=== PATIENT | female | born 1945 | race Caucasian/White ===

== ENCOUNTER 2016-06-30 15:27 | Outpatient (RCR) | payer MEDICARE, OTHER ==
--- OUTSIDE RECORDS SUMMARY | 2016-05-26 08:21 | XMS REPORT | Continuity of Care Document ---
Author Author [facility] Organization [facility] Address Unknown Phone Unavailable Care Team Providers Care Drive In Waiter/Waitress Name Role Phone Philipp Gonzalez PCP [phone] Source Comments Some departments are not documenting in the electronic medical record. If you do not see the information that you expected, contact Release of Information in the Health Information Management department at [phone] for further assistance in locating additional records.[facility] Active Allergies and Adverse Reactions Allergen Noted Date Severity Reactions Comments Lisinopril 09/12/2015 Low UNKNOWN Sulfa (Sulfonamide 09/12/2015 Low UNKNOWN Antibiotics) Current Medications Prescription Sig. Disp. Refills Start End Date Status Date valsartan (DIOVAN) 320 mg Take 320 mg by mouth Active tablet daily. polycarbophil (FIBERCON) Take 625 mg by mouth Active 625 mg tablet twice daily. metoprolol (LOPRESSOR) Take 100 mg by mouth Active 100 mg tablet twice daily. MULTIVITAMIN (MULTIPLE Take 1 Tab by mouth Active VITAMINS DAILY PO) daily. Lactobacillus rhamnosus Take 1 Cap by mouth daily Active GG (LACTOBACILLUS with breakfast. RHAMNOSUS (GG)) 15 billion cell cpSP cholecalciferol (VITAMIN Take 1,000 Units by mouth Active D-3) 1,000 units tablet daily. amLODIPine (NORVASC) 10 Take 10 mg by mouth Active mg tablet daily. aspirin EC 81 mg tablet Take 81 mg by mouth Active daily. calcium gluconate 1,000 mEq daily. Active dicyclomine (BENTYL) 10 Take 10 mg by mouth four Active mg capsule times daily. omega 0-ytm-obo-fish oil Take 3 Caps by mouth Active 300-1,000 mg capsule daily. pantoprazole DR Take 40 mg by mouth Active (PROTONIX) 40 mg tablet daily. simvastatin (ZOCOR) 20 mg Take 20 mg by mouth at Active tablet bedtime daily. buPROPion (WELLBUTRIN) 75 Take 75 mg by mouth twice Active mg tablet daily. Active Problems Problem Noted Date Tobacco abuse 09/17/2015 Lung mass Overview: PREM Dyspnea CAD (coronary artery disease) Essential hypertension Hyperlipidemia RBBB Social History Tobacco Use Types Packs/Day Years Used Date Current Every Day Smoker Cigarettes 0.5 Smokeless Tobacco: Never Used Last Filed Vital Signs Vital Sign Reading Time Taken Blood Pressure 155/71 11/20/2015 2:15 PM CDT Pulse 57 11/20/2015 2:15 PM CDT Temperature 36.5 C (97.7 F) 11/20/2015 10:57 AM CDT Respiratory Rate - - Height 1.702 m (5' 7.01") 10/31/2015 3:28 PM CDT Weight 71.668 kg (158 lb) 10/31/2015 3:28 PM CDT Body Mass Index 24.74 10/31/2015 3:28 PM CDT Oxygen Saturation 100% 11/20/2015 2:15 PM CDT Plan of Care Health Maintenance Due Date Last Done Comments Hepatitis C Screening 1945 Physical (Comprehensive) 01/16/1952 Exam Pertussis Vaccine 01/16/1956 Tetanus Vaccine 1962 Breast Cancer Screening 1985 Colorectal Cancer 1995 Screening Shingles Vaccine 2005 Osteoporosis Screening 2010 Prevnar/Pneumovax (#1) 2010 Influenza Vaccine 04/02/2016 Results from Last 3 Months Not on file
[2016-05-26 08:49] LABS: BASOPHILS % (AUTO) 0 % (0-10); EOSINOPHILS # (AUTO) 0.1 10^3/uL (0.0-0.3); EOSINOPHILS % (AUTO) 2 % (0-10); LYMPHOCYTES # (AUTO) 1.6 X 10^3 (1.0-4.0); LYMPHOCYTES % (AUTO) 30 % (12-44); MEAN CORPUSCULAR HEMOGLOBIN 32 PG (25-34); MEAN CORPUSCULAR HGB CONC 34 G/DL (32-36); MEAN CORPUSCULAR VOLUME 96 FL (80-99); MEAN PLATELET VOLUME 9.5 FL (7.4-10.4); MONOCYTES # (AUTO) 0.4 X 10^3 (0.0-1.0); MONOCYTES % (AUTO) 8 % (0-12); NEUTROPHILS # (AUTO) 3.2 X 10^3 (1.8-7.8); NEUTROPHILS % (AUTO) 61 % (42-75); PLATELET COUNT 271 10^3/uL (130-400); RED BLOOD COUNT 4.45 10^6/uL (4.35-5.85); WHITE BLOOD COUNT 5.3 10^3/uL (4.3-11.0)
[2016-05-26 09:28] LABS: ALBUMIN 3.9 G/DL (3.2-4.5); BILIRUBIN,TOTAL 0.2 MG/DL (0.1-1.0); CALCIUM 9.1 MG/DL (8.5-10.1); CREATININE SERUM 0.92 MG/DL (0.60-1.30); POTASSIUM 4.2 MMOL/L (3.6-5.0); TOTAL PROTEIN 6.3 G/DL (6.4-8.2)
[~2016-06-30 15:27] MED LIST: AMLO10TA82 PO; ASP81TEC PO; ASPI-624 PO; CALC1CAP8 PO; CALC390T PO; CHOL100011 PO; CHOL200018 PO; ESTR0.5T PO; ESTR1TAB24 PO; HYOS0.1216 PO; METO100T2 PO; MULT-358 PO; MULT-974 PO; OMEG1CAP51 PO; OMEG1CAP58 PO; OMEP20TA2 PO; PANT40TA PO; SIMV20TA3 PO; SUCR1TAB PO; SUSTENEX PO; VALS320T8 PO
== END 2016-08-24 | disposition home or self-care (01) ==
LOC: ONC 15:27
PROVIDERS: ATTEND Internal Medicine Hematology & Oncology
DX: C34.91 Malignant neoplasm of unspecified part of right bronchus or lung (principal); F17.210 Nicotine dependence, cigarettes, uncomplicated; I10 Essential (primary) hypertension; J44.9 Chronic obstructive pulmonary disease, unspecified
CPT/HCPCS: 36415; 80053; 85025; 99213

== ENCOUNTER → 2016-12-30 | Outpatient (CLI) | payer MEDICARE, OTHER ==
[~2016-12-30] MED LIST changes: +CATHETER FLUSH 10 ML SYR IV PRN; +IOHEXOL 350 MG/ML 100 ML (OMNIPAQUE 350) VIAL IV ONE; +NS 100 ML (IVPB) BAG IV ONE
--- NOTE | 2016-12-30 13:27 | Diagnostic Imaging Report ---
PROCEDURE: CT chest with contrast only. TECHNIQUE: Multiple contiguous axial images were obtained through the chest after administration of intravenous contrast. INDICATION: C34.10, upper lobe lung cancer. 75 mL of Omnipaque 350 is administered intravenously. Comparison exam of 06/29/16 is reviewed. FINDINGS: There is a 1 cm left upper lobe nodule which appears minimally larger compared to prior studies. The short axis measurement in the axial plane is 7 mm, similar to the prior exam; however, the craniocaudal measurement is 9 mm compared to 5 mm on the previous study. There is increased groundglass opacity around this lesion. Upper lobe predominant emphysema changes are seen. No new lung nodules or significant consolidation or mass. There is essentially stable borderline sized infracarinal lymph node measuring 1 cm and no significant hilar lymphadenopathy. No axillary lymphadenopathy. The thoracic aorta demonstrates normal caliber and enhancement. The central pulmonary arteries enhance normally. The heart size is near the upper limits of normal. There is a pectus excavatum deformity. Sections in the upper abdomen demonstrate no adrenal mass. The osseous structures demonstrate right convexity scoliosis and minimal degenerative changes. IMPRESSION: Suggestion of minimal enlargement in the left upper lobe nodule. There is also slight increase in the surrounding groundglass opacity. This could be from radiation changes if this patient had radiotherapy. Correlate with history. Dictated by: Dictated on workstation # [id number]
== END ==
LOC: RAD 07:28
PROVIDERS: ATTEND Internal Medicine Hematology & Oncology
DX: C34.12 Malignant neoplasm of upper lobe, left bronchus or lung (principal)
CPT/HCPCS: 71260

== ENCOUNTER 2017-01-05 08:10 | Outpatient (RCR) | payer MEDICARE, OTHER ==
[2016-11-24 09:02] LABS: BASOPHILS % (AUTO) 0 % (0-10); EOSINOPHILS # (AUTO) 0.1 10^3/uL (0.0-0.3); EOSINOPHILS % (AUTO) 2 % (0-10); LYMPHOCYTES # (AUTO) 1.7 X 10^3 (1.0-4.0); LYMPHOCYTES % (AUTO) 36 % (12-44); MEAN CORPUSCULAR HEMOGLOBIN 31 PG (25-34); MEAN CORPUSCULAR HGB CONC 33 G/DL (32-36); MEAN CORPUSCULAR VOLUME 95 FL (80-99); MEAN PLATELET VOLUME 10.1 FL (7.4-10.4); MONOCYTES # (AUTO) 0.5 X 10^3 (0.0-1.0); MONOCYTES % (AUTO) 10 % (0-12); NEUTROPHILS # (AUTO) 2.3 X 10^3 (1.8-7.8); NEUTROPHILS % (AUTO) 51 % (42-75); PLATELET COUNT 259 10^3/uL (130-400); RED BLOOD COUNT 4.72 10^6/uL (4.35-5.85); RED CELL DISTRIBUTION WIDTH 13.6 % (10.0-14.5); WHITE BLOOD COUNT 4.5 10^3/uL (4.3-11.0)
[2016-11-24 09:21] LABS: ALANINE AMINOTRANSFERASE 15 U/L (0-55); ALBUMIN 3.9 G/DL (3.2-4.5); ANION GAP 11 MMOL/L (5-14); ASPARTATE AMINO TRANSFERASE 20 U/L (5-34); BILIRUBIN,TOTAL 0.3 MG/DL (0.1-1.0); BLOOD UREA NITROGEN 20 MG/DL (7-18); BUN/CREATININE RATIO 25; CALCIUM 9.4 MG/DL (8.5-10.1); CARBON DIOXIDE 26 MMOL/L (21-32); CHLORIDE 105 MMOL/L (98-107); GFR ESTIMATED > 60; GLUCOSE 167 MG/DL (70-105); POTASSIUM 3.8 MMOL/L (3.6-5.0); SODIUM 142 MMOL/L (135-145); TOTAL PROTEIN 6.3 G/DL (6.4-8.2)
[~2017-01-05 08:10] MED LIST changes: -CATHETER FLUSH 10 ML SYR IV PRN; -IOHEXOL 350 MG/ML 100 ML (OMNIPAQUE 350) VIAL IV ONE; -NS 100 ML (IVPB) BAG IV ONE
== END 2017-02-22 | disposition home or self-care (01) ==
LOC: ONC 08:10
PROVIDERS: ATTEND Internal Medicine Hematology & Oncology
DX: C34.91 Malignant neoplasm of unspecified part of right bronchus or lung (principal); F17.210 Nicotine dependence, cigarettes, uncomplicated; I10 Essential (primary) hypertension; J44.9 Chronic obstructive pulmonary disease, unspecified
CPT/HCPCS: 80053; 82378; 85025; 99213

== ENCOUNTER → 2017-01-28 | Outpatient (CLI) | payer MEDICARE, OTHER ==
--- NOTE | 2017-01-28 19:33 | Diagnostic Imaging Report ---
Bilateral screening mammogram The current study was also evaluated with a Computer Aided Detection (CAD) system. INDICATION: Screening. No current complaints stated on the questionnaire. COMPARISON: 01/14/2016. FINDINGS: The breasts are composed of scattered fibroglandular densities. There are scattered benign-appearing calcifications. Allowing for technique and positional differences, no suspicious change is seen. IMPRESSION: No significant change. ACR BI-RADS Category 2: Benign findings. Result letter will be mailed to the patient. Note: At least 10% of breast cancer is not imaged by mammography. Dictated by: Dictated on workstation # [id number]
== END ==
LOC: RAD 07:19
PROVIDERS: ATTEND Nurse Practitioner Family
DX: Z12.31 Encounter for screening mammogram for malignant neoplasm of breast (principal)
CPT/HCPCS: 77067

== ENCOUNTER → 2017-03-23 | Outpatient (CLI) | payer MEDICARE, OTHER ==
[~2017-03-23] MED LIST changes: +CATHETER FLUSH 10 ML SYR IV PRN; +IOHEXOL 350 MG/ML 100 ML (OMNIPAQUE 350) VIAL IV ONE; +NS 100 ML (IVPB) BAG IV ONE
--- NOTE | 2017-03-23 12:50 | Diagnostic Imaging Report ---
PROCEDURE: CT chest with contrast only. TECHNIQUE: Multiple contiguous axial images were obtained through the chest after administration of intravenous contrast. INDICATION: Lung CA. FINDINGS: The previous CT chest exam of 12/30/2016 noted a 1.0 x 0.7 cm noncalcified nodule in the left upper lung. On this exam, that nodule now measures 1.5 x 1.3 cm. The increase in the size of this nodule does suggest that it is neoplastic in nature. The ground-glass density adjacent to the nodule seen previously is again visualized and not significantly changed. The lungs are otherwise clear. There is no new pulmonary nodule identified otherwise, and there is no sign of failure, pneumonia, or pleural effusion. The previous study also identified a 1 cm subcarinal lymph node. That finding is no different. There is no mediastinal or hilar adenopathy noted otherwise. The thyroid gland is unremarkable. The heart is stable in size. The aorta is not abnormally dilated. There is no defect within the pulmonary arteries to indicate a pulmonary embolus. There is no obvious breast mass. The sections through the upper abdomen fail to show any sign of an acute abnormality. The liver seems homogeneous. The bone windows again show multiple areas of sclerosis throughout the thoracic spine. These findings are probably degenerative in nature as they seem quite similar to the prior study. There is a pectus excavatum deformity. IMPRESSION: 1. The nodule in the left upper lung seen previously has increased in size. Consequently, this nodule should be considered neoplastic until proven otherwise. If further imaging is desired, then PET/CT would be recommended. 2. The overall appearance of the chest and upper abdomen is otherwise stable. There is no acute abnormality identified. 3. The areas of sclerosis involving the thoracic spine are probably degenerative in nature. If there is clinical concern regarding metastatic skeletal disease, then MRI would be recommended for additional study. Dictated by: Dictated on workstation # [id number]
== END ==
LOC: RAD 09:32
PROVIDERS: ATTEND Internal Medicine Hematology & Oncology
DX: R91.1 Solitary pulmonary nodule (principal); R93.7 Abnormal findings on diagnostic imaging of other parts of musculoskeletal system; C34.10 Malignant neoplasm of upper lobe, unspecified bronchus or lung
CPT/HCPCS: 71260

== ENCOUNTER 2017-04-27 08:24 | Outpatient (RCR) | payer MEDICARE, OTHER ==
[2017-03-23 09:15] LABS: BASOPHILS % (AUTO) 1 % (0-10); EOSINOPHILS # (AUTO) 0.1 10^3/uL (0.0-0.3); EOSINOPHILS % (AUTO) 2 % (0-10); LYMPHOCYTES # (AUTO) 1.8 X 10^3 (1.0-4.0); LYMPHOCYTES % (AUTO) 34 % (12-44); MEAN CORPUSCULAR HEMOGLOBIN 31 PG (25-34); MEAN CORPUSCULAR HGB CONC 33 G/DL (32-36); MEAN CORPUSCULAR VOLUME 95 FL (80-99); MEAN PLATELET VOLUME 9.4 FL (7.4-10.4); MONOCYTES # (AUTO) 0.4 X 10^3 (0.0-1.0); MONOCYTES % (AUTO) 8 % (0-12); NEUTROPHILS # (AUTO) 2.8 X 10^3 (1.8-7.8); NEUTROPHILS % (AUTO) 55 % (42-75); PLATELET COUNT 272 10^3/uL (130-400); RED BLOOD COUNT 4.44 10^6/uL (4.35-5.85); RED CELL DISTRIBUTION WIDTH 13.4 % (10.0-14.5); WHITE BLOOD COUNT 5.1 10^3/uL (4.3-11.0)
[2017-03-23 09:49] LABS: ALANINE AMINOTRANSFERASE 17 U/L (0-55); ALBUMIN 3.8 GM/DL (3.2-4.5); ANION GAP 8 MMOL/L (5-14); ASPARTATE AMINO TRANSFERASE 22 U/L (5-34); BILIRUBIN,TOTAL 0.4 MG/DL (0.1-1.0); BLOOD UREA NITROGEN 22 MG/DL (7-18); BUN/CREATININE RATIO 27; CALCIUM 9.7 MG/DL (8.5-10.1); CARBON DIOXIDE 26 MMOL/L (21-32); CHLORIDE 107 MMOL/L (98-107); CREATININE SERUM 0.81 MG/DL (0.60-1.30); GFR ESTIMATED > 60; GLUCOSE 124 MG/DL (70-105); POTASSIUM 4.6 MMOL/L (3.6-5.0); SODIUM 141 MMOL/L (135-145); TOTAL PROTEIN 6.4 GM/DL (6.4-8.2)
[~2017-04-27 08:24] MED LIST changes: -CATHETER FLUSH 10 ML SYR IV PRN; -IOHEXOL 350 MG/ML 100 ML (OMNIPAQUE 350) VIAL IV ONE; -NS 100 ML (IVPB) BAG IV ONE
== END 2017-05-01 | disposition home or self-care (01) ==
LOC: ONC 08:24
PROVIDERS: ATTEND Internal Medicine Hematology & Oncology
DX: C34.91 Malignant neoplasm of unspecified part of right bronchus or lung (principal); I10 Essential (primary) hypertension; J44.9 Chronic obstructive pulmonary disease, unspecified; F17.210 Nicotine dependence, cigarettes, uncomplicated; Z79.899 Other long term (current) drug therapy
CPT/HCPCS: 36415; 80053; 85025; 99213

== ENCOUNTER 2017-06-03 08:47 | Outpatient (RCR) | payer MEDICARE, OTHER ==
[2017-06-03 09:02] LABS: BASOPHILS % (AUTO) 0 % (0-10); EOSINOPHILS # (AUTO) 0.1 10^3/uL (0.0-0.3); EOSINOPHILS % (AUTO) 2 % (0-10); HEMATOCRIT 42 % (35-52); LYMPHOCYTES # (AUTO) 1.1 X 10^3 (1.0-4.0); LYMPHOCYTES % (AUTO) 22 % (12-44); MEAN CORPUSCULAR HEMOGLOBIN 32 PG (25-34); MEAN CORPUSCULAR HGB CONC 34 G/DL (32-36); MEAN CORPUSCULAR VOLUME 95 FL (80-99); MONOCYTES # (AUTO) 0.3 X 10^3 (0.0-1.0); MONOCYTES % (AUTO) 6 % (0-12); NEUTROPHILS # (AUTO) 3.5 X 10^3 (1.8-7.8); NEUTROPHILS % (AUTO) 70 % (42-75); PLATELET COUNT 277 10^3/uL (130-400); RED BLOOD COUNT 4.39 10^6/uL (4.35-5.85); RED CELL DISTRIBUTION WIDTH 13.5 % (10.0-14.5)
[2017-06-03 09:24] LABS: ALBUMIN 3.9 GM/DL (3.2-4.5); BILIRUBIN,TOTAL 0.5 MG/DL (0.1-1.0); CALCIUM 9.3 MG/DL (8.5-10.1); CREATININE SERUM 0.92 MG/DL (0.60-1.30); POTASSIUM 4.1 MMOL/L (3.6-5.0); TOTAL PROTEIN 6.5 GM/DL (6.4-8.2)
[2017-08-10] MEDS ORDERED: GLUC-116 PO (07:41)
[2017-08-10] MEDS ORDERED: L.AC1CAP6 PO (07:41)
[2017-08-10] MEDS ORDERED: ATOR10TA PO (07:41)
[2017-08-10] MEDS ORDERED: BUPR-168 PO (07:41)
[2017-08-10] MEDS ORDERED: DICY10CA12 PO (07:41)
== END 2017-09-01 | disposition home or self-care (01) ==
LOC: ONC 08:47
PROVIDERS: ATTEND Internal Medicine Hematology & Oncology
DX: C34.12 Malignant neoplasm of upper lobe, left bronchus or lung (principal); R91.1 Solitary pulmonary nodule; J44.9 Chronic obstructive pulmonary disease, unspecified; I10 Essential (primary) hypertension; I25.10 Atherosclerotic heart disease of native coronary artery without angina pectoris; E78.5 Hyperlipidemia, unspecified; I45.10 Unspecified right bundle-branch block; F17.210 Nicotine dependence, cigarettes, uncomplicated; Z79.82 Long term (current) use of aspirin; Z79.899 Other long term (current) drug therapy
CPT/HCPCS: 36415; 80053; 82378; 85025; 99213

== ENCOUNTER 2017-08-10 06:47 | Day surgery (SDC) | payer MEDICARE, OTHER ==
[~2017-08-10] VITALS: Ht 170.2 cm; Wt 69.4 kg
[2017-08-10] VITALS (11 sets, daily range): BP systolic 130–150; BP diastolic 63–82
[2017-08-10] MEDS ORDERED: LIDOCAINE 1% INJ 50 ML (XYLOCAINE) VIAL ONE (06:51)
[2017-08-10] MEDS ORDERED: NS IV 1000 ML 1,000 ML ONE (06:51)
[2017-08-10] MEDS ORDERED: HEParin (CATH LAB) 2,000 ML IV ONE (06:51)
--- OUTSIDE RECORDS SUMMARY | 2017-08-10 06:53 | XMS REPORT | Continuity of Care Document ---
Author Author [facility] Organization [facility] Address Unknown Phone Unavailable Care Team Providers Care Visitor Services Coordinator Name Role Phone [employer] Unavailable Unavailable Problems Medications Allergies, Adverse Reactions, Alerts Immunizations Results Vital Signs Encounters Location Location Details Encounter Type Encounter Number Reason For Visit Attending Provider ADM Date DC Date Status Source OUTPATIENT [id number] DONNY DAWN 11/20/20152015 Active [facility] OUTPATIENT [id number] RENETTA GONZALES 05/27/2017 Active [facility] OUTPATIENT [id number] 06/15/2017 Active [facility] INPATIENT [id number] RENETTA JANET 06/16/2017 Active [facility] EMERGENCY [id number] CHAD TWYLA 06/21/20172016 Active [facility] OUTPATIENT [id number] LEO MEEK 07/08/2017 07/08/2017 Active [facility] OUTPATIENT [id number] NICA ALVA 07/29/2017 Active [facility] SPECIMEN [id number] 07/30/2017 07/30/2017 Active [facility] CA SERIES [id number] JEFRY REDD 08/05/2017 08/05/2017 Active [facility] SPECIMEN [id number] RENETTA GONZALES 08/09/2017 Active [facility] SPECIMEN Active [facility] Procedures Plan of Care Social History Assessment and Plan Family History Advance Directives Functional Status
--- OUTSIDE RECORDS SUMMARY | 2017-08-10 06:54 | XMS REPORT | Encounter Summary ---
Author Author [facility] Organization [facility] Address Unknown Phone Unavailable Care Team Providers Care Stiff Straw Hat Washer Name Role Phone PCP Unavailable Encounter Details Date Type Department Care Team Description 07/30/2017 [facility] Ajit Puente MD Malignant neoplasm of Encounter [address] other [place] [address] [address] [place] [address] [phone] Social History Tobacco Use Types Packs/Day Years Used Date Current Every Day Smoker Cigarettes 0.5 Smokeless Tobacco: Never Used Alcohol Use Drinks/Week oz/Week Comments No Sex Assigned at Date Recorded Not on file as of this encounter Functional Status Functional Status Response Date of Assessment Does the patient have a hearing impairment: No 06/21/2017 as of this encounter Medications at Time of Discharge Medication Sig. Disp. Refills Start Date End Date acetaminophen (TYLENOL) Take 2 tablets by mouth 0 06/18/2017 500 mg tablet every 6 hours while awake. Max of 4,000 mg of acetaminophen in 24 hours. amLODIPine (NORVASC) 10 Take 10 mg by mouth daily mg tablet after lunch. aspirin EC 81 mg tablet Take 81 mg by mouth daily. atorvastatin (LIPITOR) 10 Take 10 mg by mouth every mg tablet 48 hours. buPROPion SR(+) Take only one tablet in 180 tablet 3 06/18/2017 (WELLBUTRIN-SR) 150 mg the AM on 06/19/17, then tabletIndications: start taking one tablet SMOKING CESSATION twice daily on 06/20/17 Indications: SMOKING CESSATION calcium carbonate/vitamin Take 1 tablet by mouth D-3 (OSCAL-500+D) 1250 daily. Calcium Carb mg/200 unit tablet 1250mg delivers 500mg elemental Ca cholecalciferol (VITAMIN Take 1,000 Units by mouth D-3) 1,000 units tablet daily. dicyclomine (BENTYL) 10 Take 10 mg by mouth three mg capsule times daily as needed. lactobacillus rhamnosus Take 1 capsule by mouth GG (LACTOBACILLUS as directed twice daily RHAMNOSUS (GG)) 15 with meals. billion cell cpSP capsule metoprolol (LOPRESSOR) Take 100 mg by mouth 100 mg tablet twice daily. nicotine polacrilex Place 1 lozenge inside 100 tablet 0 06/18/2017 (COMMIT) 4 mg lozenge cheek (side of mouth) as Needed. omega 1-rvc-kpr-fish oil Take 3 Caps by mouth 300-1,000 mg capsule daily. pantoprazole DR Take 40 mg by mouth (PROTONIX) 40 mg tablet daily. Simethicone 125 mg cap Take 1 capsule by mouth twice daily. valsartan (DIOVAN) 320 mg Take 320 mg by mouth tablet daily. vitamin E 100 unit Take 100 Units by mouth capsule daily. vitamins, multiple tablet Take 1 tablet by mouth daily. as of this encounter Plan of Treatment Date Type Specialty Care Team Description 07/08/2017 Procedure Pass Cardiothoracic Surgery Name Priority Associated Diagnoses Date/Time BRAF SINGLE NGS Malignant neoplasm of 07/28/2017 1:55 PM CIRCULAR KNIFE CUTTER MACHINE unspecified part of unspecified bronchus or lung (HCC) EGFR SINGLE NGS Malignant neoplasm of 07/28/2017 1:55 PM CIRCULAR KNIFE CUTTER MACHINE unspecified part of unspecified bronchus or lung (HCC) KRAS NGS EXONS 2, 3 & 4 Malignant neoplasm of 07/28/2017 1:55 PM CIRCULAR KNIFE CUTTER MACHINE unspecified part of unspecified bronchus or lung (HCC) RNA LUNG PANEL Malignant neoplasm of 07/28/2017 1:55 PM CIRCULAR KNIFE CUTTER MACHINE unspecified part of unspecified bronchus or lung (HCC) as of this encounter Visit Diagnoses Diagnosis Malignant neoplasm of unspecified part of unspecified bronchus or lung (HCC) in this encounter Admitting Diagnoses Diagnosis Malignant neoplasm of other parts of bronchus or lung in this encounter
--- OUTSIDE RECORDS SUMMARY | 2017-08-10 06:54 | XMS REPORT | Encounter Summary ---
Author Author [facility] Organization [facility] Address Unknown Phone Unavailable Care Team Providers Care Commercial Relationship Manager Name Role Phone PCP Unavailable Encounter Details Date Type Department Care Team Description 08/09/2017 [facility] Daniel Khan, Malignant neoplasm of Encounter [address] [place] [address] [address] [facility] unspecified bronchus or [place] [address] lung (HCC) [place], [place] [id number] Social History Tobacco Use Types Packs/Day Years Used Date Current Some Day Smoker Cigarettes 0.25 Smokeless Tobacco: Never Used Comments: started at 19yo up to 2p/day . Alcohol Use Drinks/Week oz/Week Comments No Sex Assigned at Date Recorded Not on file as of this encounter Functional Status Functional Status Response Date of Assessment Does the patient have a hearing impairment: No 06/21/2017 as of this encounter Plan of Treatment Date Type Specialty Care Team Description 07/08/2017 Procedure Pass Cardiothoracic Surgery Name Priority Associated Diagnoses Date/Time CHROMOSOMES FISH DNA PROBE 08/09/2017 10:00 AM MONUMENT ERECTOR CHROMOSOMES FISH DNA PROBE 08/09/2017 10:00 AM MONUMENT ERECTOR Name Priority Associated Diagnoses Order Schedule CHROMOSOMES FISH DNA PROBE ONE TIME for 1 Occurrences starting 08/09/2017 CHROMOSOMES FISH DNA PROBE ONE TIME for 1 Occurrences starting 08/09/2017 as of this encounter Visit Diagnoses Not on filein this encounter Admitting Diagnoses Diagnosis Malignant neoplasm of unspecified part of unspecified bronchus or lung (HCC) - Poorly differentiated adenocarcinoma Malignant neoplasm of unspecified part of unspecified bronchus or lung in this encounter
--- OUTSIDE RECORDS SUMMARY | 2017-08-10 06:54 | XMS REPORT | Clinical Summary ---
Author Author [facility] Organization [facility] Address Unknown Phone Unavailable Care Team Providers Care Planning Management It Specialist Name Role Phone PCP Unavailable Source Comments Some departments are not documenting in the electronic medical record. If you do not see the information that you expected, contact Release of Information in the Health Information Management department at [phone] for further assistance in locating additional records.[facility] Allergies Active Allergy Reactions Severity Noted Date Comments Sulfa (Sulfonamide HIVES Medium 09/12/2015 Antibiotics) Lisinopril COUGH Low 09/12/2015 Current Medications Prescription Sig. Disp. Refills Start End Date Status Date valsartan (DIOVAN) 320 mg Take 320 mg by mouth Active tablet daily. metoprolol (LOPRESSOR) Take 100 mg by mouth Active 100 mg tablet twice daily. cholecalciferol (VITAMIN Take 1,000 Units by mouth Active D-3) 1,000 units tablet daily. amLODIPine (NORVASC) 10 Take 10 mg by mouth daily Active mg tablet after lunch. aspirin EC 81 mg tablet Take 81 mg by mouth Active daily. dicyclomine (BENTYL) 10 Take 10 mg by mouth three Active mg capsule times daily as needed. omega 3-qkt-lrr-fish oil Take 3 Caps by mouth Active 300-1,000 mg capsule daily. pantoprazole DR Take 40 mg by mouth Active (PROTONIX) 40 mg tablet daily. atorvastatin (LIPITOR) 10 Take 10 mg by mouth every Active mg tablet 48 hours. vitamins, multiple tablet Take 1 tablet by mouth Active daily. lactobacillus rhamnosus Take 1 capsule by mouth Active GG (LACTOBACILLUS as directed twice daily RHAMNOSUS (GG)) 15 with meals. billion cell cpSP capsule vitamin E 100 unit Take 100 Units by mouth Active capsule daily. calcium carbonate/vitamin Take 1 tablet by mouth Active D-3 (OSCAL-500+D) 1250 daily. Calcium Carb mg/200 unit tablet 1250mg delivers 500mg elemental Ca Simethicone 125 mg cap Take 1 capsule by mouth Active twice daily. nicotine polacrilex Place 1 lozenge inside 100 tablet 0 06/18/20 Active (COMMIT) 4 mg lozenge cheek (side of mouth) as 17 Needed. acetaminophen (TYLENOL) Take 2 tablets by mouth 0 06/18/20 Active 500 mg tablet every 6 hours while 17 awake. Max of 4,000 mg of acetaminophen in 24 hours. 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 Features of small cell lung carcinoma are not identified 02/04/16 - 02/13/16 - SBRT Radiation tx to Left lung, done in [place], [place] 03/16/16 - CT scans, done in [place] 06/29/16 - CT chest 12/30/16 - CT chest 03/23/17 - CT chest 06/01/17 - PET scan 06/16/17 - VATS PREM lobectomy, Path: Poorly differentiated adenocarcinoma, solid pattern, with neuroendocrine differentiation. PDL1 negative L ast Assessment & Plan: We reviewed the patient's history, CT scans and pathology. She has had a left upper lobe adenocarcinoma which was initially treated with S/P RT in 2015 and recently experienced local recurrence. She was seen by Dr. Khan who recommended surgery. She underwent a left upper lobectomy in June 2017. Pathology from her recent lobectomy showed poorly differentiated adenocarcinoma with focal neuroendocrine differentiation. Her primary tumor was 1.8 cm in largest dimension and she had no positive lymph nodes. After discussion with pathology, it emerged that the neuroendocrine complement was fairly minimal. The patient has stage IA disease. Given the small amount of neuroendocrine complement and her pathology, we believe it is reasonable to continue observation and hold adjuvant therapy. She will be seeing Dr. Khan in December [address] scans and we will have her return to our clinic in May 2018 with a chest x-ray. Dyspnea CAD (coronary artery disease) Essential hypertension Hyperlipidemia RBBB Resolved Problems Problem Noted Date Resolved Date Preoperative evaluation to rule out surgical contraindication 05/28/2017 07/09/2017 Encounters Date Type Specialty Care Team Description 08/09/2017 Hospital Lab Daniel Khan, Malignant neoplasm of Encounter MD unspecified part of unspecified bronchus or lung (HCC) 08/05/2017 Office Visit Oncology Daniel Khan, Primary adenocarcinoma of lung, unspecified Ajit Puente MD laterality (HCC);Adenocarcinoma, lung, left (HCC) 07/30/2017 Hospital Lab Ajit Puente MD Malignant neoplasm of Encounter other parts of bronchus or lung 07/28/2017 Telephone Oncology Ajit Puente MD Navigation Assessment 07/20/2017 Patient Profile Cardiology Bonnie Humphrey New Patient ( Hosp f\\u - A-Fib while inpatient ) 07/20/2017 Documentation Cardiology Bonnie Humphrey Records Request (Teresa Gonzalez MD) 07/08/2017 Office Visit Cardiothoracic Surgery Daniel Khan, Primary adenocarcinoma of MD lung, unspecified laterality (HCC) (Primary Dx);Surgery follow-up 07/08/2017 [facility] Radiology Elena Guerrero, ERISA ATTORNEY Encounter 06/21/2017 Emergency Emergency Medicine Sivakumar Camilo MD 06/18/2017 Pharmacy Visit 06/16/2017 [facility] Daniel Khan, CAD (coronary artery - Encounter MD disease) 06/18/2017 06/16/2017 Procedure Pass 06/16/2017 Surgery Daniel Khan, LEFT VIDEO ASSISTED THORACOSCOPY, LEFT UPPER LOBECTOMY 06/15/2017 [facility] Daniel Khan, Encounter 06/15/2017 PAC Office Anesthesiology Daniel Khan, Encounter for blood Visit MD typing (Primary Dx);Lung mass;Neuroendocrine carcinoma of lung (HCC) 06/15/2017 Anesthesia Cathy Yoo, SRNA Event 06/08/2017 Pre-Admit Cardiothoracic Surgery Daniel Khan, Lung mass (Primary Orders Only MD Dx);Neuroendocrine carcinoma of lung (HCC) 06/07/2017 Prep for Case Cardiothoracic Surgery Daniel Khan MD 06/07/2017 Prep for Case Cardiothoracic Surgery Daniel Khan MD 06/07/2017 Orders Only Cardiothoracic Surgery Anuja Bacon RN Lung mass (Primary Dx) 06/03/2017 Ancillary Radiology Outpatient, Radiologist Diagnosis unknown Orders 06/01/2017 Hospital Radiology Encounter 05/27/2017 Office Visit Cardiothoracic Surgery Daniel Khan, Neuroendocrine carcinoma MD of lung (HCC) (Primary Dx);Lung mass;Preoperative evaluation to rule out surgical contraindication from Last 3 Months Immunizations Name Dates Previously Given Next Due Flu Vaccine=>65 YO 06/17/2017 High-Dose (PF) Family History Medical History Relation Name Comments Cancer-Lung Brother Hypertension Brother Cancer Brother hodgkin's disease Hypertension Father Cancer-Ovarian Maternal Aunt Hypertension Maternal Aunt Heart Disease Maternal Grandfather Diabetes Maternal Grandmother Heart Disease Maternal Grandmother Hypertension Maternal Grandmother Heart Disease Maternal Uncle Hypertension Maternal Uncle Heart Disease Mother Hypertension Mother Hypertension Sister Relation Name Status Comments Brother Brother Father Maternal Aunt Maternal Grandfather Maternal Grandmother Maternal Uncle Mother Sister Social History Tobacco Use Types Packs/Day Years Used Date Current Some Day Smoker Cigarettes 0.25 Smokeless Tobacco: Never Used Comments: started at 19yo up to 2p/day . Alcohol Use Drinks/Week oz/Week Comments No Sex Assigned at Date Recorded Not on file Last Filed Vital Signs Vital Sign Reading Time Taken Blood Pressure 180/81 08/05/2017 1:27 PM HOME HEALTH SPEECH THERAPIST Pulse 66 08/05/2017 1:27 PM HOME HEALTH SPEECH THERAPIST Temperature 36.7 C (98 F) 08/05/2017 1:27 PM HOME HEALTH SPEECH THERAPIST Respiratory Rate 18 08/05/2017 1:27 PM HOME HEALTH SPEECH THERAPIST Oxygen Saturation 97% 08/05/2017 1:27 PM HOME HEALTH SPEECH THERAPIST Inhaled Oxygen - - Concentration Weight 78.5 kg (173 lb) 08/05/2017 1:27 PM HOME HEALTH SPEECH THERAPIST Height 167.6 cm (5' 6") 08/05/2017 1:27 PM HOME HEALTH SPEECH THERAPIST Body Mass Index 27.92 08/05/2017 1:27 PM HOME HEALTH SPEECH THERAPIST Plan of Treatment Date Type Specialty Care Team Description 07/08/2017 Procedure Pass Cardiothoracic Surgery Health Maintenance Due Date Last Done Comments HEPATITIS C SCREENING 1945 PHYSICAL (COMPREHENSIVE) 01/16/1952 EXAM PERTUSSIS VACCINE 01/16/1956 TETANUS VACCINE 1962 BREAST CANCER SCREENING 1985 COLORECTAL CANCER 1995 SCREENING SHINGLES VACCINE 2005 OSTEOPOROSIS SCREENING 2010 PREVNAR/PNEUMOVAX (#1) 2010 INFLUENZA VACCINE Completed 06/17/2017 Procedures Procedure Name Priority Date/Time Associated Diagnosis Comments TELEMETRY STRIPS-SCAN 07/07/2017 Results for this 1:53 PM HOME HEALTH SPEECH THERAPIST procedure are in the results section. ECG-SCAN 06/30/2017 Results for this 10:36 AM HOME HEALTH SPEECH THERAPIST procedure are in the results section. ECG-SCAN 06/28/2017 Results for this 7:45 AM HOME HEALTH SPEECH THERAPIST procedure are in the results section. ECG-SCAN 06/28/2017 Results for this 7:44 AM HOME HEALTH SPEECH THERAPIST procedure are in the results section. ECG-SCAN 06/21/2017 Results for this 9:40 AM HOME HEALTH SPEECH THERAPIST procedure are in the results section. ECG-SCAN 06/19/2017 Results for this 8:00 AM HOME HEALTH SPEECH THERAPIST procedure are in the results section. ANESTHESIA ARTERIAL LINE Routine 06/16/2017 Results for this INSERTION 11:07 AM HOME HEALTH SPEECH THERAPIST procedure are in the results section. from Last 3 Months Results * CHEST 2 VIEWS (07/08/2017 10:18 AM) Only the most recent of 2 results within the time period is included. Specimen Performing Laboratory [facility] RESULTS Impressions Improved aeration of the left lung with mild persistent atelectasis or scarring in the left lung base. Mild blunting of the left costophrenic angle, likely scarring or small residual pleural effusion. Finalized by FLORIN ROGERS M.D. on 07/08/2017 11:19 AM. Dictated by FLORIN ROGERS M.D. on 07/08/2017 11:16 AM. Narrative CHEST 2 VIEWS . Clinical history: s/p left vat. Lung mass. Comparison: Chest radiograph 06/21/2017 . Findings: The heart size and pulmonary vascularity are within normal limits. Postoperative changes are again seen within the left lung. There has been improved aeration of the left lung, with mild persistent atelectasis or scarring within the left lung base. There is mild blunting of the posterior left costophrenic angle, which may reflect a small residual pleural effusion or scarring. No pneumothorax is seen. . Procedure Note Interface, Radiant Results - 07/08/2017 11:22 AM HOME HEALTH SPEECH THERAPIST CHEST 2 VIEWS . Clinical history: s/p left vat. Lung mass. Comparison: Chest radiograph 06/21/2017 . Findings: The heart size and pulmonary vascularity are within normal limits. Postoperative changes are again seen within the left lung. There has been improved aeration of the left lung, with mild persistent atelectasis or scarring within the left lung base. There is mild blunting of the posterior left costophrenic angle, which may reflect a small residual pleural effusion or scarring. No pneumothorax is seen. . IMPRESSION Improved aeration of the left lung with mild persistent atelectasis or scarring in the left lung base. Mild blunting of the left costophrenic angle, likely scarring or small residual pleural effusion. Finalized by FLORIN ROGERS M.D. on 07/08/2017 11:19 AM. Dictated by FLORIN ROGERS M.D. on 07/08/2017 11:16 AM. * TELEMETRY STRIPS-SCAN (07/07/2017 1:53 PM) Narrative Ordered by an unspecified provider. * PATHOLOGY INTEROPERATIVE REPORT SCAN (07/05/2017 3:05 PM) Narrative Ordered by an unspecified provider. * ECG-SCAN (06/30/2017 10:36 AM) Narrative Ordered by an unspecified provider. * ECG-SCAN (06/28/2017 7:45 AM) Narrative Ordered by an unspecified provider. * ECG-SCAN (06/28/2017 7:44 AM) Narrative Ordered by an unspecified provider. * UA REFLEX CULTURE LABEL (06/21/2017 11:16 AM) Component Value Ref Range UA Reflex Culture LAB LABEL Specimen Performing Laboratory Urine MAIN [facility] [address] [place] [address] * URINALYSIS MICROSCOPIC REFLEX TO CULTURE (06/21/2017 11:16 AM) Component Value Ref Range WBCs,UA 0-2 0 - 2 /HPF RBCs,UA 0-2 0 - 3 /HPF Comment,UA Urine submitted for reflex culture if criteria are met:WBC>10, positive nitrite and/or >=1+ leukocyte esterase. If quantity is not sufficient, an addendum will follow. Bacteria,UA FEW (A) NEG-NEG Squamous Epithelial Cells 2-5 0 - 5 Specimen Performing Laboratory Urine [facility] [address] [place] [address] * URINALYSIS DIPSTICK REFLEX TO CULTURE (06/21/2017 11:16 AM) Component Value Ref Range Color,UA YELLOW Turbidity,UA 1+ (A) CLEAR-CLEAR Specific [place]-Urine 1.016 1.003 - 1.035 pH,UA 6.0 5.0 - 8.0 Protein,UA NEG NEG-NEG Glucose,UA NEG NEG-NEG Ketones,UA NEG NEG-NEG Bilirubin,UA NEG NEG-NEG Blood,UA NEG NEG-NEG Urobilinogen,UA NORMAL NORM-NORMAL Nitrite,UA NEG NEG-NEG Leukocytes,UA NEG NEG-NEG Urine Ascorbic Acid, UA NEG NEG-NEG Specimen Performing Laboratory Urine [facility] [address] [place] [address] * CHEST SINGLE VIEW (06/21/2017 10:28 AM) Only the most recent of 3 results within the time period is included. Specimen Performing Laboratory [facility] RESULTS Impressions Decreasing left pleural effusion. Unchanged partial atelectasis left lower lobe. Emphysema of the left abdominal wall. Finalized by Shukri Killian M.D. on 06/21/2017 10:50 AM. Dictated by Shukri Killian M.D. on 06/21/2017 10:48 AM. Narrative CHEST SINGLE VIEW History: CHILLS. Technique: Single portable AP upright view of the chest was obtained. Comparison: Comparison is made to an examination of 06/18/2017.. Findings: Cardiac size remains normal. There is no vascular congestion. No acute interstitial or alveolar opacities are identified. There has been a decrease in the size of the left pleural effusion. Persistent zones of atelectasis in the left lower lobe are noted. No significant pneumothorax is identified. Atherosclerotic calcifications of the aortic arch are seen. There is persistent subcutaneous emphysema of the left abdominal wall. Procedure Note Interface, Radiant Results - 06/21/2017 10:53 AM HOME HEALTH SPEECH THERAPIST CHEST SINGLE VIEW History: CHILLS. Technique: Single portable AP upright view of the chest was obtained. Comparison: Comparison is made to an examination of 06/18/2017.. Findings: Cardiac size remains normal. There is no vascular congestion. No acute interstitial or alveolar opacities are identified. There has been a decrease in the size of the left pleural effusion. Persistent zones of atelectasis in the left lower lobe are noted. No significant pneumothorax is identified. Atherosclerotic calcifications of the aortic arch are seen. There is persistent subcutaneous emphysema of the left abdominal wall. IMPRESSION Decreasing left pleural effusion. Unchanged partial atelectasis left lower lobe. Emphysema of the left abdominal wall. Finalized by Shukri Killian M.D. on 06/21/2017 10:50 AM. Dictated by Shukri Killian M.D. on 06/21/2017 10:48 AM. * POC TROPONIN (06/21/2017 10:07 AM) Component Value Ref Range Lcpadxvp-C-EVC 0.01 0.00 - 0.05 NG/ML Specimen Performing Laboratory MAIN LAB [address] [place] [address] * TSH WITH FREE T4 REFLEX (06/21/2017 9:59 AM) Component Value Ref Range TSH 1.311 0.35 - 5.00 MCU/ML Specimen Performing Laboratory Blood MAIN [facility] [address] [place] [address] * CBC AND DIFF (06/21/2017 9:59 AM) Component Value Ref Range White Blood Cells 6.0 4.5 - 11.0 K/UL RBC 4.86 4.0 - 5.0 M/UL Hemoglobin 15.1 (H) 12.0 - 15.0 GM/DL Hematocrit 44.9 36 - 45 % MCV 92.4 80 - 100 FL MCH 31.0 26 - 34 PG MCHC 33.6 32.0 - 36.0 G/DL RDW 13.8 11 - 15 % Platelet Count 336 150 - 400 K/UL MPV 8.0 7 - 11 FL Neutrophils 71 41 - 77 % Lymphocytes 18 (L) 24 - 44 % Monocytes 8 4 - 12 % Eosinophils 2 0 - 5 % Basophils 1 0 - 2 % Absolute Neutrophil Count 4.30 1.8 - 7.0 K/UL Absolute Lymph Count 1.10 1.0 - 4.8 K/UL Absolute Monocyte Count 0.50 0 - 0.80 K/UL Absolute Eosinophil Count 0.10 0 - 0.45 K/UL Absolute Basophil Count 0.00 0 - 0.20 K/UL Specimen Performing Laboratory Blood [facility] [address] [place] [address] * MAGNESIUM (06/21/2017 9:59 AM) Component Value Ref Range Magnesium 2.0 1.6 - 2.6 mg/dL Specimen Performing Laboratory Blood [facility] [address] [place] [address] * COMPREHENSIVE METABOLIC PANEL (06/21/2017 9:59 AM) Only the most recent of 2 results within the time period is included. Component Value Ref Range Sodium 138 137 - 147 MMOL/L Potassium 4.5 3.5 - 5.1 MMOL/L Chloride 106 98 - 110 MMOL/L Glucose 152 (H) 70 - 100 MG/DL Blood Urea Nitrogen 17 7 - 25 MG/DL Creatinine 0.70 0.4 - 1.00 MG/DL Calcium 9.5 8.5 - 10.6 MG/DL Total Protein 7.0 6.0 - 8.0 G/DL Total Bilirubin 0.4 0.3 - 1.2 MG/DL Albumin 3.8 3.5 - 5.0 G/DL Alk Phosphatase 60 25 - 110 U/L AST (SGOT) 31 7 - 40 U/L CO2 22 21 - 30 MMOL/L ALT (SGPT) 33 7 - 56 U/L Anion Gap 10 3 - 12 eGFR Non >60 >60 mL/min Comment: The eGFR is not validated for use in drug dosing adjustments. Continue to use estimated creatinine clearance per dosing reference text. Please contact the Clinical Pharmacist for questions. eGFR >60 >60 mL/min Comment: The eGFR is not validated for use in drug dosing adjustments. Continue to use estimated creatinine clearance per dosing reference text. Please contact the Clinical Pharmacist for questions. Specimen Performing Laboratory Blood [facility] [address] [place] [address] * ECG-SCAN (06/21/2017 9:40 AM) Narrative Ordered by an unspecified provider. * ECG-SCAN (06/19/2017 8:00 AM) Narrative Ordered by an unspecified provider. * CBC (06/18/2017 4:37 AM) Only the most recent of 3 results within the time period is included. Component Value Ref Range White Blood Cells 7.4 4.5 - 11.0 K/UL RBC 4.29 4.0 - 5.0 M/UL Hemoglobin 13.3 12.0 - 15.0 GM/DL Hematocrit 39.7 36 - 45 % MCV 92.6 80 - 100 FL MCH 30.9 26 - 34 PG MCHC 33.4 32.0 - 36.0 G/DL RDW 14.1 11 - 15 % Platelet Count 251 150 - 400 K/UL MPV 8.2 7 - 11 FL Specimen Performing Laboratory Blood MAIN [facility] [address] [place] [address] * BASIC METABOLIC PANEL (06/18/2017 4:37 AM) Only the most recent of 2 results within the time period is included. Component Value Ref Range Sodium 137 137 - 147 MMOL/L Potassium 4.0 3.5 - 5.1 MMOL/L Chloride 106 98 - 110 MMOL/L CO2 25 21 - 30 MMOL/L Anion Gap 6 3 - 12 Glucose 114 (H) 70 - 100 MG/DL Blood Urea Nitrogen 14 7 - 25 MG/DL Creatinine 0.66 0.4 - 1.00 MG/DL Calcium 9.0 8.5 - 10.6 MG/DL eGFR Non >60 >60 mL/min Comment: The eGFR is not validated for use in drug dosing adjustments. Continue to use estimated creatinine clearance per dosing reference text. Please contact the Clinical Pharmacist for questions. eGFR >60 >60 mL/min Comment: The eGFR is not validated for use in drug dosing adjustments. Continue to use estimated creatinine clearance per dosing reference text. Please contact the Clinical Pharmacist for questions. Specimen Performing Laboratory Blood MAIN [facility] [address] [place] [address] * KNEE 3 VIEWS LEFT (06/17/2017 11:08 AM) Specimen Performing Laboratory Left [facility] RESULTS Impressions Findings/Impression: 1.Severe osteoarthritis the medial joint space. Mild osteoarthritis lateral joint space. Qotsunum-xh-ypuqba patellofemoral arthrosis. 2.Vspp-ry-agquhglu genu varus. 3.Moderate knee joint effusion. 4.No fractures or osseous lesions. Moderately proud osteophyte off the posterior aspect of the femoral condyles. Finalized by Tuan Murphy M.D. on 06/17/2017 11:59 AM. Dictated by Tuan Murphy M.D. on 06/17/2017 11:58 AM. Narrative Left knee 3 views. HISTORY: Bilateral knee pain. Procedure Note Interface, Radiant Results - 06/17/2017 12:02 PM HOME HEALTH SPEECH THERAPIST Left knee 3 views. HISTORY: Bilateral knee pain. IMPRESSION Findings/Impression: 1. Severe osteoarthritis the medial joint space. Mild osteoarthritis lateral joint space. Gazassyc-od-hhvrnz patellofemoral arthrosis. 2. Ljqz-rd-zesltrwg genu varus. 3. Moderate knee joint effusion. 4. No fractures or osseous lesions. Moderately proud osteophyte off the posterior aspect of the femoral condyles. Finalized by Tuan Murphy M.D. on 06/17/2017 11:59 AM. Dictated by Tuan Murphy M.D. on 06/17/2017 11:58 AM. * POC GLUCOSE (06/16/2017 5:19 PM) Component Value Ref Range Glucose, POC 189 (H) 70 - 100 MG/DL Specimen Performing Laboratory [facility] [address] [place] [address] * LINE PLCMT 1V CXR (06/16/2017 11:40 AM) Specimen Performing Laboratory [facility] RESULTS Impressions Interval left upper lobe lobectomy withtrace left apical pneumothorax, with 2 left-sided thoracostomy tubes in place. Finalized by Declan Mercado M.D. on 06/16/2017 11:48 AM. Dictated by Declan Mercado M.D. on 06/16/2017 11:44 AM. Narrative Portable AP chest Clinical history: Chest tube placement. Comparison: 12/19/2015. Correlation is also made with outside PET/CT dated 2016. Findings: Portable AP chest demonstrates interval left upper lobe lobectomy with placement of 2 left-sided thoracostomy tubes. Trace left pneumothorax is identified. There is elevation both hemidiaphragms with zones of right perihilar and right basilar atelectasis. The heart appears to be normal in size. No central pulmonary venous congestion is noted. Procedure Note Interface, Radiant Results - 06/16/2017 11:51 AM HOME HEALTH SPEECH THERAPIST Portable AP chest Clinical history: Chest tube placement. Comparison: 12/19/2015. Correlation is also made with outside PET/CT dated 2016. Findings: Portable AP chest demonstrates interval left upper lobe lobectomy with placement of 2 left-sided thoracostomy tubes. Trace left pneumothorax is identified. There is elevation both hemidiaphragms with zones of right perihilar and right basilar atelectasis. The heart appears to be normal in size. No central pulmonary venous congestion is noted. IMPRESSION Interval left upper lobe lobectomy with trace left apical pneumothorax, with 2 left-sided thoracostomy tubes in place. Finalized by Declan Mercado M.D. on 06/16/2017 11:48 AM. Dictated by Declan Mercado M.D. on 06/16/2017 11:44 AM. * ANESTHESIA ARTERIAL LINE INSERTION (06/16/2017 11:07 AM) Klaudia Smiley MD 06/16/2017 11:07 AM Anesthesia Procedure: Arterial Line Placement A-LINE INSERTION Date/Time: 06/16/2017 8:35 AM Patient location: OR Preprocedure checklist performed: 2 patient identifiers, risks & benefits discussed, patient evaluated, timeout performed, consent obtained, patient being monitored and sterile drape Sterile technique: - Proper hand washing - Cap, mask - Sterile gloves - Skin prep for antisepsis Arterial Line Procedure Patient sedated: yes (see MAR) Sedation type: general; Artery prepped with chlorhexidine; skin prep agent completely dried prior to procedure. Location: radial artery Laterality: right Technique: palpation Ultrasound image captured Needle gauge: 20 G Number of attempts: 1 Procedure Outcome Catheter secured with adhesive dressing applied Events: no complications noted during insertion and skin intact, warm, and dry Observation: pt tolerated well Additional notes: Arterial Line Placed. Saline flushed with No visible air. Square-waveform test performed. BP correlating with cuff well, secured in place. Performed by: ALBERT HERNANDEZ Authorized by: JORDI SMILEY Procedure Note Jordi Smiley MD - 06/16/2017 9:27 AM HOME HEALTH SPEECH THERAPIST Formatting of this note may be different from the original. Anesthesia Procedure: Arterial Line Placement A-LINE INSERTION Date/Time: 06/16/2017 8:35 AM Patient location: OR Preprocedure checklist performed: 2 patient identifiers, risks & benefits discussed, patient evaluated, timeout performed, consent obtained, patient being monitored and sterile drape Sterile technique: - Proper hand washing - Cap, mask - Sterile gloves - Skin prep for antisepsis Arterial Line Procedure Patient sedated: yes (see MAR) Sedation type: general; Artery prepped with chlorhexidine; skin prep agent completely dried prior to procedure. Location: radial artery Laterality: right Technique: palpation Ultrasound image captured Needle gauge: 20 G Number of attempts: 1 Procedure Outcome Catheter secured with adhesive dressing applied Events: no complications noted during insertion and skin intact, warm, and dry Observation: pt tolerated well Additional notes: Arterial Line Placed. Saline flushed with No visible air. Square-waveform test performed. BP correlating with cuff well, secured in place. Performed by: ALBERT HERNANDEZ Authorized by: JORDI SMILEY ATTESTATION I was present during the entire procedure performed by vin Hernandez. Staff name: Izaiah Smiley MD Date: 06/16/2017 * SURGICAL PATHOLOGY (06/16/2017 9:12 AM) Component Value Ref Range PATHOLOGY REPORT [facility] www.[email or web address] Department of Pathology and Laboratory Medicine [address] [place] [address] Surgical Pathology Office: [phone] SURGICAL PATHOLOGY REPORT NAME: YUMI DIXON SURG PATH #: [id number] MR #: [id number] SPECIMEN CLASS: SR BILLING #: [id number] ALT ID #: LOCATION: [facility] DATE OF PROCEDURE: 06/16/2017 AGE: 72 SEX: F DATE RECEIVED: 06/16/2017 : 1945 TIME RECEIVED: 09:12 PHYSICIAN: DANIEL KHAN MD DATE OF REPORT: 06/23/2017 COPY TO: DATE OF PRINTIN06/28/2017 Procedures/Addenda Addendum Date Ordered: 06/28/2017 Status: Signed Out Date Complete: 06/28/2017 By: JACINTA Montgomery Date Reported: 06/28/2017 Addendum Diagnosis The original diagnosis remains unchanged. PD-L1: Results: Negative or <1 Interpretation: No PD-L1 expression (Tumor proportion Score <1%) Comment: PD-L1 test name: DAKO PD-L1 IHC 22C3 pharmDX Cell types evaluated: Tumor cells FDA status: Slipcover Cutter Addendum Comment {Not Entered} JACINTA Montgomery ################################################## ###################### Final Diagnosis: A. Lymph node (1), "level 5/6 lymph node for frozen", excision: Negative for carcinoma in one lymph node (0/1). B. Lymph node (1), "station 11 lymph node", excision: Negative for carcinoma in one lymph node (0/1). C. Lung and lymph nodes (2), "left upper lobe", lobectomy: Poorly differentiated adenocarcinoma, solid pattern, with neuroendocrine differentiation. See comment. Negative for carcinoma in two lymph nodes (0/2). D. Lymph node (1), "level 7 lymph node", excision: Negative for carcinoma in one lymph node (0/1). E. Lymph node (1), "level 10 lymph node", excision: Negative for carcinoma in one lymph node (0/1). Comment: Mucicarmine stains performed on block C2 and C3 demonstrate focal intracellular mucin. Immunostains performed on block C2 demonstrate that the carcinoma is partially positive for TTF-1 and CD56, shows an elevated PSA index of approximately 40% and is negative for chromogranin and synaptophysin and P40. An immunostain for CD 56 on blocks C3 is also partially positive. The morphology and the staining profile are most consistent with a poorly differentiated adenocarcinoma (solid growth pattern) with neuroendocrine differentiation. LUNG: Resection CAP Version: Lung 3.4.0.0 Specimen Lobe(s) of lung (specify): Left upper lobe Procedure Lobectomy Specimen Laterality Left Tumor Site (select all that apply) Upper lobe Tumor Size Greatest dimension: 1.8 cm Additional dimensions: 1.6 x 1.2 cm Tumor Focality Unifocal Histologic Type Adenocarcinoma Solid predominant Histologic type comments: The solid predominant adenocarcinoma shows neuroendocrine differentiation Histologic Grade G3: Poorly differentiated Visceral Pleura Invasion Not identified Tumor Extension (select all that apply) Not identified Margins (select all that apply) If all margins uninvolved by invasive carcinoma: Distance of invasive carcinoma from closest margin: 2.4 cm Specify margin: Bronchial margin Bronchial Margin Uninvolved by invasive carcinoma and carcinoma in situ Vascular Margin Uninvolved by invasive carcinoma Treatment Effect (required only if applicable) Very focal fibrosis and calcification are noted; approximately 85% of the carcinoma is viable Tumor Associated Atelectasis or Obstructive Pneumonitis Not definitively identified Lymph-Vascular Invasion (select all that apply) Not identified Pathologic Staging (pTNM) pT1aN0 Primary Tumor (pT) pT1a: Tumor 2 cm or less in greatest dimension, surrounded by lung or visceral pleura, without bronchoscopic evidence of invasion more proximal than the lobar bronchus (ie, not in the main bronchus); or Superficial spreading tumor of any size with its invasive component limited to the bronchial wall, which may extend proximally to the main bronchus Regional Lymph Nodes (pN) pN0: No regional lymph node metastasis Number of Lymph Nodes Examined Specify: 6 Number of Lymph Nodes Involved Specify: 0 Specify stations examined: Level 5/6, level 7, level 10, station 11, hilar lymph nodes Specify stations involved: None Additional Pathologic Findings (select all that apply) Emphysema Other (specify): Respiratory bronchiolitis and patchy mild interstitial fibrosis Ancillary Studies (select all that apply) The results of a PD L1 immunostain will be reported in an addendum The pathologic stage assigned here should be regarded as provisional, as it reflects only current pathologic data and does not incorporate full knowledge of the patient's clinical status and/or prior pathology. Block for Biomarker Testing: [C3] Attestation: By this signature, I attest that I have personally formulated the final interpretation expressed in this report and that the above diagnosis is based upon my examination of the slides and/or other material indicated in this report. +++ +++ antoine/06/16/2017 ################################################## ###################### Material Received: A: level 5/6 lymph node for frozen B: station 11 lymph node C: left upper lobe D: level 7 lymph node E: level 10 lymph node History: 72-year-old female with a clinical history of lung mass. Gross Description: A. Received fresh, labeled with the patient's name and "level 5/6 lymph node for frozen" is a 1.7 x 1.8 x 0.8 cm black anthracotic lymph node. The specimen is entirely submitted for frozen section and the remnant is submitted in cassette A1FS. (dlk) B. Received in formalin, labeled with the patient's name and "station 11 lymph node" is a 0.9 x 0.4 x 0.3 cm black, anthracotic fragment of soft tissue. The specimen is entirely submitted in cassette B1. (dlk) C. Fixative: Fresh Labeled: "left upper lobe" Weight: 242 grams Measurement: 20.3 x 10.7 x 3.1 cm Pleural surface: Red-purple and remarkable for a 1.3 x 0.9 cm area of puckering. Tumor: 1.8 x 1.6 x 1.2 cm underlying the area of puckering previously mentioned Tumor from pleura: 0.2 cm Tumor from bronchus: 2.4 cm Uninvolved lung parenchyma: Red-brown and spongy Hilar lymph nodes: Yes, two possible lymph nodes 0.9 x 0.7 x 0.4 cm to 0.8 x 0.6 x 0.4 cm The external surface is inked black. Rigger Chief sections of the specimen are submitted as follows: C1 Bronchial and vascular margins. C2-C5 Entire nodule. C6 Two possible lymph nodes. (dlk) D. Received in formalin, labeled with the patient's name and "level 7 lymph node" are five black, anthracotic fragments of soft tissue ranging from 0.3 x 0.3 x 0.2 cm to 0.5 x 0.3 x 0.3 cm. The specimen is entirely submitted in cassette D1. (dlk) E. Received in formalin, labeled with the patient's name and "level 10 lymph node" are seven black, anthracotic fragments of soft tissue ranging from 0.3 x 0.2 x 0.2 cm-0.6 x 0.4 x 0.3 cm. Specimen is entirely submitted in cassette E1. (dlk) ksw/06/16/2017 Intraoperative Consultation: A1FS, lymph node, "level 5/6 lymph node for frozen", biopsy: Negative for malignancy. Jane Concepcion MD If immunohistochemical stains and/or in situ hybridization are cited in this report, the performance characteristics were determined by the Department of Pathology and Laboratory Medicine of the [facility] ([employer]) in compliance with CLIA'88 regulations. Some of these tests rely on the use of "analyte specific reagents" and are subject to specific labeling requirements by the FDA. Known positive and negative control tissues demonstrate appropriate staining. Results should be interpreted with caution given the likelihood of false negativity on decalcified specimens. This testing was developed by the Department of Pathology and Laboratory Medicine of the [facility]. It has not been cleared or approved by the FDA. The FDA has determined that such clearance or approval is not necessary. Specimen Performing Laboratory [facility] RESULTS * BLOOD TYPE CONFIRMATION - ORDER ONLY IF REQUESTED BY LAB (06/16/2017 7:15 AM) Component Value Ref Range ABO/RH(D) A POS Specimen Performing Laboratory [facility] [address] [place] [address] * PFT COMPLETE PULM FUNCTION (06/15/2017 1:08 PM) Component Value Ref Range FVC-Pre 2.52 L FVC-%Pred-pre 84 % FEV1-Pre 2.05 L FEV1-%Pred-Pre 91 % VIS7189-Hwi 2.15 L/sec RDH4430-%Pred-Pre 118 % VCSVC-Pre 2.50 L ICSVC-Pre 1.52 L ERVSVC-Pre 0.98 L PEF-Pre 355.3 L/min TGVPleth-Pre 2.77 L RVPleth-Pre 2.14 L RVPleth-%Pred-Pre 94 % TLCPleth-Pre 4.31 L TLCPleth-%Pred-Pre 83 % DLCOunc-Pred 20.45 ml/min/mmHg DLCOunc-Pre 16.75 ml/min/mmHg DLCOunc-%Pred-Pre 81 % DLCOunc-SD 3.75 ml/min/mmHg DLCOunc-LLN 12.95 ml/min/mmHg DLCOunc-ULN 27.95 ml/min/mmHg DLCOunc-#SD -0.986 ml/min/mmHg DLVA-Pred 4.23 ml/min/mmHg/L DLVA-Pre 4.16 ml/min/mmHg/L DLVA-%Pred-Pre 98 % DLVA-SD 0.80 ml/min/mmHg/L DLVA-LLN 2.63 ml/min/mmHg/L DLVA-ULN 5.83 ml/min/mmHg/L DLVA-#SD -0.090 ml/min/mmHg/L Specimen Performing Laboratory [facility] [address] [place] [address] * PTT (APTT) (06/15/2017 11:31 AM) Component Value Ref Range APTT 26.7Comment: NOTE NEW REFERENCE RANGES 21.0 - 39.0 SEC Specimen Performing Laboratory [facility] [address] [place] [address] * PROTIME INR (PT) (06/15/2017 11:31 AM) Component Value Ref Range INR 0.9 0.8 - 1.2 Specimen Performing Laboratory [facility] [address] [place] [address] * TYPE & CROSSMATCH (06/15/2017 11:22 AM) Component Value Ref Range Units Ordered 0 Crossmatch Expires 06/18/2017 Record Check 2ND TYPE REQUIRED ABO/RH(D) A POS Antibody Screen NEG Electronic Crossmatch YES Specimen Performing Laboratory [facility] [address] [place] [address] * NM PET/CT EXTERNAL IMAGING (06/01/2017) Narrative This order has been auto finalized and does not contain a result. from Last 3 Months
--- OUTSIDE RECORDS SUMMARY | 2017-08-10 06:54 | XMS REPORT | Encounter Summary ---
Author Author [facility] Organization [facility] Address Unknown Phone Unavailable Care Team Providers Care Manager Sharepoint Name Role Phone PCP Unavailable Encounter Details Date Type Department Care Team Description 07/08/2017 Procedure Pass [facility] [address] [place] [address] Social History Tobacco Use Types Packs/Day Years [...] Team Description 07/08/2017 Procedure Pass Cardiothoracic Surgery as of this encounter Visit Diagnoses Not on filein this encounter
--- OUTSIDE RECORDS SUMMARY | 2017-08-10 06:54 | XMS REPORT | Encounter Summary ---
Author Author [facility] Organization [facility] Address Unknown Phone Unavailable Care Team Providers Care Human Resources Operations Manager Name Role Phone PCP Unavailable Reason for Visit * Reason Comments Heme/Onc Care * Consult, Test & Treat Status Reason Specialty Diagnoses / Referred By Referred To Procedures Contact Contact New Request Specialty Oncology Diagnoses Kwame Khan Chao H, MD Services Primary MD Daniel [address] Required adenocarcinoma [address] lung, [address] [place] [address] laterality (HCC) [place], [place] Phone: [phone] Phone: Encounter Details Date Type Department Care Team Description 08/05/2017 Office Visit [facility] Daniel Khan , Primary adenocarcinoma of [facility] Exam lung, unspecified [address] [place] [address] [address] (HCC);Adenocarcinoma, [place] [address] lung, left (HCC) [phone] Ajit Aguayo MD [address] [place] [address] [phone] Social History Tobacco Use Types Packs/Day Years Used Date Current Some Day Smoker Cigarettes 0.25 Smokeless Tobacco: Never Used Comments: started at 19yo up to 2p/day . Alcohol Use Drinks/Week oz/Week Comments No Sex Assigned at Date Recorded Not on file as of this encounter Last Filed Vital Signs Vital Sign Reading Time Taken Blood Pressure 180/81 08/05/2017 1:27 PM TOBACCO CLASSER Pulse 66 08/05/2017 1:27 PM TOBACCO CLASSER Temperature 36.7 C (98 F) 08/05/2017 1:27 PM TOBACCO CLASSER Respiratory Rate 18 08/05/2017 1:27 PM TOBACCO CLASSER Oxygen Saturation 97% 08/05/2017 1:27 PM TOBACCO CLASSER Inhaled Oxygen - - Concentration Weight 78.5 kg (173 lb) 08/05/2017 1:27 PM TOBACCO CLASSER Height 167.6 cm (5' 6") 08/05/2017 1:27 PM TOBACCO CLASSER Body Mass Index 27.92 08/05/2017 1:27 PM TOBACCO CLASSER in this encounter Functional Status Functional Status Response Date of Assessment Does the patient have a hearing impairment: No 06/21/2017 as of this encounter Miscellaneous Notes * Assessment & Plan Note - John Hong MBBS - 08/05/2017 9:38 PM TOBACCO CLASSER Associated Problem(s): Adenocarcinoma, lung, left (HCC) We reviewed the patient's history, CT scans [...] in May 2018 with a chest x-ray. in this encounter Plan of Treatment Date Type Specialty Care Team Description 07/08/2017 Procedure Pass Cardiothoracic Surgery as of this encounter Visit Diagnoses Diagnosis Primary adenocarcinoma of lung, unspecified laterality (HCC) in this encounter
--- OUTSIDE RECORDS SUMMARY | 2017-08-10 06:54 | XMS REPORT | Encounter Summary ---
Author Author [facility] Organization [facility] Address Unknown Phone Unavailable Care Team Providers Care Tin Worker Name Role Phone PCP Unavailable Reason for Visit * Reason Comments Navigation Assessment Encounter Details Date Type Department Care Team Description 07/28/2017 Telephone [facility] Ajit Puente MD Navigation Assessment [facility] Exam [address] [place] [address] [place] [address] [phone] Social History Tobacco Use Types Packs/Day Years Used Date Current Every Day Smoker Cigarettes 0.5 Smokeless Tobacco: Never Used Alcohol Use Drinks/Week oz/Week Comments No Sex Assigned at Date Recorded Not on file as of this encounter Functional Status Functional Status Response Date of Assessment Does the patient have a hearing impairment: No 06/21/2017 as of this encounter Miscellaneous Notes * Telephone Encounter - Roxanna Houston RN - 07/28/2017 11:58 AM FORM SETTER Navigation Intake Assessment Document Patient Name: Nydia Arriaga : 1945 Insurance: Medicare Appointment Info: to see Dr Puetne on 08/05/17 Diagnosis & Reason for Visit: [facility] lung cancer Physician Info: Referring Physician: Dr Anastasiya Khan Contact Name & Number: OLLIE Licea CTS, [phone] Surgeon: Dr Anastasiya Khan Medical Oncologist: Dr Ryan in [place] Radiation Oncologist: Dr Ade Tatum in [place] PCP: Other: Location of Films: IN HOUSE and PACS Location of Pathology: IN HOUSE History of Present Illness: Pt had recent surgery at . Records and images in O2 and PACS. 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 Features of small cell lung carcinoma are not identified 02/04/16 - 02/13/16 - SBRT Radiation tx to Left lung, done in [place], [place] 03/16/16 - CT scans, done in [place] 06/29/16 - CT chest 12/30/16 - CT chest 03/23/17 - CT chest 06/01/17 - PET scan 06/16/17 - VATS PREM lobectomy, Path: Poorly differentiated adenocarcinoma, solid pattern, with neuroendocrine differentiation. PDL1 negative, Additional mutation studies requested. Referred to Med Onc. Prior Treatment (XRT, Surgery, Chemotherapy): Radiation tx to left lung. PREM Lobectomy surgery Comments: Spoke to pt about appt. She lives in [place], [place], her son will bring her to appt. Appt letter sent to pt. NEEDS Assessment: Genetic Counseling: Not Applicable Nutrition: No needs identified Social Work/Financial: No need identified and Patient provided information on available services Spiritual & Emotional: Emotional support provided Physical: No needs identified Communication: No needs identified Oncofertility - Females age 40 and under; Males age 50 and under : Not applicable in this encounter Plan of Treatment Date Type Specialty Care Team Description 07/08/2017 Procedure Pass Cardiothoracic Surgery as of this encounter Visit Diagnoses Not on filein this encounter
--- OUTSIDE RECORDS SUMMARY | 2017-08-10 06:55 | XMS REPORT | Encounter Summary ---
Author Author [facility] Organization [facility] Address Unknown Phone Unavailable Care Team Providers Care Mechanical Designer Name Role Phone PCP Unavailable Reason for Visit * Reason Comments Chills Pt had part of left long removed last wednesday, experiencing cold sweats x24h Fever Encounter Details Date Type Department Care Team Description 06/21/2017 Emergency Emergency Dept. Sivakumar Camilo MD [address] [place] [address] [place] [address] [place] [address] [phone] Social History Tobacco Use Types Packs/Day Years Used Date Current Every Day Smoker Cigarettes 0.5 Smokeless Tobacco: Never Used Alcohol Use Drinks/Week oz/Week Comments No Sex Assigned at Date Recorded Not on file as of this encounter Last Filed Vital Signs Vital Sign Reading Time Taken Blood Pressure 114/69 06/21/2017 12:00 PM [employer] Pulse 60 06/21/2017 12:17 PM [employer] Temperature 36.6 C (97.9 F) 06/21/2017 11:19 AM [employer] Respiratory Rate - - Oxygen Saturation 95% 06/21/2017 12:17 PM [employer] Inhaled Oxygen - - Concentration Weight 77.1 kg (170 lb) 06/21/2017 9:46 AM [employer] Height - - Body Mass Index 27.44 06/21/2017 9:46 AM [employer] WORKER in this encounter Functional Status Functional Status Response Date of Assessment Does the patient have a hearing impairment: No 06/21/2017 as of this encounter Discharge Instructions * Andi Stout MD - 06/21/2017 Formatting of this note may be different from the original. Understanding Hyperhidrosis Hyperhidrosis is excessive sweating. Its often an ongoing (chronic) condition. Sweating is a normal process. It helps manage body temperature and other processes of the body. But excessive sweating is more than is needed to do this. The symptoms can start when youre a child and continue into adulthood. How to say it [id number] What causes hyperhidrosis? In most cases, the cause isnt known. It may be because of a problem with how the nervous system responds to stress. In some cases, it may be caused by another health condition or a medicine. This is known as secondary hyperhidrosis. Symptoms of hyperhidrosis The main symptom of hyperhidrosis is heavy sweating that: Can cause problems with daily activities and social events Happens during the day but not at night May happen with no physical activity The sweating occurs most often in any or all of these areas: Bottoms of the feet Palms Underarms In some cases, it may also occur in these areas: Face Groin Scalp Under the breasts Treatment for hyperhidrosis Treatment choices include: Antiperspirant. An antiperspirant that has 10% to 15% aluminum chloride can block sweat glands and help stop sweating. It comes in creams, sticks, gels, and sprays. You can buy antiperspirant at a drugstore. Or your healthcare provider may give you a stronger prescription antiperspirant that has 20% aluminum chloride. Antiperspirant should be applied to dry skin at night before bed. It needs to be applied every night for a week or two, and then once or twice a week or as needed. This can irritate the skin for some people. Botulinum toxin. This is a type of medicine. The medicine is injected into the areas with sweat glands. This can help prevent sweat glands from working normally for a few months. Youll need to get injections every few months. Iontophoresis. This treatment uses electricity to block sweat glands. Moist pads are put on the skin, or your hands or feet are placed in shallow water. Chemicals may be added to the water. An electrical current is sent through fluid. The process is done several times a week until sweating is reduced, and then once a week or as advised. Surgery. In severe cases, surgery can be done to remove your sweat glands. Or surgery can be done to cut the nerves that send signals to the sweat glands. Either of these types of surgery can stop sweat permanently. But this can lead to compensatory hyperhidrosis. This means you will start sweating from another part of your body. Treating another health condition, or changing a medicine. A health condition or a medicine can cause secondary hyperhidrosis. This can be managed by treating the health condition, or by a change in medicine. Your healthcare provider will talk with you about these options if you have secondary hyperhidrosis. Oral medicines. There are medicines that can be taken by mouth that will help reduce sweating. Possible complications of hyperhidrosis You may have skin problems in the areas where you sweat. The skin may become moist, pale, swollen, and soft enough to rub away easily. This is known as skin maceration. It can lead to loss of skin, pain, and skin infection. You can help prevent this problem by treating your hyperhidrosis and keeping your skin dry as much as possible. Living with hyperhidrosis Hyperhidrosis may be caused by or made worse by emotional stress and heat. It can also cause problems with work and social life. You may have stains on your clothes, and not want to shake hands with people. It can be upsetting to cope with the problems of excess sweat. Talk with your healthcare provider about the following: Support groups How to prevent skin maceration Other ways to manage your condition long-term When to call your healthcare provider Call your healthcare provider right away if you have any of these: Symptoms that dont get better, or get worse New symptoms Date Last Reviewed: 12/01/201519997350-0919 [employer]. [address] [place] [address]. All rights reserved. This information is not intended as a substitute for professional medical care. Always follow your healthcare professional's instructions. in this encounter Medications at Time of Discharge [...] cheek (side of mouth) as Needed. omega 5-nuc-vae-fish oil Take 3 Caps by mouth 300-1,000 [...] tablet Take 1 tablet by mouth daily. milk of magnesia (CONC) Take 10 mL by mouth 360 mL 06/19/20172016 2,400 mg/10 mL oral daily. Indications: suspensionIndications: CONSTIPATION constipation oxyCODONE (ROXICODONE, Take 1-2 tablets by mouth 75 tablet 0 201607/08/2017 OXY-IR) 5 mg tablet every 4 hours as needed for Pain polyethylene glycol 3350 Take 1 packet by mouth 12 each 06/19/2017 (MIRALAX) 17 g packet daily. senna/docusate Take 1 tablet by mouth 0 06/18/2017 07/08/2017 (SENOKOT-S) 8.6/50 mg twice daily. tablet traMADol (ULTRAM) 50 mg Take 1-2 tablets by mouth 60 tablet 0 201607/08/2017 tablet every 6 hours as needed for Pain. as of this encounter Miscellaneous Notes * ED Notes - Romina Thompson RN - 06/21/2017 12:23 PM [employer] Pt ambulatory to the ED waiting room with a steady gait to wait for her daughter to pull the car around. * ED Notes - Romina Thompson RN - 06/21/2017 12:21 PM [employer] WORK[employer] Pt given home care instructions and follow up care instructions. All documents gone through thoroughly with pt and she verbalizes understanding of them. Pt's daughter present at the bedside for teaching. Pt denies further needs/questions at this time and gets dressed. * ED Notes - Romina Thompson RN - 06/21/2017 11:18 AM [employer] Pt ambulatory in a lap around the ED with no distress or SOA. SpO2 maintained at >98% at all times, HR of 78 bpm and regular. OPTOMETRY DOCTOR consult at the bedside at this time. Pt in NAD. VSS. * ED Notes - Romina Thompson RN - 06/21/2017 11:04 AM C[employer] AND [employer] Dr. Camilo at the bedside and requesting ambulatory pulse oximetry reading. * ED Provider Notes - Sivakumar Camilo MD - 06/21/2017 10:33 AM [employer] Formatting of this note may be different from the original. Nydia Arriaga is a 72 y.o. female. Chief Complaint Patient presents with Chills Pt had part of left long removed last wednesday, experiencing cold sweats x24h Fever HPI Ms Arriaga is a 72-year-old with biopsy-proven lung cancer on the left s/p PREM lobectomy last Wednesday who presents with cold sweats overnight. Denies fevers , chills, nausea, vomiting, diarrhea, abdominal pain, lightheadedness, dizziness , or urinary symptoms. Is not diaphoretic now. No other complaints. Just wanted to "get checked out". Review of Systems Constitutional: Positive for diaphoresis. Negative for chills, fatigue and fever. HENT: Negative. Eyes: Negative for photophobia and visual disturbance. Respiratory: Negative for cough, shortness of breath and wheezing. Cardiovascular: Negative for chest pain, palpitations and leg swelling. Gastrointestinal: Negative for abdominal distention, abdominal pain, constipation, diarrhea, nausea and vomiting. Endocrine: Negative for polydipsia, polyphagia and polyuria. Genitourinary: Negative for dysuria, flank pain and urgency. Musculoskeletal: Negative. Skin: Negative. Neurological: Negative for dizziness, weakness, light-headedness and headaches. Psychiatric/Behavioral: Negative. Allergies: Sulfa (sulfonamide antibiotics) and Lisinopril Past Medical History: Diagnosis Date Arthritis CAD (coronary artery disease) Cancer (HCC) neuroendocrine cancer lung COPD (chronic obstructive pulmonary disease) (HCC) Dyspnea Essential hypertension Gastrointestinal disorder GERD Hyperlipidemia Lung mass PREM Psychiatric illness depression RBBB Past Surgical History: Procedure Laterality Date TONSILLECTOMY 1950 CHOLECYSTECTOMY 1977 APPENDECTOMY 1977 PARTIAL HYSTERECTOMY 1979 HERNIA REPAIR Left 1988 inguinal x 2 HX BREAST BIOPSY Right 1991 COLONOSCOPY 2013 UPPER GASTROINTESTINAL ENDOSCOPY 2013 HEART CATHETERIZATION 08/29/13 THORACOSCOPY Left 06/16/2017 LEFT VIDEO ASSISTED THORACOSCOPY, LEFT UPPER LOBECTOMY performed by Daniel Khan MD at [facility] SUR[facility]ERY Social History Substance Use Topics Smoking status: Current Every Day Smoker Packs/day: 0.50 Types: Cigarettes Smokeless tobacco: Never Used Alcohol use No History Drug Use No Family History Problem Relation Age of Onset Hypertension Mother Heart Disease Mother Hypertension Sister Diabetes Maternal Grandmother Heart Disease Maternal Grandmother Heart Disease Maternal Grandfather ED Vitals Date and Time T BP P RR SPO2P SPO2 [facility] 06/21/17 1000 -- 90/77 57 18 PER MINUTE (!) 57 97 % RH 06/21/17 0946 36.6 C (97.8 F) -- -- -- -- -- RH Physical Exam Constitutional: She is oriented to person, place, and time. She appears well- developed and well-nourished. No distress. HENT: Head: Normocephalic and atraumatic. Eyes: EOM are normal. Pupils are equal, round, and reactive to light. Neck: Normal range of motion. Neck supple. JVD present. Cardiovascular: Normal rate, regular rhythm, normal heart sounds and intact distal pulses. Exam reveals no gallop and no friction rub. No murmur heard. Pulmonary/Chest: Effort normal and breath sounds normal. No respiratory distress. She has no wheezes. She has no rales. She exhibits no tenderness. Abdominal: Soft. Bowel sounds are normal. She exhibits no distension. There is no tenderness. Musculoskeletal: Normal range of motion. She exhibits no edema. Neurological: She is alert and oriented to person, place, and time. Skin: Skin is warm and dry. She is not diaphoretic. No erythema. Nursing note and vitals reviewed. Laboratory Results: Results for orders placed or performed during the hospital encounter of (from the past 24 hour(s)) CBC AND DIFF Result Value Ref Range White Blood Cells 6.0 [...] Basophil Count 0.00 0 - 0.20 K/UL POC TROPONIN Result Value Ref Range Jbdqttfp-A-LAB 0.01 0.00 - 0.05 NG/ML Radiology Interpretation: CHEST SINGLE VIEW Final Result Decreasing left pleural effusion. Unchanged partial atelectasis left lower lobe. Emphysema of the left abdominal wall. Finalized by Shukri Killian M.D. on 06/21/2017 10:50 AM. Dictated by Shukri Killian M.D. on 06/21/2017 10:48 AM. EKG: NSR HR 62, LA 172, QTc 423, no ST wave abnormalities. ED Course: Patient seen by resident and attending physician. 72 yo F with PMH of A fib and recent RUL lobectomy for lung CA who presents with 1 night history of cold sweats. VSS, no tachycardia, afebrile, no hypotension. On exam, lungs clear, heart RRR, abdomen soft NT. Workup included negative U/A, CBC w/ no white count, wnl electrolytes, TSH wnl, negative troponin. CXR w/ no infiltrate. Obtained walking pulse oximetry and patient did not desat <98%. Curbside consult to CTS, patient evaluated and deemed safe for discharge. Given return precautions. Coding Facility Administered Meds: No current facility-administered medications on file as of 06/21/2017. Clinical Impression: Final diagnoses: Sweating increase (Primary) Disposition/Follow up D/C home w follow up/ PCP if symptoms worsen as needed. Medications: New Prescriptions No medications on file Procedures None Attestation / Supervision: Andi Stout MD Pager [phone] Attestation / Supervision Note concerning Nydia Arriaga: I personally performed the [place] portions of the E/M visit, discussed case with resident and concur with resident documentation of history, physical exam, assessment, and treatment plan unless otherwise noted. Sivakumar Camilo MD * ED Notes - Romina Thompson RN - 06/21/2017 10:23 AM [employer] X-ray at the bedside. * ED Notes - Wilfredo Whitlock RN - 06/21/2017 10:04 AM [employer] Pt presents to ED 28 via POV c/o chills and fever "for the last 24 hours". PMH cancer removed from left lung and COPD. Pt denies SOA, CP, dizziness, pain at this time. Pt reports that she "thinks she had a fever, but did not have thermometer at home and took Tylenol this morning". Afebrile 97.8F at this time. Pt reports that her last cigarette was "on Wednesday and thinks symptoms may be due to that". Pt AOx4, VSS, skin color appropriate for race, C/D/I. Pt placed on monitor, side rails up x2, cart locked in low position, call light in reach. Daughter at bedside, resident at bedside for evaluation. Belongings: 1 sweater, 2 white tennis shoes, 1 pair glasses, 1 set dentures ( upper & lower), 1 silver colored watch, 1 pair sweat pants, 2 white socks. * ED Notes - Kiesha Alcocer RN - 06/21/2017 9:40 AM [employer] WORK[employer] Bed: 28 Expected date: Expected time: Means of arrival: Comments: Triage - Davied in this encounter Plan of Treatment Date Type Specialty Care Team Description 07/08/2017 Procedure Pass Cardiothoracic Surgery as of this encounter Procedures Procedure Name Priority Date/Time Associated Diagnosis Comments ECG-SCAN 06/30/2017 Results for this 10:36 AM [employer] procedure are in the results section. ECG-SCAN 06/21/2017 Results for this 9:40 AM [employer] procedure are in the results section. in this encounter Results * ECG-SCAN (06/30/2017 10:36 AM) Narrative Ordered by an unspecified provider. * UA REFLEX CULTURE LABEL (06/21/2017 11:16 AM) Component Value Ref Range UA Reflex Culture LAB LABEL Specimen Performing Laboratory Urine [facility] [address] [place] [address] * URINALYSIS MICROSCOPIC REFLEX TO CULTURE (06/21/2017 [...] Performing Laboratory Urine [facility] [address] [place] [address] * URINALYSIS DIPSTICK REFLEX TO CULTURE (06/21/2017 11:16 AM) Component Value Ref Range Color,UA YELLOW Turbidity,UA 1+ (A) CLEAR-CLEAR Specific [place]-Urine 1.016 1.003 - 1.035 pH,UA 6.0 5.0 - 8.0 Protein,UA NEG NEG-NEG Glucose,UA NEG NEG-NEG Ketones,UA NEG NEG-NEG Bilirubin,UA NEG NEG-NEG Blood,UA NEG NEG-NEG Urobilinogen,UA NORMAL NORM-NORMAL Nitrite,UA NEG NEG-NEG Leukocytes,UA NEG NEG-NEG Urine Ascorbic Acid, UA NEG NEG-NEG Specimen Performing Laboratory Urine [facility] [address] [place] [address] * CHEST SINGLE VIEW (06/21/2017 10:28 AM) Specimen Performing Laboratory [facility] RAD RESULTS [...] Interface, Radiant Results - 06/21/2017 10:53 AM [employer] WORKER CHEST SINGLE VIEW History: CHILLS. Technique: Single [...] (06/21/2017 10:07 AM) Component Value Ref Range Djotwsyx-V-EYW 0.01 0.00 - 0.05 NG/ML Specimen Performing Laboratory MAIN LAB [address] [place] [address] * CBC AND DIFF (06/21/2017 9:59 AM) [...] - 0.20 K/UL Specimen Performing Laboratory Blood [facility] [address] [place] [address] * COMPREHENSIVE METABOLIC PANEL (06/21/2017 9:59 AM) Component Value Ref Range Sodium 138 137 [...] Specimen Performing Laboratory Blood [facility] [address] [place] [address] * MAGNESIUM (06/21/2017 9:59 AM) Component Value Ref Range Magnesium 2.0 1.6 - 2.6 mg/dL Specimen Performing Laboratory Blood [facility] [address] [place] [address] * TSH WITH FREE T4 REFLEX (06/21/2017 9:59 AM) Component Value Ref Range TSH 1.311 0.35 - 5.00 MCU/ML Specimen Performing Laboratory Blood [facility] [address] [place] [address] * ECG-SCAN (06/21/2017 9:40 AM) Narrative Ordered by an unspecified provider. in this encounter Visit Diagnoses Diagnosis Sweating increase - Primary Generalized hyperhidrosis in this encounter
--- OUTSIDE RECORDS SUMMARY | 2017-08-10 06:55 | XMS REPORT | Encounter Summary ---
Author Author [facility] Organization [facility] Address Unknown Phone Unavailable Care Team Providers Care Phlebotomist Name Role Phone PCP Unavailable Encounter Details Date Type Department Care Team Description 06/18/[address] [facility] [address] [place] [address] Social History Tobacco Use Types Packs/Day Years Used Date Current Every Day Smoker Cigarettes 0.5 Smokeless Tobacco: Never Used Sex Assigned at Date Recorded Not on file as of this encounter Functional Status Functional Status Response Date of Assessment Does the patient have a hearing impairment: No 06/16/2017 as of this encounter Plan of Treatment Date Type Specialty Care Team Description 07/08/2017 Procedure Pass Cardiothoracic Surgery as of this encounter Visit Diagnoses Not on filein this encounter
--- OUTSIDE RECORDS SUMMARY | 2017-08-10 06:55 | XMS REPORT | Encounter Summary ---
Author Author [facility] Organization [facility] Address Unknown Phone Unavailable Care Team Providers Care Lopper Name Role Phone PCP Unavailable Encounter Details Date Type Department Care Team Description 07/08/2017 Hospital [facility] Elena Guerrero APRN Encounter Hospital Radiology [address] [place] [address] [place] [address] [phone] Social History Tobacco Use Types Packs/Day Years [...] cheek (side of mouth) as Needed. omega 4-kny-gte-fish oil Take 3 Caps by mouth 300-1,000 [...] Pass Cardiothoracic Surgery as of this encounter Results * CHEST 2 VIEWS (07/08/2017 10:18 AM) Specimen Performing Laboratory [facility] RAD RESULTS Impressions Improved aeration of the left lung with mild persistent atelectasis or scarring in the left lung base. Mild blunting of the left costophrenic angle, likely scarring or small residual pleural effusion. Finalized by FLORIN ROGERS M.D. on 07/08/2017 11:19 AM. Dictated by FOLRIN ROGERS M.D. on 07/08/2017 11:16 AM. Narrative [...] Interface, Radiant Results - 07/08/2017 11:22 AM BOND RUNNER CHEST 2 VIEWS . Clinical history: s/p [...] FLORIN ROGERS M.D. on 07/08/2017 11:16 AM. in this encounter Visit Diagnoses Diagnosis Lung mass Swelling, mass, or lump in chest in this encounter
--- OUTSIDE RECORDS SUMMARY | 2017-08-10 06:55 | XMS REPORT | Encounter Summary ---
Author Author [facility] Organization [facility] Address Unknown Phone Unavailable Care Team Providers Care Certified Mortician Name Role Phone PCP Unavailable Reason for Visit * Reason Comments Records Request Teresa Gonzalez MD Encounter Details Date Type Department Care Team Description 07/20/2017 Documentation [facility] Bonnie Humphrey Records Request (Teresa Segal [address] [facility] MD Lisa) [facility] [address] [place] [address] Social History Tobacco Use Types Packs/Day Years Used Date Current Every Day Smoker Cigarettes 0.5 Smokeless Tobacco: Never Used Alcohol Use Drinks/Week oz/Week Comments No Sex Assigned at Date Recorded Not on file as of this encounter Functional Status Functional Status Response Date of Assessment Does the patient have a hearing impairment: No 06/21/2017 as of this encounter Progress Notes * Bonnie Humphrey - 07/20/2017 1:09 PM [place] [facility] Request for the following medical records for purpose of continuity of care: Nydia Arriaga 1945 has an appointment with Dr. Orellana on 07/29/17 Please send the following if available: OV notes Medication list Problem list Recent Labs Last 4 EKG's Ablation Notes Cath reports Device Implant notes Last Device check Cardioversion Event monitor report with ECG strips Holter monitor report with ECG strips Stress Test ECHO any additional cardiac information / testing. Please Fax to: [phone] Thank you, Bonnie Humphrey [facility] MANAGING MANAGER 1 in this encounter Plan of Treatment Date Type Specialty Care Team Description 07/08/2017 Procedure Pass Cardiothoracic Surgery as of this encounter Visit Diagnoses Not on filein this encounter
--- OUTSIDE RECORDS SUMMARY | 2017-08-10 06:55 | XMS REPORT | Encounter Summary ---
Author Author [facility] Organization [facility] Address Unknown Phone Unavailable Care Team Providers Care Dumper [employer] Name Role Phone PCP Unavailable Reason for Referral * Consult, Test & Treat Status Reason Specialty Diagnoses / Referred By Referred To Procedures Contact Contact New Request Specialty Oncology Diagnoses Kwame Khan Chao H, MD Services Primary MD Daniel [address] Required adenocarcinoma [address] [facility], [address] unspecified [address] [place] [address] laterality (HCC) [place], [place] Phone: [phone] Phone: * Radiology Services Status Reason Specialty Diagnoses / Referred By Referred To Procedures Contact Contact New Request Radiology Diagnoses Daniel Jonesi, 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 lung, St unspecified [place], [place] laterality (HCC) [address] P Phone: [facility] [phone] CT CHEST WO Fax: CONTRAST [phone] Reason for Visit * Reason Comments Post Operative Visit LEFT VIDEO ASSISTED THORACOSCOPY, LEFT UPPER LOBECTOMY , CXR today Encounter Details Date Type Department Care Team Description 07/08/2017 Office Visit [facility] Daniel Khan, Primary adenocarcinoma of Cardiovascular Surgeons lung, unspecified [address] laterality (HCC) ([place] [address] [place] [address] Dx);Surgery follow-up [phone] [place], [place] [id number] Social History Tobacco Use Types Packs/Day Years Used Date Current Every Day Smoker Cigarettes 0.5 Smokeless Tobacco: Never Used Alcohol Use Drinks/Week oz/Week Comments No Sex Assigned at Date Recorded Not on file as of this encounter Last Filed Vital Signs Vital Sign Reading Time Taken Blood Pressure 162/88 07/08/2017 10:37 AM PUMPER GAGER APPRENTICE Pulse 67 07/08/2017 10:37 AM PUMPER GAGER APPRENTICE Temperature 36.6 C (97.9 F) 07/08/2017 10:37 AM PUMPER GAGER APPRENTICE Respiratory Rate - - Oxygen Saturation 96% 07/08/2017 10:37 AM PUMPER GAGER APPRENTICE Inhaled Oxygen - - Concentration Weight 76.9 kg (169 lb 9.6 oz) 07/08/2017 10:37 AM PUMPER GAGER APPRENTICE Height 170.2 cm (5' 7") 07/08/2017 10:37 AM PUMPER GAGER APPRENTICE Body Mass Index 26.56 07/08/2017 10:37 AM PUMPER GAGER APPRENTICE in this encounter Functional Status Functional Status Response Date of Assessment Does the patient have a hearing impairment: No 06/21/2017 as of this encounter Progress Notes * Tamar Jones APRN-MEDICAL AIDES TEACHER - 07/08/2017 11:45 AM PUMPER GAGER APPRENTICE Formatting of this note may be different from the original. Date of Service: 07/08/2017 Subjective: Nydia Arriaga is a 72 y.o. female. History of Present Illness Ms Arriaga presents for routine postoperative evaluation. She initially presented with biopsy-proven lung cancer. Initially there was concern of a contralateral lesion as well and she was referred for radiation therapy closer to home. Left sided lesion, despite SBRT, has continued to increase in size. Therefore on 06/16/2017 she underwent a video-assisted thoracoscopic Left upper lobectomy with associated thoracic lymphadenectomy by Dr. Khan. On POD #1 she developed new Atrial Fibrillation and was treated with Metoprolol and converted back to NSR on POD #2. She will follow up with Cardiology in one month. Chest tube was removed on POD#1 and she was discharged home on POD# 2 to her daughters home. Final pathology demonstrated: A. 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 Addendum Diagnosis The original diagnosis remains unchanged. Interpretation: No PD-L1 expression (Tumor proportion Score <1%) Tumor Size : 1.8 x 1.6 x 1.2 cm, Pathologic Staging (pTNM) [id number] Today she states that she is doing well. She reports only soreness of her incisions. She has used only tylenol for pain control which was helpful. She denies cough, hemoptysis, shortness of air, chest pain, fevers, chills, night sweats, unintentional weight loss, new headaches, and bone pain. She has previously followed with Dr. Ryan in [place] but would like a referral to transfer oncologic care to our facility. CXR today demonstrates Improved aeration of the left lung with mild persistent atelectasis or scarring in the left lung base.Mild blunting of the left costophrenic angle, likely scarring or small residual pleural effusion. Review of Systems Constitution: Negative. HENT: Negative. Eyes: Negative. Cardiovascular: Negative. Respiratory: Negative. Endocrine: Negative. Hematologic/Lymphatic: Negative. Skin: Negative. Musculoskeletal: Negative. Gastrointestinal: Negative. Genitourinary: Negative. Neurological: Negative. Psychiatric/Behavioral: Negative. Allergic/Immunologic: Negative. Objective: acetaminophen (TYLENOL) 500 mg tablet Take 2 tablets by mouth every 6 hours while awake. Max of 4,000 mg of acetaminophen in 24 hours. amLODIPine (NORVASC) 10 mg tablet Take 10 mg by mouth daily after lunch. aspirin EC 81 mg tablet Take 81 mg by mouth daily. atorvastatin (LIPITOR) 10 mg tablet Take 10 mg by mouth every 48 hours. buPROPion SR(+) (WELLBUTRIN-SR) 150 mg tablet Take only one tablet in the AM on 06/19/17, then start taking one tablet twice daily on 06/20/17 Indications: SMOKING CESSATION calcium carbonate/vitamin D-3 (OSCAL-500+D) 1250 mg/200 unit tablet Take 1 tablet by mouth daily. Calcium Carb 1250mg delivers 500mg elemental Ca cholecalciferol (VITAMIN D-3) 1,000 units tablet Take 1,000 Units by mouth daily. dicyclomine (BENTYL) 10 mg capsule Take 10 mg by mouth three times daily as needed. lactobacillus rhamnosus GG (LACTOBACILLUS RHAMNOSUS (GG)) 15 billion cell cpSP capsule Take 1 capsule by mouth as directed twice daily with meals. metoprolol (LOPRESSOR) 100 mg tablet Take 100 mg by mouth twice daily. nicotine polacrilex (COMMIT) [address] 1 lozenge inside cheek ( side of mouth) as Needed. omega 7-oaa-ywb-fish oil 300-1,000 mg capsule Take 3 Caps by mouth daily. pantoprazole DR (PROTONIX) 40 mg tablet Take 40 mg by mouth daily. Simethicone 125 mg cap Take 1 capsule by mouth twice daily. valsartan (DIOVAN) 320 mg tablet Take 320 mg by mouth daily. vitamin E 100 unit capsule Take 100 Units by mouth daily. vitamins, multiple tablet Take 1 tablet by mouth daily. Vitals: 07/08/17 1037 BP: 162/88 Pulse: 67 Temp: 36.6 C (97.9 F) SpO2: 96% Weight: 76.9 kg (169 lb 9.6 oz) Height: 1.702 m (5' 7") Body mass index is 26.56 kg/(m^2). Physical Exam Constitutional: She is oriented to person, place, and time. She appears well- developed and well-nourished. HENT: Head: Normocephalic. Neck: Neck supple. Cardiovascular: Normal rate, regular rhythm and normal heart sounds. Pulmonary/Chest: Effort normal and breath sounds normal. Musculoskeletal: Normal range of motion. Lymphadenopathy: She has no cervical adenopathy. Neurological: She is alert and oriented to person, place, and time. Skin: Skin is warm and dry. Psychiatric: She has a normal mood and affect. Her behavior is normal. Judgment and thought content normal. 1. Primary adenocarcinoma of lung, unspecified laterality (HCC) 2. Surgery follow-up Overall, we are very pleased with Nydia Arriaga's postoperative progress. At this time we will plan to see her back in [address] chest with contrast. We will also refer her to Dr. Ajit Puente and plan to coordinate our follow up for ease of the patient. However, should any issues or concerns arise prior; we would be more than happy to see her sooner. Thank you very much for allowing us to participate in her care. Please do not hesitate to contact us with any questions or concerns. [facility] Thor[facility] Assessment and Plan: Mrs. Nydia Arriaga is a 72-year-old, who underwent left upper lobectomy after failure of SVRT to treat the lesion. The patient's tumor and final pathology were reviewed in our multidisciplinary tumor board. The patient will require continued long-term radiographic surveillance. The patient has received chemotherapy in the past. She will seek a second opinion from one of our medical oncologist's regarding the role for any additional adjuvant therapy. I will plan on continued radiographic followup on a q6 month basis. The patient has done remarkably well since her operation. We provided her with a return to work letter. In addition, on examination she has no shortness of breath, and her single site incision is well healed. The patient has had no issues with respiratory complications, nor has she had any issues with pain control. ([id number]) in this encounter Plan of Treatment Date Type Specialty Care Team Description 07/08/2017 Procedure Pass Cardiothoracic Surgery Name Priority Associated Diagnoses Order Schedule CT CHEST WO CONTRAST Routine Primary adenocarcinoma of Expected: 2017 lung, unspecified (Approximate), Expires: laterality (HCC) 07/08/2018 Name Priority Associated Diagnoses Order Schedule AMB REFERRAL TO ONCOLOGY Routine Primary adenocarcinoma of Ordered: 01/2017 lung, unspecified laterality (HCC) as of this encounter Visit Diagnoses Diagnosis Primary adenocarcinoma of lung, unspecified laterality (HCC) - Primary Surgery follow-up Follow-up examination, following unspecified surgery in this encounter
--- OUTSIDE RECORDS SUMMARY | 2017-08-10 06:55 | XMS REPORT | Encounter Summary ---
Author Author [facility] Organization [facility] Address Unknown Phone Unavailable Care Team Providers Care Spring Salvage Worker Name Role Phone PCP Unavailable Reason for Visit * Reason Comments New Patient Hosp f\u - A-Fib while inpatient Encounter Details Date Type Department Care Team Description 07/20/2017 Patient Profile [facility] Bonnie Humphrey New Patient (Hosp f\u - [address] A-Fib while inpatient ) [facility] [address] [place] [address] Social History Tobacco Use Types Packs/Day Years [...] Progress Notes * Bonnie Humphrey - 07/20/2017 1:18 PM GALLERY OR MUSEUM ATTENDANT Spoke with pt. Pt said she wants to cancel appt. 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 07/20/17 in this encounter Plan of Treatment Date Type Specialty Care Team Description 07/08/2017 Procedure Pass Cardiothoracic Surgery as of this encounter Visit Diagnoses Not on filein this encounter
--- OUTSIDE RECORDS SUMMARY | 2017-08-10 06:56 | XMS REPORT | Encounter Summary ---
Author Author [facility] Organization [facility] Address Unknown Phone Unavailable Care Team Providers Care Vice President Payment Name Role Phone PCP Unavailable Encounter Details Date Type Department Care Team Description 06/16/2017 Procedure Pass Cardiovascular Operating Room [address] [place] [address] Social History Tobacco Use Types Packs/Day Years [...]
--- OUTSIDE RECORDS SUMMARY | 2017-08-10 06:56 | XMS REPORT | Encounter Summary ---
Author Author [facility] Organization [facility] Address Unknown Phone Unavailable Care Team Providers Care Route Sales Representative Name Role Phone PCP Unavailable Reason for Visit * Auth/Cert Status Reason Specialty Diagnoses / Referred By Referred To Procedures Contact Contact Diagnoses Lung mass UNKNOWN P rocedures LEFT VATS LEFT UPPER LOBECTOMY Encounter Details Date Type Department Care Team Description 06/16/2017 [facility] Cardiothor Prgrsv Daniel Cruz, CAD ( coronary artery - Encounter [id number] Zack[address] Miller MD disease) 06/18/2017 [place] [address] [address] [facility] [phone] [address] [place] [address] [phone] Social History Tobacco Use Types Packs/Day Years Used Date Current Every Day Smoker Cigarettes 0.5 Smokeless Tobacco: Never Used Sex Assigned at Date Recorded Not on file as of this encounter Last Filed Vital Signs Vital Sign Reading Time Taken Blood Pressure 134/78 06/18/2017 11:50 AM [facility] RESIDENT Pulse 68 06/18/2017 11:50 AM [facility] RESIDENT Temperature 36.4 C (97.5 F) 06/18/2017 11:50 AM [facility] RESIDENT Respiratory Rate - - Oxygen Saturation 96% 06/18/2017 12:22 PM [facility] RESIDENT Inhaled Oxygen - - Concentration Weight 77.3 kg (170 lb 6.7 oz) 06/16/2017 7:04 AM [facility] RESIDENT Height 167.6 cm (5' 6") 06/16/2017 7:04 AM [facility] RESIDENT Body Mass Index 27.51 06/16/2017 7:04 AM [facility] RESIDENT in this encounter Functional Status Functional Status Response Date of Assessment Does the patient have a hearing impairment: No 06/16/2017 as of this encounter Discharge Summaries * Elena Guerrero APRN - 06/18/2017 1:59 PM [facility] RESIDENT Formatting of this note may be different from the original. Physician Discharge Summary Name: Yumi Arriaga Date Of : 1945 Age: 72 years Admit date: 06/16/2017 Discharge date: 06/18/2017 Attending Physician: Dr Khan Service: Cardiothor Surg Physician Summary completed by: ALIDA Lee Reason for hospitalization: Lung cancer. Significant PMH: Past Medical History: Diagnosis Date Arthritis CAD (coronary artery disease) Cancer (HCC) neuroendocrine cancer lung COPD (chronic obstructive pulmonary disease) (HCC) Dyspnea Essential hypertension Gastrointestinal disorder GERD Hyperlipidemia Lung mass PREM Psychiatric illness depression RBBB Allergies: Sulfa (sulfonamide antibiotics) and Lisinopril Admission Physical Exam notable for: Vitals: 05/27/17 1223 BP: 158/86 Pulse: 65 Temp: 36.9 C (98.4 F) SpO2: 99% Weight: 78.6 kg (173 lb 3.2 oz) Height: 1.702 m (5' 7") Body mass index is 27.13 kg/(m^2). Physical Exam Constitutional: She is oriented to person, place, and time. She appears well- developedand well-nourished. HENT: Head: Normocephalic. Neck: Neck supple. Cardiovascular: Normal rate, regular rhythmand normal heart sounds. Pulmonary/Chest: Effort normaland breath sounds normal. Musculoskeletal: Normal range of motion. Lymphadenopathy: She has no cervical adenopathy. Neurological: She is alertand oriented to person, place, and time. Skin: Skin is warmand dry. Psychiatric: She has a normal mood and affect. Her behavior is normal. Judgment and thought contentnormal. Admission Lab/Radiology studies notable for: Results for YUMI ARRIAGA ( ) as of 06/16/2017 07:20 Ref. Range 06/15/2017 11:22 06/15/2017 11:31 Hemoglobin Latest Ref Range: 12.0 - 15.0 GM/DL 14.4 Hematocrit Latest Ref Range: 36 - 45 % 42.3 Platelet Count Latest Ref Range: 150 - 400 K/UL 284 White Blood Cells Latest Ref Range: 4.5 - 11.0 K/UL 4.8 RBC Latest Ref Range: 4.0 - 5.0 M/UL 4.60 MCV Latest Ref Range: 80 - 100 FL 92.2 MCH Latest Ref Range: 26 - 34 PG 31.3 MCHC Latest Ref Range: 32.0 - 36.0 G/DL 34.0 MPV Latest Ref Range: 7 - 11 FL 7.9 RDW Latest Ref Range: 11 - 15 % 14.1 INR Latest Ref Range: 0.8 - 1.2 0.9 APTT Latest Ref Range: 21.0 - 39.0 SEC 26.7 Record Check Unknown 2ND TYPE REQUIRED ABO/RH(D) Unknown A POS Antibody Screen Unknown NEG Crossmatch Expires Unknown 06/18/2017 Sodium Latest Ref Range: 137 - 147 MMOL/L 139 Potassium Latest Ref Range: 3.5 - 5.1 MMOL/L 3.9 Chloride Latest Ref Range: 98 - 110 MMOL/L 104 CO2 Latest Ref Range: 21 - 30 MMOL/L 29 Anion Gap Latest Ref Range: 3 - 12 6 Blood Urea Nitrogen Latest Ref Range: 7 - 25 MG/DL 15 Creatinine Latest Ref Range: 0.4 - 1.00 MG/DL 0.86 eGFR Non Latest Ref Range: >60 mL/min >60 eGFR Latest Ref Range: >60 mL/min >60 Glucose Latest Ref Range: 70 - 100 MG/DL 108 (H) Albumin Latest Ref Range: 3.5 - 5.0 G/DL 3.9 Calcium Latest Ref Range: 8.5 - 10.6 MG/DL 10.3 Total Bilirubin Latest Ref Range: 0.3 - 1.2 MG/DL 0.3 Total Protein Latest Ref Range: 6.0 - 8.0 G/DL 6.7 AST (SGOT) Latest Ref Range: 7 - 40 U/L 19 ALT (SGPT) Latest Ref Range: 7 - 56 U/L 12 Alk Phosphatase Latest Ref Range: 25 - 110 U/L 50 Units Ordered Unknown 0 Results for YUMI ARRIAGA ( ) as of 06/16/2017 07:20 Ref. Range 06/15/2017 13:08 06/15/2017 13:08 PFT COMPLETE PULM FUNCTION Unknown Rpt FVC-Pre Latest Units: L 2.52 FVC-%Pred-pre Latest Units: % 84 FEV1-Pre Latest Units: L 2.05 FEV1-%Pred-Pre Latest Units: % 91 [id number] Latest Units: L/sec 2.15 PXX8039-%Pred-Pre Latest Units: % 118 PEF-Pre Latest Units: L/min 355.3 ICSVC-Pre Latest Units: L 1.52 TGVPleth-Pre Latest Units: L 2.77 VCSVC-Pre Latest Units: L 2.50 ERVSVC-Pre Latest Units: L 0.98 RVPleth-Pre Latest Units: L 2.14 RVPleth-%Pred-Pre Latest Units: % 94 TLCPleth-Pre Latest Units: L 4.31 TLCPleth-%Pred-Pre Latest Units: % 83 DLCOunc-Pred Latest Units: ml/min/mmHg 20.45 DLCOunc-Pre Latest Units: ml/min/mmHg 16.75 DLCOunc-%Pred-Pre Latest Units: % 81 DLCOunc-SD Latest Units: ml/min/mmHg 3.75 -0.986 DLCOunc-LLN Latest Units: ml/min/mmHg 12.95 DLCOunc-ULN Latest Units: ml/min/mmHg 27.95 DLVA-Pred Latest Units: ml/min/mmHg/L 4.23 DLVA-Pre Latest Units: ml/min/mmHg/L 4.16 DLVA-%Pred-Pre Latest Units: % 98 DLVA-SD Latest Units: ml/min/mmHg/L 0.80 -0.090 DLVA-LLN Latest Units: ml/min/mmHg/L 2.63 DLVA-ULN Latest Units: ml/min/mmHg/L 5.83 CT imaging 1.5 x 1.[address] dated 03/23/17, and development of an additional GGO in the PREM adjacent to previously treated nodule. RML is not noted on outside report, but appears to be stable. Brief Hospital Course: Ms Arriaga is a 72-year-old with biopsy-proven lung cancer on the left. She was seen originally several months ago in our clinic. There was concern for potential bilateral disease with a contralateral lesion. Based on this, the patient was felt to have more advanced stage disease. She had undergone chemotherapy and radiotherapy to the left upper lobe lesion, and the right continued to be followed. The patient has had no progression of disease on the right. However, the left side, despite SBRT, has continued to increase in size. Based on these findings, the patient was restaged with PET scan and brought to the operating room for surgical resection The patient was admitted to [facility] on 06/16/2017 for elective Left upper lobectomy performed through a thoracoscopic technique with associated thoracic lymphadenectomy. by Dr Khan. She was placed postoperatively on HC4 unit through out the postoperative hospitalization. She developed left knee pain on POD #1, she has a history of left knee arthritis and was told she will need a total knee replacement. She currently is followed by an orthopedic in her home town. A 3 view left knee xray was done and Orthopedic surgery was consulted for this pain. No new orders were given. On POD #1 at 1830 the patient developed new Atrial Fibrillation and was treated with Metoprolol. She remained in stable condition. She converted back to NSR on POD #2. She was seen by Cardiology service and remained on Metoprolol 100mg BID. She will follow up with Cardiology in one month. She increased her activity, with Physical therapy and Occupational therapy consulted to evaluate her gait, ability to walk on steps and make recommendations. She progressed to a regular diet.The chest tube was removed on POD#1 with a stable f/u 2 view CXR. She had normal bowel and bladder function, and was stable to be discharged home on POD# 2 to her daughters home. Surgical pathology is pending on discharge. Condition at Discharge: Stable Discharge Diagnoses: Hospital Problems Active Problems Lung mass Dyspnea CAD (coronary artery disease) Essential hypertension Hyperlipidemia RBBB Tobacco abuse Surgical Procedures: Left upper lobectomy performed through a thoracoscopic technique with associated thoracic lymphadenectomy. Significant Diagnostic Studies and Procedures: noted in brief hospital course Consults: Anesthesiology, Cardiology and Orthopedics Patient Disposition: Home Patient instructions/medications: CHEST 2 VIEWS Standing Status: Future Standing Exp. Date: 06/18/18 Reason for exam:(Sign,Symptom,Reason) s/p left vat Activity as Tolerated It is important to keep increasing your activity level after you leave the hospital. Moving around can help prevent blood clots, lung infection (pneumonia ) and other problems. Gradually increasing the number of times you are up moving around will help you return to your normal activity level more quickly. Continue to increase the number of times you are up to the chair and walking daily to return to your normal activity level. Begin to work toward your normal activity level at discharge Lifting Restrictions Do not lift more than 10 pounds until after follow-up appointment. Driving Restrictions No driving while taking pain medication and until physician approval at follow- up appointment. Report These Signs and Symptoms Report the following symptoms: Fever greater than 101F Chest pain Difficulty breathing Cough Increasing redness/swelling at chest tube site Foul smelling or purulent drainage from site. Body aches Questions About Your Stay For questions or concerns regarding your hospital stay. Call [phone] Discharging attending physician: DANIEL KHAN [[id number]] Regular Diet You have no dietary restriction. Please continue with a healthy balanced diet. Incision Care *Keep your incision clean and dry. *May shower *Do not submerge incision in tub, pool, hot tub, or lowry for 4 weeks. *There are stitches to be removed. Surgical adhesive will begin to fall off in 10-14 days. *Your incision should gradually look better each day. If you notice unusual swelling, redness, drainage, have increasing pain at the site, or have a fever greater than 100 degrees, notify your physician immediately. Suture/Staple Removal You will need your frederic removed at follow up appointment. Return Appointment You have a chest xray at 10:45, then you will see Dr Khan at 11:45 [facility] Provider DANIEL KHAN [[id number]] Location [facility] Appointment date: 07/08/2017 Appointment time: 10:45 AM Opioid (Narcotic) Safety Information OPIOID (NARCOTIC) PAIN MEDICATION SAFETY We care about your comfort, and believe you need opioid medications at this time to treat your pain. An opioid is a strong pain medication. It is only available by prescription for moderate to severe pain. Usually these medications are used for only a short time to treat pain, but sometimes will be prescribed for longer. Talk with your doctor or nurse about how long they expect you to need this medication. When used the right way, opioids are safe and effective medications to treat your pain, even when used for a long time. Yet, when used in the wrong way, opioids can be dangerous for you or others. Opioids do not work for everyone. Most patients do not get full relief of their pain from opioid medication; full relief of your pain may not be possible. For your safety, we ask you to follow these instructions: *Only take your opioid medication as prescribed. If your pain is not controlled with the prescribed dose, or the medication is not lasting long enough, call your doctor. *Do not break or crush your opioid medication unless your doctor or pharmacist says you can. With certain medications, this can be dangerous, and may cause . *Never share your medications with others, even if they appear to have a good reason. Never take someone else's pain medication-this is dangerous, and illegal (a crime). Overdoses and deaths have occurred. *Keep your opioid medications safe, as you would with hamm, in a lock box or similar container. *Make sure your opioids are going to be secure, especially if you are around children or teens. *Talk with your doctor or pharmacist before you take other medications. *Avoid driving, operating machinery, or drinking alcohol while taking opioid pain medication. This may be unsafe. Pain medications can cause constipation. Constipation is bowel movements that are less often than normal. Stools often become very hard and difficult to pass. This may lead to stomach pain and bloating. It may also cause pain when trying to use the bathroom. Constipation may be treated with suppositories, laxatives or stool softeners. A diet high in fiber with plenty of fluids helps to maintain regular, soft bowel movements. Return Appointment You have an appointment with the [employer] Supervisor Dr Tayla Alva on 07/29/2017 at 1: 15pm at the [address] [place], [place]. [facility] Provider NICA ALVA [[id number]] Appointment date: 07/29/2017 Appointment time: 1:15 PM Discharge Comments Continue to take you Metoprolol 100 mg as prescribed. If you experience chest palpitations at home you may take 1/2 tablet once per day. If this does not help call your PCP, or call 911 for help. You should call if you experience chest pain, shortness of breath, sweating, Nausea or vomiting, pain in your neck shoulders, arm or back. Discharge Comments Follow up with your Primary Care Physician for further evaluation and treatment of your left knee pain. You may want to rest the left knee, elevate, and ice the area as needed for comfort. Call your PCP with new symptoms regarding you knee. Current Discharge Medication List START taking these medications Details acetaminophen (TYLENOL) 500 mg tablet Take 2 tablets by mouth every 6 hours while awake. Max of 4,000 mg of acetaminophen in 24 hours. Refills: 0 PRESCRIPTION TYPE: OTC buPROPion SR(+) (WELLBUTRIN-SR) 150 mg tablet Take only one tablet in the AM on 06/19/17, then start taking one tablet twice daily on 06/20/17 Indications: SMOKING CESSATION Qty: 180 tablet, Refills: 3 PRESCRIPTION TYPE: Print milk of magnesia (CONC) 2,400 mg/10 mL oral suspension Take 10 mL by mouth daily. Indications: CONSTIPATION Qty: 360 mL PRESCRIPTION TYPE: OTC nicotine polacrilex (COMMIT) [address] 1 lozenge inside cheek (side of mouth) as Needed. Qty: 100 tablet, Refills: 0 PRESCRIPTION TYPE: Normal oxyCODONE (ROXICODONE, OXY-IR) 5 mg tablet Take 1-2 tablets by mouth every 4 hours as needed for Pain Qty: 75 tablet, Refills: 0 PRESCRIPTION TYPE: Print polyethylene glycol 3350 (MIRALAX) 17 g packet Take 1 packet by mouth daily. Qty: 12 each PRESCRIPTION TYPE: OTC senna/docusate (SENOKOT-S) 8.6/50 mg tablet Take 1 tablet by mouth twice daily. Refills: 0 PRESCRIPTION TYPE: OTC traMADol (ULTRAM) 50 mg tablet Take 1-2 tablets by mouth every 6 hours as needed for Pain. Qty: 60 tablet, Refills: 0 PRESCRIPTION TYPE: Print CONTINUE these medications which have NOT CHANGED Details amLODIPine (NORVASC) 10 mg tablet Take 10 mg by mouth daily after lunch. PRESCRIPTION TYPE: Historical Med aspirin EC 81 mg tablet Take 81 mg by mouth daily. PRESCRIPTION TYPE: Historical Med atorvastatin (LIPITOR) 10 mg tablet Take 10 mg by mouth every 48 hours. PRESCRIPTION TYPE: Historical Med calcium carbonate/vitamin D-3 (OSCAL-500+D) 1250 mg/200 unit tablet Take 1 tablet by mouth daily. Calcium Carb 1250mg delivers 500mg elemental Ca PRESCRIPTION TYPE: Historical Med cholecalciferol (VITAMIN D-3) 1,000 units tablet Take 1,000 Units by mouth daily. PRESCRIPTION TYPE: Historical Med dicyclomine (BENTYL) 10 mg capsule Take 10 mg by mouth three times daily as needed. PRESCRIPTION TYPE: Historical Med lactobacillus rhamnosus GG (LACTOBACILLUS RHAMNOSUS (GG)) 15 billion cell cpSP capsule Take 1 capsule by mouth as directed twice daily with meals. PRESCRIPTION TYPE: Historical Med metoprolol (LOPRESSOR) 100 mg tablet Take 100 mg by mouth twice daily. PRESCRIPTION TYPE: Historical Med omega 2-oal-sei-fish oil 300-1,000 mg capsule Take 3 Caps by mouth daily. PRESCRIPTION TYPE: Historical Med pantoprazole DR (PROTONIX) 40 mg tablet Take 40 mg by mouth daily. PRESCRIPTION TYPE: Historical Med Simethicone 125 mg cap Take 1 capsule by mouth twice daily. PRESCRIPTION TYPE: Historical Med valsartan (DIOVAN) 320 mg tablet Take 320 mg by mouth daily. PRESCRIPTION TYPE: Historical Med vitamin E 100 unit capsule Take 100 Units by mouth daily. PRESCRIPTION TYPE: Historical Med vitamins, multiple tablet Take 1 tablet by mouth daily. PRESCRIPTION TYPE: Historical Med Scheduled appointments: Jul 08, 2017 11:45 AM [facility] RESIDENT Post - Op with Daniel Khan MD [facility] ([facility] [address] [place] [id number] Pending items needing follow up: Surgical pathology, suture removal, and smoking cessation. . . Signed: ALIDA Lee [id number] 06/18/2017 cc: Primary Care Physician: Teresa Gonzalez Verified Referring physicians: Teresa Gonzalez MD Additional provider(s): in this encounter Discharge Instructions * Discharge Instr - Case Management - Ceferino Ibrahim - 06/18/2017 2:47 PM [facility]ACIAL SURGERY RESIDENT Please call your financial services education consultant if you have any questions about home care re: home health, equipment, etc. [phone] in this encounter Medications at Time of [...] cheek (side of mouth) as Needed. omega 0-ckz-nes-fish oil Take 3 Caps by mouth 300-1,000 [...] needed for Pain. as of this encounter Progress Notes * Tere Bui RN - 06/18/2017 4:31 PM [facility] AND [facility]ILL[facility]ACIAL SURGERY RESIDENT PIV d/c'd. Tele d/c'd. Discharge instructions given to pt. Prescriptions faxed to Pharmacy. Pt transported [facility] with all personal belongings. * Daniel Khan MD - 06/18/2017 3:00 PM ORAL AND MAXILLOFACIAL SURGERY RESIDENT The patient is doing well . After working with phys ical therapy the patient is able to ambulate safel y and upstairs. Patient remains in normal sinus r hythm. We will follow up with cardiology recommend ations over the course of the next week. Plan on discharge today with foll ow up in 1 to 2 weeks. * Teetee Robles, PT - 06/18/2017 1:32 PM ORAL AND MAXILLOFACIAL SURGERY RESIDENT PHYSICAL THERAPY PROGRESS NOTE / DISCHARGE MOBILITY: Mobility Progressive Mobility Level: Walk in hallway Distance Walked (feet): 250 ft Level of Assistance: Assist X1 Assistive Device: Walker;None Time Tolerated: 0-10 minutes Activity Limited By: Fatigue SUBJECTIVE: Subjective Significant hospital events: 72 yo female s/p left upper lobectomy 06/16 Mental / Cognitive Status: Alert;Oriented;Cooperative;Follows Commands Persons Present: Sister;Daughter Pain: Patient complains of pain;Patient does not rate pain Pain Location: Post-surgical Pain Interventions: Patient agrees to participate in therapy Ambulation Assist: Independent Mobility in Community without Device Patient Owned Equipment: None Home Situation: Lives Alone Type of Home: House Entry Stairs: 6-10 Stairs In-Home Stairs: 6-10 Stairs BED MOBILITY/TRANSFERS: Bed Mobility/Transfers Comments: Bed mobility not assessed this date due to patient being up in chair at start and end of session. Transfer Type: Sit to Stand Transfer: Assistance Level: From;Bed Side Chair;Standby Assist Transfer: Assistive Device: None Transfers: Type Of Assistance: Verbal Cues;For Safety Considerations End Of Activity Status: (Patient working with OT at sink ) GAIT: Gait Gait Distance: 250 feet Gait: Assistance Level: Standby Assist (Progressed from CGA) Gait: Assistive Device: Roller Walker;None Gait: Descriptors: Decreased knee extension in stance phase LLE;Swing-Through Gait;No balance loss Comments: Patient reports no knee pain during session, reports it only flares up with "a lot" of activity. Patient ambulated about 150 feet without walker and CGA - demonstrates increased lateral trunk sway but no balance loss. Patient states she does not need a walker at discharge. She cane furniture walk until she gets her full strength back, therapist agreeable. Stairs: Number Climbed: 9 Stairs: Descriptors: Ascend;Descend;Non-Reciprocal Stairs: Assistance Level: Standby Assist Stairs: Assistive Device: One Rail Activity Limited By: Complaint of Fatigue;Patient Choice Comments: Patient reports no concerns with mobility, navigating stairs, etc at home. Educated on safety and energy conservation techniques. EDUCATION: Education Persons Educated: Patient/Family Patient Barriers To Learning: None Noted Interventions: Repetition of Instructions Teaching Methods: Verbal Instruction Patient Response: Verbalized Understanding Topics: Plan/Goals of PT Interventions;Use of Assistive Device/Orthosis; Mobility Progression;Safety Awareness;Up with Assist Only;Importance of Increasing Activity;Ambulate With Nursing;Recommend Continued Therapy ASSESSMENT/PROGRESS: Assessment/Progress Assessment/Progress: Patient current status and level of safety suggests progression of activity can be achieved with nursing and/or family and does not require physical therapist intervention AM-PAC 6 Clicks Basic Mobility Inpatient Turning from your back to your side while in a flat bed without using bed rails : None Moving from lying on your back to sitting on the side of a flatbed without using bedrails : None Moving to and from a bed to a chair (including a wheelchair): None Standing up from a chair using your arms (e.g. wheelchair, or bedside chair): None To walk in hospital room: None Climbing 3-5 steps with a railing: A Little Raw Score: 23 Standardized (T-scale) Score: 50.88 Basic Mobility CMS 0-100%: 16.55 CMS G Code Modifier for Basic Mobility: CI GOALS: Goals Goal Formulation: With Patient/Family Time For Goal Achievement: 5 days Pt Will Go Supine To/From Sit: w/ Stand By Assist, Discontinued Pt Will Transfer Sit to Stand: w/ Stand By Assist, Met Pt Will Ambulate: Greater than 200 Feet, w/ No Device, w/ Stand By Assist, Partly Met Pt Will Go Up / Down Stairs: 6-10 Stairs, w/ Stand By Assist, Met PLAN: Plan Plan Frequency: No Further Treatment RECOMMENDATIONS: PT Discharge Recommendations PT Discharge Recommendations: Home with Assistance Equipment Recommendations: None Therapist: Teetee Robles, PT, DPT Date: 06/18/2017 * Kami Castaneda, OT - 06/18/2017 1:15 PM ORAL AND MAXILLOFACIAL SURGERY RESIDENT Formatting of this note may be different from the original. OCCUPATIONAL THERAPY ASSESSMENT/DISCHARGE NOTE Patient Name: Yumi Arriaga Room/Bed: [place] [address] Admitting Diagnosis: UNKNOWN Mass of left lung Past Medical History: Diagnosis Date Arthritis CAD (coronary artery disease) Cancer (HCC) neuroendocrine cancer lung COPD (chronic obstructive pulmonary disease) (HCC) Dyspnea Essential hypertension Gastrointestinal disorder GERD Hyperlipidemia Lung mass PREM Psychiatric illness depression RBBB Mobility Progressive Mobility Level: Walk in hallway Distance Walked (feet): 250 ft Level of Assistance: Assist X1 Assistive Device: Walker;None Time Tolerated: 0-10 minutes Activity Limited By: Fatigue Subjective Pertinent Dx per Physician: h/o lung nodules; c/o LLE knee pain; s/p left upper lobectomy 06/16 Precautions: Falls Pain / Complaints: Patient has no c/o pain;Patient agrees to participate in therapy Comments: Left seated upright in chair with needs within reach. Instructed pt to utilize call light for transfers/ambulation and pt verbalized understanding. Objective Psychosocial Status: Willing and Cooperative to Participate Persons Present: Sister;Daughter Home Living Type of Home: House Bathroom Shower / Tub: Tub Only Bathroom Toilet: Standard Prior Function Level Of [place]: Independent with ADLs and functional transfers; Independent with homemaking w/ ambulation Lives With: Alone Other Function Comments: Plans to d/c to daughter's house- daughter has 10 stairs to enter & tub/shower. Daughter available to assist prn. ADL's Where Assessed: Chair;Standing at Sink (hallway) Grooming Assist: Independent Grooming Deficits: No Assist Needed LE Dressing Assist: Independent LE Dressing Deficits: No Assist Needed Functional Transfer Assist: Independent Functional Transfer Deficits: No Assist Needed Comment: Demonstrates safety awareness WFL and no loss of balance throughout session. Discussed recommendations for energy conservation and home safety including shower chair recommendation if knee pain continues. Pt verbalized understanding. Activity Tolerance Endurance: 3/5 Tolerates 25-30 Minutes Exercise w/Multiple Rests Sitting Balance: 4+/5 Moves/Returns Trunkal Midpoint 1-2 Inches in Multiple Planes Cognition Overall Cognitive Status: WFL to Adequately Complete Self Care Tasks Safely UE AROM Overall BUE AROM WNL: Yes Sensory Overall Sensory: Pt Perceives Pressure in Both UEs in Gross Exam Proprioception: Bilateral Intact UE Strength / Tone Overall Strength / Tone: WFL Able to Perform ADL Tasks Education Persons Educated: Patient/Family Barriers To Learning: None Noted Teaching Methods: Verbal Instruction Patient Response: Verbalized and Demo Understanding Topics: Role of OT, Goals for Therapy;Energy Conservation;Home safety Goal Formulation: With Patient/Family (Simultaneous filing. User may not have seen previous data.) AM-PAC 6 Clicks Daily Activity Inpatient Putting on and taking off regular lower body clothes?: None Bathing (Including washing, rinsing, drying): A Little Toileting, which includes using toilet, bedpan, or urinal: None Putting on and taking off regular upper body clothing: None Taking care of personal grooming such as brushing teeth: None Eating meals?: None Daily Activity Raw Score: 23 Standardized (t-scale) score: 51.12 CMS 0-100% Score: 15.86 CMS G Code Modifier: CI Plan Progress: Discontinue OT OT Frequency: One Time Visit G-Codes: Self-care G8987 Current Status: 1-19% Impairment G8988 Goal Status: 1-19% Impairment G8989 Discharge Status: 1-19% Impairment Based on above evaluation and clinical judgment. OT Discharge Recommendations OT Discharge Recommendations: Home with family assist Equipment Recommendations: Shower Chair (prn) Recommend ongoing assistance for: supervision for Bathing and assist for Homemaking prn Therapist: FARIAD Mayer/Pablo [id number] Date: 06/18/2017 * Elena Guerrero APRN - 06/18/2017 7:42 AM ORAL AND MAXILLOFACIAL SURGERY RESIDENT Formatting of this note may be different from the original. CARDIOTHORACIC SURGERY DAILY PROGRESS NOTE PROCEDURE: L VATS with Left Upper Lobectomy POD #: 2 SUBJECTIVE: Overnight events: none ASSESSMENT: Active Problems: Lung mass Dyspnea CAD (coronary artery disease) Essential hypertension Hyperlipidemia RBBB Tobacco abuse PLAN: Awake and alert x3, pain controlled well on current regimen. Pt does c/o left knee pain, Ortho consult in- waiting on rec's. 1. CV - AFib- HR-60-130's SBP- 110-120's. PT went into Afib 11/16 approx 1822, pt given her Metoprolol early and also 5 mg Metoprolol IV. Cardiology consulted this am for rec's- thank you. Pts vital signs stable with denial of chest pain or SOA.Back into sinus approx 0800 this am. Will avoid Amiodarone given recent RT and now with left upper lobectomy. Per Dr Khan will hold off on anticoagulation at this time. 2. Resp - Sats- CXR reviewed. IMPRESSION: Cont IS, aggressive pulm toilet. 3. Renal - CR-0.66 . UOP- 2.3L/24 hours 4. GI - Abd soft/NT +BS, Regular diet, last BM on 06/16 prior to admit, increase bowel regimen 5. ID - WBC- 7.4 . Afebrile. 6. Endo - no hx of diabetes 7. Activity - Up to chair and walk with PT/OT. Ortho consulted for left knee pain- will plan to see her this afternoon. 8. Disposition - Ortho consult for left knee, Cardiology consult for Afib- will cont with Metoprolol. PT and OT to work with pt walking and stairs. Detention Goal: The patient states that she wants to be able to go home OBJECTIVE: Vitals: 06/17/17 2254 06/18/17 0300 06/18/17 0825 06/18/17 0840 BP: 105/80 (!) 123/91 118/68 Pulse: (!) 127 (!) 125 76 Temp: 36.7 C (98.1 F) 36.4 C (97.6 F) 36.3 C (97.3 F) SpO2: 94% 94% 96% 94% Weight: Height: Physical Exam: General: A&O x 3 Cardiovascular: RRR no rub or murmur Respiratory: LS CTA gardenia GI: soft, NT, +BS Extremities: Left knee pain to left lateral area, no break in skin, no warmth to the area, no erythema, or bruising present, Pt does have some swelling to the left lateral knee. +2 posterior popliteal pulse present. No left lower extremity edema present with +2 ppp, left toes stella <3 seconds, pink and warm. Incisions: left VAT site clean, dry, intact with drsg Prophylaxis Review: Lines: No Antibiotic Usage: No VTE: Pharmacological prophylaxis; SQ Heparin and Mechanical prophylaxis; Sequential compression device Urinary Catheter: No Discussed with Dr Rosario LABS: Lab Results Component Value Date/Time WBC 7.4 06/18/2017 04:37 AM HGB 13.3 06/18/2017 04:37 AM HCT 39.7 06/18/2017 04:37 AM PLTCT 251 06/18/2017 04:37 AM Lab Results Component Value Date/Time NA 137 06/18/2017 04:37 AM K 4.0 06/18/2017 04:37 AM CL 106 06/18/2017 04:37 AM CO2 25 06/18/2017 04:37 AM BUN 14 06/18/2017 04:37 AM CR 0.66 06/18/2017 04:37 AM GLU 114 (H) 06/18/2017 04:37 AM No results found for: MG No results found for: PO4 Lab Results Component Value Date GLUPOC 189 (H) 06/16/2017 Elena Guerrero, MIXING PLANT DUMPER-C [id number] * Kacie Hernandez, RN - 06/18/2017 5:45 AM ORAL AND MAXILLOFACIAL SURGERY RESIDENT On tele, a-fib. HR 110-120. Pt asymptomatic & VSS per pt trend. S. Heldstab, MIXING PLANT DUMPER, aware. IV metoprolol administered as ordered. Pt on RA, denies SOA. Pt denies pain this shift. Pt's daughter expressed concern that pt is not being honest with pain rating. This RN frequently assessed pt's pain, and pt continues to deny pain. During hourly rounding, pt is sleeping and does not exhibit signs of pain. Dressing site clean, dry, intact. Pt NPO per orders. Adequate UOP, no BM overnight (last BM prior to admission 06/16). High fall risk bundle in place. Daughter at pt's bedside. Call light within reach, will continue to monitor. * Phyllis Crabtree, RT - 06/17/2017 9:44 PM ORAL AND MAXILLOFACIAL SURGERY RESIDENT Formatting of this note may be different from the original. RESPIRATORY THERAPY ADULT PROTOCOL EVALUATION RESPIRATORY PROTOCOL PLAN Medications Note: If indicated by protocol, medication orders will be placed by therapist. Procedures Vibrating PEP Therapy: Q4h While Awake Vest Airway Clearance: Discontinued PAP: Q4h PAP While Awake IPPB: Place a nursing order for "IS Q1h While Awake" for any of Lung Expansion indicators Oxygen/Humidity: Discontinued Monitoring: Discontinued PATIENT EVALUATION RESULTS Chart Review * Pulmonary Hx: Hx pulmonary disease, hx reactive or obstructive airway disease (PEFR & AM) OR regular home use of bronchodilators (AM) OR inhaled or systemic steroid use for lungs < or equal to 4 times/yr (AM) (COPD hx) * Surgical Hx: Thoracic or abdominal surgery/injury (LE) * Chest X-Ray: Infiltrates (AC) OR atelectasis (LE) OR pleural effusion OR rib fractures (LE) (atelectasis) * PFT/Oxygenation: FEV1, PEFR > 80% predicted OR physically unable to perform OR Pa02 >80 RA OR Sp02 >95% RA Patient Assessment * Respiratory Pattern: Regular pattern and rate OR good chest excursion with deep breathing * Breath Sounds: Clear and able to auscultate bases posteriorly * Cough / Sputum: Strong, effective cough OR nonproductive * Mental Status: Alert, oriented, cooperative * Activity Level: Ambulatory with assistance Priority Index Total Points: 9 Points * Priority Index: 1 PRIORITY INDEX GUIDELINES* Priority Points 1 0-9 points 2 9-18 points 3 > 18 points + Pulm Dx or Home Rx *Higher points indicate higher acuity. Therapist: Phyllis Crabtree, RT Date: 06/17/2017 [place] AC=Airway clearance AM=Aerosolized medication BA=[place] aerosol DB&C=Deep breathe & cough FEV1=Forced expiratory volume in first second) IC=Inspiratory capacity LE=Lung expansion MDI=Metered dose inhaler Neb=Nebulizer O2=Oxygen Oxim=Oximetry PEFR=Peak expiratory flow rate DETAIL TECHNICIAN=Rapid Response Team * Ayala Garcia APRN - 06/17/2017 8:04 PM ORAL AND MAXILLOFACIAL SURGERY RESIDENT Notified by bedside RN around 1820 that patient is in atrial fibrillation with a rate in the 130s. This was confirmed by EKG. Upon arrival to the bedside, patient was AAOx4, BP stable, denied dizziness or chest palpitations. Helped patient to the bathroom and she remained asymptomatic. PM dose of metoprolol was given early, however she remained in afib with a rate 120s-140s. She continues to be asymptomatic. Will give 5mg IV Metoprolol and continue to monitor. Ayala Garcia APRN * Heide Montez, RN - 06/17/2017 6:22 PM ORAL AND MAXILLOFACIAL SURGERY RESIDENT Pt in afib rate 130's, confirmed with EKG, BP stable, pt denies s/s. Ayala Ring NP notified, ordered to given pm dose metoprolol early. * Teetee Robles, PT - 06/17/2017 3:10 PM ORAL AND MAXILLOFACIAL SURGERY RESIDENT PHYSICAL THERAPY ASSESSMENT MOBILITY: Mobility Progressive Mobility Level: Walk in hallway Distance Walked (feet): 200 ft Level of Assistance: Assist X1 Assistive Device: Walker Time Tolerated: 11-30 minutes Activity Limited By: Fatigue;Patient request to stop SUBJECTIVE: Subjective Significant hospital events: 72 yo female s/p left upper lobectomy 06/16 Mental / Cognitive Status: Alert;Oriented;To Person;To Place;To Time;Cooperative ;Follows Commands Persons Present: Daughter Pain: Patient complains of pain;10/09 Pain Location: Left;Knee;Post-surgical Pain Interventions: Patient pre-medicated;Patient agrees to participate in therapy;Pain unchanged after treatment Ambulation Assist: Independent Mobility in Community without Device Patient Owned Equipment: None Home Situation: Lives Alone Type of Home: House Entry Stairs: 6-10 Stairs In-Home Stairs: 6-10 Stairs Comments: Patient will be staying with her daughter at discharge until after [place] - daughter's house has 10 steps up to bed/bath/kitchen area. Patient endorses no recent falls at home. Patient reports "twisting" her L knee on wednesday, and has had pain with mobility ever since. Prior to this, patient was very active, still working, driving, shopping, homemaking, etc. ROM: ROM ROM Position Assessed: Supine;Seated ROM Method: Active LE ROM: Left;Knee;Limited ROM Comments: Patient has limited L knee extension, also noted during functional gait. STRENGTH: Strength Strength Position Assessed: Supine;Seated Overall Strength: WFL BED MOBILITY/TRANSFERS: Bed Mobility/Transfers Comments: Bed mobility not assessed this date due to patient being up in chair at start and end of session. Transfer Type: Sit to/from Stand Transfer: Assistance Level: To/From;Bed Side Chair;Standby Assist Transfer: Assistive Device: Roller Walker Transfers: Type Of Assistance: Verbal Cues;For Safety Considerations End Of Activity Status: Up in Chair;Nursing Notified;Instructed Patient to Request Assist with Mobility;Instructed Patient to Use Call Light BALANCE: Balance Sitting Balance: Static Sitting Balance;Dynamic Sitting Balance;No UE Support; Independent GAIT: Gait Gait Distance: 200 feet Gait: Assistance Level: Minimal Assist (CGA for safety) Gait: Assistive Device: Roller Walker Gait: Descriptors: Decreased knee extension in stance phase LLE;Swing-Through Gait;No balance loss Comments: Patient reports no increase in L knee pain during ambulation. Patient recevied Tramadol before session - likely affecting knee pain. Patient began coughing at end walk with audible wheezing. Activity limited by: Patient Choice EDUCATION: Education Persons Educated: Patient/Family Patient Barriers To Learning: None Noted Interventions: Repetition of Instructions Teaching Methods: Verbal Instruction Patient Response: Verbalized Understanding Topics: Plan/Goals of PT Interventions;Use of Assistive Device/Orthosis; Mobility Progression;Safety Awareness;Up with Assist Only;Importance of Increasing Activity;Ambulate With Nursing;Recommend Continued Therapy ASSESSMENT/PROGRESS: Assessment/Progress Impaired Mobility Due To: Medical Status Limitation;Post Surgical Changes;Pain; Decreased Activity Tolerance Assessment/Progress: Should Improve w/ Continued PT AM-PAC 6 Clicks Basic Mobility Inpatient Turning from your back to your side while in a flat bed without using bed rails : None Moving from lying on your back to sitting on the side of a flatbed without using bedrails : None Moving to and from a bed to a chair (including a wheelchair): A Little Standing up from a chair using your arms (e.g. wheelchair, or bedside chair): None To walk in hospital room: A Little Climbing 3-5 steps with a railing: A Little Raw Score: 21 Standardized (T-scale) Score: 45.55 Basic Mobility CMS 0-100%: 29.52 CMS G Code Modifier for Basic Mobility: CJ GOALS: Goals Goal Formulation: With Patient/Family Time For Goal Achievement: 5 days Pt Will Go Supine To/From Sit: w/ Stand By Assist Pt Will Transfer Sit to Stand: w/ Stand By Assist Pt Will Ambulate: Greater than 200 Feet, w/ No Device, w/ Stand By Assist Pt Will Go Up / Down Stairs: 6-10 Stairs, w/ Stand By Assist PLAN: Plan Treatment Interventions: Mobility Training Plan Frequency: 3-5 Days per Week Comments: Plan to assess bed mobility, increase indepedence with transfers/gait (wean from walker), attempt stairs when able RECOMMENDATIONS: PT Discharge Recommendations PT Discharge Recommendations: Home with Assistance (likely) Equipment Recommendations: Too early to be determined Therapist: Teetee Robles, PT, DPT Date: 06/17/2017 G-Codes: Mobility G8978 Current Status: 20-39% Impairment G8979 Goal Status: 1-19% Impairment Based on above evaluation and clinical judgment. * Heide Montez, ALVIN - 06/17/2017 12:46 PM ORAL AND MAXILLOFACIAL SURGERY RESIDENT Care assumed at 0730. VSS, SR/BBB on tele. Up to ambulate at 1100, nausea with small amt emesis after walk, med with zofran with relief. Using IS to 750 ml. * Daniel Khan MD - 06/17/2017 9:45 AM ORAL AND MAXILLOFACIAL SURGERY RESIDENT Doing well from a pulmonary standpoint. Chest drain removed this am. Her pain is well controlled. The major barrier to discharge will be her left knee pain. She was previously told that a knee replacement would be needed. She "twisted" her knee several days prior to her lung resection. She complains of pain with ambulation. We will obtain xrays and consult our ortho colleagues. NKV * Ankit Guzman, RT - 06/17/2017 9:29 AM ORAL AND MAXILLOFACIAL SURGERY RESIDENT Formatting of this note may be different from the original. RESPIRATORY THERAPY ADULT PROTOCOL EVALUATION RESPIRATORY PROTOCOL PLAN Medications Note: If indicated by protocol, medication orders will be placed by therapist. Procedures Vibrating PEP Therapy: Q4h While Awake Vest Airway Clearance: Discontinued PAP: Q4h PAP While Awake IPPB: Place a nursing order for "IS Q1h While Awake" for any of Lung Expansion indicators Oxygen/Humidity: Discontinued Monitoring: Discontinued PATIENT EVALUATION RESULTS Chart Review * Pulmonary Hx: Hx pulmonary disease, hx reactive or obstructive airway disease (PEFR & AM) OR regular home use of bronchodilators (AM) OR inhaled or systemic steroid use for lungs < or equal to 4 times/yr (AM) * Surgical Hx: Thoracic or abdominal surgery/injury (LE) * Chest X-Ray: Infiltrates (AC) OR atelectasis (LE) OR pleural effusion OR rib fractures (LE) * PFT/Oxygenation: FEV1, PEFR > 80% predicted OR physically unable to perform OR Pa02 >80 RA OR Sp02 >95% RA Patient Assessment * Respiratory Pattern: Regular pattern and rate OR good chest excursion with deep breathing * Breath Sounds: Clear and able to auscultate bases posteriorly * Cough / Sputum: Strong, effective cough OR nonproductive * Mental Status: Alert, oriented, cooperative * Activity Level: Ambulatory with assistance Priority Index Total Points: 9 Points * Priority Index: 1+ PRIORITY INDEX GUIDELINES* Priority Points 1 0-9 points 2 9-18 points 3 > 18 points + Pulm Dx or Home Rx *Higher points indicate higher acuity. Therapist: Ankit Guzman, RT Date: 06/17/2017 [place] AC=Airway clearance AM=Aerosolized medication BA=[place] aerosol DB&C=Deep breathe & cough FEV1=Forced expiratory volume in first second) IC=Inspiratory capacity LE=Lung expansion MDI=Metered dose inhaler Neb=Nebulizer O2=Oxygen Oxim=Oximetry PEFR=Peak expiratory flow rate DETAIL TECHNICIAN=Rapid Response Team * Jordan Avendano, - 06/17/2017 7:27 AM ORAL AND MAXILLOFACIAL SURGERY RESIDENT Formatting of this note may be different from the original. CARDIOTHORACIC SURGERY DAILY PROGRESS NOTE PROCEDURE: L VATS with Left Upper Lobectomy Procedure Date: 06-16-17 SUBJECTIVE: Overnight events: No acute events, pain well controlled ASSESSMENT: Active Problems: * No active hospital problems. * PLAN: - D/C A-line, D/C decker, D/C step-down status and place on tele - D/C PRINT LINE OPERATOR and transition to PO pain meds - Chest tube 173 cc, serosang, no Air leak - Remove Chest Tube this AM and repeat CXR - Diet: Regular - Restart PREMISES TECHNICIAN Meds - OOB and ambulate - Disposition: Recovering nicely, normalize and d/c chest tube, repeat CXR. Possibly home tomorrow if continues to progress. OBJECTIVE: Vitals: 06/17/17 0300 06/17/17 0400 06/17/17 0440 06/17/17 0600 BP: 140/57 108/73 Pulse: 62 63 65 Temp: 36.7 C (98 F) SpO2: 97% 96% 98% Weight: Height: Physical Exam: General: A&O x 3 Cardiovascular: RRR no rub or murmur Respiratory: LS CTA [place] GI: soft, NT, +BS Extremities: No Edema Incisions: clean, dry, intact Prophylaxis Review: Lines: Yes; Arterial Line; Indication: Continuous BP monitoring; Location: Radial Antibiotic Usage: No VTE: Pharmacological prophylaxis; SQ Heparin Urinary Catheter: Yes; Retain decker due to: Need for accurate Intake and Output LABS: Lab Results Component Value Date/Time WBC 8.5 06/17/2017 04:07 AM HGB 13.1 06/17/2017 04:07 AM HCT 38.4 06/17/2017 04:07 AM PLTCT 251 06/17/2017 04:07 AM Lab Results Component Value Date/Time NA 137 06/17/2017 04:07 AM K 4.1 06/17/2017 04:07 AM CL 106 06/17/2017 04:07 AM CO2 27 06/17/2017 04:07 AM BUN 11 06/17/2017 04:07 AM CR 0.68 06/17/2017 04:07 AM GLU 132 (H) 06/17/2017 04:07 AM No results found for: MG No results found for: PO4 Lab Results Component Value Date GLUPOC 189 (H) 06/16/2017 Brandon Avendano, * Kacie Hernandez, RN - 06/17/2017 6:28 AM ORAL AND MAXILLOFACIAL SURGERY RESIDENT On tele, SR c/ BBB. Pain controlled on current regimen. PRINT LINE OPERATOR infusing per orders. CT -20 suction. Air leak noted. VSS per pt trend, pt asymptomatic. Ayala Garcia, M[employer]ING PL[employer] DUMPER, updated and no new orders placed. Decker patent and draining to gravity. Adequate UOP, no BM overnight (last BM PREMISES TECHNICIAN). High fall risk bundle in place. Call light within reach, will continue to monitor. * Ankit Guzman, RT - 06/16/2017 4:26 PM ORAL AND MAXILLOFACIAL SURGERY RESIDENT Formatting of this note may be different from the original. RESPIRATORY THERAPY ADULT PROTOCOL EVALUATION RESPIRATORY PROTOCOL PLAN Medications Note: If indicated by protocol, medication orders will be placed by therapist. Procedures Vest Airway Clearance: Q4h & PRN PAP: Q4h PAP While Awake IPPB: Place a nursing order for "IS Q1h While Awake" for any of Lung Expansion indicators Oxygen/Humidity: O2 to keep SpO2 > 92% Monitoring: Pulse oximetry BID & PRN PATIENT EVALUATION RESULTS Chart Review * Pulmonary Hx: Hx pulmonary disease, hx reactive or obstructive airway disease (PEFR & AM) OR regular home use of bronchodilators (AM) OR inhaled or systemic steroid use for lungs < or equal to 4 times/yr (AM) (pt states she does not take any meds for COPD) * Surgical Hx: Thoracic or abdominal surgery/injury (LE) * Chest X-Ray: Infiltrates (AC) OR atelectasis (LE) OR pleural effusion OR rib fractures (LE) * PFT/Oxygenation: FEV1, PEFR 70-80% OR Pa02 70-80 RA OR Sp02 92-95% Patient Assessment * Respiratory Pattern: Regular pattern and rate OR good chest excursion with deep breathing * Breath Sounds: Clear apically, but diminished in bases (LE) OR CHF related crackles (02) (oximetry) * Cough / Sputum: Good effective cough OR occasional or minimal sputum OR thin sputum * Mental Status: Alert, oriented, cooperative * Activity Level: Ambulatory with assistance Priority Index Total Points: 12 Points * Priority Index: 2+ PRIORITY INDEX GUIDELINES* Priority Points 1 0-9 points 2 9-18 points 3 > 18 points + Pulm Dx or Home Rx *Higher points indicate higher acuity. Therapist: Ankit Guzman, RT Date: 06/16/2017 [place] AC=Airway clearance AM=Aerosolized medication BA=[place] aerosol DB&C=Deep breathe & cough FEV1=Forced expiratory volume in first second) IC=Inspiratory capacity LE=Lung expansion MDI=Metered dose inhaler Neb=Nebulizer O2=Oxygen Oxim=Oximetry PEFR=Peak expiratory flow rate DETAIL TECHNICIAN=Rapid Response Team * Anthony Russell RN - 06/16/2017 11:43 AM ORAL AND MAXILLOFACIAL SURGERY RESIDENT Post-op CXR reviewed by Bell Guerrero NP. No new orders. * Anthony Russell RN - 06/16/2017 8:07 AM ORAL AND MAXILLOFACIAL SURGERY RESIDENT Dr. Khan here to see patient. in this encounter H&P Notes * Elena Guerrero, RADHA - 06/16/2017 7:20 AM ORAL AND MAXILLOFACIAL SURGERY RESIDENT Formatting of this note may be different from the original. History and Physical Update Note Name: Yumi Arriaga Allergies: Sulfa (sulfonamide antibiotics) and Lisinopril Primary Care Physician: Teresa Gonzalez Verified Lab/Radiology/Other Diagnostic Tests: 24-hour labs: No results found for this visit on 06/16/17 (from the past 24 hour(s)). Results for YUMI ARRIAGA ( ) as of 06/16/2017 07:20 Ref. Range 06/15/2017 11:22 06/15/2017 11:31 Hemoglobin Latest Ref Range: 12.0 - 15.0 GM/DL 14.4 Hematocrit Latest Ref Range: 36 - 45 % 42.3 Platelet Count Latest Ref Range: 150 - 400 K/UL 284 White Blood Cells Latest Ref Range: 4.5 - 11.0 K/UL 4.8 RBC Latest Ref Range: 4.0 - 5.0 M/UL 4.60 MCV Latest Ref Range: 80 - 100 FL 92.2 MCH Latest Ref Range: 26 - 34 PG 31.3 MCHC Latest Ref Range: 32.0 - 36.0 G/DL 34.0 MPV Latest Ref Range: 7 - 11 FL 7.9 RDW Latest Ref Range: 11 - 15 % 14.1 INR Latest Ref Range: 0.8 - 1.2 0.9 APTT Latest Ref Range: 21.0 - 39.0 SEC 26.7 Record Check Unknown 2ND TYPE REQUIRED ABO/RH(D) Unknown A POS Antibody Screen Unknown NEG Crossmatch Expires Unknown 06/18/2017 Sodium Latest Ref Range: 137 - 147 MMOL/L 139 Potassium Latest Ref Range: 3.5 - 5.1 MMOL/L 3.9 Chloride Latest Ref Range: 98 - 110 MMOL/L 104 CO2 Latest Ref Range: 21 - 30 MMOL/L 29 Anion Gap Latest Ref Range: 3 - 12 6 Blood Urea Nitrogen Latest Ref Range: 7 - 25 MG/DL 15 Creatinine Latest Ref Range: 0.4 - 1.00 MG/DL 0.86 eGFR Non Latest Ref Range: >60 mL/min >60 eGFR Latest Ref Range: >60 mL/min >60 Glucose Latest Ref Range: 70 - 100 MG/DL 108 (H) Albumin Latest Ref Range: 3.5 - 5.0 G/DL 3.9 Calcium Latest Ref Range: 8.5 - 10.6 MG/DL 10.3 Total Bilirubin Latest Ref Range: 0.3 - 1.2 MG/DL 0.3 Total Protein Latest Ref Range: 6.0 - 8.0 G/DL 6.7 AST (SGOT) Latest Ref Range: 7 - 40 U/L 19 ALT (SGPT) Latest Ref Range: 7 - 56 U/L 12 Alk Phosphatase Latest Ref Range: 25 - 110 U/L 50 Units Ordered Unknown 0 Results for YUMI ARRIAGA ( ) as of 06/16/2017 07:20 Ref. Range 06/15/2017 13:08 06/15/2017 13:08 PFT COMPLETE PULM FUNCTION Unknown Rpt FVC-Pre Latest Units: L 2.52 FVC-%Pred-pre Latest Units: % 84 FEV1-Pre Latest Units: L 2.05 FEV1-%Pred-Pre Latest Units: % 91 [id number] Latest Units: L/sec 2.15 [id number]-%Pred-Pre Latest Units: % 118 PEF-Pre Latest Units: L/min 355.3 ICSVC-Pre Latest Units: L 1.52 TGVPleth-Pre Latest Units: L 2.77 VCSVC-Pre Latest Units: L 2.50 ERVSVC-Pre Latest Units: L 0.98 RVPleth-Pre Latest Units: L 2.14 RVPleth-%Pred-Pre Latest Units: % 94 TLCPleth-Pre Latest Units: L 4.31 TLCPleth-%Pred-Pre Latest Units: % 83 DLCOunc-Pred Latest Units: ml/min/mmHg 20.45 DLCOunc-Pre Latest Units: ml/min/mmHg 16.75 DLCOunc-%Pred-Pre Latest Units: % 81 DLCOunc-SD Latest Units: ml/min/mmHg 3.75 -0.986 DLCOunc-LLN Latest Units: ml/min/mmHg 12.95 DLCOunc-ULN Latest Units: ml/min/mmHg 27.95 DLVA-Pred Latest Units: ml/min/mmHg/L 4.23 DLVA-Pre Latest Units: ml/min/mmHg/L 4.16 DLVA-%Pred-Pre Latest Units: % 98 DLVA-SD Latest Units: ml/min/mmHg/L 0.80 -0.090 DLVA-LLN Latest Units: ml/min/mmHg/L 2.63 DLVA-ULN Latest Units: ml/min/mmHg/L 5.83 All pertinent radiology results reviewed by Dr Khan preoperatively. Last Dose Beta Blockers/Anticoagulants: Last dose of Beta Ava: Date 06/16/2017 Metoprolol 100 mg and Time 0500, Last dose of other Anticoagulant Date 06/15/2017 Aspirin and Time 0800 Point of Care Testing: (Last 24 hours): I have examined the patient, and there are no significant changes in their condition, from the previous H&P performed on 05/27/2017. Patients consent signed, the operative site marked, patient is NPO, and post operative plan of care discussed. Elena Guerrero APRN-[facility] Pager [phone] * Daniel Khan MD - 06/14/2017 12:03 PM ORAL AND MAXILLOFACIAL SURGERY RESIDENT Formatting of this note may be different from the original. This is a copy of an office visit with Dr Khan on 05/27/2017 Date of Service: 05/27/2017 Subjective: Yumi Arriaga is a 72 y.o. female. History of Present Illness Ms Arriaga is a patient known to our service who is re-referred for lung nodules. 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 The patient also had a lesion in her right middle lobe. Lesion on the right was not amenable to percutaneous biopsy. Given these findings and presentation at our multidisciplinary tumor conference our recommendation was to treat these lesions as if they were synchronous primaries, SBRT bilaterally. We referred her to oncology in [place] for further care and follow up. Since that time she has been treated with radiation to the left lung nodule. They elected to watch the right nodule and not to treat without tissue diagnosis. To the PREM lesion she received 48 Gy in 4 fractions, and finished . The nodule has since increased in size on short interval CT imaging 1.5 x 1.[address] dated 03/23/17, and development of an additional GGO in the PREM adjacent to previously treated nodule. RML is not noted on outside report, but appears to be stable. She continues to smoke, few cigarettes per day. Greater than 50 pk/yr history. She reports that she does follow with a protective services case worker, Dr. Combs for CAD and HTN. It appears she had a cardiac catheterization in 2013. Today she states that she is doing well overall. She reports that she has completed radiation since our last visit. She reports shortness of breath with exertion, which is stable. She denies cough, hemoptysis, chest pain, fevers, chills, night sweats, new headaches, and bone pain. Past Medical History: Diagnosis Date CAD (coronary artery disease) Dyspnea Essential hypertension Hyperlipidemia Lung mass PREM RBBB Past Surgical History: Procedure Laterality Date CHOLECYSTECTOMY 1977 APPENDECTOMY 1977 PARTIAL HYSTERECTOMY 1979 COLONOSCOPY 2013 UPPER GASTROINTESTINAL ENDOSCOPY 2013 HEART CATHETERIZATION 08/29/13 Allergies Allergen Reactions Lisinopril UNKNOWN Sulfa (Sulfonamide Antibiotics) UNKNOWN Social History Social History Marital status: Spouse name: N/A Number of children: N/A Years of education: N/A Social History Main Topics Smoking status: Current Every Day Smoker Packs/day: 0.50 Types: Cigarettes Smokeless tobacco: Never Used Alcohol use None Drug use: None Sexual activity: Not Asked Other Topics Concern None Social History Narrative Family History Problem Relation Age of Onset Hypertension Mother Heart Disease Mother Hypertension Sister Diabetes Maternal Grandmother Heart Disease Maternal Grandmother Heart Disease Maternal Grandfather Review of Systems Constitution: Negative. HENT: Negative. Eyes: Negative. Cardiovascular: Positive for dyspnea on exertion, irregular heartbeat and palpitations. Respiratory: Positive for shortness of breath and sputum production. Endocrine: Negative. Hematologic/Lymphatic: Bruises/bleeds easily. Skin: Negative. Musculoskeletal: Positive for arthritis, back pain, joint pain and joint swelling. Gastrointestinal: Negative. Genitourinary: Negative. Neurological: Negative. Psychiatric/Behavioral: Negative. Allergic/Immunologic: Negative. Objective: amLODIPine (NORVASC) 10 mg tablet Take 10 mg by mouth daily. aspirin EC 81 mg tablet Take 81 mg by mouth daily. atorvastatin (LIPITOR) 10 mg tablet Take 10 mg by mouth every 48 hours. calcium gluconate 1,000 mEq daily. cholecalciferol (VITAMIN D-3) 1,000 units tablet Take 1,000 Units by mouth daily. dicyclomine (BENTYL) 10 mg capsule Take 10 mg by mouth four times daily. metoprolol (LOPRESSOR) 100 mg tablet Take 100 mg by mouth twice daily. MULTIVITAMIN (MULTIPLE VITAMINS DAILY PO) Take 1 Tab by mouth daily. omega 9-qpd-gtv-fish oil 300-1,000 mg capsule Take 3 Caps by mouth daily. pantoprazole DR (PROTONIX) 40 mg tablet Take 40 mg by mouth daily. valsartan (DIOVAN) 320 mg tablet Take 320 mg by mouth daily. Vitals: 05/27/17 1223 BP: 158/86 Pulse: 65 Temp: 36.9 C (98.4 F) SpO2: 99% Weight: 78.6 kg (173 lb 3.2 oz) Height: 1.702 m (5' 7") Body mass index is 27.13 kg/(m^2). Physical Exam Constitutional: She is oriented [...] normal. Judgment and thought content normal. 1. Neuroendocrine carcinoma of lung (HCC) 2. Lung mass Dr. Daniel Khan has reviewed this patient's most recent procedures and history and does feel that surgery may be warranted. We will first repeat PET scan during appointment with Dr. Nicolas, her oncologist in [place], and obtain the radiaton beasley used for treatment of PREM lesion. We would consider video-assisted thoracoscopic left upper lobectomy of left upper lobe nodule which has grown in size despite radiation treatment. We will discuss her case in our multidisciplinary tumor conference after PET scan is obtained and then update the patient with the group's recommendations. Thank you very much for allowing us to participate in this pleasant patient's care. We will keep you apprised of her progress. Please do not hesitate to contact us with any questions or concerns. Tamar Jones, RADHA-[facility] Lung Cancer Screening and Thoracic Surgery Assessment and Plan: The patient is a 72-year-old active smoker well known to me. I last evaluated her approximately a year ago. The patient had a biopsy-proven neuroendocrine tumor of the left upper lobe with features to suggest large-cell neuroendocrine lung cancer. The patient was reviewed in our multidisciplinary tumor board. In addition to the left upper lobe lesion, we felt that the patient had a lesion in her right middle lobe which was very concerning for potential second site of malignancy. Based on the histology and the radiographic findings, a recommendation was for the patient to be treated as if she had synchronous primary lesions with SBRT to both. The patient was referred back to [place], [place]. The local treating physicians were less suspicious of the right side lesion and proceeded with a left upper lobe SBRT. In the last year, the lesion on the right has remained stable. This further supports that this is a benign lesion rather than a potential second site of malignancy. As far as the lesion on the left, despite SBRT, it continues to increase in size. The question now is whether the patient would be an operative candidate for a biopsy-proven lesion that has failed to respond to SBRT. I personally spoke with the patient's oncologist, Dr. Nicolas, in [place], [place]. My plan will be to obtain a PET scan next week in conjunction with an appointment with Dr. Nicolas. Should the patient have no evidence of distant spread of disease, we will certainly consider her for an operation. We will also need to obtain the radiation oncology treatment plan for her left upper lobe of SBRT. I clearly explained to the patient as well as her 2 relatives that there is limited data for lung resection after SBRT to salvage failure of treatment. Although the total dose of radiation reported is only 45 Gy, the biologic effective dose in the treatment field is well over 100 Gy. In review of the surgical literature, there are only a handful of reports with a handful of patients indicating the safety and efficacy of lung resection after SBRT. However, for patients with limited disease and otherwise good function, it is a reasonable option to consider knowing the potential risks. I will plan on a more detailed conversation after I have had an opportunity to review the radiation treatment plans as well as the followup PET scan in our multidisciplinary tumor board. (DOC:[id number]) addendum: The patient's radiation treatment plans were reviewed with the [facility] radiation oncology group, and in our thoracic multidisciplinary group. The dose to the hilum and bronchus appears relatively low. I had an opportunity to speak to the patient and her family regarding the risks. In addition, our office has been calling her to encourage smoking cessation. in this encounter Consult Notes * Husam Rogers MD - 06/18/2017 9:25 AM ORAL AND MAXILLOFACIAL SURGERY RESIDENT Associated Order(s): CONSULT CARDIOLOGY PHYSICIAN Formatting of this note may be different from the original. CARDIOLOGY CONSULT NOTE Reason for Consult: Atrial fibrillation History of Present Illness Yumi Arriaga is a 72 y.o. female with PMH sig for hypertension, neuroendocrine tumor status post left upper lobe resection, tobacco abuse, who was admitted 06/16/2017 for video-assisted thoracoscopic left upper lobectomy of left upper lobe nodule. Patient was diagnosed with neuroendocrine tumor in 2014, underwent radiation therapy last year. In March 2017, the left upper lobe nodule was noted to be increased in size compared to prior. She was admitted for video-assisted thoracic left upper lobectomy which she underwent the procedure on 06/16. Her postop period was complicated by A. fib with RVR. She was continued on home metoprolol 100 mg twice daily and in addition she required 2 doses of IV 5 mg metoprolol. Cardiology is consulted for further recommendations. Patient was asymptomatic during the episode. She does endorse history of intermittent palpitations which last for a few seconds to 2 minutes. No history of chest pain, shortness of breath. Her physical activity is limited by her knee pain. No history of thyroid disturbances or sleep apnea. She states that she underwent cardiac catheterization in 2013 she was told that she has minimal coronary artery disease. She is on aspirin and statin at home. Her last stress test was in late 2015 or early 2016 and was reportedly negative. ECG: Atrial fibrillation, RBBB Telemetry: Normal sinus rhythm with atrial fibrillation started around 5 PM on 06/17 and converted to normal sinus rhythm at 8 AM on 06/18. Assessment & Recs Yumi Arriaga is a 72 y.o. patient with the following problems: Active Problems: Lung mass Dyspnea CAD (coronary artery disease) Essential hypertension Hyperlipidemia RBBB Tobacco abuse Paroxysmal atrial fibrillation -She was in RVR from 5 PM yesterday to 8 AM today. -Currently in normal sinus rhythm -CHADS2-vasc score is 3, annual stroke risk is 3.2% -She is on 100 mg metoprolol twice daily at home and her heart rate was around 59-66 prior to the A. Fib. We unfortunately do not have much room to go up on metoprolol given her low resting heart rate. -She can take extra 50 mg metoprolol at home whenever she feels palpitations. -We would like to avoid Amiodarone given recent RT and now with left upper lobectomy. -Please check TSH and echocardiogram -Given her high CHADS2-vasc score and annual stroke risk, anticoagulation is recommended from cardiology standpoint. We will defer to cardiothoracic surgery regarding the optimal timing to initiate anticoagulation given recent surgery. Thank you for allowing us to participate in the care of this patient. Discussed with Dr. Rogers who agrees with plan above. After 5PM please call sap business intelligence consultant supervisor steel division. Wednesday - Wednesday 8AM-5PM please call Cardiology consult pager Dung Cavanaugh M.D. Fellow in Cardiovascular Diseases Pager: [phone] ATTESTATION I personally performed the [place] portions of the E/M visit, discussed case with resident and concur with resident documentation of history, physical exam, assessment, and treatment plan unless otherwise noted. Ms. Arriaga had paroxysmal atrial fibrillation from approximately 5 PM yesterday to 8 AM today. Heart rates as high as 130 bpm were noted while the patient was on telemetry. Currently she is in sinus rhythm with a heart rate of approximately 60 bpm. We recommend that she continue on metoprolol. Therapeutic anticoagulation is recommended unless her bleeding risk is prohibitive. We recommend checking her thyroid function studies to assess for hyperthyroidism and we would recommend obtaining an echo Doppler study to assess for structural heart disease. The Inpatient Cardiology Service will sign off. Please re- consult us for any further questions. Staff name: Husam Rogers MD Date: 06/18/2017 Home Medications Prescriptions Prior to Admission Medication Sig amLODIPine (NORVASC) 10 mg tablet Take 10 mg by mouth daily after lunch. aspirin EC 81 mg tablet Take 81 mg by mouth daily. atorvastatin (LIPITOR) 10 mg tablet Take 10 mg by mouth every 48 hours. calcium carbonate/vitamin D-3 (OSCAL-500+D) 1250 mg/200 unit [...] Take 100 mg by mouth twice daily. omega 3-ajf-dui-fish oil 300-1,000 mg capsule Take 3 Caps [...] tablet Take 1 tablet by mouth daily. Current Medications Scheduled Meds: acetaminophen (TYLENOL) tablet 1,000 mg 1,000 mg Oral Q6H while awake Or acetaminophen (TYLENOL) oral solution 1,000 mg 1,000 mg Per NG tube Q6H while awake amLODIPine (NORVASC) tablet 10 mg 10 mg Oral QDAY after lunch aspirin EC tablet 81 mg 81 mg Oral QDAY atorvastatin (LIPITOR) tablet 10 mg 10 mg Oral Q48H* buPROPion XL (WELLBUTRIN XL) tablet 150 mg 150 mg Oral QDAY calcium carbonate/vitamin D-3 (OSCAL-500+D) 1250 mg/200 unit tablet 1 tablet 1 tablet Oral QDAY heparin (porcine) PF syringe 5,000 Units 5,000 Units Subcutaneous TID metoprolol tartrate (LOPRESSOR) tablet 100 mg 100 mg Oral BID milk of magnesia (CONC) oral suspension 10 mL 10 mL Oral QDAY pantoprazole DR (PROTONIX) tablet 40 mg 40 mg Oral QDAY polyethylene glycol 3350 (MIRALAX) packet 17 g 1 packet Oral QDAY senna/docusate (SENOKOT-S) tablet 1 tablet 1 tablet Oral BID valsartan (DIOVAN) tablet 320 mg 320 mg Oral QDAY vitamins, multiple tablet 1 tablet 1 tablet Oral QDAY Continuous Infusions: PRN and Respiratory Meds:alum/mag hydroxide/simeth Q4H PRN, bisacodyl QDAY PRN, diphenhydrAMINE Q4H PRN, hydrALAZINE Q6H PRN, loratadine QDAY PRN, naloxone PRN , ondansetron Q6H PRN OR ondansetron Q6H PRN, oxyCODONE Q4H PRN, potassium chloride SR PRN OR potassium chloride PRN OR potassium chloride PRN, traMADol Q6H PRN Allergies Allergies Allergen Reactions Sulfa (Sulfonamide Antibiotics) HIVES Lisinopril COUGH Past Medical History Past Medical History: Diagnosis Date Arthritis CAD (coronary artery disease) Cancer (HCC) neuroendocrine cancer lung COPD (chronic obstructive pulmonary disease) (HCC) Dyspnea Essential hypertension Gastrointestinal disorder GERD Hyperlipidemia Lung mass PREM Psychiatric illness depression RBBB Past Surgical History Past Surgical History: Procedure Laterality Date TONSILLECTOMY 1950 CHOLECYSTECTOMY 1977 APPENDECTOMY 1977 PARTIAL HYSTERECTOMY 1979 HERNIA REPAIR Left 1988 inguinal x 2 HX BREAST BIOPSY Right 1991 COLONOSCOPY 2013 UPPER GASTROINTESTINAL ENDOSCOPY 2013 HEART CATHETERIZATION 08/29/13 THORACOSCOPY Left 06/16/2017 LEFT VIDEO ASSISTED THORACOSCOPY, LEFT UPPER LOBECTOMY performed by Daniel Khan MD at [facility] Social History Social History Social History Marital status: Spouse name: N/A Number of children: N/A Years of education: N/A Occupational History Not on file. Social History Main Topics Smoking status: Current Every Day Smoker Packs/day: 0.50 Types: Cigarettes Smokeless tobacco: Never Used Alcohol use Not on file Drug use: Not on file Sexual activity: Not on file Other Topics Concern Not on file Social History Narrative Family History Family History Problem Relation Age of Onset Hypertension Mother Heart Disease Mother Hypertension Sister Diabetes Maternal Grandmother Heart Disease Maternal Grandmother Heart Disease Maternal Grandfather Review of Systems 10 point ROS completed and negative except as noted per HPI. Vital Signs: Most Recent Vital Signs: 24 Hour Range BP: 118/68 (06/18 825) Temp: 36.3 C (97.3 F) (06/18 825) Pulse: 76 (06/18 825) Respirations: 18 PER MINUTE (06/18 840) SpO2: 94 % (06/18 840) O2 Delivery: None (Room Air) (06/18 825) BP: (102-135)/(59-91) Temp: [36.3 C (97.3 F)-37.2 C (99 F)] Pulse: [63-127] Respirations: [16 PER MINUTE-20 PER MINUTE] SpO2: [93 %-96 %] O2 Delivery: None (Room Air) Vitals: 06/16/17 0704 Weight: 77.3 kg (170 lb 6.7 oz) Intake/Output Summary (Last 24 hours) at 06/18/17 0926 Last data filed at 06/18/17 0825 Gross per 24 hour Intake 940 ml Output 3350 ml Net -2410 ml Physical Exam General Appearance: moderately overweight, no distress Skin: warm, no ulcers or xanthomas; few ecchymoses Eyes: conjunctivae and lids normal, pupils are equal and round Neck Veins: normal JVP , neck veins are not distended Thyroid: no nodules, masses, tenderness or enlargement Cardiovascular system: S1 S2 heard, no murmurs, no rub, no jugular venous distension, no carotid bruit, no peripheral edema, dressing noted over left side Peripheral Circulation: normal peripheral circulation Pedal Pulses: normal symmetric pedal pulses Carotid Arteries: normal carotid upstroke bilaterally, no bruits Respiratory system: No acute distress No use of accessory muscles Normal vesicular breath sounds over all the lung beasley bilaterally Minimal end exp wheezing present Abdominal Exam: soft, non-tender, no masses, bowel sounds normal, no organomegaly Neurologic Exam: alert and oriented x 3, neurological assessment grossly intact Lab/Radiology/Other Diagnostic Tests: 24-hour labs: Results for orders placed or performed during the hospital encounter of (from the past 24 hour(s)) CBC Collection Time: 06/18/17 4:37 AM Result Value Ref Range White Blood Cells 7.4 [...] K/UL MPV 8.2 7 - 11 FL BASIC METABOLIC PANEL Collection Time: 06/18/17 4:37 AM Result Value Ref Range Sodium 137 137 - [...] 10.6 MG/DL eGFR Non >60 >60 mL/min eGFR >60 >60 mL/min Glucose: (!) 114 (06/18/17 0437) in this encounter Miscellaneous Notes * Case Mgmt DC Plan - Ceferino Ibrahim - 06/18/2017 2:41 PM ORAL AND MAXILLOFACIAL SURGERY RESIDENT Case Management Progress Note NAME:Yumi Arriaga :[birth year] AGE: 72 y.o. ADMISSION DATE: 06/16/2017 DAYS ADMITTED: LOS: 2 days Todays Date: 06/18/2017 Plan Patient discharging home today with no needs. Interventions ? Support ? Info or Referral ? Discharge Planning - NCM met with patient and patient's daughter at bedside to f/u and see if they needed anything prior to discharge home this afternoon. - Patient and patient's daughter denied any needs at this time (home health, equipment, etc.) - Encouraged patient and patient's daughter to reach out if they get home and find that they need assistance. Both verbalized understanding. ? Medication Needs ? Financial ? Legal ? Other Disposition ? Discharge Preparation When ready for discharge, who will be responsible for transporting?: family Type of Residence: Private residence Patient expects to be discharged to: Private residence Was the patient receiving home care services?: No ? Expected Discharge Expected Discharge Date: 06/18/17 Discharge Planning Comments: Pt will dc to her dgts home in [place], [place]; dgt has 10 steps to get into [facility] and she is concerned about pt's limited mobility to get up the stairs. Ceferino CONRAD, RN Nurse Manager Editorial Pager: * Care Plan - Fernanda Oliver - 06/18/2017 11:59 AM ORAL AND MAXILLOFACIAL SURGERY RESIDENT Formatting of this note may be different from the original. Problem: Tobacco Use Goal: Knowledge of tobacco-use cessation methods Outcome: Goal Achieved Date Met: 06/18/17 [facility] CON[facility] ASSESS[facility]/RECOMMENDATIONS Patient was referred for [facility] consultation Tobacco Use Treatment Practical Counseling was provided, including recognizing danger situations, developing coping skills and providing basic information about quitting. Discussed in-patient quit-tobacco medication with patient: The pt is currently taking Wellbutrin/Zyban but still reports moderate nicotine cravings at the time of consult. If medically acceptable, please also provide 4 mg nicotine lozenge for breakthrough cravings. The pt smokes 10 CPD. Discussed discharge medication options with patient. If medically acceptable , please prescribe Nicotine lozenge (4 mg), Wellbutrin/Zyban. The pt reports strong motivation to quit smoking. Contraindication to bupropion: The pt is already prescribed bupropion in-pt. [facility] Tobacco Quitline Referral: Accepted smokefreeTXT.gov access taught: Provided number [facility] Educational Material: Accepted Chief Complaint Lung mass complicated by nicotine dependence. History of Present Illness Patient reports using 8 cigarettes per day. Patient reports using tobacco within 5 minutes minutes of waking. Other tobacco use: None Years used: 54 Past use of quit tobacco medication: Medication name: Nicotine patch; side effects Patients plan about smoking after they leave the hospital: I plan to try to quit when I leave the hospital Review of Systems Respiratory Hx: Patient denies cough and Patient denies shortness of breath Cardiovascular Hx: Patient reports a history of heart disease Neurological Hx: Patient denies a history of seizures in the past and Patient denies a history of stroke in the past 2 weeks Psychiatric: Patient is experiencing Moderate nicotine withdrawal based upon the patients rating on the Nicotine Withdrawal Behavior Rating Scale. Social History Patient does not live with other smokers Rules about smoking in the patients home: No one is allowed to smoke anywhere. Stressed the importance of home smoking restrictions. Exam Vital signs: BP Readings from Last 1 Encounters: 06/18/17 118/68 Pulse Readings from Last 1 Encounters: 06/18/17 76 Resp Readings from Last 1 Encounters: No data found for Resp Psychiatric exam: AUDIT-C (Alcohol Assessment): Did not assess HSI (Heavy Smoking Index): Patient scored Patient scored < 4 (moderate/low) Contact Information If I can be of further assistance, please call [facility] [phone] * Care Plan - Tere Bui RN - 06/18/2017 11:16 AM ORAL AND MAXILLOFACIAL SURGERY RESIDENT Problem: Falls, High Risk of Goal: Absence of falls-Adult Patient Outcome: Goal Ongoing HFR bundle in place Problem: Discharge Planning Goal: Knowledge regarding plan of care Outcome: Goal Ongoing Pt and family up to date on plan of care. Problem: Pain Goal: Management of pain Outcome: Goal Ongoing Pt denies pain. * Care Plan - Kacie Hernandez RN - 06/18/2017 1:26 AM ORAL AND MAXILLOFACIAL SURGERY RESIDENT Problem: Falls, High Risk of Goal: Absence of falls-Adult Patient Outcome: Goal Ongoing Fall risk bundle in place. Bed alarm on. Problem: Discharge Planning Goal: Participation in plan of care Outcome: Goal Ongoing Discussed plan of care with pt. Pt verbalizes understanding. Problem: Pain Goal: Management of pain Outcome: Goal Ongoing Pain controlled on current regimen. * Case Mgmt DC Plan - RivesvilleReggieLanny - 06/17/2017 4:21 PM ORAL AND MAXILLOFACIAL SURGERY RESIDENT Formatting of this note may be different from the original. Case Management Admission Assessment NAME:Yumi Arriaga :1944 AGE: 72 y.o. ADMISSION DATE: 06/16/2017 DAYS ADMITTED: LOS: 1 day Todays Date: 06/17/2017 Source of Information: Patient Plan Plan: CM Assessment, Assist PRN with SW/NCM Services, Discharge Planning for Home Anticipated Pt is a 72 y/o female known to CTS service who is re-referred for lung nodules. 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 The patient also had a lesion in her right middle lobe. Lesion on the right was not amenable to percutaneous biopsy. Given these findings and presentation at our multidisciplinary tumor conference our recommendation was to treat these lesions as if they were synchronous primaries, SBRT bilaterally. Dr. Khan referred her to oncology in [place] for further care and follow up. Since that time she has been treated with radiation to the left lung nodule. They elected to watch the right nodule and not to treat without tissue diagnosis. To the PREM lesion she received 48 Gy in 4 fractions, and finished . The nodule has since increased in size on short interval CT imaging 1.5 x 1.[address] dated 03/23/17, and development of an additional GGO in the PREM adjacent to previously treated nodule. RML is not noted on outside report, but appears to be stable. She continues to smoke, few cigarettes per day. Greater than 50 pk/yr history. She reports that she does follow with a protective services case worker, Dr. Combsfor CAD and HTN. It appears she had a cardiac catheterization in 2013. SW met with pt in room to complete an initial assessment. Also at bedside was pt's dgt. Pt plans to dc to dgts home in [facility]. There are 10 steps to enter the home but once on the main level pt will not have to ambulate stairs. Dgt is very concerned about pt being able to safely ambulate up the stairs upon dc. SW discussed that a stretcher van could potentially be arranged for pt upon dc but that this would be an additional cost. Dgt told SW pt would not pay for this service. Pt denied need for HH at this time. PT consult to be placed to address pt's need for walker and/or further assistance with knee pain. Ortho also consulted to provide recommendations. Emergency Contact Extended Emergency Contact Information Primary Emergency Contact: Marc Lezama [facility] [place] Relation: Son Secondary Emergency Contact: Concha Blanton [facility] [place] Relation: Sister REI Lezama - Son Concha Blanton - Son Transportation Does the patient need discharge transport arranged?: No Transportation Name, Phone and Availability #1: Emily Will - [phone] Does the patient use Medicaid Transportation?: No Expected Discharge Expected Discharge Date: 06/18/17 Discharge Planning Comments: Pt will dc to her dgts home in [place], [place]; dgt has 10 steps to get into [facility] and she is concerned about pt's limited mobility to get up the stairs. Living Situation Prior to Admission ? Living Arrangements Type of Residence: Home, independent Living Arrangements: Alone, Family members (Pt's son and sister live in [place], [place] as well and can assist as needed) Bathroom Shower / Tub: Tub Only (Pt has a claw footed tub and has difficulty getting in and out of it) Bathroom Toilet: Standard How many levels in the residence?: 1 Can patient live on one level if needed?: Yes (Pt has three steps to get inside ; pt has difficulty with knee pain and struggles with steps) Support Systems: Other family Assistance Needed: No Home Care Services: No ? Level of Function Prior level of function: Independent ? Cognitive Abilities Cognitive Abilities: Alert and Oriented, Engages in problem solving and planning , Participates in decision making, Recognizes impact of health condition on lifestyle, Understands nature of health condition Financial Resources ? Coverage Primary Insurance: Medicare (A and B) Secondary Insurance: Commercial insurance ([employer] and [employer]) Additional Coverage: RX (Part D with BCBS; [facility] [place] ? Source of Income Source Of Income: Employed (Pt works 40 hrs/week at an [employer] in [place], [place]) ? Financial Assistance Needed? N/A Current/Previous Services ? PCP Teresa Gonzalez ? DME DME at home: None ? Home Health Receiving home health: No ? HD or PD Undergoing hemodialysis or peritoneal dialysis: No ? Tube/Enteral Feeds Receive tube/enteral feeds: No ? Infusion Receive infusions: No ? Private Duty Private duty help used: No ? HCBS Home and community based services: No ? Gwyn White Gwyn White: No ? Hospice Hospice: No ? Outpatient Therapy PT: No OT: No SHUTTLER CAR: No ? SNF/NH SNF: No NH: No ? IPR IPR: No ? LTACH LTACH: No ? Acute Hospital Stay Acute Hospital Stay: No Psychosocial Needs ? Mental Health Mental Health History: No ? Substance History History Smoking Status Current Every Day Smoker Packs/day: 0.50 Types: Cigarettes Smokeless Tobacco Never Used History Alcohol use Not on file History Drug Use Not on file ? Abuse/Sexual Assault Are You Alone With The Patient?: No Have You Ever Been Hit, Hurt Or Threatened In Any Way In The Past 5 Years?: Unable to Assess Nurse Suspected Abuse?: No Lanny Pena LMSW *[id number] * Anesthesia Post Op Day 1 - Denise Miller SRNA - 06/17/2017 10:55 AM ORAL AND MAXILLOFACIAL SURGERY RESIDENT Formatting of this note may be different from the original. Anesthesia Follow-Up Evaluation: Post-Procedure Day One Name: Yumi Arriaga : 1945 Age: 72 y.o. Sex: female Procedure Date: 06/16/2017 Procedure: Procedure(s): LEFT VIDEO ASSISTED THORACOSCOPY, LEFT UPPER LOBECTOMY Physical Assessment Height: 167.6 cm (66") Weight: 77.3 kg (170 lb 6.7 oz) Vital Signs (Last Filed in 24 hours) BP: 127/69 (06/17 0759) Temp: 36.8 C (98.2 F) (06/17 0759) Pulse: 68 (06/17 0759) Respirations: 20 PER MINUTE (06/17 0840) SpO2: 96 % (06/17 0840) O2 Delivery: None (Room Air) (06/17 0759) SpO2 Pulse: 64 (06/17 0600) Patient History Allergies Allergies Allergen Reactions Sulfa (Sulfonamide Antibiotics) HIVES Lisinopril COUGH Medications Scheduled Meds: acetaminophen (TYLENOL) tablet 1,000 mg 1,000 mg Oral Q6H while awake Or acetaminophen (TYLENOL) oral solution 1,000 mg 1,000 mg Per NG tube Q6H while awake amLODIPine (NORVASC) tablet 10 mg 10 mg Oral QDAY after lunch aspirin EC tablet 81 mg 81 mg Oral QDAY [START ON 06/18/2017] atorvastatin (LIPITOR) tablet 10 mg 10 mg Oral Q48H* calcium carbonate/vitamin D-3 (OSCAL-500+D) 1250 mg/200 unit tablet 1 tablet 1 tablet Oral QDAY heparin (porcine) PF syringe 5,000 Units 5,000 Units Subcutaneous TID influenza (>=65 YO) (TRIvalent HIGH DOSE)(FLUZONE) PF syringe 0.5 mL 0.5 mL Intramuscular ONCE metoprolol tartrate (LOPRESSOR) tablet 100 mg 100 mg Oral BID milk of magnesia (CONC) oral suspension 10 mL 10 mL Oral QDAY pantoprazole DR (PROTONIX) tablet 40 mg 40 mg Oral QDAY polyethylene glycol 3350 (MIRALAX) packet 17 g 1 packet Oral QDAY senna/docusate (SENOKOT-S) tablet 1 tablet 1 tablet Oral BID valsartan (DIOVAN) tablet 320 mg 320 mg Oral QDAY vitamins, multiple tablet 1 tablet 1 tablet Oral QDAY Continuous Infusions: PRN and Respiratory Meds:alum/mag hydroxide/simeth Q4H PRN, bisacodyl QDAY PRN, diphenhydrAMINE Q4H PRN, hydrALAZINE Q6H PRN, loratadine QDAY PRN, naloxone PRN , ondansetron Q6H PRN OR ondansetron Q6H PRN, oxyCODONE Q4H PRN, potassium chloride SR PRN OR potassium chloride PRN OR potassium chloride PRN, traMADol Q6H PRN Diagnostic Tests Hematology: Lab Results Component Value Date HGB 13.1 06/17/2017 HCT 38.4 06/17/2017 PLTCT 251 06/17/2017 WBC 8.5 06/17/2017 MCV 92.2 06/17/2017 MCH 31.5 06/17/2017 MCHC 34.2 06/17/2017 MPV 7.9 06/17/2017 RDW 14.2 06/17/2017 General Chemistry: Lab Results Component Value Date NA 137 06/17/2017 K 4.1 06/17/2017 CL 106 06/17/2017 CO2 27 06/17/2017 GAP 4 06/17/2017 BUN 11 06/17/2017 CR 0.68 06/17/2017 GLU 132 06/17/2017 CA 8.9 06/17/2017 ALBUMIN 3.9 06/15/2017 TOTBILI 0.3 06/15/2017 Coagulation: Lab Results Component Value Date PTT 26.7 06/15/2017 INR 0.9 06/15/2017 Follow-Up Assessment Patient location during evaluation: floor Anesthetic Complications: Anesthetic complications: The patient did not experience any anesthestic complications. Pain: Score: 2 Management:satisfactory to patient Level of Consciousness: awake and alert Hydration:acceptable Airway Patency: patent Respiratory Status: acceptable and unassisted Cardiovascular Status:acceptable and hemodynamically stable Regional/Neuroaxial: * Care Plan - Kacie Hernandez RN - 06/17/2017 12:26 AM ORAL AND MAXILLOFACIAL SURGERY RESIDENT Problem: Falls, High Risk of Goal: Absence of falls-Adult Patient Outcome: Goal Ongoing Fall risk bundle in place. Bed alarm on. Problem: Discharge Planning Goal: Knowledge regarding plan of care Outcome: Goal Ongoing Discussed plan of care with pt. Pt verbalizes understanding. Problem: Pain Goal: Management of pain Outcome: Goal Ongoing Pt using PRINT LINE OPERATOR appropriately. Pain controlled on current regimen. * Operative Report (DICTATED ONLY) - Daniel Khan MD - 06/16/2017 3: 34 PM [facility] [address]. [place], [place] [address] PATIENT NAME: YUMI ARRIAGA MR#/PT#: [id number] OPERATIVE REPORT : 1945 DATE OF OPERATION: 06/16/2017 ROOM #: HC417 OPERATIVE REPORT SURGEON: Daniel Khan MD DRYWALL HANGER HELPER SURGEON(S): Nolan Taylor PA-C DICTATING PROVIDER: Daniel Khan MD No qualified residents were available. PREOPERATIVE DIAGNOSIS: Lung cancer. POSTOPERATIVE DIAGNOSIS: Lung cancer. OPERATIVE PROCEDURE: Left upper lobectomy performed through a thoracoscopic technique with associated thoracic lymphadenectomy. INDICATIONS FOR OPERATIVE PROCEDURE: Ms Arriaga is a 72-year-old with biopsy- proven lung cancer on the left. She was seen originally several months ago in our clinic. There was concern for potential bilateral disease with a contralateral lesion. Based on this, the patient was felt to have more advanced stage disease. She had undergone chemotherapy and radiotherapy to the left upper lobe lesion, and the right continued to be followed. The patient has had no progression of disease on the right. However, the left side, despite SBRT, has continued to increase in size. Based on these findings, the patient was restaged with PET scan and brought to the operating room for surgical resection. DESCRIPTION AND FINDINGS OF OPERATIVE PROCEDURE: After informed consent was obtained, the patient was brought to the operating room. She underwent general endotracheal anesthesia by our anesthesia colleagues. She received a dose of preoperative antibiotics as well as 5000 units of subcutaneous heparin prior to induction of anesthesia. She was positioned in the lateral decubitus position with the left side up. She was prepped and draped in the usual standard manner. We began the operation by performing a posterior serratus block using liposomal bupivacaine. Once this was done, a single incision in the 6th interspace between the anterior and midaxillary line was made. Using the single 2-inch incision, we examined the left chest. We began by dissecting the anterior hilum. Level 10 as well as level 5-6 nodes were identified. The aortopulmonary nodes were submitted for frozen section. They were negative for malignancy. After identifying the inferior pulmonary vein, the superior vein with 4 large branches was identified. The vein was encircled and divided with multiple firings of a stapling device. Once this was performed, this exposed the pulmonary artery. There were 2 large truncal branches to the left upper lobe which were individually identified and divided. We then dissected along the interlobar pulmonary artery and completed the anterior fissure. Once this was done, 2 separate lingular PA branches were identified and individually divided with stapling devices. With this done, we were able to completely mobilize the left upper lobe. All of the bronchial tissue around the left upper lobe takeoff was mobilized with all the associated anayeli tissue. A single firing of the stapling device was done to divide this bronchus. The entire specimen was placed into an EndoCatch bag and removed. The mass in the left upper lobe was easily palpable. We ensured hemostasis and then proceeded to complete the lymphadenectomy of the posterior hilum. Level 7 as well as level 10 and interlobar level 11 nodes were dissected and submitted for pathologic evaluation. Satisfied with hemostasis, a posterior intercostal block was performed using the remaining liposomal bupivacaine. A single 24-Citizen Of [place] chest tube was placed through our single incision, and the incision was closed around it. The patient tolerated the procedure well. She was awakened from anesthesia and taken to the PACU in stable condition. Sponge And Instrument Counts: Correct. Blood Loss: Negligible. I was present for the entirety of this case. Daniel Khan MD [place]/Stefano Khan MD / Stefano [id number] P cc: - Daniel Khan MD * Procedures (Immed Post or Bedside) - Daniel Khan MD - 06/16/2017 10:43 AM ORAL AND MAXILLOFACIAL SURGERY RESIDENT Formatting of this note may be different from the original. Brief Operative Note Name: Yumi Arriaga is a 72 y.o. female : 1945 DATE OF OPERATION: 06/16/2017 Date: 06/16/2017 Preoperative Dx: Lung mass [R91.8] Post-op Diagnosis * Lung mass [R91.8] Procedure(s) (LRB): LEFT VIDEO ASSISTED THORACOSCOPY, LEFT UPPER LOBECTOMY (Left) Anesthesia Type: General Surgeon(s) and Role: * Daniel Khan MD - Primary Findings: uniportal PREM with mediastinal node dissection. Level 10, 7, 5/6, 11. Estimated Blood Loss: No blood loss documented. Specimen(s) Removed/Disposition: ID Type Source Tests Collected by Time Destination 1 : Level 5/6 lymph node for frozen Tissue Lymph Node (Specify) SURGICAL PATHOLOGY Daniel Khan MD 06/16/2017 0906 2 : STATION 11 LYMPH NODE FOR PERMANENT Tissue Lymph Node (Specify) SURGICAL PATHOLOGY Daniel Khan MD 06/16/2017 1006 3 : LEFT UPPER LOBE FOR PERMANENT Tissue Lung PREM SURGICAL PATHOLOGY Daniel Khan MD 06/16/2017 1022 4 : LEVEL 7 LYMPH NODE FOR PERMANENT Tissue Lymph Node (Specify) SURGICAL PATHOLOGY Daniel Khan MD 06/16/2017 1025 5 : LEVEL 10 LYMPH NODE FOR PERMANENT Tissue Lymph Node (Specify) SURGICAL PATHOLOGY Daniel Khan MD 06/16/2017 1026 Complications: None Implants: None Drains: None; 24 Fr. chest drain Disposition: PACU - stable DANIEL KHAN MD Pager in this encounter Plan of Treatment Date Type Specialty Care Team Description 07/08/2017 Procedure Pass Cardiothoracic Surgery Name Priority Associated Diagnoses Order Schedule SURGICAL PATHOLOGY Routine Lung mass ONCE for 1 Occurrences starting 06/16/2017 as of this encounter Procedures Procedure Name Priority Date/Time Associated Diagnosis Comments TELEMETRY STRIPS-SCAN 07/07/2017 Results for this 1:53 PM ORAL AND MAXILLOFACIAL SURGERY RESIDENT procedure are in the results section. ECG-SCAN 06/28/2017 Results for this 7:45 AM ORAL AND MAXILLOFACIAL SURGERY RESIDENT procedure are in the results section. ECG-SCAN 06/28/2017 Results for this 7:44 AM ORAL AND MAXILLOFACIAL SURGERY RESIDENT procedure are in the results section. ECG-SCAN 06/19/2017 Results for this 8:00 AM ORAL AND MAXILLOFACIAL SURGERY RESIDENT procedure are in the results section. in this encounter Results * CHEST 2 VIEWS [...] Interface, Radiant Results - 07/08/2017 11:22 AM ORAL AND MAXILLOFACIAL SURGERY RESIDENT CHEST 2 VIEWS . Clinical history: s/p [...] Narrative Ordered by an unspecified provider. * CHEST SINGLE VIEW (06/18/2017 6:33 AM) Specimen Performing Laboratory [facility] RESULTS Impressions 1. Increasing left pleural effusion and left basilar consolidation. 2. Decreased conspicuity of the left apical pneumothorax and loculated anterior left chest hydropneumothorax. Two-view chest x-ray is recommended for the next examination. Approved by Akhil Marquez M.D. on 06/18/2017 10:45 AM By my electronic signature, I attest that I have personally reviewed the images for this examination and formulated the interpretations and opinions expressed in this report Finalized by Roma Qureshi M.D. on 06/18/2017 5:04 PM. Dictated by Akhil Marquez M.D. on 06/18/2017 9:21 AM. Narrative Procedure: CHEST SINGLE VIEW Clinical Indication: Chest tube Comparison: Chest x-ray from one day prior Findings: Heart size is normal without pulmonary venous congestion. There is increase in left effusion and left basilar consolidation. The previously identified left apical pneumothorax is not discretely visualized. There is decreased conspicuity of the loculated hydropneumothorax in the anterior left chest. Procedure Note Interface, Radiant Results - 06/18/2017 5:07 PM ORAL AND MAXILLOFACIAL SURGERY RESIDENT Procedure: CHEST SINGLE VIEW Clinical Indication: Chest tube Comparison: Chest x-ray from one day prior Findings: Heart size is normal without pulmonary venous congestion. There is increase in left effusion and left basilar consolidation. The previously identified left apical pneumothorax is not discretely visualized. There is decreased conspicuity of the loculated hydropneumothorax in the anterior left chest. IMPRESSION 1. Increasing left pleural effusion and left basilar consolidation. 2. Decreased conspicuity of the left apical pneumothorax and loculated anterior left chest hydropneumothorax. Two-view chest x-ray is recommended for the next examination. Approved by Akhil Marquez M.D. on 06/18/2017 10:45 AM By my electronic signature, I attest that I have personally reviewed the images for this examination and formulated the interpretations and opinions expressed in this report Finalized by Roma Qureshi M.D. on 06/18/2017 5:04 PM. Dictated by Akhil Marquez M.D. on 06/18/2017 9:21 AM. * BASIC METABOLIC PANEL (06/18/2017 4:37 AM) Component Value Ref Range Sodium 137 137 [...] Specimen Performing Laboratory [facility] [address] [place] [address] * CBC (06/18/2017 4:37 AM) Component Value Ref Range White Blood [...] Specimen Performing Laboratory [facility]IN [facility] [address] [place] [address] * KNEE 3 VIEWS LEFT (06/17/2017 11:08 AM) Specimen Performing Laboratory Left [facility] RESULTS Impressions Findings/Impression: 1.Severe osteoarthritis the medial joint space. Mild osteoarthritis lateral joint space. Syareebp-mp-qntotr patellofemoral arthrosis. 2.Xioh-bh-dgvbdsct genu varus. 3.Moderate knee joint effusion. 4.No fractures or osseous lesions. Moderately proud osteophyte off the posterior aspect of the femoral condyles. Finalized by Tuan Murphy M.D. on 06/17/2017 11:59 AM. Dictated by Tuan Murphy M.D. on 06/17/2017 11:58 AM. Narrative Left knee 3 views. HISTORY: Bilateral knee pain. Procedure Note Interface, Radiant Results - 06/17/2017 12:02 PM ORAL AND MAXILLOFACIAL SURGERY RESIDENT Left knee 3 views. HISTORY: Bilateral knee pain. IMPRESSION Findings/Impression: 1. Severe osteoarthritis the medial joint space. Mild osteoarthritis lateral joint space. Isvwhhfk-ih-qhvcgb patellofemoral arthrosis. 2. Annr-ta-eogtikyw genu varus. 3. Moderate knee joint effusion. 4. No fractures or osseous lesions. Moderately proud osteophyte off the posterior aspect of the femoral condyles. Finalized by Tuan Murphy M.D. on 06/17/2017 11:59 AM. Dictated by Tuan Murphy M.D. on 06/17/2017 11:58 AM. * CHEST 2 VIEWS (06/17/2017 10:29 AM) Specimen Performing Laboratory [facility] RAD RESULTS Impressions 1. Interval removal of the left chest tube with an unchanged trace residual left apical pneumothorax. 2. Development of a small loculated hydropneumothorax in the anterior left chest. 3. Left lung volume loss with mild left basilar atelectasis. Approved by Akhil Marquez M.D. on 06/17/2017 11:33 AM By my electronic signature, I attest that I have personally reviewed the images for this examination and formulated the interpretations and opinions expressed in this report Finalized by Avtar Horner D.O. on 06/18/2017 12:51 AM. Dictated by Akhil Marquez M.D. on 06/17/2017 11:08 AM. Narrative Procedure: CHEST 2 VIEWS Clinical Indication: Status post chest tube removal, evaluate for pneumothorax., Prior left upper lobectomy. Comparison: Chest x-ray from earlier the same day Findings: There has been interval removal of the left chest tube. Heart size and pulmonary vasculature are unremarkable. Suture material is noted over the left hilum. There is a focal area of increased lucency in the anterior left suprahilar region, with an associated air-fluid level compatible with a small loculated hydropneumothorax. There is poor depth of inspiration with elevation of the left hemidiaphragm and bibasilar atelectasis, greater on the left. There has been decrease in size of a trace left apical pneumothorax. Left chest wall subcutaneous emphysema is again noted. Procedure Note Interface, Radiant Results - 06/18/2017 12:54 AM ORAL AND MAXILLOFACIAL SURGERY RESIDENT Procedure: CHEST 2 VIEWS Clinical Indication: Status post chest tube removal, evaluate for pneumothorax., Prior left upper lobectomy. Comparison: Chest x-ray from earlier the same day Findings: There has been interval removal of the left chest tube. Heart size and pulmonary vasculature are unremarkable. Suture material is noted over the left hilum. There is a focal area of increased lucency in the anterior left suprahilar region, with an associated air-fluid level compatible with a small loculated hydropneumothorax. There is poor depth of inspiration with elevation of the left hemidiaphragm and bibasilar atelectasis, greater on the left. There has been decrease in size of a trace left apical pneumothorax. Left chest wall subcutaneous emphysema is again noted. IMPRESSION 1. Interval removal of the left chest tube with an unchanged trace residual left apical pneumothorax. 2. Development of a small loculated hydropneumothorax in the anterior left chest. 3. Left lung volume loss with mild left basilar atelectasis. Approved by Akhil Marquez M.D. on 06/17/2017 11:33 AM By my electronic signature, I attest that I have personally reviewed the images for this examination and formulated the interpretations and opinions expressed in this report Finalized by Avtar Horner D.O. on 06/18/2017 12:51 AM. Dictated by Akhil Marquez M.D. on 06/17/2017 11:08 AM. * CHEST SINGLE VIEW (06/17/2017 6:40 AM) Specimen Performing Laboratory [facility] RESULTS Impressions 1. Indwelling left chest tubes with persistent trace left apical pneumothorax. 2. Persistent small left pleural effusion with bibasilar atelectasis, greater on the left. Approved by Akhil Marquez M.D. on 06/17/2017 10:28 AM By my electronic signature, I attest that I have personally reviewed the images for this examination and formulated the interpretations and opinions expressed in this report Finalized by Shukri Killian M.D. on 06/18/2017 3:39 PM. Dictated by Akhil Marquez M.D. on 06/17/2017 9:54 AM. Narrative Procedure: CHEST SINGLE VIEW Clinical Indication: Chest tube Comparison: Chest x-ray from one day prior Findings: Left chest tubes remains in similar position. Heart size and pulmonary vasculature are unremarkable. There is poor depth of inspiration. There is a small left pleural effusion with bibasilar atelectasis, greater on the left. No significant change in a trace left apical pneumothorax. Procedure Note Interface, Radiant Results - 06/18/2017 3:42 PM ORAL AND MAXILLOFACIAL SURGERY RESIDENT Procedure: CHEST SINGLE VIEW Clinical Indication: Chest tube Comparison: Chest x-ray from one day prior Findings: Left chest tubes remains in similar position. Heart size and pulmonary vasculature are unremarkable. There is poor depth of inspiration. There is a small left pleural effusion with bibasilar atelectasis, greater on the left. No significant change in a trace left apical pneumothorax. IMPRESSION 1. Indwelling left chest tubes with persistent trace left apical pneumothorax. 2. Persistent small left pleural effusion with bibasilar atelectasis, greater on the left. Approved by Akhil Marquez M.D. on 06/17/2017 10:28 AM By my electronic signature, I attest that I have personally reviewed the images for this examination and formulated the interpretations and opinions expressed in this report Finalized by Shukri Killian M.D. on 06/18/2017 3:39 PM. Dictated by Akhil Marquez M.D. on 06/17/2017 9:54 AM. * BASIC METABOLIC PANEL (06/17/2017 4:07 AM) Component Value Ref Range Sodium 137 137 - 147 MMOL/L Potassium 4.1 3.5 - 5.1 MMOL/L Chloride 106 98 - 110 MMOL/L CO2 27 21 - 30 MMOL/L Anion Gap 4 3 - 12 Glucose 132 (H) 70 - 100 MG/DL Blood Urea Nitrogen 11 7 - 25 MG/DL Creatinine 0.68 0.4 - 1.00 MG/DL Calcium 8.9 8.5 - 10.6 MG/DL eGFR Non >60 [...] Performing Laboratory [facility] [address] [place] [address] * CBC (06/17/2017 4:07 AM) Component Value Ref Range White Blood Cells 8.5 4.5 - 11.0 K/UL RBC 4.16 4.0 - 5.0 M/UL Hemoglobin 13.1 12.0 - 15.0 GM/DL Hematocrit 38.4 36 - 45 % MCV 92.2 80 - 100 FL MCH 31.5 26 - 34 PG MCHC 34.2 32.0 - 36.0 G/DL RDW 14.2 11 - 15 % Platelet Count 251 150 - 400 K/UL MPV 7.9 7 - 11 FL Specimen Performing Laboratory [facility] [address] [place] [address] * POC GLUCOSE (06/16/2017 5:19 PM) Component Value Ref Range Glucose, POC 189 (H) 70 - 100 MG/DL Specimen Performing Laboratory MAIN LAB [address] [place] [address] * LINE PLCMT 1V CXR (06/16/2017 11:40 [...] Interface, Radiant Results - 06/16/2017 11:51 AM ORAL AND MAXILLOFACIAL SURGERY RESIDENT Portable AP chest Clinical history: Chest tube [...] Mercado M.D. on 06/16/2017 11:44 AM. * SURGICAL PATHOLOGY (06/16/2017 9:12 AM) Component Value Ref Range PATHOLOGY REPORT [facility] [email or web address] Department of Pathology and Laboratory Medicine [address] [place] [address] Surgical Pathology Office: [phone] SURGICAL PATHOLOGY REPORT NAME: YUMI ARRIAGA SURG PATH #: [id number] MR #: [id number] SPECIMEN CLASS: SR BILLING #: [id number] ALT ID #: LOCATION: [facility] DATE OF PROCEDURE: 06/16/2017 AGE: 72 SEX: [...] Cell types evaluated: Tumor cells FDA status: Conservation Agent Addendum Comment {Not Entered} JACINTA Montgomery ################################################## [...] cm The external surface is inked black. Camera Control Operator sections of the specimen are submitted as [...] of Pathology and Laboratory Medicine of the [facility] ([employer]) in compliance with [...] of Pathology and Laboratory Medicine of the [facility]. It has not been cleared or approved by the FDA. The FDA has determined that such clearance or approval is not necessary. 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, any site Encounter for blood typing CAD (coronary artery disease) Coronary atherosclerosis of unspecified type of vessel, [place] or graft Dyspnea Other dyspnea and respiratory abnormality Essential hypertension Unspecified essential hypertension Hyperlipidemia Other and unspecified hyperlipidemia Adenocarcinoma, lung, left (HCC) RBBB Right bundle branch block Tobacco abuse Tobacco use disorder in this encounter Admitting Diagnoses Diagnosis Lung mass - UNKNOWN Swelling, mass, or lump in chest Mass of left lung in this encounter Administered Medications Medication Order MAR Action Action Date Dose Rate Site acetaminophen (TYLENOL) tablet 1,000 mg Given 06/17/2017 1,000 mg 1,000 mg, Oral, EVERY 6 HOURS WHILE 15:50 ORAL AND MAXILLOFACIAL SURGERY RESIDENT AWAKE, 15 doses, First dose on Wed06/16/17 at 1530, Last dose on 06/21/17 at 0900, TOTAL ACETAMINOPHEN DOSE NOT TO EXCEED 4GM DAILY Given 06/17/2017 1,000 mg 20:58 ORAL AND MAXILLOFACIAL SURGERY RESIDENT Given 06/18/2017 1,000 mg 09:24 ORAL AND MAXILLOFACIAL SURGERY RESIDENT amLODIPine (NORVASC) tablet 10 mg Given 06/17/2017 10 mg 10 mg, Oral, DAILY AFTER LUNCH, First 13:50 ORAL AND MAXILLOFACIAL SURGERY RESIDENT dose on Belkis 06/17/17 at 1300, Until Discontinued, NURSING: Please educate patient and document: Do not give with grapefruit juice. aspirin EC tablet 81 mg Given 06/17/2017 81 mg 81 mg, Oral, DAILY, First dose on Belkis 09:34 ORAL AND MAXILLOFACIAL SURGERY RESIDENT 06/17/17 at 0900, Until Discontinued Given 06/18/2017 81 mg 09:24 ORAL AND MAXILLOFACIAL SURGERY RESIDENT atorvastatin (LIPITOR) tablet 10 mg Given 06/18/2017 10 mg 10 mg, Oral, EVERY 48 HOURS, First dose 09:24 ORAL AND MAXILLOFACIAL SURGERY RESIDENT on Wed06/18/17 at 0900, Until Discontinued bupivacaine liposome (PF) (EXPAREL) 266 Given 06/16/2017 266 mg Chest , Left mg/20 mL (13.3 mg/mL) injection 20 mL 10:28 ORAL AND MAXILLOFACIAL SURGERY RESIDENT 20 mL (266 mg), SEE ADMIN INSTRUCTIONS, ONCE IN HEART OR, 1 dose, Wed06/16/17 at 0830, Inject slowly into tissues with trained technique. Note: Bupivacaine, ropivacaine, and lidocaine contraindicated within 96 hours of administration of this drug. Apply Exparel wristband to patient wrist with date and time of Exparel administration. DO NOT remove wristband for 96 hours from date and time administered. >>>>>>>>>>>>>>>EXPAREL WRISTBAND REQUIRED<<<<<<<<<<<<<<< NOTE: This is a HIGH ALERT Medication. buPROPion XL (WELLBUTRIN XL) tablet 150 Given 06/17/2017 150 mg mg 15:50 ORAL AND MAXILLOFACIAL SURGERY RESIDENT 150 mg, Oral, DAILY, First dose on Wed06/17/17 at 1415, Until Discontinued, Start: Take orally one per day for 3 days Then: Take one pill twice per day for 12 weeks. Not to exceed 300mg per day. The doses must be at least 8 hours apart. Do not take after 6 pm. STOP smoking after 5-7 days of starting treatment DO NOT CRUSH Given 06/18/2017 150 mg 09:24 ORAL AND MAXILLOFACIAL SURGERY RESIDENT calcium carbonate/vitamin D-3 Given 06/17/2017 1 tablet (OSCAL-500+D) 1250 mg/200 unit tablet 1 09:34 ORAL AND MAXILLOFACIAL SURGERY RESIDENT tablet 1 tablet, Oral, DAILY, First dose on Wed06/17/17 at 0900, Until Discontinued, Calcium Carb 1250mg delivers 500mg elemental Ca Given 06/18/2017 1 tablet 09:24 ORAL AND MAXILLOFACIAL SURGERY RESIDENT famotidine (PEPCID) tablet 20 mg Given 06/16/2017 20 mg 20 mg, Oral, TWICE DAILY, First dose on 22:06 ORAL AND MAXILLOFACIAL SURGERY RESIDENT Wed06/16/17 at 2100, Until Discontinued fentaNYL (SUBLIMAZE) PRINT LINE OPERATOR 550 mcg/ NS Dose/Rate 06/16/2017 55 mL infusion syr (std conc)(premade) Verify 19:32 ORAL AND MAXILLOFACIAL SURGERY RESIDENT Intravenous, PRINT LINE OPERATOR, Starting 06/16/17 at 1115, Until Belkis 06/17/17 at 0640, PRINT LINE OPERATOR Additional Bolus (Pain >5): 25 mcg, Re-assess in 15 minutes, may repeat bolus ONE time if pain not adequately controlled (MAXIMUM of 2 bolus doses only). Check pump to ensure proper function and appropriate patient utilization. If pain is still not adequately controlled, contact physician. Stop PRINT LINE OPERATOR if patient difficult to arouse, or systolic BP drops more than 20 mmHg from baseline. fentaNYL PRINT LINE OPERATOR Conc=10 mcg/mL Administer only with PRINT LINE OPERATOR Pump -- Only Patient may push PRINT LINE OPERATOR button. NOTE: This is a HIGH ALERT Medication. MEDICATION DOUBLE CHECK Policy applies. Given - New Bag 06/17/2017 01:45 ORAL AND MAXILLOFACIAL SURGERY RESIDENT Dose/Rate Verify 06/17/2017 07:37 ORAL AND MAXILLOFACIAL SURGERY RESIDENT fentaNYL citrate PF (SUBLIMAZE) Given 06/16/2017 50 mcg injection 50 mcg 12:30 ORAL AND MAXILLOFACIAL SURGERY RESIDENT 50 mcg, Intravenous, EVERY 5 MIN PRN, Starting Wed06/16/17 at 1216, Until Wed06/16/17 at 1505, Pain Injectable, For Pain Score 4-6, Maximum total dose 200 mcg Hold if RR < 10 Given 06/16/2017 50 mcg 12:46 ORAL AND MAXILLOFACIAL SURGERY RESIDENT heparin (porcine) PF syringe 5,000 Units Given 06/16/2017 5,000 Units Abdomen:RLQ 5,000 Units, Subcutaneous, ONCE, 1 dose, 07:18 ORAL AND MAXILLOFACIAL SURGERY RESIDENT 06/16/17 at 0700, Give in CVPP prior to surgery. If epidural required, give after epidural placement. NOTE: This is a HIGH ALERT Medication. heparin (porcine) PF syringe 5,000 Units Given 06/17/2017 5,000 Units Abdominal 5,000 Units, Subcutaneous, THREE TIMES 15:50 ORAL AND MAXILLOFACIAL SURGERY RESIDENT Tissue DAILY, First dose on Wed06/16/17 at 2100, Until Discontinued, First dose given post-op at 2100. NOTE: This is a HIGH ALERT Medication. Given 06/17/2017 5,000 Units Abdominal 20:59 ORAL AND MAXILLOFACIAL SURGERY RESIDENT Tissue Given 06/18/2017 5,000 Units Abdomen:LLQ 09:24 ORAL AND MAXILLOFACIAL SURGERY RESIDENT influenza (>=65 YO) (TRIvalent HIGH Given 06/17/2017 0.5 mL Deltoid, DOSE)(FLUZONE) PF syringe 0.5 mL 11:25 ORAL AND MAXILLOFACIAL SURGERY RESIDENT Left 0.5 mL, Intramuscular, ONCE - UNTIL ADMIN, 1 dose, Belkis 06/17/17 at 0900, - Administer when stable and temp <38.3 C (afebrile) for 24 hours. Reschedule for 0900 the next day if unable to administer. - Per hospital protocol, please discuss risks and benefits with patient prior to administration of the vaccine(s). - SQ administration is reserved for patients with bleeding disorders at the discretion of the prescriber. - NOTE: If dose unavailable, send Inopendorse message to pharmacy lidocaine PF 1% (10 mg/mL) injection Given 06/16/2017 2 mL 0.1-2 mL 07:19 ORAL AND MAXILLOFACIAL SURGERY RESIDENT 0.1-2 mL, Injection, NEEDED, Starting Wed06/16/17 at 0655, Until Wed06/16/17 at 1505, Other..., for IV insertion, Pre-Op metoprolol (LOPRESSOR) injection 5 mg Given 06/17/2017 5 mg 5 mg, Intravenous, ONCE, 1 dose, Belkis 19:48 ORAL AND MAXILLOFACIAL SURGERY RESIDENT 06/17/17 at 1945, Hold for heart rate < 60 bpm or systolic BP < 100 PROTECT FROM LIGHT metoprolol (LOPRESSOR) injection 5 mg Given 06/17/2017 5 mg 5 mg, Intravenous, ONCE, 1 dose, Belkis 20:49 ORAL AND MAXILLOFACIAL SURGERY RESIDENT 06/17/17 at 2030, Hold for heart rate < 60 bpm or systolic BP < 100 PROTECT FROM LIGHT metoprolol tartrate (LOPRESSOR) tablet Given 06/17/2017 100 mg 100 mg 09:34 ORAL AND MAXILLOFACIAL SURGERY RESIDENT 100 mg, Oral, TWICE DAILY, First dose on Belkis 06/17/17 at 0900, Until Discontinued, Hold for heart rate < 60 bpm Given 06/17/2017 100 mg 18:25 ORAL AND MAXILLOFACIAL SURGERY RESIDENT Given 06/18/2017 100 mg 09:24 ORAL AND MAXILLOFACIAL SURGERY RESIDENT morphine injection syringe 4 mg Given 06/16/2017 4 mg 4 mg, Intravenous, EVERY 15 MIN PRN, 13:30 ORAL AND MAXILLOFACIAL SURGERY RESIDENT Starting Wed06/16/17 at 1216, Until Wed06/16/17 at 1505, Pain Injectable, For Pain Score 7-10, Maximum total dose of 10mg Hold for RR < 10 ondansetron (ZOFRAN) injection 4 mg Given 06/17/2017 4 mg 4 mg, Intravenous, EVERY 6 HOURS PRN, 11:22 ORAL AND MAXILLOFACIAL SURGERY RESIDENT Starting Wed06/16/17 at 1524, Until Wed06/18/17 at 1831, Nausea/Vomiting Injectable oxyCODONE (ROXICODONE, OXY-IR) tablet Given 06/17/2017 5 mg 5-10 mg 07:55 ORAL AND MAXILLOFACIAL SURGERY RESIDENT 5-10 mg, Oral, EVERY 4 HOURS PRN, Starting Wed06/17/17 at 0645, Until Wed06/18/17 at 1831, Pain PO pantoprazole DR (PROTONIX) tablet 40 mg Given 06/17/2017 40 mg 40 mg, Oral, DAILY, First dose on Wed 09:34 ORAL AND MAXILLOFACIAL SURGERY RESIDENT 06/17/17 at 0900, Until Discontinued, Do not crush or chew tablet. Given 06/18/2017 40 mg 09:24 ORAL AND MAXILLOFACIAL SURGERY RESIDENT polyethylene glycol 3350 (MIRALAX) Given 06/17/2017 17 g packet 17 g 09:00 ORAL AND MAXILLOFACIAL SURGERY RESIDENT 17 g (1 packet), Oral, DAILY, First dose on Wed06/16/17 at 1530, Until Discontinued, 8.5 GRAMS=0.5 PACKET 17 GRAMS=1 PACKET 34 GRAMS=2 PACKETS potassium chloride SR (K-DUR) tablet Given 06/17/2017 20 mEq 20-40 mEq 07:04 ORAL AND MAXILLOFACIAL SURGERY RESIDENT 20-40 mEq, Oral, NEEDED, Starting Wed06/16/17 at 1524, Until Wed06/18/17 at 1831, Other..., See admin instructions, If urine output <30 mL/hr or SCr >2 mg/dL, check with physician prior to giving K+ replacement. - For K+ 4.0-4.3, give potassium chloride 20 mEq PO/NG x 1 dose - For K+ 3.5-3.9, give potassium chloride 40 mEq PO/NG x 1 dose - For K+ <3.5, give potassium chloride 40 mEq PO/NG every 4 hours x 2 doses - Check K+ in the AM if potassium >=3.5 and replacement given - Check K+ 4 hours after last replacement dose given if K+ <3.5, then repeat replacement orders if needed. senna/docusate (SENOKOT-S) tablet 1 Given 06/17/2017 1 tablet tablet 09:34 ORAL AND MAXILLOFACIAL SURGERY RESIDENT 1 tablet, Oral, TWICE DAILY, First dose on Wed06/16/17 at 1115, Until Discontinued, Hold for loose stools Given 06/17/2017 1 tablet 20:58 ORAL AND MAXILLOFACIAL SURGERY RESIDENT Given 06/18/2017 1 tablet 09:24 ORAL AND MAXILLOFACIAL SURGERY RESIDENT sodium chloride 0.9 % infusion Given - 06/16/2017 20 mL/hr 1,000 mL, Intravenous, at 20 mL/hr, Bag 07:19 ORAL AND MAXILLOFACIAL SURGERY RESIDENT CONTINUOUS, Starting Wed06/16/17 at 0700, Until Wed06/17/17 at 0640, Pre-Op sodium chloride 0.9 % infusion Given - 06/16/2017 50 mL/hr 1,000 mL, Intravenous, at 50 mL/hr, Bag 11:16 ORAL AND MAXILLOFACIAL SURGERY RESIDENT CONTINUOUS, Starting Wed06/16/17 at 1115, Until Wed06/17/17 at 0640 traMADol (ULTRAM) tablet 50-100 mg Given 06/17/2017 50 mg 50-100 mg, Oral, EVERY 6 HOURS PRN, 13:50 ORAL AND MAXILLOFACIAL SURGERY RESIDENT Starting Wed06/17/17 at 0645, Until Wed06/18/17 at 1831, Pain PO valsartan (DIOVAN) tablet 320 mg Given 06/17/2017 320 mg 320 mg, Oral, DAILY, First dose on Belkis 11:05 ORAL AND MAXILLOFACIAL SURGERY RESIDENT 06/17/17 at 0900, Until Discontinued Given 06/18/2017 320 mg 09:24 ORAL AND MAXILLOFACIAL SURGERY RESIDENT vitamins, multiple tablet 1 tablet Given 06/17/2017 1 tablet 1 tablet, Oral, DAILY, First dose on Belkis 09:34 ORAL AND MAXILLOFACIAL SURGERY RESIDENT 06/17/17 at 0900, Until Discontinued Given 06/18/2017 1 tablet 09:24 ORAL AND MAXILLOFACIAL SURGERY RESIDENT in this encounter
--- OUTSIDE RECORDS SUMMARY | 2017-08-10 06:57 | XMS REPORT | Encounter Summary ---
Author Author [facility] Organization [facility] Address Unknown Phone Unavailable Care Team Providers Care Tempering Kiln Tender Name Role Phone PCP Unavailable Reason for Referral * Radiology Services Status Reason Specialty Diagnoses / Referred By Referred To Procedures Contact Contact New Request Radiology Diagnoses Eldon Khan MD carcinoma of [address] ([facility]) [facility] [address] [place], [place] PET SCAN [address] [place] Phone: ([place]) [phone] Reason for Visit * Reason Comments Pulmonary Nodule second opinion Encounter Details Date Type Department Care Team Description 05/27/2017 Office Visit [facility] Khan, Neuroendocrine carcinoma Cardi[facility] Surgeons of lung ([facility]) (Primary [address] Dx);[place] [address] [address] mass;Preoperative [phone] [place] [address] evaluation to rule out [phone] surgical contraindication Social History Tobacco Use Types Packs/Day Years Used Date Current Every Day Smoker Cigarettes 0.5 Smokeless Tobacco: Never Used Sex Assigned at Date Recorded Not on file as of this encounter Last Filed Vital Signs Vital Sign Reading Time Taken Blood Pressure 158/86 05/27/2017 12:23 PM CDT Pulse 65 05/27/2017 12:23 PM CDT Temperature 36.9 C (98.4 F) 05/27/2017 12:23 PM CDT Respiratory Rate - - Oxygen Saturation 99% 05/27/2017 12:23 PM CDT Inhaled Oxygen - - Concentration Weight 78.6 kg (173 lb 3.2 oz) 05/27/2017 12:23 PM CDT Height 170.2 cm (5' 7") 05/27/2017 12:23 PM CDT Body Mass Index 27.13 05/27/2017 12:23 PM CDT in this encounter Progress Notes * Tamar Jones, REGIONAL FACILITIES MANAGER-PLASTIC STRAIGHTENING ROLL OPERATOR - 05/27/2017 12:30 PM CDT Formatting of this note may be different from the original. Date of Service: 05/27/2017 Subjective: Nydia Arriaga is a 72 y.o. female. History of Present Illness Ms Arriaga is a patient known to our service who is re-referred for lung nodules. Previously IR biopsy demonstrated a neuroendocrine carcinoma, kxxqgxjtskow-ie-rxuq grade, focal features of large cell neuroendocrine [...] bilaterally. We referred her to oncology in [place] for further care and follow up. Since [...] reports that she does follow with a commercial real estate manager, Dr. Combs for CAD and HTN. It [...] Take 1 Tab by mouth daily. omega 8-onk-tna-fish oil 300-1,000 mg capsule Take 3 Caps [...] appointment with Dr. Nicolas, her oncologist in [place], and obtain the radiaton beasley used for [...] both. The patient was referred back to [place], [place]. The local treating physicians were less [...] with the patient's oncologist, Dr. Nicolas, in [place], [place]. My plan will be to obtain [...] PET scan in our multidisciplinary tumor board. ([id number]) in this encounter Plan of Treatment Date Type Specialty Care Team Description 07/08/2017 Procedure Pass Cardiothoracic Surgery Name Priority Associated Diagnoses Order Schedule [place] PET SCAN [place] ([place]IG[place]) Routine Neuroendocrine carcinoma Expected: 05/27/2017 of lung (HCC) (Approximate), Expires: 05/28/2018 as of this encounter Visit Diagnoses Diagnosis Neuroendocrine carcinoma of lung (HCC) - Primary Malignant poorly differentiated neuroendocrine carcinoma, any site Lung mass Swelling, mass, or lump in chest Preoperative evaluation to rule out surgical contraindication Other specified pre-operative examination in this encounter
--- OUTSIDE RECORDS SUMMARY | 2017-08-10 06:57 | XMS REPORT | Encounter Summary ---
Author Author [facility] Organization [facility] Address Unknown Phone Unavailable Care Team Providers Care Fleecer Name Role Phone PCP Unavailable Encounter Details Date Type Department Care Team Description 06/07/2017 Prep for Case [facility] Veer[facility]Daniel saxena, Cardiovascular Surgeons [address] [facility] [address] [place] [address] [place] [address] [place] [address] [phone] Social History Tobacco Use Types Packs/Day Years Used Date Current Every Day Smoker Cigarettes 0.5 Smokeless Tobacco: Never Used Sex Assigned at Date Recorded Not on file as of this encounter Plan of Treatment Date Type Specialty Care Team Description 07/08/2017 Procedure Pass Cardiothoracic Surgery as of this encounter Visit Diagnoses Not on filein this encounter
--- OUTSIDE RECORDS SUMMARY | 2017-08-10 06:57 | XMS REPORT | Encounter Summary ---
Author Author [facility] Organization [facility] Address Unknown Phone Unavailable Care Team Providers Care Helium Arc Welder Name Role Phone PCP Unavailable Reason for Visit * Auth/Cert Status Reason Specialty Diagnoses / Referred By Referred To Procedures Contact Contact Diagnoses Lung mass UNKNOWN P rocedures LEFT VATS LEFT UPPER LOBECTOMY Encounter Details Date Type Department Care Team Description 06/16/2017 Surgery Cardiovascular Operating VeeramacDaniel saxena, LEFT VIDEO ASSISTED Room MD THORACOSCOPY, LEFT UPPER [address] [facility] [place] [address] [address] [place], [place] [id number] Social History Tobacco Use Types Packs/Day Years Used Date Current Every Day Smoker Cigarettes 0.5 Smokeless Tobacco: Never Used Sex Assigned at Date Recorded Not on file as of this encounter Last Filed Vital Signs Vital Sign Reading Time Taken Blood Pressure 134/78 06/18/2017 11:50 AM LABORATORY MACHINIST Pulse 68 06/18/2017 11:50 AM LABORATORY MACHINIST Temperature 36.4 C (97.5 F) 06/18/2017 11:50 AM LABORATORY MACHINIST Respiratory Rate - - Oxygen Saturation 96% 06/18/2017 12:22 PM LABORATORY MACHINIST Inhaled Oxygen - - Concentration Weight 77.3 kg (170 lb 6.7 oz) 06/16/2017 7:04 AM LABORATORY MACHINIST Height 167.6 cm (5' 6") 06/16/2017 7:04 AM LABORATORY MACHINIST Body Mass Index 27.51 06/16/2017 7:04 AM LABORATORY MACHINIST in this encounter Functional Status Functional Status Response Date of Assessment Does the patient have a hearing impairment: No 06/16/2017 as of this encounter Discharge Summaries * Elena Guerrero APRN - 06/18/2017 1:59 PM LABORATORY MACHINIST Formatting of this note may be different [...] L 2.05 FEV1-%Pred-Pre Latest Units: % 91 [id number] Latest Units: L/sec 2.15 QKN6957-%Pred-Pre Latest Units: % 118 PEF-Pre Latest Units: [...] surgical resection The patient was admitted to [facility] on 06/16/2017 for elective Left upper lobectomy [...] or concerns regarding your hospital stay. Call [phone] Discharging attending physician: DANIEL KHAN [[id number]] Regular Diet You have no dietary restriction. [...] Khan at 11:45 [facility] Provider DANIEL KHAN [[id number]] Location [facility] Appointment date: 07/08/2017 Appointment [...] Appointment You have an appointment with the Aircraft Structural Design Engineer Dr Tayla Alva on 07/29/2017 at 1: 15pm at the [address] [place], [place]. [facility] Provider NICA ALVA [[id number]] Appointment date: 07/29/2017 Appointment time: 1:15 PM [...] twice daily. PRESCRIPTION TYPE: Historical Med omega 0-yrv-tpn-fish oil 300-1,000 mg capsule Take 3 Caps [...] Scheduled appointments: Jul 08, 2017 11:45 AM LABORATORY MACHINIST Post - Op with Daniel Khan MD [facility] [address] [place] [id number] Pending items needing follow up: Surgical pathology, suture removal, and smoking cessation. . . Signed: ALIDA Lee [id number] 06/18/2017 cc: Primary Care Physician: Teresa Gonzalez Verified Referring physicians: Teresa Gonzalez MD Additional provider(s): in this encounter Discharge Instructions * Discharge Instr - Case Management - Ceferino Ibrahim - 06/18/2017 2:47 PM LABORATORY MACHINIST Please call your proofer apprentice if you have any questions about home care re: home health, equipment, etc. [phone] in this encounter Medications at Time of [...] cheek (side of mouth) as Needed. omega 9-xlw-nai-fish oil Take 3 Caps by mouth 300-1,000 [...] Tere Bui RN - 06/18/2017 4:31 PM LABORATORY MACHINIST PIV d/c'd. Tele d/c'd. Discharge instructions given to pt. Prescriptions faxed to Pharmacy. Pt transported to [facility] with all personal belongings. * Daniel Khan MD - 06/18/2017 3:00 PM LABORATORY MACHINIST The patient is doing well . After [...] Teetee Robles, PT - 06/18/2017 1:32 PM LABORATORY MACHINIST PHYSICAL THERAPY PROGRESS NOTE / DISCHARGE MOBILITY: [...] Activity Status: (Patient working with OT at [facility] ) GAIT: Gait Gait Distance: 250 feet [...] Kami Castaneda, OT - 06/18/2017 1:15 PM LABORATORY MACHINIST Formatting of this note may be different from the original. OCCUPATIONAL THERAPY ASSESSMENT/DISCHARGE NOTE Patient Name: Yumi Arriaga Room/Bed: [place] [address] Admitting Diagnosis: UNKNOWN Mass of left lung [...] Bathroom Toilet: Standard Prior Function Level Of [place]: Independent with ADLs and functional transfers; Independent [...] Bathing and assist for Homemaking prn Therapist: FARIDA Mayer/Pablo [id number] Date: 06/18/2017 * Elena Guerrero APRN - 06/18/2017 7:42 AM LABORATORY MACHINIST Formatting of this note may be different [...] HR-60-130's SBP- 110-120's. PT went into Afib 06/17 approx 1822, pt given her Metoprolol early [...] to work with pt walking and stairs. Process Controller Goal: The patient states that she wants [...] Date GLUPOC 189 (H) 06/16/2017 Elena Guerrero, QA SPECIALIST-C 6092 * Kacie Hernandez, RN - 06/18/2017 5:45 AM LABORATORY MACHINIST On tele, a-fib. HR 110-120. Pt asymptomatic & VSS per pt trend. S. Heldstab, QA SPECIALIST, aware. IV metoprolol administered as ordered. Pt [...] Phyllis Crabtree, RT - 06/17/2017 9:44 PM LABORATORY MACHINIST Formatting of this note may be different [...] Date: 06/17/2017 [place] AC=Airway clearance AM=Aerosolized medication BA=[place] aerosol DB&C=Deep breathe & cough FEV1=Forced expiratory volume in first second) IC=Inspiratory capacity LE=Lung expansion MDI=Metered dose inhaler Neb=Nebulizer O2=Oxygen Oxim=Oximetry PEFR=Peak expiratory flow rate GOLF SALES ASSOCIATE=Rapid Response Team * Ayala Garcia APRN - 06/17/2017 8:04 PM LABORATORY MACHINIST Notified by bedside RN around 1820 that [...] Heide Montez, RN - 06/17/2017 6:22 PM LABORATORY MACHINIST Pt in afib rate 130's, confirmed with EKG, BP stable, pt denies s/s. Ayala Ring NEUROLOGICAL SURGERY TEACHER notified, ordered to given pm dose metoprolol early. * Latoya Roblessea, PT - 06/17/2017 3:10 PM LABORATORY MACHINIST PHYSICAL THERAPY ASSESSMENT MOBILITY: Mobility Progressive Mobility [...] Heide Montez, ALVIN - 06/17/2017 12:46 PM LABORATORY MACHINIST Care assumed at 0730. VSS, SR/BBB on tele. Up to ambulate at 1100, nausea with small amt emesis after walk, med with zofran with relief. Using IS to 750 ml. * Daniel Khan MD - 06/17/2017 9:45 AM LABORATORY MACHINIST Doing well from a pulmonary standpoint. Chest [...] Ankit Guzman, RT - 06/17/2017 9:29 AM LABORATORY MACHINIST Formatting of this note may be different [...] Date: 06/17/2017 [place] AC=Airway clearance AM=Aerosolized medication BA=[place] aerosol DB&C=Deep breathe & cough FEV1=Forced expiratory volume in first second) IC=Inspiratory capacity LE=Lung expansion MDI=Metered dose inhaler Neb=Nebulizer O2=Oxygen Oxim=Oximetry PEFR=Peak expiratory flow rate GOLF SALES ASSOCIATE=Rapid Response Team * Jordan Avendano, - 06/17/2017 7:27 AM LABORATORY MACHINIST Formatting of this note may be different from the original. CARDIOTHORACIC SURGERY DAILY PROGRESS NOTE PROCEDURE: L VATS with Left Upper Lobectomy Procedure Date: 06-16-17 SUBJECTIVE: Overnight events: No acute events, pain well controlled ASSESSMENT: Active Problems: * No active hospital problems. * PLAN: - D/C A-line, D/C decker, D/C step-down status and place on tele - D/C GROVE SUPERINTENDENT and transition to PO pain meds - Chest tube 173 cc, serosang, no Air leak - Remove Chest Tube this AM and repeat CXR - Diet: Regular - Restart SENIOR FIELD SERVICE ENGINEER Meds - OOB and ambulate - Disposition: Recovering nicely, normalize and d/c chest tube, repeat CXR. Possibly home tomorrow if continues to progress. OBJECTIVE: Vitals: 06/17/17 0300 06/17/17 0400 06/17/17 0440 11/16/17 0600 BP: 140/57 108/73 Pulse: 62 63 [...] Value Date GLUPOC 189 (H) 06/16/2017 Brandon Avendano DO * Kacie Hernandez, RN - 06/17/2017 6:28 AM LABORATORY MACHINIST On tele, SR c/ BBB. Pain controlled on current regimen. GROVE SUPERINTENDENT infusing per orders. CT -20 suction. Air leak noted. VSS per pt trend, pt asymptomatic. Ayala Garcia, QA SPECIALIST, updated and no new orders placed. Decker patent and draining to gravity. Adequate UOP, no BM overnight (last BM SENIOR FIELD SERVICE ENGINEER). High fall risk bundle in place. Call light within reach, will continue to monitor. * Ankit Guzman, RT - 06/16/2017 4:26 PM LABORATORY MACHINIST Formatting of this note may be different [...] Date: 06/16/2017 [place] AC=Airway clearance AM=Aerosolized medication BA=[place] aerosol DB&C=Deep breathe & cough FEV1=Forced expiratory volume in first second) IC=Inspiratory capacity LE=Lung expansion MDI=Metered dose inhaler Neb=Nebulizer O2=Oxygen Oxim=Oximetry PEFR=Peak expiratory flow rate GOLF SALES ASSOCIATE=Rapid Response Team * Anthony Russell RN - 06/16/2017 11:43 AM LABORATORY MACHINIST Post-op CXR reviewed by Bell Guerrero NP. No new orders. * Anthony Russell RN - 06/16/2017 8:[address] Khan here to see patient. in this encounter H&P Notes * Elena Guerrero, QA SPECIALIST - 06/16/2017 7:20 AM LABORATORY MACHINIST Formatting of this note may be different [...] L 2.05 FEV1-%Pred-Pre Latest Units: % 91 [id number] Latest Units: L/sec 2.15 PNJ8935-%Pred-Pre Latest Units: % 118 PEF-Pre Latest Units: [...] care discussed. Elena Guerrero APRN-Mary Jo Pager [phone] * Daniel Khan MD - 06/14/2017 12:03 PM LABORATORY MACHINIST Formatting of this note may be different from the original. This is a copy of an office visit with Dr Khan on 05/27/2017 Date of Service: 05/27/2017 Subjective: Yumi Arriaga is a 72 y.o. female. History of Present Illness Ms Arriaga is a patient known to our service who is re-referred for lung nodules. 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 We referred her to oncology in [place] for further care and follow up. Since [...] reports that she does follow with a golf sales associate, Dr. Combs for CAD and HTN. It [...] Take 1 Tab by mouth daily. omega 1-sge-yfl-fish oil 300-1,000 mg capsule Take 3 Caps [...] appointment with Dr. Nicolas, her oncologist in [place], and obtain the radiaton beasley used for [...] both. The patient was referred back to [place], [place]. The local treating physicians were less [...] with the patient's oncologist, Dr. Nicolas, in [place], [place]. My plan will be to obtain [...] PET scan in our multidisciplinary tumor board. (DOC:[id number]) addendum: The patient's radiation treatment plans were reviewed with the radiation oncology group, and in our thoracic multidisciplinary group. The dose to the hilum and bronchus appears relatively low. I had an opportunity to speak to the patient and her family regarding the risks. In addition, our office has been calling her to encourage smoking cessation. in this encounter Consult Notes * Husam Rogers MD - 06/18/2017 9:25 AM LABORATORY MACHINIST Associated Order(s): CONSULT CARDIOLOGY PHYSICIAN Formatting of this note may be different from the original. CARDIOLOGY CONSULT NOTE Reason for Consult: Atrial fibrillation History of Present Illness Yumi Ariraga is a 72 y.o. female with PMH [...] with plan above. After 5PM please call scraper operator pest control technician. Wednesday - Wednesday 8AM-5PM please call Cardiology consult pager Dung Cavanaugh M.D. Fellow in Cardiovascular Diseases Pager: [phone] ATTESTATION I personally performed the [place] portions [...] 100 mg by mouth twice daily. omega 0-ohh-sxc-fish oil 300-1,000 mg capsule Take 3 Caps [...] LOBECTOMY performed by Daniel Khan MD at [facility] SUR[facility]ERY Social History Social History Social History [...] - Ceferino Ibrahim - 06/18/2017 2:41 PM LABORATORY MACHINIST Case Management Progress Note NAME:Yumi Arriaga :[birth year] [...] will dc to her dgts home in [place], [place]; dgt has 10 steps to get into [facility] and she is concerned about pt's limited mobility to get up the stairs. Ceferino Ibrahim BSN, RN Nurse Commercial Intelligence Manager Pager: * Care Plan - Benito Fernanda - 06/18/2017 11:59 AM LABORATORY MACHINIST Formatting of this note may be different from the original. Problem: Tobacco Use Goal: Knowledge of tobacco-use cessation methods Outcome: Goal Achieved Date Met: 06/18/17 [facility] CONSULT[facility] ASSESSMENT/RECOMMENDATIONS Patient was [facility] for [facility] consultation Tobacco Use Treatment Practical Counseling was [...] The pt is already prescribed bupropion in-pt. [facility] Tobacco Quitline Referral: Accepted smokefreeTXT.gov access taught: Provided number Brooks Educational Material: Accepted Chief Complaint Lung mass [...] can be of further assistance, [facility] [phone] * Care Plan - Tere Bui RN - 06/18/2017 11:16 AM LABORATORY MACHINIST Problem: Falls, High Risk of Goal: Absence of falls-Adult Patient Outcome: Goal Ongoing HFR bundle in place Problem: Discharge Planning Goal: Knowledge regarding plan of care Outcome: Goal Ongoing Pt and family up to date on plan of care. Problem: Pain Goal: Management of pain Outcome: Goal Ongoing Pt denies pain. * Care Plan - Kacie Hernandez RN - 06/18/2017 1:26 AM LABORATORY MACHINIST Problem: Falls, High Risk of Goal: Absence of falls-Adult Patient Outcome: Goal Ongoing Fall risk bundle in place. Bed alarm on. Problem: Discharge Planning Goal: Participation in plan of care Outcome: Goal Ongoing Discussed plan of care with pt. Pt verbalizes understanding. Problem: Pain Goal: Management of pain Outcome: Goal Ongoing Pain controlled on current regimen. * Case Mgmt DC Plan - Lanny Pena - 06/17/2017 4:21 PM LABORATORY MACHINIST Formatting of this note may be different [...] Dr. Khan referred her to oncology in [place] for further care and follow up. Since [...] reports that she does follow with a golf sales associate, Dr. Combsfor CAD and HTN. It appears she had a cardiac catheterization in 2013. SW met with pt in room to complete an initial assessment. Also at bedside was pt's dgt. Pt plans to dc to dgts home in [facility]. There are 10 steps to enter [...] Contact Information Primary Emergency Contact: [facility] [employer] Relation: Son Secondary Emergency Contact: [facility] [employer] Relation: Sister REI Lezama - Son Concha [facility] - Son Transportation Does the patient need discharge transport arranged?: No Transportation Name, Phone and Availability #1: Emily [place] - [phone] Does the patient use Medicaid Transportation?: No Expected Discharge Expected Discharge Date: 06/18/17 Discharge Planning Comments: Pt will dc to her dgts home in [place], [place]; dgt has 10 steps to get into [facility] and she is concerned about pt's limited mobility to get up the stairs. Living Situation Prior to Admission ? Living Arrangements Type of Residence: Home, independent Living Arrangements: Alone, Family members (Pt's son and sister live in [place], [place] as well and can assist as [...] (A and B) Secondary Insurance: Commercial insurance ([employer]) Additional Coverage: RX (Part D with BCBS; [facility] [place] ? Source of Income Source Of Income: Employed (Pt works 40 hrs/week at an [employer] in [place], [place]) ? Financial Assistance Needed? N/A Current/Previous [...] and community based services: No ? Gwyn Pascal White: No ? Hospice Hospice: No ? Outpatient Therapy PT: No OT: No GIS PROFESSOR: No ? SNF/NH SNF: No NH: No [...] Denise Miller SRNA - 06/17/2017 10:55 AM LABORATORY MACHINIST Formatting of this note may be different from the original. Anesthesia Follow-Up Evaluation: Post-Procedure Day One Name: Yumi Arriaga : 1945 Age: 72 y.o. Sex: female Procedure Date: 06/16/2017 Procedure: Procedure(s): LEFT VIDEO ASSISTED THORACOSCOPY, LEFT UPPER LOBECTOMY Physical Assessment Height: 167.6 cm (66") Weight: 77.3 kg (170 lb 6.7 oz) Vital Signs (Last Filed in 24 hours) BP: 127/69 (06/17 075) Temp: 36.8 C (98.2 F) (06/17 075) Pulse: 68 (06/17 075) Respirations: 20 PER MINUTE (06/17 0840) SpO2: 96 % (06/17 0840) O2 Delivery: None (Room Air) (06/17 075) SpO2 Pulse: 64 (06/17 0600) Patient History [...] Kacie Hernandez RN - 06/17/2017 12:26 AM LABORATORY MACHINIST Problem: Falls, High Risk of Goal: Absence of falls-Adult Patient Outcome: Goal Ongoing Fall risk bundle in place. Bed alarm on. Problem: Discharge Planning Goal: Knowledge regarding plan of care Outcome: Goal Ongoing Discussed plan of care with pt. Pt verbalizes understanding. Problem: Pain Goal: Management of pain Outcome: Goal Ongoing Pt using GROVE SUPERINTENDENT appropriately. Pain controlled on current regimen. * Operative Report (DICTATED ONLY) - Daniel Khan MD - 06/16/2017 3: 34 PM [facility] [address] [place], [place] [address] PATIENT NAME: YUMI ARRIAGA MR#/PT#: [id number] OPERATIVE REPORT : 1945 DATE OF OPERATION: 06/16/2017 ROOM #: HC417 OPERATIVE REPORT SURGEON: Daniel Khan MD BOXCAR WEIGHER SURGEON(S): Nolan Taylor PA-C DICTATING PROVIDER: Daniel [...] using the remaining liposomal bupivacaine. A single 24-Cambodian chest tube was placed through our single incision, and the incision was closed around it. The patient tolerated the procedure well. She was awakened from anesthesia and taken to the PACU in stable condition. Sponge And Instrument Counts: Correct. Blood Loss: Negligible. I was present for the entirety of this case. Daniel Khan MD [place]/Stefano Khan MD / Stefano [id number] P cc: - Daniel Khan MD * Procedures (Immed Post or Bedside) - Daniel Khan MD - 06/16/2017 10:43 AM LABORATORY MACHINIST Formatting of this note may be different [...] STRIPS-SCAN 07/07/2017 Results for this 1:53 PM LABORATORY MACHINIST procedure are in the results section. ECG-SCAN 06/28/2017 Results for this 7:45 AM LABORATORY MACHINIST procedure are in the results section. ECG-SCAN 06/28/2017 Results for this 7:44 AM LABORATORY MACHINIST procedure are in the results section. ECG-SCAN 06/19/2017 Results for this 8:00 AM LABORATORY MACHINIST procedure are in the results section. in [...] Interface, Radiant Results - 07/08/2017 11:22 AM LABORATORY MACHINIST CHEST 2 VIEWS . Clinical history: s/p [...] M.D. on 07/08/2017 11:19 AM. Dictated by FLOIRN ROGERS M.D. on 07/08/2017 11:16 AM. * [...] Interface, Radiant Results - 06/18/2017 5:07 PM LABORATORY MACHINIST Procedure: CHEST SINGLE VIEW Clinical Indication: Chest [...] Specimen Performing Laboratory Blood MAIN LAB [address] [place] [address] * CBC (06/18/2017 4:37 AM) Component Value [...] Specimen Performing Laboratory Blood MAIN LAB [address] [place] [address] * KNEE 3 VIEWS LEFT (06/17/2017 11:08 AM) Specimen Performing Laboratory Left [facility] RAD RESULTS Impressions Findings/Impression: 1.Severe osteoarthritis the medial joint space. Mild osteoarthritis lateral joint space. Eblamdaz-ms-dknwgu patellofemoral arthrosis. 2.Bgef-hn-dhzxyuik genu varus. 3.Moderate knee joint effusion. 4.No fractures or osseous lesions. Moderately proud osteophyte off the posterior aspect of the femoral condyles. Finalized by Tuan Murphy M.D. on 06/17/2017 11:59 AM. Dictated by Tuan Murphy M.D. on 06/17/2017 11:58 AM. Narrative Left knee 3 views. HISTORY: Bilateral knee pain. Procedure Note Interface, Radiant Results - 06/17/2017 12:02 PM LABORATORY MACHINIST Left knee 3 views. HISTORY: Bilateral knee pain. IMPRESSION Findings/Impression: 1. Severe osteoarthritis the medial joint space. Mild osteoarthritis lateral joint space. Mtudogng-bj-enbbys patellofemoral arthrosis. 2. Nepe-rf-pnlftfbl genu varus. 3. Moderate knee joint effusion. [...] Interface, Radiant Results - 06/18/2017 12:54 AM LABORATORY MACHINIST Procedure: CHEST 2 VIEWS Clinical Indication: Status [...] Interface, Radiant Results - 06/18/2017 3:42 PM LABORATORY MACHINIST Procedure: CHEST SINGLE VIEW Clinical Indication: Chest [...] Performing Laboratory Blood [facility] [address] [place] [address] * CBC (06/17/2017 4:07 AM) Component Value [...] Specimen Performing Laboratory Blood MAIN LAB [address] [place] [address] * POC GLUCOSE (06/16/2017 5:19 PM) Component Value Ref Range Glucose, POC 189 (H) 70 - 100 MG/DL Specimen Performing Laboratory [facility] [address] [place] [address] * LINE PLCMT 1V CXR (06/16/2017 11:40 [...] Interface, Radiant Results - 06/16/2017 11:51 AM LABORATORY MACHINIST Portable AP chest Clinical history: Chest tube [...] Component Value Ref Range PATHOLOGY REPORT [facility] [email or web address] Department of Pathology and Laboratory Medicine [address] [place] [address] Surgical Pathology Office: [phone] SURGICAL PATHOLOGY REPORT NAME: YUMI ARRIAGA SURG PATH #: [id number] MR #: [id number] SPECIMEN CLASS: SR BILLING #: [id number] ALT ID #: LOCATION: [facility] DATE OF PROCEDURE: 06/16/2017 AGE: 72 SEX: [...] Cell types evaluated: Tumor cells FDA status: Direct Marketing Intern Addendum Comment {Not Entered} JACINTA Montgomery ################################################## [...] cm The external surface is inked black. Remarketing Rep sections of the specimen are submitted as [...] is entirely submitted in cassette E1. (dlk) ks/06/16/2017 Intraoperative Consultation: A1FS, lymph node, "level 5/6 lymph node for frozen", biopsy: Negative for malignancy. Jane Concepcion MD If immunohistochemical stains and/or in situ hybridization are cited in this report, the performance characteristics were determined by the Department of Pathology and Laboratory Medicine of the [facility] ([employer]) in compliance with [...] of Pathology and Laboratory Medicine of the [facility]. It has not been cleared or approved by the FDA. The FDA has determined that such clearance or approval is not necessary. Specimen Performing Laboratory [facility] RESULTS * BLOOD TYPE CONFIRMATION - ORDER ONLY IF REQUESTED BY LAB (06/16/2017 7:15 AM) Component Value Ref Range ABO/RH(D) A POS Specimen Performing Laboratory Blood [facility] MAIN [facility] [address] [place] [address] in this encounter Visit Diagnoses Diagnosis Lung mass Swelling, mass, or lump in chest in this encounter Admitting Diagnoses Diagnosis Lung mass - UNKNOWN Swelling, mass, or lump in chest Mass of left lung in this encounter Administered Medications Medication Order MAR Action Action Date Dose Rate Site mineral oil (topical) Given 06/16/2017 10 mL INTRA-PROCEDURE MED, Starting Wed 09:00 LABORATORY MACHINIST 06/16/17 at 0810, Until Wed06/16/17 at 1505, Intra-op tranexamic acid (CYKLOKAPRON) injection Given 06/16/2017 10 mL Chest , Left INTRA-PROCEDURE MED, Starting Wed 10:27 LABORATORY MACHINIST 06/16/17 at 1027, Until Wed06/16/17 at 1505, Intra-op in this encounter
--- OUTSIDE RECORDS SUMMARY | 2017-08-10 06:57 | XMS REPORT | Encounter Summary ---
Author Author [facility] Address Unknown Phone Unavailable Care Team Providers Care Clay Pigeon Loader Name Role Phone PCP Unavailable Reason for Visit * Auth/Cert Status Reason Specialty Diagnoses / Referred By Referred To Procedures Contact Contact Diagnoses Lung mass UNKNOWN P rocedures LEFT VATS LEFT UPPER LOBECTOMY Encounter Details Date Type Department Care Team Description 06/16/2017 Anesthesia Cardiovascular Operating [facility], [facility] Room [address] [place] [id number] Social History Tobacco Use Types Packs/Day Years Used Date Current Every Day Smoker Cigarettes 0.5 Smokeless Tobacco: Never Used Sex Assigned at Date Recorded Not on file as of this encounter OR Notes * Anesthesia Postprocedure Evaluation - Hesham Talley MD - 06/16/2017 2:07 PM [employer] Post-Anesthesia Evaluation Name: Nydia Arriaga : 1945 Age: 72 y.o. Sex: female Procedure Date: 06/16/2017 Procedure: Procedure(s): LEFT VIDEO ASSISTED THORACOSCOPY, LEFT UPPER LOBECTOMY Surgeon: Surgeon(s): Daniel Khan MD Post-Anesthesia Vitals BP: 124/79 (06/16 1345) Temp: 36.4 C (97.5 F) (06/16 1058) Pulse: 68 (06/16 1345) Respirations: 11 PER MINUTE (06/16 1345) SpO2: 98 % (06/16 1345) O2 Delivery: Nasal Cannula (06/16 1345) SpO2 Pulse: 68 (06/16 1345) Height: 167.6 cm (66") (06/16 0704) Post Anesthesia Evaluation Note Evaluation location: Pre/Post Patient participation: recovered; patient participated in evaluation Level of consciousness: alert Pain management: adequate (Fentanyl [employer] ordered by primary) Hydration: normovolemia Temperature: 36.0C - 38.4C Airway patency: adequate Perioperative Events Perioperative events: no Post-op nausea and vomiting: no PONV Postoperative Status Cardiovascular status: hemodynamically stable Respiratory status: spontaneous ventilation Perioperative Events Perioperative Event: No Emergency Case Activation: No Associated attestation - Tin Rascon MD - 06/18/2017 7:14 AM [employer] I have reviewed the history and assessment of the patient, Nydia Arriaga by Dr. Hesham Talley. We have discussed the diagnosis and treatment plan together. Tin Rascon MD * Anesthesia Procedure Notes - Jose Contreras MD - 06/16/2017 9:27 AM [employer] Associated Order(s): ANESTHESIA ARTERIAL LINE INSERTION Formatting of this note may be different [...] place. Performed by: ALBERT HERNANDEZ Authorized by: JOSE CONTRERAS ATTESTATION I was present during the entire procedure performed by vin Hernandez. Staff name: Izaiah Contreras MD Date: 06/16/2017 * Anesthesia Preprocedure Evaluation - Jose Contreras MD - 06/15/2017 12:00 PM [employer] Formatting of this note may be different from the original. Anesthesia Pre-Procedure Evaluation Name: Nydia Arriaga : 1945 Age: 72 y.o. Sex: female Procedure Date: 06/16/2017 Procedure: Procedure(s): LEFT VIDEO ASSISTED THORACOSCOPY, LEFT UPPER LOBECTOMY Physical Assessment Vital Signs (last filed in past 24 hours): BP: 140/65 (06/16 730) Temp: 36.5 C (97.7 F) (06/16 704) Pulse: 59 (06/16 730) Respirations: 18 PER MINUTE (06/16 730) SpO2: 95 % (06/16 730) O2 Delivery: None (Room Air) (06/16 704) Height: 167.6 cm (66") (06/16 704) Weight: 77.3 kg (170 lb 6.7 oz) (06/16 704) Patient History Allergies Allergen Reactions Sulfa (Sulfonamide Antibiotics) HIVES Lisinopril COUGH Current Medications Medication Directions amLODIPine (NORVASC) 10 mg tablet Take 10 [...] 100 mg by mouth twice daily. omega 2-oom-cpj-fish oil 300-1,000 mg capsule Take 3 Caps [...] tablet Take 1 tablet by mouth daily. Review of Systems/Medical History Patient summary reviewed Nursing notes reviewed Pertinent labs reviewed PONV Screening: Female gender and Postoperative opioids No history of anesthetic complications No family history of anesthetic complications Airway - negative Pulmonary Current smoker (>50 pack year hx) COPD, mild (LAst PFT with FEV1: 2.41) Cardiovascular Recent diagnostic studies: ECG and stress test ECG: Sinus Bradycardia,, RBBB, HR: 58, QTc: 448 Caroid duplex 11/2014: Mild bilateral carotid plaque without evidence of any hemodynamic significance. Cardiac Cath 08/2013: Mild CAD, Normal Global left ventricular systolic function with an EF of 65-70%. Normal left ventricular end diastolic pressure. No significant mitral regurgitation. Nuclear Stress Test 06/2016: No evidence of significant myocardial ischemia or infarction. Normal global left ventricular systolic function with a EF of 75%. Normal left ventricular cavity size. Normal regional wall motion. 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 Abdominal Findings: Not obese Neurological Findings: Normal mental status Diagnostic Tests Hematology: Lab Results Component Value Date HGB 14.4 06/15/2017 HCT 42.3 06/15/2017 PLTCT 284 06/15/2017 WBC 4.8 06/15/2017 MCV 92.2 06/15/2017 MCH 31.3 06/15/2017 MCHC 34.0 06/15/2017 MPV 7.9 06/15/2017 RDW 14.1 06/15/2017 General Chemistry: Lab Results Component Value Date NA 139 06/15/2017 K 3.9 06/15/2017 CL 104 06/15/2017 CO2 29 06/15/2017 GAP 6 06/15/2017 BUN 15 06/15/2017 CR 0.86 06/15/2017 GLU 108 06/15/2017 CA 10.3 06/15/2017 ALBUMIN 3.9 06/15/2017 TOTBILI 0.3 06/15/2017 Coagulation: Lab Results Component Value Date PTT 26.7 06/15/2017 INR 0.9 06/15/2017 Anesthesia Plan ASA score: 4 Plan: general and invasive monitoring Special equipment/procedures: LUIS and double lumen tube Induction method: intravenous Comments: (Consented for possible regional anesthesia for postoperative pain control. PFT's to be performed after PAC appointment.) Informed Consent Anesthetic plan and risks discussed with patient. Use of blood products discussed with patient;. Plan discussed with: anesthesiologist and resident. in this encounter Plan of Treatment Date Type Specialty Care Team Description 07/08/2017 Procedure Pass Cardiothoracic Surgery as of this encounter Results * ANESTHESIA ARTERIAL LINE INSERTION (06/16/2017 11:07 AM) Narrative Jose Contreras MD 06/16/2017 11:07 AM Anesthesia Procedure: Arterial [...] place. Performed by: ALBERT HERNANDEZ Authorized by: JOSE CONTRERAS in this encounter Visit Diagnoses Not on filein this encounter Administered Medications Medication Order MAR Action Action Date Dose Rate Site acetaminophen (OFIRMEV) injection Given 06/16/2017 1,000 mg Administer over 15 Minutes, 10:28 [employer] INTRA-PROCEDURE MED, Starting Wed06/16/17 at 1028, Until Wed06/16/17 at 1108, Pain non-opioid: may be used alone or in combination with opioid analgesia, Anesthesia Intra-op ceFAZolin (ANCEF) injection Given 06/16/2017 2 g INTRA-PROCEDURE MED, Starting Wed 08:56 [employer] 06/16/17 at 0856, Until Wed06/16/17 at 1108, Anesthesia Intra-op dexamethasone (DECADRON) injection Given 06/16/2017 4 mg Intravenous, INTRA-PROCEDURE MED, 08:44 [employer] Starting Wed06/16/17 at 0844, Until Wed06/16/17 at 1108, Nausea/Vomiting Injectable, Anesthesia Intra-op ePHEDrine 50 mg/mL 50 mg in sodium Given - New 06/16/2017 10 mg chloride PF 0.9% 5 mL IV syringe Bag 09:13 [employer] 5 mL, INTRA-PROCEDURE MED(CONT), Starting Wed06/16/17 at 0913, Until Wed06/16/17 at 1108, Anesthesia Intra-op Bolus 06/16/2017 10 mg 09:18 [employer] fentaNYL citrate PF (SUBLIMAZE) Given 06/16/2017 100 mcg injection 08:27 [employer] INTRA-PROCEDURE MED, Starting Wed06/16/17 at 0827, Until Wed06/16/17 at 1108, Pain Injectable, Anesthesia Intra-op Given 06/16/2017 100 mcg 10:54 [employer] lidocaine (PF) injection Given 06/16/2017 80 mg INTRA-PROCEDURE MED, Starting Wed 08:27 [employer] 06/16/17 at 0827, Until Wed06/16/17 at 1108, Anesthesia Intra-op ondansetron (ZOFRAN) injection Given 06/16/2017 4 mg Intravenous, INTRA-PROCEDURE MED, 10:28 [employer] Starting Wed06/16/17 at 1028, Until Wed06/16/17 at 1108, Nausea/Vomiting Injectable, Anesthesia Intra-op phenylephrine (ROMINA-SYNEPHRINE) 10 mg in Dose/Rate 06/16/2017 0.5 58 mL /hr sodium chloride 0.9% (NS) 250 mL IV drip Change 09:35 [employer] mcg/kg/min (std conc) 10 mg 250 mL, INTRA-PROCEDURE MED(CONT), Starting Wed06/16/17 at 0920, Until Wed06/16/17 at 1108, Anesthesia Intra-op Infusion Restarted 06/16/2017 0.3 34.8 mL/hr 09:53 [employer] mcg/kg/min Infusion Restarted 06/16/2017 0.2 23.2 mL/hr 10:03 [employer] mcg/kg/min phenylephrine in NS Injection Given 06/16/2017 100 mcg INTRA-PROCEDURE MED, Starting Wed 09:13 [employer] 06/16/17 at 0913, Until Wed06/16/17 at 1108, Symptomatic Hypotension, Anesthesia Intra-op Given 06/16/2017 100 mcg 09:22 [employer] propofol (DIPRIVAN) injection Given 06/16/2017 120 mg INTRA-PROCEDURE MED, Starting Wed 08:27 [employer] 06/16/17 at 0827, Until Wed06/16/17 at 1108, Anesthesia Intra-op rocuronium (ZEMURON) injection Given 06/16/2017 40 mg Intravenous, INTRA-PROCEDURE MED, 08:27 [employer] Starting Wed06/16/17 at 0827, Until Wed06/16/17 at 1108, Anesthesia Intra-op Given 06/16/2017 40 mg 08:31 [employer] sugammadex (BRIDION) injection Given 06/16/2017 155 mg Intravenous, INTRA-PROCEDURE MED, 10:45 [employer] Starting Wed06/16/17 at 1045, Until Wed06/16/17 at 1108, Anesthesia Intra-op in this encounter
--- OUTSIDE RECORDS SUMMARY | 2017-08-10 06:57 | XMS REPORT | Encounter Summary ---
Author Author [facility] Organization [facility] Address Unknown Phone Unavailable Care Team Providers Care Commercial Relationship Manager Name Role Phone PCP Unavailable Encounter Details Date Type Department Care Team Description 06/08/2017 Pre-Admit [facility], Daniel, Lung mass (Primary Orders Only Cardiovascular Surgeons MD Dx);Neuroendocrine [address] carcinoma of lung ([place]) [place] [address] [address] [place] [address] [phone] Social History Tobacco Use Types Packs/Day Years Used Date Current Every Day Smoker Cigarettes 0.5 Smokeless Tobacco: Never Used Sex Assigned at Date Recorded Not on file as of this encounter Plan of Treatment Date Type Specialty Care Team Description 07/08/2017 Procedure Pass Cardiothoracic Surgery Name Priority Associated Diagnoses Order Schedule ECG 12-LEAD Routine Lung mass Expected: 06/15/2017, Neuroendocrine carcinoma Expires: 06/08/2018 of lung (HCC) as of this encounter Results * PTT (APTT) (06/15/2017 11:31 AM) Component Value Ref Range APTT 26.7Comment: NOTE NEW REFERENCE RANGES 21.0 - 39.0 SEC Specimen Performing Laboratory [facility] [address] [place] [address] * PROTIME INR (PT) (06/15/2017 11:31 AM) Component Value Ref Range INR 0.9 0.8 - 1.2 Specimen Performing Laboratory [facility] [address] [place] [address] * COMPREHENSIVE METABOLIC PANEL (06/15/2017 11:31 AM) Component Value Ref Range Sodium 139 137 - 147 MMOL/L Potassium 3.9 3.5 - 5.1 MMOL/L Chloride 104 98 - 110 MMOL/L Glucose 108 (H) 70 - 100 MG/DL Blood Urea Nitrogen 15 7 - 25 MG/DL Creatinine 0.86 0.4 - 1.00 MG/DL Calcium 10.3 8.5 - 10.6 MG/DL Total Protein 6.7 6.0 - 8.0 G/DL Total Bilirubin 0.3 0.3 - 1.2 MG/DL Albumin 3.9 3.5 - 5.0 G/DL Alk Phosphatase 50 25 - 110 U/L AST (SGOT) 19 7 - 40 U/L CO2 29 21 - 30 MMOL/L ALT (SGPT) 12 7 - 56 U/L Anion Gap 6 3 - 12 eGFR Non >60 >60 [...] questions. Specimen Performing Laboratory [facility] [address] [place] [address] * CBC (06/15/2017 11:31 AM) Component Value Ref Range White Blood Cells 4.8 4.5 - 11.0 K/UL RBC 4.60 4.0 - 5.0 M/UL Hemoglobin 14.4 12.0 - 15.0 GM/DL Hematocrit 42.3 36 - 45 % MCV 92.2 80 - 100 FL MCH 31.3 26 - 34 PG MCHC 34.0 32.0 - 36.0 G/DL RDW 14.1 11 - 15 % Platelet Count 284 150 - 400 K/UL MPV 7.9 7 - 11 FL Specimen Performing Laboratory [facility] [address] [place] [address] * TYPE & CROSSMATCH (06/15/2017 11:22 AM) Component Value Ref Range Units Ordered 0 Crossmatch Expires 06/18/2017 Record Check 2ND TYPE REQUIRED ABO/RH(D) A POS Antibody Screen NEG Electronic Crossmatch YES Specimen Performing Laboratory [facility] [address] [place] [address] in this encounter Visit Diagnoses Diagnosis Lung mass - Primary Swelling, mass, or lump in chest Neuroendocrine 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
--- OUTSIDE RECORDS SUMMARY | 2017-08-10 06:57 | XMS REPORT | Encounter Summary ---
Author Author [facility] Organization [facility] Address Unknown Phone Unavailable Care Team Providers Care Hearing Aid Specialist Name Role Phone PCP Unavailable Encounter Details Date Type Department Care Team Description 06/01/2017 Hospital [facility] Radiology [address] [place] [address] Social History Tobacco Use Types Packs/Day Years Used Date Current Every Day Smoker Cigarettes 0.5 Smokeless Tobacco: Never Used Sex Assigned at Date Recorded Not on file as of this encounter Medications at Time of Discharge Medication Sig. Disp. Refills Start Date End Date amLODIPine (NORVASC) 10 Take 10 mg by mouth daily mg tablet after lunch. aspirin EC 81 mg tablet Take 81 mg by mouth daily. atorvastatin (LIPITOR) 10 Take 10 mg by mouth every mg tablet 48 hours. cholecalciferol (VITAMIN Take 1,000 Units by mouth D-3) 1,000 units tablet daily. dicyclomine (BENTYL) 10 Take 10 mg by mouth three mg capsule times daily as needed. metoprolol (LOPRESSOR) Take 100 mg by mouth 100 mg tablet twice daily. omega 7-moa-xlr-fish oil Take 3 Caps by mouth 300-1,000 mg capsule daily. pantoprazole DR Take 40 mg by mouth (PROTONIX) 40 mg tablet daily. valsartan (DIOVAN) 320 mg Take 320 mg by mouth tablet daily. calcium gluconate 1,000 mEq daily. 06/15/2017 MULTIVITAMIN (MULTIPLE Take 1 Tab by mouth 06/15/2017 VITAMINS DAILY PO) daily. as of this encounter Plan of Treatment Date Type Specialty Care Team Description 07/08/2017 Procedure Pass Cardiothoracic Surgery as of this encounter Results * NM PET/CT EXTERNAL IMAGING (06/01/2017) Narrative This order has been auto finalized and does not contain a result. in this encounter Visit Diagnoses Diagnosis Diagnosis unknown Other unknown and unspecified cause of morbidity or mortality in this encounter
--- OUTSIDE RECORDS SUMMARY | 2017-08-10 06:57 | XMS REPORT | Encounter Summary ---
Author Author [facility] Organization [facility] Address Unknown Phone Unavailable Care Team Providers Care Crm Coordinator Name Role Phone PCP Unavailable Encounter Details Date Type Department Care Team Description 06/03/2017 Ancillary Rad Outpatient, Radiologist Diagnosis unknown Orders [address] [place] [address] Social History Tobacco Use Types Packs/Day Years [...]
--- OUTSIDE RECORDS SUMMARY | 2017-08-10 06:57 | XMS REPORT | Encounter Summary ---
Author Author [facility] Organization [facility] Address Unknown Phone Unavailable Care Team Providers Care Ore Smelter Name Role Phone PCP Unavailable Encounter Details Date Type Department Care Team Description 06/15/2017 Hospital [facility] Pulmonary MD Function [address] [place] [address] [place] [address] [phone] Social History Tobacco Use Types Packs/Day Years [...] cheek (side of mouth) as Needed. omega 4-gxx-oav-fish oil Take 3 Caps by mouth 300-1,000 [...] tablet Take 1 tablet by mouth daily. buPROPion SR(+) Take only one tablet in 180 tablet 3 06/18/2017 (WELLBUTRIN-SR) 150 mg the AM on 06/19/17, then tablet start taking one tablet twice daily on 06/20/17 buPROPion XL (WELLBUTRIN Take 1 tablet by mouth 90 tablet 0 201606/18/2017 XL) 150 mg daily. Do not crush or tabletIndications: chew. Indications: SMOKING CESSATION SMOKING CESSATION milk of magnesia (CONC) Take 10 mL by mouth 360 mL 06/19/20172016 2,400 mg/10 mL oral daily. Indications: suspensionIndications: CONSTIPATION constipation oxyCODONE (ROXICODONE, Take 1-2 tablets by mouth 75 tablet 0 201606/18/2017 OXY-IR) 5 mg tablet every 4 hours as needed for Pain Earliest Fill Date: 06/18/17 oxyCODONE (ROXICODONE, Take 1-2 tablets by mouth [...] 1-2 tablets by mouth 60 tablet 0 201606/18/2017 tablet every 6 hours as needed for Pain. traMADol (ULTRAM) 50 mg Take 1-2 tablets by mouth 60 tablet 0 201607/08/2017 tablet every 6 hours as needed for Pain. as of this encounter Plan of Treatment Date Type Specialty Care Team Description 07/08/2017 Procedure Pass Cardiothoracic Surgery as of this encounter Results * PFT COMPLETE PULM FUNCTION (06/15/2017 1:08 PM) Component Value Ref Range FVC-Pre 2.52 L FVC-%Pred-pre 84 % FEV1-Pre 2.05 L FEV1-%Pred-Pre 91 % [id number]-Skw 2.15 L/sec YDM1390-%Pred-Pre 118 % VCSVC-Pre 2.50 L ICSVC-Pre 1.52 [...] Specimen Performing Laboratory [facility] [address] [place] [address] in this encounter Visit Diagnoses Diagnosis Lung mass - Primary Swelling, mass, or lump in chest in this encounter
--- OUTSIDE RECORDS SUMMARY | 2017-08-10 06:57 | XMS REPORT | Encounter Summary ---
Author Author [facility] Organization [facility] Address Unknown Phone Unavailable Care Team Providers Care Managing Director Name Role Phone PCP Unavailable Encounter Details Date Type Department Care Team Description 06/07/2017 Orders Only [facility] Anuja Bacon RN Lung mass (Primary Dx) [facility] [address] [place] [address] Social History Tobacco Use Types Packs/Day Years Used Date Current Every Day Smoker Cigarettes 0.5 Smokeless Tobacco: Never Used Sex Assigned at Date Recorded Not on file as of this encounter Plan of Treatment Date Type Specialty Care Team Description 07/08/2017 Procedure Pass Cardiothoracic Surgery as of this encounter Visit Diagnoses Diagnosis Lung mass - Primary Swelling, mass, or lump in chest in this encounter
--- OUTSIDE RECORDS SUMMARY | 2017-08-10 06:57 | XMS REPORT | Encounter Summary ---
Author Author [facility] Organization [facility] Address Unknown Phone Unavailable Care Team Providers Care Licensed Mortgage Loan Officer Name Role Phone PCP Unavailable Encounter Details Date Type Department Care Team Description 06/07/2017 Prep for Case [facility] Ve[facility] saxena, Cardiovascular Surgeons [address] [facility] [address] [place] [address] [place] [address] [place] [address] [phone] Social History Tobacco Use Types Packs/Day Years Used Date Current Every Day Smoker Cigarettes 0.5 Smokeless Tobacco: Never Used Sex Assigned at Date Recorded Not on file as of this encounter Plan of Treatment Date Type Specialty Care Team Description 07/08/2017 Procedure Pass Cardiothoracic Surgery as of this encounter Visit Diagnoses Not on filein this encounter
--- OUTSIDE RECORDS SUMMARY | 2017-08-10 06:57 | XMS REPORT | Encounter Summary ---
Author Author [facility] Organization [facility] Address Unknown Phone Unavailable Care Team Providers Care Emissions Repair Technician Name Role Phone PCP Unavailable Encounter Details Date Type Department Care Team Description 06/15/2017 PAC Office Preoperative Assessment Daniel Khan, Encounter for blood Visit Clinic MD typing (Primary Dx);Lung [address] [facility];[place] [address] [place] [address] carcinoma of lung (HCC) [phone] [place] [address] [phone] Social History Tobacco Use Types Packs/Day Years Used Date Current Every Day Smoker Cigarettes 0.5 Smokeless Tobacco: Never Used Sex Assigned at Date Recorded Not on file as of this encounter Last Filed Vital Signs Vital Sign Reading Time Taken Blood Pressure - - Pulse 60 06/15/2017 11:25 AM [facility] Temperature 36.7 C (98.1 F) 06/15/2017 11:25 AM [facility] Respiratory Rate - - Oxygen Saturation 98% 06/15/2017 11:25 AM [facility] Inhaled Oxygen - - Concentration Weight 78.4 kg (172 lb 12.8 oz) 06/15/2017 11:25 AM [facility] Height 167.6 cm (5' 6") 06/15/2017 11:25 AM [facility] Body Mass Index 27.89 06/15/2017 11:25 AM [facility] in this encounter Instructions * Pre-Anesthesia Medication Instructions - Merlyn Jade, MAX - 06/15/2017 11:40 AM [facility] Formatting of this note may be different from the original. YOUR MEDICATIONS: amLODIPine (NORVASC) 10 mg tablet Take 10 [...] 100 mg by mouth twice daily. omega 9-oaj-lfa-fish oil 300-1,000 mg capsule Take 3 Caps [...] tablet Take 1 tablet by mouth daily. YOUR MEDICATION INSTRUCTIONS FOR SURGERY: Before surgery Stop the following medications NOW: Vitamins, supplements and herbal and natural products including: Multivitamin Fish oil Probiotic Vitamin D Vitamin E Calcium Stop the following medications NOW: Anti-inflammatory medications such as ibuprofen (Advil, Motrin) and naproxen (Aleve) You may use acetaminophen (Tylenol) Please follow these instructions regarding your blood thinner medications: Aspirin - Continue as usual, but skip dose on the morning of surgery Morning of surgery On the morning of surgery, do NOT take these medications: Remaining vitamins/supplements Ointments/creams/lotions Valsartan Simethicone (GasX) Dicyclomine On the morning of surgery, take ONLY these medications with a sip (1-2 ounces) of water: Pantoprazole Atorvastatin (if day to take) Metoprolol Other information Before surgery, please contact the clinic pharmacist with any medicine updates or questions. E-mail: [email or web address] Before going home from the hospital, please ask your doctor when you should re- start your medicines that were stopped before surgery. in this encounter Progress Notes * Merlyn Jade PHARMD - 06/15/2017 12:00 PM [facility] PAC Beta Ava Instructions Note: Nydia Arriaga was seen in the PAC on 06/15/2017. As part of the visit, an accurate medication list was obtained and the patient was given pre-op medication instructions for upcoming surgery on 06/16/17 Nydia Arriaga is currently taking a beta ava/Metoprolol. The patient was instructed to continue their beta ava as prescribed and to take it on the day of surgery. The patient verbalized understanding. Merlyn Jade PHARMD * Jessy Combs, RN - 06/15/2017 12:00 PM [facility] Pre-op instructions given. Pt told arrival time (0630), NPO at NC, and CHG 4% shower X 2. Pt taken to registration and now in PAC. in this encounter Plan of Treatment Date Type Specialty Care Team Description 07/08/2017 Procedure Pass Cardiothoracic Surgery as of this encounter Results * PTT (APTT) (06/15/2017 11:31 AM) Component Value Ref Range APTT 26.7Comment: NOTE NEW REFERENCE RANGES 21.0 - 39.0 SEC Specimen Performing Laboratory Blood MAIN LAB [address] [place] [address] * PROTIME INR (PT) (06/15/2017 11:31 AM) Component Value Ref Range INR 0.9 0.8 - 1.2 Specimen Performing Laboratory Blood MAIN LAB [address] [place] [address] * COMPREHENSIVE METABOLIC PANEL (06/15/2017 11:31 AM) [...] Specimen Performing Laboratory Blood MAIN LAB [address] [place] [address] * CBC (06/15/2017 11:31 AM) Component Value [...] Specimen Performing Laboratory Blood MAIN LAB [address] [place] [address] * TYPE & CROSSMATCH (06/15/2017 11:22 AM) Component Value Ref Range Units Ordered 0 Crossmatch Expires 06/18/2017 Record Check 2ND TYPE REQUIRED ABO/RH(D) A POS Antibody Screen NEG Electronic Crossmatch YES Specimen Performing Laboratory Blood MAIN LAB [address] [place] [address] in this encounter Visit Diagnoses Diagnosis Encounter for blood typing - Primary Lung mass Swelling, mass, or lump in chest Neuroendocrine 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
[2017-08-10] MEDS ORDERED: NS IV 1000 ML 1,000 ML IV SCH ×2 (07:00→10:59)
--- OUTSIDE RECORDS SUMMARY | 2017-08-10 07:00 | XMS REPORT | Continuity of Care Document ---
Author Author Formerly [facility] Address Unknown Phone Unavailable Allergies Active Description Code Type Severity Reaction Onset Reported/Identified Relationship to Patient Clinical Status Yes Sulfa (Sulfonamide Antibiotics) [id number] Drug Allergy Unknown N/A 2005 Yes Sulfa (Sulfonamide Antibiotics) Drug Allergy N/A N/A 10/27/2008 Yes sulfa drug Drug Allergy 10/27/2008 Yes lisinopril Drug Allergy N/A N/A 11/07/2009 Yes lisinopril Drug Allergy 11/07/2009 Yes codeine Drug Allergy N/A N/A 03/16/2013 Yes hydrochlorothiazide Drug Allergy N/A N/A 03/16/2013 Yes lisinopril [id number] Drug Allergy Unknown N/A 11/15/2013 Medications There is no data. Problems Date Dx Coded Attending Type Code Diagnosis Diagnosed By 02/21/2008 GEN BRAVO APRN 401.1 ESSENTIAL HYPERTENSION BENIGN 02/21/2008 401.1 ESSENTIAL HYPERTENSION BENIGN 02/21/2008 401.1 ESSENTIAL HYPERTENSION BENIGN 02/21/2008 GEN BRAVO APRN 401.1 ESSENTIAL HYPERTENSION BENIGN 02/21/2008 401.1 ESSENTIAL HYPERTENSION BENIGN 02/21/2008 401.1 ESSENTIAL HYPERTENSION BENIGN 02/21/2008 EARNEST MILLER, GABI 401.1 ESSENTIAL HYPERTENSION BENIGN 03/07/2008 GEN BRAVO APRN 786.05 Shortness Of Breath 03/07/2008 GEN BRAVO APRN 786.50 Chest Pain 03/07/2008 786.05 Shortness Of Breath 03/07/2008 786.50 Chest Pain 03/07/2008 786.05 Shortness Of Breath 03/07/2008 786.50 Chest Pain 03/07/2008 GEN BRAVO APRN 786.05 Shortness Of Breath 03/07/2008 GEN BRAVO APRN 786.50 Chest Pain 03/07/2008 786.05 Shortness Of Breath 03/07/2008 786.50 Chest Pain 03/07/2008 786.05 Shortness Of Breath 03/07/2008 786.50 Chest Pain 03/07/2008 GABI TINOCO MD 786.05 Shortness Of Breath 03/07/2008 GABI TINOCO MD 786.50 Chest Pain 03/29/2008 GEN BRAVO APRN S 785.0 Tachycardia Unspecified 03/29/2008 785.0 Tachycardia Unspecified 03/29/2008 785.0 Tachycardia Unspecified 03/29/2008 GEN BRAVO APRN S 785.0 Tachycardia Unspecified 03/29/2008 785.0 Tachycardia Unspecified 03/29/2008 785.0 Tachycardia Unspecified 03/29/2008 GABI TNIOCO MD 785.0 Tachycardia Unspecified 07/24/2008 GEN BRAVO APRN S 787.02 Nausea Alone 07/24/2008 787.02 Nausea Alone 07/24/2008 787.02 Nausea Alone 07/24/2008 GEN BRAVO APRN S 787.02 Nausea Alone 07/24/2008 787.02 Nausea Alone 07/24/2008 787.02 Nausea Alone 07/24/2008 GABI TINOCO MD 787.02 Nausea Alone 07/31/2008 GEN BRAVO APRN 780.79 Feelings Of Weakness 07/31/2008 GEN BRAVO APRN S 789.00 Abdominal Pain 07/31/2008 780.79 Feelings Of Weakness 07/31/2008 789.00 Abdominal Pain 07/31/2008 780.79 Feelings Of Weakness 07/31/2008 789.00 Abdominal Pain 07/31/2008 GEN BRAVO APRN S 780.79 Feelings Of Weakness 07/31/2008 GEN BRAVO APRN S 789.00 Abdominal Pain 07/31/2008 780.79 Feelings Of Weakness 07/31/2008 789.00 Abdominal Pain 07/31/2008 780.79 Feelings Of Weakness 07/31/2008 789.00 Abdominal Pain 07/31/2008 GABI TINOCO MD 780.79 Feelings Of Weakness 07/31/2008 GABI TINOCO MD 789.00 Abdominal Pain 09/28/2008 GEN BRAVO APRN S 530.10 Esophagitis 09/28/2008 530.10 Esophagitis 09/28/2008 530.10 Esophagitis 09/28/2008 GEN BRAVO APRN S 530.10 Esophagitis 09/28/2008 530.10 Esophagitis 09/28/2008 530.10 Esophagitis 09/28/2008 GABI TINOCO MD 530.10 Esophagitis 10/27/2008 GEN BRAVO APRN S 729.5 Pain In Limb 10/27/2008 729.5 Pain In Limb 10/27/2008 729.5 Pain In Limb 10/27/2008 GEN BRAVO APRN S 729.5 Pain In Limb 10/27/2008 729.5 Pain In Limb 10/27/2008 729.5 Pain In Limb 10/27/2008 GABI TINOCO MD 729.5 Pain In Limb 11/13/2008 GEN BRAVO APRN S NODX No Diagnosis 11/13/2008 NODX No Diagnosis 11/13/2008 NODX No Diagnosis 11/13/2008 GEN BRAVO APRN S NODX No Diagnosis 11/13/2008 NODX No Diagnosis 11/13/2008 NODX No Diagnosis 11/13/2008 GABI TINOCO MD NODX No Diagnosis 01/17/2009 GEN BRAVO APRN S 627.9 Menopausal Disorder 01/17/2009 GEN BRAVO APRN S V72.31 Pelvic Exam (internal) 01/17/2009 627.9 Menopausal Disorder 01/17/2009 V72.31 Pelvic Exam ( internal) 01/17/2009 627.9 Menopausal Disorder 01/17/2009 V72.31 Pelvic Exam ( internal) 01/17/2009 GEN BRAVO APRN S 627.9 Menopausal Disorder 01/17/2009 GEN BRAVO APRN S V72.31 Pelvic Exam (internal) 01/17/2009 627.9 Menopausal Disorder 01/17/2009 V72.31 Pelvic Exam ( internal) 01/17/2009 627.9 Menopausal Disorder 01/17/2009 V72.31 Pelvic Exam ( internal) 01/17/2009 GABI TINOCO MD 627.9 Menopausal Disorder 01/17/2009 GABI TINOCO MD V72.31 Pelvic Exam (internal) 01/22/2009 SHAKIRA BRAVO APRNA S 473.9 Unspecified Sinusitis (chronic) 01/22/2009 473.9 Unspecified Sinusitis (chronic) 01/22/2009 473.9 Unspecified Sinusitis (chronic) 01/22/2009 SHAKIRA BRAVO APRNA S 473.9 Unspecified Sinusitis (chronic) 01/22/2009 473.9 Unspecified Sinusitis (chronic) 01/22/2009 473.9 Unspecified Sinusitis (chronic) 01/22/2009 GABI TINOCO MD 473.9 Unspecified Sinusitis (chronic) 03/19/2009 SHAKIRA BRAVO APRNA S 401.9 ESSENTIAL HYPERTENSION 03/19/2009 SHAKIRA BRAVO APRNA S 616.10 Vaginitis 03/19/2009 SHAKIRA BRAVO APRNA S 786.2 cough 03/19/2009 401.9 ESSENTIAL HYPERTENSION 03/19/2009 616.10 Vaginitis 03/19/2009 786.2 cough 03/19/2009 401.9 ESSENTIAL HYPERTENSION 03/19/2009 616.10 Vaginitis 03/19/2009 786.2 cough 03/19/2009 SHAKIRA BRAVO APRNA S 401.9 ESSENTIAL HYPERTENSION 03/19/2009 MATEO BRAVO APRNNDA S 616.10 Vaginitis 03/19/2009 MATEO BRAVO APRNNDA S 786.2 cough 03/19/2009 401.9 ESSENTIAL HYPERTENSION 03/19/2009 616.10 Vaginitis 03/19/2009 786.2 cough 03/19/2009 401.9 ESSENTIAL HYPERTENSION 03/19/2009 616.10 Vaginitis 03/19/2009 786.2 cough 03/19/2009 GABI TINOCO MD 401.9 ESSENTIAL HYPERTENSION 03/19/2009 GABI TINOCO MD 616.10 Vaginitis 03/19/2009 GABI TINOCO MD 786.2 cough 04/10/2009 SHAKIRA BRAVO APRNA S 305.1 NICOTINE DEPENDENCE 04/10/2009 MATEO BRAVO APRNNDA S 708.9 Urticaria 04/10/2009 MATEO BRAVO APRNNDA S 787.20 Difficulty Swallowing With Food Sticking In The Throat 04/10/2009 305.1 NICOTINE DEPENDENCE 04/10/2009 708.9 Urticaria 04/10/2009 787.20 Difficulty Swallowing With Food Sticking In The Throat 04/10/2009 305.1 NICOTINE DEPENDENCE 04/10/2009 708.9 Urticaria 04/10/2009 787.20 Difficulty Swallowing With Food Sticking In The Throat 04/10/2009 MATEO BRAVO APRNNDA S 305.1 NICOTINE DEPENDENCE 04/10/2009 SHELLY GARCIA GEN S 708.9 Urticaria 04/10/2009 SHELLY GARCIA GEN S 787.20 Difficulty Swallowing With Food Sticking In The Throat 04/10/2009 305.1 NICOTINE DEPENDENCE 04/10/2009 708.9 Urticaria 04/10/2009 787.20 Difficulty Swallowing With Food Sticking In The Throat 04/10/2009 305.1 NICOTINE DEPENDENCE 04/10/2009 708.9 Urticaria 04/10/2009 787.20 Difficulty Swallowing With Food Sticking In The Throat 04/10/2009 GABI TINOCO MD 305.1 NICOTINE DEPENDENCE 04/10/2009 GABI TINOCO MD 708.9 Urticaria 04/10/2009 GABI TINOCO MD 787.20 Difficulty Swallowing With Food Sticking In The Throat 07/04/2009 GEN BRAVO APRN S 477.9 Allergic Rhinitis 07/04/2009 477.9 Allergic Rhinitis 07/04/2009 477.9 Allergic Rhinitis 07/04/2009 MATEO BRAVO APRNNDA S 477.9 Allergic Rhinitis 07/04/2009 477.9 Allergic Rhinitis 07/04/2009 477.9 Allergic Rhinitis 07/04/2009 GABI TINOCO MD 477.9 Allergic Rhinitis 12/06/2009 MATEO BRAVO APRNNDA S 599.0 Urinary Tract Infection, Site Not Specified 12/06/2009 MATEO BRAVO APRNNDA S 788.1 Dysuria 12/06/2009 SHELLY GARCIA GEN S 788.41 Urinary Frequency 12/06/2009 SHELLY GARCIA GEN S 788.63 Urinary Urgency 12/06/2009 599.0 Urinary Tract Infection, Site Not Specified 12/06/2009 788.1 Dysuria 12/06/2009 788.41 Urinary Frequency 12/06/2009 788.63 Urinary Urgency 12/06/2009 599.0 Urinary Tract Infection, Site Not Specified 12/06/2009 788.1 Dysuria 12/06/2009 788.41 Urinary Frequency 12/06/2009 788.63 Urinary Urgency 12/06/2009 GEN BRAVO APRN S 599.0 Urinary Tract Infection, Site Not Specified 12/06/2009 SHAKIRA BRAVO APRNA S 788.1 Dysuria 12/06/2009 SHAKIRA BRAVO APRNA S 788.41 Urinary Frequency 12/06/2009 GEN BRAVO APRN S 788.63 Urinary Urgency 12/06/2009 599.0 Urinary Tract Infection, Site Not Specified 12/06/2009 788.1 Dysuria 12/06/2009 788.41 Urinary Frequency 12/06/2009 788.63 Urinary Urgency 12/06/2009 599.0 Urinary Tract Infection, Site Not Specified 12/06/2009 788.1 Dysuria 12/06/2009 788.41 Urinary Frequency 12/06/2009 788.63 Urinary Urgency 12/06/2009 EARNEST MILLER, GABI 599.0 Urinary Tract Infection, Site Not Specified 12/06/2009 EARNEST MILLER, GABI 788.1 Dysuria 12/06/2009 GABI TINOCO MD 788.41 Urinary Frequency 12/06/2009 EARNEST MILLER, GABI 788.63 Urinary Urgency 01/23/2010 GEN BRAVO APRN S 300.02 AN GEN ANXIETY 01/23/2010 GEN BRAVO APRN S 536.8 Dyspepsia And Other Specified Disorders Of Function Of Stomach 01/23/2010 300.02 AN GEN ANXIETY 01/23/2010 536.8 Dyspepsia And Other Specified Disorders Of Function Of Stomach 01/23/2010 300.02 AN GEN ANXIETY 01/23/2010 536.8 Dyspepsia And Other Specified Disorders Of Function Of Stomach 01/23/2010 GEN BRAVO APRN S 300.02 AN GEN ANXIETY 01/23/2010 GEN BRAVO APRN S 536.8 Dyspepsia And Other Specified Disorders Of Function Of Stomach 01/23/2010 300.02 AN GEN ANXIETY 01/23/2010 536.8 Dyspepsia And Other Specified Disorders Of Function Of Stomach 01/23/2010 300.02 AN GEN ANXIETY 01/23/2010 536.8 Dyspepsia And Other Specified Disorders Of Function Of Stomach 01/23/2010 GABI TINOCO MD 300.02 AN GEN ANXIETY 01/23/2010 GABI TINOCO MD 536.8 Dyspepsia And Other Specified Disorders Of Function Of Stomach 03/05/2010 GEN BRAVO APRN 719.45 Pain In Joint, Pelvic Region And Thigh 03/05/2010 719.45 Pain In Joint , Pelvic Region And Thigh 03/05/2010 719.45 Pain In Joint , Pelvic Region And Thigh 03/05/2010 GEN BRAVO APRN 719.45 Pain In Joint, Pelvic Region And Thigh 03/05/2010 719.45 Pain In Joint , Pelvic Region And Thigh 03/05/2010 719.45 Pain In Joint , Pelvic Region And Thigh 03/05/2010 GABI TINOCO MD 719.45 Pain In Joint, Pelvic Region And Thigh 03/20/2010 GEN BRAVO APRN S 726.5 Enthesopathy Of Hip Region 03/20/2010 726.5 Enthesopathy Of Hip Region 03/20/2010 726.5 Enthesopathy Of Hip Region 03/20/2010 GEN BRAVO APRN 726.5 Enthesopathy Of Hip Region 03/20/2010 726.5 Enthesopathy Of Hip Region 03/20/2010 726.5 Enthesopathy Of Hip Region 03/20/2010 GABI TINOCO MD 726.5 Enthesopathy Of Hip Region 03/21/2010 GEN BRAVO APRN 784.0 Headache 03/21/2010 784.0 Headache 03/21/2010 784.0 Headache 03/21/2010 GEN BRAVO APRN 784.0 Headache 03/21/2010 784.0 Headache 03/21/2010 784.0 Headache 03/21/2010 GABI TINOCO MD 784.0 Headache 05/20/2010 GEN BRAVO APRN 627.2 SYMPTOMATIC MENOPAUSAL OR FEMALE CLIMACTERIC STATES 05/20/2010 627.2 SYMPTOMATIC MENOPAUSAL OR FEMALE CLIMACTERIC STATES 05/20/2010 627.2 SYMPTOMATIC MENOPAUSAL OR FEMALE CLIMACTERIC STATES 05/20/2010 GEN BRAVO APRN 627.2 SYMPTOMATIC MENOPAUSAL OR FEMALE CLIMACTERIC STATES 05/20/2010 627.2 SYMPTOMATIC MENOPAUSAL OR FEMALE CLIMACTERIC STATES 05/20/2010 627.2 SYMPTOMATIC MENOPAUSAL OR FEMALE CLIMACTERIC STATES 05/20/2010 GABI TINOCO MD 627.2 SYMPTOMATIC MENOPAUSAL OR FEMALE CLIMACTERIC STATES 05/21/2010 Ot 355.0 05/21/2010 Ot 401.9 05/21/2010 Ot 723.1 05/21/2010 Ot 784.0 05/21/2010 Ot V57.1 01/01/2011 GEN BRAVO APRN 465.9 Acute Upper Respiratory Infections Of Unspecified Site 01/01/2011 GEN BRAVO APRN 466.0 Acute Bronchitis 01/01/2011 465.9 Acute Upper Respiratory Infections Of Unspecified Site 01/01/2011 466.0 Acute Bronchitis 01/01/2011 465.9 Acute Upper Respiratory Infections Of Unspecified Site 01/01/2011 466.0 Acute Bronchitis 01/01/2011 GEN BRAVO APRN 465.9 Acute Upper Respiratory Infections Of Unspecified Site 01/01/2011 GEN BRAVO APRN 466.0 Acute Bronchitis 01/01/2011 465.9 Acute Upper Respiratory Infections Of Unspecified Site 01/01/2011 466.0 Acute Bronchitis 01/01/2011 465.9 Acute Upper Respiratory Infections Of Unspecified Site 01/01/2011 466.0 Acute Bronchitis 01/01/2011 GABI TINOCO MD 465.9 Acute Upper Respiratory Infections Of Unspecified Site 01/01/2011 GABI TINOCO MD 466.0 Acute Bronchitis 02/07/2011 GEN BRAVO APRN 627.3 Postmenopausal Atrophic Vaginitis 02/07/2011 627.3 Postmenopausal Atrophic Vaginitis 02/07/2011 627.3 Postmenopausal Atrophic Vaginitis 02/07/2011 GEN BRAVO APRN 627.3 Postmenopausal Atrophic Vaginitis 02/07/2011 627.3 Postmenopausal Atrophic Vaginitis 02/07/2011 627.3 Postmenopausal Atrophic Vaginitis 02/07/2011 EARNEST MILLER, GABI 627.3 Postmenopausal Atrophic Vaginitis 03/13/2011 GEN BRAVO APRN 268.9 Unspecified Vitamin D Deficiency 03/13/2011 GEN BRAVO APRN S 300.00 ANXIETY UNSPEC 03/13/2011 GEN BRAVO APRN S 789.30 Abdominal Or Pelvic Swelling Mass Or Lump Unspecified Site 03/13/2011 GEN BRAVO APRN S V12.1 Personal History Of Nutritional Deficiency 03/13/2011 GEN BRAVO APRN S V58.69 Long-term (current) Use Of Other Medications 03/13/2011 268.9 Unspecified Vitamin D Deficiency 03/13/2011 300.00 ANXIETY UNSPEC 03/13/2011 789.30 Abdominal Or Pelvic Swelling Mass Or Lump Unspecified Site 03/13/2011 V12.1 Personal History Of Nutritional Deficiency 03/13/2011 V58.69 Long-term ( current) Use Of Other Medications 03/13/2011 268.9 Unspecified Vitamin D Deficiency 03/13/2011 300.00 ANXIETY UNSPEC 03/13/2011 789.30 Abdominal Or Pelvic Swelling Mass Or Lump Unspecified Site 03/13/2011 V12.1 Personal History Of Nutritional Deficiency 03/13/2011 V58.69 Long-term ( current) Use Of Other Medications 03/13/2011 GEN BRAVO APRN S 268.9 Unspecified Vitamin D Deficiency 03/13/2011 GEN BRAVO APRN S 300.00 ANXIETY UNSPEC 03/13/2011 GEN BRAVO APRN S 789.30 Abdominal Or Pelvic Swelling Mass Or Lump Unspecified Site 03/13/2011 GEN BRAVO APRN S V12.1 Personal History Of Nutritional Deficiency 03/13/2011 GEN BRAVO APRN S V58.69 Long-term (current) Use Of Other Medications 03/13/2011 268.9 Unspecified Vitamin D Deficiency 03/13/2011 300.00 ANXIETY UNSPEC 03/13/2011 789.30 Abdominal Or Pelvic Swelling Mass Or Lump Unspecified Site 03/13/2011 V12.1 Personal History Of Nutritional Deficiency 03/13/2011 V58.69 Long-term ( current) Use Of Other Medications 03/13/2011 268.9 Unspecified Vitamin D Deficiency 03/13/2011 300.00 ANXIETY UNSPEC 03/13/2011 789.30 Abdominal Or Pelvic Swelling Mass Or Lump Unspecified Site 03/13/2011 V12.1 Personal History Of Nutritional Deficiency 03/13/2011 V58.69 Long-term ( current) Use Of Other Medications 03/13/2011 GABI TINOCO MD 268.9 Unspecified Vitamin D Deficiency 03/13/2011 GABI TINOCO MD 300.00 ANXIETY UNSPEC 03/13/2011 GABI TINOCO MD 789.30 Abdominal Or Pelvic Swelling Mass Or Lump Unspecified Site 03/13/2011 GABI TINOCO MD V12.1 Personal History Of Nutritional Deficiency 03/13/2011 GABI TINOCO MD V58.69 Long-term (current) Use Of Other Medications 03/15/2011 GEN BRAVO APRN S 790.29 Abnormal Glucose 03/15/2011 790.29 Abnormal Glucose 03/15/2011 790.29 Abnormal Glucose 03/15/2011 GEN BRAVO APRN 790.29 Abnormal Glucose 03/15/2011 790.29 Abnormal Glucose 03/15/2011 790.29 Abnormal Glucose 03/15/2011 GABI TINOCO MD 790.29 Abnormal Glucose 03/31/2011 GEN BRAVO APRN V04.81 Flu Dx (medicare Only) 03/31/2011 GEN BRAVO APRN V18.0 FAM HX DIABETES MELLITUS 03/31/2011 V04.81 Flu Dx ( medicare Only) 03/31/2011 V18.0 FAM HX DIABETES MELLITUS 03/31/2011 V04.81 Flu Dx ( medicare Only) 03/31/2011 V18.0 FAM HX DIABETES MELLITUS 03/31/2011 GEN BRAVO APRN S V04.81 Flu Dx (medicare Only) 03/31/2011 GEN BRAVO APRN S V18.0 FAM HX DIABETES MELLITUS 03/31/2011 V04.81 Flu Dx ( medicare Only) 03/31/2011 V18.0 FAM HX DIABETES MELLITUS 03/31/2011 V04.81 Flu Dx ( medicare Only) 03/31/2011 V18.0 FAM HX DIABETES MELLITUS 03/31/2011 GABI TINOCO MD V04.81 Flu Dx (medicare Only) 03/31/2011 GABI TINOCO MD V18.0 FAM HX DIABETES MELLITUS 05/26/2011 GEN BRAVO APRN 787.91 DIARRHEA 05/26/2011 787.91 DIARRHEA 05/26/2011 787.91 DIARRHEA 05/26/2011 GEN BRAVO APRN 787.91 DIARRHEA 05/26/2011 787.91 DIARRHEA 05/26/2011 787.91 DIARRHEA 05/26/2011 GABI TINOCO MD 787.91 DIARRHEA 07/20/2011 GEN BRAVO APRN 530.81 Gerd 07/20/2011 530.81 Gerd 07/20/2011 530.81 Gerd 07/20/2011 GEN BRAVO APRN 530.81 Gerd 07/20/2011 530.81 Gerd 07/20/2011 530.81 Gerd 07/20/2011 GABI TINOCO MD 530.81 Gerd 08/31/2011 Ot 530.3 ESOPHAGEAL STRICTURE 08/31/2011 Ot 530.81 ESOPHAGEAL REFLUX 08/31/2011 Ot 535.40 OTH SPECIFIED GASTRITIS,W/O MENTION OF H 09/15/2011 GEN BRAVO APRN 535.50 Gastritis Unspec 09/15/2011 GEN BRAVO APRN V65.42 COUNSELING - SMOKING CESSATION 09/15/2011 535.50 Gastritis Unspec 09/15/2011 V65.42 COUNSELING - SMOKING CESSATION 09/15/2011 535.50 Gastritis Unspec 09/15/2011 V65.42 COUNSELING - SMOKING CESSATION 09/15/2011 GEN BRAVO APRN 535.50 Gastritis Unspec 09/15/2011 GEN BRAVO APRN V65.42 COUNSELING - SMOKING CESSATION 09/15/2011 535.50 Gastritis Unspec 09/15/2011 V65.42 COUNSELING - SMOKING CESSATION 09/15/2011 535.50 Gastritis Unspec 09/15/2011 V65.42 COUNSELING - SMOKING CESSATION 09/15/2011 GABI TINOCO MD 535.50 Gastritis Unspec 09/15/2011 GABI TINOCO MD V65.42 COUNSELING - SMOKING CESSATION 04/11/2012 [employer]LLY [employer], GEN S 724.1 PAIN IN THORACIC SPINE 04/11/2012 724.1 PAIN IN THORACIC SPINE 04/11/2012 724.1 PAIN IN THORACIC SPINE 04/11/2012 GEN BRAVO APRN 724.1 PAIN IN THORACIC SPINE 04/11/2012 724.1 PAIN IN THORACIC SPINE 04/11/2012 724.1 PAIN IN THORACIC SPINE 04/11/2012 GABI TINOCO MD 724.1 PAIN IN THORACIC SPINE 08/05/2012 487.1 INFLUENZA 08/05/2012 487.1 INFLUENZA 08/05/2012 GEN BRAVO APRN 487.1 INFLUENZA 08/05/2012 487.1 INFLUENZA 08/05/2012 487.1 INFLUENZA 08/05/2012 GABI TINOCO MD 487.1 INFLUENZA 10/25/2012 GEN BRAVO APRN S 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 10/25/2012 GEN BRAVO APRN S 535.50 UNSPECIFIED GASTRITIS AND GASTRODUODENITIS (WITHOUT HEMORRHAGE) 10/25/2012 GEN BRAVO APRN S 719.46 PAIN- KNEE 10/25/2012 GEN BRAVO APRN S V76.12 MAMMOGRAM SCREENING 10/25/2012 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 10/25/2012 535.50 UNSPECIFIED GASTRITIS AND GASTRODUODENITIS (WITHOUT HEMORRHAGE) 10/25/2012 719.46 PAIN- KNEE 10/25/2012 V76.12 MAMMOGRAM SCREENING 10/25/2012 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 10/25/2012 535.50 UNSPECIFIED GASTRITIS AND GASTRODUODENITIS (WITHOUT HEMORRHAGE) 10/25/2012 719.46 PAIN- KNEE 10/25/2012 V76.12 MAMMOGRAM SCREENING 10/25/2012 GABI TINOCO MD 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 10/25/2012 GABI TINOCO MD 535.50 UNSPECIFIED GASTRITIS AND GASTRODUODENITIS (WITHOUT HEMORRHAGE) 10/25/2012 GABI TINOCO MD 719.46 PAIN- KNEE 10/25/2012 GABI TINOCO MD V76.12 MAMMOGRAM SCREENING 12/27/2012 724.2 LUMBAGO 12/27/2012 V70.0 EXAM - ROUTINE H&P 12/27/2012 V76.51 COLON CANCER SCREENING 12/27/2012 GABI TINOCO MD 724.2 LUMBAGO 12/27/2012 GABI TINOCO MD V70.0 EXAM - ROUTINE H&P 12/27/2012 GABI TINOCO MD V76.51 COLON CANCER SCREENING 01/19/2013 733.90 OSTEOPENIA 01/19/2013 GABI TINOCO MD 733.90 OSTEOPENIA 08/29/2013 JANN MILLER FAC, ALI FACP CCDS Ot 305.1 TOBACCO USE DISORDER 08/29/2013 JANN MILLER FAC, ALI FACP CCDS Ot 401.9 HYPERTENSION NOS 08/29/2013 JANN MILLER FACMary Jo, ALI FACP CCDS Ot 414.01 CORONARY ATHEROSCLEROSIS OF [place] CORON 08/29/2013 JANN MILLER FAC, ALI FACP CCDS Ot 414.4 CORONARY ATHEROSCLEROSIS DUE TO CALCIFIE 08/29/2013 JANN MILLER FACC, ALI FACP CCDS Ot 426.4 RT BUNDLE BRANCH BLOCK 08/29/2013 JANN MILLER FAC, ALI FACP CCDS Ot 786.59 CHEST PAIN NEC 08/29/2013 JANN FERMIN, ALI FACP CCDS Ot V58.69 OTH MED,LT,CURRENT USE 11/15/2013 BHAVESH TELLEZ MD Ot 272.0 PURE HYPERCHOLESTEROLEM 11/15/2013 BHAVESH TELLEZ MD Ot 305.1 TOBACCO USE DISORDER 11/15/2013 BHAVESH TELLEZ MD Ot 401.9 HYPERTENSION NOS 11/15/2013 BHAVESH TELLEZ MD Ot 455.0 INT HEMORRHOID W/O COMPL 11/15/2013 BHAVESH TELLEZ MD Ot 455.3 EXT HEMORRHOID W/O COMPL 11/15/2013 BHAVESH TELLEZ MD Ot 530.11 REFLUX ESOPHAGITIS 11/15/2013 BHAVESH TELLEZ MD Ot 535.50 UNSP GASTRITIS GASTRODUODENITIS W/O ME 11/15/2013 BHAVESH TELLEZ MD Ot 553.3 DIAPHRAGMATIC HERNIA 11/15/2013 BHAVESH TELLEZ MD Ot V12.72 PERSONAL HISTORY OF COLONIC POLYPS 08/08/2014 REMY MCELROY MD Ot 272.4 08/08/2014 REMY MCELROY MD Ot 305.1 08/08/2014 LILIBETH MILLER, REMY A Ot 401.9 08/08/2014 LILIBETH MILLER, REMY Segal Ot V72.62 11/22/2014 Ot V76.12 11/22/2014 Ot 793.89 11/22/2014 Ot 397.0 11/22/2014 Ot 401.9 11/22/2014 Ot 424.0 11/22/2014 Ot 426.4 11/22/2014 Ot 786.50 11/22/2014 Ot 401.9 11/22/2014 Ot 426.4 11/22/2014 Ot 786.50 11/22/2014 Ot 789.04 11/22/2014 Ot 610.0 11/22/2014 Ot 272.4 11/22/2014 Ot 401.9 11/22/2014 Ot 305.1 11/22/2014 Ot 610.0 11/22/2014 Ot 627.9 11/22/2014 Ot 272.4 11/22/2014 Ot 789.30 11/22/2014 Ot 790.29 11/22/2014 Ot 427.9 11/22/2014 Ot 780.4 11/22/2014 Ot 786.09 11/22/2014 Ot 786.50 11/22/2014 Ot V58.66 11/22/2014 Ot V58.69 11/22/2014 Ot 780.4 11/22/2014 Ot 786.09 11/22/2014 Ot 786.50 11/22/2014 Ot 610.0 11/22/2014 Ot 272.4 11/22/2014 Ot 793.80 11/22/2014 Ot 272.4 11/22/2014 Ot 401.9 11/22/2014 Ot 416.8 11/22/2014 Ot 428.30 11/22/2014 Ot 272.4 11/22/2014 Ot V76.12 11/22/2014 GEN BRAVO Ot 401.9 11/22/2014 GEN BRAVO Ot 724.2 11/22/2014 GEN BRAVO Ot V70.0 11/22/2014 GEN BRAVO Ot V76.51 11/22/2014 MARILEE MILLER, JAVON Williamson Ot 272.4 11/22/2014 GEOFF MILLER, BHAVESH Ot V72.84 11/22/2014 LYNSEY [employer]OTICS TECHNICIAN Ot V76.12 11/22/2014 LYNSEY HAND ORTHOTICS TECHNICIAN Ot 793.80 11/22/2014 LILIBETH MILLER, REMY A Ot 401.9 11/22/2014 LILIBETH MILLER, REMY A Ot 790.29 11/22/2014 LILIBETH MILLER, REMY A Ot V72.62 11/22/2014 LILIBETH MILLER, REMY A Ot 272.4 11/22/2014 LILIBETH MILLER, REMY A Ot 305.1 11/22/2014 LILIBETH MILLER, REMY A Ot 401.9 11/22/2014 LILIBETH MILLER, REMY A Ot V72.62 11/22/2014 LILIBETH MILLER, REMY A Ot 272.4 11/22/2014 LILIBETH MILLER, REMY A Ot 305.1 11/22/2014 LILIBETH MILLER, REMY A Ot 401.9 11/22/2014 LILIBETH MILLER, REMY A Ot V82.9 11/30/2014 LILIBETH MILLER, REMY A Ot 272.4 11/30/2014 LILIBETH MILLER, REMY A Ot 305.1 11/30/2014 LILIBETH MILLER, REMY A Ot 401.9 11/30/2014 LILIBETH MILLER, REMY A Ot V82.9 12/29/2014 LYNSEY HAND ORTHOTICS TECHNICIAN Ot 793.11 01/09/2015 Ot V76.12 01/09/2015 Ot 793.89 01/09/2015 Ot 397.0 01/09/2015 Ot 401.9 01/09/2015 Ot 424.0 01/09/2015 Ot 426.4 01/09/2015 Ot 786.50 01/09/2015 Ot 401.9 01/09/2015 Ot 426.4 01/09/2015 Ot 786.50 01/09/2015 Ot 789.04 01/09/2015 Ot 610.0 01/09/2015 Ot 272.4 01/09/2015 Ot 401.9 01/09/2015 Ot 305.1 01/09/2015 Ot 610.0 01/09/2015 Ot 627.9 01/09/2015 Ot 272.4 01/09/2015 Ot 789.30 01/09/2015 Ot 790.29 01/09/2015 Ot 427.9 01/09/2015 Ot 780.4 01/09/2015 Ot 786.09 01/09/2015 Ot 786.50 01/09/2015 Ot V58.66 01/09/2015 Ot V58.69 01/09/2015 Ot 780.4 01/09/2015 Ot 786.09 01/09/2015 Ot 786.50 01/09/2015 Ot 610.0 01/09/2015 Ot 272.4 01/09/2015 Ot 793.80 01/09/2015 Ot 272.4 01/09/2015 Ot 401.9 01/09/2015 Ot 416.8 01/09/2015 Ot 428.30 01/09/2015 Ot 272.4 01/09/2015 Ot V76.12 01/09/2015 GEN BRAVO ORTHOTICS TECHNICIAN Ot 401.9 01/09/2015 GEN BRAVO ORTHOTICS TECHNICIAN Ot 724.2 01/09/2015 GEN BRAVO ORTHOTICS TECHNICIAN Ot V70.0 01/09/2015 GEN BRAVO ORTHOTICS TECHNICIAN Ot V76.51 01/09/2015 MARILEE MILLER, JAVON Williamson Ot 272.4 01/09/2015 GEOFF MILLER, BHAVESH Ot V72.84 01/09/2015 LYNSEY HAND ORTHOTICS TECHNICIAN Ot V76.12 01/09/2015 LYNSEY HAND ORTHOTICS TECHNICIAN Ot 793.80 01/09/2015 LILIBETH MILLER, REMY A Ot 401.9 01/09/2015 LILIBETH MILLER, REMY A Ot 790.29 01/09/2015 LILIBETH MILLER, REMY A Ot V72.62 01/09/2015 LILIBETH MILLER, REMY A Ot 272.4 01/09/2015 LILIBETH MILLER, REMY A Ot 305.1 01/09/2015 LILIBETH MILLER, REMY A Ot 401.9 01/09/2015 LILIBETH MILLER, ERMY A Ot V72.62 01/09/2015 LILIBETH MILLER, REMY A Ot 272.4 01/09/2015 LILIBETH MILLER, REMY A Ot 305.1 01/09/2015 LILIBETH MILLER, REMY A Ot 401.9 01/09/2015 LILIBETH MILLER, REMY A Ot V82.9 01/09/2015 LYNSEY HAND ORTHOTICS TECHNICIAN Ot 793.11 01/28/2015 LYNSEY HAND Ot V76.12 02/04/2015 Ot 611.8 02/04/2015 Ot V76.12 02/04/2015 Ot 780.4 02/04/2015 Ot V76.12 02/04/2015 Ot 401.9 02/04/2015 Ot 721.0 02/04/2015 Ot 784.0 02/04/2015 Ot V76.12 02/04/2015 Ot 401.1 02/04/2015 Ot 789.00 02/04/2015 Ot 272.4 02/04/2015 Ot 401.9 02/04/2015 Ot 272.4 02/04/2015 Ot 241.0 02/04/2015 Ot 401.9 02/04/2015 Ot 780.79 02/04/2015 Ot 787.20 02/04/2015 Ot 241.0 02/04/2015 Ot 272.4 02/04/2015 Ot V76.12 02/04/2015 Ot 793.89 02/04/2015 Ot 272.4 02/04/2015 Ot 397.0 02/04/2015 Ot 401.9 02/04/2015 Ot 424.0 02/04/2015 Ot 426.4 02/04/2015 Ot 786.50 02/04/2015 Ot 401.9 02/04/2015 Ot 426.4 02/04/2015 Ot 786.50 02/04/2015 Ot 789.04 02/04/2015 Ot 610.0 02/04/2015 Ot 272.4 02/04/2015 Ot 401.9 02/04/2015 Ot 305.1 02/04/2015 Ot 610.0 02/04/2015 Ot 627.9 02/04/2015 Ot 272.4 02/04/2015 Ot 789.30 02/04/2015 Ot 790.29 02/04/2015 Ot 427.9 02/04/2015 Ot 780.4 02/04/2015 Ot 786.09 02/04/2015 Ot 786.50 02/04/2015 Ot V58.66 02/04/2015 Ot V58.69 02/04/2015 Ot 780.4 02/04/2015 Ot 786.09 02/04/2015 Ot 786.50 02/04/2015 Ot 610.0 02/04/2015 Ot 272.4 02/04/2015 Ot 793.80 02/04/2015 Ot 272.4 02/04/2015 Ot 401.9 02/04/2015 Ot 416.8 02/04/2015 Ot 428.30 02/04/2015 Ot 272.4 02/04/2015 Ot V76.12 02/04/2015 SHELLY GEN ORTHOTICS TECHNICIAN Ot 401.9 02/04/2015 GEN BRAVO ORTHOTICS TECHNICIAN Ot 724.2 02/04/2015 GEN BRAVO ORTHOTICS TECHNICIAN Ot V70.0 02/04/2015 GEN BRAVO ORTHOTICS TECHNICIAN Ot V76.51 02/04/2015 MARILEE MILLER, JAVON Williamson Ot 272.4 02/04/2015 GEOFF MILLER, BHAVESH Ot V72.84 02/04/2015 LYNSEY HAND ORTHOTICS TECHNICIAN Ot V76.12 02/04/2015 LYNSEY HAND ORTHOTICS TECHNICIAN Ot 793.80 02/04/2015 LILIBETH MILLER, REMY A Ot 401.9 02/04/2015 LILIBETH MILLER, REMY A Ot 790.29 02/04/2015 LILIBETH MILLER, REMY A Ot V72.62 02/04/2015 LILIBETH MILLER, REMY A Ot 272.4 02/04/2015 LILIBETH MILLER, REMY A Ot 305.1 02/04/2015 LILIBETH MILLER, REMY A Ot 401.9 02/04/2015 LILIBETH MILLER, REMY A Ot V72.62 02/04/2015 LILIBETH MILLER, REMY A Ot 272.4 02/04/2015 LILIBETH MILLER, REMY A Ot 305.1 02/04/2015 LILIBETH MILLER, REMY A Ot 401.9 02/04/2015 LILIBETH MILLER, REMY A Ot V82.9 02/04/2015 LYNSEY HAND ORTHOTICS TECHNICIAN Ot 793.11 02/04/2015 LYNSEY HAND ORTHOTICS TECHNICIAN Ot V76.12 03/15/2015 LILIBETH MILLER, REMY A Ot 305.1 03/15/2015 LILIBETH MILLER, REMY A Ot 401.9 03/15/2015 LILIBETH MILLER, REMY A Ot 790.29 03/20/2015 LYNSEY HAND ORTHOTICS TECHNICIAN Ot 793.11 06/03/2015 LYNSEY HAND ORTHOTICS TECHNICIAN Ot R91.1 06/05/2015 MAYA MORA APRN Ot F17.200 06/19/2015 LYNSEY HAND ORTHOTICS TECHNICIAN Ot R91.1 08/14/2015 Ot 789.04 08/14/2015 Ot 610.0 08/14/2015 Ot 272.4 08/14/2015 Ot 401.9 08/14/2015 Ot 305.1 08/14/2015 Ot 610.0 08/14/2015 Ot 627.9 08/14/2015 Ot 272.4 08/14/2015 Ot 789.30 08/14/2015 Ot 790.29 08/14/2015 Ot 427.9 08/14/2015 Ot 780.4 08/14/2015 Ot 786.09 08/14/2015 Ot 786.50 08/14/2015 Ot V58.66 08/14/2015 Ot V58.69 08/14/2015 Ot 780.4 08/14/2015 Ot 786.09 08/14/2015 Ot 786.50 08/14/2015 Ot 610.0 08/14/2015 Ot 272.4 08/14/2015 Ot 793.80 08/14/2015 Ot 272.4 08/14/2015 Ot 401.9 08/14/2015 Ot 416.8 08/14/2015 Ot 428.30 08/14/2015 Ot 272.4 08/14/2015 Ot V76.12 08/14/2015 GEN BRAVO ORTHOTICS TECHNICIAN Ot 401.9 08/14/2015 GEN BRAVO ORTHOTICS TECHNICIAN Ot 724.2 08/14/2015 GEN BRAVO ORTHOTICS TECHNICIAN Ot V70.0 08/14/2015 GEN BRAVO ORTHOTICS TECHNICIAN Ot V76.51 08/14/2015 MARILEE MILLER, JAVON Williamson Ot 272.4 08/14/2015 GEOFF MILLER, BHAVESH Ot V72.84 08/14/2015 LYNSEY HAND ORTHOTICS TECHNICIAN Ot V76.12 08/14/2015 LYNSEY HAND ORTHOTICS TECHNICIAN Ot 793.80 08/14/2015 LILIBETH MILLER, REMY Segal Ot 401.9 08/14/2015 LILIBETH MILLER, REMY Segal Ot 790.29 08/14/2015 LILIBETH MILLER, REYM Segal Ot V72.62 08/14/2015 LILIBETH MILLER, REMY A Ot 272.4 08/14/2015 LILIBETH MILLER, REMY A Ot 305.1 08/14/2015 LILIBETH MILLER, REMY A Ot 401.9 08/14/2015 LILIBETH MILLER, REMY A Ot V72.62 08/14/2015 LILIBETH MILLER, REMY A Ot 272.4 08/14/2015 LILIBETH MILLER, REMY A Ot 305.1 08/14/2015 LILIBETH MILLER, REMY A Ot 401.9 08/14/2015 LILIBETH MILLER, REMY A Ot V82.9 08/14/2015 LYNSEY HAND ORTHOTICS TECHNICIAN Ot 793.11 08/14/2015 LYNSEY HAND ORTHOTICS TECHNICIAN Ot V76.12 08/14/2015 LILIBETH MILLER, REMY A Ot 305.1 08/14/2015 LILIBETH MILLER, RMEY A Ot 401.9 08/14/2015 LILIBETH MILLER, REMY A Ot 790.29 08/14/2015 LYNSEY HAND ORTHOTICS TECHNICIAN Ot 793.11 08/14/2015 MAYA MORA APRN Ot F17.200 08/14/2015 LYNSEY HAND ORTHOTICS TECHNICIAN Ot R91.1 09/02/2015 LYNSEY HAND ORTHOTICS TECHNICIAN Ot R91.1 12/19/2015 TIFFANI DUNLAP MD Ot C34.91 MALIGNANT NEOPLASM OF UNSP PART OF RIGHT 12/19/2015 TIFFANI DUNLAP MD Ot F17.210 NICOTINE DEPENDENCE, CIGARETTES, UNCOMPL 12/19/2015 TIFFANI DUNLAP MD Ot I10 ESSENTIAL (PRIMARY) HYPERTENSION 12/19/2015 TIFFANI DUNLAP MD Ot J44.9 CHRONIC OBSTRUCTIVE PULMONARY DISEASE, U 12/20/2015 OBB MOSELEY DO Ot 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 NEOPLASM OF UPPER LOBE, LEFT B 12/20/2015 BOB MOSELEY DO Ot R91.1 SOLITARY PULMONARY NODULE 12/20/2015 BOB MOSELEY DO Ot Z72.0 TOBACCO USE 12/20/2015 MANUEL HENDRIX APRN Ot M54.5 LOW BACK PAIN 12/23/2015 MANUEL HENDRIX APRN Ot M54.5 LOW BACK PAIN 12/23/2015 MANUEL HENDRIX APRN Ot M54.5 LOW BACK PAIN 01/08/2016 XUN MD, THOMPSON-SIMON Ot C34.91 MALIGNANT NEOPLASM OF UNSP PART OF RIGHT 01/08/2016 TIFFANI DUNLAP MD Ot F17.210 NICOTINE DEPENDENCE, CIGARETTES, UNCOMPL 01/08/2016 TIFFANI DUNLAP MD Ot I10 ESSENTIAL (PRIMARY) HYPERTENSION 01/08/2016 TIFFANI DUNLAP MD Ot J44.9 CHRONIC OBSTRUCTIVE PULMONARY DISEASE, U 01/10/2016 BOB MOSELEY DO Ot 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 NEOPLASM OF UPPER LOBE, LEFT B 01/10/2016 BOB MOSELEY DO Ot R91.1 SOLITARY PULMONARY NODULE 01/10/2016 BOB MOSELEY DO Ot Z72.0 TOBACCO USE 2016 Ot Z12.31 ENCNTR SCREEN MAMMOGRAM FOR MALIGNANT NE 01/16/2016 Ot Z12.31 ENCNTR SCREEN MAMMOGRAM FOR MALIGNANT NE 01/22/2016 MANUEL HENDRIX APRN Ot M54.5 LOW BACK PAIN 01/23/2016 TIFFANI DUNLAP MD Ot C34.91 MALIGNANT NEOPLASM OF UNSP PART OF RIGHT 01/23/2016 TIFFANI DUNLAP MD Ot F17.210 NICOTINE DEPENDENCE, CIGARETTES, UNCOMPL 01/23/2016 TIFFANI DUNLAP MD Ot I10 ESSENTIAL (PRIMARY) HYPERTENSION 01/23/2016 TIFFANI DUNLAP MD, Ot J44.9 CHRONIC OBSTRUCTIVE PULMONARY DISEASE, U 01/24/2016 MAYA OMRA APRN Ot 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 NEOPLASM OF UPPER LOBE, UNSP B 01/24/2016 MAYA MORA APRN Ot R91.1 SOLITARY PULMONARY NODULE 02/05/2016 Ot Z12.31 ENCNTR SCREEN MAMMOGRAM FOR MALIGNANT NE 02/26/2016 TIFFANI DUNLAP MD Ot C34.91 MALIGNANT NEOPLASM OF UNSP PART OF RIGHT 02/26/2016 TIFFANI DUNLAP MD Ot F17.210 NICOTINE DEPENDENCE, CIGARETTES, UNCOMPL 02/26/2016 TIFFANI DUNLAP MD Ot I10 ESSENTIAL (PRIMARY) HYPERTENSION 02/26/2016 TIFFANI DUNLAP MD Ot J44.9 CHRONIC OBSTRUCTIVE PULMONARY DISEASE, U 02/26/2016 TIFFANI DUNLAP MD Ot C34.91 MALIGNANT NEOPLASM OF UNSP PART OF RIGHT 02/26/2016 TIFFANI DUNLAP MD Ot F17.210 NICOTINE DEPENDENCE, CIGARETTES, UNCOMPL 02/26/2016 TIFFANI DUNLAP MD Ot I10 ESSENTIAL (PRIMARY) HYPERTENSION 02/26/2016 TIFFANI DUNLAP MD Ot J44.9 CHRONIC OBSTRUCTIVE PULMONARY DISEASE, U 02/26/2016 MAUNEL HENDRIX APRN Ot M54.5 LOW BACK PAIN 02/26/2016 BOB MOSELEY DO Ot 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 NEOPLASM OF UPPER LOBE, LEFT B 02/26/2016 BOB MOSELEY DO Ot R91.1 SOLITARY PULMONARY NODULE 02/26/2016 BOB MOSELEY DO Ot Z72.0 TOBACCO USE 02/26/2016 MAYA MORA APRN Ot 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 NEOPLASM OF UPPER LOBE, UNSP B 02/26/2016 MAYA MORA APRN Ot R91.1 SOLITARY PULMONARY NODULE 02/26/2016 Ot Z12.31 ENCNTR SCREEN MAMMOGRAM FOR MALIGNANT NE 02/26/2016 TIFFANI DUNLAP MD Ot C34.91 MALIGNANT NEOPLASM OF UNSP PART OF RIGHT 02/26/2016 TIFFANI DUNLAP MD Ot F17.210 NICOTINE DEPENDENCE, CIGARETTES, UNCOMPL 02/26/2016 TIFFANI DUNLAP MD Ot I10 ESSENTIAL (PRIMARY) HYPERTENSION 02/26/2016 TIFFANI DUNLAP MD Ot J44.9 CHRONIC OBSTRUCTIVE PULMONARY DISEASE, U 02/26/2016 TIFFANI DUNLAP MD Ot C34.91 MALIGNANT NEOPLASM OF UNSP PART OF RIGHT 02/26/2016 TIFFANI DUNLAP MD Ot F17.210 NICOTINE DEPENDENCE, CIGARETTES, UNCOMPL 02/26/2016 TIFFANI DUNLAP MD Ot I10 ESSENTIAL (PRIMARY) HYPERTENSION 02/26/2016 TIFFANI DUNLAP MD Ot J44.9 CHRONIC OBSTRUCTIVE PULMONARY DISEASE, U 02/26/2016 MANUEL HENDRIX APRN Ot M54.5 LOW BACK PAIN 02/26/2016 BOB MOSELEY DO Ot 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 NEOPLASM OF UPPER LOBE, LEFT B 02/26/2016 BOB MOSELEY DO Ot R91.1 SOLITARY PULMONARY NODULE 02/26/2016 BOB MOSELEY DO Ot Z72.0 TOBACCO USE 02/26/2016 MAYA MORA APRN Ot 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 NEOPLASM OF UPPER LOBE, UNSP B 02/26/2016 MAYA MORA APRN Ot R91.1 SOLITARY PULMONARY NODULE 02/26/2016 Ot Z12.31 ENCNTR SCREEN MAMMOGRAM FOR MALIGNANT NE 02/26/2016 TIFFANI DUNLAP MD Ot C34.91 MALIGNANT NEOPLASM OF UNSP PART OF RIGHT 02/26/2016 TIFFANI DUNLAP MD Ot F17.210 NICOTINE DEPENDENCE, CIGARETTES, UNCOMPL 02/26/2016 TIFFANI DUNLAP MD Ot I10 ESSENTIAL (PRIMARY) HYPERTENSION 02/26/2016 TIFFANI DUNLAP MD Ot J44.9 CHRONIC OBSTRUCTIVE PULMONARY DISEASE, U 02/26/2016 MANUEL HENDRIX APRN Ot M54.5 LOW BACK PAIN 02/26/2016 BOB MOSELEY DO Ot 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 NEOPLASM OF UPPER LOBE, LEFT B 02/26/2016 BOB MOSELEY DO Ot R91.1 SOLITARY PULMONARY NODULE 02/26/2016 BOB MOSELEY DO Ot Z72.0 TOBACCO USE 02/26/2016 MAYA MORA APRN Ot 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 NEOPLASM OF UPPER LOBE, UNSP B 02/26/2016 MAYA MORA APRN Ot R91.1 SOLITARY PULMONARY NODULE 02/26/2016 Ot Z12.31 ENCNTR SCREEN MAMMOGRAM FOR MALIGNANT NE 03/08/2016 TIFFANI DUNLAP MD Ot C34.91 MALIGNANT NEOPLASM OF UNSP PART OF RIGHT 03/08/2016 TIFFANI DUNLAP MD Ot F17.210 NICOTINE DEPENDENCE, CIGARETTES, UNCOMPL 03/08/2016 TIFFANI DUNLAP MD Ot I10 ESSENTIAL (PRIMARY) HYPERTENSION 03/08/2016 TIFFANI DUNLAP MD Ot J44.9 CHRONIC OBSTRUCTIVE PULMONARY DISEASE, U 03/14/2016 TIFFANI DUNLAP MD Ot C34.91 MALIGNANT NEOPLASM OF UNSP PART OF RIGHT 03/14/2016 TIFFANI DUNLAP MD Ot F17.210 NICOTINE DEPENDENCE, CIGARETTES, UNCOMPL 03/14/2016 TIFFANI DUNLAP MD Ot I10 ESSENTIAL (PRIMARY) HYPERTENSION 03/14/2016 TIFFANI DUNLAP MD Ot J44.9 CHRONIC OBSTRUCTIVE PULMONARY DISEASE, U 03/16/2016 MANUEL HENDRIX APRN Ot M54.5 LOW BACK PAIN 03/16/2016 BOB MOSELEY DO Ot 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 NEOPLASM OF UPPER LOBE, LEFT B 03/16/2016 LORELEI BOB TARANGO Ot R91.1 SOLITARY PULMONARY NODULE 03/16/2016 LORELEI BOB TARANGO Ot Z72.0 TOBACCO USE 03/16/2016 MAYA MORA APRN Ot 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 NEOPLASM OF UPPER LOBE, UNSP B 03/16/2016 MAYA MORA APRN Ot R91.1 SOLITARY PULMONARY NODULE 03/16/2016 Ot Z12.31 ENCNTR SCREEN MAMMOGRAM FOR MALIGNANT NE 03/16/2016 TIFFANI DUNLAP MD Ot C34.91 MALIGNANT NEOPLASM OF UNSP PART OF RIGHT 03/16/2016 TIFFANI DUNLAP MD Ot F17.210 NICOTINE DEPENDENCE, CIGARETTES, UNCOMPL 03/16/2016 TIFFANI DUNLAP MD Ot I10 ESSENTIAL (PRIMARY) HYPERTENSION 03/16/2016 TIFFANI DUNLAP MD Ot J44.9 CHRONIC OBSTRUCTIVE PULMONARY DISEASE, U 04/01/2016 TIFFANI DUNLAP MD Ot C34.91 MALIGNANT NEOPLASM OF UNSP PART OF RIGHT 04/01/2016 TIFFANI DUNLAP MD Ot F17.210 NICOTINE DEPENDENCE, CIGARETTES, UNCOMPL 04/01/2016 TIFFANI DUNLAP MD Ot I10 ESSENTIAL (PRIMARY) HYPERTENSION 04/01/2016 TIFFANI DUNLAP MD, Ot J44.9 CHRONIC OBSTRUCTIVE PULMONARY DISEASE, U 04/10/2016 TIFFANI DULNAP MD Ot 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 NEOPLASM OF UPPER LOBE, LEFT B 04/10/2016 TIFFANI DUNLAP MD Ot R59.0 LOCALIZED ENLARGED LYMPH NODES 04/23/2016 TIFFANI DUNLAP MD Ot C34.91 MALIGNANT NEOPLASM OF UNSP PART OF RIGHT 04/23/2016 TIFFANI DUNLAP MD Ot F17.210 NICOTINE DEPENDENCE, CIGARETTES, UNCOMPL 04/23/2016 TIFFANI DUNLAP MD Ot I10 ESSENTIAL (PRIMARY) HYPERTENSION 04/23/2016 TIFFANI DUNLAP MD Ot J44.9 CHRONIC OBSTRUCTIVE PULMONARY DISEASE, U 05/08/2016 TIFFANI DUNLAP MD Ot C34.91 MALIGNANT NEOPLASM OF UNSP PART OF RIGHT 05/08/2016 TIFFANI DUNLAP MD Ot F17.210 NICOTINE DEPENDENCE, CIGARETTES, UNCOMPL 05/08/2016 XUN MD, THOMPSON-SIMON Ot I10 ESSENTIAL (PRIMARY) HYPERTENSION 05/08/2016 GERMÁN MILLER, TIFFANI Ot J44.9 CHRONIC OBSTRUCTIVE PULMONARY DISEASE, U 05/21/2016 Ot 272.4 HYPERLIPIDEMIA NEC/NOS 05/21/2016 Ot 789.30 ABDOMINAL/ PELVIC SWELLING,MASS/LUMP UNSP 05/21/2016 Ot 790.29 OTHER ABNORMAL GLUCOSE 05/21/2016 Ot 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 05/21/2016 Ot 780.4 DIZZINESS AND GIDDINESS 05/21/2016 Ot 786.09 RESPIRATORY ABNORM NEC 05/21/2016 Ot 786.50 CHEST PAIN NOS 05/21/2016 Ot V58.66 LONG-TERM ( CURRENT) USE OF ASPIRIN 05/21/2016 Ot V58.69 OTH MED,LT, CURRENT USE 05/21/2016 Ot 780.4 DIZZINESS AND GIDDINESS 05/21/2016 Ot 786.09 RESPIRATORY ABNORM NEC 05/21/2016 Ot 786.50 CHEST PAIN NOS 05/21/2016 Ot 610.0 SOLITARY CYST OF BREAST 05/21/2016 Ot 272.4 HYPERLIPIDEMIA NEC/NOS 05/21/2016 Ot 793.80 UNSPEC ABNORMAL MAMMOGRAM 05/21/2016 Ot 272.4 HYPERLIPIDEMIA NEC/NOS 05/21/2016 Ot 401.9 HYPERTENSION NOS 05/21/2016 Ot 416.8 CHR PULMON HEART DIS NEC 05/21/2016 Ot 428.30 UNSPEC DIASTOLIC HRT FAILURE 05/21/2016 Ot 272.4 HYPERLIPIDEMIA NEC/NOS 05/21/2016 Ot V76.12 OTH SCREEN MAMMO-MALIGN NEOPLASM OF JOSIAH 05/21/2016 GEN BRAVO ORTHOTICS TECHNICIAN Ot 401.9 HYPERTENSION NOS 05/21/2016 GEN BRAVO ORTHOTICS TECHNICIAN Ot 724.2 LUMBAGO 05/21/2016 GEN BRAVO ORTHOTICS TECHNICIAN Ot V70.0 ROUTINE MEDICAL EXAM 05/21/2016 GEN BRAVO ORTHOTICS TECHNICIAN Ot V76.51 SCREEN MAL NEOP-COLON 05/21/2016 MARILEE MILLER, JAVON Williamson Ot 272.4 HYPERLIPIDEMIA NEC/NOS 05/21/2016 GEOFF MILLER, BHAVESH Ot V72.84 EXAM PRE-OPERATIVE NOS 05/21/2016 LYNSEY HAND ORTHOTICS TECHNICIAN Ot V76.12 OTH SCREEN MAMMO-MALIGN NEOPLASM OF JOSIAH 05/21/2016 LYNSEY HAND ORTHOTICS TECHNICIAN Ot 793.80 UNSPEC ABNORMAL MAMMOGRAM 05/21/2016 LILIBETH MILLER, REMY A Ot 401.9 HYPERTENSION NOS 05/21/2016 LILIBETH MILLER, REMY A Ot 790.29 OTHER ABNORMAL GLUCOSE 05/21/2016 LILIBETH MILLER, REMY A Ot V72.62 LAB EXAM ORDERED PART OF A ROUTINE GE 05/21/2016 LILIBETH MILLER, REMY A Ot 272.4 HYPERLIPIDEMIA NEC/NOS 05/21/2016 LILIBETH MILLER, REMY A Ot 305.1 TOBACCO USE DISORDER 05/21/2016 LILIBETH MILLER, REMY A Ot 401.9 HYPERTENSION NOS 05/21/2016 LILIBETH MILLER, REMY A Ot V72.62 LAB EXAM ORDERED PART OF A ROUTINE GE 05/21/2016 REMY MCELROY MD A Ot 272.4 HYPERLIPIDEMIA NEC/NOS 05/21/2016 LILIBETH MILLER, REMY A Ot 305.1 TOBACCO USE DISORDER 05/21/2016 LILIBETH MILLER, REMY A Ot 401.9 HYPERTENSION NOS 05/21/2016 LILIBETH MILLER, REMY A Ot V82.9 SCREEN FOR CONDITION NOS 05/21/2016 LYNSEY HAND ORTHOTICS TECHNICIAN Ot 793.11 SOLITARY PULMONARY NODULE 05/21/2016 LYNSEY HAND ORTHOTICS TECHNICIAN Ot V76.12 OTH SCREEN MAMMO-MALIGN NEOPLASM OF JOSIAH 05/21/2016 LILIBETH MILLER, REMY A Ot 305.1 TOBACCO USE DISORDER 05/21/2016 LILIBETH MILLER, REMY A Ot 401.9 HYPERTENSION NOS 05/21/2016 LILIBETH MILLER, REMY A Ot 790.29 OTHER ABNORMAL GLUCOSE 05/21/2016 LYNSEY HAND ORTHOTICS TECHNICIAN Ot 793.11 SOLITARY PULMONARY NODULE 05/21/2016 MAYA MORA DETAILER PHARMACEUTICALS Ot F17.200 NICOTINE DEPENDENCE, UNSPECIFIED, UNCOMP 05/21/2016 LYNSEY HAND ORTHOTICS TECHNICIAN Ot R91.1 SOLITARY PULMONARY NODULE 05/21/2016 LYNSEY HAND ORTHOTICS TECHNICIAN Ot R91.1 SOLITARY PULMONARY NODULE 05/21/2016 MANUEL HENDRIX DETAILER PHARMACEUTICALS Ot M54.5 LOW BACK PAIN 05/21/2016 BOB MOSELEY DO Ot 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 NEOPLASM OF UPPER LOBE, LEFT B 05/21/2016 BOB MOSELEY DO Ot R91.1 SOLITARY PULMONARY NODULE 05/21/2016 LORELEI TARANGO BOB M Ot Z72.0 TOBACCO USE 05/21/2016 MAYA MORA APRN Ot 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 NEOPLASM OF UPPER LOBE, UNSP B 05/21/2016 MAYA MORA APRN Ot R91.1 SOLITARY PULMONARY NODULE 05/21/2016 Ot Z12.31 ENCNTR SCREEN MAMMOGRAM FOR MALIGNANT NE 05/21/2016 TIFFANI DUNLAP MD Ot 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 NEOPLASM OF UPPER LOBE, LEFT B 05/21/2016 TIFFANI DUNLAP MD Ot R59.0 LOCALIZED ENLARGED LYMPH NODES 05/21/2016 TIFFANI DUNLAP MD Ot C34.91 MALIGNANT NEOPLASM OF UNSP PART OF RIGHT 05/21/2016 TIFFANI DUNLAP MD Ot F17.210 NICOTINE DEPENDENCE, CIGARETTES, UNCOMPL 05/21/2016 TIFFANI DUNALP MD Ot I10 ESSENTIAL (PRIMARY) HYPERTENSION 05/21/2016 TIFFANI DUNLAP MD Ot J44.9 CHRONIC OBSTRUCTIVE PULMONARY DISEASE, U 05/21/2016 LYNSEY HAND Ot M85.89 OTH DISRD OF BONE DENSITY AND STRUCTURE, 05/21/2016 LYNSEY HAND Ot M85.89 OTH DISRD OF BONE DENSITY AND STRUCTURE, 05/26/2016 LYNSEY HAND Ot M85.89 OTH DISRD OF BONE DENSITY AND STRUCTURE, 05/27/2016 TIFFANI DUNLAP MD Ot C34.91 MALIGNANT NEOPLASM OF UNSP PART OF RIGHT 05/27/2016 TIFFANI DUNLAP MD Ot F17.210 NICOTINE DEPENDENCE, CIGARETTES, UNCOMPL 05/27/2016 TIFFANI DUNLAP MD Ot I10 ESSENTIAL (PRIMARY) HYPERTENSION 05/27/2016 TIFFANI DUNLAP MD Ot J44.9 CHRONIC OBSTRUCTIVE PULMONARY DISEASE, U 06/02/2016 Ot 272.4 HYPERLIPIDEMIA NEC/NOS 06/02/2016 Ot 789.30 ABDOMINAL/ PELVIC SWELLING,MASS/LUMP UNSP 06/02/2016 Ot 790.29 OTHER ABNORMAL GLUCOSE 06/02/2016 Ot 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 06/02/2016 Ot 780.4 DIZZINESS AND GIDDINESS 06/02/2016 Ot 786.09 RESPIRATORY ABNORM NEC 06/02/2016 Ot 786.50 CHEST PAIN NOS 06/02/2016 Ot V58.66 LONG-TERM ( CURRENT) USE OF ASPIRIN 06/02/2016 Ot V58.69 OTH MED,LT, CURRENT USE 06/02/2016 Ot 780.4 DIZZINESS AND GIDDINESS 06/02/2016 Ot 786.09 RESPIRATORY ABNORM NEC 06/02/2016 Ot 786.50 CHEST PAIN NOS 06/02/2016 Ot 610.0 SOLITARY CYST OF BREAST 06/02/2016 Ot 272.4 HYPERLIPIDEMIA NEC/NOS 06/02/2016 Ot 793.80 UNSPEC ABNORMAL MAMMOGRAM 06/02/2016 Ot 272.4 HYPERLIPIDEMIA NEC/NOS 06/02/2016 Ot 401.9 HYPERTENSION NOS 06/02/2016 Ot 416.8 CHR PULMON HEART DIS NEC 06/02/2016 Ot 428.30 UNSPEC DIASTOLIC HRT FAILURE 06/02/2016 Ot 272.4 HYPERLIPIDEMIA NEC/NOS 06/02/2016 Ot V76.12 OTH SCREEN MAMMO-MALIGN NEOPLASM OF JOSIAH 06/02/2016 GEN BRAVO ORTHOTICS TECHNICIAN Ot 401.9 HYPERTENSION NOS 06/02/2016 GEN BRAVO ORTHOTICS TECHNICIAN Ot 724.2 LUMBAGO 06/02/2016 GEN BRAVO ORTHOTICS TECHNICIAN Ot V70.0 ROUTINE MEDICAL EXAM 06/02/2016 GEN BRAVO ORTHOTICS TECHNICIAN Ot V76.51 SCREEN MAL NEOP-COLON 06/02/2016 MARILEE MILLER, JAVON Williamson Ot 272.4 HYPERLIPIDEMIA NEC/NOS 06/02/2016 BHAVESH TELLEZ MD Ot V72.84 EXAM PRE-OPERATIVE NOS 06/02/2016 LYNSEY HAND ORTHOTICS TECHNICIAN Ot V76.12 OTH SCREEN MAMMO-MALIGN NEOPLASM OF JOSIAH 06/02/2016 LYNSEY HAND ORTHOTICS TECHNICIAN Ot 793.80 UNSPEC ABNORMAL MAMMOGRAM 06/02/2016 REMY MCELROY MD Ot 401.9 HYPERTENSION NOS 06/02/2016 REMY MCELROY MD Ot 790.29 OTHER ABNORMAL GLUCOSE 06/02/2016 REMY MCELROY MD Ot V72.62 LAB EXAM ORDERED PART OF A ROUTINE GE 06/02/2016 REMY MCELROY MD Ot 272.4 HYPERLIPIDEMIA NEC/NOS 06/02/2016 REMY MCELROY MD Ot 305.1 TOBACCO USE DISORDER 06/02/2016 REMY MCELROY MD Ot 401.9 HYPERTENSION NOS 06/02/2016 REMY MCELROY MD Ot V72.62 LAB EXAM ORDERED PART OF A ROUTINE GE 06/02/2016 LILIBETH MILLER, REMY Segal Ot 272.4 HYPERLIPIDEMIA NEC/NOS 06/02/2016 LILIBETH MILLER, REMY Segal Ot 305.1 TOBACCO USE DISORDER 06/02/2016 REMY MCELROY MD Ot 401.9 HYPERTENSION NOS 06/02/2016 REMY MCELROY MD Ot V82.9 SCREEN FOR CONDITION NOS 06/02/2016 LYNSEY HAND ORTHOTICS TECHNICIAN Ot 793.11 SOLITARY PULMONARY NODULE 06/02/2016 LYNSEY HANDP Ot V76.12 OTH SCREEN MAMMO-MALIGN NEOPLASM OF JOSIAH 06/02/2016 REMY MCELROY MD Ot 305.1 TOBACCO USE DISORDER 06/02/2016 LILIBETH MILLER, REMY Segal Ot 401.9 HYPERTENSION NOS 06/02/2016 LILIBETH MILLER, REMY Segal Ot 790.29 OTHER ABNORMAL GLUCOSE 06/02/2016 LYNSEY HAND ORTHOTICS TECHNICIAN Ot 793.11 SOLITARY PULMONARY NODULE 06/02/2016 MAYA MORA APRN Ot F17.200 NICOTINE DEPENDENCE, UNSPECIFIED, UNCOMP 06/02/2016 LYNSEY HAND ORTHOTICS TECHNICIAN Ot R91.1 SOLITARY PULMONARY NODULE 06/02/2016 LYNSEY HAND ORTHOTICS TECHNICIAN Ot R91.1 SOLITARY PULMONARY NODULE 06/02/2016 MANUEL HENDRIX DETAILER PHARMACEUTICALS Ot M54.5 LOW BACK PAIN 06/02/2016 BOB MOSELEY DO Ot 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 NEOPLASM OF UPPER LOBE, LEFT B 06/02/2016 BOB MOSELEY DO Ot R91.1 SOLITARY PULMONARY NODULE 06/02/2016 BOB MOSELEY DO Ot Z72.0 TOBACCO USE 06/02/2016 MAYA MORA APRN Ot 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 NEOPLASM OF UPPER LOBE, UNSP B 06/02/2016 MAYA MORA APRN Ot R91.1 SOLITARY PULMONARY NODULE 06/02/2016 Ot Z12.31 ENCNTR SCREEN MAMMOGRAM FOR MALIGNANT NE 06/02/2016 GERMÁN MILLER, TIFFANI Ot 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 NEOPLASM OF UPPER LOBE, LEFT B 06/02/2016 TIFFANI DUNLAP MD Ot R59.0 LOCALIZED ENLARGED LYMPH NODES 06/02/2016 TIFFANI DUNLAP MD Ot C34.91 MALIGNANT NEOPLASM OF UNSP PART OF RIGHT 06/02/2016 TIFFANI DUNLAP MD Ot F17.210 NICOTINE DEPENDENCE, CIGARETTES, UNCOMPL 06/02/2016 TIFFANI DUNLAP MD Ot I10 ESSENTIAL (PRIMARY) HYPERTENSION 06/02/2016 TIFFANI DUNLAP MD Ot J44.9 CHRONIC OBSTRUCTIVE PULMONARY DISEASE, U 06/02/2016 LYNSEY HAND Ot M85.89 OTH DISRD OF BONE DENSITY AND STRUCTURE, 06/03/2016 JANN MILLER FACC, ALI FACP CCDS Ot E78.4 OTHER HYPERLIPIDEMIA 06/03/2016 JANN MILLER FACC, ALI FACP CCDS Ot I10 ESSENTIAL (PRIMARY) HYPERTENSION 06/03/2016 JANN MILLER FACC, ALI FACP CCDS Ot I25.10 ATHSCL HEART DISEASE OF [place] CORONARY 06/03/2016 JANN MILLER FACC, ALI FACP CCDS Ot I65.23 OCCLUSION AND STENOSIS OF BILATERAL [place] 06/03/2016 JANN MILLER FACC, ALI FACP CCDS Ot J43.8 OTHER EMPHYSEMA 06/03/2016 JANN MILLER FACC, ALI FACP CCDS Ot Z72.0 TOBACCO USE 06/08/2016 JANN MILLER FACC, ALI FACP CCDS Ot E78.4 OTHER HYPERLIPIDEMIA 06/08/2016 JANN MILLER FACC, ALI FACP CCDS Ot I10 ESSENTIAL (PRIMARY) HYPERTENSION 06/08/2016 JANN MILLER FACC, ALI FACP CCDS Ot I25.10 ATHSCL HEART DISEASE OF [place] CORONARY 06/08/2016 JANN MILLER FACC, ALI FACP CCDS Ot I65.23 OCCLUSION AND STENOSIS OF BILATERAL [place] 06/08/2016 JANN MILLER FACC, ALI FACP CCDS Ot J43.8 OTHER EMPHYSEMA 06/08/2016 JANN MILLER FACC, ALI FACP CCDS Ot Z72.0 TOBACCO USE 06/11/2016 LYNSEY HAND Ot M85.89 OTH DISRD OF BONE DENSITY AND STRUCTURE, 06/23/2016 TIFFANI DUNLAP MD Ot C34.91 MALIGNANT NEOPLASM OF UNSP PART OF RIGHT 06/23/2016 TIFFANI DUNLAP MD Ot F17.210 NICOTINE DEPENDENCE, CIGARETTES, UNCOMPL 06/23/2016 XUN MD, THOMPSON-SIMON Ot I10 ESSENTIAL (PRIMARY) HYPERTENSION 06/23/2016 TIFFANI DUNLAP MD Ot J44.9 CHRONIC OBSTRUCTIVE PULMONARY DISEASE, U 06/23/2016 JANN MILLER FACC, ALI FACP CCDS Ot E78.4 OTHER HYPERLIPIDEMIA 06/23/2016 JANN MILLER FACC, ALI FACP CCDS Ot I10 ESSENTIAL (PRIMARY) HYPERTENSION 06/23/2016 JANN MILLER FACC, ALI FACP CCDS Ot I25.10 ATHSCL HEART DISEASE OF [place] CORONARY 06/23/2016 JANN MILLER FACC, ALI FACP CCDS Ot I65.23 OCCLUSION AND STENOSIS OF BILATERAL [place] 06/23/2016 JANN MILLER FACC, ALI FACP CCDS Ot J43.8 OTHER EMPHYSEMA 06/23/2016 JANN MILLER FACC, ALI FACP CCDS Ot Z72.0 TOBACCO USE 06/29/2016 Ot 789.30 ABDOMINAL/ PELVIC SWELLING,MASS/LUMP UNSP 06/29/2016 Ot 790.29 OTHER ABNORMAL GLUCOSE 06/29/2016 Ot 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 06/29/2016 Ot 780.4 DIZZINESS AND GIDDINESS 06/29/2016 Ot 786.09 RESPIRATORY ABNORM NEC 06/29/2016 Ot 786.50 CHEST PAIN NOS 06/29/2016 Ot V58.66 LONG-TERM ( CURRENT) USE OF ASPIRIN 06/29/2016 Ot V58.69 OTH MED,LT, CURRENT USE 06/29/2016 Ot 780.4 DIZZINESS AND GIDDINESS 06/29/2016 Ot 786.09 RESPIRATORY ABNORM NEC 06/29/2016 Ot 786.50 CHEST PAIN NOS 06/29/2016 Ot 610.0 SOLITARY CYST OF BREAST 06/29/2016 Ot 272.4 HYPERLIPIDEMIA NEC/NOS 06/29/2016 Ot 793.80 UNSPEC ABNORMAL MAMMOGRAM 06/29/2016 Ot 272.4 HYPERLIPIDEMIA NEC/NOS 06/29/2016 Ot 401.9 HYPERTENSION NOS 06/29/2016 Ot 416.8 CHR PULMON HEART DIS NEC 06/29/2016 Ot 428.30 UNSPEC DIASTOLIC HRT FAILURE 06/29/2016 Ot 272.4 HYPERLIPIDEMIA NEC/NOS 06/29/2016 Ot V76.12 OTH SCREEN MAMMO-MALIGN NEOPLASM OF [place] 06/29/2016 GEN BRAVO Ot 401.9 HYPERTENSION NOS 06/29/2016 SHELLY, GEN ORTHOTICS TECHNICIAN Ot 724.2 LUMBAGO 06/29/2016 GEN BRAVO ORTHOTICS TECHNICIAN Ot V70.0 ROUTINE MEDICAL EXAM 06/29/2016 GEN BRAVO ORTHOTICS TECHNICIAN Ot V76.51 SCREEN MAL NEOP-COLON 06/29/2016 MARILEE MILLER, JAVON Williamson Ot 272.4 HYPERLIPIDEMIA NEC/NOS 06/29/2016 BHAVESH TELLEZ MD Ot V72.84 EXAM PRE-OPERATIVE NOS 06/29/2016 [place] HAND ORTHOTICS TECHNICIAN Ot V76.12 OTH SCREEN MAMMO-MALIGN NEOPLASM OF [place] 06/29/2016 LYNSEY HAND ORTHOTICS TECHNICIAN Ot 793.80 UNSPEC ABNORMAL MAMMOGRAM 06/29/2016 LILIBETH MILLER, REMY A Ot 401.9 HYPERTENSION NOS 06/29/2016 LILIBETH MILLER, REMY A Ot 790.29 OTHER ABNORMAL GLUCOSE 06/29/2016 REMY MCELROY MD Ot V72.62 LAB EXAM ORDERED PART OF A ROUTINE GE 06/29/2016 REMY MCELROY MD Ot 272.4 HYPERLIPIDEMIA NEC/NOS 06/29/2016 REMY MCELROY MD A Ot 305.1 TOBACCO USE DISORDER 06/29/2016 REMY MCELROY MD A Ot 401.9 HYPERTENSION NOS 06/29/2016 REMY MCELROY MD Ot V72.62 LAB EXAM ORDERED PART OF A ROUTINE GE 06/29/2016 REMY MCELROY MD Ot 272.4 HYPERLIPIDEMIA NEC/NOS 06/29/2016 REMY MCELROY MD A Ot 305.1 TOBACCO USE DISORDER 06/29/2016 REMY MCELROY MD A Ot 401.9 HYPERTENSION NOS 06/29/2016 REMY MCELROY MD A Ot V82.9 SCREEN FOR CONDITION NOS 06/29/2016 L[place] HAND ORTHOTICS TECHNICIAN Ot 793.11 SOLITARY PULMONARY NODULE 06/29/2016 LYNSE[place] HAND ORTHOTICS TECHNICIAN Ot V76.12 OTH SCREEN MAMMO-MALIGN NEOPLASM OF [place] 06/29/2016 REMY MCELROY MD A Ot 305.1 TOBACCO USE DISORDER 06/29/2016 REMY MCELROY MD A Ot 401.9 HYPERTENSION NOS 06/29/2016 REMY MCELROY MD A Ot 790.29 OTHER ABNORMAL GLUCOSE 06/29/2016 L[place] HAND ORTHOTICS TECHNICIAN Ot 793.11 SOLITARY PULMONARY NODULE 06/29/2016 MAYA MORA APRN Ot F17.200 NICOTINE DEPENDENCE, UNSPECIFIED, UNCOMP 06/29/2016 [place] HAND ORTHOTICS TECHNICIAN Ot R91.1 SOLITARY PULMONARY NODULE 06/29/2016 LYNSE[facility] HAND ORTHOTICS TECHNICIAN Ot R91.1 SOLITARY PULMONARY NODULE 06/29/2016 SIMEON MANUEL Seamus [employer] Ot M54.5 LOW BACK PAIN 06/29/2016 BOB MOSELEY DO Ot 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 NEOPLASM OF UPPER LOBE, LEFT B 06/29/2016 BOB MOSELEY DO Ot R91.1 SOLITARY PULMONARY NODULE 06/29/2016 BOB MOSELEY DO Ot Z72.0 TOBACCO USE 06/29/2016 MAYA MORA APRN Ot 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 NEOPLASM OF UPPER LOBE, UNSP B 06/29/2016 MAYA MORA APRN Ot R91.1 SOLITARY PULMONARY NODULE 06/29/2016 Ot Z12.31 ENCNTR SCREEN MAMMOGRAM FOR MALIGNANT NE 06/29/2016 TIFFANI DUNLAP MD Ot 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 NEOPLASM OF UPPER LOBE, LEFT B 06/29/2016 TIFFANI DUNLAP MD Ot R59.0 LOCALIZED ENLARGED LYMPH NODES 06/29/2016 TIFFANI DUNLAP MD Ot C34.91 MALIGNANT NEOPLASM OF UNSP PART OF RIGHT 06/29/2016 TIFFANI DUNLAP MD Ot F17.210 NICOTINE DEPENDENCE, CIGARETTES, UNCOMPL 06/29/2016 TIFFANI DUNLAP MD Ot I10 ESSENTIAL (PRIMARY) HYPERTENSION 06/29/2016 TIFFANI DUNLAP MD Ot J44.9 CHRONIC OBSTRUCTIVE PULMONARY DISEASE, U 06/29/2016 LYNSEY HAND Ot M85.89 OTH DISRD OF BONE DENSITY AND STRUCTURE, 06/29/2016 JANN MILLER FACC, ALI FACP CCDS Ot E78.4 OTHER HYPERLIPIDEMIA 06/29/2016 JANN FERMINC, ALI FACP CCDS Ot I10 ESSENTIAL (PRIMARY) HYPERTENSION 06/29/2016 JANN MILLER FACC, ALI FACP CCDS Ot I25.10 ATHSCL HEART DISEASE OF [place] CORONARY 06/29/2016 JANN FERMINC, ALI FACP CCDS Ot I65.23 OCCLUSION AND STENOSIS OF BILATERAL [place] 06/29/2016 JANN FERMIN, ALI FACP CCDS Ot J43.8 OTHER EMPHYSEMA 06/29/2016 JANN MILLER FAC, ALI FACP CCDS Ot Z72.0 TOBACCO USE 06/30/2016 ANALI PETERSON MD Ot 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 NEOPLASM OF UPPER LOBE, LEFT B 07/21/2016 ANALI PETERSON MD Ot 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 NEOPLASM OF UPPER LOBE, LEFT B 08/24/2016 TIFFANI DUNLAP MD, Ot C34.91 MALIGNANT NEOPLASM OF UNSP PART OF RIGHT 08/24/2016 TIFFANI DUNLAP MD Ot F17.210 NICOTINE DEPENDENCE, CIGARETTES, UNCOMPL 08/24/2016 TIFFANI DUNLAP MD Ot I10 ESSENTIAL (PRIMARY) HYPERTENSION 08/24/2016 TIFFANI DUNLAP MD Ot J44.9 CHRONIC OBSTRUCTIVE PULMONARY DISEASE, U 12/07/2016 TIFFANI DUNLAP MD, Ot C34.91 MALIGNANT NEOPLASM OF UNSP PART OF RIGHT 12/07/2016 TIFFANI DUNLAP MD, Ot F17.210 NICOTINE DEPENDENCE, CIGARETTES, UNCOMPL 12/07/2016 TIFFANI DUNLAP MD Ot I10 ESSENTIAL (PRIMARY) HYPERTENSION 12/07/2016 TIFFANI DUNLAP MD, Ot J44.9 CHRONIC OBSTRUCTIVE PULMONARY DISEASE, U 12/24/2016 MANUEL HENDRIX APRN Ot M54.5 LOW BACK PAIN 12/24/2016 BOB MOSELEY DO Ot 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 NEOPLASM OF UPPER LOBE, LEFT B 12/24/2016 BOB MOSELEY DO Ot R91.1 SOLITARY PULMONARY NODULE 12/24/2016 BOB MOSELEY DO Ot Z72.0 TOBACCO USE 12/24/2016 MAYA MORA APRN Ot 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 NEOPLASM OF UPPER LOBE, UNSP B 12/24/2016 MAYA MORA APRN Ot R91.1 SOLITARY PULMONARY NODULE 12/24/2016 Ot Z12.31 ENCNTR SCREEN MAMMOGRAM FOR MALIGNANT NE 12/24/2016 TIFFANI DUNLAP MD Ot 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 NEOPLASM OF UPPER LOBE, LEFT B 12/24/2016 TIFFANI DUNLAP MD Ot R59.0 LOCALIZED ENLARGED LYMPH NODES 12/24/2016 LYNSEY HAND Ot M85.89 OT DISRD OF BONE DENSITY AND STRUCTURE, 12/24/2016 JANN MILLER [facility], ALI FACP CCDS Ot E78.4 OTHER HYPERLIPIDEMIA 12/24/2016 JANN MILLER [facility], ALI FACP CCDS Ot I10 ESSENTIAL (PRIMARY) HYPERTENSION 12/24/2016 JANN MILLER [facility], ALI FACP CCDS Ot I25.10 ATHSCL HEART DISEASE OF [place] CORONARY 12/24/2016 JANN MILLER [facility], ALI FACP CCDS Ot I65.23 OCCLUSION AND STENOSIS OF BILATERAL [place] 12/24/2016 JANN MILLER [facility], ALI FACP CCDS Ot J43.8 OTHER EMPHYSEMA 12/24/2016 JANN MILLER [facility] Ot Z72.0 TOBACCO USE 12/24/2016 NICHOLAS MILLER, ANALI Hernandez Ot 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 NEOPLASM OF UPPER LOBE, LEFT B 12/24/2016 TIFFANI DUNLAP MD, Ot C34.91 MALIGNANT NEOPLASM OF UNSP PART OF RIGHT 12/24/2016 TIFFANI DUNLAP MD Ot F17.210 NICOTINE DEPENDENCE, CIGARETTES, UNCOMPL 12/24/2016 TIFFANI DUNLAP MD Ot I10 ESSENTIAL (PRIMARY) HYPERTENSION 12/24/2016 TIFFANI DUNLAP MD Ot J44.9 CHRONIC OBSTRUCTIVE PULMONARY DISEASE, U 12/25/2016 TIFFANI DUNLAP MD Ot C34.91 MALIGNANT NEOPLASM OF UNSP PART OF RIGHT 12/25/2016 TIFFANI DUNLAP MD Ot F17.210 NICOTINE DEPENDENCE, CIGARETTES, UNCOMPL 12/25/2016 TIFFANI DUNLAP MD Ot I10 ESSENTIAL (PRIMARY) HYPERTENSION 12/25/2016 TIFFANI DUNLAP MD Ot J44.9 CHRONIC OBSTRUCTIVE PULMONARY DISEASE, U 12/30/2016 MANUEL HENDRIX APRN Ot M54.5 LOW BACK PAIN 12/30/2016 BOB MOSELEY DO Ot 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 NEOPLASM OF UPPER LOBE, LEFT B 12/30/2016 BOB MOSELEY DO Ot R91.1 SOLITARY PULMONARY NODULE 12/30/2016 BOB MOSELEY DO Ot Z72.0 TOBACCO USE 12/30/2016 MAYA MORA APRN Ot 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 NEOPLASM OF UPPER LOBE, UNSP B 12/30/2016 MAYA MORA APRN Ot R91.1 SOLITARY PULMONARY NODULE 12/30/2016 Ot Z12.31 ENCNTR SCREEN MAMMOGRAM FOR MALIGNANT NE 12/30/2016 TIFFANI DUNLAP MD Ot 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 NEOPLASM OF UPPER LOBE, LEFT B 12/30/2016 TIFFANI DUNLAP MD Ot R59.0 LOCALIZED ENLARGED LYMPH NODES 12/30/2016 LYNSEY HAND ORTHOTICS TECHNICIAN Ot M85.89 OT DISRD OF BONE DENSITY AND STRUCTURE, 12/30/2016 JANN MILLER FACC, ALI FACP CCDS Ot E78.4 OTHER HYPERLIPIDEMIA 12/30/2016 JANN MILLER FACC, ALI FACP CCDS Ot I10 ESSENTIAL (PRIMARY) HYPERTENSION 12/30/2016 JANN MILLER FACC, ALI FACP CCDS Ot I25.10 ATHSCL HEART DISEASE OF [place] CORONARY 12/30/2016 JANN MILLER FACC, ALI FACP CCDS Ot I65.23 OCCLUSION AND STENOSIS OF BILATERAL [place] 12/30/2016 JANN MILLER FACC, ALI FACP CCDS Ot J43.8 OTHER EMPHYSEMA 12/30/2016 JANN MILLER FACC, ALI FACP CCDS Ot Z72.0 TOBACCO USE 12/30/2016 NICHOLAS MILLER, ANALI Hernandez Ot 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 NEOPLASM OF UPPER LOBE, LEFT B 12/30/2016 TIFFANI DUNLAP MD Ot C34.91 MALIGNANT NEOPLASM OF UNSP PART OF RIGHT 12/30/2016 ITFFANI DUNLAP MD Ot F17.210 NICOTINE DEPENDENCE, CIGARETTES, UNCOMPL 12/30/2016 TIFFANI DUNLAP MD Ot I10 ESSENTIAL (PRIMARY) HYPERTENSION 12/30/2016 TIFFANI DUNLAP MD Ot J44.9 CHRONIC OBSTRUCTIVE PULMONARY DISEASE, U 01/01/2017 TIFFANI DUNLAP MD Ot 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 NEOPLASM OF UPPER LOBE, LEFT B 01/01/2017 TIFFANI DUNLAP MD, Ot 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 NEOPLASM OF UPPER LOBE, LEFT B 01/05/2017 TIFFANI DUNLAP MD, Ot 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 NEOPLASM OF UPPER LOBE, LEFT B 01/28/2017 MANUEL HENDRIX APRN Ot Z12.31 ENCNTR SCREEN MAMMOGRAM FOR MALIGNANT NE 01/28/2017 MANUEL HENDRIX APRN Ot Z12.31 ENCNTR SCREEN MAMMOGRAM FOR MALIGNANT NE 01/29/2017 MANUEL HENDRIX APRN Ot Z12.31 ENCNTR SCREEN MAMMOGRAM FOR MALIGNANT NE 01/29/2017 TIFFANI DUNLAP MD Ot 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 NEOPLASM OF UPPER LOBE, LEFT B 02/19/2017 MANUEL HENDRIX APRN Ot Z12.31 ENCNTR SCREEN MAMMOGRAM FOR MALIGNANT NE 02/22/2017 TIFFANI DUNLAP MD Ot C34.91 MALIGNANT NEOPLASM OF UNSP PART OF RIGHT 02/22/2017 TIFFANI DUNLAP MD Ot F17.210 NICOTINE DEPENDENCE, CIGARETTES, UNCOMPL 02/22/2017 TIFFANI DUNLAP MD Ot I10 ESSENTIAL (PRIMARY) HYPERTENSION 02/22/2017 TIFFANI DUNLAP MD Ot J44.9 CHRONIC OBSTRUCTIVE PULMONARY DISEASE, U 02/28/2017 TIFFANI DUNLAP MD Ot C34.91 MALIGNANT NEOPLASM OF UNSP PART OF RIGHT 02/28/2017 TIFFANI DUNLAP MD Ot F17.210 NICOTINE DEPENDENCE, CIGARETTES, UNCOMPL 02/28/2017 TIFFANI DUNLAP MD Ot I10 ESSENTIAL (PRIMARY) HYPERTENSION 02/28/2017 TIFFANI DUNLAP MD, Ot J44.9 CHRONIC OBSTRUCTIVE PULMONARY DISEASE, U 03/22/2017 MANUEL HENDRIX APRN Ot M54.5 LOW BACK PAIN 03/22/2017 BOB MOSELEY DO Ot 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 NEOPLASM OF UPPER LOBE, LEFT B 03/22/2017 BOB MOSELEY DO Ot R91.1 SOLITARY PULMONARY NODULE 03/22/2017 BOB MOSELEY DO Ot Z72.0 TOBACCO USE 03/22/2017 MAYA MORA APRN Ot 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 NEOPLASM OF UPPER LOBE, UNSP B 03/22/2017 MAYA MORA APRN Ot R91.1 SOLITARY PULMONARY NODULE 03/22/2017 Ot Z12.31 ENCNTR SCREEN MAMMOGRAM FOR MALIGNANT NE 03/22/2017 TIFFANI DUNLAP MD Ot 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 NEOPLASM OF UPPER LOBE, LEFT B 03/22/2017 TIFFANI DUNLAP MD Ot R59.0 LOCALIZED ENLARGED LYMPH NODES 03/22/2017 LYNSEY HAND Ot M85.89 OTH DISRD OF BONE DENSITY AND STRUCTURE, 03/22/2017 JANN MILLER FACC, ALI FACP CCDS Ot E78.4 OTHER HYPERLIPIDEMIA 03/22/2017 JANN MILLER FACC, ALI FACP CCDS Ot I10 ESSENTIAL (PRIMARY) HYPERTENSION 03/22/2017 JANN MILLER FAC, ALI FACP CCDS Ot I25.10 ATHSCL HEART DISEASE OF [place] CORONARY 03/22/2017 JANN MILLER FAC, ALI FACP CCDS Ot I65.23 OCCLUSION AND STENOSIS OF BILATERAL [place] 03/22/2017 JANN MILLER FACC, ALI FACP CCDS Ot J43.8 OTHER EMPHYSEMA 03/22/2017 JANN MILLER FAC, ALI FACP CCDS Ot Z72.0 TOBACCO USE 03/22/2017 NICHOLAS MILLER, ANALI Hernandez Ot 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 NEOPLASM OF UPPER LOBE, LEFT B 03/22/2017 TIFFANI DUNLAP MD, Ot 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 NEOPLASM OF UPPER LOBE, LEFT B 03/22/2017 MANUEL HENDRIX APRN Ot Z12.31 ENCNTR SCREEN MAMMOGRAM FOR MALIGNANT NE 03/22/2017 TIFFANI DUNLAP MD, Ot C34.91 MALIGNANT NEOPLASM OF UNSP PART OF RIGHT 03/22/2017 TIFFANI DUNLAP MD Ot F17.210 NICOTINE DEPENDENCE, CIGARETTES, UNCOMPL 03/22/2017 TIFFANI DUNLAP MD Ot I10 ESSENTIAL (PRIMARY) HYPERTENSION 03/22/2017 TIFFANI DUNLAP MD Ot J44.9 CHRONIC OBSTRUCTIVE PULMONARY DISEASE, U 03/23/2017 TIFFANI DUNLAP MD, Ot C34.91 MALIGNANT NEOPLASM OF UNSP PART OF RIGHT 03/23/2017 TIFFANI DUNLAP MD, Ot F17.210 NICOTINE DEPENDENCE, CIGARETTES, UNCOMPL 03/23/2017 TIFFANI DUNLAP MD, Ot I10 ESSENTIAL (PRIMARY) HYPERTENSION 03/23/2017 TIFFANI DUNLAP MD Ot J44.9 CHRONIC OBSTRUCTIVE PULMONARY DISEASE, U 03/23/2017 TIFFANI DUNLAP MD Ot Z79.899 OTHER GROUP HOME (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 THERAPY 04/13/2017 TIFFANI DUNLAP MD, Ot 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 NEOPLASM OF UPPER LOBE, UNSP B 04/13/2017 TIFFANI DUNLAP MD Ot R91.1 SOLITARY PULMONARY NODULE 04/13/2017 TIFFANI DUNLAP MD, Ot R93.7 ABNORMAL FINDINGS ON DIAGNOSTIC IMAGING 04/23/2017 TIFFANI DUNLAP MD, Ot C34.91 MALIGNANT NEOPLASM OF UNSP PART OF RIGHT 04/23/2017 XUN MD, THOMPSON-SIMON Ot F17.210 NICOTINE DEPENDENCE, CIGARETTES, UNCOMPL 04/23/2017 TIFFANI DUNLAP MD Ot I10 ESSENTIAL (PRIMARY) HYPERTENSION 04/23/2017 ITFFANI DUNLAP MD Ot J44.9 CHRONIC OBSTRUCTIVE PULMONARY DISEASE, U 04/23/2017 TIFFANI DUNLAP MD Ot Z79.899 OTHER THERAPY DIRECTOR (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 THERAPY 04/30/2017 TIFFANI DUNLAP MD Ot 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 NEOPLASM OF UPPER LOBE, UNSP B 04/30/2017 TIFFANI DUNLAP MD Ot R91.1 SOLITARY PULMONARY NODULE 04/30/2017 TIFFANI DUNLAP MD Ot R93.7 ABNORMAL FINDINGS ON DIAGNOSTIC IMAGING 05/01/2017 TIFFANI DUNLAP MD, Ot C34.91 MALIGNANT NEOPLASM OF UNSP PART OF RIGHT 05/01/2017 TIFFANI DUNLAP MD, Ot F17.210 NICOTINE DEPENDENCE, CIGARETTES, UNCOMPL 05/01/2017 TIFFANI DUNLAP MD Ot I10 ESSENTIAL (PRIMARY) HYPERTENSION 05/01/2017 TIFFANI DUNLAP MD, Ot J44.9 CHRONIC OBSTRUCTIVE PULMONARY DISEASE, U 05/01/2017 TIFFANI DUNLAP MD Ot Z79.899 OTHER GROUP HOME (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 THERAPY 06/02/2017 RENETTA GONZALES MD K Ot C34.90 MALIGNANT NEOPLASM OF UNSP PART OF UNSP 06/02/2017 LUCIANA GONZALES MDMAL K Ot R91.1 SOLITARY PULMONARY NODULE 06/22/2017 LUCIANA GONZALES MDMAL K Ot C34.90 MALIGNANT NEOPLASM OF UNSP PART OF UNSP 06/22/2017 LUCIANA GONZALES MDMAL K Ot R91.1 SOLITARY PULMONARY NODULE 07/27/2017 RENETTA GONZALES MD K Ot C34.90 MALIGNANT NEOPLASM OF UNSP PART OF UNSP 07/27/2017 LUCIANA GONZALES MDMAL K Ot R91.1 SOLITARY PULMONARY NODULE 07/27/2017 TIFFANI DUNLAP MD Ot 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 NEOPLASM OF UPPER LOBE, LEFT B 07/27/2017 TIFFANI DUNLAP MD Ot E78.5 HYPERLIPIDEMIA, UNSPECIFIED 07/27/2017 TIFFANI DUNLAP MD Ot F17.210 NICOTINE DEPENDENCE, CIGARETTES, UNCOMPL 07/27/2017 TIFFANI DUNLAP MD, Ot I10 ESSENTIAL (PRIMARY) HYPERTENSION 07/27/2017 TIFFANI DUNLAP MD, Ot I25.10 ATHSCL HEART DISEASE OF [place] CORONARY 07/27/2017 TIFFANI DUNLAP MD, Ot I45.10 UNSPECIFIED RIGHT BUNDLE-BRANCH BLOCK 07/27/2017 TIFFANI DUNLAP MD, Ot J44.9 CHRONIC OBSTRUCTIVE PULMONARY DISEASE, U 07/27/2017 TIFFANI DUNLAP MD, Ot R91.1 SOLITARY PULMONARY NODULE 07/27/2017 TIFFANI DUNLAP MD, Ot Z79.82 GROUP HOME (CURRENT) USE OF ASPIRIN 07/27/2017 TIFFANI DUNLAP MD, Ot Z79.899 OTHER THERAPY DIRECTOR (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 THERAPY Procedures Code Description [place] [address] ROUTINE VENIPUNCTURE 06/16/2012 53565 UA W/ CULTURE IF INDICATED 06/16/2012 73915 LIPID PANEL 06/16/2012 36446 INFLUENZA A & B (IN-HOUSE) 08/05/2012 Cardiolog Javon Poole 09/26/2012 15078 XRAY KNEE LEFT 3 VIEWS 10/27/2012 06158 MAMMOGRAM, SCREENING 10/27/2012 47321 DEXA BONE DENSITY, AXIAL 12/28/2012 Results There is no data. Encounters ACCT No. Visit Date/Time Discharge Status Pt. Type Provider Facility Loc./Unit Complaint [id number] 03/16/2013 08:17:00 03/16/2013 23:59:59 CLS Outpatient GABI TINOCO MD [id number] 10/25/2012 08:21:00 10/25/2012 23:59:59 CLS Outpatient GEN BRAVO APRN [id number] 08/05/2012 08:55:00 08/05/2012 23:59:59 CLS Outpatient [id number] 08/05/2012 08:55:00 08/05/2012 23:59:59 CLS Outpatient [id number] 04/11/2012 08:13:00 04/11/2012 23:59:59 CLS Outpatient GEN BRAVO APRN [id number] 12/27/2012 08:27:00 Document Registration [id number] 10/25/2012 08:21:00 Document Registration [id number] 06/03/2017 08:47:00 06/03/2017 23:59:59 CLS Outpatient TIFFANI DUNLAP MD [facility] ONC [id number] 06/01/2017 08:40:00 06/01/2017 23:59:59 CLS Outpatient RENETTA GONZALES MD [facility] RAD NEUROENDOCIRINE CARCINOMA OF LUNG [id number] 04/27/2017 08:24:00 05/01/2017 00:01:00 DIS Outpatient TIFFANI DUNLAP MD [facility] ONC [id number] 03/23/2017 09:32:00 03/23/2017 23:59:59 CLS Outpatient TIFFANI DUNLAP MD [facility] RAD R91.1 LUNG NODULE SEEN ON IMAGING STUDY [id number] 01/05/2017 08:10:00 02/22/2017 00:01:00 DIS Outpatient TIFFANI DUNLAP MD [facility] ONC [id number] 01/28/2017 07:19:00 01/28/2017 23:59:59 CLS Outpatient MANUEL HENDRIX APRN [facility] RAD SCREENING [id number] 12/30/2016 07:28:00 12/30/2016 23:59:59 CLS Outpatient TIFFANI DUNLAP MD [facility] RAD C34.10 [id number] 06/30/2016 15:27:00 08/24/2016 00:01:00 DIS Outpatient TIFFANI DUNLAP MD [facility] ONC [id number] 06/29/2016 07:21:00 06/29/2016 23:59:59 CLS Outpatient ANALI PETERSON MD [facility] RAD LUNG CA [id number] 06/02/2016 08:09:00 06/02/2016 23:59:59 CLS Outpatient JANN MILLER FACC, TABITHA GALLOWAY CCDS [facility] CARD CAD,COPD,HTN [id number] 05/21/2016 08:20:00 05/21/2016 23:59:59 CLS Outpatient LYNSEY HAND [facility] RAD OSTEOPENIA M85.89 [id number] 03/31/2016 15:33:00 05/08/2016 15:55:00 DIS Outpatient TIFFANI DUNLAP MD [facility] ONC [id number] 03/16/2016 07:29:00 03/16/2016 23:59:59 CLS Outpatient TIFFANI DUNLAP MD [facility] RAD LUNG CANCER,UPPER LOBE [id number] 03/02/2016 09:09:00 03/08/2016 00:01:00 DIS Outpatient TIFFANI DUNLAP MD [facility] ONC [id number] 12/31/2015 07:58:00 12/31/2015 23:59:59 CLS Outpatient MAYA MORA [employer] [facility] RAD LUNG CANCER [id number] 12/20/2015 11:46:00 12/20/2015 23:59:59 CLS Outpatient MANUEL HENDRIX [employer] [facility] RAD LOW BACK PAIN [id number] 12/19/2015 09:05:00 12/19/2015 23:59:59 CLS Outpatient BOB MOSELEY DO [facility] RAD LUNG CA UPPER LOBE,LUNG NODULE [id number] 12/15/2015 12:51:00 12/15/2015 23:59:59 CLS Outpatient SURINDER CHIU ORTHOTICS TECHNICIAN [facility] QUICK [id number] 08/14/2015 07:25:00 08/14/2015 23:59:59 CLS Outpatient LYNSEY HAND ORTHOTICS TECHNICIAN [facility] RAD LUNG NODULE [id number] 05/29/2015 07:09:00 05/29/2015 23:59:59 CLS Outpatient LYNSEY HAND ORTHOTICS TECHNICIAN [facility] RAD PULOMONARY NODULE [id number] 05/15/2015 06:57:00 05/15/2015 23:59:59 CLS Outpatient MAYA MORA [employer] [facility] RT TOBACCO DEPENDENCE [id number] 02/25/2015 07:24:00 02/25/2015 23:59:59 CLS Outpatient LYNSEY HAND ORTHOTICS TECHNICIAN [facility] RAD PULOMARY NODULE [id number] 02/19/2015 08:02:00 02/19/2015 23:59:59 CLS Outpatient REMY MCELROY MD [facility] LAB ESSENTIAL HYPERTENSION,ELEVATED GLUCOSE,TOBACCOISM [id number] 01/09/2015 09:03:00 01/09/2015 23:59:59 CLS Outpatient LYNSEY HAND [facility] RAD SCREENING [id number] 11/22/2014 07:32:00 11/22/2014 23:59:59 CLS Outpatient LYNSEY HAND [facility] RAD PULMONARY NODULE [id number] 11/14/2014 07:43:00 11/14/2014 23:59:59 CLS Outpatient REMY MCELROY MD [facility] RAD SCREENING, HX OF TOBACCOISM [id number] 07/17/2014 07:18:00 07/17/2014 23:59:59 CLS Outpatient REMY MCELROY MD [facility] LAB HTN,HLP,ROUTINE EXAM [id number] 03/13/2014 07:40:00 03/13/2014 23:59:59 CLS Outpatient REMY MCELROY MD [facility] LAB HTN,ELEVATED BLOOD SUGAR,ROUTINE EXAM [id number] 01/12/2014 07:55:00 01/12/2014 23:59:59 CLS Outpatient LYNSEY HAND [facility] RAD ABN MAMMO [id number] 12/27/2013 08:33:00 12/27/2013 23:59:59 CLS Outpatient LYNSEY HAND [facility] RAD SCREENING [id number] 11/15/2013 08:22:00 11/15/2013 12:30:00 DIS Outpatient BHAVESH TELLEZ MD [facility] SDC REFLUX;HISTORY OF POLYPS [id number] 11/08/2013 07:12:00 11/08/2013 23:59:59 CLS Outpatient BHAVESH TELLEZ MD [facility] PREOP REFLUX;HISTORY OF POLYPS [id number] 08/29/2013 07:31:00 08/29/2013 13:28:00 DIS Outpatient JANN MILLER FACC, TABITHA GALLOWAY CCDS [facility] CATH CP,TABACCOISM ,HTN,HLP [id number] 02/09/2013 08:00:00 02/09/2013 23:59:59 CLS Outpatient MARILEE MILLER, JAVON Williamson [facility] LAB FASTING LIPID PANEL, HEPATIC PANEL [id number] 01/06/2013 09:02:00 01/06/2013 23:59:59 CLS Outpatient GEN BRAVOP [facility] RAD LUMBAGO [id number] 08/10/2017 10:00:00 PEN Preadjonathon FORTE MD FACC, TABITHA GALLOWAY CCDS [facility] CARD PAF [id number] 01/14/2016 08:40:00 Document Registration [id number] 02/04/2015 08:15:00 Document Registration [id number] 02/04/2015 08:15:00 Document Registration [id number] 02/04/2015 08:15:00 Document Registration [id number] 02/04/2015 08:15:00 Document Registration [id number] 02/04/2015 08:15:00 Document Registration [id number] 02/04/2015 08:15:00 Document Registration [id number] 02/04/2015 08:15:00 Document Registration [id number] 02/04/2015 08:15:00 Document Registration [id number] 11/22/2014 07:32:00 Document Registration [id number] 11/22/2014 07:32:00 Document Registration [id number] 11/22/2014 07:32:00 Document Registration [id number] 11/22/2014 07:32:00 Document Registration [id number] 11/22/2014 07:32:00 Document Registration [id number] 11/22/2014 07:32:00 Document Registration [id number] 11/16/2012 07:17:00 Document Registration [id number] 10/21/2011 08:20:00 Document Registration [id number] 08/31/2011 06:30:00 Document Registration [id number] 07/03/2011 07:48:00 Document Registration [id number] 05/05/2011 14:58:00 Document Registration [id number] 04/28/2011 12:04:00 Document Registration [id number] 04/23/2011 12:43:00 Document Registration [id number] 04/07/2011 07:30:00 Document Registration [id number] 04/03/2011 15:27:00 Document Registration [id number] 12/18/2010 08:06:00 Document Registration [id number] 10/15/2010 09:51:00 Document Registration [id number] 06/25/2010 07:47:00 Document Registration [id number] 04/15/2010 10:48:00 Document Registration [id number] 03/13/2010 12:45:00 Document Registration [id number] 10/02/2009 08:13:00 Document Registration [id number] 09/23/2009 13:52:00 Document Registration [id number] 06/19/2009 08:30:00 Document Registration [id number] 04/19/2009 09:53:00 Document Registration [id number] 03/14/2009 08:34:00 Document Registration [id number] 11/27/2008 08:12:00 Document Registration [id number] 11/05/2008 09:45:00 Document Registration [id number] 05/17/2008 12:46:00 Document Registration [id number] 09/02/2007 08:23:00 Document Registration
[2017-08-10 07:39] LABS: PROTHROMBIN TIME PATIENT 12.9 SEC (12.2-14.7)
[2017-08-10] MEDS ORDERED: ATOR10TA PO (07:41)
[2017-08-10] MEDS ORDERED: L.AC1CAP6 PO (07:41)
[2017-08-10] MEDS ORDERED: DICY10CA12 PO (07:41)
[2017-08-10] MEDS ORDERED: GLUC-116 PO (07:41)
[2017-08-10] MEDS ORDERED: BUPR-168 PO (07:41)
[2017-08-10 07:44] LABS: ALBUMIN 3.9 GM/DL (3.2-4.5); BILIRUBIN,TOTAL 0.3 MG/DL (0.1-1.0); CALCIUM 9.5 MG/DL (8.5-10.1); CREATININE SERUM 0.99 MG/DL (0.60-1.30); POTASSIUM 3.8 MMOL/L (3.6-5.0); TOTAL PROTEIN 6.5 GM/DL (6.4-8.2)
[2017-08-10 08:49] LABS: HEMOGLOBIN 14.5 G/DL (11.5-16.0); MEAN PLATELET VOLUME 10.7 FL (7.4-10.4); RED BLOOD COUNT 4.52 10^6/uL (4.35-5.85); RED CELL DISTRIBUTION WIDTH 13.6 % (10.0-14.5); WHITE BLOOD COUNT 6.8 10^3/uL (4.3-11.0)
[2017-08-10] MEDS ORDERED: fentaNYL INJECTION 100 MCG/2 ML AMP ONE (10:17)
[2017-08-10] MEDS ORDERED: MIDAZOLAM 5 MG/5 ML (VERSED) VIAL ONE (10:17)
[2017-08-10] MEDS ORDERED: diphenhydrAMINE 50 MG/ML INJ (BENADRYL) ONE (10:17)
--- NOTE | 2017-08-10 10:29 | Cardiac Procedure Note-CS/ASA ---
Pre-Procedure Note Pre-Op Procedure Note H&P Reviewed The H&P was reviewed, patient examined and no changes noted. Date H&P Reviewed: Aug 10, 2017 Time H&P Reviewed: 10:29 Conscious Sedation Pre-Proced Time Reviewed: :29 ASA Class: 2 Airway Mallampati Classification: (asa'[place] appropriate class) I. II. III, IV Lungs Heart ASA score ASA 1: a normal healthy patient ASA 2: a patient with a mild systemic disease (mid diabetes, controlled hypertension, obesity ASA 3: a patient with a severe systemic disease that limits activity (angina , COPD, prior Myocardial infarction) ASA 4: a patient with an incapacitating disease that is a constant threat to life (CHF, renal failure) ASA 5: a moribund patient not expected to survive 24 hrs. (ruptured aneurysm) ASA 6: a declared brain patient whose organs are being harvested. For emergent operations, add the letter E after the classification Grade 2 Sedation Plan: Analgesia, Amnesia, Plan communicated to team members, Discussed options with patient/fam, Discussed risks with patient/fam Note The patient is an appropriate candidate to undergo the planned procedure, sedation, and anesthesia. The patient immediately re-assessed prior to indication. TABITHA FORTE MD FACP FAC CCDS Aug 10, 2017 10:29
[2017-08-10] MEDS ORDERED: PATIENT MAY USE OWN MEDS, ALL PO SCH (11:00)
--- NOTE | 2017-08-10 11:05 | Discharge Inst-Post CATH ---
Discharge Inst-CATH Post Cardiac Cath D/C Inst Follow Up/Plan F/u with Dr Combs in 1-2 weeks CARDIAC CATH DISCHARGE INSTRUCTIONS *Hold Metformin for 48 hours post heart cath. ACTIVITY * Go Home directly and rest. * Limit activity of the leg (or wrist if it was used) for 7 days including aerobics, swimming, jogging, bicycling, etc. * Restrict stair-climbing for 7 days if possible, if not, climb up with your non -cath leg, then bring together on the same step. * Avoid lifting, pushing, pulling or excessive movement of the affected extremity for 7 days. * Customary sexual activity may be resumed after 2 days-use caution not to use a position that strains or causes pain to the affected extremity. * No driving for 24 hours. * NO SMOKING. * Avoid straining for bowel movements for 7 days. * Gentle walking on level ground is allowed. * Returning to work will depend on the type of procedure and the results. Your doctor will discuss this with you. CALL YOUR DOCTOR FOR ANY OF THE FOLLOWING: *If bleeding from the puncture site occurs- Apply gentle pressure to site with clean cloth and call your doctor or EMS. * If a knot or lump forms under the skin, increases in size, or causes pain. * If bruising appears to be worsening or moving further down your leg instead of disappearing. * Temperature above 101 F. CARE OF YOUR GROIN INCISION; * Bruising or purple discoloration of the skin near the puncture site is common. * You may shower only, no bathtub bathing for 5 days. Be careful to avoid slipping as your leg may feel stiff. * If a closure device was used on your femoral artery, please see the attached guide regarding care of the device and your leg. * REMOVE the dressing from your groin the next day after your procedure in the shower. CARE OF YOUR WRIST INCISION; * Bruising or purple discoloration of the skin near the puncture site is common. * You may shower. * DO NOT submerge wrist. * Remove dressing in 24 hours. TABITHA COMBS MD [facility] Aug 10, 2017 11:05
--- NOTE | 2017-08-10 11:06 | Discharge Inst-Cardiology ---
Discharge Inst-Cardiac Discharge Medications Continued Medications: Amlodipine Besylate (Norvasc Tablet) 10 Mg Tablet 10 MG PO DAILY AFTER LUNCH Aspirin (Aspirin) 81 Mg Tablet 81 MG PO DAILY, TAB Atorvastatin Calcium (Lipitor) 10 Mg Tablet 10 MG PO DAILY, TAB Bupropion HCl (Bupropion HCl) 75 Mg Tablet 75 MG PO BID for Smoking Cessation, TAB Calcium Carb/D3/Mag Aa Chelate (Coral Calcium Capsule) 1 Each Capsule 1 CAP PO BID Cholecalciferol (Vitamin D3) 1,000 Unit Capsule 1000 UNIT PO DAILY Dicyclomine HCl (Dicyclomine HCl) 10 Mg Capsule 10 MG PO TID, CAP Gluc/Aleksandr-MSM#2/C/D3/Jacky/Born (Nbrzjefxsp-Atsufzvmuil-MBB Tab) 1 Each Tablet 1 EACH PO BID, TAB L.acidoph & Paracasei,B.lactis (Probiotic) 1 Each Capsule 1 EACH PO BID, CAP Metoprolol Tartrate (Metoprolol Tartrate 100 Mg) 100 Mg Tablet 100 MG PO BID Multivitamin (Multi Vitamin Daily) 1 Each Tablet 1 TAB PO DAILY [place]-3 Fatty Acids/Fish Oil (Fish Oil 1,000 Mg Softgel) 1 Each Capsule 1000 MG PO TID Pantoprazole Sodium (Pantoprazole Sodium) 40 Mg Tablet.dr 40 MG PO DAILY, TAB Valsartan (Diovan 320 Mg) 320 Mg Tablet 320 MG PO DAILY TABITHA FORTE MD [facility] CCDS Aug 10, 2017 11:06
--- NOTE | 2017-08-10 14:15 | CARDIAC CATHETERIZATION ---
DATE OF SERVICE: 08/10/2017 The patient is a 72-year-old lady who was found to have one episode of wide complex tachycardia on a recent Holter monitor on which she also had brief episodes of paroxysmal atrial fibrillation. She has risk factor of coronary artery disease. Given wide complex tachycardia, cardiac catheterization was carried out today to evaluate for cardiomyopathy or obstructive coronary artery disease. PROCEDURE: She was brought to the cardiac catheterization laboratory in a fasting state. The right groin was prepared and draped in usual sterile fashion. Lidocaine 1% with local anesthesia, modified Seldinger technique was used to advance a 5-Omani sheath in right femoral artery. A 5-Omani pigtail catheter was used for left heart catheterization and left ventricular angiography. Aortic arch calcification was noted. The pigtail was pulled back to the aortic arch and aortic arch angiography was performed. We used 5-Omani JL4 catheter for left coronary angiography and 5-[place]mani JR4 catheter for right coronary angiography. At the end of the procedure, angiography of the right femoral artery was carried out through the sheath and manual pressure was used to achieve hemostasis. HEMODYNAMICS: Left ventricular end-diastolic pressure following coronary angiography was 5 mmHg. There was no significant pressure gradient on pullback across the aortic valve. Ascending aortic pressure was 138/63 with a mean of 95 mmHg. CORONARY ANGIOGRAPHY: Left main coronary artery, left anterior descending artery, left circumflex artery, right coronary artery have mild plaques. Right coronary artery is dominant. LEFT VENTRICULAR ANGIOGRAPHY: Left ventricular angiography shows normal global left ventricular systolic function with normal regional wall motion. There is mitral annular calcification. There does not appear to be significant mitral regurgitation. AORTIC ARCH ANGIOGRAPHY: Fluoroscopy has indicated considerable calcification in the thoracic aorta, particularly the aortic arch. Aortic arch angiography did not indicate any significant thoracic aortic aneurysm or dissection. There is calcification of the neck arteries, but there does not appear to be significant obstructive disease, to the extent visualized. CONCLUSIONS: 1. Mild coronary artery disease. 2. Normal global left ventricular systolic function with ejection fraction of 60%. 3. Normal left ventricular end-diastolic pressure. 4. Aortic arch calcification without thoracic aortic aneurysm or dissection. DISCUSSION AND RECOMMENDATIONS: Based on results of the study, it appears appropriate to continue a conservative approach. Risk factor modification has been reviewed. She is continuing with oral anticoagulation for paroxysmal atrial fibrillation. Outpatient followup is advised. Job ID: [id number] DocumentID: [id number] Dictated Date: 08/10/2017 10:54:37 Nursing Attendant Date: 08/10/2017 14:14:37 Dictated By: TABITHA FORTE MD, MA, FACP, FACC,
== END 2017-08-10 14:37 | disposition home or self-care (01) ==
LOC: CATH 06:47 → SURG 11:19 → CATH 14:37
PROVIDERS: ATTEND Internal Medicine Cardiovascular Disease
DX: I48.1 Persistent atrial fibrillation (principal); I70.0 Atherosclerosis of aorta; I25.10 Atherosclerotic heart disease of native coronary artery without angina pectoris; F17.210 Nicotine dependence, cigarettes, uncomplicated; I10 Essential (primary) hypertension; E78.5 Hyperlipidemia, unspecified; I45.10 Unspecified right bundle-branch block; I65.23 Occlusion and stenosis of bilateral carotid arteries; Z82.49 Family history of ischemic heart disease and other diseases of the circulatory system; Z79.82 Long term (current) use of aspirin; Z79.899 Other long term (current) drug therapy
CPT/HCPCS: 36221; 36415; 80053; 80061; 84443; 85027; 85610; 85730; 87081; 93005; 93458

== ENCOUNTER 2017-10-20 20:50 | Outpatient (CLI) | payer MEDICARE, OTHER ==
[~2017-10-20 20:50] MED LIST changes: +ATOR10TA PO; +BUPR-168 PO; +DICY10CA12 PO; +GLUC-116 PO; +L.AC1CAP6 PO
== END 2017-10-21 05:57 | disposition home or self-care (01) ==
LOC: SLEEP 20:50
PROVIDERS: ATTEND Otolaryngology Otolaryngology/Facial Plastic Surgery
DX: G47.9 Sleep disorder, unspecified (principal)
CPT/HCPCS: 95810

== ENCOUNTER → 2017-11-25 | Outpatient (CLI) | payer MEDICARE, OTHER ==
--- NOTE | 2017-11-25 14:03 | Diagnostic Imaging Report ---
INDICATION: Chronic pain/low back pain. AP and lateral views of the lumbar spine are obtained. There is some mild left convexity curvature in the lumbar spine. There is mild narrowing of the L4-L5 disc space with slight anterolisthesis of L4 on L5. Sclerosis noted about the L4-L5 and L5-S1 facet joints. IMPRESSION: Mild L4-L5 degenerative disc disease with L4-L5 and L5-S1 degenerative facet arthropathy. There is mild left convexity curvature of the lumbar spine without other evidence of acute abnormality such as fracture. Dictated by: Dictated on workstation # [id number]
--- NOTE | 2017-11-25 14:57 | Diagnostic Imaging Report ---
EXAMINATION: Cervical spine at 12:22 p.m. INDICATION: Chronic neck pain. FINDINGS: The lateral view shows the vertebral body heights and alignment to be generally within normal limits and similar to the previous MRI cervical spine exam of 05/17/2008. The intervertebral spaces are fairly well maintained. There is no fracture or acute bony abnormality evident. There is no sign of retropharyngeal edema. There are dense calcifications in the region of the carotid bifurcation on the right and a few calcifications in the area of the carotid bifurcation on the left. If further evaluation of the carotid systems for atherosclerotic disease is desired, then ultrasound would be recommended. The lung apices are clear. IMPRESSION: 1. There is no evidence for an acute bony abnormality. 2. If there is clinical concern regarding spinal stenosis or nerve root encroachment, then repeat MRI cervical spine exam would be recommended. 3. There is atherosclerotic disease involving both carotid systems, particularly on the right. Recommendations as above. Dictated by: Dictated on workstation # [id number]
== END ==
LOC: RAD 11:42
PROVIDERS: ATTEND Nurse Practitioner Family
DX: M47.816 Spondylosis without myelopathy or radiculopathy, lumbar region (principal); M46.87 Other specified inflammatory spondylopathies, lumbosacral region; I65.21 Occlusion and stenosis of right carotid artery
CPT/HCPCS: 72040; 72100

== ENCOUNTER 2017-11-26 20:52 | Outpatient (CLI) | payer MEDICARE, OTHER | END 2017-11-27 05:16 | disposition home or self-care (01) | LOC: SLEEP 20:52 | PROVIDERS: ATTEND Otolaryngology Otolaryngology/Facial Plastic Surgery | DX: G47.33 Obstructive sleep apnea (adult) (pediatric) (principal) | CPT/HCPCS: 95811 ==

== ENCOUNTER 2018-04-29 13:12 | Outpatient (RCR) | payer MEDICARE, OTHER | END 2018-05-04 10:28 | disposition home or self-care (01) | PROVIDERS: ATTEND Physician Assistant | DX: M48.061 Spinal stenosis, lumbar region without neurogenic claudication (principal); M54.16 Radiculopathy, lumbar region ==

== ENCOUNTER 2018-05-12 13:38 | Outpatient (RCR) | payer MEDICARE, OTHER | END 2018-05-12 14:31 | disposition home or self-care (01) | PROVIDERS: ATTEND Physician Assistant | DX: M48.061 Spinal stenosis, lumbar region without neurogenic claudication (principal); M54.16 Radiculopathy, lumbar region ==

== ENCOUNTER → 2018-06-24 | Outpatient (CLI) | payer MEDICARE, OTHER ==
--- NOTE | 2018-06-27 09:14 | Diagnostic Imaging Report ---
INDICATION: Routine screening. COMPARISON: 01/28/2017 and 01/14/2016. TECHNIQUE: 2D and 3D bilateral screening mammography was performed with CAD. FINDINGS: Scattered fibroglandular densities are identified bilaterally. Intraparenchymal lymph nodes in the medial and lateral right breast appear stable. A tiny benign-appearing intraparenchymal lymph node in the superior left breast is stable. No spiculated mass or malignant appearing microcalcifications are seen. The axillae are unremarkable. IMPRESSION: No mammographic features suspicious for malignancy are identified. ACR BI-RADS Category 2: Benign findings. Result letter will be mailed to the patient. Note: At least 10% of breast cancer is not imaged by mammography. Dictated by: Dictated on workstation # [id number]
== END ==
LOC: RAD 09:04
PROVIDERS: ATTEND Nurse Practitioner Family
DX: Z12.31 Encounter for screening mammogram for malignant neoplasm of breast (principal)
CPT/HCPCS: 77067

== ENCOUNTER → 2018-08-18 | Outpatient (CLI) | payer MEDICARE, OTHER ==
[~2018-08-18] MED LIST changes: +IOHEXOL 350 MG/ML 100 ML (OMNIPAQUE 350) VIAL IV ONE; +NS 100 ML (IVPB) BAG IV ONE; +RECEIVED CONTRAST (Hold Metformin) IV SCH
[2018-08-18 12:51] LABS: BUN/CREATININE RATIO 18; CREATININE SERUM 0.87 MG/DL (0.60-1.30); GFR ESTIMATED > 60
--- NOTE | 2018-08-18 14:43 | Diagnostic Imaging Report ---
PROCEDURE: CT chest with contrast only. TECHNIQUE: Multiple contiguous axial images were obtained through the chest after administration of intravenous contrast. INDICATION: Lung cancer. Comparison is made with prior CT chest from 03/23/2017. No axillary lymphadenopathy is identified. A right paratracheal node appears to be stable with short axis measurement of approximately 6 mm, stable. Minimal subcarinal density appears stable at approximately 1 cm. The yonathan are unremarkable. No pericardial or pleural fluid is seen. Parenchymal evaluation does show some centrilobular emphysematous changes. Previously noted mass in the left upper lobe is no longer visualized. No new parenchymal mass is seen. No infiltrates are detected. Upper abdomen is unremarkable. The patient has a pectus excavatum deformity. IMPRESSION: 1. Previously noted left upper lobe mass is no longer visualized. No recurrent or new mass in the pulmonary parenchyma is seen. 2. Stable mediastinal lymph nodes. Dictated by: Dictated on workstation # [id number]
== END ==
LOC: RAD 12:23
PROVIDERS: ATTEND Nurse Practitioner Family
DX: C34.90 Malignant neoplasm of unspecified part of unspecified bronchus or lung (principal)
CPT/HCPCS: 36415; 71260; 82565; 84520

== ENCOUNTER → 2018-09-26 | Outpatient (CLI) | payer MEDICARE, OTHER ==
[~2018-09-26] MED LIST changes: -IOHEXOL 350 MG/ML 100 ML (OMNIPAQUE 350) VIAL IV ONE; -NS 100 ML (IVPB) BAG IV ONE; -RECEIVED CONTRAST (Hold Metformin) IV SCH
--- NOTE | 2018-09-26 11:02 | Diagnostic Imaging Report ---
CLINICAL INDICATION: Patient intermittent claudication and tobacco use. COMPARISON: None. RESTING PRESSURES: Brachial: Right: 154 mmHg Left: 144 mmHg Posterior Tibial: Right: 145 mmHg Left: 148 mmHg Dorsalis pedis: Right: 143 mmHg Left: 134 mmHg The right ankle/arm index is 0.94. The left is 0.96. Normal is considered greater than or equal to 0.85. IMPRESSION: The ankle/arm indices are normal at rest bilaterally. Dictated by: Dictated on workstation # [id number]
== END ==
LOC: RAD 08:45
PROVIDERS: ATTEND Nurse Practitioner Family
DX: I73.9 Peripheral vascular disease, unspecified (principal); Z72.0 Tobacco use
CPT/HCPCS: 93922

== ENCOUNTER → 2019-02-13 | Outpatient (CLI) | payer MEDICARE, OTHER ==
[~2019-02-13] MED LIST changes: +HOLD METFORMIN - RECEIVED CONTRAST 20 ML VIAL IV SCH; +IOHEXOL 350 MG/ML 100 ML (OMNIPAQUE 350) VIAL IV ONE; +NS 100 ML (IVPB) BAG IV ONE
[2019-02-13 13:51] LABS: BASOPHILS % (AUTO) 0 % (0-10); EOSINOPHILS # (AUTO) 0.1 10^3/uL (0.0-0.3); EOSINOPHILS % (AUTO) 1 % (0-10); HEMATOCRIT 44 % (35-52); HEMOGLOBIN 14.5 G/DL (11.5-16.0); LYMPHOCYTES % (AUTO) 28 % (12-44); MEAN CORPUSCULAR HEMOGLOBIN 32 PG (25-34); MEAN CORPUSCULAR HGB CONC 33 G/DL (32-36); MEAN CORPUSCULAR VOLUME 97 FL (80-99); MONOCYTES # (AUTO) 0.6 X 10^3 (0.0-1.0); MONOCYTES % (AUTO) 9 % (0-12); NEUTROPHILS # (AUTO) 4.2 X 10^3 (1.8-7.8); NEUTROPHILS % (AUTO) 61 % (42-75); PLATELET COUNT 352 10^3/uL (130-400); RED CELL DISTRIBUTION WIDTH 14.4 % (10.0-14.5); WHITE BLOOD COUNT 6.9 10^3/uL (4.3-11.0)
[2019-02-13 14:21] LABS: BILIRUBIN,TOTAL 0.3 MG/DL (0.1-1.0); CALCIUM 9.8 MG/DL (8.5-10.1); CREATININE SERUM 0.99 MG/DL (0.60-1.30); POTASSIUM 4.2 MMOL/L (3.6-5.0); TOTAL PROTEIN 6.6 GM/DL (6.4-8.2)
--- NOTE | 2019-02-13 16:46 | Diagnostic Imaging Report ---
PROCEDURE: CT chest with contrast only. TECHNIQUE: Multiple contiguous axial images were obtained through the chest after administration of intravenous contrast. Auto Exposure Controls were utilized during the CT exam to meet ALARA standards for radiation dose reduction. INDICATION: Lung cancer. Surveillance imaging. COMPARISON: CT chest from 08/08/2018. FINDINGS: Lungs and airway: No endoluminal nodule within the trachea. Status post left upper lobectomy. Compensatory hyperaeration of the left lower lobe is present. No pulmonary mass, nodule, or consolidation. Mild centrilobular emphysema is unchanged. Pleura: No pleural effusion or pneumothorax. Heart and mediastinum: No supraclavicular or axillary lymphadenopathy. No mediastinal, hilar, or juxtaphrenic lymphadenopathy. Subcentimeter right lower paratracheal lymph node has mildly decreased in size, now measuring approximately 0.5 cm (previously 0.6 cm). Subcarinal lymph node is also decreased in size measuring 0.7 cm (previously 1.0 cm). Heart remains mildly enlarged. No pericardial effusion. Dense mitral annulus calcifications are present. Coronary artery calcifications are unchanged. Normal-caliber thoracic aorta. Upper abdomen: No features of metastatic disease in the upper abdomen. Fluid and air-filled diverticulum arises from the second portion of the duodenum. Musculoskeletal: No concerning focal osseous lesion in the chest. IMPRESSION: 1. No features of local recurrence of lung cancer. Status post left upper lobectomy. Dictated by: Dictated on workstation # [id number]
== END ==
LOC: RAD 13:29
PROVIDERS: ATTEND Internal Medicine Hematology & Oncology
DX: C34.92 Malignant neoplasm of unspecified part of left bronchus or lung (principal); Z90.2 Acquired absence of lung [part of]
CPT/HCPCS: 36415; 71260; 80053; 85025

== ENCOUNTER 2019-03-16 13:20 | Inpatient (IN) | payer MEDICARE, OTHER ==
[~2019-03-16] VITALS: Ht 165.1 cm; Wt 84.6 kg
[2019-03-16 13:20] VITALS: BP 134/78
[~2019-03-16 13:20] MED LIST changes: -HOLD METFORMIN - RECEIVED CONTRAST 20 ML VIAL IV SCH; -IOHEXOL 350 MG/ML 100 ML (OMNIPAQUE 350) VIAL IV ONE; -NS 100 ML (IVPB) BAG IV ONE
--- NOTE | 2019-03-16 13:27 | NUR ---
Admitted to room 224-1, with an admitting diagnosis of THR, on 03/16/19 from [place] via , accompanied by family].YUMI DIXON introduced to surroundings, call light, bed controls, phone, TV, temperature control, lights, meal times, smoking policy, visitor policy, side rail policy, bathrooms and showers. Patient Rights given to patient in the handbook.YUMI DIXON verbalizes understanding that [facility] is not responsible for the loss or damage to any personal effects or valuables that are kept in the patients posession during their hospitalization. The following Patient Care Plans were discussed with the : Discharge Planning, ,, and . YUMI DIXON verbalizes understanding of Interdisciplinary Patient Education. Patient and/or family were informed about the Rapid Response Team and its purpose. Patient received Patient Rights Booklet, which includes Privacy Act Statement and Data Collection Information Summary.
--- NOTE | 2019-03-16 14:02 | History & Physical ---
[facility]RIST[facility] 03/16/19 1402: History of Present Illness History of Present Illness Reason for visit/HPI L TKA Ms. Arriaga is a 74 y/o female with a PMH of COPD, HTN, CAD, and hyperlipidemia who presents to the rehab unit s/p L TKA performed by Dr. Anderson on 03/14. She had a long history of L knee pain. She described the pain as a persistent popping and grinding. A diagnosis of severe Osteoarthritis was made by Dr. Anderson with a decision to move forward with a Left Total Knee replacement. Her post-op course has been uneventful. She classifies her current pain level as a 6/10 while working with OT. She lives alone in a single story home without internal stairs. There are a total of 3 steps needed to traverse in order to enter the home. 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 Her goals are to regain her independence with Date of Admission Mar 16, 2019 at 13:20 I consulted on this patient on 03/16/19 13:56 Attending Physician Eugenia Thompson DO Admitting Physician Teresa Gonzalez MD Consult Allergies and Home Medications Allergies Coded Allergies: Sulfa (Sulfonamide Antibiotics) (Unverified Allergy, Unknown, 02/10/06) lisinopril (Unverified Allergy, Unknown, 11/15/13) Home Medications Amlodipine Besylate 10 Mg Tablet, 10 MG PO DAILY, (Reported) Apixaban 5 Mg Tablet, 5 MG PO BID, (Reported) Aspirin 81 Mg Tab.chew, 81 MG PO DAILY, (Reported) Atorvastatin Calcium 10 Mg Tablet, 10 MG PO Q48H, (Reported) Calcium Carbonate/Vitamin D3 1 Each Tablet, 1 TAB PO DAILY, (Reported) Cholecalciferol (Vitamin D3) 2,000 Unit Capsule, 2,000 UNIT PO DAILY, (Reported) L.acidoph & Paracasei,B.lactis 1 Each Capsule, 1 CAP PO DAILY, (Reported) Metoprolol Tartrate 100 Mg Tablet, 100 MG PO BID, (Reported) Multivitamin 1 Each Tablet, 1 TAB PO DAILY, (Reported) [place] 3 Polyunsat Fatty Acids 1,000 Mg Cap, 1,000 MG PO BID, (Reported) Pantoprazole Sodium 40 Mg Tablet.dr, 40 MG PO DAILY, (Reported) Valsartan 320 Mg Tablet, 320 MG PO DAILY, (Reported) Past [id number]-[id number]-Rbqcuf Hx Patient Social History Employed/Student: part-time employed Smoking Status: Current Everyday Smoker Cigaretts per day: 10 Type Used: Cigarettes Immunizations Up To Date Date of Pneumonia Vaccine: Nov 15, 2009 Date of Influenza Vaccine: Jun 16, 2017 Respiratory Yes COPD Currently Using BIPAP: No Cardiovascular Yes Hypertension Neurological No Reproductive System : No Gastrointestinal Yes Gastroesophageal Reflux, Hiatal Hernia Musculoskeletal Yes Chronic Back Pain Endocrine History of Endocrine Disorders: No HEENT History of HEENT Disorders: No Cancer No Lung Type of Treatment: Radiation, Surgical Intervention Cancer Comment: Left Upper lobe pulmonary nodules (benign but 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) Psychosocial History of Psychiatric Problem: Yes Behavioral Health Disorders: Depression Integumentary History of Skin or Integumenta: No Family Medical History Significant Family History: Heart Disease, Cancer, Diabetes, Hypertension, Stroke Review of Systems Musculoskeletal: see HPI All Other Systems Reviewed Negative Unless Noted: Yes Physical Exam Vital Signs Vital Signs - First Documented 03/16/19 13:20 Temp 98.0 Pulse 76 Resp 20 B/P (MAP) 134/78 (96) Pulse Ox 97 O2 Delivery Room Air Capillary Refill : Height, Weight, BMI Height: 5'5.00" Weight: 187lbs. 8.0oz. 85.676313kg; 31.2 BMI Method: General Appearance: No Apparent Distress Eyes: Bilateral Eye Normal Inspection, Bilateral Eye PERRL, Bilateral Eye EOMI, Bilateral Eye Abnormal EOM, Bilateral Eye Abnormal Pupil, Bilateral Eye Conjunctivae Pale, Bilateral Eye Lid Inflammation, Bilateral Eye Photophobia, Bilateral Eye Scleral Icterus, Bilateral Eye Other HEENT: PERRL/EOMI, TMs Normal, Normal ENT Inspection, Pharynx Normal Cardiovascular: Normal Peripheral Pulses Gastrointestinal: Normal Bowel Sounds, No Organomegaly, No Pulsatile Mass, Non Tender, Soft Rectal: Deferred Back: Normal Inspection, No CVA Tenderness, No Vertebral Tenderness Extremity: Normal Capillary Refill, Normal Inspection, Normal Range of Motion, Non Tender, No Calf Tenderness Neurologic/Psychiatric: Alert, Oriented x3, No Motor/Sensory Deficits, Normal Mood/Affect, 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 I reviewed and verified all information documented by the medical student and made modifications to such information, when appropriate. I personally performed the physical exam and medical decision making. Eugenia Alcantarner, Mar 18, 2019,15:40 Date of Admission 03/16/19 Time Seen by a Provider: 00:00 Allergies and Home Medications Allergies Coded Allergies: Sulfa (Sulfonamide Antibiotics) (Unverified Allergy, Unknown, 02/10/06) lisinopril (Unverified Allergy, Unknown, 11/15/13) Home Medications Amlodipine Besylate 10 Mg Tablet, 10 MG PO DAILY, (Reported) Apixaban 5 Mg Tablet, 5 MG PO BID, (Reported) Aspirin 81 Mg Tab.chew, 81 MG PO DAILY, (Reported) Atorvastatin Calcium 10 Mg Tablet, 10 MG PO Q48H, (Reported) Calcium Carbonate/Vitamin D3 1 Each Tablet, 1 TAB PO DAILY, (Reported) Cholecalciferol (Vitamin D3) 2,000 Unit Capsule, 2,000 UNIT PO DAILY, (Reported) L.acidoph & Paracasei,B.lactis 1 Each Capsule, 1 CAP PO DAILY, (Reported) Metoprolol Tartrate 100 Mg Tablet, 100 MG PO BID, (Reported) Multivitamin 1 Each Tablet, 1 TAB PO DAILY, (Reported) [place] 3 Polyunsat Fatty Acids 1,000 Mg Cap, 1,000 MG PO BID, (Reported) Pantoprazole Sodium 40 Mg Tablet.dr, 40 MG PO DAILY, (Reported) Valsartan 320 Mg Tablet, 320 MG PO DAILY, (Reported) Patient Home Medication List Home Medication List Reviewed: Yes Past Gfhqsmo-Jffnjg-Xvsjdh Hx Patient Social History Marrital Status: single Employed/Student: part-time employed Smoking Status: Current Everyday Smoker Review of Systems Constitutional: see HPI Physical Exam General Appearance: No Apparent Distress, WD/WN, Chronically ill Respiratory: Chest Non Tender, No Accessory Muscle Use, No Respiratory Distress, Wheezing Assessment/Plan Assessment and Plan Problems: (1) Status post left knee replacement Status: Acute Admission Diagnosis Admission Status: Inpatient Order (span 2 midnights) Reason for Inpatient Admission: IRF Supervisory-Addendum Brief Verification & Attestation Participated in pt care: history, MDM, physical Personally performed: exam, history, MDM, supervision of care Care discussed with: Medical Student Procedures: n/a Results interpretation: Verified all documentation Verification and Attestation of Medical Student E/M Service A medical student performed and documented this service in my presence. I rev iewed and verified all information documented by the medical student and made modifications to such information, when appropriate. I personally performed the physical exam and medical decision making. Eugenia Thompson, Mar 18, 2019,15:41 [facility] Mar 16, 2019 14:02 EUGENIA THOMPSON DO Mar 17, 2019 21:44
--- NOTE | 2019-03-16 14:12 | Occupational Therapy Eval ---
OT Evaluation-General/PLF Medical Diagnosis Admission Date Mar 16, 2019 at 13:20 Medical Diagnosis: Left TKR Onset Date: Mar 14, 2019 Therapy Diagnosis Therapy Diagnosis: Decreased ADL skills Height/Weight Height (Feet): 5 Height (Inches): 5.00 Weight (Pounds): 187 Weight (Ounces): 8.0 Weight Bear Status Weight Bearing Restriction: Weight Bearing/Tolerated Referral Physician: Dr. Crow Referral Reason: Activity Tolerance, Self Care, Evaluation/Treatment, Strengthening/ROM Medical History Current History Elective TKR on 03-14-19 Reviewed History: Yes Social History Home: Single Level Current Living Status: Spouse Entry Into Home: Stairs With Railing Steps Into Home: 3 ADL-Prior Level of Function Therapy Code Descriptions/Definitions Functional [place] Measure: 0=Not Assessed/NA 4=Minimal Assistance 1=Total Assistance 5=Supervision or Setup 2=Maximal Assistance 6=Modified [place] 3=Moderate Assistance 7=Complete [place] Therapy Quality Codes: 6 Independent with activity with or without an assistive device 5 Patient requires set up or clean up by helper. Patient completes activity by themselves 4 Supervision or touching assist (CGA). [place] provide cues , steadying assist 3 The helper provides less than half the effort to complete the activity 2 The helper provides more than half the effort to complete the activity 1 Dependent. The helper does all the effort to complete an activity 7 Patient refused to complete or attempt activity 9 The patient did not perform the activity before the current illness or injury 88 Not attempted due to Medical conditions or safety concerns Functional Abilities and Goals: Independent: Patient completed the activities by him/herself, with or without an assistive device, with no assistance from a helper. Needed Some Help: Patient needed partial assistance from another person to complete activities. Dependent: A helper completed the activities for the patient. Unknown: Not Applicable: ADL PLOF Comments Pt. was independent with daily tasks previous to this hospitalization. Self Care: Independent Functional Cognition: Independent DME/Equipment Comments Pt. states that she does not use AE except for bath chair that is positioned in large claw foot tub. Drive Self: Yes OT Current Status Subjective No pain reported. Appearance Pt. agrees to work with therapy. Mental Status/Objective Patient Orientation: Person, Place, Time, Situation Current Glasses/Contacts: Yes Upper Extremity ROM WFL Upper Extremity Strength WFL ADL-Treatment Lower Body Dressing (FIM): 3 Lower Body Dressing (QC): 3 On/Off Footwear (QC): 3 Toileting (FIM): 4 (CGA) Toileting Hygiene (QC): 4 Transfers (B, C, W/C) (FIM): 4 Toilet/Commode Transfer (FIM): 4 Toilet Transfer (QC): 4 Other Treatments Pt. participated in OT/PT partial co-treatment due to pt fatigue level after arrival via private transport. PT focused on mobility training while OT assisted with education of ADLs and ADL skill training. Pt. verbalizes understanding. Pt. practiced step, bed mobility, and LE dressing. Educated in OT goals and PT goals, as well as overall rehab goals to discharge home. All needs met. Education OT Patient Education: Correct positioning, Modified ADL techniques, Progress toward Goal/Update tx plan, Purpose of tx/functional activities, Reviewed precautions, Rehab process, Transfer techniques Teaching Recipient: Patient, Family Teaching Methods: Demonstration, Discussion Response to Teaching: Verbalize Understanding, Return Demonstration OT Short Term Goals Short Term Goals Time Frame: Mar 23, 2019 Eating(FIM): 5 Grooming(FIM): 5 Bathing(FIM): 5 Upper Body Dressing(FIM): 5 Lower Body Dressing(FIM): 5 Toileting(FIM): 5 Transfers (B,C,W/C) (FIM): 5 Toilet/Commode Transfer(FIM): 5 Shower Transfer(FIM): 5 Additional Short Term Goals: 1-Demonstrate ADL Tasks, 2-Verbalize Understanding, 3-ImproveStrength/Serena 1=Demonstrate adherence to instructed precautions during ADL tasks. 2=Patient will verbalize/demonstrate understanding of assistive devices/modifications for ADL. 3=Patient will improve strength/tolerance for activity to enable patient to p erform ADL's. OT Senior Care Goals Compliance Auditor Goals Time Frame: Mar 30, 2019 Eating (FIM): 6 Eating (QC): 6 Groomin Oral Hygiene (QC): 6 Bathing(FIM): 6 Shower/Bathe Self (QC): 6 Upper Body Dressing(FIM): 6 Upper Body Dressing (QC): 6 Lower Body Dressing(FIM): 6 Lower Body Dressing (QC): 6 On/Off Footwear (QC): 6 Toileting(FIM): 6 Toileting Hygiene (QC): 6 Transfers (B,C,W/C) (FIM): 6 Toilet/Commode Transfer(FIM): 6 Toilet/Commode Transfer (QC): 6 Shower Transfer(FIM): 5 Additional Goals: 1-Demonstrate ADL Tasks, 2-Verbalize Understanding, 3- ImproveStrength/Serena 1=Demonstrate adherence to instructed precautions during ADL tasks. 2=Patient will verbalize/demonstrate understanding of assistive devices /modifications for ADL. 3=Patient will improve strength/tolerance for activity to enable patient to perform ADL's. OT Education/Plan Problem List/Assessment Assessment: Decreased Activ Tolerance, Dependent Transfers, Impaired Bed Mobility, Impaired I ADL's, Impaired Self-Care Skills Discharge Recommendations Plan/Recommendations: Continue POC Therapy D/C Recommendations: Home w/ Family Support, Occupational Therapy Home Care Equpiment Recommendations-D/C: Extended Bath Bench, Hip Kit Treatment Plan/Plan of Care Treatment,Training & Education: Yes Patient would benefit from OT for education, treatment and training to promote independence in ADL's, mobility, safety and/or upper extremity function for ADL's. Plan of Care: ADL Retraining, Functional Mobility, Group Exercise/Act as Ind, UE Funct Exercise/Act Treatment Duration: Mar 30, 2019 Frequency: At least 5 of 7 days/Wk (IRF) Estimated Hrs Per Day: 1.5 hours per day Agreement: Yes Rehab Potential: Good Time/GCodes Start Time: 13:25 Stop Time: 13:50 Total Time Billed (hr/min): 25 Billed Treatment Time [id number] OT eval [id number] FA x 15minutes (co-treat with PT. Please see above note for designated roles.) JADEN ROBB OT Mar 16, 2019 14:12
--- NOTE | 2019-03-16 14:20 | Physical Therapy Evaluation ---
PT Evaluation-General Medical Diagnosis Admission Date Mar 16, 2019 at 13:20 Medical Diagnosis: OA left knee Onset Date: Mar 16, 2019 Therapy Diagnosis Therapy Diagnosis: abnormal gait Height/Weight Height (Feet): 5 Height (Inches): 5.00 Weight (Pounds): 187 Weight (Ounces): 8.0 Precautions Precautions/Isolations: Standard Precautions Weight Bear Status Right Lower Extremity: Right Full Weight Bearing Left Lower Extremity: Left Weight Bearing/Tolerated Referral Physician: Mignon Reason for Referral: Evaluation/Treatment Medical History Pertinent Medical History: Atrial Fib, COPD, Smoking Current History Elective left TKR by Dr Anderson at [facility] in [place] on 03/14/2019 Reviewed History: Yes Social History Home: Single Level Current Living Status: Alone Entry Into Home: Stairs With Railing PT Steps Into Home: 3 PT Steps Inside Home: 0 Prior/Core FIM Prior Level of Function Therapy Code Descriptions/Definitions Functional [place] Measure: 0=Not Assessed/NA 4=Minimal Assistance 1=Total Assistance 5=Supervision or Setup 2=Maximal Assistance 6=Modified [place] 3=Moderate Assistance 7=Complete [place] Therapy Quality Codes: 6 Independent with activity with or without an assistive device 5 Patient requires set up or clean up by helper. Patient completes activity by themselves 4 Supervision or touching assist (CGA). [place] provide cues , steadying assist 3 The helper provides less than half the effort to complete the activity 2 The helper provides more than half the effort to complete the activity 1 Dependent. The helper does all the effort to complete an activity 7 Patient refused to complete or attempt activity 9 The patient did not perform the activity before the current illness or injury 88 Not attempted due to Medical conditions or safety concerns Functional Abilities and Goals: Independent: Patient completed the activities by him/herself, with or without an assistive device, with no assistance from a helper. Needed Some Help: Patient needed partial assistance from another person to comp lete activities. Dependent: A helper completed the activities for the patient. Unknown: Not Applicable: Bed Mobility: 7 (HOwever, pt reports she has been sleeping in her recliner for some time. ) Transfers (B,C,W/C) (FIM): 7 Gait: 7 Stairs: 7 Indoor Mobility (Ambulation): Independent Stairs: Independent Pt has a tub chair and FWW at home. She does not use them currently. PT Evaluation-Current Subjective Pt agrees to PT; reports she did have therapy this morning and is feeling tired this afternoon. Pain Numeric Pain Scale: 5-Moderate Pain Location: Left Location Body Site: Knee Pain Description: Ache (sore) Pt/Family Goals Her goal is to return home at a mod indep level. Objective Patient Orientation: Person, Place, Time, Situation Problem Solving: Good ROM/Strength ROM Lower Extremities R LE strength and ROM WNL: L LE strength is grossly 3/5; ROM WNL except knee which is 0-15-60 AROM. Pt able to achieve 0-10-70 AAROM left. Strenght Lower Extremities see above Integumentary/Posture Integumentary Refer to nursing notes. Bowel Incontinence: No Bladder Incontinence: No Posture symmetrical Neuromuscular (Tone, Coordination, Reflexes) intact and without noted deficit Sensory Vision: Functional Hearing: Functional Hand Dominance: Right Sensation Right Lower Extremit: Intact Sensation Left Lower Extremity: Intact Transfers Therapy Code Descriptions/Definitions Functional [place] Measure: 0=Not Assessed/NA 4=Minimal Assistance 1=Total Assistance 5=Supervision or Setup 2=Maximal Assistance 6=Modified [place] 3=Moderate Assistance 7=Complete [place] Therapy Quality Codes: 6 Independent with activity with or without an assistive device 5 Patient requires set up or clean up by helper. Patient completes activity by themselves 4 Supervision or touching assist (CGA). [place] provide cues , steadying assist 3 The helper provides less than half the effort to complete the activity 2 The helper provides more than half the effort to complete the activity 1 Dependent. The helper does all the effort to complete an activity 7 Patient refused to complete or attempt activity 9 The patient did not perform the activity before the current illness or injury 88 Not attempted due to Medical conditions or safety concerns Transfers (B, C, W/C) (FIM): 4 Roll Left to Right (QC): 4 Supine to/from Sit: 4 (assist with left leg in and out of bed. ) Sit to/from Stand: 4 (min assist to stand up) Sit to Lying (QC): 3 Lying to Sitting/Side of Bed(Q: 3 Sit to Stand (QC): 3 Chair/Nve-ei-Imrdq Xfer(QC): 4 Car Transfer (QC): 3 (assist to get both legs in and out of the car ; assist to stand up) Pt requires skilled cues for sequencing and hand placement. Gait Does the Patient Walk?: Yes Mode of Locomotion: Walk Anticipated Mode of Locomotion: Walk Gait (FIM): 2 Distance (FIM): 6=677-07 ft Walk 10 feet (QC): 4 Walk 50 ft with 2 Turns(QC): 4 Walk 150 ft (QC): 88 (pt did not walk this distance at evaluation. ) Walking 10ft/uneven surface-QC: 4 Distance: 100 ft Gait Level of Assist: 4 (CGA for safety.) Gait Assistive Device: Cane Large Base Quad Comments/Gait Description Pt walks with left knee in a flexed positon with a step to gait right; antalgic and decreased speed with ambulation. Requires CGA for safety due to strength deficit and limited ROM impairing normalized gait pattern. Stairs Stairs (FIM): 1 #of Steps: 1 1 Step (curb) (QC): 4 (min assist due to LE weakness and impaired ROM>) 4 Steps (QC): 88 Assistive Device: Walker Balance Sitting Static: Good Sitting Dynamic: Good Standing Static: Fair Standing Dynamic: Fair Picking up an Object (QC): 88 (unsafe to attempt) Treatment Functional gait training as well as multiple sit to stand reps; in/out of bed x 2 with training on functional transfer and sequencing. Addressed functional standing static and dynamic balance training and transfer in/out of the shower. Co treat with OT for part of treatment due to need of 2 clinicians to safely achieve the functional transfers and mobilty with OT addressing use and placement of UE as PT addressed the gross transfer and standing static and dynamic balance. Pt fatigued and at greater fall risk and requiring more cues, therefore 2 skilled clinicians intervened at this time. CPM measured and applied 5-0-66 degrees Assessment/Needs Pt presents post left elective TKR. She presents with limited functional ROM and strength as well as balance deficits that impair her ability to safely and effectively transfer or ambulate. She lives alone and is unable to care for herself at this time. She will benefit from skilled PT to address mobiltiy to allow her to return home at a mod indep levell. Rehab Potential: Good PT Short Term Goals Short Term Goals Time Frame: Mar 23, 2019 Transfers (B,C,W/C) (FIM): 5 Gait (FIM): 5 PT Nursing Home Goals Nursing Home Goals PT Nursing Home Goals Time Frame: Mar 30, 2019 Transfers (B,C,W/C) (FIM): 7 Sit to Lying (QC): 6 Lying-Sitting on Side/Bed(QC): 6 Sit to Stand (QC): 6 Roll Left to Right (QC): 6 Chair/Gcg-pi-Ebzyr Xfer(QC): 6 Car Transfer (QC): 6 Does the Patient Walk: Yes Gait (FIM): 6 Gait distance (FIM): 3=150 ft Distance: 300 ft Walk 10 feet (QC): 6 Walk 10ft-Uneven Surface(QC): 6 Walk 50ft with 2 Turns (QC): 6 Walk 150 ft (QC): 6 Gait Assistive Device: FWW Does the Pt use WC or Scooter?: No Stairs (FIM): 5 # of Steps: 4 1 Step (curb) (QC): 6 4 Steps (QC): 6 12 Steps (QC): 10 Picking up an Object (QC): 4 PT Plan Problem List Problem List: Activity Tolerance, Functional Strength, Safety, Balance, Gait, Transfer, Bed Mobility, ROM Treatment/Plan Treatment Plan: Continue Plan of Care Treatment Plan: Bed Mobility, Education, Functional Activity Serena, Functional Strength, Group Therapy, Gait, Safety, Therapeutic Exercise, Transfers Treatment Duration: Mar 30, 2019 Frequency: At least 5 of 7 days/Wk (IRF) Estimated Hrs Per Day: 1.5 hours per day Patient and/or Family Agrees t: Yes Safety Risks/Education Patient Education: Transfer Techniques, Safety Issues Teaching Recipient: Patient Teaching Methods: Demonstration, Discussion Response to Teaching: Reinforcement Needed Discharge Recommendations Therapy D/C Recommendations: Physical Therapy Home Care Time/GCodes Time In: 1315 Time Out: 1410 (OT eval was [id number]) Total Billed Treatment Time: 45 Total Billed Treatment visit EVM 10 FA 35 REYES GREWAL PT Mar 16, 2019 14:20
--- NOTE | 2019-03-16 14:38 | Occupational Ther Daily Note ---
OT Current Status-Daily Note Subjective Pt alert, sitting EOB. Pt agrees to therapy. Pt c/o pain though does not rate. Mental Status/Objective Patient Orientation: Person, Place, Time, Situation Therapy Code Descriptions/Definitions Functional [place] Measure: 0=Not Assessed/NA 4=Minimal Assistance 1=Total Assistance 5=Supervision or Setup 2=Maximal Assistance 6=Modified [place] 3=Moderate Assistance 7=Complete [place] ADL-Treatment PT/OT co-treat, skills of 2 clinicians are required to safely achieve the functional transfers and mobility with OT addressing use and placement of UE as PT addressed the gross transfer and standing static and dynamic balance. Pt fatigued and at greater fall risk and requiring more cues, therefore 2 skilled clinicians intervened at this time. PT working on CPM fitting, functional transfers, bed mobility and ambulation. PT working on dynamic standing at sink while OT working on grooming. OT working on functional transfers, bed mobility and ADLs. After therapy, pt lying in bed with call light/phone in reach. All needs met in room. Therapy Code Descriptions/Definitions Functional [place] Measure: 0=Not Assessed/NA 4=Minimal Assistance 1=Total Assistance 5=Supervision or Setup 2=Maximal Assistance 6=Modified [place] 3=Moderate Assistance 7=Complete [place] Therapy Quality Codes: 6 Independent with activity with or without an assistive device 5 Patient requires set up or clean up by helper. Patient completes activity by themselves 4 Supervision or touching assist (CGA). [place] provide cues , steadying assist 3 The helper provides less than half the effort to complete the activity 2 The helper provides more than half the effort to complete the activity 1 Dependent. The helper does all the effort to complete an activity 7 Patient refused to complete or attempt activity 9 The patient did not perform the activity before the current illness or injury 88 Not attempted due to Medical conditions or safety concerns Grooming (FIM): 4 (CGA in standing using counter for stability.) Oral Hygiene (QC): 4 Bathing (FIM): 4 (Using grabbars, shower bench and hand held shower completes all areas except buttocks in sitting. Assist with L lower leg and buttocks. CGA in standing.) Bathing Location: L Arm, R Arm, L Upper Leg, R Upper Leg, R Lower Leg (including foot), Chest, Abdomen, Perineal Area Shower/Bathe Self (QC): 3 Upper Body (FIM): 5 (After set up, pt completes by self.) Upper Body Dressing (QC): 5 Lower Body Dressing (FIM): 4 (After set up, pt able to initiate clothing over feet except L sock then hike over hips by self with CGA in standing using FWW. Assist with L sock and PAUL hose.) Lower Body Dressing (QC): 3 On/Off Footwear (QC): 3 Shower Transfer(FIM): 4 (Min A using FWW, grabbars and shower bench.) OT Short Term Goals Short Term Goals Time Frame: Mar 23, 2019 Eating(FIM): 5 Grooming(FIM): 5 Bathing(FIM): 5 Upper Body Dressing(FIM): 5 Lower Body Dressing(FIM): 5 Toileting(FIM): 5 Transfers (B,C,W/C) (FIM): 5 Toilet/Commode Transfer(FIM): 5 Shower Transfer(FIM): 5 Additional Short Term Goals: 1-Demonstrate ADL Tasks, 2-Verbalize U nderstanding, 3-ImproveStrength/Serena 1=Demonstrate adherence to instructed precautions during ADL tasks. 2=Patient will verbalize/demonstrate understanding of assistive devices/modifications for ADL. 3=Patient will improve strength/tolerance for activity to enable patient to perform ADL's. OT Halfway Goals Halfway Goals Time Frame: Mar 30, 2019 Eating (FIM): 6 Eating (QC): 6 Groomin Oral Hygiene (QC): 6 Bathing(FIM): 6 Shower/Bathe Self (QC): 6 Upper Body Dressing(FIM): 6 Upper Body Dressing (QC): 6 Lower Body Dressing(FIM): 6 Lower Body Dressing (QC): 6 On/Off Footwear (QC): 6 Toileting(FIM): 6 Toileting Hygiene (QC): 6 Transfers (B,C,W/C) (FIM): 6 Toilet/Commode Transfer(FIM): 6 Toilet/Commode Transfer (QC): 6 Shower Transfer(FIM): 5 Additional Goals: 1-Demonstrate ADL Tasks, 2-Verbalize Understanding, 3-ImproveStrength/Serena 1=Demonstrate adherence to instructed precautions during ADL tasks. 2=Patient will verbalize/demonstrate understanding of assistive devices/modifications for ADL. 3=Patient will improve strength/tolerance for activity to enable patient to perform ADL's. OT Education/Plan Problem List/Assessment Assessment: Decreased Activ Tolerance, Decreased Safety Aware, Decreased UE Strength, Impaired Bed Mobility, Impaired Coordination, Impaired Funct Balance, Impaired I ADL's, Impaired Self-Care Skills Discharge Recommendations Plan/Recommendations: Continue POC Treatment Plan/Plan of Care Patient would benefit from OT for education, treatment and training to promote independence in ADL's, mobility, safety and/or upper extremity function for ADL's. Plan of Care: ADL Retraining, Functional Mobility, Group Exercise/Act as Ind, UE Funct Exercise/Act Treatment Duration: Mar 30, 2019 Frequency: At least 5 of 7 days/Wk (IRF) Estimated Hrs Per Day: 1.5 hours per day Agreement: Yes Rehab Potential: Good Time/GCodes Start Time: 13:50 Stop Time: 14:55 Total Time Billed (hr/min): 65 Billed Treatment Time 1 visit-FA 2 (35 min) ADL 2 (30 min) co-treat with PT for 65 min REYES RODRIGUEZ Mar 16, 2019 14:38
[2019-03-16] MEDS ORDERED: OMG1KC PO (15:16)
[2019-03-16] MEDS ORDERED: AMLO10TA7 PO (15:16)
[2019-03-16] MEDS ORDERED: HYDR-3820 PO (15:16)
[2019-03-16] MEDS ORDERED: TRAM50TA2 PO (15:16)
[2019-03-16] MEDS ORDERED: MULT1TAB69 PO (15:16)
[2019-03-16] MEDS ORDERED: CHOL20003 PO (15:16)
[2019-03-16] MEDS ORDERED: PANT40TA3 PO (15:16)
[2019-03-16] MEDS ORDERED: METO100T12 PO (15:16)
[2019-03-16] MEDS ORDERED: CALC-6 PO (15:16)
[2019-03-16] MEDS ORDERED: SENN-148 PO (15:16)
[2019-03-16] MEDS ORDERED: ATOR10TA66 PO (15:16)
[2019-03-16] MEDS ORDERED: ASPI-983 PO (15:16)
[2019-03-16] MEDS ORDERED: VALS320T15 PO (15:16)
[2019-03-16] MEDS ORDERED: ASPI-999 PO (15:19)
[2019-03-16] MEDS ORDERED: APIX5TAB PO (15:21)
--- NOTE | 2019-03-16 15:54 | Physical Therapy Daily Note ---
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 Pt agrees to PT/OT co-treat. Pain Numeric Pain Scale: 5-Moderate Pain Location: Incisional, Left Location Body Site: Knee Pain Description: Ache, Tightness Mental Status Patient Orientation: Person, Place, Time, Situation Attachments: Polar Pack, Other-See Comments (CPM) Transfers Therapy Code Descriptions/Definitions Functional [place] Measure: 0=Not Assessed/NA 4=Minimal Assistance 1=Total Assistance 5=Supervision or Setup 2=Maximal Assistance 6=Modified [place] 3=Moderate Assistance 7=Complete [place] Therapy Quality Codes: 6 Independent with activity with or without an assistive device 5 Patient requires set up or clean up by helper. Patient completes activity by themselves 4 Supervision or touching assist (CGA). [place] provide cues , steadying assist 3 The helper provides less than half the effort to complete the activity 2 The helper provides more than half the effort to complete the activity 1 Dependent. The helper does all the effort to complete an activity 7 Patient refused to complete or attempt activity 9 The patient did not perform the activity before the current illness or injury 88 Not attempted due to Medical conditions or safety concerns Scootin Supine to/from Sit: 4 Sit to/from Stand: 4 Sit to Lying (QC): 4 Sit to Stand (QC): 4 Weight Bearing Right Lower Extremity: Right Full Weight Bearing Left Lower Extremity: Left Weight Bearing/Tolerated Gait Training Does the Patient Walk?: Yes Gait (FIM): 2 Distance: 15' Walk 10 feet (QC): 5 Gait Level of Assist: 5 Gait Persons Needed: 1 Gait Assistive Device: FWW Treatments PT/OT co-treat, skills of 2 clinicians are required to safely achieve the functional transfers and mobility with OT addressing use and placement of UE as PT addressed the gross transfer and standing static and dynamic balance. Pt fatigued and at greater fall risk and requiring more cues, therefore 2 skilled clinicians intervened at this time. PT working on CPM fitting, functional transfers, bed mobility and ambulation. PT working on dynamic standing at sink while OT working on grooming. OT working on functional transfers, bed mobility and ADLs. After therapy, pt lying in bed with call light/phone in reach. All needs met in room. Assessment Current Status: Good Progress Pt is moving well but PT will work on activity tolerance and flexion of L knee for better mobility. PT Short Term Goals Short Term Goals Time Frame: Mar 23, 2019 Transfers (B,C,W/C) (FIM): 5 Gait (FIM): 5 PT Switching Operator Goals Switching Operator Goals PT Switching Operator Goals Time Frame: Mar 30, 2019 Transfers (B,C,W/C) (FIM): 7 Sit to Lying (QC): 6 Lying-Sitting on Side/Bed(QC): 6 Sit to Stand (QC): 6 Roll Left to Right (QC): 6 Chair/Bcb-xn-Bhhtz Xfer(QC): 6 Car Transfer (QC): 6 Does the Patient Walk: Yes Gait (FIM): 6 Gait distance (FIM): 3=150 ft Distance: 300 ft Walk 10 feet (QC): 6 Walk 10ft-Uneven Surface(QC): 6 Walk 50ft with 2 Turns (QC): 6 Walk 150 ft (QC): 6 Gait Assistive Device: FWW Does the Pt use WC or Scooter?: No Stairs (FIM): 5 # of Steps: 4 1 Step (curb) (QC): 6 4 Steps (QC): 6 12 Steps (QC): 10 Picking up an Object (QC): 4 PT Plan Problem List Problem List: Activity Tolerance, Functional Strength, Gait, Transfer, Bed M obility Treatment/Plan Treatment Plan: Continue Plan of Care Treatment Plan: Bed Mobility, Education, Functional Activity Serena, Functional Strength, Group Therapy, Gait, Safety, Therapeutic Exercise, Transfers Treatment Duration: Mar 30, 2019 Frequency: At least 5 of 7 days/Wk (IRF) Estimated Hrs Per Day: 1.5 hours per day Patient and/or Family Agrees t: Yes Safety Risks/Education Patient Education: Gait Training, Transfer Techniques, Correct Positioning, S afety Issues Teaching Recipient: Patient Teaching Methods: Discussion Response to Teaching: Verbalize Understanding Time/GCodes Time In: 1410 Time Out: 1455 Total Billed Treatment 1, FA x3 (45m) G Codes Necessary: MONALISA Bridges DEAN OF FACULTY Mar 16, 2019 15:54
--- NOTE | 2019-03-16 16:37 | NUR ---
UPDATED MED REC WITH DISCHARGE INSTRUCTIONS FROM [facility]. THE FOLLOWING CHANGES WERE MADE AT THAT DISCHARGE: START TAKING: HYDROCODONE 10-325MG 1 Q4H PRN TRAMADOL 50MG 1 Q6H PRN SENNA LAX 8.6MG BID NOTE THE DISCHARGE LIST ALSO HAD METOPROLOL SUCCINATE 100MG BID HOWEVER ACCORDING TO THE EXT MED HX PATIENT FILLED METOPROLOL TARTRATE 100MG BID, I PUT THE TARTRATE ON THE MED REC. ALSO THE ELIQUIS IS REPORTED ON THE DISCHARGE 5MG HS - PATIENT STATES SHE TAKES IT BID. THIS IS NOT ON THE EXT MED HX. I CALLED DR. FORET'S OFFICE FOR CLARIFICATION AND FIRST THEY SAID IT WAS NOT ON THE MED LIST HOWEVER AFTER LOOKING AT THE LAST NOTE IT WAS NOTED FOR SURGERY CLEARANCE AND SHE FOUND WHERE THEY HAD APPLIED FOR ASSISTANCE IN SEPTEMBER. SHE WAS GOING TO HAVE A NURSE CALL ME BACK TO CLARIFY DOSE. I HAVE NOT RECEIVED A CALL BACK AT THIS TIME AND NOW THE PHONE IS GOING TO VOICEMAIL. I CALLED AND TALKED TO NURSE JOVANNY WHO VERIFIED WITH THE PATIENT THAT SHE TAKES IT BID AT HOME. I REVIEWED IT ON THE MED REC AT THIS TIME, ALL OTHER MEDS HAVE ALREADY BEEN ORDERED BY DR. THOMPSON. WILL UPDATE TOMORROW IF DR. FORTE'S OFFICE CALLS BACK. Addendum: 03/17/19 at 1045 by RAS FLORES [facility] REMOVED THE THREE NEW PRESCRIPTIONS FROM THE MED REC AT THIS TIME. I ALSO RECEIVED A CALL FROM DR. FORTE'S OFFICE THIS MORNING VERIFYING THE ELIQUIS DOSE 5MG BID AND THE PATIENT RECEIVES IT FROM [facility].
[2019-03-16] MEDS: OMEGA 3 (FISH OIL) 1000 MG CAP PO SCH (16:52)
[2019-03-16] MEDS: HYDROcodone/APAP 10 MG/325 MG (LORTAB) TAB PO PRN ×2 (16:52→21:19)
--- NOTE | 2019-03-16 17:00 | NUR ---
COMPLAIN LEFT KNEE PAIN RATED AN "8" AND MEDICATED WITH LORTAB. UP TO BATHROOM WITH ASST. THEN TO CHAIR. KNEE HIGH TEDS ON. HAD POLAR PACK AND CPM ON PRIOR TO GETTING UP.
[2019-03-16 18:00] VITALS: BP 147/81
--- NOTE | 2019-03-16 19:00 | NUR ---
STATES PAIN GOT "OUT OF CONTROL" WITH TRANSFER TO HOSPITAL AND LONG AFTERNOON AND STILL RATES LEFT KNEE PAIN AN "8". MEDICATED WITH ULTRAM.
[2019-03-16] MEDS ORDERED: ATORVASTATIN 10 MG (LIPITOR) TABLET PO SCH (21:00)
[2019-03-16] MEDS ORDERED: SENNOSIDES 8.6 MG (SENOKOT) TAB PO SCH (21:00)
[2019-03-16] MEDS: meTOprolol TARTRATE 50 MG (LOPRESSOR) TAB PO SCH (21:17)
[2019-03-16] MEDS: APIXABAN 5 MG (ELIQUIS) TABLET PO SCH (21:17)
--- NOTE | 2019-03-16 21:57 | PM&R H&P / Post Admit Assess ---
History of Present Illness HPI/Chief Complaint Chief Complaint: Debility following left total knee replacement HPI: This is a 74yoWF pt of Dr. Gonzalez who presents to the in patient rehab unit following slow recovery from a left total knee replacement uncomplicated by Dr. Anderson. Her PCP is Dr. Gonzalez her Platform Attendant is Dr. Combs. At this current time pt has not had a BM since before surgery so well need to work on that she feels pretty drained after walking with PT today and overall has had no other events during her hospital stay. 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 At this current time pt is deemed stable for transfer by her family to in patient rehab at [facility] and had an uneventful transport to [place]. Note per Satnam Hurtado MSIV: Ms. Arriaga is a 74 y/o female with a PMH of COPD, HTN, CAD, and hyperlipidemia who presents to the rehab unit s/p L TKA performed by Dr. Anderson on 03/14. She had a long history of L knee pain. She described the pain as a persistent popping and grinding. A diagnosis of severe Osteoarthritis was made by Dr. Anderson with a decision to move forward with a Left Total Knee replacement. Her post-op course has been uneventful. She classifies her current pain level as a 6/10 while working with OT. She lives alone in a single story home without internal stairs. There are a total of 3 steps needed to traverse in order to enter the home. 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 Source: patient Exam Limitations: no limitations Date Seen 03/16/19 Time Seen by a Provider: 18:15 Attending Physician Eugenia Thompson DO PCP Teresa Gonzalez MD Referring Physician Date of Admission Mar 16, 2019 at 13:20 Home Medications & Allergies Home Medications Reviewed patient Home Medication Reconciliation performed by pharmacy medication reconciliations fibre composite technician and/or nursing. Patients Allergies have been reviewed. Allergies Allergies Coded Allergies Sulfa (Sulfonamide Antibiotics) (Unverified Allergy, Unknown, 02/10/06) lisinopril (Unverified Allergy, Unknown, 11/15/13) Past Vggkvbn-Hwzxke-Rujonj Hx Past Med/Social Hx: Reviewed Nursing Past Med/Soc Hx, Reviewed and Corrections made Patient Social History Marrital Status: single Employed/Student: part-time employed Alcohol Use: Denies Use Number of Drinks Today: 0 Recreational Drug Use: No Smoking Status: Current Everyday Smoker Cigaretts per day: 10 Type Used: Cigarettes Physical Abuse Screen: No Sexual Abuse: No Recent Foreign Travel: No Contact w/other who traveled: No Recent Hopitalizations: Yes (LEFT TOTAL KNEE REPLACEMENT -) Recent Infectious Disease Expo: No Immunizations Up To Date Date of Pneumonia Vaccine: Nov 15, 2009 Date of Influenza Vaccine: Jun 16, 2017 Seasonal Allergies Seasonal Allergies: No Past Medical History Surgeries: Orthopedic Respiratory: COPD Currently Using CPAP: No Currently Using BIPAP: No Cardiac: Hypertension : No Gastrointestinal: Gastroesophageal Reflux, Hiatal Hernia Musculoskeletal: Chronic Back Pain Are Your Blood Sugars Over 250: No Cancer: Lung What Type of Treatment Did You: Radiation, Surgical Intervention 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 but 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) Psychosocial: Depression History of Blood Disorders: No Family History Heart Disease, Cancer, Diabetes, Hypertension, Stroke Review of Systems Constitutional: see HPI, weakness EENTM: no symptoms reported Respiratory: no symptoms reported Cardiovascular: no symptoms reported Gastrointestinal: constipation Genitourinary: no symptoms reported Musculoskeletal: joint pain Skin: no symptoms reported Psychiatric/Neurological: No Symptoms Reported All Other Systems Reviewed Negative Unless Noted: Yes Physical Exam Exam Vital Signs Vital Signs Date Time Temp Pulse Resp B/P (MAP) Pulse Ox O2 Delivery O2 Flow Rate FiO2 03/17/19 05:46 97.8 67 18 133/85 (101) 95 Room Air Capillary Refill : General Appearance: No Apparent Distress, WD/WN, Chronically ill HEENT: PERRL/EOMI, TMs Normal, Normal ENT Inspection, Pharynx Normal Respiratory: Chest Non Tender, No Accessory Muscle Use, No Respiratory Distress, Crackles, Decreased Breath Sounds Cardiovascular: Regular Rate, Rhythm, No Edema, No Gallop, Normal Peripheral Pulses Gastrointestinal: Normal Bowel Sounds, No Organomegaly, No Pulsatile Mass, Non Tender, Soft Rectal: Deferred Back: Normal Inspection, No CVA Tenderness, No Vertebral Tenderness Extremity: Normal Capillary Refill, Normal Inspection, Normal Range of Motion (except right leg due to post op state), Non Tender, No Calf Tenderness Neurologic/Psychiatric: Alert, Oriented x3, No Motor/Sensory Deficits, Normal Mood/Affect, 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 Assessment/Plan Assessment and Plan Assess & Plan/Chief Complaint Assessment: Right total knee replacement POD # 3 PAF HTN HLP COPD Constipation post op Wheezing on exam ordered Nebs Plan: Monitor lungs Pain control BM regimen IRF protocols (1) Status post left knee replacement Status: Acute (2) Hypertension Status: Chronic Qualifiers: Hypertension type: essential hypertension Qualified Codes: I10 - Essential (primary) hypertension (3) COPD (chronic obstructive pulmonary disease) Status: Chronic Qualifiers: COPD type: unspecified COPD Qualified Codes: J44.9 - Chronic obstructive pulmonary disease, unspecified (4) Smoker Status: Chronic (5) Constipation Status: Acute Qualifiers: Constipation type: drug induced constipation Qualified Codes: K59.03 - Drug induced constipation (6) Anticoagulant long-term use Status: Chronic (7) CAD (coronary artery disease) Status: Chronic Qualifiers: Coronary Disease-Associated Artery/Lesion type: [place] artery [place] vs. transplanted heart: [place] heart Associated angina: without angina Qualified Codes: I25.10 - Atherosclerotic heart disease of [place] coronary artery without angina pectoris (8) Debility Status: Acute (9) Paroxysmal atrial fibrillation Post Admission Physician Asses Date seen by provider: Mar 16, 2019 Time seen by provider: 18:15 Admisison Dx: (1) Status post left knee replacement Status: Acute The preadmission screen agrees with the post admission assessment that the patient is a good candidate for inpatient rehabilitation. The patient will have a comprehensive program of inpatient rehabilitation with a goal of maximizing level of functional independence prior to discharge home with family. The patient will have PT/OT ninety minutes per day, each discipline, five days a week for gait, strengthening, conditioning, balance, ADLs, any patient/family/caregiver training as necessary. Speech therapy to do cognitive assessment and treat as indicated. Rehabilitation nursing to assist with bowel, bladder, skin, wound care, medication administration, pain management. Skating Rink Manager to assist with discharge planning, community reentry. SCD's for DVT prophylaxis. She appears to be well motivated to participate in three hours of therapy a day. She should be able to tolerate three hours of therapy a day from a medical standpoint. She should benefit from the three hours of therapy a day. She has a reasonable discharge plan, reasonable discharge rehabilitation goals and a supportive family. She has various comorbidities that need to be closely monitored with medications and treatments adjusted on a daily basis as needed. These include: see list Barriers to discharge for this patient who had been independent prior to this are for her to be modified independent to supervision for ADLs and mobility skills prior to discharge home with family, so as to lessen the burden of the caregivers. Risks for this patient include: 1. Fall 2. Fracture 3. DVT 4. Pulmonary embolism 5. Wound infection 6. Skin breakdown 7. Contractures 8. Poorly controlled pain 9. Urinary retention 10. UTI 11. Respiratory infection 12. Aspiration Estimated Length of Stay: 5-7 days Prognosis: Rehab prognosis appears good for goal of discharge home with family modified independent to supervision for ADLs and mobility skills. EUGENIA THOMPSON DO Mar 16, 2019 21:57
[2019-03-16] MEDS ORDERED: CALCIUM CARBONATE 500 MG (TUMS) TAB.CHEW PO PRN (22:00)
[2019-03-16] MEDS ORDERED: ALPRAZolam 0.25 MG (XANAX) TAB PO PRN (22:00)
[2019-03-16] MEDS ORDERED: ACETAMINOPHEN 500 MG TAB (TYLENOL) PO PRN (22:00)
[2019-03-16] MEDS ORDERED: diphenhydrAMINE 25 MG TAB (BENADRYL) PO PRN (22:00)
[2019-03-16] MEDS ORDERED: ONDANSETRON 4 MG (ZOFRAN) ORAL DISSOLVE TAB PO PRN (22:00)
[2019-03-16] MEDS: DOCUSATE SODIUM 100 MG (COLACE) CAP PO SCH (22:10)
[2019-03-16] MEDS: SENNA W/DOCUSATE (SENOKOT S) TABLET PO SCH (22:11)
[2019-03-17] MEDS: HYDROcodone/APAP 10 MG/325 MG (LORTAB) TAB PO PRN ×4 (03:25→21:22)
[2019-03-17 05:46] VITALS: BP 133/85
[2019-03-17] MEDS: OMEGA 3 (FISH OIL) 1000 MG CAP PO SCH (06:32)
[2019-03-17 06:46] LABS: BASOPHILS % (AUTO) 0 % (0-10); EOSINOPHILS # (AUTO) 0.1 10^3/uL (0.0-0.3); EOSINOPHILS % (AUTO) 1 % (0-10); HEMATOCRIT 37 % (35-52); HEMOGLOBIN 11.9 G/DL (11.5-16.0); LYMPHOCYTES # (AUTO) 1.6 X 10^3 (1.0-4.0); LYMPHOCYTES % (AUTO) 24 % (12-44); MEAN CORPUSCULAR HEMOGLOBIN 32 PG (25-34); MEAN CORPUSCULAR HGB CONC 32 G/DL (32-36); MEAN CORPUSCULAR VOLUME 98 FL (80-99); MEAN PLATELET VOLUME 10.1 FL (7.4-10.4); MONOCYTES # (AUTO) 0.8 X 10^3 (0.0-1.0); MONOCYTES % (AUTO) 12 % (0-12); NEUTROPHILS # (AUTO) 4.3 X 10^3 (1.8-7.8); NEUTROPHILS % (AUTO) 63 % (42-75); PLATELET COUNT 230 10^3/uL (130-400); RED CELL DISTRIBUTION WIDTH 13.1 % (10.0-14.5); WHITE BLOOD COUNT 6.8 10^3/uL (4.3-11.0)
[2019-03-17 07:22] LABS: ALANINE AMINOTRANSFERASE 100 U/L (0-55); ALBUMIN 3.3 GM/DL (3.2-4.5); ALKALINE PHOSPHATASE 64 U/L (40-136); BILIRUBIN,TOTAL 0.7 MG/DL (0.1-1.0); BUN/CREATININE RATIO 20; CARBON DIOXIDE 23 MMOL/L (21-32); CHLORIDE 104 MMOL/L (98-107); CREATININE SERUM 0.69 MG/DL (0.60-1.30); GFR ESTIMATED > 60; GLUCOSE 117 MG/DL (70-105); POTASSIUM 3.9 MMOL/L (3.6-5.0); SODIUM 138 MMOL/L (135-145); TOTAL PROTEIN 5.6 GM/DL (6.4-8.2)
[2019-03-17] MEDS: RT-ALBUTEROL/IPRATROPIUM 3 ML (DUONEB) VIAL INH SCH ×3 (08:40→20:16)
--- NOTE | 2019-03-17 08:40 | PM&R Progress Note ---
Subjective HPI/CC On Admission Date Seen by Provider: Mar 17, 2019 Time Seen by Provider: 08:45 Chief Complaint: Debility following left total knee replacement HPI: This is a 74yoWF pt of Dr. Gonzalez who presents to the in patient rehab unit following slow recovery from a left total knee replacement uncomplicated by Dr. Anderson. Her PCP is Dr. Gonzalez her K 9 Handler/ Deputy is Dr. Combs. At this current time pt has not had a BM since before surgery so well need to work on that she feels pretty drained after walking with PT today and overall has had no other events during her hospital stay. 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 At this current time pt is deemed stable for transfer by her family to in patient rehab at [facility] and had an uneventful transport to [place]. Subjective/Events-last exam Patient having a lot of pain and pretty sore Ordered nebulizer treatments for subtle coarseness of the lungs since she has ceased smoking since she was admitted early this week for her surgery Reviewed labs which were all normal No bowel movement yet so will increase intensity of the regimen Check meds and labs Conferred with RN Reviewed therapy notes Patient has a slow recovery currently but with additional therapy and the structure in the inpatient rehab unit I have no doubt she will be successful at discharge and return home Review of Systems General: Fatigue Pulmonary: Dyspnea Objective Exam Vital Signs Vital Signs Date Time Temp Pulse Resp B/P (MAP) Pulse Ox O2 Delivery O2 Flow Rate FiO2 03/17/19 20:16 95 Room Air 03/17/19 15:38 98.7 64 14 129/83 (98) Capillary Refill : General Appearance: No Apparent Distress, Chronically ill HEENT: PERRL/EOMI, TMs Normal, Normal ENT Inspection, Pharynx Normal Respiratory: Chest Non Tender, No Accessory Muscle Use, No Respiratory Distress, Decreased Breath Sounds, Wheezing Cardiovascular: Regular Rate, Rhythm, No Edema, No Gallop, No JVD, No Murmur, Normal Peripheral Pulses Gastrointestinal: Normal Bowel Sounds, No Organomegaly, No Pulsatile Mass, Non Tender, Soft Rectal: Deferred Back: Normal Inspection, No CVA Tenderness, No Vertebral Tenderness Extremity: Normal Capillary Refill, Normal Inspection, Normal Range of Motion, Non Tender, No Calf Tenderness Neurologic/Psychiatric: Alert, Oriented x3, No Motor/Sensory Deficits, Normal Mood/Affect, 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 FIM Transfers Therapy Code Descriptions/Definitions Functional [place] Measure: 0=Not Assessed/NA 4=Minimal Assistance 1=Total Assistance 5=Supervision or Setup 2=Maximal Assistance 6=Modified [place] 3=Moderate Assistance 7=Complete [place] Therapy Quality Codes: 6 Independent with activity with or without an assistive device 5 Patient requires set up or clean up by helper. Patient completes activity by themselves 4 Supervision or touching assist (CGA). [place] provide cues , steadying a ssist 3 The helper provides less than half the effort to complete the activity 2 The helper provides more than half the effort to complete the activity 1 Dependent. The helper does all the effort to complete an activity 7 Patient refused to complete or attempt activity 9 The patient did not perform the activity before the current illness or injury 88 Not attempted due to Medical conditions or safety concerns Transfers (B, C, W/C) (FIM): 4 Scootin Roll Left to Right (QC): 4 Supine to/from Sit: 4 Sit to/from Stand: 4 Sit to Lying (QC): 4 Sit to Stand (QC): 4 Chair/Kjg-gx-Jzvtf Xfer(QC): 4 Car Transfer (QC): 3 (assist to get both legs in and out of the car ; assist to stand up) Gait Training Does the Patient Walk?: Yes Gait (FIM): 2 Distance (FIM): 5=010-51 ft Distance: 15' Walk 10 feet (QC): 5 Walk 50 ft with 2 Turns(QC): 4 Walk 150 ft (QC): 88 (pt did not walk this distance at evaluation. ) Walking 10ft/uneven surface-QC: 4 Gait Level of Assist: 5 Gait Persons Needed: 1 Gait Assistive Device: FWW Stair Training Stairs (FIM): 1 #of Steps: 1 1 Step (curb) (QC): 4 (min assist due to LE weakness and impaired ROM>) 4 Steps (QC): 88 Balance Picking up an Object (QC): 88 (unsafe to attempt) ADL-Treatment Groomin (CGA in standing using counter for stability.) Oral Hygiene (QC): 4 Bathin (Using grabbars, shower bench and hand held shower completes all areas except buttocks in sitting. Assist with L lower leg and buttocks. CGA in standing.) Bathing Location: L Arm, R Arm, L Upper Leg, R Upper Leg, R Lower Leg (including foot), Chest, Abdomen, Perineal Area Shower/Bathe Self (QC): 3 Upper Extremity Dressin (After set up, pt completes by self.) Upper Body Dressing (QC): 5 Lower Extremity Dressin (After set up, pt able to initiate clothing over feet except L sock then hike over hips by self with CGA in standing using FWW. Assist with L sock and PAUL hose.) Lower Body Dressing (QC): 3 On/Off Footwear (QC): 3 Toiletin (CGA) Toileting Hygiene (QC): 4 Toilet/Commode Transfer: 4 Toilet Transfer (QC): 4 Shower: 4 (Min A using FWW, grabbars and shower bench.) Assessment/Plan Assessment and Plan Assess & Plan/Chief Complaint Assessment: Status post left total knee replacement uncomplicated Slow recovery COPD Current smoker Coarse breath sounds order nebulizers Paroxysmal atrial fibrillation Long-term oral anticoagulation Postop constipation Hypertension Plan: Intensify bowel regimen Maintain inpatient rehab protocol Monitor pain and continue pain medication (1) Status post left knee replacement Status: Acute (2) COPD (chronic obstructive pulmonary disease) Status: Chronic Qualifiers: COPD type: unspecified COPD Qualified Codes: J44.9 - Chronic obstructive pulmonary disease, unspecified (3) Constipation Status: Acute Qualifiers: Constipation type: drug induced constipation Qualified Codes: K59.03 - Drug induced constipation (4) Hypertension Status: Chronic Qualifiers: Hypertension type: essential hypertension Qualified Codes: I10 - Essential (primary) hypertension (5) CAD (coronary artery disease) Status: Chronic Qualifiers: Coronary Disease-Associated Artery/Lesion type: [place] artery [place] vs. transplanted heart: [place] heart Associated angina: without angina Qualified Codes: I25.10 - Atherosclerotic heart disease of [place] coronary artery without angina pectoris (6) Paroxysmal atrial fibrillation (7) Debility Status: Acute (8) Anticoagulant long-term use Status: Chronic (9) Smoker Status: Chronic DANIEL THOMPSON DO Mar 17, 2019 08:40
--- NOTE | 2019-03-17 09:08 | Physical Therapy Daily Note ---
PT Daily Note-Current Subjective Pt. reluctantly agrees to Rx. States she is anxious for a pain pill. Nurse was notified. c/o pain at 10/10 in left knee. Pt. describes her steps at home etc. Pain Numeric Pain Scale: 10-Worst Possible Pain Location: Left Location Body Site: Knee Pain Description: Stabbing Mental Status Patient Orientation: Normal For Age Transfers Therapy Code Descriptions/Definitions Functional [place] Measure: 0=Not Assessed/NA 4=Minimal Assistance 1=Total Assistance 5=Supervision or Setup 2=Maximal Assistance 6=Modified [place] 3=Moderate Assistance 7=Complete [place] Therapy Quality Codes: 6 Independent with activity with or without an assistive device 5 Patient requires set up or clean up by helper. Patient completes activity by themselves 4 Supervision or touching assist (CGA). [place] provide cues , steadying assist 3 The helper provides less than half the effort to complete the activity 2 The helper provides more than half the effort to complete the activity 1 Dependent. The helper does all the effort to complete an activity 7 Patient refused to complete or attempt activity 9 The patient did not perform the activity before the current illness or injury 88 Not attempted due to Medical conditions or safety concerns Transfers (B, C, W/C) (FIM): 5 Scootin Rollin Supine to/from Sit: 5 Sit to/from Stand: 5 Weight Bearing Right Lower Extremity: Right Full Weight Bearing Left Lower Extremity: Left Weight Bearing/Tolerated Gait Training Does the Patient Walk?: Yes Gait (FIM): 5 Distance (FIM): 3=150 ft (165x2) Gait Level of Assist: 5 Gait Persons Needed: 1 Gait Assistive Device: FWW very slow, heavy wt bearing on FWW, antalgic, poor heel strike, left knee flexed to approx 20 deg Exercises Supine Ex: Ankle pumps, Quad Set, Glut sets, Heel Slides (assist), Short Arc Quads, Scooting, Straight leg raise (assist) Supine Reps: 15 (x2) Seated Therapy Exercises: Ankle pumps, Sit to stand, Long arc quads Seated Reps: 12 NuStep Minutes: 10 NuStep Workload: 4 Treatments emphasis on knee extension and flexion with pain limiting factor. Assessment Current Status: Fair Progress AROM L knee ext 20, flexion 70 degr, PROM L knee 16 degr, flexion 80 degr PT Short Term Goals Short Term Goals Time Frame: Mar 23, 2019 Transfers (B,C,W/C) (FIM): 5 Gait (FIM): 5 PT Usp Goals Cereal Chemist Goals PT Cereal Chemist Goals Time Frame: Mar 30, 2019 Transfers (B,C,W/C) (FIM): 7 Sit to Lying (QC): 6 Lying-Sitting on Side/Bed(QC): 6 Sit to Stand (QC): 6 Roll Left to Right (QC): 6 Chair/Hao-mf-Pidxa Xfer(QC): 6 Car Transfer (QC): 6 Does the Patient Walk: Yes Gait (FIM): 6 Gait distance (FIM): 3=150 ft Distance: 300 ft Walk 10 feet (QC): 6 Walk 10ft-Uneven Surface(QC): 6 Walk 50ft with 2 Turns (QC): 6 Walk 150 ft (QC): 6 Gait Assistive Device: FWW Does the Pt use WC or Scooter?: No Stairs (FIM): 5 # of Steps: 4 1 Step (curb) (QC): 6 4 Steps (QC): 6 12 Steps (QC): 10 Picking up an Object (QC): 4 PT Plan Treatment/Plan Treatment Plan: Continue Plan of Care Treatment Plan: Bed Mobility, Education, Functional Activity Serena, Functional Strength, Group Therapy, Gait, Safety, Therapeutic Exercise, Transfers Treatment Duration: Mar 30, 2019 Frequency: At least 5 of 7 days/Wk (IRF) Estimated Hrs Per Day: 1.5 hours per day Patient and/or Family Agrees t: Yes Safety Risks/Education Patient Education: Gait Training, Transfer Techniques, Correct Positioning, Disease Process, Safety Issues Teaching Recipient: Patient Teaching Methods: Demonstration, Discussion Response to Teaching: Verbalize Understanding, Return Demonstration, Reinforcement Needed emphasized the importance of ROM and safe gait pattern and strength Time/GCodes Time In: 800 Time Out: 900 Total Billed Treatment Time: 60 Total Billed Treatment 1,GT20m,EX25m,FA15m G Codes Necessary: LARA Sweeney INTERIOR DECORATOR PAPERHANGING Mar 17, 2019 09:08
[2019-03-17] MEDS: LACTOBACILLUS ACIDOPHILUS (PROBIOTIC) CAPSULE PO SCH (09:19)
[2019-03-17] MEDS: ASPIRIN 81 MG CHEW (CHILDREN'S ASA) PO SCH (09:19)
[2019-03-17] MEDS: APIXABAN 5 MG (ELIQUIS) TABLET PO SCH ×2 (09:23→21:19)
[2019-03-17] MEDS: CALCIUM CARB + VIT D 600 MG (CALCARB + D) TAB PO SCH (09:23)
[2019-03-17] MEDS: meTOprolol TARTRATE 50 MG (LOPRESSOR) TAB PO SCH ×2 (09:23→21:19)
[2019-03-17] MEDS: amLODIPine 10 MG (NORVASC) TAB PO SCH (09:23)
[2019-03-17] MEDS: POLYETHYLENE GLYCOL 17 GM (MIRALAX) PACK PO SCH ×2 (09:23→21:21)
[2019-03-17] MEDS: DOCUSATE SODIUM 100 MG (COLACE) CAP PO SCH ×2 (09:23→21:16)
[2019-03-17] MEDS: VALSARTAN 160 MG (DIOVAN) TABLET PO SCH (09:23)
[2019-03-17] MEDS: PANTOPRAZOLE 40 MG (PROTONIX) TAB PO SCH (09:24)
[2019-03-17] MEDS: VITAMIN D3 1,000 UNITS (CHOLECALCIFEROL) TABLET PO SCH (09:24)
[2019-03-17] MEDS: MULTIVIT W/MINERALS TAB (THERAGRAN M) PO SCH (09:24)
[2019-03-17] MEDS: SENNA W/DOCUSATE (SENOKOT S) TABLET PO SCH ×2 (09:24→21:35)
--- NOTE | 2019-03-17 09:58 | Occupational Ther Daily Note ---
OT Current Status-Daily Note Subjective Pt alert, sitting in recliner. Pt c/o pain, nrsg gave pain meds. Pt agrees to therapy. Mental Status/Objective Patient Orientation: Person, Place, Time, Situation Therapy Code Descriptions/Definitions Functional Webster Measure: 0=Not Assessed/NA 4=Minimal Assistance 1=Total Assistance 5=Supervision or Setup 2=Maximal Assistance 6=Modified Webster 3=Moderate Assistance 7=Complete Webster ADL-Treatment Pt agrees to shower. Sit to stand with CGA for transfers using FWW. Pt ambulated to bathroom and transferred to shower with min A and verbal cues using FWW, grabbars and shower bench. Pt then completed own shower with supervision cleansing buttocks leaning side to side instead of standing. Pt let buttocks and lower legs air dry. After set up, pt able to dress upper body by self. Lower body, initiating pants/underwear over feet by self CGA in standing to hike pants over hips. Pt assist to don socks, will need to use sock aide. Pt doffed shoes by self and assist to doff PAUL hose. Declined grooming at this time. Min A for EOB to supine and min a for bed mobility. Pt ambulated with CGA into bathroom using FWW. CGA using FWW and grabbars to transfer on/off toilet. Pt able to cleanse self sitting on toilet then CGA to manipulate clothing. Pt stood at sink using FWW and CGA to comb hair. Physician in room after therapy finished. Call light/phone in reach. All needs met in room. Ice pack on L knee. Therapy Code Descriptions/Definitions Functional Webster Measure: 0=Not Assessed/NA 4=Minimal Assistance 1=Total Assistance 5=Supervision or Setup 2=Maximal Assistance 6=Modified [place] 3=Moderate Assistance 7=Complete Webster Therapy Quality Codes: 6 Independent with activity with or without an assistive device 5 Patient requires set up or clean up by helper. Patient completes activity by themselves 4 Supervision or touching assist (CGA). [place] provide cues , steadying assist 3 The helper provides less than half the effort to complete the activity 2 The helper provides more than half the effort to complete the activity 1 Dependent. The helper does all the effort to complete an activity 7 Patient refused to complete or attempt activity 9 The patient did not perform the activity before the current illness or injury 88 Not attempted due to Medical conditions or safety concerns Bathing (FIM): 5 Bathing Location: L Arm, R Arm, L Upper Leg, R Upper Leg, L Lower Leg (including foot), R Lower Leg (including foot), Chest, Abdomen, Buttocks, Perineal Area Shower/Bathe Self (QC): 4 Upper Body (FIM): 5 Upper Body Dressing (QC): 5 Lower Body Dressing (FIM): 4 Lower Body Dressing (QC): 3 On/Off Footwear (QC): 2 Toileting (FIM): 4 Toileting Hygiene (QC): 4 Transfers (B, C, W/C) (FIM): 4 Toilet/Commode Transfer (FIM): 4 Toilet Transfer (QC): 4 Shower Transfer(FIM): 4 OT Short Term Goals Short Term Goals Time Frame: Mar 23, 2019 Eating(FIM): 5 Grooming(FIM): 5 Bathing(FIM): 5 Upper Body Dressing(FIM): 5 Lower Body Dressing(FIM): 5 Toileting(FIM): 5 Transfers (B,C,W/C) (FIM): 5 Toilet/Commode Transfer(FIM): 5 Shower Transfer(FIM): 5 Additional Short Term Goals: 1-Demonstrate ADL Tasks, 2-Verbalize Understanding, 3-ImproveStrength/Serena 1=Demonstrate adherence to instructed precautions during ADL tasks. 2=Patient will verbalize/demonstrate understanding of assistive devices/modifications for ADL. 3=Patient will improve strength/tolerance for activity to enable patient to perform ADL's. OT Fpc Goals Telegraphic Typewriter Operator Chief Goals Time Frame: Mar 30, 2019 Eating (FIM): 6 Eating (QC): 6 Groomin Oral Hygiene (QC): 6 Bathing(FIM): 6 Shower/Bathe Self (QC): 6 Upper Body Dressing(FIM): 6 Upper Body Dressing (QC): 6 Lower Body Dressing(FIM): 6 Lower Body Dressing (QC): 6 On/Off Footwear (QC): 6 Toileting(FIM): 6 Toileting Hygiene (QC): 6 Transfers (B,C,W/C) (FIM): 6 Toilet/Commode Transfer(FIM): 6 Toilet/Commode Transfer (QC): 6 Shower Transfer(FIM): 5 Additional Goals: 1-Demonstrate ADL Tasks, 2-Verbalize Understanding, 3- ImproveStrength/Serena 1=Demonstrate adherence to instructed precautions during ADL tasks. 2=Patient will verbalize/demonstrate understanding of assistive devices/modifications for ADL. 3=Patient will improve strength/tolerance for activity to enable patient to perform ADL's. OT Education/Plan Problem List/Assessment Assessment: Decreased Activ Tolerance, Decreased UE Strength, Impaired Self- Care Skills Discharge Recommendations Plan/Recommendations: Continue POC Treatment Plan/Plan of Care Patient would benefit from OT for education, treatment and training to promote independence in ADL's, mobility, safety and/or upper extremity function for ADL's. Plan of Care: ADL Retraining, Functional Mobility, Group Exercise/Act as Ind, UE Funct Exercise/Act Treatment Duration: Mar 30, 2019 Frequency: At least 5 of 7 days/Wk (IRF) Estimated Hrs Per Day: 1.5 hours per day Agreement: Yes Rehab Potential: Good Time/GCodes Start Time: 09:00 Stop Time: 10:00 Total Time Billed (hr/min): 60 Billed Treatment Time 1 visit-ADL 4 (60 min) REYES RODRIGUEZ Mar 17, 2019 09:58
--- NOTE | 2019-03-17 10:09 | Consultation ---
History of Present Illness History of Present Illness Patient Consulted On(arden/time) 03/17/19 10:03 Date Seen by Provider: Mar 17, 2019 Time Seen by Provider: 09:30 Reason for Visit: LEFT TOTAL KNEE REPLACEMENT History of Present Illness PT IS A 74 Y/O FEMALE WHO IS SEEN IN MY CLINIC. SHE HAD A LEFT TOTAL KNEE REPLACEMENT FOR SEVERE OA OF LEFT KNEE - PERFORMED BY DR. RAMÍREZ AT [address] SHE REPORTS THAT SHE IS HAVING QUITE A BIT OF PAIN IN HER KNEE. SHE STATES THAT TODAY SHE JUST FEELS "BLAH". SHE DENIES CHEST PAIN, SHORTNESS OF BREATH, ABDOMINAL PAIN, NAUSEA, DIZZINESS, CONSTIPATION. Allergies and Home Medications Allergies Coded Allergies: Sulfa (Sulfonamide Antibiotics) (Unverified Allergy, Unknown, 02/10/06) lisinopril (Unverified Allergy, Unknown, 11/15/13) Home Medications Amlodipine Besylate 10 Mg Tablet, 10 MG PO DAILY, (Reported) Apixaban 5 Mg Tablet, 5 MG PO BID, (Reported) Aspirin 81 Mg Tab.chew, 81 MG PO DAILY, (Reported) Atorvastatin Calcium 10 Mg Tablet, 10 MG PO Q48H, (Reported) Calcium Carbonate/Vitamin D3 1 Each Tablet, 1 TAB PO DAILY, (Reported) Cholecalciferol (Vitamin D3) 2,000 Unit Capsule, 2,000 UNIT PO DAILY, (Reported) Hydrocodone/Acetaminophen 1 Each Tablet, 1 TAB PO Q4H PRN for PAIN-MODERATE, (Reported) L.acidoph & Paracasei,B.lactis 1 Each Capsule, 1 CAP PO DAILY, (Reported) Metoprolol Tartrate 100 Mg Tablet, 100 MG PO BID, (Reported) Multivitamin 1 Each Tablet, 1 TAB PO DAILY, (Reported) [place] 3 Polyunsat Fatty Acids 1,000 Mg Cap, 1,000 MG PO BID, (Reported) Pantoprazole Sodium 40 Mg Tablet.dr, 40 MG PO DAILY, (Reported) Sennosides 8.6 Mg Tablet, 8.6 MG PO BID, (Reported) Tramadol HCl 50 Mg Tablet, 50 MG PO Q6H PRN for PAIN-MODERATE, (Reported) Valsartan 320 Mg Tablet, 320 MG PO DAILY, (Reported) Patient Home Medication List Home Medication List Reviewed: Yes Past Haqkotb-Enmvnb-Payrdh Hx Past Med/Social Hx: Reviewed Nursing Past Med/Soc Hx, Reviewed and Corrections made Patient Social History Alcohol Use: Denies Use Number of Drinks Today: 0 Recreational Drug Use: No Smoking Status: Current Everyday Smoker Type Used: Cigarettes Recent Foreign Travel: No Contact w/Someone Who Travel: No Recent Infectious Disease Expo: No Recent Hopitalizations: Yes (LEFT TOTAL KNEE REPLACEMENT -) Immunizations Up To Date Date of Pneumonia Vaccine: Nov 15, 2009 Date of Influenza Vaccine: Jun 16, 2017 Seasonal Allergies Seasonal Allergies: No Past Medical History Surgeries: Yes (LEFT UPPER LOBECTOMY) Orthopedic Respiratory: Yes (LUNG CA AND UPPER LOBECTOMY LEFT SIDE) COPD Currently Using CPAP: No Currently Using BIPAP: No Cardiac: Yes High Cholesterol, Hypertension Neurological: No : No Genitourinary: No Gastrointestinal: Yes Gastroesophageal Reflux, Hiatal Hernia Musculoskeletal: Yes Chronic Back Pain Endocrine: No Are Your Blood Sugars Over 250: No HEENT: No Cancer: Yes Lung What Type of Treatment Did You: Radiation, Surgical Intervention Left Upper lobe pulmonary nodules (benign but 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) Psychosocial: Yes Depression Integumentary: No Blood Disorders: No Family Medical History Reviewed Nursing Family Hx Heart Disease, Cancer, Diabetes, Hypertension, Stroke Review of Systems-General Constitutional: No chills, No fever; malaise; No weakness EENTM: No hoarseness, No throat pain Respiratory: No cough, No dyspnea on exertion, No short of breath Cardiovascular: No chest pain, No palpitations Gastrointestinal: No abdominal pain, No constipation, No diarrhea, No loss of appetite, No nausea, No vomiting Genitourinary: no symptoms reported Musculoskeletal: No back pain; joint pain Skin: no symptoms reported Psychiatric/Neurological: Denies Anxiety, Denies Depressed; Weakness All Other Systems Reviewed Negative Unless Noted: Yes Physical Exam-General Problems Physical Exam Vital Signs Vital Signs - First Documented 03/16/19 13:20 Temp 98.0 Pulse 76 Resp 20 B/P (MAP) 134/78 (96) Pulse Ox 97 O2 Delivery Room Air Capillary Refill : General Appearance: WD/WN, no apparent distress Eyes: Bilateral Eye Normal Inspection, Bilateral Eye PERRL, Bilateral Eye EOMI HEENT: PERRL/EOMI, pharynx normal Neck: non-tender, full range of motion, supple, normal inspection Respiratory: chest non-tender, lungs clear, normal breath sounds, no respiratory distress, no accessory muscle use Cardiovascular: regular rate, rhythm, no edema Gastrointestinal: normal bowel sounds, non tender, soft, no organomegaly, no pulsatile mass Rectal: deferred Back: normal inspection Extremities: normal capillary refill, other (LEFT KNEE WITH POLAR ICE WRAP IN PLACE, RIGHT LOWER LEG WITHOUT EDEMA, NORMAL ROM NOTED) Neurologic/Psychiatric: game manager II-XII nml as tested, no motor/sensory deficits, alert, normal mood/affect, oriented x 3 Skin: normal color, warm/dry, other (LEFT KNEE WITH SURGICAL DRESSING IN PLACE) Lymphatic: no adenopathy Assessment/Plan Assessment/Plan Admission Diagnosis/Plan LEFT TOTAL KNEE REPLACEMENT HYPERTENSION HYPERLIPIDEMIA GERD CONSTIPATION LEFT TOTAL KNEE REPLACEMENT - - PLAN FOR PHYSICAL AND OCCUPATIONAL THERAPY TO TREAT PATIENT, AIDE WITH SAFETY WITH AMBULATION, STRENGTHENING, AND SAFETY WITH TRANSFERS. - CONTINUE WITH PAIN MEDICATION FOR CONTROL OF PAIN PRIOR TO THERAPY VISITS. HYPERTENSION - - RESUME HOME REGIMEN - METOPROLOL, VALSARTAN AND AMLODIPINE, MONITOR PRESSURES AND ADJUST MEDICATION NEEDED FOR OPTIMAL BLOOD PRESSURE CONTROL. HYPERLIPIDEMIA - - CONTINUE WITH STATIN THERAPY - WILL ADD CO-ENZYME Q10 GERD - - STABLE - CONTINUE WITH PPI CONSTIPATION - - SENNA - AND MIRALAX IF NEEDED Admission Status: Inpatient Order (span 2 midnights) Reason for Inpatient Admission: INPATIENT REHAB FOR AT LEAST 7-10 DAYS FOR STRENGTHENING, THERAPY FOR LEFT TOTAL KNEE REPLACEMENT RECOVERY Clinical Quality Measures DVT/VTE Risk/Contraindication: Risk Factor Score Per Nursin RFS Level Per Nursing on Admit: 4+=Very High REMY MCELROY MD Mar 17, 2019 10:09
--- NOTE | 2019-03-17 10:22 | Progress Note - Hospitalist ---
CHRISTINA BRAVO [facility] 03/17/19 1022: Progress Note Jd is in quite a bit of pain overnight - continue with po meds She has not net had a bowel movement. Reports passing lots of gas. Continue Senna and Colace. Add Miralax. Fleet PRN. She was participating in PT this morning during rounds. She has course b/l breath sounds. Schedule DuoNeb TID. EUGENIA CROW DO 03/17/199: Supervisory-Addendum Brief Verification & Attestation Participated in pt care: history, MDM, physical Personally performed: exam, history, MDM, supervision of care Care discussed with: Medical Student Procedures: n/a Results interpretation: Verified all documentation Verification and Attestation of Medical Student E/M Service A medical student performed and documented this service in my presence. I reviewed and verified all information documented by the medical student and made modifications to such information, when appropriate. I personally performed the physical exam and medical decision making. Eugenia Crow, Mar 17, 2019,21:39 CHRISTINA BRAVO [facility] Mar 17, 2019 10:22 EUGENIA CROW DO Mar 17, 2019 21:39
[2019-03-17 10:33] LABS: AMYLASE 21 U/L (25-125); LIPASE 22 U/L (8-78)
--- NOTE | 2019-03-17 13:07 | ST Cognitive Linguistic Eval ---
Speech Evaluation-General Medical Diagnosis OA left knee Onset Date: Mar 16, 2019 Therapy Diagnosis Therapy Diagnosis: Cognitive-communication Precautions Precautions: Fall Precautions/Isolations: Fall Prevention, Standard Precautions Referral Referring Physician: Dr. Crow Reason for Referral: Evaluation/Treatment Medical History Pertinent Medical History: Atrial Fib, COPD, Smoking Atrial Fib, COPD, Smoking Current History OA left knee Reviewed History: Yes Social History Home: Single Level Current Living Status: Alone Speech PLF-Current Status Prior Level of Function The patient lives alone where she is independent for her daily needs. The patient is still employed and works every day. Subjective The patient was pleasant and compliant with the cognitive evaluation. Language Eval: Auditory Comprehends Simple Yes/No Ques: Functional Indent/Objects Multiple [place]: Functional Ident/Pics in Multiple [place]: Functional Follows 1-Step Commands: Functional Follows Complex Directions: Functional Follows General Conversations: Functional Language Eval: Verbal Language Completes Spontaneous Greeting: Functional Produces Auto, Serial Info: Functional Imitates Simple Words/Phrases: Functional Word Finding: Functional Requests Basic Needs: Functional States Basic Personal Info: Functional Expresses Complex Ideas: Functional Cognitive Patient Orientation Patient is oriented to all concepts. Objective Cognitive Domain Attention: WNL Memory: Mild Problem Solving: Functional Executive Functions: WNL Visuospatial Skills: WNL Composite Severity Rating: WNL Clock Drawing Severity Rating: WNL Score: 27/30 Range: Normal Objective Formal/Standardized Tests [facility] Mental Status ([facility]) Results Patient scored within normal range of function at 27/30 Oral Motor/Speech Production Within Functional Limits Impression The patient is a pleasant 74 year old female who was admitted to the ARU s/p OA left knee. She was given the [facility] for cognitive level of function. The patient scored within the normal range of function at 27/30. She does not require skilled ST services at this time. Communication/Social Cognition Comprehension: 7 Expression: 7 Social Interaction: 7 Problem Solvin Memory: 6 Speech Patient Assess Expression of Ideas/Wants: Expression (4) Understanding Verbal Content: Understands (4) Brief Interview-Mental Status: Yes Repetition of Three Words: Three (3) Temporal Orientation: Year: Correct (3) Temporal Orientation: Month: Accurate within 5 days(2) Temporal Orientation: Day: Correct (1) Recall : Wear to say "Sock": Yes, no cue required (2) Recall : Color: Yes, no cue required (2) Recall : Bed: Yes,after cueing (1) Add-Enter 99 if pt cannot comp: 99 Memory/Recall Ability: Current season, Location of own room, Staff names and faces, That he or she is in a hsp/hsp unit Speech-Plan Patient/Family Goals Patient/Family Goals: The patient plans on returning home post rehab. Treatment Plan Speech Therapy Treatment Plan: Discontinue ST The patient does not require skilled ST at this time. Treatment Duration: Mar 17, 2019 Frequency: 1 time per week Estimated Hrs Per Day: .25 hour per day Rehab Potential: Good Barriers to Learning: None identified Pt/Family Agrees to Plan: Yes Safety Risks/Education Teaching Recipient: Patient Teaching Methods: Discussion Response to Teaching: Verbalize Understanding Education Topics Provided: Safety within her room and communication of wants/needs Time Speech Therapy Time In: 10:30 Speech Therapy Time Out: 10:45 Total Billed Time: 15 Billed Treatment Time 1, SPSNDCOMP MATT Jean Baptiste Mar 17, 2019 13:07
--- NOTE | 2019-03-17 13:32 | Diagnostic Imaging Report ---
PROCEDURE: US Gallbladder. TECHNIQUE: Multiple real-time grayscale images were obtained over the right upper quadrant in various projections. INDICATION: Elevated liver enzymes and recent knee replacement. FINDINGS: The liver is normal in size without focal lesions. The gallbladder is surgically absent. Common bile duct measures 6.9 mm. Pancreas is not well seen due to bowel gas. Right kidney is normal in appearance. There is no ascites. IMPRESSION: Unremarkable right upper quadrant ultrasound status post cholecystectomy. Dictated by: Dictated on workstation # [id number]
--- NOTE | 2019-03-17 14:53 | Therapy Group Daily Note ---
Therapy Daily Group Note Patient Education Topic Other List Below (ARU expectations, pain management strategies) Exercises LE Seated Exercise, UE Exercise Session Ratio (pt:therapist): 4:1 Goal of Session: Education on ARU Expectations, Other (list) (explain pain and management strategies) Goal Met for this Session: Yes Pt Benefit of Group: Socialization, Other (understanding pain and ARU expectations) Other/Notes Pt. participated in group PT OT session. Pt. ambulated to from group with SBA and FWW. Pts shared their names, home town and a little about themselves. Education focused on orientation to ARU as well as ways to manage pain ie, massage, positioning, monitored heat and cold, vibration, trigger point release tools etc. Pt. utilized ice pack on her left knee during group and was educated on its use. Pts. were taught and participated in seated thoracic extension stretch, hamstring stretch as well as prayer hand stretches and UE stretches. Pts were all interactive and shared ideas and experiences regarding pain management. Pt. to room after Rx . Ruthie at hand Start Time: 13:00 Stop Time: 14:20 Total Billed Treatment Time: 80 Total Billed Treatment 1,GRP LARA FREEMAN COMPENSATION SUPERVISOR Mar 17, 2019 14:53
[2019-03-17 15:38] VITALS: BP 129/83
[2019-03-17] MEDS ORDERED: BISACODYL 10 MG SUPP (DULCOLAX) ONE (16:11)
[2019-03-17] MEDS ORDERED: BISACODYL 10 MG SUPP (DULCOLAX) PR PRN (16:15)
--- NOTE | 2019-03-17 21:45 | Individualized Plan of Care ---
Individualized Plan of Care Rehab Nursing IPOC Order Admission Date Mar 16, 2019 at 13:20 Current Orders Orders Admission Order(Inpt,Obs,Sdc) (03/16/19 10:37) Vital Signs: Per Unit Policy ( ,16,00 (03/16/19 10:37) Securities Consultant-Inpt Rehab Con (03/16/19 10:37) Rehab Nursing Orders-Ipoc (03/16/19 10:37) Physical Therapy Rehab Orders (03/16/19 10:37) Occupational Therapy Rehab Ord (03/16/19 10:37) Speech Therapy Rehab Orders (03/16/19 10:37) Intake & Output 06,14,22 (03/16/19 10:37) Precautions (Aru) (03/16/19 10:37) Weekly Weight (Lbs) WEEK (03/16/19 10:37) Rehab-Intensity Of Therapy (03/16/19 10:37) Initiate Admission Nursing Pro .admission (03/16/19 10:37) Consult Family Medicine (03/16/19 10:45) Patient Visit (03/16/19 ) Pt Eval Moderate Complexity (03/16/19 ) Functional Activities, Ea 15 (03/16/19 ) Patient Visit (03/16/19 ) Functional Activities, Ea 15 (03/16/19 ) Aspirin Chewable Tablet (Baby Aspirin Ch (03/17/19 09:00) Atorvastatin Tablet (Lipitor Tablet) (03/16/19 21:00) Hydrocodone/Apap 10/325 Tablet (Lortab 1 (03/16/19 16:30) Therapeutic Multivitamin Tab (Vitamins, (03/17/19 09:00) [place] 3 Capsule (Fish Oil Capsule) (03/16/19 17:00) Pantoprazole Tablet (Protonix Tablet) (03/17/19 09:00) Tramadol Tablet (Ultram Tablet) (03/16/19 16:30) Amlodipine Tablet (Norvasc Tablet) (03/17/19 09:00) Calcium Carbonate W/Vitamin D3 (Calcarb (03/17/19 09:00) Cholecalciferol Capsule/Tablet (Vitamin (03/17/19 09:00) Lactobacillus Acidophilus Cap (Acidophil (03/17/19 09:00) Metoprolol Tartrate (Ir) Tab (Lopressor (03/16/19 21:00) Sennosides Tablet (Senokot Tablet) (03/16/19 21:00) Valsartan Tablet (Diovan Tablet) (03/17/19 09:00) General/Regular (03/16/19 Dinner) Apixaban Tablet (Eliquis Tablet) (03/16/19 21:00) Incentive Spirometry (Nursing) Q2H (03/16/19 18:41) Code/Resuscitation (03/16/19 20:35) Mesfin Hose ,21 (03/16/19 20:35) Continuous Passive Motion UD (03/16/19 20:35) Cbc With Automated Diff (03/17/19 06:00) Comprehensive Metabolic Panel (03/17/19 06:00) Acetaminophen Tablet (Tylenol Tablet) (03/16/19 22:00) Alprazolam Tablet (Xanax Tablet) (03/16/19 22:00) Calcium Carbonate Chew Tablet (Antacid C (03/16/19 22:00) Diphenhydramine Tablet (Benadryl Tablet) (03/16/19 22:00) Docusate Sodium Capsule (Colace Capsule) (03/16/19 22:00) Melatonin Tablet (Melatonin Tablet) (03/16/19 22:00) Ondansetron Oral Dissolve Tab (Zofran (03/16/19 22:00) Senna S Tablet (Senokot S Tablet) (03/16/19 22:00) Polyethylene Glycol Powder Pkt (Miralax (03/17/19 09:00) Albuterol/Ipra Inhalation Soln (Duoneb I (03/17/19 08:30) Svn Small Volume Nebulizer (03/17/19 08:26) Cbc No Diff (03/18/19 05:00) Comprehensive Metabolic Panel (03/18/19 05:00) Comprehensive Metabolic Panel (03/19/19 05:00) Comprehensive Metabolic Panel (03/20/19 05:00) Amylase (03/17/19 10:14) Lipase (03/17/19 10:14) Us Gallbladder [id number] (03/17/19 10:14) Patient Visit (03/17/19 ) Therapeutic, Group (03/17/19 ) Gait Training, Ea 15 Min (03/17/19 ) Exercise Therap, Ea 15 Min (03/17/19 ) Functional Activities, Ea 15 (03/17/19 ) Bisacodyl Suppository (Dulcolax Supposit (03/17/19 16:15) Soap Suds Enema Until Clear (03/17/19 16:02) Patient Visit (03/17/19 ) Speech Sound Lang Comp (03/17/19 ) Bisacodyl Suppository (Dulcolax Supposit (03/17/19 16:11) Patient Visit (03/18/19 ) Gait Training, Ea 15 Min (03/18/19 ) Exercise Therap, Ea 15 Min (03/18/19 ) Rehab Nursing Orders: Ongoing Assess. of Cognitive Status, Ongoing Assess. of Function Status, Bowel Management, DVT Prophylaxis, Fall Prevention, Fluid/Electrolyte/Nutrition Mgmt, Infection Prevention, Medication Management & Education, Management of Risks & Complications, Management of Skin Intergrity, Nutrition Management, Pain Management, Patient/Family Support, Safety Management Intensity of Therapy to be met Patient to be seen: Min.3h per day/5 of 7d PT IPOC Problem List: Activity Tolerance, Functional Strength, Gait, Transfer, Bed Mobility Treatment Plan: Continue Plan of Care Bed Mobility, Education, Functional Activity Serena, Functional Strength, Group Therapy, Gait, Safety, Therapeutic Exercise, Transfers Treatment Duration: Mar 30, 2019 Frequency: At least 5 of 7 days/Wk (IRF) Estimated Hrs Per Day: 1.5 hours per day OT IPOC Problems: Decreased Activ Tolerance, Decreased UE Strength, Impaired Self-Care Skills OT Treatment, Training and Edu: Yes Plan of Care: ADL Retraining, Functional Mobility, Group Exercise/Act as Ind, UE Funct Exercise/Act Treatment Duration: Mar 30, 2019 Frequency: At least 5 of 7 days/Wk (IRF) Estimated Hrs Per Day: 1.[address] IPOC Speech Therapy Treatment Plan: Discontinue ST Treatment Duration: Mar 17, 2019 Frequency: 1 time per week Estimated Hrs Per Day: .25 hour per day Securities Consultant/Case Mgmt Securities Consultant/Case Managemen: Discharge Planning Dietitian/Divinity Teacher Dietitian/Divinity Teacher to monitor nutritional status and make changes and/or recommendations as needed and work with speech pathology on dietary upgrades as the occur. Physician IPOC Medical Issues being managed closely and that require the 24 hour availability of a physician: Acute smoking cessation has caused wheezing and Nebs ordered and will monitor closely for resp insuff while undergoing aggressive therapies. Medical Issues: Bowel/Bladder Function, Falls Precautions, Fluid/Electrolyte/Nutrition Balance, Pain Management Brief Synthesis of Preadmission Screen, Post-Admission Evaluation, and Therapy Evaluations: PT will focus on ambulation limited by pain in order to return home OT will focus on regaining independence in ADL's Medical Prognosis: Good Anticipated Length of Stay: 7 days DANIEL THOMPSON DO Mar 17, 2019 21:44
[2019-03-18] MEDS: HYDROcodone/APAP 10 MG/325 MG (LORTAB) TAB PO PRN ×4 (04:34→20:07)
[2019-03-18 05:46] VITALS: BP 116/62
[2019-03-18 06:43] LABS: HEMOGLOBIN 11.6 G/DL (11.5-16.0); RED CELL DISTRIBUTION WIDTH 13.1 % (10.0-14.5)
[2019-03-18 07:00] LABS: ALANINE AMINOTRANSFERASE 111 U/L (0-55); ALBUMIN 3.3 GM/DL (3.2-4.5); ALKALINE PHOSPHATASE 86 U/L (40-136); BILIRUBIN,TOTAL 0.9 MG/DL (0.1-1.0); BUN/CREATININE RATIO 22; CALCIUM 9.3 MG/DL (8.5-10.1); CARBON DIOXIDE 22 MMOL/L (21-32); CHLORIDE 104 MMOL/L (98-107); CREATININE SERUM 0.72 MG/DL (0.60-1.30); GFR ESTIMATED > 60; GLUCOSE 127 MG/DL (70-105); POTASSIUM 4.2 MMOL/L (3.6-5.0); SODIUM 138 MMOL/L (135-145); TOTAL PROTEIN 5.8 GM/DL (6.4-8.2)
[2019-03-18] MEDS: RT-ALBUTEROL/IPRATROPIUM 3 ML (DUONEB) VIAL INH SCH ×3 (07:43→19:33)
[2019-03-18] MEDS: CALCIUM CARB + VIT D 600 MG (CALCARB + D) TAB PO SCH (08:54)
[2019-03-18] MEDS: VITAMIN D3 1,000 UNITS (CHOLECALCIFEROL) TABLET PO SCH (08:54)
[2019-03-18] MEDS: ASPIRIN 81 MG CHEW (CHILDREN'S ASA) PO SCH (08:54)
[2019-03-18] MEDS: LACTOBACILLUS ACIDOPHILUS (PROBIOTIC) CAPSULE PO SCH (08:54)
[2019-03-18] MEDS: PANTOPRAZOLE 40 MG (PROTONIX) TAB PO SCH (08:55)
[2019-03-18] MEDS: VALSARTAN 160 MG (DIOVAN) TABLET PO SCH (08:55)
[2019-03-18] MEDS: amLODIPine 10 MG (NORVASC) TAB PO SCH (08:55)
[2019-03-18] MEDS: meTOprolol TARTRATE 50 MG (LOPRESSOR) TAB PO SCH ×2 (08:55→20:07)
[2019-03-18] MEDS: MULTIVIT W/MINERALS TAB (THERAGRAN M) PO SCH (08:55)
[2019-03-18] MEDS: APIXABAN 5 MG (ELIQUIS) TABLET PO SCH ×2 (08:55→20:07)
[2019-03-18 09:00] VITALS: BP 137/82
--- NOTE | 2019-03-18 09:52 | Physical Therapy Daily Note ---
PT Daily Note-Current Subjective Pt up in chair, agreeable. Reports she is waiting for a pain pill, given post treatment. Pt reports "I do okay with some pain, I don't do well with high pain". Pain Numeric Pain Scale: 8 Location: Left Location Body Site: Knee Pain Description: Ache Mental Status Patient Orientation: Person, Place, Time, Situation Transfers Therapy Code Descriptions/Definitions Functional [place] Measure: 0=Not Assessed/NA 4=Minimal Assistance 1=Total Assistance 5=Supervision or Setup 2=Maximal Assistance 6=Modified [place] 3=Moderate Assistance 7=Complete [place] Therapy Quality Codes: 6 Independent with activity with or without an assistive device 5 Patient requires set up or clean up by helper. Patient completes activity by themselves 4 Supervision or touching assist (CGA). [place] provide cues , steadying assist 3 The helper provides less than half the effort to complete the activity 2 The helper provides more than half the effort to complete the activity 1 Dependent. The helper does all the effort to complete an activity 7 Patient refused to complete or attempt activity 9 The patient did not perform the activity before the current illness or injury 88 Not attempted due to Medical conditions or safety concerns Supine to/from Sit: 5 Sit to/from Stand: 5 Sit to Lying (QC): 5 Sit to Stand (QC): 5 Weight Bearing Right Lower Extremity: Right Full Weight Bearing Left Lower Extremity: Left Weight Bearing/Tolerated Gait Training Does the Patient Walk?: Yes Gait (FIM): 6 Distance (FIM): 3=150 ft Distance: 150 Walk 10 feet (QC): 6 Walk 50 ft with 2 Turns(QC): 6 Walk 150 ft (QC): 6 Gait Level of Assist: 6 Gait Assistive Device: FWW Pt ambulates with antalgic gait, decreased stance time on (L) LE. Limited heel strike, (L) knee in flexion throughout gait cycle. Skilled VCS for TKE and heel- toe gait. Wheelchair Training Does the Pt Use a Wheelchair?: No Exercises Seated Therapy Exercises: Long arc quads Seated Reps: 10 NuStep Minutes: 8 NuStep Workload: 4 Treatments Gait training, NuStep for ROM (L) knee. Educated on importance of positioning to obtain TKE and proper VMO facilitation with QS. Returned to bed with needs met. Assessment Current Status: Fair Progress Pt tolerated fair. Self limits ROM due to pain. PT Short Term Goals Short Term Goals Time Frame: Mar 23, 2019 Transfers (B,C,W/C) (FIM): 5 Gait (FIM): 5 PT Project Control Analyst Goals Project Control Analyst Goals PT Senior Living Goals Time Frame: Mar 30, 2019 Transfers (B,C,W/C) (FIM): 7 Sit to Lying (QC): 6 Lying-Sitting on Side/Bed(QC): 6 Sit to Stand (QC): 6 Rollin Roll Left to Right (QC): 6 Chair/Hyi-je-Pbiic Xfer(QC): 6 Car Transfer (QC): 6 Does the Patient Walk: Yes Gait (FIM): 6 Gait distance (FIM): 3=150 ft Distance: 300 ft Walk 10 feet (QC): 6 Walk 10ft-Uneven Surface(QC): 6 Walk 50ft with 2 Turns (QC): 6 Walk 150 ft (QC): 6 Gait Assistive Device: FWW Does the Pt use WC or Scooter?: No Stairs (FIM): 5 # of Steps: 4 1 Step (curb) (QC): 6 4 Steps (QC): 6 12 Steps (QC): 10 Picking up an Object (QC): 4 PT Plan Problem List Problem List: Activity Tolerance, Functional Strength, Safety, Balance, Gait, Transfer, Bed Mobility, ROM Treatment/Plan Treatment Plan: Continue Plan of Care Treatment Plan: Bed Mobility, Education, Functional Activity Serena, Functional Strength, Group Therapy, Gait, Safety, Therapeutic Exercise, Transfers Treatment Duration: Mar 30, 2019 Frequency: At least 5 of 7 days/Wk (IRF) Estimated Hrs Per Day: 1.5 hours per day Patient and/or Family Agrees t: Yes Safety Risks/Education Patient Education: Gait Training Teaching Recipient: Patient Teaching Methods: Demonstration, Discussion Response to Teaching: Verbalize Understanding, Reinforcement Needed Discharge Recommendations Therapy D/C Recommendations: Home w/ Family Support, Physical Therapy Home Care, Physical Therapy Outpatient Barriers to Progress pain Time/GCodes Time In: 0835 Time Out: 0907 Total Billed Treatment Time: 32 Total Billed Treatment 1, GT x 20', Ex x 12' MIRTA LEWIS DPT Mar 18, 2019 09:51
[2019-03-18] MEDS: DOCUSATE SODIUM 100 MG (COLACE) CAP PO SCH ×2 (11:01→20:07)
[2019-03-18] MEDS: POLYETHYLENE GLYCOL 17 GM (MIRALAX) PACK PO SCH ×2 (11:01→20:08)
[2019-03-18] MEDS: SENNA W/DOCUSATE (SENOKOT S) TABLET PO SCH ×2 (11:02→20:07)
--- NOTE | 2019-03-18 11:39 | PM&R Progress Note ---
Subjective HPI/CC On Admission Date Seen by Provider: Mar 18, 2019 Time Seen by Provider: 11:00 Chief Complaint: Debility following left total knee replacement HPI: This is a 74yoWF pt of Dr. Gonzalez who presents to the in patient rehab unit following slow recovery from a left total knee replacement uncomplicated by Dr. Anderson. Her PCP is Dr. Gonzalez her Outlet Manager is Dr. Combs. At this current time pt has not had a BM since before surgery so well need to work on that she feels pretty drained after walking with PT today and overall has had no other events during her hospital stay. 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 At this current time pt is deemed stable for transfer by her family to in patient rehab at [facility] and had an uneventful transport to [place]. Note per Satnam Hurtado [facility]: Ms. Arriaga is a 74 y/o female with a PMH of COPD, HTN, CAD, and hyperlipidemia who presents to the rehab unit s/p L TKA performed by Dr. Anderson on 03/14. She had a long history of L knee pain. She described the pain as a persistent popping and grinding. A diagnosis of severe Osteoarthritis was made by Dr. Anderson with a decision to move forward with a Left Total Knee replacement. Her post-op course has been uneventful. She classifies her current pain level as a 6/10 while working with OT. She lives alone in a single story home without internal stairs. There are a total of 3 steps needed to traverse in order to enter the home. 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 Subjective/Events-last exam Patient having pain but appears to be improved Ordered nebulizer treatments for subtle coarseness of the lungs and that appears to be working very well Reviewed labs which were all normal + Bm after multiple meds Check meds and labs Conferred with RN Reviewed therapy notes Patient has a slow recovery currently but with additional therapy and the structure in the inpatient rehab unit I have no doubt she will be successful at discharge and return home Review of Systems Pulmonary: Dyspnea Musculoskeletal: leg pain Objective Exam Vital Signs Vital Signs Date Time Temp Pulse Resp B/P (MAP) Pulse Ox O2 Delivery O2 Flow Rate FiO2 03/18/19 14:42 97 Room Air 03/18/19 05:46 99.0 71 18 116/62 (80) Capillary Refill : General Appearance: No Apparent Distress, WD/WN, Chronically ill HEENT: PERRL/EOMI, TMs Normal, Normal ENT Inspection, Pharynx Normal Respiratory: Chest Non Tender, Lungs Clear, No Accessory Muscle Use, No Respiratory Distress, Decreased Breath Sounds Cardiovascular: Regular Rate, Rhythm, No Edema, No Gallop, No JVD, No Murmur, Normal Peripheral Pulses Gastrointestinal: Normal Bowel Sounds, No Organomegaly, No Pulsatile Mass, Non Tender, Soft Rectal: Deferred Back: Normal Inspection, No CVA Tenderness, No Vertebral Tenderness Extremity: Normal Capillary Refill, Normal Inspection, Normal Range of Motion, Non Tender, No Calf Tenderness Neurologic/Psychiatric: Alert, Oriented x3, No Motor/Sensory Deficits, Normal Mood/Affect, ad operations specialist II-XII Norm as Tested Skin: Normal Color, Warm/Dry Lymphatic: No Adenopathy Results/Procedures Lab Laboratory Tests 03/18/19 06:06 Patient resulted labs reviewed. FIM Transfers Therapy Code Descriptions/Definitions Functional [place] Measure: 0=Not Assessed/NA 4=Minimal Assistance 1=Total Assistance 5=Supervision or Setup 2=Maximal Assistance 6=Modified [place] 3=Moderate Assistance 7=Complete [place] Therapy Quality Codes: 6 Independent with activity with or without an assistive device 5 Patient requires set up or clean up by helper. Patient completes activity by themselves 4 Supervision or touching assist (CGA). [place] provide cues , steadying assist 3 The helper provides less than half the effort to complete the activity 2 The helper provides more than half the effort to complete the activity 1 Dependent. The helper does all the effort to complete an activity 7 Patient refused to complete or attempt activity 9 The patient did not perform the activity before the current illness or injury 88 Not attempted due to Medical conditions or safety concerns Transfers (B, C, W/C) (FIM): 4 Scootin Rollin Roll Left to Right (QC): 4 Supine to/from Sit: 5 Sit to/from Stand: 5 Sit to Lying (QC): 5 Sit to Stand (QC): 5 Chair/Vom-bn-Frwqo Xfer(QC): 4 Car Transfer (QC): 3 (assist to get both legs in and out of the car ; assist to stand up) Gait Training Does the Patient Walk?: Yes Gait (FIM): 6 Distance (FIM): 3=150 ft Distance: 150 Walk 10 feet (QC): 6 Walk 50 ft with 2 Turns(QC): 6 Walk 150 ft (QC): 6 Walking 10ft/uneven surface-QC: 4 Gait Level of Assist: 6 Gait Persons Needed: 1 Gait Assistive Device: FWW Wheelchair Training Does the Pt Use a Wheelchair?: No Stair Training Stairs (FIM): 1 #of Steps: 1 1 Step (curb) (QC): 4 (min assist due to LE weakness and impaired ROM>) 4 Steps (QC): 88 Balance Picking up an Object (QC): 88 (unsafe to attempt) Mental Status/Objective Comprehension: 7 Expression: 7 Social Interaction: 7 Problem Solvin Memory: 6 ADL-Treatment Groomin (CGA in standing using counter for stability.) Oral Hygiene (QC): 4 Bathin Bathing Location: L Arm, R Arm, L Upper Leg, R Upper Leg, L Lower Leg (including foot), R Lower Leg (including foot), Chest, Abdomen, Buttocks, Perineal Area Shower/Bathe Self (QC): 4 Upper Extremity Dressin Upper Body Dressing (QC): 5 Lower Extremity Dressin Lower Body Dressing (QC): 3 On/Off Footwear (QC): 2 Toiletin Toileting Hygiene (QC): 4 Toilet/Commode Transfer: 4 Toilet Transfer (QC): 4 Shower: 4 Assessment/Plan Assessment and Plan Assess & Plan/Chief Complaint Assessment: Status post left total knee replacement uncomplicated Slow recovery COPD Current smoker Coarse breath sounds order nebulizers much improved Paroxysmal atrial fibrillation Long-term oral anticoagulation Postop constipation now resolved Hypertension Plan: BM regimen to continue Maintain inpatient rehab protocol Monitor pain and continue pain medication (1) Status post left knee replacement Status: Acute (2) COPD (chronic obstructive pulmonary disease) Status: Chronic Qualifiers: COPD type: unspecified COPD Qualified Codes: J44.9 - Chronic obstructive pulmonary disease, unspecified (3) Constipation Status: Acute Qualifiers: Constipation type: drug induced constipation Qualified Codes: K59.03 - Drug induced constipation (4) Hypertension Status: Chronic Qualifiers: Hypertension type: essential hypertension Qualified Codes: I10 - Essential (primary) hypertension (5) CAD (coronary artery disease) Status: Chronic Qualifiers: Coronary Disease-Associated Artery/Lesion type: [place] artery [place] vs. transplanted heart: [place] heart Associated angina: without angina Qualified Codes: I25.10 - Atherosclerotic heart disease of [place] coronary artery without angina pectoris (6) Paroxysmal atrial fibrillation (7) Debility Status: Acute (8) Anticoagulant long-term use Status: Chronic (9) Smoker Status: Chronic DANIEL THOMPSON DO Mar 18, 2019 11:39
[2019-03-18 16:18] VITALS: BP 126/64
[2019-03-19] MEDS: HYDROcodone/APAP 10 MG/325 MG (LORTAB) TAB PO PRN ×4 (04:13→21:53)
[2019-03-19 05:38] VITALS: BP 150/82
[2019-03-19 05:58] LABS: ALANINE AMINOTRANSFERASE 77 U/L (0-55); ALBUMIN 3.1 GM/DL (3.2-4.5); ALKALINE PHOSPHATASE 77 U/L (40-136); BILIRUBIN,TOTAL 0.7 MG/DL (0.1-1.0); BUN/CREATININE RATIO 23; CALCIUM 9.2 MG/DL (8.5-10.1); CARBON DIOXIDE 22 MMOL/L (21-32); CHLORIDE 104 MMOL/L (98-107); CREATININE SERUM 0.69 MG/DL (0.60-1.30); GFR ESTIMATED > 60; GLUCOSE 129 MG/DL (70-105); SODIUM 138 MMOL/L (135-145); TOTAL PROTEIN 5.8 GM/DL (6.4-8.2)
[2019-03-19] MEDS: RT-ALBUTEROL/IPRATROPIUM 3 ML (DUONEB) VIAL INH SCH ×3 (07:12→19:17)
[2019-03-19] MEDS: LACTOBACILLUS ACIDOPHILUS (PROBIOTIC) CAPSULE PO SCH (09:08)
[2019-03-19] MEDS: DOCUSATE SODIUM 100 MG (COLACE) CAP PO SCH ×3 (09:09→22:00)
[2019-03-19] MEDS: VALSARTAN 160 MG (DIOVAN) TABLET PO SCH (09:09)
[2019-03-19] MEDS: APIXABAN 5 MG (ELIQUIS) TABLET PO SCH ×2 (09:09→21:50)
[2019-03-19] MEDS: ASPIRIN 81 MG CHEW (CHILDREN'S ASA) PO SCH (09:09)
[2019-03-19] MEDS: PANTOPRAZOLE 40 MG (PROTONIX) TAB PO SCH (09:10)
[2019-03-19] MEDS: meTOprolol TARTRATE 50 MG (LOPRESSOR) TAB PO SCH ×2 (09:10→21:50)
[2019-03-19] MEDS: amLODIPine 10 MG (NORVASC) TAB PO SCH (09:10)
[2019-03-19] MEDS: MULTIVIT W/MINERALS TAB (THERAGRAN M) PO SCH (09:10)
[2019-03-19] MEDS: POLYETHYLENE GLYCOL 17 GM (MIRALAX) PACK PO SCH ×2 (09:11→22:00)
[2019-03-19] MEDS: VITAMIN D3 1,000 UNITS (CHOLECALCIFEROL) TABLET PO SCH (09:11)
[2019-03-19] MEDS: SENNA W/DOCUSATE (SENOKOT S) TABLET PO SCH ×2 (09:11→22:00)
[2019-03-19] MEDS: CALCIUM CARB + VIT D 600 MG (CALCARB + D) TAB PO SCH (09:54)
--- NOTE | 2019-03-19 11:07 | PM&R Progress Note ---
Subjective HPI/CC On Admission Date Seen by Provider: Mar 19, 2019 Time Seen by Provider: 10:45 Chief Complaint: Debility following left total knee replacement HPI: This is a 74yoWF pt of Dr. Gonzalez who presents to the in patient rehab unit following slow recovery from a left total knee replacement uncomplicated by Dr. Anderson. Her PCP is Dr. Gonzalez her Trash Truck Driver is Dr. Combs. At this current time pt has not had a BM since before surgery so well need to work on that she feels pretty drained after walking with PT today and overall has had no other events during her hospital stay. 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 At this current time pt is deemed stable for transfer by her family to in patient rehab at [facility] and had an uneventful transport to [place]. Note per Satnam Hurtado [facility]: Ms. Arriaga is a 74 y/o female with a PMH of COPD, HTN, CAD, and hyperlipidemia who presents to the rehab unit s/p L TKA performed by Dr. Anderson on 03/14. She had a long history of L knee pain. She described the pain as a persistent popping and grinding. A diagnosis of severe Osteoarthritis was made by Dr. Anderson with a decision to move forward with a Left Total Knee replacement. Her post-op course has been uneventful. She classifies her current pain level as a 6/10 while working with OT. She lives alone in a single story home without internal stairs. There are a total of 3 steps needed to traverse in order to enter the home. 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 Subjective/Events-last exam Patient having pain but appears to be greatly improved Ordered nebulizer treatments for subtle coarseness of the lungs and that appears to be working very well and we will continue this treatment Reviewed labs yesterday which were all normal + BM after multiple meds yesterday and today Dressing changed and no drainage Check meds and labs Conferred with RN Reviewed therapy notes Review of Systems General: Fatigue Musculoskeletal: leg pain Objective Exam Vital Signs Vital Signs Date Time Temp Pulse Resp B/P (MAP) Pulse Ox O2 Delivery O2 Flow Rate FiO2 03/19/19 15:56 97.7 74 16 123/78 (93 98 Room Air Capillary Refill : General Appearance: No Apparent Distress, WD/WN, Chronically ill HEENT: PERRL/EOMI, TMs Normal, Normal ENT Inspection, Pharynx Normal Respiratory: Chest Non Tender, Lungs Clear, No Accessory Muscle Use, No Respiratory Distress, Decreased Breath Sounds Cardiovascular: Regular Rate, Rhythm, No Edema, No Gallop, No JVD, No Murmur, Normal Peripheral Pulses Gastrointestinal: Normal Bowel Sounds, No Organomegaly, No Pulsatile Mass, Non Tender, Soft Rectal: Deferred Back: Normal Inspection, No CVA Tenderness, No Vertebral Tenderness Extremity: Normal Capillary Refill, Normal Inspection, Normal Range of Motion, Non Tender, No Calf Tenderness Neurologic/Psychiatric: Alert, Oriented x3, No Motor/Sensory Deficits, Normal Mood/Affect, electronic component processor II-XII Norm as Tested Skin: Normal Color, Warm/Dry Lymphatic: No Adenopathy Results/Procedures Lab Laboratory Tests 03/19/19 05:29 Patient resulted labs reviewed. FIM Transfers Therapy Code Descriptions/Definitions Functional [place] Measure: 0=Not Assessed/NA 4=Minimal Assistance 1=Total Assistance 5=Supervision or Setup 2=Maximal Assistance 6=Modified [place] 3=Moderate Assistance 7=Complete [place] Therapy Quality Codes: 6 Independent with activity with or without an assistive device 5 Patient requires set up or clean up by helper. Patient completes activity by themselves 4 Supervision or touching assist (CGA). [place] provide cues , steadying assist 3 The helper provides less than half the effort to complete the activity 2 The helper provides more than half the effort to complete the activity 1 Dependent. The helper does all the effort to complete an activity 7 Patient refused to complete or attempt activity 9 The patient did not perform the activity before the current illness or injury 88 Not attempted due to Medical conditions or safety concerns Transfers (B, C, W/C) (FIM): 4 Scootin Rollin Roll Left to Right (QC): 4 Supine to/from Sit: 5 Sit to/from Stand: 5 Sit to Lying (QC): 5 Sit to Stand (QC): 5 Chair/Vby-bv-Lfvyb Xfer(QC): 4 Car Transfer (QC): 3 (assist to get both legs in and out of the car ; assist to stand up) Gait Training Does the Patient Walk?: Yes Gait (FIM): 6 Distance (FIM): 3=150 ft Distance: 150 Walk 10 feet (QC): 6 Walk 50 ft with 2 Turns(QC): 6 Walk 150 ft (QC): 6 Walking 10ft/uneven surface-QC: 4 Gait Level of Assist: 6 Gait Persons Needed: 1 Gait Assistive Device: FWW Wheelchair Training Does the Pt Use a Wheelchair?: No Stair Training Stairs (FIM): 1 #of Steps: 1 1 Step (curb) (QC): 4 (min assist due to LE weakness and impaired ROM>) 4 Steps (QC): 88 Balance Picking up an Object (QC): 88 (unsafe to attempt) Mental Status/Objective Comprehension: 7 Expression: 7 Social Interaction: 7 Problem Solvin Memory: 6 ADL-Treatment Groomin (CGA in standing using counter for stability.) Oral Hygiene (QC): 4 Bathin Bathing Location: L Arm, R Arm, L Upper Leg, R Upper Leg, L Lower Leg (including foot), R Lower Leg (including foot), Chest, Abdomen, Buttocks, Perineal Area Shower/Bathe Self (QC): 4 Upper Extremity Dressin Upper Body Dressing (QC): 5 Lower Extremity Dressin Lower Body Dressing (QC): 3 On/Off Footwear (QC): 2 Toiletin Toileting Hygiene (QC): 4 Toilet/Commode Transfer: 4 Toilet Transfer (QC): 4 Shower: 4 Assessment/Plan Assessment and Plan Assess & Plan/Chief Complaint Assessment: Status post left total knee replacement uncomplicated Slow recovery COPD Current smoker Coarse breath sounds order nebulizers much improved Paroxysmal atrial fibrillation Long-term oral anticoagulation Postop constipation now resolved Hypertension Plan: BM regimen to continue Maintain inpatient rehab protocol Monitor pain and continue pain medication (1) Status post left knee replacement Status: Acute (2) COPD (chronic obstructive pulmonary disease) Status: Chronic Qualifiers: COPD type: unspecified COPD Qualified Codes: J44.9 - Chronic obstructive pulmonary disease, unspecified (3) Constipation Status: Acute Qualifiers: Constipation type: drug induced constipation Qualified Codes: K59.03 - Drug induced constipation (4) Hypertension Status: Chronic Qualifiers: Hypertension type: essential hypertension Qualified Codes: I10 - Essential (primary) hypertension (5) CAD (coronary artery disease) Status: Chronic Qualifiers: Coronary Disease-Associated Artery/Lesion type: [place] artery [place] vs. transplanted heart: [place] heart Associated angina: without angina Qualified Codes: I25.10 - Atherosclerotic heart disease of [place] coronary artery without angina pectoris (6) Paroxysmal atrial fibrillation (7) Debility Status: Acute (8) Anticoagulant long-term use Status: Chronic (9) Smoker Status: Chronic DANIEL THOMPSON DO Mar 19, 2019 11:07
[2019-03-19 15:56] VITALS: BP 123/78
[2019-03-20] MEDS: HYDROcodone/APAP 10 MG/325 MG (LORTAB) TAB PO PRN ×4 (04:34→19:43)
[2019-03-20 05:07] VITALS: BP 160/83
[2019-03-20 05:48] LABS: ALANINE AMINOTRANSFERASE 56 U/L (0-55); ALKALINE PHOSPHATASE 75 U/L (40-136); BILIRUBIN,TOTAL 0.5 MG/DL (0.1-1.0); BUN/CREATININE RATIO 16; CARBON DIOXIDE 23 MMOL/L (21-32); CHLORIDE 105 MMOL/L (98-107); CREATININE SERUM 0.74 MG/DL (0.60-1.30); GFR ESTIMATED > 60; GLUCOSE 118 MG/DL (70-105); POTASSIUM 4.4 MMOL/L (3.6-5.0); SODIUM 139 MMOL/L (135-145); TOTAL PROTEIN 5.6 GM/DL (6.4-8.2)
[2019-03-20] MEDS: RT-ALBUTEROL/IPRATROPIUM 3 ML (DUONEB) VIAL INH SCH ×3 (07:24→19:54)
[2019-03-20 08:00] VITALS: BP 132/67
--- NOTE | 2019-03-20 08:39 | PM&R Progress Note ---
Subjective HPI/CC On Admission Date Seen by Provider: Mar 20, 2019 Time Seen by Provider: 08:45 Chief Complaint: Debility following left total knee replacement HPI: This is a 74[address] pt [address] Dr[address] Gonzalez who presents to the in patient rehab unit following slow recovery from a left total knee replacement uncomplicated by Dr. Anderson. Her PCP is Dr. Gonzalez her Crew Lead is Dr. Combs. At this current time pt has not had a BM since before surgery so well need to work on that she feels pretty drained after walking with PT today and overall has had no other events during her hospital stay. 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 At this current time pt is deemed stable for transfer by her family to in patient rehab at [facility] and had an uneventful transport to [place]. Note per Satnam Hurtado [facility]: Ms. Arriaga is a 74 y/o female with a PMH of COPD, HTN, CAD, and hyperlipidemia who presents to the rehab unit s/p L TKA performed by Dr. Anderson on 03/14. She had a long history of L knee pain. She described the pain as a persistent popping and grinding. A diagnosis of severe Osteoarthritis was made by Dr. Anderson with a decision to move forward with a Left Total Knee replacement. Her post-op course has been uneventful. She classifies her current pain level as a 6/10 while working with OT. She lives alone in a single story home without internal stairs. There are a total of 3 steps needed to traverse in order to enter the home. 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 Subjective/Events-last exam Pt doing pretty well Heals are sore from the Mesfin hose so will remove those when we can Participating in all therapy CPM use maintained Having bowel movements Nebulizer treatments maintained Smoking cessation counseled Overall progressing nicely Check meds and labs Conferred with RN Reviewed therapy notes Review of Systems Musculoskeletal: leg pain Objective Exam Vital Signs Vital Signs Date Time Temp Pulse Resp B/P (MAP) Pulse Ox O2 Delivery O2 Flow Rate FiO2 03/20/19 19:54 98 Room Air 03/20/19 16:10 97.0 75 16 105/74 (84) Capillary Refill : General Appearance: No Apparent Distress, WD/WN, Chronically ill HEENT: PERRL/EOMI, TMs Normal, Normal ENT Inspection, Pharynx Normal Respiratory: Chest Non Tender, Lungs Clear, No Accessory Muscle Use, No Respiratory Distress, Decreased Breath Sounds Cardiovascular: Regular Rate, Rhythm, No Edema, No Gallop, No JVD, No Murmur, Normal Peripheral Pulses Gastrointestinal: Normal Bowel Sounds, No Organomegaly, No Pulsatile Mass, Non Tender, Soft Rectal: Deferred Back: Normal Inspection, No CVA Tenderness, No Vertebral Tenderness Extremity: Normal Capillary Refill, Normal Inspection, Normal Range of Motion, Non Tender, No Calf Tenderness Neurologic/Psychiatric: Alert, Oriented x3, No Motor/Sensory Deficits, Normal Mood/Affect, 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 FIM Transfers Therapy Code Descriptions/Definitions Functional [place] Measure: 0=Not Assessed/NA 4=Minimal Assistance 1=Total Assistance 5=Supervision or Setup 2=Maximal Assistance 6=Modified [place] 3=Moderate Assistance 7=Complete [place] Therapy Quality Codes: 6 Independent with activity with or without an assistive device 5 Patient requires set up or clean up by helper. Patient completes activity by themselves 4 Supervision or touching assist (CGA). [place] provide cues , steadying assist 3 The helper provides less than half the effort to complete the activity 2 The helper provides more than half the effort to complete the activity 1 Dependent. The helper does all the effort to complete an activity 7 Patient refused to complete or attempt activity 9 The patient did not perform the activity before the current illness or injury 88 Not attempted due to Medical conditions or safety concerns Transfers (B, C, W/C) (FIM): 4 Scootin Rollin Roll Left to Right (QC): 4 Supine to/from Sit: 5 Sit to/from Stand: 5 Sit to Lying (QC): 5 Sit to Stand (QC): 5 Chair/[id number]-vd-[id number] Xfer(QC): 4 Car Transfer (QC): 3 (assist to get both legs in and out of the car ; assist to stand up) Gait Training Does the Patient Walk?: Yes Gait (FIM): 6 Distance (FIM): 3=150 ft Distance: 150 Walk 10 feet (QC): 6 Walk 50 ft with 2 Turns(QC): 6 Walk 150 ft (QC): 6 Walking 10ft/uneven surface-QC: 4 Gait Level of Assist: 6 Gait Persons Needed: 1 Gait Assistive Device: FWW Wheelchair Training Does the Pt Use a Wheelchair?: No Stair Training Stairs (FIM): 1 #of Steps: 1 1 Step (curb) (QC): 4 (min assist due to LE weakness and impaired ROM>) 4 Steps (QC): 88 Balance Picking up an Object (QC): 88 (unsafe to attempt) Mental Status/Objective Comprehension: 7 Expression: 7 Social Interaction: 7 Problem Solvin Memory: 6 ADL-Treatment Groomin (CGA in standing using counter for stability.) Oral Hygiene (QC): 4 Bathin Bathing Location: L Arm, R Arm, L Upper Leg, R Upper Leg, L Lower Leg (including foot), R Lower Leg (including foot), Chest, Abdomen, Buttocks, Perineal Area Shower/Bathe Self (QC): 4 Upper Extremity Dressin Upper Body Dressing (QC): 5 Lower Extremity Dressin Lower Body Dressing (QC): 3 On/Off Footwear (QC): 2 Toiletin Toileting Hygiene (QC): 4 Toilet/Commode Transfer: 4 Toilet Transfer (QC): 4 Shower: 4 Assessment/Plan Assessment and Plan Assess & Plan/Chief Complaint Assessment: Status post left total knee replacement uncomplicated Slow recovery COPD Current smoker Coarse breath sounds order nebulizers much improved Paroxysmal atrial fibrillation Long-term oral anticoagulation Postop constipation now resolved Hypertension Plan: BM regimen to continue Maintain inpatient rehab protocol Monitor pain and continue pain medication Progressing nicely (1) Status post left knee replacement Status: Acute (2) COPD (chronic obstructive pulmonary disease) Status: Chronic Qualifiers: COPD type: unspecified COPD Qualified Codes: J44.9 - Chronic obstructive pulmonary disease, unspecified (3) Constipation Status: Acute Qualifiers: Constipation type: drug induced constipation Qualified Codes: K59.03 - Drug induced constipation (4) Hypertension Status: Chronic Qualifiers: Hypertension type: essential hypertension Qualified Codes: I10 - Essential (primary) hypertension (5) CAD (coronary artery disease) Status: Chronic Qualifiers: Coronary Disease-Associated Artery/Lesion type: [place] artery [place] vs. transplanted heart: [place] heart Associated angina: without angina Qualified Codes: I25.10 - Atherosclerotic heart disease of [place] coronary artery without angina pectoris (6) Paroxysmal atrial fibrillation (7) Debility Status: Acute (8) Anticoagulant long-term use Status: Chronic (9) Smoker Status: Chronic DANIEL THOMPSON DO Mar 20, 2019 08:39
[2019-03-20] MEDS: amLODIPine 10 MG (NORVASC) TAB PO SCH (09:00)
[2019-03-20] MEDS: meTOprolol TARTRATE 50 MG (LOPRESSOR) TAB PO SCH ×2 (09:00→21:27)
[2019-03-20] MEDS: VITAMIN D3 1,000 UNITS (CHOLECALCIFEROL) TABLET PO SCH (09:02)
[2019-03-20] MEDS: CALCIUM CARB + VIT D 600 MG (CALCARB + D) TAB PO SCH (09:02)
[2019-03-20] MEDS: PANTOPRAZOLE 40 MG (PROTONIX) TAB PO SCH (09:02)
[2019-03-20] MEDS: ASPIRIN 81 MG CHEW (CHILDREN'S ASA) PO SCH (09:02)
[2019-03-20] MEDS: VALSARTAN 160 MG (DIOVAN) TABLET PO SCH (09:02)
[2019-03-20] MEDS: LACTOBACILLUS ACIDOPHILUS (PROBIOTIC) CAPSULE PO SCH (09:03)
[2019-03-20] MEDS: SENNA W/DOCUSATE (SENOKOT S) TABLET PO SCH ×2 (09:06→21:29)
[2019-03-20] MEDS: APIXABAN 5 MG (ELIQUIS) TABLET PO SCH ×2 (09:08→21:27)
[2019-03-20] MEDS: DOCUSATE SODIUM 100 MG (COLACE) CAP PO SCH ×2 (09:08→21:33)
[2019-03-20] MEDS: MULTIVIT W/MINERALS TAB (THERAGRAN M) PO SCH (09:08)
[2019-03-20] MEDS: POLYETHYLENE GLYCOL 17 GM (MIRALAX) PACK PO SCH ×2 (09:09→21:29)
--- NOTE | 2019-03-20 10:39 | Occupational Ther Daily Note ---
OT Current Status-Daily Note Subjective Pt lying in bed alter. Pt agrees to take shower. Pt c/o of 7/10 pain. Nrsg gave pt pain pills while in shower. Mental Status/Objective Therapy Code Descriptions/Definitions Functional [place] Measure: 0=Not Assessed/NA 4=Minimal Assistance 1=Total Assistance 5=Supervision or Setup 2=Maximal Assistance 6=Modified [place] 3=Moderate Assistance 7=Complete [place] ADL-Treatment Therapy Code Descriptions/Definitions Functional [place] Measure: 0=Not Assessed/NA 4=Minimal Assistance 1=Total Assistance 5=Supervision or Setup 2=Maximal Assistance 6=Modified [place] 3=Moderate Assistance 7=Complete [place] Therapy Quality Codes: 6 Independent with activity with or without an assistive device 5 Patient requires set up or clean up by helper. Patient completes activity by themselves 4 Supervision or touching assist (CGA). [place] provide cues , steadying assist 3 The helper provides less than half the effort to complete the activity 2 The helper provides more than half the effort to complete the activity 1 Dependent. The helper does all the effort to complete an activity 7 Patient refused to complete or attempt activity 9 The patient did not perform the activity before the current illness or injury 88 Not attempted due to Medical conditions or safety concerns Grooming (FIM): 5 (Pt stood with walker at sink to brush teeth and hair, supervision. ) Oral Hygiene (QC): 4 Bathing (FIM): 5 (Pt required grabbar, long handed sponge, and hand held shower head. Pt washed, rinsed, and dried self, supervision. ) Bathing Location: L Arm, R Arm, L Upper Leg, R Upper Leg, L Lower Leg (including foot), R Lower Leg (including foot), Chest, Abdomen, Buttocks, Perineal Area Shower/Bathe Self (QC): 4 Upper Body (FIM): 5 (Pt donned upper body clothing after setup. ) Upper Body Dressing (QC): 5 Lower Body Dressing (FIM): 5 (Pt required assist donning/doffing PAUL hose. Pt used AE to doff/don L sock. Pt able to don/doff R sock w/o AE. Pt managed underpants and pants using FWW. ) Lower Body Dressing (QC): 4 On/Off Footwear (QC): 5 Toileting (FIM): 5 (Pt required grabbar and FWW, supervision. ) Toileting Hygiene (QC): 4 Transfers (B, C, W/C) (FIM): 5 (Pt required FWW and SBA for safety. ) Toilet/Commode Transfer (FIM): 5 (Pt required us of FWW and grabbar. ) Toilet Transfer (QC): 4 Shower Transfer(FIM): 5 (Pt required use of FWW, grabbar, and tub bench, supervision. ) Other Treatment Pt ambulated down to therapy gym using FWW. Pt used arm bike duration 15 min at 20 RPM to increase upper body strength for daily functional activity tasks. Pt participated in upper arm exercise using 2 lb dumb bells 3 reps of 10 on each arm to increase strength for functional activity tasks. Pt left in care of PT at therapy gym. All needs met. Education OT Patient Education: Modified ADL techniques, Use of adapted equipment Teaching Recipient: Patient Teaching Methods: Demonstration Response to Teaching: Verbalize Understanding, Return Demonstration OT Short Term Goals Short Term Goals Time Frame: Mar 23, 2019 Eating(FIM): 5 Grooming(FIM): 5 Bathing(FIM): 5 Upper Body Dressing(FIM): 5 Lower Body Dressing(FIM): 5 Toileting(FIM): 5 Transfers (B,C,W/C) (FIM): 5 Toilet/Commode Transfer(FIM): 5 Shower Transfer(FIM): 5 Additional Short Term Goals: 1-Demonstrate ADL Tasks, 2-Verbalize Understanding, 3-ImproveStrength/Serena 1=Demonstrate adherence to instructed precautions during ADL tasks. 2=Patient will verbalize/demonstrate understanding of assistive devices/modifications for ADL. 3=Patient will improve strength/tolerance for activity to enable patient to perform ADL's. OT Shelter Goals Shelter Goals Time Frame: Mar 30, 2019 Eating (FIM): 6 Eating (QC): 6 Groomin Oral Hygiene (QC): 6 Bathing(FIM): 6 Shower/Bathe Self (QC): 6 Upper Body Dressing(FIM): 6 Upper Body Dressing (QC): 6 Lower Body Dressing(FIM): 6 Lower Body Dressing (QC): 6 On/Off Footwear (QC): 6 Toileting(FIM): 6 Toileting Hygiene (QC): 6 Transfers (B,C,W/C) (FIM): 6 Toilet/Commode Transfer(FIM): 6 Toilet/Commode Transfer (QC): 6 Shower Transfer(FIM): 5 Additional Goals: 1-Demonstrate ADL Tasks, 2-Verbalize Understanding, 3- ImproveStrength/Serena 1=Demonstrate adherence to instructed precautions during ADL tasks. 2=Patient will verbalize/demonstrate understanding of assistive devices/modifications for ADL. 3=Patient will improve strength/tolerance for activity to enable patient to perform ADL's. OT Education/Plan Problem List/Assessment Assessment: Decreased UE Strength, Impaired Coordination, Impaired Funct Balance, Impaired Self-Care Skills Discharge Recommendations Plan/Recommendations: Continue POC Treatment Plan/Plan of Care Patient would benefit from OT for education, treatment and training to promote independence in ADL's, mobility, safety and/or upper extremity function for ADL's. Plan of Care: ADL Retraining, Functional Mobility, Group Exercise/Act as Ind, UE Funct Exercise/Act Treatment Duration: Mar 30, 2019 Frequency: At least 5 of 7 days/Wk (IRF) Estimated Hrs Per Day: 1.5 hours per day Agreement: Yes Rehab Potential: Good Time/GCodes Start Time: 08:30 Stop Time: 10:00 Total Time Billed (hr/min): 90 Billed Treatment Time 1 visit-ADL 4 (60 min) EX 2 (30 min) REYES RODRIGUEZ Mar 20, 2019 10:39
--- NOTE | 2019-03-20 10:51 | Progress Note - Hospitalist ---
[facility] 03/20/19 1051: Progress Note Ms. Arriaga continues to improve, but is limited by pain. She also has continues to struggle with constipation - continue aggressive bowel regimen She was observed moving well with OT this morning ambulating to the gym No other acute concerns EUGENIA CROW DO 03/20/192041: Supervisory-Addendum Brief Verification & Attestation Participated in pt care: history, MDM, physical Personally performed: exam, history, MDM, supervision of care Care discussed with: Medical Student Procedures: n/a Results interpretation: Verified all documentation Verification and Attestation of Medical Student E/M Service A medical student performed and documented this service in my presence. I reviewed and verified all information documented by the medical student and made modifications to such information, when appropriate. I personally performed the physical exam and medical decision making. Eugenia Crow, Mar 20, 2019,20:42 [facility] Mar 20, 2019 10:51 EUGENIA CROW DO Mar 20, 2019 20:42
--- NOTE | 2019-03-20 10:58 | Physical Therapy Daily Note ---
PT Daily Note-Current Subjective Pt. agrees to Rx, states pain in left knee is 8/10 at end of Rx. Pain Numeric Pain Scale: 8 Location: Left Location Body Site: Knee Pain Description: Ache Mental Status Patient Orientation: Normal For Age Transfers Therapy Code Descriptions/Definitions Functional [place] Measure: 0=Not Assessed/NA 4=Minimal Assistance 1=Total Assistance 5=Supervision or Setup 2=Maximal Assistance 6=Modified [place] 3=Moderate Assistance 7=Complete [place] Therapy Quality Codes: 6 Independent with activity with or without an assistive device 5 Patient requires set up or clean up by helper. Patient completes activity by themselves 4 Supervision or touching assist (CGA). [place] provide cues , steadying assist 3 The helper provides less than half the effort to complete the activity 2 The helper provides more than half the effort to complete the activity 1 Dependent. The helper does all the effort to complete an activity 7 Patient refused to complete or attempt activity 9 The patient did not perform the activity before the current illness or injury 88 Not attempted due to Medical conditions or safety concerns Transfers (B, C, W/C) (FIM): 6 Scootin Rollin Supine to/from Sit: 6 Sit to/from Stand: 6 Weight Bearing Right Lower Extremity: Right Full Weight Bearing Left Lower Extremity: Left Weight Bearing/Tolerated Gait Training Does the Patient Walk?: Yes Gait (FIM): 5 Distance (FIM): 3=150 ft (165x3,50) Gait Level of Assist: 5 Gait Persons Needed: 1 Gait Assistive Device: FWW instruction in heel strike and knee extension in swing and strike phase, pt. lacks extension left causing antalgia Stair Training Stair Training: Handrails/: 2 handrails Stairs (FIM): 5 #of Steps: 4 Stairs: Pattern: Step to Level of Assist: 5 household exception Exercises Supine Ex: Ankle pumps, Quad Set, Heel Slides, Short Arc Quads, Straight leg raise Supine Reps: 12 (x2) Seated Therapy Exercises: Ankle pumps, Sit to stand, Long arc quads, Hip flexion Seated Reps: 15 (x2) NuStep Minutes: 12 NuStep Workload: 3 Treatments Nustep leg presses x12, seated slide stretches 4 x 15 sec ea. Polar pack and CPM insitu, CPM 0-70degrees, pt. instructed to not put pillow under knee unless she is in much pain and needs to get relief to try to work on extension left knee Assessment Current Status: Good Progress PT Short Term Goals Short Term Goals Time Frame: Mar 23, 2019 Transfers (B,C,W/C) (FIM): 5 Gait (FIM): 5 PT Radio Journalist Goals Radio Journalist Goals PT Radio Journalist Goals Time Frame: Mar 30, 2019 Transfers (B,C,W/C) (FIM): 7 Sit to Lying (QC): 6 Lying-Sitting on Side/Bed(QC): 6 Sit to Stand (QC): 6 Rollin Roll Left to Right (QC): 6 Chair/Tze-fs-Xwqjg Xfer(QC): 6 Car Transfer (QC): 6 Does the Patient Walk: Yes Gait (FIM): 6 Gait distance (FIM): 3=150 ft Distance: 300 ft Walk 10 feet (QC): 6 Walk 10ft-Uneven Surface(QC): 6 Walk 50ft with 2 Turns (QC): 6 Walk 150 ft (QC): 6 Gait Assistive Device: FWW Does the Pt use WC or Scooter?: No Stairs (FIM): 5 # of Steps: 4 1 Step (curb) (QC): 6 4 Steps (QC): 6 12 Steps (QC): 10 Picking up an Object (QC): 4 PT Plan Treatment/Plan Treatment Plan: Continue Plan of Care Treatment Plan: Bed Mobility, Education, Functional Activity Serena, Functional Strength, Group Therapy, Gait, Safety, Therapeutic Exercise, Transfers Treatment Duration: Mar 30, 2019 Frequency: At least 5 of 7 days/Wk (IRF) Estimated Hrs Per Day: 1.5 hours per day Patient and/or Family Agrees t: Yes Safety Risks/Education Patient Education: Gait Training, Transfer Techniques, Correct Positioning, Disease Process, Safety Issues Teaching Recipient: Patient Teaching Methods: Demonstration, Discussion Response to Teaching: Verbalize Understanding, Return Demonstration, Alejandro nforcement Needed Time/GCodes Time In: 1000 (1400) Time Out: 1100 (1430) Total Billed Treatment Time: 90 Total Billed Treatment 1,EX35m,FA25m,GT30m LARA FREEMAN WINE PASTEURIZER Mar 20, 2019 10:58
[2019-03-20 16:10] VITALS: BP 105/74
--- NOTE | 2019-03-20 19:20 | NUR ---
bedside report received from SAM ESQUIVEL, assume care of pt
--- NOTE | 2019-03-20 19:43 | NUR ---
pt c/o pain level 9/10 on numeric scale, Lortab 10 1 tab po given
--- NOTE | 2019-03-20 20:30 | NUR ---
rates pain level 5/10 on numeric scale
[2019-03-20 21:30] VITALS: BP 122/74
--- NOTE | 2019-03-20 21:35 | NUR ---
assessments & interventions completed, see assessments & interventions, pt refused Colace, miralax & Senokot, states had several stools today
--- NOTE | 2019-03-20 22:06 | NUR ---
c/o pain level 7/10 on numeric scale, Ultram 50mg po given
--- NOTE | 2019-03-20 23:00 | NUR ---
resting quietly in bed, pain level 0/10 on flacc scale
[2019-03-21] MEDS: HYDROcodone/APAP 10 MG/325 MG (LORTAB) TAB PO PRN ×4 (02:48→20:02)
--- NOTE | 2019-03-21 02:48 | NUR ---
c/o pain level 9/10 on numeric scale, Lortab 10 1 tab po given
--- NOTE | 2019-03-21 03:30 | NUR ---
rates pain level 5/10 on numeric scale
[2019-03-21 05:41] VITALS: BP 126/76
--- NOTE | 2019-03-21 06:15 | NUR ---
c/o pain level 7/10 numeric scale, Ultram 50mg po given
--- NOTE | 2019-03-21 07:08 | NUR ---
rates pain at 5/10 on numeric scale
--- NOTE | 2019-03-21 07:21 | NUR ---
bedside report given to SAM ESQUIVEL
[2019-03-21] MEDS: RT-ALBUTEROL/IPRATROPIUM 3 ML (DUONEB) VIAL INH SCH ×3 (07:45→20:33)
[2019-03-21 08:00] VITALS: BP 103/59
[2019-03-21] MEDS: VALSARTAN 160 MG (DIOVAN) TABLET PO SCH (08:22)
[2019-03-21] MEDS: LACTOBACILLUS ACIDOPHILUS (PROBIOTIC) CAPSULE PO SCH (08:22)
[2019-03-21] MEDS: CALCIUM CARB + VIT D 600 MG (CALCARB + D) TAB PO SCH (08:23)
[2019-03-21] MEDS: amLODIPine 10 MG (NORVASC) TAB PO SCH (08:23)
[2019-03-21] MEDS: VITAMIN D3 1,000 UNITS (CHOLECALCIFEROL) TABLET PO SCH (08:23)
[2019-03-21] MEDS: meTOprolol TARTRATE 50 MG (LOPRESSOR) TAB PO SCH ×2 (08:24→20:02)
[2019-03-21] MEDS: PANTOPRAZOLE 40 MG (PROTONIX) TAB PO SCH (08:24)
[2019-03-21] MEDS: ASPIRIN 81 MG CHEW (CHILDREN'S ASA) PO SCH (08:24)
[2019-03-21] MEDS: MULTIVIT W/MINERALS TAB (THERAGRAN M) PO SCH (08:24)
[2019-03-21] MEDS: POLYETHYLENE GLYCOL 17 GM (MIRALAX) PACK PO SCH ×2 (08:27→20:06)
[2019-03-21] MEDS: SENNA W/DOCUSATE (SENOKOT S) TABLET PO SCH ×2 (08:27→20:08)
[2019-03-21] MEDS: DOCUSATE SODIUM 100 MG (COLACE) CAP PO SCH ×2 (08:27→20:02)
--- NOTE | 2019-03-21 08:30 | NUR ---
STATES AWAKE MORE DURING NIGHT LAST NIGHT SO MORE AWARE OF KNEE PAIN. WILL TRY SLEEPING PILL TONIGHT. COMPLAIN HEELS RUBBING ON BED. PAUL HOSE LEFT OFF PER PATIENT REQUEST AND ALLEVYN PUT ON BOTH HEELS.
[2019-03-21] MEDS: APIXABAN 5 MG (ELIQUIS) TABLET PO SCH ×2 (08:35→20:02)
--- NOTE | 2019-03-21 09:02 | PM&R Progress Note ---
Subjective HPI/CC On Admission Date Seen by Provider: Mar 21, 2019 Time Seen by Provider: 09:00 Chief Complaint: Debility following left total knee replacement HPI: This is a 74[address] pt [address] Gonzalez who presents to the in patient rehab unit following slow recovery from a left total knee replacement uncomplicated by Dr. Anderson. Her PCP is Dr. Gonzalez her Cotton Chopper is Dr. Combs. At this current time pt has not had a BM since before surgery so well need to work on that she feels pretty drained after walking with PT today and overall has had no other events during her hospital stay. 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 At this current time pt is deemed stable for transfer by her family to in patient rehab at [facility] and had an uneventful transport to [place]. Note per Sat[facility] Hurtado [facility]: Ms. Arriaga is a 74 y/o female with a PMH of COPD, HTN, CAD, and hyperlipidemia who presents to the rehab unit s/p L TKA performed by Dr. Anderson on 03/14. She had a long history of L knee pain. She described the pain as a persistent popping and grinding. A diagnosis of severe Osteoarthritis was made by Dr. Anderson with a decision to move forward with a Left Total Knee replacement. Her post-op course has been uneventful. She classifies her current pain level as a 6/10 while working with OT. She lives alone in a single story home without internal stairs. There are a total of 3 steps needed to traverse in order to enter the home. 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 Subjective/Events-last exam Having some insomnia issues so PCP Dr. Gonzalez will be notified because she has really never had any issues like this. Pain is still an issue, trying her best to get past it. Participating in all therapy. Lungs are a little bit course today, maintained on breathing treatments and IS use. Bowels are moving. Checked meds and labs. Elevated LFT's noted but trend is down Conferred with RN Reviewed therapy notes Review of Systems Pulmonary: Dyspnea Musculoskeletal: leg pain Objective Exam Vital Signs Vital Signs Date Time Temp Pulse Resp B/P (MAP) Pulse Ox O2 Delivery O2 Flow Rate FiO2 8/20/19 17:11 97.8 66 18 125/74 (91) 99 Room Air Capillary Refill : General Appearance: No Apparent Distress, WD/WN, Chronically ill HEENT: PERRL/EOMI, TMs Normal, Normal ENT Inspection, Pharynx Normal Respiratory: Chest Non Tender, Lungs Clear, No Accessory Muscle Use, No Respiratory Distress, Decreased Breath Sounds Cardiovascular: Regular Rate, Rhythm, No Edema, No Gallop, No JVD, No Murmur, Normal Peripheral Pulses Gastrointestinal: Normal Bowel Sounds, No Organomegaly, No Pulsatile Mass, Non Tender, Soft Rectal: Deferred Back: Normal Inspection, No CVA Tenderness, No Vertebral Tenderness Extremity: Normal Capillary Refill, Normal Inspection, Normal Range of Motion, Non Tender, No Calf Tenderness Neurologic/Psychiatric: Alert, Oriented x3, No Motor/Sensory Deficits, Normal 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 FIM Transfers Therapy Code Descriptions/Definitions Functional [place] Measure: 0=Not Assessed/NA 4=Minimal Assistance 1=Total Assistance 5=Supervision or Setup 2=Maximal Assistance 6=Modified [place] 3=Moderate Assistance 7=Complete [place] Therapy Quality Codes: 6 Independent with activity with or without an assistive device 5 Patient requires set up or clean up by helper. Patient completes activity by themselves 4 Supervision or touching assist (CGA). [place] provide cues , steadying assist 3 The helper provides less than half the effort to complete the activity 2 The helper provides more than half the effort to complete the activity 1 Dependent. The helper does all the effort to complete an activity 7 Patient refused to complete or attempt activity 9 The patient did not perform the activity before the current illness or injury 88 Not attempted due to Medical conditions or safety concerns Transfers (B, C, W/C) (FIM): 5 (Pt required FWW and SBA for safety. ) Scootin Rollin Roll Left to Right (QC): 4 Supine to/from Sit: 6 Sit to/from Stand: 6 Sit to Lying (QC): 5 Sit to Stand (QC): 5 Chair/Rlb-ga-Cfsrp Xfer(QC): 4 Car Transfer (QC): 3 (assist to get both legs in and out of the car ; assist to stand up) Gait Training Does the Patient Walk?: Yes Gait (FIM): 5 Distance (FIM): 3=150 ft (165x3,50) Distance: 150 Walk 10 feet (QC): 6 Walk 50 ft with 2 Turns(QC): 6 Walk 150 ft (QC): 6 Walking 10ft/uneven surface-QC: 4 Gait Level of Assist: 5 Gait Persons Needed: 1 Gait Assistive Device: FWW Wheelchair Training Does the Pt Use a Wheelchair?: No Stair Training Stair Training: Handrails/: 2 handrails Stairs (FIM): 5 #of Steps: 4 1 Step (curb) (QC): 4 (min assist due to LE weakness and impaired ROM>) 4 Steps (QC): 88 Stairs: Pattern: Step to Level of Assist: 5 Balance Picking up an Object (QC): 88 (unsafe to attempt) Mental Status/Objective Comprehension: 7 Expression: 7 Social Interaction: 7 Problem Solvin Memory: 6 ADL-Treatment Groomin (Pt stood with walker at sink to brush teeth and hair, supervision. ) Oral Hygiene (QC): 4 Bathin (Pt required grabbar, long handed sponge, and hand held shower head. Pt washed, rinsed, and dried self, supervision. ) Bathing Location: L Arm, R Arm, L Upper Leg, R Upper Leg, L Lower Leg (including foot), R Lower Leg (including foot), Chest, Abdomen, Buttocks, Perineal Area Shower/Bathe Self (QC): 4 Upper Extremity Dressin (Pt donned upper body clothing after setup. ) Upper Body Dressing (QC): 5 Lower Extremity Dressin (Pt required assist donning/doffing PAUL hose. Pt used AE to doff/don L sock. Pt able to don/doff R sock w/o AE. Pt managed underpants and pants using FWW. ) Lower Body Dressing (QC): 4 On/Off Footwear (QC): 5 Toiletin (Pt required grabbar and FWW, supervision. ) Toileting Hygiene (QC): 4 Toilet/Commode Transfer: 5 (Pt required us of FWW and grabbar. ) Toilet Transfer (QC): 4 Shower: 5 (Pt required use of FWW, grajayme, and [facility], supervision. ) Assessment/Plan Assessment and Plan Assess & Plan/Chief Complaint Assessment: Status post left total knee replacement uncomplicated Slow recovery COPD Current smoker Coarse breath sounds order nebulizers much improved Paroxysmal atrial fibrillation Long-term oral anticoagulation Postop constipation now resolved Hypertension LFT elevation Insomnia Plan: BM regimen to continue Maintain inpatient rehab protocol Monitor pain and continue pain medication Progressing nicely PCP to help with insomnia (1) Status post left knee replacement Status: Acute (2) COPD (chronic obstructive pulmonary disease) Status: Chronic Qualifiers: COPD type: unspecified COPD Qualified Codes: J44.9 - Chronic obstructive pulmonary disease, unspecified (3) Constipation Status: Acute Qualifiers: Constipation type: drug induced constipation Qualified Codes: K59.03 - Drug induced constipation (4) Hypertension Status: Chronic Qualifiers: Hypertension type: essential hypertension Qualified Codes: I10 - Essential (primary) hypertension (5) CAD (coronary artery disease) Status: Chronic Qualifiers: Coronary Disease-Associated Artery/Lesion type: [place] artery [place] vs. transplanted heart: eagle heart Associated angina: without angina Qualified Codes: I25.10 - Atherosclerotic heart disease of eagle coronary artery without angina pectoris (6) Paroxysmal atrial fibrillation (7) Debility Status: Acute (8) Anticoagulant long-term use Status: Chronic (9) Smoker Status: Chronic (10) Elevated liver enzymes Status: Acute (11) Insomnia Status: Acute Qualifiers: Insomnia type: primary Qualified Codes: F51.01 - Primary insomnia DANIEL THOMPSON DO Mar 21, 2019 09:02
--- NOTE | 2019-03-21 10:05 | Progress Note - Hospitalist ---
CHRISTINA BRAVO [facility] 03/21/19 1005: Progress Note Jd continues to work despite continued issues with pain She had a large BM yesterday She has not been sleeping well at night. Having trouble staying asleep. Reach out to PCP (Lisa) for assistance in management. EUGENIA CROW DO 03/21/192053: Supervisory-Addendum Brief Verification & Attestation Participated in pt care: history, MDM, physical Personally performed: exam, history, MDM, supervision of care Care discussed with: Medical Student Procedures: n/a Results interpretation: Verified all documentation Verification and Attestation of Medical Student E/M Service A medical student performed and documented this service in my presence. I reviewed and verified all information documented by the medical student and made modifications to such information, when appropriate. I personally performed the physical exam and medical decision making. Eugenia Crow, Mar 21, 2019,20:53 CHRISTINA BRAVO [facility] Mar 21, 2019 10:05 EUGENIA CROW DO Mar 21, 2019 20:54
--- NOTE | 2019-03-21 10:20 | NUR ---
Pastoral care visit.
--- NOTE | 2019-03-21 10:35 | Occupational Ther Daily Note ---
OT Current Status-Daily Note Subjective Pt lying in bed and alert upon OT arrival. Pt c/o of pain in upper portion of thigh, did not rate. Pt agrees to therapy. Mental Status/Objective Patient Orientation: Person, Place, Time, Situation Therapy Code Descriptions/Definitions Functional [place] Measure: 0=Not Assessed/NA 4=Minimal Assistance 1=Total Assistance 5=Supervision or Setup 2=Maximal Assistance 6=Modified [place] 3=Moderate Assistance 7=Complete [place] ADL-Treatment Declined bathing, wanted to sponge bathe and change clothing. Therapy Code Descriptions/Definitions Functional [place] Measure: 0=Not Assessed/NA 4=Minimal Assistance 1=Total Assistance 5=Supervision or Setup 2=Maximal Assistance 6=Modified [place] 3=Moderate Assistance 7=Complete [place] Therapy Quality Codes: 6 Independent with activity with or without an assistive device 5 Patient requires set up or clean up by helper. Patient completes activity by themselves 4 Supervision or touching assist (CGA). [place] provide cues , steadying assist 3 The helper provides less than half the effort to complete the activity 2 The helper provides more than half the effort to complete the activity 1 Dependent. The helper does all the effort to complete an activity 7 Patient refused to complete or attempt activity 9 The patient did not perform the activity before the current illness or injury 88 Not attempted due to Medical conditions or safety concerns Grooming (FIM): 6 (Pt stood at sink using FWW to brush teeth and hair. ) Oral Hygiene (QC): 6 Upper Body (FIM): 5 (Pt don/doffed shirt while sitting EOB, set up. ) Upper Body Dressing (QC): 5 Lower Body Dressing (FIM): 5 (Pt doffed underwear and pants at toilet. Pt donned underwear and pants sitting EOB needing FWW to hold onto while managing clothing. Pt able to doff/don socks. ) Lower Body Dressing (QC): 4 (Supervision) On/Off Footwear (QC): 5 Toileting (FIM): 5 (Pt required grabbar and FWW. Pt able to adjust clothing properly and cleanse self after voiding, supervision. ) Toileting Hygiene (QC): 4 Transfers (B, C, W/C) (FIM): 5 (Pt used FWW, supervision. ) Toilet/Commode Transfer (FIM): 5 (Supervision. Using FWW and grabbars pt able to complete.) Toilet Transfer (QC): 4 Other Treatment Pt ambulated self to therapy gym CGA, stecori. Pt participated in L/R shoulder ROM exercise using 2 lb wrist weights to increase strength for daily activity task. Pt participated in upper body exercise using 2 lb dumb bells to increase strength for daily functional activity tasks. Pt left sitting in chair with call light and phone in reach. Pts needs met. Nrsg in room. OT Short Term Goals Short Term Goals Time Frame: Mar 23, 2019 Eating(FIM): 5 Grooming(FIM): 5 Bathing(FIM): 5 Upper Body Dressing(FIM): 5 Lower Body Dressing(FIM): 5 Toileting(FIM): 5 Transfers (B,C,W/C) (FIM): 5 Toilet/Commode Transfer(FIM): 5 Shower Transfer(FIM): 5 Additional Short Term Goals: 1-Demonstrate ADL Tasks, 2-Verbalize Understanding, 3-ImproveStrength/Serena 1=Demonstrate adherence to instructed precautions during ADL tasks. 2=Patient will verbalize/demonstrate understanding of assistive devices/modifications for ADL. 3=Patient will improve strength/tolerance for activity to enable patient to perform ADL's. OT Fsr Goals Nursing Home Goals Time Frame: Mar 30, 2019 Eating (FIM): 6 Eating (QC): 6 Groomin Oral Hygiene (QC): 6 Bathing(FIM): 6 Shower/Bathe Self (QC): 6 Upper Body Dressing(FIM): 6 Upper Body Dressing (QC): 6 Lower Body Dressing(FIM): 6 Lower Body Dressing (QC): 6 On/Off Footwear (QC): 6 Toileting(FIM): 6 Toileting Hygiene (QC): 6 Transfers (B,C,W/C) (FIM): 6 Toilet/Commode Transfer(FIM): 6 Toilet/Commode Transfer (QC): 6 Shower Transfer(FIM): 5 Additional Goals: 1-Demonstrate ADL Tasks, 2-Verbalize Understanding, 3-ImproveStrength/Serena 1=Demonstrate adherence to instructed precautions during ADL tasks. 2=Patient will verbalize/demonstrate understanding of assistive devices/modifications for ADL. 3=Patient will improve strength/tolerance for activity to enable patient to perf orm ADL's. OT Education/Plan Problem List/Assessment Assessment: Decreased Activ Tolerance, Decreased UE Strength, Impaired Self- Care Skills Discharge Recommendations Plan/Recommendations: Continue POC Treatment Plan/Plan of Care Patient would benefit from OT for education, treatment and training to promote independence in ADL's, mobility, safety and/or upper extremity function for ADL's. Plan of Care: ADL Retraining, Functional Mobility, Group Exercise/Act as Ind, UE Funct Exercise/Act Treatment Duration: Mar 30, 2019 Frequency: At least 5 of 7 days/Wk (IRF) Estimated Hrs Per Day: 1.5 hours per day Agreement: Yes Rehab Potential: Good Time/GCodes Start Time: 09:30 Stop Time: 10:30 Total Time Billed (hr/min): 60 Billed Treatment Time 1 visit-ADL 2 (30 min) EX 2 (30 min) REYES RODRIGUEZ Mar 21, 2019 10:35
--- NOTE | 2019-03-21 11:00 | NUR ---
PATIENT STATES WILL TRY MELATONIN FOR SLEEP TONIGHT.
--- NOTE | 2019-03-21 11:52 | Physical Therapy Daily Note ---
PT Daily Note-Current Subjective Pt sitting in recliner upon arrival. Pt agrees to PT. Pain Numeric Pain Scale: 7 Location: Incisional, Left Location Body Site: Knee Pain Description: Ache, Tightness Mental Status Patient Orientation: Person, Place, Time, Situation Transfers Therapy Code Descriptions/Definitions Functional [place] Measure: 0=Not Assessed/NA 4=Minimal Assistance 1=Total Assistance 5=Supervision or Setup 2=Maximal Assistance 6=Modified [place] 3=Moderate Assistance 7=Complete [place] Therapy Quality Codes: 6 Independent with activity with or without an assistive device 5 Patient requires set up or clean up by helper. Patient completes activity by themselves 4 Supervision or touching assist (CGA). [place] provide cues , steadying assist 3 The helper provides less than half the effort to complete the activity 2 The helper provides more than half the effort to complete the activity 1 Dependent. The helper does all the effort to complete an activity 7 Patient refused to complete or attempt activity 9 The patient did not perform the activity before the current illness or injury 88 Not attempted due to Medical conditions or safety concerns Scootin Sit to/from Stand: 5 Sit to Stand (QC): 5 Weight Bearing Right Lower Extremity: Right Full Weight Bearing Left Lower Extremity: Left Weight Bearing/Tolerated Gait Training Does the Patient Walk?: Yes Gait (FIM): 5 Distance (FIM): 3=150 ft Distance: 150' Walk 10 feet (QC): 5 Walk 50 ft with 2 Turns(QC): 5 Walk 150 ft (QC): 5 Gait Level of Assist: 5 Gait Persons Needed: 1 Gait Assistive Device: FWW Pt walks with antalgic gait pattern. DOUBLE END SEWER encourages pt to normalize gait as much as pt can tolerate, WBAT. Wheelchair Training Does the Pt Use a Wheelchair?: No Exercises Seated Therapy Exercises: Ankle pumps, Long arc quads, Hip flexion, Kicking activity Seated Reps: 20 NuStep Minutes: 12 NuStep Workload: 4 Treatments Pt transfers from recliner to standing and ambulates in hallway. Pt uses NuStep for 12m at WL 4 before short RB. Pt completes Seated Ex then ambulates in hallway before returning to room. Pt resting with B LE elevated, ice pack on L LE. Pt has all needs met, call light in hand. Assessment Current Status: Good Progress Pt is limited at this point by pain in L knee. PT Short Term Goals Short Term Goals Time Frame: Mar 23, 2019 Transfers (B,C,W/C) (FIM): 5 Gait (FIM): 5 PT Glassware Selector Goals Assisted Goals PT Assisted Goals Time Frame: Mar 30, 2019 Transfers (B,C,W/C) (FIM): 7 Sit to Lying (QC): 6 Lying-Sitting on Side/Bed(QC): 6 Sit to Stand (QC): 6 Rollin Roll Left to Right (QC): 6 Chair/Kjh-dd-Iwmpv Xfer(QC): 6 Car Transfer (QC): 6 Does the Patient Walk: Yes Gait (FIM): 6 Gait distance (FIM): 3=150 ft Distance: 300 ft Walk 10 feet (QC): 6 Walk 10ft-Uneven Surface(QC): 6 Walk 50ft with 2 Turns (QC): 6 Walk 150 ft (QC): 6 Gait Assistive Device: FWW Does the Pt use WC or Scooter?: No Stairs (FIM): 5 # of Steps: 4 1 Step (curb) (QC): 6 4 Steps (QC): 6 12 Steps (QC): 10 Picking up an Object (QC): 4 PT Plan Problem List Problem List: Activity Tolerance, Functional Strength, Gait Treatment/Plan Treatment Plan: Continue Plan of Care Treatment Plan: Bed Mobility, Education, Functional Activity Serena, Functional Strength, Group Therapy, Gait, Safety, Therapeutic Exercise, Transfers Treatment Duration: Mar 30, 2019 Frequency: At least 5 of 7 days/Wk (IRF) Estimated Hrs Per Day: 1.5 hours per day Patient and/or Family Agrees t: Yes Safety Risks/Education Patient Education: Gait Training, Correct Positioning, Safety Issues Teaching Recipient: Patient Teaching Methods: Discussion Response to Teaching: Verbalize Understanding Time/GCodes Time In: 1100 Time Out: 1200 Total Billed Treatment Time: 60 Total Billed Treatment 1, GT (20m), FA (15m) & EX x2 (25m) MONALISA AMES DOUBLE END SEWER Mar 21, 2019 11:52
--- NOTE | 2019-03-21 13:35 | Occupational Ther Daily Note ---
OT Current Status-Daily Note Subjective Pt awake in chair. Pt agrees to therapy. Mental Status/Objective Patient Orientation: Person, Place, Time, Situation Therapy Code Descriptions/Definitions Functional [place] Measure: 0=Not Assessed/NA 4=Minimal Assistance 1=Total Assistance 5=Supervision or Setup 2=Maximal Assistance 6=Modified [place] 3=Moderate Assistance 7=Complete [place] ADL-Treatment Therapy Code Descriptions/Definitions Functional [place] Measure: 0=Not Assessed/NA 4=Minimal Assistance 1=Total Assistance 5=Supervision or Setup 2=Maximal Assistance 6=Modified [place] 3=Moderate Assistance 7=Complete [place] Therapy Quality Codes: 6 Independent with activity with or without an assistive device 5 Patient requires set up or clean up by helper. Patient completes activity by themselves 4 Supervision or touching assist (CGA). [place] provide cues , steadying assist 3 The helper provides less than half the effort to complete the activity 2 The helper provides more than half the effort to complete the activity 1 Dependent. The helper does all the effort to complete an activity 7 Patient refused to complete or attempt activity 9 The patient did not perform the activity before the current illness or injury 88 Not attempted due to Medical conditions or safety concerns Toileting (FIM): 5 (Pt able to adjust clothing before and after voiding. Pt demo ability to cleanse self after voiding. ) Transfers (B, C, W/C) (FIM): 4 (Pt used FWW and chair arms, steadying ) Toilet/Commode Transfer (FIM): 5 (Pt used FWW and grabbar, supervision. ) Other Treatment Pt ambulated to therapy gym. Pt participated in arm bike exercise to increase daily activity task, duration 15 min and 25 watt. Pt ambulated back to room. Pt left in bed, ice pack on L knee, call light and phone in reach, pts needs met. OT Short Term Goals Short Term Goals Time Frame: Mar 23, 2019 Eating(FIM): 5 Grooming(FIM): 5 Bathing(FIM): 5 Upper Body Dressing(FIM): 5 Lower Body Dressing(FIM): 5 Toileting(FIM): 5 Transfers (B,C,W/C) (FIM): 5 Toilet/Commode Transfer(FIM): 5 Shower Transfer(FIM): 5 Additional Short Term Goals: 1-Demonstrate ADL Tasks, 2-Verbalize Understanding, 3-ImproveStrength/Serena 1=Demonstrate adherence to instructed precautions during ADL tasks. 2=Patient will verbalize/demonstrate understanding of assistive devices/modifications for ADL. 3=Patient will improve strength/tolerance for activity to enable patient to perform ADL's. OT [place] Hand Goals Long-Term Goals Time Frame: Mar 30, 2019 Eating (FIM): 6 Eating (QC): 6 Groomin Oral Hygiene (QC): 6 Bathing(FIM): 6 Shower/Bathe Self (QC): 6 Upper Body Dressing(FIM): 6 Upper Body Dressing (QC): 6 Lower Body Dressing(FIM): 6 Lower Body Dressing (QC): 6 On/Off Footwear (QC): 6 Toileting(FIM): 6 Toileting Hygiene (QC): 6 Transfers (B,C,W/C) (FIM): 6 Toilet/Commode Transfer(FIM): 6 Toilet/Commode Transfer (QC): 6 Shower Transfer(FIM): 5 Additional Goals: 1-Demonstrate ADL Tasks, 2-Verbalize Understanding, 3- ImproveStrength/Serena 1=Demonstrate adherence to instructed precautions during ADL tasks. 2=Patient will verbalize/demonstrate understanding of assistive devices/modifications for ADL. 3=Patient will improve strength/tolerance for activity to enable patient to perform ADL's. OT Education/Plan Problem List/Assessment Assessment: Decreased Activ Tolerance, Decreased UE Strength, Impaired Coordination, Impaired Funct Balance Discharge Recommendations Plan/Recommendations: Continue POC Treatment Plan/Plan of Care Patient would benefit from OT for education, treatment and training to promote independence in ADL's, mobility, safety and/or upper extremity function for ADL's. Plan of Care: ADL Retraining, Functional Mobility, Group Exercise/Act as Ind, UE Funct Exercise/Act Treatment Duration: Mar 30, 2019 Frequency: At least 5 of 7 days/Wk (IRF) Estimated Hrs Per Day: 1.5 hours per day Agreement: Yes Rehab Potential: Good Time/GCodes Start Time: 13:00 Stop Time: 13:30 Total Time Billed (hr/min): 30 Billed Treatment Time 1 EX2 (30 min) REYES RODRIGUEZ Mar 21, 2019 13:35
--- NOTE | 2019-03-21 15:10 | Physical Therapy Daily Note ---
PT Daily Note-Current Subjective Pt laying Supine in bed upon arrival. Pt agrees to PT tx. Pain Numeric Pain Scale: 4 Location: Incisional, Left Location Body Site: Knee Pain Description: Ache, Tightness Mental Status Patient Orientation: Person, Place, Time, Situation Attachments: Polar Pack Transfers Therapy Code Descriptions/Definitions Functional [place] Measure: 0=Not Assessed/NA 4=Minimal Assistance 1=Total Assistance 5=Supervision or Setup 2=Maximal Assistance 6=Modified [place] 3=Moderate Assistance 7=Complete [place] Therapy Quality Codes: 6 Independent with activity with or without an assistive device 5 Patient requires set up or clean up by helper. Patient completes activity by themselves 4 Supervision or touching assist (CGA). [place] provide cues , steadying assist 3 The helper provides less than half the effort to complete the activity 2 The helper provides more than half the effort to complete the activity 1 Dependent. The helper does all the effort to complete an activity 7 Patient refused to complete or attempt activity 9 The patient did not perform the activity before the current illness or injury 88 Not attempted due to Medical conditions or safety concerns Weight Bearing Right Lower Extremity: Right Full Weight Bearing Left Lower Extremity: Left Weight Bearing/Tolerated Exercises Supine Ex: Ankle pumps, Quad Set, Glut sets, Heel Slides, Straight leg raise, Hip abd/add Supine Reps: 20 Treatments Pt completes Supine EX in bed with RB as needed due to fatigue and pain. CUPBOARD BUILDER & pt discuss that Weekly ARU Mtg will occur tomorrow (03/22) and pt ask a few questions in regards to what occurs. Pt resting at end of tx with all needs met, call light in hand. Assessment Current Status: Good Progress Pt needs RB for fatigue and pain. PT Short Term Goals Short Term Goals Time Frame: Mar 23, 2019 Transfers (B,C,W/C) (FIM): 5 Gait (FIM): 5 PT Skein Mercerizing Machine Operator Goals Skein Mercerizing Machine Operator Goals PT Alf Goals Time Frame: Mar 30, 2019 Transfers (B,C,W/C) (FIM): 7 Sit to Lying (QC): 6 Lying-Sitting on Side/Bed(QC): 6 Sit to Stand (QC): 6 Rollin Roll Left to Right (QC): 6 Chair/Edg-je-Qoomx Xfer(QC): 6 Car Transfer (QC): 6 Does the Patient Walk: Yes Gait (FIM): 6 Gait distance (FIM): 3=150 ft Distance: 300 ft Walk 10 feet (QC): 6 Walk 10ft-Uneven Surface(QC): 6 Walk 50ft with 2 Turns (QC): 6 Walk 150 ft (QC): 6 Gait Assistive Device: FWW Does the Pt use WC or Scooter?: No Stairs (FIM): 5 # of Steps: 4 1 Step (curb) (QC): 6 4 Steps (QC): 6 12 Steps (QC): 10 Picking up an Object (QC): 4 PT Plan Problem List Problem List: Activity Tolerance, Functional Strength Treatment/Plan Treatment Plan: Continue Plan of Care Treatment Plan: Bed Mobility, Education, Functional Activity Serena, Functional Strength, Group Therapy, Gait, Safety, Therapeutic Exercise, Transfers Treatment Duration: Mar 30, 2019 Frequency: At least 5 of 7 days/Wk (IRF) Estimated Hrs Per Day: 1.5 hours per day Patient and/or Family Agrees t: Yes Safety Risks/Education Patient Education: Reviewed Use of Ice, Correct Positioning, Safety Issues Teaching Recipient: Patient Teaching Methods: Discussion Response to Teaching: Verbalize Understanding Time/GCodes Time In: 1330 Time Out: 1400 Total Billed Treatment Time: 30 Total Billed Treatment 1, EX (20m) & FA (10m) MONALISA AMES CUPBOARD BUILDER Mar 21, 2019 15:10
[2019-03-21 17:11] VITALS: BP 125/74
--- NOTE | 2019-03-21 19:10 | NUR ---
bedside report received from SAM ESQUIVEL, assume care of pt
[2019-03-21] MEDS: MELATONIN 3 MG TABLET PO PRN (20:01)
--- NOTE | 2019-03-21 20:02 | NUR ---
c/o lt knee pain level 5/10 on numeric scale, Lortab 10 1 tab po given, refused miralax & Senokot but took Colace, also took melatonin
--- NOTE | 2019-03-21 20:05 | NUR ---
assessments & interventions completed, see assessments & interventions
--- NOTE | 2019-03-21 20:35 | NUR ---
pain level 3/10 on numeric scale
[2019-03-22] MEDS: HYDROcodone/APAP 10 MG/325 MG (LORTAB) TAB PO PRN ×3 (05:00→18:07)
--- NOTE | 2019-03-22 05:00 | NUR ---
c/o pain to lt knee pain level 7/10 on numeric scale, Lortab 10 1 tab po given
[2019-03-22 05:23] VITALS: BP 127/76
--- NOTE | 2019-03-22 05:45 | NUR ---
pain level 3/10 on numeric scale
--- NOTE | 2019-03-22 07:18 | NUR ---
bedside report given to MASTER ESQUIVEL
--- NOTE | 2019-03-22 08:41 | PM&R Progress Note ---
Subjective HPI/CC On Admission Date Seen by Provider: Mar 22, 2019 Time Seen by Provider: 08:45 Chief Complaint: Debility following left total knee replacement HPI: This is a 74[address]WF pt of Dr. Gonzalez who presents to the in patient rehab unit following slow recovery from a left total knee replacement uncomplicated by Dr. Anderson. Her PCP is Dr. Gonzalez her Shot Grinder Operator is Dr. Combs. At this current time pt has not had a BM since before surgery so well need to work on that she feels pretty drained after walking with PT today and overall has had no other events during her hospital stay. 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 At this current time pt is deemed stable for transfer by her family to in patient rehab at [facility] and had an uneventful transport to [place]. Note per Satnam Hurtado [facility]: Ms. Arriaga is a 74 y/o female with a PMH of COPD, HTN, CAD, and hyperlipidemia who presents to the rehab unit s/p L TKA performed by Dr. Anderson on 03/14. She had a long history of L knee pain. She described the pain as a persistent popping and grinding. A diagnosis of severe Osteoarthritis was made by Dr. Anderson with a decision to move forward with a Left Total Knee replacement. Her post-op course has been uneventful. She classifies her current pain level as a 6/10 while working with OT. She lives alone in a single story home without internal stairs. There are a total of 3 steps needed to traverse in order to enter the home. 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 Subjective/Events-last exam Slow recovery noted Pain persists and that does come and go Melatonin improved her sleep lastnight Incision looks good Will discuss on Wednesday and likely will provide a day pass this weekend and if that goes well will DC at the first of the week Neb treatments maintained Oxygen level remains normal without supplementation Checked meds and labs. Elevated LFT's noted but trend is down Conferred with RN Reviewed therapy notes Review of Systems General: Fatigue, Malaise Musculoskeletal: leg pain Objective Exam Vital Signs Vital Signs Date Time Temp Pulse Resp B/P (MAP) Pulse Ox O2 Delivery O2 Flow Rate FiO2 03/22/19 19:09 98 Room Air 03/22/19 17:25 98.4 87 20 136/77 (96) Capillary Refill : General Appearance: No Apparent Distress, WD/WN, Chronically ill HEENT: PERRL/EOMI, TMs Normal, Normal ENT Inspection, Pharynx Normal Respiratory: Chest Non Tender, Lungs Clear, No Accessory Muscle Use, No Respiratory Distress, Decreased Breath Sounds Cardiovascular: Regular Rate, Rhythm, No Edema, No Gallop, No JVD, No Murmur, Normal Peripheral Pulses Gastrointestinal: Normal Bowel Sounds, No Organomegaly, No Pulsatile Mass, Non Tender, Soft Rectal: Deferred Back: Normal Inspection, No CVA Tenderness, No Vertebral Tenderness Extremity: Normal Capillary Refill, Normal Inspection, Normal Range of Motion (limited ROM legs), Non Tender, No Calf Tenderness Neurologic/Psychiatric: Alert, Oriented x3, No Motor/Sensory Deficits, Normal Mood/Affect, bellman captain II-XII Norm as Tested Skin: Normal Color, Warm/Dry Lymphatic: No Adenopathy Results/Procedures Lab Patient resulted labs reviewed. FIM Transfers Therapy Code Descriptions/Definitions Functional [place] Measure: 0=Not Assessed/NA 4=Minimal Assistance 1=Total Assistance 5=Supervision or Setup 2=Maximal Assistance 6=Modified [place] 3=Moderate Assistance 7=Complete [place] Therapy Quality Codes: 6 Independent with activity with or without an assistive device 5 Patient requires set up or clean up by helper. Patient completes activity by themselves 4 Supervision or touching assist (CGA). [place] provide cues , steadying assist 3 The helper provides less than half the effort to complete the activity 2 The helper provides more than half the effort to complete the activity 1 Dependent. The helper does all the effort to complete an activity 7 Patient refused to complete or attempt activity 9 The patient did not perform the activity before the current illness or injury 88 Not attempted due to Medical conditions or safety concerns Transfers (B, C, W/C) (FIM): 4 (Pt used FWW and chair arms, steadying ) Scootin Rollin Roll Left to Right (QC): 4 Supine to/from Sit: 6 Sit to/from Stand: 5 Sit to Lying (QC): 5 Sit to Stand (QC): 5 Chair/Cgs-fe-[place] Xfer(QC): 4 Car Transfer (QC): 3 (assist to get both legs in and out of the car ; assist to stand up) Gait Training Does the Patient Walk?: Yes Gait (FIM): 5 Distance (FIM): 3=150 ft Distance: 150' Walk 10 feet (QC): 5 Walk 50 ft with 2 Turns(QC): 5 Walk 150 ft (QC): 5 Walking 10ft/uneven surface-QC: 4 Gait Level of Assist: 5 Gait Persons Needed: 1 Gait Assistive Device: FWW Wheelchair Training Does the Pt Use a Wheelchair?: No Stair Training Stair Training: Handrails/: 2 handrails Stairs (FIM): 5 #of Steps: 4 1 Step (curb) (QC): 4 (min assist due to LE weakness and impaired ROM>) 4 Steps (QC): 88 Stairs: Pattern: Step to Level of Assist: 5 Balance Picking up an Object (QC): 88 (unsafe to attempt) Mental Status/Objective Comprehension: 7 Expression: 7 Social Interaction: 7 Problem Solvin Memory: 6 ADL-Treatment Groomin (Pt stood at sink using FWW to brush teeth and hair. ) Oral Hygiene (QC): 6 Bathin (Pt required grabbar, long handed sponge, and hand held shower head. Pt washed, rinsed, and dried self, supervision. ) Bathing Location: L Arm, R Arm, L Upper Leg, R Upper Leg, L Lower Leg (including foot), R Lower Leg (including foot), Chest, Abdomen, Buttocks, Perineal Area Shower/Bathe Self (QC): 4 Upper Extremity Dressin (Pt don/doffed shirt while sitting EOB, set up. ) Upper Body Dressing (QC): 5 Lower Extremity Dressin (Pt doffed underwear and pants at toilet. Pt donned underwear and pants sitting EOB needing FWW to hold onto while managing clothing. Pt able to doff/don socks. ) Lower Body Dressing (QC): 4 (Supervision) On/Off Footwear (QC): 5 Toiletin (Pt able to adjust clothing before and after voiding. Pt demo ability to cleanse self after voiding. ) Toileting Hygiene (QC): 4 Toilet/Commode Transfer: 5 (Pt used FWW and grabbar, supervision. ) Toilet Transfer (QC): 4 Shower: 5 (Pt required use of FWW, grabbar, and tub bench, supervision. ) Assessment/Plan Assessment and Plan Assess & Plan/Chief Complaint Assessment: Status post left total knee replacement uncomplicated Slow recovery COPD Current smoker Coarse breath sounds order nebulizers much improved Paroxysmal atrial fibrillation Long-term oral anticoagulation Postop constipation now resolved Hypertension LFT elevation Insomnia Plan: BM regimen to continue Maintain inpatient rehab protocol Monitor pain and continue pain medication Progressing nicely PCP to help with insomnia is appreciated (1) Status post left knee replacement Status: Acute (2) COPD (chronic obstructive pulmonary disease) Status: Chronic Qualifiers: COPD type: unspecified COPD Qualified Codes: J44.9 - Chronic obstructive pulmonary disease, unspecified (3) Constipation Status: Acute Qualifiers: Constipation type: drug induced constipation Qualified Codes: K59.03 - Drug induced constipation (4) Hypertension Status: Chronic Qualifiers: Hypertension type: essential hypertension Qualified Codes: I10 - Essential (primary) hypertension (5) CAD (coronary artery disease) Status: Chronic Qualifiers: Coronary Disease-Associated Artery/Lesion type: [place] artery [place] vs. transplanted heart: [place] heart Associated angina: without angina Qualified Codes: I25.10 - Atherosclerotic heart disease of [place] coronary artery without angina pectoris (6) Paroxysmal atrial fibrillation (7) Debility Status: Acute (8) Anticoagulant long-term use Status: Chronic (9) Smoker Status: Chronic (10) Elevated liver enzymes Status: Acute (11) Insomnia Status: Acute Qualifiers: Insomnia type: primary Qualified Codes: F51.01 - Primary insomnia DANIEL THOMPSON DO Mar 22, 2019 08:40
[2019-03-22] MEDS: SENNA W/DOCUSATE (SENOKOT S) TABLET PO SCH ×2 (09:00→21:17)
[2019-03-22] MEDS: DOCUSATE SODIUM 100 MG (COLACE) CAP PO SCH ×2 (09:00→21:17)
[2019-03-22] MEDS: POLYETHYLENE GLYCOL 17 GM (MIRALAX) PACK PO SCH ×2 (09:00→21:17)
--- NOTE | 2019-03-22 09:08 | Physical Therapy Daily Note ---
PT Daily Note-Current Subjective Pt laying Supine in bed upon arrival. Pt agrees to PT. Pain Numeric Pain Scale: 6 Location: Incisional, Left Location Body Site: Knee Pain Description: Ache, Tightness Mental Status Patient Orientation: Person, Place, Time, Situation Attachments: Polar Pack Transfers Therapy Code Descriptions/Definitions Functional [place] Measure: 0=Not Assessed/NA 4=Minimal Assistance 1=Total Assistance 5=Supervision or Setup 2=Maximal Assistance 6=Modified [place] 3=Moderate Assistance 7=Complete [place] Therapy Quality Codes: 6 Independent with activity with or without an assistive device 5 Patient requires set up or clean up by helper. Patient completes activity by themselves 4 Supervision or touching assist (CGA). [place] provide cues , steadying assist 3 The helper provides less than half the effort to complete the activity 2 The helper provides more than half the effort to complete the activity 1 Dependent. The helper does all the effort to complete an activity 7 Patient refused to complete or attempt activity 9 The patient did not perform the activity before the current illness or injury 88 Not attempted due to Medical conditions or safety concerns Scootin Supine to/from Sit: 5 Sit to/from Stand: 5 Sit to Lying (QC): 5 Sit to Stand (QC): 5 Weight Bearing Right Lower Extremity: Right Full Weight Bearing Left Lower Extremity: Left Weight Bearing/Tolerated Gait Training Does the Patient Walk?: Yes Gait (FIM): 5 Distance (FIM): 3=150 ft Distance: 200' Walk 10 feet (QC): 5 Walk 50 ft with 2 Turns(QC): 5 Walk 150 ft (QC): 5 Gait Level of Assist: 5 Gait Persons Needed: 1 Gait Assistive Device: FWW Pt still bearing weight through UE more and is encouraged to WB through L LE more. Pt is able to extend L knee more than previous visits although still walking with slightly flexed L knee. Wheelchair Training Does the Pt Use a Wheelchair?: No Exercises Supine Ex: Ankle pumps, Quad Set, Glut sets, Heel Slides, Hip abd/add Supine Reps: 15 NuStep Minutes: 15 Treatments Pt completes Supine Ex in bed then transfers from Supine to EOB, EOB to standing using FWW. Pt ambulates in hallway then uses NuStep for 15m at WL 4. Pt completes leg presses x15, focus on extension of L knee. Pt ambulates in hallway before returning to room. Pt resting with B LE elevated in recliner, ice pack on and all needs met, call light in hand. Assessment Current Status: Good Progress Pt continues to make improvement with walking and extension of L knee. PT Short Term Goals Short Term Goals Time Frame: Mar 23, 2019 Transfers (B,C,W/C) (FIM): 5 Gait (FIM): 5 PT Retirement Goals Warehouse Manager Goals PT Warehouse Manager Goals Time Frame: Mar 30, 2019 Transfers (B,C,W/C) (FIM): 7 Sit to Lying (QC): 6 Lying-Sitting on Side/Bed(QC): 6 Sit to Stand (QC): 6 Rollin Roll Left to Right (QC): 6 Chair/Tpc-io-[place] Xfer(QC): 6 Car Transfer (QC): 6 Does the Patient Walk: Yes Gait (FIM): 6 Gait distance (FIM): 3=150 ft Distance: 300 ft Walk 10 feet (QC): 6 Walk 10ft-Uneven Surface(QC): 6 Walk 50ft with 2 Turns (QC): 6 Walk 150 ft (QC): 6 Gait Assistive Device: FWW Does the Pt use WC or Scooter?: No Stairs (FIM): 5 # of Steps: 4 1 Step (curb) (QC): 6 4 Steps (QC): 6 12 Steps (QC): 10 Picking up an Object (QC): 4 PT Plan Problem List Problem List: Activity Tolerance, Functional Strength, Gait Treatment/Plan Treatment Plan: Continue Plan of Care Treatment Plan: Bed Mobility, Education, Functional Activity Serena, Functional Strength, Group Therapy, Gait, Safety, Therapeutic Exercise, Transfers Treatment Duration: Mar 30, 2019 Frequency: At least 5 of 7 days/Wk (IRF) Estimated Hrs Per Day: 1.5 hours per day Patient and/or Family Agrees t: Yes Safety Risks/Education Patient Education: Gait Training, Transfer Techniques, Correct Positioning, Safety Issues Teaching Recipient: Patient Teaching Methods: Discussion Response to Teaching: Verbalize Understanding Time/GCodes Time In: 800 Time Out: 900 Total Billed Treatment Time: 60 Total Billed Treatment 1, GT (20m), EX x2 (25m) & FA (15m) MONALISA AMES WET POUR MIXER Mar 22, 2019 09:08
[2019-03-22] MEDS: meTOprolol TARTRATE 50 MG (LOPRESSOR) TAB PO SCH ×2 (09:17→21:14)
[2019-03-22] MEDS: PANTOPRAZOLE 40 MG (PROTONIX) TAB PO SCH (09:17)
[2019-03-22] MEDS: VALSARTAN 160 MG (DIOVAN) TABLET PO SCH (09:17)
[2019-03-22] MEDS: amLODIPine 10 MG (NORVASC) TAB PO SCH (09:17)
[2019-03-22] MEDS: APIXABAN 5 MG (ELIQUIS) TABLET PO SCH ×2 (09:17→21:14)
[2019-03-22] MEDS: MULTIVIT W/MINERALS TAB (THERAGRAN M) PO SCH (09:17)
[2019-03-22] MEDS: ASPIRIN 81 MG CHEW (CHILDREN'S ASA) PO SCH (09:18)
[2019-03-22] MEDS: VITAMIN D3 1,000 UNITS (CHOLECALCIFEROL) TABLET PO SCH (09:25)
[2019-03-22] MEDS: CALCIUM CARB + VIT D 600 MG (CALCARB + D) TAB PO SCH (09:25)
[2019-03-22] MEDS: LACTOBACILLUS ACIDOPHILUS (PROBIOTIC) CAPSULE PO SCH (09:25)
[2019-03-22] MEDS: RT-ALBUTEROL/IPRATROPIUM 3 ML (DUONEB) VIAL INH SCH ×3 (10:00→19:09)
--- NOTE | 2019-03-22 10:15 | Progress Note - Hospitalist ---
[facility] 03/22/19 1015: Progress Note Ms Bart had much better sleep yesterday with addition of melatonin. She is fully participating in all therapy Pain is better controlled today Bowels are active and lungs sounds are clear EUGENIA CROW DO 03/22/19 2008: Supervisory-Addendum Brief Verification & Attestation Participated in pt care: history, MDM, physical Personally performed: exam, history, MDM, supervision of care Care discussed with: Medical Student Procedures: n/a Results interpretation: Verified all documentation Verification and Attestation of Medical Student E/M Service A medical student performed and documented this service in my presence. I reviewed and verified all information documented by the medical student and made modifications to such information, when appropriate. I personally performed the physical exam and medical decision making. Eugenia Crow, Mar 22, 2019,20:08 [facility] Mar 22, 2019 10:15 EUGENIA CROW DO Mar 22, 2019 20:08
--- NOTE | 2019-03-22 12:59 | Occupational Ther Daily Note ---
OT Current Status-Daily Note Subjective Pt alert sitting in chair upon OT arrival. Pt agrees to shower. Mental Status/Objective Patient Orientation: Person, Place, Time, Situation Therapy Code Descriptions/Definitions Functional [place] Measure: 0=Not Assessed/NA 4=Minimal Assistance 1=Total Assistance 5=Supervision or Setup 2=Maximal Assistance 6=Modified [place] 3=Moderate Assistance 7=Complete [place] ADL-Treatment Pt was seen by nrsg while in shower to administer meds. Pt blood pressure was low 136/43. SBA was initiated through all ADL activities. After shower blood pressure was assessed again and it had raised to 136/63. Therapy Code Descriptions/Definitions Functional [place] Measure: 0=Not Assessed/NA 4=Minimal Assistance 1=Total Assistance 5=Supervision or Setup 2=Maximal Assistance 6=Modified [place] 3=Moderate Assistance 7=Complete [place] Therapy Quality Codes: 6 Independent with activity with or without an assistive device 5 Patient requires set up or clean up by helper. Patient completes activity by themselves 4 Supervision or touching assist (CGA). [place] provide cues , steadying assist 3 The helper provides less than half the effort to complete the activity 2 The helper provides more than half the effort to complete the activity 1 Dependent. The helper does all the effort to complete an activity 7 Patient refused to complete or attempt activity 9 The patient did not perform the activity before the current illness or injury 88 Not attempted due to Medical conditions or safety concerns Grooming (FIM): 4 (Pt able to stand at sink with FWW to brush hair and teeth. CGA for steadying. ) Bathing (FIM): 5 (Pt able to cleanse, rinse, dry self. SBA, supervision. ) Upper Body (FIM): 5 (Pt able to don/doff shirt, SBA supervision/set up. ) Lower Body Dressing (FIM): 5 (Pt able to don/doff underwear, pants, and socks. Pt used FWW. Set up/ supervision. ) Toileting (FIM): 5 (Pt able to cleanse self after voiding and BM. Pt manages clothing properly. SBA, supervision. ) Transfers (B, C, W/C) (FIM): 4 (Pt required FWW. CGA, steadying. ) Toilet/Commode Transfer (FIM): 5 (Pt required FWW and grabbar. SBA Supervsion. ) Shower Transfer(FIM): 5 (Pt required FWW, grabbar, shower bench. SBA, supervision. ) Other Treatment Pt was left in bed with polar ice placed on knee. Call light and phone placed within reach. All needs met. OT Short Term Goals Short Term Goals Time Frame: Mar 23, 2019 Eating(FIM): 5 Grooming(FIM): 5 Bathing(FIM): 5 Upper Body Dressing(FIM): 5 Lower Body Dressing(FIM): 5 Toileting(FIM): 5 Transfers (B,C,W/C) (FIM): 5 Toilet/Commode Transfer(FIM): 5 Shower Transfer(FIM): 5 Additional Short Term Goals: 1-Demonstrate ADL Tasks, 2-Verbalize Understanding, 3-ImproveStrength/Serena 1=Demonstrate adherence to instructed precautions during ADL tasks. 2=Patient will verbalize/demonstrate understanding of assistive devices/modifications for ADL. 3=Patient will improve strength/tolerance for activity to enable patient to perform ADL's. OT Shelter Goals Manager Skilled Goals Time Frame: Mar 30, 2019 Eating (FIM): 6 Eating (QC): 6 Groomin Oral Hygiene (QC): 6 Bathing(FIM): 6 Shower/Bathe Self (QC): 6 Upper Body Dressing(FIM): 6 Upper Body Dressing (QC): 6 Lower Body Dressing(FIM): 6 Lower Body Dressing (QC): 6 On/Off Footwear (QC): 6 Toileting(FIM): 6 Toileting Hygiene (QC): 6 Transfers (B,C,W/C) (FIM): 6 Toilet/Commode Transfer(FIM): 6 Toilet/Commode Transfer (QC): 6 Shower Transfer(FIM): 5 Additional Goals: 1-Demonstrate ADL Tasks, 2-Verbalize Understanding, 3- ImproveStrength/Serena 1=Demonstrate adherence to instructed precautions during ADL tasks. 2=Patient will verbalize/demonstrate understanding of assistive devices/modifications for ADL. 3=Patient will improve strength/tolerance for activity to enable patient to perform ADL's. OT Education/Plan Discharge Recommendations Plan/Recommendations: Continue POC Treatment Plan/Plan of Care Patient would benefit from OT for education, treatment and training to promote independence in ADL's, mobility, safety and/or upper extremity function for ADL's. Plan of Care: ADL Retraining, Functional Mobility, Group Exercise/Act as Ind, UE Funct Exercise/Act Treatment Duration: Mar 30, 2019 Frequency: At least 5 of 7 days/Wk (IRF) Estimated Hrs Per Day: 1.5 hours per day Agreement: Yes Rehab Potential: Good Time/GCodes Start Time: 09:00 Stop Time: 10:00 Total Time Billed (hr/min): 60 Billed Treatment Time 1 visit-ADL 4 (60 min) REYES RODRIGUEZ Mar 22, 2019 12:59
--- NOTE | 2019-03-22 14:51 | Therapy Group Daily Note ---
Therapy Daily Group Note Patient Education Topic Other List Below (Envronmental Signs of Safety) Exercises LE Seated Exercise, UE Exercise Session Ratio (pt:therapist): 4:1 Goal of Session: Education on ARU Expectations, Memory Strategies, UE/LE Strengthing Goal Met for this Session: Yes Pt Benefit of Group: Contributions to Others, F/U Use of Strategies @Home, Increased Functional Safety, Increased Functional Strength, Improved Cognition, Recognition of Peers, Socialization Other/Notes Pt ambulates to PT/OT Group via FWW at [facility]. Group consisted of Introductions (Name, Where you live & Biggest Pet Peeve), Socialization, UE & LE Seated Exercise, and Identifying & Explaining Safety Signs we see daily in the form of a seated activity. Pt actively participates in Group by completing exercises and giving examples of safety signs and what they mean. Pt returns to room at end of Group to rest with all needs met, call light next to pt Start Time: 13:00 Stop Time: 14:00 Total Billed Treatment Time: 60 Total Billed Treatment 1, GRP MONALISA AMES THERMOSTAT REPAIRER Mar 22, 2019 14:51
--- NOTE | 2019-03-22 16:32 | NUR ---
DIRECTOR STAFFING met with patient to review team conference summary. Patient is performing all PT activities with standby assist and most OT activities with modified independence; however, patient reports pain has been unmanageable at times. Team has recommended patient proceed with a day pass over the weekend. Patient will report back to therapy with any additional needs for safe techniques. Team plans to discuss patient's progress on Wednesday and determine appropriate discharge date. Patient is agreeable to this.
[2019-03-22 17:25] VITALS: BP 136/77
[2019-03-23] MEDS: HYDROcodone/APAP 10 MG/325 MG (LORTAB) TAB PO PRN ×5 (02:02→20:47)
[2019-03-23 05:10] VITALS: BP 149/77
[2019-03-23] MEDS: DOCUSATE SODIUM 100 MG (COLACE) CAP PO SCH ×2 (08:13→20:43)
[2019-03-23] MEDS: POLYETHYLENE GLYCOL 17 GM (MIRALAX) PACK PO SCH ×2 (08:13→20:43)
[2019-03-23] MEDS: SENNA W/DOCUSATE (SENOKOT S) TABLET PO SCH ×2 (08:13→20:44)
--- NOTE | 2019-03-23 08:20 | Progress Note - Hospitalist ---
[facility] 03/23/19 0820: Progress Note Ms. Arriaga had touble sleeping agin was awake from 2am, woke up due to pain, then couldn't fall back asleep She describes a period of time yesterday with resting and intention tremors - will review med list for interactions EUGENIA CROW DO 03/23/19 2014: Supervisory-Addendum Brief Verification & Attestation Participated in pt care: history, MDM, physical Personally performed: exam, history, MDM, supervision of care Care discussed with: Medical Student Procedures: n/a Results interpretation: Verified all documentation Verification and Attestation of Medical Student E/M Service A medical student performed and documented this service in my presence. I reviewed and verified all information documented by the medical student and made modifications to such information, when appropriate. I personally performed the physical exam and medical decision making. Eugenia Crow, Mar 23, 2019,20:14 [facility] Mar 23, 2019 08:20 EUGENIA CROW DO Mar 23, 2019 20:14
[2019-03-23] MEDS: VALSARTAN 160 MG (DIOVAN) TABLET PO SCH (08:34)
[2019-03-23] MEDS: MULTIVIT W/MINERALS TAB (THERAGRAN M) PO SCH (08:34)
[2019-03-23] MEDS: PANTOPRAZOLE 40 MG (PROTONIX) TAB PO SCH (08:34)
[2019-03-23] MEDS: CALCIUM CARB + VIT D 600 MG (CALCARB + D) TAB PO SCH (08:34)
[2019-03-23] MEDS: APIXABAN 5 MG (ELIQUIS) TABLET PO SCH ×2 (08:35→20:41)
[2019-03-23] MEDS: ASPIRIN 81 MG CHEW (CHILDREN'S ASA) PO SCH (08:35)
[2019-03-23] MEDS: LACTOBACILLUS ACIDOPHILUS (PROBIOTIC) CAPSULE PO SCH (08:35)
[2019-03-23] MEDS: amLODIPine 10 MG (NORVASC) TAB PO SCH (08:35)
[2019-03-23] MEDS: meTOprolol TARTRATE 50 MG (LOPRESSOR) TAB PO SCH ×2 (08:35→20:42)
[2019-03-23] MEDS: VITAMIN D3 1,000 UNITS (CHOLECALCIFEROL) TABLET PO SCH (08:35)
--- NOTE | 2019-03-23 09:17 | PM&R Progress Note ---
Subjective HPI/CC On Admission Date Seen by Provider: Mar 23, 2019 Time Seen by Provider: 09:15 Chief Complaint: Debility following left total knee replacement HPI: This is a 74[address] pt of Dr. Gonzalez who presents to the in patient rehab unit following slow recovery from a left total knee replacement uncomplicated by Dr. Anderson. Her PCP is Dr. Gonzalez her Coo is Dr. Combs. At this current time pt has not had a BM since before surgery so well need to work on that she feels pretty drained after walking with PT today and overall has had no other events during her hospital stay. 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 At this current time pt is deemed stable for transfer by her family to in patient rehab at [facility] and had an uneventful transport to [place]. Note per Satnam Hurtado [facility]: Ms. Arriaga is a 74 y/o female with a PMH of COPD, HTN, CAD, and hyperlipidemia who presents to the rehab unit s/p L TKA performed by Dr. Anderson on 03/14. She had a long history of L knee pain. She described the pain as a persistent popping and grinding. A diagnosis of severe Osteoarthritis was made by Dr. Anderson with a decision to move forward with a Left Total Knee replacement. Her post-op course has been uneventful. She classifies her current pain level as a 6/10 while working with OT. She lives alone in a single story home without internal stairs. There are a total of 3 steps needed to traverse in order to enter the home. 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 Subjective/Events-last exam Day pass will be this weekend depending on what her daughters can do. BMs are regular. Had some tremors yesterday so will discontinue nebulizer treatments since lungs are clear. Checked meds and labs. Overall dramatic improvement from admission but she still does have pain. Elevated LFT's noted but trend is down Conferred with RN Reviewed therapy notes Review of Systems Musculoskeletal: leg pain Neurological: Weakness Objective Exam Vital Signs Vital Signs Date Time Temp Pulse Resp B/P (MAP) Pulse Ox O2 Delivery O2 Flow Rate FiO2 03/23/19 09:00 Room Air 03/23/19 05:10 97.8 83 20 149/77 (101) 99 Capillary Refill : General Appearance: No Apparent Distress, WD/WN, Chronically ill HEENT: PERRL/EOMI, TMs Normal, Normal ENT Inspection, Pharynx Normal Respiratory: Chest Non Tender, Lungs Clear, No Accessory Muscle Use, No Respiratory Distress, Decreased Breath Sounds Cardiovascular: Regular Rate, Rhythm, No Edema, No Gallop, No JVD, No Murmur, Normal Peripheral Pulses Gastrointestinal: Normal Bowel Sounds, No Organomegaly, No Pulsatile Mass, Non Tender, Soft Rectal: Deferred Back: Normal Inspection, No CVA Tenderness, No Vertebral Tenderness Extremity: Normal Capillary Refill, Normal Inspection, Normal Range of Motion (limited ROM legs), Non Tender, No Calf Tenderness Neurologic/Psychiatric: Alert, Oriented x3, No Motor/Sensory Deficits, Normal Mood/Affect, 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 FIM Transfers Therapy Code Descriptions/Definitions Functional [place] Measure: 0=Not Assessed/NA 4=Minimal Assistance 1=Total Assistance 5=Supervision or Setup 2=Maximal Assistance 6=Modified [place] 3=Moderate Assistance 7=Complete [place] Therapy Quality Codes: 6 Independent with activity with or without an assistive device 5 Patient requires set up or clean up by helper. Patient completes activity by themselves 4 Supervision or touching assist (CGA). [place] provide cues , steadying assist 3 The helper provides less than half the effort to complete the activity 2 The helper provides more than half the effort to complete the activity 1 Dependent. The helper does all the effort to complete an activity 7 Patient refused to complete or attempt activity 9 The patient did not perform the activity before the current illness or injury 88 Not attempted due to Medical conditions or safety concerns Transfers (B, C, W/C) (FIM): 4 (Pt required FWW. CGA, steadying. ) Scootin Rollin Roll Left to Right (QC): 4 Supine to/from Sit: 5 Sit to/from Stand: 5 Sit to Lying (QC): 5 Sit to Stand (QC): 5 Chair/Xui-ta-Ozzkh Xfer(QC): 4 Car Transfer (QC): 3 (assist to get both legs in and out of the car ; assist to stand up) Gait Training Does the Patient Walk?: Yes Gait (FIM): 5 Distance (FIM): 3=150 ft Distance: 200' Walk 10 feet (QC): 5 Walk 50 ft with 2 Turns(QC): 5 Walk 150 ft (QC): 5 Walking 10ft/uneven surface-QC: 4 Gait Level of Assist: 5 Gait Persons Needed: 1 Gait Assistive Device: FWW Wheelchair Training Does the Pt Use a Wheelchair?: No Stair Training Stair Training: Handrails/: 2 handrails Stairs (FIM): 5 #of Steps: 4 1 Step (curb) (QC): 4 (min assist due to LE weakness and impaired ROM>) 4 Steps (QC): 88 Stairs: Pattern: Step to Level of Assist: 5 Balance Picking up an Object (QC): 88 (unsafe to attempt) Mental Status/Objective Comprehension: 7 Expression: 7 Social Interaction: 7 Problem Solvin Memory: 6 ADL-Treatment Groomin (Pt able to stand at sink with FWW to brush hair and teeth. CGA for steadying. ) Oral Hygiene (QC): 6 Bathin (Pt able to cleanse, rinse, dry self. SBA, supervision. ) Bathing Location: L Arm, R Arm, L Upper Leg, R Upper Leg, L Lower Leg (including foot), R Lower Leg (including foot), Chest, Abdomen, Buttocks, Perineal Area Shower/Bathe Self (QC): 4 Upper Extremity Dressin (Pt able to don/doff shirt, SBA supervision/set up. ) Upper Body Dressing (QC): 5 Lower Extremity Dressin (Pt able to don/doff underwear, pants, and socks. Pt used FWW. Set up/ supervision. ) Lower Body Dressing (QC): 4 (Supervision) On/Off Footwear (QC): 5 Toiletin (Pt able to cleanse self after voiding and BM. Pt manages clothing properly. SBA, supervision. ) Toileting Hygiene (QC): 4 Toilet/Commode Transfer: 5 (Pt required FWW and grabbar. SBA Supervsion. ) Toilet Transfer (QC): 4 Shower: 5 (Pt required FWW, grabbar, shower bench. SBA, supervision. ) Assessment/Plan Assessment and Plan Assess & Plan/Chief Complaint Assessment: Status post left total knee replacement uncomplicated Slow recovery COPD Current smoker Coarse breath sounds order nebulizers much improved Paroxysmal atrial fibrillation Long-term oral anticoagulation Postop constipation now resolved Hypertension LFT elevation Insomnia Plan: BM regimen to continue Maintain inpatient rehab protocol Monitor pain and continue pain medication Progressing nicely PCP to help with insomnia is appreciated Daypass this Likely DC Wednesday (1) Status post left knee replacement Status: Acute (2) COPD (chronic obstructive pulmonary disease) Status: Chronic Qualifiers: COPD type: unspecified COPD Qualified Codes: J44.9 - Chronic obstructive pulmonary disease, unspecified (3) Constipation Status: Acute Qualifiers: Constipation type: drug induced constipation Qualified Codes: K59.03 - Drug induced constipation (4) Hypertension Status: Chronic Qualifiers: Hypertension type: essential hypertension Qualified Codes: I10 - Essential (primary) hypertension (5) CAD (coronary artery disease) Status: Chronic Qualifiers: Coronary Disease-Associated Artery/Lesion type: habematolel artery [place] vs. tr ansplanted heart: habematolel heart Associated angina: without angina Qualified Codes: I25.10 - Atherosclerotic heart disease of habematolel coronary artery without angina pectoris (6) Paroxysmal atrial fibrillation (7) Debility Status: Acute (8) Anticoagulant long-term use Status: Chronic (9) Smoker Status: Chronic (10) Elevated liver enzymes Status: Acute (11) Insomnia Status: Acute Qualifiers: Insomnia type: primary Qualified Codes: F51.01 - Primary insomnia DANIEL THOMPSON DO Mar 23, 2019 09:17
--- NOTE | 2019-03-23 10:58 | Physical Therapy Daily Note ---
PT Daily Note-Current Subjective Pt sitting up in bed upon arrival. Pt agrees to PT but reports needing to use restroom at start of tx. Pain Numeric Pain Scale: 7 Location: Left Location Body Site: Knee Pain Description: Ache, Tightness Mental Status Patient Orientation: Person, Place, Time, Situation Transfers Therapy Code Descriptions/Definitions Functional [place] Measure: 0=Not Assessed/NA 4=Minimal Assistance 1=Total Assistance 5=Supervision or Setup 2=Maximal Assistance 6=Modified [place] 3=Moderate Assistance 7=Complete [place] Therapy Quality Codes: 6 Independent with activity with or without an assistive device 5 Patient requires set up or clean up by helper. Patient completes activity by themselves 4 Supervision or touching assist (CGA). [place] provide cues , steadying assist 3 The helper provides less than half the effort to complete the activity 2 The helper provides more than half the effort to complete the activity 1 Dependent. The helper does all the effort to complete an activity 7 Patient refused to complete or attempt activity 9 The patient did not perform the activity before the current illness or injury 88 Not attempted due to Medical conditions or safety concerns Scootin Rollin Supine to/from Sit: 5 Sit to/from Stand: 5 Sit to Lying (QC): 5 Sit to Stand (QC): 5 Weight Bearing Right Lower Extremity: Right Full Weight Bearing Left Lower Extremity: Left Weight Bearing/Tolerated Gait Training Does the Patient Walk?: Yes Gait (FIM): 5 Distance (FIM): 3=150 ft Distance: 150' Walk 10 feet (QC): 5 Walk 50 ft with 2 Turns(QC): 5 Walk 150 ft (QC): 5 Gait Level of Assist: 5 Gait Persons Needed: 1 Gait Assistive Device: FWW Stair Training Stair Training: Handrails/: 2 handrails #of Steps: 8 1 Step (curb) (QC): 5 4 Steps (QC): 5 Stairs: Pattern: Step to Level of Assist: 5 Exercises Seated Therapy Exercises: Ankle pumps, Long arc quads, Hip flexion, Kicking activity, Hamstring Curls Seated Reps: 20 NuStep Minutes: 15 NuStep Workload: 5 Treatments Pt transfers from bed to standing. Pt ambulates in hallway then uses NuStep for 15m at WL 5. Pt takes short RB then ambulates steps before resting in chair and completing Seated EX. Pt ambulates in hallway on way to room. Pt rests in bed at end of tx with all needs met, call light in hand & polar pack on. Assessment Current Status: Good Progress Pt tolerating tx well despite pain. PT Short Term Goals Short Term Goals Time Frame: Mar 23, 2019 Transfers (B,C,W/C) (FIM): 5 Gait (FIM): 5 PT Retirement Goals Director Of Culture Goals PT Retirement Goals Time Frame: Mar 30, 2019 Transfers (B,C,W/C) (FIM): 7 Sit to Lying (QC): 6 Lying-Sitting on Side/Bed(QC): 6 Sit to Stand (QC): 6 Rollin Roll Left to Right (QC): 6 Chair/Yjc-uy-Ciriu Xfer(QC): 6 Car Transfer (QC): 6 Does the Patient Walk: Yes Gait (FIM): 6 Gait distance (FIM): 3=150 ft Distance: 300 ft Walk 10 feet (QC): 6 Walk 10ft-Uneven Surface(QC): 6 Walk 50ft with 2 Turns (QC): 6 Walk 150 ft (QC): 6 Gait Assistive Device: FWW Does the Pt use WC or Scooter?: No Stairs (FIM): 5 # of Steps: 4 1 Step (curb) (QC): 6 4 Steps (QC): 6 12 Steps (QC): 10 Picking up an Object (QC): 4 PT Plan Problem List Problem List: Activity Tolerance, Functional Strength, Gait Treatment/Plan Treatment Plan: Continue Plan of Care Treatment Plan: Bed Mobility, Education, Functional Activity Serena, Functional Strength, Group Therapy, Gait, Safety, Therapeutic Exercise, Transfers Treatment Duration: Mar 30, 2019 Frequency: At least 5 of 7 days/Wk (IRF) Estimated Hrs Per Day: 1.5 hours per day Patient and/or Family Agrees t: Yes Safety Risks/Education Patient Education: Gait Training, Transfer Techniques, Correct Positioning, Safety Issues Teaching Recipient: Patient Teaching Methods: Discussion Response to Teaching: Verbalize Understanding Time/GCodes Time In: 800 Time Out: 900 Total Billed Treatment Time: 60 Total Billed Treatment 1, GT (15m), EX x2 (30m) & FA (15m) MONALISA AMES ELECTRIC ORGAN INSPECTOR AND REPAIRER Mar 23, 2019 10:58
--- NOTE | 2019-03-23 11:17 | Occupational Ther Daily Note ---
OT Current Status-Daily Note Subjective Pt alert in bed upon OT arrival. Pt agrees to therapy. Mental Status/Objective Therapy Code Descriptions/Definitions Functional [place] Measure: 0=Not Assessed/NA 4=Minimal Assistance 1=Total Assistance 5=Supervision or Setup 2=Maximal Assistance 6=Modified [place] 3=Moderate Assistance 7=Complete [place] ADL-Treatment Therapy Code Descriptions/Definitions Functional [place] Measure: 0=Not Assessed/NA 4=Minimal Assistance 1=Total Assistance 5=Supervision or Setup 2=Maximal Assistance 6=Modified [place] 3=Moderate Assistance 7=Complete [place] Therapy Quality Codes: 6 Independent with activity with or without an assistive device 5 Patient requires set up or clean up by helper. Patient completes activity by themselves 4 Supervision or touching assist (CGA). [place] provide cues , steadying assist 3 The helper provides less than half the effort to complete the activity 2 The helper provides more than half the effort to complete the activity 1 Dependent. The helper does all the effort to complete an activity 7 Patient refused to complete or attempt activity 9 The patient did not perform the activity before the current illness or injury 88 Not attempted due to Medical conditions or safety concerns Grooming (FIM): 6 (Pt required FWW to brush teeth and hair at sink. ) Oral Hygiene (QC): 6 Bathing (FIM): 6 (Pt elected to sponge bathe upper body, buttock, and perinal area at sink. Pt required FWW. Pt able to cleanse, rinse, and dry self at sink. ) Bathing Location: L Arm, R Arm, Chest, Abdomen, Buttocks, Perineal Area Shower/Bathe Self (QC): 6 Upper Body (FIM): 5 (Pt able to don/doff shirt self, set up.) Upper Body Dressing (QC): 5 Lower Body Dressing (FIM): 5 (Pt able to don/doff underwear and pants self, set up. ) Lower Body Dressing (QC): 4 Toileting (FIM): 6 (Pt required FWW and grabbar. Pt able to cleanse self after voiding. Pt able to manage clothes properly before and after voiding. ) Toileting Hygiene (QC): 6 Transfers (B, C, W/C) (FIM): 5 (Pt required FWW. Supervision.) Toilet/Commode Transfer (FIM): 5 (Pt required FWW and grabbar, supervision. ) Toilet Transfer (QC): 4 Other Treatment Pt educated on tub bench transfer. Pt was able to demonstrate understanding of transfer by completing with SBA, able to lift each LE into shower then using FWW complete sit <--> stand. Discussed AE for bathroom use and types of DME that is available, ie tub transfer bench, toilet rails and elevated toilet seat. Reported conversation to high school social studies teacher.Pt then ambulated to therapy gym. Pt participated in arm bike 15 min duration at 20 pace resistance to increase UE strength and activity tolerance for daily functional activity tasks. Pt ambulated back to room to finish grooming tasks standing at sink. Pt educated on UE exercises using medium resistance theraband. Pt was given home exercise program handout and theraband. Pt able to demo understanding of the exercises after giving skilled instruction. Pt in bed with polar ice pack on L knee. Pts needs met, call light and phone left in reach. Education OT Patient Education: Home exercise program Teaching Recipient: Patient Teaching Methods: Demonstration, Handout Response to Teaching: Verbalize Understanding, Return Demonstration OT Short Term Goals Short Term Goals Time Frame: Mar 23, 2019 Eating(FIM): 5 Grooming(FIM): 5 Bathing(FIM): 5 Upper Body Dressing(FIM): 5 Lower Body Dressing(FIM): 5 Toileting(FIM): 5 Transfers (B,C,W/C) (FIM): 5 Toilet/Commode Transfer(FIM): 5 Shower Transfer(FIM): 5 Additional Short Term Goals: 1-Demonstrate ADL Tasks, 2-Verbalize Un derstanding, 3-ImproveStrength/Serena 1=Demonstrate adherence to instructed precautions during ADL tasks. 2=Patient will verbalize/demonstrate understanding of assistive devices/modifications for ADL. 3=Patient will improve strength/tolerance for activity to enable patient to perform ADL's. OT [facility] Goals [facility] Goals Time Frame: Mar 30, 2019 Eating (FIM): 6 Eating (QC): 6 Groomin Oral Hygiene (QC): 6 Bathing(FIM): 6 Shower/Bathe Self (QC): 6 Upper Body Dressing(FIM): 6 Upper Body Dressing (QC): 6 Lower Body Dressing(FIM): 6 Lower Body Dressing (QC): 6 On/Off Footwear (QC): 6 Toileting(FIM): 6 Toileting Hygiene (QC): 6 Transfers (B,C,W/C) (FIM): 6 Toilet/Commode Transfer(FIM): 6 Toilet/Commode Transfer (QC): 6 Shower Transfer(FIM): 5 Additional Goals: 1-Demonstrate ADL Tasks, 2-Verbalize Understanding, 3-ImproveStrength/Serena 1=Demonstrate adherence to instructed precautions during ADL tasks. 2=Patient will verbalize/demonstrate understanding of assistive devices/modifications for ADL. 3=Patient will improve strength/tolerance for activity to enable patient to perform ADL's. OT Education/Plan Discharge Recommendations Plan/Recommendations: Continue POC Equpiment Recommendations-D/C: Extended Bath Bench, Toilet Riser with Rails Treatment Plan/Plan of Care Patient would benefit from OT for education, treatment and training to promote independence in ADL's, mobility, safety and/or upper extremity function for ADL's. Plan of Care: ADL Retraining, Functional Mobility, Group Exercise/Act as Ind, UE Funct Exercise/Act Treatment Duration: Mar 30, 2019 Frequency: At least 5 of 7 days/Wk (IRF) Estimated Hrs Per Day: 1.5 hours per day Agreement: Yes Rehab Potential: Good Time/GCodes Start Time: 09:30 Stop Time: 11:00 Total Time Billed (hr/min): 90 Billed Treatment Time 1 visit-ADL 3 (45 min) FA (15min) EX 2 (30 min) REYES RODRIGUEZ Mar 23, 2019 11:17
--- NOTE | 2019-03-23 14:34 | Physical Therapy Daily Note ---
PT Daily Note-Current Subjective Pt sitting up in bed upon arrival. Pt agrees to PT. Pain Numeric Pain Scale: 7 Location: Incisional, Left Location Body Site: Knee Pain Description: Ache, Tightness Mental Status Patient Orientation: Person, Place, Time, Situation Attachments: Polar Pack Transfers Therapy Code Descriptions/Definitions Functional [place] Measure: 0=Not Assessed/NA 4=Minimal Assistance 1=Total Assistance 5=Supervision or Setup 2=Maximal Assistance 6=Modified [place] 3=Moderate Assistance 7=Complete [place] Therapy Quality Codes: 6 Independent with activity with or without an assistive device 5 Patient requires set up or clean up by helper. Patient completes activity by themselves 4 Supervision or touching assist (CGA). [place] provide cues , steadying ass ist 3 The helper provides less than half the effort to complete the activity 2 The helper provides more than half the effort to complete the activity 1 Dependent. The helper does all the effort to complete an activity 7 Patient refused to complete or attempt activity 9 The patient did not perform the activity before the current illness or injury 88 Not attempted due to Medical conditions or safety concerns Weight Bearing Right Lower Extremity: Right Full Weight Bearing Left Lower Extremity: Left Weight Bearing/Tolerated Exercises Supine Ex: Ankle pumps, Quad Set, Heel Slides Supine Reps: 20 Treatments Pt completes Supine Ex in bed with focus on flexion & extension of L knee. Pt has RB as needed for fatigue and pain. Pt resting at end of tx with all needs met, call light in hand. Assessment Current Status: Good Progress Pt completes EX despite more pain today than previous day's tx. PT Short Term Goals Short Term Goals Time Frame: Mar 23, 2019 Transfers (B,C,W/C) (FIM): 5 Gait (FIM): 5 PT Skilled Nursing Goals Product Managent Intern Goals PT Skilled Nursing Goals Time Frame: Mar 30, 2019 Transfers (B,C,W/C) (FIM): 7 Sit to Lying (QC): 6 Lying-Sitting on Side/Bed(QC): 6 Sit to Stand (QC): 6 Rollin Roll Left to Right (QC): 6 Chair/Bdw-yg-Anboz Xfer(QC): 6 Car Transfer (QC): 6 Does the Patient Walk: Yes Gait (FIM): 6 Gait distance (FIM): 3=150 ft Distance: 300 ft Walk 10 feet (QC): 6 Walk 10ft-Uneven Surface(QC): 6 Walk 50ft with 2 Turns (QC): 6 Walk 150 ft (QC): 6 Gait Assistive Device: FWW Does the Pt use WC or Scooter?: No Stairs (FIM): 5 # of Steps: 4 1 Step (curb) (QC): 6 4 Steps (QC): 6 12 Steps (QC): 10 Picking up an Object (QC): 4 PT Plan Problem List Problem List: Activity Tolerance, Functional Strength Treatment/Plan Treatment Plan: Continue Plan of Care Treatment Plan: Bed Mobility, Education, Functional Activity Serena, Functional Strength, Group Therapy, Gait, Safety, Therapeutic Exercise, Transfers Treatment Duration: Mar 30, 2019 Frequency: At least 5 of 7 days/Wk (IRF) Estimated Hrs Per Day: 1.5 hours per day Patient and/or Family Agrees t: Yes Safety Risks/Education Patient Education: Correct Positioning, Safety Issues Teaching Recipient: Patient Teaching Methods: Discussion Response to Teaching: Verbalize Understanding Time/GCodes Time In: 1330 Time Out: 1400 Total Billed Treatment Time: 30 Total Billed Treatment 1, EX x2 (30m) MONALISA AMES CARD HAND Mar 23, 2019 14:34
[2019-03-23] MEDS: RT-ALBUTEROL/IPRATROPIUM 3 ML (DUONEB) VIAL INH SCH (15:10)
[2019-03-23 16:00] VITALS: BP 120/82
--- NOTE | 2019-03-23 16:42 | NUR ---
1030a- TH[employer] W[employer] received recommendation from Sandhya INFANTE at the need for a tub shower transfer bench and toilet safety rails. 230p-THREAD WINDER met with patient to review costs of recommended DME. Patient requested [employer] to order products from TH[employer] W[employer]'s [employer] account and patient will provide maciel. THREAD WINDER completed transaction. Total of $83.87. Maciel exchange was witnessed by Ayala VAZQUEZ. Items to be delivered to THREAD WINDER's house on Wednesday, 03/25. THREAD W[employer] will bring items on Wednesday 826.
[2019-03-24] MEDS: HYDROcodone/APAP 10 MG/325 MG (LORTAB) TAB PO PRN ×4 (04:21→21:30)
[2019-03-24 05:06] VITALS: BP 144/80
[2019-03-24 06:26] LABS: BASOPHILS % (AUTO) 1 % (0-10); EOSINOPHILS # (AUTO) 0.2 10^3/uL (0.0-0.3); EOSINOPHILS % (AUTO) 3 % (0-10); HEMATOCRIT 33 % (35-52); HEMOGLOBIN 10.5 G/DL (11.5-16.0); LYMPHOCYTES # (AUTO) 1.5 X 10^3 (1.0-4.0); LYMPHOCYTES % (AUTO) 33 % (12-44); MEAN CORPUSCULAR HEMOGLOBIN 31 PG (25-34); MEAN CORPUSCULAR HGB CONC 32 G/DL (32-36); MEAN CORPUSCULAR VOLUME 99 FL (80-99); MEAN PLATELET VOLUME 9.1 FL (7.4-10.4); MONOCYTES # (AUTO) 0.7 X 10^3 (0.0-1.0); MONOCYTES % (AUTO) 14 % (0-12); NEUTROPHILS # (AUTO) 2.2 X 10^3 (1.8-7.8); NEUTROPHILS % (AUTO) 48 % (42-75); PLATELET COUNT 458 10^3/uL (130-400); WHITE BLOOD COUNT 4.6 10^3/uL (4.3-11.0)
[2019-03-24 06:33] LABS: ALANINE AMINOTRANSFERASE 51 U/L (0-55); ALBUMIN 3.1 GM/DL (3.2-4.5); ALKALINE PHOSPHATASE 82 U/L (40-136); BILIRUBIN,TOTAL 0.4 MG/DL (0.1-1.0); BUN/CREATININE RATIO 23; CARBON DIOXIDE 22 MMOL/L (21-32); CHLORIDE 108 MMOL/L (98-107); CREATININE SERUM 0.69 MG/DL (0.60-1.30); GFR ESTIMATED > 60; GLUCOSE 119 MG/DL (70-105); POTASSIUM 3.7 MMOL/L (3.6-5.0); SODIUM 141 MMOL/L (135-145); TOTAL PROTEIN 5.4 GM/DL (6.4-8.2)
[2019-03-24] MEDS: DOCUSATE SODIUM 100 MG (COLACE) CAP PO SCH ×2 (08:30→20:51)
[2019-03-24] MEDS: POLYETHYLENE GLYCOL 17 GM (MIRALAX) PACK PO SCH ×2 (08:31→20:50)
[2019-03-24] MEDS: SENNA W/DOCUSATE (SENOKOT S) TABLET PO SCH ×2 (08:32→20:50)
--- NOTE | 2019-03-24 08:33 | Progress Note - Hospitalist ---
CHRISTINA [facility]RAVO [facility] 03/24/19 0833: Progress Note Jd had a better night sleep. She was able to fall back asleep after her night time wakening Pain is better controlled No episodes of tremors or shakiness since stopping the breathing treatments. Planning on "day pass" tomorrow with assistance from her daughter and sister at home. EUGENIA CROW DO 03/24/197: Supervisory-Addendum Brief Verification & Attestation Participated in pt care: history, MDM, physical Personally performed: exam, history, MDM, supervision of care Care discussed with: Medical Student Procedures: n/a Results interpretation: Verified all documentation Verification and Attestation of Medical Student E/M Service A medical student performed and documented this service in my presence. I reviewed and verified all information documented by the medical student and made modifications to such information, when appropriate. I personally performed the physical exam and medical decision making. Eugenia Crow Mar 24, 2019,21:27 CHRISTINA [facility]VO [facility] Mar 24, 2019 08:33 EUGENIA CROW DO Mar 24, 2019 21:27
[2019-03-24] MEDS: APIXABAN 5 MG (ELIQUIS) TABLET PO SCH ×2 (08:46→20:49)
[2019-03-24] MEDS: amLODIPine 10 MG (NORVASC) TAB PO SCH (08:46)
[2019-03-24] MEDS: meTOprolol TARTRATE 50 MG (LOPRESSOR) TAB PO SCH ×2 (08:46→20:49)
[2019-03-24] MEDS: MULTIVIT W/MINERALS TAB (THERAGRAN M) PO SCH (08:47)
[2019-03-24] MEDS: VALSARTAN 160 MG (DIOVAN) TABLET PO SCH (08:47)
[2019-03-24] MEDS: ASPIRIN 81 MG CHEW (CHILDREN'S ASA) PO SCH (08:47)
[2019-03-24] MEDS: CALCIUM CARB + VIT D 600 MG (CALCARB + D) TAB PO SCH (08:47)
[2019-03-24] MEDS: LACTOBACILLUS ACIDOPHILUS (PROBIOTIC) CAPSULE PO SCH (08:47)
[2019-03-24] MEDS: PANTOPRAZOLE 40 MG (PROTONIX) TAB PO SCH (08:47)
[2019-03-24] MEDS: VITAMIN D3 1,000 UNITS (CHOLECALCIFEROL) TABLET PO SCH (08:48)
--- NOTE | 2019-03-24 08:58 | Physical Therapy Daily Note ---
PT Daily Note-Current Subjective Pt. agrees to Rx. States she is going home on a visit tomorrow and is curious when her PT Rx will be. This PHOTOGRAPHIC ENLARGER OPERATOR explains that I will forward that she would profit from early "1st thing" Rx time. Pt. c/o pain in left knee at 6/10 Pain Numeric Pain Scale: 6 Location: Left Location Body Site: Knee Pain Description: Stabbing Mental Status Patient Orientation: Normal For Age Attachments: Other-See Comments (CPM and polar pack) Transfers Therapy Code Descriptions/Definitions Functional [place] Measure: 0=Not Assessed/NA 4=Minimal Assistance 1=Total Assistance 5=Supervision or Setup 2=Maximal Assistance 6=Modified [place] 3=Moderate Assistance 7=Complete [place] Therapy Quality Codes: 6 Independent with activity with or without an assistive device 5 Patient requires set up or clean up by helper. Patient completes activity by themselves 4 Supervision or touching assist (CGA). [place] provide cues , steadying assist 3 The helper provides less than half the effort to complete the activity 2 The helper provides more than half the effort to complete the activity 1 Dependent. The helper does all the effort to complete an activity 7 Patient refused to complete or attempt activity 9 The patient did not perform the activity before the current illness or injury 88 Not attempted due to Medical conditions or safety concerns Transfers (B, C, W/C) (FIM): 6 Scootin Rollin Supine to/from Sit: 6 Sit to/from Stand: 6 Bed to/from Chair: 6 car TRF SBA Weight Bearing Right Lower Extremity: Right Full Weight Bearing Left Lower Extremity: Left Weight Bearing/Tolerated Gait Training Does the Patient Walk?: Yes Gait (FIM): 5 Distance (FIM): 3=150 ft (165 x 2, 50) Gait Level of Assist: 5 Gait Persons Needed: 1 Gait Assistive Device: FWW pt. near up ad aldair status Stair Training Stair Training: Handrails/: 2 handrails Stairs (FIM): 5 #of Steps: 4 Stairs: Pattern: Step to Level of Assist: 5 household exception Exercises Supine Ex: Ankle pumps, Quad Set, Rolling, Glut sets, Heel Slides, Short Arc Quads, Scooting, Straight leg raise, Hip abd/add Supine Reps: 15 Seated Therapy Exercises: Ankle pumps, Sit to stand, Long arc quads, Hip flexion Seated Reps: 12 Standing: Hip Abduction, Hamstring curls, Heel/toe raises, Marching, Mini squats Standing Reps: 12 NuStep Minutes: 10 NuStep Workload: 5 Assessment Current Status: Good Progress AROM ext 10deg flexion 80 deg, PROM 10 deg flexion 85 deg PT Short Term Goals Short Term Goals Time Frame: Mar 23, 2019 Transfers (B,C,W/C) (FIM): 5 Gait (FIM): 5 PT Office Associate Goals Office Associate Goals PT Snf Goals Time Frame: Mar 30, 2019 Transfers (B,C,W/C) (FIM): 7 Sit to Lying (QC): 6 Lying-Sitting on Side/Bed(QC): 6 Sit to Stand (QC): 6 Rollin Roll Left to Right (QC): 6 Chair/Lhz-vc-Gudac Xfer(QC): 6 Car Transfer (QC): 6 Does the Patient Walk: Yes Gait (FIM): 6 Gait distance (FIM): 3=150 ft Distance: 300 ft Walk 10 feet (QC): 6 Walk 10ft-Uneven Surface(QC): 6 Walk 50ft with 2 Turns (QC): 6 Walk 150 ft (QC): 6 Gait Assistive Device: FWW Does the Pt use WC or Scooter?: No Stairs (FIM): 5 # of Steps: 4 1 Step (curb) (QC): 6 4 Steps (QC): 6 12 Steps (QC): 10 Picking up an Object (QC): 4 PT Plan Treatment/Plan Treatment Plan: Continue Plan of Care Treatment Plan: Bed Mobility, Education, Functional Activity Serena, Functional Strength, Group Therapy, Gait, Safety, Therapeutic Exercise, Transfers Treatment Duration: Mar 30, 2019 Frequency: At least 5 of 7 days/Wk (IRF) Estimated Hrs Per Day: 1.5 hours per day Patient and/or Family Agrees t: Yes Safety Risks/Education Patient Education: Gait Training, Transfer Techniques, Steps, Correct Positioning, Disease Process, Safety Issues Teaching Recipient: Patient Teaching Methods: Demonstration, Discussion Response to Teaching: Verbalize Understanding, Return Demonstration, Reinforcement Needed Time/GCodes Time In: 800 Time Out: 900 Total Billed Treatment Time: 60 Total Billed Treatment 1,EX35m,GT15m,FA10m LARA FREEMAN PHOTOGRAPHIC ENLARGER OPERATOR Mar 24, 2019 08:58
--- NOTE | 2019-03-24 10:05 | PM&R Progress Note ---
Subjective HPI/CC On Admission Date Seen by Provider: Mar 24, 2019 Time Seen by Provider: 09:45 Chief Complaint: Debility following left total knee replacement HPI: This is a 74[address]WF pt [address] Dr. Gonzalez who presents to the in patient rehab unit following slow recovery from a left total knee replacement uncomplicated by Dr. Anderson. Her PCP is Dr. Gonzalez her Apprentice Plumber is Dr. Combs. At this current time pt has not had a BM since before surgery so well need to work on that she feels pretty drained after walking with PT today and overall has had no other events during her hospital stay. 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 At this current time pt is deemed stable for transfer by her family to in patient rehab at [facility] and had an uneventful transport to [place]. Note per Sat[facility] Hurtado [facility]: Ms. Arriaga is a 74 y/o female with a PMH of COPD, HTN, CAD, and hyperlipidemia who presents to the rehab unit s/p L TKA performed by Dr. Anderson on 03/14. She had a long history of L knee pain. She described the pain as a persistent popping and grinding. A diagnosis of severe Osteoarthritis was made by Dr. Anderson with a decision to move forward with a Left Total Knee replacement. Her post-op course has been uneventful. She classifies her current pain level as a 6/10 while working with OT. She lives alone in a single story home without internal stairs. There are a total of 3 steps needed to traverse in order to enter the home. 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 Subjective/Events-last exam Pain meds are given pretty scheduled so we will decrease the opportunity and try to work through some pain today Doing well overall Therapies show good participation Day past tomorrow with family Bowels are moving No need for nebulizer treatments Oxygen maintained good without oxygen supplementation Smoking cessation discussed Check meds and labs Conferred with RN Reviewed therapy notes Review of Systems General: Fatigue Musculoskeletal: leg pain Objective Exam Vital Signs Vital Signs Date Time Temp Pulse Resp B/P (MAP) Pulse Ox O2 Delivery O2 Flow Rate FiO2 03/24/19 16:00 97.7 72 18 137/84 (101) 97 Room Air Capillary Refill : General Appearance: No Apparent Distress, WD/WN, Chronically ill HEENT: PERRL/EOMI, TMs Normal, Normal ENT Inspection, Pharynx Normal Respiratory: Chest Non Tender, Lungs Clear, No Accessory Muscle Use, No Respiratory Distress, Decreased Breath Sounds Cardiovascular: Regular Rate, Rhythm, No Edema, No Gallop, No JVD, No Murmur, Normal Peripheral Pulses Gastrointestinal: Normal Bowel Sounds, No Organomegaly, No Pulsatile Mass, Non Tender, Soft Rectal: Deferred Back: Normal Inspection, No CVA Tenderness, No Vertebral Tenderness Extremity: Normal Capillary Refill, Normal Inspection, Normal Range of Motion (limited ROM legs), Non Tender, No Calf Tenderness Neurologic/Psychiatric: Alert, Oriented x3, No Motor/Sensory Deficits, Normal Mood/Affect, landscape technician II-XII Norm as Tested Skin: Normal Color, Warm/Dry Lymphatic: No Adenopathy Results/Procedures Lab Laboratory Tests 03/24/19 05:15 Patient resulted labs reviewed. FIM Transfers Therapy Code Descriptions/Definitions Functional [place] Measure: 0=Not Assessed/NA 4=Minimal Assistance 1=Total Assistance 5=Supervision or Setup 2=Maximal Assistance 6=Modified [place] 3=Moderate Assistance 7=Complete [place] Therapy Quality Codes: 6 Independent with activity with or without an assistive device 5 Patient requires set up or clean up by helper. Patient completes activity by themselves 4 Supervision or touching assist (CGA). [place] provide cues , steadying assist 3 The helper provides less than half the effort to complete the activity 2 The helper provides more than half the effort to complete the activity 1 Dependent. The helper does all the effort to complete an activity 7 Patient refused to complete or attempt activity 9 The patient did not perform the activity before the current illness or injury 88 Not attempted due to Medical conditions or safety concerns Transfers (B, C, W/C) (FIM): 6 Scootin Rollin Roll Left to Right (QC): 4 Supine to/from Sit: 6 Sit to/from Stand: 6 Sit to Lying (QC): 5 Sit to Stand (QC): 5 Chair/Nqo-pv-Tmioi Xfer(QC): 4 Bed to/from Chair: 6 Car Transfer (QC): 3 (assist to get both legs in and out of the car ; assist to stand up) Gait Training Does the Patient Walk?: Yes Gait (FIM): 5 Distance (FIM): 3=150 ft (165 x 2, 50) Distance: 150' Walk 10 feet (QC): 5 Walk 50 ft with 2 Turns(QC): 5 Walk 150 ft (QC): 5 Walking 10ft/uneven surface-QC: 4 Gait Level of Assist: 5 Gait Persons Needed: 1 Gait Assistive Device: FWW Wheelchair Training Does the Pt Use a Wheelchair?: No Stair Training Stair Training: Handrails/: 2 handrails Stairs (FIM): 5 #of Steps: 4 1 Step (curb) (QC): 5 4 Steps (QC): 5 Stairs: Pattern: Step to Level of Assist: 5 Balance Picking up an Object (QC): 88 (unsafe to attempt) Mental Status/Objective Comprehension: 7 Expression: 7 Social Interaction: 7 Problem Solvin Memory: 6 ADL-Treatment Groomin (Pt required FWW to brush teeth and hair at sink. ) Oral Hygiene (QC): 6 Bathin (Pt elected to sponge bathe upper body, buttock, and perinal area at sink. Pt required FWW. Pt able to cleanse, rinse, and dry self at sink. ) Bathing Location: L Arm, R Arm, Chest, Abdomen, Buttocks, Perineal Area Shower/Bathe Self (QC): 6 Upper Extremity Dressin (Pt able to don/doff shirt self, set up.) Upper Body Dressing (QC): 5 Lower Extremity Dressin (Pt able to don/doff underwear and pants self, set up. ) Lower Body Dressing (QC): 4 On/Off Footwear (QC): 5 Toiletin (Pt required FWW and grabbar. Pt able to cleanse self after voiding. Pt able to manage clothes properly before and after voiding. ) Toileting Hygiene (QC): 6 Toilet/Commode Transfer: 5 (Pt required FWW and grabbar, supervision. ) Toilet Transfer (QC): 4 Shower: 5 (Pt required FWW, grabbar, shower bench. SBA, supervision. ) Assessment/Plan Assessment and Plan Assess & Plan/Chief Complaint Assessment: Status post left total knee replacement uncomplicated Slow recovery COPD Current smoker Coarse breath sounds order nebulizers much improved Paroxysmal atrial fibrillation Long-term oral anticoagulation Postop constipation now resolved Hypertension LFT elevation Insomnia Plan: BM regimen to continue Maintain inpatient rehab protocol Monitor pain and continue pain medication Progressing nicely PCP to help with insomnia is appreciated Daypass tomorrow Likely DC Wednesday (1) Status post left knee replacement Status: Acute (2) COPD (chronic obstructive pulmonary disease) Status: Chronic Qualifiers: COPD type: unspecified COPD Qualified Codes: J44.9 - Chronic obstructive pulmonary disease, unspecified (3) Constipation Status: Acute Qualifiers: Constipation type: drug induced constipation Qualified Codes: K59.03 - Drug induced constipation (4) Hypertension Status: Chronic Qualifiers: Hypertension type: essential hypertension Qualified Codes: I10 - Essential (primary) hypertension (5) CAD (coronary artery disease) Status: Chronic Qualifiers: Coronary Disease-Associated Artery/Lesion type: [place] artery [place] vs. transplanted heart: [place] heart Associated angina: without angina Qualified Codes: I25.10 - Atherosclerotic heart disease of [place] coronary artery without angina pectoris (6) Paroxysmal atrial fibrillation (7) Debility Status: Acute (8) Anticoagulant long-term use Status: Chronic (9) Smoker Status: Chronic (10) Elevated liver enzymes Status: Acute (11) Insomnia Status: Acute Qualifiers: Insomnia type: primary Qualified Codes: F51.01 - Primary insomnia DANIEL THOMPSON DO Mar 24, 2019 10:05
--- NOTE | 2019-03-24 10:36 | Occupational Ther Daily Note ---
OT Current Status-Daily Note Subjective Pt alert lying in bed. Pt agrees to therapy. Mental Status/Objective Patient Orientation: Person, Place, Time, Situation Therapy Code Descriptions/Definitions Functional [place] Measure: 0=Not Assessed/NA 4=Minimal Assistance 1=Total Assistance 5=Supervision or Setup 2=Maximal Assistance 6=Modified [place] 3=Moderate Assistance 7=Complete [place] ADL-Treatment Therapy Code Descriptions/Definitions Functional [place] Measure: 0=Not Assessed/NA 4=Minimal Assistance 1=Total Assistance 5=Supervision or Setup 2=Maximal Assistance 6=Modified [place] 3=Moderate Assistance 7=Complete [place] Therapy Quality Codes: 6 Independent with activity with or without an assistive device 5 Patient requires set up or clean up by helper. Patient completes activity by themselves 4 Supervision or touching assist (CGA). [place] provide cues , steadying assist 3 The helper provides less than half the effort to complete the activity 2 The helper provides more than half the effort to complete the activity 1 Dependent. The helper does all the effort to complete an activity 7 Patient refused to complete or attempt activity 9 The patient did not perform the activity before the current illness or injury 88 Not attempted due to Medical conditions or safety concerns Grooming (FIM): 7 (Pt able to brush hair and teeth self. Pt supported self with counter.) Oral Hygiene (QC): 6 Bathing (FIM): 6 (Pt required shower bench and hand held shower head. Pt able to wash, rinse, and dry self. ) Bathing Location: L Arm, R Arm, L Upper Leg, R Upper Leg, L Lower Leg (including foot), R Lower Leg (including foot), Chest, Abdomen, Buttocks, Perineal Area Shower/Bathe Self (QC): 6 Upper Body (FIM): 6 (Pt able to retrieve clothes with FWW. Pt able to don/doff clothing properly. ) Upper Body Dressing (QC): 6 Lower Body Dressing (FIM): 6 (Pt able to retrieve clothes using FWW. Pt able to don/doff underwear, pants, and socks self. ) Lower Body Dressing (QC): 6 Transfers (B, C, W/C) (FIM): 6 (Pt required FWW.) Shower Transfer(FIM): 6 (Pt required FWW, grabbar, and shower bench. ) Other Treatment Pt ambulated to therapy gym. Pt participated in arm bike exercise duration 15 min 20 watt resistance to increase UE strength for daily activity tasks. Pt participated in L/R UE exercise using 2lb dumb bells 3 reps 10X to increase strength for functional activity tasks. Pt ambulated to room. Pt in bed, ice pack on L knee, call light and phone in reach. Pts needs met. OT Short Term Goals Short Term Goals Time Frame: Mar 23, 2019 Eating(FIM): 5 Grooming(FIM): 5 Bathing(FIM): 5 Upper Body Dressing(FIM): 5 Lower Body Dressing(FIM): 5 Toileting(FIM): 5 Transfers (B,C,W/C) (FIM): 5 Toilet/Commode Transfer(FIM): 5 Shower Transfer(FIM): 5 Additional Short Term Goals: 1-Demonstrate ADL Tasks, 2-Verbalize Understanding, 3-ImproveStrength/Serena 1=Demonstrate adherence to instructed precautions during ADL tasks. 2=Patient will verbalize/demonstrate understanding of assistive devices/modifications for ADL. 3=Patient will improve strength/tolerance for activity to enable patient to p erform ADL's. OT Communications Technologist Goals Intermediate Goals Time Frame: Mar 30, 2019 Eating (FIM): 6 Eating (QC): 6 Groomin Oral Hygiene (QC): 6 Bathing(FIM): 6 Shower/Bathe Self (QC): 6 Upper Body Dressing(FIM): 6 Upper Body Dressing (QC): 6 Lower Body Dressing(FIM): 6 Lower Body Dressing (QC): 6 On/Off Footwear (QC): 6 Toileting(FIM): 6 Toileting Hygiene (QC): 6 Transfers (B,C,W/C) (FIM): 6 Toilet/Commode Transfer(FIM): 6 Toilet/Commode Transfer (QC): 6 Shower Transfer(FIM): 5 Additional Goals: 1-Demonstrate ADL Tasks, 2-Verbalize Understanding, 3- ImproveStrength/Serena 1=Demonstrate adherence to instructed precautions during ADL tasks. 2=Patient will verbalize/demonstrate understanding of assistive devices /modifications for ADL. 3=Patient will improve strength/tolerance for activity to enable patient to perform ADL's. OT Education/Plan Problem List/Assessment Assessment: Decreased UE Strength, Impaired Self-Care Skills Discharge Recommendations Plan/Recommendations: Continue POC Treatment Plan/Plan of Care Patient would benefit from OT for education, treatment and training to promote independence in ADL's, mobility, safety and/or upper extremity function for ADL's. Plan of Care: ADL Retraining, Functional Mobility, Group Exercise/Act as Ind, UE Funct Exercise/Act Treatment Duration: Mar 30, 2019 Frequency: At least 5 of 7 days/Wk (IRF) Estimated Hrs Per Day: 1.5 hours per day Agreement: Yes Rehab Potential: Good Time/GCodes Start Time: 09:25 Stop Time: 10:25 Total Time Billed (hr/min): 60 Billed Treatment Time 1 visit-ADL 2 (35 min) EX 2 (25 min) REYES RODRIGUEZ Mar 24, 2019 10:36
--- NOTE | 2019-03-24 13:29 | Physical Therapy Daily Note ---
PT Daily Note-Current Subjective Pt. agrees to Rx. States she likes being in indep unit room. Pain Location: No Pain Reported Mental Status Patient Orientation: Normal For Age Transfers Therapy Code Descriptions/Definitions Functional [place] Measure: 0=Not Assessed/NA 4=Minimal Assistance 1=Total Assistance 5=Supervision or Setup 2=Maximal Assistance 6=Modified [place] 3=Moderate Assistance 7=Complete [place] Therapy Quality Codes: 6 Independent with activity with or without an assistive device 5 Patient requires set up or clean up by helper. Patient completes activity by themselves 4 Supervision or touching assist (CGA). [place] provide cues , steadying assist 3 The helper provides less than half the effort to complete the activity 2 The helper provides more than half the effort to complete the activity 1 Dependent. The helper does all the effort to complete an activity 7 Patient refused to complete or attempt activity 9 The patient did not perform the activity before the current illness or injury 88 Not attempted due to Medical conditions or safety concerns all TRFs in out full size bed in room as well as recliner Mod I Weight Bearing Right Lower Extremity: Right Full Weight Bearing Left Lower Extremity: Left Weight Bearing/Tolerated Gait Training Gait Assistive Device: FWW 250ft, 175 FWW Mod I, emphasis on extension at knee with heel strike and evening step length Exercises Supine Ex: Bridging, Ankle pumps, Quad Set, Rolling, Glut sets, Heel Slides, Short Arc Quads, Scooting, Straight leg raise (x5 indep), Hip abd/add Supine Reps: 15 Seated Therapy Exercises: Ankle pumps, Sit to stand, Long arc quads, Hip flexion, Hip abd/add Seated Reps: 12 NuStep Minutes: 12 NuStep Workload: 4 Treatments extension and flexion hold emphasized on Nustep Assessment Current Status: Good Progress increased funct mob, decrease pain c/o PT Short Term Goals Short Term Goals Time Frame: Mar 23, 2019 Transfers (B,C,W/C) (FIM): 5 Gait (FIM): 5 PT Client Server Developer Goals Client Server Developer Goals PT Assisted Goals Time Frame: Mar 30, 2019 Transfers (B,C,W/C) (FIM): 7 Sit to Lying (QC): 6 Lying-Sitting on Side/Bed(QC): 6 Sit to Stand (QC): 6 Rollin Roll Left to Right (QC): 6 Chair/Pli-kd-Dvgaz Xfer(QC): 6 Car Transfer (QC): 6 Does the Patient Walk: Yes Gait (FIM): 6 Gait distance (FIM): 3=150 ft Distance: 300 ft Walk 10 feet (QC): 6 Walk 10ft-Uneven Surface(QC): 6 Walk 50ft with 2 Turns (QC): 6 Walk 150 ft (QC): 6 Gait Assistive Device: FWW Does the Pt use WC or Scooter?: No Stairs (FIM): 5 # of Steps: 4 1 Step (curb) (QC): 6 4 Steps (QC): 6 12 Steps (QC): 10 Picking up an Object (QC): 4 PT Plan Treatment/Plan Treatment Plan: Continue Plan of Care Treatment Plan: Bed Mobility, Education, Functional Activity Serena, Functional Strength, Group Therapy, Gait, Safety, Therapeutic Exercise, Transfers Treatment Duration: Mar 30, 2019 Frequency: At least 5 of 7 days/Wk (IRF) Estimated Hrs Per Day: 1.5 hours per day Patient and/or Family Agrees t: Yes Safety Risks/Education Patient Education: Gait Training, Transfer Techniques Teaching Recipient: Patient Teaching Methods: Demonstration, Discussion Response to Teaching: Verbalize Understanding, Return Demonstration, Reinforcement Needed Time/GCodes Time In: 1230 Time Out: 1330 Total Billed Treatment Time: 60 Total Billed Treatment 1,EX35,FA15,GT10 LARA FREEMAN FINANCING ANALYST Mar 24, 2019 13:29
[2019-03-24 16:00] VITALS: BP 137/84
--- NOTE | 2019-03-24 19:20 | NUR ---
bedside report received from KWAN ESQUIVEL, assume care of pt
[2019-03-24 20:40] VITALS: BP 113/71
[2019-03-24] MEDS: MELATONIN 3 MG TABLET PO PRN (20:49)
--- NOTE | 2019-03-24 20:50 | NUR ---
assessments & interventions completed, see assessments & interventions, pt refused laquita Dee & Bharat
--- NOTE | 2019-03-24 21:30 | NUR ---
c/o pain level 7/10 on numeric scale, Lortab 10 1 tab po given
--- NOTE | 2019-03-24 22:10 | NUR ---
pain level 2/10 on numeric scale
[2019-03-25] MEDS: HYDROcodone/APAP 10 MG/325 MG (LORTAB) TAB PO PRN ×4 (04:39→22:52)
--- NOTE | 2019-03-25 04:49 | NUR ---
c/o pain level 5/10 on numeric scale, Lortab 10 1 tab po given
--- NOTE | 2019-03-25 05:20 | NUR ---
rates pain level 2/10 on numeric scale
[2019-03-25 06:00] VITALS: BP 138/80
--- NOTE | 2019-03-25 07:22 | NUR ---
bedside report given to OLIVA ESQUIVEL
[2019-03-25] MEDS: VALSARTAN 160 MG (DIOVAN) TABLET PO SCH (08:49)
[2019-03-25] MEDS: MULTIVIT W/MINERALS TAB (THERAGRAN M) PO SCH (08:49)
[2019-03-25] MEDS: DOCUSATE SODIUM 100 MG (COLACE) CAP PO SCH ×2 (08:49→21:00)
[2019-03-25] MEDS: amLODIPine 10 MG (NORVASC) TAB PO SCH (08:49)
[2019-03-25] MEDS: PANTOPRAZOLE 40 MG (PROTONIX) TAB PO SCH (08:49)
[2019-03-25] MEDS: meTOprolol TARTRATE 50 MG (LOPRESSOR) TAB PO SCH ×2 (08:49→20:39)
[2019-03-25] MEDS: ASPIRIN 81 MG CHEW (CHILDREN'S ASA) PO SCH (08:49)
[2019-03-25] MEDS: VITAMIN D3 1,000 UNITS (CHOLECALCIFEROL) TABLET PO SCH (08:49)
[2019-03-25] MEDS: APIXABAN 5 MG (ELIQUIS) TABLET PO SCH ×2 (08:49→20:40)
[2019-03-25] MEDS: CALCIUM CARB + VIT D 600 MG (CALCARB + D) TAB PO SCH (08:49)
[2019-03-25] MEDS: POLYETHYLENE GLYCOL 17 GM (MIRALAX) PACK PO SCH ×2 (08:49→21:00)
[2019-03-25] MEDS: LACTOBACILLUS ACIDOPHILUS (PROBIOTIC) CAPSULE PO SCH (08:49)
[2019-03-25] MEDS: SENNA W/DOCUSATE (SENOKOT S) TABLET PO SCH ×2 (08:49→21:00)
--- NOTE | 2019-03-25 10:22 | NUR ---
LU[facility] WITH FAMILY ON DAY PASS AT THIS TIME
--- NOTE | 2019-03-25 11:47 | Physical Therapy Daily Note ---
PT Daily Note-Current Subjective Agrees to PT. Going on a day pass today. Sister is here to take her and has brought her walker to try. Transfers Therapy Code Descriptions/Definitions Functional [place] Measure: 0=Not Assessed/NA 4=Minimal Assistance 1=Total Assistance 5=Supervision or Setup 2=Maximal Assistance 6=Modified [place] 3=Moderate Assistance 7=Complete [place] Therapy Quality Codes: 6 Independent with activity with or without an assistive device 5 Patient requires set up or clean up by helper. Patient completes activity by themselves 4 Supervision or touching assist (CGA). [place] provide cues , steadying assist 3 The helper provides less than half the effort to complete the activity 2 The helper provides more than half the effort to complete the activity 1 Dependent. The helper does all the effort to complete an activity 7 Patient refused to complete or attempt activity 9 The patient did not perform the activity before the current illness or injury 88 Not attempted due to Medical conditions or safety concerns Weight Bearing Right Lower Extremity: Right Full Weight Bearing Left Lower Extremity: Left Weight Bearing/Tolerated Treatments Adjusted walker to fit patient height. Gait training with FWW mod indep with transfers and gait x 200 ft. Pt to go on home pass this date. Assessment Current Status: Good Progress Safe with functional transfers and gait this visit. PT Short Term Goals Short Term Goals Time Frame: Mar 23, 2019 Transfers (B,C,W/C) (FIM): 5 (met) Gait (FIM): 5 (met) PT Firesetter Goals Fdc Goals PT Firesetter Goals Time Frame: Mar 30, 2019 Transfers (B,C,W/C) (FIM): 7 Sit to Lying (QC): 6 Lying-Sitting on Side/Bed(QC): 6 Sit to Stand (QC): 6 Rollin Roll Left to Right (QC): 6 Chair/Btz-zy-Ruety Xfer(QC): 6 Car Transfer (QC): 6 Does the Patient Walk: Yes Gait (FIM): 6 Gait distance (FIM): 3=150 ft Distance: 300 ft Walk 10 feet (QC): 6 Walk 10ft-Uneven Surface(QC): 6 Walk 50ft with 2 Turns (QC): 6 Walk 150 ft (QC): 6 Gait Assistive Device: FWW Does the Pt use WC or Scooter?: No Stairs (FIM): 5 # of Steps: 4 1 Step (curb) (QC): 6 4 Steps (QC): 6 12 Steps (QC): 10 Picking up an Object (QC): 4 PT Plan Problem List Problem List: Activity Tolerance, Functional Strength, Safety Treatment/Plan Treatment Plan: Continue Plan of Care Treatment Plan: Bed Mobility, Education, Functional Activity Serena, Functional Strength, Group Therapy, Gait, Safety, Therapeutic Exercise, Transfers Treatment Duration: Mar 30, 2019 Frequency: At least 5 of 7 days/Wk (IRF) Estimated Hrs Per Day: 1.5 hours per day Patient and/or Family Agrees t: Yes Safety Risks/Education Patient Education: Gait Training Teaching Recipient: Patient Teaching Methods: Demonstration, Discussion Response to Teaching: Return Demonstration Time/GCodes Time In: 1010 Time Out: 1025 Total Billed Treatment Time: 15 Total Billed Treatment visit GT 15 REYES GREWAL PT Mar 25, 2019 11:47
--- NOTE | 2019-03-25 19:07 | NUR ---
bedside report received from OLIVA ESQUIVEL, assume care of pt
[2019-03-25 19:08] VITALS: BP 120/74
[2019-03-25 20:35] VITALS: BP 118/73
[2019-03-25] MEDS: MELATONIN 3 MG TABLET PO PRN (20:39)
--- NOTE | 2019-03-25 20:40 | NUR ---
assessments & interventions completed, see assessments & interventions, pt refused laquita Dee & Bharat
--- NOTE | 2019-03-25 20:44 | NUR ---
c/o pain level 8/10 on numeric scale, Ultram 50mg po given
--- NOTE | 2019-03-25 21:20 | NUR ---
pain level 7/10 on numeric scale
--- NOTE | 2019-03-25 22:52 | NUR ---
c/o pain level 6/10 on numeric scale, Lortab 10 1 tab po given
--- NOTE | 2019-03-25 23:30 | NUR ---
pain level 2/10 on numeric scale
[2019-03-26 05:58] VITALS: BP 121/78
[2019-03-26] MEDS: HYDROcodone/APAP 10 MG/325 MG (LORTAB) TAB PO PRN ×4 (06:31→21:13)
--- NOTE | 2019-03-26 06:31 | NUR ---
c/o pain level 6/10 on numeric scale, Lortab 10 1 tab po given
--- NOTE | 2019-03-26 07:15 | NUR ---
pain level 2/10 on numeric scale, report given to KWAN ESQUIVEL
[2019-03-26] MEDS: POLYETHYLENE GLYCOL 17 GM (MIRALAX) PACK PO SCH ×2 (07:50→21:00)
[2019-03-26] MEDS: SENNA W/DOCUSATE (SENOKOT S) TABLET PO SCH ×2 (07:50→21:00)
[2019-03-26] MEDS: LACTOBACILLUS ACIDOPHILUS (PROBIOTIC) CAPSULE PO SCH (08:35)
[2019-03-26] MEDS: meTOprolol TARTRATE 50 MG (LOPRESSOR) TAB PO SCH ×2 (08:36→21:12)
[2019-03-26] MEDS: PANTOPRAZOLE 40 MG (PROTONIX) TAB PO SCH (08:36)
[2019-03-26] MEDS: APIXABAN 5 MG (ELIQUIS) TABLET PO SCH ×2 (08:36→21:13)
[2019-03-26] MEDS: CALCIUM CARB + VIT D 600 MG (CALCARB + D) TAB PO SCH (08:36)
[2019-03-26] MEDS: MULTIVIT W/MINERALS TAB (THERAGRAN M) PO SCH (08:36)
[2019-03-26] MEDS: VITAMIN D3 1,000 UNITS (CHOLECALCIFEROL) TABLET PO SCH (08:36)
[2019-03-26] MEDS: DOCUSATE SODIUM 100 MG (COLACE) CAP PO SCH ×2 (08:36→21:00)
[2019-03-26] MEDS: VALSARTAN 160 MG (DIOVAN) TABLET PO SCH (08:36)
[2019-03-26] MEDS: amLODIPine 10 MG (NORVASC) TAB PO SCH (08:36)
[2019-03-26] MEDS: ASPIRIN 81 MG CHEW (CHILDREN'S ASA) PO SCH (08:36)
--- NOTE | 2019-03-26 11:59 | PM&R Progress Note ---
Subjective HPI/CC On Admission Date Seen by Provider: Mar 26, 2019 Time Seen by Provider: 11:45 Chief Complaint: Debility following left total knee replacement HPI: This is a 74yoWF pt of Dr. Gonzalez who presents to the in patient rehab unit following slow recovery from a left total knee replacement uncomplicated by Dr. Anderson. Her PCP is Dr. Gonzalez her Block And Case Maker is Dr. Combs. At this current time pt has not had a BM since before surgery so well need to work on that she feels pretty drained after walking with PT today and overall has had no other events during her hospital stay. 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 At this current time pt is deemed stable for transfer by her family to in patient rehab at [facility] and had an uneventful transport to [place]. Note per [facility]ado [facility] Ms. Arriaga is a 74 y/o female with a PMH of COPD, HTN, CAD, and hyperlipidemia who presents to the rehab unit s/p L TKA performed by Dr. Anderson on 03/14. She had a long history of L knee pain. She described the pain as a persistent popping and grinding. A diagnosis of severe Osteoarthritis was made by Dr. Anderson with a decision to move forward with a Left Total Knee replacement. Her post-op course has been uneventful. She classifies her current pain level as a 6/10 while working with OT. She lives alone in a single story home without internal stairs. There are a total of 3 steps needed to traverse in order to enter the home. 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 Subjective/Events-last exam Pain meds are given pretty scheduled and had pain during Dap pass yesterday Doing well overall and she enjoyed being out yesterday Therapies show good participation overall Bowels are moving well No need for nebulizer treatments and DC days ago Oxygen maintained good without oxygen supplementation Smoking cessation discussed Check meds and labs Conferred with RN Reviewed therapy notes Review of Systems Musculoskeletal: leg pain Objective Exam Vital Signs Vital Signs Date Time Temp Pulse Resp B/P (MAP) Pulse Ox O2 Delivery O2 Flow Rate FiO2 03/26/19 08:20 Room Air 03/26/19 05:58 97.1 65 16 121/78 (92 96 Capillary Refill : General Appearance: No Apparent Distress, WD/WN, Chronically ill HEENT: PERRL/EOMI, TMs Normal, Normal ENT Inspection, Pharynx Normal Respiratory: Chest Non Tender, Lungs Clear, No Accessory Muscle Use, No Respiratory Distress, Decreased Breath Sounds Cardiovascular: Regular Rate, Rhythm, No Edema, No Gallop, No JVD, No Murmur, Normal Peripheral Pulses Gastrointestinal: Normal Bowel Sounds, No Organomegaly, No Pulsatile Mass, Non Tender, Soft Rectal: Deferred Back: Normal Inspection, No CVA Tenderness, No Vertebral Tenderness Extremity: Normal Capillary Refill, Normal Inspection, Normal Range of Motion (limited ROM legs), Non Tender, No Calf Tenderness Neurologic/Psychiatric: Alert, Oriented x3, No Motor/Sensory Deficits, Normal Mood/Affect, dietary manager II-XII Norm as Tested Skin: Normal Color, Warm/Dry Lymphatic: No Adenopathy Results/Procedures Lab Patient resulted labs reviewed. FIM Transfers Therapy Code Descriptions/Definitions Functional [place] Measure: 0=Not Assessed/NA 4=Minimal Assistance 1=Total Assistance 5=Supervision or Setup 2=Maximal Assistance 6=Modified [place] 3=Moderate Assistance 7=Complete [place] Therapy Quality Codes: 6 Independent with activity with or without an assistive device 5 Patient requires set up or clean up by helper. Patient completes activity by themselves 4 Supervision or touching assist (CGA). [place] provide cues , steadying assist 3 The helper provides less than half the effort to complete the activity 2 The helper provides more than half the effort to complete the activity 1 Dependent. The helper does all the effort to complete an activity 7 Patient refused to complete or attempt activity 9 The patient did not perform the activity before the current illness or injury 88 Not attempted due to Medical conditions or safety concerns Transfers (B, C, W/C) (FIM): 6 (Pt required FWW.) Scootin Rollin Roll Left to Right (QC): 4 Supine to/from Sit: 6 Sit to/from Stand: 6 Sit to Lying (QC): 5 Sit to Stand (QC): 5 Chair/Mhk-bc-Mburh Xfer(QC): 4 Bed to/from Chair: 6 Car Transfer (QC): 3 (assist to get both legs in and out of the car ; assist to stand up) Gait Training Does the Patient Walk?: Yes Gait (FIM): 5 Distance (FIM): 3=150 ft (165 x 2, 50) Distance: 150' Walk 10 feet (QC): 5 Walk 50 ft with 2 Turns(QC): 5 Walk 150 ft (QC): 5 Walking 10ft/uneven surface-QC: 4 Gait Level of Assist: 5 Gait Persons Needed: 1 Gait Assistive Device: FWW Wheelchair Training Does the Pt Use a Wheelchair?: No Stair Training Stair Training: Handrails/: 2 handrails Stairs (FIM): 5 #of Steps: 4 1 Step (curb) (QC): 5 4 Steps (QC): 5 Stairs: Pattern: Step to Level of Assist: 5 Balance Picking up an Object (QC): 88 (unsafe to attempt) Mental Status/Objective Comprehension: 7 Expression: 7 Social Interaction: 7 Problem Solvin Memory: 6 ADL-Treatment Groomin (Pt able to brush hair and teeth self. Pt supported self with counter.) Oral Hygiene (QC): 6 Bathin (Pt required shower bench and hand held shower head. Pt able to wash, rinse, and dry self. ) Bathing Location: L Arm, R Arm, L Upper Leg, R Upper Leg, L Lower Leg (including foot), R Lower Leg (including foot), Chest, Abdomen, Buttocks, Perineal Area Shower/Bathe Self (QC): 6 Upper Extremity Dressin (Pt able to retrieve clothes with FWW. Pt able to don/doff clothing properly. ) Upper Body Dressing (QC): 6 Lower Extremity Dressin (Pt able to retrieve clothes using FWW. Pt able to don/doff underwear, pants, and socks self. ) Lower Body Dressing (QC): 6 On/Off Footwear (QC): 5 Toiletin (Pt required FWW and grabbar. Pt able to cleanse self after voiding. Pt able to manage clothes properly before and after voiding. ) Toileting Hygiene (QC): 6 Toilet/Commode Transfer: 5 (Pt required FWW and grabbar, supervision. ) Toilet Transfer (QC): 4 Shower: 6 (Pt required FWW, grabbar, and shower bench. ) Assessment/Plan Assessment and Plan Assess & Plan/Chief Complaint Assessment: Status post left total knee replacement uncomplicated Slow recovery COPD Current smoker Coarse breath sounds order nebulizers much improved Paroxysmal atrial fibrillation Long-term oral anticoagulation Postop constipation now resolved Hypertension LFT elevation Insomnia Plan: BM regimen to continue Maintain inpatient rehab protocol Monitor pain and continue pain medication Progressing nicely PCP to help with insomnia is appreciated Likely DC early this week (1) Status post left knee replacement Status: Acute (2) COPD (chronic obstructive pulmonary disease) Status: Chronic Qualifiers: COPD type: unspecified COPD Qualified Codes: J44.9 - Chronic obstructive pulmonary disease, unspecified (3) Constipation Status: Acute Qualifiers: Constipation type: drug induced constipation Qualified Codes: K59.03 - Drug induced constipation (4) Hypertension Status: Chronic Qualifiers: Hypertension type: essential hypertension Qualified Codes: I10 - Essential (primary) hypertension (5) CAD (coronary artery disease) Status: Chronic Qualifiers: Coronary Disease-Associated Artery/Lesion type: [place] artery [place] vs. transplanted heart: [place] heart Associated angina: without angina Qualified Codes: I25.10 - Atherosclerotic heart disease of [place] coronary artery without angina pectoris (6) Paroxysmal atrial fibrillation (7) Debility Status: Acute (8) Anticoagulant long-term use Status: Chronic (9) Smoker Status: Chronic (10) Elevated liver enzymes Status: Acute (11) Insomnia Status: Acute Qualifiers: Insomnia type: primary Qualified Codes: F51.01 - Primary insomnia DANIEL THOMPSON DO Mar 26, 2019 11:59
[2019-03-26 17:23] VITALS: BP 134/75
--- NOTE | 2019-03-26 19:10 | NUR ---
bedside report received from KWAN ESQUIVEL, assume care of pt
[2019-03-26 21:10] VITALS: BP 134/61
[2019-03-26] MEDS: MELATONIN 3 MG TABLET PO PRN (21:13)
--- NOTE | 2019-03-26 21:13 | NUR ---
c/o pain level 01/09, Lortab 10 1 tab po given, refused Colace, miralax & Senokot
--- NOTE | 2019-03-26 21:16 | NUR ---
assessments & interventions completed, see assessments & interventions
--- NOTE | 2019-03-26 21:45 | NUR ---
rates pain at 2/10 on numeric scale
[2019-03-27 05:18] VITALS: BP 142/78
[2019-03-27 05:27] LABS: BASOPHILS % (AUTO) 1 % (0-10); EOSINOPHILS # (AUTO) 0.2 10^3/uL (0.0-0.3); EOSINOPHILS % (AUTO) 3 % (0-10); HEMATOCRIT 33 % (35-52); HEMOGLOBIN 10.5 G/DL (11.5-16.0); LYMPHOCYTES # (AUTO) 1.7 X 10^3 (1.0-4.0); LYMPHOCYTES % (AUTO) 30 % (12-44); MEAN CORPUSCULAR HEMOGLOBIN 32 PG (25-34); MEAN CORPUSCULAR HGB CONC 32 G/DL (32-36); MEAN CORPUSCULAR VOLUME 99 FL (80-99); MEAN PLATELET VOLUME 9.2 FL (7.4-10.4); MONOCYTES # (AUTO) 0.4 X 10^3 (0.0-1.0); MONOCYTES % (AUTO) 8 % (0-12); NEUTROPHILS # (AUTO) 3.3 X 10^3 (1.8-7.8); NEUTROPHILS % (AUTO) 59 % (42-75); PLATELET COUNT 476 10^3/uL (130-400); RED CELL DISTRIBUTION WIDTH 13.2 % (10.0-14.5); WHITE BLOOD COUNT 5.6 10^3/uL (4.3-11.0)
[2019-03-27 05:46] LABS: ALANINE AMINOTRANSFERASE 45 U/L (0-55); ALBUMIN 3.1 GM/DL (3.2-4.5); ALKALINE PHOSPHATASE 63 U/L (40-136); BILIRUBIN,TOTAL 0.3 MG/DL (0.1-1.0); BUN/CREATININE RATIO 26; CARBON DIOXIDE 24 MMOL/L (21-32); CHLORIDE 108 MMOL/L (98-107); CREATININE SERUM 0.74 MG/DL (0.60-1.30); GFR ESTIMATED > 60; GLUCOSE 148 MG/DL (70-105); POTASSIUM 3.8 MMOL/L (3.6-5.0); SODIUM 142 MMOL/L (135-145); TOTAL PROTEIN 5.2 GM/DL (6.4-8.2)
[2019-03-27] MEDS: HYDROcodone/APAP 10 MG/325 MG (LORTAB) TAB PO PRN ×3 (06:36→20:28)
--- NOTE | 2019-03-27 06:36 | NUR ---
c/o pain level 6/10 on numeric scale, Lortab 10 1 tab po given
--- NOTE | 2019-03-27 07:11 | NUR ---
bedside report given to KWAN ESQUIVEL
--- NOTE | 2019-03-27 08:02 | PM&R Progress Note ---
Subjective HPI/CC On Admission Date Seen by Provider: Mar 27, 2019 Time Seen by Provider: 08:00 Chief Complaint: Debility following left total knee replacement HPI: This is a 74yoWF pt of Dr. Gonzalez who presents to the in patient rehab unit following slow recovery from a left total knee replacement uncomplicated by Dr. Anderson. Her PCP is Dr. Gonzalez her Coroner Forensic Technician is Dr. Combs. At this current time pt has not had a BM since before surgery so well need to work on that she feels pretty drained after walking with PT today and overall has had no other events during her hospital stay. 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 At this current time pt is deemed stable for transfer by her family to in patient rehab at [facility] and had an uneventful transport to [place]. Note per Satnam Hurtado [facility]: Ms. Arriaga is a 74 y/o female with a PMH of COPD, HTN, CAD, and hyperlipidemia who presents to the rehab unit s/p L TKA performed by Dr. Anderson on 03/14. She had a long history of L knee pain. She described the pain as a persistent popping and grinding. A diagnosis of severe Osteoarthritis was made by Dr. Anderson with a decision to move forward with a Left Total Knee replacement. Her post-op course has been uneventful. She classifies her current pain level as a 6/10 while working with OT. She lives alone in a single story home without internal stairs. There are a total of 3 steps needed to traverse in order to enter the home. 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 Subjective/Events-last exam Disposition probably Wednesday BMs are good Labs are good, liver enzymes improved Participating in all therapy Pain is well controlled Check meds and labs Conferred with RN Reviewed therapy notes Review of Systems General: Fatigue Musculoskeletal: leg pain Objective Exam Vital Signs Vital Signs Date Time Temp Pulse Resp B/P (MAP) Pulse Ox O2 Delivery O2 Flow Rate FiO2 03/27/19 18:00 98.7 82 18 145/89 (107) 98 Room Air Capillary Refill : General Appearance: No Apparent Distress, WD/WN, Chronically ill HEENT: PERRL/EOMI, TMs Normal, Normal ENT Inspection, Pharynx Normal Respiratory: Chest Non Tender, Lungs Clear, No Accessory Muscle Use, No Respiratory Distress, Decreased Breath Sounds Cardiovascular: Regular Rate, Rhythm, No Edema, No Gallop, No JVD, No Murmur, Normal Peripheral Pulses Gastrointestinal: Normal Bowel Sounds, No Organomegaly, No Pulsatile Mass, Non Tender, Soft Rectal: Deferred Back: Normal Inspection, No CVA Tenderness, No Vertebral Tenderness Extremity: Normal Capillary Refill, Normal Inspection, Normal Range of Motion (limited ROM legs), Non Tender, No Calf Tenderness Neurologic/Psychiatric: Alert, Oriented x3, No Motor/Sensory Deficits, Normal M ood/Affect, supervisor train operations II-XII Norm as Tested Skin: Normal Color, Warm/Dry Lymphatic: No Adenopathy Results/Procedures Lab Laboratory Tests 03/27/19 04:30 Patient resulted labs reviewed. FIM Transfers Therapy Code Descriptions/Definitions Functional [place] Measure: 0=Not Assessed/NA 4=Minimal Assistance 1=Total Assistance 5=Supervision or Setup 2=Maximal Assistance 6=Modified [place] 3=Moderate Assistance 7=Complete [place] Therapy Quality Codes: 6 Independent with activity with or without an assistive device 5 Patient requires set up or clean up by helper. Patient completes activity by themselves 4 Supervision or touching assist (CGA). [place] provide cues , steadying assist 3 The helper provides less than half the effort to complete the activity 2 The helper provides more than half the effort to complete the activity 1 Dependent. The helper does all the effort to complete an activity 7 Patient refused to complete or attempt activity 9 The patient did not perform the activity before the current illness or injury 88 Not attempted due to Medical conditions or safety concerns Transfers (B, C, W/C) (FIM): 6 (Pt required FWW.) Scootin Rollin Roll Left to Right (QC): 4 Supine to/from Sit: 6 Sit to/from Stand: 6 Sit to Lying (QC): 5 Sit to Stand (QC): 5 Chair/Ysx-zi-Xwewp Xfer(QC): 4 Bed to/from Chair: 6 Car Transfer (QC): 3 (assist to get both legs in and out of the car ; assist to stand up) Gait Training Does the Patient Walk?: Yes Gait (FIM): 5 Distance (FIM): 3=150 ft (165 x 2, 50) Distance: 150' Walk 10 feet (QC): 5 Walk 50 ft with 2 Turns(QC): 5 Walk 150 ft (QC): 5 Walking 10ft/uneven surface-QC: 4 Gait Level of Assist: 5 Gait Persons Needed: 1 Gait Assistive Device: FWW Wheelchair Training Does the Pt Use a Wheelchair?: No Stair Training Stair Training: Handrails/: 2 handrails Stairs (FIM): 5 #of Steps: 4 1 Step (curb) (QC): 5 4 Steps (QC): 5 Stairs: Pattern: Step to Level of Assist: 5 Balance Picking up an Object (QC): 88 (unsafe to attempt) Mental Status/Objective Comprehension: 7 Expression: 7 Social Interaction: 7 Problem Solvin Memory: 6 ADL-Treatment Groomin (Pt able to brush hair and teeth self. Pt supported self with counter.) Oral Hygiene (QC): 6 Bathin (Pt required shower bench and hand held shower head. Pt able to wash, rinse, and dry self. ) Bathing Location: L Arm, R Arm, L Upper Leg, R Upper Leg, L Lower Leg (including foot), R Lower Leg (including foot), Chest, Abdomen, Buttocks, Perineal Area Shower/Bathe Self (QC): 6 Upper Extremity Dressin (Pt able to retrieve clothes with FWW. Pt able to don/doff clothing properly. ) Upper Body Dressing (QC): 6 Lower Extremity Dressin (Pt able to retrieve clothes using FWW. Pt able to don/doff underwear, pants, and socks self. ) Lower Body Dressing (QC): 6 On/Off Footwear (QC): 5 Toiletin (Pt required FWW and grabbar. Pt able to cleanse self after voiding. Pt able to manage clothes properly before and after voiding. ) Toileting Hygiene (QC): 6 Toilet/Commode Transfer: 5 (Pt required FWW and grabbar, supervision. ) Toilet Transfer (QC): 4 Shower: 6 (Pt required FWW, grabbar, and shower bench. ) Assessment/Plan Assessment and Plan Assess & Plan/Chief Complaint Assessment: Status post left total knee replacement uncomplicated Slow recovery COPD Current smoker Coarse breath sounds order nebulizers much improved Paroxysmal atrial fibrillation Long-term oral anticoagulation Postop constipation now resolved Hypertension LFT elevation Insomnia Plan: BM regimen to continue Maintain inpatient rehab protocol Monitor pain and continue pain medication Progressing nicely PCP to help with insomnia is appreciated Likely DC early this week (1) Status post left knee replacement Status: Acute (2) COPD (chronic obstructive pulmonary disease) Status: Chronic Qualifiers: COPD type: unspecified COPD Qualified Codes: J44.9 - Chronic obstructive pulmonary disease, unspecified (3) Constipation Status: Acute Qualifiers: Constipation type: drug induced constipation Qualified Codes: K59.03 - Drug induced constipation (4) Hypertension Status: Chronic Qualifiers: Hypertension type: essential hypertension Qualified Codes: I10 - Essential (primary) hypertension (5) CAD (coronary artery disease) Status: Chronic Qualifiers: Coronary Disease-Associated Artery/Lesion type: [place] artery [place] vs. transplanted heart: [place] heart Associated angina: without angina Qualified Codes: I25.10 - Atherosclerotic heart disease of [place] coronary artery without angina pectoris (6) Paroxysmal atrial fibrillation (7) Debility Status: Acute (8) Anticoagulant long-term use Status: Chronic (9) Smoker Status: Chronic (10) Elevated liver enzymes Status: Acute (11) Insomnia Status: Acute Qualifiers: Insomnia type: primary Qualified Codes: F51.01 - Primary insomnia DANIEL THOMPSON DO Mar 27, 2019 08:02
[2019-03-27] MEDS: POLYETHYLENE GLYCOL 17 GM (MIRALAX) PACK PO SCH ×2 (08:16→20:30)
[2019-03-27] MEDS: SENNA W/DOCUSATE (SENOKOT S) TABLET PO SCH ×2 (08:16→20:30)
[2019-03-27] MEDS: CALCIUM CARB + VIT D 600 MG (CALCARB + D) TAB PO SCH (09:37)
[2019-03-27] MEDS: PANTOPRAZOLE 40 MG (PROTONIX) TAB PO SCH (09:37)
[2019-03-27] MEDS: VITAMIN D3 1,000 UNITS (CHOLECALCIFEROL) TABLET PO SCH (09:37)
[2019-03-27] MEDS: amLODIPine 10 MG (NORVASC) TAB PO SCH (09:37)
[2019-03-27] MEDS: MULTIVIT W/MINERALS TAB (THERAGRAN M) PO SCH (09:37)
[2019-03-27] MEDS: LACTOBACILLUS ACIDOPHILUS (PROBIOTIC) CAPSULE PO SCH (09:37)
[2019-03-27] MEDS: meTOprolol TARTRATE 50 MG (LOPRESSOR) TAB PO SCH ×2 (09:37→20:28)
[2019-03-27] MEDS: VALSARTAN 160 MG (DIOVAN) TABLET PO SCH (09:38)
[2019-03-27] MEDS: APIXABAN 5 MG (ELIQUIS) TABLET PO SCH ×2 (09:38→20:28)
[2019-03-27] MEDS: ASPIRIN 81 MG CHEW (CHILDREN'S ASA) PO SCH (09:38)
[2019-03-27] MEDS: DOCUSATE SODIUM 100 MG (COLACE) CAP PO SCH ×2 (09:38→20:30)
--- NOTE | 2019-03-27 10:00 | NUR ---
MELTER HELPER delivered toilet safety rails and tub/shower transfer bench to patients room. These were purchased by the patient from [facility]'s [employer] account. MELTER HELPER inquired about day pass from this weekend. Patient states it went well, but the pain continued to be an issue. Per nursing documentation, pain has been rated at a 6 often. Patient is scheduled to have frederic removed on Wednesday. MELTER HELPER has proposed that patient discharge home on Wednesday, Dr. Crow is in agreement with this. Addendum: 03/27/19 at 1704 by SUSSY MERINO SS MELTER HELPER reviewed IM in and provided patient with home health provider list. Patient expresses no concerns regarding discharge plans on Wednesday and provided signature on IMM and patient choice letter for [facility] [employer]. MELTER HELPER notified Antonia at [facility] of referral. Dami VAZQUEZ states home walker is not functional. MELTER HELPER requested Dr. Crow to place order for new walker. MELTER HELPER sent order to [facility] for delivery tomorrow, to patient's room.
--- NOTE | 2019-03-27 10:01 | Occupational Ther Daily Note ---
OT Current Status-Daily Note Subjective Pt alert, sitting in recliner. Pt agrees to therapy. No c/o pain at this time. Mental Status/Objective Patient Orientation: Person, Place, Time, Situation Therapy Code Descriptions/Definitions Functional [place] Measure: 0=Not Assessed/NA 4=Minimal Assistance 1=Total Assistance 5=Supervision or Setup 2=Maximal Assistance 6=Modified [place] 3=Moderate Assistance 7=Complete [place] ADL-Treatment Pt transported clothing in to bathroom. Pt able to transfer onto/off of toilet by self using FWW and grabbars. Toileting with grabbars and FWW. Using sink for balance, pt able to complete sponge bath standing at sink. Pt donned/doff lower body clothing using FWW by self. Pt then ambulated to laundry to wash clothing. After therapy, pt sitting in recliner with call light/phone in reach. All needs met in room. Therapy Code Descriptions/Definitions Functional [place] Measure: 0=Not Assessed/NA 4=Minimal Assistance 1=Total Assistance 5=Supervision or Setup 2=Maximal Assistance 6=Modified [place] 3=Moderate Assistance 7=Complete [place] Therapy Quality Codes: 6 Independent with activity with or without an assistive device 5 Patient requires set up or clean up by helper. Patient completes activity by themselves 4 Supervision or touching assist (CGA). [place] provide cues , steadying assist 3 The helper provides less than half the effort to complete the activity 2 The helper provides more than half the effort to complete the activity 1 Dependent. The helper does all the effort to complete an activity 7 Patient refused to complete or attempt activity 9 The patient did not perform the activity before the current illness or injury 88 Not attempted due to Medical conditions or safety concerns Grooming (FIM): 7 Oral Hygiene (QC): 6 Lower Body Dressing (FIM): 6 Lower Body Dressing (QC): 6 On/Off Footwear (QC): 6 Toileting (FIM): 6 Toileting Hygiene (QC): 6 Transfers (B, C, W/C) (FIM): 6 Toilet/Commode Transfer (FIM): 6 Toilet Transfer (QC): 6 OT Short Term Goals Short Term Goals Time Frame: Mar 23, 2019 Eating(FIM): 5 Grooming(FIM): 5 Bathing(FIM): 5 Upper Body Dressing(FIM): 5 Lower Body Dressing(FIM): 5 Toileting(FIM): 5 Transfers (B,C,W/C) (FIM): 5 (met) Toilet/Commode Transfer(FIM): 5 Shower Transfer(FIM): 5 Additional Short Term Goals: 1-Demonstrate ADL Tasks, 2-Verbalize Understanding, 3-ImproveStrength/Serena 1=Demonstrate adherence to instructed precautions during ADL tasks. 2=Patient will verbalize/demonstrate understanding of assistive devices/modifications for ADL. 3=Patient will improve strength/tolerance for activity to enable patient to p erform ADL's. OT Health Careers Instructor Goals Penitentiary Goals Time Frame: Mar 30, 2019 Eating (FIM): 6 Eating (QC): 6 Groomin Oral Hygiene (QC): 6 Bathing(FIM): 6 Shower/Bathe Self (QC): 6 Upper Body Dressing(FIM): 6 Upper Body Dressing (QC): 6 Lower Body Dressing(FIM): 6 Lower Body Dressing (QC): 6 On/Off Footwear (QC): 6 Toileting(FIM): 6 Toileting Hygiene (QC): 6 Transfers (B,C,W/C) (FIM): 6 Toilet/Commode Transfer(FIM): 6 Toilet/Commode Transfer (QC): 6 Shower Transfer(FIM): 5 Additional Goals: 1-Demonstrate ADL Tasks, 2-Verbalize Understanding, 3- ImproveStrength/Serena 1=Demonstrate adherence to instructed precautions during ADL tasks. 2=Patient will verbalize/demonstrate understanding of assistive devices /modifications for ADL. 3=Patient will improve strength/tolerance for activity to enable patient to perform ADL's. OT Education/Plan Problem List/Assessment Assessment: Impaired I ADL's, Impaired Self-Care Skills Discharge Recommendations Plan/Recommendations: Continue POC Treatment Plan/Plan of Care Patient would benefit from OT for education, treatment and training to promote independence in ADL's, mobility, safety and/or upper extremity function for ADL's. Plan of Care: ADL Retraining, Functional Mobility, Group Exercise/Act as Ind, UE Funct Exercise/Act Treatment Duration: Mar 30, 2019 Frequency: At least 5 of 7 days/Wk (IRF) Estimated Hrs Per Day: 1.5 hours per day Agreement: Yes Rehab Potential: Good Time/GCodes Start Time: 09:15 Stop Time: 10:00 Total Time Billed (hr/min): 45 Billed Treatment Time 1 visit-ADL 2 (30 min) FA 1 (15 min) REYES RODRIGUEZ Mar 27, 2019 10:01
--- NOTE | 2019-03-27 12:00 | Physical Therapy Daily Note ---
PT Daily Note-Current Subjective Pt. agrees to Rx, feels she has made significant progress Pain Numeric Pain Scale: 4 Location: Left Location Body Site: Knee Pain Description: Ache Mental Status Patient Orientation: Normal For Age Transfers Therapy Code Descriptions/Definitions Functional [place] Measure: 0=Not Assessed/NA 4=Minimal Assistance 1=Total Assistance 5=Supervision or Setup 2=Maximal Assistance 6=Modified [place] 3=Moderate Assistance 7=Complete [place] Therapy Quality Codes: 6 Independent with activity with or without an assistive device 5 Patient requires set up or clean up by helper. Patient completes activity by themselves 4 Supervision or touching assist (CGA). [place] provide cues , steadying assist 3 The helper provides less than half the effort to complete the activity 2 The helper provides more than half the effort to complete the activity 1 Dependent. The helper does all the effort to complete an activity 7 Patient refused to complete or attempt activity 9 The patient did not perform the activity before the current illness or injury 88 Not attempted due to Medical conditions or safety concerns Transfers (B, C, W/C) (FIM): 6 Scootin Rollin Supine to/from Sit: 6 Sit to/from Stand: 6 Bed to/from Chair: 6 Car Transfer (QC): 6 up ad aldair Weight Bearing Right Lower Extremity: Right Full Weight Bearing Left Lower Extremity: Left Weight Bearing/Tolerated Gait Training Does the Patient Walk?: Yes Gait (FIM): 6 Distance (FIM): 3=150 ft (200x2) Gait Level of Assist: 6 Gait Persons Needed: 0 Gait Assistive Device: FWW no LOB, antalgia still noted, knee ext still lack approx 10 deg Stair Training Stair Training: Handrails/: 2 handrails Stairs (FIM): 5 #of Steps: 4 Stairs: Pattern: Step to Level of Assist: 5 household assist Exercises Supine Ex: Ankle pumps, Quad Set, Glut sets, Heel Slides, Short Arc Quads, Scooting, Straight leg raise, Hip abd/add Supine Reps: 15 Seated Therapy Exercises: Ankle pumps, Sit to stand, Long arc quads, Hip flexion Seated Reps: 15 Assessment Current Status: Good Progress meets goals PT Short Term Goals Short Term Goals Time Frame: Mar 23, 2019 Transfers (B,C,W/C) (FIM): 5 (met) Gait (FIM): 5 (met) PT Clarifying Plant Operator Goals Clarifying Plant Operator Goals PT Clarifying Plant Operator Goals Time Frame: Mar 30, 2019 Transfers (B,C,W/C) (FIM): 7 Sit to Lying (QC): 6 Lying-Sitting on Side/Bed(QC): 6 Sit to Stand (QC): 6 Rollin Roll Left to Right (QC): 6 Chair/Tns-ft-Rdnme Xfer(QC): 6 Car Transfer (QC): 6 Does the Patient Walk: Yes Gait (FIM): 6 Gait distance (FIM): 3=150 ft Distance: 300 ft Walk 10 feet (QC): 6 Walk 10ft-Uneven Surface(QC): 6 Walk 50ft with 2 Turns (QC): 6 Walk 150 ft (QC): 6 Gait Assistive Device: FWW Does the Pt use WC or Scooter?: No Stairs (FIM): 5 # of Steps: 4 1 Step (curb) (QC): 6 4 Steps (QC): 6 12 Steps (QC): 10 Picking up an Object (QC): 4 PT Plan Treatment/Plan Treatment Plan: Continue Plan of Care Treatment Plan: Bed Mobility, Education, Functional Activity Serena, Functional Strength, Group Therapy, Gait, Safety, Therapeutic Exercise, Transfers Treatment Duration: Mar 30, 2019 Frequency: At least 5 of 7 days/Wk (IRF) Estimated Hrs Per Day: 1.5 hours per day Patient and/or Family Agrees t: Yes Safety Risks/Education Patient Education: Gait Training, Transfer Techniques, Steps, Correct Positioning, Disease Process, Safety Issues Teaching Recipient: Patient Teaching Methods: Demonstration, Discussion Response to Teaching: Verbalize Understanding, Return Demonstration, Reinforcement Needed Time/GCodes Time In: 1100 Time Out: 1200 Total Billed Treatment Time: 60 Total Billed Treatment 1,Ex35m,GT15m,FA10m LARA FREEMAN CYBER INTEL PLANNER Mar 27, 2019 12:00
--- NOTE | 2019-03-27 13:08 | Occupational Ther Daily Note ---
OT Current Status-Daily Note Subjective Pt alert, sitting in recliner. Pt agrees to therapy. No c/o pain. Mental Status/Objective Patient Orientation: Person, Place, Time, Situation Therapy Code Descriptions/Definitions Functional [place] Measure: 0=Not Assessed/NA 4=Minimal Assistance 1=Total Assistance 5=Supervision or Setup 2=Maximal Assistance 6=Modified [place] 3=Moderate Assistance 7=Complete [place] ADL-Treatment Therapy Code Descriptions/Definitions Functional [place] Measure: 0=Not Assessed/NA 4=Minimal Assistance 1=Total Assistance 5=Supervision or Setup 2=Maximal Assistance 6=Modified [place] 3=Moderate Assistance 7=Complete [place] Therapy Quality Codes: 6 Independent with activity with or without an assistive device 5 Patient requires set up or clean up by helper. Patient completes activity by themselves 4 Supervision or touching assist (CGA). [place] provide cues , steadying assist 3 The helper provides less than half the effort to complete the activity 2 The helper provides more than half the effort to complete the activity 1 Dependent. The helper does all the effort to complete an activity 7 Patient refused to complete or attempt activity 9 The patient did not perform the activity before the current illness or injury 88 Not attempted due to Medical conditions or safety concerns Other Treatment Pt ambulated to laundry room to retrieve clothing from dryer. Pt able to use dryer to stabilize self while reaching into dryer to retrieve clothing then fold clothing. Pt ambulated back to room and placed clothing in closet. Pt ambulated to therapy gym using FWW. Pt participated in arm bike exercise duration 15 min 20 watt resistance to increase upperbody strength for activity tasks. Pt participated in L/R UE exercise using 2lb dumb bells 3 reps 10x to increase strength for functional activity task. Pt ambulated back to room and sat in recliner after therapy. Call light/phone in reach. All needs met in room. OT Short Term Goals Short Term Goals Time Frame: Mar 23, 2019 Eating(FIM): 5 Grooming(FIM): 5 Bathing(FIM): 5 Upper Body Dressing(FIM): 5 Lower Body Dressing(FIM): 5 Toileting(FIM): 5 Transfers (B,C,W/C) (FIM): 5 (met) Toilet/Commode Transfer(FIM): 5 Shower Transfer(FIM): 5 Additional Short Term Goals: 1-Demonstrate ADL Tasks, 2-Verbalize Understanding, 3-ImproveStrength/Serena 1=Demonstrate adherence to instructed precautions during ADL tasks. 2=Patient will verbalize/demonstrate understanding of assistive devices/modifications for ADL. 3=Patient will improve strength/tolerance for activity to enable patient to p erform ADL's. OT Supervisor Rose Grading Goals Supervisor Rose Grading Goals Time Frame: Mar 30, 2019 Eating (FIM): 6 Eating (QC): 6 Groomin Oral Hygiene (QC): 6 Bathing(FIM): 6 Shower/Bathe Self (QC): 6 Upper Body Dressing(FIM): 6 Upper Body Dressing (QC): 6 Lower Body Dressing(FIM): 6 Lower Body Dressing (QC): 6 On/Off Footwear (QC): 6 Toileting(FIM): 6 Toileting Hygiene (QC): 6 Transfers (B,C,W/C) (FIM): 6 Toilet/Commode Transfer(FIM): 6 Toilet/Commode Transfer (QC): 6 Shower Transfer(FIM): 5 Additional Goals: 1-Demonstrate ADL Tasks, 2-Verbalize Understanding, 3- ImproveStrength/Serena 1=Demonstrate adherence to instructed precautions during ADL tasks. 2=Patient will verbalize/demonstrate understanding of assistive devices /modifications for ADL. 3=Patient will improve strength/tolerance for activity to enable patient to perform ADL's. OT Education/Plan Problem List/Assessment Assessment: Impaired Self-Care Skills Discharge Recommendations Plan/Recommendations: Follow-up Planned Treatment Plan/Plan of Care Patient would benefit from OT for education, treatment and training to promote independence in ADL's, mobility, safety and/or upper extremity function for ADL's. Plan of Care: ADL Retraining, Functional Mobility, Group Exercise/Act as Ind, UE Funct Exercise/Act Treatment Duration: Mar 30, 2019 Frequency: At least 5 of 7 days/Wk (IRF) Estimated Hrs Per Day: 1.5 hours per day Agreement: Yes Rehab Potential: Good Time/GCodes Start Time: 12:45 Stop Time: 13:30 Total Time Billed (hr/min): 45 Billed Treatment Time 1 visit FA (15 min) EX 2 (30 min) REYES RODRIGUEZ Mar 27, 2019 13:08
--- NOTE | 2019-03-27 14:02 | Physical Therapy Daily Note ---
PT Daily Note-Current Subjective Pt. agrees to Rx. Feels she has made good progress, less pain and greater functional mobility Pain Location: No Pain Reported Mental Status Patient Orientation: Normal For Age Transfers Therapy Code Descriptions/Definitions Functional [place] Measure: 0=Not Assessed/NA 4=Minimal Assistance 1=Total Assistance 5=Supervision or Setup 2=Maximal Assistance 6=Modified [place] 3=Moderate Assistance 7=Complete [place] Therapy Quality Codes: 6 Independent with activity with or without an assistive device 5 Patient requires set up or clean up by helper. Patient completes activity by themselves 4 Supervision or touching assist (CGA). [place] provide cues , steadying assist 3 The helper provides less than half the effort to complete the activity 2 The helper provides more than half the effort to complete the activity 1 Dependent. The helper does all the effort to complete an activity 7 Patient refused to complete or attempt activity 9 The patient did not perform the activity before the current illness or injury 88 Not attempted due to Medical conditions or safety concerns all TRFs mod I Weight Bearing Right Lower Extremity: Right Full Weight Bearing Left Lower Extremity: Left Weight Bearing/Tolerated Gait Training Does the Patient Walk?: Yes Gait Assistive Device: FWW [id number] Mod I observed safe with better knee ext and heel strike Exercises Seated Therapy Exercises: Ankle pumps, Sit to stand, Long arc quads, Hip abd/add Seated Reps: 15 NuStep Minutes: 15 NuStep Workload: 5 Treatments increasing knee flexion at every 4 min interval on Nustep followed by leg presses on Nustep for increased knee flexion and extension Assessment Current Status: Good Progress good progress noted in all areas PT Short Term Goals Short Term Goals Time Frame: Mar 23, 2019 Transfers (B,C,W/C) (FIM): 5 (met) Gait (FIM): 5 (met) PT Warehouse Laborer Goals Warehouse Laborer Goals PT Warehouse Laborer Goals Time Frame: Mar 30, 2019 Transfers (B,C,W/C) (FIM): 7 Sit to Lying (QC): 6 Lying-Sitting on Side/Bed(QC): 6 Sit to Stand (QC): 6 Rollin Roll Left to Right (QC): 6 Chair/Ypp-lr-Kpfpl Xfer(QC): 6 Car Transfer (QC): 6 Does the Patient Walk: Yes Gait (FIM): 6 Gait distance (FIM): 3=150 ft Distance: 300 ft Walk 10 feet (QC): 6 Walk 10ft-Uneven Surface(QC): 6 Walk 50ft with 2 Turns (QC): 6 Walk 150 ft (QC): 6 Gait Assistive Device: FWW Does the Pt use WC or Scooter?: No Stairs (FIM): 5 # of Steps: 4 1 Step (curb) (QC): 6 4 Steps (QC): 6 12 Steps (QC): 10 Picking up an Object (QC): 4 PT Plan Treatment/Plan Treatment Plan: Continue Plan of Care Treatment Plan: Bed Mobility, Education, Functional Activity Serena, Functional Strength, Group Therapy, Gait, Safety, Therapeutic Exercise, Transfers Treatment Duration: Mar 30, 2019 Frequency: At least 5 of 7 days/Wk (IRF) Estimated Hrs Per Day: 1.5 hours per day Patient and/or Family Agrees t: Yes Safety Risks/Education Patient Education: Gait Training, Transfer Techniques, Correct Positioning, Disease Process, Safety Issues Teaching Recipient: Patient Teaching Methods: Demonstration, Discussion Response to Teaching: Verbalize Understanding, Return Demonstration, Reinforcement Needed Time/GCodes Time In: 1330 Time Out: 1400 Total Billed Treatment Time: 30 Total Billed Treatment 1,GT15m,EX15m LARA FREEMAN TORNADO CHASER Mar 27, 2019 14:02
[2019-03-27 18:00] VITALS: BP 145/89
--- NOTE | 2019-03-27 19:13 | NUR ---
bedside report received from KWAN ESQUIVEL, assume care of pt
[2019-03-27 20:25] VITALS: BP 133/76
[2019-03-27] MEDS: MELATONIN 3 MG TABLET PO PRN (20:28)
--- NOTE | 2019-03-27 20:28 | NUR ---
c/o pain level 6/10 on numeric scale Lortab 10 1 tab, refused Colace, miralax & Senokot
--- NOTE | 2019-03-27 20:30 | NUR ---
assessments & interventions, see assessments & interventions, up in the chair
--- NOTE | 2019-03-27 21:15 | NUR ---
rates pain level 2/10 on numeric scale
[2019-03-28 05:57] VITALS: BP 145/73
[2019-03-28] MEDS: HYDROcodone/APAP 10 MG/325 MG (LORTAB) TAB PO PRN ×4 (06:15→21:38)
--- NOTE | 2019-03-28 06:15 | NUR ---
c/o pain level 7/10 on numeric scale, Lortab 10 1 tab po given
--- NOTE | 2019-03-28 06:45 | NUR ---
pain level 2/10 on numeric scale
--- NOTE | 2019-03-28 07:19 | NUR ---
bedside report given to MASTER ESQUIVEL
--- NOTE | 2019-03-28 08:41 | PM&R Progress Note ---
Subjective HPI/CC On Admission Date Seen by Provider: Mar 28, 2019 Time Seen by Provider: 08:30 Chief Complaint: Debility following left total knee replacement HPI: This is a 74yoWF pt of Dr. Gonzalez who presents to the in patient rehab unit following slow recovery from a left total knee replacement uncomplicated by Dr. Anderson. Her PCP is Dr. Gonzalez her Survey Compiler is Dr. Combs. At this current time pt has not had a BM since before surgery so well need to work on that she feels pretty drained after walking with PT today and overall has had no other events during her hospital stay. 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 At this current time pt is deemed stable for transfer by her family to in patient rehab at [facility] and had an uneventful transport to [place]. Note per Satnam Hurtado [facility]: Ms. Arriaga is a 74 y/o female with a PMH of COPD, HTN, CAD, and hyperlipidemia who presents to the rehab unit s/p L TKA performed by Dr. Anderson on 03/14. She had a long history of L knee pain. She described the pain as a persistent popping and grinding. A diagnosis of severe Osteoarthritis was made by Dr. Anderson with a decision to move forward with a Left Total Knee replacement. Her post-op course has been uneventful. She classifies her current pain level as a 6/10 while working with OT. She lives alone in a single story home without internal stairs. There are a total of 3 steps needed to traverse in order to enter the home. 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 Subjective/Events-last exam No issues noted. Up ad-aldair in the room. PT is okay with her discharge plan for tomorrow. Bowels are moving, although last one was 03/26. Overall much improved since admission Participating in all therapy Pain is well controlled Check meds and labs Conferred with RN Reviewed therapy notes Review of Systems General: Fatigue Gastrointestinal: Constipation Musculoskeletal: leg pain Objective Exam Vital Signs Vital Signs Date Time Temp Pulse Resp B/P (MAP) Pulse Ox O2 Delivery O2 Flow Rate FiO2 03/28/19 17:49 97.5 73 20 138/76 (96) 97 Room Air Capillary Refill : General Appearance: No Apparent Distress, WD/WN, Chronically ill HEENT: PERRL/EOMI, TMs Normal, Normal ENT Inspection, Pharynx Normal Respiratory: Chest Non Tender, Lungs Clear, No Accessory Muscle Use, No Respiratory Distress, Decreased Breath Sounds Cardiovascular: Regular Rate, Rhythm, No Edema, No Gallop, No JVD, No Murmur, Normal Peripheral Pulses Gastrointestinal: Normal Bowel Sounds, No Organomegaly, No Pulsatile Mass, Non Tender, Soft Rectal: Deferred Back: Normal Inspection, No CVA Tenderness, No Vertebral Tenderness Extremity: Normal Capillary Refill, Normal Inspection, Normal Range of Motion (limited ROM legs), Non Tender, No Calf Tenderness Neurologic/Psychiatric: Alert, Oriented x3, No Motor/Sensory Deficits, Normal Mood/Affect, group leader wafer polishing II-XII Norm as Tested Skin: Normal Color, Warm/Dry Lymphatic: No Adenopathy Results/Procedures Lab Patient resulted labs reviewed. FIM Transfers Therapy Code Descriptions/Definitions Functional [place] Measure: 0=Not Assessed/NA 4=Minimal Assistance 1=Total Assistance 5=Supervision or Setup 2=Maximal Assistance 6=Modified [place] 3=Moderate Assistance 7=Complete [place] Therapy Quality Codes: 6 Independent with activity with or without an assistive device 5 Patient requires set up or clean up by helper. Patient completes activity by themselves 4 Supervision or touching assist (CGA). [place] provide cues , steadying assist 3 The helper provides less than half the effort to complete the activity 2 The helper provides more than half the effort to complete the activity 1 Dependent. The helper does all the effort to complete an activity 7 Patient refused to complete or attempt activity 9 The patient did not perform the activity before the current illness or injury 88 Not attempted due to Medical conditions or safety concerns Transfers (B, C, W/C) (FIM): 6 Scootin Rollin Roll Left to Right (QC): 4 Supine to/from Sit: 6 Sit to/from Stand: 6 Sit to Lying (QC): 5 Sit to Stand (QC): 5 Chair/Fub-xz-Pnsck Xfer(QC): 4 Bed to/from Chair: 6 Car Transfer (QC): 6 Gait Training Does the Patient Walk?: Yes Gait (FIM): 6 Distance (FIM): 3=150 ft (200x2) Distance: 150' Walk 10 feet (QC): 5 Walk 50 ft with 2 Turns(QC): 5 Walk 150 ft (QC): 5 Walking 10ft/uneven surface-QC: 4 Gait Level of Assist: 6 Gait Persons Needed: 0 Gait Assistive Device: FWW Wheelchair Training Does the Pt Use a Wheelchair?: No Stair Training Stair Training: Handrails/: 2 handrails Stairs (FIM): 5 #of Steps: 4 1 Step (curb) (QC): 5 4 Steps (QC): 5 Stairs: Pattern: Step to Level of Assist: 5 Balance Picking up an Object (QC): 88 (unsafe to attempt) Mental Status/Objective Comprehension: 7 Expression: 7 Social Interaction: 7 Problem Solvin Memory: 6 ADL-Treatment Groomin Oral Hygiene (QC): 6 Bathin (Pt required shower bench and hand held shower head. Pt able to wash, rinse, and dry self. ) Bathing Location: L Arm, R Arm, L Upper Leg, R Upper Leg, L Lower Leg (including foot), R Lower Leg (including foot), Chest, Abdomen, Buttocks, Perineal Area Shower/Bathe Self (QC): 6 Upper Extremity Dressin (Pt able to retrieve clothes with FWW. Pt able to don/doff clothing properly. ) Upper Body Dressing (QC): 6 Lower Extremity Dressin Lower Body Dressing (QC): 6 On/Off Footwear (QC): 6 Toiletin Toileting Hygiene (QC): 6 Toilet/Commode Transfer: 6 Toilet Transfer (QC): 6 Shower: 6 (Pt required FWW, grabbar, and shower bench. ) Assessment/Plan Assessment and Plan Assess & Plan/Chief Complaint Assessment: Status post left total knee replacement uncomplicated Slow recovery COPD Current smoker Coarse breath sounds order nebulizers much improved Paroxysmal atrial fibrillation Long-term oral anticoagulation Postop constipation now resolved Hypertension LFT elevation Insomnia Plan: BM regimen to continue Maintain inpatient rehab protocol Monitor pain and continue pain medication Progressing nicely PCP to help with insomnia is appreciated Likely DC tomorrow (1) Status post left knee replacement Status: Acute (2) COPD (chronic obstructive pulmonary disease) Status: Chronic Qualifiers: COPD type: unspecified COPD Qualified Codes: J44.9 - Chronic obstructive pulmonary disease, unspecified (3) Constipation Status: Acute Qualifiers: Constipation type: drug induced constipation Qualified Codes: K59.03 - Drug induced constipation (4) Hypertension Status: Chronic Qualifiers: Hypertension type: essential hypertension Qualified Codes: I10 - Essential (primary) hypertension (5) CAD (coronary artery disease) Status: Chronic Qualifiers: Coronary Disease-Associated Artery/Lesion type: [place] artery [place] vs. transplanted heart: [place] heart Associated angina: without angina Qualified Codes: I25.10 - Atherosclerotic heart disease of [place] coronary artery without angina pectoris (6) Paroxysmal atrial fibrillation (7) Debility Status: Acute (8) Anticoagulant long-term use Status: Chronic (9) Smoker Status: Chronic (10) Elevated liver enzymes Status: Acute (11) Insomnia Status: Acute Qualifiers: Insomnia type: primary Qualified Codes: F51.01 - Primary insomnia DANIEL THOMPSON DO Mar 28, 2019 08:41
--- NOTE | 2019-03-28 08:59 | Physical Therapy Daily Note ---
PT Daily Note-Current Subjective Pt sitting in recliner upon arrival. Pt agrees to PT. Pain Numeric Pain Scale: 7 Location: Incisional, Left Location Body Site: Knee Pain Description: Ache, Tightness Mental Status Patient Orientation: Person, Place, Time, Situation Transfers Therapy Code Descriptions/Definitions Functional [place] Measure: 0=Not Assessed/NA 4=Minimal Assistance 1=Total Assistance 5=Supervision or Setup 2=Maximal Assistance 6=Modified [place] 3=Moderate Assistance 7=Complete [place] Therapy Quality Codes: 6 Independent with activity with or without an assistive device 5 Patient requires set up or clean up by helper. Patient completes activity by themselves 4 Supervision or touching assist (CGA). [place] provide cues , steadying assist 3 The helper provides less than half the effort to complete the activity 2 The helper provides more than half the effort to complete the activity 1 Dependent. The helper does all the effort to complete an activity 7 Patient refused to complete or attempt activity 9 The patient did not perform the activity before the current illness or injury 88 Not attempted due to Medical conditions or safety concerns Transfers (B, C, W/C) (FIM): 6 Scootin Rollin Roll Left to Right (QC): 7 Supine to/from Sit: 7 Sit to/from Stand: 6 Sit to Lying (QC): 6 Sit to Stand (QC): 6 Chair/Isg-xg-Xyvwk Xfer(QC): 6 Bed to/from Chair: 6 Car Transfer (QC): 6 Weight Bearing Right Lower Extremity: Right Full Weight Bearing Left Lower Extremity: Left Weight Bearing/Tolerated Gait Training Does the Patient Walk?: Yes Gait (FIM): 6 Distance (FIM): 3=150 ft Distance: 150' Walk 10 feet (QC): 6 Walk 50 ft with 2 Turns(QC): 6 Walk 150 ft (QC): 6 Walking 10ft/uneven surface-QC: 6 Gait Level of Assist: 6 Gait Persons Needed: 1 Gait Assistive Device: FWW Wheelchair Training Does the Pt Use a Wheelchair?: No Stair Training Stair Training: Handrails/: 2 handrails Stairs (FIM): 6 #of Steps: 12 1 Step (curb) (QC): 6 4 Steps (QC): 6 12 Steps (QC): 6 Stairs: Pattern: Step to Level of Assist: 6 Balance Picking up an Object (QC): 6 Exercises NuStep Minutes: 15 NuStep Workload: 6 Treatments Pt completes FIM scoring items including: bed mobility, transfers including car transfer, ambulation including across varying surface, stairs and picking up object from floor. Pt also uses NuStep for 15m at WL 5 (10m) then WL 6 for last 5m. Pt returns to room at end of tx to rest in recliner with all needs met, call light next to pt. Assessment Current Status: Good Progress Pt tolerates tx well and has improved with both mobility and transfers. PT Short Term Goals Short Term Goals Time Frame: Mar 23, 2019 Transfers (B,C,W/C) (FIM): 5 (met) Gait (FIM): 5 (met) PT Crayon Sawyer Goals Crayon Sawyer Goals PT Crayon Sawyer Goals Time Frame: Mar 30, 2019 Transfers (B,C,W/C) (FIM): 7 Sit to Lying (QC): 6 Lying-Sitting on Side/Bed(QC): 6 Sit to Stand (QC): 6 Rollin Roll Left to Right (QC): 6 Chair/Sft-vc-Adwxx Xfer(QC): 6 Car Transfer (QC): 6 Does the Patient Walk: Yes Gait (FIM): 6 Gait distance (FIM): 3=150 ft Distance: 300 ft Walk 10 feet (QC): 6 Walk 10ft-Uneven Surface(QC): 6 Walk 50ft with 2 Turns (QC): 6 Walk 150 ft (QC): 6 Gait Assistive Device: FWW Does the Pt use WC or Scooter?: No Stairs (FIM): 5 # of Steps: 4 1 Step (curb) (QC): 6 4 Steps (QC): 6 12 Steps (QC): 10 Picking up an Object (QC): 4 PT Plan Problem List Problem List: Activity Tolerance Treatment/Plan Treatment Plan: Continue Plan of Care Treatment Plan: Bed Mobility, Education, Functional Activity Serena, Functional Strength, Group Therapy, Gait, Safety, Therapeutic Exercise, Transfers Treatment Duration: Mar 30, 2019 Frequency: At least 5 of 7 days/Wk (IRF) Estimated Hrs Per Day: 1.5 hours per day Patient and/or Family Agrees t: Yes Safety Risks/Education Patient Education: Gait Training, Steps, Correct Positioning, Safety Issues Teaching Recipient: Patient Teaching Methods: Discussion Response to Teaching: Verbalize Understanding Time/GCodes Time In: 800 Time Out: 900 Total Billed Treatment Time: 60 Total Billed Treatment 1, GT (15m), FA x2 (30m) & EX (15m) MONALISA AMES CONTACT CENTRE SUPERVISOR Mar 28, 2019 08:59
[2019-03-28] MEDS: DOCUSATE SODIUM 100 MG (COLACE) CAP PO SCH ×2 (09:00→21:04)
[2019-03-28] MEDS: POLYETHYLENE GLYCOL 17 GM (MIRALAX) PACK PO SCH ×2 (09:00→21:04)
[2019-03-28] MEDS: SENNA W/DOCUSATE (SENOKOT S) TABLET PO SCH ×2 (09:00→21:04)
[2019-03-28 09:06] VITALS: BP 122/82
[2019-03-28] MEDS: MULTIVIT W/MINERALS TAB (THERAGRAN M) PO SCH (09:07)
[2019-03-28] MEDS: amLODIPine 10 MG (NORVASC) TAB PO SCH (09:07)
[2019-03-28] MEDS: LACTOBACILLUS ACIDOPHILUS (PROBIOTIC) CAPSULE PO SCH (09:07)
[2019-03-28] MEDS: PANTOPRAZOLE 40 MG (PROTONIX) TAB PO SCH (09:07)
[2019-03-28] MEDS: VITAMIN D3 1,000 UNITS (CHOLECALCIFEROL) TABLET PO SCH (09:07)
[2019-03-28] MEDS: meTOprolol TARTRATE 50 MG (LOPRESSOR) TAB PO SCH ×2 (09:07→20:55)
[2019-03-28] MEDS: APIXABAN 5 MG (ELIQUIS) TABLET PO SCH ×2 (09:07→20:55)
[2019-03-28] MEDS: VALSARTAN 160 MG (DIOVAN) TABLET PO SCH (09:08)
[2019-03-28] MEDS: ASPIRIN 81 MG CHEW (CHILDREN'S ASA) PO SCH (09:08)
[2019-03-28] MEDS: CALCIUM CARB + VIT D 600 MG (CALCARB + D) TAB PO SCH (09:09)
--- NOTE | 2019-03-28 10:46 | Occupational Ther Daily Note ---
OT Current Status-Daily Note Subjective Pt alert sitting in chair upon OT arrival. Pt agrees to shower. Mental Status/Objective Patient Orientation: Person, Place, Time, Situation Therapy Code Descriptions/Definitions Functional [place] Measure: 0=Not Assessed/NA 4=Minimal Assistance 1=Total Assistance 5=Supervision or Setup 2=Maximal Assistance 6=Modified [place] 3=Moderate Assistance 7=Complete [place] ADL-Treatment Therapy Code Descriptions/Definitions Functional [place] Measure: 0=Not Assessed/NA 4=Minimal Assistance 1=Total Assistance 5=Supervision or Setup 2=Maximal Assistance 6=Modified [place] 3=Moderate Assistance 7=Complete [place] Therapy Quality Codes: 6 Independent with activity with or without an assistive device 5 Patient requires set up or clean up by helper. Patient completes activity by themselves 4 Supervision or touching assist (CGA). [place] provide cues , steadying assist 3 The helper provides less than half the effort to complete the activity 2 The helper provides more than half the effort to complete the activity 1 Dependent. The helper does all the effort to complete an activity 7 Patient refused to complete or attempt activity 9 The patient did not perform the activity before the current illness or injury 88 Not attempted due to Medical conditions or safety concerns Eating (FIM): 7 (Pt has demonstrated ability to complete own set up and uses regular utensils to eat.) Eating (QC): 6 Grooming (FIM): 7 (Pt stablized self on counter to brush teeth and hair self. ) Oral Hygiene (QC): 6 Bathing (FIM): 6 (Pt requires handheld shower head and shower bench. Pt able to wash, rinse and dry self sitting on shower bench. ) Bathing Location: L Arm, R Arm, L Upper Leg, R Upper Leg, L Lower Leg (including foot), R Lower Leg (including foot), Chest, Abdomen, Buttocks, Perineal Area Shower/Bathe Self (QC): 6 Upper Body (FIM): 6 (Pt obtained clothes from closet using FWW. Pt able to don/doff bra and shirt self.) Upper Body Dressing (QC): 6 Lower Body Dressing (FIM): 6 (Pt obtained clothes from closet using FWW. Pt able to don/doff underwear, pants, and socks self. ) Lower Body Dressing (QC): 6 On/Off Footwear (QC): 6 Toileting (FIM): 6 (Pt has demonstrated ability to complete toileting using grabbar and FWW.) Toileting Hygiene (QC): 6 Transfers (B, C, W/C) (FIM): 6 (Pt required FWW. ) Toilet/Commode Transfer (FIM): 6 (Pt has demonstrated ability to complete transfer using FWW and grabbars.) Toilet Transfer (QC): 6 Tub Transfer(FIM): 6 (Using tub transfer, FWW and grabbars to complete transfer by self.) Shower Transfer(FIM): 6 (Pt required FWW, grab bar, and shower bench. ) Other Treatment Pt ambulated self to therapy gym. Pt used shoulder ROM arc with 1 lb wrist weights to increase ROM to perform functional activity tasks. Pt participated in 3 reps 10x each upper body exercise to increase strength in upper body to perform daily activity tasks. Pt used pincer grasp take clothes pins with different resistance to increase finger strength for functional daily activity tasks. Pt performed arm bike exercise duration 15 min at 25 watt resistance to increase strength and activity tolerance in upper body for functional activity tasks. Pt ambulated back to room. Pt left in chair, call light and phone in reach. Pts needs are met. OT Short Term Goals Short Term Goals Time Frame: Mar 23, 2019 Eating(FIM): 5 Grooming(FIM): 5 Bathing(FIM): 5 Upper Body Dressing(FIM): 5 Lower Body Dressing(FIM): 5 Toileting(FIM): 5 Transfers (B,C,W/C) (FIM): 5 (met) Toilet/Commode Transfer(FIM): 5 Shower Transfer(FIM): 5 Additional Short Term Goals: 1-Demonstrate ADL Tasks, 2-Verbalize Understanding, 3-ImproveStrength/Serena 1=Demonstrate adherence to instructed precautions during ADL tasks. 2=Patient will verbalize/demonstrate understanding of assistive devices/modifications for ADL. 3=Patient will improve strength/tolerance for activity to enable patient to perform ADL's. OT Shelter Goals Shelter Goals Time Frame: Mar 30, 2019 Eating (FIM): 6 (met-03/28/19) Eating (QC): 6 (met-03/28/19) Groomin (met-03/28/19) Oral Hygiene (QC): 6 (met-03/28/19) Bathing(FIM): 6 (-03/28/19) Shower/Bathe Self (QC): 6 (03/28/19) Upper Body Dressing(FIM): 6 (-03/28/19) Upper Body Dressing (QC): 6 (-03/28/19) Lower Body Dressing(FIM): 6 (-03/28/19) Lower Body Dressing (QC): 6 (03/28/19) On/Off Footwear (QC): 6 (03/28/19) Toileting(FIM): 6 (03/28/19) Toileting Hygiene (QC): 6 (03/28/19) Transfers (B,C,W/C) (FIM): 6 (03/28/19) Toilet/Commode Transfer(FIM): 6 (-03/28/19) Toilet/Commode Transfer (QC): 6 (03/28/19) Shower Transfer(FIM): 5 (03/28/19) Additional Goals: 1-Demonstrate ADL Tasks, 2-Verbalize Understanding, 3- ImproveStrength/Serena 1=Demonstrate adherence to instructed precautions during ADL tasks. 2=Patient will verbalize/demonstrate understanding of assistive devices/modifications for ADL. 3=Patient will improve strength/tolerance for activity to enable patient to perform ADL's. OT Education/Plan Problem List/Assessment Assessment: Decreased UE Strength Discharge Recommendations Plan/Recommendations: Continue POC Equpiment Recommendations-D/C: Walker Bag or Basket Treatment Plan/Plan of Care Patient would benefit from OT for education, treatment and training to promote independence in ADL's, mobility, safety and/or upper extremity function for ADL's. Plan of Care: ADL Retraining, Functional Mobility, Group Exercise/Act as Ind, UE Funct Exercise/Act Treatment Duration: Mar 30, 2019 Frequency: At least 5 of 7 days/Wk (IRF) Estimated Hrs Per Day: 1.5 hours per day Agreement: Yes Rehab Potential: Good Time/GCodes Start Time: 09:15 Stop Time: 10:45 Total Time Billed (hr/min): 90 Billed Treatment Time 1 visit ADL 3(40 min) EX 3 (50 min) REYES RODRIGUEZ Mar 28, 2019 10:46
--- NOTE | 2019-03-28 12:08 | Physical Therapy Daily Note ---
PT Daily Note-Current Subjective Pt sitting in recliner upon arrival. Pt agrees to PT. Pain Numeric Pain Scale: 6 Location: Incisional Location Body Site: Knee Pain Description: Ache, Tightness Mental Status Patient Orientation: Person, Place, Time, Situation Transfers Therapy Code Descriptions/Definitions Functional [place] Measure: 0=Not Assessed/NA 4=Minimal Assistance 1=Total Assistance 5=Supervision or Setup 2=Maximal Assistance 6=Modified [place] 3=Moderate Assistance 7=Complete [place] Therapy Quality Codes: 6 Independent with activity with or without an assistive device 5 Patient requires set up or clean up by helper. Patient completes activity by themselves 4 Supervision or touching assist (CGA). [place] provide cues , steadying assist 3 The helper provides less than half the effort to complete the activity 2 The helper provides more than half the effort to complete the activity 1 Dependent. The helper does all the effort to complete an activity 7 Patient refused to complete or attempt activity 9 The patient did not perform the activity before the current illness or injury 88 Not attempted due to Medical conditions or safety concerns Weight Bearing Right Lower Extremity: Right Full Weight Bearing Left Lower Extremity: Left Weight Bearing/Tolerated Exercises Supine Ex: Ankle pumps, Quad Set, Glut sets, Heel Slides, Straight leg raise, Hip abd/add Supine Reps: 15 Seated Therapy Exercises: Ankle pumps, Long arc quads, Hip flexion, Kicking activity Seated Reps: 15 Treatments SOURCING MANAGER gives HEP with explanation and pt performs Supine & Seated EX in room. Pt also discussed questions such as D/C procedure for tomorrow including medications & staple removal. Assessment Current Status: Good Progress Pt has made improvements with strength, mobility & transfers while completing tx. PT Short Term Goals Short Term Goals Time Frame: Mar 23, 2019 Transfers (B,C,W/C) (FIM): 5 (met) Gait (FIM): 5 (met) PT Detention Goals [place] Goals PT [place] Goals Time Frame: Mar 30, 2019 Transfers (B,C,W/C) (FIM): 7 Sit to Lying (QC): 6 Lying-Sitting on Side/Bed(QC): 6 Sit to Stand (QC): 6 Rollin Roll Left to Right (QC): 6 Chair/[id number] Xfer(QC): 6 Car Transfer (QC): 6 Does the Patient Walk: Yes Gait (FIM): 6 Gait distance (FIM): 3=150 ft Distance: 300 ft Walk 10 feet (QC): 6 Walk 10ft-Uneven Surface(QC): 6 Walk 50ft with 2 Turns (QC): 6 Walk 150 ft (QC): 6 Gait Assistive Device: FWW Does the Pt use WC or Scooter?: No Stairs (FIM): 5 # of Steps: 4 1 Step (curb) (QC): 6 4 Steps (QC): 6 12 Steps (QC): 10 Picking up an Object (QC): 4 PT Plan Problem List Problem List: Activity Tolerance Treatment/Plan Treatment Plan: Continue Plan of Care Treatment Plan: Bed Mobility, Education, Functional Activity Serena, Functional Strength, Group Therapy, Gait, Safety, Therapeutic Exercise, Transfers Treatment Duration: Mar 30, 2019 Frequency: At least 5 of 7 days/Wk (IRF) Estimated Hrs Per Day: 1.5 hours per day Patient and/or Family Agrees t: Yes Safety Risks/Education Patient Education: Issued Written HEP, Reviewed Use of Ice, Correct Positioning, Safety Issues Teaching Recipient: Patient Teaching Methods: Discussion Response to Teaching: Verbalize Understanding Time/GCodes Time In: 1130 Time Out: 1200 Total Billed Treatment Time: 30 Total Billed Treatment 1, FA x2 (30m) MONALISA AMES PTA Mar 28, 2019 12:08
[2019-03-28 17:49] VITALS: BP 138/76
[2019-03-29 05:26] VITALS: BP 114/74
[2019-03-29] MEDS: HYDROcodone/APAP 10 MG/325 MG (LORTAB) TAB PO PRN (07:07)
[2019-03-29 08:05] VITALS: BP 130/78
[2019-03-29] MEDS: APIXABAN 5 MG (ELIQUIS) TABLET PO SCH (08:06)
[2019-03-29] MEDS: PANTOPRAZOLE 40 MG (PROTONIX) TAB PO SCH (08:06)
[2019-03-29] MEDS: amLODIPine 10 MG (NORVASC) TAB PO SCH (08:06)
[2019-03-29] MEDS: CALCIUM CARB + VIT D 600 MG (CALCARB + D) TAB PO SCH (08:06)
[2019-03-29] MEDS: VALSARTAN 160 MG (DIOVAN) TABLET PO SCH (08:06)
[2019-03-29] MEDS: ASPIRIN 81 MG CHEW (CHILDREN'S ASA) PO SCH (08:06)
[2019-03-29] MEDS: LACTOBACILLUS ACIDOPHILUS (PROBIOTIC) CAPSULE PO SCH (08:06)
[2019-03-29] MEDS: VITAMIN D3 1,000 UNITS (CHOLECALCIFEROL) TABLET PO SCH (08:11)
[2019-03-29] MEDS: MULTIVIT W/MINERALS TAB (THERAGRAN M) PO SCH (08:11)
[2019-03-29] MEDS: meTOprolol TARTRATE 50 MG (LOPRESSOR) TAB PO SCH (08:13)
[2019-03-29] MEDS ORDERED: SENN-20 PO (08:43)
[2019-03-29] MEDS ORDERED: HYDR-3820 PO (08:43)
--- NOTE | 2019-03-29 08:46 | D/C HH Face to Face Order ---
D/C Face to Face Orders Reconcile Patient Problems Problems Reviewed?: Yes Instructions for Patient Via [facility], Patient Instructions/FollowUp: Dr Gonzalez in 1 week Physician to follow Patient: Dr Gonzalez Discharge Diet for Home: No Restrictions Patient Problems: Left knee replacement HTN PAF Patient Data-Allergies,Ht & Wt Patient Allergies: Coded Allergies: Sulfa (Sulfonamide Antibiotics) (Unverified Allergy, Unknown, 02/10/06) lisinopril (Unverified Allergy, Unknown, 11/15/13) Height (Feet): 5 Height (Inches): 5.00 Weight (Pounds): 186 Weight (Ounces): 9.6 Home Health Need/Face to Face Date of Face to Face: Mar 29, 2019 Clinical Findings: Generalized weakness and fatigue, Muscle weakness, Pain with ambulation, Unsteady gait I have seen Pt [id number]: Yes Discharged To: Home Diagnosis/Conditions: Left knee replacement HTN PAF Patient is Homebound due to: CognItive deficits, Muscle weakness, Pain w/ambulation Homebound Status Due to the above stated illness, injury or surgical procedure (medical condition or diagnosis) and associated clinical findings, the patient is homebound because of his/her inability to leave home except with aid of a supportive device and/or person AND leaving the home requires a considerable and taxing effort or is medically contraindicated. Pt req the following assistanc: Walker Home Health Nursing Orders Home Health Services Order: Physical Therapy-Evaluate & Treat Certify Stmt I certify that this patient is under my care and that I, a nurse practitioner or a physician; a higher level teaching assistant working with me, had a face to face encounter that - meets the physician face to face encounter requirements with this patient as dated. DANIEL THOMPSON DO Mar 29, 2019 08:46
[2019-03-29] MEDS ORDERED: TRAM50TA2 PO (09:15)
--- NOTE | 2019-03-29 09:42 | Therapy Team Discharge Summary ---
Therapy Discharge Summary Discharge Recommendations Date of Discharge Therapy D/C Recommendations: Home w/ Family Support, Physical Therapy Home Care, Physical Therapy Outpatient Physical Therapy Patient came to rehab with TKA. Upon evaluation patient performed bed mobility and transfers with min assist, ambulated 100' with a rolling walker with CGA (including 50' with at least 2 turns of 90 degrees and 10' over an uneven surface), and went up and down 1 step using a rolling walker with min assist. Patient has been performing bed mobility and transfer training, balance and endurance training, functional strengthening, stair training, gait training, and education. Patient has made good progress and has met all of her senior care goals. Now, patient performs bed mobility with independence, transfers with mod I, car transfer mod I, ambulates 150' with a rolling walker with mod I, and can go up and down 12 steps using 2 handrails with mod I. Patient is discharging from this facility today and will be discharged from PT at this time. Occupational Therapy Decreased UE Strength PT [employer] Goals Care Home Goals PT [employer] Goals Time Frame: Mar 30, 2019 Transfers (B,C,W/C) (FIM): 7 Roll Left to Right (QC): 6 Sit to Lying (QC): 6 Lying-Sitting on Side/Bed(QC): 6 Sit to Stand (QC): 6 Chair/Lkr-za-Heiqh Xfer(QC): 6 Car Transfer (QC): 6 Does the Patient Walk: Yes Gait (FIM): 6 Gait distance (FIM): 3=150 ft Distance: 300 ft Walk 10 feet (QC): 6 Walk 10ft-Uneven Surface(QC): 6 Walk 50ft with 2 Turns (QC): 6 Walk 150 ft (QC): 6 Gait Assistive Device: FWW Does the Pt use WC or Scooter?: No Stairs (FIM): 5 # of Steps: 4 1 Step (curb) (QC): 6 4 Steps (QC): 6 12 Steps (QC): 10 Picking up an Object (QC): 4 OT [employer] Goals [employer] Goals Time Frame: Mar 30, 2019 Eating (FIM): 6 (met-03/28/19) Eating (QC): 6 (met-03/28/19) Oral Hygiene (QC): 6 (met-03/28/19) Grooming(FIM): 6 (met-03/28/19) Bathing(FIM): 6 (03/28/19) Shower/Bathe Self (QC): 6 (03/28/19) Upper Body Dressing(FIM): 6 (03/28/19) Upper Body Dressing (QC): 6 (03/28/19) Lower Body Dressing(FIM): 6 (03/28/19) Lower Body Dressing (QC): 6 (03/28/19) On/Off Footwear (QC): 6 (03/28/19) Toileting(FIM): 6 (03/28/19) Toileting Hygiene (QC): 6 (03/28/19) Transfers (B,C,W/C) (FIM): 6 (03/28/19) Toilet/Commode Transfer(FIM): 6 (03/28/19) Toilet/Commode Transfer (QC): 6 (03/28/19) Shower Transfer(FIM): 5 (03/28/19) Additional Goals: 1-Demonstrate ADL Tasks, 2-Verbalize Understanding, 3- ImproveStrength/Serena 1=Demonstrate adherence to instructed precautions during ADL tasks. 2=Patient will verbalize/demonstrate understanding of assistive devices/modifications for ADL. 3=Patient will improve strength/tolerance for activity to enable patient to perform ADL's. LAXMI JACKSON PT Mar 29, 2019 09:42
--- NOTE | 2019-03-29 09:53 | Discharge Summary ---
Diagnosis/Chief Complaint Date of Admission Mar 16, 2019 at 13:20 Date of Discharge Discharge Date: Mar 29, 2019 Discharge Diagnosis Assess & Plan/Chief Complaint Assessment: Status post left total knee replacement uncomplicated Slow recovery COPD Current smoker Coarse breath sounds order nebulizers much improved Paroxysmal atrial fibrillation Long-term oral anticoagulation Postop constipation now resolved Hypertension LFT elevation Insomnia Plan: BM regimen to continue Maintain inpatient rehab protocol Monitor pain and continue pain medication Progressing nicely PCP to help with insomnia is appreciated DC Reason Hospital Visit Verification and Attestation of Medical Student E/M Service A medical student performed and documented this service in my presence. I reviewed and verified all information documented by the medical student and made modifications to such information, when appropriate. I personally performed the physical exam and medical decision making. Eugenia Rizo Thompson, Mar 18, 2019,15:40 Discharge Summary Discharge Physical Examination Allergies: Coded Allergies: Sulfa (Sulfonamide Antibiotics) (Unverified Allergy, Unknown, 02/10/06) lisinopril (Unverified Allergy, Unknown, 11/15/13) Vitals & I&Os Vital Signs Date Time Temp Pulse Resp B/P (MAP) Pulse Ox O2 Delivery O2 Flow Rate FiO2 03/29/19 09:00 Room Air 03/29/19 08:05 75 130/78 (95) 03/29/19 05:26 96.8 18 99 General Appearance: Alert, Oriented X3, Cooperative Respiratory: Clear to Auscultation, Normal Air Movement Cardiovascular: Regular Rate Neuro: Normal Gait, Normal Speech, Strength at 5/5 X4 Ext Psych/Mental Status: Mental Status NL, Mood NL Hospital Course Was the Problem List Reviewed?: Yes Hospital Course: Pt had an uneventful hospital course for two weeks in inpatient rehab after she was admitted after a left total knee replacement by Dr. Anderson at [facility]. She had slow recovery and considering nebulizer treatments were required with oxygen supplementation upon transfer from [facility] she met criteria for intensive rehab in order to return home to live independently. Dierks were removed at time of DC and incision looked really good.Dr. Anderson appointment was obtained along with Dr. Gonzalez who facilitated treatment of pt insomnia and BP while she was hospitalized at the inpatient rehab unit. Overall she improved dramatically, was able to wean off oxygen and nebulizer treatments and elevated liver enzymes were remedied with holding of statin treatment and Tylenol load and overall did very well and was able to be DC with home physical therapy and return to independent living. Labs (last 24 hrs) Laboratory Tests 03/17/19 05:50: White Blood Count 6.8, Red Blood Count 3.77L, Hemoglobin 11.9, Hematocrit 37, Mean Corpuscular Volume 98, Mean Corpuscular Hemoglobin 32, Mean Corpuscular Hemoglobin Concent 32, Red Cell Distribution Width 13.1, Platelet Count 230, Mean Platelet Volume 10.1, Neutrophils (%) (Auto) 63, Lymphocytes (%) (Auto) 24, Monocytes (%) (Auto) 12, Eosinophils (%) (Auto) 1, Basophils (%) (Auto) 0, Neutrophils # (Auto) 4.3, Lymphocytes # (Auto) 1.6, Monocytes # (Auto) 0.8, Eosinophils # (Auto) 0.1, Basophils # (Auto) 0.0, Sodium Level 138, Potassium Level 3.9, Chloride Level 104, Carbon Dioxide Level 23, Anion Gap 11, Blood Urea Nitrogen 14, Creatinine 0.69, Estimat Glomerular Filtration Rate > 60, BUN/Creatinine Ratio 20, Glucose Level 117H, Calcium Level 9.0, Corrected Calcium 9.6, Total Bilirubin 0.7, Aspartate Amino Transf (AST/SGOT) 101H, Alanine Aminotransferase (ALT/SGPT) 100H, Alkaline Phosphatase 64, Total Protein 5.6L, Albumin 3.3, Amylase Level 21L, Lipase 22 03/18/19 06:06: White Blood Count 7.0, Red Blood Count 3.68L, Hemoglobin 11.6, Hematocrit 36, Mean Corpuscular Volume 97, Mean Corpuscular Hemoglobin 32, Mean Corpuscular Hemoglobin Concent 33, Red Cell Distribution Width 13.1, Platelet Count 271, Mean Platelet Volume 10.0, Sodium Level 138, Potassium Level 4.2, Chloride Level 104, Carbon Dioxide Level 22, Anion Gap 12, Blood Urea Nitrogen 16, Creatinine 0.72, Estimat Glomerular Filtration Rate > 60, BUN/Creatinine Ratio 22, Glucose Level 127H, Calcium Level 9.3, Corrected Calcium 9.9, Total Bilirubin 0.9, Aspartate Amino Transf (AST/SGOT) 79H, Alanine Aminotransferase (ALT/SGPT) 111H, Alkaline Phosphatase 86, Total Protein 5.8L, Albumin 3.3 03/19/19 05:29: Sodium Level 138, Potassium Level 4.0, Chloride Level 104, Carbon Dioxide Level 22, Anion Gap 12, Blood Urea Nitrogen 16, Creatinine 0.69, Estimat Glomerular Filtration Rate > 60, BUN/Creatinine Ratio 23, Glucose Level 129H, Calcium Level 9.2, Corrected Calcium 9.9, Total Bilirubin 0.7, Aspartate Amino Transf (AST/ SGOT) 41H, Alanine Aminotransferase (ALT/SGPT) 77H, Alkaline Phosphatase 77, Total Protein 5.8L, Albumin 3.1L 03/20/19 05:16: Sodium Level 139, Potassium Level 4.4, Chloride Level 105, Carbon Dioxide Level 23, Anion Gap 11, Blood Urea Nitrogen 12, Creatinine 0.74, Estimat Glomerular Filtration Rate > 60, BUN/Creatinine Ratio 16, Glucose Level 118H, Calcium Level 9.0, Corrected Calcium 9.8, Total Bilirubin 0.5, Aspartate Amino Transf (AST/SGOT) 27, Alanine Aminotransferase (ALT/SGPT) 56H, Alkaline Phosphatase 75, Total Protein 5.6L, Albumin 3.0L 03/24/19 05:15: White Blood Count 4.6, Red Blood Count 3.35L, Hemoglobin 10.5L, Hematocrit 33L, Mean Corpuscular Volume 99, Mean Corpuscular Hemoglobin 31, Mean Corpuscular Hemoglobin Concent 32, Red Cell Distribution Width 13.0, Platelet Count 458H, Mean Platelet Volume 9.1, Neutrophils (%) (Auto) 48, Lymphocytes (%) (Auto) 33, Monocytes (%) (Auto) 14H, Eosinophils (%) (Auto) 3, Basophils (%) (Auto) 1, Neutrophils # (Auto) 2.2, Lymphocytes # (Auto) 1.5, Monocytes # (Auto) 0.7, Eosinophils # (Auto) 0.2, Basophils # (Auto) 0.0, Sodium Level 141, Potassium Level 3.7, Chloride Level 108H, Carbon Dioxide Level 22, Anion Gap 11, Blood Urea Nitrogen 16, Creatinine 0.69, Estimat Glomerular Filtration Rate > 60, BUN/Creatinine Ratio 23, Glucose Level 119H, Calcium Level 9.0, Corrected Calcium 9.7, Total Bilirubin 0.4, Aspartate Amino Transf (AST/SGOT) 42H, Alanine Aminotransferase (ALT/SGPT) 51, Alkaline Phosphatase 82, Total Protein 5.4L, Albumin 3.1L 03/27/19 04:30: White Blood Count 5.6, Red Blood Count 3.31L, Hemoglobin 10.5L, Hematocrit 33L, Mean Corpuscular Volume 99, Mean Corpuscular Hemoglobin 32, Mean Corpuscular Hemoglobin Concent 32, Red Cell Distribution Width 13.2, Platelet Count 476H, Mean Platelet Volume 9.2, Neutrophils (%) (Auto) 59, Lymphocytes (%) (Auto) 30, Monocytes (%) (Auto) 8, Eosinophils (%) (Auto) 3, Basophils (%) (Auto) 1, Neutrophils # (Auto) 3.3, Lymphocytes # (Auto) 1.7, Monocytes # (Auto) 0.4, Eosinophils # (Auto) 0.2, Basophils # (Auto) 0.0, Sodium Level 142, Potassium Level 3.8, Chloride Level 108H, Carbon Dioxide Level 24, Anion Gap 10, Blood Urea Nitrogen 19H, Creatinine 0.74, Estimat Glomerular Filtration Rate > 60, BUN/Creatinine Ratio 26, Glucose Level 148H, Calcium Level 9.0, Corrected Calci um 9.7, Total Bilirubin 0.3, Aspartate Amino Transf (AST/SGOT) 40H, Alanine Aminotransferase (ALT/SGPT) 45, Alkaline Phosphatase 63, Total Protein 5.2L, Albumin 3.1L Pending Labs Laboratory Tests 03/17/19 05:50: White Blood Count 6.8, Red Blood Count 3.77, Hemoglobin 11.9, Hematocrit 37, Mean Corpuscular Volume 98, Mean Corpuscular Hemoglobin 32, Mean Corpuscular Hemoglobin Concent 32, Red Cell Distribution Width 13.1, Platelet Count 230, Mean Platelet Volume 10.1, Neutrophils (%) (Auto) 63, Lymphocytes (%) (Auto) 24, Monocytes (%) (Auto) 12, Eosinophils (%) (Auto) 1, Basophils (%) (Auto) 0, Neutrophils # (Auto) 4.3, Lymphocytes # (Auto) 1.6, Monocytes # (Auto) 0.8, Eosinophils # (Auto) 0.1, Basophils # (Auto) 0.0, Sodium Level 138, Potassium Level 3.9, Chloride Level 104, Carbon Dioxide Level 23, Anion Gap 11, Blood Urea Nitrogen 14, Creatinine 0.69, Estimat Glomerular Filtration Rate > 60, BUN/Creatinine Ratio 20, Glucose Level 117, Calcium Level 9.0, Corrected Calcium 9.6, Total Bilirubin 0.7, Aspartate Amino Transf (AST/SGOT) 101, Alanine Aminotransferase (ALT/SGPT) 100, Alkaline Phosphatase 64, Total Protein 5.6, Albumin 3.3, Amylase Level 21, Lipase 22 03/18/19 06:06: White Blood Count 7.0, Red Blood Count 3.68, Hemoglobin 11.6, Hematocrit 36, Mean Corpuscular Volume 97, Mean Corpuscular Hemoglobin 32, Mean Corpuscular Hemoglobin Concent 33, Red Cell Distribution Width 13.1, Platelet Count 271, Mean Platelet Volume 10.0, Sodium Level 138, Potassium Level 4.2, Chloride Level 104, Carbon Dioxide Level 22, Anion Gap 12, Blood Urea Nitrogen 16, Creatinine 0.72, Estimat Glomerular Filtration Rate > 60, BUN/Creatinine Ratio 22, Glucose Level 127, Calcium Level 9.3, Corrected Calcium 9.9, Total Bilirubin 0.9, Aspartate Amino Transf (AST/SGOT) 79, Alanine Aminotransferase (ALT/SGPT) 111, Alkaline Phosphatase 86, Total Protein 5.8, Albumin 3.3 03/19/19 05:29: Sodium Level 138, Potassium Level 4.0, Chloride Level 104, Carbon Dioxide Level 22, Anion Gap 12, Blood Urea Nitrogen 16, Creatinine 0.69, Estimat Glomerular Filtration Rate > 60, BUN/Creatinine Ratio 23, Glucose Level 129, Calcium Level 9.2, Corrected Calcium 9.9, Total Bilirubin 0.7, Aspartate Amino Transf (AST/SGOT) 41, Alanine Aminotransferase (ALT/SGPT) 77, Alkaline Phosphatase 77, Total Protein 5.8, Albumin 3.1 03/20/19 05:16: Sodium Level 139, Potassium Level 4.4, Chloride Level 105, Carbon Dioxide Level 23, Anion Gap 11, Blood Urea Nitrogen 12, Creatinine 0.74, Estimat Glomerular Filtration Rate > 60, BUN/Creatinine Ratio 16, Glucose Level 118, Calcium Level 9.0, Corrected Calcium 9.8, Total Bilirubin 0.5, Aspartate Amino Transf (AST/SGOT) 27, Alanine Aminotransferase (ALT/SGPT) 56, Alkaline Phosphatase 75, Total Protein 5.6, Albumin 3.0 03/24/19 05:15: White Blood Count 4.6, Red Blood Count 3.35, Hemoglobin 10.5, Hematocrit 33, Mean Corpuscular Volume 99, Mean Corpuscular Hemoglobin 31, Mean Corpuscular Hemoglobin Concent 32, Red Cell Distribution Width 13.0, Platelet Count 458, Mean Platelet Volume 9.1, Neutrophils (%) (Auto) 48, Lymphocytes (%) (Auto) 33, Monocytes (%) (Auto) 14, Eosinophils (%) (Auto) 3, Basophils (%) (Auto) 1, Neutrophils # (Auto) 2.2, Lymphocytes # (Auto) 1.5, Monocytes # (Auto) 0.7, Eosinophils # (Auto) 0.2, Basophils # (Auto) 0.0, Sodium Level 141, Potassium Level 3.7, Chloride Level 108, Carbon Dioxide Level 22, Anion Gap 11, Blood Urea Nitrogen 16, Creatinine 0.69, Estimat Glomerular Filtration Rate > 60, BUN/Creatinine Ratio 23, Glucose Level 119, Calcium Level 9.0, Corrected Calcium 9.7, Total Bilirubin 0.4, Aspartate Amino Transf (AST/SGOT) 42, Alanine Aminotransferase (ALT/SGPT) 51, Alkaline Phosphatase 82, Total Protein 5.4, Albumin 3.1 03/27/19 04:30: White Blood Count 5.6, Red Blood Count 3.31, Hemoglobin 10.5, Hematocrit 33, Mean Corpuscular Volume 99, Mean Corpuscular Hemoglobin 32, Mean Corpuscular Hemoglobin Concent 32, Red Cell Distribution Width 13.2, Platelet Count 476, Mean Platelet Volume 9.2, Neutrophils (%) (Auto) 59, Lymphocytes (%) (Auto) 30, Monocytes (%) (Auto) 8, Eosinophils (%) (Auto) 3, Basophils (%) (Auto) 1, Neutrophils # (Auto) 3.3, Lymphocytes # (Auto) 1.7, Monocytes # (Auto) 0.4, Eosinophils # (Auto) 0.2, Basophils # (Auto) 0.0, Sodium Level 142, Potassium Level 3.8, Chloride Level 108, Carbon Dioxide Level 24, Anion Gap 10, Blood Urea Nitrogen 19, Creatinine 0.74, Estimat Glomerular Filtration Rate > 60, BUN/Creatinine Ratio 26, Glucose Level 148, Calcium Level 9.0, Corrected Calcium 9.7, Total Bilirubin 0.3, Aspartate Amino Transf (AST/SGOT) 40, Alanine Aminotransferase (ALT/SGPT) 45, Alkaline Phosphatase 63, Total Protein 5.2, Albumin 3.1 Discharge Home Medications: Active Scripts Active Tramadol HCl 50 Mg Tablet 50 Mg PO Q6H PRN Senna-Time S Tablet (Sennosides/Docusate Sodium) 1 Each Tablet 2 Ea PO BID Hydrocodon-Acetaminophn 10-325 (Hydrocodone/Acetaminophen) 1 Each Tablet 1 Ea PO Q4H PRN Reported Eliquis (Apixaban) 5 Mg Tablet 5 Mg PO BID Aspirin 81 Mg Tab.chew 81 Mg PO DAILY Metoprolol Tartrate 100 Mg Tablet 100 Mg PO BID Valsartan 320 Mg Tablet 320 Mg PO DAILY Amlodipine Besylate 10 Mg Tablet 10 Mg PO DAILY Atorvastatin Calcium 10 Mg Tablet 10 Mg PO Q48H Pantoprazole Sodium 40 Mg Tablet.dr 40 Mg PO DAILY Fish Oil 1,000 mg Capsule ([place] 3 Polyunsat Fatty Acids) 1,000 Mg Cap 1,000 Mg PO BID Vitamin D3 (Cholecalciferol (Vitamin D3)) 2,000 Unit Capsule 2,000 Unit PO DAILY Calcium 600 + Vit D 200 Tablet (Calcium Carbonate/Vitamin D3) 1 Each Tablet 1 Tab PO DAILY Multivitamins (Multivitamin) 1 Each Tablet 1 Tab PO DAILY Probiotic (L.acidoph & Paracasei,B.lactis) 1 Each Capsule 1 Cap PO DAILY Instructions to patient/family Please see electronic discharge instructions given to patient. Diagnosis/Problems Diagnosis/Problems (1) Status post left knee replacement Status: Acute (2) COPD (chronic obstructive pulmonary disease) Status: Chronic Qualifiers: Qualified Codes: J44.9 - Chronic obstructive pulmonary disease, unspecified (3) Constipation Status: Acute Qualifiers: Qualified Codes: K59.03 - Drug induced constipation (4) Hypertension Status: Chronic Qualifiers: Qualified Codes: I10 - Essential (primary) hypertension (5) CAD (coronary artery disease) Status: Chronic Qualifiers: Qualified Codes: I25.10 - Atherosclerotic heart disease of [place] coronary artery without angina pectoris (6) Paroxysmal atrial fibrillation (7) Debility Status: Acute (8) Anticoagulant long-term use Status: Chronic (9) Smoker Status: Chronic (10) Elevated liver enzymes Status: Acute (11) Insomnia Status: Acute Qualifiers: Qualified Codes: F51.01 - Primary insomnia Clinical Quality Measures DVT/VTE Risk/Contraindication: Risk Factor Score Per Nursin RFS Level Per Nursing on Admit: 4+=Very High EUGENIA THOMPSON DO Mar 29, 2019 09:53
[2019-03-29] MEDS: DOCUSATE SODIUM 100 MG (COLACE) CAP PO SCH (09:56)
[2019-03-29] MEDS: SENNA W/DOCUSATE (SENOKOT S) TABLET PO SCH (09:56)
[2019-03-29] MEDS: POLYETHYLENE GLYCOL 17 GM (MIRALAX) PACK PO SCH (09:56)
--- NOTE | 2019-03-29 11:28 | NUR ---
RESORT HOST met with patient to review any last minute concerns regarding discharge plans today. Patient expresses none, but does inform RESORT HOST that the ordered tub/shower transfer bench will not provide adequate height for her claw foot tub. Patient's sister will being item back to RESORT HOST today prior to discharge and RESORT HOST will facilitate return to [facility]. RESORT HOST provided a copy of the receipt to the patient and the refund of hamm in the amount of $55.78, this was witnessed by staff. Patient states she can make due with the shower chair she has. Patient's frederic were removed this day. No additional questions or concerns noted. Please see discharge summary for further information.
--- OUTSIDE RECORDS SUMMARY | 2019-03-31 08:14 | XMS REPORT | Clinical Summary ---
Author Author [facility] Organization [facility] Address Unknown Phone Unavailable Care Team Providers Care Proof Carrier Name Role Phone Teresa Gonzalez MD PCP Daniel Khan MD Unavailable Jamarcus Combs MD Unavailable Daria Ryan MD Unavailable Source Comments Some departments are not documenting in the electronic medical record. If you d o not see the information that you expected, contact Release of Information in [facility] Information Management department at [phone] for further assistan ce in locating additional records.[facility] Allergies Comments Active Allergy Reactions Severity Noted Date Lisinopril COUGH Low 09/12/2015 Sulfa (Sulfonamide HIVES Medium 09/12/2015 Antibiotics) Medications End Date Status Medication Sig Dispensed Refills Start Date Active valsartan (DIOVAN) 320 mg Take 320 mg 0 tablet by mouth daily. Active metoprolol (LOPRESSOR) Take 100 mg 0 100 mg tablet by mouth twice daily. Active cholecalciferol (VITAMIN Take 1,000 0 D-3) 1,000 units tablet Units by mouth daily. Active amLODIPine (NORVASC) 10 Take 10 mg by 0 mg tablet mouth daily after lunch. Active aspirin EC 81 mg tablet Take 81 mg by 0 mouth daily. Active dicyclomine (BENTYL) 10 Take 10 mg by 0 mg capsule mouth three times daily as needed. Active omega 9-rfl-bmd-fish oil Take 3 Caps 0 300-1,000 mg capsule by mouth daily. Active pantoprazole DR Take 40 mg by 0 (PROTONIX) 40 mg tablet mouth daily. Active atorvastatin (LIPITOR) 10 Take 10 mg by 0 mg tablet mouth every 48 hours. Active vitamins, multiple tablet Take 1 tablet 0 by mouth daily. Active lactobacillus rhamnosus Take 1 0 GG (LACTOBACILLUS capsule by RHAMNOSUS (GG)) 15 mouth as billion cell cpSP capsule directed twice daily with meals. Active vitamin E 100 unit Take 100 0 capsule Units by mouth daily. Active calcium carbonate/vitamin Take 1 tablet 0 D-3 (OSCAL-500+D) 1250 by mouth mg/200 unit tablet daily. Calcium Carb 1250mg delivers 500mg elemental Ca Active escitalopram oxalate Take 10 mg by 0 (LEXAPRO) 10 mg tablet mouth daily. Active apixaban (ELIQUIS) 5 mg Take 5 mg by 0 tablet mouth twice daily. Active Problems Problem Noted Date Tobacco abuse 09/17/2015 Adenocarcinoma, lung, left Cancer Staging: Clinical stage from 07/09/2017: Stage IA (T1a, N0, M0) - Signed by Tamar Jones APRN-IT TRAINING SPECIALIST on 07/09/2017 Overview: Timeline: 09/12/15 - Initial appt with [...] Radiation tx to Left lung, done in [place], [place] 03/16/16 - CT scans, done in [place] 06/29/16 - CT chest 12/30/16 - CT [...] to rule out surgical contraindication 05/28/2017 07/09/2017 Immunizations Name Administration Dates Next Due Flu Vaccine=>65 YO 06/17/2017 High-Dose [...] Grandmother Maternal Uncle Mother Sister Social History Date Tobacco Use Types Packs/Day Years Used Current Some Day Smoker Cigarettes 0.25 Smokeless Tobacco: Never Used Comments: started at 19yo up to 2p/day . Drinks/Week oz/Week Comments Alcohol Use No Sex Assigned at Date Recorded Not on file Industry Job Start Date Occupation Not on file Not on file Not on file Travel End Travel History Travel Start No recent travel history available. 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 Respiratory Rate 97% 01/06/2018 3:10 PM CDT Oxygen Saturation - - Inhaled Oxygen Concentration 80.2 kg (176 lb 12.8 oz) 01/06/2018 3:10 PM CDT Weight 170.2 cm (5' 7.01") 01/06/2018 3:10 PM CDT Height 27.68 01/06/2018 3:10 PM CDT Body Mass Index Plan of Treatment Health Maintenance Due Date Last Done Comments HEPATITIS C SCREENING 1945 PHYSICAL (COMPREHENSIVE) 01/16/1952 EXAM DTAP/TDAP VACCINES (1 - 1963 Tdap) BREAST CANCER SCREENING 1985 COLORECTAL CANCER 1995 SCREENING SHINGLES RECOMBINANT 1995 VACCINE (1 of 2) OSTEOPOROSIS 2010 SCREENING/MONITORING PNEUMONIA (PCV13/PPSV23) 2010 VACCINES (1 of 2 - PCV13) INFLUENZA VACCINE 05/02/2019 06/17/2017 Results Not on filefrom Last 3 Months Insurance Type Payer Benefit Subscriber ID Effective Phone Address Plan / Dates Group Medicare MEDICARE MEDICARE xxxxxxxxxx 2009-P PART A AND resent B Indemnity [employer] xxxxxxxxxx 2015-P [place] [address] Advance Directives 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
--- OUTSIDE RECORDS SUMMARY | 2019-03-31 08:18 | XMS REPORT | CCD ---
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 Name Role Phone PP Unavailable CCM Unavailable Summary Purpose Interface Exchange Insurance Providers Payer name Policy type / Coverage type Covered constitution party ID Effective Begin Date Effective End Date WPS Medicare Part B [id number] Unknown Bankers Brielle [id number] Unknown Family history Brother Diagnosis Age At Onset Cancer Unknown Sister Diagnosis Age At Onset No Family Disease Entered N/A Sister Diagnosis Age At Onset No Family Disease Entered N/A Father Diagnosis Age At Onset Hypertension Unknown Brother Diagnosis Age At Onset Cancer Unknown Sister Diagnosis Age At Onset No Family Disease Entered N/A Sister Diagnosis Age At Onset No Family Disease Entered N/A Mother Diagnosis Age At Onset Hypertension Unknown Sister Diagnosis Age At Onset No Family Disease Entered N/A Social History Social History Element Codes Description Effective Dates Employment Unknown 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 Unknown Has never used illegal drugs 06/22/2013 Allergies, Adverse Reactions, Alerts Substance Reaction Codes Entered Date Inactivated Date Status lisinopril cough, RxNorm: 91511 06/22/2013 No Inactive Date Active SULFA (SULFONAMIDE ANTIBIOTICS) hives, Unknown 06/22/2013 No Inactive Date Active Past Medical History Illness Codes Condition Status Onset Date Resolved Date Chronic obstructive pulmonary disease, unspecified ICD-9: 496 ICD-10: J44.9 Active 01/07/2017 Unknown Essential (primary) hypertension ICD-9: 401.1 ICD-10: I10 Active 07/09/2017 Unknown Impaired fasting glucose ICD-9: 790.21 ICD-10: R73.01 Active 11/25/2017 Unknown Mixed hyperlipidemia ICD- 9: 272.2 ICD-10: E78.2 Active 05/10/2016 Unknown Peripheral vascular disease, unspecified ICD-9: 443.9 ICD-10: I73.9 Active 09/19/2018 Unknown Rash and other nonspecific skin eruption ICD-9: 782.1 ICD-10: R21 Active 04/29/2017 Unknown Encounter for screening mammogram for malignant neoplasm of breast ICD-9: V76.12 ICD-10: Z12.31 Active 06/27/2018 Unknown Low back pain ICD-9: 724.2 ICD-10: M54.5 Active 12/17/2015 Unknown Malignant neoplasm of upper lobe, left bronchus or lung ICD-9: 162.3 ICD-10: C34.12 Active 12/08/2015 Unknown Solitary pulmonary nodule ICD-9: 793.11 ICD-10: R91.1 Active 10/27/2015 Unknown Tobacco use ICD-9: 305.1 ICD-10: Z72.0 Active 02/09/2016 Unknown Cervicalgia ICD-9: 723.1 ICD-10: M54.2 Active 11/25/2017 Unknown Major depressive disorder, recurrent, moderate ICD-9: 296.32 ICD-10: F33.1 Active 03/25/2018 Unknown Encounter for general adult medical examination with abnormal findings ICD-9: V70.0 ICD-10: Z00.01 Active 12/03/2017 Unknown lung cancer Unknown Active 07/09/2017 Unknown Gas pain ICD-9: 787.3 ICD-10: R14.1 Active 04/29/2017 Unknown Essential (primary) hypertension ICD-9: 401.9 ICD-10: I10 Active 05/10/2016 Unknown Encounter for immunization ICD-9: V04.81 ICD-10: Z23 Active 05/10/2016 Unknown Generalized anxiety disorder ICD-9: 300.02 ICD-10: F41.1 Active 05/10/2016 Unknown Other specified disorders of bone density and structure, multiple sites ICD-9: 733.90 ICD-10: M85.89 Active 05/10/2016 Unknown Myalgia ICD-9: 729.1 ICD-10: M79.1 Active 12/17/2015 Unknown Pain in right hip ICD-9: 719.45 ICD-10: M25.551 Active 12/15/2015 Unknown Bilateral primary osteoarthritis of hip ICD-9: 715.95 ICD-10: M16.0 Active 08/25/2015 Unknown Pulmonary nodule ICD-9: 793.11 Active 02/11/2015 Unknown Other screening mammogram ICD-9: V76.12 Active 01/06/2015 Unknown ACUTE BRONCHITIS ICD-9: 466.0 Active 11/12/2014 Unknown ALLERGIC RHINITIS ICD-9: 477.9 Active 11/12/2014 Unknown Cough ICD-9: 786.2 Active 11/12/2014 Unknown Tobacco use ICD-9: 305.1 Active 11/12/2014 Unknown Elevated blood sugar ICD- 9: 790.29 Active 07/23/2014 Unknown ESOPHAGEAL REFLUX ICD-9: 530.81 Active 07/23/2014 Unknown Dysuria ICD-9: 788.1 Active 03/21/2014 Unknown History of UTI ICD-9: V13.02 Active 03/21/2014 Unknown Vaginal burning ICD-9: 625.8 Active 03/21/2014 Unknown Vaginal yeast infection ICD-9: 112.1 Active 03/21/2014 Unknown ESSENTIAL HYPERTENSION ICD-9: 401.9 Active 01/25/2014 Unknown Rash ICD-9: 782.1 Active 08/21/2013 Unknown Muscle ache of extremity ICD-9: 729.1 Active 07/20/2013 Unknown Tingling in extremities ICD-9: 782.0 Active 07/20/2013 Unknown Depression Unknown Active 06/22/2013 Unknown Hypertension Unknown Active 06/22/2013 Unknown Depression ICD-9: 311 Active 06/22/2013 Unknown Problems Condition Codes Effective Dates Condition Status Chronic obstructive pulmonary disease, unspecified ICD-9: 496 ICD-10: J44.9 01/07/2017 Active Essential (primary) hypertension ICD-9: 401.1 ICD-10: I10 07/09/2017 Active Impaired fasting glucose ICD-9: 790.21 ICD-10: R73.01 11/25/2017 Active Mixed hyperlipidemia ICD- 9: 272.2 ICD-10: E78.2 05/10/2016 Active Peripheral vascular disease, unspecified ICD-9: 443.9 ICD-10: I73.9 09/19/2018 Active Rash and other nonspecific skin eruption ICD-9: 782.1 ICD-10: R21 04/29/2017 Active Encounter for screening mammogram for malignant neoplasm of breast ICD-9: V76.12 ICD-10: Z12.31 06/27/2018 Active Low back pain ICD-9: 724.2 ICD-10: M54.5 12/17/2015 Active Malignant neoplasm of upper lobe, left bronchus or lung ICD-9: 162.3 ICD-10: C34.12 12/08/2015 Active Solitary pulmonary nodule ICD-9: 793.11 ICD-10: R91.1 10/27/2015 Active Tobacco use ICD-9: 305.1 ICD-10: Z72.0 02/09/2016 Active Cervicalgia ICD-9: 723.1 ICD-10: M54.2 11/25/2017 Active Major depressive disorder, recurrent, moderate ICD-9: 296.32 ICD-10: F33.1 03/25/2018 Active Encounter for general adult medical examination with abnormal findings ICD-9: V70.0 ICD-10: Z00.01 12/03/2017 Active lung cancer Unknown 07/09/2017 Active Gas pain ICD-9: 787.3 ICD-10: R14.1 04/29/2017 Active Essential (primary) hypertension ICD-9: 401.9 ICD-10: I10 05/10/2016 Active Encounter for immunization ICD-9: V04.81 ICD-10: Z23 05/10/2016 Active Generalized anxiety disorder ICD-9: 300.02 ICD-10: F41.1 05/10/2016 Active Other specified disorders of bone density and structure, multiple sites ICD-9: 733.90 ICD-10: M85.89 05/10/2016 Active Myalgia ICD-9: 729.1 ICD-10: M79.1 12/17/2015 Active Pain in right hip ICD-9: 719.45 ICD-10: M25.551 12/15/2015 Active Bilateral primary osteoarthritis of hip ICD-9: 715.95 ICD-10: M16.0 08/25/2015 Active Pulmonary nodule ICD-9: 793.11 02/11/2015 Active Other screening mammogram ICD-9: V76.12 01/06/2015 Active ACUTE BRONCHITIS ICD-9: 466.0 11/12/2014 Active ALLERGIC RHINITIS ICD-9: 477.9 11/12/2014 Active Cough ICD-9: 786.2 11/12/2014 Active Tobacco use ICD-9: 305.1 11/12/2014 Active Elevated blood sugar ICD- 9: 790.29 07/23/2014 Active ESOPHAGEAL REFLUX ICD-9: 530.81 07/23/2014 Active Dysuria ICD-9: 788.1 03/21/2014 Active History of UTI ICD-9: V13.02 03/21/2014 Active Vaginal burning ICD-9: 625.8 03/21/2014 Active Vaginal yeast infection ICD-9: 112.1 03/21/2014 Active ESSENTIAL HYPERTENSION ICD-9: 401.9 01/25/2014 Active Rash ICD-9: 782.1 08/21/2013 Active Muscle ache of extremity ICD-9: 729.1 07/20/2013 Active Tingling in extremities ICD-9: 782.0 07/20/2013 Active Depression Unknown 06/22/2013 Active Hypertension Unknown 06/22/2013 Active Depression ICD-9: 311 06/22/2013 Active Medications Medication Codes Instructions Start Date Stop Date Status Fill Instructions Lipitor 10 mg tablet RxNorm: 499957 TAKE ONE TABLET BY MOUTH EVERY OTHER DAY 03/13/2019 09/08/2019 Active dicyclomine 10 mg capsule RxNorm: 982887 1 Capsule(s) PO TID PRN TAKE ONE CAPSULE BY MOUTH THREE TIMES A DAY NEEDED 12/19/2018 12/02/2021 Active DISREGARD ORDER FOR 20MG PILLS olmesartan 40 mg tablet RxNorm: 789769 1 Tablet(s) PO daily 12/19/2018 01/17/2019 Inactive dicyclomine 20 mg tablet RxNorm: 139702 1 Tablet(s) PO TID PRN TAKE ONE CAPSULE BY MOUTH THREE TIMES A DAY NEEDED 12/19/2018 12/19/2018 Inactive PA approved amlodipine 10 mg tablet RxNorm: 250919 TAKE ONE TABLET BY MOUTH EVERY DAY 12/15/2018 06/12/2019 Active dicyclomine 20 mg tablet RxNorm: 137130 1 Tablet(s) PO TID PRN TAKE ONE CAPSULE BY MOUTH THREE TIMES A DAY NEEDED 10/28/2018 12/18/2018 Inactive PA approved gabapentin 300 mg capsule RxNorm: 895369 1 Capsule(s) PO BID 09/30/2018 01/27/2019 Inactive after 14 days of HS increase to BID gabapentin 300 mg capsule RxNorm: 970504 1 Capsule(s) PO QHS 09/30/2018 09/29/2018 Inactive then increase to BID Lyrica 50 mg capsule RxNorm: 235800 1 Capsule(s) PO BID 09/27/2018 12/25/2018 Inactive Lyrica 50 mg capsule RxNorm: 424085 1 Capsule(s) PO BID 09/27/2018 09/26/2018 Inactive nystatin 100,000 unit/gram topical cream RxNorm: 037824 1 Application TOP BID 09/19/2018 10/02/2018 Inactive mix with betamethasone Diovan 320 mg tablet RxNorm: 934987 1 Tablet(s) PO daily 09/19/2018 03/17/2019 Active metoprolol tartrate 100 mg tablet RxNorm: 844645 1 Tablet(s) PO BID TAKE ONE TABLET BY MOUTH TWICE A DAY 09/19/2018 06/15/2019 Active dicyclomine 20 mg tablet RxNorm: 649737 1 Tablet(s) PO TID PRN TAKE ONE CAPSULE BY MOUTH THREE TIMES A DAY NEEDED 09/19/2018 10/27/2018 Inactive betamethasone dipropionate 0.05 % topical cream RxNorm: 064461 1 Application TOP BID 09/19/2018 10/02/2018 Inactive dicyclomine 10 mg capsule RxNorm: 329170 1 Capsule(s) PO TID PRN TAKE ONE CAPSULE BY MOUTH THREE TIMES A DAY NEEDED 09/19/2018 09/18/2018 Inactive nystatin 100,000 unit/gram topical cream RxNorm: 713981 1 Application TOP BID 06/16/2018 06/29/2018 Inactive gabapentin 100 mg capsule RxNorm: 034225 1 Capsule(s) PO UD 06/16/2018 07/15/2018 Inactive 1 po q HS x 1 week then 2 po q HS x 1 week then increase to 3 q HS amlodipine 10 mg tablet RxNorm: 621931 TAKE ONE TABLET BY MOUTH EVERY DAY 05/26/2018 11/21/2018 Inactive Lipitor 10 mg tablet RxNorm: 845657 Tablet(s) TAKE ONE TABLET BY MOUTH EVERY OTHER DAY 05/25/2018 02/18/2019 Inactive Lexapro 20 mg tablet RxNorm: 290264 1 Tablet(s) PO QPM 03/25/2018 09/20/2018 Inactive nystatin 100,000 unit/gram topical cream RxNorm: 405963 1 Application TOP BID 03/25/2018 04/07/2018 Inactive olmesartan 40 mg tablet RxNorm: 963067 1 Tablet(s) PO daily 03/25/2018 09/18/2018 Inactive Diovan 320 mg tablet RxNorm: 362392 TAKE ONE TABLET BY MOUTH DAILY 03/18/2018 03/24/2018 Inactive Lipitor 10 mg tablet RxNorm: 126703 TAKE ONE TABLET BY MOUTH EVERY OTHER DAY 03/18/2018 12/11/2018 Inactive metoprolol tartrate 100 mg tablet RxNorm: 694420 TAKE ONE TABLET BY MOUTH TWICE A DAY 01/05/2018 09/18/2018 Inactive Diovan 320 mg tablet RxNorm: 141889 TAKE ONE TABLET BY MOUTH EVERY DAY 12/16/2017 03/17/2018 Inactive Lexapro 10 mg tablet RxNorm: 612499 1 Tablet(s) PO QPM 11/25/2017 03/24/2018 Inactive amlodipine 10 mg tablet RxNorm: 304429 TAKE ONE TABLET BY MOUTH EVERY DAY 11/15/2017 05/13/2018 Inactive Lipitor 10 mg tablet RxNorm: 437617 TAKE ONE TABLET BY MOUTH EVERY OTHER DAY 10/18/2017 03/17/2018 Inactive dicyclomine 10 mg capsule RxNorm: 149475 TAKE ONE CAPSULE BY MOUTH THREE TIMES A DAY NEEDED 08/12/2017 09/18/2018 Inactive Lipitor 10 mg tablet RxNorm: 026939 TAKE ONE TABLET BY MOUTH EVERY OTHER DAY 07/12/2017 10/17/2017 Inactive Diovan 320 mg tablet RxNorm: 928261 TAKE ONE TABLET BY MOUTH EVERY DAY 06/09/2017 12/05/2017 Inactive dicyclomine 10 mg capsule RxNorm: 177797 TAKE ONE CAPSULE BY MOUTH THREE TIMES A DAY NEEDED 05/05/2017 08/02/2017 Inactive nystatin 100,000 unit/gram topical powder RxNorm: 275753 1 Application TOP BID 04/29/2017 05/08/2017 Inactive Diovan 320 mg tablet RxNorm: 535596 TAKE ONE TABLET BY MOUTH EVERY DAY 03/10/2017 06/07/2017 Inactive dicyclomine 10 mg capsule RxNorm: 047953 TAKE ONE CAPSULE BY MOUTH THREE TIMES A DAY NEEDED 02/04/2017 05/04/2017 Inactive amlodipine 10 mg tablet RxNorm: 834564 TAKE ONE TABLET BY MOUTH EVERY DAY 02/04/2017 10/31/2017 Inactive Lipitor 10 mg tablet RxNorm: 011368 TAKE ONE TABLET BY MOUTH EVERY OTHER DAY 02/04/2017 07/11/2017 Inactive Fish Oil 1,000 mg capsule RxNorm: 1 Capsule(s) PO TID 01/07/2017 No Stop Date Active metoprolol tartrate 100 mg tablet RxNorm: 288486 1 Tablet(s) PO BID TAKE ONE TABLET BY MOUTH TWICE A DAY 01/07/2017 01/01/2018 Inactive Diovan 320 mg tablet RxNorm: 879082 TAKE ONE TABLET BY MOUTH EVERY DAY 11/05/2016 03/04/2017 Inactive Lipitor 10 mg tablet RxNorm: 884574 1 Tablet(s) PO every other day 09/08/2016 01/05/2017 Inactive dc livalo dicyclomine 10 mg capsule RxNorm: 805159 TAKE ONE CAPSULE BY MOUTH THREE TIMES A DAY NEEDED 07/30/2016 01/25/2017 Inactive Diovan 320 mg tablet RxNorm: 054513 TAKE ONE TABLET BY MOUTH EVERY DAY 06/15/2016 11/04/2016 Inactive Lipitor 10 mg tablet RxNorm: 301849 1 Tablet(s) PO every other day 05/25/2016 05/24/2016 Inactive dc livalo Lipitor 10 mg tablet RxNorm: 492874 1 Tablet(s) PO every other day 05/25/2016 09/07/2016 Inactive dc livalo Livalo 2 mg tablet RxNorm: 708661 1 Tablet(s) PO daily 05/20/2016 05/19/2016 Inactive Livalo 2 mg tablet RxNorm: 970220 1 Tablet(s) PO daily 05/20/2016 05/24/2016 Inactive Celexa 10 mg tablet RxNorm: 160661 1 Tablet(s) PO daily 02/10/2016 11/24/2017 Inactive amlodipine 10 mg tablet RxNorm: 918296 TAKE ONE TABLET BY MOUTH EVERY DAY 02/03/2016 02/02/2016 Inactive amlodipine 10 mg tablet RxNorm: 520084 TAKE ONE TABLET BY MOUTH EVERY DAY 02/03/2016 01/27/2017 Inactive amlodipine 10 mg tablet RxNorm: 441500 TAKE ONE TABLET BY MOUTH EVERY DAY 02/03/2016 04/27/2017 Inactive metoprolol tartrate 100 mg tablet RxNorm: 674410 TAKE ONE TABLET BY MOUTH TWICE A DAY 2016 01/06/2017 Inactive Diovan 320 mg tablet RxNorm: 719765 TAKE ONE TABLET BY MOUTH EVERY DAY 12/19/2015 06/14/2016 Inactive Wellbutrin XL 150 mg 24 hr tablet, extended release RxNorm: 818062 1 Tablet(s) PO daily 12/09/2015 02/09/2016 Inactive tramadol 50 mg tablet RxNorm: 821875 1-2 Tablet(s) PO Q6 PRN 12/09/2015 11/24/2017 Inactive Mobic 7.5 mg tablet RxNorm: 114840 TAKE ONE TABLET BY MOUTH DAILY 11/11/2015 11/24/2017 Inactive dicyclomine 10 mg capsule RxNorm: 484845 TAKE ONE CAPSULE BY MOUTH THREE TIMES A DAY NEEDED 11/11/2015 07/29/2016 Inactive Wellbutrin 75 mg tablet RxNorm: 549599 1 Tablet(s) PO BID 10/28/2015 12/08/2015 Inactive simvastatin 20 mg tablet RxNorm: 117449 TAKE ONE TABLET BY MOUTH EVERY DAY 09/05/2015 2016 Inactive Mobic 7.5 mg tablet RxNorm: 708063 1 Tablet(s) PO daily 08/26/2015 11/10/2015 Inactive estradiol 0.5 mg tablet RxNorm: 570559 TAKE ONE TABLET BY MOUTH EVERY DAY 06/11/2015 03/06/2016 Inactive amlodipine 10 mg tablet RxNorm: 842172 TAKE ONE TABLET BY MOUTH EVERY DAY 04/19/2015 01/13/2016 Inactive dicyclomine 10 mg capsule RxNorm: 754759 TAKE ONE CAPSULE BY MOUTH THREE TIMES A DAY NEEDED 04/19/2015 10/15/2015 Inactive simvastatin 20 mg tablet RxNorm: 309139 TAKE ONE TABLET BY MOUTH EVERY DAY 02/21/2015 08/19/2015 Inactive Diovan 320 mg tablet RxNorm: 082848 TAKE ONE TABLET BY MOUTH EVERY DAY 12/19/2014 12/18/2015 Inactive cephalexin 500 mg capsule RxNorm: 479736 1 Capsule(s) PO TID 11/13/2014 11/19/2014 Inactive prednisone 10 mg tablet RxNorm: 862823 3 Tablet(s) PO daily 11/13/2014 11/17/2014 Inactive prednisone 10 mg tablet RxNorm: 599897 3 Tablet(s) PO daily 11/12/2014 11/12/2014 Inactive Kenalog 40 mg/mL suspension for injection RxNorm: 4005025 Milliliter(s) Inj 11/12/2014 11/12/2014 Inactive cephalexin 500 mg capsule RxNorm: 578688 1 Capsule(s) PO TID 11/12/2014 11/12/2014 Inactive ceftriaxone 500 mg solution for injection RxNorm: 1569830 Inj 11/12/2014 11/12/2014 Inactive dicyclomine 10 mg capsule RxNorm: 598608 TAKE ONE CAPSULE BY MOUTH THREE TIMES A DAY NEEDED 11/08/2014 04/18/2015 Inactive metoprolol tartrate 100 mg tablet RxNorm: 218240 TAKE ONE TABLET BY MOUTH TWICE A DAY 10/18/2014 2015 Inactive metoprolol tartrate 100 mg tablet RxNorm: 966263 1 Tablet(s) PO BID 10/18/2014 10/12/2015 Inactive simvastatin 20 mg tablet RxNorm: 680926 TAKE ONE TABLET BY MOUTH EVERY DAY 08/21/2014 02/16/2015 Inactive Diovan 320 mg tablet RxNorm: 195637 TAKE ONE TABLET BY MOUTH EVERY DAY 08/21/2014 12/18/2014 Inactive Carafate 1 gram tablet RxNorm: 676000 1 Tablet(s) PO AC & HS MIX WITH 30ML WATER 07/23/2014 11/24/2017 Inactive dissolve in water and drink as slurry dicyclomine 10 mg capsule RxNorm: 333107 1 Capsule(s) PO TID PRN 07/23/2014 10/20/2014 Inactive simvastatin 20 mg tablet RxNorm: 519917 TAKE ONE TABLET BY MOUTH EVERY DAY 06/07/2014 08/20/2014 Inactive estradiol 0.5 mg tablet RxNorm: 595979 TAKE ONE TABLET BY MOUTH EVERY DAY 05/16/2014 05/10/2015 Inactive amlodipine 10 mg tablet RxNorm: 145124 TAKE ONE TABLET BY MOUTH EVERY DAY 05/16/2014 04/18/2015 Inactive Diovan 320 mg tablet RxNorm: 494398 TAKE ONE TABLET BY MOUTH EVERY DAY 03/26/2014 08/20/2014 Inactive Diflucan 150 mg tablet RxNorm: 060365 1 Tablet(s) PO daily 03/21/2014 03/27/2014 Inactive simvastatin 20 mg tablet RxNorm: 324067 TAKE ONE TABLET BY MOUTH EVERY DAY 03/02/2014 05/30/2014 Inactive estradiol 0.5 mg tablet RxNorm: 645074 TAKE ONE TABLET BY MOUTH EVERY DAY 02/16/2014 05/15/2014 Inactive amlodipine 10 mg tablet RxNorm: 773538 TAKE ONE TABLET BY MOUTH EVERY DAY 02/16/2014 05/15/2014 Inactive pantoprazole 40 mg tablet,delayed release RxNorm: 608305 2 Tablet(s) PO daily 01/25/2014 02/23/2014 Inactive simvastatin 20 mg tablet RxNorm: 649747 Tablet(s) PO TAKE ONE TABLET BY MOUTH EVERY DAY 11/30/2013 03/01/2014 Inactive amlodipine 10 mg tablet RxNorm: 000451 Tablet(s) PO TAKE ONE TABLET BY MOUTH EVERY DAY 11/16/2013 02/15/2014 Inactive metoprolol tartrate 100 mg tablet RxNorm: 942646 1 Tablet(s) PO BID 10/23/2013 10/17/2014 Inactive Diovan 320 mg tablet RxNorm: 696079 Tablet(s) PO TAKE ONE TABLET BY MOUTH EVERY DAY 09/28/2013 03/25/2014 Inactive Carafate 1 gram tablet RxNorm: 400548 1 Tablet(s) PO TID MIX WITH 30ML WATER 09/20/2013 12/18/2013 Inactive estradiol 0.5 mg tablet RxNorm: 814188 1 Tablet(s) PO daily 08/21/2013 02/15/2014 Inactive amlodipine 10 mg tablet RxNorm: 882623 1 Tablet(s) PO daily 08/21/2013 11/15/2013 Inactive simvastatin 20 mg tablet RxNorm: 256193 1 Tablet(s) PO daily 08/21/2013 11/18/2013 Inactive Diovan 320 mg tablet RxNorm: 282494 1 Tablet(s) PO daily 08/21/2013 09/19/2013 Inactive Carafate 1 gram tablet RxNorm: 935897 1 Tablet(s) PO TID MIX WITH 30ML WATER 08/21/2013 09/19/2013 Inactive Diovan 320 mg tablet RxNorm: 548268 1 Tablet(s) PO daily 07/20/2013 08/18/2013 Inactive amlodipine 10 mg tablet RxNorm: 089474 1 Tablet(s) PO daily 07/20/2013 08/18/2013 Inactive estradiol 0.5 mg tablet RxNorm: 934825 1 Tablet(s) PO daily 07/20/2013 08/18/2013 Inactive metoprolol tartrate 100 mg tablet RxNorm: 201337 1 Tablet(s) PO BID 06/22/2013 10/22/2013 Inactive Wellbutrin XL 150 mg 24 hr tablet, extended release RxNorm: 035182 1 Tablet(s) PO daily 06/22/2013 07/19/2013 Inactive pantoprazole 40 mg tablet,delayed release RxNorm: 348773 1 Tablet(s) PO daily No Start Date Active calcium 500 mg tablet RxNorm: 2 Tablet(s) PO BID No Start Date Active glucosamine and okitgpprole-shrzntek-xkbh#3 oral RxNorm: 2837 oral No Start Date Active multivitamin tablet RxNorm: 1 Tablet(s) PO daily No Start Date Active aspirin 81 mg tablet RxNorm: 577985 1 Tablet(s) PO daily No Start Date Active Probiotic oral RxNorm: oral No Start Date Active Vitamin D3 1,000 unit capsule RxNorm: 941093 1 Capsule(s) PO daily No Start Date Active Eliquis 5 mg tablet RxNorm: 6999158 1 Tablet(s) PO BID No Start Date Active simvastatin 20 mg tablet RxNorm: 625076 1 Tablet(s) PO daily No Start Date 08/20/2013 Inactive hyoscyamine 0.125 mg sublingual tablet RxNorm: 8306010 1 Tablet(s) SL TID No Start Date 07/22/2014 Inactive metoprolol tartrate 100 mg tablet RxNorm: 249486 1 Tablet(s) PO daily No Start Date 06/21/2013 Inactive amlodipine 10 mg tablet RxNorm: 041709 1 Tablet(s) PO daily No Start Date 07/19/2013 Inactive Diovan 320 mg tablet RxNorm: 036948 1 Tablet(s) PO daily No Start Date 07/19/2013 Inactive Fish Oil 1,000 mg capsule RxNorm: 1 Capsule(s) PO BID No Start Date 01/06/2017 Inactive omeprazole 20 mg tablet,delayed release RxNorm: 580630 1 Tablet(s) PO daily No Start Date 01/25/2014 Inactive estradiol 0.5 mg tablet RxNorm: 585613 1 Tablet(s) PO daily No Start Date 07/19/2013 Inactive Medication Administered Medication Codes Instructions Start Date Status Kenalog 40 mg/mL suspension for injection RxNorm: 8340563 Milliliter 11/12/2014 No longer Active ceftriaxone 500 mg solution for injection RxNorm: 9537780 11/12/2014 No longer Active Immunizations Vaccine Codes Date Status SHINGARIX CVX: 121 01/23/2019 completed Influenza CVX: 141 05/11/2016 completed Pneumococcal (Adult) CVX: 133 05/11/2016 completed Influenza CVX: 141 08/13/2013 completed Assessments Condition Codes Effective Dates Essential (primary) hypertension ICD-10: I10 ICD-9: 401.1 12/19/2018 Impaired fasting glucose ICD-10: R73.01 ICD-9: 790.21 12/19/2018 Mixed hyperlipidemia ICD-10: E78.2 ICD-9: 272.2 12/19/2018 Rash and other nonspecific skin eruption ICD-10: R21 ICD-9: 782.1 09/19/2018 Peripheral vascular disease, unspecified ICD-10: I73.9 ICD-9: 443.9 09/19/2018 Encounter for screening mammogram for malignant neoplasm of breast ICD-10: Z12.31 ICD-9: V76.12 06/27/2018 Tobacco use ICD-10: Z72.0 ICD-9: 305.1 06/16/2018 Malignant neoplasm of upper lobe, left bronchus or lung ICD-10: C34.12 ICD-9: 162.3 06/16/2018 Solitary pulmonary nodule ICD-10: R91.1 ICD-9: 793.11 06/16/2018 Low back pain ICD-10: M54.5 ICD-9: 724.2 06/16/2018 Major depressive disorder, recurrent, moderate ICD-10: F33.1 ICD-9: 296.32 03/25/2018 Encounter for general adult medical examination with abnormal findings ICD-10: Z00.01 ICD-9: V70.0 12/03/2017 Cervicalgia ICD-10: M54.2 ICD-9: 723.1 11/25/2017 Gas pain ICD-10: R14.1 ICD-9: 787.3 04/29/2017 Chronic obstructive pulmonary disease, unspecified ICD-10: J44.9 ICD-9: 496 01/07/2017 Essential (primary) hypertension ICD-10: I10 ICD-9: 401.9 01/07/2017 Encounter for immunization ICD-10: Z23 ICD-9: V04.81 05/11/2016 Generalized anxiety disorder ICD-10: F41.1 ICD-9: 300.02 05/11/2016 Other specified disorders of bone density and structure, multiple sites ICD-10: M85.89 ICD-9: 733.90 05/11/2016 Myalgia ICD-10: M79.1 ICD-9: 729.1 12/18/2015 Pain in right hip ICD-10: M25.551 ICD-9: 719.45 12/16/2015 Bilateral primary osteoarthritis of hip ICD-10: M16.0 ICD-9: 715.95 08/26/2015 Pulmonary nodule ICD-9: 793.11 02/12/2015 ESSENTIAL HYPERTENSION ICD-9: 401.9 02/12/2015 Other screening mammogram ICD-9: V76.12 01/07/2015 Cough ICD-9: 786.2 11/12/2014 Tobacco use ICD-9: 305.1 11/12/2014 ALLERGIC RHINITIS ICD-9: 477.9 11/12/2014 ACUTE BRONCHITIS ICD-9: 466.0 11/12/2014 ESOPHAGEAL REFLUX ICD-9: 530.81 07/23/2014 Elevated blood sugar ICD-9: 790.29 07/23/2014 Vaginal burning ICD-9: 625.8 03/21/2014 Vaginal yeast infection ICD-9: 112.1 03/21/2014 History of UTI ICD-9: V13.02 03/21/2014 Dysuria ICD-9: 788.1 03/21/2014 Rash ICD-9: 782.1 08/21/2013 Tingling in extremities ICD-9: 782.0 07/20/2013 Muscle ache of extremity ICD-9: 729.1 07/20/2013 Depression ICD-9: 311 06/22/2013 Reason For Visit Reason For Visit Effective Dates Notes hypertension 12/19/2018 hypertension 09/19/2018 hypertension 06/16/2018 rash 03/25/2018 Annual Medicare Wellness Exam 12/03/2017 hypertension 11/25/2017 blood pressure followup 07/09/2017 rash 04/29/2017 bilat axilla blood pressure followup 01/07/2017 blood pressure followup 09/08/2016 blood pressure followup 05/11/2016 blood pressure followup 02/10/2016 low back and leg pain 12/18/2015 low back and leg pain 12/16/2015 hip pain 12/09/2015 hypertension 10/28/2015 hypertension 08/26/2015 hypertension 02/12/2015 cough 11/12/2014 abdominal pain 07/23/2014 ~generic 03/21/2014 vaginal burning hypertension 01/25/2014 hypertension 10/23/2013 dyspepsia 08/21/2013 hypertension 07/20/2013 hypertension 06/22/2013 Results Observation Observation Code Item Item Code Result Date Cbc With Differential Ord2 WBC 6.85 K/ul 12/19/2018 Cbc With Differential Ord2 RBC 4.90 M/ul 12/19/2018 Cbc With Differential Ord2 HGB 15.5 g/dl 12/19/2018 Cbc With Differential Ord2 HCT 47.4 % 12/19/2018 Cbc With Differential Ord2 Neut% 58.8 % 12/19/2018 Cbc With Differential Ord2 MCV 96.7 fl 12/19/2018 Cbc With Differential Ord2 Lymph% 31.5 % 12/19/2018 Cbc With Differential Ord2 [place]% 8.0 % 12/19/2018 Cbc With Differential Ord2 MCH 31.6 pg 12/19/2018 Cbc With Differential Ord2 MCHC 32.7 pg 12/19/2018 Cbc With Differential Ord2 Eos% 1.3 % 12/19/2018 Cbc With Differential Ord2 PLT 317 K/ul 12/19/2018 Cbc With Differential Ord2 Baso% 0.4 % 12/19/2018 Cbc With Differential Ord2 RDW 14.9 % 12/19/2018 Cbc With Differential Ord2 Neut ABS# 4.02 K/ul 12/19/2018 Cbc With Differential Ord2 Lymph ABS# 2.16 K/ul 12/19/2018 Cbc With Differential Ord2 [place] ABS# 0.6 K/ul 12/19/2018 Cbc With Differential Ord2 Eos ABS# 0.1 K/ul 12/19/2018 Cbc With Differential Ord2 Baso ABS# 0.0 K/ul 12/19/2018 %Hba1C Glc163 % HbA1c 53190- 6 6.2 % 12/19/2018 %Hba1C Zme692 Gluc Ave 131 mg/dL 12/19/2018 Lipid Ord30 CHOL 200 mg/dL 12/19/2018 Lipid Ord30 HDL 72.0 mg/dl 12/19/2018 Lipid Ord30 TRIG 83 mg/dL 12/19/2018 Lipid Ord30 LDL 111 mg/dL 12/19/2018 Lipid Ord30 C/HDL 2.8 Ratio 12/19/2018 Tsh Ord6 TSH (3rd IS) 1.58 uIU/mL 12/19/2018 Comp Metabolic Jen045 NA 139 mEq/L 12/19/2018 Comp Metabolic Dmi018 K 4.5 mEq/L 12/19/2018 Comp Metabolic Wgp442 CL 102 mEq/L 12/19/2018 Comp Metabolic Hpm336 CO2 28.0 mEq/L 12/19/2018 Comp Metabolic Zyd588 ANION GAP 14 12/19/2018 Comp Metabolic Qti649 GLUCOSE 112 mg/dL 12/19/2018 Comp Metabolic Ozm122 Creat 1.0 mg/dL 12/19/2018 Comp Metabolic Zct996 eGFR 60 ml/min/1.73m2 12/19/2018 Comp Metabolic Lvy887 BUN 23 mg/dL 12/19/2018 Comp Metabolic Ttu253 B/C Ratio 24.0 Ratio 12/19/2018 Comp Metabolic Fae219 CALCIUM 9.8 mg/dL 12/19/2018 Comp Metabolic Fks249 ALK PHOS 53 U/L 12/19/2018 Comp Metabolic Eek414 AST(SGOT) 17 U/L 12/19/2018 Comp Metabolic Cqw519 ALT(SGPT) 21 U/L 12/19/2018 Comp Metabolic Zda687 BILI T 0.4 mg/dL 12/19/2018 Comp Metabolic Hiq584 ALBUMIN 4.1 g/dL 12/19/2018 Comp Metabolic Ith655 TPRO 6.4 g/dL 12/19/2018 Comp Metabolic Nci714 GLOB 2.3 g/dL 12/19/2018 Comp Metabolic Dwp070 A/G Ratio 1.8 Ratio 12/19/2018 Comp Metabolic Dng927 Osmo 282 mOsmo 12/19/2018 Lipid Ord30 CHOL 180 mg/dL 11/25/2017 Lipid Ord30 HDL 52.0 mg/dl 11/25/2017 Lipid Ord30 TRIG 115 mg/dL 11/25/2017 Lipid Ord30 LDL 105 mg/dL 11/25/2017 Lipid Ord30 C/HDL 3.5 Ratio 11/25/2017 %Hba1C Ezj657 % HbA1c 59352- 6 5.7 % 11/25/2017 %Hba1C Gsh203 Gluc Ave 117 mg/dL 11/25/2017 Tsh Ord6 TSH (3rd IS) 1.06 uIU/mL 11/25/2017 Comp Metabolic Wqw788 NA 141 mEq/L 11/25/2017 Comp Metabolic Jix381 K 4.2 mEq/L 11/25/2017 Comp Metabolic Bzz332 CL 103 mEq/L 11/25/2017 Comp Metabolic Hmt139 CO2 31.0 mEq/L 11/25/2017 Comp Metabolic Rir569 ANION GAP 11 11/25/2017 Comp Metabolic Gyb060 GLUCOSE 117 mg/dL 11/25/2017 Comp Metabolic Mgr558 Creat 0.8 mg/dL 11/25/2017 Comp Metabolic Mab677 eGFR 74 ml/min/1.73m2 11/25/2017 Comp Metabolic Djl746 BUN 18 mg/dL 11/25/2017 Comp Metabolic Yzw068 B/C Ratio 22.2 Ratio 11/25/2017 Comp Metabolic Ele088 CALCIUM 9.4 mg/dL 11/25/2017 Comp Metabolic Fsl978 ALK PHOS 62 U/L 11/25/2017 Comp Metabolic Jvf427 AST(SGOT) 21 U/L 11/25/2017 Comp Metabolic Gcv883 ALT(SGPT) 18 U/L 11/25/2017 Comp Metabolic Pzk628 BILI T 0.4 mg/dL 11/25/2017 Comp Metabolic Gek833 ALBUMIN 4.0 g/dL 11/25/2017 Comp Metabolic Kjl401 TPRO 6.1 g/dL 11/25/2017 Comp Metabolic Bcq148 GLOB 2.1 g/dL 11/25/2017 Comp Metabolic Rcr895 A/G Ratio 1.9 Ratio 11/25/2017 Comp Metabolic Kym233 Osmo 284 mOsmo 11/25/2017 Cbc With Differential Ord2 WBC 5.43 K/ul 11/25/2017 Cbc With Differential Ord2 RBC 4.18 M/ul 11/25/2017 Cbc With Differential Ord2 HGB 13.0 g/dl 11/25/2017 Cbc With Differential Ord2 HCT 40.8 % 11/25/2017 Cbc With Differential Ord2 Neut% 48.8 % 11/25/2017 Cbc With Differential Ord2 MCV 97.6 fl 11/25/2017 Cbc With Differential Ord2 Lymph% 37.4 % 11/25/2017 Cbc With Differential Ord2 MCH 31.1 pg 11/25/2017 Cbc With Differential Ord2 [place]% 11.2 % 11/25/2017 Cbc With Differential Ord2 MCHC 31.9 pg 11/25/2017 Cbc With Differential Ord2 Eos% 2.2 % 11/25/2017 Cbc With Differential Ord2 PLT 351 K/ul 11/25/2017 Cbc With Differential Ord2 Baso% 0.4 % 11/25/2017 Cbc With Differential Ord2 RDW 14.1 % 11/25/2017 Cbc With Differential Ord2 Neut ABS# 2.65 K/ul 11/25/2017 Cbc With Differential Ord2 Lymph ABS# 2.03 K/ul 11/25/2017 Cbc With Differential Ord2 [place] ABS# 0.6 K/ul 11/25/2017 Cbc With Differential Ord2 Eos ABS# 0.1 K/ul 11/25/2017 Cbc With Differential Ord2 Baso ABS# 0.0 K/ul 11/25/2017 Cbc With Differential Ord2 WBC 4.62 K/ul 05/11/2016 Cbc With Differential Ord2 RBC 4.69 M/ul 05/11/2016 Cbc With Differential Ord2 HGB 14.9 g/dl 05/11/2016 Cbc With Differential Ord2 HCT 45.9 % 05/11/2016 Cbc With Differential Ord2 Neut% 49.9 % 05/11/2016 Cbc With Differential Ord2 MCV 97.9 fl 05/11/2016 Cbc With Differential Ord2 Lymph% 38.1 % 05/11/2016 Cbc With Differential Ord2 MCH 31.8 pg 05/11/2016 Cbc With Differential Ord2 [place]% 9.5 % 05/11/2016 Cbc With Differential Ord2 MCHC 32.5 pg 05/11/2016 Cbc With Differential Ord2 Eos% 1.9 % 05/11/2016 Cbc With Differential Ord2 PLT 302 K/ul 05/11/2016 Cbc With Differential Ord2 Baso% 0.6 % 05/11/2016 Cbc With Differential Ord2 RDW 13.8 % 05/11/2016 Cbc With Differential Ord2 Neut ABS# 2.30 K/ul 05/11/2016 Cbc With Differential Ord2 Lymph ABS# 1.76 K/ul 05/11/2016 Cbc With Differential Ord2 [place] ABS# 0.4 K/ul 05/11/2016 Cbc With Differential Ord2 Eos ABS# 0.1 K/ul 05/11/2016 Cbc With Differential Ord2 Baso ABS# 0.0 K/ul 05/11/2016 Comp Metabolic Pen157 NA 139 mEq/L 05/11/2016 Comp Metabolic Zjj803 K 4.6 mEq/L 05/11/2016 Comp Metabolic Wzl694 CL 104 mEq/L 05/11/2016 Comp Metabolic Tyt214 CO2 30.0 mEq/L 05/11/2016 Comp Metabolic Ydb011 ANION GAP 10 05/11/2016 Comp Metabolic Fuc443 GLUCOSE 113 mg/dL 05/11/2016 Comp Metabolic Nfu953 Creat 0.8 mg/dL 05/11/2016 Comp Metabolic Krj034 eGFR 74 ml/min/1.73m2 05/11/2016 Comp Metabolic Ufo225 BUN 16 mg/dL 05/11/2016 Comp Metabolic Ynd277 B/C Ratio 19.8 Ratio 05/11/2016 Comp Metabolic Ukb305 CALCIUM 10.1 mg/dL 05/11/2016 Comp Metabolic Tej092 ALK PHOS 44 U/L 05/11/2016 Comp Metabolic Cox654 AST(SGOT) 20 U/L 05/11/2016 Comp Metabolic Hrv318 ALT(SGPT) 17 U/L 05/11/2016 Comp Metabolic Hqy096 BILI T 0.4 mg/dL 05/11/2016 Comp Metabolic Atu613 ALBUMIN 4.1 g/dL 05/11/2016 Comp Metabolic Iwr327 TPRO 6.5 g/dL 05/11/2016 Comp Metabolic Akg826 GLOB 2.4 g/dL 05/11/2016 Comp Metabolic Hex944 A/G Ratio 1.8 Ratio 05/11/2016 Comp Metabolic Uxr832 Osmo 280 mOsmo 05/11/2016 Tsh Ord6 hTSH II 0.96 uIU/mL 05/11/2016 Lipid Ord30 CHOL 283 mg/dL 05/11/2016 Lipid Ord30 HDL 53.0 mg/dl 05/11/2016 Lipid Ord30 TRIG 144 mg/dL 05/11/2016 Lipid Ord30 LDL 201 mg/dL 05/11/2016 Lipid Ord30 C/HDL 5.3 Ratio 05/11/2016 C-Reactive Protein Qnt Crqnt CRP 0.5 mg/dl 12/18/2015 Vitamin D 25 Oh Lmn8400 VITAMIN D, 25 HYDROXY 84.50 ng/mL 12/18/2015 Comp Metabolic Uyl639 NA 139 mEq/L 12/18/2015 Comp Metabolic Pmk581 K 3.8 mEq/L 12/18/2015 Comp Metabolic Brc109 CL 103 mEq/L 12/18/2015 Comp Metabolic Pfj796 CO2 31.0 mEq/L 12/18/2015 Comp Metabolic Fms066 ANION GAP 9 12/18/2015 Comp Metabolic Iac106 GLUCOSE 107 mg/dL 12/18/2015 Comp Metabolic Xod808 Creat 0.8 mg/dL 12/18/2015 Comp Metabolic Xrg794 eGFR 80 ml/min/1.73m2 12/18/2015 Comp Metabolic Jpl474 BUN 19 mg/dL 12/18/2015 Comp Metabolic Ncy562 B/C Ratio 25.0 Ratio 12/18/2015 Comp Metabolic Zpx152 CALCIUM 9.1 mg/dL 12/18/2015 Comp Metabolic Qfb021 ALK PHOS 42 U/L 12/18/2015 Comp Metabolic Hmn902 AST(SGOT) 17 U/L 12/18/2015 Comp Metabolic Mkh629 ALT(SGPT) 18 U/L 12/18/2015 Comp Metabolic Uks802 BILI T 0.3 mg/dL 12/18/2015 Comp Metabolic Cwr590 ALBUMIN 3.8 g/dL 12/18/2015 Comp Metabolic Fzf510 TPRO 5.9 g/dL 12/18/2015 Comp Metabolic Gtb074 GLOB 2.1 g/dL 12/18/2015 Comp Metabolic Jkn637 A/G Ratio 1.8 Ratio 12/18/2015 Comp Metabolic Yyb009 Osmo 280 mOsmo 12/18/2015 Sed Rate Ord21 ESR 9 mm/hr 12/18/2015 Cbc With Differential Ord2 WBC 5.49 K/ul 12/18/2015 Cbc With Differential Ord2 RBC 4.12 M/ul 12/18/2015 Cbc With Differential Ord2 HGB 13.2 g/dl 12/18/2015 Cbc With Differential Ord2 HCT 40.2 % 12/18/2015 Cbc With Differential Ord2 Neut% 61.5 % 12/18/2015 Cbc With Differential Ord2 MCV 97.6 fl 12/18/2015 Cbc With Differential Ord2 Lymph% 26.4 % 12/18/2015 Cbc With Differential Ord2 MCH 32.0 pg 12/18/2015 Cbc With Differential Ord2 [place]% 9.3 % 12/18/2015 Cbc With Differential Ord2 MCHC 32.8 pg 12/18/2015 Cbc With Differential Ord2 Eos% 2.4 % 12/18/2015 Cbc With Differential Ord2 PLT 267 K/ul 12/18/2015 Cbc With Differential Ord2 Baso% 0.4 % 12/18/2015 Cbc With Differential Ord2 RDW 13.5 % 12/18/2015 Cbc With Differential Ord2 Neut ABS# 3.38 K/ul 12/18/2015 Cbc With Differential Ord2 Lymph ABS# 1.45 K/ul 12/18/2015 Cbc With Differential Ord2 [place] ABS# 0.5 K/ul 12/18/2015 Cbc With Differential Ord2 Eos ABS# 0.1 K/ul 12/18/2015 Cbc With Differential Ord2 Baso ABS# 0.0 K/ul 12/18/2015 Cbc With Differential Ord2 New Analyzer Notice Please note new ref ranges starting 08-14-2015 due to implemntation of new five part differential hematolgy analyzer. 12/18/2015 Cbc With Differential Ord2 WBC 5.91 K/ul 09/02/2015 Cbc With Differential Ord2 RBC 4.78 M/ul 09/02/2015 Cbc With Differential Ord2 HGB 15.1 g/dl 09/02/2015 Cbc With Differential Ord2 HCT 46.3 % 09/02/2015 Cbc With Differential Ord2 Neut% 63.6 % 09/02/2015 Cbc With Differential Ord2 MCV 96.9 fl 09/02/2015 Cbc With Differential Ord2 Lymph% 25.9 % 09/02/2015 Cbc With Differential Ord2 MCH 31.6 pg 09/02/2015 Cbc With Differential Ord2 [place]% 8.8 % 09/02/2015 Cbc With Differential Ord2 MCHC 32.6 pg 09/02/2015 Cbc With Differential Ord2 Eos% 1.4 % 09/02/2015 Cbc With Differential Ord2 PLT 271 K/ul 09/02/2015 Cbc With Differential Ord2 Baso% 0.3 % 09/02/2015 Cbc With Differential Ord2 RDW 13.9 % 09/02/2015 Cbc With Differential Ord2 Neut ABS# 3.76 K/ul 09/02/2015 Cbc With Differential Ord2 Lymph ABS# 1.53 K/ul 09/02/2015 Cbc With Differential Ord2 [place] ABS# 0.5 K/ul 09/02/2015 Cbc With Differential Ord2 Eos ABS# 0.1 K/ul 09/02/2015 Cbc With Differential Ord2 Baso ABS# 0.0 K/ul 09/02/2015 Cbc With Differential Ord2 New Analyzer Notice Please note new ref ranges starting 08-14-2015 due to implemntation of new five part differential hematolgy analyzer. 09/02/2015 Tsh Ord6 hTSH II 1.41 uIU/mL 09/02/2015 Comp Metabolic Qlw806 NA 136 mEq/L 09/02/2015 Comp Metabolic Aqh841 K 4.5 mEq/L 09/02/2015 Comp Metabolic Fqw401 CL 103 mEq/L 09/02/2015 Comp Metabolic Ixo223 CO2 27.0 mEq/L 09/02/2015 Comp Metabolic Erm874 ANION GAP 11 09/02/2015 Comp Metabolic Wzx192 GLUCOSE 109 mg/dL 09/02/2015 Comp Metabolic Mdv645 Creat 1.0 mg/dL 09/02/2015 Comp Metabolic Rab638 eGFR 62 ml/min/1.73m2 09/02/2015 Comp Metabolic Pai927 BUN 21 mg/dL 09/02/2015 Comp Metabolic Eir031 B/C Ratio 22.1 Ratio 09/02/2015 Comp Metabolic Mjb476 CALCIUM 9.3 mg/dL 09/02/2015 Comp Metabolic Dpo185 ALK PHOS 37 U/L 09/02/2015 Comp Metabolic Mni661 AST(SGOT) 19 U/L 09/02/2015 Comp Metabolic Dub638 ALT(SGPT) 16 U/L 09/02/2015 Comp Metabolic Eml788 BILI T 0.4 mg/dL 09/02/2015 Comp Metabolic Wqd694 ALBUMIN 4.1 g/dL 09/02/2015 Comp Metabolic Ual518 TPRO 6.3 g/dL 09/02/2015 Comp Metabolic Yqo574 GLOB 2.2 g/dL 09/02/2015 Comp Metabolic Eym809 A/G Ratio 1.8 Ratio 09/02/2015 Comp Metabolic Pps697 Osmo 276 mOsmo 09/02/2015 A1C HPLC 7558040 A1C HPLC 17835-3 5.6 % 07/23/2014 VIT D TOTL 0324926 VIT D TOTL 52 NG/ML 07/20/2013 GFR CALC 5258530 GFR AA >60 ML/MIN 07/20/2013 GFR CALC 6160714 GFR NON-AA >60 ML/MIN 07/20/2013 CBC 7307668 WBC 5.9 10e9/L 07/20/2013 CBC 9971679 RBC 4.79 10e12/L 07/20/2013 CBC 9694214 HGB 15.5 g/dL 07/20/2013 CBC 8102186 HCT DET 46.1 % 07/20/2013 CBC 7290698 MCV 96.2 fL 07/20/2013 CBC 6173750 MCH 32.4 pg 07/20/2013 CBC 6324337 MCHC 33.6 g/dL 07/20/2013 CBC 8741516 PLT 286 10e9/L 07/20/2013 CBC 0798281 MPV 10.8 fL 07/20/2013 CBC 2478786 ERINN % 66.1 % 07/20/2013 CBC 3682849 LY % 24.3 % 07/20/2013 CBC 7366068 MON % 8.1 % 07/20/2013 CBC 6872972 EOS % 1.2 % 07/20/2013 CBC 4207559 BASO % 0.3 % 07/20/2013 CBC 8748178 RDW 12.7 % 07/20/2013 CBC 5159948 ABS ERINN 3.90 10e9/L 07/20/2013 CBC 6649605 ABS LYMPH 1.43 10e9/L 07/20/2013 CBC 1943546 ABS MONO 0.48 10e9/L 07/20/2013 CBC 5335486 ABS EOS 0.07 10e9/L 07/20/2013 CBC 8313041 ABS BASO 0.02 10e9/L 07/20/2013 CBC 7811056 RDW-SD 44.1 fL 07/20/2013 A1C HPLC 1737311 A1C HPLC 49407-3 5.9 % 07/20/2013 LIPID GRP HDL TEST 54 MG/DL 07/20/2013 LIPID GRP TRIG 98 MG/DL 07/20/2013 LIPID GRP TEST LDL 95 MG/DL 07/20/2013 LIPID GRP CHOL 169 MG/DL 07/20/2013 LIPID GRP RCHOL/HDL 3.13 RATIO 07/20/2013 TSH 1358943 TSH 1.032 uIU/ML 07/20/2013 CHEM 14 6160001 AST 18 U/L 07/20/2013 CHEM 14 8844616 ALT 13 IU/L 07/20/2013 CHEM 14 9183770 BUN 19 MG/DL 07/20/2013 CHEM 14 1744318 ALBUMIN 4.5 GM/DL 07/20/2013 CHEM 14 2781736 CHLORIDE 105 MMOL/L 07/20/2013 CHEM 14 6620685 BILI TOT 0.5 MG/DL 07/20/2013 CHEM 14 9253444 ALK PHOS 40 U/L 07/20/2013 CHEM 14 4313113 SODIUM 137 MMOL/L 07/20/2013 CHEM 14 8900490 CREATININE 0.76 MG/DL 07/20/2013 CHEM 14 6038187 CALCIUM 10.0 MG/DL 07/20/2013 CHEM 14 6563447 POTASSIUM 4.6 MMOL/L 07/20/2013 CHEM 14 0285982 PROT TOT 6.5 GM/DL 07/20/2013 CHEM 14 5220442 GLUCOSE 118 MG/DL 07/20/2013 CHEM 14 7664152 BICARB 26 MMOL/L 07/20/2013 CHEM 14 7629330 ANION GAP 6 MEQ/L 07/20/2013 VIT B 12 0336799 VIT B 12 492 PG/ML 07/20/2013 Review of Systems System Result Effective Dates Constitutional No recent illness 12/19/2018 Constitutional No anorexia 12/19/2018 Constitutional No night sweats 12/19/2018 Constitutional No chills 12/19/2018 Constitutional diaphoresis 12/19/2018 Constitutional fatigue 12/19/2018 Constitutional No fever 12/19/2018 Constitutional No insomnia 12/19/2018 Constitutional No malaise 12/19/2018 Constitutional No weight loss 12/19/2018 Constitutional No weight gain 12/19/2018 Eyes No eye discharge 12/19/2018 Eyes No eye erythema 12/19/2018 Ears/Nose/Throat/Neck No dizziness 12/19/2018 Ears/Nose/Throat/Neck No headache 12/19/2018 Cardiovascular No chest pain/pressure 12/19/2018 Respiratory cigarette smoking 12/19/2018 Respiratory cough 12/19/2018 Gastrointestinal No abdominal pain 12/19/2018 Gastrointestinal gas and bloating 12/19/2018 Genitourinary/Nephrology No dysuria 12/19/2018 Musculoskeletal No joint complaint 12/19/2018 Neurologic No alteration of consciousness 12/19/2018 Psychiatric depression 12/19/2018 Dermatologic No rash 12/19/2018 Musculoskeletal back pain 12/19/2018 Musculoskeletal neck pain 12/19/2018 Constitutional No recent illness 09/19/2018 Constitutional No anorexia 09/19/2018 Constitutional No night sweats 09/19/2018 Constitutional No chills 09/19/2018 Constitutional No diaphoresis 09/19/2018 Constitutional fatigue 09/19/2018 Constitutional No fever 09/19/2018 Constitutional No insomnia 09/19/2018 Constitutional No malaise 09/19/2018 Constitutional No weight loss 09/19/2018 Constitutional No weight gain 09/19/2018 Eyes No eye discharge 09/19/2018 Eyes No eye erythema 09/19/2018 Ears/Nose/Throat/Neck No dizziness 09/19/2018 Ears/Nose/Throat/Neck No headache 09/19/2018 Cardiovascular No chest pain/pressure 09/19/2018 Respiratory cigarette smoking 09/19/2018 Respiratory cough 09/19/2018 Gastrointestinal No abdominal pain 09/19/2018 Gastrointestinal gas and bloating 09/19/2018 Genitourinary/Nephrology No dysuria 09/19/2018 Musculoskeletal No joint complaint 09/19/2018 Dermatologic rash 09/19/2018 Neurologic No alteration of consciousness 09/19/2018 Psychiatric depression 09/19/2018 Constitutional No recent illness 06/16/2018 Constitutional No anorexia 06/16/2018 Constitutional No night sweats 06/16/2018 Constitutional No chills 06/16/2018 Constitutional No diaphoresis 06/16/2018 Constitutional fatigue 06/16/2018 Constitutional No fever 06/16/2018 Constitutional No insomnia 06/16/2018 Constitutional No malaise 06/16/2018 Constitutional No weight loss 06/16/2018 Constitutional No weight gain 06/16/2018 Eyes No eye discharge 06/16/2018 Eyes No eye erythema 06/16/2018 Ears/Nose/Throat/Neck No dizziness 06/16/2018 Ears/Nose/Throat/Neck No headache 06/16/2018 Cardiovascular No chest pain/pressure 06/16/2018 Respiratory cigarette smoking 06/16/2018 Respiratory cough 06/16/2018 Gastrointestinal No abdominal pain 06/16/2018 Gastrointestinal gas and bloating 06/16/2018 Genitourinary/Nephrology No dysuria 06/16/2018 Musculoskeletal No joint complaint 06/16/2018 Dermatologic rash 06/16/2018 Neurologic No alteration of consciousness 06/16/2018 Psychiatric depression 06/16/2018 Constitutional No recent illness 03/25/2018 Constitutional No anorexia 03/25/2018 Constitutional No night sweats 03/25/2018 Constitutional No chills 03/25/2018 Constitutional No diaphoresis 03/25/2018 Constitutional fatigue 03/25/2018 Constitutional No fever 03/25/2018 Constitutional No insomnia 03/25/2018 Constitutional No malaise 03/25/2018 Constitutional No weight loss 03/25/2018 Constitutional No weight gain 03/25/2018 Eyes No eye discharge 03/25/2018 Eyes No eye erythema 03/25/2018 Ears/Nose/Throat/Neck No dizziness 03/25/2018 Ears/Nose/Throat/Neck No headache 03/25/2018 Cardiovascular No chest pain/pressure 03/25/2018 Respiratory cigarette smoking 03/25/2018 Respiratory cough 03/25/2018 Gastrointestinal No abdominal pain 03/25/2018 Gastrointestinal gas and bloating 03/25/2018 Genitourinary/Nephrology No dysuria 03/25/2018 Musculoskeletal No joint complaint 03/25/2018 Dermatologic rash 03/25/2018 Neurologic No alteration of consciousness 03/25/2018 Psychiatric depression 03/25/2018 Constitutional No recent illness 12/03/2017 Constitutional No anorexia 12/03/2017 Constitutional No night sweats 12/03/2017 Constitutional No chills 12/03/2017 Constitutional No diaphoresis 12/03/2017 Constitutional fatigue 12/03/2017 Constitutional No fever 12/03/2017 Constitutional No insomnia 12/03/2017 Constitutional No malaise 12/03/2017 Constitutional No weight loss 12/03/2017 Constitutional No weight gain 12/03/2017 Eyes No eye discharge 12/03/2017 Eyes No eye erythema 12/03/2017 Ears/Nose/Throat/Neck No dizziness 12/03/2017 Ears/Nose/Throat/Neck No headache 12/03/2017 Cardiovascular No chest pain/pressure 12/03/2017 Respiratory cigarette smoking 12/03/2017 Respiratory cough 12/03/2017 Gastrointestinal No abdominal pain 12/03/2017 Gastrointestinal gas and bloating 12/03/2017 Genitourinary/Nephrology No dysuria 12/03/2017 Musculoskeletal No joint complaint 12/03/2017 Dermatologic No rash 12/03/2017 Neurologic No alteration of consciousness 12/03/2017 Psychiatric depression 12/03/2017 Musculoskeletal back pain 12/03/2017 Musculoskeletal myalgias 12/03/2017 Musculoskeletal neck pain 12/03/2017 Constitutional No recent illness 11/25/2017 Constitutional No anorexia 11/25/2017 Constitutional No night sweats 11/25/2017 Constitutional No chills 11/25/2017 Constitutional No diaphoresis 11/25/2017 Constitutional fatigue 11/25/2017 Constitutional No fever 11/25/2017 Constitutional No insomnia 11/25/2017 Constitutional No malaise 11/25/2017 Constitutional No weight loss 11/25/2017 Constitutional No weight gain 11/25/2017 Eyes No eye discharge 11/25/2017 Eyes No eye erythema 11/25/2017 Ears/Nose/Throat/Neck No dizziness 11/25/2017 Ears/Nose/Throat/Neck No headache 11/25/2017 Cardiovascular No chest pain/pressure 11/25/2017 Respiratory cigarette smoking 11/25/2017 Respiratory cough 11/25/2017 Gastrointestinal No abdominal pain 11/25/2017 Gastrointestinal gas and bloating 11/25/2017 Genitourinary/Nephrology No dysuria 11/25/2017 Musculoskeletal No joint complaint 11/25/2017 Dermatologic No rash 11/25/2017 Neurologic No alteration of consciousness 11/25/2017 Psychiatric depression 11/25/2017 Constitutional No recent illness 07/09/2017 Constitutional No anorexia 07/09/2017 Constitutional No night sweats 07/09/2017 Constitutional No chills 07/09/2017 Constitutional No diaphoresis 07/09/2017 Constitutional fatigue 07/09/2017 Constitutional No fever 07/09/2017 Constitutional No insomnia 07/09/2017 Constitutional No malaise 07/09/2017 Constitutional No weight loss 07/09/2017 Constitutional No weight gain 07/09/2017 Eyes No eye discharge 07/09/2017 Eyes No eye erythema 07/09/2017 Ears/Nose/Throat/Neck No dizziness 07/09/2017 Ears/Nose/Throat/Neck No headache 07/09/2017 Cardiovascular No chest pain/pressure 07/09/2017 Respiratory cigarette smoking 07/09/2017 Respiratory cough 07/09/2017 Gastrointestinal No abdominal pain 07/09/2017 Gastrointestinal gas and bloating 07/09/2017 Genitourinary/Nephrology No dysuria 07/09/2017 Musculoskeletal No joint complaint 07/09/2017 Neurologic No alteration of consciousness 07/09/2017 Psychiatric depression 07/09/2017 Dermatologic No rash 07/09/2017 Constitutional No recent illness 04/29/2017 Constitutional No anorexia 04/29/2017 Constitutional No night sweats 04/29/2017 Constitutional No chills 04/29/2017 Constitutional No diaphoresis 04/29/2017 Constitutional fatigue 04/29/2017 Constitutional No fever 04/29/2017 Constitutional No insomnia 04/29/2017 Constitutional No malaise 04/29/2017 Constitutional No weight loss 04/29/2017 Constitutional No weight gain 04/29/2017 Eyes No eye discharge 04/29/2017 Eyes No eye erythema 04/29/2017 Ears/Nose/Throat/Neck No dizziness 04/29/2017 Ears/Nose/Throat/Neck No headache 04/29/2017 Cardiovascular No chest pain/pressure 04/29/2017 Respiratory cigarette smoking 04/29/2017 Respiratory cough 04/29/2017 Gastrointestinal No abdominal pain 04/29/2017 Gastrointestinal gas and bloating 04/29/2017 Genitourinary/Nephrology No dysuria 04/29/2017 Musculoskeletal No joint complaint 04/29/2017 Dermatologic rash 04/29/2017 Neurologic No alteration of consciousness 04/29/2017 Psychiatric depression 04/29/2017 Constitutional No recent illness 01/07/2017 Constitutional No anorexia 01/07/2017 Constitutional No night sweats 01/07/2017 Constitutional No chills 01/07/2017 Constitutional No diaphoresis 01/07/2017 Constitutional No fatigue 01/07/2017 Constitutional No fever 01/07/2017 Constitutional No insomnia 01/07/2017 Constitutional No malaise 01/07/2017 Constitutional No weight loss 01/07/2017 Constitutional No weight gain 01/07/2017 Eyes No eye discharge 01/07/2017 Eyes No eye erythema 01/07/2017 Ears/Nose/Throat/Neck No dizziness 01/07/2017 Ears/Nose/Throat/Neck No headache 01/07/2017 Cardiovascular No chest pain/pressure 01/07/2017 Cardiovascular No dyspnea 01/07/2017 Cardiovascular No edema 01/07/2017 Respiratory No productive sputum 01/07/2017 Respiratory No chest congestion 01/07/2017 Respiratory cigarette smoking 01/07/2017 Respiratory cough 01/07/2017 Gastrointestinal No abdominal pain 01/07/2017 Gastrointestinal No constipation 01/07/2017 Gastrointestinal No diarrhea 01/07/2017 Genitourinary/Nephrology No dysuria 01/07/2017 Musculoskeletal joint complaint 01/07/2017 Dermatologic No rash 01/07/2017 Neurologic No alteration of consciousness 01/07/2017 Psychiatric anxiety 01/07/2017 Endocrine No dry or coarse skin 01/07/2017 Hematologic/Lymphatic No abnormal bleeding and bruising 01/07/2017 Constitutional No recent illness 09/08/2016 Constitutional No anorexia 09/08/2016 Constitutional No night sweats 09/08/2016 Constitutional No chills 09/08/2016 Constitutional No diaphoresis 09/08/2016 Constitutional No fatigue 09/08/2016 Constitutional No fever 09/08/2016 Constitutional No insomnia 09/08/2016 Constitutional No malaise 09/08/2016 Constitutional No weight loss 09/08/2016 Constitutional No weight gain 09/08/2016 Eyes No eye discharge 09/08/2016 Eyes No eye erythema 09/08/2016 Ears/Nose/Throat/Neck No dizziness 09/08/2016 Ears/Nose/Throat/Neck No headache 09/08/2016 Cardiovascular No chest pain/pressure 09/08/2016 Cardiovascular No dyspnea 09/08/2016 Cardiovascular No edema 09/08/2016 Respiratory No productive sputum 09/08/2016 Respiratory No chest congestion 09/08/2016 Respiratory cigarette smoking 09/08/2016 Respiratory cough 09/08/2016 Gastrointestinal No abdominal pain 09/08/2016 Gastrointestinal No constipation 09/08/2016 Gastrointestinal No diarrhea 09/08/2016 Genitourinary/Nephrology No dysuria 09/08/2016 Musculoskeletal No joint complaint 09/08/2016 Dermatologic No rash 09/08/2016 Neurologic No alteration of consciousness 09/08/2016 Psychiatric anxiety 09/08/2016 Endocrine No dry or coarse skin 09/08/2016 Hematologic/Lymphatic No abnormal bleeding and bruising 09/08/2016 Constitutional No recent illness 05/11/2016 Constitutional No anorexia 05/11/2016 Constitutional No night sweats 05/11/2016 Constitutional No chills 05/11/2016 Constitutional No diaphoresis 05/11/2016 Constitutional No fatigue 05/11/2016 Constitutional No fever 05/11/2016 Constitutional No insomnia 05/11/2016 Constitutional No malaise 05/11/2016 Constitutional No weight loss 05/11/2016 Constitutional No weight gain 05/11/2016 Eyes No eye discharge 05/11/2016 Eyes No eye erythema 05/11/2016 Ears/Nose/Throat/Neck No dizziness 05/11/2016 Ears/Nose/Throat/Neck No headache 05/11/2016 Cardiovascular No chest pain/pressure 05/11/2016 Cardiovascular No dyspnea 05/11/2016 Cardiovascular No edema 05/11/2016 Respiratory No productive sputum 05/11/2016 Respiratory No chest congestion 05/11/2016 Respiratory cigarette smoking 05/11/2016 Respiratory cough 05/11/2016 Gastrointestinal No abdominal pain 05/11/2016 Gastrointestinal No constipation 05/11/2016 Gastrointestinal No diarrhea 05/11/2016 Genitourinary/Nephrology No dysuria 05/11/2016 Musculoskeletal No joint complaint 05/11/2016 Dermatologic No rash 05/11/2016 Neurologic No alteration of consciousness 05/11/2016 Psychiatric anxiety 05/11/2016 Endocrine No dry or coarse skin 05/11/2016 Hematologic/Lymphatic No abnormal bleeding and bruising 05/11/2016 Constitutional No recent illness 02/10/2016 Constitutional No anorexia 02/10/2016 Constitutional No night sweats 02/10/2016 Constitutional No chills 02/10/2016 Constitutional No diaphoresis 02/10/2016 Constitutional No fatigue 02/10/2016 Constitutional No fever 02/10/2016 Constitutional No insomnia 02/10/2016 Constitutional No malaise 02/10/2016 Constitutional No weight loss 02/10/2016 Constitutional No weight gain 02/10/2016 Eyes No eye discharge 02/10/2016 Eyes No eye erythema 02/10/2016 Ears/Nose/Throat/Neck No dizziness 02/10/2016 Ears/Nose/Throat/Neck No headache 02/10/2016 Cardiovascular No chest pain/pressure 02/10/2016 Cardiovascular No dyspnea 02/10/2016 Cardiovascular No edema 02/10/2016 Respiratory No productive sputum 02/10/2016 Respiratory No chest congestion 02/10/2016 Respiratory cigarette smoking 02/10/2016 Respiratory cough 02/10/2016 Gastrointestinal No abdominal pain 02/10/2016 Gastrointestinal No constipation 02/10/2016 Gastrointestinal No diarrhea 02/10/2016 Genitourinary/Nephrology No dysuria 02/10/2016 Dermatologic No rash 02/10/2016 Neurologic No alteration of consciousness 02/10/2016 Psychiatric anxiety 02/10/2016 Endocrine No dry or coarse skin 02/10/2016 Hematologic/Lymphatic No abnormal bleeding and bruising 02/10/2016 Musculoskeletal No joint complaint 02/10/2016 Constitutional No fever 12/18/2015 Eyes No eye discharge 12/18/2015 Eyes No eye erythema 12/18/2015 Ears/Nose/Throat/Neck No nasal allergies 12/18/2015 Ears/Nose/Throat/Neck No nasal discharge 12/18/2015 Cardiovascular No chest pain/pressure 12/18/2015 Cardiovascular No dyspnea 12/18/2015 Respiratory No chest congestion 12/18/2015 Respiratory No cough 12/18/2015 Gastrointestinal No abdominal pain 12/18/2015 Musculoskeletal joint complaint 12/18/2015 Dermatologic No rash 12/18/2015 Neurologic No alteration of consciousness 12/18/2015 Neurologic No mental status change 12/18/2015 Constitutional No fever 12/16/2015 Constitutional No insomnia 12/16/2015 Eyes No eye discharge 12/16/2015 Eyes No eye erythema 12/16/2015 Cardiovascular No chest pain/pressure 12/16/2015 Cardiovascular No dyspnea 12/16/2015 Respiratory No chest congestion 12/16/2015 Musculoskeletal joint complaint 12/16/2015 Dermatologic No rash 12/16/2015 Neurologic No alteration of consciousness 12/16/2015 Ears/Nose/Throat/Neck No nasal allergies 12/16/2015 Ears/Nose/Throat/Neck No nasal discharge 12/16/2015 Respiratory No cough 12/16/2015 Neurologic No mental status change 12/16/2015 Gastrointestinal No abdominal pain 12/16/2015 Constitutional No recent illness 12/09/2015 Constitutional No anorexia 12/09/2015 Constitutional No night sweats 12/09/2015 Constitutional No chills 12/09/2015 Constitutional No diaphoresis 12/09/2015 Constitutional No fatigue 12/09/2015 Constitutional No fever 12/09/2015 Constitutional No insomnia 12/09/2015 Constitutional No malaise 12/09/2015 Constitutional No weight loss 12/09/2015 Constitutional No weight gain 12/09/2015 Eyes No eye discharge 12/09/2015 Eyes No eye erythema 12/09/2015 Ears/Nose/Throat/Neck No dizziness 12/09/2015 Ears/Nose/Throat/Neck No headache 12/09/2015 Cardiovascular No chest pain/pressure 12/09/2015 Cardiovascular No dyspnea 12/09/2015 Cardiovascular No edema 12/09/2015 Respiratory No productive sputum 12/09/2015 Respiratory No chest congestion 12/09/2015 Respiratory cough 12/09/2015 Gastrointestinal No abdominal pain 12/09/2015 Gastrointestinal No constipation 12/09/2015 Gastrointestinal No diarrhea 12/09/2015 Genitourinary/Nephrology No dysuria 12/09/2015 Dermatologic No rash 12/09/2015 Neurologic No alteration of consciousness 12/09/2015 Psychiatric anxiety 12/09/2015 Endocrine No dry or coarse skin 12/09/2015 Hematologic/Lymphatic No abnormal bleeding and bruising 12/09/2015 Musculoskeletal joint complaint 12/09/2015 Respiratory cigarette smoking 12/09/2015 Psychiatric anxiety 10/28/2015 Constitutional No recent illness 10/28/2015 Constitutional No anorexia 10/28/2015 Constitutional No night sweats 10/28/2015 Constitutional No chills 10/28/2015 Constitutional No diaphoresis 10/28/2015 Constitutional No fatigue 10/28/2015 Constitutional No fever 10/28/2015 Constitutional No insomnia 10/28/2015 Constitutional No malaise 10/28/2015 Constitutional No weight loss 10/28/2015 Constitutional weight gain 10/28/2015 Eyes No eye discharge 10/28/2015 Eyes No eye erythema 10/28/2015 Ears/Nose/Throat/Neck No dizziness 10/28/2015 Ears/Nose/Throat/Neck No headache 10/28/2015 Cardiovascular No chest pain/pressure 10/28/2015 Cardiovascular No dyspnea 10/28/2015 Cardiovascular No edema 10/28/2015 Respiratory No productive sputum 10/28/2015 Respiratory No chest congestion 10/28/2015 Respiratory cough 10/28/2015 Gastrointestinal No abdominal pain 10/28/2015 Gastrointestinal No constipation 10/28/2015 Gastrointestinal No diarrhea 10/28/2015 Genitourinary/Nephrology No dysuria 10/28/2015 Musculoskeletal back pain 10/28/2015 Dermatologic No rash 10/28/2015 Neurologic No alteration of consciousness 10/28/2015 Endocrine No dry or coarse skin 10/28/2015 Hematologic/Lymphatic No abnormal bleeding and bruising 10/28/2015 Constitutional No recent illness 08/26/2015 Constitutional No anorexia 08/26/2015 Constitutional No night sweats 08/26/2015 Constitutional No chills 08/26/2015 Constitutional No diaphoresis 08/26/2015 Constitutional No fatigue 08/26/2015 Constitutional No fever 08/26/2015 Constitutional No insomnia 08/26/2015 Constitutional No malaise 08/26/2015 Constitutional No weight loss 08/26/2015 Constitutional weight gain 08/26/2015 Eyes No eye discharge 08/26/2015 Eyes No eye erythema 08/26/2015 Ears/Nose/Throat/Neck No dizziness 08/26/2015 Ears/Nose/Throat/Neck No headache 08/26/2015 Cardiovascular No chest pain/pressure 08/26/2015 Cardiovascular No edema 08/26/2015 Respiratory No productive sputum 08/26/2015 Respiratory No chest congestion 08/26/2015 Respiratory cough 08/26/2015 Respiratory dyspnea on exertion 08/26/2015 Gastrointestinal No abdominal pain 08/26/2015 Gastrointestinal No constipation 08/26/2015 Gastrointestinal No diarrhea 08/26/2015 Genitourinary/Nephrology No dysuria 08/26/2015 Musculoskeletal No joint complaint 08/26/2015 Dermatologic No rash 08/26/2015 Neurologic No alteration of consciousness 08/26/2015 Constitutional No recent illness 02/12/2015 Constitutional No anorexia 02/12/2015 Constitutional No night sweats 02/12/2015 Constitutional No chills 02/12/2015 Constitutional No diaphoresis 02/12/2015 Constitutional No fatigue 02/12/2015 Constitutional No fever 02/12/2015 Constitutional No insomnia 02/12/2015 Eyes No eye discharge 02/12/2015 Eyes No eye erythema 02/12/2015 Ears/Nose/Throat/Neck No nasal allergies 02/12/2015 Ears/Nose/Throat/Neck No nasal discharge 02/12/2015 Respiratory No cough 02/12/2015 Genitourinary/Nephrology No dysuria 02/12/2015 Musculoskeletal No joint complaint 02/12/2015 Psychiatric No anxiety 02/12/2015 Psychiatric No depression 02/12/2015 Cardiovascular No chest pain/pressure 02/12/2015 Cardiovascular No dyspnea 02/12/2015 Cardiovascular No edema 02/12/2015 Cardiovascular No exercise intolerance 02/12/2015 Cardiovascular No fatigue 02/12/2015 Cardiovascular No near-syncope/dizziness 02/12/2015 Gastrointestinal No hemorrhoids 02/12/2015 Gastrointestinal No abdominal pain 02/12/2015 Gastrointestinal No constipation 02/12/2015 Gastrointestinal No diarrhea 02/12/2015 Gastrointestinal No gastroesophageal reflux 02/12/2015 Gastrointestinal No melena 02/12/2015 Gastrointestinal No nausea 02/12/2015 Gastrointestinal No vomiting 02/12/2015 Neurologic No dizziness 02/12/2015 Neurologic No headache 02/12/2015 Neurologic No neck pain 02/12/2015 Neurologic No syncope 02/12/2015 Constitutional recent illness 11/12/2014 Constitutional No diaphoresis 11/12/2014 Constitutional fatigue 11/12/2014 Constitutional No fever 11/12/2014 Constitutional No insomnia 11/12/2014 Constitutional malaise 11/12/2014 Eyes No eye discharge 11/12/2014 Eyes No eye erythema 11/12/2014 Ears/Nose/Throat/Neck No dizziness 11/12/2014 Ears/Nose/Throat/Neck headache 11/12/2014 Cardiovascular No chest pain/pressure 11/12/2014 Cardiovascular dyspnea 11/12/2014 Cardiovascular No edema 11/12/2014 Respiratory cigarette smoking 11/12/2014 Respiratory cough 11/12/2014 Gastrointestinal No constipation 11/12/2014 Gastrointestinal No diarrhea 11/12/2014 Gastrointestinal No nausea 11/12/2014 Gastrointestinal No vomiting 11/12/2014 Genitourinary/Nephrology No dysuria 11/12/2014 Musculoskeletal No joint complaint 11/12/2014 Dermatologic No rash 11/12/2014 Dermatologic No sores 11/12/2014 Ears/Nose/Throat/Neck facial pain 11/12/2014 Ears/Nose/Throat/Neck nasal discharge 11/12/2014 Cardiovascular fatigue 11/12/2014 Constitutional recent illness 07/23/2014 Constitutional No anorexia 07/23/2014 Constitutional No night sweats 07/23/2014 Constitutional No chills 07/23/2014 Constitutional No diaphoresis 07/23/2014 Constitutional No fatigue 07/23/2014 Constitutional No fever 07/23/2014 Constitutional No insomnia 07/23/2014 Constitutional No malaise 07/23/2014 Constitutional No weight gain 07/23/2014 Constitutional No weight loss 07/23/2014 Eyes No eye discharge 07/23/2014 Eyes No eye erythema 07/23/2014 Ears/Nose/Throat/Neck No dizziness 07/23/2014 Ears/Nose/Throat/Neck No headache 07/23/2014 Cardiovascular No chest pain/pressure 07/23/2014 Cardiovascular No dyspnea 07/23/2014 Cardiovascular No edema 07/23/2014 Respiratory No productive sputum 07/23/2014 Respiratory No chest congestion 07/23/2014 Respiratory No cough 07/23/2014 Genitourinary/Nephrology No dysuria 07/23/2014 Musculoskeletal No joint complaint 07/23/2014 Dermatologic No sores 07/23/2014 Dermatologic No rash 07/23/2014 Neurologic No alteration of consciousness 07/23/2014 Psychiatric No anxiety 07/23/2014 Psychiatric No depression 07/23/2014 Constitutional No recent illness 03/21/2014 Constitutional No chills 03/21/2014 Constitutional No night sweats 03/21/2014 Constitutional No anorexia 03/21/2014 Constitutional No fatigue 03/21/2014 Constitutional No diaphoresis 03/21/2014 Constitutional No fever 03/21/2014 Constitutional No insomnia 03/21/2014 Constitutional No malaise 03/21/2014 Constitutional No weight loss 03/21/2014 Constitutional No weight gain 03/21/2014 Cardiovascular No chest pain/pressure 03/21/2014 Respiratory No cough 03/21/2014 Gastrointestinal No abdominal pain 03/21/2014 Gastrointestinal No constipation 03/21/2014 Gastrointestinal No diarrhea 03/21/2014 Gastrointestinal No nausea 03/21/2014 Gastrointestinal No vomiting 03/21/2014 Musculoskeletal No joint complaint 03/21/2014 Dermatologic No sores 03/21/2014 Neurologic No alteration of consciousness 03/21/2014 Ears/Nose/Throat/Neck No dizziness 03/21/2014 Ears/Nose/Throat/Neck No headache 03/21/2014 Cardiovascular No chest pain/pressure 01/25/2014 Cardiovascular No dyspnea 01/25/2014 Cardiovascular No edema 01/25/2014 Constitutional No recent illness 01/25/2014 Constitutional No anorexia 01/25/2014 Constitutional No night sweats 01/25/2014 Constitutional No chills 01/25/2014 Constitutional No diaphoresis 01/25/2014 Constitutional fatigue 01/25/2014 Constitutional No fever 01/25/2014 Constitutional No insomnia 01/25/2014 Constitutional No malaise 01/25/2014 Constitutional weight loss 01/25/2014 Constitutional No weight gain 01/25/2014 Eyes No eye discharge 01/25/2014 Eyes No eye erythema 01/25/2014 Ears/Nose/Throat/Neck No headache 01/25/2014 Ears/Nose/Throat/Neck No dizziness 01/25/2014 Respiratory No cough 01/25/2014 Respiratory cigarette smoking 01/25/2014 Gastrointestinal No constipation 01/25/2014 Gastrointestinal No diarrhea 01/25/2014 Gastrointestinal No nausea 01/25/2014 Gastrointestinal No vomiting 01/25/2014 Genitourinary/Nephrology No dysuria 01/25/2014 Musculoskeletal No joint complaint 01/25/2014 Dermatologic No rash 01/25/2014 Dermatologic No sores 01/25/2014 Constitutional No recent illness 10/23/2013 Constitutional No anorexia 10/23/2013 Constitutional No night sweats 10/23/2013 Constitutional No chills 10/23/2013 Constitutional No diaphoresis 10/23/2013 Constitutional No fatigue 10/23/2013 Constitutional No fever 10/23/2013 Constitutional No insomnia 10/23/2013 Eyes No eye discharge 10/23/2013 Eyes No eye erythema 10/23/2013 Ears/Nose/Throat/Neck No nasal allergies 10/23/2013 Ears/Nose/Throat/Neck No nasal discharge 10/23/2013 Respiratory No cough 10/23/2013 Genitourinary/Nephrology No dysuria 10/23/2013 Musculoskeletal No joint complaint 10/23/2013 Psychiatric No anxiety 10/23/2013 Psychiatric No depression 10/23/2013 Constitutional No recent illness 08/21/2013 Constitutional No anorexia 08/21/2013 Constitutional No night sweats 08/21/2013 Constitutional No chills 08/21/2013 Constitutional No diaphoresis 08/21/2013 Constitutional No fatigue 08/21/2013 Constitutional No fever 08/21/2013 Constitutional No insomnia 08/21/2013 Eyes No eye discharge 08/21/2013 Eyes No eye erythema 08/21/2013 Ears/Nose/Throat/Neck No nasal discharge 08/21/2013 Ears/Nose/Throat/Neck No nasal allergies 08/21/2013 Respiratory No cough 08/21/2013 Genitourinary/Nephrology No dysuria 08/21/2013 Musculoskeletal No joint complaint 08/21/2013 Constitutional No recent illness 07/20/2013 Constitutional No anorexia 07/20/2013 Constitutional No fatigue 07/20/2013 Constitutional No fever 07/20/2013 Eyes No eye discharge 07/20/2013 Eyes No eye erythema 07/20/2013 Ears/Nose/Throat/Neck No dizziness 07/20/2013 Ears/Nose/Throat/Neck No headache 07/20/2013 Cardiovascular No chest pain/pressure 07/20/2013 Respiratory No productive sputum 07/20/2013 Respiratory No cough 07/20/2013 Gastrointestinal No abdominal pain 07/20/2013 Gastrointestinal No constipation 07/20/2013 Gastrointestinal No diarrhea 07/20/2013 Gastrointestinal gastroesophageal reflux 07/20/2013 Gastrointestinal dyspepsia 07/20/2013 Gastrointestinal No nausea 07/20/2013 Gastrointestinal No vomiting 07/20/2013 Genitourinary/Nephrology No dysuria 07/20/2013 Musculoskeletal myalgias 07/20/2013 Musculoskeletal joint complaint 07/20/2013 Musculoskeletal No swelling 07/20/2013 Dermatologic No rash 07/20/2013 Dermatologic No sores 07/20/2013 Constitutional No recent illness 06/22/2013 Constitutional No chills 06/22/2013 Constitutional No fever 06/22/2013 Eyes No eye discharge 06/22/2013 Eyes No eye erythema 06/22/2013 Cardiovascular No dyspnea 06/22/2013 Gastrointestinal No dyspepsia 06/22/2013 Gastrointestinal No abdominal pain 06/22/2013 Gastrointestinal No constipation 06/22/2013 Gastrointestinal No diarrhea 06/22/2013 Gastrointestinal No vomiting 06/22/2013 Cardiovascular No chest pain/pressure 06/22/2013 Cardiovascular No edema 06/22/2013 Cardiovascular No exercise intolerance 06/22/2013 Cardiovascular palpitations 06/22/2013 Cardiovascular hypertension 06/22/2013 Respiratory No cough 06/22/2013 Respiratory No dyspnea 06/22/2013 Respiratory No pedal edema 06/22/2013 Genitourinary/Nephrology No dysuria 06/22/2013 Genitourinary/Nephrology No pelvic pain 06/22/2013 Dermatologic No rash 06/22/2013 Dermatologic No sores 06/22/2013 Musculoskeletal joint complaint 06/22/2013 Psychiatric No anxiety 06/22/2013 Psychiatric depression 06/22/2013 Neurologic No headache 06/22/2013 Neurologic No hearing loss 06/22/2013 Neurologic No dizziness 06/22/2013 Ears/Nose/Throat/Neck tinnitus 06/22/2013 Ears/Nose/Throat/Neck No otalgia 06/22/2013 Ears/Nose/Throat/Neck No sore throat 06/22/2013 Ears/Nose/Throat/Neck No nasal discharge 06/22/2013 Ears/Nose/Throat/Neck nasal allergies 06/22/2013 Psychiatric No suicidality 06/22/2013 Physical Exam Exam Name System Name Item Name Status Result Effective Dates Notes Full Exam - General 1994 Constitutional general appearance Overall: well developed 12/19/2018 None Full Exam - General 1994 Constitutional general appearance Overall: in no acute distress 12/19/2018 None Full Exam - General 1994 Constitutional general appearance Overall: well nourished 12/19/2018 None Full Exam - General 1994 Constitutional general appearance Hygiene/Attention to Grooming: smells of tobacco 12/19/2018 None Full Exam - General 1994 Eyes conjunctiva/eyelids Overall: conjunctiva clear 12/19/2018 None Full Exam - General 1994 Eyes conjunctiva/eyelids Overall: cornea clear 12/19/2018 None Full Exam - General 1994 Eyes conjunctiva/eyelids Overall: eyelids normal 12/19/2018 None Full Exam - General 1994 Eyes pupils and irises Overall: pupils equal, round, reactive to light and accomodation 12/19/2018 None Full Exam - General 1994 Ears/Nose/Throat oral cavity/pharynx/larynx Overall: oral mucosa clear 12/19/2018 None Full Exam - General 1994 Ears/Nose/Throat oral cavity/pharynx/larynx Overall: oropharyngeal mucosa clear 12/19/2018 None Full Exam - General 1994 Ears/Nose/Throat oral cavity/pharynx/larynx Overall: no masses 12/19/2018 None Full Exam - General 1994 Respiratory auscultation Overall: breath sounds clear bilaterally 12/19/2018 None Full Exam - General 1994 Respiratory auscultation Basilar: diminished 12/19/2018 None Full Exam - General 1994 Respiratory respiratory effort/rhythm Overall: no retractions 12/19/2018 None Full Exam - General 1994 Respiratory respiratory effort/rhythm Overall: normal rate 12/19/2018 None Full Exam - General 1994 Cardiovascular auscultation of heart Overall: regular rate 12/19/2018 None Full Exam - General 1994 Cardiovascular auscultation of heart Overall: normal heart sounds 12/19/2018 None Full Exam - General 1994 Cardiovascular auscultation of heart Overall: no murmurs 12/19/2018 None Full Exam - General 1994 Abdomen abdominal exam Overall: no tenderness 12/19/2018 None Full Exam - General 1994 Abdomen abdominal exam Overall: normal bowel sounds 12/19/2018 None Full Exam - General 1994 Lymphatic neck nodes Overall: anterior cervical chain benign 12/19/2018 None Full Exam - General 1994 Lymphatic neck nodes Overall: posterior cervical chain benign 12/19/2018 None Full Exam - General 1994 Neurologic cranial nerves Overall: crainial nerves 2 - 12 grossly intact 12/19/2018 None Full Exam - General 1994 Psychiatric orientation/consciousness Overall: oriented to person, place and time 12/19/2018 None Full Exam - General 1994 Integument inspection of skin Overall: few scattered moles, no gross abnormalities 12/19/2018 None Full Exam - General 1994 Constitutional general appearance Overall: well developed 09/19/2018 None Full Exam - General 1994 Constitutional general appearance Overall: in no acute distress 09/19/2018 None Full Exam - General 1994 Constitutional general appearance Overall: well nourished 09/19/2018 None Full Exam - General 1994 Constitutional general appearance Hygiene/Attention to Grooming: smells of tobacco 09/19/2018 None Full Exam - General 1994 Eyes conjunctiva/eyelids Overall: conjunctiva clear 09/19/2018 None Full Exam - General 1994 Eyes conjunctiva/eyelids Overall: cornea clear 09/19/2018 None Full Exam - General 1994 Eyes conjunctiva/eyelids Overall: eyelids normal 09/19/2018 None Full Exam - General 1994 Eyes pupils and irises Overall: pupils equal, round, reactive to light and accomodation 09/19/2018 None Full Exam - General 1994 Ears/Nose/Throat oral cavity/pharynx/larynx Overall: oral mucosa clear 09/19/2018 None Full Exam - General 1994 Ears/Nose/Throat oral cavity/pharynx/larynx Overall: oropharyngeal mucosa clear 09/19/2018 None Full Exam - General 1994 Ears/Nose/Throat oral cavity/pharynx/larynx Overall: no masses 09/19/2018 None Full Exam - General 1994 Respiratory auscultation Overall: breath sounds clear bilaterally 09/19/2018 None Full Exam - General 1994 Respiratory auscultation Basilar: diminished 09/19/2018 None Full Exam - General 1994 Respiratory respiratory effort/rhythm Overall: no retractions 09/19/2018 None Full Exam - General 1994 Respiratory respiratory effort/rhythm Overall: normal rate 09/19/2018 None Full Exam - General 1994 Cardiovascular auscultation of heart Overall: regular rate 09/19/2018 None Full Exam - General 1994 Cardiovascular auscultation of heart Overall: normal heart sounds 09/19/2018 None Full Exam - General 1994 Cardiovascular auscultation of heart Overall: no murmurs 09/19/2018 None Full Exam - General 1994 Abdomen abdominal exam Overall: no tenderness 09/19/2018 None Full Exam - General 1994 Abdomen abdominal exam Overall: normal bowel sounds 09/19/2018 None Full Exam - General 1994 Lymphatic neck nodes Overall: anterior cervical chain benign 09/19/2018 None Full Exam - General 1994 Lymphatic neck nodes Overall: posterior cervical chain benign 09/19/2018 None Full Exam - General 1994 Neurologic cranial nerves Overall: crainial nerves 2 - 12 grossly intact 09/19/2018 None Full Exam - General 1994 Psychiatric orientation/consciousness Overall: oriented to person, place and time 09/19/2018 None Full Exam - General 1994 Integument inspection of skin Rash/Lesions: patch 09/19/2018 None Full Exam - General 1994 Constitutional general appearance Overall: well developed 06/16/2018 None Full Exam - General 1994 Constitutional general appearance Overall: in no acute distress 06/16/2018 None Full Exam - General 1994 Constitutional general appearance Overall: well nourished 06/16/2018 None Full Exam - General 1994 Constitutional general appearance Hygiene/Attention to Grooming: smells of tobacco 06/16/2018 None Full Exam - General 1994 Eyes conjunctiva/eyelids Overall: conjunctiva clear 06/16/2018 None Full Exam - General 1994 Eyes conjunctiva/eyelids Overall: cornea clear 06/16/2018 None Full Exam - General 1994 Eyes conjunctiva/eyelids Overall: eyelids normal 06/16/2018 None Full Exam - General 1994 Eyes pupils and irises Overall: pupils equal, round, reactive to light and accomodation 06/16/2018 None Full Exam - General 1994 Ears/Nose/Throat oral cavity/pharynx/larynx Overall: oral mucosa clear 06/16/2018 None Full Exam - General 1994 Ears/Nose/Throat oral cavity/pharynx/larynx Overall: oropharyngeal mucosa clear 06/16/2018 None Full Exam - General 1994 Ears/Nose/Throat oral cavity/pharynx/larynx Overall: no masses 06/16/2018 None Full Exam - General 1994 Respiratory auscultation Overall: breath sounds clear bilaterally 06/16/2018 None Full Exam - General 1994 Respiratory auscultation Basilar: diminished 06/16/2018 None Full Exam - General 1994 Respiratory respiratory effort/rhythm Overall: no retractions 06/16/2018 None Full Exam - General 1994 Respiratory respiratory effort/rhythm Overall: normal rate 06/16/2018 None Full Exam - General 1994 Cardiovascular auscultation of heart Overall: regular rate 06/16/2018 None Full Exam - General 1994 Cardiovascular auscultation of heart Overall: normal heart sounds 06/16/2018 None Full Exam - General 1994 Cardiovascular auscultation of heart Overall: no murmurs 06/16/2018 None Full Exam - General 1994 Abdomen abdominal exam Overall: no tenderness 06/16/2018 None Full Exam - General 1994 Abdomen abdominal exam Overall: normal bowel sounds 06/16/2018 None Full Exam - General 1994 Lymphatic neck nodes Overall: anterior cervical chain benign 06/16/2018 None Full Exam - General 1994 Lymphatic neck nodes Overall: posterior cervical chain benign 06/16/2018 None Full Exam - General 1994 Neurologic cranial nerves Overall: crainial nerves 2 - 12 grossly intact 06/16/2018 None Full Exam - General 1994 Psychiatric orientation/consciousness Overall: oriented to person, place and time 06/16/2018 None Full Exam - General 1994 Integument inspection of skin Overall: few scattered moles, no gross abnormalities 06/16/2018 None Full Exam - General 1994 Constitutional general appearance Overall: well developed 03/25/2018 None Full Exam - General 1994 Constitutional general appearance Overall: in no acute distress 03/25/2018 None Full Exam - General 1994 Constitutional general appearance Overall: well nourished 03/25/2018 None Full Exam - General 1994 Constitutional general appearance Hygiene/Attention to Grooming: smells of tobacco 03/25/2018 None Full Exam - General 1994 Eyes conjunctiva/eyelids Overall: conjunctiva clear 03/25/2018 None Full Exam - General 1994 Eyes conjunctiva/eyelids Overall: cornea clear 03/25/2018 None Full Exam - General 1994 Eyes conjunctiva/eyelids Overall: eyelids normal 03/25/2018 None Full Exam - General 1994 Eyes pupils and irises Overall: pupils equal, round, reactive to light and accomodation 03/25/2018 None Full Exam - General 1994 Ears/Nose/Throat oral cavity/pharynx/larynx Overall: oral mucosa clear 03/25/2018 None Full Exam - General 1994 Ears/Nose/Throat oral cavity/pharynx/larynx Overall: oropharyngeal mucosa clear 03/25/2018 None Full Exam - General 1994 Ears/Nose/Throat oral cavity/pharynx/larynx Overall: no masses 03/25/2018 None Full Exam - General 1994 Respiratory auscultation Overall: breath sounds clear bilaterally 03/25/2018 None Full Exam - General 1994 Respiratory auscultation Basilar: diminished 03/25/2018 None Full Exam - General 1994 Respiratory respiratory effort/rhythm Overall: no retractions 03/25/2018 None Full Exam - General 1994 Respiratory respiratory effort/rhythm Overall: normal rate 03/25/2018 None Full Exam - General 1994 Cardiovascular auscultation of heart Overall: regular rate 03/25/2018 None Full Exam - General 1994 Cardiovascular auscultation of heart Overall: normal heart sounds 03/25/2018 None Full Exam - General 1994 Cardiovascular auscultation of heart Overall: no murmurs 03/25/2018 None Full Exam - General 1994 Abdomen abdominal exam Overall: no tenderness 03/25/2018 None Full Exam - General 1994 Abdomen abdominal exam Overall: normal bowel sounds 03/25/2018 None Full Exam - General 1994 Lymphatic neck nodes Overall: anterior cervical chain benign 03/25/2018 None Full Exam - General 1994 Lymphatic neck nodes Overall: posterior cervical chain benign 03/25/2018 None Full Exam - General 1994 Neurologic cranial nerves Overall: crainial nerves 2 - 12 grossly intact 03/25/2018 None Full Exam - General 1994 Psychiatric orientation/consciousness Overall: oriented to person, place and time 03/25/2018 None Full Exam - General 1994 Integument inspection of skin Location: abdomen 03/25/2018 None Full Exam - General 1994 Integument inspection of skin Rash/Lesions: patch 03/25/2018 None Full Exam - General 1994 Constitutional general appearance Overall: well developed 12/03/2017 None Full Exam - General 1994 Constitutional general appearance Overall: in no acute distress 12/03/2017 None Full Exam - General 1994 Constitutional general appearance Overall: well nourished 12/03/2017 None Full Exam - General 1994 Constitutional general appearance Hygiene/Attention to Grooming: smells of tobacco 12/03/2017 None Full Exam - General 1994 Eyes conjunctiva/eyelids Overall: conjunctiva clear 12/03/2017 None Full Exam - General 1994 Eyes conjunctiva/eyelids Overall: cornea clear 12/03/2017 None Full Exam - General 1994 Eyes conjunctiva/eyelids Overall: eyelids normal 12/03/2017 None Full Exam - General 1994 Eyes pupils and irises Overall: pupils equal, round, reactive to light and accomodation 12/03/2017 None Full Exam - General 1994 Ears/Nose/Throat oral cavity/pharynx/larynx Overall: oral mucosa clear 12/03/2017 None Full Exam - General 1994 Ears/Nose/Throat oral cavity/pharynx/larynx Overall: oropharyngeal mucosa clear 12/03/2017 None Full Exam - General 1994 Ears/Nose/Throat oral cavity/pharynx/larynx Overall: no masses 12/03/2017 None Full Exam - General 1994 Respiratory auscultation Overall: breath sounds clear bilaterally 12/03/2017 None Full Exam - General 1994 Respiratory auscultation Basilar: diminished 12/03/2017 None Full Exam - General 1994 Respiratory respiratory effort/rhythm Overall: no retractions 12/03/2017 None Full Exam - General 1994 Respiratory respiratory effort/rhythm Overall: normal rate 12/03/2017 None Full Exam - General 1994 Cardiovascular auscultation of heart Overall: regular rate 12/03/2017 None Full Exam - General 1994 Cardiovascular auscultation of heart Overall: normal heart sounds 12/03/2017 None Full Exam - General 1994 Cardiovascular auscultation of heart Overall: no murmurs 12/03/2017 None Full Exam - General 1994 Abdomen abdominal exam Overall: no tenderness 12/03/2017 None Full Exam - General 1994 Abdomen abdominal exam Overall: normal bowel sounds 12/03/2017 None Full Exam - General 1994 Lymphatic neck nodes Overall: anterior cervical chain benign 12/03/2017 None Full Exam - General 1994 Lymphatic neck nodes Overall: posterior cervical chain benign 12/03/2017 None Full Exam - General 1994 Neurologic cranial nerves Overall: crainial nerves 2 - 12 grossly intact 12/03/2017 None Full Exam - General 1994 Psychiatric orientation/consciousness Overall: oriented to person, place and time 12/03/2017 None Full Exam - General 1994 Constitutional general appearance Overall: well developed 11/25/2017 None Full Exam - General 1994 Constitutional general appearance Overall: in no acute distress 11/25/2017 None Full Exam - General 1994 Constitutional general appearance Overall: well nourished 11/25/2017 None Full Exam - General 1994 Constitutional general appearance Hygiene/Attention to Grooming: smells of tobacco 11/25/2017 None Full Exam - General 1994 Eyes conjunctiva/eyelids Overall: conjunctiva clear 11/25/2017 None Full Exam - General 1994 Eyes conjunctiva/eyelids Overall: cornea clear 11/25/2017 None Full Exam - General 1994 Eyes conjunctiva/eyelids Overall: eyelids normal 11/25/2017 None Full Exam - General 1994 Eyes pupils and irises Overall: pupils equal, round, reactive to light and accomodation 11/25/2017 None Full Exam - General 1994 Ears/Nose/Throat oral cavity/pharynx/larynx Overall: oral mucosa clear 11/25/2017 None Full Exam - General 1994 Ears/Nose/Throat oral cavity/pharynx/larynx Overall: oropharyngeal mucosa clear 11/25/2017 None Full Exam - General 1994 Ears/Nose/Throat oral cavity/pharynx/larynx Overall: no masses 11/25/2017 None Full Exam - General 1994 Respiratory auscultation Overall: breath sounds clear bilaterally 11/25/2017 None Full Exam - General 1994 Respiratory auscultation Basilar: diminished 11/25/2017 None Full Exam - General 1994 Respiratory respiratory effort/rhythm Overall: no retractions 11/25/2017 None Full Exam - General 1994 Respiratory respiratory effort/rhythm Overall: normal rate 11/25/2017 None Full Exam - General 1994 Cardiovascular auscultation of heart Overall: regular rate 11/25/2017 None Full Exam - General 1994 Cardiovascular auscultation of heart Overall: normal heart sounds 11/25/2017 None Full Exam - General 1994 Cardiovascular auscultation of heart Overall: no murmurs 11/25/2017 None Full Exam - General 1994 Abdomen abdominal exam Overall: no tenderness 11/25/2017 None Full Exam - General 1994 Abdomen abdominal exam Overall: normal bowel sounds 11/25/2017 None Full Exam - General 1994 Lymphatic neck nodes Overall: anterior cervical chain benign 11/25/2017 None Full Exam - General 1994 Lymphatic neck nodes Overall: posterior cervical chain benign 11/25/2017 None Full Exam - General 1994 Neurologic cranial nerves Overall: crainial nerves 2 - 12 grossly intact 11/25/2017 None Full Exam - General 1994 Psychiatric orientation/consciousness Overall: oriented to person, place and time 11/25/2017 None Full Exam - General 1994 Constitutional general appearance Overall: well developed 07/09/2017 None Full Exam - General 1994 Constitutional general appearance Overall: in no acute distress 07/09/2017 None Full Exam - General 1994 Constitutional general appearance Overall: well nourished 07/09/2017 None Full Exam - General 1994 Constitutional general appearance Hygiene/Attention to Grooming: smells of tobacco 07/09/2017 None Full Exam - General 1994 Eyes conjunctiva/eyelids Overall: conjunctiva clear 07/09/2017 None Full Exam - General 1994 Eyes conjunctiva/eyelids Overall: cornea clear 07/09/2017 None Full Exam - General 1994 Eyes conjunctiva/eyelids Overall: eyelids normal 07/09/2017 None Full Exam - General 1994 Eyes pupils and irises Overall: pupils equal, round, reactive to light and accomodation 07/09/2017 None Full Exam - General 1994 Ears/Nose/Throat oral cavity/pharynx/larynx Overall: oral mucosa clear 07/09/2017 None Full Exam - General 1994 Ears/Nose/Throat oral cavity/pharynx/larynx Overall: oropharyngeal mucosa clear 07/09/2017 None Full Exam - General 1994 Ears/Nose/Throat oral cavity/pharynx/larynx Overall: no masses 07/09/2017 None Full Exam - General 1994 Respiratory auscultation Overall: breath sounds clear bilaterally 07/09/2017 None Full Exam - General 1994 Respiratory auscultation Basilar: diminished 07/09/2017 None Full Exam - General 1994 Respiratory respiratory effort/rhythm Overall: no retractions 07/09/2017 None Full Exam - General 1994 Respiratory respiratory effort/rhythm Overall: normal rate 07/09/2017 None Full Exam - General 1994 Cardiovascular auscultation of heart Overall: regular rate 07/09/2017 None Full Exam - General 1994 Cardiovascular auscultation of heart Overall: normal heart sounds 07/09/2017 None Full Exam - General 1994 Cardiovascular auscultation of heart Overall: no murmurs 07/09/2017 None Full Exam - General 1994 Abdomen abdominal exam Overall: no tenderness 07/09/2017 None Full Exam - General 1994 Abdomen abdominal exam Overall: normal bowel sounds 07/09/2017 None Full Exam - General 1994 Lymphatic neck nodes Overall: anterior cervical chain benign 07/09/2017 None Full Exam - General 1994 Lymphatic neck nodes Overall: posterior cervical chain benign 07/09/2017 None Full Exam - General 1994 Neurologic cranial nerves Overall: crainial nerves 2 - 12 grossly intact 07/09/2017 None Full Exam - General 1994 Psychiatric orientation/consciousness Overall: oriented to person, place and time 07/09/2017 None Full Exam - General 1994 Integument inspection of skin Location: back 07/09/2017 sebacceous cyst lower back Full Exam - General 1994 Constitutional general appearance Overall: well developed 04/29/2017 None Full Exam - General 1994 Constitutional general appearance Overall: in no acute distress 04/29/2017 None Full Exam - General 1994 Constitutional general appearance Overall: well nourished 04/29/2017 None Full Exam - General 1994 Constitutional general appearance Hygiene/Attention to Grooming: smells of tobacco 04/29/2017 None Full Exam - General 1994 Eyes conjunctiva/eyelids Overall: conjunctiva clear 04/29/2017 None Full Exam - General 1994 Eyes conjunctiva/eyelids Overall: cornea clear 04/29/2017 None Full Exam - General 1994 Eyes conjunctiva/eyelids Overall: eyelids normal 04/29/2017 None Full Exam - General 1994 Eyes pupils and irises Overall: pupils equal, round, reactive to light and accomodation 04/29/2017 None Full Exam - General 1994 Ears/Nose/Throat oral cavity/pharynx/larynx Overall: oral mucosa clear 04/29/2017 None Full Exam - General 1994 Ears/Nose/Throat oral cavity/pharynx/larynx Overall: oropharyngeal mucosa clear 04/29/2017 None Full Exam - General 1994 Ears/Nose/Throat oral cavity/pharynx/larynx Overall: no masses 04/29/2017 None Full Exam - General 1994 Respiratory auscultation Overall: breath sounds clear bilaterally 04/29/2017 None Full Exam - General 1994 Respiratory respiratory effort/rhythm Overall: no retractions 04/29/2017 None Full Exam - General 1994 Respiratory respiratory effort/rhythm Overall: normal rate 04/29/2017 None Full Exam - General 1994 Cardiovascular auscultation of heart Overall: regular rate 04/29/2017 None Full Exam - General 1994 Cardiovascular auscultation of heart Overall: normal heart sounds 04/29/2017 None Full Exam - General 1994 Cardiovascular auscultation of heart Overall: no murmurs 04/29/2017 None Full Exam - General 1994 Abdomen abdominal exam Overall: no tenderness 04/29/2017 None Full Exam - General 1994 Abdomen abdominal exam Overall: normal bowel sounds 04/29/2017 None Full Exam - General 1994 Lymphatic neck nodes Overall: anterior cervical chain benign 04/29/2017 None Full Exam - General 1994 Lymphatic neck nodes Overall: posterior cervical chain benign 04/29/2017 None Full Exam - General 1994 Neurologic cranial nerves Overall: crainial nerves 2 - 12 grossly intact 04/29/2017 None Full Exam - General 1994 Psychiatric orientation/consciousness Overall: oriented to person, place and time 04/29/2017 None Full Exam - General 1994 Respiratory auscultation Basilar: diminished 04/29/2017 None Full Exam - General 1994 Integument inspection of skin Location: right axilla 04/29/2017 None Full Exam - General 1994 Integument inspection of skin Location: left axilla 04/29/2017 None Full Exam - General 1994 Integument inspection of skin Rash/Lesions: patch 04/29/2017 None Full Exam - General 1994 Constitutional general appearance Overall: well developed 01/07/2017 None Full Exam - General 1994 Constitutional general appearance Overall: in no acute distress 01/07/2017 None Full Exam - General 1994 Constitutional general appearance Overall: well nourished 01/07/2017 None Full Exam - General 1994 Constitutional general appearance Hygiene/Attention to Grooming: smells of tobacco 01/07/2017 None Full Exam - General 1994 Eyes conjunctiva/eyelids Overall: conjunctiva clear 01/07/2017 None Full Exam - General 1994 Eyes conjunctiva/eyelids Overall: cornea clear 01/07/2017 None Full Exam - General 1994 Eyes conjunctiva/eyelids Overall: eyelids normal 01/07/2017 None Full Exam - General 1994 Eyes pupils and irises Overall: pupils equal, round, reactive to light and accomodation 01/07/2017 None Full Exam - General 1994 Ears/Nose/Throat oral cavity/pharynx/larynx Overall: oral mucosa clear 01/07/2017 None Full Exam - General 1994 Ears/Nose/Throat oral cavity/pharynx/larynx Overall: oropharyngeal mucosa clear 01/07/2017 None Full Exam - General 1994 Ears/Nose/Throat oral cavity/pharynx/larynx Overall: no masses 01/07/2017 None Full Exam - General 1994 Respiratory auscultation Overall: breath sounds clear bilaterally 01/07/2017 None Full Exam - General 1994 Respiratory respiratory effort/rhythm Overall: no retractions 01/07/2017 None Full Exam - General 1994 Respiratory respiratory effort/rhythm Overall: normal rate 01/07/2017 None Full Exam - General 1994 Cardiovascular auscultation of heart Overall: regular rate 01/07/2017 None Full Exam - General 1994 Cardiovascular auscultation of heart Overall: normal heart sounds 01/07/2017 None Full Exam - General 1994 Cardiovascular auscultation of heart Overall: no murmurs 01/07/2017 None Full Exam - General 1994 Abdomen abdominal exam Overall: no tenderness 01/07/2017 None Full Exam - General 1994 Abdomen abdominal exam Overall: normal bowel sounds 01/07/2017 None Full Exam - General 1994 Lymphatic neck nodes Overall: anterior cervical chain benign 01/07/2017 None Full Exam - General 1994 Lymphatic neck nodes Overall: posterior cervical chain benign 01/07/2017 None Full Exam - General 1994 Neurologic cranial nerves Overall: crainial nerves 2 - 12 grossly intact 01/07/2017 None Full Exam - General 1994 Psychiatric orientation/consciousness Overall: oriented to person, place and time 01/07/2017 None Full Exam - General 1994 Constitutional general appearance Overall: well developed 09/08/2016 None Full Exam - General 1994 Constitutional general appearance Overall: in no acute distress 09/08/2016 None Full Exam - General 1994 Constitutional general appearance Overall: well nourished 09/08/2016 None Full Exam - General 1994 Constitutional general appearance Hygiene/Attention to Grooming: smells of tobacco 09/08/2016 None Full Exam - General 1994 Eyes conjunctiva/eyelids Overall: conjunctiva clear 09/08/2016 None Full Exam - General 1994 Eyes conjunctiva/eyelids Overall: cornea clear 09/08/2016 None Full Exam - General 1994 Eyes conjunctiva/eyelids Overall: eyelids normal 09/08/2016 None Full Exam - General 1994 Eyes pupils and irises Overall: pupils equal, round, reactive to light and accomodation 09/08/2016 None Full Exam - General 1994 Ears/Nose/Throat oral cavity/pharynx/larynx Overall: oral mucosa clear 09/08/2016 None Full Exam - General 1994 Ears/Nose/Throat oral cavity/pharynx/larynx Overall: oropharyngeal mucosa clear 09/08/2016 None Full Exam - General 1994 Ears/Nose/Throat oral cavity/pharynx/larynx Overall: no masses 09/08/2016 None Full Exam - General 1994 Respiratory auscultation Overall: breath sounds clear bilaterally 09/08/2016 None Full Exam - General 1994 Respiratory respiratory effort/rhythm Overall: no retractions 09/08/2016 None Full Exam - General 1994 Respiratory respiratory effort/rhythm Overall: normal rate 09/08/2016 None Full Exam - General 1994 Cardiovascular auscultation of heart Overall: regular rate 09/08/2016 None Full Exam - General 1994 Cardiovascular auscultation of heart Overall: normal heart sounds 09/08/2016 None Full Exam - General 1994 Cardiovascular auscultation of heart Overall: no murmurs 09/08/2016 None Full Exam - General 1994 Abdomen abdominal exam Overall: no tenderness 09/08/2016 None Full Exam - General 1994 Abdomen abdominal exam Overall: normal bowel sounds 09/08/2016 None Full Exam - General 1994 Lymphatic neck nodes Overall: anterior cervical chain benign 09/08/2016 None Full Exam - General 1994 Lymphatic neck nodes Overall: posterior cervical chain benign 09/08/2016 None Full Exam - General 1994 Neurologic cranial nerves Overall: crainial nerves 2 - 12 grossly intact 09/08/2016 None Full Exam - General 1994 Psychiatric orientation/consciousness Overall: oriented to person, place and time 09/08/2016 None Full Exam - General 1994 Constitutional general appearance Overall: well developed 05/11/2016 None Full Exam - General 1994 Constitutional general appearance Overall: in no acute distress 05/11/2016 None Full Exam - General 1994 Constitutional general appearance Overall: well nourished 05/11/2016 None Full Exam - General 1994 Constitutional general appearance Hygiene/Attention to Grooming: smells of tobacco 05/11/2016 None Full Exam - General 1994 Eyes conjunctiva/eyelids Overall: conjunctiva clear 05/11/2016 None Full Exam - General 1994 Eyes conjunctiva/eyelids Overall: cornea clear 05/11/2016 None Full Exam - General 1994 Eyes conjunctiva/eyelids Overall: eyelids normal 05/11/2016 None Full Exam - General 1994 Eyes pupils and irises Overall: pupils equal, round, reactive to light and accomodation 05/11/2016 None Full Exam - General 1994 Ears/Nose/Throat oral cavity/pharynx/larynx Overall: oral mucosa clear 05/11/2016 None Full Exam - General 1994 Ears/Nose/Throat oral cavity/pharynx/larynx Overall: oropharyngeal mucosa clear 05/11/2016 None Full Exam - General 1994 Ears/Nose/Throat oral cavity/pharynx/larynx Overall: no masses 05/11/2016 None Full Exam - General 1994 Respiratory auscultation Overall: breath sounds clear bilaterally 05/11/2016 None Full Exam - General 1994 Respiratory respiratory effort/rhythm Overall: no retractions 05/11/2016 None Full Exam - General 1994 Respiratory respiratory effort/rhythm Overall: normal rate 05/11/2016 None Full Exam - General 1994 Cardiovascular auscultation of heart Overall: regular rate 05/11/2016 None Full Exam - General 1994 Cardiovascular auscultation of heart Overall: normal heart sounds 05/11/2016 None Full Exam - General 1994 Cardiovascular auscultation of heart Overall: no murmurs 05/11/2016 None Full Exam - General 1994 Abdomen abdominal exam Overall: no tenderness 05/11/2016 None Full Exam - General 1994 Abdomen abdominal exam Overall: normal bowel sounds 05/11/2016 None Full Exam - General 1994 Lymphatic neck nodes Overall: anterior cervical chain benign 05/11/2016 None Full Exam - General 1994 Lymphatic neck nodes Overall: posterior cervical chain benign 05/11/2016 None Full Exam - General 1994 Neurologic cranial nerves Overall: crainial nerves 2 - 12 grossly intact 05/11/2016 None Full Exam - General 1994 Psychiatric orientation/consciousness Overall: oriented to person, place and time 05/11/2016 None Full Exam - General 1994 Constitutional general appearance Overall: well developed 02/10/2016 None Full Exam - General 1994 Constitutional general appearance Overall: in no acute distress 02/10/2016 None Full Exam - General 1994 Constitutional general appearance Overall: well nourished 02/10/2016 None Full Exam - General 1994 Constitutional general appearance Hygiene/Attention to Grooming: smells of tobacco 02/10/2016 None Full Exam - General 1994 Eyes conjunctiva/eyelids Overall: conjunctiva clear 02/10/2016 None Full Exam - General 1994 Eyes conjunctiva/eyelids Overall: cornea clear 02/10/2016 None Full Exam - General 1994 Eyes conjunctiva/eyelids Overall: eyelids normal 02/10/2016 None Full Exam - General 1994 Eyes pupils and irises Overall: pupils equal, round, reactive to light and accomodation 02/10/2016 None Full Exam - General 1994 Ears/Nose/Throat oral cavity/pharynx/larynx Overall: oral mucosa clear 02/10/2016 None Full Exam - General 1994 Ears/Nose/Throat oral cavity/pharynx/larynx Overall: oropharyngeal mucosa clear 02/10/2016 None Full Exam - General 1994 Ears/Nose/Throat oral cavity/pharynx/larynx Overall: no masses 02/10/2016 None Full Exam - General 1994 Respiratory auscultation Overall: breath sounds clear bilaterally 02/10/2016 None Full Exam - General 1994 Respiratory respiratory effort/rhythm Overall: no retractions 02/10/2016 None Full Exam - General 1994 Respiratory respiratory effort/rhythm Overall: normal rate 02/10/2016 None Full Exam - General 1994 Cardiovascular auscultation of heart Overall: regular rate 02/10/2016 None Full Exam - General 1994 Cardiovascular auscultation of heart Overall: normal heart sounds 02/10/2016 None Full Exam - General 1994 Cardiovascular auscultation of heart Overall: no murmurs 02/10/2016 None Full Exam - General 1994 Abdomen abdominal exam Overall: no tenderness 02/10/2016 None Full Exam - General 1994 Abdomen abdominal exam Overall: normal bowel sounds 02/10/2016 None Full Exam - General 1994 Lymphatic neck nodes Overall: anterior cervical chain benign 02/10/2016 None Full Exam - General 1994 Lymphatic neck nodes Overall: posterior cervical chain benign 02/10/2016 None Full Exam - General 1994 Neurologic cranial nerves Overall: crainial nerves 2 - 12 grossly intact 02/10/2016 None Full Exam - General 1994 Psychiatric orientation/consciousness Overall: oriented to person, place and time 02/10/2016 None Full Exam - General 1994 Constitutional general appearance Overall: well developed 12/18/2015 None Full Exam - General 1994 Constitutional general appearance Overall: in no acute distress 12/18/2015 None Full Exam - General 1994 Constitutional general appearance Overall: well nourished 12/18/2015 None Full Exam - General 1994 Eyes conjunctiva/eyelids Overall: conjunctiva clear 12/18/2015 None Full Exam - General 1994 Eyes conjunctiva/eyelids Overall: cornea clear 12/18/2015 None Full Exam - General 1994 Eyes conjunctiva/eyelids Overall: eyelids normal 12/18/2015 None Full Exam - General 1994 Ears/Nose/Throat lips/teeth/gingiva Overall: benign lips 12/18/2015 None Full Exam - General 1994 Ears/Nose/Throat oral cavity/pharynx/larynx Overall: oral mucosa clear 12/18/2015 None Full Exam - General 1994 Respiratory auscultation Overall: breath sounds clear bilaterally 12/18/2015 None Full Exam - General 1994 Respiratory respiratory effort/rhythm Overall: no retractions 12/18/2015 None Full Exam - General 1994 Respiratory respiratory effort/rhythm Overall: normal rate 12/18/2015 None Full Exam - General 1994 Cardiovascular auscultation of heart Overall: regular rate 12/18/2015 None Full Exam - General 1994 Cardiovascular auscultation of heart Overall: normal heart sounds 12/18/2015 None Full Exam - General 1994 Musculoskeletal spine, ribs and pelvis Spine: tender @ lumbar spine 12/18/2015 None Full Exam - General 1994 Musculoskeletal spine, ribs and pelvis Sacroiliac joints: tender right sacroiliac joint 12/18/2015 None Full Exam - General 1994 Neurologic cranial nerves Overall: crainial nerves 2 - 12 grossly intact 12/18/2015 None Full Exam - General 1994 Psychiatric orientation/consciousness Overall: oriented to person, place and time 12/18/2015 None Full Exam - General 1994 Psychiatric mood and affect Overall: normal mood and affect 12/18/2015 None Full Exam - General 1994 Psychiatric appearance Overall: well-groomed, good eye contact 12/18/2015 None Full Exam - General 1994 Constitutional general appearance Overall: well developed 12/16/2015 None Full Exam - General 1994 Constitutional general appearance Overall: in no acute distress 12/16/2015 None Full Exam - General 1994 Constitutional general appearance Overall: well nourished 12/16/2015 None Full Exam - General 1994 Eyes conjunctiva/eyelids Overall: conjunctiva clear 12/16/2015 None Full Exam - General 1994 Eyes conjunctiva/eyelids Overall: cornea clear 12/16/2015 None Full Exam - General 1994 Eyes conjunctiva/eyelids Overall: eyelids normal 12/16/2015 None Full Exam - General 1994 Ears/Nose/Throat oral cavity/pharynx/larynx Overall: oral mucosa clear 12/16/2015 None Full Exam - General 1994 Respiratory auscultation Overall: breath sounds clear bilaterally 12/16/2015 None Full Exam - General 1994 Respiratory respiratory effort/rhythm Overall: no retractions 12/16/2015 None Full Exam - General 1994 Respiratory respiratory effort/rhythm Overall: normal rate 12/16/2015 None Full Exam - General 1994 Cardiovascular auscultation of heart Overall: regular rate 12/16/2015 None Full Exam - General 1994 Cardiovascular auscultation of heart Overall: normal heart sounds 12/16/2015 None Full Exam - General 1994 Cardiovascular auscultation of heart Overall: no murmurs 12/16/2015 None Full Exam - General 1994 Neurologic cranial nerves Overall: crainial nerves 2 - 12 grossly intact 12/16/2015 None Full Exam - General 1994 Psychiatric orientation/consciousness Overall: oriented to person, place and time 12/16/2015 None Full Exam - General 1994 Ears/Nose/Throat lips/teeth/gingiva Overall: benign lips 12/16/2015 None Full Exam - General 1994 Musculoskeletal spine, ribs and pelvis Sacroiliac joints: tender right sacroiliac joint 12/16/2015 None Full Exam - General 1994 Musculoskeletal spine, ribs and pelvis Spine: tender @ lumbar spine 12/16/2015 None Full Exam - General 1994 Constitutional general appearance Overall: well developed 12/09/2015 None Full Exam - General 1994 Constitutional general appearance Overall: in no acute distress 12/09/2015 None Full Exam - General 1994 Constitutional general appearance Overall: well nourished 12/09/2015 None Full Exam - General 1994 Eyes conjunctiva/eyelids Overall: conjunctiva clear 12/09/2015 None Full Exam - General 1994 Eyes conjunctiva/eyelids Overall: cornea clear 12/09/2015 None Full Exam - General 1994 Eyes conjunctiva/eyelids Overall: eyelids normal 12/09/2015 None Full Exam - General 1994 Eyes pupils and irises Overall: pupils equal, round, reactive to light and accomodation 12/09/2015 None Full Exam - General 1994 Ears/Nose/Throat oral cavity/pharynx/larynx Overall: oral mucosa clear 12/09/2015 None Full Exam - General 1994 Ears/Nose/Throat oral cavity/pharynx/larynx Overall: oropharyngeal mucosa clear 12/09/2015 None Full Exam - General 1994 Ears/Nose/Throat oral cavity/pharynx/larynx Overall: no masses 12/09/2015 None Full Exam - General 1994 Respiratory auscultation Overall: breath sounds clear bilaterally 12/09/2015 None Full Exam - General 1994 Respiratory respiratory effort/rhythm Overall: no retractions 12/09/2015 None Full Exam - General 1994 Respiratory respiratory effort/rhythm Overall: normal rate 12/09/2015 None Full Exam - General 1994 Cardiovascular auscultation of heart Overall: regular rate 12/09/2015 None Full Exam - General 1994 Cardiovascular auscultation of heart Overall: normal heart sounds 12/09/2015 None Full Exam - General 1994 Cardiovascular auscultation of heart Overall: no murmurs 12/09/2015 None Full Exam - General 1994 Abdomen abdominal exam Overall: no tenderness 12/09/2015 None Full Exam - General 1994 Abdomen abdominal exam Overall: normal bowel sounds 12/09/2015 None Full Exam - General 1994 Lymphatic neck nodes Overall: anterior cervical chain benign 12/09/2015 None Full Exam - General 1994 Lymphatic neck nodes Overall: posterior cervical chain benign 12/09/2015 None Full Exam - General 1994 Neurologic cranial nerves Overall: crainial nerves 2 - 12 grossly intact 12/09/2015 None Full Exam - General 1994 Psychiatric orientation/consciousness Overall: oriented to person, place and time 12/09/2015 None Full Exam - General 1994 Constitutional general appearance Hygiene/Attention to Grooming: smells of tobacco 12/09/2015 None Full Exam - General 1994 Constitutional general appearance Overall: well developed 10/28/2015 None Full Exam - General 1994 Constitutional general appearance Overall: in no acute distress 10/28/2015 None Full Exam - General 1994 Constitutional general appearance Overall: well nourished 10/28/2015 None Full Exam - General 1994 Eyes conjunctiva/eyelids Overall: conjunctiva clear 10/28/2015 None Full Exam - General 1994 Eyes conjunctiva/eyelids Overall: cornea clear 10/28/2015 None Full Exam - General 1994 Eyes conjunctiva/eyelids Overall: eyelids normal 10/28/2015 None Full Exam - General 1994 Eyes pupils and irises Overall: pupils equal, round, reactive to light and accomodation 10/28/2015 None Full Exam - General 1994 Ears/Nose/Throat oral cavity/pharynx/larynx Overall: oral mucosa clear 10/28/2015 None Full Exam - General 1994 Ears/Nose/Throat oral cavity/pharynx/larynx Overall: oropharyngeal mucosa clear 10/28/2015 None Full Exam - General 1994 Ears/Nose/Throat oral cavity/pharynx/larynx Overall: no masses 10/28/2015 None Full Exam - General 1994 Respiratory auscultation Overall: breath sounds clear bilaterally 10/28/2015 None Full Exam - General 1994 Respiratory respiratory effort/rhythm Overall: no retractions 10/28/2015 None Full Exam - General 1994 Respiratory respiratory effort/rhythm Overall: normal rate 10/28/2015 None Full Exam - General 1994 Cardiovascular auscultation of heart Overall: regular rate 10/28/2015 None Full Exam - General 1994 Cardiovascular auscultation of heart Overall: normal heart sounds 10/28/2015 None Full Exam - General 1994 Cardiovascular auscultation of heart Overall: no murmurs 10/28/2015 None Full Exam - General 1994 Abdomen abdominal exam Overall: no tenderness 10/28/2015 None Full Exam - General 1994 Abdomen abdominal exam Overall: normal bowel sounds 10/28/2015 None Full Exam - General 1994 Lymphatic neck nodes Overall: anterior cervical chain benign 10/28/2015 None Full Exam - General 1994 Lymphatic neck nodes Overall: posterior cervical chain benign 10/28/2015 None Full Exam - General 1994 Neurologic cranial nerves Overall: crainial nerves 2 - 12 grossly intact 10/28/2015 None Full Exam - General 1994 Psychiatric orientation/consciousness Overall: oriented to person, place and time 10/28/2015 None Full Exam - General 1994 Constitutional general appearance Overall: well developed 08/26/2015 None Full Exam - General 1994 Constitutional general appearance Overall: in no acute distress 08/26/2015 None Full Exam - General 1994 Constitutional general appearance Overall: well nourished 08/26/2015 None Full Exam - General 1994 Eyes conjunctiva/eyelids Overall: conjunctiva clear 08/26/2015 None Full Exam - General 1994 Eyes conjunctiva/eyelids Overall: cornea clear 08/26/2015 None Full Exam - General 1994 Eyes conjunctiva/eyelids Overall: eyelids normal 08/26/2015 None Full Exam - General 1994 Eyes pupils and irises Overall: pupils equal, round, reactive to light and accomodation 08/26/2015 None Full Exam - General 1994 Ears/Nose/Throat oral cavity/pharynx/larynx Overall: oral mucosa clear 08/26/2015 None Full Exam - General 1994 Ears/Nose/Throat oral cavity/pharynx/larynx Overall: oropharyngeal mucosa clear 08/26/2015 None Full Exam - General 1994 Ears/Nose/Throat oral cavity/pharynx/larynx Overall: no masses 08/26/2015 None Full Exam - General 1994 Respiratory auscultation Overall: breath sounds clear bilaterally 08/26/2015 None Full Exam - General 1994 Respiratory respiratory effort/rhythm Overall: no retractions 08/26/2015 None Full Exam - General 1994 Respiratory respiratory effort/rhythm Overall: normal rate 08/26/2015 None Full Exam - General 1994 Cardiovascular auscultation of heart Overall: regular rate 08/26/2015 None Full Exam - General 1994 Cardiovascular auscultation of heart Overall: normal heart sounds 08/26/2015 None Full Exam - General 1994 Cardiovascular auscultation of heart Overall: no murmurs 08/26/2015 None Full Exam - General 1994 Abdomen abdominal exam Overall: no tenderness 08/26/2015 None Full Exam - General 1994 Abdomen abdominal exam Overall: normal bowel sounds 08/26/2015 None Full Exam - General 1994 Lymphatic neck nodes Overall: anterior cervical chain benign 08/26/2015 None Full Exam - General 1994 Lymphatic neck nodes Overall: posterior cervical chain benign 08/26/2015 None Full Exam - General 1994 Neurologic cranial nerves Overall: crainial nerves 2 - 12 grossly intact 08/26/2015 None Full Exam - General 1994 Psychiatric orientation/consciousness Overall: oriented to person, place and time 08/26/2015 None Full Exam - General 1994 Constitutional general appearance Overall: well developed 02/12/2015 None Full Exam - General 1994 Constitutional general appearance Overall: in no acute distress 02/12/2015 None Full Exam - General 1994 Constitutional general appearance Overall: well nourished 02/12/2015 None Full Exam - General 1994 Eyes conjunctiva/eyelids Overall: conjunctiva clear 02/12/2015 None Full Exam - General 1994 Eyes conjunctiva/eyelids Overall: cornea clear 02/12/2015 None Full Exam - General 1994 Eyes conjunctiva/eyelids Overall: eyelids normal 02/12/2015 None Full Exam - General 1994 Eyes pupils and irises Overall: pupils equal, round, reactive to light and accomodation 02/12/2015 None Full Exam - General 1994 Respiratory auscultation Overall: breath sounds clear bilaterally 02/12/2015 None Full Exam - General 1994 Respiratory respiratory effort/rhythm Overall: no retractions 02/12/2015 None Full Exam - General 1994 Respiratory respiratory effort/rhythm Overall: normal rate 02/12/2015 None Full Exam - General 1994 Cardiovascular auscultation of heart Overall: regular rate 02/12/2015 None Full Exam - General 1994 Cardiovascular auscultation of heart Overall: normal heart sounds 02/12/2015 None Full Exam - General 1994 Cardiovascular auscultation of heart Overall: no murmurs 02/12/2015 None Full Exam - General 1994 Abdomen abdominal exam Overall: no tenderness 02/12/2015 None Full Exam - General 1994 Abdomen abdominal exam Overall: normal bowel sounds 02/12/2015 None Full Exam - General 1994 Lymphatic neck nodes Overall: anterior cervical chain benign 02/12/2015 None Full Exam - General 1994 Lymphatic neck nodes Overall: posterior cervical chain benign 02/12/2015 None Full Exam - General 1994 Integument inspection of skin Dermatitis: excoriation 02/12/2015 lower back and bra line Full Exam - General 1994 Integument inspection of skin Location: back 02/12/2015 None Full Exam - General 1994 Neurologic cranial nerves Overall: crainial nerves 2 - 12 grossly intact 02/12/2015 None Full Exam - General 1994 Psychiatric orientation/consciousness Overall: oriented to person, place and time 02/12/2015 None Full Exam - General 1994 Ears/Nose/Throat oral cavity/pharynx/larynx Overall: oropharyngeal mucosa clear 02/12/2015 None Full Exam - General 1994 Ears/Nose/Throat oral cavity/pharynx/larynx Overall: no masses 02/12/2015 None Full Exam - General 1994 Ears/Nose/Throat oral cavity/pharynx/larynx Overall: oral mucosa clear 02/12/2015 None Full Exam - General 1994 Constitutional general appearance Overall: well developed 11/12/2014 None Full Exam - General 1994 Constitutional general appearance Overall: in no acute distress 11/12/2014 None Full Exam - General 1994 Constitutional general appearance Overall: well nourished 11/12/2014 None Full Exam - General 1994 Eyes conjunctiva/eyelids Overall: conjunctiva clear 11/12/2014 None Full Exam - General 1994 Eyes conjunctiva/eyelids Overall: cornea clear 11/12/2014 None Full Exam - General 1994 Eyes conjunctiva/eyelids Overall: eyelids normal 11/12/2014 None Full Exam - General 1994 Eyes pupils and irises Overall: pupils equal, round, reactive to light and accomodation 11/12/2014 None Full Exam - General 1994 Respiratory respiratory effort/rhythm Overall: no retractions 11/12/2014 None Full Exam - General 1994 Respiratory respiratory effort/rhythm Overall: normal rate 11/12/2014 None Full Exam - General 1994 Cardiovascular auscultation of heart Overall: regular rate 11/12/2014 None Full Exam - General 1994 Cardiovascular auscultation of heart Overall: normal heart sounds 11/12/2014 None Full Exam - General 1994 Cardiovascular auscultation of heart Overall: no murmurs 11/12/2014 None Full Exam - General 1994 Lymphatic neck nodes Overall: anterior cervical chain benign 11/12/2014 None Full Exam - General 1994 Lymphatic neck nodes Overall: posterior cervical chain benign 11/12/2014 None Full Exam - General 1994 Neurologic cranial nerves Overall: crainial nerves 2 - 12 grossly intact 11/12/2014 None Full Exam - General 1994 Psychiatric orientation/consciousness Overall: oriented to person, place and time 11/12/2014 None Full Exam - General 1994 Ears/Nose/Throat oral cavity/pharynx/larynx Overall: oropharyngeal mucosa clear 11/12/2014 None Full Exam - General 1994 Ears/Nose/Throat oral cavity/pharynx/larynx Overall: no masses 11/12/2014 None Full Exam - General 1994 Ears/Nose/Throat oral cavity/pharynx/larynx Overall: oral mucosa clear 11/12/2014 None Full Exam - General 1994 Ears/Nose/Throat otoscopic exam Overall: tympanic membranes clear 11/12/2014 None Full Exam - General 1994 Ears/Nose/Throat otoscopic exam Overall: external auditory canals clear 11/12/2014 None Full Exam - General 1994 Respiratory auscultation Diffuse: diminished 11/12/2014 None Full Exam - General 1994 Respiratory auscultation Diffuse: expiratory wheezes 11/12/2014 None Full Exam - General 1994 Constitutional general appearance Overall: well developed 07/23/2014 None Full Exam - General 1994 Constitutional general appearance Overall: in no acute distress 07/23/2014 None Full Exam - General 1994 Constitutional general appearance Overall: well nourished 07/23/2014 None Full Exam - General 1994 Eyes conjunctiva/eyelids Overall: conjunctiva clear 07/23/2014 None Full Exam - General 1994 Eyes conjunctiva/eyelids Overall: cornea clear 07/23/2014 None Full Exam - General 1994 Eyes conjunctiva/eyelids Overall: eyelids normal 07/23/2014 None Full Exam - General 1994 Eyes pupils and irises Overall: pupils equal, round, reactive to light and accomodation 07/23/2014 None Full Exam - General 1994 Respiratory auscultation Overall: breath sounds clear bilaterally 07/23/2014 None Full Exam - General 1994 Respiratory respiratory effort/rhythm Overall: no retractions 07/23/2014 None Full Exam - General 1994 Respiratory respiratory effort/rhythm Overall: normal rate 07/23/2014 None Full Exam - General 1994 Cardiovascular auscultation of heart Overall: regular rate 07/23/2014 None Full Exam - General 1994 Cardiovascular auscultation of heart Overall: normal heart sounds 07/23/2014 None Full Exam - General 1994 Cardiovascular auscultation of heart Overall: no murmurs 07/23/2014 None Full Exam - General 1994 Abdomen abdominal exam Overall: no tenderness 07/23/2014 None Full Exam - General 1994 Abdomen abdominal exam Overall: normal bowel sounds 07/23/2014 None Full Exam - General 1994 Lymphatic neck nodes Overall: anterior cervical chain benign 07/23/2014 None Full Exam - General 1994 Lymphatic neck nodes Overall: posterior cervical chain benign 07/23/2014 None Full Exam - General 1994 Neurologic cranial nerves Overall: crainial nerves 2 - 12 grossly intact 07/23/2014 None Full Exam - General 1994 Psychiatric orientation/consciousness Overall: oriented to person, place and time 07/23/2014 None Full Exam - General 1994 Constitutional general appearance Overall: well developed 03/21/2014 None Full Exam - General 1994 Constitutional general appearance Overall: in no acute distress 03/21/2014 None Full Exam - General 1994 Constitutional general appearance Overall: well nourished 03/21/2014 None Full Exam - General 1994 Eyes conjunctiva/eyelids Overall: conjunctiva clear 03/21/2014 None Full Exam - General 1994 Eyes conjunctiva/eyelids Overall: cornea clear 03/21/2014 None Full Exam - General 1994 Eyes conjunctiva/eyelids Overall: eyelids normal 03/21/2014 None Full Exam - General 1994 Eyes pupils and irises Overall: pupils equal, round, reactive to light and accomodation 03/21/2014 None Full Exam - General 1994 Respiratory auscultation Overall: breath sounds clear bilaterally 03/21/2014 None Full Exam - General 1994 Respiratory respiratory effort/rhythm Overall: no retractions 03/21/2014 None Full Exam - General 1994 Respiratory respiratory effort/rhythm Overall: normal rate 03/21/2014 None Full Exam - General 1994 Cardiovascular auscultation of heart Overall: regular rate 03/21/2014 None Full Exam - General 1994 Cardiovascular auscultation of heart Overall: normal heart sounds 03/21/2014 None Full Exam - General 1994 Cardiovascular auscultation of heart Overall: no murmurs 03/21/2014 None Full Exam - General 1994 Lymphatic neck nodes Overall: anterior cervical chain benign 03/21/2014 None Full Exam - General 1994 Lymphatic neck nodes Overall: posterior cervical chain benign 03/21/2014 None Full Exam - General 1994 Neurologic cranial nerves Overall: crainial nerves 2 - 12 grossly intact 03/21/2014 None Full Exam - General 1994 Psychiatric orientation/consciousness Overall: oriented to person, place and time 03/21/2014 None Full Exam - General 1994 Genitourinary labia and vagina Overall: no lesions 03/21/2014 None Full Exam - General 1994 Genitourinary labia and vagina Labia: no lesions present 03/21/2014 None Full Exam - General 1994 Genitourinary labia and vagina Vaginal discharge: scant 03/21/2014 None Full Exam - General 1994 Constitutional general appearance Overall: well developed 01/25/2014 None Full Exam - General 1994 Constitutional general appearance Overall: in no acute distress 01/25/2014 None Full Exam - General 1994 Constitutional general appearance Overall: well nourished 01/25/2014 None Full Exam - General 1994 Eyes conjunctiva/eyelids Overall: conjunctiva clear 01/25/2014 None Full Exam - General 1994 Eyes conjunctiva/eyelids Overall: cornea clear 01/25/2014 None Full Exam - General 1994 Eyes conjunctiva/eyelids Overall: eyelids normal 01/25/2014 None Full Exam - General 1994 Eyes pupils and irises Overall: pupils equal, round, reactive to light and accomodation 01/25/2014 None Full Exam - General 1994 Respiratory auscultation Overall: breath sounds clear bilaterally 01/25/2014 None Full Exam - General 1994 Respiratory respiratory effort/rhythm Overall: no retractions 01/25/2014 None Full Exam - General 1994 Respiratory respiratory effort/rhythm Overall: normal rate 01/25/2014 None Full Exam - General 1994 Cardiovascular auscultation of heart Overall: regular rate 01/25/2014 None Full Exam - General 1994 Cardiovascular auscultation of heart Overall: normal heart sounds 01/25/2014 None Full Exam - General 1994 Cardiovascular auscultation of heart Overall: no murmurs 01/25/2014 None Full Exam - General 1994 Lymphatic neck nodes Overall: anterior cervical chain benign 01/25/2014 None Full Exam - General 1994 Lymphatic neck nodes Overall: posterior cervical chain benign 01/25/2014 None Full Exam - General 1994 Neurologic cranial nerves Overall: crainial nerves 2 - 12 grossly intact 01/25/2014 None Full Exam - General 1994 Psychiatric orientation/consciousness Overall: oriented to person, place and time 01/25/2014 None Full Exam - General 1994 Constitutional general appearance Overall: well developed 10/23/2013 None Full Exam - General 1994 Constitutional general appearance Overall: in no acute distress 10/23/2013 None Full Exam - General 1994 Constitutional general appearance Overall: well nourished 10/23/2013 None Full Exam - General 1994 Eyes conjunctiva/eyelids Overall: conjunctiva clear 10/23/2013 None Full Exam - General 1994 Eyes conjunctiva/eyelids Overall: cornea clear 10/23/2013 None Full Exam - General 1994 Eyes conjunctiva/eyelids Overall: eyelids normal 10/23/2013 None Full Exam - General 1994 Eyes pupils and irises Overall: pupils equal, round, reactive to light and accomodation 10/23/2013 None Full Exam - General 1994 Respiratory auscultation Overall: breath sounds clear bilaterally 10/23/2013 None Full Exam - General 1994 Respiratory respiratory effort/rhythm Overall: no retractions 10/23/2013 None Full Exam - General 1994 Respiratory respiratory effort/rhythm Overall: normal rate 10/23/2013 None Full Exam - General 1994 Cardiovascular auscultation of heart Overall: regular rate 10/23/2013 None Full Exam - General 1994 Cardiovascular auscultation of heart Overall: normal heart sounds 10/23/2013 None Full Exam - General 1994 Cardiovascular auscultation of heart Overall: no murmurs 10/23/2013 None Full Exam - General 1994 Abdomen abdominal exam Overall: no tenderness 10/23/2013 None Full Exam - General 1994 Abdomen abdominal exam Overall: normal bowel sounds 10/23/2013 None Full Exam - General 1994 Lymphatic neck nodes Overall: anterior cervical chain benign 10/23/2013 None Full Exam - General 1994 Lymphatic neck nodes Overall: posterior cervical chain benign 10/23/2013 None Full Exam - General 1994 Integument inspection of skin Dermatitis: excoriation 10/23/2013 lower back and bra line Full Exam - General 1994 Integument inspection of skin Location: back 10/23/2013 None Full Exam - General 1994 Neurologic cranial nerves Overall: crainial nerves 2 - 12 grossly intact 10/23/2013 None Full Exam - General 1994 Psychiatric orientation/consciousness Overall: oriented to person, place and time 10/23/2013 None Full Exam - General 1994 Constitutional general appearance Overall: well developed 08/21/2013 None Full Exam - General 1994 Constitutional general appearance Overall: in no acute distress 08/21/2013 None Full Exam - General 1994 Constitutional general appearance Overall: well nourished 08/21/2013 None Full Exam - General 1994 Eyes conjunctiva/eyelids Overall: conjunctiva clear 08/21/2013 None Full Exam - General 1994 Eyes conjunctiva/eyelids Overall: cornea clear 08/21/2013 None Full Exam - General 1994 Eyes conjunctiva/eyelids Overall: eyelids normal 08/21/2013 None Full Exam - General 1994 Eyes pupils and irises Overall: pupils equal, round, reactive to light and accomodation 08/21/2013 None Full Exam - General 1994 Respiratory auscultation Overall: breath sounds clear bilaterally 08/21/2013 None Full Exam - General 1994 Respiratory respiratory effort/rhythm Overall: no retractions 08/21/2013 None Full Exam - General 1994 Respiratory respiratory effort/rhythm Overall: normal rate 08/21/2013 None Full Exam - General 1994 Cardiovascular auscultation of heart Overall: regular rate 08/21/2013 None Full Exam - General 1994 Cardiovascular auscultation of heart Overall: normal heart sounds 08/21/2013 None Full Exam - General 1994 Cardiovascular auscultation of heart Overall: no murmurs 08/21/2013 None Full Exam - General 1994 Abdomen abdominal exam Overall: no tenderness 08/21/2013 None Full Exam - General 1994 Abdomen abdominal exam Overall: normal bowel sounds 08/21/2013 None Full Exam - General 1994 Lymphatic neck nodes Overall: anterior cervical chain benign 08/21/2013 None Full Exam - General 1994 Lymphatic neck nodes Overall: posterior cervical chain benign 08/21/2013 None Full Exam - General 1994 Neurologic cranial nerves Overall: crainial nerves 2 - 12 grossly intact 08/21/2013 None Full Exam - General 1994 Psychiatric orientation/consciousness Overall: oriented to person, place and time 08/21/2013 None Full Exam - General 1994 Integument inspection of skin Location: back 08/21/2013 None Full Exam - General 1994 Integument inspection of skin Dermatitis: excoriation 08/21/2013 lower back and bra line Full Exam - General 1994 Constitutional general appearance Overall: well developed 07/20/2013 None Full Exam - General 1994 Constitutional general appearance Overall: in no acute distress 07/20/2013 None Full Exam - General 1994 Constitutional general appearance Overall: well nourished 07/20/2013 None Full Exam - General 1994 Eyes conjunctiva/eyelids Overall: conjunctiva clear 07/20/2013 None Full Exam - General 1994 Eyes conjunctiva/eyelids Overall: cornea clear 07/20/2013 None Full Exam - General 1994 Eyes conjunctiva/eyelids Overall: eyelids normal 07/20/2013 None Full Exam - General 1994 Eyes pupils and irises Overall: pupils equal, round, reactive to light and accomodation 07/20/2013 None Full Exam - General 1994 Ears/Nose/Throat otoscopic exam External auditory canal: a normal exam 07/20/2013 None Full Exam - General 1994 Ears/Nose/Throat otoscopic exam External auditory canal: partial cerumen occlusion 07/20/2013 None Full Exam - General 1994 Ears/Nose/Throat otoscopic exam Tympanic membrane: a normal exam 07/20/2013 None Full Exam - General 1994 Ears/Nose/Throat otoscopic exam Tympanic membrane: not visualized 07/20/2013 None Full Exam - General 1994 Ears/Nose/Throat oral cavity/pharynx/larynx Overall: oral mucosa clear 07/20/2013 None Full Exam - General 1995 Ears/Nose/Throat oral cavity/pharynx/larynx Overall: oropharyngeal mucosa clear 07/20/2013 None Full Exam - General 1995 Ears/Nose/Throat oral cavity/pharynx/larynx Overall: no masses 07/20/2013 None Full Exam - General 1994 Respiratory auscultation Overall: breath sounds clear bilaterally 07/20/2013 None Full Exam - General 1994 Respiratory respiratory effort/rhythm Overall: no retractions 07/20/2013 None Full Exam - General 1994 Respiratory respiratory effort/rhythm Overall: normal rate 07/20/2013 None Full Exam - General 1994 Cardiovascular auscultation of heart Overall: regular rate 07/20/2013 None Full Exam - General 1994 Cardiovascular auscultation of heart Overall: normal heart sounds 07/20/2013 None Full Exam - General 1994 Cardiovascular auscultation of heart Overall: no murmurs 07/20/2013 None Full Exam - General 1994 Abdomen abdominal exam Overall: no tenderness 07/20/2013 None Full Exam - General 1994 Abdomen abdominal exam Overall: normal bowel sounds 07/20/2013 None Full Exam - General 1994 Lymphatic neck nodes Overall: anterior cervical chain benign 07/20/2013 None Full Exam - General 1994 Lymphatic neck nodes Overall: posterior cervical chain benign 07/20/2013 None Full Exam - General 1994 Integument inspection of skin Overall: no rash, lesions 07/20/2013 None Full Exam - General 1994 Neurologic cranial nerves Overall: crainial nerves 2 - 12 grossly intact 07/20/2013 None Full Exam - General 1994 Psychiatric orientation/consciousness Overall: oriented to person, place and time 07/20/2013 None Full Exam - General 1994 Constitutional general appearance Overall: well nourished 06/22/2013 None Full Exam - General 1994 Constitutional general appearance Overall: well developed 06/22/2013 None Full Exam - General 1994 Constitutional general appearance Overall: in no acute distress 06/22/2013 None Full Exam - General 1994 Eyes pupils and irises Overall: pupils equal, round, reactive to light and accomodation 06/22/2013 None Full Exam - General 1994 Eyes conjunctiva/eyelids Overall: conjunctiva clear 06/22/2013 None Full Exam - General 1994 Eyes conjunctiva/eyelids Overall: eyelids normal 06/22/2013 None Full Exam - General 1994 Eyes conjunctiva/eyelids Overall: cornea clear 06/22/2013 None Full Exam - General 1995 Ears/Nose/Throat otoscopic exam External auditory canal: a normal exam 06/22/2013 None Full Exam - General 1995 Ears/Nose/Throat otoscopic exam External auditory canal: partial cerumen occlusion 06/22/2013 None Full Exam - General 1995 Ears/Nose/Throat otoscopic exam Tympanic membrane: a normal exam 06/22/2013 None Full Exam - General 1995 Ears/Nose/Throat otoscopic exam Tympanic membrane: not visualized 06/22/2013 None Full Exam - General 1994 Ears/Nose/Throat oral cavity/pharynx/larynx Overall: oropharyngeal mucosa clear 06/22/2013 None Full Exam - General 1994 Ears/Nose/Throat oral cavity/pharynx/larynx Overall: no masses 06/22/2013 None Full Exam - General 1994 Ears/Nose/Throat oral cavity/pharynx/larynx Overall: oral mucosa clear 06/22/2013 None Full Exam - General 1994 Respiratory respiratory effort/rhythm Overall: normal rate 06/22/2013 None Full Exam - General 1994 Respiratory respiratory effort/rhythm Overall: no retractions 06/22/2013 None Full Exam - General 1994 Respiratory auscultation Overall: breath sounds clear bilaterally 06/22/2013 None Full Exam - General 1994 Cardiovascular auscultation of heart Overall: regular rate 06/22/2013 None Full Exam - General 1994 Cardiovascular auscultation of heart Overall: normal heart sounds 06/22/2013 None Full Exam - General 1994 Cardiovascular auscultation of heart Overall: no murmurs 06/22/2013 None Full Exam - General 1994 Abdomen abdominal exam Overall: no tenderness 06/22/2013 None Full Exam - General 1994 Abdomen abdominal exam Overall: normal bowel sounds 06/22/2013 None Full Exam - General 1994 Psychiatric orientation/consciousness Overall: oriented to person, place and time 06/22/2013 None Full Exam - General 1994 Neurologic cranial nerves Overall: crainial nerves 2 - 12 grossly intact 06/22/2013 None Full Exam - General 1994 Lymphatic neck nodes Overall: anterior cervical chain benign 06/22/2013 None Full Exam - General 1994 Lymphatic neck nodes Overall: posterior cervical chain benign 06/22/2013 None Full Exam - General 1994 Integument inspection of skin Overall: no rash, lesions 06/22/2013 None Procedures Procedure Codes Date PPPS, SUBSEQ VISIT CPT- 4: G0439 12/03/2017 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 3-[address]: 712705735 CPT-4: G0436 09/08/2016 ADMIN INFLUENZA VIRUS VAC CPT-4: G0008 05/11/2016 PNEUMOCOCCAL VACC 13 SAULO IM Formatting Model/CDA Sections, Assigned to/Khalif Rafia SNOMED CT: 19876686 CPT-4: 26233Enxqjdp 05/11/2016 ADMIN PNEUMOCOCCAL VACCINE SNOMED CT: 23651280 CPT-4: G0009 05/11/2016 FLU VACC 4 SAULO 3 YRS PLUS IM Formatting Model/CDA Sections, Assigned to/Rafia Cuadra SNOMED CT: 60745219 CPT-4: 60684Ohdqxta 05/11/2016 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 3-[address]: 514537339 CPT-4: G0436 02/10/2016 TRIAMCINOLONE ACET INJ NOS CPT-4: J3301 12/16/2015 DRAIN/INJECT JOINT/BURSA CPT-4: 70569 12/16/2015 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 3-[address]: 969063568 CPT-4: G0436 12/09/2015 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 3-[address]: 363167040 CPT-4: G0436 10/28/2015 THER/PROPH/DIAG INJ SC/IM CPT-4: 98397 11/12/2014 TRIAMCINOLONE ACET INJ NOS CPT-4: J3301 11/12/2014 ROCEPHIN, PER 250 MG CPT- 4: J0696 11/12/2014 ROUTINE VENIPUNCTURE CPT- 4: 39763 07/23/2014 URINALYSIS NONAUTO W/O SCOPE CPT-4: 32752 03/21/2014 ROUTINE VENIPUNCTURE CPT- 4: 01750 07/20/2013 PRESCRIP TRANSMIT VIA ERX SY CPT-4: G8553 07/20/2013 PRESCRIP TRANSMIT VIA ERX SY CPT-4: G8553 06/22/2013 PARTIAL REMOVAL OF LUNG CPT-4: 69701 Unknown Vital Signs Date Vital 12/19/2018 Blood Pressure 1: 148/80 Code: 8480-6 BMI: 30.1 Code: 16555-5 Heart Rate 1: 70 bpm Height: 5'5" SpO2: 98% Weight: 181 lbs 09/19/2018 Blood Pressure 1: 140/70 Code: 8480-6 BMI: 31.6 Code: 77304-3 Heart Rate 1: 72 bpm Height: 5'5" SpO2: 96% Weight: 190 lbs 06/16/2018 Blood Pressure 1: 146/84 Code: 8480-6 BMI: 30.6 Code: 25881-1 Heart Rate 1: 68 bpm Height: 5'5" SpO2: 99% Weight: 184 lbs 03/25/2018 Blood Pressure 1: 144/80 Code: 8480-6 BMI: 30.0 Code: 07155-4 Heart Rate 1: 65 bpm Height: 5'5" SpO2: 98% Weight: 180 lbs 12/03/2017 Blood Pressure 1: 142/86 Code: 8480-6 BMI: 29.5 Code: 30443-8 Heart Rate 1: 74 bpm Height: 5'5" SpO2: 93% Weight: 177 lbs 11/25/2017 Blood Pressure 1: 142/84 Code: 8480-6 BMI: 29.5 Code: 09167-8 Heart Rate 1: 69 bpm Height: 5'5" SpO2: 99% Weight: 177 lbs 07/09/2017 Blood Pressure 1: 142/68 Code: 8480-6 BMI: 28.3 Code: 60955-7 Heart Rate 1: 48 bpm Height: 5'5" SpO2: 97% Weight: 170 lbs 04/29/2017 Blood Pressure 1: 148/86 Code: 8480-6 BMI: 28.6 Code: 92292-5 Heart Rate 1: 71 bpm Height: 5'5" SpO2: 95% Weight: 172 lbs 01/07/2017 Blood Pressure 1: 140/70 Code: 8480-6 BMI: 28.8 Code: 45608-9 Heart Rate 1: 68 bpm Height: 5'5" SpO2: 96% Weight: 173 lbs 09/08/2016 Blood Pressure 1: 134/70 Code: 8480-6 BMI: 29.1 Code: 47218-8 Heart Rate 1: 68 bpm Height: 5'5" SpO2: 99% Weight: 175 lbs 05/11/2016 Blood Pressure 1: 138/88 Code: 8480-6 BMI: 29.2 Code: 12620-1 Heart Rate 1: 67 bpm Height: 5'6" SpO2: 95% Weight: 178 lbs 02/10/2016 Blood Pressure 1: 148/82 Code: 8480-6 BMI: 28.8 Code: 71986-4 Heart Rate 1: 63 bpm Height: 5'6" SpO2: 97% Weight: 176 lbs 12/18/2015 Blood Pressure 1: 130/78 Code: 8480-6 BMI: 28.8 Code: 03230-6 Heart Rate 1: 66 bpm Height: 5'6" SpO2: 98% Weight: 176 lbs 12/16/2015 Blood Pressure 1: 162/100 Code: 8480-6 BMI: 28.8 Code: 09811-7 Heart Rate 1: 65 bpm Height: 5'6" SpO2: 98% Weight: 176 lbs 12/09/2015 Blood Pressure 1: 142/70 Code: 8480-6 BMI: 28.4 Code: 64931-9 Heart Rate 1: 65 bpm Height: 5'6" SpO2: 96% Weight: 173 lbs 10/28/2015 Blood Pressure 1: 160/82 Code: 8480-6 Blood Pressure 1: 140/86 Code: 8480-6 BMI: 28.5 Code: 44776-1 Heart Rate 1: 60 bpm Height: 5'6" SpO2: 96% Weight: 174 lbs 08/26/2015 Blood Pressure 1: 158/80 Code: 8480-6 Blood Pressure 1: 148/88 Code: 8480-6 BMI: 28.0 Code: 94641-3 Heart Rate 1: 68 bpm Height: 5'6" SpO2: 98% Weight: 171 lbs 02/12/2015 Blood Pressure 1: 136/74 Code: 8480-6 BMI: 25.9 Code: 11573-9 Heart Rate 1: 61 bpm Height: 5'6" SpO2: 97% Weight: 158 lbs 11/12/2014 Blood Pressure 1: 140/82 Code: 8480-6 BMI: 25.9 Code: 50641-3 Heart Rate 1: 64 bpm Height: 5'6" SpO2: 97% Weight: 158 lbs 07/23/2014 Blood Pressure 1: 138/88 Code: 8480-6 BMI: 25.6 Code: 68450-5 Heart Rate 1: 57 bpm Height: 5'6" SpO2: 95% Weight: 156 lbs 03/21/2014 Blood Pressure 1: 124/64 Code: 8480-6 Heart Rate 1: 64 bpm Weight: 147 lbs 01/25/2014 Blood Pressure 1: 130/70 Code: 8480-6 BMI: 24.4 Code: 65059-9 Height: 5'6" Weight: 149 lbs 10/23/2013 Blood Pressure 1: 152/82 Code: 8480-6 BMI: 25.7 Code: 78832-5 Heart Rate 1: 60 bpm Height: 5'6" Weight: 157 lbs 08/21/2013 Blood Pressure 1: 142/90 Code: 8480-6 BMI: 25.9 Code: 71438-0 Heart Rate 1: 56 bpm Height: 5'6" Weight: 158 lbs 07/20/2013 Blood Pressure 1: 164/80 Code: 8480-6 BMI: 26.2 Code: 71312-4 Heart Rate 1: 60 bpm Height: 5'6" SpO2: 98% Weight: 160 lbs 06/22/2013 Blood Pressure 1: 140/84 Code: 8480-6 BMI: 28.2 Code: 71780-4 Heart Rate 1: 60 bpm Height: 5'6" Weight: 172 lbs Functional Status No Functional Status data History of Present Illness Symptom Name Status Result Effective Date Notes Quality chronic 12/19/2018 None Quality primary hypertension 12/19/2018 None Onset and Resolution ongoing 12/19/2018 None Onset of Symptom during adulthood 12/19/2018 None Blood Pressure Values patient checking blood pressure at home - did not bring in readings 12/19/2018 -Checks occasionally if it feels high Severity not consistently severe symptoms, the symptoms fluctuate from no symptoms to anxiety and headaches 12/19/2018 None Frequency of Episodes unchanged 12/19/2018 None Alleviating Factors medication 12/19/2018 None Pertinent Findings Denies dizziness 12/19/2018 None Pertinent Findings dyspnea 12/19/2018 None Pertinent Findings Denies edema 12/19/2018 None Onset of Symptom during adulthood 12/19/2018 None Alleviating Factors medication 12/19/2018 None Exacerbating Factors diet 12/19/2018 None Onset and Resolution gradual in onset 12/19/2018 None Quality chronic 09/19/2018 None Quality primary hypertension 09/19/2018 None Onset and Resolution ongoing 09/19/2018 None Onset of Symptom during adulthood 09/19/2018 None Blood Pressure Values patient checking blood pressure at home - did not bring in readings 09/19/2018 -Checks occasionally if it feels high Alleviating Factors medication 09/19/2018 None Pertinent Findings Denies dizziness 09/19/2018 None Pertinent Findings dyspnea 09/19/2018 None Pertinent Findings Denies edema 09/19/2018 None Onset of Symptom during adulthood 09/19/2018 None Alleviating Factors medication 09/19/2018 None Exacerbating Factors diet 09/19/2018 None Onset and Resolution gradual in onset 09/19/2018 None Severity not consistently severe symptoms, the symptoms fluctuate from no symptoms to anxiety and headaches 09/19/2018 None Frequency of Episodes unchanged 09/19/2018 None hypertension Quality chronic 06/16/2018 None hypertension Quality primary hypertension 06/16/2018 None hypertension Onset and Resolution ongoing 06/16/2018 None hypertension Onset of Symptom during adulthood 06/16/2018 None hypertension Blood Pressure Values patient checking blood pressure at home - did not bring in readings 06/16/2018 -Checks occasionally if it feels high hypertension Alleviating Factors medication 06/16/2018 None hypertension Pertinent Findings Denies dizziness 06/16/2018 None hypertension Pertinent Findings dyspnea 06/16/2018 None hypertension Pertinent Findings Denies edema 06/16/2018 None hyperlipidemia Onset and Resolution gradual in onset 06/16/2018 None hyperlipidemia Onset of Symptom during adulthood 06/16/2018 None hyperlipidemia Alleviating Factors medication 06/16/2018 None hyperlipidemia Exacerbating Factors diet 06/16/2018 None pain, generalized Location diffusely 06/16/2018 bilateral legs, right hip pain, generalized Quality chronic 06/16/2018 None pain, generalized Quality intermittent 06/16/2018 None pain, generalized Onset and Resolution ongoing 06/16/2018 None pain, generalized Limitation on Activities moderately limits activities 06/16/2018 None pain, generalized Frequency of Episodes daily 06/16/2018 None pain, generalized Alleviating Factors rest 06/16/2018 None pain, generalized Exacerbating Factors exertion 06/16/2018 None hypertension Quality chronic 03/25/2018 None hypertension Quality primary hypertension 03/25/2018 None hypertension Onset and Resolution ongoing 03/25/2018 None hypertension Onset of Symptom during adulthood 03/25/2018 None hypertension Blood Pressure Values patient checking blood pressure at home - did not bring in readings 03/25/2018 -Checks occasionally if it feels high hypertension Alleviating Factors medication 03/25/2018 None hypertension Pertinent Findings Denies dizziness 03/25/2018 None hypertension Pertinent Findings dyspnea 03/25/2018 "some" hypertension Pertinent Findings edema 03/25/2018 -this past weekend, but she was in a car for a long time pain, generalized Location diffusely 03/25/2018 (neck, lower back, legs) pain, generalized Quality worsening 03/25/2018 None pain, generalized Onset and Resolution ongoing 03/25/2018 None pain, generalized Onset of Symptom during adulthood 03/25/2018 None pain, generalized Limitation on Activities moderately limits activities 03/25/2018 None pain, generalized Frequency of Episodes increasing 03/25/2018 None rash Location-Major in the groin area 03/25/2018 left rash Color red 03/25/2018 None rash Onset of Symptom 1 week ago 03/25/2018 None rash Pertinent Findings itching 03/25/2018 None Annual Medicare Wellness Exam Describe Your Health fair 12/03/2017 None Annual Medicare Wellness Exam Alcohol Use does not drink any alcohol 12/03/2017 None Annual Medicare Wellness Exam Motor Vehicle Safety always fastens seat belt: yes 12/03/2017 None Annual Medicare Wellness Exam Motor Vehicle Safety drives after drinking: N/A 12/03/2017 None Annual Medicare Wellness Exam Motor Vehicle Safety rides with someone who has been drinking: no 12/03/2017 None Annual Medicare Wellness Exam Smoking and Tobacco Use cigarette smoker 12/03/2017 None Annual Medicare Wellness Exam Exercise Habits does not exercise 12/03/2017 None Annual Medicare Wellness Exam Blood Pressure (self reported) diagnosed with hypertension 12/03/2017 None Annual Medicare Wellness Exam Cholesterol (self reported) diagnosed with elevated cholesterol 12/03/2017 None Annual Medicare Wellness Exam Blood Glucose (self reported) don't know 12/03/2017 None Annual Medicare Wellness Exam Hemaglobin A-1C (self reported) never checked 12/03/2017 None Annual Medicare Wellness Exam Hemaglobin A-1C (self reported) don't know 12/03/2017 None Annual Medicare Wellness Exam Depression (last 6 months) some of the time 12/03/2017 None Annual Medicare Wellness Exam Depression or Hopelessness some of the time 12/03/2017 None Annual Medicare Wellness Exam Aspirin Use yes 12/03/2017 None Annual Medicare Wellness Exam Hours of Sleep 6-8 12/03/2017 None Annual Medicare Wellness Exam Interaction with Friends yes 12/03/2017 None Annual Medicare Wellness Exam Social & Emotional Support always 12/03/2017 None Annual Medicare Wellness Exam Stress almost all of the time 12/03/2017 None Annual Medicare Wellness Exam Handling Stress often has problems coping 12/03/2017 None Annual Medicare Wellness Exam Interests & Pleasure some of the time 12/03/2017 None Annual Medicare Wellness Exam Life Satisfaction satisfied 12/03/2017 None Annual Medicare Wellness Exam Nutrition servings of fried food / high fat foods per day: 0-1 12/03/2017 None Annual Medicare Wellness Exam Nutrition servings of high fiber / whole grain per day: 0-1 12/03/2017 None Annual Medicare Wellness Exam Nutrition servings of vegetables / fruit per day: 2-3 12/03/2017 None Annual Medicare Wellness Exam Sun Exposure protects skin when outdoors: no 12/03/2017 None hypertension Quality primary hypertension 11/25/2017 None hypertension Quality chronic 11/25/2017 None hypertension Onset and Resolution ongoing 11/25/2017 None hypertension Onset of Symptom during adulthood 11/25/2017 None hypertension Alleviating Factors medication 11/25/2017 None hypertension Blood Pressure Values patient checking blood pressure at home - did not bring in readings 11/25/2017 -Checks occasionally if it feels high hypertension Pertinent Findings Denies dizziness 11/25/2017 None hypertension Pertinent Findings dyspnea 11/25/2017 "some" hypertension Pertinent Findings edema 11/25/2017 -this past weekend, but she was in a car for a long time gas and bloating Pertinent Findings flatulence 11/25/2017 None gas and bloating Frequency of Episodes daily 11/25/2017 None gas and bloating Onset and Resolution ongoing 11/25/2017 None gas and bloating Timing of Episodes in the afternoon 11/25/2017 None gas and bloating Timing of Episodes in the evening 11/25/2017 None gas and bloating Triggers no known associated factors 11/25/2017 None gas and bloating Severity moderate 11/25/2017 None pain, generalized Location diffusely 11/25/2017 (neck, lower back, legs) pain, generalized Quality worsening 11/25/2017 None pain, generalized Onset and Resolution ongoing 11/25/2017 None pain, generalized Onset of Symptom during adulthood 11/25/2017 None pain, generalized Frequency of Episodes increasing 11/25/2017 None pain, generalized Limitation on Activities moderately limits activities 11/25/2017 None blood pressure followup Quality chronic 07/09/2017 None blood pressure followup Onset and Resolution ongoing 07/09/2017 None blood pressure followup Onset of Symptom during adulthood 07/09/2017 None blood pressure followup Blood Pressure Values not checking blood pressure at home 07/09/2017 None blood pressure followup Severity mild 07/09/2017 None blood pressure followup Frequency of Episodes unchanged 07/09/2017 None blood pressure followup Length of Episodes _ months 07/09/2017 None blood pressure followup Triggers no known associated factors 07/09/2017 None rash Location-Major on the upper body 04/29/2017 None rash Location-Extremities in the left axilla 04/29/2017 None rash Location-Extremities in the right axilla 04/29/2017 None rash Location-Extremities in both axillae 04/29/2017 None rash Quality acute 04/29/2017 None rash Quality improving 04/29/2017 None rash Onset and Resolution sudden in onset 04/29/2017 None rash Onset of Symptom 3 weeks ago 04/29/2017 None rash Pertinent Findings Denies itching 04/29/2017 None rash Pertinent Findings Denies muscle pain 04/29/2017 None rash Pertinent Findings Denies pain 04/29/2017 None rash Pertinent Findings Denies tenderness 04/29/2017 None blood pressure followup Quality chronic 01/07/2017 None blood pressure followup Onset and Resolution ongoing 01/07/2017 None blood pressure followup Onset of Symptom during adulthood 01/07/2017 None blood pressure followup Blood Pressure Values not checking blood pressure at home 01/07/2017 None blood pressure followup Severity mild 01/07/2017 None blood pressure followup Frequency of Episodes unchanged 01/07/2017 None blood pressure followup Length of Episodes _ months 01/07/2017 None blood pressure followup Triggers no known associated factors 01/07/2017 None blood pressure followup Alleviating Factors medication 01/07/2017 None blood pressure followup Exacerbating Factors stress 01/07/2017 None blood pressure followup Pertinent Findings Denies confusion 01/07/2017 None blood pressure followup Pertinent Findings Denies decreased energy 01/07/2017 None blood pressure followup Pertinent Findings Denies dizziness 01/07/2017 None blood pressure followup Pertinent Findings Denies edema 01/07/2017 None blood pressure followup Quality chronic 09/08/2016 None blood pressure followup Onset and Resolution ongoing 09/08/2016 None blood pressure followup Onset of Symptom during adulthood 09/08/2016 None blood pressure followup Blood Pressure Values not checking blood pressure at home 09/08/2016 None blood pressure followup Severity mild 09/08/2016 None blood pressure followup Frequency of Episodes unchanged 09/08/2016 None blood pressure followup Length of Episodes _ months 09/08/2016 None blood pressure followup Triggers no known associated factors 09/08/2016 None blood pressure followup Alleviating Factors medication 09/08/2016 None blood pressure followup Exacerbating Factors stress 09/08/2016 None blood pressure followup Pertinent Findings Denies confusion 09/08/2016 None blood pressure followup Pertinent Findings Denies decreased energy 09/08/2016 None blood pressure followup Pertinent Findings Denies dizziness 09/08/2016 None blood pressure followup Pertinent Findings Denies edema 09/08/2016 None blood pressure followup Quality chronic 05/11/2016 None blood pressure followup Onset and Resolution ongoing 05/11/2016 None blood pressure followup Onset of Symptom during adulthood 05/11/2016 None blood pressure followup Blood Pressure Values not checking blood pressure at home 05/11/2016 None blood pressure followup Severity mild 05/11/2016 None blood pressure followup Frequency of Episodes unchanged 05/11/2016 None blood pressure followup Length of Episodes _ months 05/11/2016 None blood pressure followup Triggers no known associated factors 05/11/2016 None blood pressure followup Alleviating Factors medication 05/11/2016 None blood pressure followup Exacerbating Factors stress 05/11/2016 None blood pressure followup Pertinent Findings Denies confusion 05/11/2016 None blood pressure followup Pertinent Findings Denies decreased energy 05/11/2016 None blood pressure followup Pertinent Findings Denies dizziness 05/11/2016 None blood pressure followup Pertinent Findings Denies edema 05/11/2016 None blood pressure followup Quality chronic 02/10/2016 None blood pressure followup Onset and Resolution ongoing 02/10/2016 None blood pressure followup Onset of Symptom during adulthood 02/10/2016 None blood pressure followup Blood Pressure Values not checking blood pressure at home 02/10/2016 None blood pressure followup Severity mild 02/10/2016 None blood pressure followup Frequency of Episodes unchanged 02/10/2016 None blood pressure followup Length of Episodes _ months 02/10/2016 None blood pressure followup Triggers no known associated factors 02/10/2016 None blood pressure followup Alleviating Factors medication 02/10/2016 None blood pressure followup Exacerbating Factors stress 02/10/2016 None blood pressure followup Pertinent Findings Denies confusion 02/10/2016 None blood pressure followup Pertinent Findings Denies dizziness 02/10/2016 None blood pressure followup Pertinent Findings decreased energy 02/10/2016 None blood pressure followup Pertinent Findings Denies edema 02/10/2016 None low back and leg pain Location on the right 12/18/2015 None low back and leg pain Location right buttock 12/18/2015 None low back and leg pain Radiating the right groin 12/18/2015 None low back and leg pain Quality sharp pain 12/18/2015 None low back and leg pain Quality throbbing 12/18/2015 None low back and leg pain Quality constant 12/18/2015 None low back and leg pain Quality discomfort 12/18/2015 None low back and leg pain Onset and Resolution sudden in onset 12/18/2015 None low back and leg pain Onset of Symptom 3 days ago 12/18/2015 None low back and leg pain Limitation on Activities restricts weight bearing activity 12/18/2015 None low back and leg pain Frequency of Episodes daily 12/18/2015 None low back and leg pain Location on the right 12/16/2015 None low back and leg pain Location right buttock 12/16/2015 None low back and leg pain Radiating the right groin 12/16/2015 None low back and leg pain Quality sharp pain 12/16/2015 None low back and leg pain Quality throbbing 12/16/2015 None low back and leg pain Quality constant 12/16/2015 None low back and leg pain Quality discomfort 12/16/2015 None low back and leg pain Onset and Resolution sudden in onset 12/16/2015 None low back and leg pain Onset of Symptom 3 days ago 12/16/2015 None low back and leg pain Limitation on Activities restricts weight bearing activity 12/16/2015 None low back and leg pain Frequency of Episodes daily 12/16/2015 None low back and leg pain Mechanism of injury unknown 12/16/2015 None hip pain Location on the right 12/09/2015 None hip pain Location in the groin 12/09/2015 None hip pain Location in the lateral thigh 12/09/2015 None hip pain Quality sharp pain 12/09/2015 None hip pain Quality constant 12/09/2015 None hip pain Onset of Symptom 1 months ago 12/09/2015 None hip pain Pertinent Findings Denies decreased range of motion 12/09/2015 None hip pain Pertinent Findings Denies limping 12/09/2015 None hip pain Pertinent Findings pain at rest 12/09/2015 None hip pain Pertinent Findings pain with movement 12/09/2015 None hip pain Pertinent Findings Denies tingling 12/09/2015 None cigarette smoking Amount of Exposure 1-2 packs per day 12/09/2015 None cigarette smoking Onset of Symptom _ years ago 12/09/2015 None cigarette smoking Prior Attempts cutting back 12/09/2015 None cigarette smoking Prior Attempts medication use 12/09/2015 None cigarette smoking Pertinent Findings Denies chronic cough 12/09/2015 None cigarette smoking Pertinent Findings Denies loss of taste 12/09/2015 None hypertension Quality chronic 10/28/2015 None hypertension Onset and Resolution ongoing 10/28/2015 None hypertension Onset of Symptom during adulthood 10/28/2015 None hypertension Frequency of Episodes unchanged 10/28/2015 None hypertension Triggers no known associated factors 10/28/2015 None hypertension Pertinent Findings Denies confusion 10/28/2015 None hypertension Pertinent Findings Denies dizziness 10/28/2015 None hypertension Severity not consistently severe symptoms, the symptoms fluctuate from no symptoms to anxiety and headaches 10/28/2015 None hypertension Blood Pressure Values patient checking blood pressure at home - did not bring in readings 10/28/2015 120s-140s/80 at home hypertension Quality chronic 08/26/2015 None hypertension Onset and Resolution ongoing 08/26/2015 None hypertension Onset of Symptom during adulthood 08/26/2015 None hypertension Blood Pressure Values not checking blood pressure at home 08/26/2015 None hypertension Frequency of Episodes unchanged 08/26/2015 None hypertension Triggers no known associated factors 08/26/2015 None hypertension Pertinent Findings Denies confusion 08/26/2015 None hypertension Pertinent Findings Denies dizziness 08/26/2015 None hypertension Onset and Resolution ongoing 02/12/2015 None hypertension Blood Pressure Values not checking blood pressure at home 02/12/2015 None hypertension Frequency of Episodes unchanged 02/12/2015 None hypertension Quality chronic 02/12/2015 None hypertension Onset of Symptom during adulthood 02/12/2015 None cough Onset of Symptom 2 weeks ago 11/12/2014 None cough Pertinent Findings Denies fever 11/12/2014 None cough Pertinent Findings nasal congestion 11/12/2014 None cough Pertinent Findings sputum production 11/12/2014 white cough Pertinent Findings Denies chest discomfort 11/12/2014 None cough Pertinent Findings Denies dyspnea 11/12/2014 None sinus congestion Onset of Symptom 2 weeks ago 11/12/2014 None sinus congestion Pertinent Findings cough 11/12/2014 None sinus congestion Pertinent Findings Denies fever 11/12/2014 None abdominal pain Location in the epigastric area 07/23/2014 None abdominal pain Quality aching 07/23/2014 None abdominal pain Onset and Resolution ongoing 07/23/2014 quite a while abdominal pain Pertinent Findings nausea 07/23/2014 all foods make nauseated abdominal pain Onset of Symptom during adulthood 07/23/2014 None abdominal pain Limitation on Activities does not limit activities 07/23/2014 None abdominal pain Frequency of Episodes increasing 07/23/2014 None abdominal pain Triggers meals 07/23/2014 None abdominal pain Pertinent Findings Denies abdominal distension 07/23/2014 None abdominal pain Pertinent Findings Denies bloating 07/23/2014 None abdominal pain Pertinent Findings Denies dysphagia 07/23/2014 None abdominal pain Pertinent Findings dyspepsia 07/23/2014 None abdominal pain Pertinent Findings heartburn 07/23/2014 None abdominal pain Pertinent Findings Denies fever 07/23/2014 None abdominal pain Pertinent Findings Denies emesis 07/23/2014 None abdominal pain Alleviating Factors proton pump inhibitor 07/23/2014 None ~generic Onset of Symptom 3 weeks ago 03/21/2014 None ~generic Pertinent Findings Denies fever 03/21/2014 None ~generic Unchanged by these Factors medication 03/21/2014 None ~generic Quality intermittent 03/21/2014 None ~generic Onset and Resolution ongoing 03/21/2014 None ~generic Severity mild 03/21/2014 None ~generic Mechanism of injury unknown 03/21/2014 None ~generic Exacerbating Factors medication 03/21/2014 used vaginsil and it made it burn worse and didn't help. hypertension Blood Pressure Values pt checking blood pressure - see scanned document 01/25/2014 None hypertension Pertinent Findings Denies dizziness 01/25/2014 None hypertension Pertinent Findings Denies dyspnea 01/25/2014 None hypertension Pertinent Findings Denies edema 01/25/2014 None hypertension Pertinent Findings Denies decreased energy 01/25/2014 None hypertension Quality chronic 01/25/2014 None hypertension Onset and Resolution ongoing 01/25/2014 None hypertension Onset of Symptom during adulthood 01/25/2014 None hypertension Severity not consistently severe symptoms, the symptoms fluctuate from no symptoms to anxiety and headaches 01/25/2014 None hypertension Frequency of Episodes unchanged 01/25/2014 None hypertension Triggers stress 01/25/2014 None hypertension Alleviating Factors medication 01/25/2014 None hypertension Quality chronic 10/23/2013 None hypertension Onset and Resolution ongoing 10/23/2013 None hypertension Triggers smoking 10/23/2013 pt states that she has been trying to cut back on her smoking - about at 1/2 ppd (down from 1ppd) hypertension Alleviating Factors medication 10/23/2013 None hypertension Exacerbating Factors stress 10/23/2013 None hypertension Blood Pressure Values patient checking blood pressure at home - did not bring in readings 10/23/2013 130/70 on her home reports. dyspepsia Onset and Resolution ongoing 08/21/2013 states was given something for reflux and it has helped some but still unable to sleep laying down. dyspepsia Severity moderate 08/21/2013 None dyspepsia Pertinent Findings Denies nausea 08/21/2013 None dyspepsia Pertinent Findings heartburn 08/21/2013 states sometimes when she tries to lay on her side can feel her heart sometimes like fast, states it's just a crazy feeling and sometimes there is a burning with it also hypertension Quality chronic 08/21/2013 None hypertension Onset and Resolution ongoing 08/21/2013 None hypertension Blood Pressure Values patient checking blood pressure at home - did not bring in readings 08/21/2013 None flare up of rash Location-Major on the back 08/21/2013 None flare up of rash Color red 08/21/2013 None flare up of rash Quality new 08/21/2013 None flare up of rash Length of Episodes 2 weeks 08/21/2013 None flare up of rash Pertinent Findings itching 08/21/2013 None hypertension Severity not consistently severe symptoms, the symptoms fluctuate from no symptoms to anxiety and headaches 08/21/2013 None hypertension Frequency of Episodes unchanged 08/21/2013 None hypertension Triggers no known associated factors 08/21/2013 143/77 AT HOME hypertension Pertinent Findings Denies dizziness 08/21/2013 None hypertension Pertinent Findings Denies dyspnea 08/21/2013 None hypertension Pertinent Findings Denies irritability 08/21/2013 None hypertension Pertinent Findings Denies lethargy 08/21/2013 None hypertension Pertinent Findings Denies obesity 08/21/2013 None hypertension Pertinent Findings Denies palpitations 08/21/2013 None hypertension Pertinent Findings Denies vomiting 08/21/2013 None hypertension Pertinent Findings Denies tachycardia 08/21/2013 None dyspepsia Diet includes spicy foods 08/21/2013 None dyspepsia Significant Medical Conditions acid reflux 08/21/2013 None dyspepsia Triggers no known associated factors 08/21/2013 None dyspepsia Alleviating Factors medication 08/21/2013 None hypertension Quality chronic 07/20/2013 None hypertension Onset and Resolution ongoing 07/20/2013 None hypertension Blood Pressure Values patient checking blood pressure at home - did not bring in readings 07/20/2013 None hypertension Pertinent Findings Denies dizziness 07/20/2013 None hypertension Pertinent Findings Denies dyspnea 07/20/2013 None hypertension Pertinent Findings Denies edema 07/20/2013 None hypertension Pertinent Findings Denies orthostatic hypotension 07/20/2013 None hypertension Pertinent Findings Denies palpitations 07/20/2013 None hypertension Pertinent Findings Denies tachycardia 07/20/2013 None hypertension Onset of Symptom during adulthood 07/20/2013 None hypertension Severity not consistently severe symptoms, the symptoms fluctuate from no symptoms to anxiety and headaches 07/20/2013 None hypertension Triggers smoking 07/20/2013 None hypertension Alleviating Factors medication 07/20/2013 None hypertension Quality chronic 06/22/2013 patient states her BP has been increasing hypertension Quality worsening 06/22/2013 None hypertension Onset and Resolution ongoing 06/22/2013 None hypertension Blood Pressure Values patient checking blood pressure at home - did not bring in readings 06/22/2013 None hypertension Pertinent Findings Denies dizziness 06/22/2013 None hypertension Pertinent Findings Denies dyspnea 06/22/2013 None hypertension Pertinent Findings Denies edema 06/22/2013 None hypertension Pertinent Findings tachycardia 06/22/2013 None hypertension Pertinent Findings palpitations 06/22/2013 None hypertension Pertinent Findings Denies orthostatic hypotension 06/22/2013 None hypertension Pertinent Findings flushed facies 06/22/2013 None hypertension Severity not consistently severe symptoms, the symptoms fluctuate from no symptoms to anxiety and headaches 06/22/2013 None hypertension Frequency of Episodes unchanged 06/22/2013 None hypertension Onset of Symptom during adulthood 06/22/2013 None hypertension Significant Family History hypertension 06/22/2013 None hypertension Triggers no known associated factors 06/22/2013 None hypertension Alleviating Factors medication 06/22/2013 None Advance Directives No Advance Directive data Encounters Encounter Performer Location Codes Date ([id number]) 22286 EST. PATIENT, LEVEL IV Diagnosis: Essential (primary) hypertension[ICD10: I10] Diagnosis: Impaired fasting glucose[ICD10: R73.01] Diagnosis: Mixed hyperlipidemia[ICD10: E78.2] Marily Gonzalez MD, [facility] CPT- 4: 57024 12/19/2018 ([id number]) 21271 EST. PATIENT, LEVEL IV Diagnosis: Essential (primary) hypertension[ICD10: I10] Diagnosis: Peripheral vascular disease, unspecified[ICD10: I73.9] Diagnosis: Rash and other nonspecific skin eruption[ICD10: R21] Diagnosis: Impaired fasting glucose[ICD10: R73.01] Marily Gonzalez MD, [facility] CPT-4: 72197 09/19/2018 ([id number]) 56616 EST. PATIENT, LEVEL IV Diagnosis: Malignant neoplasm of upper lobe, left bronchus or lung[ICD10: C34.12] Diagnosis: Solitary pulmonary nodule[ICD10: R91.1] Diagnosis: Essential (primary) hypertension[ICD10: I10] Diagnosis: Low back pain[ICD10: M54.5] Diagnosis: Tobacco use[ICD10: Z72.0] Marily Gonzalez MD, [facility] CPT-4: 74939 06/16/2018 ([id number]) 70068 EST. PATIENT, LEVEL IV Diagnosis: Essential (primary) hypertension[ICD10: I10] Diagnosis: Major depressive disorder, recurrent, moderate[ICD10: F33.1] Diagnosis: Low back pain[ICD10: M54.5] Diagnosis: Rash and other nonspecific skin eruption[ICD10: R21] Marily Gonzalez MD, [facility] CPT-4: 10623 03/25/2018 ([id number]) 16149 EST. PATIENT, LEVEL IV Diagnosis: Essential (primary) hypertension[ICD10: I10] Diagnosis: Mixed hyperlipidemia[ICD10: E78.2] Diagnosis: Malignant neoplasm of upper lobe, left bronchus or lung[ICD10: C34.12] Diagnosis: Impaired fasting glucose[ICD10: R73.01] Diagnosis: Cervicalgia[ICD10: M54.2] Diagnosis: Low back pain[ICD10: M54.5] Marily Gonzalez MD, [facility] CPT-4: 55932 11/25/2017 ([id number]) 42695 EST. PATIENT, LEVEL III Diagnosis: Essential (primary) hypertension[ICD10: I10] Marily Gonzalez MD, [facility] CPT-4: 63625 07/09/2017 ([id number]) 97697 EST. PATIENT, LEVEL III Diagnosis: Gas pain[ICD10: R14.1] Diagnosis: Rash and other nonspecific skin eruption[ICD10: R21] Marily Gonzalez MD, [facility] CPT-4: 49280 04/29/2017 ([id number]) 00009 EST. PATIENT, LEVEL III Diagnosis: Essential (primary) hypertension[ICD10: I10] Diagnosis: Malignant neoplasm of upper lobe, left bronchus or lung[ICD10: C34.12] Diagnosis: Chronic obstructive pulmonary disease, unspecified[ICD10: J44.9] Marily Gonzalez MD, [facility] CPT-4: 00386 01/07/2017 ([id number]) 24158 EST. PATIENT, LEVEL IV Diagnosis: Essential (primary) hypertension[ICD10: I10] Diagnosis: Mixed hyperlipidemia[ICD10: E78.2] Diagnosis: Tobacco use[ICD10: Z72.0] Diagnosis: Malignant neoplasm of upper lobe, left bronchus or lung[ICD10: C34.12] Marily Gonzalez MD, [facility] CPT-4: 94036 09/08/2016 ([id number]) 39371 EST. PATIENT, LEVEL IV Diagnosis: Essential (primary) hypertension[ICD10: I10] Diagnosis: Mixed hyperlipidemia[ICD10: E78.2] Diagnosis: Generalized anxiety disorder[ICD10: F41.1] Diagnosis: Other specified disorders of bone density and structure, multiple sites[ICD10: M85.89] Marily Gonzalez MD, [facility] CPT-4: 75512 05/11/2016 ([id number]) 87082 EST. PATIENT, LEVEL IV Diagnosis: Essential (primary) hypertension[ICD10: I10] Diagnosis: Generalized anxiety disorder[ICD10: F41.1] Diagnosis: Tobacco use[ICD10: Z72.0] Marily Gonzalez MD, [facility] CPT-4: 53629 02/10/2016 02190 EST. PATIENT, LEVEL IV Diagnosis: Myalgia[ICD10: M79.1] Diagnosis: Low back pain[ICD10: M54.5] Joy Gonzalez MD, [facility] CPT-4: 61915 12/18/2015 [id number] EST. PATIENT, LEVEL IV Diagnosis: Low back pain[ICD10: M54.5] Diagnosis: Pain in right hip[ICD10: M25.551] Joy Gonzalez MD, [facility] CPT-4: 16801 12/16/2015 ([id number]) 63576 EST. PATIENT, LEVEL IV Diagnosis: Low back pain[ICD10: M54.5] Diagnosis: Malignant neoplasm of upper lobe, left bronchus or lung[ICD10: C34.12] Diagnosis: Tobacco use[ICD10: Z72.0] Diagnosis: Essential (primary) hypertension[ICD10: I10] Diagnosis: Generalized anxiety disorder[ICD10: F41.1] Marily Gonzalez MD, [facility] CPT-4: 97618 12/09/2015 ([id number]) 55644 EST. PATIENT, LEVEL IV Diagnosis: Essential (primary) hypertension[ICD10: I10] Diagnosis: Tobacco use[ICD10: Z72.0] Diagnosis: Solitary pulmonary nodule[ICD10: R91.1] Marily Gonzalez MD, [facility] CPT-4: 10263 10/28/2015 ([id number]) 89249 EST. PATIENT, LEVEL IV Diagnosis: Essential (primary) hypertension[ICD10: I10] Diagnosis: Bilateral primary osteoarthritis of hip[ICD10: M16.0] Diagnosis: Solitary pulmonary nodule[ICD10: R91.1] Marily Gonzalez MD, [facility] CPT-4: 11654 08/26/2015 ([id number]) 45207 EST. PATIENT, LEVEL IV Diagnosis: ESSENTIAL HYPERTENSION[ICD9: 401.9] Diagnosis: Pulmonary nodule[ICD9: 793.11] Teresa Gonzalez MD, [facility] CPT-4: 05539 02/12/2015 ([id number]) 71573 EST. PATIENT, LEVEL III Diagnosis: ACUTE BRONCHITIS[ICD9: 466.0] Diagnosis: ALLERGIC RHINITIS[ICD9: 477.9] Teresa Gonzalez MD, [facility] CPT-4: 43763 11/12/2014 ([id number]) 54236 EST. PATIENT, LEVEL IV Diagnosis: ESOPHAGEAL REFLUX[ICD9: 530.81] Diagnosis: ESSENTIAL HYPERTENSION[ICD9: 401.9] Diagnosis: Elevated blood sugar[ICD9: 790.29] Marily Gonzalez MD, [facility] CPT- 4: 29398 07/23/2014 ([id number]) 02513 EST. PATIENT, LEVEL III Diagnosis: Vaginal yeast infection[ICD9: 112.1] Diagnosis: Vaginal burning[ICD9: 625.8] Diagnosis: History of UTI[ICD9: V13.02] Diagnosis: Dysuria[ICD9: 788.1] Marily Gonzalez MD [facility] CPT-4: 95844 03/21/2014 ([id number]) 05339 EST. PATIENT, LEVEL III Diagnosis: ESSENTIAL HYPERTENSION[ICD9: 401.9] Marily Gonzalez MD [facility] CPT-4: 62560 01/25/2014 ([id number]) 47041 EST. PATIENT, LEVEL III Diagnosis: ESSENTIAL HYPERTENSION[SNOMED: 06664349] Diagnosis: ESOPHAGEAL REFLUX[ICD9: 530.81] Teresa Gonzalez MD [facility] CPT-4: 07961 10/23/2013 ([id number]) 00066 EST. PATIENT, LEVEL IV Diagnosis: ESOPHAGEAL REFLUX[ICD9: 530.81] Diagnosis: ESSENTIAL HYPERTENSION[SNOMED: 58798357] Diagnosis: Rash[ICD9: 782.1] Marily Gonzalez MD [facility] CPT-4: 11733 08/21/2013 ([id number]) 72486 EST. PATIENT, LEVEL IV Diagnosis: Muscle ache of extremity[ICD9: 729.1] Diagnosis: Tingling in extremities[ICD9: 782.0] Diagnosis: ESSENTIAL HYPERTENSION[SNOMED: 24053307] Diagnosis: GERD (gastroesophageal reflux disease)[ICD9: 530.81] Diagnosis: Elevated blood sugar[ICD9: 790.29] Marily Gonzalez MD [facility] CPT- 4: 73564 07/20/2013 OFFICE VISIT, NEW - LEVEL 3 Diagnosis: ESSENTIAL HYPERTENSION[SNOMED: 45946073] Diagnosis: Tobacco use[ICD9: 305.1] Diagnosis: Depression[ICD9: 311] Marily Gonzalez MD [facility] CPT-4: 01882 06/22/2013 ([id number]) BEHAV CHNG SMOKING 3-10 MIN Diagnosis: [ICD9: ] Marily Gonzalez MD [facility] CPT-4: 88540 06/22/2013 Plan of Care Planned Activity Notes Codes Status Date Visit Plan: Hypertension - well controlled - continue with current medications, continue with no added salt diet. Pt has been encouraged to exercise daily. The pt has been advised to call the office if there are any acute concerns about change in blood pressure readings at home. Hyperlipidemia- check labs Elevated blood sugars-check Hgb A1C 12/19/2018 Patient Education: Patient Medication Summary Completed 12/19/2018 Patient Education: Cholesterol Management Completed 12/19/2018 Care Plan: Comp Metabolic Pending 12/19/2018 Care Plan: Cbc With Differential Pending 12/19/2018 Care Plan: %Hba1C LOINC : 65753-6 Pending 12/19/2018 Care Plan: Tsh Pending 12/19/2018 Care Plan: Lipid Pending 12/19/2018 Visit Plan: Hypertension - well controlled -will switch back to diovan due to availability of benicar, continue with no added salt diet. Pt has been encouraged to exercise daily. The pt has been advised to call the office if there are any acute concerns about change in blood pressure readings at home. Rash -under arms-stop new deodorant -rx for nystatin/bethamethasone creams provided and instructed on use-call if rash does not resolve Elevated blood sugars-check fasting labs Intermittent claudication -check TA 09/19/2018 Appointment: Marily Valerio WPtel: [address] [place], [place] [phone] (30 min) Complex 09/19/2018 Patient Education: Patient Medication Summary Completed 09/19/2018 Appointment: Marily Valerio WPtel: [phone] (15 min) Moderate 09/16/2018 Patient Education: Patient Medication Summary Completed 06/27/2018 Visit Plan: Lung nodule -right lung -on surveillance -patient also has history of left lung cancer with lobectomy -does not want to go to for oncology -wants to see Dr Mata at [facility] in [place] -will send referral Lumbar radiculopathy -rx for gabapentin provided and instructed on use - recommend patient return to Dr Herrera to discussed epidural injections HTN-controlled- no changes Tobacco use-patient continues to smoke and is not interested in quitting -smoking cessation encouraged 06/16/2018 Appointment: Marily Valerio WPtel: [address] [place], [place] [phone] [place] (30 min) Complex 06/16/2018 Patient Education: Patient Medication Summary Completed 06/16/2018 Patient Education: Back Pain Completed 06/16/2018 Visit Plan: Hypertension - well controlled - continue with current medications, continue with no added salt diet. Pt has been encouraged to exercise daily. The pt has been advised to call the office if there are any acute concerns about change in blood pressure readings at home. Depression - uncontrolled - Pt has been counseled about the diagnosis of depression, the potential causes, and risks associated with the diagnosis. The pt denies suicidal ideation, or plans. The patient has been counseled about treatment options, and understands the risks associated with treatment of depression, as well as the risks associated with NOT treating the depression. I believe the pt will benefit from medical intervention and an increase in antidepressant has been appropriately prescribed for this patient. Rash-rx for nystatin cream- call if rash does not resolve Low back pain-spinal stenosis-patient to start PT 03/25/2018 Appointment: Marily Valerio WPtel: [address] [place], [place] [phone] [place] (15 min) Moderate 03/25/2018 Patient Education: Patient Medication Summary Completed 03/25/2018 Visit Plan: Medicare Exam - today we discussed the patients past history, immunizations, preventative exams/evaluations - colonoscopy, fecal occult blood testing, routine labs for renal function, glucose, cholesterol, osteoporosis evaluations, cardiovascular testing and cancer screenings. We have also discussed mental health and the signs/symptoms of depression. The patient was advised of home safety evaluations and the need to make sure that as the aging process continues, we need to be aware of different ways to make the home a safer place to reside. The patient has also been counseled that exercise is necessary - and of utmost importance as we age to help decrease fall risk and to maintain independence in the home. Today we discussed the need for the patient to create paperwork for Advanced directives as well as for the patient to provide this office with a copy of her DOPA paperwork for health care surrogate. Bilateral leg pain-suspect intermittent claudication-will schedule MRI lumbar spine first and then consider vascular studies 12/03/2017 Patient Education: Patient Medication Summary Completed 12/03/2017 Visit Plan: Hypertension - well controlled - continue with current medications, continue with no added salt diet. Pt has been encouraged to exercise daily. The pt has been advised to call the office if there are any acute concerns about change in blood pressure readings at home. Hyperlipidemia - pt has been counseled about appropriate diet, exercise, and need for low fat food choices. I have discussed the need for the patient to take medications as prescribed. If the patient has negative side effects from the medication, they are to CALL the office and not abruptly discontinue the medication without discussion with a practitioner in the office. We will check labs in 3-6 months for follow up on the patient's chronic medical problem and to assure normal liver response to medications. Depression - uncontrolled - Pt has been counseled about the diagnosis of depression, the potential causes, and risks associated with the diagnosis. The pt denies suicidal ideation, or plans. The patient has been counseled about treatment options, and understands the risks associated with treatment of depression, as well as the risks associated with NOT treating the depression. I believe the pt will benefit from medical intervention and an antidepressant has been appropriately prescribed for this patient. Neck and low back pain-xrays today-MRI as indicated-discussed referral to pain management for injections vs PT 11/25/2017 Appointment: Marily Valerio WPtel: [phone] (15 min) Moderate 11/25/2017 Patient Education: Patient Medication Summary Completed 11/25/2017 Care Plan: X-RAY EXAM L-S SPINE 2/3 VWS LOINC : 07387-5 Pending 11/25/2017 Care Plan: X-RAY EXAM NECK SPINE 2-3 VW LOINC : 29810-9 Pending 11/25/2017 Appointment: Marily Valerio WPtel: [address] [place], [place] [phone] (15 min) Moderate 11/02/2017 Visit Plan: Hypertension - well controlled - continue with current medications, continue with no added salt diet. Pt has been encouraged to exercise daily. The pt has been advised to call the office if there are any acute concerns about change in blood pressure readings at home. Lung cancer-PREM lobectomy 06/2017-followed by OLLIE and Dr Ryan 07/09/2017 Appointment: Marily Valerio WPtel: [address] [place], [place] [phone] [place] [address] (15 min) Moderate 07/09/2017 Patient Education: Patient Medication Summary Completed 07/09/2017 Patient Education: Smoking and Tobacco Addiction Completed 07/09/2017 Appointment: Marily Valerio WPtel: [address] [place], [place] [phone] [place] [address] (15 min) Moderate 07/08/2017 Visit Plan: Gas and bloating-cut out dairy x 2 weeks-increase gas x to TID-call if symptoms uncontrolled Rash-rx for nystatin powder provided-keep clean/dry-call if does not resolve or if any worse 04/29/2017 Appointment: Marily Valerio WPtel: [address] [place], [place] [phone] [place] [address] (15 min) Moderate 04/29/2017 Patient Education: Patient Medication Summary Completed 04/29/2017 Patient Education: Smoking and Tobacco Addiction Completed 04/29/2017 Visit Plan: Hypertension - well controlled - continue with current medications, continue with no added salt diet. Pt has been encouraged to exercise daily. The pt has been advised to call the office if there are any acute concerns about change in blood pressure readings at home. PREM lung cancer- not a surgical candidate-post radiation-seeing Dr Ryan at the cancer center COPD- tobacco use-patient trying to quit smoking-going to start nicotine patches 01/07/2017 Appointment: Marily Valerio WPtel: [address] [place], [place] [phone] (15 min) Moderate 01/07/2017 Patient Education: Patient Medication Summary Completed 01/07/2017 Patient Education: Smoking and Tobacco Addiction Completed 01/07/2017 Patient Education: Hypertension Completed 01/07/2017 Appointment: Marily Valerio WPtel: [address] [place] [address] (30 min) Complex 01/05/2017 Visit Plan: Hypertension - well controlled - continue with current medications, continue with no added salt diet. Pt has been encouraged to exercise daily. The pt has been advised to call the office if there are any acute concerns about change in blood pressure readings at home. Hyperlipidemia - pt has been counseled about appropriate diet, exercise, and need for low fat food choices. I have discussed the need for the patient to take medications as prescribed. If the patient has negative side effects from the medication, they are to CALL the office and not abruptly discontinue the medication without discussion with a practitioner in the office. We will check labs in 3-6 months for follow up on the patient's chronic medical problem and to assure normal liver response to medications. Tobacco abuse - chronic condition for this patient. Patient has been counseled about need to stop smoking due to the negative health affects. Pt has vocalized understanding and states that they will consider smoking cessation, but the pt is not yet ready to use medication to assist cessation. Lung cancer-post radiation-will see Dr Ryan in 09/08/2016 Appointment: Marily Valerio WPtel: [phone] (15 min) Moderate 09/08/2016 Patient Education: Patient Medication Summary Completed 09/08/2016 Patient Education: Smoking and Tobacco Addiction Completed 09/08/2016 Care Plan: Comp Metabolic Cancelled 09/08/2016 Care Plan: Cbc With Differential Cancelled 09/08/2016 Care Plan: Tsh Cancelled 09/08/2016 Care Plan: Lipid Cancelled 09/08/2016 Visit Plan: Hypertension - well controlled - continue with current medications, continue with no added salt diet. Pt has been encouraged to exercise daily. The pt has been advised to call the office if there are any acute concerns about change in blood pressure readings at home. Hyperlipidemia - pt has been counseled about appropriate diet, exercise, and need for low fat food choices. I have discussed the need for the patient to take medications as prescribed. If the patient has negative side effects from the medication, they are to CALL the office and not abruptly discontinue the medication without discussion with a practitioner in the office. We will check labs in 3-6 months for follow up on the patient's chronic medical problem and to assure normal liver response to medications. Anxiety-fairly well controlled-no change in treatment at this time Osteopenia-check bone density 05/11/2016 Appointment: Marily Valerio WPtel: [phone] [phone] (15 min) Moderate 05/11/2016 Patient Education: Patient Medication Summary Completed 05/11/2016 Patient Education: Smoking and Tobacco Addiction Completed 05/11/2016 Visit Plan: Hypertension - well controlled - continue with current medications, continue with no added salt diet. Pt has been encouraged to exercise daily. The pt has been advised to call the office if there are any acute concerns about change in blood pressure readings at home. Anxiety - the patient has uncontrolled anxiety and will benefit from an SSRI on a daily basis to attempt control of the symptoms of anxiety (tachycardia, overwhelming sensations, stress, insomnia, etc). Pt is aware of the risks and benefits of treatment with the above medications. Tobacco abuse - chronic condition for this patient. Patient has been counseled about need to stop smoking due to the negative health affects. Pt has vocalized understanding and states that they will consider smoking cessation, but the pt is not yet ready to use medication to assist cessation. 02/10/2016 Patient Education: Patient Medication Summary Completed 02/10/2016 Patient Education: Smoking and Tobacco Addiction Completed 02/10/2016 Care Plan: MRI LUMBAR SPINE W/O DYE [facility] : 92994-4 Cancelled 01/17/2016 Visit Plan: Continued Low back pain - will order MRI - the patient was instructed in appropriate posture, need for weight loss to alleviate abdominal obesity that is worsening the patient's back pain.. The pt is to use prn antiinflammatories to manage acute pain. The patient is to call the office if the pain is worsening or does not improve. Myalgias - Will stop statin, will order labs. Sacroiliitis - back exercises discussed with the patient, pt to continue with anti-inflammatories. Pt is to call if the symptoms do not improve or if they worsen. 12/18/2015 Appointment: Marily Vaelrio WPtel: [address] [place], [place] [phone] (30 min) Complex 12/18/2015 Patient Education: Patient Medication Summary Completed 12/18/2015 Patient Education: Smoking and Tobacco Addiction Completed 12/18/2015 Visit Plan: Joint Injection - Right SI joint - Pt was given post - injection instructions. The pt has been advised to use anti- inflammatories post injection today, ice to the injected site, call if redness, warmth, or increased pain occurs at the site of injection. Low back pain- the patient was instructed in appropriate posture, need for weight loss to alleviate abdominal obesity that is worsening the patient's back pain.. The pt is to use prn antiinflammatories to manage acute pain. The patient is to call the office if the pain is worsening or does not improve. Sacroiliitis - back exercises discussed with the patient, pt to continue with anti-inflammatories. Pt is to call if the symptoms do not improve or if they worsen. 12/16/2015 Appointment: Joy Flores WPtel: [facility] [place] (15 min) Moderate 12/16/2015 Patient Education: Patient Medication Summary Completed 12/16/2015 Patient Education: Smoking and Tobacco Addiction Completed 12/16/2015 Visit Plan: Hypertension - well controlled - continue with current medications, continue with no added salt diet. Pt has been encouraged to exercise daily. The pt has been advised to call the office if there are any acute concerns about change in blood pressure readings at home. Left lung cancer-patient to see Dr Ryan today to discuss treatment options-patient to have records sent here Low back pain- the patient was instructed in appropriate posture, need for weight loss to alleviate abdominal obesity that is worsening the patient's back pain.. The pt is to use prn antiinflammatories to manage acute pain. The patient is to call the office if the pain is worsening or does not improve. Tobacco abuse - chronic condition for this patient. Patient has been counseled about need to stop smoking due to the negative health affects. Pt has vocalized understanding and states that they will consider smoking cessation, but the pt is not yet ready to use medication to assist cessation. 12/09/2015 Visit Plan: Hypertension - well controlled - continue with current medications, continue with no added salt diet. Pt has been encouraged to exercise daily. The pt has been advised to call the office if there are any acute concerns about change in blood pressure readings at home. Left lung cancer-patient to see Dr Ryan today to discuss treatment options-patient to have records sent here Low back pain- the patient was instructed in appropriate posture, need for weight loss to alleviate abdominal obesity that is worsening the patient's back pain.. The pt is to use prn antiinflammatories to manage acute pain. The patient is to call the office if the pain is worsening or does not improve. Tobacco abuse - chronic condition for this patient. Patient has been counseled about need to stop smoking due to the negative health affects. Pt has vocalized understanding and states that they will consider smoking cessation, but the pt is not yet ready to use medication to assist cessation. Anxiety-not well controlled-increase wellbutrin 12/09/2015 Patient Education: Patient Medication Summary Completed 12/09/2015 Patient Education: Smoking and Tobacco Addiction Completed 12/09/2015 Appointment: (30 min) Complex 11/28/2015 Visit Plan: Hypertension - well controlled - continue with current medications, continue with no added salt diet. Pt has been encouraged to exercise daily. The pt has been advised to call the office if there are any acute concerns about change in blood pressure readings at home. Left lung nodule-going to have left upper lobe removed at [facility] this week to schedule Tobacco use-no cigarettes since Wednesday-start wellbutrin to aide with cessation 10/28/2015 Appointment: (15 min) Moderate 10/28/2015 Patient Education: Patient Medication Summary Completed 10/28/2015 Patient Education: Smoking and Tobacco Addiction Completed 10/28/2015 Patient Education: Hypertension Completed 10/28/2015 Visit Plan: Hypertension - slightly elevated today - continue with current medications, continue with no added salt diet. Pt has been encouraged to exercise daily. The pt has been advised to call the office if ther e are any acute concerns about change in blood pressure readings at home. Arthritis of fldd-onkh-lfyzj mobic-monitor symptoms-check labs Left lung nodule- most recent scan shows slight increase in size and needs further evaluation- managed by [facility] Core[facility] 08/26/2015 Appointment: Marily Valerio WPtel[facility] [phone] [phone] [place] (30 min) Complex 08/26/2015 Patient Education: Patient Medication Summary Completed 08/26/2015 Patient Education: Hypertension Completed 08/26/2015 Appointment: Teresa Gonzalez [facility]el[phone] [facility] [place] (15 min) Moderate 08/15/2015 Appointment: Teresa Gonzalez WPtel: [phone] [facility] [place] [place] (15 min) Moderate 08/15/2015 Visit Plan: Hypertension - well controlled - continue with current medications, continue with no added salt diet. Pt has been encouraged to exercise daily. The pt has been advised to call the office if there are any acute concerns about change in blood pressure readings at home. Pulmonary nodule - Recommended repeat CT scan. 02/12/2015 Appointment: Lisa Teresa [facility]Ptel: [phone] [facility] Follow up 02/12/2015 Patient Education: Patient Medication Summary Completed 02/12/2015 Patient Education: Hypertension Completed 02/12/2015 Patient Education: Patient Medication Summary Completed 01/07/2015 Visit Plan: Bronchitis - acute case of bronchitis identified. Pt has been given antibiotics, breathing treatments as appropriate, and pt has been instructed to call if symptoms are not improved, or if symptoms acutely worsen. 11/12/2014 Patient Education: Patient Medication Summary Completed 11/12/2014 Patient Education: Smoking and Tobacco Addiction Completed 11/12/2014 Visit Plan: Hypertension - well controlled - continue with current medications, continue with no added salt diet. Pt has been encouraged to exercise daily. The pt has been advised to call the office if there are any acute concerns about change in blood pressure readings at home. Esophageal Reflux - the patient has been counseled against excessive intake of caffeine, spicy foods, peppermint, and cinnamon - all of which can exacerbate esophageal reflux. The patient is to take medications as prescribed and call the office if the symptoms are not improving. Gas and bloating-use dicyclomine prn Elevated blood sugar-check Hgb [id number] back on sweets/carbs 07/23/2014 Appointment: Follow up 07/23/2014 Patient Education: Patient Medication Summary Completed 07/23/2014 Patient Education: Hypertension Completed 07/23/2014 Visit Plan: Dysuria-vaginal burning-UA positive for blood and leukocystes today in the office-will send for culture and proceed as indicated. Diflucan sent to patient's pharmacy and instructed on use. Patient verbalized understanding of plan. 03/21/2014 Appointment: Sick 03/21/2014 Patient Education: Patient Medication Summary Completed 03/21/2014 Visit Plan: Hypertension - well controlled - continue with current medications, continue with no added salt diet. Pt has been encouraged to exercise daily. The pt has been advised to call the office if there are any acute concerns about change in blood pressure readings at home. 01/25/2014 Appointment: Marily Valerio WPtel: [phone] [phone] Follow up 01/25/2014 Patient Education: Patient Medication Summary Completed 01/25/2014 Patient Education: Hypertension Completed 01/25/2014 Visit Plan: Hypertension - well controlled at home per patient report- continue with current medications, continue with no added salt diet. Pt has been encouraged to exercise daily. The pt has been advised to call the office if there are any acute concerns about change in blood pressure readings at home. Reflux - improved - however, with her history of tobacco abuse - will refer her for an EGD by Dr. Mckeon. 10/23/2013 Appointment: Teresa Gonzalez WPtel: [phone] [facility] Follow up 10/23/2013 Patient Education: Patient Medication Summary Completed 10/23/2013 Patient Education: Hypertension Completed 10/23/2013 Visit Plan: Esophageal Reflux - the patient has been counseled against excessive intake of caffiene, spicy foods, peppermint, and cinnamon - all of which can exacerbate esophageal reflux. The patient is to take med ications as prescribed and call the office if the symptoms are not improving. Hypertension - well controlled at home - continue with current medications, continue with no added salt diet. Pt has been encouraged to exercise daily. The pt has been advised to call the office if there are any acute concerns about change in blood pressure readings at home. Rash-recommend emollient such as eucerin cream twice daily. Ok to use hydrocortisone cream very sparingly-call if rash do not resolve or if any worse. 08/21/2013 Appointment: Marily Valerio WPtel: [phone] [phone] Follow up 08/21/2013 Patient Education: Patient Medication Summary Completed 08/21/2013 Patient Education: Hypertension Completed 08/21/2013 Visit Plan: Esophageal Reflux - the patient has been counseled against excessive intake of caffiene, spicy foods, peppermint, and cinnamon - all of which can exacerbate esophageal reflux. The patient is to take med ications as prescribed and call the office if the symptoms are not improving. HTN-elevated today-follow up with Dr Combs as scheduled Tingling of qqymjvfojoc-bhhhbagd-gcrld labs including vitamin b12 and vitamin d Elevated blood sugar-check hgb a1c 07/20/2013 Appointment: Marily Valerio WPtel: [phone] [place] [address] Follow up 07/20/2013 Patient Education: Patient Medication Summary Completed 07/20/2013 Patient Education: Hypertension Completed 07/20/2013 Visit Plan: Hypertension - The patient has been counseled to cut back on salt in diet for a no added salt diet, low fat diet, start an exercise program with low weight bearing exercises and higher aerobic activity for heart health. The patient is to check blood pressure readings as an outpatient and either fax, call, or email the readings to the office next week for practicioner to review. The pt is to call for acute concerns. Depression - uncontrolled - Pt has been counseled about the diagnosis of depression, the potential causes, and risks associated with the diagnosis. The pt denies suicidal ideation, or plans. The patient has been counseled about treatment options, and understands the risks associated with treatment of depression, as well as the risks associated with NOT treating the depression. I believe the pt will benefit from medical intervention and an antidepressant has been appropriately prescribed for this patient. Tobacco use-patient wishes to quit-RX for wellbutrin-set a quit date and start wellbutrin 1 week before quit date. 06/22/2013 Appointment: Marily Valerio WPtel: [phone] New Patient 06/22/2013 Patient Education: Patient Medication Summary Completed 06/22/2013 Patient Education: Hypertension Completed 06/22/2013 Patient Education: Smoking and Tobacco Addiction Completed 06/22/2013 Instructions Comment PATIENT IS TO CHECK BLOOD PRESSURE AND HEART RATE TWO TIMES DAILY AND BRING IN A RECORD OF THE READINGS INTO THE OFFICE IN TWO WEEKS. CALL AND LET US KNOW WHAT DR COREA'S PLAN IS START MELOXICAM 7.5MG DAILY-OK TO INCREAS TO 2 TABS DAILY-CALL IF ARTHRITIS PAIN DOES NOT IMPROVE . Hypertension - slightly elevated today - continue with current medications, continue with no added salt diet. Pt has been encouraged to exercise daily. The pt has been advised to call the office if there are any acute concerns about change in blood pressure readings at home. Arthritis of eqpe-einm-tactp mobic-monitor symptoms-check labs Left lung nodule-most recent scan shows slight increase in size and needs further evaluation-managed by Dr Corea-appt is this week START WELLBUTRIN 75MG TWICE DAILY TO HELP WITH SMOKING CESSATION PATIENT IS TO CHECK BLOOD PRESSURE AND HEART RATE TWO TIMES DAILY AND BRING IN A RECORD OF THE READINGS INTO THE OFFICE IN TWO WEEKS. . Hypertension - well controlled - continue with current medications, continue with no added salt diet. Pt has been encouraged to exercise daily. The pt has been advised to call the office if there are any acute concerns about change in blood pressure readings at home. Left lung nodule-going to have left upper lobe removed at -[facility] this week to schedule Tobacco use-no cigarettes since Wednesday-start wellbutrin to aide with cessation . Dysuria-vaginal burning-UA positive for blood and leukocystes today in the office-will send for culture and proceed as indicated. Diflucan sent to patient's pharmacy and instructed on use. Patient verbalized understanding of plan. . Gas and bloating-cut out dairy x 2 weeks-increase gas x to TID-call if symptoms uncontrolled Rash-rx for nystatin powder provided-keep clean/dry-call if does not resolve or if any worse . Hypertension - well controlled at home per patient report- continue with current medications, continue with no added salt diet. Pt has been encouraged to exercise daily. The pt has been advised to call the office if there are any acute concerns about change in blood pressure readings at home. Reflux - improved - however, with her history of tobacco abuse - will refer her for an EGD by Dr. Mckeon. Dr Mata at [facility] ( or wednesday) gabapentin 100mg at bedtime screening mammogram make an appt with Dr Herrera to discuss epidural injections . Lung nodule -right lung -on surveillance -patient also has history of left lung cancer with lobectomy -does not want to go to for oncology -wants to see Dr Mata at [facility] in [place] -will send referral Lumbar radiculopathy -rx for gabapentin provided and instructed on use - recommend patient return to Dr Herrera to discussed epidural injections HTN-controlled- no changes Tobacco use-patient continues to smoke and is not interested in quitting - smoking cessation encouraged fasting labs at next appt schedule TA . Hypertension - well controlled -will switch back to diovan due to availability of benicar, continue with no added salt diet. Pt has been encouraged to exercise daily. The pt has been advised to call the office if there are any acute concerns about change in blood pressure readings at home. Rash -under arms-stop new deodorant -rx for nystatin/bethamethasone creams provided and instructed on use-call if rash does not resolve Elevated blood sugars-check fasting labs Intermittent claudication -check TA . Joint Injection - Right SI joint - Pt was given post - injection instructions. The pt has been advised to use anti-inflammatories post injection today, ice to the injected site, call if redness, warmth, or increased pain occurs at the site of injection. Low back pain- the patient was instructed in appropriate posture, need for weight loss to alleviate abdominal obesity that is worsening the patient's back pain.. The pt is to use prn antiinflammatories to manage acute pain. The patient is to call the office if the pain is worsening or does not improve. Sacroiliitis - back exercises discussed with the patient, pt to continue with anti-inflammatories. Pt is to call if the symptoms do not improve or if they worsen. Stop the Statin today, start Co Q 10 . Continued Low back pain - will order MRI - the patient was instructed in appropriate posture, need for weight loss to alleviate abdominal obesity that is worsening the patient's back pain.. The pt is to use prn antiinflammatories to manage acute pain. The patient is to call the office if the pain is worsening or does not improve. Myalgias - Will stop statin, will order labs. Sacroiliitis - back exercises discussed with the patient, pt to continue with anti-inflammatories. Pt is to call if the symptoms do not improve or if they worsen. . Hypertension - well controlled - continue with current medications, continue with no added salt diet. Pt has been encouraged to exercise daily. The pt has been advised to call the office if there are any acute concerns about change in blood pressure readings at home. PREM lung cancer-not a surgical candidate-post radiation-seeing Dr Ryan at the cancer center COPD-tobacco use-patient trying to quit smoking-going to start nicotine patches xray neck and low back then MRI ( and fridays are best) labs today schedule medicare exam lexapro 10mg daily- start with 1/2 tab x 1 week gas x or beano . Hypertension - well controlled - continue with current medications, continue with no added salt diet. Pt has been encouraged to exercise daily. The pt has been advised to call the office if there are any acute concerns about change in blood pressure readings at home. Hyperlipidemia - pt has been counseled about appropriate diet, exercise, and need for low fat food choices. I have discussed the need for the patient to take medications as prescribed. If the patient has negative side effects from the medication, they are to CALL the office and not abruptly discontinue the medication without discussion with a practitioner in the office. We will check labs in 3-6 months for follow up on the patient's chronic medical problem and to assure normal liver response to medications. Depression - uncontrolled - Pt has been counseled about the diagnosis of depression, the potential causes, and risks associated with the diagnosis. The pt denies suicidal ideation, or plans. The patient has been counseled about treatment options, and understands the risks associated with treatment of depression, as well as the risks associated with NOT treating the depression. I believe the pt will benefit from medical intervention and an antidepressant has been appropriately prescribed for this patient. Neck and low back pain-xrays today-MRI as indicated-discussed referral to pain management for injections vs PT I GAVE YOU SAMPLES OF DEXILANT 60MG-START ONCE DAILY HOLD OMEPRAZOLE WHILE TAKING THE DEXILANT. . Esophageal Reflux - the patient has been counseled against excessive intake of caffiene, spicy foods, peppermint, and cinnamon - all of which can exacerbate esophageal reflux. The patient is to take medications as prescribed and call the office if the symptoms are not improving. HTN-elevated today-follow up with Dr Combs as scheduled Tingling of xvptdodkfin-mcvrzqwa-knwnd labs including vitamin b12 and vitamin d Elevated blood sugar-check hgb a1c . Bronchitis - acute case of bronchitis identified. Pt has been given antibiotics, breathing treatments as appropriate, and pt has been instructed to call if symptoms are not improved, or if symptoms acutely worsen. . Hypertension - well controlled - continue with current medications, continue with no added salt diet. Pt has been encouraged to exercise daily. The pt has been advised to call the office if there are any acute concerns about change in blood pressure readings at home. Depression - uncontrolled - Pt has been counseled about the diagnosis of depression, the potential causes, and risks associated with the diagnosis. The pt denies suicidal ideation, or plans. The patient has been counseled about treatment options, and understands the risks associated with treatment of depression, as well as the risks associated with NOT treating the depression. I believe the pt will benefit from medical intervention and an increase in antidepressant has been appropriately prescribed for this patient. 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 Hypertension - well controlled - continue with current medications, continue with no added salt diet. Pt has been encouraged to exercise daily. The pt has been advised to call the office if there are any acute concerns about change in blood pressure readings at home. Hyperlipidemia - pt has been counseled about appropriate diet, exercise, and need for low fat food choices. I have discussed the need for the patient to take medications as prescribed. If the patient has negative side effects from the medication, they are to CALL the office and not abruptly discontinue the medication without discussion with a practitioner in the office. We will check labs in 3-6 months for follow up on the patient's chronic medical problem and to assure normal liver response to medications. Anxiety-fairly well controlled-no change in treatment at this time Osteopenia-check bone density Nexium SAMPLES-start when diexilant is gone. After all samples gone, restart omeprazole START CARAFATE 1 TAB DISSOLVED IN WATER THREE TIMES DAILY CALL IF THE PAIN DOES NOT GO AWAY . Esophageal Reflux - the patient has been counseled against excessive intake of caffiene, spicy foods, peppermint, and cinnamon - all of which can exacerbate esophageal reflux. The patient is to take medications as prescribed and call the office if the symptoms are not improving. Hypertension - well controlled at home - continue with current medications, continue with no added salt diet. Pt has been encouraged to exercise daily. The pt has been advised to call the office if there are any acute concerns about change in blood pressure readings at home. Rash-recommend emollient such as eucerin cream twice daily. Ok to use hydrocortisone cream very sparingly-call if rash do not resolve or if any worse. . Hypertension - well controlled - continue with current medications, continue with no added salt diet. Pt has been encouraged to exercise daily. The pt has been advised to call the office if there are any acute concerns about change in blood pressure readings at home. Hyperlipidemia - pt has been counseled about appropriate diet, exercise, and need for low fat food choices. I have discussed the need for the patient to take medications as prescribed. If the patient has negative side effects from the medication, they are to CALL the office and not abruptly discontinue the medication without discussion with a practitioner in the office. We will check labs in 3-6 months for follow up on the patient's chronic medical problem and to assure normal liver response to medications. Tobacco abuse - chronic condition for this patient. Patient has been counseled about need to stop smoking due to the negative health affects. Pt has vocalized understanding and states that they will consider smoking cessation, but the pt is not yet ready to use medication to assist cessation. Lung cancer-post radiation-will see Dr Ryan in October CHECK LABS TODAY . Hypertension - well controlled - continue with current medications, continue with no added salt diet. Pt has been encouraged to exercise daily. The pt has been advised to call the office if there are any acute concerns about change in blood pressure readings at home. Hyperlipidemia-check labs Elevated blood sugars-check Hgb A1C . Hypertension - well controlled - continue with current medications, continue with no added salt diet. Pt has been encouraged to exercise daily. The pt has been advised to call the office if there are any acute concerns about change in blood pressure readings at home. Left lung cancer-patient to see Dr Ryan today to discuss treatment options- patient to have records sent here Low back pain- the patient was instructed in appropriate posture, need for weight loss to alleviate abdominal obesity that is worsening the patient's back pain.. The pt is to use prn antiinflammatories to manage acute pain. The patient is to call the office if the pain is worsening or does not improve. Tobacco abuse - chronic condition for this patient. Patient has been counseled about need to stop smoking due to the negative health affects. Pt has vocalized understanding and states that they will consider smoking cessation, but the pt is not yet ready to use medication to assist cessation. . Hypertension - well controlled - continue with current medications, continue with no added salt diet. Pt has been encouraged to exercise daily. The pt has been advised to call the office if there are any acute concerns about change in blood pressure readings at home. Left lung cancer-patient to see Dr Ryan today to discuss treatment options- patient to have records sent here Low back pain- the patient was instructed in appropriate posture, need for weight loss to alleviate abdominal obesity that is worsening the patient's back pain.. The pt is to use prn antiinflammatories to manage acute pain. The patient is to call the office if the pain is worsening or does not improve. Tobacco abuse - chronic condition for this patient. Patient has been counseled about need to stop smoking due to the negative health affects. Pt has vocalized understanding and states that they will consider smoking cessation, but the pt is not yet ready to use medication to assist cessation. Anxiety-not well controlled-increase wellbutrin . Hypertension - well controlled - continue with current medications, continue with no added salt diet. Pt has been encouraged to exercise daily. The pt has been advised to call the office if there are any acute concerns about change in blood pressure readings at home. Anxiety - the patient has uncontrolled anxiety and will benefit from an SSRI on a daily basis to attempt control of the symptoms of anxiety (tachycardia, overwhelming sensations, stress, insomnia, etc). Pt is aware of the risks and benefits of treatment with the above medications. Tobacco abuse - chronic condition for this patient. Patient has been counseled about need to stop smoking due to the negative health affects. Pt has vocalized understanding and states that they will consider smoking cessation, but the pt is not yet ready to use medication to assist cessation. . Hypertension - well controlled - continue with current medications, continue with no added salt diet. Pt has been encouraged to exercise daily. The pt has been advised to call the office if there are any acute concerns about change in blood pressure readings at home. Pulmonary nodule - Recommended repeat CT scan. . Hypertension - well controlled - continue with current medications, continue with no added salt diet. Pt has been encouraged to exercise daily. The pt has been advised to call the office if there are any acute concerns about change in blood pressure readings at home. Monitor your blood pressure at home and record. Bring in your readings to your next appointment, or as directed. Call for chest pain, shortness of breath, headaches, or other concerns.. Hypertension - The patient has been counseled to cut back on salt in diet for a no added salt diet, low fat diet, start an exercise program with low weight bearing exercises and higher aerobic activity for heart health. The patient is to check blood pressure readings as an outpatient and either fax, call, or email the readings to the office next week for practicioner to review. The pt is to call for acute concerns. Depression - uncontrolled - Pt has been counseled about the diagnosis of depression, the potential causes, and risks associated with the diagnosis. The pt denies suicidal ideation, or plans. The patient has been counseled about treatment options, and understands the risks associated with treatment of depression, as well as the risks associated with NOT treating the depression. I believe the pt will benefit from medical intervention and an antidepressant has been appropriately prescribed for this patient. Tobacco use-patient wishes to quit-RX for wellbutrin-set a quit date and start wellbutrin 1 week before quit date. check Hbg A1C . Hypertension - well controlled - continue with current medications, continue with no added salt diet. Pt has been encouraged to exercise daily. The pt has been advised to call the office if there are any acute concerns about change in blood pressure readings at home. Esophageal Reflux - the patient has been counseled against excessive intake of caffeine, spicy foods, peppermint, and cinnamon - all of which can exacerbate esophageal reflux. The patient is to take medications as prescribed and call the office if the symptoms are not improving. Gas and bloating-use dicyclomine prn Elevated blood sugar-check Hgb [id number] back on sweets/carbs . Hypertension - well controlled - continue with current medications, continue with no added salt diet. Pt has been encouraged to exercise daily. The pt has been advised to call the office if there are any acute concerns about change in blood pressure readings at home. Lung cancer-PREM lobectomy 06/2017-followed by [facility] and Dr Ryan . Medicare Exam - today we discussed the patients past history, immunizations, preventative exams/evaluations - colonoscopy, fecal occult blood testing, routine labs for renal function, glucose, cholesterol, osteoporosis evaluations, cardiovascular testing and cancer screenings. We have also discussed mental health and the signs/symptoms of depression. The patient was advised of home safety evaluations and the need to make sure that as the aging process continues, we need to be aware of different ways to make the home a safer place to reside. The patient has also been counseled that exercise is necessary - and of utmost importance as we age to help decrease fall risk and to maintain independence in the home. Today we discussed the need for the patient to create paperwork for Advanced directives as well as for the patient to provide this office with a copy of her [employer] paperwork for health care surrogate. Bilateral leg pain-suspect intermittent claudication-will schedule MRI lumbar spine first and then consider vascular studies
--- OUTSIDE RECORDS SUMMARY | 2019-03-31 08:23 | XMS REPORT | CCD ---
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 Unknown Has never used illegal drugs 06/22/2013 Allergies, Adverse Reactions, Alerts Substance Reaction Codes Entered Date Inactivated Date Status lisinopril cough, RxNorm: 11145 06/22/2013 No Inactive Date Active SULFA (SULFONAMIDE [...] Start Date Stop Date Status Fill Instructions dicyclomine 10 mg capsule RxNorm: 729088 1 Capsule(s) PO TID PRN TAKE ONE CAPSULE BY MOUTH THREE TIMES A DAY NEEDED 12/19/2018 12/02/2021 Active DISREGARD ORDER FOR 20MG PILLS olmesartan 40 mg tablet RxNorm: 127191 1 Tablet(s) PO daily 12/19/2018 01/17/2019 Active dicyclomine 20 mg tablet RxNorm: 496425 1 Tablet(s) PO TID PRN TAKE ONE CAPSULE BY MOUTH THREE TIMES A DAY NEEDED 12/19/2018 12/19/2018 Inactive PA approved amlodipine 10 mg tablet RxNorm: 697851 TAKE ONE TABLET BY MOUTH EVERY DAY 12/15/2018 06/12/2019 Active dicyclomine 20 mg tablet RxNorm: 114297 1 Tablet(s) PO TID PRN TAKE ONE CAPSULE BY MOUTH THREE TIMES A DAY NEEDED 10/28/2018 12/18/2018 Inactive PA approved gabapentin 300 mg capsule RxNorm: 624969 1 Capsule(s) PO BID 09/30/2018 01/27/2019 Active after 14 days of HS increase to BID gabapentin 300 mg capsule RxNorm: 580789 1 Capsule(s) PO QHS 09/30/2018 09/29/2018 Inactive then increase to BID Lyrica 50 mg capsule RxNorm: 043518 1 Capsule(s) PO BID 09/27/2018 12/25/2018 Inactive Lyrica 50 mg capsule RxNorm: 575841 1 Capsule(s) PO BID 09/27/2018 09/26/2018 Inactive nystatin 100,000 unit/gram topical cream RxNorm: 137660 1 Application TOP BID 09/19/2018 10/02/2018 Inactive mix with betamethasone Diovan 320 mg tablet RxNorm: 175838 1 Tablet(s) PO daily 09/19/2018 03/17/2019 Active metoprolol tartrate 100 mg tablet RxNorm: 697812 1 Tablet(s) PO BID TAKE ONE TABLET BY MOUTH TWICE A DAY 09/19/2018 06/15/2019 Active dicyclomine 20 mg tablet RxNorm: 903971 1 Tablet(s) PO TID PRN TAKE ONE CAPSULE BY MOUTH THREE TIMES A DAY NEEDED 09/19/2018 10/27/2018 Inactive betamethasone dipropionate 0.05 % topical cream RxNorm: 172237 1 Application TOP BID 09/19/2018 10/02/2018 Inactive dicyclomine 10 mg capsule RxNorm: 620732 1 Capsule(s) PO TID PRN TAKE ONE CAPSULE BY MOUTH THREE TIMES A DAY NEEDED 09/19/2018 09/18/2018 Inactive nystatin 100,000 unit/gram topical cream RxNorm: 868497 1 Application TOP BID 06/16/2018 06/29/2018 Inactive gabapentin 100 mg capsule RxNorm: 882106 1 Capsule(s) PO UD 06/16/2018 07/15/2018 Inactive 1 po q HS x 1 week then 2 po q HS x 1 week then increase to 3 q HS amlodipine 10 mg tablet RxNorm: 795148 TAKE ONE TABLET BY MOUTH EVERY DAY 05/26/2018 11/21/2018 Inactive Lipitor 10 mg tablet RxNorm: 592298 Tablet(s) TAKE ONE TABLET BY MOUTH EVERY OTHER DAY 05/25/2018 02/18/2019 Active Lexapro 20 mg tablet RxNorm: 142793 1 Tablet(s) PO QPM 03/25/2018 09/20/2018 Inactive nystatin 100,000 unit/gram topical cream RxNorm: 581816 1 Application TOP BID 03/25/2018 04/07/2018 Inactive olmesartan 40 mg tablet RxNorm: 935472 1 Tablet(s) PO daily 03/25/2018 09/18/2018 Inactive Diovan 320 mg tablet RxNorm: 497811 TAKE ONE TABLET BY MOUTH DAILY 03/18/2018 03/24/2018 Inactive Lipitor 10 mg tablet RxNorm: 953657 TAKE ONE TABLET BY MOUTH EVERY OTHER DAY 03/18/2018 12/11/2018 Inactive metoprolol tartrate 100 mg tablet RxNorm: 694968 TAKE ONE TABLET BY MOUTH TWICE A DAY 01/05/2018 09/18/2018 Inactive Diovan 320 mg tablet RxNorm: 583507 TAKE ONE TABLET BY MOUTH EVERY DAY 12/16/2017 03/17/2018 Inactive Lexapro 10 mg tablet RxNorm: 356178 1 Tablet(s) PO QPM 11/25/2017 03/24/2018 Inactive amlodipine 10 mg tablet RxNorm: 761724 TAKE ONE TABLET BY MOUTH EVERY DAY 11/15/2017 05/13/2018 Inactive Lipitor 10 mg tablet RxNorm: 162198 TAKE ONE TABLET BY MOUTH EVERY OTHER DAY 10/18/2017 03/17/2018 Inactive dicyclomine 10 mg capsule RxNorm: 290088 TAKE ONE CAPSULE BY MOUTH THREE TIMES A DAY NEEDED 08/12/2017 09/18/2018 Inactive Lipitor 10 mg tablet RxNorm: 624379 TAKE ONE TABLET BY MOUTH EVERY OTHER DAY 07/12/2017 10/17/2017 Inactive Diovan 320 mg tablet RxNorm: 534134 TAKE ONE TABLET BY MOUTH EVERY DAY 06/09/2017 12/05/2017 Inactive dicyclomine 10 mg capsule RxNorm: 521767 TAKE ONE CAPSULE BY MOUTH THREE TIMES A DAY NEEDED 05/05/2017 08/02/2017 Inactive nystatin 100,000 unit/gram topical powder RxNorm: 514593 1 Application TOP BID 04/29/2017 05/08/2017 Inactive Diovan 320 mg tablet RxNorm: 182372 TAKE ONE TABLET BY MOUTH EVERY DAY 03/10/2017 06/07/2017 Inactive dicyclomine 10 mg capsule RxNorm: 046580 TAKE ONE CAPSULE BY MOUTH THREE TIMES A DAY NEEDED 02/04/2017 05/04/2017 Inactive amlodipine 10 mg tablet RxNorm: 058749 TAKE ONE TABLET BY MOUTH EVERY DAY 02/04/2017 10/31/2017 Inactive Lipitor 10 mg tablet RxNorm: 209452 TAKE ONE TABLET BY MOUTH EVERY OTHER DAY 02/04/2017 07/11/2017 Inactive Fish Oil 1,000 mg capsule RxNorm: 1 Capsule(s) PO TID 01/07/2017 No Stop Date Active metoprolol tartrate 100 mg tablet RxNorm: 433892 1 Tablet(s) PO BID TAKE ONE TABLET BY MOUTH TWICE A DAY 01/07/2017 01/01/2018 Inactive Diovan 320 mg tablet RxNorm: 494466 TAKE ONE TABLET BY MOUTH EVERY DAY 11/05/2016 03/04/2017 Inactive Lipitor 10 mg tablet RxNorm: 053944 1 Tablet(s) PO every other day 09/08/2016 01/05/2017 Inactive dc livalo dicyclomine 10 mg capsule RxNorm: 383255 TAKE ONE CAPSULE BY MOUTH THREE TIMES A DAY NEEDED 07/30/2016 01/25/2017 Inactive Diovan 320 mg tablet RxNorm: 341365 TAKE ONE TABLET BY MOUTH EVERY DAY 06/15/2016 11/04/2016 Inactive Lipitor 10 mg tablet RxNorm: 237237 1 Tablet(s) PO every other day 05/25/2016 05/24/2016 Inactive dc livalo Lipitor 10 mg tablet RxNorm: 805352 1 Tablet(s) PO every other day 05/25/2016 09/07/2016 Inactive dc livalo Livalo 2 mg tablet RxNorm: 184066 1 Tablet(s) PO daily 05/20/2016 05/19/2016 Inactive Livalo 2 mg tablet RxNorm: 382643 1 Tablet(s) PO daily 05/20/2016 05/24/2016 Inactive Celexa 10 mg tablet RxNorm: 571810 1 Tablet(s) PO daily 02/10/2016 11/24/2017 Inactive amlodipine 10 mg tablet RxNorm: 610492 TAKE ONE TABLET BY MOUTH EVERY DAY 02/03/2016 02/02/2016 Inactive amlodipine 10 mg tablet RxNorm: 759616 TAKE ONE TABLET BY MOUTH EVERY DAY 02/03/2016 01/27/2017 Inactive amlodipine 10 mg tablet RxNorm: 327247 TAKE ONE TABLET BY MOUTH EVERY DAY 02/03/2016 04/27/2017 Inactive metoprolol tartrate 100 mg tablet RxNorm: 061016 TAKE ONE TABLET BY MOUTH TWICE A DAY 2016 01/06/2017 Inactive Diovan 320 mg tablet RxNorm: 660706 TAKE ONE TABLET BY MOUTH EVERY DAY 12/19/2015 06/14/2016 Inactive Wellbutrin XL 150 mg 24 hr tablet, extended release RxNorm: 261113 1 Tablet(s) PO daily 12/09/2015 02/09/2016 Inactive tramadol 50 mg tablet RxNorm: 211314 1-2 Tablet(s) PO Q6 PRN 12/09/2015 11/24/2017 Inactive Mobic 7.5 mg tablet RxNorm: 643096 TAKE ONE TABLET BY MOUTH DAILY 11/11/2015 11/24/2017 Inactive dicyclomine 10 mg capsule RxNorm: 784311 TAKE ONE CAPSULE BY MOUTH THREE TIMES A DAY NEEDED 11/11/2015 07/29/2016 Inactive Wellbutrin 75 mg tablet RxNorm: 057936 1 Tablet(s) PO BID 10/28/2015 12/08/2015 Inactive simvastatin 20 mg tablet RxNorm: 311171 TAKE ONE TABLET BY MOUTH EVERY DAY 09/05/2015 2016 Inactive Mobic 7.5 mg tablet RxNorm: 196947 1 Tablet(s) PO daily 08/26/2015 11/10/2015 Inactive estradiol 0.5 mg tablet RxNorm: 549613 TAKE ONE TABLET BY MOUTH EVERY DAY 06/11/2015 03/06/2016 Inactive amlodipine 10 mg tablet RxNorm: 384255 TAKE ONE TABLET BY MOUTH EVERY DAY 04/19/2015 01/13/2016 Inactive dicyclomine 10 mg capsule RxNorm: 496044 TAKE ONE CAPSULE BY MOUTH THREE TIMES A DAY NEEDED 04/19/2015 10/15/2015 Inactive simvastatin 20 mg tablet RxNorm: 379701 TAKE ONE TABLET BY MOUTH EVERY DAY 02/21/2015 08/19/2015 Inactive Diovan 320 mg tablet RxNorm: 941338 TAKE ONE TABLET BY MOUTH EVERY DAY 12/19/2014 12/18/2015 Inactive cephalexin 500 mg capsule RxNorm: 358403 1 Capsule(s) PO TID 11/13/2014 11/19/2014 Inactive prednisone 10 mg tablet RxNorm: 294964 3 Tablet(s) PO daily 11/13/2014 11/17/2014 Inactive prednisone 10 mg tablet RxNorm: 168647 3 Tablet(s) PO daily 11/12/2014 11/12/2014 Inactive Kenalog 40 mg/mL suspension for injection RxNorm: 1008939 Milliliter(s) Inj 11/12/2014 11/12/2014 Inactive cephalexin 500 mg capsule RxNorm: 612610 1 Capsule(s) PO TID 11/12/2014 11/12/2014 Inactive ceftriaxone 500 mg solution for injection RxNorm: 0487592 Inj 11/12/2014 11/12/2014 Inactive dicyclomine 10 mg capsule RxNorm: 486768 TAKE ONE CAPSULE BY MOUTH THREE TIMES A DAY NEEDED 11/08/2014 04/18/2015 Inactive metoprolol tartrate 100 mg tablet RxNorm: 340642 TAKE ONE TABLET BY MOUTH TWICE A DAY 10/18/2014 2015 Inactive metoprolol tartrate 100 mg tablet RxNorm: 501172 1 Tablet(s) PO BID 10/18/2014 10/12/2015 Inactive simvastatin 20 mg tablet RxNorm: 374632 TAKE ONE TABLET BY MOUTH EVERY DAY 08/21/2014 02/16/2015 Inactive Diovan 320 mg tablet RxNorm: 103979 TAKE ONE TABLET BY MOUTH EVERY DAY 08/21/2014 12/18/2014 Inactive Carafate 1 gram tablet RxNorm: 545124 1 Tablet(s) PO AC & HS MIX WITH 30ML WATER 07/23/2014 11/24/2017 Inactive dissolve in water and drink as slurry dicyclomine 10 mg capsule RxNorm: 016630 1 Capsule(s) PO TID PRN 07/23/2014 10/20/2014 Inactive simvastatin 20 mg tablet RxNorm: 142109 TAKE ONE TABLET BY MOUTH EVERY DAY 06/07/2014 08/20/2014 Inactive estradiol 0.5 mg tablet RxNorm: 379775 TAKE ONE TABLET BY MOUTH EVERY DAY 05/16/2014 05/10/2015 Inactive amlodipine 10 mg tablet RxNorm: 193635 TAKE ONE TABLET BY MOUTH EVERY DAY 05/16/2014 04/18/2015 Inactive Diovan 320 mg tablet RxNorm: 142397 TAKE ONE TABLET BY MOUTH EVERY DAY 03/26/2014 08/20/2014 Inactive Diflucan 150 mg tablet RxNorm: 565813 1 Tablet(s) PO daily 03/21/2014 03/27/2014 Inactive simvastatin 20 mg tablet RxNorm: 299908 TAKE ONE TABLET BY MOUTH EVERY DAY 03/02/2014 05/30/2014 Inactive estradiol 0.5 mg tablet RxNorm: 326268 TAKE ONE TABLET BY MOUTH EVERY DAY 02/16/2014 05/15/2014 Inactive amlodipine 10 mg tablet RxNorm: 263413 TAKE ONE TABLET BY MOUTH EVERY DAY 02/16/2014 05/15/2014 Inactive pantoprazole 40 mg tablet,delayed release RxNorm: 977575 2 Tablet(s) PO daily 01/25/2014 02/23/2014 Inactive simvastatin 20 mg tablet RxNorm: 137431 Tablet(s) PO TAKE ONE TABLET BY MOUTH EVERY DAY 11/30/2013 03/01/2014 Inactive amlodipine 10 mg tablet RxNorm: 441794 Tablet(s) PO TAKE ONE TABLET BY MOUTH EVERY DAY 11/16/2013 02/15/2014 Inactive metoprolol tartrate 100 mg tablet RxNorm: 453809 1 Tablet(s) PO BID 10/23/2013 10/17/2014 Inactive Diovan 320 mg tablet RxNorm: 725170 Tablet(s) PO TAKE ONE TABLET BY MOUTH EVERY DAY 09/28/2013 03/25/2014 Inactive Carafate 1 gram tablet RxNorm: 490768 1 Tablet(s) PO TID MIX WITH 30ML WATER 09/20/2013 12/18/2013 Inactive estradiol 0.5 mg tablet RxNorm: 871259 1 Tablet(s) PO daily 08/21/2013 02/15/2014 Inactive amlodipine 10 mg tablet RxNorm: 609229 1 Tablet(s) PO daily 08/21/2013 11/15/2013 Inactive simvastatin 20 mg tablet RxNorm: 558126 1 Tablet(s) PO daily 08/21/2013 11/18/2013 Inactive Diovan 320 mg tablet RxNorm: 492613 1 Tablet(s) PO daily 08/21/2013 09/19/2013 Inactive Carafate 1 gram tablet RxNorm: 906197 1 Tablet(s) PO TID MIX WITH 30ML WATER 08/21/2013 09/19/2013 Inactive Diovan 320 mg tablet RxNorm: 579646 1 Tablet(s) PO daily 07/20/2013 08/18/2013 Inactive amlodipine 10 mg tablet RxNorm: 917698 1 Tablet(s) PO daily 07/20/2013 08/18/2013 Inactive estradiol 0.5 mg tablet RxNorm: 167752 1 Tablet(s) PO daily 07/20/2013 08/18/2013 Inactive metoprolol tartrate 100 mg tablet RxNorm: 371930 1 Tablet(s) PO BID 06/22/2013 10/22/2013 Inactive Wellbutrin XL 150 mg 24 hr tablet, extended release RxNorm: 045636 1 Tablet(s) PO daily 06/22/2013 07/19/2013 Inactive pantoprazole 40 mg tablet,delayed release RxNorm: 377594 1 Tablet(s) PO daily No Start Date Active calcium 500 mg tablet RxNorm: 2 Tablet(s) PO BID No Start Date Active glucosamine and kbavftcahpf-qhiehprr-agcm#3 oral RxNorm: 2837 oral No Start Date Active multivitamin tablet RxNorm: 1 Tablet(s) PO daily No Start Date Active aspirin 81 mg tablet RxNorm: 622757 1 Tablet(s) PO daily No Start Date Active Probiotic oral RxNorm: oral No Start Date Active Vitamin D3 1,000 unit capsule RxNorm: 528502 1 Capsule(s) PO daily No Start Date Active Eliquis 5 mg tablet RxNorm: 5104787 1 Tablet(s) PO BID No Start Date Active simvastatin 20 mg tablet RxNorm: 417298 1 Tablet(s) PO daily No Start Date 08/20/2013 Inactive hyoscyamine 0.125 mg sublingual tablet RxNorm: 6080694 1 Tablet(s) SL TID No Start Date 07/22/2014 Inactive metoprolol tartrate 100 mg tablet RxNorm: 717437 1 Tablet(s) PO daily No Start Date 06/21/2013 Inactive amlodipine 10 mg tablet RxNorm: 430681 1 Tablet(s) PO daily No Start Date 07/19/2013 Inactive Diovan 320 mg tablet RxNorm: 721584 1 Tablet(s) PO daily No Start Date 07/19/2013 Inactive Fish Oil 1,000 mg capsule RxNorm: 1 Capsule(s) PO BID No Start Date 01/06/2017 Inactive omeprazole 20 mg tablet,delayed release RxNorm: 534247 1 Tablet(s) PO daily No Start Date 01/25/2014 Inactive estradiol 0.5 mg tablet RxNorm: 574757 1 Tablet(s) PO daily No Start Date 07/19/2013 Inactive Medication Administered Medication Codes Instructions Start Date Status Kenalog 40 mg/mL suspension for injection RxNorm: 6046044 Milliliter 11/12/2014 No longer Active ceftriaxone 500 mg solution for injection RxNorm: 6498354 11/12/2014 No longer Active Immunizations Vaccine Codes Date Status Influenza CVX: 141 05/11/2016 completed Pneumococcal (Adult) [...] 31.5 % 12/19/2018 Cbc With Differential Ord2 Warren% 8.0 % 12/19/2018 Cbc With Differential Ord2 [...] 2.16 K/ul 12/19/2018 Cbc With Differential Ord2 Warren ABS# 0.6 K/ul 12/19/2018 Cbc With Differential Ord2 Eos ABS# 0.1 K/ul 12/19/2018 Cbc With Differential Ord2 Baso ABS# 0.0 K/ul 12/19/2018 %Hba1C Pvj439 % HbA1c 82426- 6 6.2 % 12/19/2018 %Hba1C Lom347 Gluc Ave 131 mg/dL 12/19/2018 Lipid Ord30 CHOL 200 mg/dL 12/19/2018 Lipid Ord30 HDL 72.0 mg/dl 12/19/2018 Lipid Ord30 TRIG 83 mg/dL 12/19/2018 Lipid Ord30 LDL 111 mg/dL 12/19/2018 Lipid Ord30 C/HDL 2.8 Ratio 12/19/2018 Tsh Ord6 TSH (3rd IS) 1.58 uIU/mL 12/19/2018 Comp Metabolic Tqz249 NA 139 mEq/L 12/19/2018 Comp Metabolic Gvs000 K 4.5 mEq/L 12/19/2018 Comp Metabolic Wcy274 CL 102 mEq/L 12/19/2018 Comp Metabolic Tsx186 CO2 28.0 mEq/L 12/19/2018 Comp Metabolic Mah914 ANION GAP 14 12/19/2018 Comp Metabolic Xby026 GLUCOSE 112 mg/dL 12/19/2018 Comp Metabolic Myn795 Creat 1.0 mg/dL 12/19/2018 Comp Metabolic Jcn056 eGFR 60 ml/min/1.73m2 12/19/2018 Comp Metabolic Jej415 BUN 23 mg/dL 12/19/2018 Comp Metabolic Zua893 B/C Ratio 24.0 Ratio 12/19/2018 Comp Metabolic Awb202 CALCIUM 9.8 mg/dL 12/19/2018 Comp Metabolic Fra859 ALK PHOS 53 U/L 12/19/2018 Comp Metabolic Xna224 AST(SGOT) 17 U/L 12/19/2018 Comp Metabolic Zvo966 ALT(SGPT) 21 U/L 12/19/2018 Comp Metabolic Vzh615 BILI T 0.4 mg/dL 12/19/2018 Comp Metabolic Sqb153 ALBUMIN 4.1 g/dL 12/19/2018 Comp Metabolic Ndj557 TPRO 6.4 g/dL 12/19/2018 Comp Metabolic Kpf804 GLOB 2.3 g/dL 12/19/2018 Comp Metabolic Vyg499 A/G Ratio 1.8 Ratio 12/19/2018 Comp Metabolic Hgw755 Osmo 282 mOsmo 12/19/2018 Lipid Ord30 CHOL 180 mg/dL 11/25/2017 Lipid Ord30 HDL 52.0 mg/dl 11/25/2017 Lipid Ord30 TRIG 115 mg/dL 11/25/2017 Lipid Ord30 LDL 105 mg/dL 11/25/2017 Lipid Ord30 C/HDL 3.5 Ratio 11/25/2017 %Hba1C Vwl400 % HbA1c 87551- 6 5.7 % 11/25/2017 %Hba1C Ruy026 Gluc Ave 117 mg/dL 11/25/2017 Tsh Ord6 TSH (3rd IS) 1.06 uIU/mL 11/25/2017 Comp Metabolic Vbs835 NA 141 mEq/L 11/25/2017 Comp Metabolic Obz244 K 4.2 mEq/L 11/25/2017 Comp Metabolic Vgp721 CL 103 mEq/L 11/25/2017 Comp Metabolic Pcx823 CO2 31.0 mEq/L 11/25/2017 Comp Metabolic Ghs583 ANION GAP 11 11/25/2017 Comp Metabolic Smp013 GLUCOSE 117 mg/dL 11/25/2017 Comp Metabolic Rlj950 Creat 0.8 mg/dL 11/25/2017 Comp Metabolic Ssw670 eGFR 74 ml/min/1.73m2 11/25/2017 Comp Metabolic Roq822 BUN 18 mg/dL 11/25/2017 Comp Metabolic Dyg176 B/C Ratio 22.2 Ratio 11/25/2017 Comp Metabolic Kei388 CALCIUM 9.4 mg/dL 11/25/2017 Comp Metabolic Zyg174 ALK PHOS 62 U/L 11/25/2017 Comp Metabolic Ywx709 AST(SGOT) 21 U/L 11/25/2017 Comp Metabolic Nya296 ALT(SGPT) 18 U/L 11/25/2017 Comp Metabolic Obc841 BILI T 0.4 mg/dL 11/25/2017 Comp Metabolic Qnv081 ALBUMIN 4.0 g/dL 11/25/2017 Comp Metabolic Vvk446 TPRO 6.1 g/dL 11/25/2017 Comp Metabolic Lon160 GLOB 2.1 g/dL 11/25/2017 Comp Metabolic Aij600 A/G Ratio 1.9 Ratio 11/25/2017 Comp Metabolic Jgb076 Osmo 284 mOsmo 11/25/2017 Cbc With Differential [...] 31.1 pg 11/25/2017 Cbc With Differential Ord2 Warren% 11.2 % 11/25/2017 Cbc With Differential Ord2 [...] 2.03 K/ul 11/25/2017 Cbc With Differential Ord2 Warren ABS# 0.6 K/ul 11/25/2017 Cbc With Differential [...] 31.8 pg 05/11/2016 Cbc With Differential Ord2 Warren% 9.5 % 05/11/2016 Cbc With Differential Ord2 [...] 1.76 K/ul 05/11/2016 Cbc With Differential Ord2 Warren ABS# 0.4 K/ul 05/11/2016 Cbc With Differential Ord2 Eos ABS# 0.1 K/ul 05/11/2016 Cbc With Differential Ord2 Baso ABS# 0.0 K/ul 05/11/2016 Comp Metabolic Avg813 NA 139 mEq/L 05/11/2016 Comp Metabolic Zxr236 K 4.6 mEq/L 05/11/2016 Comp Metabolic Gxj449 CL 104 mEq/L 05/11/2016 Comp Metabolic Hub122 CO2 30.0 mEq/L 05/11/2016 Comp Metabolic Nmm015 ANION GAP 10 05/11/2016 Comp Metabolic Jjn376 GLUCOSE 113 mg/dL 05/11/2016 Comp Metabolic Lcn538 Creat 0.8 mg/dL 05/11/2016 Comp Metabolic Zgq812 eGFR 74 ml/min/1.73m2 05/11/2016 Comp Metabolic Wen571 BUN 16 mg/dL 05/11/2016 Comp Metabolic Guo716 B/C Ratio 19.8 Ratio 05/11/2016 Comp Metabolic Vhn600 CALCIUM 10.1 mg/dL 05/11/2016 Comp Metabolic Jjl214 ALK PHOS 44 U/L 05/11/2016 Comp Metabolic Ysc470 AST(SGOT) 20 U/L 05/11/2016 Comp Metabolic Som589 ALT(SGPT) 17 U/L 05/11/2016 Comp Metabolic Ixz183 BILI T 0.4 mg/dL 05/11/2016 Comp Metabolic Tuf985 ALBUMIN 4.1 g/dL 05/11/2016 Comp Metabolic Kha529 TPRO 6.5 g/dL 05/11/2016 Comp Metabolic Mmn473 GLOB 2.4 g/dL 05/11/2016 Comp Metabolic Ecp850 A/G Ratio 1.8 Ratio 05/11/2016 Comp Metabolic Bqd247 Osmo 280 mOsmo 05/11/2016 Tsh Ord6 hTSH II 0.96 uIU/mL 05/11/2016 Lipid Ord30 CHOL 283 mg/dL 05/11/2016 Lipid Ord30 HDL 53.0 mg/dl 05/11/2016 Lipid Ord30 TRIG 144 mg/dL 05/11/2016 Lipid Ord30 LDL 201 mg/dL 05/11/2016 Lipid Ord30 C/HDL 5.3 Ratio 05/11/2016 C-Reactive Protein Qnt Crqnt CRP 0.5 mg/dl 12/18/2015 Vitamin D 25 Oh Rpv8889 VITAMIN D, 25 HYDROXY 84.50 ng/mL 12/18/2015 Comp Metabolic Fgr020 NA 139 mEq/L 12/18/2015 Comp Metabolic Uqu938 K 3.8 mEq/L 12/18/2015 Comp Metabolic Pwr648 CL 103 mEq/L 12/18/2015 Comp Metabolic Uvj117 CO2 31.0 mEq/L 12/18/2015 Comp Metabolic Rbw021 ANION GAP 9 12/18/2015 Comp Metabolic Vvw969 GLUCOSE 107 mg/dL 12/18/2015 Comp Metabolic Nlc725 Creat 0.8 mg/dL 12/18/2015 Comp Metabolic Slx213 eGFR 80 ml/min/1.73m2 12/18/2015 Comp Metabolic Kub070 BUN 19 mg/dL 12/18/2015 Comp Metabolic Rnh749 B/C Ratio 25.0 Ratio 12/18/2015 Comp Metabolic Dvx119 CALCIUM 9.1 mg/dL 12/18/2015 Comp Metabolic Nfx343 ALK PHOS 42 U/L 12/18/2015 Comp Metabolic Lpd182 AST(SGOT) 17 U/L 12/18/2015 Comp Metabolic Uao467 ALT(SGPT) 18 U/L 12/18/2015 Comp Metabolic Let615 BILI T 0.3 mg/dL 12/18/2015 Comp Metabolic Dsq189 ALBUMIN 3.8 g/dL 12/18/2015 Comp Metabolic Dpv104 TPRO 5.9 g/dL 12/18/2015 Comp Metabolic Kdf485 GLOB 2.1 g/dL 12/18/2015 Comp Metabolic Nin937 A/G Ratio 1.8 Ratio 12/18/2015 Comp Metabolic Mrs272 Osmo 280 mOsmo 12/18/2015 Sed Rate Ord21 [...] 32.0 pg 12/18/2015 Cbc With Differential Ord2 Warren% 9.3 % 12/18/2015 Cbc With Differential Ord2 [...] 1.45 K/ul 12/18/2015 Cbc With Differential Ord2 Warren ABS# 0.5 K/ul 12/18/2015 Cbc With Differential [...] 31.6 pg 09/02/2015 Cbc With Differential Ord2 Warren% 8.8 % 09/02/2015 Cbc With Differential Ord2 [...] 1.53 K/ul 09/02/2015 Cbc With Differential Ord2 Warren ABS# 0.5 K/ul 09/02/2015 Cbc With Differential Ord2 Eos ABS# 0.1 K/ul 09/02/2015 Cbc With Differential Ord2 Baso ABS# 0.0 K/ul 09/02/2015 Cbc With Differential Ord2 New Analyzer Notice Please note new ref ranges starting 08-14-2015 due to implemntation of new five part differential hematolgy analyzer. 09/02/2015 Tsh Ord6 hTSH II 1.41 uIU/mL 09/02/2015 Comp Metabolic Knl855 NA 136 mEq/L 09/02/2015 Comp Metabolic Zwt352 K 4.5 mEq/L 09/02/2015 Comp Metabolic Hfl680 CL 103 mEq/L 09/02/2015 Comp Metabolic Bpv480 CO2 27.0 mEq/L 09/02/2015 Comp Metabolic Bed126 ANION GAP 11 09/02/2015 Comp Metabolic Ekh012 GLUCOSE 109 mg/dL 09/02/2015 Comp Metabolic Hnn791 Creat 1.0 mg/dL 09/02/2015 Comp Metabolic Pcl437 eGFR 62 ml/min/1.73m2 09/02/2015 Comp Metabolic Bki041 BUN 21 mg/dL 09/02/2015 Comp Metabolic Uvl268 B/C Ratio 22.1 Ratio 09/02/2015 Comp Metabolic Zls607 CALCIUM 9.3 mg/dL 09/02/2015 Comp Metabolic Rwh119 ALK PHOS 37 U/L 09/02/2015 Comp Metabolic Gml888 AST(SGOT) 19 U/L 09/02/2015 Comp Metabolic Lzd451 ALT(SGPT) 16 U/L 09/02/2015 Comp Metabolic Pyb124 BILI T 0.4 mg/dL 09/02/2015 Comp Metabolic Dmu080 ALBUMIN 4.1 g/dL 09/02/2015 Comp Metabolic Nrk873 TPRO 6.3 g/dL 09/02/2015 Comp Metabolic Foh830 GLOB 2.2 g/dL 09/02/2015 Comp Metabolic Wdu219 A/G Ratio 1.8 Ratio 09/02/2015 Comp Metabolic Zif106 Osmo 276 mOsmo 09/02/2015 A1C HPLC [id number] A1C HPLC 59272-8 5.6 % 07/23/2014 VIT D TOTL 2436703 VIT D TOTL 52 NG/ML 07/20/2013 GFR CALC 1503844 GFR AA >60 ML/MIN 07/20/2013 GFR CALC 3256209 GFR NON-AA >60 ML/MIN 07/20/2013 CBC [id number] WBC 5.9 10e9/L 07/20/2013 CBC [id number] RBC 4.79 10e12/L 07/20/2013 CBC [id number] HGB 15.5 g/dL 07/20/2013 CBC 4221195 HCT DET 46.1 % 07/20/2013 CBC [id number] MCV 96.2 fL 07/20/2013 CBC [id number] MCH 32.4 pg 07/20/2013 CBC 0810208 MCHC 33.6 g/dL 07/20/2013 CBC [id number] PLT 286 10e9/L 07/20/2013 CBC 1743726 MPV 10.8 fL 07/20/2013 CBC [id number] ERINN % 66.1 % 07/20/2013 CBC 1307981 LY % 24.3 % 07/20/2013 CBC [id number] MON % 8.1 % 07/20/2013 CBC 6121748 EOS % 1.2 % 07/20/2013 CBC 6549846 BASO % 0.3 % 07/20/2013 CBC [id number] RDW 12.7 % 07/20/2013 CBC 7905032 ABS ERINN 3.90 10e9/L 07/20/2013 CBC [id number] ABS LYMPH 1.43 10e9/L 07/20/2013 CBC [id number] ABS MONO 0.48 10e9/L 07/20/2013 CBC 3404298 ABS EOS 0.07 10e9/L 07/20/2013 CBC [id number] ABS BASO 0.02 10e9/L 07/20/2013 CBC [id number] RDW-SD 44.1 fL 07/20/2013 A1C HPLC [id number] A1C HPLC 47410-8 5.9 % 07/20/2013 LIPID GRP HDL TEST 54 MG/DL 07/20/2013 LIPID GRP TRIG 98 MG/DL 07/20/2013 LIPID GRP TEST LDL 95 MG/DL 07/20/2013 LIPID GRP CHOL 169 MG/DL 07/20/2013 LIPID GRP RCHOL/HDL 3.13 RATIO 07/20/2013 TSH 0387264 TSH 1.032 uIU/ML 07/20/2013 CHEM 14 6844914 AST 18 U/L 07/20/2013 CHEM 14 3712241 ALT 13 IU/L 07/20/2013 CHEM 14 3862416 BUN 19 MG/DL 07/20/2013 CHEM 14 1125195 ALBUMIN 4.5 GM/DL 07/20/2013 CHEM 14 5709662 CHLORIDE 105 MMOL/L 07/20/2013 CHEM 14 3298847 BILI TOT 0.5 MG/DL 07/20/2013 CHEM 14 7779388 ALK PHOS 40 U/L 07/20/2013 CHEM 14 1164876 SODIUM 137 MMOL/L 07/20/2013 CHEM 14 0483354 CREATININE 0.76 MG/DL 07/20/2013 CHEM 14 1998903 CALCIUM 10.0 MG/DL 07/20/2013 CHEM 14 2346783 POTASSIUM 4.6 MMOL/L 07/20/2013 CHEM 14 7982117 PROT TOT 6.5 GM/DL 07/20/2013 CHEM 14 1100279 GLUCOSE 118 MG/DL 07/20/2013 CHEM 14 4739285 BICARB 26 MMOL/L 07/20/2013 CHEM 14 6778890 ANION GAP 6 MEQ/L 07/20/2013 VIT B 12 4825756 VIT B 12 492 PG/ML 07/20/2013 Review [...] clear 01/25/2014 None Full Exam - General 1995 Eyes conjunctiva/eyelids Overall: cornea clear 01/25/2014 None [...] masses 07/20/2013 None Full Exam - General 1995 Respiratory auscultation Overall: breath sounds clear bilaterally 07/20/2013 None Full Exam - General 1995 Respiratory respiratory effort/rhythm Overall: no retractions 07/20/2013 None Full Exam - General 1994 Respiratory respiratory effort/rhythm Overall: normal rate 07/20/2013 None Full Exam - General 1995 Cardiovascular auscultation of heart Overall: regular rate [...] SUBSEQ VISIT CPT- 4: G0439 12/03/2017 TOBACCO-USE [employer] 3-[address]: 272481519 CPT-4: G0436 09/08/2016 ADMIN INFLUENZA VIRUS VAC CPT-4: G0008 05/11/2016 PNEUMOCOCCAL VACC 13 SAULO IM Formatting Model/CDA Sections, Assigned to/Rafia Cuadra SNOMED CT: 96741879 CPT-4: 49404Sfzbqjx 05/11/2016 ADMIN PNEUMOCOCCAL VACCINE SNOMED CT: 99116724 CPT-4: G0009 05/11/2016 FLU VACC 4 SAULO 3 YRS PLUS IM Formatting Model/CDA Sections, Assigned to/Rafia Cuadra SNOMED CT: 18842758 CPT-4: 68577Eztuwqa 05/11/2016 TOBACCO-[employer] 3-[address]: 563694597 CPT-4: G0436 02/10/2016 TRIAMCINOLONE ACET INJ NOS CPT-4: J3301 12/16/2015 DRAIN/INJECT JOINT/BURSA CPT-4: 29303 12/16/2015 TOBAC[employer] 3-[address]: 886668826 CPT-4: G0436 12/09/2015 TOBACCO-USE [employer] 3-[address]: 693348293 CPT-4: G0436 10/28/2015 THER/PROPH/DIAG INJ SC/IM CPT-4: 23746 11/12/2014 TRIAMCINOLONE ACET INJ NOS CPT-4: J3301 11/12/2014 ROCEPHIN, PER 250 MG CPT- 4: J0696 11/12/2014 ROUTINE VENIPUNCTURE CPT- 4: 65972 07/23/2014 URINALYSIS NONAUTO W/O SCOPE CPT-4: 96675 03/21/2014 ROUTINE VENIPUNCTURE CPT- 4: 61114 07/20/2013 PRESCRIP TRANSMIT VIA ERX SY CPT-4: G8553 07/20/2013 PRESCRIP TRANSMIT VIA ERX SY CPT-4: G8553 06/22/2013 PARTIAL REMOVAL OF LUNG CPT-4: 59505 Unknown Vital Signs Date Vital 12/19/2018 Blood Pressure 1: 148/80 Code: 8480-6 BMI: 30.1 Code: 58254-3 Heart Rate 1: 70 bpm Height: 5'5" SpO2: 98% Weight: 181 lbs 09/19/2018 Blood Pressure 1: 140/70 Code: 8480-6 BMI: 31.6 Code: 11451-4 Heart Rate 1: 72 bpm Height: 5'5" SpO2: 96% Weight: 190 lbs 06/16/2018 Blood Pressure 1: 146/84 Code: 8480-6 BMI: 30.6 Code: 64109-8 Heart Rate 1: 68 bpm Height: 5'5" SpO2: 99% Weight: 184 lbs 03/25/2018 Blood Pressure 1: 144/80 Code: 8480-6 BMI: 30.0 Code: 79228-8 Heart Rate 1: 65 bpm Height: 5'5" SpO2: 98% Weight: 180 lbs 12/03/2017 Blood Pressure 1: 142/86 Code: 8480-6 BMI: 29.5 Code: 38287-7 Heart Rate 1: 74 bpm Height: 5'5" SpO2: 93% Weight: 177 lbs 11/25/2017 Blood Pressure 1: 142/84 Code: 8480-6 BMI: 29.5 Code: 97291-8 Heart Rate 1: 69 bpm Height: 5'5" SpO2: 99% Weight: 177 lbs 07/09/2017 Blood Pressure 1: 142/68 Code: 8480-6 BMI: 28.3 Code: 38954-7 Heart Rate 1: 48 bpm Height: 5'5" SpO2: 97% Weight: 170 lbs 04/29/2017 Blood Pressure 1: 148/86 Code: 8480-6 BMI: 28.6 Code: 16686-3 Heart Rate 1: 71 bpm Height: 5'5" SpO2: 95% Weight: 172 lbs 01/07/2017 Blood Pressure 1: 140/70 Code: 8480-6 BMI: 28.8 Code: 69600-7 Heart Rate 1: 68 bpm Height: 5'5" SpO2: 96% Weight: 173 lbs 09/08/2016 Blood Pressure 1: 134/70 Code: 8480-6 BMI: 29.1 Code: 29695-8 Heart Rate 1: 68 bpm Height: 5'5" SpO2: 99% Weight: 175 lbs 05/11/2016 Blood Pressure 1: 138/88 Code: 8480-6 BMI: 29.2 Code: 65004-0 Heart Rate 1: 67 bpm Height: 5'6" SpO2: 95% Weight: 178 lbs 02/10/2016 Blood Pressure 1: 148/82 Code: 8480-6 BMI: 28.8 Code: 17507-3 Heart Rate 1: 63 bpm Height: 5'6" SpO2: 97% Weight: 176 lbs 12/18/2015 Blood Pressure 1: 130/78 Code: 8480-6 BMI: 28.8 Code: 81909-5 Heart Rate 1: 66 bpm Height: 5'6" SpO2: 98% Weight: 176 lbs 12/16/2015 Blood Pressure 1: 162/100 Code: 8480-6 BMI: 28.8 Code: 01894-7 Heart Rate 1: 65 bpm Height: 5'6" SpO2: 98% Weight: 176 lbs 12/09/2015 Blood Pressure 1: 142/70 Code: 8480-6 BMI: 28.4 Code: 74695-7 Heart Rate 1: 65 bpm Height: 5'6" SpO2: 96% Weight: 173 lbs 10/28/2015 Blood Pressure 1: 160/82 Code: 8480-6 Blood Pressure 1: 140/86 Code: 8480-6 BMI: 28.5 Code: 67802-5 Heart Rate 1: 60 bpm Height: 5'6" SpO2: 96% Weight: 174 lbs 08/26/2015 Blood Pressure 1: 158/80 Code: 8480-6 Blood Pressure 1: 148/88 Code: 8480-6 BMI: 28.0 Code: 37301-8 Heart Rate 1: 68 bpm Height: 5'6" SpO2: 98% Weight: 171 lbs 02/12/2015 Blood Pressure 1: 136/74 Code: 8480-6 BMI: 25.9 Code: 15042-5 Heart Rate 1: 61 bpm Height: 5'6" SpO2: 97% Weight: 158 lbs 11/12/2014 Blood Pressure 1: 140/82 Code: 8480-6 BMI: 25.9 Code: 93653-7 Heart Rate 1: 64 bpm Height: 5'6" SpO2: 97% Weight: 158 lbs 07/23/2014 Blood Pressure 1: 138/88 Code: 8480-6 BMI: 25.6 Code: 96493-7 Heart Rate 1: 57 bpm Height: 5'6" SpO2: 95% Weight: 156 lbs 03/21/2014 Blood Pressure 1: 124/64 Code: 8480-6 Heart Rate 1: 64 bpm Weight: 147 lbs 01/25/2014 Blood Pressure 1: 130/70 Code: 8480-6 BMI: 24.4 Code: 70445-0 Height: 5'6" Weight: 149 lbs 10/23/2013 Blood Pressure 1: 152/82 Code: 8480-6 BMI: 25.7 Code: 25789-2 Heart Rate 1: 60 bpm Height: 5'6" Weight: 157 lbs 08/21/2013 Blood Pressure 1: 142/90 Code: 8480-6 BMI: 25.9 Code: 90270-3 Heart Rate 1: 56 bpm Height: 5'6" Weight: 158 lbs 07/20/2013 Blood Pressure 1: 164/80 Code: 8480-6 BMI: 26.2 Code: 39589-3 Heart Rate 1: 60 bpm Height: 5'6" SpO2: 98% Weight: 160 lbs 06/22/2013 Blood Pressure 1: 140/84 Code: 8480-6 BMI: 28.2 Code: 63367-8 Heart Rate 1: 60 bpm Height: 5'6" [...] data Encounters Encounter Performer Location Codes Date ([id number]) 41625 EST. PATIENT, LEVEL IV Diagnosis: Essential (primary) hypertension[ICD10: I10] Diagnosis: Impaired fasting glucose[ICD10: R73.01] Diagnosis: Mixed hyperlipidemia[ICD10: E78.2] [facility] CPT- 4: 66577 12/19/2018 ([id number]) 53743 EST. PATIENT, LEVEL IV Diagnosis: Essential (primary) hypertension[ICD10: I10] Diagnosis: Peripheral vascular disease, unspecified[ICD10: I73.9] Diagnosis: Rash and other nonspecific skin eruption[ICD10: R21] Diagnosis: Impaired fasting glucose[ICD10: R73.01] [facility] CPT-4: 89057 09/19/2018 ([id number]) 34001 EST. PATIENT, LEVEL IV Diagnosis: Malignant neoplasm of upper lobe, left bronchus or lung[ICD10: C34.12] Diagnosis: Solitary pulmonary nodule[ICD10: R91.1] Diagnosis: Essential (primary) hypertension[ICD10: I10] Diagnosis: Low back pain[ICD10: M54.5] Diagnosis: Tobacco use[ICD10: Z72.0] Marily Gonzalez MD, [facility] CPT-4: 44581 06/16/2018 ([id number]) 80504 EST. PATIENT, LEVEL IV Diagnosis: Essential (primary) hypertension[ICD10: I10] Diagnosis: Major depressive disorder, recurrent, moderate[ICD10: F33.1] Diagnosis: Low back pain[ICD10: M54.5] Diagnosis: Rash and other nonspecific skin eruption[ICD10: R21] Marily Gonzalez MD, [facility] CPT-4: 42995 03/25/2018 ([id number]) 47127 EST. PATIENT, LEVEL IV Diagnosis: Essential (primary) hypertension[ICD10: I10] Diagnosis: Mixed hyperlipidemia[ICD10: E78.2] Diagnosis: Malignant neoplasm of upper lobe, left bronchus or lung[ICD10: C34.12] Diagnosis: Impaired fasting glucose[ICD10: R73.01] Diagnosis: Cervicalgia[ICD10: M54.2] Diagnosis: Low back pain[ICD10: M54.5] Marily Gonzalez MD, [facility] CPT-4: 10056 11/25/2017 ([id number]) 97400 EST. PATIENT, LEVEL III Diagnosis: Essential (primary) hypertension[ICD10: I10] Marily Gonzalez MD, [facility] CPT-4: 10004 07/09/2017 ([id number]) 56515 EST. PATIENT, LEVEL III Diagnosis: Gas pain[ICD10: R14.1] Diagnosis: Rash and other nonspecific skin eruption[ICD10: R21] Marily Gonzalez MD, [facility] CPT-4: 21051 04/29/2017 ([id number]) 26945 EST. PATIENT, LEVEL III Diagnosis: Essential (primary) hypertension[ICD10: I10] Diagnosis: Malignant neoplasm of upper lobe, left bronchus or lung[ICD10: C34.12] Diagnosis: Chronic obstructive pulmonary disease, unspecified[ICD10: J44.9] Marily Gonzalez MD, [facility] CPT-4: 56783 01/07/2017 ([id number]) 99556 EST. PATIENT, LEVEL IV Diagnosis: Essential (primary) hypertension[ICD10: I10] Diagnosis: Mixed hyperlipidemia[ICD10: E78.2] Diagnosis: Tobacco use[ICD10: Z72.0] Diagnosis: Malignant neoplasm of upper lobe, left bronchus or lung[ICD10: C34.12] Marily Gonzalez MD, [facility] CPT-4: 17884 09/08/2016 ([id number]) 54295 EST. PATIENT, LEVEL IV Diagnosis: Essential (primary) hypertension[ICD10: I10] Diagnosis: Mixed hyperlipidemia[ICD10: E78.2] Diagnosis: Generalized anxiety disorder[ICD10: F41.1] Diagnosis: Other specified disorders of bone density and structure, multiple sites[ICD10: M85.89] Marily Gonzalez MD, [facility] CPT-4: 78607 05/11/2016 ([id number]) 80789 EST. PATIENT, LEVEL IV Diagnosis: Essential (primary) hypertension[ICD10: I10] Diagnosis: Generalized anxiety disorder[ICD10: F41.1] Diagnosis: Tobacco use[ICD10: Z72.0] Marily Gonzalez MD, [facility] CPT-4: 20460 02/10/2016 [id number] EST. PATIENT, LEVEL IV Diagnosis: Myalgia[ICD10: M79.1] Diagnosis: Low back pain[ICD10: M54.5] Joy Gonzalez MD, [facility] CPT-4: 42646 12/18/2015 11405 EST. PATIENT, LEVEL IV Diagnosis: Low back pain[ICD10: M54.5] Diagnosis: Pain in right hip[ICD10: M25.551] Joy Gonzalez MD, [facility] CPT-4: 44193 12/16/2015 ([id number]) 26406 EST. PATIENT, LEVEL IV Diagnosis: Low back pain[ICD10: M54.5] Diagnosis: Malignant neoplasm of upper lobe, left bronchus or lung[ICD10: C34.12] Diagnosis: Tobacco use[ICD10: Z72.0] Diagnosis: Essential (primary) hypertension[ICD10: I10] Diagnosis: Generalized anxiety disorder[ICD10: F41.1] Marily Gonzalez MD, [facility] CPT-4: 32357 12/09/2015 ([id number]) 24785 EST. PATIENT, LEVEL IV Diagnosis: Essential (primary) hypertension[ICD10: I10] Diagnosis: Tobacco use[ICD10: Z72.0] Diagnosis: Solitary pulmonary nodule[ICD10: R91.1] Marily Gonzalez MD, [facility] CPT-4: 78473 10/28/2015 ([id number]) 77386 EST. PATIENT, LEVEL IV Diagnosis: Essential (primary) hypertension[ICD10: I10] Diagnosis: Bilateral primary osteoarthritis of hip[ICD10: M16.0] Diagnosis: Solitary pulmonary nodule[ICD10: R91.1] Marily Gonzalez MD, [facility] CPT-4: 48241 08/26/2015 ([id number]) 49876 EST. PATIENT, LEVEL IV Diagnosis: ESSENTIAL HYPERTENSION[ICD9: 401.9] Diagnosis: Pulmonary nodule[ICD9: 793.11] Teresa Gonzalez MD, [facility] CPT-4: 81637 02/12/2015 ([id number]) 82555 EST. PATIENT, LEVEL III Diagnosis: ACUTE BRONCHITIS[ICD9: 466.0] Diagnosis: ALLERGIC RHINITIS[ICD9: 477.9] Teresa Gonzalez MD, [facility] CPT-4: 67249 11/12/2014 ([id number]) 86534 EST. PATIENT, LEVEL IV Diagnosis: ESOPHAGEAL REFLUX[ICD9: 530.81] Diagnosis: ESSENTIAL HYPERTENSION[ICD9: 401.9] Diagnosis: Elevated blood sugar[ICD9: 790.29] Marily Gonzalez MD, [facility] CPT- 4: 32517 07/23/2014 ([id number]) 71392 EST. PATIENT, LEVEL III Diagnosis: Vaginal yeast infection[ICD9: 112.1] Diagnosis: Vaginal burning[ICD9: 625.8] Diagnosis: History of UTI[ICD9: V13.02] Diagnosis: Dysuria[ICD9: 788.1] Marily Gonzalez MD, [facility] CPT-4: 18196 03/21/2014 ([id number] 47694 EST. PATIENT, LEVEL III Diagnosis: ESSENTIAL HYPERTENSION[ICD9: 401.9] Marily Gonzalez MD, [facility] CPT-4: 96340 01/25/2014 ([id number]) 45822 EST. PATIENT, LEVEL III Diagnosis: ESSENTIAL HYPERTENSION[SNOMED: 17970643] Diagnosis: ESOPHAGEAL REFLUX[ICD9: 530.81] Teresa Gonzalez MD, [facility] CPT-4: 11282 10/23/2013 ([id number]) 18868 EST. PATIENT, LEVEL IV Diagnosis: ESOPHAGEAL REFLUX[ICD9: 530.81] Diagnosis: ESSENTIAL HYPERTENSION[SNOMED: 02558439] Diagnosis: Rash[ICD9: 782.1] Marily Gonzalez MD, [facility] CPT-4: 72074 08/21/2013 ([id number]) 29503 EST. PATIENT, LEVEL IV Diagnosis: Muscle ache of extremity[ICD9: 729.1] Diagnosis: Tingling in extremities[ICD9: 782.0] Diagnosis: ESSENTIAL HYPERTENSION[SNOMED: 57273240] Diagnosis: GERD (gastroesophageal reflux disease)[ICD9: 530.81] Diagnosis: Elevated blood sugar[ICD9: 790.29] Marily Gonzalez MD, [facility] CPT- 4: 72109 07/20/2013 OFFICE VISIT, NEW - LEVEL 3 Diagnosis: ESSENTIAL HYPERTENSION[SNOMED: 43551551] Diagnosis: Tobacco use[ICD9: 305.1] Diagnosis: Depression[ICD9: 311] Marily Gonzalez MD, [facility] CPT-4: 48627 06/22/2013 ([id number]) BEHAV CHNG SMOKING 3-10 MIN Diagnosis: [ICD9: ] Marily Gonzalez MD, [facility] CPT-4: 13683 06/22/2013 Plan of Care Planned Activity Notes [...] Pending 12/19/2018 Care Plan: %Hba1C LOINC : 89562-5 Pending 12/19/2018 Care Plan: Tsh Pending 12/19/2018 [...] -check TA 09/19/2018 Appointment: Marily Valerio WPtel: [phone] (30 min) Complex 09/19/2018 Patient Education: Patient Medication Summary Completed 09/19/2018 Appointment: Marily Valerio WPtel: [phone] (15 min) Moderate 09/16/2018 Patient Education: Patient Medication Summary Completed 06/27/2018 Visit Plan: Lung nodule -right lung -on surveillance -patient also has history of left lung cancer with lobectomy -does not want to go to for oncology -wants to see Dr Mata at [facility] in [place] -will send referral Lumbar radiculopathy -rx for gabapentin provided and instructed on use - recommend patient return to Dr Herrera to discussed epidural injections HTN-controlled- no changes Tobacco use-patient continues to smoke and is not interested in quitting -smoking cessation encouraged 06/16/2018 Appointment: Marily Valerio WPtel: [facility]9 [phone] (30 min) Complex 06/16/2018 Patient Education: Patient [...] start PT 03/25/2018 Appointment: Marily Valerio WPtel: [address] [place], [place] [phone] (15 min) Moderate 03/25/2018 Patient Education: Patient [...] vs PT 11/25/2017 Appointment: Marily Valerio WPtel: [facility]0 [address] (15 min) Moderate 11/25/2017 Patient Education: Patient Medication Summary Completed 11/25/2017 Care Plan: X-RAY EXAM L-S SPINE 2/3 VWS LOINC : 61509-9 Pending 11/25/2017 Care Plan: X-RAY EXAM NECK SPINE 2-3 VW LOINC : 06533-7 Pending 11/25/2017 Appointment: Marily Valerio WPtel: [phone] (15 min) Moderate 11/02/2017 Visit Plan: Hypertension [...] Dr Ryan 07/09/2017 Appointment: Marily Valerio WPtel: [phone] [phone] (15 min) Moderate 07/09/2017 Patient Education: Patient Medication Summary Completed 07/09/2017 Patient Education: Smoking and Tobacco Addiction Completed 07/09/2017 Appointment: Marily Valerio WPtel: [address] [place] [address] (15 min) Moderate 07/08/2017 Visit Plan: Gas and bloating-cut out dairy x 2 weeks-increase gas x to TID-call if symptoms uncontrolled Rash-rx for nystatin powder provided-keep clean/dry-call if does not resolve or if any worse 04/29/2017 Appointment: Marily Valerio WPtel: [address] [place] [address] (15 min) Moderate 04/29/2017 Patient Education: Patient [...] nicotine patches 01/07/2017 Appointment: Marily Valerio WPtel: [address] [place] [address] (15 min) Moderate 01/07/2017 Patient Education: Patient Medication Summary Completed 01/07/2017 Patient Education: Smoking and Tobacco Addiction Completed 01/07/2017 Patient Education: Hypertension Completed 01/07/2017 Appointment: Marily Valerio WPtel: [address] [place] [address] (30 min) Complex 01/05/2017 Visit Plan: Hypertension [...] Ryan in 09/08/2016 Appointment: Marily Valerio WPtel: [phone] (15 min) Moderate 09/08/2016 Patient Education: Patient [...] bone density 05/11/2016 Appointment: [facility] Valerio WPtel[phone] (15 min) Moderate 05/11/2016 Patient Education: Patient [...] Care Plan: [facility] : 92148-9 Cancelled 01/17/2016 Visit Plan: Continued Low back [...] or if they worsen. 12/18/2015 Appointment: Marily Valerio WPtel: [address] [place], [place] [phone] (30 min) [facility] 12/18/2015 Patient Education: Patient Medication Summary Completed [...] improve or if they worsen. 12/16/2015 Appointment: Mark Joy [facility]Ptel: [phone] [facility] [place] (15 min) Moderate 12/16/2015 Patient Education: [...] to have left upper lobe removed at -[facility] this week to schedule Tobacco use-no cigarettes [...] blood pressure readings at home. Arthritis of tkbu-kvsj-vobkt mobic-monitor symptoms-check labs Left lung nodule- most recent scan shows slight increase in size and needs further evaluation- managed by Dr Corea-[facility] is this 08/26/2015 Appointment: Marily Valerio WPtel[facility] [phone] [phone] [place] (30 min) Complex 08/26/2015 Patient Education: Patient Medication Summary Completed 08/26/2015 Patient Education: Hypertension Completed 08/26/2015 [facility]ment: [phone] [place] (15 min) Moderate 08/15/2015 Appointment: [phone] [facility] [place] (15 min) Moderate 08/15/2015 Visit Plan: Hypertension - well controlled - continue with current medications, continue with no added salt diet. Pt has been encouraged to exercise daily. The pt has been advised to call the office if there are any acute concerns about change in blood pressure readings at home. Pulmonary nodule - Recommended repeat CT scan. 02/12/2015 Appointment: [phone] Follow up 02/12/2015 Patient Education: Patient Medication [...] bloating-use dicyclomine prn Elevated blood sugar-check Hgb M5B-bzl back on sweets/carbs 07/23/2014 Appointment: Follow up [...] at home. 01/25/2014 Appointment: Marily Valerio WPtel[facility] [phone] [phone] Follow up 01/25/2014 Patient Education: Patient Medication [...] Dr. Mckeon. 10/23/2013 Appointment: Teresa Gonzalez WPtel: [phone] [facility] Follow up 10/23/2013 Patient Education: Patient Medication [...] any worse. 08/21/2013 Appointment: Marily Valerio WPtel: [phone] [phone] Follow up 08/21/2013 Patient Education: Patient Medication [...] with Dr Combs as scheduled Tingling of rfrqhhgrooe-yopclgqr-vdkly labs including vitamin b12 and vitamin d Elevated blood sugar-check hgb a1c 07/20/2013 Appointment: Marily Valerio WPtel: [facility]5 [phone] [place] [address] Follow up 07/20/2013 Patient Education: Patient Medication [...] quit date. 06/22/2013 Appointment: Marily Valerio WPtel: [phone] [phone] [place] New Patient 06/22/2013 Patient Education: Patient Medication Summary Completed 06/22/2013 Patient Education: Hypertension Completed 06/22/2013 Patient Education: Smoking and Tobacco Addiction Completed 06/22/2013 Instructions Comment CHECK LABS TODAY . Hypertension - well controlled - continue with current medications, continue with no added salt diet. Pt has been encouraged to exercise daily. The pt has been advised to call the office if there are any acute concerns about change in blood pressure readings at home. Hyperlipidemia-check labs Elevated blood sugars-check Hgb A1C . Gas and bloating-cut out dairy x [...] EGD by Dr. Mckeon. Dr Mata at [facility] ( or wednesday) gabapentin 100mg at bedtime screening mammogram make an appt with Dr Herrera to discuss epidural injections . Lung nodule -right lung -on surveillance -patient also has history of left lung cancer with lobectomy -does not want to go to for oncology -wants to see Dr Mata at [facility] in [place] -will send referral Lumbar radiculopathy -rx for [...] with Dr Combs as scheduled Tingling of jrvydroellk-fcursfhy-qunxx labs including vitamin b12 and vitamin d [...] back pain-spinal stenosis-patient to start PT BONE DENSITY-HOURLY SHIFT MON-THURS FLU AND PREVNAR 13 . Hypertension - [...] cancer-post radiation-will see Dr Ryan in October . Hypertension - well controlled - continue [...] change in blood pressure readings at home. PATIENT IS TO CHECK BLOOD PRESSURE AND [...] blood pressure readings at home. Arthritis of xnrv-lchk-stvcp mobic-monitor symptoms-check labs Left lung nodule-most recent [...] [facility] Tobacco use-no cigarettes since Wednesday-start wellbutrin to aide with cessation . Dysuria-vaginal burning-UA positive for blood and leukocystes today in the office-will send for culture and proceed as indicated. Diflucan sent to patient's pharmacy and instructed on use. Patient verbalized understanding of plan. Monitor your blood pressure at home and [...] bloating-use dicyclomine prn Elevated blood sugar-check Hgb U1L-tip back on sweets/carbs . Hypertension - well [...]
--- OUTSIDE RECORDS SUMMARY | 2019-03-31 08:28 | XMS REPORT | CCD ---
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 Unknown Has never used illegal drugs 06/22/2013 Allergies, Adverse Reactions, Alerts Substance Reaction Codes Entered Date Inactivated Date Status lisinopril cough, RxNorm: 83349 06/22/2013 No Inactive Date Active SULFA (SULFONAMIDE [...] Fill Instructions dicyclomine 10 mg capsule RxNorm: 995659 1 Capsule(s) PO TID PRN TAKE ONE CAPSULE BY MOUTH THREE TIMES A DAY NEEDED 12/19/2018 12/02/2021 Active DISREGARD ORDER FOR 20MG PILLS olmesartan 40 mg tablet RxNorm: 924146 1 Tablet(s) PO daily 12/19/2018 01/17/2019 Active dicyclomine 20 mg tablet RxNorm: 864708 1 Tablet(s) PO TID PRN TAKE ONE CAPSULE BY MOUTH THREE TIMES A DAY NEEDED 12/19/2018 12/19/2018 Inactive PA approved amlodipine 10 mg tablet RxNorm: 430088 TAKE ONE TABLET BY MOUTH EVERY DAY 12/15/2018 06/12/2019 Active dicyclomine 20 mg tablet RxNorm: 303417 1 Tablet(s) PO TID PRN TAKE ONE CAPSULE BY MOUTH THREE TIMES A DAY NEEDED 10/28/2018 12/18/2018 Inactive PA approved gabapentin 300 mg capsule RxNorm: 659992 1 Capsule(s) PO BID 09/30/2018 01/27/2019 Active after 14 days of HS increase to BID gabapentin 300 mg capsule RxNorm: 131034 1 Capsule(s) PO QHS 09/30/2018 09/29/2018 Inactive then increase to BID Lyrica 50 mg capsule RxNorm: 750783 1 Capsule(s) PO BID 09/27/2018 12/25/2018 Active Lyrica 50 mg capsule RxNorm: 439005 1 Capsule(s) PO BID 09/27/2018 09/26/2018 Inactive nystatin 100,000 unit/gram topical cream RxNorm: 590747 1 Application TOP BID 09/19/2018 10/02/2018 Inactive mix with betamethasone Diovan 320 mg tablet RxNorm: 920322 1 Tablet(s) PO daily 09/19/2018 03/17/2019 Active metoprolol tartrate 100 mg tablet RxNorm: 119694 1 Tablet(s) PO BID TAKE ONE TABLET BY MOUTH TWICE A DAY 09/19/2018 06/15/2019 Active dicyclomine 20 mg tablet RxNorm: 191663 1 Tablet(s) PO TID PRN TAKE ONE CAPSULE BY MOUTH THREE TIMES A DAY NEEDED 09/19/2018 10/27/2018 Inactive betamethasone dipropionate 0.05 % topical cream RxNorm: 036551 1 Application TOP BID 09/19/2018 10/02/2018 Inactive dicyclomine 10 mg capsule RxNorm: 844812 1 Capsule(s) PO TID PRN TAKE ONE CAPSULE BY MOUTH THREE TIMES A DAY NEEDED 09/19/2018 09/18/2018 Inactive nystatin 100,000 unit/gram topical cream RxNorm: 416005 1 Application TOP BID 06/16/2018 06/29/2018 Inactive gabapentin 100 mg capsule RxNorm: 306732 1 Capsule(s) PO UD 06/16/2018 07/15/2018 Inactive 1 po q HS x 1 week then 2 po q HS x 1 week then increase to 3 q HS amlodipine 10 mg tablet RxNorm: 733912 TAKE ONE TABLET BY MOUTH EVERY DAY 05/26/2018 11/21/2018 Inactive Lipitor 10 mg tablet RxNorm: 218342 Tablet(s) TAKE ONE TABLET BY MOUTH EVERY OTHER DAY 05/25/2018 02/18/2019 Active Lexapro 20 mg tablet RxNorm: 118011 1 Tablet(s) PO QPM 03/25/2018 09/20/2018 Inactive nystatin 100,000 unit/gram topical cream RxNorm: 158651 1 Application TOP BID 03/25/2018 04/07/2018 Inactive olmesartan 40 mg tablet RxNorm: 433576 1 Tablet(s) PO daily 03/25/2018 09/18/2018 Inactive Diovan 320 mg tablet RxNorm: 032439 TAKE ONE TABLET BY MOUTH DAILY 03/18/2018 03/24/2018 Inactive Lipitor 10 mg tablet RxNorm: 965106 TAKE ONE TABLET BY MOUTH EVERY OTHER DAY 03/18/2018 12/11/2018 Inactive metoprolol tartrate 100 mg tablet RxNorm: 369559 TAKE ONE TABLET BY MOUTH TWICE A DAY 01/05/2018 09/18/2018 Inactive Diovan 320 mg tablet RxNorm: 475735 TAKE ONE TABLET BY MOUTH EVERY DAY 12/16/2017 03/17/2018 Inactive Lexapro 10 mg tablet RxNorm: 380651 1 Tablet(s) PO QPM 11/25/2017 03/24/2018 Inactive amlodipine 10 mg tablet RxNorm: 236670 TAKE ONE TABLET BY MOUTH EVERY DAY 11/15/2017 05/13/2018 Inactive Lipitor 10 mg tablet RxNorm: 707997 TAKE ONE TABLET BY MOUTH EVERY OTHER DAY 10/18/2017 03/17/2018 Inactive dicyclomine 10 mg capsule RxNorm: 600546 TAKE ONE CAPSULE BY MOUTH THREE TIMES A DAY NEEDED 08/12/2017 09/18/2018 Inactive Lipitor 10 mg tablet RxNorm: 552048 TAKE ONE TABLET BY MOUTH EVERY OTHER DAY 07/12/2017 10/17/2017 Inactive Diovan 320 mg tablet RxNorm: 690152 TAKE ONE TABLET BY MOUTH EVERY DAY 06/09/2017 12/05/2017 Inactive dicyclomine 10 mg capsule RxNorm: 827763 TAKE ONE CAPSULE BY MOUTH THREE TIMES A DAY NEEDED 05/05/2017 08/02/2017 Inactive nystatin 100,000 unit/gram topical powder RxNorm: 722193 1 Application TOP BID 04/29/2017 05/08/2017 Inactive Diovan 320 mg tablet RxNorm: 511468 TAKE ONE TABLET BY MOUTH EVERY DAY 03/10/2017 06/07/2017 Inactive dicyclomine 10 mg capsule RxNorm: 903739 TAKE ONE CAPSULE BY MOUTH THREE TIMES A DAY NEEDED 02/04/2017 05/04/2017 Inactive amlodipine 10 mg tablet RxNorm: 905183 TAKE ONE TABLET BY MOUTH EVERY DAY 02/04/2017 10/31/2017 Inactive Lipitor 10 mg tablet RxNorm: 227305 TAKE ONE TABLET BY MOUTH EVERY OTHER DAY 02/04/2017 07/11/2017 Inactive Fish Oil 1,000 mg capsule RxNorm: 1 Capsule(s) PO TID 01/07/2017 No Stop Date Active metoprolol tartrate 100 mg tablet RxNorm: 785623 1 Tablet(s) PO BID TAKE ONE TABLET BY MOUTH TWICE A DAY 01/07/2017 01/01/2018 Inactive Diovan 320 mg tablet RxNorm: 869833 TAKE ONE TABLET BY MOUTH EVERY DAY 11/05/2016 03/04/2017 Inactive Lipitor 10 mg tablet RxNorm: 263631 1 Tablet(s) PO every other day 09/08/2016 01/05/2017 Inactive dc livalo dicyclomine 10 mg capsule RxNorm: 662391 TAKE ONE CAPSULE BY MOUTH THREE TIMES A DAY NEEDED 07/30/2016 01/25/2017 Inactive Diovan 320 mg tablet RxNorm: 960751 TAKE ONE TABLET BY MOUTH EVERY DAY 06/15/2016 11/04/2016 Inactive Lipitor 10 mg tablet RxNorm: 810465 1 Tablet(s) PO every other day 05/25/2016 05/24/2016 Inactive dc livalo Lipitor 10 mg tablet RxNorm: 427038 1 Tablet(s) PO every other day 05/25/2016 09/07/2016 Inactive dc livalo Livalo 2 mg tablet RxNorm: 530283 1 Tablet(s) PO daily 05/20/2016 05/19/2016 Inactive Livalo 2 mg tablet RxNorm: 076701 1 Tablet(s) PO daily 05/20/2016 05/24/2016 Inactive Celexa 10 mg tablet RxNorm: 378904 1 Tablet(s) PO daily 02/10/2016 11/24/2017 Inactive amlodipine 10 mg tablet RxNorm: 875960 TAKE ONE TABLET BY MOUTH EVERY DAY 02/03/2016 02/02/2016 Inactive amlodipine 10 mg tablet RxNorm: 950144 TAKE ONE TABLET BY MOUTH EVERY DAY 02/03/2016 01/27/2017 Inactive amlodipine 10 mg tablet RxNorm: 695399 TAKE ONE TABLET BY MOUTH EVERY DAY 02/03/2016 04/27/2017 Inactive metoprolol tartrate 100 mg tablet RxNorm: 338022 TAKE ONE TABLET BY MOUTH TWICE A DAY 2016 01/06/2017 Inactive Diovan 320 mg tablet RxNorm: 173650 TAKE ONE TABLET BY MOUTH EVERY DAY 12/19/2015 06/14/2016 Inactive Wellbutrin XL 150 mg 24 hr tablet, extended release RxNorm: 190178 1 Tablet(s) PO daily 12/09/2015 02/09/2016 Inactive tramadol 50 mg tablet RxNorm: 516367 1-2 Tablet(s) PO Q6 PRN 12/09/2015 11/24/2017 Inactive Mobic 7.5 mg tablet RxNorm: 029774 TAKE ONE TABLET BY MOUTH DAILY 11/11/2015 11/24/2017 Inactive dicyclomine 10 mg capsule RxNorm: 627647 TAKE ONE CAPSULE BY MOUTH THREE TIMES A DAY NEEDED 11/11/2015 07/29/2016 Inactive Wellbutrin 75 mg tablet RxNorm: 205840 1 Tablet(s) PO BID 10/28/2015 12/08/2015 Inactive simvastatin 20 mg tablet RxNorm: 016119 TAKE ONE TABLET BY MOUTH EVERY DAY 09/05/2015 2016 Inactive Mobic 7.5 mg tablet RxNorm: 448476 1 Tablet(s) PO daily 08/26/2015 11/10/2015 Inactive estradiol 0.5 mg tablet RxNorm: 686022 TAKE ONE TABLET BY MOUTH EVERY DAY 06/11/2015 03/06/2016 Inactive amlodipine 10 mg tablet RxNorm: 282661 TAKE ONE TABLET BY MOUTH EVERY DAY 04/19/2015 01/13/2016 Inactive dicyclomine 10 mg capsule RxNorm: 302837 TAKE ONE CAPSULE BY MOUTH THREE TIMES A DAY NEEDED 04/19/2015 10/15/2015 Inactive simvastatin 20 mg tablet RxNorm: 644633 TAKE ONE TABLET BY MOUTH EVERY DAY 02/21/2015 08/19/2015 Inactive Diovan 320 mg tablet RxNorm: 373136 TAKE ONE TABLET BY MOUTH EVERY DAY 12/19/2014 12/18/2015 Inactive cephalexin 500 mg capsule RxNorm: 636467 1 Capsule(s) PO TID 11/13/2014 11/19/2014 Inactive prednisone 10 mg tablet RxNorm: 997644 3 Tablet(s) PO daily 11/13/2014 11/17/2014 Inactive prednisone 10 mg tablet RxNorm: 822481 3 Tablet(s) PO daily 11/12/2014 11/12/2014 Inactive Kenalog 40 mg/mL suspension for injection RxNorm: 9663059 Milliliter(s) Inj 11/12/2014 11/12/2014 Inactive cephalexin 500 mg capsule RxNorm: 672087 1 Capsule(s) PO TID 11/12/2014 11/12/2014 Inactive ceftriaxone 500 mg solution for injection RxNorm: 6837775 Inj 11/12/2014 11/12/2014 Inactive dicyclomine 10 mg capsule RxNorm: 928556 TAKE ONE CAPSULE BY MOUTH THREE TIMES A DAY NEEDED 11/08/2014 04/18/2015 Inactive metoprolol tartrate 100 mg tablet RxNorm: 215300 TAKE ONE TABLET BY MOUTH TWICE A DAY 10/18/2014 2015 Inactive metoprolol tartrate 100 mg tablet RxNorm: 346516 1 Tablet(s) PO BID 10/18/2014 10/12/2015 Inactive simvastatin 20 mg tablet RxNorm: 449416 TAKE ONE TABLET BY MOUTH EVERY DAY 08/21/2014 02/16/2015 Inactive Diovan 320 mg tablet RxNorm: 341635 TAKE ONE TABLET BY MOUTH EVERY DAY 08/21/2014 12/18/2014 Inactive Carafate 1 gram tablet RxNorm: 698748 1 Tablet(s) PO AC & HS MIX WITH 30ML WATER 07/23/2014 11/24/2017 Inactive dissolve in water and drink as slurry dicyclomine 10 mg capsule RxNorm: 896786 1 Capsule(s) PO TID PRN 07/23/2014 10/20/2014 Inactive simvastatin 20 mg tablet RxNorm: 591477 TAKE ONE TABLET BY MOUTH EVERY DAY 06/07/2014 08/20/2014 Inactive estradiol 0.5 mg tablet RxNorm: 551268 TAKE ONE TABLET BY MOUTH EVERY DAY 05/16/2014 05/10/2015 Inactive amlodipine 10 mg tablet RxNorm: 179447 TAKE ONE TABLET BY MOUTH EVERY DAY 05/16/2014 04/18/2015 Inactive Diovan 320 mg tablet RxNorm: 764765 TAKE ONE TABLET BY MOUTH EVERY DAY 03/26/2014 08/20/2014 Inactive Diflucan 150 mg tablet RxNorm: 152790 1 Tablet(s) PO daily 03/21/2014 03/27/2014 Inactive simvastatin 20 mg tablet RxNorm: 966857 TAKE ONE TABLET BY MOUTH EVERY DAY 03/02/2014 05/30/2014 Inactive estradiol 0.5 mg tablet RxNorm: 562420 TAKE ONE TABLET BY MOUTH EVERY DAY 02/16/2014 05/15/2014 Inactive amlodipine 10 mg tablet RxNorm: 133698 TAKE ONE TABLET BY MOUTH EVERY DAY 02/16/2014 05/15/2014 Inactive pantoprazole 40 mg tablet,delayed release RxNorm: 065113 2 Tablet(s) PO daily 01/25/2014 02/23/2014 Inactive simvastatin 20 mg tablet RxNorm: 917647 Tablet(s) PO TAKE ONE TABLET BY MOUTH EVERY DAY 11/30/2013 03/01/2014 Inactive amlodipine 10 mg tablet RxNorm: 307703 Tablet(s) PO TAKE ONE TABLET BY MOUTH EVERY DAY 11/16/2013 02/15/2014 Inactive metoprolol tartrate 100 mg tablet RxNorm: 988397 1 Tablet(s) PO BID 10/23/2013 10/17/2014 Inactive Diovan 320 mg tablet RxNorm: 261552 Tablet(s) PO TAKE ONE TABLET BY MOUTH EVERY DAY 09/28/2013 03/25/2014 Inactive Carafate 1 gram tablet RxNorm: 192259 1 Tablet(s) PO TID MIX WITH 30ML WATER 09/20/2013 12/18/2013 Inactive estradiol 0.5 mg tablet RxNorm: 163054 1 Tablet(s) PO daily 08/21/2013 02/15/2014 Inactive amlodipine 10 mg tablet RxNorm: 317801 1 Tablet(s) PO daily 08/21/2013 11/15/2013 Inactive simvastatin 20 mg tablet RxNorm: 845263 1 Tablet(s) PO daily 08/21/2013 11/18/2013 Inactive Diovan 320 mg tablet RxNorm: 934488 1 Tablet(s) PO daily 08/21/2013 09/19/2013 Inactive Carafate 1 gram tablet RxNorm: 786739 1 Tablet(s) PO TID MIX WITH 30ML WATER 08/21/2013 09/19/2013 Inactive Diovan 320 mg tablet RxNorm: 451126 1 Tablet(s) PO daily 07/20/2013 08/18/2013 Inactive amlodipine 10 mg tablet RxNorm: 066389 1 Tablet(s) PO daily 07/20/2013 08/18/2013 Inactive estradiol 0.5 mg tablet RxNorm: 219660 1 Tablet(s) PO daily 07/20/2013 08/18/2013 Inactive metoprolol tartrate 100 mg tablet RxNorm: 648033 1 Tablet(s) PO BID 06/22/2013 10/22/2013 Inactive Wellbutrin XL 150 mg 24 hr tablet, extended release RxNorm: 671789 1 Tablet(s) PO daily 06/22/2013 07/19/2013 Inactive pantoprazole 40 mg tablet,delayed release RxNorm: 681955 1 Tablet(s) PO daily No Start Date Active calcium 500 mg tablet RxNorm: 2 Tablet(s) PO BID No Start Date Active glucosamine and ijqokgziyhh-youcmaix-bjmc#3 oral RxNorm: 2837 oral No Start Date Active multivitamin tablet RxNorm: 1 Tablet(s) PO daily No Start Date Active aspirin 81 mg tablet RxNorm: 315945 1 Tablet(s) PO daily No Start Date Active Probiotic oral RxNorm: oral No Start Date Active Vitamin D3 1,000 unit capsule RxNorm: 707576 1 Capsule(s) PO daily No Start Date Active Eliquis 5 mg tablet RxNorm: 4211314 1 Tablet(s) PO BID No Start Date Active simvastatin 20 mg tablet RxNorm: 140816 1 Tablet(s) PO daily No Start Date 08/20/2013 Inactive hyoscyamine 0.125 mg sublingual tablet RxNorm: 9246019 1 Tablet(s) SL TID No Start Date 07/22/2014 Inactive metoprolol tartrate 100 mg tablet RxNorm: 789854 1 Tablet(s) PO daily No Start Date 06/21/2013 Inactive amlodipine 10 mg tablet RxNorm: 470565 1 Tablet(s) PO daily No Start Date 07/19/2013 Inactive Diovan 320 mg tablet RxNorm: 286483 1 Tablet(s) PO daily No Start Date 07/19/2013 Inactive Fish Oil 1,000 mg capsule RxNorm: 1 Capsule(s) PO BID No Start Date 01/06/2017 Inactive omeprazole 20 mg tablet,delayed release RxNorm: 158360 1 Tablet(s) PO daily No Start Date 01/25/2014 Inactive estradiol 0.5 mg tablet RxNorm: 958066 1 Tablet(s) PO daily No Start Date 07/19/2013 Inactive Medication Administered Medication Codes Instructions Start Date Status Kenalog 40 mg/mL suspension for injection RxNorm: 1276486 Milliliter 11/12/2014 No longer Active ceftriaxone 500 mg solution for injection RxNorm: 5998001 11/12/2014 No longer Active Immunizations Vaccine Codes [...] 31.5 % 12/19/2018 Cbc With Differential Ord2 Nash% 8.0 % 12/19/2018 Cbc With Differential Ord2 [...] 2.16 K/ul 12/19/2018 Cbc With Differential Ord2 Nash ABS# 0.6 K/ul 12/19/2018 Cbc With Differential Ord2 Eos ABS# 0.1 K/ul 12/19/2018 Cbc With Differential Ord2 Baso ABS# 0.0 K/ul 12/19/2018 %Hba1C Spw648 % HbA1c 19803- 6 6.2 % 12/19/2018 %Hba1C Hxs491 Gluc Ave 131 mg/dL 12/19/2018 Lipid Ord30 CHOL 200 mg/dL 12/19/2018 Lipid Ord30 HDL 72.0 mg/dl 12/19/2018 Lipid Ord30 TRIG 83 mg/dL 12/19/2018 Lipid Ord30 LDL 111 mg/dL 12/19/2018 Lipid Ord30 C/HDL 2.8 Ratio 12/19/2018 Tsh Ord6 TSH (3rd IS) 1.58 uIU/mL 12/19/2018 Comp Metabolic Hyo382 NA 139 mEq/L 12/19/2018 Comp Metabolic Jmm593 K 4.5 mEq/L 12/19/2018 Comp Metabolic Lmx707 CL 102 mEq/L 12/19/2018 Comp Metabolic Ffx268 CO2 28.0 mEq/L 12/19/2018 Comp Metabolic Nax778 ANION GAP 14 12/19/2018 Comp Metabolic Vgg913 GLUCOSE 112 mg/dL 12/19/2018 Comp Metabolic Xbs281 Creat 1.0 mg/dL 12/19/2018 Comp Metabolic Clh284 eGFR 60 ml/min/1.73m2 12/19/2018 Comp Metabolic Bxs120 BUN 23 mg/dL 12/19/2018 Comp Metabolic Uwd392 B/C Ratio 24.0 Ratio 12/19/2018 Comp Metabolic Vdu040 CALCIUM 9.8 mg/dL 12/19/2018 Comp Metabolic Jks085 ALK PHOS 53 U/L 12/19/2018 Comp Metabolic Mjc445 AST(SGOT) 17 U/L 12/19/2018 Comp Metabolic Kxr545 ALT(SGPT) 21 U/L 12/19/2018 Comp Metabolic Esp163 BILI T 0.4 mg/dL 12/19/2018 Comp Metabolic Wtj839 ALBUMIN 4.1 g/dL 12/19/2018 Comp Metabolic Njq901 TPRO 6.4 g/dL 12/19/2018 Comp Metabolic Qgv425 GLOB 2.3 g/dL 12/19/2018 Comp Metabolic Pkh009 A/G Ratio 1.8 Ratio 12/19/2018 Comp Metabolic Rbs751 Osmo 282 mOsmo 12/19/2018 Lipid Ord30 CHOL 180 mg/dL 11/25/2017 Lipid Ord30 HDL 52.0 mg/dl 11/25/2017 Lipid Ord30 TRIG 115 mg/dL 11/25/2017 Lipid Ord30 LDL 105 mg/dL 11/25/2017 Lipid Ord30 C/HDL 3.5 Ratio 11/25/2017 %Hba1C Kgl868 % HbA1c 56235- 6 5.7 % 11/25/2017 %Hba1C Ryn701 Gluc Ave 117 mg/dL 11/25/2017 Tsh Ord6 TSH (3rd IS) 1.06 uIU/mL 11/25/2017 Comp Metabolic Lum819 NA 141 mEq/L 11/25/2017 Comp Metabolic Wcx762 K 4.2 mEq/L 11/25/2017 Comp Metabolic Gtz823 CL 103 mEq/L 11/25/2017 Comp Metabolic Yge619 CO2 31.0 mEq/L 11/25/2017 Comp Metabolic Hjw869 ANION GAP 11 11/25/2017 Comp Metabolic Mev373 GLUCOSE 117 mg/dL 11/25/2017 Comp Metabolic Pin435 Creat 0.8 mg/dL 11/25/2017 Comp Metabolic Jhq972 eGFR 74 ml/min/1.73m2 11/25/2017 Comp Metabolic Rok503 BUN 18 mg/dL 11/25/2017 Comp Metabolic Erv637 B/C Ratio 22.2 Ratio 11/25/2017 Comp Metabolic Orp119 CALCIUM 9.4 mg/dL 11/25/2017 Comp Metabolic Fjd593 ALK PHOS 62 U/L 11/25/2017 Comp Metabolic Nti001 AST(SGOT) 21 U/L 11/25/2017 Comp Metabolic Ndy469 ALT(SGPT) 18 U/L 11/25/2017 Comp Metabolic Upo821 BILI T 0.4 mg/dL 11/25/2017 Comp Metabolic Ocx387 ALBUMIN 4.0 g/dL 11/25/2017 Comp Metabolic Iaw644 TPRO 6.1 g/dL 11/25/2017 Comp Metabolic Tek164 GLOB 2.1 g/dL 11/25/2017 Comp Metabolic Hdg708 A/G Ratio 1.9 Ratio 11/25/2017 Comp Metabolic Eai814 Osmo 284 mOsmo 11/25/2017 Cbc With Differential [...] 31.1 pg 11/25/2017 Cbc With Differential Ord2 Nash% 11.2 % 11/25/2017 Cbc With Differential Ord2 [...] 2.03 K/ul 11/25/2017 Cbc With Differential Ord2 Nash ABS# 0.6 K/ul 11/25/2017 Cbc With Differential [...] 31.8 pg 05/11/2016 Cbc With Differential Ord2 Nash% 9.5 % 05/11/2016 Cbc With Differential Ord2 [...] 1.76 K/ul 05/11/2016 Cbc With Differential Ord2 Nash ABS# 0.4 K/ul 05/11/2016 Cbc With Differential Ord2 Eos ABS# 0.1 K/ul 05/11/2016 Cbc With Differential Ord2 Baso ABS# 0.0 K/ul 05/11/2016 Comp Metabolic Zpl458 NA 139 mEq/L 05/11/2016 Comp Metabolic Wns801 K 4.6 mEq/L 05/11/2016 Comp Metabolic Vqq876 CL 104 mEq/L 05/11/2016 Comp Metabolic Pil594 CO2 30.0 mEq/L 05/11/2016 Comp Metabolic Liz580 ANION GAP 10 05/11/2016 Comp Metabolic Ipq973 GLUCOSE 113 mg/dL 05/11/2016 Comp Metabolic Nvi245 Creat 0.8 mg/dL 05/11/2016 Comp Metabolic Ksp230 eGFR 74 ml/min/1.73m2 05/11/2016 Comp Metabolic Bet169 BUN 16 mg/dL 05/11/2016 Comp Metabolic Orj137 B/C Ratio 19.8 Ratio 05/11/2016 Comp Metabolic Jee802 CALCIUM 10.1 mg/dL 05/11/2016 Comp Metabolic Ucp290 ALK PHOS 44 U/L 05/11/2016 Comp Metabolic Bhy548 AST(SGOT) 20 U/L 05/11/2016 Comp Metabolic Ynw640 ALT(SGPT) 17 U/L 05/11/2016 Comp Metabolic Fil732 BILI T 0.4 mg/dL 05/11/2016 Comp Metabolic Ase724 ALBUMIN 4.1 g/dL 05/11/2016 Comp Metabolic Ocx971 TPRO 6.5 g/dL 05/11/2016 Comp Metabolic Mnz612 GLOB 2.4 g/dL 05/11/2016 Comp Metabolic Wnt639 A/G Ratio 1.8 Ratio 05/11/2016 Comp Metabolic Zem671 Osmo 280 mOsmo 05/11/2016 Tsh Ord6 hTSH II 0.96 uIU/mL 05/11/2016 Lipid Ord30 CHOL 283 mg/dL 05/11/2016 Lipid Ord30 HDL 53.0 mg/dl 05/11/2016 Lipid Ord30 TRIG 144 mg/dL 05/11/2016 Lipid Ord30 LDL 201 mg/dL 05/11/2016 Lipid Ord30 C/HDL 5.3 Ratio 05/11/2016 C-Reactive Protein Qnt Crqnt CRP 0.5 mg/dl 12/18/2015 Vitamin D 25 Oh Tsy4699 VITAMIN D, 25 HYDROXY 84.50 ng/mL 12/18/2015 Comp Metabolic Njf295 NA 139 mEq/L 12/18/2015 Comp Metabolic Edb883 K 3.8 mEq/L 12/18/2015 Comp Metabolic Hol573 CL 103 mEq/L 12/18/2015 Comp Metabolic Qqs755 CO2 31.0 mEq/L 12/18/2015 Comp Metabolic Ojh396 ANION GAP 9 12/18/2015 Comp Metabolic Zuc870 GLUCOSE 107 mg/dL 12/18/2015 Comp Metabolic Yot692 Creat 0.8 mg/dL 12/18/2015 Comp Metabolic Utm090 eGFR 80 ml/min/1.73m2 12/18/2015 Comp Metabolic Gbt066 BUN 19 mg/dL 12/18/2015 Comp Metabolic Cgg458 B/C Ratio 25.0 Ratio 12/18/2015 Comp Metabolic Jgf024 CALCIUM 9.1 mg/dL 12/18/2015 Comp Metabolic Rex325 ALK PHOS 42 U/L 12/18/2015 Comp Metabolic Npe329 AST(SGOT) 17 U/L 12/18/2015 Comp Metabolic Kfq144 ALT(SGPT) 18 U/L 12/18/2015 Comp Metabolic Kop712 BILI T 0.3 mg/dL 12/18/2015 Comp Metabolic Frh490 ALBUMIN 3.8 g/dL 12/18/2015 Comp Metabolic Yas322 TPRO 5.9 g/dL 12/18/2015 Comp Metabolic Orc705 GLOB 2.1 g/dL 12/18/2015 Comp Metabolic Gjc272 A/G Ratio 1.8 Ratio 12/18/2015 Comp Metabolic Aqv549 Osmo 280 mOsmo 12/18/2015 Sed Rate Ord21 [...] 32.0 pg 12/18/2015 Cbc With Differential Ord2 Nash% 9.3 % 12/18/2015 Cbc With Differential Ord2 [...] 1.45 K/ul 12/18/2015 Cbc With Differential Ord2 Nash ABS# 0.5 K/ul 12/18/2015 Cbc With Differential [...] 31.6 pg 09/02/2015 Cbc With Differential Ord2 Nash% 8.8 % 09/02/2015 Cbc With Differential Ord2 [...] 1.53 K/ul 09/02/2015 Cbc With Differential Ord2 Nash ABS# 0.5 K/ul 09/02/2015 Cbc With Differential Ord2 Eos ABS# 0.1 K/ul 09/02/2015 Cbc With Differential Ord2 Baso ABS# 0.0 K/ul 09/02/2015 Cbc With Differential Ord2 New Analyzer Notice Please note new ref ranges starting 08-14-2015 due to implemntation of new five part differential hematolgy analyzer. 09/02/2015 Tsh Ord6 hTSH II 1.41 uIU/mL 09/02/2015 Comp Metabolic Hgk023 NA 136 mEq/L 09/02/2015 Comp Metabolic Yqb070 K 4.5 mEq/L 09/02/2015 Comp Metabolic Lpf947 CL 103 mEq/L 09/02/2015 Comp Metabolic Bjj543 CO2 27.0 mEq/L 09/02/2015 Comp Metabolic Aok622 ANION GAP 11 09/02/2015 Comp Metabolic Njp316 GLUCOSE 109 mg/dL 09/02/2015 Comp Metabolic Kjq807 Creat 1.0 mg/dL 09/02/2015 Comp Metabolic Sre224 eGFR 62 ml/min/1.73m2 09/02/2015 Comp Metabolic Qts595 BUN 21 mg/dL 09/02/2015 Comp Metabolic Qvf387 B/C Ratio 22.1 Ratio 09/02/2015 Comp Metabolic Mzj992 CALCIUM 9.3 mg/dL 09/02/2015 Comp Metabolic Hiu474 ALK PHOS 37 U/L 09/02/2015 Comp Metabolic Rft116 AST(SGOT) 19 U/L 09/02/2015 Comp Metabolic Eky130 ALT(SGPT) 16 U/L 09/02/2015 Comp Metabolic Jop586 BILI T 0.4 mg/dL 09/02/2015 Comp Metabolic Qiv564 ALBUMIN 4.1 g/dL 09/02/2015 Comp Metabolic Qzx121 TPRO 6.3 g/dL 09/02/2015 Comp Metabolic Bmq943 GLOB 2.2 g/dL 09/02/2015 Comp Metabolic Ehg834 A/G Ratio 1.8 Ratio 09/02/2015 Comp Metabolic Sfg954 Osmo 276 mOsmo 09/02/2015 A1C HPLC [id number] A1C HPLC 98292-7 5.6 % 07/23/2014 VIT D TOTL [id number] VIT D TOTL 52 NG/ML 07/20/2013 GFR CALC 9994772 GFR AA >60 ML/MIN 07/20/2013 GFR CALC 9910986 GFR NON-AA >60 ML/MIN 07/20/2013 CBC 0001474 WBC 5.9 10e9/L 07/20/2013 CBC [id number] RBC 4.79 10e12/L 07/20/2013 CBC [id number] HGB 15.5 g/dL 07/20/2013 CBC [id number] HCT DET 46.1 % 07/20/2013 CBC [id number] MCV 96.2 fL 07/20/2013 CBC [id number] MCH 32.4 pg 07/20/2013 CBC 1170211 MCHC 33.6 g/dL 07/20/2013 CBC [id number] PLT 286 10e9/L 07/20/2013 CBC [id number] MPV 10.8 fL 07/20/2013 CBC [id number] ERINN % 66.1 % 07/20/2013 CBC 3413719 LY % 24.3 % 07/20/2013 CBC [id number] MON % 8.1 % 07/20/2013 CBC [id number] EOS % 1.2 % 07/20/2013 CBC [id number] BASO % 0.3 % 07/20/2013 CBC 5604835 RDW 12.7 % 07/20/2013 CBC [id number] ABS ERINN 3.90 10e9/L 07/20/2013 CBC [id number] ABS LYMPH 1.43 10e9/L 07/20/2013 CBC 7265942 ABS MONO 0.48 10e9/L 07/20/2013 CBC [id number] ABS EOS 0.07 10e9/L 07/20/2013 CBC [id number] ABS BASO 0.02 10e9/L 07/20/2013 CBC [id number] RDW-SD 44.1 fL 07/20/2013 A1C HPLC 2007994 A1C HPLC 47153-6 5.9 % 07/20/2013 LIPID GRP HDL TEST 54 MG/DL 07/20/2013 LIPID GRP TRIG 98 MG/DL 07/20/2013 LIPID GRP TEST LDL 95 MG/DL 07/20/2013 LIPID GRP CHOL 169 MG/DL 07/20/2013 LIPID GRP RCHOL/HDL 3.13 RATIO 07/20/2013 TSH 6162326 TSH 1.032 uIU/ML 07/20/2013 CHEM 14 0987625 AST 18 U/L 07/20/2013 CHEM 14 5428908 ALT 13 IU/L 07/20/2013 CHEM 14 0218436 BUN 19 MG/DL 07/20/2013 CHEM 14 4188068 ALBUMIN 4.5 GM/DL 07/20/2013 CHEM 14 8772731 CHLORIDE 105 MMOL/L 07/20/2013 CHEM 14 1485341 BILI TOT 0.5 MG/DL 07/20/2013 CHEM 14 7676013 ALK PHOS 40 U/L 07/20/2013 CHEM 14 8917305 SODIUM 137 MMOL/L 07/20/2013 CHEM 14 1713712 CREATININE 0.76 MG/DL 07/20/2013 CHEM 14 3798723 CALCIUM 10.0 MG/DL 07/20/2013 CHEM 14 7437966 POTASSIUM 4.6 MMOL/L 07/20/2013 CHEM 14 6734914 PROT TOT 6.5 GM/DL 07/20/2013 CHEM 14 0945316 GLUCOSE 118 MG/DL 07/20/2013 CHEM 14 9029946 BICARB 26 MMOL/L 07/20/2013 CHEM 14 9272637 ANION GAP 6 MEQ/L 07/20/2013 VIT B 12 0985474 VIT B 12 492 PG/ML 07/20/2013 Review [...] SUBSEQ VISIT CPT- 4: G0439 12/03/2017 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-[address]: 449817475 CPT-4: G0436 09/08/2016 ADMIN INFLUENZA VIRUS VAC CPT-4: G0008 05/11/2016 PNEUMOCOCCAL VACC 13 SAULO IM Formatting Model/CDA Sections, Assigned to/Rafia Cuadra SNOMED CT: 70608384 CPT-4: 72398Yrvzgdg 05/11/2016 ADMIN PNEUMOCOCCAL VACCINE SNOMED CT: 71767821 CPT-4: G0009 05/11/2016 FLU VACC 4 SAULO 3 YRS PLUS IM Formatting Model/CDA Sections, Assigned to/Rafia Cuadra SNOMED CT: 70529783 CPT-4: 21550Rouwrrd 05/11/2016 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-[address]: 053785988 CPT-4: G0436 02/10/2016 TRIAMCINOLONE ACET INJ NOS CPT-4: J3301 12/16/2015 DRAIN/INJECT JOINT/BURSA CPT-4: 58223 12/16/2015 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-[address]: 978059999 CPT-4: G0436 12/09/2015 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-[address]: 052750020 CPT-4: G0436 10/28/2015 THER/PROPH/DIAG INJ SC/IM CPT-4: 84271 11/12/2014 TRIAMCINOLONE ACET INJ NOS CPT-4: J3301 11/12/2014 ROCEPHIN, PER 250 MG CPT- 4: J0696 11/12/2014 ROUTINE VENIPUNCTURE CPT- 4: 71202 07/23/2014 URINALYSIS NONAUTO W/O SCOPE CPT-4: 39967 03/21/2014 ROUTINE VENIPUNCTURE CPT- 4: 27596 07/20/2013 PRESCRIP TRANSMIT VIA ERX SY CPT-4: G8553 07/20/2013 PRESCRIP TRANSMIT VIA ERX SY CPT-4: G8553 06/22/2013 PARTIAL REMOVAL OF LUNG CPT-4: 82291 Unknown Vital Signs Date Vital 12/19/2018 Blood Pressure 1: 148/80 Code: 8480-6 BMI: 30.1 Code: 30208-9 Heart Rate 1: 70 bpm Height: 5'5" SpO2: 98% Weight: 181 lbs 09/19/2018 Blood Pressure 1: 140/70 Code: 8480-6 BMI: 31.6 Code: 70189-2 Heart Rate 1: 72 bpm Height: 5'5" SpO2: 96% Weight: 190 lbs 06/16/2018 Blood Pressure 1: 146/84 Code: 8480-6 BMI: 30.6 Code: 95806-1 Heart Rate 1: 68 bpm Height: 5'5" SpO2: 99% Weight: 184 lbs 03/25/2018 Blood Pressure 1: 144/80 Code: 8480-6 BMI: 30.0 Code: 98001-8 Heart Rate 1: 65 bpm Height: 5'5" SpO2: 98% Weight: 180 lbs 12/03/2017 Blood Pressure 1: 142/86 Code: 8480-6 BMI: 29.5 Code: 16884-6 Heart Rate 1: 74 bpm Height: 5'5" SpO2: 93% Weight: 177 lbs 11/25/2017 Blood Pressure 1: 142/84 Code: 8480-6 BMI: 29.5 Code: 55852-5 Heart Rate 1: 69 bpm Height: 5'5" SpO2: 99% Weight: 177 lbs 07/09/2017 Blood Pressure 1: 142/68 Code: 8480-6 BMI: 28.3 Code: 81100-0 Heart Rate 1: 48 bpm Height: 5'5" SpO2: 97% Weight: 170 lbs 04/29/2017 Blood Pressure 1: 148/86 Code: 8480-6 BMI: 28.6 Code: 97508-2 Heart Rate 1: 71 bpm Height: 5'5" SpO2: 95% Weight: 172 lbs 01/07/2017 Blood Pressure 1: 140/70 Code: 8480-6 BMI: 28.8 Code: 42702-6 Heart Rate 1: 68 bpm Height: 5'5" SpO2: 96% Weight: 173 lbs 09/08/2016 Blood Pressure 1: 134/70 Code: 8480-6 BMI: 29.1 Code: 04888-0 Heart Rate 1: 68 bpm Height: 5'5" SpO2: 99% Weight: 175 lbs 05/11/2016 Blood Pressure 1: 138/88 Code: 8480-6 BMI: 29.2 Code: 20076-0 Heart Rate 1: 67 bpm Height: 5'6" SpO2: 95% Weight: 178 lbs 02/10/2016 Blood Pressure 1: 148/82 Code: 8480-6 BMI: 28.8 Code: 25500-5 Heart Rate 1: 63 bpm Height: 5'6" SpO2: 97% Weight: 176 lbs 12/18/2015 Blood Pressure 1: 130/78 Code: 8480-6 BMI: 28.8 Code: 42839-1 Heart Rate 1: 66 bpm Height: 5'6" SpO2: 98% Weight: 176 lbs 12/16/2015 Blood Pressure 1: 162/100 Code: 8480-6 BMI: 28.8 Code: 98874-6 Heart Rate 1: 65 bpm Height: 5'6" SpO2: 98% Weight: 176 lbs 12/09/2015 Blood Pressure 1: 142/70 Code: 8480-6 BMI: 28.4 Code: 84740-1 Heart Rate 1: 65 bpm Height: 5'6" SpO2: 96% Weight: 173 lbs 10/28/2015 Blood Pressure 1: 160/82 Code: 8480-6 Blood Pressure 1: 140/86 Code: 8480-6 BMI: 28.5 Code: 23653-3 Heart Rate 1: 60 bpm Height: 5'6" SpO2: 96% Weight: 174 lbs 08/26/2015 Blood Pressure 1: 158/80 Code: 8480-6 Blood Pressure 1: 148/88 Code: 8480-6 BMI: 28.0 Code: 29232-4 Heart Rate 1: 68 bpm Height: 5'6" SpO2: 98% Weight: 171 lbs 02/12/2015 Blood Pressure 1: 136/74 Code: 8480-6 BMI: 25.9 Code: 85274-6 Heart Rate 1: 61 bpm Height: 5'6" SpO2: 97% Weight: 158 lbs 11/12/2014 Blood Pressure 1: 140/82 Code: 8480-6 BMI: 25.9 Code: 36291-4 Heart Rate 1: 64 bpm Height: 5'6" SpO2: 97% Weight: 158 lbs 07/23/2014 Blood Pressure 1: 138/88 Code: 8480-6 BMI: 25.6 Code: 92556-0 Heart Rate 1: 57 bpm Height: 5'6" SpO2: 95% Weight: 156 lbs 03/21/2014 Blood Pressure 1: 124/64 Code: 8480-6 Heart Rate 1: 64 bpm Weight: 147 lbs 01/25/2014 Blood Pressure 1: 130/70 Code: 8480-6 BMI: 24.4 Code: 27722-7 Height: 5'6" Weight: 149 lbs 10/23/2013 Blood Pressure 1: 152/82 Code: 8480-6 BMI: 25.7 Code: 49556-4 Heart Rate 1: 60 bpm Height: 5'6" Weight: 157 lbs 08/21/2013 Blood Pressure 1: 142/90 Code: 8480-6 BMI: 25.9 Code: 67672-2 Heart Rate 1: 56 bpm Height: 5'6" Weight: 158 lbs 07/20/2013 Blood Pressure 1: 164/80 Code: 8480-6 BMI: 26.2 Code: 77169-3 Heart Rate 1: 60 bpm Height: 5'6" SpO2: 98% Weight: 160 lbs 06/22/2013 Blood Pressure 1: 140/84 Code: 8480-6 BMI: 28.2 Code: 52460-3 Heart Rate 1: 60 bpm Height: 5'6" [...] data Encounters Encounter Performer Location Codes Date ([id number]) 28719 EST. PATIENT, LEVEL IV Diagnosis: Essential (primary) hypertension[ICD10: I10] Diagnosis: Impaired fasting glucose[ICD10: R73.01] Diagnosis: Mixed hyperlipidemia[ICD10: E78.2] [facility] CPT- 4: 69387 12/19/2018 ([id number]) 66459 EST. PATIENT, LEVEL IV Diagnosis: Essential (primary) hypertension[ICD10: I10] Diagnosis: Peripheral vascular disease, unspecified[ICD10: I73.9] Diagnosis: Rash and other nonspecific skin eruption[ICD10: R21] Diagnosis: Impaired fasting glucose[ICD10: R73.01] [facility] CPT-4: 59826 09/19/2018 ([id number]) 65250 EST. PATIENT, LEVEL IV Diagnosis: Malignant neoplasm of upper lobe, left bronchus or lung[ICD10: C34.12] Diagnosis: Solitary pulmonary nodule[ICD10: R91.1] Diagnosis: Essential (primary) hypertension[ICD10: I10] Diagnosis: Low back pain[ICD10: M54.5] Diagnosis: Tobacco use[ICD10: Z72.0] Marily Gonzalez MD, [facility] CPT-4: 93734 06/16/2018 ([id number]) 10801 EST. PATIENT, LEVEL IV Diagnosis: Essential (primary) hypertension[ICD10: I10] Diagnosis: Major depressive disorder, recurrent, moderate[ICD10: F33.1] Diagnosis: Low back pain[ICD10: M54.5] Diagnosis: Rash and other nonspecific skin eruption[ICD10: R21] Marily Gonzalez MD, [facility] CPT-4: 98514 03/25/2018 ([id number]) 78490 EST. PATIENT, LEVEL IV Diagnosis: Essential (primary) hypertension[ICD10: I10] Diagnosis: Mixed hyperlipidemia[ICD10: E78.2] Diagnosis: Malignant neoplasm of upper lobe, left bronchus or lung[ICD10: C34.12] Diagnosis: Impaired fasting glucose[ICD10: R73.01] Diagnosis: Cervicalgia[ICD10: M54.2] Diagnosis: Low back pain[ICD10: M54.5] Marily Gonzalez MD, [facility] CPT-4: 45785 11/25/2017 ([id number]) 39755 EST. PATIENT, LEVEL III Diagnosis: Essential (primary) hypertension[ICD10: I10] Marily Gonzalez MD, [facility] CPT-4: 86120 07/09/2017 ([id number]) 15520 EST. PATIENT, LEVEL III Diagnosis: Gas pain[ICD10: R14.1] Diagnosis: Rash and other nonspecific skin eruption[ICD10: R21] Marily Gonzalez MD, [facility] CPT-4: 26795 04/29/2017 ([id number]) 89627 EST. PATIENT, LEVEL III Diagnosis: Essential (primary) hypertension[ICD10: I10] Diagnosis: Malignant neoplasm of upper lobe, left bronchus or lung[ICD10: C34.12] Diagnosis: Chronic obstructive pulmonary disease, unspecified[ICD10: J44.9] Marily Gonzalez MD, [facility] CPT-4: 33861 01/07/2017 ([id number]) 46165 EST. PATIENT, LEVEL IV Diagnosis: Essential (primary) hypertension[ICD10: I10] Diagnosis: Mixed hyperlipidemia[ICD10: E78.2] Diagnosis: Tobacco use[ICD10: Z72.0] Diagnosis: Malignant neoplasm of upper lobe, left bronchus or lung[ICD10: C34.12] Marily Gonzalez MD, [facility] CPT-4: 87822 09/08/2016 ([id number]) 99552 EST. PATIENT, LEVEL IV Diagnosis: Essential (primary) hypertension[ICD10: I10] Diagnosis: Mixed hyperlipidemia[ICD10: E78.2] Diagnosis: Generalized anxiety disorder[ICD10: F41.1] Diagnosis: Other specified disorders of bone density and structure, multiple sites[ICD10: M85.89] Marily Gonzalez MD, [facility] CPT-4: 59933 05/11/2016 ([id number]) 30090 EST. PATIENT, LEVEL IV Diagnosis: Essential (primary) hypertension[ICD10: I10] Diagnosis: Generalized anxiety disorder[ICD10: F41.1] Diagnosis: Tobacco use[ICD10: Z72.0] Marily Gonzalez MD, [facility] CPT-4: 36730 02/10/2016 53292 EST. PATIENT, LEVEL IV Diagnosis: Myalgia[ICD10: M79.1] Diagnosis: Low back pain[ICD10: M54.5] Joy Gonzalez MD, [facility] CPT-4: 16582 12/18/2015 87318 EST. PATIENT, LEVEL IV Diagnosis: Low back pain[ICD10: M54.5] Diagnosis: Pain in right hip[ICD10: M25.551] Joy Gonzalez MD, [facility] CPT-4: 69233 12/16/2015 ([id number]) 24082 EST. PATIENT, LEVEL IV Diagnosis: Low back pain[ICD10: M54.5] Diagnosis: Malignant neoplasm of upper lobe, left bronchus or lung[ICD10: C34.12] Diagnosis: Tobacco use[ICD10: Z72.0] Diagnosis: Essential (primary) hypertension[ICD10: I10] Diagnosis: Generalized anxiety disorder[ICD10: F41.1] Marily Gonzalez MD, [facility] CPT-4: 26195 12/09/2015 ([id number]) 38009 EST. PATIENT, LEVEL IV Diagnosis: Essential (primary) hypertension[ICD10: I10] Diagnosis: Tobacco use[ICD10: Z72.0] Diagnosis: Solitary pulmonary nodule[ICD10: R91.1] Marily Gonzalez MD, [facility] CPT-4: 58827 10/28/2015 ([id number]) 39713 EST. PATIENT, LEVEL IV Diagnosis: Essential (primary) hypertension[ICD10: I10] Diagnosis: Bilateral primary osteoarthritis of hip[ICD10: M16.0] Diagnosis: Solitary pulmonary nodule[ICD10: R91.1] Marily Gonzalez MD, [facility] CPT-4: 53160 08/26/2015 ([id number]) 63113 EST. PATIENT, LEVEL IV Diagnosis: ESSENTIAL HYPERTENSION[ICD9: 401.9] Diagnosis: Pulmonary nodule[ICD9: 793.11] Teresa Gonzalez MD, [facility] CPT-4: 65821 02/12/2015 ([id number]) 79354 EST. PATIENT, LEVEL III Diagnosis: ACUTE BRONCHITIS[ICD9: 466.0] Diagnosis: ALLERGIC RHINITIS[ICD9: 477.9] Teresa Gonzalez MD, [facility] CPT-4: 32859 11/12/2014 ([id number]) 05861 EST. PATIENT, LEVEL IV Diagnosis: ESOPHAGEAL REFLUX[ICD9: 530.81] Diagnosis: ESSENTIAL HYPERTENSION[ICD9: 401.9] Diagnosis: Elevated blood sugar[ICD9: 790.29] Marily Gonzalez MD, [facility] CPT- 4: 71249 07/23/2014 ([id number]) 29202 EST. PATIENT, LEVEL III Diagnosis: Vaginal yeast infection[ICD9: 112.1] Diagnosis: Vaginal burning[ICD9: 625.8] Diagnosis: History of UTI[ICD9: V13.02] Diagnosis: Dysuria[ICD9: 788.1] Marily Gonzalez MD, [facility] CPT-4: 52837 03/21/2014 ([id number] 66501 EST. PATIENT, LEVEL III Diagnosis: ESSENTIAL HYPERTENSION[ICD9: 401.9] Marily Gonzalez MD, [facility] CPT-4: 63398 01/25/2014 ([id number]) 22769 EST. PATIENT, LEVEL III Diagnosis: ESSENTIAL HYPERTENSION[SNOMED: 94220605] Diagnosis: ESOPHAGEAL REFLUX[ICD9: 530.81] Teresa Gonzalez MD, [facility] CPT-4: 87144 10/23/2013 ([id number]) 24949 EST. PATIENT, LEVEL IV Diagnosis: ESOPHAGEAL REFLUX[ICD9: 530.81] Diagnosis: ESSENTIAL HYPERTENSION[SNOMED: 58081671] Diagnosis: Rash[ICD9: 782.1] Marily Gonzalez MD, [facility] CPT-4: 44569 08/21/2013 ([id number]) 31598 EST. PATIENT, LEVEL IV Diagnosis: Muscle ache of extremity[ICD9: 729.1] Diagnosis: Tingling in extremities[ICD9: 782.0] Diagnosis: ESSENTIAL HYPERTENSION[SNOMED: 78693156] Diagnosis: GERD (gastroesophageal reflux disease)[ICD9: 530.81] Diagnosis: Elevated blood sugar[ICD9: 790.29] Marily Gonzalez MD, [facility] CPT- 4: 98372 07/20/2013 OFFICE VISIT, NEW - LEVEL 3 Diagnosis: ESSENTIAL HYPERTENSION[SNOMED: 11024651] Diagnosis: Tobacco use[ICD9: 305.1] Diagnosis: Depression[ICD9: 311] Marily Gonzalez MD, [facility] CPT-4: 00761 06/22/2013 ([id number]) BEHAV CHNG SMOKING 3-10 MIN Diagnosis: [ICD9: ] Marily Gonzalez MD, [facility] CPT-4: 20063 06/22/2013 Plan of Care Planned Activity Notes [...] Pending 12/19/2018 Care Plan: %Hba1C LOINC : 91129-4 Pending 12/19/2018 Care Plan: Tsh Pending 12/19/2018 [...] -check TA 09/19/2018 Appointment: Marily Valerio WPtel: [facility]4 [phone] (30 min) Complex 09/19/2018 Patient Education: Patient Medication Summary Completed 09/19/2018 Appointment: Marily Valerio WPtel: [facility]1 [phone] (15 min) Moderate 09/16/2018 Patient Education: Patient Medication Summary Completed 06/27/2018 Visit Plan: Lung nodule -right lung -on surveillance -patient also has history of left lung cancer with lobectomy -does not want to go to for oncology -wants to see Dr Mata at [facility] in [place] -will send referral Lumbar radiculopathy -rx for gabapentin provided and instructed on use - recommend patient return to Dr Herrera to discussed epidural injections HTN-controlled- no changes Tobacco use-patient continues to smoke and is not interested in quitting -smoking cessation encouraged 06/16/2018 Appointment: Marily Valerio WPtel: [facility]8 [phone] (30 min) Complex 06/16/2018 Patient Education: Patient [...] start PT 03/25/2018 Appointment: Marily Valerio WPtel: [address] [place], [place] [phone] (15 min) Moderate 03/25/2018 Patient Education: Patient [...] vs PT 11/25/2017 Appointment: Marily Valerio WPtel: [facility]8 [address] (15 min) Moderate 11/25/2017 Patient Education: Patient Medication Summary Completed 11/25/2017 Care Plan: X-RAY EXAM L-S SPINE 2/3 VWS LOINC : 47778-3 Pending 11/25/2017 Care Plan: X-RAY EXAM NECK SPINE 2-3 VW LOINC : 83496-9 Pending 11/25/2017 Appointment: Marily Valerio WPtel: [facility]2 [phone] (15 min) Moderate 11/02/2017 Visit Plan: Hypertension [...] Ryan 07/09/2017 Appointment: Marily Valerio WPtel: [phone] [phone] (15 min) Moderate 07/09/2017 Patient Education: Patient Medication Summary Completed 07/09/2017 Patient Education: Smoking and Tobacco Addiction Completed 07/09/2017 Appointment: Marily Valerio WPtel: [address] [place] [address] (15 min) Moderate 07/08/2017 Visit Plan: Gas and bloating-cut out dairy x 2 weeks-increase gas x to TID-call if symptoms uncontrolled Rash-rx for nystatin powder provided-keep clean/dry-call if does not resolve or if any worse 04/29/2017 Appointment: Marily Valerio WPtel: [address] [place] [address] (15 min) Moderate 04/29/2017 Patient Education: Patient [...] nicotine patches 01/07/2017 Appointment: Marily Valerio WPtel: [address] [place] [address] (15 min) Moderate 01/07/2017 Patient Education: Patient Medication Summary Completed 01/07/2017 Patient Education: Smoking and Tobacco Addiction Completed 01/07/2017 Patient Education: Hypertension Completed 01/07/2017 Appointment: Marily Valerio WPtel: [address] [place] [address] (30 min) Complex 01/05/2017 Visit Plan: Hypertension [...] Ryan in 09/08/2016 Appointment: Marily Valerio WPtel: [facility]9 [phone] (15 min) Moderate 09/08/2016 Patient Education: Patient [...] bone density 05/11/2016 Appointment: Marily Valerio WPtel[phone] (15 min) Moderate 05/11/2016 Patient Education: Patient [...] Care Plan: [facility] Cancelled 01/17/2016 Visit Plan: Continued Low back [...] they worsen. 12/18/2015 Appointment: Marily Valerio WPtel: [address] [place], [place] [phone] (30 min) [facility] 12/18/2015 Patient Education: Patient Medication Summary Completed [...] worsen. 12/16/2015 Appointment: Mark Joy [facility]Ptel[facility] [phone] [facility] [place] (15 min) Moderate 12/16/2015 Patient Education: [...] assist cessation. Anxiety-not well controlled-increase wellbutrin 12/09/2015 Visit Plan: Hypertension - well controlled [...] to use medication to assist cessation. 12/09/2015 Patient Education: Patient Medication Summary Completed [...] to have left upper lobe removed at -[facility] this week to schedule Tobacco use-no cigarettes [...] blood pressure readings at home. Arthritis of elbb-ytul-vhppb mobic-monitor symptoms-check labs Left lung nodule- most recent scan shows slight increase in size and needs further evaluation- [facility]ment: [facility]Ptel[facility] [phone] [phone] [place] (30 min) Complex 08/26/2015 Patient Education: Patient Medication Summary Completed 08/26/2015 Patient Education: Hypertension Completed 08/26/2015 [facility]ment[phone] [place] (15 min) Moderate 08/15/2015 Appointment: [phone] [facility] [place] (15 min) Moderate 08/15/2015 Visit Plan: [...] 02/12/2015 App[facility]ment: [phone] [facility] [facility] 02/12/2015 Patient Education: Patient Medication [...] bloating-use dicyclomine prn Elevated blood sugar-check Hgb V7O-kle back on sweets/carbs 07/23/2014 Appointment: Follow up [...] at home. 01/25/2014 Appointment: [facility] Valerio WPtel[facility] [phone] [phone] Follow up 01/25/2014 Patient Education: Patient Medication [...] Dr. Mckeon. 10/23/2013 Appointment: Teresa Gonzalez WPtel: [phone] [facility] Follow up 10/23/2013 Patient Education: Patient Medication [...] any worse. 08/21/2013 Appointment: [facility] Valerio WPtel[facility] [phone] [phone] Follow up 08/21/2013 Patient Education: Patient Medication [...] with Dr Combs as scheduled Tingling of clyucolixza-vozprbxp-lyqhr labs including vitamin b12 and vitamin d Elevated blood sugar-check hgb a1c 07/20/2013 Appointment: Marily Valerio WPtel: [facility]5 [phone] Follow up 07/20/2013 Patient Education: Patient Medication [...] quit date. 06/22/2013 Appointment: Marily Valerio WPtel: [phone] [place] New Patient 06/22/2013 Patient Education: Patient Medication Summary Completed 06/22/2013 Patient Education: Hypertension Completed 06/22/2013 Patient Education: Smoking and Tobacco Addiction Completed 06/22/2013 Instructions Comment . Hypertension - well controlled - continue [...] ready to use medication to assist cessation. CHECK LABS TODAY . Hypertension - well [...] cancer-post radiation-will see Dr Ryan in October Nexium SAMPLES-start when diexilant is gone. After [...] do not resolve or if any worse. BONE DENSITY-[facility] MON-THURS FLU AND PREVNAR 13 . Hypertension [...] treatment at this time Osteopenia-check bone density . Hypertension - well controlled - continue [...] Low back pain-spinal stenosis-patient to start PT . Bronchitis - acute case of bronchitis identified. Pt has been given antibiotics, breathing treatments as appropriate, and pt has been instructed to call if symptoms are not improved, or if symptoms acutely worsen. I GAVE YOU SAMPLES OF DEXILANT 60MG-START [...] with Dr Combs as scheduled Tingling of aknkhevggtq-zzggkbmb-yjcus labs including vitamin b12 and vitamin d Elevated blood sugar-check hgb a1c xray neck and low back then MRI [...] to pain management for injections vs PT . Hypertension - well controlled - continue [...] to quit smoking-going to start nicotine patches Stop the Statin today, start Co Q [...] not improve or if they worsen. . Joint Injection - Right SI joint [...] do not improve or if they worsen. fasting labs at next appt schedule TA [...] sugars-check fasting labs Intermittent claudication -check TA Dr Mata at [facility] ( or wednesday) gabapentin 100mg at bedtime screening mammogram make an appt with Dr Herrera to discuss epidural injections . Lung nodule -right lung -on surveillance -patient also has history of left lung cancer with lobectomy -does not want to go to for oncology -wants to see Dr Mata at [facility] in [place] -will send referral Lumbar radiculopathy -rx for gabapentin provided and instructed on use - recommend patient return to Dr Herrera to discussed epidural injections HTN-controlled- no changes Tobacco use-patient continues to smoke and is not interested in quitting - smoking cessation encouraged . Hypertension - well controlled at home [...] her for an EGD by Dr. Mckeon. . Gas and bloating-cut out dairy x 2 weeks-increase gas x to TID-call if symptoms uncontrolled Rash-rx for nystatin powder provided-keep clean/dry-call if does not resolve or if any worse . Dysuria-vaginal burning-UA positive for blood and leukocystes today in the office-will send for culture and proceed as indicated. Diflucan sent to patient's pharmacy and instructed on use. Patient verbalized understanding of plan. START WELLBUTRIN 75MG TWICE DAILY TO HELP [...] to have left upper lobe removed at -[facility] this week to schedule Tobacco use-no cigarettes since Wednesday-start wellbutrin to aide with cessation PATIENT IS TO CHECK BLOOD PRESSURE AND [...] blood pressure readings at home. Arthritis of hscx-lxob-ltzom mobic-monitor symptoms-check labs Left lung nodule-most recent scan shows slight increase in size and needs further evaluation-managed by Dr Corea-appt is this week . Hypertension - well controlled - continue [...] bloating-use dicyclomine prn Elevated blood sugar-check Hgb N7P-ptl back on sweets/carbs . Hypertension - well [...]
--- OUTSIDE RECORDS SUMMARY | 2019-03-31 08:35 | XMS REPORT | CCD ---
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 Unknown Has never used illegal drugs 06/22/2013 Allergies, Adverse Reactions, Alerts Substance Reaction Codes Entered Date Inactivated Date Status lisinopril cough, RxNorm: 85300 06/22/2013 No Inactive Date Active SULFA (SULFONAMIDE [...] Fill Instructions dicyclomine 10 mg capsule RxNorm: 948983 1 Capsule(s) PO TID PRN TAKE ONE CAPSULE BY MOUTH THREE TIMES A DAY NEEDED 12/19/2018 12/02/2021 Active DISREGARD ORDER FOR 20MG PILLS olmesartan 40 mg tablet RxNorm: 824439 1 Tablet(s) PO daily 12/19/2018 01/17/2019 Active dicyclomine 20 mg tablet RxNorm: 097197 1 Tablet(s) PO TID PRN TAKE ONE CAPSULE BY MOUTH THREE TIMES A DAY NEEDED 12/19/2018 12/19/2018 Inactive PA approved amlodipine 10 mg tablet RxNorm: 041737 TAKE ONE TABLET BY MOUTH EVERY DAY 12/15/2018 06/12/2019 Active dicyclomine 20 mg tablet RxNorm: 975403 1 Tablet(s) PO TID PRN TAKE ONE CAPSULE BY MOUTH THREE TIMES A DAY NEEDED 10/28/2018 12/18/2018 Inactive PA approved gabapentin 300 mg capsule RxNorm: 410124 1 Capsule(s) PO BID 09/30/2018 01/27/2019 Active after 14 days of HS increase to BID gabapentin 300 mg capsule RxNorm: 469588 1 Capsule(s) PO QHS 09/30/2018 09/29/2018 Inactive then increase to BID Lyrica 50 mg capsule RxNorm: 431945 1 Capsule(s) PO BID 09/27/2018 12/25/2018 Active Lyrica 50 mg capsule RxNorm: 889853 1 Capsule(s) PO BID 09/27/2018 09/26/2018 Inactive nystatin 100,000 unit/gram topical cream RxNorm: 979922 1 Application TOP BID 09/19/2018 10/02/2018 Inactive mix with betamethasone Diovan 320 mg tablet RxNorm: 608780 1 Tablet(s) PO daily 09/19/2018 03/17/2019 Active metoprolol tartrate 100 mg tablet RxNorm: 237168 1 Tablet(s) PO BID TAKE ONE TABLET BY MOUTH TWICE A DAY 09/19/2018 06/15/2019 Active dicyclomine 20 mg tablet RxNorm: 459233 1 Tablet(s) PO TID PRN TAKE ONE CAPSULE BY MOUTH THREE TIMES A DAY NEEDED 09/19/2018 10/27/2018 Inactive betamethasone dipropionate 0.05 % topical cream RxNorm: 883268 1 Application TOP BID 09/19/2018 10/02/2018 Inactive dicyclomine 10 mg capsule RxNorm: 445707 1 Capsule(s) PO TID PRN TAKE ONE CAPSULE BY MOUTH THREE TIMES A DAY NEEDED 09/19/2018 09/18/2018 Inactive nystatin 100,000 unit/gram topical cream RxNorm: 108788 1 Application TOP BID 06/16/2018 06/29/2018 Inactive gabapentin 100 mg capsule RxNorm: 481379 1 Capsule(s) PO UD 06/16/2018 07/15/2018 Inactive 1 po q HS x 1 week then 2 po q HS x 1 week then increase to 3 q HS amlodipine 10 mg tablet RxNorm: 984727 TAKE ONE TABLET BY MOUTH EVERY DAY 05/26/2018 11/21/2018 Inactive Lipitor 10 mg tablet RxNorm: 369017 Tablet(s) TAKE ONE TABLET BY MOUTH EVERY OTHER DAY 05/25/2018 02/18/2019 Active Lexapro 20 mg tablet RxNorm: 590890 1 Tablet(s) PO QPM 03/25/2018 09/20/2018 Inactive nystatin 100,000 unit/gram topical cream RxNorm: 618256 1 Application TOP BID 03/25/2018 04/07/2018 Inactive olmesartan 40 mg tablet RxNorm: 356582 1 Tablet(s) PO daily 03/25/2018 09/18/2018 Inactive Diovan 320 mg tablet RxNorm: 894738 TAKE ONE TABLET BY MOUTH DAILY 03/18/2018 03/24/2018 Inactive Lipitor 10 mg tablet RxNorm: 812516 TAKE ONE TABLET BY MOUTH EVERY OTHER DAY 03/18/2018 12/11/2018 Inactive metoprolol tartrate 100 mg tablet RxNorm: 304989 TAKE ONE TABLET BY MOUTH TWICE A DAY 01/05/2018 09/18/2018 Inactive Diovan 320 mg tablet RxNorm: 417067 TAKE ONE TABLET BY MOUTH EVERY DAY 12/16/2017 03/17/2018 Inactive Lexapro 10 mg tablet RxNorm: 166196 1 Tablet(s) PO QPM 11/25/2017 03/24/2018 Inactive amlodipine 10 mg tablet RxNorm: 320979 TAKE ONE TABLET BY MOUTH EVERY DAY 11/15/2017 05/13/2018 Inactive Lipitor 10 mg tablet RxNorm: 189796 TAKE ONE TABLET BY MOUTH EVERY OTHER DAY 10/18/2017 03/17/2018 Inactive dicyclomine 10 mg capsule RxNorm: 313885 TAKE ONE CAPSULE BY MOUTH THREE TIMES A DAY NEEDED 08/12/2017 09/18/2018 Inactive Lipitor 10 mg tablet RxNorm: 888960 TAKE ONE TABLET BY MOUTH EVERY OTHER DAY 07/12/2017 10/17/2017 Inactive Diovan 320 mg tablet RxNorm: 276967 TAKE ONE TABLET BY MOUTH EVERY DAY 06/09/2017 12/05/2017 Inactive dicyclomine 10 mg capsule RxNorm: 648883 TAKE ONE CAPSULE BY MOUTH THREE TIMES A DAY NEEDED 05/05/2017 08/02/2017 Inactive nystatin 100,000 unit/gram topical powder RxNorm: 292052 1 Application TOP BID 04/29/2017 05/08/2017 Inactive Diovan 320 mg tablet RxNorm: 012561 TAKE ONE TABLET BY MOUTH EVERY DAY 03/10/2017 06/07/2017 Inactive dicyclomine 10 mg capsule RxNorm: 915556 TAKE ONE CAPSULE BY MOUTH THREE TIMES A DAY NEEDED 02/04/2017 05/04/2017 Inactive amlodipine 10 mg tablet RxNorm: 645127 TAKE ONE TABLET BY MOUTH EVERY DAY 02/04/2017 10/31/2017 Inactive Lipitor 10 mg tablet RxNorm: 966608 TAKE ONE TABLET BY MOUTH EVERY OTHER DAY 02/04/2017 07/11/2017 Inactive Fish Oil 1,000 mg capsule RxNorm: 1 Capsule(s) PO TID 01/07/2017 No Stop Date Active metoprolol tartrate 100 mg tablet RxNorm: 375419 1 Tablet(s) PO BID TAKE ONE TABLET BY MOUTH TWICE A DAY 01/07/2017 01/01/2018 Inactive Diovan 320 mg tablet RxNorm: 937724 TAKE ONE TABLET BY MOUTH EVERY DAY 11/05/2016 03/04/2017 Inactive Lipitor 10 mg tablet RxNorm: 274552 1 Tablet(s) PO every other day 09/08/2016 01/05/2017 Inactive dc livalo dicyclomine 10 mg capsule RxNorm: 693757 TAKE ONE CAPSULE BY MOUTH THREE TIMES A DAY NEEDED 07/30/2016 01/25/2017 Inactive Diovan 320 mg tablet RxNorm: 843955 TAKE ONE TABLET BY MOUTH EVERY DAY 06/15/2016 11/04/2016 Inactive Lipitor 10 mg tablet RxNorm: 831767 1 Tablet(s) PO every other day 05/25/2016 05/24/2016 Inactive dc livalo Lipitor 10 mg tablet RxNorm: 689751 1 Tablet(s) PO every other day 05/25/2016 09/07/2016 Inactive dc livalo Livalo 2 mg tablet RxNorm: 539429 1 Tablet(s) PO daily 05/20/2016 05/19/2016 Inactive Livalo 2 mg tablet RxNorm: 695190 1 Tablet(s) PO daily 05/20/2016 05/24/2016 Inactive Celexa 10 mg tablet RxNorm: 393976 1 Tablet(s) PO daily 02/10/2016 11/24/2017 Inactive amlodipine 10 mg tablet RxNorm: 352964 TAKE ONE TABLET BY MOUTH EVERY DAY 02/03/2016 02/02/2016 Inactive amlodipine 10 mg tablet RxNorm: 436658 TAKE ONE TABLET BY MOUTH EVERY DAY 02/03/2016 01/27/2017 Inactive amlodipine 10 mg tablet RxNorm: 676789 TAKE ONE TABLET BY MOUTH EVERY DAY 02/03/2016 04/27/2017 Inactive metoprolol tartrate 100 mg tablet RxNorm: 608077 TAKE ONE TABLET BY MOUTH TWICE A DAY 2016 01/06/2017 Inactive Diovan 320 mg tablet RxNorm: 809236 TAKE ONE TABLET BY MOUTH EVERY DAY 12/19/2015 06/14/2016 Inactive Wellbutrin XL 150 mg 24 hr tablet, extended release RxNorm: 399569 1 Tablet(s) PO daily 12/09/2015 02/09/2016 Inactive tramadol 50 mg tablet RxNorm: 739974 1-2 Tablet(s) PO Q6 PRN 12/09/2015 11/24/2017 Inactive Mobic 7.5 mg tablet RxNorm: 225629 TAKE ONE TABLET BY MOUTH DAILY 11/11/2015 11/24/2017 Inactive dicyclomine 10 mg capsule RxNorm: 171284 TAKE ONE CAPSULE BY MOUTH THREE TIMES A DAY NEEDED 11/11/2015 07/29/2016 Inactive Wellbutrin 75 mg tablet RxNorm: 102257 1 Tablet(s) PO BID 10/28/2015 12/08/2015 Inactive simvastatin 20 mg tablet RxNorm: 848054 TAKE ONE TABLET BY MOUTH EVERY DAY 09/05/2015 2016 Inactive Mobic 7.5 mg tablet RxNorm: 164269 1 Tablet(s) PO daily 08/26/2015 11/10/2015 Inactive estradiol 0.5 mg tablet RxNorm: 498626 TAKE ONE TABLET BY MOUTH EVERY DAY 06/11/2015 03/06/2016 Inactive amlodipine 10 mg tablet RxNorm: 158265 TAKE ONE TABLET BY MOUTH EVERY DAY 04/19/2015 01/13/2016 Inactive dicyclomine 10 mg capsule RxNorm: 260822 TAKE ONE CAPSULE BY MOUTH THREE TIMES A DAY NEEDED 04/19/2015 10/15/2015 Inactive simvastatin 20 mg tablet RxNorm: 452786 TAKE ONE TABLET BY MOUTH EVERY DAY 02/21/2015 08/19/2015 Inactive Diovan 320 mg tablet RxNorm: 545229 TAKE ONE TABLET BY MOUTH EVERY DAY 12/19/2014 12/18/2015 Inactive cephalexin 500 mg capsule RxNorm: 058022 1 Capsule(s) PO TID 11/13/2014 11/19/2014 Inactive prednisone 10 mg tablet RxNorm: 060891 3 Tablet(s) PO daily 11/13/2014 11/17/2014 Inactive prednisone 10 mg tablet RxNorm: 892961 3 Tablet(s) PO daily 11/12/2014 11/12/2014 Inactive Kenalog 40 mg/mL suspension for injection RxNorm: 7516136 Milliliter(s) Inj 11/12/2014 11/12/2014 Inactive cephalexin 500 mg capsule RxNorm: 675051 1 Capsule(s) PO TID 11/12/2014 11/12/2014 Inactive ceftriaxone 500 mg solution for injection RxNorm: 1703668 Inj 11/12/2014 11/12/2014 Inactive dicyclomine 10 mg capsule RxNorm: 065688 TAKE ONE CAPSULE BY MOUTH THREE TIMES A DAY NEEDED 11/08/2014 04/18/2015 Inactive metoprolol tartrate 100 mg tablet RxNorm: 431908 TAKE ONE TABLET BY MOUTH TWICE A DAY 10/18/2014 2015 Inactive metoprolol tartrate 100 mg tablet RxNorm: 891332 1 Tablet(s) PO BID 10/18/2014 10/12/2015 Inactive simvastatin 20 mg tablet RxNorm: 721877 TAKE ONE TABLET BY MOUTH EVERY DAY 08/21/2014 02/16/2015 Inactive Diovan 320 mg tablet RxNorm: 987886 TAKE ONE TABLET BY MOUTH EVERY DAY 08/21/2014 12/18/2014 Inactive Carafate 1 gram tablet RxNorm: 471119 1 Tablet(s) PO AC & HS MIX WITH 30ML WATER 07/23/2014 11/24/2017 Inactive dissolve in water and drink as slurry dicyclomine 10 mg capsule RxNorm: 221940 1 Capsule(s) PO TID PRN 07/23/2014 10/20/2014 Inactive simvastatin 20 mg tablet RxNorm: 581220 TAKE ONE TABLET BY MOUTH EVERY DAY 06/07/2014 08/20/2014 Inactive estradiol 0.5 mg tablet RxNorm: 481567 TAKE ONE TABLET BY MOUTH EVERY DAY 05/16/2014 05/10/2015 Inactive amlodipine 10 mg tablet RxNorm: 799987 TAKE ONE TABLET BY MOUTH EVERY DAY 05/16/2014 04/18/2015 Inactive Diovan 320 mg tablet RxNorm: 602507 TAKE ONE TABLET BY MOUTH EVERY DAY 03/26/2014 08/20/2014 Inactive Diflucan 150 mg tablet RxNorm: 197086 1 Tablet(s) PO daily 03/21/2014 03/27/2014 Inactive simvastatin 20 mg tablet RxNorm: 757954 TAKE ONE TABLET BY MOUTH EVERY DAY 03/02/2014 05/30/2014 Inactive estradiol 0.5 mg tablet RxNorm: 317252 TAKE ONE TABLET BY MOUTH EVERY DAY 02/16/2014 05/15/2014 Inactive amlodipine 10 mg tablet RxNorm: 733233 TAKE ONE TABLET BY MOUTH EVERY DAY 02/16/2014 05/15/2014 Inactive pantoprazole 40 mg tablet,delayed release RxNorm: 867318 2 Tablet(s) PO daily 01/25/2014 02/23/2014 Inactive simvastatin 20 mg tablet RxNorm: 006979 Tablet(s) PO TAKE ONE TABLET BY MOUTH EVERY DAY 11/30/2013 03/01/2014 Inactive amlodipine 10 mg tablet RxNorm: 650443 Tablet(s) PO TAKE ONE TABLET BY MOUTH EVERY DAY 11/16/2013 02/15/2014 Inactive metoprolol tartrate 100 mg tablet RxNorm: 050353 1 Tablet(s) PO BID 10/23/2013 10/17/2014 Inactive Diovan 320 mg tablet RxNorm: 313136 Tablet(s) PO TAKE ONE TABLET BY MOUTH EVERY DAY 09/28/2013 03/25/2014 Inactive Carafate 1 gram tablet RxNorm: 511415 1 Tablet(s) PO TID MIX WITH 30ML WATER 09/20/2013 12/18/2013 Inactive estradiol 0.5 mg tablet RxNorm: 096711 1 Tablet(s) PO daily 08/21/2013 02/15/2014 Inactive amlodipine 10 mg tablet RxNorm: 732639 1 Tablet(s) PO daily 08/21/2013 11/15/2013 Inactive simvastatin 20 mg tablet RxNorm: 844552 1 Tablet(s) PO daily 08/21/2013 11/18/2013 Inactive Diovan 320 mg tablet RxNorm: 832364 1 Tablet(s) PO daily 08/21/2013 09/19/2013 Inactive Carafate 1 gram tablet RxNorm: 373107 1 Tablet(s) PO TID MIX WITH 30ML WATER 08/21/2013 09/19/2013 Inactive Diovan 320 mg tablet RxNorm: 973470 1 Tablet(s) PO daily 07/20/2013 08/18/2013 Inactive amlodipine 10 mg tablet RxNorm: 242533 1 Tablet(s) PO daily 07/20/2013 08/18/2013 Inactive estradiol 0.5 mg tablet RxNorm: 049618 1 Tablet(s) PO daily 07/20/2013 08/18/2013 Inactive metoprolol tartrate 100 mg tablet RxNorm: 826974 1 Tablet(s) PO BID 06/22/2013 10/22/2013 Inactive Wellbutrin XL 150 mg 24 hr tablet, extended release RxNorm: 080675 1 Tablet(s) PO daily 06/22/2013 07/19/2013 Inactive pantoprazole 40 mg tablet,delayed release RxNorm: 337710 1 Tablet(s) PO daily No Start Date Active calcium 500 mg tablet RxNorm: 2 Tablet(s) PO BID No Start Date Active glucosamine and kxkeckxiyll-arjedlcu-msjb#3 oral RxNorm: 2837 oral No Start Date Active multivitamin tablet RxNorm: 1 Tablet(s) PO daily No Start Date Active aspirin 81 mg tablet RxNorm: 062739 1 Tablet(s) PO daily No Start Date Active Probiotic oral RxNorm: oral No Start Date Active Vitamin D3 1,000 unit capsule RxNorm: 667491 1 Capsule(s) PO daily No Start Date Active Eliquis 5 mg tablet RxNorm: 2609936 1 Tablet(s) PO BID No Start Date Active simvastatin 20 mg tablet RxNorm: 091127 1 Tablet(s) PO daily No Start Date 08/20/2013 Inactive hyoscyamine 0.125 mg sublingual tablet RxNorm: 2770607 1 Tablet(s) SL TID No Start Date 07/22/2014 Inactive metoprolol tartrate 100 mg tablet RxNorm: 136841 1 Tablet(s) PO daily No Start Date 06/21/2013 Inactive amlodipine 10 mg tablet RxNorm: 612744 1 Tablet(s) PO daily No Start Date 07/19/2013 Inactive Diovan 320 mg tablet RxNorm: 673841 1 Tablet(s) PO daily No Start Date 07/19/2013 Inactive Fish Oil 1,000 mg capsule RxNorm: 1 Capsule(s) PO BID No Start Date 01/06/2017 Inactive omeprazole 20 mg tablet,delayed release RxNorm: 356809 1 Tablet(s) PO daily No Start Date 01/25/2014 Inactive estradiol 0.5 mg tablet RxNorm: 048542 1 Tablet(s) PO daily No Start Date 07/19/2013 Inactive Medication Administered Medication Codes Instructions Start Date Status Kenalog 40 mg/mL suspension for injection RxNorm: 9060426 Milliliter 11/12/2014 No longer Active ceftriaxone 500 mg solution for injection RxNorm: 2078966 11/12/2014 No longer Active Immunizations Vaccine Codes Date Status Influenza CVX: 141 05/11/2016 completed Pneumococcal (Adult) CVX: 133 05/11/2016 completed Influenza CVX: 141 08/13/2013 completed Assessments Condition Codes Effective Dates Rash and other nonspecific skin eruption ICD-10: R21 ICD-9: 782.1 09/19/2018 Essential (primary) hypertension ICD-10: I10 ICD-9: 401.1 09/19/2018 Peripheral vascular disease, unspecified ICD-10: I73.9 ICD-9: 443.9 09/19/2018 Impaired fasting glucose ICD-10: R73.01 ICD-9: 790.21 09/19/2018 Encounter for screening mammogram for malignant [...] 12/03/2017 Cervicalgia ICD-10: M54.2 ICD-9: 723.1 11/25/2017 Mixed hyperlipidemia ICD-10: E78.2 ICD-9: 272.2 11/25/2017 Gas pain ICD-10: R14.1 ICD-9: 787.3 [...] Reason For Visit Effective Dates Notes hypertension 09/19/2018 hypertension 06/16/2018 rash 03/25/2018 Annual [...] 31.5 % 12/19/2018 Cbc With Differential Ord2 MCH 31.6 pg 12/19/2018 Cbc With Differential Ord2 [place]agoner% 8.0 % 12/19/2018 Cbc With Differential Ord2 MCHC 32.7 pg 12/19/2018 Cbc With Differential Ord2 Eos% 1.3 % 12/19/2018 Cbc With Differential Ord2 PLT 317 K/ul 12/19/2018 Cbc With Differential Ord2 Baso% 0.4 % 12/19/2018 Cbc With Differential Ord2 RDW 14.9 % 12/19/2018 Cbc With Differential Ord2 Neut ABS# 4.02 K/ul 12/19/2018 Cbc With Differential Ord2 Lymph ABS# 2.16 K/ul 12/19/2018 Cbc With Differential Ord2 [place] ABS# 0.6 K/ul 12/19/2018 Cbc With Differential Ord2 Eos ABS# 0.1 K/ul 12/19/2018 Cbc With Differential Ord2 Baso ABS# 0.0 K/ul 12/19/2018 %Hba1C Jfl803 % HbA1c 90811- 6 6.2 % 12/19/2018 %Hba1C Cbg054 Gluc Ave 131 mg/dL 12/19/2018 Lipid Ord30 CHOL 180 mg/dL 11/25/2017 Lipid Ord30 HDL 52.0 mg/dl 11/25/2017 Lipid Ord30 TRIG 115 mg/dL 11/25/2017 Lipid Ord30 LDL 105 mg/dL 11/25/2017 Lipid Ord30 C/HDL 3.5 Ratio 11/25/2017 %Hba1C Lsj071 % HbA1c 95044- 6 5.7 % 11/25/2017 %Hba1C Ofr292 Gluc Ave 117 mg/dL 11/25/2017 Tsh Ord6 TSH (3rd IS) 1.06 uIU/mL 11/25/2017 Comp Metabolic Trq135 NA 141 mEq/L 11/25/2017 Comp Metabolic Ulh408 K 4.2 mEq/L 11/25/2017 Comp Metabolic Eyi343 CL 103 mEq/L 11/25/2017 Comp Metabolic Wzj531 CO2 31.0 mEq/L 11/25/2017 Comp Metabolic Ccb065 ANION GAP 11 11/25/2017 Comp Metabolic Xmj921 GLUCOSE 117 mg/dL 11/25/2017 Comp Metabolic Htl971 Creat 0.8 mg/dL 11/25/2017 Comp Metabolic Yho600 eGFR 74 ml/min/1.73m2 11/25/2017 Comp Metabolic Lze579 BUN 18 mg/dL 11/25/2017 Comp Metabolic Fyh880 B/C Ratio 22.2 Ratio 11/25/2017 Comp Metabolic Gxm280 CALCIUM 9.4 mg/dL 11/25/2017 Comp Metabolic Cky007 ALK PHOS 62 U/L 11/25/2017 Comp Metabolic Bgt721 AST(SGOT) 21 U/L 11/25/2017 Comp Metabolic Lgf011 ALT(SGPT) 18 U/L 11/25/2017 Comp Metabolic Tao525 BILI T 0.4 mg/dL 11/25/2017 Comp Metabolic Fsv280 ALBUMIN 4.0 g/dL 11/25/2017 Comp Metabolic Uhx113 TPRO 6.1 g/dL 11/25/2017 Comp Metabolic Ntr206 GLOB 2.1 g/dL 11/25/2017 Comp Metabolic Bie198 A/G Ratio 1.9 Ratio 11/25/2017 Comp Metabolic Evo389 Osmo 284 mOsmo 11/25/2017 Cbc With Differential [...] 31.1 pg 11/25/2017 Cbc With Differential Ord2 [place]% 11.2 % 11/25/2017 Cbc With Differential Ord2 [...] 2.03 K/ul 11/25/2017 Cbc With Differential Ord2 [place] ABS# 0.6 K/ul 11/25/2017 Cbc With Differential [...] 31.8 pg 05/11/2016 Cbc With Differential Ord2 [place]% 9.5 % 05/11/2016 Cbc With Differential Ord2 [...] 1.76 K/ul 05/11/2016 Cbc With Differential Ord2 [place] ABS# 0.4 K/ul 05/11/2016 Cbc With Differential Ord2 Eos ABS# 0.1 K/ul 05/11/2016 Cbc With Differential Ord2 Baso ABS# 0.0 K/ul 05/11/2016 Comp Metabolic Uit403 NA 139 mEq/L 05/11/2016 Comp Metabolic Lvj172 K 4.6 mEq/L 05/11/2016 Comp Metabolic Xhp246 CL 104 mEq/L 05/11/2016 Comp Metabolic Jjb516 CO2 30.0 mEq/L 05/11/2016 Comp Metabolic Kzq973 ANION GAP 10 05/11/2016 Comp Metabolic Eig722 GLUCOSE 113 mg/dL 05/11/2016 Comp Metabolic Oec218 Creat 0.8 mg/dL 05/11/2016 Comp Metabolic Nzv766 eGFR 74 ml/min/1.73m2 05/11/2016 Comp Metabolic Cif275 BUN 16 mg/dL 05/11/2016 Comp Metabolic Vpi604 B/C Ratio 19.8 Ratio 05/11/2016 Comp Metabolic Drw138 CALCIUM 10.1 mg/dL 05/11/2016 Comp Metabolic Gfh252 ALK PHOS 44 U/L 05/11/2016 Comp Metabolic Kix431 AST(SGOT) 20 U/L 05/11/2016 Comp Metabolic Lnq616 ALT(SGPT) 17 U/L 05/11/2016 Comp Metabolic Mam556 BILI T 0.4 mg/dL 05/11/2016 Comp Metabolic Udm731 ALBUMIN 4.1 g/dL 05/11/2016 Comp Metabolic Djh353 TPRO 6.5 g/dL 05/11/2016 Comp Metabolic Sge223 GLOB 2.4 g/dL 05/11/2016 Comp Metabolic Xkd384 A/G Ratio 1.8 Ratio 05/11/2016 Comp Metabolic Mde841 Osmo 280 mOsmo 05/11/2016 Tsh Ord6 hTSH II 0.96 uIU/mL 05/11/2016 Lipid Ord30 CHOL 283 mg/dL 05/11/2016 Lipid Ord30 HDL 53.0 mg/dl 05/11/2016 Lipid Ord30 TRIG 144 mg/dL 05/11/2016 Lipid Ord30 LDL 201 mg/dL 05/11/2016 Lipid Ord30 C/HDL 5.3 Ratio 05/11/2016 C-Reactive Protein Qnt Crqnt CRP 0.5 mg/dl 12/18/2015 Vitamin D 25 Oh Dnx8519 VITAMIN D, 25 HYDROXY 84.50 ng/mL 12/18/2015 Comp Metabolic Wxk862 NA 139 mEq/L 12/18/2015 Comp Metabolic Bzx926 K 3.8 mEq/L 12/18/2015 Comp Metabolic Abf321 CL 103 mEq/L 12/18/2015 Comp Metabolic Hhd575 CO2 31.0 mEq/L 12/18/2015 Comp Metabolic Kqy691 ANION GAP 9 12/18/2015 Comp Metabolic Aev068 GLUCOSE 107 mg/dL 12/18/2015 Comp Metabolic Oit908 Creat 0.8 mg/dL 12/18/2015 Comp Metabolic Lez581 eGFR 80 ml/min/1.73m2 12/18/2015 Comp Metabolic Sbx573 BUN 19 mg/dL 12/18/2015 Comp Metabolic Hzq550 B/C Ratio 25.0 Ratio 12/18/2015 Comp Metabolic Icj886 CALCIUM 9.1 mg/dL 12/18/2015 Comp Metabolic Ehu210 ALK PHOS 42 U/L 12/18/2015 Comp Metabolic Hkh899 AST(SGOT) 17 U/L 12/18/2015 Comp Metabolic Nfw242 ALT(SGPT) 18 U/L 12/18/2015 Comp Metabolic Qob675 BILI T 0.3 mg/dL 12/18/2015 Comp Metabolic Xik168 ALBUMIN 3.8 g/dL 12/18/2015 Comp Metabolic Rpg186 TPRO 5.9 g/dL 12/18/2015 Comp Metabolic Spv135 GLOB 2.1 g/dL 12/18/2015 Comp Metabolic Rcj192 A/G Ratio 1.8 Ratio 12/18/2015 Comp Metabolic Nek750 Osmo 280 mOsmo 12/18/2015 Sed Rate Ord21 [...] 32.0 pg 12/18/2015 Cbc With Differential Ord2 [place]% 9.3 % 12/18/2015 Cbc With Differential Ord2 [...] 1.45 K/ul 12/18/2015 Cbc With Differential Ord2 [place] ABS# 0.5 K/ul 12/18/2015 Cbc With Differential [...] 31.6 pg 09/02/2015 Cbc With Differential Ord2 [place]% 8.8 % 09/02/2015 Cbc With Differential Ord2 [...] 1.53 K/ul 09/02/2015 Cbc With Differential Ord2 [place] ABS# 0.5 K/ul 09/02/2015 Cbc With Differential Ord2 Eos ABS# 0.1 K/ul 09/02/2015 Cbc With Differential Ord2 Baso ABS# 0.0 K/ul 09/02/2015 Cbc With Differential Ord2 New Analyzer Notice Please note new ref ranges starting 08-14-2015 due to implemntation of new five part differential hematolgy analyzer. 09/02/2015 Tsh Ord6 hTSH II 1.41 uIU/mL 09/02/2015 Comp Metabolic Oag565 NA 136 mEq/L 09/02/2015 Comp Metabolic Dmf872 K 4.5 mEq/L 09/02/2015 Comp Metabolic Uyj158 CL 103 mEq/L 09/02/2015 Comp Metabolic Crf725 CO2 27.0 mEq/L 09/02/2015 Comp Metabolic Ouh650 ANION GAP 11 09/02/2015 Comp Metabolic Mzt787 GLUCOSE 109 mg/dL 09/02/2015 Comp Metabolic Oyf072 Creat 1.0 mg/dL 09/02/2015 Comp Metabolic Stt770 eGFR 62 ml/min/1.73m2 09/02/2015 Comp Metabolic Jvk044 BUN 21 mg/dL 09/02/2015 Comp Metabolic Rhn503 B/C Ratio 22.1 Ratio 09/02/2015 Comp Metabolic Gse875 CALCIUM 9.3 mg/dL 09/02/2015 Comp Metabolic Dop224 ALK PHOS 37 U/L 09/02/2015 Comp Metabolic Suo530 AST(SGOT) 19 U/L 09/02/2015 Comp Metabolic Boq177 ALT(SGPT) 16 U/L 09/02/2015 Comp Metabolic Ajz824 BILI T 0.4 mg/dL 09/02/2015 Comp Metabolic Xcx426 ALBUMIN 4.1 g/dL 09/02/2015 Comp Metabolic Pdw113 TPRO 6.3 g/dL 09/02/2015 Comp Metabolic Tlp230 GLOB 2.2 g/dL 09/02/2015 Comp Metabolic Ksx908 A/G Ratio 1.8 Ratio 09/02/2015 Comp Metabolic Xhs238 Osmo 276 mOsmo 09/02/2015 A1C HPLC [id number] A1C HPLC 45571-8 5.6 % 07/23/2014 VIT D TOTL 1932057 VIT D TOTL 52 NG/ML 07/20/2013 GFR CALC 0021064 GFR AA >60 ML/MIN 07/20/2013 GFR CALC 1048327 GFR NON-AA >60 ML/MIN 07/20/2013 CBC [id number] WBC 5.9 10e9/L 07/20/2013 CBC [id number] RBC 4.79 10e12/L 07/20/2013 CBC 5377837 HGB 15.5 g/dL 07/20/2013 CBC [id number] HCT DET 46.1 % 07/20/2013 CBC [id number] MCV 96.2 fL 07/20/2013 CBC [id number] MCH 32.4 pg 07/20/2013 CBC 1356321 MCHC 33.6 g/dL 07/20/2013 CBC [id number] PLT 286 10e9/L 07/20/2013 CBC [id number] MPV 10.8 fL 07/20/2013 CBC [id number] ERINN % 66.1 % 07/20/2013 CBC 7535897 LY % 24.3 % 07/20/2013 CBC 9465915 MON % 8.1 % 07/20/2013 CBC [id number] EOS % 1.2 % 07/20/2013 CBC 5988782 BASO % 0.3 % 07/20/2013 CBC [id number] RDW 12.7 % 07/20/2013 CBC [id number] ABS ERINN 3.90 10e9/L 07/20/2013 CBC [id number] ABS LYMPH 1.43 10e9/L 07/20/2013 CBC 2380753 ABS MONO 0.48 10e9/L 07/20/2013 CBC [id number] ABS EOS 0.07 10e9/L 07/20/2013 CBC [id number] ABS BASO 0.02 10e9/L 07/20/2013 CBC [id number] RDW-SD 44.1 fL 07/20/2013 A1C HPLC [id number] A1C HPLC 09098-7 5.9 % 07/20/2013 LIPID GRP HDL TEST 54 MG/DL 07/20/2013 LIPID GRP TRIG 98 MG/DL 07/20/2013 LIPID GRP TEST LDL 95 MG/DL 07/20/2013 LIPID GRP CHOL 169 MG/DL 07/20/2013 LIPID GRP RCHOL/HDL 3.13 RATIO 07/20/2013 TSH [id number] TSH 1.032 uIU/ML 07/20/2013 CHEM 14 9344501 AST 18 U/L 07/20/2013 CHEM 14 20280204 ALT 13 IU/L 07/20/2013 CHEM 14 9368563 BUN 19 MG/DL 07/20/2013 CHEM 14 [id number] ALBUMIN 4.5 GM/DL 07/20/2013 CHEM 14 4770885 CHLORIDE 105 MMOL/L 07/20/2013 CHEM 14 3757505 BILI TOT 0.5 MG/DL 07/20/2013 CHEM 14 [id number] ALK PHOS 40 U/L 07/20/2013 CHEM 14 6099099 SODIUM 137 MMOL/L 07/20/2013 CHEM 14 [id number] CREATININE 0.76 MG/DL 07/20/2013 CHEM 14 4337439 CALCIUM 10.0 MG/DL 07/20/2013 CHEM 14 7373588 POTASSIUM 4.6 MMOL/L 07/20/2013 CHEM 14 2421194 PROT TOT 6.5 GM/DL 07/20/2013 CHEM 14 8228026 GLUCOSE 118 MG/DL 07/20/2013 CHEM 14 9492537 BICARB 26 MMOL/L 07/20/2013 CHEM 14 5683105 ANION GAP 6 MEQ/L 07/20/2013 VIT B 12 3709290 VIT B 12 492 PG/ML 07/20/2013 Review of Systems System Result Effective Dates Constitutional No recent illness 09/19/2018 Constitutional No [...] accomodation 07/20/2013 None Full Exam - General 1995 Ears/Nose/Throat otoscopic exam External auditory canal: a normal exam 07/20/2013 None Full Exam - General 1995 [...] 1994 Ears/Nose/Throat oral cavity/pharynx/larynx Overall: no masses 07/20/2013 [...] exam 06/22/2013 None Full Exam - General 1994 Ears/Nose/Throat otoscopic exam External auditory canal: partial cerumen occlusion 06/22/2013 None Full Exam - General 1995 Ears/Nose/Throat otoscopic exam Tympanic membrane: a normal exam 06/22/2013 None Full Exam - General 1994 [...] SUBSEQ VISIT CPT- 4: G0439 12/03/2017 TOBACCO-USE DIRECTOR OF MAINTENANCE 3-[address]: 613579391 CPT-4: G0436 09/08/2016 ADMIN INFLUENZA VIRUS VAC CPT-4: G0008 05/11/2016 PNEUMOCOCCAL VACC 13 SAULO IM Formatting Model/CDA Sections, Assigned to/Rafia Cuadra SNOMED CT: 53174739 CPT-4: 87093Fulcpdf 05/11/2016 ADMIN PNEUMOCOCCAL VACCINE SNOMED CT: 06817609 CPT-4: G0009 05/11/2016 FLU VACC 4 SAULO 3 YRS PLUS IM Formatting Model/CDA Sections, Assigned to/Rafia Cuadra SNOMED CT: 50357354 CPT-4: 81699Gvgcfqc 05/11/2016 TOBACCO-USE DIRECTOR OF MAINTENANCE 3-[address]: 304442539 CPT-4: G0436 02/10/2016 TRIAMCINOLONE ACET INJ NOS CPT-4: J3301 12/16/2015 DRAIN/INJECT JOINT/BURSA CPT-4: 91808 12/16/2015 TOBACCO-USE DIRECTOR OF MAINTENANCE 3-[address]: 706136977 CPT-4: G0436 12/09/2015 TOBACCO-USE DIRECTOR OF MAINTENANCE 3-[address]: 244983102 CPT-4: G0436 10/28/2015 THER/PROPH/DIAG INJ SC/IM CPT-4: 63580 11/12/2014 TRIAMCINOLONE ACET INJ NOS CPT-4: J3301 11/12/2014 ROCEPHIN, PER 250 MG CPT- 4: J0696 11/12/2014 ROUTINE VENIPUNCTURE CPT- 4: 92286 07/23/2014 URINALYSIS NONAUTO W/O SCOPE CPT-4: 46546 03/21/2014 ROUTINE VENIPUNCTURE CPT- 4: 06748 07/20/2013 PRESCRIP TRANSMIT VIA ERX SY CPT-4: G8553 07/20/2013 PRESCRIP TRANSMIT VIA ERX SY CPT-4: G8553 06/22/2013 PARTIAL REMOVAL OF LUNG CPT-4: 27830 Unknown Vital Signs Date Vital 09/19/2018 Blood Pressure 1: 140/70 Code: 8480-6 BMI: 31.6 Code: 65732-2 Heart Rate 1: 72 bpm Height: 5'5" SpO2: 96% Weight: 190 lbs 06/16/2018 Blood Pressure 1: 146/84 Code: 8480-6 BMI: 30.6 Code: 12762-2 Heart Rate 1: 68 bpm Height: 5'5" SpO2: 99% Weight: 184 lbs 03/25/2018 Blood Pressure 1: 144/80 Code: 8480-6 BMI: 30.0 Code: 79888-9 Heart Rate 1: 65 bpm Height: 5'5" SpO2: 98% Weight: 180 lbs 12/03/2017 Blood Pressure 1: 142/86 Code: 8480-6 BMI: 29.5 Code: 02136-5 Heart Rate 1: 74 bpm Height: 5'5" SpO2: 93% Weight: 177 lbs 11/25/2017 Blood Pressure 1: 142/84 Code: 8480-6 BMI: 29.5 Code: 87814-6 Heart Rate 1: 69 bpm Height: 5'5" SpO2: 99% Weight: 177 lbs 07/09/2017 Blood Pressure 1: 142/68 Code: 8480-6 BMI: 28.3 Code: 63372-7 Heart Rate 1: 48 bpm Height: 5'5" SpO2: 97% Weight: 170 lbs 04/29/2017 Blood Pressure 1: 148/86 Code: 8480-6 BMI: 28.6 Code: 59597-9 Heart Rate 1: 71 bpm Height: 5'5" SpO2: 95% Weight: 172 lbs 01/07/2017 Blood Pressure 1: 140/70 Code: 8480-6 BMI: 28.8 Code: 08544-4 Heart Rate 1: 68 bpm Height: 5'5" SpO2: 96% Weight: 173 lbs 09/08/2016 Blood Pressure 1: 134/70 Code: 8480-6 BMI: 29.1 Code: 72143-7 Heart Rate 1: 68 bpm Height: 5'5" SpO2: 99% Weight: 175 lbs 05/11/2016 Blood Pressure 1: 138/88 Code: 8480-6 BMI: 29.2 Code: 63647-8 Heart Rate 1: 67 bpm Height: 5'6" SpO2: 95% Weight: 178 lbs 02/10/2016 Blood Pressure 1: 148/82 Code: 8480-6 BMI: 28.8 Code: 18918-7 Heart Rate 1: 63 bpm Height: 5'6" SpO2: 97% Weight: 176 lbs 12/18/2015 Blood Pressure 1: 130/78 Code: 8480-6 BMI: 28.8 Code: 46136-4 Heart Rate 1: 66 bpm Height: 5'6" SpO2: 98% Weight: 176 lbs 12/16/2015 Blood Pressure 1: 162/100 Code: 8480-6 BMI: 28.8 Code: 76045-9 Heart Rate 1: 65 bpm Height: 5'6" SpO2: 98% Weight: 176 lbs 12/09/2015 Blood Pressure 1: 142/70 Code: 8480-6 BMI: 28.4 Code: 42678-9 Heart Rate 1: 65 bpm Height: 5'6" SpO2: 96% Weight: 173 lbs 10/28/2015 Blood Pressure 1: 160/82 Code: 8480-6 Blood Pressure 1: 140/86 Code: 8480-6 BMI: 28.5 Code: 99118-2 Heart Rate 1: 60 bpm Height: 5'6" SpO2: 96% Weight: 174 lbs 08/26/2015 Blood Pressure 1: 158/80 Code: 8480-6 Blood Pressure 1: 148/88 Code: 8480-6 BMI: 28.0 Code: 58329-0 Heart Rate 1: 68 bpm Height: 5'6" SpO2: 98% Weight: 171 lbs 02/12/2015 Blood Pressure 1: 136/74 Code: 8480-6 BMI: 25.9 Code: 53434-1 Heart Rate 1: 61 bpm Height: 5'6" SpO2: 97% Weight: 158 lbs 11/12/2014 Blood Pressure 1: 140/82 Code: 8480-6 BMI: 25.9 Code: 34454-6 Heart Rate 1: 64 bpm Height: 5'6" SpO2: 97% Weight: 158 lbs 07/23/2014 Blood Pressure 1: 138/88 Code: 8480-6 BMI: 25.6 Code: 05152-6 Heart Rate 1: 57 bpm Height: 5'6" SpO2: 95% Weight: 156 lbs 03/21/2014 Blood Pressure 1: 124/64 Code: 8480-6 Heart Rate 1: 64 bpm Weight: 147 lbs 01/25/2014 Blood Pressure 1: 130/70 Code: 8480-6 BMI: 24.4 Code: 89522-8 Height: 5'6" Weight: 149 lbs 10/23/2013 Blood Pressure 1: 152/82 Code: 8480-6 BMI: 25.7 Code: 93602-7 Heart Rate 1: 60 bpm Height: 5'6" Weight: 157 lbs 08/21/2013 Blood Pressure 1: 142/90 Code: 8480-6 BMI: 25.9 Code: 29499-4 Heart Rate 1: 56 bpm Height: 5'6" Weight: 158 lbs 07/20/2013 Blood Pressure 1: 164/80 Code: 8480-6 BMI: 26.2 Code: 54558-2 Heart Rate 1: 60 bpm Height: 5'6" SpO2: 98% Weight: 160 lbs 06/22/2013 Blood Pressure 1: 140/84 Code: 8480-6 BMI: 28.2 Code: 09365-5 Heart Rate 1: 60 bpm Height: 5'6" Weight: 172 lbs Functional Status No Functional Status data History of Present Illness Symptom Name Status Result Effective Date Notes Quality chronic 09/19/2018 None Quality primary hypertension [...] data Encounters Encounter Performer Location Codes Date ([id number]) 21101 EST. PATIENT, LEVEL IV Diagnosis: Essential (primary) hypertension[ICD10: I10] Diagnosis: Peripheral vascular disease, unspecified[ICD10: I73.9] Diagnosis: Rash and other nonspecific skin eruption[ICD10: R21] Diagnosis: Impaired fasting glucose[ICD10: R73.01] Marily Gonzalez MD, [facility] CPT-4: 85049 09/19/2018 ([id number]) 01978 EST. PATIENT, LEVEL IV Diagnosis: Malignant neoplasm of upper lobe, left bronchus or lung[ICD10: C34.12] Diagnosis: Solitary pulmonary nodule[ICD10: R91.1] Diagnosis: Essential (primary) hypertension[ICD10: I10] Diagnosis: Low back pain[ICD10: M54.5] Diagnosis: Tobacco use[ICD10: Z72.0] Marily Gonzalez MD, [facility] CPT-4: 29717 06/16/2018 ([id number]) 64160 EST. PATIENT, LEVEL IV Diagnosis: Essential (primary) hypertension[ICD10: I10] Diagnosis: Major depressive disorder, recurrent, moderate[ICD10: F33.1] Diagnosis: Low back pain[ICD10: M54.5] Diagnosis: Rash and other nonspecific skin eruption[ICD10: R21] Marily Gonzalez MD, [facility] CPT-4: 62358 03/25/2018 ([id number]) 73856 EST. PATIENT, LEVEL IV Diagnosis: Essential (primary) hypertension[ICD10: I10] Diagnosis: Mixed hyperlipidemia[ICD10: E78.2] Diagnosis: Malignant neoplasm of upper lobe, left bronchus or lung[ICD10: C34.12] Diagnosis: Impaired fasting glucose[ICD10: R73.01] Diagnosis: Cervicalgia[ICD10: M54.2] Diagnosis: Low back pain[ICD10: M54.5] Marily Gonzalez MD, [facility] CPT-4: 29782 11/25/2017 ([id number]) 07526 EST. PATIENT, LEVEL III Diagnosis: Essential (primary) hypertension[ICD10: I10] Marily Gonzalez MD, [facility] CPT-4: 95135 07/09/2017 ([id number]) 89595 EST. PATIENT, LEVEL III Diagnosis: Gas pain[ICD10: R14.1] Diagnosis: Rash and other nonspecific skin eruption[ICD10: R21] Marily Gonzalez MD, [facility] CPT-4: 09941 04/29/2017 ([id number]) 76732 EST. PATIENT, LEVEL III Diagnosis: Essential (primary) hypertension[ICD10: I10] Diagnosis: Malignant neoplasm of upper lobe, left bronchus or lung[ICD10: C34.12] Diagnosis: Chronic obstructive pulmonary disease, unspecified[ICD10: J44.9] Marily Gonzalez MD, [facility] CPT-4: 93531 01/07/2017 ([id number]) 17124 EST. PATIENT, LEVEL IV Diagnosis: Essential (primary) hypertension[ICD10: I10] Diagnosis: Mixed hyperlipidemia[ICD10: E78.2] Diagnosis: Tobacco use[ICD10: Z72.0] Diagnosis: Malignant neoplasm of upper lobe, left bronchus or lung[ICD10: C34.12] Marily Gonzalez MD, [facility] CPT-4: 57333 09/08/2016 ([id number]) 92869 EST. PATIENT, LEVEL IV Diagnosis: Essential (primary) hypertension[ICD10: I10] Diagnosis: Mixed hyperlipidemia[ICD10: E78.2] Diagnosis: Generalized anxiety disorder[ICD10: F41.1] Diagnosis: Other specified disorders of bone density and structure, multiple sites[ICD10: M85.89] Marily Gonzalez MD, [facility] CPT-4: 10576 05/11/2016 ([id number]) 95156 EST. PATIENT, LEVEL IV Diagnosis: Essential (primary) hypertension[ICD10: I10] Diagnosis: Generalized anxiety disorder[ICD10: F41.1] Diagnosis: Tobacco use[ICD10: Z72.0] Marily Gonzalez MD, [facility] CPT-4: 48335 02/10/2016 60322 EST. PATIENT, LEVEL IV Diagnosis: Myalgia[ICD10: M79.1] Diagnosis: Low back pain[ICD10: M54.5] Joy Gonzalez MD, [facility] CPT-4: 09338 12/18/2015 87903 EST. PATIENT, LEVEL IV Diagnosis: Low back pain[ICD10: M54.5] Diagnosis: Pain in right hip[ICD10: M25.551] Joy Gonzalez MD, [facility] CPT-4: 81683 12/16/2015 ([id number]) 87762 EST. PATIENT, LEVEL IV Diagnosis: Low back pain[ICD10: M54.5] Diagnosis: Malignant neoplasm of upper lobe, left bronchus or lung[ICD10: C34.12] Diagnosis: Tobacco use[ICD10: Z72.0] Diagnosis: Essential (primary) hypertension[ICD10: I10] Diagnosis: Generalized anxiety disorder[ICD10: F41.1] Marily Gonzalez MD, [facility] CPT-4: 94300 12/09/2015 ([id number]) 68010 EST. PATIENT, LEVEL IV Diagnosis: Essential (primary) hypertension[ICD10: I10] Diagnosis: Tobacco use[ICD10: Z72.0] Diagnosis: Solitary pulmonary nodule[ICD10: R91.1] Marily Gonzalez MD, [facility] CPT-4: 81436 10/28/2015 ([id number]) 90049 EST. PATIENT, LEVEL IV Diagnosis: Essential (primary) hypertension[ICD10: I10] Diagnosis: Bilateral primary osteoarthritis of hip[ICD10: M16.0] Diagnosis: Solitary pulmonary nodule[ICD10: R91.1] Mairly Gonzalez MD, [facility] CPT-4: 80160 08/26/2015 ([id number]) 39148 EST. PATIENT, LEVEL IV Diagnosis: ESSENTIAL HYPERTENSION[ICD9: 401.9] Diagnosis: Pulmonary nodule[ICD9: 793.11] Teresa Gonzalez MD, [facility] CPT-4: 55337 02/12/2015 ([id number]) 27702 EST. PATIENT, LEVEL III Diagnosis: ACUTE BRONCHITIS[ICD9: 466.0] Diagnosis: ALLERGIC RHINITIS[ICD9: 477.9] Teresa Gonzalez MD, [facility] CPT-4: 47288 11/12/2014 ([id number]) 12225 EST. PATIENT, LEVEL IV Diagnosis: ESOPHAGEAL REFLUX[ICD9: 530.81] Diagnosis: ESSENTIAL HYPERTENSION[ICD9: 401.9] Diagnosis: Elevated blood sugar[ICD9: 790.29] Marily Gonzalez MD, [facility] CPT- 4: 48642 07/23/2014 ([id number]) 89047 EST. PATIENT, LEVEL III Diagnosis: Vaginal yeast infection[ICD9: 112.1] Diagnosis: Vaginal burning[ICD9: 625.8] Diagnosis: History of UTI[ICD9: V13.02] Diagnosis: Dysuria[ICD9: 788.1] Marily Gonzalez MD, [facility] CPT-4: 88048 03/21/2014 ([id number]) 45695 EST. PATIENT, LEVEL III Diagnosis: ESSENTIAL HYPERTENSION[ICD9: 401.9] Marily Gonzalez MD, [facility] CPT-4: 81331 01/25/2014 ([id number]) 38004 EST. PATIENT, LEVEL III Diagnosis: ESSENTIAL HYPERTENSION[SNOMED: 33291762] Diagnosis: ESOPHAGEAL REFLUX[ICD9: 530.81] Teresa Gonzalez MD, [facility] CPT-4: 56649 10/23/2013 ([id number]) 94802 EST. PATIENT, LEVEL IV Diagnosis: ESOPHAGEAL REFLUX[ICD9: 530.81] Diagnosis: ESSENTIAL HYPERTENSION[SNOMED: 29514609] Diagnosis: Rash[ICD9: 782.1] Marily Gonzalez MD, [facility] CPT-4: 11407 08/21/2013 ([id number]) 31823 EST. PATIENT, LEVEL IV Diagnosis: Muscle ache of extremity[ICD9: 729.1] Diagnosis: Tingling in extremities[ICD9: 782.0] Diagnosis: ESSENTIAL HYPERTENSION[SNOMED: 11586676] Diagnosis: GERD (gastroesophageal reflux disease)[ICD9: 530.81] Diagnosis: Elevated blood sugar[ICD9: 790.29] Marily Gonzalez MD, [facility] CPT- 4: 55477 07/20/2013 OFFICE VISIT, NEW - LEVEL 3 Diagnosis: ESSENTIAL HYPERTENSION[SNOMED: 11784629] Diagnosis: Tobacco use[ICD9: 305.1] Diagnosis: Depression[ICD9: 311] Marily Gonzalez MD, [facility] CPT-4: 39842 06/22/2013 ([id number]) BEHAV CHNG SMOKING 3-10 MIN Diagnosis: [ICD9: ] [facility] CPT-4: 72776 06/22/2013 Plan of Care Planned Activity Notes Codes Status Date Visit Plan: Hypertension - well controlled -will [...] -check TA 09/19/2018 Appointment: Marily Valerio WPtel: [address] [place], [place] [address] (30 min) Complex 09/19/2018 Patient Education: Patient Medication Summary Completed 09/19/2018 Appointment: Marily Valerio WPtel: [phone] [phone] (15 min) Moderate 09/16/2018 Patient Education: Patient Medication Summary Completed 06/27/2018 Visit Plan: Lung nodule -right lung -on surveillance -patient also has history of left lung cancer with lobectomy -does not want to go to for oncology -wants to see Dr Mata at [facility] in [place] -will send referral Lumbar radiculopathy -rx for gabapentin provided and instructed on use - recommend patient return to Dr Herrera to discussed epidural injections HTN-controlled- no changes Tobacco use-patient continues to smoke and is not interested in quitting -smoking cessation encouraged 06/16/2018 Appointment: Marily Valerio WPtel: [facility] [place] [address] (30 min) Complex 06/16/2018 Patient Education: Patient [...] start PT 03/25/2018 Appointment: Marily Valerio WPtel: [phone] (15 min) Moderate 03/25/2018 Patient Education: Patient [...] vs PT 11/25/2017 Appointment: Marily Valerio WPtel: [address] [place], [place] [phone] (15 min) Moderate 11/25/2017 Patient Education: Patient Medication Summary Completed 11/25/2017 Care Plan: X-RAY EXAM L-S SPINE 2/3 VWS LOINC : 35731-2 Pending 11/25/2017 Care Plan: X-RAY EXAM NECK SPINE 2-3 VW LOINC : 42184-8 Pending 11/25/2017 Appointment: Marily Valerio WPtel: [address] [place], [place] [phone] (15 min) Moderate 11/02/2017 Visit Plan: Hypertension [...] Dr Ryan 07/09/2017 Appointment: Marily Valerio WPtel: [address] [place], [place] [phone] [place] [address] (15 min) Moderate 07/09/2017 Patient Education: Patient Medication Summary Completed 07/09/2017 Patient Education: Smoking and Tobacco Addiction Completed 07/09/2017 Appointment: Marily Valerio WPtel: [address] [place], [place] [phone] (15 min) Moderate 07/08/2017 Visit Plan: Gas and bloating-cut out dairy x 2 weeks-increase gas x to TID-call if symptoms uncontrolled Rash-rx for nystatin powder provided-keep clean/dry-call if does not resolve or if any worse 04/29/2017 Appointment: Marily Valerio WPtel: [address] [place], [place] [phone] (15 min) Moderate 04/29/2017 Patient Education: Patient [...] nicotine patches 01/07/2017 Appointment: Marily Valerio WPtel: [phone] (15 min) Moderate 01/07/2017 Patient Education: Patient Medication Summary Completed 01/07/2017 Patient Education: Smoking and Tobacco Addiction Completed 01/07/2017 Patient Education: Hypertension Completed 01/07/2017 Appointment: Marily Valerio WPtel: [phone] (30 min) Complex 01/05/2017 Visit Plan: Hypertension [...] Ryan in 09/08/2016 Appointment: Marily Valerio WPtel: [phone] (15 min) Moderate 09/08/2016 Patient Education: [...] bone density 05/11/2016 Appointment: Marily Valerio WPtel: [address] [place] [phone] (15 min) Moderate 05/11/2016 Patient Education: Patient [...] Care Plan: MRI LUMBAR SPINE W/O DYE LOINC : 95972-7 Cancelled 01/17/2016 Visit Plan: Continued Low back [...] they worsen. 12/18/2015 Appointment: Marily Valerio WPtel: [phone] [phone] (30 min) Complex 12/18/2015 Patient Education: Patient [...] they worsen. 12/16/2015 [facility]ment[phone] (15 min) Moderate 12/16/2015 Patient Education: Patient [...] home. Left lung cancer-patient to see Dr Rayn today to discuss treatment options-patient to have [...] to have left upper lobe removed at [facility] this week to schedule Tobacco use-no cigarettes [...] blood pressure readings at home. Arthritis of aabx-guho-anscw mobic-monitor symptoms-check labs Left lung nodule- most recent scan shows slight increase in size and needs further evaluation- managed by Dr Corea-appt is this week 08/26/2015 Appointment: Marily Valerio WPtel: [phone] [phone] (30 min) Complex 08/26/2015 Patient Education: Patient Medication Summary Completed 08/26/2015 Patient Education: Hypertension Completed 08/26/2015 Appointment: Teresa Gonzalez WPtel: [phone] [facility] (15 min) Moderate 08/15/2015 Appointment: Teresa Gonzalez WPtel: [phone] [facility]66[facility] (15 min) Moderate 08/15/2015 Visit Plan: Hypertension [...] scan. 02/12/2015 Appointment: Teresa Gonzalez WPtel: [phone] [facility] Follow up 02/12/2015 Patient Education: Patient Medication [...] bloating-use dicyclomine prn Elevated blood sugar-check Hgb E4Z-yxu back on sweets/carbs 07/23/2014 Appointment: Follow up [...] at home. 01/25/2014 Appointment: Marily Valerio WPtel: [facility] Follow up 01/25/2014 Patient Education: Patient Medication [...] Dr. Mckeon. 10/23/2013 Appointment: [facility] Gonzalez [facility]el[facility] Follow [facility] 10/23/2013 Patient Education: Patient Medication [...] any worse. 08/21/2013 Appointment: Marily Valerio WPtel: [facility] [address] Follow up 08/21/2013 Patient Education: Patient Medication [...] with Dr Combs as scheduled Tingling of xstvvrgpzpi-xdxfgnnj-xaexv labs including vitamin b12 and vitamin d Elevated blood sugar-check hgb a1c 07/20/2013 Appointment: Marily Valerio WPtel: [phone] Follow up 07/20/2013 Patient Education: Patient Medication [...] quit date. 06/22/2013 Appointment: Marily Valerio WPtel[phone] New Patient 06/22/2013 Patient Education: Patient Medication [...] not resolve or if any worse. BONE DENSITY-DOUGH RAISER MON- FLU AND PREVNAR 13 . Hypertension [...] with Dr Combs as scheduled Tingling of vntkgfqiqoa-dwalcsjk-djcci labs including vitamin b12 and vitamin d [...] Intermittent claudication -check TA Dr Mata at [facility] ( or wednesday) gabapentin 100mg at bedtime screening mammogram make an appt with Dr Herrera to discuss epidural injections . Lung nodule -right lung -on surveillance -patient also has history of left lung cancer with lobectomy -does not want to go to for oncology -wants to see Dr Mata at [facility] in [place] -will send referral Lumbar radiculopathy -rx for [...] blood pressure readings at home. Arthritis of zpjw-ndiu-bwvnb mobic-monitor symptoms-check labs Left lung nodule-most recent [...] bloating-use dicyclomine prn Elevated blood sugar-check Hgb F6Z-vdj back on sweets/carbs . Hypertension - well [...]
--- OUTSIDE RECORDS SUMMARY | 2019-03-31 08:57 | XMS REPORT | CCD ---
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 Unknown Has never used illegal drugs 06/22/2013 Allergies, Adverse Reactions, Alerts Substance Reaction Codes Entered Date Inactivated Date Status lisinopril cough, RxNorm: 95019 06/22/2013 No Inactive Date Active SULFA (SULFONAMIDE ANTIBIOTICS) hives, Unknown 06/22/2013 No Inactive Date Active Past Medical History Illness Codes Condition Status Onset Date Resolved Date Essential (primary) hypertension ICD-9: 401.1 ICD-10: I10 Active 07/09/2017 Unknown Impaired fasting glucose ICD-9: 790.21 ICD-10: R73.01 Active 11/25/2017 Unknown Peripheral vascular disease, unspecified ICD-9: 443.9 [...] ICD-9: 296.32 ICD-10: F33.1 Active 03/25/2018 Unknown Mixed hyperlipidemia ICD- 9: 272.2 ICD-10: E78.2 Active 05/10/2016 Unknown Encounter for general adult medical examination with abnormal findings ICD-9: V70.0 ICD-10: Z00.01 Active 12/03/2017 Unknown lung cancer Unknown Active 07/09/2017 Unknown Gas pain ICD-9: 787.3 ICD-10: R14.1 Active 04/29/2017 Unknown Chronic obstructive pulmonary disease, unspecified ICD-9: 496 ICD-10: J44.9 Active 01/07/2017 Unknown Essential (primary) hypertension ICD-9: 401.9 ICD-10: [...] Problems Condition Codes Effective Dates Condition Status Essential (primary) hypertension ICD-9: 401.1 ICD-10: I10 07/09/2017 Active Impaired fasting glucose ICD-9: 790.21 ICD-10: R73.01 11/25/2017 Active Peripheral vascular disease, unspecified ICD-9: 443.9 [...] moderate ICD-9: 296.32 ICD-10: F33.1 03/25/2018 Active Mixed hyperlipidemia ICD- 9: 272.2 ICD-10: E78.2 05/10/2016 Active Encounter for general adult medical examination with abnormal findings ICD-9: V70.0 ICD-10: Z00.01 12/03/2017 Active lung cancer Unknown 07/09/2017 Active Gas pain ICD-9: 787.3 ICD-10: R14.1 04/29/2017 Active Chronic obstructive pulmonary disease, unspecified ICD-9: 496 ICD-10: J44.9 01/07/2017 Active Essential (primary) hypertension ICD-9: 401.9 ICD-10: [...] Start Date Stop Date Status Fill Instructions amlodipine 10 mg tablet RxNorm: 223450 TAKE ONE TABLET BY MOUTH EVERY DAY 12/15/2018 06/12/2019 Active dicyclomine 20 mg tablet RxNorm: 952053 1 Tablet(s) PO TID PRN TAKE ONE CAPSULE BY MOUTH THREE TIMES A DAY NEEDED 10/28/2018 10/11/2021 Active [place] approved gabapentin 300 mg capsule RxNorm: 491061 1 Capsule(s) PO BID 09/30/2018 01/27/2019 Active after 14 days of HS increase to BID gabapentin 300 mg capsule RxNorm: 080226 1 Capsule(s) PO QHS 09/30/2018 09/29/2018 Inactive then increase to BID Lyrica 50 mg capsule RxNorm: 770076 1 Capsule(s) PO BID 09/27/2018 12/25/2018 Active Lyrica 50 mg capsule RxNorm: 955863 1 Capsule(s) PO BID 09/27/2018 09/26/2018 Inactive nystatin 100,000 unit/gram topical cream RxNorm: 185027 1 Application TOP BID 09/19/2018 10/02/2018 Inactive mix with betamethasone Diovan 320 mg tablet RxNorm: 244973 1 Tablet(s) PO daily 09/19/2018 03/17/2019 Active metoprolol tartrate 100 mg tablet RxNorm: 896989 1 Tablet(s) PO BID TAKE ONE TABLET BY MOUTH TWICE A DAY 09/19/2018 06/15/2019 Active dicyclomine 20 mg tablet RxNorm: 321789 1 Tablet(s) PO TID PRN TAKE ONE CAPSULE BY MOUTH THREE TIMES A DAY NEEDED 09/19/2018 10/27/2018 Inactive betamethasone dipropionate 0.05 % topical cream RxNorm: 397450 1 Application TOP BID 09/19/2018 10/02/2018 Inactive dicyclomine 10 mg capsule RxNorm: 436980 1 Capsule(s) PO TID PRN TAKE ONE CAPSULE BY MOUTH THREE TIMES A DAY NEEDED 09/19/2018 09/18/2018 Inactive nystatin 100,000 unit/gram topical cream RxNorm: 496492 1 Application TOP BID 06/16/2018 06/29/2018 Inactive gabapentin 100 mg capsule RxNorm: 032847 1 Capsule(s) PO UD 06/16/2018 07/15/2018 Inactive 1 po q HS x 1 week then 2 po q HS x 1 week then increase to 3 q HS amlodipine 10 mg tablet RxNorm: 030547 TAKE ONE TABLET BY MOUTH EVERY DAY 05/26/2018 11/21/2018 Inactive Lipitor 10 mg tablet RxNorm: 516907 Tablet(s) TAKE ONE TABLET BY MOUTH EVERY OTHER DAY 05/25/2018 02/18/2019 Active Lexapro 20 mg tablet RxNorm: 702474 1 Tablet(s) PO QPM 03/25/2018 09/20/2018 Inactive nystatin 100,000 unit/gram topical cream RxNorm: 982939 1 Application TOP BID 03/25/2018 04/07/2018 Inactive olmesartan 40 mg tablet RxNorm: 144709 1 Tablet(s) PO daily 03/25/2018 09/18/2018 Inactive Diovan 320 mg tablet RxNorm: 639948 TAKE ONE TABLET BY MOUTH DAILY 03/18/2018 03/24/2018 Inactive Lipitor 10 mg tablet RxNorm: 673100 TAKE ONE TABLET BY MOUTH EVERY OTHER DAY 03/18/2018 12/11/2018 Inactive metoprolol tartrate 100 mg tablet RxNorm: 599430 TAKE ONE TABLET BY MOUTH TWICE A DAY 01/05/2018 09/18/2018 Inactive Diovan 320 mg tablet RxNorm: 815593 TAKE ONE TABLET BY MOUTH EVERY DAY 12/16/2017 03/17/2018 Inactive Lexapro 10 mg tablet RxNorm: 244591 1 Tablet(s) PO QPM 11/25/2017 03/24/2018 Inactive amlodipine 10 mg tablet RxNorm: 421498 TAKE ONE TABLET BY MOUTH EVERY DAY 11/15/2017 05/13/2018 Inactive Lipitor 10 mg tablet RxNorm: 582843 TAKE ONE TABLET BY MOUTH EVERY OTHER DAY 10/18/2017 03/17/2018 Inactive dicyclomine 10 mg capsule RxNorm: 780525 TAKE ONE CAPSULE BY MOUTH THREE TIMES A DAY NEEDED 08/12/2017 09/18/2018 Inactive Lipitor 10 mg tablet RxNorm: 857463 TAKE ONE TABLET BY MOUTH EVERY OTHER DAY 07/12/2017 10/17/2017 Inactive Diovan 320 mg tablet RxNorm: 466704 TAKE ONE TABLET BY MOUTH EVERY DAY 06/09/2017 12/05/2017 Inactive dicyclomine 10 mg capsule RxNorm: 933040 TAKE ONE CAPSULE BY MOUTH THREE TIMES A DAY NEEDED 05/05/2017 08/02/2017 Inactive nystatin 100,000 unit/gram topical powder RxNorm: 841854 1 Application TOP BID 04/29/2017 05/08/2017 Inactive Diovan 320 mg tablet RxNorm: 237537 TAKE ONE TABLET BY MOUTH EVERY DAY 03/10/2017 06/07/2017 Inactive dicyclomine 10 mg capsule RxNorm: 203729 TAKE ONE CAPSULE BY MOUTH THREE TIMES A DAY NEEDED 02/04/2017 05/04/2017 Inactive amlodipine 10 mg tablet RxNorm: 505364 TAKE ONE TABLET BY MOUTH EVERY DAY 02/04/2017 10/31/2017 Inactive Lipitor 10 mg tablet RxNorm: 738550 TAKE ONE TABLET BY MOUTH EVERY OTHER DAY 02/04/2017 07/11/2017 Inactive Fish Oil 1,000 mg capsule RxNorm: 1 Capsule(s) PO TID 01/07/2017 No Stop Date Active metoprolol tartrate 100 mg tablet RxNorm: 248184 1 Tablet(s) PO BID TAKE ONE TABLET BY MOUTH TWICE A DAY 01/07/2017 01/01/2018 Inactive Diovan 320 mg tablet RxNorm: 002587 TAKE ONE TABLET BY MOUTH EVERY DAY 11/05/2016 03/04/2017 Inactive Lipitor 10 mg tablet RxNorm: 996342 1 Tablet(s) PO every other day 09/08/2016 01/05/2017 Inactive dc livalo dicyclomine 10 mg capsule RxNorm: 936410 TAKE ONE CAPSULE BY MOUTH THREE TIMES A DAY NEEDED 07/30/2016 01/25/2017 Inactive Diovan 320 mg tablet RxNorm: 548794 TAKE ONE TABLET BY MOUTH EVERY DAY 06/15/2016 11/04/2016 Inactive Lipitor 10 mg tablet RxNorm: 451053 1 Tablet(s) PO every other day 05/25/2016 05/24/2016 Inactive dc livalo Lipitor 10 mg tablet RxNorm: 089359 1 Tablet(s) PO every other day 05/25/2016 09/07/2016 Inactive dc livalo Livalo 2 mg tablet RxNorm: 522032 1 Tablet(s) PO daily 05/20/2016 05/19/2016 Inactive Livalo 2 mg tablet RxNorm: 595932 1 Tablet(s) PO daily 05/20/2016 05/24/2016 Inactive Celexa 10 mg tablet RxNorm: 082223 1 Tablet(s) PO daily 02/10/2016 11/24/2017 Inactive amlodipine 10 mg tablet RxNorm: 556210 TAKE ONE TABLET BY MOUTH EVERY DAY 02/03/2016 02/02/2016 Inactive amlodipine 10 mg tablet RxNorm: 176889 TAKE ONE TABLET BY MOUTH EVERY DAY 02/03/2016 01/27/2017 Inactive amlodipine 10 mg tablet RxNorm: 800311 TAKE ONE TABLET BY MOUTH EVERY DAY 02/03/2016 04/27/2017 Inactive metoprolol tartrate 100 mg tablet RxNorm: 316361 TAKE ONE TABLET BY MOUTH TWICE A DAY 2016 01/06/2017 Inactive Diovan 320 mg tablet RxNorm: 535941 TAKE ONE TABLET BY MOUTH EVERY DAY 12/19/2015 06/14/2016 Inactive Wellbutrin XL 150 mg 24 hr tablet, extended release RxNorm: 996921 1 Tablet(s) PO daily 12/09/2015 02/09/2016 Inactive tramadol 50 mg tablet RxNorm: 210936 1-2 Tablet(s) PO Q6 PRN 12/09/2015 11/24/2017 Inactive Mobic 7.5 mg tablet RxNorm: 987662 TAKE ONE TABLET BY MOUTH DAILY 11/11/2015 11/24/2017 Inactive dicyclomine 10 mg capsule RxNorm: 340158 TAKE ONE CAPSULE BY MOUTH THREE TIMES A DAY NEEDED 11/11/2015 07/29/2016 Inactive Wellbutrin 75 mg tablet RxNorm: 510882 1 Tablet(s) PO BID 10/28/2015 12/08/2015 Inactive simvastatin 20 mg tablet RxNorm: 535842 TAKE ONE TABLET BY MOUTH EVERY DAY 09/05/2015 2016 Inactive Mobic 7.5 mg tablet RxNorm: 550632 1 Tablet(s) PO daily 08/26/2015 11/10/2015 Inactive estradiol 0.5 mg tablet RxNorm: 380837 TAKE ONE TABLET BY MOUTH EVERY DAY 06/11/2015 03/06/2016 Inactive amlodipine 10 mg tablet RxNorm: 713077 TAKE ONE TABLET BY MOUTH EVERY DAY 04/19/2015 01/13/2016 Inactive dicyclomine 10 mg capsule RxNorm: 557760 TAKE ONE CAPSULE BY MOUTH THREE TIMES A DAY NEEDED 04/19/2015 10/15/2015 Inactive simvastatin 20 mg tablet RxNorm: 545704 TAKE ONE TABLET BY MOUTH EVERY DAY 02/21/2015 08/19/2015 Inactive Diovan 320 mg tablet RxNorm: 323474 TAKE ONE TABLET BY MOUTH EVERY DAY 12/19/2014 12/18/2015 Inactive cephalexin 500 mg capsule RxNorm: 970115 1 Capsule(s) PO TID 11/13/2014 11/19/2014 Inactive prednisone 10 mg tablet RxNorm: 798302 3 Tablet(s) PO daily 11/13/2014 11/17/2014 Inactive prednisone 10 mg tablet RxNorm: 515473 3 Tablet(s) PO daily 11/12/2014 11/12/2014 Inactive Kenalog 40 mg/mL suspension for injection RxNorm: 6601260 Milliliter(s) Inj 11/12/2014 11/12/2014 Inactive cephalexin 500 mg capsule RxNorm: 314282 1 Capsule(s) PO TID 11/12/2014 11/12/2014 Inactive ceftriaxone 500 mg solution for injection RxNorm: 7784217 Inj 11/12/2014 11/12/2014 Inactive dicyclomine 10 mg capsule RxNorm: 244287 TAKE ONE CAPSULE BY MOUTH THREE TIMES A DAY NEEDED 11/08/2014 04/18/2015 Inactive metoprolol tartrate 100 mg tablet RxNorm: 920750 TAKE ONE TABLET BY MOUTH TWICE A DAY 10/18/2014 2015 Inactive metoprolol tartrate 100 mg tablet RxNorm: 331754 1 Tablet(s) PO BID 10/18/2014 10/12/2015 Inactive simvastatin 20 mg tablet RxNorm: 290704 TAKE ONE TABLET BY MOUTH EVERY DAY 08/21/2014 02/16/2015 Inactive Diovan 320 mg tablet RxNorm: 030750 TAKE ONE TABLET BY MOUTH EVERY DAY 08/21/2014 12/18/2014 Inactive Carafate 1 gram tablet RxNorm: 390435 1 Tablet(s) PO AC & HS MIX WITH 30ML WATER 07/23/2014 11/24/2017 Inactive dissolve in water and drink as slurry dicyclomine 10 mg capsule RxNorm: 849143 1 Capsule(s) PO TID PRN 07/23/2014 10/20/2014 Inactive simvastatin 20 mg tablet RxNorm: 772541 TAKE ONE TABLET BY MOUTH EVERY DAY 06/07/2014 08/20/2014 Inactive estradiol 0.5 mg tablet RxNorm: 278884 TAKE ONE TABLET BY MOUTH EVERY DAY 05/16/2014 05/10/2015 Inactive amlodipine 10 mg tablet RxNorm: 063150 TAKE ONE TABLET BY MOUTH EVERY DAY 05/16/2014 04/18/2015 Inactive Diovan 320 mg tablet RxNorm: 200828 TAKE ONE TABLET BY MOUTH EVERY DAY 03/26/2014 08/20/2014 Inactive Diflucan 150 mg tablet RxNorm: 100764 1 Tablet(s) PO daily 03/21/2014 03/27/2014 Inactive simvastatin 20 mg tablet RxNorm: 805263 TAKE ONE TABLET BY MOUTH EVERY DAY 03/02/2014 05/30/2014 Inactive estradiol 0.5 mg tablet RxNorm: 643629 TAKE ONE TABLET BY MOUTH EVERY DAY 02/16/2014 05/15/2014 Inactive amlodipine 10 mg tablet RxNorm: 988247 TAKE ONE TABLET BY MOUTH EVERY DAY 02/16/2014 05/15/2014 Inactive pantoprazole 40 mg tablet,delayed release RxNorm: 071942 2 Tablet(s) PO daily 01/25/2014 02/23/2014 Inactive simvastatin 20 mg tablet RxNorm: 147169 Tablet(s) PO TAKE ONE TABLET BY MOUTH EVERY DAY 11/30/2013 03/01/2014 Inactive amlodipine 10 mg tablet RxNorm: 230716 Tablet(s) PO TAKE ONE TABLET BY MOUTH EVERY DAY 11/16/2013 02/15/2014 Inactive metoprolol tartrate 100 mg tablet RxNorm: 111041 1 Tablet(s) PO BID 10/23/2013 10/17/2014 Inactive Diovan 320 mg tablet RxNorm: 582508 Tablet(s) PO TAKE ONE TABLET BY MOUTH EVERY DAY 09/28/2013 03/25/2014 Inactive Carafate 1 gram tablet RxNorm: 920024 1 Tablet(s) PO TID MIX WITH 30ML WATER 09/20/2013 12/18/2013 Inactive estradiol 0.5 mg tablet RxNorm: 015589 1 Tablet(s) PO daily 08/21/2013 02/15/2014 Inactive amlodipine 10 mg tablet RxNorm: 317282 1 Tablet(s) PO daily 08/21/2013 11/15/2013 Inactive simvastatin 20 mg tablet RxNorm: 076539 1 Tablet(s) PO daily 08/21/2013 11/18/2013 Inactive Diovan 320 mg tablet RxNorm: 970983 1 Tablet(s) PO daily 08/21/2013 09/19/2013 Inactive Carafate 1 gram tablet RxNorm: 981642 1 Tablet(s) PO TID MIX WITH 30ML WATER 08/21/2013 09/19/2013 Inactive Diovan 320 mg tablet RxNorm: 335730 1 Tablet(s) PO daily 07/20/2013 08/18/2013 Inactive amlodipine 10 mg tablet RxNorm: 910951 1 Tablet(s) PO daily 07/20/2013 08/18/2013 Inactive estradiol 0.5 mg tablet RxNorm: 998658 1 Tablet(s) PO daily 07/20/2013 08/18/2013 Inactive metoprolol tartrate 100 mg tablet RxNorm: 043137 1 Tablet(s) PO BID 06/22/2013 10/22/2013 Inactive Wellbutrin XL 150 mg 24 hr tablet, extended release RxNorm: 039393 1 Tablet(s) PO daily 06/22/2013 07/19/2013 Inactive pantoprazole 40 mg tablet,delayed release RxNorm: 185244 1 Tablet(s) PO daily No Start Date Active calcium 500 mg tablet RxNorm: 2 Tablet(s) PO BID No Start Date Active glucosamine and mbomydnaiky-cdcgbjll-mqyj#3 oral RxNorm: 2837 oral No Start Date Active multivitamin tablet RxNorm: 1 Tablet(s) PO daily No Start Date Active aspirin 81 mg tablet RxNorm: 412530 1 Tablet(s) PO daily No Start Date Active Probiotic oral RxNorm: oral No Start Date Active Vitamin D3 1,000 unit capsule RxNorm: 501908 1 Capsule(s) PO daily No Start Date Active Eliquis 5 mg tablet RxNorm: 9599253 1 Tablet(s) PO BID No Start Date Active simvastatin 20 mg tablet RxNorm: 201978 1 Tablet(s) PO daily No Start Date 08/20/2013 Inactive hyoscyamine 0.125 mg sublingual tablet RxNorm: 1525811 1 Tablet(s) SL TID No Start Date 07/22/2014 Inactive metoprolol tartrate 100 mg tablet RxNorm: 965521 1 Tablet(s) PO daily No Start Date 06/21/2013 Inactive amlodipine 10 mg tablet RxNorm: 269923 1 Tablet(s) PO daily No Start Date 07/19/2013 Inactive Diovan 320 mg tablet RxNorm: 645103 1 Tablet(s) PO daily No Start Date 07/19/2013 Inactive Fish Oil 1,000 mg capsule RxNorm: 1 Capsule(s) PO BID No Start Date 01/06/2017 Inactive omeprazole 20 mg tablet,delayed release RxNorm: 813777 1 Tablet(s) PO daily No Start Date 01/25/2014 Inactive estradiol 0.5 mg tablet RxNorm: 797658 1 Tablet(s) PO daily No Start Date 07/19/2013 Inactive Medication Administered Medication Codes Instructions Start Date Status Kenalog 40 mg/mL suspension for injection RxNorm: 6203054 Milliliter 11/12/2014 No longer Active ceftriaxone 500 mg solution for injection RxNorm: 9646107 11/12/2014 No longer Active Immunizations Vaccine Codes [...] Observation Code Item Item Code Result Date Lipid Ord30 CHOL 180 mg/dL 11/25/2017 Lipid Ord30 HDL 52.0 mg/dl 11/25/2017 Lipid Ord30 TRIG 115 mg/dL 11/25/2017 Lipid Ord30 LDL 105 mg/dL 11/25/2017 Lipid Ord30 C/HDL 3.5 Ratio 11/25/2017 %Hba1C Iwn713 % HbA1c 66909- 6 5.7 % 11/25/2017 %Hba1C Kqq405 Gluc Ave 117 mg/dL 11/25/2017 Tsh Ord6 TSH (3rd IS) 1.06 uIU/mL 11/25/2017 Comp Metabolic Oeg276 NA 141 mEq/L 11/25/2017 Comp Metabolic Ehx012 K 4.2 mEq/L 11/25/2017 Comp Metabolic Lta121 CL 103 mEq/L 11/25/2017 Comp Metabolic Fbp220 CO2 31.0 mEq/L 11/25/2017 Comp Metabolic Qfe076 ANION GAP 11 11/25/2017 Comp Metabolic Qom733 GLUCOSE 117 mg/dL 11/25/2017 Comp Metabolic Awq876 Creat 0.8 mg/dL 11/25/2017 Comp Metabolic Utd979 eGFR 74 ml/min/1.73m2 11/25/2017 Comp Metabolic Xkt123 BUN 18 mg/dL 11/25/2017 Comp Metabolic Fnr356 B/C Ratio 22.2 Ratio 11/25/2017 Comp Metabolic Xgt543 CALCIUM 9.4 mg/dL 11/25/2017 Comp Metabolic Egj171 ALK PHOS 62 U/L 11/25/2017 Comp Metabolic Uiz964 AST(SGOT) 21 U/L 11/25/2017 Comp Metabolic Iah710 ALT(SGPT) 18 U/L 11/25/2017 Comp Metabolic Iui824 BILI T 0.4 mg/dL 11/25/2017 Comp Metabolic Feb341 ALBUMIN 4.0 g/dL 11/25/2017 Comp Metabolic Tlr659 TPRO 6.1 g/dL 11/25/2017 Comp Metabolic Umc049 GLOB 2.1 g/dL 11/25/2017 Comp Metabolic Jtf738 A/G Ratio 1.9 Ratio 11/25/2017 Comp Metabolic Odh197 Osmo 284 mOsmo 11/25/2017 Cbc With Differential [...] 31.1 pg 11/25/2017 Cbc With Differential Ord2 Burnett% 11.2 % 11/25/2017 Cbc With Differential Ord2 [...] 2.03 K/ul 11/25/2017 Cbc With Differential Ord2 Burnett ABS# 0.6 K/ul 11/25/2017 Cbc With Differential [...] 31.8 pg 05/11/2016 Cbc With Differential Ord2 Burnett% 9.5 % 05/11/2016 Cbc With Differential Ord2 [...] 1.76 K/ul 05/11/2016 Cbc With Differential Ord2 [place] ABS# 0.4 K/ul 05/11/2016 Cbc With Differential Ord2 Eos ABS# 0.1 K/ul 05/11/2016 Cbc With Differential Ord2 Baso ABS# 0.0 K/ul 05/11/2016 Comp Metabolic Mfs567 NA 139 mEq/L 05/11/2016 Comp Metabolic Uce116 K 4.6 mEq/L 05/11/2016 Comp Metabolic Wkw245 CL 104 mEq/L 05/11/2016 Comp Metabolic Hqx865 CO2 30.0 mEq/L 05/11/2016 Comp Metabolic Ozh539 ANION GAP 10 05/11/2016 Comp Metabolic Ued609 GLUCOSE 113 mg/dL 05/11/2016 Comp Metabolic Noc022 Creat 0.8 mg/dL 05/11/2016 Comp Metabolic Hdg602 eGFR 74 ml/min/1.73m2 05/11/2016 Comp Metabolic Jth653 BUN 16 mg/dL 05/11/2016 Comp Metabolic Kni067 B/C Ratio 19.8 Ratio 05/11/2016 Comp Metabolic Rsw640 CALCIUM 10.1 mg/dL 05/11/2016 Comp Metabolic Kjv063 ALK PHOS 44 U/L 05/11/2016 Comp Metabolic Oco786 AST(SGOT) 20 U/L 05/11/2016 Comp Metabolic Bjs194 ALT(SGPT) 17 U/L 05/11/2016 Comp Metabolic Kgh793 BILI T 0.4 mg/dL 05/11/2016 Comp Metabolic Cet681 ALBUMIN 4.1 g/dL 05/11/2016 Comp Metabolic Agb504 TPRO 6.5 g/dL 05/11/2016 Comp Metabolic Tks424 GLOB 2.4 g/dL 05/11/2016 Comp Metabolic Ctz579 A/G Ratio 1.8 Ratio 05/11/2016 Comp Metabolic Ncf600 Osmo 280 mOsmo 05/11/2016 Tsh Ord6 hTSH II 0.96 uIU/mL 05/11/2016 Lipid Ord30 CHOL 283 mg/dL 05/11/2016 Lipid Ord30 HDL 53.0 mg/dl 05/11/2016 Lipid Ord30 TRIG 144 mg/dL 05/11/2016 Lipid Ord30 LDL 201 mg/dL 05/11/2016 Lipid Ord30 C/HDL 5.3 Ratio 05/11/2016 C-Reactive Protein Qnt Crqnt CRP 0.5 mg/dl 12/18/2015 Vitamin D 25 Oh Ely1563 VITAMIN D, 25 HYDROXY 84.50 ng/mL 12/18/2015 Comp Metabolic Kyc282 NA 139 mEq/L 12/18/2015 Comp Metabolic Vwf627 K 3.8 mEq/L 12/18/2015 Comp Metabolic Rez296 CL 103 mEq/L 12/18/2015 Comp Metabolic Ain735 CO2 31.0 mEq/L 12/18/2015 Comp Metabolic Pxl517 ANION GAP 9 12/18/2015 Comp Metabolic Lbl139 GLUCOSE 107 mg/dL 12/18/2015 Comp Metabolic Bqn086 Creat 0.8 mg/dL 12/18/2015 Comp Metabolic Mox132 eGFR 80 ml/min/1.73m2 12/18/2015 Comp Metabolic Ijl738 BUN 19 mg/dL 12/18/2015 Comp Metabolic Hib906 B/C Ratio 25.0 Ratio 12/18/2015 Comp Metabolic Han431 CALCIUM 9.1 mg/dL 12/18/2015 Comp Metabolic Bjn087 ALK PHOS 42 U/L 12/18/2015 Comp Metabolic Ppf560 AST(SGOT) 17 U/L 12/18/2015 Comp Metabolic Ape713 ALT(SGPT) 18 U/L 12/18/2015 Comp Metabolic Jit380 BILI T 0.3 mg/dL 12/18/2015 Comp Metabolic Ied768 ALBUMIN 3.8 g/dL 12/18/2015 Comp Metabolic Aza802 TPRO 5.9 g/dL 12/18/2015 Comp Metabolic Gex316 GLOB 2.1 g/dL 12/18/2015 Comp Metabolic Xqc636 A/G Ratio 1.8 Ratio 12/18/2015 Comp Metabolic Ytn960 Osmo 280 mOsmo 12/18/2015 Sed Rate Ord21 [...] 32.0 pg 12/18/2015 Cbc With Differential Ord2 Burnett% 9.3 % 12/18/2015 Cbc With Differential Ord2 [...] 1.45 K/ul 12/18/2015 Cbc With Differential Ord2 Burnett ABS# 0.5 K/ul 12/18/2015 Cbc With Differential [...] 31.6 pg 09/02/2015 Cbc With Differential Ord2 Burnett% 8.8 % 09/02/2015 Cbc With Differential Ord2 [...] 1.53 K/ul 09/02/2015 Cbc With Differential Ord2 Burnett ABS# 0.5 K/ul 09/02/2015 Cbc With Differential Ord2 Eos ABS# 0.1 K/ul 09/02/2015 Cbc With Differential Ord2 Baso ABS# 0.0 K/ul 09/02/2015 Cbc With Differential Ord2 New Analyzer Notice Please note new ref ranges starting 08-14-2015 due to implemntation of new five part differential hematolgy analyzer. 09/02/2015 Tsh Ord6 hTSH II 1.41 uIU/mL 09/02/2015 Comp Metabolic Cgs125 NA 136 mEq/L 09/02/2015 Comp Metabolic Omb448 K 4.5 mEq/L 09/02/2015 Comp Metabolic Vwt679 CL 103 mEq/L 09/02/2015 Comp Metabolic Mci850 CO2 27.0 mEq/L 09/02/2015 Comp Metabolic Gcb887 ANION GAP 11 09/02/2015 Comp Metabolic Pcp070 GLUCOSE 109 mg/dL 09/02/2015 Comp Metabolic Cjt412 Creat 1.0 mg/dL 09/02/2015 Comp Metabolic Jca684 eGFR 62 ml/min/1.73m2 09/02/2015 Comp Metabolic Hai235 BUN 21 mg/dL 09/02/2015 Comp Metabolic Hhb978 B/C Ratio 22.1 Ratio 09/02/2015 Comp Metabolic Dbd437 CALCIUM 9.3 mg/dL 09/02/2015 Comp Metabolic Yuy626 ALK PHOS 37 U/L 09/02/2015 Comp Metabolic Sva644 AST(SGOT) 19 U/L 09/02/2015 Comp Metabolic Nkc857 ALT(SGPT) 16 U/L 09/02/2015 Comp Metabolic Gtj464 BILI T 0.4 mg/dL 09/02/2015 Comp Metabolic Rlr325 ALBUMIN 4.1 g/dL 09/02/2015 Comp Metabolic Dxp354 TPRO 6.3 g/dL 09/02/2015 Comp Metabolic Lpm415 GLOB 2.2 g/dL 09/02/2015 Comp Metabolic Fzv148 A/G Ratio 1.8 Ratio 09/02/2015 Comp Metabolic Iup845 Osmo 276 mOsmo 09/02/2015 A1C HPLC [id number] A1C HPLC 07147-2 5.6 % 07/23/2014 VIT D TOTL 6915981 VIT D TOTL 52 NG/ML 07/20/2013 GFR CALC 4115089 GFR AA >60 ML/MIN 07/20/2013 GFR CALC 1521381 GFR NON-AA >60 ML/MIN 07/20/2013 CBC 4805373 WBC 5.9 10e9/L 07/20/2013 CBC 0731355 RBC 4.79 10e12/L 07/20/2013 CBC 3221594 HGB 15.5 g/dL 07/20/2013 CBC 1774944 HCT DET 46.1 % 07/20/2013 CBC 3083231 MCV 96.2 fL 07/20/2013 CBC 7801892 MCH 32.4 pg 07/20/2013 CBC 9626805 MCHC 33.6 g/dL 07/20/2013 CBC 9389122 PLT 286 10e9/L 07/20/2013 CBC 1138793 MPV 10.8 fL 07/20/2013 CBC 7257469 ERINN % 66.1 % 07/20/2013 CBC 0472559 LY % 24.3 % 07/20/2013 CBC 4464129 MON % 8.1 % 07/20/2013 CBC 8822058 EOS % 1.2 % 07/20/2013 CBC 7149046 BASO % 0.3 % 07/20/2013 CBC 4192642 RDW 12.7 % 07/20/2013 CBC 0001148 ABS ERINN 3.90 10e9/L 07/20/2013 CBC 1802973 ABS LYMPH 1.43 10e9/L 07/20/2013 CBC 3247027 ABS MONO 0.48 10e9/L 07/20/2013 CBC 6950007 ABS EOS 0.07 10e9/L 07/20/2013 CBC 4241898 ABS BASO 0.02 10e9/L 07/20/2013 CBC 7717088 RDW-SD 44.1 fL 07/20/2013 A1C HPLC 9819883 A1C HPLC 44535-2 5.9 % 07/20/2013 LIPID GRP HDL TEST 54 MG/DL 07/20/2013 LIPID GRP TRIG 98 MG/DL 07/20/2013 LIPID GRP TEST LDL 95 MG/DL 07/20/2013 LIPID GRP CHOL 169 MG/DL 07/20/2013 LIPID GRP RCHOL/HDL 3.13 RATIO 07/20/2013 TSH 3028923 TSH 1.032 uIU/ML 07/20/2013 CHEM 14 8699042 AST 18 U/L 07/20/2013 CHEM 14 9399691 ALT 13 IU/L 07/20/2013 CHEM 14 2590163 BUN 19 MG/DL 07/20/2013 CHEM 14 4465652 ALBUMIN 4.5 GM/DL 07/20/2013 CHEM 14 3138560 CHLORIDE 105 MMOL/L 07/20/2013 CHEM 14 7311879 BILI TOT 0.5 MG/DL 07/20/2013 CHEM 14 6907756 ALK PHOS 40 U/L 07/20/2013 CHEM 14 4621666 SODIUM 137 MMOL/L 07/20/2013 CHEM 14 6211617 CREATININE 0.76 MG/DL 07/20/2013 CHEM 14 0310120 CALCIUM 10.0 MG/DL 07/20/2013 CHEM 14 2763521 POTASSIUM 4.6 MMOL/L 07/20/2013 CHEM 14 5994766 PROT TOT 6.5 GM/DL 07/20/2013 CHEM 14 0507622 GLUCOSE 118 MG/DL 07/20/2013 CHEM 14 8946062 BICARB 26 MMOL/L 07/20/2013 CHEM 14 8598226 ANION GAP 6 MEQ/L 07/20/2013 VIT B 12 3088575 VIT B 12 492 PG/ML 07/20/2013 Review [...] visualized 07/20/2013 None Full Exam - General 1995 Ears/Nose/Throat oral cavity/pharynx/larynx Overall: oral mucosa clear [...] occlusion 06/22/2013 None Full Exam - General 1994 [...] SUBSEQ VISIT CPT- 4: G0439 12/03/2017 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 3-[address]: 985425132 CPT-4: G0436 09/08/2016 ADMIN INFLUENZA VIRUS VAC CPT-4: G0008 05/11/2016 PNEUMOCOCCAL VACC 13 SAULO IM Formatting Model/CDA Sections, Assigned to/Rafia Cuadra SNOMED CT: 67074147 CPT-4: 44863Atcnzyr 05/11/2016 ADMIN PNEUMOCOCCAL VACCINE SNOMED CT: 33106566 CPT-4: G0009 05/11/2016 FLU VACC 4 SAULO 3 YRS PLUS IM Formatting Model/CDA Sections, Assigned to/Rafia Cuadra SNOMED CT: 84435568 CPT-4: 88234Qbdbexa 05/11/2016 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 3-[address]: 431997261 CPT-4: G0436 02/10/2016 TRIAMCINOLONE ACET INJ NOS CPT-4: J3301 12/16/2015 DRAIN/INJECT JOINT/BURSA CPT-4: 10564 12/16/2015 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 3-[address]: 767939591 CPT-4: G0436 12/09/2015 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 3-[address]: 569326491 CPT-4: G0436 10/28/2015 THER/PROPH/DIAG INJ SC/IM CPT-4: 44511 11/12/2014 TRIAMCINOLONE ACET INJ NOS CPT-4: J3301 11/12/2014 ROCEPHIN, PER 250 MG CPT- 4: J0696 11/12/2014 ROUTINE VENIPUNCTURE CPT- 4: 39860 07/23/2014 URINALYSIS NONAUTO W/O SCOPE CPT-4: 06948 03/21/2014 ROUTINE VENIPUNCTURE CPT- 4: 66460 07/20/2013 PRESCRIP TRANSMIT VIA ERX SY CPT-4: G8553 07/20/2013 PRESCRIP TRANSMIT VIA ERX SY CPT-4: G8553 06/22/2013 PARTIAL REMOVAL OF LUNG CPT-4: 24173 Unknown Vital Signs Date Vital 09/19/2018 Blood Pressure 1: 140/70 Code: 8480-6 BMI: 31.6 Code: 81740-3 Heart Rate 1: 72 bpm Height: 5'5" SpO2: 96% Weight: 190 lbs 06/16/2018 Blood Pressure 1: 146/84 Code: 8480-6 BMI: 30.6 Code: 52605-2 Heart Rate 1: 68 bpm Height: 5'5" SpO2: 99% Weight: 184 lbs 03/25/2018 Blood Pressure 1: 144/80 Code: 8480-6 BMI: 30.0 Code: 80914-7 Heart Rate 1: 65 bpm Height: 5'5" SpO2: 98% Weight: 180 lbs 12/03/2017 Blood Pressure 1: 142/86 Code: 8480-6 BMI: 29.5 Code: 91129-9 Heart Rate 1: 74 bpm Height: 5'5" SpO2: 93% Weight: 177 lbs 11/25/2017 Blood Pressure 1: 142/84 Code: 8480-6 BMI: 29.5 Code: 59459-3 Heart Rate 1: 69 bpm Height: 5'5" SpO2: 99% Weight: 177 lbs 07/09/2017 Blood Pressure 1: 142/68 Code: 8480-6 BMI: 28.3 Code: 70969-3 Heart Rate 1: 48 bpm Height: 5'5" SpO2: 97% Weight: 170 lbs 04/29/2017 Blood Pressure 1: 148/86 Code: 8480-6 BMI: 28.6 Code: 45161-8 Heart Rate 1: 71 bpm Height: 5'5" SpO2: 95% Weight: 172 lbs 01/07/2017 Blood Pressure 1: 140/70 Code: 8480-6 BMI: 28.8 Code: 82820-8 Heart Rate 1: 68 bpm Height: 5'5" SpO2: 96% Weight: 173 lbs 09/08/2016 Blood Pressure 1: 134/70 Code: 8480-6 BMI: 29.1 Code: 55401-5 Heart Rate 1: 68 bpm Height: 5'5" SpO2: 99% Weight: 175 lbs 05/11/2016 Blood Pressure 1: 138/88 Code: 8480-6 BMI: 29.2 Code: 85103-1 Heart Rate 1: 67 bpm Height: 5'6" SpO2: 95% Weight: 178 lbs 02/10/2016 Blood Pressure 1: 148/82 Code: 8480-6 BMI: 28.8 Code: 67449-0 Heart Rate 1: 63 bpm Height: 5'6" SpO2: 97% Weight: 176 lbs 12/18/2015 Blood Pressure 1: 130/78 Code: 8480-6 BMI: 28.8 Code: 86482-3 Heart Rate 1: 66 bpm Height: 5'6" SpO2: 98% Weight: 176 lbs 12/16/2015 Blood Pressure 1: 162/100 Code: 8480-6 BMI: 28.8 Code: 62847-2 Heart Rate 1: 65 bpm Height: 5'6" SpO2: 98% Weight: 176 lbs 12/09/2015 Blood Pressure 1: 142/70 Code: 8480-6 BMI: 28.4 Code: 94546-1 Heart Rate 1: 65 bpm Height: 5'6" SpO2: 96% Weight: 173 lbs 10/28/2015 Blood Pressure 1: 160/82 Code: 8480-6 Blood Pressure 1: 140/86 Code: 8480-6 BMI: 28.5 Code: 20011-2 Heart Rate 1: 60 bpm Height: 5'6" SpO2: 96% Weight: 174 lbs 08/26/2015 Blood Pressure 1: 158/80 Code: 8480-6 Blood Pressure 1: 148/88 Code: 8480-6 BMI: 28.0 Code: 01564-1 Heart Rate 1: 68 bpm Height: 5'6" SpO2: 98% Weight: 171 lbs 02/12/2015 Blood Pressure 1: 136/74 Code: 8480-6 BMI: 25.9 Code: 98968-3 Heart Rate 1: 61 bpm Height: 5'6" SpO2: 97% Weight: 158 lbs 11/12/2014 Blood Pressure 1: 140/82 Code: 8480-6 BMI: 25.9 Code: 51053-7 Heart Rate 1: 64 bpm Height: 5'6" SpO2: 97% Weight: 158 lbs 07/23/2014 Blood Pressure 1: 138/88 Code: 8480-6 BMI: 25.6 Code: 47482-7 Heart Rate 1: 57 bpm Height: 5'6" SpO2: 95% Weight: 156 lbs 03/21/2014 Blood Pressure 1: 124/64 Code: 8480-6 Heart Rate 1: 64 bpm Weight: 147 lbs 01/25/2014 Blood Pressure 1: 130/70 Code: 8480-6 BMI: 24.4 Code: 29015-3 Height: 5'6" Weight: 149 lbs 10/23/2013 Blood Pressure 1: 152/82 Code: 8480-6 BMI: 25.7 Code: 82886-5 Heart Rate 1: 60 bpm Height: 5'6" Weight: 157 lbs 08/21/2013 Blood Pressure 1: 142/90 Code: 8480-6 BMI: 25.9 Code: 12514-8 Heart Rate 1: 56 bpm Height: 5'6" Weight: 158 lbs 07/20/2013 Blood Pressure 1: 164/80 Code: 8480-6 BMI: 26.2 Code: 32903-6 Heart Rate 1: 60 bpm Height: 5'6" SpO2: 98% Weight: 160 lbs 06/22/2013 Blood Pressure 1: 140/84 Code: 8480-6 BMI: 28.2 Code: 00967-3 Heart Rate 1: 60 bpm Height: 5'6" [...] data Encounters Encounter Performer Location Codes Date ([id number]) 19549 EST. PATIENT, LEVEL IV Diagnosis: Essential (primary) hypertension[ICD10: I10] Diagnosis: Peripheral vascular disease, unspecified[ICD10: I73.9] Diagnosis: Rash and other nonspecific skin eruption[ICD10: R21] Diagnosis: Impaired fasting glucose[ICD10: R73.01] Marily Gonzalez MD, [facility] CPT-4: 46372 09/19/2018 ([id number]) 50444 EST. PATIENT, LEVEL IV Diagnosis: Malignant neoplasm of upper lobe, left bronchus or lung[ICD10: C34.12] Diagnosis: Solitary pulmonary nodule[ICD10: R91.1] Diagnosis: Essential (primary) hypertension[ICD10: I10] Diagnosis: Low back pain[ICD10: M54.5] Diagnosis: Tobacco use[ICD10: Z72.0] Marily Gonzalez MD, [facility] CPT-4: 01226 06/16/2018 ([id number]) 44898 EST. PATIENT, LEVEL IV Diagnosis: Essential (primary) hypertension[ICD10: I10] Diagnosis: Major depressive disorder, recurrent, moderate[ICD10: F33.1] Diagnosis: Low back pain[ICD10: M54.5] Diagnosis: Rash and other nonspecific skin eruption[ICD10: R21] Marily Gonzalez MD, [facility] CPT-4: 49147 03/25/2018 ([id number]) 80002 EST. PATIENT, LEVEL IV Diagnosis: Essential (primary) hypertension[ICD10: I10] Diagnosis: Mixed hyperlipidemia[ICD10: E78.2] Diagnosis: Malignant neoplasm of upper lobe, left bronchus or lung[ICD10: C34.12] Diagnosis: Impaired fasting glucose[ICD10: R73.01] Diagnosis: Cervicalgia[ICD10: M54.2] Diagnosis: Low back pain[ICD10: M54.5] Marily Gonzalez MD, [facility] CPT-4: 80359 11/25/2017 ([id number]) 06259 EST. PATIENT, LEVEL III Diagnosis: Essential (primary) hypertension[ICD10: I10] Marily Gonzalez MD, [facility] CPT-4: 96058 07/09/2017 ([id number]) 14625 EST. PATIENT, LEVEL III Diagnosis: Gas pain[ICD10: R14.1] Diagnosis: Rash and other nonspecific skin eruption[ICD10: R21] Marily Gonzalez MD, [facility] CPT-4: 70888 04/29/2017 ([id number]) 71705 EST. PATIENT, LEVEL III Diagnosis: Essential (primary) hypertension[ICD10: I10] Diagnosis: Malignant neoplasm of upper lobe, left bronchus or lung[ICD10: C34.12] Diagnosis: Chronic obstructive pulmonary disease, unspecified[ICD10: J44.9] Marily Gonzalez MD, [facility] CPT-4: 01439 01/07/2017 ([id number]) 75067 EST. PATIENT, LEVEL IV Diagnosis: Essential (primary) hypertension[ICD10: I10] Diagnosis: Mixed hyperlipidemia[ICD10: E78.2] Diagnosis: Tobacco use[ICD10: Z72.0] Diagnosis: Malignant neoplasm of upper lobe, left bronchus or lung[ICD10: C34.12] Marily Gonzalez MD, [facility] CPT-4: 99860 09/08/2016 ([id number]) 75017 EST. PATIENT, LEVEL IV Diagnosis: Essential (primary) hypertension[ICD10: I10] Diagnosis: Mixed hyperlipidemia[ICD10: E78.2] Diagnosis: Generalized anxiety disorder[ICD10: F41.1] Diagnosis: Other specified disorders of bone density and structure, multiple sites[ICD10: M85.89] Marily Gonzalez MD, [facility] CPT-4: 49552 05/11/2016 ([id number]) 07191 EST. PATIENT, LEVEL IV Diagnosis: Essential (primary) hypertension[ICD10: I10] Diagnosis: Generalized anxiety disorder[ICD10: F41.1] Diagnosis: Tobacco use[ICD10: Z72.0] Marily Gonzalez MD, [facility] CPT-4: 32414 02/10/2016 61433 EST. PATIENT, LEVEL IV Diagnosis: Myalgia[ICD10: M79.1] Diagnosis: Low back pain[ICD10: M54.5] Joy Gonzalez MD, [facility] CPT-4: 02159 12/18/2015 40404 EST. PATIENT, LEVEL IV Diagnosis: Low back pain[ICD10: M54.5] Diagnosis: Pain in right hip[ICD10: M25.551] Joy Gonzalez MD, [facility] CPT-4: 73635 12/16/2015 ([id number]) 69795 EST. PATIENT, LEVEL IV Diagnosis: Low back pain[ICD10: M54.5] Diagnosis: Malignant neoplasm of upper lobe, left bronchus or lung[ICD10: C34.12] Diagnosis: Tobacco use[ICD10: Z72.0] Diagnosis: Essential (primary) hypertension[ICD10: I10] Diagnosis: Generalized anxiety disorder[ICD10: F41.1] Marily Gonzalez MD, [facility] CPT-4: 22742 12/09/2015 ([id number]) 66443 EST. PATIENT, LEVEL IV Diagnosis: Essential (primary) hypertension[ICD10: I10] Diagnosis: Tobacco use[ICD10: Z72.0] Diagnosis: Solitary pulmonary nodule[ICD10: R91.1] Marily Gonzalez MD, [facility] CPT-4: 59005 10/28/2015 ([id number]) 05329 EST. PATIENT, LEVEL IV Diagnosis: Essential (primary) hypertension[ICD10: I10] Diagnosis: Bilateral primary osteoarthritis of hip[ICD10: M16.0] Diagnosis: Solitary pulmonary nodule[ICD10: R91.1] Marily Gonzalez MD, [facility] CPT-4: 06106 08/26/2015 ([id number]) 85772 EST. PATIENT, LEVEL IV Diagnosis: ESSENTIAL HYPERTENSION[ICD9: 401.9] Diagnosis: Pulmonary nodule[ICD9: 793.11] Teresa Gonzalez MD, [facility] CPT-4: 60715 02/12/2015 ([id number]) 11646 EST. PATIENT, LEVEL III Diagnosis: ACUTE BRONCHITIS[ICD9: 466.0] Diagnosis: ALLERGIC RHINITIS[ICD9: 477.9] Teresa Gonzalez MD, [facility] CPT-4: 82988 11/12/2014 ([id number]) 42482 EST. PATIENT, LEVEL IV Diagnosis: ESOPHAGEAL REFLUX[ICD9: 530.81] Diagnosis: ESSENTIAL HYPERTENSION[ICD9: 401.9] Diagnosis: Elevated blood sugar[ICD9: 790.29] Marily Gonzalez MD, [facility] CPT- 4: 14992 07/23/2014 ([id number]) 05664 EST. PATIENT, LEVEL III Diagnosis: Vaginal yeast infection[ICD9: 112.1] Diagnosis: Vaginal burning[ICD9: 625.8] Diagnosis: History of UTI[ICD9: V13.02] Diagnosis: Dysuria[ICD9: 788.1] Marily Gonzalez MD, [facility] CPT-4: 72470 03/21/2014 ([id number]) 11228 EST. PATIENT, LEVEL III Diagnosis: ESSENTIAL HYPERTENSION[ICD9: 401.9] Marily Gonzalez MD, [facility] CPT-4: 80966 01/25/2014 ([id number]) 31887 EST. PATIENT, LEVEL III Diagnosis: ESSENTIAL HYPERTENSION[SNOMED: 77787240] Diagnosis: ESOPHAGEAL REFLUX[ICD9: 530.81] Teresa Gonzalez MD, [facility] CPT-4: 03389 10/23/2013 ([id number]) 73680 EST. PATIENT, LEVEL IV Diagnosis: ESOPHAGEAL REFLUX[ICD9: 530.81] Diagnosis: ESSENTIAL HYPERTENSION[SNOMED: 07705701] Diagnosis: Rash[ICD9: 782.1] Marily Gonzalez MD, [facility] CPT-4: 44736 08/21/2013 ([id number]) 66422 EST. PATIENT, LEVEL IV Diagnosis: Muscle ache of extremity[ICD9: 729.1] Diagnosis: Tingling in extremities[ICD9: 782.0] Diagnosis: ESSENTIAL HYPERTENSION[SNOMED: 61727143] Diagnosis: GERD (gastroesophageal reflux disease)[ICD9: 530.81] Diagnosis: Elevated blood sugar[ICD9: 790.29] Marily Gonzalez MD, [facility] CPT- 4: 17470 07/20/2013 OFFICE VISIT, NEW - LEVEL 3 Diagnosis: ESSENTIAL HYPERTENSION[SNOMED: 02503372] Diagnosis: Tobacco use[ICD9: 305.1] Diagnosis: Depression[ICD9: 311] Marily Gonzalez MD, [facility] CPT-4: 17304 06/22/2013 ([id number]) BEHAV CHNG SMOKING 3-10 MIN Diagnosis: [ICD9: ] Marily Gonzalez MD, [facility] CPT-4: 16556 06/22/2013 Plan of Care Planned Activity Notes [...] -check TA 09/19/2018 Appointment: Marily Valerio WPtel: [phone] [phone] (30 min) Complex 09/19/2018 Patient Education: Patient Medication Summary Completed 09/19/2018 Appointment: Marily Valerio WPtel: [phone] [phone] (15 min) Moderate 09/16/2018 Patient Education: Patient Medication Summary Completed 06/27/2018 Visit Plan: Lung nodule -right lung -on surveillance -patient also has history of left lung cancer with lobectomy -does not want to go to for oncology -wants to see Dr Mata at [facility] in [place] -will send referral Lumbar radiculopathy -rx for gabapentin provided and instructed on use - recommend patient return to Dr Herrera to discussed epidural injections HTN-controlled- no changes Tobacco use-patient continues to smoke and is not interested in quitting -smoking cessation encouraged 06/16/2018 Appointment: Marily Valerio WPtel: [phone] (30 min) Complex 06/16/2018 Patient Education: [...] start PT 03/25/2018 Appointment: Marily Valerio WPtel: [phone] [phone] [place] (15 min) Moderate 03/25/2018 Patient Education: [...] vs PT 11/25/2017 Appointment: Marily Valerio WPtel: [address] [place], [place] [phone] (15 min) Moderate 11/25/2017 Patient Education: Patient Medication Summary Completed 11/25/2017 Care Plan: X-RAY EXAM L-S SPINE 2/3 VWS LOINC : 43496-0 Pending 11/25/2017 Care Plan: X-RAY EXAM NECK SPINE 2-3 VW LOINC : 56095-5 Pending 11/25/2017 Appointment: Mraily Valerio WPtel: [address] [place], [place] [phone] (15 min) Moderate 11/02/2017 Visit Plan: Hypertension [...] Dr Ryan 07/09/2017 Appointment: Marily Valerio WPtel: [address] [place], [place] [phone] (15 min) Moderate 07/09/2017 Patient Education: Patient Medication Summary Completed 07/09/2017 Patient Education: Smoking and Tobacco Addiction Completed 07/09/2017 Appointment: Marily Valerio WPtel: [address] [place], [place] [phone] (15 min) Moderate 07/08/2017 Visit Plan: Gas and bloating-cut out dairy x 2 weeks-increase gas x to TID-call if symptoms uncontrolled Rash-rx for nystatin powder provided-keep clean/dry-call if does not resolve or if any worse 04/29/2017 Appointment: Marily Valerio WPtel: [address] [place], [place] [phone] (15 min) Moderate 04/29/2017 Patient Education: Patient [...] nicotine patches 01/07/2017 Appointment: Marily Valerio WPtel: [phone] [phone] (15 min) Moderate 01/07/2017 Patient Education: Patient Medication Summary Completed 01/07/2017 Patient Education: Smoking and Tobacco Addiction Completed 01/07/2017 Patient Education: Hypertension Completed 01/07/2017 Appointment: Marily Valerio WPtel: [phone] [phone] (30 min) Complex 01/05/2017 Visit Plan: [...] Ryan in 09/08/2016 Appointment: Marily Valerio WPtel: [phone] [phone] (15 min) Moderate 09/08/2016 Patient Education: [...] bone density 05/11/2016 Appointment: Marily Valerio WPtel: [address] [place], [place] [phone] (15 min) Moderate 05/11/2016 Patient Education: Patient [...] MRI LUMBAR SPINE W/O DYE LOINC : 27267-1 Cancelled 01/17/2016 Visit Plan: Continued Low back [...] they worsen. 12/18/2015 Appointment: Marily Valerio WPtel: [phone] [phone] (30 min) Complex 12/18/2015 Patient Education: Patient [...] they worsen. 12/16/2015 Appointment: Joy Flores WPtel: [phone] [phone] (15 min) Moderate 12/16/2015 Patient Education: Patient [...] to have left upper lobe removed at [facility] this week to schedule Tobacco use-no cigarettes [...] blood pressure readings at home. Arthritis of flco-oraf-vghzf mobic-monitor symptoms-check labs Left lung nodule- most recent scan shows slight increase in size and needs further evaluation- managed by Dr Corea-appt is this week 08/26/2015 Appointment: Marily Valerio WPtel: [phone] [phone] [place] (30 min) Complex 08/26/2015 Patient Education: Patient Medication Summary Completed 08/26/2015 Patient Education: Hypertension Completed 08/26/2015 Appointment: Teresa Gonzalez WPtel: [phone] [phone] (15 min) Moderate 08/15/2015 Appointment: Teresa Gonzalez WPtel: [phone] [phone] (15 min) Moderate 08/15/2015 Visit Plan: Hypertension [...] scan. 02/12/2015 Appointment: Teresa Gonzalez WPtel: [phone] [phone] Follow up 02/12/2015 Patient Education: Patient [...] bloating-use dicyclomine prn Elevated blood sugar-check Hgb N5A-org back on sweets/carbs 07/23/2014 Appointment: Follow up [...] home. 01/25/2014 Appointment: [facility]el[phone] Follow up 01/25/2014 Patient Education: Patient Medication [...] Mckeon. 10/23/2013 [facility]ment: [phone] Follow up 10/23/2013 Patient Education: Patient Medication [...] any worse. 08/21/2013 Appointment: Marily Valerio WPtel: [phone] [place] [address] Follow up 08/21/2013 Patient Education: Patient Medication [...] with Dr Combs as scheduled Tingling of qrkxvamabgn-mzkvfiho-clgtq labs including vitamin b12 and vitamin d Elevated blood sugar-check hgb a1c 07/20/2013 Appointment: Marily Valerio WPtel: [phone] [phone] Follow up 07/20/2013 Patient Education: Patient [...] 1 week before quit date. 06/22/2013 Appointment: TeodoroStevenie WPtel: [phone] [place] New Patient 06/22/2013 Patient Education: Patient [...] assist cessation. Anxiety-not well controlled-increase wellbutrin . Gas and bloating-cut out dairy x 2 weeks-increase gas x to TID-call if symptoms uncontrolled Rash-rx for nystatin powder provided-keep clean/dry-call if does not resolve or if any worse PATIENT IS TO CHECK BLOOD PRESSURE AND [...] blood pressure readings at home. Arthritis of jnma-xtnx-trhev mobic-monitor symptoms-check labs Left lung nodule-most recent scan shows slight increase in size and needs further evaluation-managed by Dr Corea-appt is this week Monitor your blood pressure at home and [...] start wellbutrin 1 week before quit date. . Hypertension - well controlled at home [...] EGD by Dr. Mckeon. Dr Mata at [facility] ( or wednesday) gabapentin 100mg at bedtime screening mammogram make an appt with Dr Herrera to discuss epidural injections . 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 Hypertension [...] nodule - Recommended repeat CT scan. . Medicare Exam - today we discussed [...] spine first and then consider vascular studies . Hypertension - well controlled - continue with current medications, continue with no added salt diet. Pt has been encouraged to exercise daily. The pt has been advised to call the office if there are any acute concerns about change in blood pressure readings at home. Lung cancer-PREM lobectomy 06/2017-followed by [facility] and Dr Ryan check Hbg A1C . Hypertension - well [...] bloating-use dicyclomine prn Elevated blood sugar-check Hgb H5O-nue back on sweets/carbs . Hypertension - well controlled - continue with current medications, continue with no added salt diet. Pt has been encouraged to exercise daily. The pt has been advised to call the office if there are any acute concerns about change in blood pressure readings at home. START WELLBUTRIN 75MG TWICE DAILY TO HELP [...] [facility] Tobacco use-no cigarettes since Wednesday-start wellbutrin to aide with cessation . Dysuria-vaginal burning-UA positive for blood and leukocystes today in the office-will send for culture and proceed as indicated. Diflucan sent to patient's pharmacy and instructed on use. Patient verbalized understanding of plan.
--- OUTSIDE RECORDS SUMMARY | 2019-03-31 09:07 | XMS REPORT | CCD ---
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 Unknown Has never used illegal drugs 06/22/2013 Allergies, Adverse Reactions, Alerts Substance Reaction Codes Entered Date Inactivated Date Status lisinopril cough RxNorm: 01182 06/22/2013 No Inactive Date Active SULFA (SULFONAMIDE ANTIBIOTICS) hives Unknown 06/22/2013 No Inactive Date Active Past Medical History Illness Codes Condition Status Onset Date Resolved Date Chronic obstructive pulmonary disease, unspecified ICD-9: 496 ICD-10: J44.9 Active 01/07/2017 Unknown Essential (primary) hypertension ICD-9: 401.9 ICD-10: I10 Active 05/10/2016 Unknown Malignant neoplasm of upper lobe, left bronchus or lung ICD-9: 162.3 ICD-10: C34.12 Active 12/08/2015 Unknown Mixed hyperlipidemia ICD- 9: 272.2 ICD-10: E78.2 Active 05/10/2016 Unknown Tobacco use ICD-9: 305.1 ICD-10: Z72.0 Active 02/09/2016 Unknown Encounter for immunization ICD-9: V04.81 ICD-10: Z23 Active 05/10/2016 Unknown Generalized anxiety disorder ICD-9: 300.02 ICD-10: F41.1 Active 05/10/2016 Unknown Other specified disorders of bone density and structure, multiple sites ICD-9: 733.90 ICD-10: M85.89 Active 05/10/2016 Unknown Low back pain ICD-9: 724.2 ICD-10: M54.5 Active 12/17/2015 Unknown Myalgia ICD-9: 729.1 ICD-10: M79.1 Active 12/17/2015 Unknown Pain in right hip ICD-9: 719.45 ICD-10: M25.551 Active 12/15/2015 Unknown Solitary pulmonary nodule ICD-9: 793.11 ICD-10: R91.1 Active 10/27/2015 Unknown Bilateral primary osteoarthritis of hip ICD-9: [...] hypertension ICD-9: 401.9 ICD-10: I10 05/10/2016 Active Malignant neoplasm of upper lobe, left bronchus or lung ICD-9: 162.3 ICD-10: C34.12 12/08/2015 Active Mixed hyperlipidemia ICD- 9: 272.2 ICD-10: E78.2 05/10/2016 Active Tobacco use ICD-9: 305.1 ICD-10: Z72.0 02/09/2016 Active Encounter for immunization ICD-9: V04.81 ICD-10: Z23 05/10/2016 Active Generalized anxiety disorder ICD-9: 300.02 ICD-10: F41.1 05/10/2016 Active Other specified disorders of bone density and structure, multiple sites ICD-9: 733.90 ICD-10: M85.89 05/10/2016 Active Low back pain ICD-9: 724.2 ICD-10: M54.5 12/17/2015 Active Myalgia ICD-9: 729.1 ICD-10: M79.1 12/17/2015 Active Pain in right hip ICD-9: 719.45 ICD-10: M25.551 12/15/2015 Active Solitary pulmonary nodule ICD-9: 793.11 ICD-10: R91.1 10/27/2015 Active Bilateral primary osteoarthritis of hip ICD-9: [...] Fill Instructions dicyclomine 10 mg capsule RxNorm: 273185 TAKE ONE CAPSULE BY MOUTH THREE TIMES A DAY NEEDED 02/04/2017 05/04/2017 Active amlodipine 10 mg tablet RxNorm: 468584 TAKE ONE TABLET BY MOUTH EVERY DAY 02/04/2017 10/31/2017 Active Fish Oil 1,000 mg capsule RxNorm: 1 Capsule(s) PO TID 01/07/2017 No Stop Date Active metoprolol tartrate 100 mg tablet RxNorm: 459097 1 Tablet(s) PO BID TAKE ONE TABLET BY MOUTH TWICE A DAY 01/07/2017 01/01/2018 Active Diovan 320 mg tablet RxNorm: 339166 TAKE ONE TABLET BY MOUTH EVERY DAY 11/05/2016 03/04/2017 Active Lipitor 10 mg tablet RxNorm: 987262 1 Tablet(s) PO every other day 09/08/2016 01/05/2017 Inactive dc livalo dicyclomine 10 mg capsule RxNorm: 834221 TAKE ONE CAPSULE BY MOUTH THREE TIMES A DAY NEEDED 07/30/2016 01/25/2017 Inactive Diovan 320 mg tablet RxNorm: 005690 TAKE ONE TABLET BY MOUTH EVERY DAY 06/15/2016 11/04/2016 Inactive Lipitor 10 mg tablet RxNorm: 533005 1 Tablet(s) PO every other day 05/25/2016 05/24/2016 Inactive dc livalo Lipitor 10 mg tablet RxNorm: 068655 1 Tablet(s) PO every other day 05/25/2016 09/07/2016 Inactive dc livalo Livalo 2 mg tablet RxNorm: 491725 1 Tablet(s) PO daily 05/20/2016 05/19/2016 Inactive Livalo 2 mg tablet RxNorm: 161108 1 Tablet(s) PO daily 05/20/2016 05/24/2016 Inactive Celexa 10 mg tablet RxNorm: 487318 1 Tablet(s) PO daily 02/10/2016 04/09/2016 Inactive amlodipine 10 mg tablet RxNorm: 115874 TAKE ONE TABLET BY MOUTH EVERY DAY 02/03/2016 04/27/2017 Active amlodipine 10 mg tablet RxNorm: 725140 TAKE ONE TABLET BY MOUTH EVERY DAY 02/03/2016 02/02/2016 Inactive amlodipine 10 mg tablet RxNorm: 978624 TAKE ONE TABLET BY MOUTH EVERY DAY 02/03/2016 01/27/2017 Inactive metoprolol tartrate 100 mg tablet RxNorm: 721505 TAKE ONE TABLET BY MOUTH TWICE A DAY 2016 01/06/2017 Inactive Diovan 320 mg tablet RxNorm: 993655 TAKE ONE TABLET BY MOUTH EVERY DAY 12/19/2015 06/14/2016 Inactive tramadol 50 mg tablet RxNorm: 273466 1-2 Tablet(s) PO Q6 PRN 12/09/2015 No Stop Date Active Wellbutrin XL 150 mg 24 hr tablet, extended release RxNorm: 244530 1 Tablet(s) PO daily 12/09/2015 02/09/2016 Inactive Mobic 7.5 mg tablet RxNorm: 549041 TAKE ONE TABLET BY MOUTH DAILY 11/11/2015 01/09/2016 Inactive dicyclomine 10 mg capsule RxNorm: 752317 TAKE ONE CAPSULE BY MOUTH THREE TIMES A DAY NEEDED 11/11/2015 07/29/2016 Inactive Wellbutrin 75 mg tablet RxNorm: 689732 1 Tablet(s) PO BID 10/28/2015 12/08/2015 Inactive simvastatin 20 mg tablet RxNorm: 650341 TAKE ONE TABLET BY MOUTH EVERY DAY 09/05/2015 2016 Inactive Mobic 7.5 mg tablet RxNorm: 282828 1 Tablet(s) PO daily 08/26/2015 11/10/2015 Inactive estradiol 0.5 mg tablet RxNorm: 840931 TAKE ONE TABLET BY MOUTH EVERY DAY 06/11/2015 03/06/2016 Inactive amlodipine 10 mg tablet RxNorm: 841672 TAKE ONE TABLET BY MOUTH EVERY DAY 04/19/2015 01/13/2016 Inactive dicyclomine 10 mg capsule RxNorm: 902703 TAKE ONE CAPSULE BY MOUTH THREE TIMES A DAY NEEDED 04/19/2015 10/15/2015 Inactive simvastatin 20 mg tablet RxNorm: 609136 TAKE ONE TABLET BY MOUTH EVERY DAY 02/21/2015 08/19/2015 Inactive Diovan 320 mg tablet RxNorm: 843455 TAKE ONE TABLET BY MOUTH EVERY DAY 12/19/2014 12/18/2015 Inactive cephalexin 500 mg capsule RxNorm: 730967 1 Capsule(s) PO TID 11/13/2014 11/19/2014 Inactive prednisone 10 mg tablet RxNorm: 196840 3 Tablet(s) PO daily 11/13/2014 11/17/2014 Inactive prednisone 10 mg tablet RxNorm: 076308 3 Tablet(s) PO daily 11/12/2014 11/12/2014 Inactive Kenalog 40 mg/mL suspension for injection RxNorm: 8232088 Milliliter(s) Inj 11/12/2014 11/12/2014 Inactive cephalexin 500 mg capsule RxNorm: 697654 1 Capsule(s) PO TID 11/12/2014 11/12/2014 Inactive ceftriaxone 500 mg solution for injection RxNorm: 1933589 Inj 11/12/2014 11/12/2014 Inactive dicyclomine 10 mg capsule RxNorm: 766500 TAKE ONE CAPSULE BY MOUTH THREE TIMES A DAY NEEDED 11/08/2014 04/18/2015 Inactive metoprolol tartrate 100 mg tablet RxNorm: 739012 TAKE ONE TABLET BY MOUTH TWICE A DAY 10/18/2014 2015 Inactive metoprolol tartrate 100 mg tablet RxNorm: 642828 1 Tablet(s) PO BID 10/18/2014 10/12/2015 Inactive simvastatin 20 mg tablet RxNorm: 977460 TAKE ONE TABLET BY MOUTH EVERY DAY 08/21/2014 02/16/2015 Inactive Diovan 320 mg tablet RxNorm: 933709 TAKE ONE TABLET BY MOUTH EVERY DAY 08/21/2014 12/18/2014 Inactive Carafate 1 gram tablet RxNorm: 238032 1 Tablet(s) PO AC & HS MIX WITH 30ML WATER 07/23/2014 10/20/2014 Inactive dissolve in water and drink as slurry dicyclomine 10 mg capsule RxNorm: 911530 1 Capsule(s) PO TID PRN 07/23/2014 10/20/2014 Inactive simvastatin 20 mg tablet RxNorm: 886727 TAKE ONE TABLET BY MOUTH EVERY DAY 06/07/2014 08/20/2014 Inactive estradiol 0.5 mg tablet RxNorm: 896581 TAKE ONE TABLET BY MOUTH EVERY DAY 05/16/2014 05/10/2015 Inactive amlodipine 10 mg tablet RxNorm: 420946 TAKE ONE TABLET BY MOUTH EVERY DAY 05/16/2014 04/18/2015 Inactive Diovan 320 mg tablet RxNorm: 390261 TAKE ONE TABLET BY MOUTH EVERY DAY 03/26/2014 08/20/2014 Inactive Diflucan 150 mg tablet RxNorm: 954462 1 Tablet(s) PO daily 03/21/2014 03/27/2014 Inactive simvastatin 20 mg tablet RxNorm: 007725 TAKE ONE TABLET BY MOUTH EVERY DAY 03/02/2014 05/30/2014 Inactive estradiol 0.5 mg tablet RxNorm: 932067 TAKE ONE TABLET BY MOUTH EVERY DAY 02/16/2014 05/15/2014 Inactive amlodipine 10 mg tablet RxNorm: 298855 TAKE ONE TABLET BY MOUTH EVERY DAY 02/16/2014 05/15/2014 Inactive pantoprazole 40 mg tablet,delayed release RxNorm: 638916 2 Tablet(s) PO daily 01/25/2014 02/23/2014 Inactive simvastatin 20 mg tablet RxNorm: 460065 Tablet(s) PO TAKE ONE TABLET BY MOUTH EVERY DAY 11/30/2013 03/01/2014 Inactive amlodipine 10 mg tablet RxNorm: 401972 Tablet(s) PO TAKE ONE TABLET BY MOUTH EVERY DAY 11/16/2013 02/15/2014 Inactive metoprolol tartrate 100 mg tablet RxNorm: 546392 1 Tablet(s) PO BID 10/23/2013 10/17/2014 Inactive Diovan 320 mg tablet RxNorm: 311047 Tablet(s) PO TAKE ONE TABLET BY MOUTH EVERY DAY 09/28/2013 03/25/2014 Inactive Carafate 1 gram tablet RxNorm: 328179 1 Tablet(s) PO TID MIX WITH 30ML WATER 09/20/2013 12/18/2013 Inactive estradiol 0.5 mg tablet RxNorm: 858333 1 Tablet(s) PO daily 08/21/2013 02/15/2014 Inactive amlodipine 10 mg tablet RxNorm: 029443 1 Tablet(s) PO daily 08/21/2013 11/15/2013 Inactive simvastatin 20 mg tablet RxNorm: 540263 1 Tablet(s) PO daily 08/21/2013 11/18/2013 Inactive Diovan 320 mg tablet RxNorm: 543026 1 Tablet(s) PO daily 08/21/2013 09/19/2013 Inactive Carafate 1 gram tablet RxNorm: 587221 1 Tablet(s) PO TID MIX WITH 30ML WATER 08/21/2013 09/19/2013 Inactive Diovan 320 mg tablet RxNorm: 275283 1 Tablet(s) PO daily 07/20/2013 08/18/2013 Inactive amlodipine 10 mg tablet RxNorm: 806979 1 Tablet(s) PO daily 07/20/2013 08/18/2013 Inactive estradiol 0.5 mg tablet RxNorm: 119207 1 Tablet(s) PO daily 07/20/2013 08/18/2013 Inactive metoprolol tartrate 100 mg tablet RxNorm: 398357 1 Tablet(s) PO BID 06/22/2013 10/22/2013 Inactive Wellbutrin XL 150 mg 24 hr tablet, extended release RxNorm: 262718 1 Tablet(s) PO daily 06/22/2013 07/19/2013 Inactive calcium 500 mg tablet RxNorm: 2 Tablet(s) PO BID No Start Date Active glucosamine and zbwwafvxszl-yfhncgqk-lnnj#3 oral RxNorm: 2837 oral No Start Date Active aspirin 81 mg tablet RxNorm: 038341 1 Tablet(s) PO daily No Start Date Active Probiotic oral RxNorm: oral No Start Date Active Vitamin D3 1,000 unit capsule RxNorm: 010965 1 Capsule(s) PO daily No Start Date Active simvastatin 20 mg tablet RxNorm: 073101 1 Tablet(s) PO daily No Start Date 08/20/2013 Inactive hyoscyamine 0.125 mg sublingual tablet RxNorm: 7834738 1 Tablet(s) SL TID No Start Date 07/22/2014 Inactive metoprolol tartrate 100 mg tablet RxNorm: 015671 1 Tablet(s) PO daily No Start Date 06/21/2013 Inactive amlodipine 10 mg tablet RxNorm: 443237 1 Tablet(s) PO daily No Start Date 07/19/2013 Inactive Diovan 320 mg tablet RxNorm: 550229 1 Tablet(s) PO daily No Start Date 07/19/2013 Inactive Fish Oil 1,000 mg capsule RxNorm: 1 Capsule(s) PO BID No Start Date 01/06/2017 Inactive omeprazole 20 mg tablet,delayed release RxNorm: 292543 1 Tablet(s) PO daily No Start Date 01/25/2014 Inactive estradiol 0.5 mg tablet RxNorm: 388217 1 Tablet(s) PO daily No Start Date 07/19/2013 Inactive Medication Administered Medication Codes Instructions Start Date Status Kenalog 40 mg/mL suspension for injection RxNorm: 2315430 Milliliter 11/12/2014 No longer Active ceftriaxone 500 mg solution for injection RxNorm: 3790213 11/12/2014 No longer Active Immunizations Vaccine Codes Date Status Influenza CVX: 141 05/11/2016 completed Pneumococcal (Adult) CVX: 133 05/11/2016 completed Influenza CVX: 141 08/13/2013 completed Assessments Condition Codes Effective Dates Chronic obstructive pulmonary disease, unspecified ICD-10: J44.9 ICD-9: 496 01/07/2017 Essential (primary) hypertension ICD-10: I10 ICD-9: 401.9 01/07/2017 Malignant neoplasm of upper lobe, left bronchus or lung ICD-10: C34.12 ICD-9: 162.3 01/07/2017 Mixed hyperlipidemia ICD-10: E78.2 ICD-9: 272.2 09/08/2016 Tobacco use ICD-10: Z72.0 ICD-9: 305.1 09/08/2016 Encounter for immunization ICD-10: Z23 ICD-9: V04.81 05/11/2016 Generalized anxiety disorder ICD-10: F41.1 ICD-9: 300.02 05/11/2016 Other specified disorders of bone density and structure, multiple sites ICD-10: M85.89 ICD-9: 733.90 05/11/2016 Low back pain ICD-10: M54.5 ICD-9: 724.2 12/18/2015 Myalgia ICD-10: M79.1 ICD-9: 729.1 12/18/2015 Pain in right hip ICD-10: M25.551 ICD-9: 719.45 12/16/2015 Solitary pulmonary nodule ICD-10: R91.1 ICD-9: 793.11 10/28/2015 Bilateral primary osteoarthritis of hip ICD-10: M16.0 [...] Visit Reason For Visit Effective Dates Notes blood pressure followup 01/07/2017 blood pressure followup [...] Result Date Cbc With Differential Ord2 WBC 4.62 K/ul 05/11/2016 Cbc With Differential Ord2 RBC 4.69 M/ul 05/11/2016 Cbc With Differential Ord2 HGB 14.9 g/dl 05/11/2016 Cbc With Differential Ord2 Neut% 49.9 % 05/11/2016 Cbc With Differential Ord2 HCT 45.9 % 05/11/2016 Cbc With Differential Ord2 MCV 97.9 fl 05/11/2016 Cbc With Differential Ord2 Lymph% 38.1 % 05/11/2016 Cbc With Differential Ord2 [place]% 9.5 % 05/11/2016 Cbc With Differential Ord2 MCH 31.8 pg 05/11/2016 Cbc With Differential Ord2 MCHC 32.5 pg 05/11/2016 Cbc With Differential Ord2 Eos% 1.9 % 05/11/2016 Cbc With Differential Ord2 Baso% 0.6 % 05/11/2016 Cbc With Differential Ord2 PLT 302 K/ul 05/11/2016 Cbc With Differential Ord2 Neut ABS# 2.30 K/ul 05/11/2016 Cbc With Differential Ord2 RDW 13.8 % 05/11/2016 Cbc With Differential Ord2 Lymph ABS# 1.76 K/ul 05/11/2016 Cbc With Differential Ord2 [place] ABS# 0.4 K/ul 05/11/2016 Cbc With Differential Ord2 Eos ABS# 0.1 K/ul 05/11/2016 Cbc With Differential Ord2 Baso ABS# 0.0 K/ul 05/11/2016 Comp Metabolic Cxl409 NA 139 mEq/L 05/11/2016 Comp Metabolic Pvg896 K 4.6 mEq/L 05/11/2016 Comp Metabolic Dty485 CL 104 mEq/L 05/11/2016 Comp Metabolic Hsq970 CO2 30.0 mEq/L 05/11/2016 Comp Metabolic Mud199 ANION GAP 10 05/11/2016 Comp Metabolic Egj280 GLUCOSE 113 mg/dL 05/11/2016 Comp Metabolic Hln415 Creat 0.8 mg/dL 05/11/2016 Comp Metabolic Rgi163 eGFR 74 ml/min/1.73m2 05/11/2016 Comp Metabolic Lsr684 BUN 16 mg/dL 05/11/2016 Comp Metabolic Wsd554 B/C Ratio 19.8 Ratio 05/11/2016 Comp Metabolic Ghc993 CALCIUM 10.1 mg/dL 05/11/2016 Comp Metabolic Fyt948 ALK PHOS 44 U/L 05/11/2016 Comp Metabolic Pgy522 AST(SGOT) 20 U/L 05/11/2016 Comp Metabolic Jje550 ALT(SGPT) 17 U/L 05/11/2016 Comp Metabolic Def145 BILI T 0.4 mg/dL 05/11/2016 Comp Metabolic Ziz224 ALBUMIN 4.1 g/dL 05/11/2016 Comp Metabolic Pmd742 TPRO 6.5 g/dL 05/11/2016 Comp Metabolic Mfx564 GLOB 2.4 g/dL 05/11/2016 Comp Metabolic Why527 A/G Ratio 1.8 Ratio 05/11/2016 Comp Metabolic Qwl541 Osmo 280 mOsmo 05/11/2016 Tsh Ord6 hTSH II 0.96 uIU/mL 05/11/2016 Lipid Ord30 CHOL 283 mg/dL 05/11/2016 Lipid Ord30 HDL 53.0 mg/dl 05/11/2016 Lipid Ord30 TRIG 144 mg/dL 05/11/2016 Lipid Ord30 LDL 201 mg/dL 05/11/2016 Lipid Ord30 C/HDL 5.3 Ratio 05/11/2016 C-Reactive Protein Qnt Crqnt CRP 0.5 mg/dl 12/18/2015 Vitamin D 25 Oh Kah3841 VITAMIN D, 25 HYDROXY 84.50 ng/mL 12/18/2015 Comp Metabolic Yvr024 NA 139 mEq/L 12/18/2015 Comp Metabolic Riv379 K 3.8 mEq/L 12/18/2015 Comp Metabolic Qho912 CL 103 mEq/L 12/18/2015 Comp Metabolic Tsq924 CO2 31.0 mEq/L 12/18/2015 Comp Metabolic Zfb259 ANION GAP 9 12/18/2015 Comp Metabolic Ffw862 GLUCOSE 107 mg/dL 12/18/2015 Comp Metabolic Gal842 Creat 0.8 mg/dL 12/18/2015 Comp Metabolic Lun059 eGFR 80 ml/min/1.73m2 12/18/2015 Comp Metabolic Kgq212 BUN 19 mg/dL 12/18/2015 Comp Metabolic Jow625 B/C Ratio 25.0 Ratio 12/18/2015 Comp Metabolic Ktp609 CALCIUM 9.1 mg/dL 12/18/2015 Comp Metabolic Woz421 ALK PHOS 42 U/L 12/18/2015 Comp Metabolic Wgb383 AST(SGOT) 17 U/L 12/18/2015 Comp Metabolic Pnn430 ALT(SGPT) 18 U/L 12/18/2015 Comp Metabolic Qhb688 BILI T 0.3 mg/dL 12/18/2015 Comp Metabolic Lad967 ALBUMIN 3.8 g/dL 12/18/2015 Comp Metabolic Zdr580 TPRO 5.9 g/dL 12/18/2015 Comp Metabolic Nqx640 GLOB 2.1 g/dL 12/18/2015 Comp Metabolic Ccf426 A/G Ratio 1.8 Ratio 12/18/2015 Comp Metabolic Jlu943 Osmo 280 mOsmo 12/18/2015 Sed Rate Ord21 ESR 9 mm/hr 12/18/2015 Cbc With Differential Ord2 WBC 5.49 K/ul 12/18/2015 Cbc With Differential Ord2 RBC 4.12 M/ul 12/18/2015 Cbc With Differential Ord2 HGB 13.2 g/dl 12/18/2015 Cbc With Differential Ord2 HCT 40.2 % 12/18/2015 Cbc With Differential Ord2 Neut% 61.5 % 12/18/2015 Cbc With Differential Ord2 Lymph% 26.4 % 12/18/2015 Cbc With Differential Ord2 MCV 97.6 fl 12/18/2015 Cbc With Differential Ord2 [place]% 9.3 % 12/18/2015 Cbc With Differential Ord2 MCH 32.0 pg 12/18/2015 Cbc With Differential Ord2 MCHC 32.8 pg 12/18/2015 Cbc With Differential Ord2 Eos% 2.4 % 12/18/2015 Cbc With Differential Ord2 PLT 267 K/ul 12/18/2015 Cbc With Differential Ord2 Baso% 0.4 % 12/18/2015 Cbc With Differential Ord2 Neut ABS# 3.38 K/ul 12/18/2015 Cbc With Differential Ord2 RDW 13.5 % 12/18/2015 Cbc With Differential Ord2 Lymph ABS# 1.45 K/ul 12/18/2015 Cbc With Differential Ord2 [place] ABS# 0.5 K/ul 12/18/2015 Cbc With Differential [...] 15.1 g/dl 09/02/2015 Cbc With Differential Ord2 Neut% 63.6 % 09/02/2015 Cbc With Differential Ord2 HCT 46.3 % 09/02/2015 Cbc With Differential Ord2 MCV 96.9 fl 09/02/2015 Cbc With Differential Ord2 Lymph% 25.9 % 09/02/2015 Cbc With Differential Ord2 MCH 31.6 pg 09/02/2015 Cbc With Differential Ord2 [place]% 8.8 % 09/02/2015 Cbc With Differential Ord2 [...] 1.53 K/ul 09/02/2015 Cbc With Differential Ord2 [place] ABS# 0.5 K/ul 09/02/2015 Cbc With Differential Ord2 Eos ABS# 0.1 K/ul 09/02/2015 Cbc With Differential Ord2 Baso ABS# 0.0 K/ul 09/02/2015 Cbc With Differential Ord2 New Analyzer Notice Please note new ref ranges starting 08-14-2015 due to implemntation of new five part differential hematolgy analyzer. 09/02/2015 Tsh Ord6 hTSH II 1.41 uIU/mL 09/02/2015 Comp Metabolic Otw298 NA 136 mEq/L 09/02/2015 Comp Metabolic Kgc849 K 4.5 mEq/L 09/02/2015 Comp Metabolic Hyf343 CL 103 mEq/L 09/02/2015 Comp Metabolic Vqk079 CO2 27.0 mEq/L 09/02/2015 Comp Metabolic Vcd232 ANION GAP 11 09/02/2015 Comp Metabolic Rxb595 GLUCOSE 109 mg/dL 09/02/2015 Comp Metabolic Div725 Creat 1.0 mg/dL 09/02/2015 Comp Metabolic Ydm484 eGFR 62 ml/min/1.73m2 09/02/2015 Comp Metabolic Qep278 BUN 21 mg/dL 09/02/2015 Comp Metabolic Tso758 B/C Ratio 22.1 Ratio 09/02/2015 Comp Metabolic Hqc761 CALCIUM 9.3 mg/dL 09/02/2015 Comp Metabolic Vzw349 ALK PHOS 37 U/L 09/02/2015 Comp Metabolic Und806 AST(SGOT) 19 U/L 09/02/2015 Comp Metabolic Dxh559 ALT(SGPT) 16 U/L 09/02/2015 Comp Metabolic Pes820 BILI T 0.4 mg/dL 09/02/2015 Comp Metabolic Dbr776 ALBUMIN 4.1 g/dL 09/02/2015 Comp Metabolic Ywq507 TPRO 6.3 g/dL 09/02/2015 Comp Metabolic Onm655 GLOB 2.2 g/dL 09/02/2015 Comp Metabolic Zar014 A/G Ratio 1.8 Ratio 09/02/2015 Comp Metabolic Rch685 Osmo 276 mOsmo 09/02/2015 A1C HPLC 1006529 A1C HPLC 47893-0 5.6 % 07/23/2014 VIT D TOTL 1393111 VIT D TOTL 52 NG/ML 07/20/2013 GFR CALC 3305290 GFR AA >60 ML/MIN 07/20/2013 GFR CALC 0129073 GFR NON-AA >60 ML/MIN 07/20/2013 CBC 3423110 WBC 5.9 10e9/L 07/20/2013 CBC 1552620 RBC 4.79 10e12/L 07/20/2013 CBC 8511475 HGB 15.5 g/dL 07/20/2013 CBC 4637730 HCT DET 46.1 % 07/20/2013 CBC 1227783 MCV 96.2 fL 07/20/2013 CBC 6368889 MCH 32.4 pg 07/20/2013 CBC 7214370 MCHC 33.6 g/dL 07/20/2013 CBC 3891013 PLT 286 10e9/L 07/20/2013 CBC 9319059 MPV 10.8 fL 07/20/2013 CBC 6991707 ERINN % 66.1 % 07/20/2013 CBC 0362551 LY % 24.3 % 07/20/2013 CBC 1217106 MON % 8.1 % 07/20/2013 CBC 9893791 EOS % 1.2 % 07/20/2013 CBC 8142574 BASO % 0.3 % 07/20/2013 CBC 9407486 RDW 12.7 % 07/20/2013 CBC 6172880 ABS ERINN 3.90 10e9/L 07/20/2013 CBC 2646203 ABS LYMPH 1.43 10e9/L 07/20/2013 CBC 3408556 ABS MONO 0.48 10e9/L 07/20/2013 CBC 5782315 ABS EOS 0.07 10e9/L 07/20/2013 CBC 6672983 ABS BASO 0.02 10e9/L 07/20/2013 CBC 7357272 RDW-SD 44.1 fL 07/20/2013 A1C HPLC 8884309 A1C HPLC 54562-4 5.9 % 07/20/2013 LIPID GRP HDL TEST 54 MG/DL 07/20/2013 LIPID GRP TRIG 98 MG/DL 07/20/2013 LIPID GRP TEST LDL 95 MG/DL 07/20/2013 LIPID GRP CHOL 169 MG/DL 07/20/2013 LIPID GRP RCHOL/HDL 3.13 RATIO 07/20/2013 TSH 5038724 TSH 1.032 uIU/ML 07/20/2013 CHEM 14 1031640 AST 18 U/L 07/20/2013 CHEM 14 2614676 ALT 13 IU/L 07/20/2013 CHEM 14 9417532 BUN 19 MG/DL 07/20/2013 CHEM 14 9016285 ALBUMIN 4.5 GM/DL 07/20/2013 CHEM 14 1687139 CHLORIDE 105 MMOL/L 07/20/2013 CHEM 14 5601185 BILI TOT 0.5 MG/DL 07/20/2013 CHEM 14 5005041 ALK PHOS 40 U/L 07/20/2013 CHEM 14 1518063 SODIUM 137 MMOL/L 07/20/2013 CHEM 14 8516977 CREATININE 0.76 MG/DL 07/20/2013 CHEM 14 1407934 CALCIUM 10.0 MG/DL 07/20/2013 CHEM 14 3322527 POTASSIUM 4.6 MMOL/L 07/20/2013 CHEM 14 5581419 PROT TOT 6.5 GM/DL 07/20/2013 CHEM 14 6888804 GLUCOSE 118 MG/DL 07/20/2013 CHEM 14 0707612 BICARB 26 MMOL/L 07/20/2013 CHEM 14 9643152 ANION GAP 6 MEQ/L 07/20/2013 VIT B 12 1748780 VIT B 12 492 PG/ML 07/20/2013 Review of Systems System Result Effective Dates Constitutional No recent illness 01/07/2017 Constitutional No [...] clear 08/21/2013 None Full Exam - General 1995 Eyes conjunctiva/eyelids Overall: cornea clear 08/21/2013 None [...] occlusion 07/20/2013 None Full Exam - General 1995 [...] lesions 06/22/2013 None Procedures Procedure Codes Date TOBACCO-USE MOLDED 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 OPERATOR 3-[address]: 634541373 CPT-4: K3884Cntapmv 09/08/2016 ADMIN INFLUENZA VIRUS VAC CPT-4: D3883Hbiejzq 05/11/2016 PNEUMOCOCCAL VACC 13 SAULO IM Formatting Model/CDA Sections, Assigned to/Rafia Cuadra SNOMED CT: 70146306 CPT-4: 91317Qhcwici 05/11/2016 ADMIN PNEUMOCOCCAL VACCINE SNOMED CT: 62178212 CPT-4: H1458Iwidosv 05/11/2016 FLU VACC 4 SAULO 3 YRS PLUS IM Formatting Model/CDA Sections, Assigned to/Rafia Cuadra SNOMED CT: 73298802 CPT-4: 38576Bkwudjh 05/11/2016 TOBACCO-USE MOLDED GOODS CONTROLS OPERATOR 3-[address]: 910996012 CPT-4: U5328Xxnbfdl 02/10/2016 TRIAMCINOLONE ACET INJ NOS CPT-4: W9219Uyxetvo 12/16/2015 DRAIN/INJECT JOINT/BURSA CPT-4: 58887Xwthcgv 12/16/2015 TOBACCO-USE MOLDED GOODS CONTROLS OPERATOR 3-[address]: 716766638 CPT-4: U0507Qulnjtz 12/09/2015 TOBACCO-USE MOLDED GOODS CONTROLS OPERATOR 3-[address]: 514416295 CPT-4: I8541Kfyvzlu 10/28/2015 THER/PROPH/DIAG INJ SC/IM CPT-4: 10722Oepaiuv 11/12/2014 TRIAMCINOLONE ACET INJ NOS CPT-4: Q1439Gxajgzl 11/12/2014 ROCEPHIN, PER 250 MG CPT-4: D7245Mhtslub 11/12/2014 ROUTINE VENIPUNCTURE CPT-4: 83133Cidcmwu 07/23/2014 URINALYSIS NONAUTO W/O SCOPE CPT-4: 92636Yobdiis 03/21/2014 ROUTINE VENIPUNCTURE CPT-4: 60945Wkphpdb 07/20/2013 PRESCRIP TRANSMIT VIA ERX SY CPT-4: Y3839Bxnkftp 07/20/2013 PRESCRIP TRANSMIT VIA ERX SY CPT-4: U2782Hlpdqso 06/22/2013 Vital Signs Date Vital 01/07/2017 Blood Pressure 1: 140/70 Code: 8480-6 BMI: 28.8 Code: 21645-8 Heart Rate 1: 68 bpm Height: 5'5" SpO2: 96% Weight: 173 lbs 09/08/2016 Blood Pressure 1: 134/70 Code: 8480-6 BMI: 29.1 Code: 94326-6 Heart Rate 1: 68 bpm Height: 5'5" SpO2: 99% Weight: 175 lbs 05/11/2016 Blood Pressure 1: 138/88 Code: 8480-6 BMI: 29.2 Code: 81925-5 Heart Rate 1: 67 bpm Height: 5'6" SpO2: 95% Weight: 178 lbs 02/10/2016 Blood Pressure 1: 148/82 Code: 8480-6 BMI: 28.8 Code: 13411-9 Heart Rate 1: 63 bpm Height: 5'6" SpO2: 97% Weight: 176 lbs 12/18/2015 Blood Pressure 1: 130/78 Code: 8480-6 BMI: 28.8 Code: 32001-8 Heart Rate 1: 66 bpm Height: 5'6" SpO2: 98% Weight: 176 lbs 12/16/2015 Blood Pressure 1: 162/100 Code: 8480-6 BMI: 28.8 Code: 34436-3 Heart Rate 1: 65 bpm Height: 5'6" SpO2: 98% Weight: 176 lbs 12/09/2015 Blood Pressure 1: 142/70 Code: 8480-6 BMI: 28.4 Code: 50344-1 Heart Rate 1: 65 bpm Height: 5'6" SpO2: 96% Weight: 173 lbs 10/28/2015 Blood Pressure 1: 160/82 Code: 8480-6 Blood Pressure 1: 140/86 Code: 8480-6 BMI: 28.5 Code: 18345-2 Heart Rate 1: 60 bpm Height: 5'6" SpO2: 96% Weight: 174 lbs 08/26/2015 Blood Pressure 1: 158/80 Code: 8480-6 Blood Pressure 1: 148/88 Code: 8480-6 BMI: 28.0 Code: 40011-0 Heart Rate 1: 68 bpm Height: 5'6" SpO2: 98% Weight: 171 lbs 02/12/2015 Blood Pressure 1: 136/74 Code: 8480-6 BMI: 25.9 Code: 80413-4 Heart Rate 1: 61 bpm Height: 5'6" SpO2: 97% Weight: 158 lbs 11/12/2014 Blood Pressure 1: 140/82 Code: 8480-6 BMI: 25.9 Code: 78788-7 Heart Rate 1: 64 bpm Height: 5'6" SpO2: 97% Weight: 158 lbs 07/23/2014 Blood Pressure 1: 138/88 Code: 8480-6 BMI: 25.6 Code: 70061-6 Heart Rate 1: 57 bpm Height: 5'6" SpO2: 95% Weight: 156 lbs 03/21/2014 Blood Pressure 1: 124/64 Code: 8480-6 Heart Rate 1: 64 bpm Weight: 147 lbs 01/25/2014 Blood Pressure 1: 130/70 Code: 8480-6 BMI: 24.4 Code: 28221-9 Height: 5'6" Weight: 149 lbs 10/23/2013 Blood Pressure 1: 152/82 Code: 8480-6 BMI: 25.7 Code: 26704-5 Heart Rate 1: 60 bpm Height: 5'6" Weight: 157 lbs 08/21/2013 Blood Pressure 1: 142/90 Code: 8480-6 BMI: 25.9 Code: 97244-2 Heart Rate 1: 56 bpm Height: 5'6" Weight: 158 lbs 07/20/2013 Blood Pressure 1: 164/80 Code: 8480-6 BMI: 26.2 Code: 64841-4 Heart Rate 1: 60 bpm Height: 5'6" SpO2: 98% Weight: 160 lbs 06/22/2013 Blood Pressure 1: 140/84 Code: 8480-6 BMI: 28.2 Code: 28897-6 Heart Rate 1: 60 bpm Height: 5'6" Weight: 172 lbs Functional Status No Functional Status data History of Present Illness Symptom Name Status Result Effective Date Notes blood pressure followup Quality chronic 01/07/2017 None [...] data Encounters Encounter Performer Location Codes Date ([id number]) 50796 EST. PATIENT, LEVEL III Diagnosis: Essential (primary) hypertension[ICD10: I10] Diagnosis: Malignant neoplasm of upper lobe, left bronchus or lung[ICD10: C34.12] Diagnosis: Chronic obstructive pulmonary disease, unspecified[ICD10: J44.9] Marily Gonzalez MD, [facility] CPT-4: 78583 01/07/2017 ([id number]) 69650 EST. PATIENT, LEVEL IV Diagnosis: Essential (primary) hypertension[ICD10: I10] Diagnosis: Mixed hyperlipidemia[ICD10: E78.2] Diagnosis: Tobacco use[ICD10: Z72.0] Diagnosis: Malignant neoplasm of upper lobe, left bronchus or lung[ICD10: C34.12] Marily Gonzalez MD, [facility] CPT-4: 50976 09/08/2016 ([id number]) 43129 EST. PATIENT, LEVEL IV Diagnosis: Essential (primary) hypertension[ICD10: I10] Diagnosis: Mixed hyperlipidemia[ICD10: E78.2] Diagnosis: Generalized anxiety disorder[ICD10: F41.1] Diagnosis: Other specified disorders of bone density and structure, multiple sites[ICD10: M85.89] Marily Gonzalez MD, [facility] CPT-4: 71039 05/11/2016 ([id number]) 09407 EST. PATIENT, LEVEL IV Diagnosis: Essential (primary) hypertension[ICD10: I10] Diagnosis: Generalized anxiety disorder[ICD10: F41.1] Diagnosis: Tobacco use[ICD10: Z72.0] Marily Gonzalez MD, [facility] CPT-4: 37530 02/10/2016 29261 EST. PATIENT, LEVEL IV Diagnosis: Myalgia[ICD10: M79.1] Diagnosis: Low back pain[ICD10: M54.5] Joy Gonzalez MD, [facility] CPT-4: 60076 12/18/2015 84634 EST. PATIENT, LEVEL IV Diagnosis: Low back pain[ICD10: M54.5] Diagnosis: Pain in right hip[ICD10: M25.551] Joy Gonzalez MD, [facility] CPT-4: 26920 12/16/2015 ([id number]) 43132 EST. PATIENT, LEVEL IV Diagnosis: Low back pain[ICD10: M54.5] Diagnosis: Malignant neoplasm of upper lobe, left bronchus or lung[ICD10: C34.12] Diagnosis: Tobacco use[ICD10: Z72.0] Diagnosis: Essential (primary) hypertension[ICD10: I10] Diagnosis: Generalized anxiety disorder[ICD10: F41.1] Marily Gonzalez MD, [facility] CPT-4: 32548 12/09/2015 ([id number]) 18563 EST. PATIENT, LEVEL IV Diagnosis: Essential (primary) hypertension[ICD10: I10] Diagnosis: Tobacco use[ICD10: Z72.0] Diagnosis: Solitary pulmonary nodule[ICD10: R91.1] Mairly Gonzalez MD, [facility] CPT-4: 30409 10/28/2015 ([id number]) 27814 EST. PATIENT, LEVEL IV Diagnosis: Essential (primary) hypertension[ICD10: I10] Diagnosis: Bilateral primary osteoarthritis of hip[ICD10: M16.0] Diagnosis: Solitary pulmonary nodule[ICD10: R91.1] Marily Gonzalez MD, [facility] CPT-4: 66315 08/26/2015 ([id number]) 69120 EST. PATIENT, LEVEL IV Diagnosis: ESSENTIAL HYPERTENSION[ICD9: 401.9] Diagnosis: Pulmonary nodule[ICD9: 793.11] Teresa Gonzalez MD [facility] CPT-4: 08796 02/12/2015 ([id number]) 90345 EST. PATIENT, LEVEL III Diagnosis: ACUTE BRONCHITIS[ICD9: 466.0] Diagnosis: ALLERGIC RHINITIS[ICD9: 477.9] Teresa Gonzalez MD, [facility] CPT-4: 74510 11/12/2014 ([id number]) 68314 EST. PATIENT, LEVEL IV Diagnosis: ESOPHAGEAL REFLUX[ICD9: 530.81] Diagnosis: ESSENTIAL HYPERTENSION[ICD9: 401.9] Diagnosis: Elevated blood sugar[ICD9: 790.29] Marily Gonzalez MD, [facility] CPT- 4: 17624 07/23/2014 ([id number]) 59600 EST. PATIENT, LEVEL III Diagnosis: Vaginal yeast infection[ICD9: 112.1] Diagnosis: Vaginal burning[ICD9: 625.8] Diagnosis: History of UTI[ICD9: V13.02] Diagnosis: Dysuria[ICD9: 788.1] Marily Gonzalez MD, [facility] CPT-4: 01335 03/21/2014 ([id number]) 57080 EST. PATIENT, LEVEL III Diagnosis: ESSENTIAL HYPERTENSION[ICD9: 401.9] Marily Gonzalez MD [facility] CPT-4: 67433 01/25/2014 ([id number]) 56323 EST. PATIENT, LEVEL III Diagnosis: ESSENTIAL HYPERTENSION[SNOMED: 39209920] Diagnosis: ESOPHAGEAL REFLUX[ICD9: 530.81] Teresa Gonzalez MD, [facility] CPT-4: 40062 10/23/2013 ([id number]) 84963 EST. PATIENT, LEVEL IV Diagnosis: ESOPHAGEAL REFLUX[ICD9: 530.81] Diagnosis: ESSENTIAL HYPERTENSION[SNOMED: 16917220] Diagnosis: Rash[ICD9: 782.1] Marily Gonzalez MD, [facility] CPT-4: 68884 08/21/2013 ([id number]) 88264 EST. PATIENT, LEVEL IV Diagnosis: Muscle ache of extremity[ICD9: 729.1] Diagnosis: Tingling in extremities[ICD9: 782.0] Diagnosis: ESSENTIAL HYPERTENSION[SNOMED: 95591679] Diagnosis: GERD (gastroesophageal reflux disease)[ICD9: 530.81] Diagnosis: Elevated blood sugar[ICD9: 790.29] [facility] CPT- 4: 49938 07/20/2013 OFFICE VISIT, NEW - LEVEL 3 Diagnosis: ESSENTIAL HYPERTENSION[SNOMED: 82453566] Diagnosis: Tobacco use[ICD9: 305.1] Diagnosis: Depression[ICD9: 311] [facility] CPT-4: 90529 06/22/2013 ([id number]) BEHAV CHNG SMOKING 3-10 MIN Diagnosis: [ICD9: ] [facility] CPT-4: 60816 06/22/2013 Plan of Care Planned Activity Notes Codes Status Date Visit Plan: Hypertension - well controlled - continue with current medications, continue with no added salt diet. Pt has been encouraged to exercise daily.The pt has been advised to call the office if there are any acute concerns about change in blood pressure readings at home.PREM lung cancer-not a surgical candidate-post radiation-seeing Dr Ryan at the cancer center COPD-tobacco use- patient trying to quit smoking-going to start nicotine patches 01/07/2017 Appointment: Marily Valerio WPtel: [facility][note 3][address] (15 min) Moderate 01/07/2017 Patient Education: Patient Medication Summary Completed 01/07/2017 Patient Education: Smoking and Tobacco Addiction Completed 01/07/2017 Patient Education: Hypertension Completed 01/07/2017 Appointment: Marily Valerio WPtel: [address] [place] [address] (30 min) Complex 01/05/2017 Visit Plan: Hypertension - well controlled - continue with current medications, continue with no added salt diet. Pt has been encouraged to exercise daily.The pt has been advised to call the office if there are any acute concerns about change in blood pressure readings at home.Hyperlipidemia - pt has been counseled about appropriate [...] and to assure normal liver response to medications.Tobacco abuse - chronic condition for this patient. Patient has been counseled about need to stop smoking due to the negative health affects. Pt has vocalized understanding and states that they will consider smoking cessation, but the pt is not yet ready to use medication to assist cessation.Lung cancer-post radiation-will see Dr Ryan in 09/08/2016 Appointment: Marily Valerio WPtel: [phone] [phone] (15 min) Moderate 09/08/2016 Patient Education: Patient [...] diet. Pt has been encouraged to exercise daily.The pt has been advised to call the office if there are any acute concerns about change in blood pressure readings at home.Hyperlipidemia - pt has been counseled about appropriate [...] and to assure normal liver response to medications.Anxiety-fairly well controlled-no change in treatment at this time Osteopenia-check bone density 05/11/2016 Appointment: Marily Valerio WPtel: [phone] [phone] (15 min) Moderate 05/11/2016 Patient Education: Patient Medication Summary Completed 05/11/2016 Patient Education: Smoking and Tobacco Addiction Completed 05/11/2016 Visit Plan: Hypertension - well controlled - continue with current medications, continue with no added salt diet. Pt has been encouraged to exercise daily.The pt has been advised to call the office if there are any acute concerns about change in blood pressure readings at home.Anxiety - the patient has uncontrolled anxiety and will benefit from an SSRI on a daily basis to attempt control of the symptoms of anxiety (tachycardia, overwhelming sensations, stress, insomnia, etc). Pt is aware of the risks and benefits of treatment with the above medications.Tobacco abuse - chronic condition for this patient. [...] MRI LUMBAR SPINE W/O DYE LOINC : 40911-8 Cancelled 01/17/2016 Visit Plan: Continued Low back [...] Myalgias - Will stop statin, will order labs.Sacroiliitis - back exercises discussed with the patient, pt to continue with anti-inflammatories. Pt is to call if the symptoms do not improve or if they worsen. 12/18/2015 Appointment: Marily Valerio WPtel: [address] [place], [place] [phone] (30 min) [facility] 12/18/2015 Patient Education: Patient Medication Summary Completed 12/18/2015 Patient Education: Smoking and Tobacco Addiction Completed 12/18/2015 Visit Plan: Joint Injection - Right SI joint - Pt was given post - injection instructions. The pt has been advised to use anti-inflammatories post injection today, ice to the injected site, call if redness, warmth, or increased pain occurs at the site of injection.Low back pain- the patient was instructed in appropriate posture, need for weight loss to alleviate abdominal obesity that is worsening t he patient's back pain.. The pt is to use prn antiinflammatories to manage acute pain. The patient is to call the office if the pain is worsening or does not improve. Sacroiliitis - back exercises discussed with the patient, pt to continue with anti-inflammatories. Pt is to call if the symptoms do not improve or if they worsen. 12/16/2015 Appointment: Joy Flores WPtel: [facility]note 3][address] [facility] (15 min) Moderate 12/16/2015 Patient Education: Patient Medication Summary Completed 12/16/2015 Patient Education: Smoking and Tobacco Addiction Completed 12/16/2015 Visit Plan: Hypertension - well controlled - continue with current medications, continue with no added salt diet. Pt has been encouraged to exercise daily.The pt has been advised to call the office if there are any acute concerns about change in blood pressure readings at home.Left lung cancer-patient to see Dr Ryan today [...] yet ready to use medication to assist cessation.Anxiety-not well controlled-increase wellbutrin 12/09/2015 Visit Plan: Hypertension - well controlled - continue with current medications, continue with no added salt diet. Pt has been encouraged to exercise daily.The pt has been advised to call the office if there are any acute concerns about change in blood pressure readings at home.Left lung cancer-patient to see Dr Ryan today [...] diet. Pt has been encouraged to exercise daily.The pt has been advised to call the office if there are any acute concerns about change in blood pressure readings at home.Left lung nodule-going to have left upper lobe removed at [facility] this to schedule Tobacco use-no cigarettes since Wednesday-start wellbutrin to aide with cessation 10/28/2015 Appointment: (15 min) Moderate 10/28/2015 Patient Education: Patient Medication Summary Completed 10/28/2015 Patient Education: Smoking and Tobacco Addiction Completed 10/28/2015 Patient Education: Hypertension Completed 10/28/2015 Visit Plan: Hypertension - slightly elevated today - continue with current medications, continue with no added salt diet. Pt has been encouraged to exercise daily.The pt has been advised to call the office if there are any acute concerns about change in blood pressure readings at home.Arthritis of roiz-drbc-vjufp mobic- monitor symptoms-check labs Left lung nodule-most recent scan shows slight incre ase in size and needs further evaluation[facility]2015 Appointment: Marily Valerio WPtel: [facility]note 3][address] [phone] [place] (30 min) Complex 08/26/2015 Patient Education: Patient Medication Summary Completed 08/26/2015 Patient Education: Hypertension Completed 08/26/2015 Appointment: Teresa Gonzalez WPtel: [facility]note 3[facility] [place] (15 min) Moderate 08/15/2015 Appointment: Teresa Gonzalez WPtel: [facility][note 3]5 [facility] [place] (15 min) Moderate 08/15/2015 Visit Plan: Hypertension - well controlled - continue with current medications, continue with no added salt diet. Pt has been encouraged to exercise daily.The pt has been advised to call the office if there are any acute concerns about change in blood pressure readings at home.Pulmonary nodule - Recommended repeat CT scan. 02/12/2015 Appointment: Teresa Gonzalez WPtel: [facility]note 3[facility] Follow up 02/12/2015 Patient Education: Patient [...] diet. Pt has been encouraged to exercise daily.The pt has been advised to call the office if there are any acute concerns about change in blood pressure readings at home.Esophageal Reflux - the patient has been counseled against excessive intake of caffeine, spicy foods, peppermint, and cinnamon - all of which can exacerbate esophageal reflux.The patient is to take medications as prescribed and call the office if the symptoms are not improving.Gas and bloating-use dicyclomine prn Elevated blood sugar-check Hgb G5X-xnu back on sweets/carbs 07/23/2014 Appointment: Follow up [...] diet. Pt has been encouraged to exercise daily.The pt has been advised to call the office if there are any acute concerns about change in blood pressure readings at home. 01/25/2014 Appointment: Marily Valerio WPtel: [phone] [phone] Follow up 01/25/2014 Patient Education: Patient Medication Summary Completed 01/25/2014 Patient Education: Hypertension Completed 01/25/2014 Visit Plan: Hypertension - well controlled at home per patient report- continue with current medications, continue with no added salt diet. Pt has been encouraged to exercise daily.The pt has been advised to call the office if there are any acute concerns about change in blood pressure readings at home.Reflux - improved - however, with her history of tobacco abuse - will refer her for an EGD by Dr. Mckeon. 10/23/2013 Appointment: Teresa Gonzalez [facility]el[facility] [phone] [facility] Follow up 10/23/2013 Patient Education: Patient Medication Summary Completed 10/23/2013 Patient Education: Hypertension Completed 10/23/2013 Visit Plan: Esophageal Reflux - the patient has been counseled against excessive intake of caffiene, spicy foods, peppermint, and cinnamon - all of which can exacerbate esophageal reflux.The patient is to take medications as prescribed and call the office if the symptoms are not improving. Hypertension - well controlled at home - continue with current medications, continue with no added salt diet. Pt has been encouraged to exercise daily.The pt has been advised to call the office if there are any acute concerns about change in blood pressure readings at home.Rash-recommend emollient such as eucerin cream twice daily. Ok to use hydrocortisone cream very sparingly-call if rash do not resolve or if any worse. 08/21/2013 Appointment: Marily Valerio WPtel: [phone] [phone] Follow up 08/21/2013 Patient Education: Patient Medication Summary Completed 08/21/2013 Patient Education: Hypertension Completed 08/21/2013 Visit Plan: Esophageal Reflux - the patient has been counseled against excessive intake of caffiene, spicy foods, peppermint, and cinnamon - all of which can exacerbate esophageal reflux.The patient is to take medications as prescribed and call the office if the symptoms are not improving.HTN-elevated today-follow up with Dr Combs as scheduledTingling of aafixwhlcdk-ncetehcv-whusu labs including vitamin b12 and vitamin dElevated blood sugar-check hgb a1c 07/20/2013 Appointment: Marily Valerio WPtel: [facility][note 3]0 [facility] [place] [address] Follow up 07/20/2013 Patient Education: Patient Medication [...] the office next week for practicioner to review.The pt is to call for acute concerns. Depression - uncontrolled - Pt has been counseled about the diagnosis of depression, the potential causes, and risks associated with the diagnosis. The pt denies suicidal ideation, or plans. The patient has been counseled about treatment options, and understands the risks associated with treatment of depression, as well as the risks associated with NOT treating the depression.I believe the pt will benefit from medical intervention and an antidepressant has been appropriately prescribed for this patient.Tobacco use-patient wishes to quit-RX for wellbutrin-set a quit date and start wellbutrin 1 week before quit date. 06/22/2013 Appointment: Marily Valerio WPtel: [facility][note 3]5 [facility] [place] [address] New Patient 06/22/2013 Patient Education: Patient Medication [...] not resolve or if any worse. 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 [...] at this time Osteopenia-check bone density . Bronchitis - acute case of bronchitis [...] with Dr Combs as scheduled Tingling of fhsrxxcmuqy-ccwzbvhm-uzxox labs including vitamin b12 and vitamin d Elevated blood sugar-check hgb a1c . Hypertension - well controlled - continue [...] they worsen. . Hypertension - well controlled at home [...] for an EGD by Dr. Mckeon. . Dysuria-vaginal burning-UA positive for blood and [...] to have left upper lobe removed at [facility] this week to schedule Tobacco use-no [...] blood pressure readings at home. Arthritis of wabj-hgmm-bjloi mobic-monitor symptoms-check labs Left lung nodule-most recent [...] bloating-use dicyclomine prn Elevated blood sugar-check Hgb X6M-sdk back on sweets/carbs
--- OUTSIDE RECORDS SUMMARY | 2019-03-31 09:10 | XMS REPORT | CCD ---
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 Unknown Has never used illegal drugs 06/22/2013 Allergies, Adverse Reactions, Alerts Substance Reaction Codes Entered Date Inactivated Date Status lisinopril cough RxNorm: 14203 06/22/2013 No Inactive Date Active SULFA (SULFONAMIDE [...] Fill Instructions dicyclomine 10 mg capsule RxNorm: 427991 TAKE ONE CAPSULE BY MOUTH THREE TIMES A DAY NEEDED 02/04/2017 05/04/2017 Active Fish Oil 1,000 mg capsule RxNorm: 1 Capsule(s) PO TID 01/07/2017 No Stop Date Active metoprolol tartrate 100 mg tablet RxNorm: 924014 1 Tablet(s) PO BID TAKE ONE TABLET BY MOUTH TWICE A DAY 01/07/2017 01/01/2018 Active Diovan 320 mg tablet RxNorm: 815153 TAKE ONE TABLET BY MOUTH EVERY DAY 11/05/2016 03/04/2017 Active Lipitor 10 mg tablet RxNorm: 081213 1 Tablet(s) PO every other day 09/08/2016 01/05/2017 Inactive dc livalo dicyclomine 10 mg capsule RxNorm: 025190 TAKE ONE CAPSULE BY MOUTH THREE TIMES A DAY NEEDED 07/30/2016 01/25/2017 Inactive Diovan 320 mg tablet RxNorm: 063361 TAKE ONE TABLET BY MOUTH EVERY DAY 06/15/2016 11/04/2016 Inactive Lipitor 10 mg tablet RxNorm: 167159 1 Tablet(s) PO every other day 05/25/2016 05/24/2016 Inactive dc livalo Lipitor 10 mg tablet RxNorm: 416068 1 Tablet(s) PO every other day 05/25/2016 09/07/2016 Inactive dc livalo Livalo 2 mg tablet RxNorm: 606797 1 Tablet(s) PO daily 05/20/2016 05/19/2016 Inactive Livalo 2 mg tablet RxNorm: 284018 1 Tablet(s) PO daily 05/20/2016 05/24/2016 Inactive Celexa 10 mg tablet RxNorm: 328310 1 Tablet(s) PO daily 02/10/2016 04/09/2016 Inactive amlodipine 10 mg tablet RxNorm: 765694 TAKE ONE TABLET BY MOUTH EVERY DAY 02/03/2016 04/27/2017 Active amlodipine 10 mg tablet RxNorm: 385630 TAKE ONE TABLET BY MOUTH EVERY DAY 02/03/2016 02/02/2016 Inactive amlodipine 10 mg tablet RxNorm: 033490 TAKE ONE TABLET BY MOUTH EVERY DAY 02/03/2016 01/27/2017 Inactive metoprolol tartrate 100 mg tablet RxNorm: 754619 TAKE ONE TABLET BY MOUTH TWICE A DAY 2016 01/06/2017 Inactive Diovan 320 mg tablet RxNorm: 488316 TAKE ONE TABLET BY MOUTH EVERY DAY 12/19/2015 06/14/2016 Inactive tramadol 50 mg tablet RxNorm: 292577 1-2 Tablet(s) PO Q6 PRN 12/09/2015 No Stop Date Active Wellbutrin XL 150 mg 24 hr tablet, extended release RxNorm: 271698 1 Tablet(s) PO daily 12/09/2015 02/09/2016 Inactive Mobic 7.5 mg tablet RxNorm: 085491 TAKE ONE TABLET BY MOUTH DAILY 11/11/2015 01/09/2016 Inactive dicyclomine 10 mg capsule RxNorm: 608119 TAKE ONE CAPSULE BY MOUTH THREE TIMES A DAY NEEDED 11/11/2015 07/29/2016 Inactive Wellbutrin 75 mg tablet RxNorm: 384041 1 Tablet(s) PO BID 10/28/2015 12/08/2015 Inactive simvastatin 20 mg tablet RxNorm: 044224 TAKE ONE TABLET BY MOUTH EVERY DAY 09/05/2015 2016 Inactive Mobic 7.5 mg tablet RxNorm: 075115 1 Tablet(s) PO daily 08/26/2015 11/10/2015 Inactive estradiol 0.5 mg tablet RxNorm: 034559 TAKE ONE TABLET BY MOUTH EVERY DAY 06/11/2015 03/06/2016 Inactive amlodipine 10 mg tablet RxNorm: 360935 TAKE ONE TABLET BY MOUTH EVERY DAY 04/19/2015 01/13/2016 Inactive dicyclomine 10 mg capsule RxNorm: 903924 TAKE ONE CAPSULE BY MOUTH THREE TIMES A DAY NEEDED 04/19/2015 10/15/2015 Inactive simvastatin 20 mg tablet RxNorm: 892757 TAKE ONE TABLET BY MOUTH EVERY DAY 02/21/2015 08/19/2015 Inactive Diovan 320 mg tablet RxNorm: 387190 TAKE ONE TABLET BY MOUTH EVERY DAY 12/19/2014 12/18/2015 Inactive cephalexin 500 mg capsule RxNorm: 691212 1 Capsule(s) PO TID 11/13/2014 11/19/2014 Inactive prednisone 10 mg tablet RxNorm: 281833 3 Tablet(s) PO daily 11/13/2014 11/17/2014 Inactive prednisone 10 mg tablet RxNorm: 351001 3 Tablet(s) PO daily 11/12/2014 11/12/2014 Inactive Kenalog 40 mg/mL suspension for injection RxNorm: 4495891 Milliliter(s) Inj 11/12/2014 11/12/2014 Inactive cephalexin 500 mg capsule RxNorm: 357331 1 Capsule(s) PO TID 11/12/2014 11/12/2014 Inactive ceftriaxone 500 mg solution for injection RxNorm: 0071516 Inj 11/12/2014 11/12/2014 Inactive dicyclomine 10 mg capsule RxNorm: 849963 TAKE ONE CAPSULE BY MOUTH THREE TIMES A DAY NEEDED 11/08/2014 04/18/2015 Inactive metoprolol tartrate 100 mg tablet RxNorm: 031881 TAKE ONE TABLET BY MOUTH TWICE A DAY 10/18/2014 2015 Inactive metoprolol tartrate 100 mg tablet RxNorm: 322046 1 Tablet(s) PO BID 10/18/2014 10/12/2015 Inactive simvastatin 20 mg tablet RxNorm: 165293 TAKE ONE TABLET BY MOUTH EVERY DAY 08/21/2014 02/16/2015 Inactive Diovan 320 mg tablet RxNorm: 408695 TAKE ONE TABLET BY MOUTH EVERY DAY 08/21/2014 12/18/2014 Inactive Carafate 1 gram tablet RxNorm: 911993 1 Tablet(s) PO AC & HS MIX WITH 30ML WATER 07/23/2014 10/20/2014 Inactive dissolve in water and drink as slurry dicyclomine 10 mg capsule RxNorm: 675803 1 Capsule(s) PO TID PRN 07/23/2014 10/20/2014 Inactive simvastatin 20 mg tablet RxNorm: 597479 TAKE ONE TABLET BY MOUTH EVERY DAY 06/07/2014 08/20/2014 Inactive estradiol 0.5 mg tablet RxNorm: 402711 TAKE ONE TABLET BY MOUTH EVERY DAY 05/16/2014 05/10/2015 Inactive amlodipine 10 mg tablet RxNorm: 142311 TAKE ONE TABLET BY MOUTH EVERY DAY 05/16/2014 04/18/2015 Inactive Diovan 320 mg tablet RxNorm: 476025 TAKE ONE TABLET BY MOUTH EVERY DAY 03/26/2014 08/20/2014 Inactive Diflucan 150 mg tablet RxNorm: 318104 1 Tablet(s) PO daily 03/21/2014 03/27/2014 Inactive simvastatin 20 mg tablet RxNorm: 188805 TAKE ONE TABLET BY MOUTH EVERY DAY 03/02/2014 05/30/2014 Inactive estradiol 0.5 mg tablet RxNorm: 631413 TAKE ONE TABLET BY MOUTH EVERY DAY 02/16/2014 05/15/2014 Inactive amlodipine 10 mg tablet RxNorm: 746412 TAKE ONE TABLET BY MOUTH EVERY DAY 02/16/2014 05/15/2014 Inactive pantoprazole 40 mg tablet,delayed release RxNorm: 887065 2 Tablet(s) PO daily 01/25/2014 02/23/2014 Inactive simvastatin 20 mg tablet RxNorm: 543194 Tablet(s) PO TAKE ONE TABLET BY MOUTH EVERY DAY 11/30/2013 03/01/2014 Inactive amlodipine 10 mg tablet RxNorm: 399796 Tablet(s) PO TAKE ONE TABLET BY MOUTH EVERY DAY 11/16/2013 02/15/2014 Inactive metoprolol tartrate 100 mg tablet RxNorm: 586614 1 Tablet(s) PO BID 10/23/2013 10/17/2014 Inactive Diovan 320 mg tablet RxNorm: 604961 Tablet(s) PO TAKE ONE TABLET BY MOUTH EVERY DAY 09/28/2013 03/25/2014 Inactive Carafate 1 gram tablet RxNorm: 721238 1 Tablet(s) PO TID MIX WITH 30ML WATER 09/20/2013 12/18/2013 Inactive estradiol 0.5 mg tablet RxNorm: 047423 1 Tablet(s) PO daily 08/21/2013 02/15/2014 Inactive amlodipine 10 mg tablet RxNorm: 308308 1 Tablet(s) PO daily 08/21/2013 11/15/2013 Inactive simvastatin 20 mg tablet RxNorm: 501935 1 Tablet(s) PO daily 08/21/2013 11/18/2013 Inactive Diovan 320 mg tablet RxNorm: 938534 1 Tablet(s) PO daily 08/21/2013 09/19/2013 Inactive Carafate 1 gram tablet RxNorm: 594978 1 Tablet(s) PO TID MIX WITH 30ML WATER 08/21/2013 09/19/2013 Inactive Diovan 320 mg tablet RxNorm: 617035 1 Tablet(s) PO daily 07/20/2013 08/18/2013 Inactive amlodipine 10 mg tablet RxNorm: 800753 1 Tablet(s) PO daily 07/20/2013 08/18/2013 Inactive estradiol 0.5 mg tablet RxNorm: 987978 1 Tablet(s) PO daily 07/20/2013 08/18/2013 Inactive metoprolol tartrate 100 mg tablet RxNorm: 878728 1 Tablet(s) PO BID 06/22/2013 10/22/2013 Inactive Wellbutrin XL 150 mg 24 hr tablet, extended release RxNorm: 695992 1 Tablet(s) PO daily 06/22/2013 07/19/2013 Inactive calcium 500 mg tablet RxNorm: 2 Tablet(s) PO BID No Start Date Active glucosamine and pyhnvbsxpel-yljneexp-ioqr#3 oral RxNorm: 2837 oral No Start Date Active aspirin 81 mg tablet RxNorm: 863296 1 Tablet(s) PO daily No Start Date Active Probiotic oral RxNorm: oral No Start Date Active Vitamin D3 1,000 unit capsule RxNorm: 435826 1 Capsule(s) PO daily No Start Date Active simvastatin 20 mg tablet RxNorm: 100135 1 Tablet(s) PO daily No Start Date 08/20/2013 Inactive hyoscyamine 0.125 mg sublingual tablet RxNorm: 0972383 1 Tablet(s) SL TID No Start Date 07/22/2014 Inactive metoprolol tartrate 100 mg tablet RxNorm: 728395 1 Tablet(s) PO daily No Start Date 06/21/2013 Inactive amlodipine 10 mg tablet RxNorm: 979305 1 Tablet(s) PO daily No Start Date 07/19/2013 Inactive Diovan 320 mg tablet RxNorm: 034976 1 Tablet(s) PO daily No Start Date 07/19/2013 Inactive Fish Oil 1,000 mg capsule RxNorm: 1 Capsule(s) PO BID No Start Date 01/06/2017 Inactive omeprazole 20 mg tablet,delayed release RxNorm: 192081 1 Tablet(s) PO daily No Start Date 01/25/2014 Inactive estradiol 0.5 mg tablet RxNorm: 445462 1 Tablet(s) PO daily No Start Date 07/19/2013 Inactive Medication Administered Medication Codes Instructions Start Date Status Kenalog 40 mg/mL suspension for injection RxNorm: 1759910 Milliliter 11/12/2014 No longer Active ceftriaxone 500 mg solution for injection RxNorm: 2193708 11/12/2014 No longer Active Immunizations Vaccine Codes [...] 38.1 % 05/11/2016 Cbc With Differential Ord2 Edgar% 9.5 % 05/11/2016 Cbc With Differential Ord2 [...] 1.76 K/ul 05/11/2016 Cbc With Differential Ord2 Edgar ABS# 0.4 K/ul 05/11/2016 Cbc With Differential Ord2 Eos ABS# 0.1 K/ul 05/11/2016 Cbc With Differential Ord2 Baso ABS# 0.0 K/ul 05/11/2016 Comp Metabolic Ixy458 NA 139 mEq/L 05/11/2016 Comp Metabolic Jie724 K 4.6 mEq/L 05/11/2016 Comp Metabolic Bmt599 CL 104 mEq/L 05/11/2016 Comp Metabolic Zdc787 CO2 30.0 mEq/L 05/11/2016 Comp Metabolic Wyh699 ANION GAP 10 05/11/2016 Comp Metabolic Uxy782 GLUCOSE 113 mg/dL 05/11/2016 Comp Metabolic Nqi731 Creat 0.8 mg/dL 05/11/2016 Comp Metabolic Imh981 eGFR 74 ml/min/1.73m2 05/11/2016 Comp Metabolic Cln251 BUN 16 mg/dL 05/11/2016 Comp Metabolic Bbt464 B/C Ratio 19.8 Ratio 05/11/2016 Comp Metabolic Whr709 CALCIUM 10.1 mg/dL 05/11/2016 Comp Metabolic Nlt899 ALK PHOS 44 U/L 05/11/2016 Comp Metabolic Vqt528 AST(SGOT) 20 U/L 05/11/2016 Comp Metabolic Tng499 ALT(SGPT) 17 U/L 05/11/2016 Comp Metabolic Xgj712 BILI T 0.4 mg/dL 05/11/2016 Comp Metabolic Wal864 ALBUMIN 4.1 g/dL 05/11/2016 Comp Metabolic Vdk455 TPRO 6.5 g/dL 05/11/2016 Comp Metabolic Nvb876 GLOB 2.4 g/dL 05/11/2016 Comp Metabolic Rot796 A/G Ratio 1.8 Ratio 05/11/2016 Comp Metabolic Zvv676 Osmo 280 mOsmo 05/11/2016 Tsh Ord6 hTSH II 0.96 uIU/mL 05/11/2016 Lipid Ord30 CHOL 283 mg/dL 05/11/2016 Lipid Ord30 HDL 53.0 mg/dl 05/11/2016 Lipid Ord30 TRIG 144 mg/dL 05/11/2016 Lipid Ord30 LDL 201 mg/dL 05/11/2016 Lipid Ord30 C/HDL 5.3 Ratio 05/11/2016 C-Reactive Protein Qnt Crqnt CRP 0.5 mg/dl 12/18/2015 Vitamin D 25 Oh Yuj8020 VITAMIN D, 25 HYDROXY 84.50 ng/mL 12/18/2015 Comp Metabolic Ald669 NA 139 mEq/L 12/18/2015 Comp Metabolic Hsj156 K 3.8 mEq/L 12/18/2015 Comp Metabolic Fdp735 CL 103 mEq/L 12/18/2015 Comp Metabolic Nin185 CO2 31.0 mEq/L 12/18/2015 Comp Metabolic Hyb353 ANION GAP 9 12/18/2015 Comp Metabolic Rqx072 GLUCOSE 107 mg/dL 12/18/2015 Comp Metabolic Oeq593 Creat 0.8 mg/dL 12/18/2015 Comp Metabolic Yfa947 eGFR 80 ml/min/1.73m2 12/18/2015 Comp Metabolic Yui174 BUN 19 mg/dL 12/18/2015 Comp Metabolic Psd211 B/C Ratio 25.0 Ratio 12/18/2015 Comp Metabolic Sbx792 CALCIUM 9.1 mg/dL 12/18/2015 Comp Metabolic Tnk943 ALK PHOS 42 U/L 12/18/2015 Comp Metabolic Uph943 AST(SGOT) 17 U/L 12/18/2015 Comp Metabolic Taj069 ALT(SGPT) 18 U/L 12/18/2015 Comp Metabolic Heg869 BILI T 0.3 mg/dL 12/18/2015 Comp Metabolic Czu459 ALBUMIN 3.8 g/dL 12/18/2015 Comp Metabolic Bzm302 TPRO 5.9 g/dL 12/18/2015 Comp Metabolic Aap190 GLOB 2.1 g/dL 12/18/2015 Comp Metabolic Ftd419 A/G Ratio 1.8 Ratio 12/18/2015 Comp Metabolic Xrp342 Osmo 280 mOsmo 12/18/2015 Sed Rate Ord21 [...] 97.6 fl 12/18/2015 Cbc With Differential Ord2 Edgar% 9.3 % 12/18/2015 Cbc With Differential Ord2 [...] 1.45 K/ul 12/18/2015 Cbc With Differential Ord2 Edgar ABS# 0.5 K/ul 12/18/2015 Cbc With Differential [...] 31.6 pg 09/02/2015 Cbc With Differential Ord2 Edgar% 8.8 % 09/02/2015 Cbc With Differential Ord2 [...] 1.53 K/ul 09/02/2015 Cbc With Differential Ord2 Edgar ABS# 0.5 K/ul 09/02/2015 Cbc With Differential Ord2 Eos ABS# 0.1 K/ul 09/02/2015 Cbc With Differential Ord2 Baso ABS# 0.0 K/ul 09/02/2015 Cbc With Differential Ord2 New Analyzer Notice Please note new ref ranges starting 08-14-2015 due to implemntation of new five part differential hematolgy analyzer. 09/02/2015 Tsh Ord6 hTSH II 1.41 uIU/mL 09/02/2015 Comp Metabolic Zqv879 NA 136 mEq/L 09/02/2015 Comp Metabolic Jjw307 K 4.5 mEq/L 09/02/2015 Comp Metabolic Wgy555 CL 103 mEq/L 09/02/2015 Comp Metabolic Sgy245 CO2 27.0 mEq/L 09/02/2015 Comp Metabolic Pjv917 ANION GAP 11 09/02/2015 Comp Metabolic Ugb993 GLUCOSE 109 mg/dL 09/02/2015 Comp Metabolic Fnq192 Creat 1.0 mg/dL 09/02/2015 Comp Metabolic Yhy048 eGFR 62 ml/min/1.73m2 09/02/2015 Comp Metabolic Xhx082 BUN 21 mg/dL 09/02/2015 Comp Metabolic Gqd494 B/C Ratio 22.1 Ratio 09/02/2015 Comp Metabolic Jqh601 CALCIUM 9.3 mg/dL 09/02/2015 Comp Metabolic Fnu182 ALK PHOS 37 U/L 09/02/2015 Comp Metabolic Hwq718 AST(SGOT) 19 U/L 09/02/2015 Comp Metabolic Ipd476 ALT(SGPT) 16 U/L 09/02/2015 Comp Metabolic Ard426 BILI T 0.4 mg/dL 09/02/2015 Comp Metabolic Dlo631 ALBUMIN 4.1 g/dL 09/02/2015 Comp Metabolic Het145 TPRO 6.3 g/dL 09/02/2015 Comp Metabolic Zha782 GLOB 2.2 g/dL 09/02/2015 Comp Metabolic End901 A/G Ratio 1.8 Ratio 09/02/2015 Comp Metabolic Ugn825 Osmo 276 mOsmo 09/02/2015 A1C HPLC 0551945 A1C HPLC 47563-2 5.6 % 07/23/2014 VIT D TOTL 8797203 VIT D TOTL 52 NG/ML 07/20/2013 GFR CALC 1754725 GFR AA >60 ML/MIN 07/20/2013 GFR CALC 2989195 GFR NON-AA >60 ML/MIN 07/20/2013 CBC 0217185 WBC 5.9 10e9/L 07/20/2013 CBC 4720947 RBC 4.79 10e12/L 07/20/2013 CBC 3964669 HGB 15.5 g/dL 07/20/2013 CBC 6234359 HCT DET 46.1 % 07/20/2013 CBC 1791233 MCV 96.2 fL 07/20/2013 CBC 2397593 MCH 32.4 pg 07/20/2013 CBC 0204104 MCHC 33.6 g/dL 07/20/2013 CBC 2289863 PLT 286 10e9/L 07/20/2013 CBC 6485636 MPV 10.8 fL 07/20/2013 CBC 6373526 ERINN % 66.1 % 07/20/2013 CBC 6299482 LY % 24.3 % 07/20/2013 CBC 0017500 MON % 8.1 % 07/20/2013 CBC 3528500 EOS % 1.2 % 07/20/2013 CBC 3400877 BASO % 0.3 % 07/20/2013 CBC 1286834 RDW 12.7 % 07/20/2013 CBC 8056385 ABS ERINN 3.90 10e9/L 07/20/2013 CBC 4882842 ABS LYMPH 1.43 10e9/L 07/20/2013 CBC 9429610 ABS MONO 0.48 10e9/L 07/20/2013 CBC 3058330 ABS EOS 0.07 10e9/L 07/20/2013 CBC 4112622 ABS BASO 0.02 10e9/L 07/20/2013 CBC 2248203 RDW-SD 44.1 fL 07/20/2013 A1C HPLC 8837315 A1C HPLC 95119-4 5.9 % 07/20/2013 LIPID GRP HDL TEST 54 MG/DL 07/20/2013 LIPID GRP TRIG 98 MG/DL 07/20/2013 LIPID GRP TEST LDL 95 MG/DL 07/20/2013 LIPID GRP CHOL 169 MG/DL 07/20/2013 LIPID GRP RCHOL/HDL 3.13 RATIO 07/20/2013 TSH 5780333 TSH 1.032 uIU/ML 07/20/2013 CHEM 14 5104165 AST 18 U/L 07/20/2013 CHEM 14 8443321 ALT 13 IU/L 07/20/2013 CHEM 14 4497930 BUN 19 MG/DL 07/20/2013 CHEM 14 1217472 ALBUMIN 4.5 GM/DL 07/20/2013 CHEM 14 9808788 CHLORIDE 105 MMOL/L 07/20/2013 CHEM 14 3678111 BILI TOT 0.5 MG/DL 07/20/2013 CHEM 14 7359999 ALK PHOS 40 U/L 07/20/2013 CHEM 14 9826127 SODIUM 137 MMOL/L 07/20/2013 CHEM 14 2492803 CREATININE 0.76 MG/DL 07/20/2013 CHEM 14 5643495 CALCIUM 10.0 MG/DL 07/20/2013 CHEM 14 1340549 POTASSIUM 4.6 MMOL/L 07/20/2013 CHEM 14 7558383 PROT TOT 6.5 GM/DL 07/20/2013 CHEM 14 3451273 GLUCOSE 118 MG/DL 07/20/2013 CHEM 14 6460550 BICARB 26 MMOL/L 07/20/2013 CHEM 14 9642082 ANION GAP 6 MEQ/L 07/20/2013 VIT B 12 3331458 VIT B 12 492 PG/ML 07/20/2013 Review [...] nourished 06/22/2013 None Full Exam - General 1995 Constitutional general appearance Overall: well developed 06/22/2013 [...] 1995 Ears/Nose/Throat oral cavity/pharynx/larynx Overall: no masses 06/22/2013 None Full Exam - General 1995 [...] 06/22/2013 None Procedures Procedure Codes Date TOBACCO-USE DRAFTER TOOL DESIGN 3-[address]: 686681627 CPT-4: K2257Yqdimtl 09/08/2016 ADMIN INFLUENZA VIRUS VAC CPT-4: Q7364Zyddknp 05/11/2016 PNEUMOCOCCAL VACC 13 SAULO IM Formatting Model/CDA Sections, Assigned to/Rafia Cuadra SNOMED CT: 35552441 CPT-4: 87081Vqxkwsk 05/11/2016 ADMIN PNEUMOCOCCAL VACCINE SNOMED CT: 95176806 CPT-4: D4169Aixcbri 05/11/2016 FLU VACC 4 SAULO 3 YRS PLUS IM Formatting Model/CDA Sections, Assigned to/Rafia Cuadra SNOMED CT: 45103791 CPT-4: 26170Brrpdid 05/11/2016 TOBACCO-USE DRAFTER TOOL DESIGN 3-[address]: 220517912 CPT-4: B1970Isoivhq 02/10/2016 TRIAMCINOLONE ACET INJ NOS CPT-4: O1172Mswbffi 12/16/2015 DRAIN/INJECT JOINT/BURSA CPT-4: 91239Babvtqw 12/16/2015 TOBACCO-USE DRAFTER TOOL DESIGN 3-[address]: 859124595 CPT-4: E0625Adwopcb 12/09/2015 TOBACCO-USE DRAFTER TOOL DESIGN 3-[address]: 542647661 CPT-4: S6873Ttzhwaf 10/28/2015 THER/PROPH/DIAG INJ SC/IM CPT-4: 27266Dmljakm 11/12/2014 TRIAMCINOLONE ACET INJ NOS CPT-4: X7848Qpwedff 11/12/2014 ROCEPHIN, PER 250 MG CPT-4: C9623Tthpxhx 11/12/2014 ROUTINE VENIPUNCTURE CPT-4: 96572Tmhsiml 07/23/2014 URINALYSIS NONAUTO W/O SCOPE CPT-4: 89918Bjqcusi 03/21/2014 ROUTINE VENIPUNCTURE CPT-4: 82412Ihkqaxj 07/20/2013 PRESCRIP TRANSMIT VIA ERX SY CPT-4: Z5185Arznkda 07/20/2013 PRESCRIP TRANSMIT VIA ERX SY CPT-4: Y5330Icnahys 06/22/2013 Vital Signs Date Vital 01/07/2017 Blood Pressure 1: 140/70 Code: 8480-6 BMI: 28.8 Code: 13385-6 Heart Rate 1: 68 bpm Height: 5'5" SpO2: 96% Weight: 173 lbs 09/08/2016 Blood Pressure 1: 134/70 Code: 8480-6 BMI: 29.1 Code: 30657-8 Heart Rate 1: 68 bpm Height: 5'5" SpO2: 99% Weight: 175 lbs 05/11/2016 Blood Pressure 1: 138/88 Code: 8480-6 BMI: 29.2 Code: 94013-0 Heart Rate 1: 67 bpm Height: 5'6" SpO2: 95% Weight: 178 lbs 02/10/2016 Blood Pressure 1: 148/82 Code: 8480-6 BMI: 28.8 Code: 97051-2 Heart Rate 1: 63 bpm Height: 5'6" SpO2: 97% Weight: 176 lbs 12/18/2015 Blood Pressure 1: 130/78 Code: 8480-6 BMI: 28.8 Code: 79729-9 Heart Rate 1: 66 bpm Height: 5'6" SpO2: 98% Weight: 176 lbs 12/16/2015 Blood Pressure 1: 162/100 Code: 8480-6 BMI: 28.8 Code: 07234-4 Heart Rate 1: 65 bpm Height: 5'6" SpO2: 98% Weight: 176 lbs 12/09/2015 Blood Pressure 1: 142/70 Code: 8480-6 BMI: 28.4 Code: 59004-3 Heart Rate 1: 65 bpm Height: 5'6" SpO2: 96% Weight: 173 lbs 10/28/2015 Blood Pressure 1: 160/82 Code: 8480-6 Blood Pressure 1: 140/86 Code: 8480-6 BMI: 28.5 Code: 82367-1 Heart Rate 1: 60 bpm Height: 5'6" SpO2: 96% Weight: 174 lbs 08/26/2015 Blood Pressure 1: 158/80 Code: 8480-6 Blood Pressure 1: 148/88 Code: 8480-6 BMI: 28.0 Code: 04526-3 Heart Rate 1: 68 bpm Height: 5'6" SpO2: 98% Weight: 171 lbs 02/12/2015 Blood Pressure 1: 136/74 Code: 8480-6 BMI: 25.9 Code: 25092-6 Heart Rate 1: 61 bpm Height: 5'6" SpO2: 97% Weight: 158 lbs 11/12/2014 Blood Pressure 1: 140/82 Code: 8480-6 BMI: 25.9 Code: 05342-2 Heart Rate 1: 64 bpm Height: 5'6" SpO2: 97% Weight: 158 lbs 07/23/2014 Blood Pressure 1: 138/88 Code: 8480-6 BMI: 25.6 Code: 89258-9 Heart Rate 1: 57 bpm Height: 5'6" SpO2: 95% Weight: 156 lbs 03/21/2014 Blood Pressure 1: 124/64 Code: 8480-6 Heart Rate 1: 64 bpm Weight: 147 lbs 01/25/2014 Blood Pressure 1: 130/70 Code: 8480-6 BMI: 24.4 Code: 10112-3 Height: 5'6" Weight: 149 lbs 10/23/2013 Blood Pressure 1: 152/82 Code: 8480-6 BMI: 25.7 Code: 26568-1 Heart Rate 1: 60 bpm Height: 5'6" Weight: 157 lbs 08/21/2013 Blood Pressure 1: 142/90 Code: 8480-6 BMI: 25.9 Code: 11826-6 Heart Rate 1: 56 bpm Height: 5'6" Weight: 158 lbs 07/20/2013 Blood Pressure 1: 164/80 Code: 8480-6 BMI: 26.2 Code: 89327-5 Heart Rate 1: 60 bpm Height: 5'6" SpO2: 98% Weight: 160 lbs 06/22/2013 Blood Pressure 1: 140/84 Code: 8480-6 BMI: 28.2 Code: 80045-5 Heart Rate 1: 60 bpm Height: 5'6" [...] data Encounters Encounter Performer Location Codes Date EST. PATIENT, LEVEL III Diagnosis: Essential (primary) hypertension[ICD10: I10] Diagnosis: Malignant neoplasm of upper lobe, left bronchus or lung[ICD10: C34.12] Diagnosis: Chronic obstructive pulmonary disease, unspecified[ICD10: J44.9] [facility] CPT-4: 65357 01/07/2017 [id number]) [id number] EST. PATIENT, LEVEL IV Diagnosis: Essential (primary) hypertension[ICD10: I10] Diagnosis: Mixed hyperlipidemia[ICD10: E78.2] Diagnosis: Tobacco use[ICD10: Z72.0] Diagnosis: Malignant neoplasm of upper lobe, left bronchus or lung[ICD10: C34.12] [facility] CPT-4: 41052 09/08/2016 ([id number]) [id number] EST. PATIENT, LEVEL IV Diagnosis: Essential (primary) hypertension[ICD10: I10] Diagnosis: Mixed hyperlipidemia[ICD10: E78.2] Diagnosis: Generalized anxiety disorder[ICD10: F41.1] Diagnosis: Other specified disorders of bone density and structure, multiple sites[ICD10: M85.89] [facility] CPT-4: 35784 05/11/2016 ([id number]) [id number] EST. PATIENT, LEVEL IV Diagnosis: Essential (primary) hypertension[ICD10: I10] Diagnosis: Generalized anxiety disorder[ICD10: F41.1] Diagnosis: Tobacco use[ICD10: Z72.0] Marily Gonzalez MD, [facility] CPT-4: 35168 02/10/2016 [id number] EST. PATIENT, LEVEL IV Diagnosis: Myalgia[ICD10: M79.1] Diagnosis: Low back pain[ICD10: M54.5] Joy Gonzalez MD, [facility] CPT-4: 90194 12/18/2015 [id number] EST. PATIENT, LEVEL IV Diagnosis: Low back pain[ICD10: M54.5] Diagnosis: Pain in right hip[ICD10: M25.551] Joy Gonzalez MD, [facility] CPT-4: 48907 12/16/2015 ([id number]) 62497 EST. PATIENT, LEVEL IV Diagnosis: Low back pain[ICD10: M54.5] Diagnosis: Malignant neoplasm of upper lobe, left bronchus or lung[ICD10: C34.12] Diagnosis: Tobacco use[ICD10: Z72.0] Diagnosis: Essential (primary) hypertension[ICD10: I10] Diagnosis: Generalized anxiety disorder[ICD10: F41.1] Marily Gonzalez MD, [facility] CPT-4: 36363 12/09/2015 ([id number]) [id number] EST. PATIENT, LEVEL IV Diagnosis: Essential (primary) hypertension[ICD10: I10] Diagnosis: Tobacco use[ICD10: Z72.0] Diagnosis: Solitary pulmonary nodule[ICD10: R91.1] Marily Gonzalez MD, [facility] CPT-4: 10142 10/28/2015 ([id number]) 30611 EST. PATIENT, LEVEL IV Diagnosis: Essential (primary) hypertension[ICD10: I10] Diagnosis: Bilateral primary osteoarthritis of hip[ICD10: M16.0] Diagnosis: Solitary pulmonary nodule[ICD10: R91.1] Marily Gonzalez MD, [facility] CPT-4: 30898 08/26/2015 ([id number]) [id number] EST. PATIENT, LEVEL IV Diagnosis: ESSENTIAL HYPERTENSION[ICD9: 401.9] Diagnosis: Pulmonary nodule[ICD9: 793.11] Teresa Gonzalez MD, [facility] CPT-4: 31990 02/12/2015 ([id number]) 33271 EST. PATIENT, LEVEL III Diagnosis: ACUTE BRONCHITIS[ICD9: 466.0] Diagnosis: ALLERGIC RHINITIS[ICD9: 477.9] Teresa Gonzalez MD, [facility] CPT-4: 98275 11/12/2014 ([id number]) 10792 EST. PATIENT, LEVEL IV Diagnosis: ESOPHAGEAL REFLUX[ICD9: 530.81] Diagnosis: ESSENTIAL HYPERTENSION[ICD9: 401.9] Diagnosis: Elevated blood sugar[ICD9: 790.29] Marily Gonzalez MD, [facility] CPT- 4: 54426 07/23/2014 ([id number]) 02266 EST. PATIENT, LEVEL III Diagnosis: Vaginal yeast infection[ICD9: 112.1] Diagnosis: Vaginal burning[ICD9: 625.8] Diagnosis: History of UTI[ICD9: V13.02] Diagnosis: Dysuria[ICD9: 788.1] Marily Gonzalez MD, [facility] CPT-4: 41084 03/21/2014 ([id number]) 43231 EST. PATIENT, LEVEL III Diagnosis: ESSENTIAL HYPERTENSION[ICD9: 401.9] Marily Gonzalez MD, [facility] CPT-4: 24087 01/25/2014 ([id number]) 57247 EST. PATIENT, LEVEL III Diagnosis: ESSENTIAL HYPERTENSION[SNOMED: 15430448] Diagnosis: ESOPHAGEAL REFLUX[ICD9: 530.81] Teresa Gonzalez MD, [facility] CPT-4: 28553 10/23/2013 ([id number]) 52943 EST. PATIENT, LEVEL IV Diagnosis: ESOPHAGEAL REFLUX[ICD9: 530.81] Diagnosis: ESSENTIAL HYPERTENSION[SNOMED: 30913279] Diagnosis: Rash[ICD9: 782.1] Marily Gonzalez MD, [facility] CPT-4: 96716 08/21/2013 [id number]) [id number] EST. PATIENT, LEVEL IV Diagnosis: Muscle ache of extremity[ICD9: 729.1] Diagnosis: Tingling in extremities[ICD9: 782.0] Diagnosis: ESSENTIAL HYPERTENSION[SNOMED: 82665881] Diagnosis: GERD (gastroesophageal reflux disease)[ICD9: 530.81] Diagnosis: Elevated blood sugar[ICD9: 790.29] [facility] CPT- 4: 17251 07/20/2013 OFFICE VISIT, NEW - LEVEL 3 Diagnosis: ESSENTIAL HYPERTENSION[SNOMED: 45715301] Diagnosis: Tobacco use[ICD9: 305.1] Diagnosis: Depression[ICD9: 311] [facility] CPT-4: 37838 06/22/2013 ([id number]) BEHAV CHNG SMOKING 3-10 MIN Diagnosis: [ICD9: ] [facility] CPT-4: 88439 06/22/2013 Plan of Care Planned Activity Notes [...] nicotine patches 01/07/2017 Appointment: Marily Valerio WPtel: [address] [place] [address] (15 min) Moderate 01/07/2017 Patient Education: Patient Medication Summary Completed 01/07/2017 Patient Education: Smoking and Tobacco Addiction Completed 01/07/2017 Patient Education: Hypertension Completed 01/07/2017 Appointment: Marily Valerio WPtel: [address] [place], [place] [id number] (30 min) Complex 01/05/2017 Visit Plan: Hypertension [...] in 09/08/2016 Appointment: Marily Valerio WPtel: [facility]0 [phone] (15 min) Moderate 09/08/2016 Patient Education: Patient [...] density 05/11/2016 Appointment: Marily Valerio WPtel: [phone] [phone] (15 min) Moderate 05/11/2016 Patient Education: Patient [...] Care Plan[facility] Cancelled 01/17/2016 Visit Plan: Continued Low back [...] they worsen. 12/18/2015 Appointment: Marily Valerio WPtel: [address] [place], [place] [phone] (30 min) [facility] 12/18/2015 Patient Education: Patient Medication Summary Completed [...] worsen. 12/16/2015 Appointment: [facility] [phone] [facility] [place] (15 min) Moderate 12/16/2015 Patient [...] to have left upper lobe removed at [facility] this week to schedule Tobacco [...] in blood pressure readings at home.Arthritis of ezsa-qbuh-dmkul mobic- monitor symptoms-check labs Left lung nodule-most recent scan shows slight incre ase in size and needs further evaluation-[facility]: [facility] [phone] [phone] (30 min) Complex 08/26/2015 Patient Education: Patient Medication Summary Completed 08/26/2015 Patient Education: Hypertension Completed 08/26/2015 [phone] [facility] [place] (15 min) Moderate 08/15/2015 Appointment: [facility]el[facility] [phone] [facility] (15 min) Moderate 08/15/2015 Visit Plan: Hypertension - well controlled - continue with current medications, continue with no added salt diet. Pt has been encouraged to exercise daily.The pt has been advised to call the office if there are any acute concerns about change in blood pressure readings at home.Pulmonary nodule - Recommended repeat CT scan. 02/12/2015 App[facility]ment: [facility]el[facility] [phone] [facility] Follow up 02/12/2015 Patient Education: Patient Medication [...] bloating-use dicyclomine prn Elevated blood sugar-check Hgb [id number] back on sweets/carbs 07/23/2014 Appointment: Follow up [...] home. 01/25/2014 Appointment: [facility] Val[facility]Ptel[facility] [phone] [phone] Follow up 01/25/2014 Patient Education: Patient [...] [place]. 10/23/2013 Appointment: Teresa Gonzalez WPtel: [phone] [facility] Follow up 10/23/2013 Patient Education: Patient [...] worse. 08/21/2013 Appointment: [facility]el[facility] [phone] [phone] Follow up 08/21/2013 Patient Education: Patient [...] up with Dr Combs as scheduledTingling of qmeplmacfwq-anuugsuq-cmtlg labs including vitamin b12 and vitamin dElevated blood sugar-check hgb a1c 07/20/2013 Appointment: Marily Valerio WPtel: [facility] Follow up 07/20/2013 Patient Education: [...] date. 06/22/2013 Appointment: Marily Valerio WPtel[phone] [place] New Patient 06/22/2013 Patient Education: [...] not resolve or if any worse. 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 Hypertension [...] with Dr Combs as scheduled Tingling of zufyqegeulu-sypjcwaq-njpsu labs including vitamin b12 and vitamin d [...] to have left upper lobe removed at [facility] this week to schedule Tobacco [...] blood pressure readings at home. Arthritis of vfcl-kmoe-ppzuk mobic-monitor symptoms-check labs Left lung nodule-most recent [...] bloating-use dicyclomine prn Elevated blood sugar-check Hgb [id number] back on sweets/carbs
--- OUTSIDE RECORDS SUMMARY | 2019-03-31 09:12 | XMS REPORT | CCD ---
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 Unknown Has never used illegal drugs 06/22/2013 Allergies, Adverse Reactions, Alerts Substance Reaction Codes Entered Date Inactivated Date Status lisinopril cough RxNorm: 54666 06/22/2013 No Inactive Date Active SULFA (SULFONAMIDE [...] Start Date Stop Date Status Fill Instructions Fish Oil 1,000 mg capsule RxNorm: 1 Capsule(s) PO TID 01/07/2017 No Stop Date Active metoprolol tartrate 100 mg tablet RxNorm: 317161 1 Tablet(s) PO BID TAKE ONE TABLET BY MOUTH TWICE A DAY 01/07/2017 01/01/2018 Active Diovan 320 mg tablet RxNorm: 515484 TAKE ONE TABLET BY MOUTH EVERY DAY 11/05/2016 03/04/2017 Active Lipitor 10 mg tablet RxNorm: 930971 1 Tablet(s) PO every other day 09/08/2016 01/05/2017 Inactive dc livalo dicyclomine 10 mg capsule RxNorm: 775277 TAKE ONE CAPSULE BY MOUTH THREE TIMES A DAY NEEDED 07/30/2016 01/25/2017 Active Diovan 320 mg tablet RxNorm: 138247 TAKE ONE TABLET BY MOUTH EVERY DAY 06/15/2016 11/04/2016 Inactive Lipitor 10 mg tablet RxNorm: 857659 1 Tablet(s) PO every other day 05/25/2016 05/24/2016 Inactive dc livalo Lipitor 10 mg tablet RxNorm: 874275 1 Tablet(s) PO every other day 05/25/2016 09/07/2016 Inactive dc livalo Livalo 2 mg tablet RxNorm: 410494 1 Tablet(s) PO daily 05/20/2016 05/19/2016 Inactive Livalo 2 mg tablet RxNorm: 993337 1 Tablet(s) PO daily 05/20/2016 05/24/2016 Inactive Celexa 10 mg tablet RxNorm: 817964 1 Tablet(s) PO daily 02/10/2016 04/09/2016 Inactive amlodipine 10 mg tablet RxNorm: 315304 TAKE ONE TABLET BY MOUTH EVERY DAY 02/03/2016 01/27/2017 Active amlodipine 10 mg tablet RxNorm: 985413 TAKE ONE TABLET BY MOUTH EVERY DAY 02/03/2016 04/27/2017 Active amlodipine 10 mg tablet RxNorm: 273582 TAKE ONE TABLET BY MOUTH EVERY DAY 02/03/2016 02/02/2016 Inactive metoprolol tartrate 100 mg tablet RxNorm: 582014 TAKE ONE TABLET BY MOUTH TWICE A DAY 2016 01/06/2017 Inactive Diovan 320 mg tablet RxNorm: 519492 TAKE ONE TABLET BY MOUTH EVERY DAY 12/19/2015 06/14/2016 Inactive tramadol 50 mg tablet RxNorm: 071313 1-2 Tablet(s) PO Q6 PRN 12/09/2015 No Stop Date Active Wellbutrin XL 150 mg 24 hr tablet, extended release RxNorm: 431292 1 Tablet(s) PO daily 12/09/2015 02/09/2016 Inactive Mobic 7.5 mg tablet RxNorm: 775004 TAKE ONE TABLET BY MOUTH DAILY 11/11/2015 01/09/2016 Inactive dicyclomine 10 mg capsule RxNorm: 511885 TAKE ONE CAPSULE BY MOUTH THREE TIMES A DAY NEEDED 11/11/2015 07/29/2016 Inactive Wellbutrin 75 mg tablet RxNorm: 510245 1 Tablet(s) PO BID 10/28/2015 12/08/2015 Inactive simvastatin 20 mg tablet RxNorm: 274860 TAKE ONE TABLET BY MOUTH EVERY DAY 09/05/2015 2016 Inactive Mobic 7.5 mg tablet RxNorm: 950718 1 Tablet(s) PO daily 08/26/2015 11/10/2015 Inactive estradiol 0.5 mg tablet RxNorm: 941012 TAKE ONE TABLET BY MOUTH EVERY DAY 06/11/2015 03/06/2016 Inactive amlodipine 10 mg tablet RxNorm: 350548 TAKE ONE TABLET BY MOUTH EVERY DAY 04/19/2015 01/13/2016 Inactive dicyclomine 10 mg capsule RxNorm: 620376 TAKE ONE CAPSULE BY MOUTH THREE TIMES A DAY NEEDED 04/19/2015 10/15/2015 Inactive simvastatin 20 mg tablet RxNorm: 247991 TAKE ONE TABLET BY MOUTH EVERY DAY 02/21/2015 08/19/2015 Inactive Diovan 320 mg tablet RxNorm: 131268 TAKE ONE TABLET BY MOUTH EVERY DAY 12/19/2014 12/18/2015 Inactive cephalexin 500 mg capsule RxNorm: 890540 1 Capsule(s) PO TID 11/13/2014 11/19/2014 Inactive prednisone 10 mg tablet RxNorm: 471800 3 Tablet(s) PO daily 11/13/2014 11/17/2014 Inactive prednisone 10 mg tablet RxNorm: 174794 3 Tablet(s) PO daily 11/12/2014 11/12/2014 Inactive Kenalog 40 mg/mL suspension for injection RxNorm: 4293793 Milliliter(s) Inj 11/12/2014 11/12/2014 Inactive cephalexin 500 mg capsule RxNorm: 464540 1 Capsule(s) PO TID 11/12/2014 11/12/2014 Inactive ceftriaxone 500 mg solution for injection RxNorm: 9544521 Inj 11/12/2014 11/12/2014 Inactive dicyclomine 10 mg capsule RxNorm: 817612 TAKE ONE CAPSULE BY MOUTH THREE TIMES A DAY NEEDED 11/08/2014 04/18/2015 Inactive metoprolol tartrate 100 mg tablet RxNorm: 254794 TAKE ONE TABLET BY MOUTH TWICE A DAY 10/18/2014 2015 Inactive metoprolol tartrate 100 mg tablet RxNorm: 749855 1 Tablet(s) PO BID 10/18/2014 10/12/2015 Inactive simvastatin 20 mg tablet RxNorm: 166182 TAKE ONE TABLET BY MOUTH EVERY DAY 08/21/2014 02/16/2015 Inactive Diovan 320 mg tablet RxNorm: 531928 TAKE ONE TABLET BY MOUTH EVERY DAY 08/21/2014 12/18/2014 Inactive Carafate 1 gram tablet RxNorm: 930273 1 Tablet(s) PO AC & HS MIX WITH 30ML WATER 07/23/2014 10/20/2014 Inactive dissolve in water and drink as slurry dicyclomine 10 mg capsule RxNorm: 112407 1 Capsule(s) PO TID PRN 07/23/2014 10/20/2014 Inactive simvastatin 20 mg tablet RxNorm: 334361 TAKE ONE TABLET BY MOUTH EVERY DAY 06/07/2014 08/20/2014 Inactive estradiol 0.5 mg tablet RxNorm: 791505 TAKE ONE TABLET BY MOUTH EVERY DAY 05/16/2014 05/10/2015 Inactive amlodipine 10 mg tablet RxNorm: 811708 TAKE ONE TABLET BY MOUTH EVERY DAY 05/16/2014 04/18/2015 Inactive Diovan 320 mg tablet RxNorm: 695877 TAKE ONE TABLET BY MOUTH EVERY DAY 03/26/2014 08/20/2014 Inactive Diflucan 150 mg tablet RxNorm: 946347 1 Tablet(s) PO daily 03/21/2014 03/27/2014 Inactive simvastatin 20 mg tablet RxNorm: 293793 TAKE ONE TABLET BY MOUTH EVERY DAY 03/02/2014 05/30/2014 Inactive estradiol 0.5 mg tablet RxNorm: 607668 TAKE ONE TABLET BY MOUTH EVERY DAY 02/16/2014 05/15/2014 Inactive amlodipine 10 mg tablet RxNorm: 866338 TAKE ONE TABLET BY MOUTH EVERY DAY 02/16/2014 05/15/2014 Inactive pantoprazole 40 mg tablet,delayed release RxNorm: 193457 2 Tablet(s) PO daily 01/25/2014 02/23/2014 Inactive simvastatin 20 mg tablet RxNorm: 660409 Tablet(s) PO TAKE ONE TABLET BY MOUTH EVERY DAY 11/30/2013 03/01/2014 Inactive amlodipine 10 mg tablet RxNorm: 059227 Tablet(s) PO TAKE ONE TABLET BY MOUTH EVERY DAY 11/16/2013 02/15/2014 Inactive metoprolol tartrate 100 mg tablet RxNorm: 227435 1 Tablet(s) PO BID 10/23/2013 10/17/2014 Inactive Diovan 320 mg tablet RxNorm: 366133 Tablet(s) PO TAKE ONE TABLET BY MOUTH EVERY DAY 09/28/2013 03/25/2014 Inactive Carafate 1 gram tablet RxNorm: 254806 1 Tablet(s) PO TID MIX WITH 30ML WATER 09/20/2013 12/18/2013 Inactive estradiol 0.5 mg tablet RxNorm: 630663 1 Tablet(s) PO daily 08/21/2013 02/15/2014 Inactive amlodipine 10 mg tablet RxNorm: 033393 1 Tablet(s) PO daily 08/21/2013 11/15/2013 Inactive simvastatin 20 mg tablet RxNorm: 115723 1 Tablet(s) PO daily 08/21/2013 11/18/2013 Inactive Diovan 320 mg tablet RxNorm: 496651 1 Tablet(s) PO daily 08/21/2013 09/19/2013 Inactive Carafate 1 gram tablet RxNorm: 030544 1 Tablet(s) PO TID MIX WITH 30ML WATER 08/21/2013 09/19/2013 Inactive Diovan 320 mg tablet RxNorm: 805563 1 Tablet(s) PO daily 07/20/2013 08/18/2013 Inactive amlodipine 10 mg tablet RxNorm: 704330 1 Tablet(s) PO daily 07/20/2013 08/18/2013 Inactive estradiol 0.5 mg tablet RxNorm: 788685 1 Tablet(s) PO daily 07/20/2013 08/18/2013 Inactive metoprolol tartrate 100 mg tablet RxNorm: 186008 1 Tablet(s) PO BID 06/22/2013 10/22/2013 Inactive Wellbutrin XL 150 mg 24 hr tablet, extended release RxNorm: 201397 1 Tablet(s) PO daily 06/22/2013 07/19/2013 Inactive calcium 500 mg tablet RxNorm: 2 Tablet(s) PO BID No Start Date Active glucosamine and yjstexrjyzr-rzhjenwq-tkjm#3 oral RxNorm: 2837 oral No Start Date Active aspirin 81 mg tablet RxNorm: 863654 1 Tablet(s) PO daily No Start Date Active Probiotic oral RxNorm: oral No Start Date Active Vitamin D3 1,000 unit capsule RxNorm: 307161 1 Capsule(s) PO daily No Start Date Active simvastatin 20 mg tablet RxNorm: 141442 1 Tablet(s) PO daily No Start Date 08/20/2013 Inactive hyoscyamine 0.125 mg sublingual tablet RxNorm: 7156232 1 Tablet(s) SL TID No Start Date 07/22/2014 Inactive metoprolol tartrate 100 mg tablet RxNorm: 531512 1 Tablet(s) PO daily No Start Date 06/21/2013 Inactive amlodipine 10 mg tablet RxNorm: 639109 1 Tablet(s) PO daily No Start Date 07/19/2013 Inactive Diovan 320 mg tablet RxNorm: 434638 1 Tablet(s) PO daily No Start Date 07/19/2013 Inactive Fish Oil 1,000 mg capsule RxNorm: 1 Capsule(s) PO BID No Start Date 01/06/2017 Inactive omeprazole 20 mg tablet,delayed release RxNorm: 193697 1 Tablet(s) PO daily No Start Date 01/25/2014 Inactive estradiol 0.5 mg tablet RxNorm: 514078 1 Tablet(s) PO daily No Start Date 07/19/2013 Inactive Medication Administered Medication Codes Instructions Start Date Status Kenalog 40 mg/mL suspension for injection RxNorm: 4206361 Milliliter 11/12/2014 No longer Active ceftriaxone 500 mg solution for injection RxNorm: 7818649 11/12/2014 No longer Active Immunizations Vaccine Codes [...] 31.8 pg 05/11/2016 Cbc With Differential Ord2 [place]% 9.5 % 05/11/2016 Cbc With Differential Ord2 [...] 1.76 K/ul 05/11/2016 Cbc With Differential Ord2 [place] ABS# 0.4 K/ul 05/11/2016 Cbc With Differential Ord2 Eos ABS# 0.1 K/ul 05/11/2016 Cbc With Differential Ord2 Baso ABS# 0.0 K/ul 05/11/2016 Comp Metabolic Kiw914 NA 139 mEq/L 05/11/2016 Comp Metabolic Vqt020 K 4.6 mEq/L 05/11/2016 Comp Metabolic Pza340 CL 104 mEq/L 05/11/2016 Comp Metabolic Yxg687 CO2 30.0 mEq/L 05/11/2016 Comp Metabolic Etu442 ANION GAP 10 05/11/2016 Comp Metabolic Ccv047 GLUCOSE 113 mg/dL 05/11/2016 Comp Metabolic Ips476 Creat 0.8 mg/dL 05/11/2016 Comp Metabolic Gxi513 eGFR 74 ml/min/1.73m2 05/11/2016 Comp Metabolic Adl109 BUN 16 mg/dL 05/11/2016 Comp Metabolic Rzk230 B/C Ratio 19.8 Ratio 05/11/2016 Comp Metabolic Mqs627 CALCIUM 10.1 mg/dL 05/11/2016 Comp Metabolic Yxj155 ALK PHOS 44 U/L 05/11/2016 Comp Metabolic Uwp625 AST(SGOT) 20 U/L 05/11/2016 Comp Metabolic Pof773 ALT(SGPT) 17 U/L 05/11/2016 Comp Metabolic Ieg160 BILI T 0.4 mg/dL 05/11/2016 Comp Metabolic Xcw804 ALBUMIN 4.1 g/dL 05/11/2016 Comp Metabolic Txk003 TPRO 6.5 g/dL 05/11/2016 Comp Metabolic Tkr596 GLOB 2.4 g/dL 05/11/2016 Comp Metabolic Iln744 A/G Ratio 1.8 Ratio 05/11/2016 Comp Metabolic Yai486 Osmo 280 mOsmo 05/11/2016 Tsh Ord6 hTSH II 0.96 uIU/mL 05/11/2016 Lipid Ord30 CHOL 283 mg/dL 05/11/2016 Lipid Ord30 HDL 53.0 mg/dl 05/11/2016 Lipid Ord30 TRIG 144 mg/dL 05/11/2016 Lipid Ord30 LDL 201 mg/dL 05/11/2016 Lipid Ord30 C/HDL 5.3 Ratio 05/11/2016 C-Reactive Protein Qnt Crqnt CRP 0.5 mg/dl 12/18/2015 Vitamin D 25 Oh Gwv8390 VITAMIN D, 25 HYDROXY 84.50 ng/mL 12/18/2015 Comp Metabolic Mbd756 NA 139 mEq/L 12/18/2015 Comp Metabolic Nsu742 K 3.8 mEq/L 12/18/2015 Comp Metabolic Tqm697 CL 103 mEq/L 12/18/2015 Comp Metabolic Vsu876 CO2 31.0 mEq/L 12/18/2015 Comp Metabolic Lqu559 ANION GAP 9 12/18/2015 Comp Metabolic Rwm983 GLUCOSE 107 mg/dL 12/18/2015 Comp Metabolic Ptf496 Creat 0.8 mg/dL 12/18/2015 Comp Metabolic Uwo380 eGFR 80 ml/min/1.73m2 12/18/2015 Comp Metabolic Kuu477 BUN 19 mg/dL 12/18/2015 Comp Metabolic Atn777 B/C Ratio 25.0 Ratio 12/18/2015 Comp Metabolic Cfe447 CALCIUM 9.1 mg/dL 12/18/2015 Comp Metabolic Mwv471 ALK PHOS 42 U/L 12/18/2015 Comp Metabolic Jkc076 AST(SGOT) 17 U/L 12/18/2015 Comp Metabolic Cmj224 ALT(SGPT) 18 U/L 12/18/2015 Comp Metabolic Hhv950 BILI T 0.3 mg/dL 12/18/2015 Comp Metabolic Adr526 ALBUMIN 3.8 g/dL 12/18/2015 Comp Metabolic Ghs243 TPRO 5.9 g/dL 12/18/2015 Comp Metabolic Ujf019 GLOB 2.1 g/dL 12/18/2015 Comp Metabolic Eql435 A/G Ratio 1.8 Ratio 12/18/2015 Comp Metabolic Sth983 Osmo 280 mOsmo 12/18/2015 Sed Rate Ord21 [...] 26.4 % 12/18/2015 Cbc With Differential Ord2 [place]% 9.3 % 12/18/2015 Cbc With Differential Ord2 MCH 32.0 pg 12/18/2015 Cbc With Differential Ord2 Eos% 2.4 % 12/18/2015 Cbc With Differential Ord2 MCHC 32.8 pg 12/18/2015 Cbc With Differential Ord2 PLT 267 K/ul 12/18/2015 Cbc With Differential Ord2 Baso% 0.4 % 12/18/2015 Cbc With Differential Ord2 Neut ABS# 3.38 K/ul 12/18/2015 Cbc With Differential Ord2 RDW 13.5 % 12/18/2015 Cbc With Differential Ord2 Lymph ABS# 1.45 K/ul 12/18/2015 Cbc With Differential Ord2 [place] ABS# 0.5 K/ul 12/18/2015 Cbc With Differential [...] 31.6 pg 09/02/2015 Cbc With Differential Ord2 [place]% 8.8 % 09/02/2015 Cbc With Differential Ord2 Eos% 1.4 % 09/02/2015 Cbc With Differential Ord2 MCHC 32.6 pg 09/02/2015 Cbc With Differential Ord2 PLT 271 K/ul 09/02/2015 Cbc With Differential Ord2 Baso% 0.3 % 09/02/2015 Cbc With Differential Ord2 RDW 13.9 % 09/02/2015 Cbc With Differential Ord2 Neut ABS# 3.76 K/ul 09/02/2015 Cbc With Differential Ord2 Lymph ABS# 1.53 K/ul 09/02/2015 Cbc With Differential Ord2 [place] ABS# 0.5 K/ul 09/02/2015 Cbc With Differential Ord2 Eos ABS# 0.1 K/ul 09/02/2015 Cbc With Differential Ord2 Baso ABS# 0.0 K/ul 09/02/2015 Cbc With Differential Ord2 New Analyzer Notice Please note new ref ranges starting 08-14-2015 due to implemntation of new five part differential hematolgy analyzer. 09/02/2015 Tsh Ord6 hTSH II 1.41 uIU/mL 09/02/2015 Comp Metabolic Azc446 NA 136 mEq/L 09/02/2015 Comp Metabolic Ctb485 K 4.5 mEq/L 09/02/2015 Comp Metabolic Uye720 CL 103 mEq/L 09/02/2015 Comp Metabolic Pwh425 CO2 27.0 mEq/L 09/02/2015 Comp Metabolic Isz815 ANION GAP 11 09/02/2015 Comp Metabolic Bgh480 GLUCOSE 109 mg/dL 09/02/2015 Comp Metabolic Gvx568 Creat 1.0 mg/dL 09/02/2015 Comp Metabolic Dnv985 eGFR 62 ml/min/1.73m2 09/02/2015 Comp Metabolic Rth369 BUN 21 mg/dL 09/02/2015 Comp Metabolic Atk920 B/C Ratio 22.1 Ratio 09/02/2015 Comp Metabolic Vhl124 CALCIUM 9.3 mg/dL 09/02/2015 Comp Metabolic Hqz358 ALK PHOS 37 U/L 09/02/2015 Comp Metabolic Yya234 AST(SGOT) 19 U/L 09/02/2015 Comp Metabolic Jzb669 ALT(SGPT) 16 U/L 09/02/2015 Comp Metabolic Eqw415 BILI T 0.4 mg/dL 09/02/2015 Comp Metabolic Gdq446 ALBUMIN 4.1 g/dL 09/02/2015 Comp Metabolic Hfk413 TPRO 6.3 g/dL 09/02/2015 Comp Metabolic Ros228 GLOB 2.2 g/dL 09/02/2015 Comp Metabolic Zow518 A/G Ratio 1.8 Ratio 09/02/2015 Comp Metabolic Aoq495 Osmo 276 mOsmo 09/02/2015 A1C HPLC 7761823 A1C HPLC 01386-5 5.6 % 07/23/2014 VIT D TOTL 8381388 VIT D TOTL 52 NG/ML 07/20/2013 GFR CALC 0849967 GFR AA >60 ML/MIN 07/20/2013 GFR CALC 0442551 GFR NON-AA >60 ML/MIN 07/20/2013 CBC 9853652 WBC 5.9 10e9/L 07/20/2013 CBC 5816869 RBC 4.79 10e12/L 07/20/2013 CBC 4794954 HGB 15.5 g/dL 07/20/2013 CBC 7513880 HCT DET 46.1 % 07/20/2013 CBC 0325807 MCV 96.2 fL 07/20/2013 CBC 5635682 MCH 32.4 pg 07/20/2013 CBC 3695420 MCHC 33.6 g/dL 07/20/2013 CBC 5622055 PLT 286 10e9/L 07/20/2013 CBC 7586049 MPV 10.8 fL 07/20/2013 CBC 6275233 ERINN % 66.1 % 07/20/2013 CBC 4114172 LY % 24.3 % 07/20/2013 CBC 8827610 MON % 8.1 % 07/20/2013 CBC 1321159 EOS % 1.2 % 07/20/2013 CBC 4231593 BASO % 0.3 % 07/20/2013 CBC 6683411 RDW 12.7 % 07/20/2013 CBC 3890143 ABS ERINN 3.90 10e9/L 07/20/2013 CBC 1042362 ABS LYMPH 1.43 10e9/L 07/20/2013 CBC 9753858 ABS MONO 0.48 10e9/L 07/20/2013 CBC 8860426 ABS EOS 0.07 10e9/L 07/20/2013 CBC 1347697 ABS BASO 0.02 10e9/L 07/20/2013 CBC 6154833 RDW-SD 44.1 fL 07/20/2013 A1C HPLC 9777592 A1C HPLC 56800-1 5.9 % 07/20/2013 LIPID GRP HDL TEST 54 MG/DL 07/20/2013 LIPID GRP TRIG 98 MG/DL 07/20/2013 LIPID GRP TEST LDL 95 MG/DL 07/20/2013 LIPID GRP CHOL 169 MG/DL 07/20/2013 LIPID GRP RCHOL/HDL 3.13 RATIO 07/20/2013 TSH 5689495 TSH 1.032 uIU/ML 07/20/2013 CHEM 14 7604335 AST 18 U/L 07/20/2013 CHEM 14 5775216 ALT 13 IU/L 07/20/2013 CHEM 14 2309610 BUN 19 MG/DL 07/20/2013 CHEM 14 1939763 ALBUMIN 4.5 GM/DL 07/20/2013 CHEM 14 5803940 CHLORIDE 105 MMOL/L 07/20/2013 CHEM 14 4867888 BILI TOT 0.5 MG/DL 07/20/2013 CHEM 14 9467994 ALK PHOS 40 U/L 07/20/2013 CHEM 14 2182336 SODIUM 137 MMOL/L 07/20/2013 CHEM 14 9687271 CREATININE 0.76 MG/DL 07/20/2013 CHEM 14 0771051 CALCIUM 10.0 MG/DL 07/20/2013 CHEM 14 4133751 POTASSIUM 4.6 MMOL/L 07/20/2013 CHEM 14 1899004 PROT TOT 6.5 GM/DL 07/20/2013 CHEM 14 1749237 GLUCOSE 118 MG/DL 07/20/2013 CHEM 14 2524411 BICARB 26 MMOL/L 07/20/2013 CHEM 14 6125091 ANION GAP 6 MEQ/L 07/20/2013 VIT B 12 8002055 VIT B 12 492 PG/ML 07/20/2013 Review [...] 06/22/2013 None Procedures Procedure Codes Date TOBACCO-USE ADMINISTRATIVE OFFICER 3-[address]: 626664424 CPT-4: E8224Eqiegpv 09/08/2016 ADMIN INFLUENZA VIRUS VAC CPT-4: C9647Yfbolfa 05/11/2016 PNEUMOCOCCAL VACC 13 SAULO IM Formatting Model/CDA Sections, Assigned to/Rafia Cuadra SNOMED CT: 28353320 CPT-4: 45734Zvgbcqd 05/11/2016 ADMIN PNEUMOCOCCAL VACCINE SNOMED CT: 43110916 CPT-4: L7434Cxjisle 05/11/2016 FLU VACC 4 SAULO 3 YRS PLUS IM Formatting Model/CDA Sections, Assigned to/Rafia Cuadra SNOMED CT: 33945363 CPT-4: 66958Sicotmd 05/11/2016 TOBACCO-USE ADMINISTRATIVE OFFICER 3-[address]: 680406439 CPT-4: X0400Dveicxn 02/10/2016 TRIAMCINOLONE ACET INJ NOS CPT-4: N9592Iqsacyb 12/16/2015 DRAIN/INJECT JOINT/BURSA CPT-4: 67508Yobjpaf 12/16/2015 TOBACCO-USE ADMINISTRATIVE OFFICER 3-[address]: 172631802 CPT-4: S9361Qxqswqf 12/09/2015 TOBACCO-USE ADMINISTRATIVE OFFICER 3-[address]: 258970963 CPT-4: F0994Gbmnxzu 10/28/2015 THER/PROPH/DIAG INJ SC/IM CPT-4: 43228Ynhibec 11/12/2014 TRIAMCINOLONE ACET INJ NOS CPT-4: S1187Qxpmqvs 11/12/2014 ROCEPHIN, PER 250 MG CPT-4: Q6816Sdqmzey 11/12/2014 ROUTINE VENIPUNCTURE CPT-4: 24135Hjhphlw 07/23/2014 URINALYSIS NONAUTO W/O SCOPE CPT-4: 60991Borgfzq 03/21/2014 ROUTINE VENIPUNCTURE CPT-4: 25641Acswdjx 07/20/2013 PRESCRIP TRANSMIT VIA ERX SY CPT-4: S7162Gmkdved 07/20/2013 PRESCRIP TRANSMIT VIA ERX SY CPT-4: T0277Pliyyba 06/22/2013 Vital Signs Date Vital 01/07/2017 Blood Pressure 1: 140/70 Code: 8480-6 BMI: 28.8 Code: 22870-9 Heart Rate 1: 68 bpm Height: 5'5" SpO2: 96% Weight: 173 lbs 09/08/2016 Blood Pressure 1: 134/70 Code: 8480-6 BMI: 29.1 Code: 87198-6 Heart Rate 1: 68 bpm Height: 5'5" SpO2: 99% Weight: 175 lbs 05/11/2016 Blood Pressure 1: 138/88 Code: 8480-6 BMI: 29.2 Code: 79175-8 Heart Rate 1: 67 bpm Height: 5'6" SpO2: 95% Weight: 178 lbs 02/10/2016 Blood Pressure 1: 148/82 Code: 8480-6 BMI: 28.8 Code: 51525-1 Heart Rate 1: 63 bpm Height: 5'6" SpO2: 97% Weight: 176 lbs 12/18/2015 Blood Pressure 1: 130/78 Code: 8480-6 BMI: 28.8 Code: 81654-9 Heart Rate 1: 66 bpm Height: 5'6" SpO2: 98% Weight: 176 lbs 12/16/2015 Blood Pressure 1: 162/100 Code: 8480-6 BMI: 28.8 Code: 82554-6 Heart Rate 1: 65 bpm Height: 5'6" SpO2: 98% Weight: 176 lbs 12/09/2015 Blood Pressure 1: 142/70 Code: 8480-6 BMI: 28.4 Code: 32296-8 Heart Rate 1: 65 bpm Height: 5'6" SpO2: 96% Weight: 173 lbs 10/28/2015 Blood Pressure 1: 160/82 Code: 8480-6 Blood Pressure 1: 140/86 Code: 8480-6 BMI: 28.5 Code: 07501-7 Heart Rate 1: 60 bpm Height: 5'6" SpO2: 96% Weight: 174 lbs 08/26/2015 Blood Pressure 1: 158/80 Code: 8480-6 Blood Pressure 1: 148/88 Code: 8480-6 BMI: 28.0 Code: 68178-5 Heart Rate 1: 68 bpm Height: 5'6" SpO2: 98% Weight: 171 lbs 02/12/2015 Blood Pressure 1: 136/74 Code: 8480-6 BMI: 25.9 Code: 31632-4 Heart Rate 1: 61 bpm Height: 5'6" SpO2: 97% Weight: 158 lbs 11/12/2014 Blood Pressure 1: 140/82 Code: 8480-6 BMI: 25.9 Code: 53719-1 Heart Rate 1: 64 bpm Height: 5'6" SpO2: 97% Weight: 158 lbs 07/23/2014 Blood Pressure 1: 138/88 Code: 8480-6 BMI: 25.6 Code: 72026-4 Heart Rate 1: 57 bpm Height: 5'6" SpO2: 95% Weight: 156 lbs 03/21/2014 Blood Pressure 1: 124/64 Code: 8480-6 Heart Rate 1: 64 bpm Weight: 147 lbs 01/25/2014 Blood Pressure 1: 130/70 Code: 8480-6 BMI: 24.4 Code: 82013-5 Height: 5'6" Weight: 149 lbs 10/23/2013 Blood Pressure 1: 152/82 Code: 8480-6 BMI: 25.7 Code: 45974-7 Heart Rate 1: 60 bpm Height: 5'6" Weight: 157 lbs 08/21/2013 Blood Pressure 1: 142/90 Code: 8480-6 BMI: 25.9 Code: 74760-6 Heart Rate 1: 56 bpm Height: 5'6" Weight: 158 lbs 07/20/2013 Blood Pressure 1: 164/80 Code: 8480-6 BMI: 26.2 Code: 63991-4 Heart Rate 1: 60 bpm Height: 5'6" SpO2: 98% Weight: 160 lbs 06/22/2013 Blood Pressure 1: 140/84 Code: 8480-6 BMI: 28.2 Code: 49452-5 Heart Rate 1: 60 bpm Height: 5'6" [...] data Encounters Encounter Performer Location Codes Date ([id number]) [id number] EST. PATIENT, LEVEL III Diagnosis: Essential (primary) hypertension[ICD10: I10] Diagnosis: Malignant neoplasm of upper lobe, left bronchus or lung[ICD10: C34.12] Diagnosis: Chronic obstructive pulmonary disease, unspecified[ICD10: J44.9] Marily Gonzalez MD, [facility] CPT-4: 65248 01/07/2017 [id number]) 08039 EST. PATIENT, LEVEL IV Diagnosis: Essential (primary) hypertension[ICD10: I10] Diagnosis: Mixed hyperlipidemia[ICD10: E78.2] Diagnosis: Tobacco use[ICD10: Z72.0] Diagnosis: Malignant neoplasm of upper lobe, left bronchus or lung[ICD10: C34.12] Marily Gonzalez MD, [facility] CPT-4: 09424 09/08/2016 [id number]) [id number] EST. PATIENT, LEVEL IV Diagnosis: Essential (primary) hypertension[ICD10: I10] Diagnosis: Mixed hyperlipidemia[ICD10: E78.2] Diagnosis: Generalized anxiety disorder[ICD10: F41.1] Diagnosis: Other specified disorders of bone density and structure, multiple sites[ICD10: M85.89] Marily Gonzalez MD, [facility] CPT-4: 17217 05/11/2016 [id number]) [id number] EST. PATIENT, LEVEL IV Diagnosis: Essential (primary) hypertension[ICD10: I10] Diagnosis: Generalized anxiety disorder[ICD10: F41.1] Diagnosis: Tobacco use[ICD10: Z72.0] Marily Gonzalez MD, [facility] CPT-4: 99739 02/10/2016 [id number] EST. PATIENT, LEVEL IV Diagnosis: Myalgia[ICD10: M79.1] Diagnosis: Low back pain[ICD10: M54.5] Joy Gonzalez MD, [facility] CPT-4: 07632 12/18/2015 05140 EST. PATIENT, LEVEL IV Diagnosis: Low back pain[ICD10: M54.5] Diagnosis: Pain in right hip[ICD10: M25.551] Joy Gonzalez MD, [facility] CPT-4: 81911 12/16/2015 ([id number]) 76442 EST. PATIENT, LEVEL IV Diagnosis: Low back pain[ICD10: M54.5] Diagnosis: Malignant neoplasm of upper lobe, left bronchus or lung[ICD10: C34.12] Diagnosis: Tobacco use[ICD10: Z72.0] Diagnosis: Essential (primary) hypertension[ICD10: I10] Diagnosis: Generalized anxiety disorder[ICD10: F41.1] Marily Gonzalez MD, [facility] CPT-4: 02046 12/09/2015 ([id number]) 89347 EST. PATIENT, LEVEL IV Diagnosis: Essential (primary) hypertension[ICD10: I10] Diagnosis: Tobacco use[ICD10: Z72.0] Diagnosis: Solitary pulmonary nodule[ICD10: R91.1] Marily Gonzalez MD, [facility] CPT-4: 28756 10/28/2015 ([id number]) 17387 EST. 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 PATIENT, LEVEL IV Diagnosis: ESSENTIAL HYPERTENSION[ICD9: 401.9] Diagnosis: Pulmonary nodule[ICD9: 793.11] Teresa Gonzalez MD, [facility] CPT-4: 16553 02/12/2015 ([id number]) 80519 EST. PATIENT, LEVEL III Diagnosis: ACUTE BRONCHITIS[ICD9: 466.0] Diagnosis: ALLERGIC RHINITIS[ICD9: 477.9] Teresa Gonzalez MD [facility] CPT-4: 40674 11/12/2014 ([id number]) 13246 EST. PATIENT, LEVEL IV Diagnosis: ESOPHAGEAL REFLUX[ICD9: 530.81] Diagnosis: ESSENTIAL HYPERTENSION[ICD9: 401.9] Diagnosis: Elevated blood sugar[ICD9: 790.29] Marily Gonzalez MD [facility] CPT- 4: 77820 07/23/2014 ([id number]) 59913 EST. PATIENT, LEVEL III Diagnosis: Vaginal yeast infection[ICD9: 112.1] Diagnosis: Vaginal burning[ICD9: 625.8] Diagnosis: History of UTI[ICD9: V13.02] Diagnosis: Dysuria[ICD9: 788.1] Marily Gonzalez MD, [facility] CPT-4: 19925 03/21/2014 ([id number]) 80118 EST. PATIENT, LEVEL III Diagnosis: ESSENTIAL HYPERTENSION[ICD9: 401.9] Marily [facility] MD [facility] [facility] CPT[facility] 54235 01/25/2014 ([id number]) [id number] EST. PATIENT, LEVEL III Diagnosis: ESSENTIAL HYPERTENSION[SNOMED: 70528630] Diagnosis: ESOPHAGEAL REFLUX[ICD9: 530.81] Teresa Gonzalez MD [facility] CPT-4: 92151 10/23/2013 ([id number]) 34378 EST. PATIENT, LEVEL IV Diagnosis: ESOPHAGEAL REFLUX[ICD9: 530.81] Diagnosis: ESSENTIAL HYPERTENSION[SNOMED: 68306822] Diagnosis: Rash[ICD9: 782.1] Marily Gonzalez MD, [facility] CPT-4: 65498 08/21/2013 ([id number]) 48400 EST. PATIENT, LEVEL IV Diagnosis: Muscle ache of extremity[ICD9: 729.1] Diagnosis: Tingling in extremities[ICD9: 782.0] Diagnosis: ESSENTIAL HYPERTENSION[SNOMED: 29986000] Diagnosis: GERD (gastroesophageal reflux disease)[ICD9: 530.81] Diagnosis: Elevated blood sugar[ICD9: 790.29] [facility] CPT- 4: 89534 07/20/2013 OFFICE VISIT, NEW - LEVEL 3 Diagnosis: ESSENTIAL HYPERTENSION[SNOMED: 53175792] Diagnosis: Tobacco use[ICD9: 305.1] Diagnosis: Depression[ICD9: 311] [facility] CPT-4: 07938 06/22/2013 ([id number]) BEHAV CHNG SMOKING 3-10 MIN Diagnosis: [ICD9: ] [facility] CPT-4: 12897 06/22/2013 Plan of Care Planned Activity Notes [...] quit smoking-going to start nicotine patches 01/07/2017 Patient Education: Patient Medication Summary Completed 01/07/2017 Patient Education: Smoking and Tobacco Addiction Completed 01/07/2017 Patient Education: Hypertension Completed 01/07/2017 Appointment: Marily Valerio WPtel: [address] [place], [place] [phone] (30 min) [facility] 01/05/2017 Visit Plan: Hypertension - well controlled [...] Ryan in 09/08/2016 Appointment: Marily Valerio WPtel: [address] [place] [address] (15 min) Moderate 09/08/2016 Patient Education: Patient [...] bone density 05/11/2016 Appointment: Marily Valerio WPtel: [address] [place], [place] [phone] (15 min) Moderate 05/11/2016 Patient Education: Patient [...] Care Plan: MRI LUMBAR SPINE W/O [facility] : 10208-9 Cancelled 01/17/2016 Visit Plan: Continued Low back [...] they worsen. 12/18/2015 Appointment: Mar[facility] Val[facility]Ptel[phone] (30 min) Complex 12/18/2015 Patient Education: Patient [...] they worsen. 12/16/2015 Appointment: Joy Flores WPtel: [facility] (15 min) Moderate 12/16/2015 Patient Education: Patient [...] to have left upper lobe removed at [facility] this week to schedule Tobacco use-no cigarettes [...] in blood pressure readings at home.Arthritis of rcts-lyky-qdtpj mobic- monitor symptoms-check labs Left lung nodule-most recent scan shows slight incre ase in size and needs further evaluation-managed by Dr Corea-[facility] 08/26/2015 Appointment: Marily Valerio WPtel: [phone] [place] (30 min) Complex 08/26/2015 Patient Education: Patient Medication Summary Completed 08/26/2015 Patient Education: Hypertension Completed 08/26/2015 Appointment: eTresa Gonzalez WPtel: [facility] (15 min) Moderate 08/15/2015 Appointment: Teresa Gonzalez WPtel: [facility] (15 min) Moderate 08/15/2015 Visit Plan: Hypertension - well controlled - continue with current medications, continue with no added salt diet. Pt has been encouraged to exercise daily.The pt has been advised to call the office if there are any acute concerns about change in blood pressure readings at home.Pulmonary nodule - Recommended repeat CT scan. 02/12/2015 Appointment: Teresa Gonzalez WPtel: [facility] Follow up 02/12/2015 Patient Education: Patient Medication [...] bloating-use dicyclomine prn Elevated blood sugar-check Hgb [id number] back on sweets/carbs 07/23/2014 Appointment: Follow up [...] at home. 01/25/2014 Appointment: Marily Valerio WPtel: [phone] Follow up 01/25/2014 Patient Education: Patient Medication [...] an EGD by Dr. Mckeon. 10/23/2013 Appointment: LisaTeresa WPtel: [facility] Follow up 10/23/2013 Patient Education: Patient Medication [...] any worse. 08/21/2013 Appointment: Marily Valerio WPtel: [phone] Follow up 08/21/2013 Patient Education: Patient Medication [...] up with Dr Combs as scheduledTingling of mfzlzazgeit-ozrpdmiw-qzgxz labs including vitamin b12 and vitamin dElevated blood sugar-check hgb a1c 07/20/2013 Appointment: Marily Valerio WPtel: [phone] Follow up 07/20/2013 Patient Education: Patient [...] quit date. 06/22/2013 Appointment: Marily Valerio WPtel: [address] [place], [place] [phone] New Patient 06/22/2013 Patient Education: Patient Medication [...] not resolve or if any worse. BONE DENSITY-MED PEDS MON-THURS FLU AND PREVNAR 13 . Hypertension [...] with Dr Combs as scheduled Tingling of jcndrpknjxw-cpohhawf-moewb labs including vitamin b12 and vitamin d [...] to [facility] to [facility] Tobacco use-no [...] blood pressure readings at home. Arthritis of ejig-venf-igghf mobic-monitor symptoms-check labs Left lung nodule-most recent [...] bloating-use dicyclomine prn Elevated blood sugar-check Hgb [id number] back on sweets/carbs
--- OUTSIDE RECORDS SUMMARY | 2019-03-31 09:15 | XMS REPORT | CCD ---
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 Unknown Has never used illegal drugs 06/22/2013 Allergies, Adverse Reactions, Alerts Substance Reaction Codes Entered Date Inactivated Date Status lisinopril cough RxNorm: 82821 06/22/2013 No Inactive Date Active SULFA (SULFONAMIDE [...] Active metoprolol tartrate 100 mg tablet RxNorm: 202915 1 Tablet(s) PO BID TAKE ONE TABLET BY MOUTH TWICE A DAY 01/07/2017 01/01/2018 Active Diovan 320 mg tablet RxNorm: 620751 TAKE ONE TABLET BY MOUTH EVERY DAY 11/05/2016 03/04/2017 Active Lipitor 10 mg tablet RxNorm: 872570 1 Tablet(s) PO every other day 09/08/2016 01/05/2017 Inactive dc livalo dicyclomine 10 mg capsule RxNorm: 037189 TAKE ONE CAPSULE BY MOUTH THREE TIMES A DAY NEEDED 07/30/2016 01/25/2017 Active Diovan 320 mg tablet RxNorm: 032884 TAKE ONE TABLET BY MOUTH EVERY DAY 06/15/2016 11/04/2016 Inactive Lipitor 10 mg tablet RxNorm: 994356 1 Tablet(s) PO every other day 05/25/2016 05/24/2016 Inactive dc livalo Lipitor 10 mg tablet RxNorm: 846325 1 Tablet(s) PO every other day 05/25/2016 09/07/2016 Inactive dc livalo Livalo 2 mg tablet RxNorm: 796660 1 Tablet(s) PO daily 05/20/2016 05/19/2016 Inactive Livalo 2 mg tablet RxNorm: 353880 1 Tablet(s) PO daily 05/20/2016 05/24/2016 Inactive Celexa 10 mg tablet RxNorm: 688646 1 Tablet(s) PO daily 02/10/2016 04/09/2016 Inactive amlodipine 10 mg tablet RxNorm: 636939 TAKE ONE TABLET BY MOUTH EVERY DAY 02/03/2016 01/27/2017 Active amlodipine 10 mg tablet RxNorm: 549887 TAKE ONE TABLET BY MOUTH EVERY DAY 02/03/2016 04/27/2017 Active amlodipine 10 mg tablet RxNorm: 600439 TAKE ONE TABLET BY MOUTH EVERY DAY 02/03/2016 02/02/2016 Inactive metoprolol tartrate 100 mg tablet RxNorm: 447612 TAKE ONE TABLET BY MOUTH TWICE A DAY 2016 01/06/2017 Inactive Diovan 320 mg tablet RxNorm: 706917 TAKE ONE TABLET BY MOUTH EVERY DAY 12/19/2015 06/14/2016 Inactive tramadol 50 mg tablet RxNorm: 145496 1-2 Tablet(s) PO Q6 PRN 12/09/2015 No Stop Date Active Wellbutrin XL 150 mg 24 hr tablet, extended release RxNorm: 655897 1 Tablet(s) PO daily 12/09/2015 02/09/2016 Inactive Mobic 7.5 mg tablet RxNorm: 717945 TAKE ONE TABLET BY MOUTH DAILY 11/11/2015 01/09/2016 Inactive dicyclomine 10 mg capsule RxNorm: 821542 TAKE ONE CAPSULE BY MOUTH THREE TIMES A DAY NEEDED 11/11/2015 07/29/2016 Inactive Wellbutrin 75 mg tablet RxNorm: 270076 1 Tablet(s) PO BID 10/28/2015 12/08/2015 Inactive simvastatin 20 mg tablet RxNorm: 936652 TAKE ONE TABLET BY MOUTH EVERY DAY 09/05/2015 2016 Inactive Mobic 7.5 mg tablet RxNorm: 891680 1 Tablet(s) PO daily 08/26/2015 11/10/2015 Inactive estradiol 0.5 mg tablet RxNorm: 199145 TAKE ONE TABLET BY MOUTH EVERY DAY 06/11/2015 03/06/2016 Inactive amlodipine 10 mg tablet RxNorm: 594317 TAKE ONE TABLET BY MOUTH EVERY DAY 04/19/2015 01/13/2016 Inactive dicyclomine 10 mg capsule RxNorm: 765451 TAKE ONE CAPSULE BY MOUTH THREE TIMES A DAY NEEDED 04/19/2015 10/15/2015 Inactive simvastatin 20 mg tablet RxNorm: 946380 TAKE ONE TABLET BY MOUTH EVERY DAY 02/21/2015 08/19/2015 Inactive Diovan 320 mg tablet RxNorm: 692740 TAKE ONE TABLET BY MOUTH EVERY DAY 12/19/2014 12/18/2015 Inactive cephalexin 500 mg capsule RxNorm: 131206 1 Capsule(s) PO TID 11/13/2014 11/19/2014 Inactive prednisone 10 mg tablet RxNorm: 346005 3 Tablet(s) PO daily 11/13/2014 11/17/2014 Inactive prednisone 10 mg tablet RxNorm: 423608 3 Tablet(s) PO daily 11/12/2014 11/12/2014 Inactive Kenalog 40 mg/mL suspension for injection RxNorm: 9265250 Milliliter(s) Inj 11/12/2014 11/12/2014 Inactive cephalexin 500 mg capsule RxNorm: 692995 1 Capsule(s) PO TID 11/12/2014 11/12/2014 Inactive ceftriaxone 500 mg solution for injection RxNorm: 8666201 Inj 11/12/2014 11/12/2014 Inactive dicyclomine 10 mg capsule RxNorm: 270961 TAKE ONE CAPSULE BY MOUTH THREE TIMES A DAY NEEDED 11/08/2014 04/18/2015 Inactive metoprolol tartrate 100 mg tablet RxNorm: 334790 TAKE ONE TABLET BY MOUTH TWICE A DAY 10/18/2014 2015 Inactive metoprolol tartrate 100 mg tablet RxNorm: 934777 1 Tablet(s) PO BID 10/18/2014 10/12/2015 Inactive simvastatin 20 mg tablet RxNorm: 167569 TAKE ONE TABLET BY MOUTH EVERY DAY 08/21/2014 02/16/2015 Inactive Diovan 320 mg tablet RxNorm: 776242 TAKE ONE TABLET BY MOUTH EVERY DAY 08/21/2014 12/18/2014 Inactive Carafate 1 gram tablet RxNorm: 520808 1 Tablet(s) PO AC & HS MIX WITH 30ML WATER 07/23/2014 10/20/2014 Inactive dissolve in water and drink as slurry dicyclomine 10 mg capsule RxNorm: 161268 1 Capsule(s) PO TID PRN 07/23/2014 10/20/2014 Inactive simvastatin 20 mg tablet RxNorm: 373349 TAKE ONE TABLET BY MOUTH EVERY DAY 06/07/2014 08/20/2014 Inactive estradiol 0.5 mg tablet RxNorm: 908600 TAKE ONE TABLET BY MOUTH EVERY DAY 05/16/2014 05/10/2015 Inactive amlodipine 10 mg tablet RxNorm: 491321 TAKE ONE TABLET BY MOUTH EVERY DAY 05/16/2014 04/18/2015 Inactive Diovan 320 mg tablet RxNorm: 067712 TAKE ONE TABLET BY MOUTH EVERY DAY 03/26/2014 08/20/2014 Inactive Diflucan 150 mg tablet RxNorm: 212619 1 Tablet(s) PO daily 03/21/2014 03/27/2014 Inactive simvastatin 20 mg tablet RxNorm: 649470 TAKE ONE TABLET BY MOUTH EVERY DAY 03/02/2014 05/30/2014 Inactive estradiol 0.5 mg tablet RxNorm: 101279 TAKE ONE TABLET BY MOUTH EVERY DAY 02/16/2014 05/15/2014 Inactive amlodipine 10 mg tablet RxNorm: 763213 TAKE ONE TABLET BY MOUTH EVERY DAY 02/16/2014 05/15/2014 Inactive pantoprazole 40 mg tablet,delayed release RxNorm: 476349 2 Tablet(s) PO daily 01/25/2014 02/23/2014 Inactive simvastatin 20 mg tablet RxNorm: 851621 Tablet(s) PO TAKE ONE TABLET BY MOUTH EVERY DAY 11/30/2013 03/01/2014 Inactive amlodipine 10 mg tablet RxNorm: 944862 Tablet(s) PO TAKE ONE TABLET BY MOUTH EVERY DAY 11/16/2013 02/15/2014 Inactive metoprolol tartrate 100 mg tablet RxNorm: 473420 1 Tablet(s) PO BID 10/23/2013 10/17/2014 Inactive Diovan 320 mg tablet RxNorm: 820180 Tablet(s) PO TAKE ONE TABLET BY MOUTH EVERY DAY 09/28/2013 03/25/2014 Inactive Carafate 1 gram tablet RxNorm: 472759 1 Tablet(s) PO TID MIX WITH 30ML WATER 09/20/2013 12/18/2013 Inactive estradiol 0.5 mg tablet RxNorm: 893771 1 Tablet(s) PO daily 08/21/2013 02/15/2014 Inactive amlodipine 10 mg tablet RxNorm: 716563 1 Tablet(s) PO daily 08/21/2013 11/15/2013 Inactive simvastatin 20 mg tablet RxNorm: 674726 1 Tablet(s) PO daily 08/21/2013 11/18/2013 Inactive Diovan 320 mg tablet RxNorm: 872006 1 Tablet(s) PO daily 08/21/2013 09/19/2013 Inactive Carafate 1 gram tablet RxNorm: 437105 1 Tablet(s) PO TID MIX WITH 30ML WATER 08/21/2013 09/19/2013 Inactive Diovan 320 mg tablet RxNorm: 768712 1 Tablet(s) PO daily 07/20/2013 08/18/2013 Inactive amlodipine 10 mg tablet RxNorm: 339659 1 Tablet(s) PO daily 07/20/2013 08/18/2013 Inactive estradiol 0.5 mg tablet RxNorm: 461844 1 Tablet(s) PO daily 07/20/2013 08/18/2013 Inactive metoprolol tartrate 100 mg tablet RxNorm: 926127 1 Tablet(s) PO BID 06/22/2013 10/22/2013 Inactive Wellbutrin XL 150 mg 24 hr tablet, extended release RxNorm: 682991 1 Tablet(s) PO daily 06/22/2013 07/19/2013 Inactive calcium 500 mg tablet RxNorm: 2 Tablet(s) PO BID No Start Date Active glucosamine and eplfdtvkydc-sklmxlox-niyn#3 oral RxNorm: 2837 oral No Start Date Active aspirin 81 mg tablet RxNorm: 888508 1 Tablet(s) PO daily No Start Date Active Probiotic oral RxNorm: oral No Start Date Active Vitamin D3 1,000 unit capsule RxNorm: 616585 1 Capsule(s) PO daily No Start Date Active simvastatin 20 mg tablet RxNorm: 774632 1 Tablet(s) PO daily No Start Date 08/20/2013 Inactive hyoscyamine 0.125 mg sublingual tablet RxNorm: 2508226 1 Tablet(s) SL TID No Start Date 07/22/2014 Inactive metoprolol tartrate 100 mg tablet RxNorm: 792397 1 Tablet(s) PO daily No Start Date 06/21/2013 Inactive amlodipine 10 mg tablet RxNorm: 374299 1 Tablet(s) PO daily No Start Date 07/19/2013 Inactive Diovan 320 mg tablet RxNorm: 205210 1 Tablet(s) PO daily No Start Date 07/19/2013 Inactive Fish Oil 1,000 mg capsule RxNorm: 1 Capsule(s) PO BID No Start Date 01/06/2017 Inactive omeprazole 20 mg tablet,delayed release RxNorm: 191634 1 Tablet(s) PO daily No Start Date 01/25/2014 Inactive estradiol 0.5 mg tablet RxNorm: 750303 1 Tablet(s) PO daily No Start Date 07/19/2013 Inactive Medication Administered Medication Codes Instructions Start Date Status Kenalog 40 mg/mL suspension for injection RxNorm: 1525205 Milliliter 11/12/2014 No longer Active ceftriaxone 500 mg solution for injection RxNorm: 3938931 11/12/2014 No longer Active Immunizations Vaccine Codes [...] 31.8 pg 05/11/2016 Cbc With Differential Ord2 [place]comb% 9.5 % 05/11/2016 Cbc With Differential Ord2 [...] 1.76 K/ul 05/11/2016 Cbc With Differential Ord2 [place] ABS# 0.4 K/ul 05/11/2016 Cbc With Differential Ord2 Eos ABS# 0.1 K/ul 05/11/2016 Cbc With Differential Ord2 Baso ABS# 0.0 K/ul 05/11/2016 Comp Metabolic Rug133 NA 139 mEq/L 05/11/2016 Comp Metabolic Ons024 K 4.6 mEq/L 05/11/2016 Comp Metabolic Wvx804 CL 104 mEq/L 05/11/2016 Comp Metabolic Msp273 CO2 30.0 mEq/L 05/11/2016 Comp Metabolic Yuf135 ANION GAP 10 05/11/2016 Comp Metabolic Exx943 GLUCOSE 113 mg/dL 05/11/2016 Comp Metabolic Ggr141 Creat 0.8 mg/dL 05/11/2016 Comp Metabolic Xrq796 eGFR 74 ml/min/1.73m2 05/11/2016 Comp Metabolic Mld185 BUN 16 mg/dL 05/11/2016 Comp Metabolic Ktv472 B/C Ratio 19.8 Ratio 05/11/2016 Comp Metabolic Fdw883 CALCIUM 10.1 mg/dL 05/11/2016 Comp Metabolic Ycf937 ALK PHOS 44 U/L 05/11/2016 Comp Metabolic Ktt338 AST(SGOT) 20 U/L 05/11/2016 Comp Metabolic Bau539 ALT(SGPT) 17 U/L 05/11/2016 Comp Metabolic Gix765 BILI T 0.4 mg/dL 05/11/2016 Comp Metabolic Ycd004 ALBUMIN 4.1 g/dL 05/11/2016 Comp Metabolic Ljp816 TPRO 6.5 g/dL 05/11/2016 Comp Metabolic Asx816 GLOB 2.4 g/dL 05/11/2016 Comp Metabolic Occ692 A/G Ratio 1.8 Ratio 05/11/2016 Comp Metabolic Bmr199 Osmo 280 mOsmo 05/11/2016 Tsh Ord6 hTSH II 0.96 uIU/mL 05/11/2016 Lipid Ord30 CHOL 283 mg/dL 05/11/2016 Lipid Ord30 HDL 53.0 mg/dl 05/11/2016 Lipid Ord30 TRIG 144 mg/dL 05/11/2016 Lipid Ord30 LDL 201 mg/dL 05/11/2016 Lipid Ord30 C/HDL 5.3 Ratio 05/11/2016 C-Reactive Protein Qnt Crqnt CRP 0.5 mg/dl 12/18/2015 Vitamin D 25 Oh Jdm5874 VITAMIN D, 25 HYDROXY 84.50 ng/mL 12/18/2015 Comp Metabolic Jjc706 NA 139 mEq/L 12/18/2015 Comp Metabolic Rgv611 K 3.8 mEq/L 12/18/2015 Comp Metabolic Qgi010 CL 103 mEq/L 12/18/2015 Comp Metabolic Zeb586 CO2 31.0 mEq/L 12/18/2015 Comp Metabolic Mjz414 ANION GAP 9 12/18/2015 Comp Metabolic Pbf910 GLUCOSE 107 mg/dL 12/18/2015 Comp Metabolic Ptz267 Creat 0.8 mg/dL 12/18/2015 Comp Metabolic Dlq137 eGFR 80 ml/min/1.73m2 12/18/2015 Comp Metabolic Kok157 BUN 19 mg/dL 12/18/2015 Comp Metabolic Xxq414 B/C Ratio 25.0 Ratio 12/18/2015 Comp Metabolic Eat267 CALCIUM 9.1 mg/dL 12/18/2015 Comp Metabolic Dfq156 ALK PHOS 42 U/L 12/18/2015 Comp Metabolic Qgn893 AST(SGOT) 17 U/L 12/18/2015 Comp Metabolic Trx091 ALT(SGPT) 18 U/L 12/18/2015 Comp Metabolic Hfe293 BILI T 0.3 mg/dL 12/18/2015 Comp Metabolic Xrm214 ALBUMIN 3.8 g/dL 12/18/2015 Comp Metabolic Tkl115 TPRO 5.9 g/dL 12/18/2015 Comp Metabolic Xkl434 GLOB 2.1 g/dL 12/18/2015 Comp Metabolic Fgw737 A/G Ratio 1.8 Ratio 12/18/2015 Comp Metabolic Wrr787 Osmo 280 mOsmo 12/18/2015 Sed Rate Ord21 ESR 9 mm/hr 12/18/2015 Cbc With Differential Ord2 WBC 5.49 K/ul 12/18/2015 Cbc With Differential Ord2 RBC 4.12 M/ul 12/18/2015 Cbc With Differential Ord2 HGB 13.2 g/dl 12/18/2015 Cbc With Differential Ord2 Neut% 61.5 % 12/18/2015 Cbc With Differential Ord2 HCT 40.2 % 12/18/2015 Cbc With Differential Ord2 MCV 97.6 fl 12/18/2015 Cbc With Differential Ord2 Lymph% 26.4 % 12/18/2015 Cbc With Differential Ord2 MCH 32.0 pg 12/18/2015 Cbc With Differential Ord2 Lipscomb% 9.3 % 12/18/2015 Cbc With Differential Ord2 [...] 1.45 K/ul 12/18/2015 Cbc With Differential Ord2 [place] ABS# 0.5 K/ul 12/18/2015 Cbc With Differential [...] 31.6 pg 09/02/2015 Cbc With Differential Ord2 [place]comb% 8.8 % 09/02/2015 Cbc With Differential Ord2 [...] 1.53 K/ul 09/02/2015 Cbc With Differential Ord2 [place] ABS# 0.5 K/ul 09/02/2015 Cbc With Differential Ord2 Eos ABS# 0.1 K/ul 09/02/2015 Cbc With Differential Ord2 Baso ABS# 0.0 K/ul 09/02/2015 Cbc With Differential Ord2 New Analyzer Notice Please note new ref ranges starting 08-14-2015 due to implemntation of new five part differential hematolgy analyzer. 09/02/2015 Tsh Ord6 hTSH II 1.41 uIU/mL 09/02/2015 Comp Metabolic Mlh212 NA 136 mEq/L 09/02/2015 Comp Metabolic Aje938 K 4.5 mEq/L 09/02/2015 Comp Metabolic Xzg578 CL 103 mEq/L 09/02/2015 Comp Metabolic Cua851 CO2 27.0 mEq/L 09/02/[address] ANION GAP 11 09/02/2015 Comp Metabolic Lpe031 GLUCOSE 109 mg/dL 09/02/2015 Comp Metabolic Dwh278 Creat 1.0 mg/dL 09/02/2015 Comp Metabolic Mvj051 eGFR 62 ml/min/1.73m2 09/02/2015 Comp Metabolic Uqm576 BUN 21 mg/dL 09/02/2015 Comp Metabolic Etw005 B/C Ratio 22.1 Ratio 09/02/2015 Comp Metabolic Aok059 CALCIUM 9.3 mg/dL 09/02/2015 Comp Metabolic Psp921 ALK PHOS 37 U/L 09/02/2015 Comp Metabolic Kll173 AST(SGOT) 19 U/L 09/02/2015 Comp Metabolic Mks072 ALT(SGPT) 16 U/L 09/02/2015 Comp Metabolic Iig134 BILI T 0.4 mg/dL 09/02/2015 Comp Metabolic Ezd998 ALBUMIN 4.1 g/dL 09/02/2015 Comp Metabolic Kwk882 TPRO 6.3 g/dL 09/02/2015 Comp Metabolic Jjm056 GLOB 2.2 g/dL 09/02/2015 Comp Metabolic Urq237 A/G Ratio 1.8 Ratio 09/02/2015 Comp Metabolic Rgu927 Osmo 276 mOsmo 09/02/2015 A1C HPLC 1393615 A1C HPLC 95278-3 5.6 % 07/23/2014 VIT D TOTL 5739185 VIT D TOTL 52 NG/ML 07/20/2013 GFR CALC 6024779 GFR AA >60 ML/MIN 07/20/2013 GFR CALC 4464432 GFR NON-AA >60 ML/MIN 07/20/2013 CBC 5286426 WBC 5.9 10e9/L 07/20/2013 CBC 7792304 RBC 4.79 10e12/L 07/20/2013 CBC 0579018 HGB 15.5 g/dL 07/20/2013 CBC 1664880 HCT DET 46.1 % 07/20/2013 CBC 3889569 MCV 96.2 fL 07/20/2013 CBC 9658307 MCH 32.4 pg 07/20/2013 CBC 4793129 MCHC 33.6 g/dL 07/20/2013 CBC 7380597 PLT 286 10e9/L 07/20/2013 CBC 5592963 MPV 10.8 fL 07/20/2013 CBC 8042273 ERINN % 66.1 % 07/20/2013 CBC 5851541 LY % 24.3 % 07/20/2013 CBC 3790761 MON % 8.1 % 07/20/2013 CBC 1311825 EOS % 1.2 % 07/20/2013 CBC 7116210 BASO % 0.3 % 07/20/2013 CBC 0396830 RDW 12.7 % 07/20/2013 CBC 8554109 ABS ERINN 3.90 10e9/L 07/20/2013 CBC 3045843 ABS LYMPH 1.43 10e9/L 07/20/2013 CBC 0278509 ABS MONO 0.48 10e9/L 07/20/2013 CBC 0315882 ABS EOS 0.07 10e9/L 07/20/2013 CBC 5018474 ABS BASO 0.02 10e9/L 07/20/2013 CBC 9091170 RDW-SD 44.1 fL 07/20/2013 A1C HPLC 3841371 A1C HPLC 51717-2 5.9 % 07/20/2013 LIPID GRP HDL TEST 54 MG/DL 07/20/2013 LIPID GRP TRIG 98 MG/DL 07/20/2013 LIPID GRP TEST LDL 95 MG/DL 07/20/2013 LIPID GRP CHOL 169 MG/DL 07/20/2013 LIPID GRP RCHOL/HDL 3.13 RATIO 07/20/2013 TSH 8855288 TSH 1.032 uIU/ML 07/20/2013 CHEM 14 7527606 AST 18 U/L 07/20/2013 CHEM 14 1160528 ALT 13 IU/L 07/20/2013 CHEM 14 8727961 BUN 19 MG/DL 07/20/2013 CHEM 14 4868072 ALBUMIN 4.5 GM/DL 07/20/2013 CHEM 14 7215120 CHLORIDE 105 MMOL/L 07/20/2013 CHEM 14 2541197 BILI TOT 0.5 MG/DL 07/20/2013 CHEM 14 9539365 ALK PHOS 40 U/L 07/20/2013 CHEM 14 0795736 SODIUM 137 MMOL/L 07/20/2013 CHEM 14 8352901 CREATININE 0.76 MG/DL 07/20/2013 CHEM 14 9648786 CALCIUM 10.0 MG/DL 07/20/2013 CHEM 14 0460102 POTASSIUM 4.6 MMOL/L 07/20/2013 CHEM 14 0630366 PROT TOT 6.5 GM/DL 07/20/2013 CHEM 14 3651652 GLUCOSE 118 MG/DL 07/20/2013 CHEM 14 1620372 BICARB 26 MMOL/L 07/20/2013 CHEM 14 5823339 ANION GAP 6 MEQ/L 07/20/2013 VIT B 12 8809899 VIT B 12 492 PG/ML 07/20/2013 Review [...] 06/22/2013 None Procedures Procedure Codes Date TOBACCO-USE BLOCK CUTTER 3-[address]: 905144717 CPT-4: O9052Ijssqgu 09/08/2016 ADMIN INFLUENZA VIRUS VAC CPT-4: K4508Sradyfq 05/11/2016 PNEUMOCOCCAL VACC 13 SAULO IM Formatting Model/CDA Sections, Assigned to/Rafia Cuadra SNOMED CT: 37185472 CPT-4: 30903Htmjwlw 05/11/2016 ADMIN PNEUMOCOCCAL VACCINE SNOMED CT: 61121994 CPT-4: O9534Gutfeqq 05/11/2016 FLU VACC 4 SAULO 3 YRS PLUS IM Formatting Model/CDA Sections, Assigned to/Rafia Cuadra SNOMED CT: 45438953 CPT-4: 20994Nkizxfm 05/11/2016 TOBACCO-USE BLOCK CUTTER 3-[address]: 021075992 CPT-4: K6186Uubgkjq 02/10/2016 TRIAMCINOLONE ACET INJ NOS CPT-4: N3344Uccgbly 12/16/2015 DRAIN/INJECT JOINT/BURSA CPT-4: 68452Ctjsihr 12/16/2015 TOBACCO-USE BLOCK CUTTER 3-[address]: 940654516 CPT-4: Z2907Sfkpzkd 12/09/2015 TOBACCO-USE BLOCK CUTTER 3-[address]: 708159255 CPT-4: H0535Itflujq 10/28/2015 THER/PROPH/DIAG INJ SC/IM CPT-4: 69812Bdzinbw 11/12/2014 TRIAMCINOLONE ACET INJ NOS CPT-4: H4746Ffprehj 11/12/2014 ROCEPHIN, PER 250 MG CPT-4: F5624Fesfwjh 11/12/2014 ROUTINE VENIPUNCTURE CPT-4: 44214Pezhbrz 07/23/2014 URINALYSIS NONAUTO W/O SCOPE CPT-4: 20443Tetsxym 03/21/2014 ROUTINE VENIPUNCTURE CPT-4: 05646Ckgwnbl 07/20/2013 PRESCRIP TRANSMIT VIA ERX SY CPT-4: K7662Wcosfta 07/20/2013 PRESCRIP TRANSMIT VIA ERX SY CPT-4: W4586Xmkquht 06/22/2013 Vital Signs Date Vital 01/07/2017 Blood Pressure 1: 140/70 Code: 8480-6 BMI: 28.8 Code: 30937-9 Heart Rate 1: 68 bpm Height: 5'5" SpO2: 96% Weight: 173 lbs 09/08/2016 Blood Pressure 1: 134/70 Code: 8480-6 BMI: 29.1 Code: 79578-2 Heart Rate 1: 68 bpm Height: 5'5" SpO2: 99% Weight: 175 lbs 05/11/2016 Blood Pressure 1: 138/88 Code: 8480-6 BMI: 29.2 Code: 80690-1 Heart Rate 1: 67 bpm Height: 5'6" SpO2: 95% Weight: 178 lbs 02/10/2016 Blood Pressure 1: 148/82 Code: 8480-6 BMI: 28.8 Code: 52299-4 Heart Rate 1: 63 bpm Height: 5'6" SpO2: 97% Weight: 176 lbs 12/18/2015 Blood Pressure 1: 130/78 Code: 8480-6 BMI: 28.8 Code: 92283-1 Heart Rate 1: 66 bpm Height: 5'6" SpO2: 98% Weight: 176 lbs 12/16/2015 Blood Pressure 1: 162/100 Code: 8480-6 BMI: 28.8 Code: 23230-1 Heart Rate 1: 65 bpm Height: 5'6" SpO2: 98% Weight: 176 lbs 12/09/2015 Blood Pressure 1: 142/70 Code: 8480-6 BMI: 28.4 Code: 59236-2 Heart Rate 1: 65 bpm Height: 5'6" SpO2: 96% Weight: 173 lbs 10/28/2015 Blood Pressure 1: 160/82 Code: 8480-6 Blood Pressure 1: 140/86 Code: 8480-6 BMI: 28.5 Code: 36519-2 Heart Rate 1: 60 bpm Height: 5'6" SpO2: 96% Weight: 174 lbs 08/26/2015 Blood Pressure 1: 158/80 Code: 8480-6 Blood Pressure 1: 148/88 Code: 8480-6 BMI: 28.0 Code: 19591-8 Heart Rate 1: 68 bpm Height: 5'6" SpO2: 98% Weight: 171 lbs 02/12/2015 Blood Pressure 1: 136/74 Code: 8480-6 BMI: 25.9 Code: 05538-0 Heart Rate 1: 61 bpm Height: 5'6" SpO2: 97% Weight: 158 lbs 11/12/2014 Blood Pressure 1: 140/82 Code: 8480-6 BMI: 25.9 Code: 35304-5 Heart Rate 1: 64 bpm Height: 5'6" SpO2: 97% Weight: 158 lbs 07/23/2014 Blood Pressure 1: 138/88 Code: 8480-6 BMI: 25.6 Code: 88989-5 Heart Rate 1: 57 bpm Height: 5'6" SpO2: 95% Weight: 156 lbs 03/21/2014 Blood Pressure 1: 124/64 Code: 8480-6 Heart Rate 1: 64 bpm Weight: 147 lbs 01/25/2014 Blood Pressure 1: 130/70 Code: 8480-6 BMI: 24.4 Code: 56232-0 Height: 5'6" Weight: 149 lbs 10/23/2013 Blood Pressure 1: 152/82 Code: 8480-6 BMI: 25.7 Code: 58503-3 Heart Rate 1: 60 bpm Height: 5'6" Weight: 157 lbs 08/21/2013 Blood Pressure 1: 142/90 Code: 8480-6 BMI: 25.9 Code: 57673-4 Heart Rate 1: 56 bpm Height: 5'6" Weight: 158 lbs 07/20/2013 Blood Pressure 1: 164/80 Code: 8480-6 BMI: 26.2 Code: 95425-0 Heart Rate 1: 60 bpm Height: 5'6" SpO2: 98% Weight: 160 lbs 06/22/2013 Blood Pressure 1: 140/84 Code: 8480-6 BMI: 28.2 Code: 82876-1 Heart Rate 1: 60 bpm Height: 5'6" [...] data Encounters Encounter Performer Location Codes Date ([id number]) [id number] EST. PATIENT, LEVEL III Diagnosis: Essential (primary) hypertension[ICD10: I10] Diagnosis: Malignant neoplasm of upper lobe, left bronchus or lung[ICD10: C34.12] Diagnosis: Chronic obstructive pulmonary disease, unspecified[ICD10: J44.9] Marily Gonzalez MD, [facility] CPT-4: 48590 01/07/2017 [id number]) 66967 EST. PATIENT, LEVEL IV Diagnosis: Essential (primary) hypertension[ICD10: I10] Diagnosis: Mixed hyperlipidemia[ICD10: E78.2] Diagnosis: Tobacco use[ICD10: Z72.0] Diagnosis: Malignant neoplasm of upper lobe, left bronchus or lung[ICD10: C34.12] Marily Gonzalez MD, [facility] CPT-4: 01514 09/08/2016 [id number]) [id number] EST. PATIENT, LEVEL IV Diagnosis: Essential (primary) hypertension[ICD10: I10] Diagnosis: Mixed hyperlipidemia[ICD10: E78.2] Diagnosis: Generalized anxiety disorder[ICD10: F41.1] Diagnosis: Other specified disorders of bone density and structure, multiple sites[ICD10: M85.89] Marily Gonzalez MD, [facility] CPT-4: 32606 05/11/2016 [id number]) [id number] EST. PATIENT, LEVEL IV Diagnosis: Essential (primary) hypertension[ICD10: I10] Diagnosis: Generalized anxiety disorder[ICD10: F41.1] Diagnosis: Tobacco use[ICD10: Z72.0] Marily Gonzalez MD, [facility] CPT-4: 89895 02/10/2016 91360 EST. PATIENT, LEVEL IV Diagnosis: Myalgia[ICD10: M79.1] Diagnosis: Low back pain[ICD10: M54.5] Joy Gonzalez MD, [facility] CPT-4: 80238 12/18/2015 [id number] EST. PATIENT, LEVEL IV Diagnosis: Low back pain[ICD10: M54.5] Diagnosis: Pain in right hip[ICD10: M25.551] Joy Gonzalez MD, [facility] CPT-4: 09567 12/16/2015 ([id number]) 82334 EST. PATIENT, LEVEL IV Diagnosis: Low back pain[ICD10: M54.5] Diagnosis: Malignant neoplasm of upper lobe, left bronchus or lung[ICD10: C34.12] Diagnosis: Tobacco use[ICD10: Z72.0] Diagnosis: Essential (primary) hypertension[ICD10: I10] Diagnosis: Generalized anxiety disorder[ICD10: F41.1] Marily Gonzalez MD, [facility] CPT-4: 47491 12/09/2015 ([id number]) 76213 EST. PATIENT, LEVEL IV Diagnosis: Essential (primary) hypertension[ICD10: I10] Diagnosis: Tobacco use[ICD10: Z72.0] Diagnosis: Solitary pulmonary nodule[ICD10: R91.1] Marily Gonzalez MD, [facility] CPT-4: 60526 10/28/2015 ([id number]) 81809 EST. PATIENT, LEVEL IV Diagnosis: Essential (primary) hypertension[ICD10: I10] Diagnosis: Bilateral primary osteoarthritis of hip[ICD10: M16.0] Diagnosis: Solitary pulmonary nodule[ICD10: R91.1] Marily Gonzalez MD, [facility] CPT-4: 38627 08/26/2015 ([id number]) 49952 EST. PATIENT, LEVEL IV Diagnosis: ESSENTIAL HYPERTENSION[ICD9: 401.9] Diagnosis: Pulmonary nodule[ICD9: 793.11] Teresa Gonzalez MD, [facility] CPT-4: 86728 02/12/2015 ([id number]) 64441 EST. PATIENT, LEVEL III Diagnosis: ACUTE BRONCHITIS[ICD9: 466.0] Diagnosis: ALLERGIC RHINITIS[ICD9: 477.9] Teresa Gonzalez MD [facility] CPT-4: 93056 11/12/2014 ([id number]) 30745 EST. PATIENT, LEVEL IV Diagnosis: ESOPHAGEAL REFLUX[ICD9: 530.81] Diagnosis: ESSENTIAL HYPERTENSION[ICD9: 401.9] Diagnosis: Elevated blood sugar[ICD9: 790.29] Marily Gonzalez MD [facility] CPT- 4: 67383 07/23/2014 ([id number]) 58167 EST. PATIENT, LEVEL III Diagnosis: Vaginal yeast infection[ICD9: 112.1] Diagnosis: Vaginal burning[ICD9: 625.8] Diagnosis: History of UTI[ICD9: V13.02] Diagnosis: Dysuria[ICD9: 788.1] Marily Gonzalez MD, [facility] CPT-4: 79601 03/21/2014 ([id number]) 16852 EST. PATIENT, LEVEL III Diagnosis: ESSENTIAL HYPERTENSION[ICD9: 401.9] Marily Gonzalez MD [facility] CPT-4: 65191 01/25/2014 ([id number]) 72175 EST. PATIENT, LEVEL III Diagnosis: ESSENTIAL HYPERTENSION[SNOMED: 32959490] Diagnosis: ESOPHAGEAL REFLUX[ICD9: 530.81] Teresa Gonzalez MD [facility] CPT-4: 77001 10/23/2013 ([id number]) 81043 EST. PATIENT, LEVEL IV Diagnosis: ESOPHAGEAL REFLUX[ICD9: 530.81] Diagnosis: ESSENTIAL HYPERTENSION[SNOMED: 06524124] Diagnosis: Rash[ICD9: 782.1] Marily Gonzalez MD, [facility] CPT-4: 62845 08/21/2013 ([id number]) 55545 EST. PATIENT, LEVEL IV Diagnosis: Muscle ache of extremity[ICD9: 729.1] Diagnosis: Tingling in extremities[ICD9: 782.0] Diagnosis: ESSENTIAL HYPERTENSION[SNOMED: 99194498] Diagnosis: GERD (gastroesophageal reflux disease)[ICD9: 530.81] Diagnosis: Elevated blood sugar[ICD9: 790.29] [facility] CPT- 4: 69790 07/20/2013 OFFICE VISIT, NEW - LEVEL 3 Diagnosis: ESSENTIAL HYPERTENSION[SNOMED: 84211581] Diagnosis: Tobacco use[ICD9: 305.1] Diagnosis: Depression[ICD9: 311] [facility] CPT-4: 54070 06/22/2013 ([id number]) BEHAV CHNG SMOKING 3-10 MIN Diagnosis: [ICD9: ] [facility] CPT-4: 07856 06/22/2013 Plan of Care Planned Activity Notes [...] Hypertension Completed 01/07/2017 Appointment: Marily Valerio WPtel: [address] [place], [place] [phone] (30 min) [facility] 01/05/2017 Visit Plan: Hypertension - well controlled [...] Ryan in 09/08/2016 Appointment: Marily Valerio WPtel: [address] [place] [address] (15 min) Moderate 09/08/2016 Patient Education: Patient [...] bone density 05/11/2016 Appointment: Marily Valerio WPtel: [address] [place], [place] [phone] (15 min) Moderate 05/11/2016 Patient Education: Patient [...] Care Plan: MRI LUMBAR SPINE W/O DYE [facility] : 50608-5 Cancelled 01/17/2016 Visit Plan: Continued Low back [...] they worsen. 12/18/2015 Appointment: Marily Valerio WPtel[phone] (30 min) Complex 12/18/2015 Patient Education: Patient [...] they worsen. 12/16/2015 Appointment: Joy Flores WPtel: [id number] (15 min) Moderate 12/16/2015 Patient Education: Patient [...] in blood pressure readings at home.Arthritis of ocan-rfxi-jisqp mobic- monitor symptoms-check labs Left lung nodule-most recent scan shows slight incre ase in size and needs further evaluation-managed by Dr Corea-[facility] is this 08/26/2015 Appointment: Marily Valerio WPtel: [phone] [place] (30 min) Complex 08/26/2015 Patient Education: Patient Medication Summary Completed 08/26/2015 Patient Education: Hypertension Completed 08/26/2015 Appointment: Teresa Gonzalez WPtel: [facility] (15 min) Moderate 08/15/2015 Appointment: Teresa Gonzalez WPtel: [facility] (15 min) Moderate 08/15/2015 [...] CT scan. 02/12/2015 Appointment: Teresa Gonzalez WPtel: [facility] Follow up 02/12/2015 Patient Education: Patient [...] bloating-use dicyclomine prn Elevated blood sugar-check Hgb [id number] back on sweets/carbs 07/23/2014 Appointment: Follow up [...] blood pressure readings at home. 01/25/2014 Appointment: Mariyl Valerio WPtel: [phone] Follow up 01/25/2014 Patient Education: Patient Medication [...] by Dr. Mckeon. 10/23/2013 Appointment: LisaTeresa WPtel: [phone] Follow up 10/23/2013 Patient Education: Patient Medication [...] any worse. 08/21/2013 Appointment: Marily Valerio WPtel: [phone] Follow up 08/21/2013 Patient Education: Patient [...] are not improving.HTN-elevated today-follow up with Dr oCmbs as scheduledTingling of fxoppycbshx-vaygvise-mffmo labs including vitamin b12 and vitamin dElevated blood sugar-check hgb a1c 07/20/2013 Appointment: Marily Valerio WPtel: [phone] Follow up 07/20/2013 Patient Education: Patient [...] quit date. 06/22/2013 Appointment: Marily Valerio WPtel: [address] [place], [place] [phone] New Patient 06/22/2013 Patient Education: Patient Medication [...] not resolve or if any worse. 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 Hypertension [...] with Dr Combs as scheduled Tingling of qbhgqsaqtjj-lnuaqsgi-mkvwk labs including vitamin b12 and vitamin d [...] to have left upper lobe [facility] this week to schedule Tobacco [...] blood pressure readings at home. Arthritis of bjub-lyhv-yqbcq mobic-monitor symptoms-check labs Left lung nodule-most recent [...] bloating-use dicyclomine prn Elevated blood sugar-check Hgb [id number]-[id number] back on sweets/carbs
--- OUTSIDE RECORDS SUMMARY | 2019-03-31 09:19 | XMS REPORT | CCD ---
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 Unknown Has never used illegal drugs 06/22/2013 Allergies, Adverse Reactions, Alerts Substance Reaction Codes Entered Date Inactivated Date Status lisinopril cough, RxNorm: 17558 06/22/2013 No Inactive Date Active SULFA (SULFONAMIDE [...] Date Stop Date Status Fill Instructions dicyclomine 20 mg tablet RxNorm: 618272 1 Tablet(s) PO TID PRN TAKE ONE CAPSULE BY MOUTH THREE TIMES A DAY NEEDED 10/28/2018 10/11/2021 Active [place] approved gabapentin 300 mg capsule RxNorm: 902921 1 Capsule(s) PO BID 09/30/2018 01/27/2019 Active after 14 days of HS increase to BID gabapentin 300 mg capsule RxNorm: 936040 1 Capsule(s) PO QHS 09/30/2018 09/29/2018 Inactive then increase to BID Lyrica 50 mg capsule RxNorm: 752931 1 Capsule(s) PO BID 09/27/2018 12/25/2018 Active Lyrica 50 mg capsule RxNorm: 552654 1 Capsule(s) PO BID 09/27/2018 09/26/2018 Inactive nystatin 100,000 unit/gram topical cream RxNorm: 662127 1 Application TOP BID 09/19/2018 10/02/2018 Inactive mix with betamethasone Diovan 320 mg tablet RxNorm: 180526 1 Tablet(s) PO daily 09/19/2018 03/17/2019 Active metoprolol tartrate 100 mg tablet RxNorm: 781375 1 Tablet(s) PO BID TAKE ONE TABLET BY MOUTH TWICE A DAY 09/19/2018 06/15/2019 Active dicyclomine 20 mg tablet RxNorm: 752259 1 Tablet(s) PO TID PRN TAKE ONE CAPSULE BY MOUTH THREE TIMES A DAY NEEDED 09/19/2018 10/27/2018 Inactive betamethasone dipropionate 0.05 % topical cream RxNorm: 959592 1 Application TOP BID 09/19/2018 10/02/2018 Inactive dicyclomine 10 mg capsule RxNorm: 723488 1 Capsule(s) PO TID PRN TAKE ONE CAPSULE BY MOUTH THREE TIMES A DAY NEEDED 09/19/2018 09/18/2018 Inactive nystatin 100,000 unit/gram topical cream RxNorm: 813465 1 Application TOP BID 06/16/2018 06/29/2018 Inactive gabapentin 100 mg capsule RxNorm: 148768 1 Capsule(s) PO UD 06/16/2018 07/15/2018 Inactive 1 po q HS x 1 week then 2 po q HS x 1 week then increase to 3 q HS amlodipine 10 mg tablet RxNorm: 842266 TAKE ONE TABLET BY MOUTH EVERY DAY 05/26/2018 11/21/2018 Active Lipitor 10 mg tablet RxNorm: 198297 Tablet(s) TAKE ONE TABLET BY MOUTH EVERY OTHER DAY 05/25/2018 02/18/2019 Active Lexapro 20 mg tablet RxNorm: 166052 1 Tablet(s) PO QPM 03/25/2018 09/20/2018 Inactive nystatin 100,000 unit/gram topical cream RxNorm: 274670 1 Application TOP BID 03/25/2018 04/07/2018 Inactive olmesartan 40 mg tablet RxNorm: 881870 1 Tablet(s) PO daily 03/25/2018 09/18/2018 Inactive Lipitor 10 mg tablet RxNorm: 680384 TAKE ONE TABLET BY MOUTH EVERY OTHER DAY 03/18/2018 12/11/2018 Active Diovan 320 mg tablet RxNorm: 455185 TAKE ONE TABLET BY MOUTH DAILY 03/18/2018 03/24/2018 Inactive metoprolol tartrate 100 mg tablet RxNorm: 654759 TAKE ONE TABLET BY MOUTH TWICE A DAY 01/05/2018 09/18/2018 Inactive Diovan 320 mg tablet RxNorm: 757949 TAKE ONE TABLET BY MOUTH EVERY DAY 12/16/2017 03/17/2018 Inactive Lexapro 10 mg tablet RxNorm: 025719 1 Tablet(s) PO QPM 11/25/2017 03/24/2018 Inactive amlodipine 10 mg tablet RxNorm: 017821 TAKE ONE TABLET BY MOUTH EVERY DAY 11/15/2017 05/13/2018 Inactive Lipitor 10 mg tablet RxNorm: 923785 TAKE ONE TABLET BY MOUTH EVERY OTHER DAY 10/18/2017 03/17/2018 Inactive dicyclomine 10 mg capsule RxNorm: 704210 TAKE ONE CAPSULE BY MOUTH THREE TIMES A DAY NEEDED 08/12/2017 09/18/2018 Inactive Lipitor 10 mg tablet RxNorm: 440348 TAKE ONE TABLET BY MOUTH EVERY OTHER DAY 07/12/2017 10/17/2017 Inactive Diovan 320 mg tablet RxNorm: 909566 TAKE ONE TABLET BY MOUTH EVERY DAY 06/09/2017 12/05/2017 Inactive dicyclomine 10 mg capsule RxNorm: 212953 TAKE ONE CAPSULE BY MOUTH THREE TIMES A DAY NEEDED 05/05/2017 08/02/2017 Inactive nystatin 100,000 unit/gram topical powder RxNorm: 138565 1 Application TOP BID 04/29/2017 05/08/2017 Inactive Diovan 320 mg tablet RxNorm: 327565 TAKE ONE TABLET BY MOUTH EVERY DAY 03/10/2017 06/07/2017 Inactive dicyclomine 10 mg capsule RxNorm: 028894 TAKE ONE CAPSULE BY MOUTH THREE TIMES A DAY NEEDED 02/04/2017 05/04/2017 Inactive amlodipine 10 mg tablet RxNorm: 665360 TAKE ONE TABLET BY MOUTH EVERY DAY 02/04/2017 10/31/2017 Inactive Lipitor 10 mg tablet RxNorm: 839044 TAKE ONE TABLET BY MOUTH EVERY OTHER DAY 02/04/2017 07/11/2017 Inactive Fish Oil 1,000 mg capsule RxNorm: 1 Capsule(s) PO TID 01/07/2017 No Stop Date Active metoprolol tartrate 100 mg tablet RxNorm: 051079 1 Tablet(s) PO BID TAKE ONE TABLET BY MOUTH TWICE A DAY 01/07/2017 01/01/2018 Inactive Diovan 320 mg tablet RxNorm: 591886 TAKE ONE TABLET BY MOUTH EVERY DAY 11/05/2016 03/04/2017 Inactive Lipitor 10 mg tablet RxNorm: 859744 1 Tablet(s) PO every other day 09/08/2016 01/05/2017 Inactive dc livalo dicyclomine 10 mg capsule RxNorm: 278236 TAKE ONE CAPSULE BY MOUTH THREE TIMES A DAY NEEDED 07/30/2016 01/25/2017 Inactive Diovan 320 mg tablet RxNorm: 413939 TAKE ONE TABLET BY MOUTH EVERY DAY 06/15/2016 11/04/2016 Inactive Lipitor 10 mg tablet RxNorm: 706669 1 Tablet(s) PO every other day 05/25/2016 05/24/2016 Inactive dc livalo Lipitor 10 mg tablet RxNorm: 518638 1 Tablet(s) PO every other day 05/25/2016 09/07/2016 Inactive dc livalo Livalo 2 mg tablet RxNorm: 227016 1 Tablet(s) PO daily 05/20/2016 05/19/2016 Inactive Livalo 2 mg tablet RxNorm: 686817 1 Tablet(s) PO daily 05/20/2016 05/24/2016 Inactive Celexa 10 mg tablet RxNorm: 876023 1 Tablet(s) PO daily 02/10/2016 11/24/2017 Inactive amlodipine 10 mg tablet RxNorm: 361371 TAKE ONE TABLET BY MOUTH EVERY DAY 02/03/2016 02/02/2016 Inactive amlodipine 10 mg tablet RxNorm: 267132 TAKE ONE TABLET BY MOUTH EVERY DAY 02/03/2016 01/27/2017 Inactive amlodipine 10 mg tablet RxNorm: 088287 TAKE ONE TABLET BY MOUTH EVERY DAY 02/03/2016 04/27/2017 Inactive metoprolol tartrate 100 mg tablet RxNorm: 190161 TAKE ONE TABLET BY MOUTH TWICE A DAY 2016 01/06/2017 Inactive Diovan 320 mg tablet RxNorm: 330866 TAKE ONE TABLET BY MOUTH EVERY DAY 12/19/2015 06/14/2016 Inactive Wellbutrin XL 150 mg 24 hr tablet, extended release RxNorm: 994131 1 Tablet(s) PO daily 12/09/2015 02/09/2016 Inactive tramadol 50 mg tablet RxNorm: 858160 1-2 Tablet(s) PO Q6 PRN 12/09/2015 11/24/2017 Inactive Mobic 7.5 mg tablet RxNorm: 915175 TAKE ONE TABLET BY MOUTH DAILY 11/11/2015 11/24/2017 Inactive dicyclomine 10 mg capsule RxNorm: 584802 TAKE ONE CAPSULE BY MOUTH THREE TIMES A DAY NEEDED 11/11/2015 07/29/2016 Inactive Wellbutrin 75 mg tablet RxNorm: 902283 1 Tablet(s) PO BID 10/28/2015 12/08/2015 Inactive simvastatin 20 mg tablet RxNorm: 164951 TAKE ONE TABLET BY MOUTH EVERY DAY 09/05/2015 2016 Inactive Mobic 7.5 mg tablet RxNorm: 385694 1 Tablet(s) PO daily 08/26/2015 11/10/2015 Inactive estradiol 0.5 mg tablet RxNorm: 319270 TAKE ONE TABLET BY MOUTH EVERY DAY 06/11/2015 03/06/2016 Inactive amlodipine 10 mg tablet RxNorm: 883103 TAKE ONE TABLET BY MOUTH EVERY DAY 04/19/2015 01/13/2016 Inactive dicyclomine 10 mg capsule RxNorm: 770262 TAKE ONE CAPSULE BY MOUTH THREE TIMES A DAY NEEDED 04/19/2015 10/15/2015 Inactive simvastatin 20 mg tablet RxNorm: 923947 TAKE ONE TABLET BY MOUTH EVERY DAY 02/21/2015 08/19/2015 Inactive Diovan 320 mg tablet RxNorm: 375545 TAKE ONE TABLET BY MOUTH EVERY DAY 12/19/2014 12/18/2015 Inactive cephalexin 500 mg capsule RxNorm: 104785 1 Capsule(s) PO TID 11/13/2014 11/19/2014 Inactive prednisone 10 mg tablet RxNorm: 971593 3 Tablet(s) PO daily 11/13/2014 11/17/2014 Inactive prednisone 10 mg tablet RxNorm: 070213 3 Tablet(s) PO daily 11/12/2014 11/12/2014 Inactive Kenalog 40 mg/mL suspension for injection RxNorm: 5375291 Milliliter(s) Inj 11/12/2014 11/12/2014 Inactive cephalexin 500 mg capsule RxNorm: 643254 1 Capsule(s) PO TID 11/12/2014 11/12/2014 Inactive ceftriaxone 500 mg solution for injection RxNorm: 5864034 Inj 11/12/2014 11/12/2014 Inactive dicyclomine 10 mg capsule RxNorm: 268276 TAKE ONE CAPSULE BY MOUTH THREE TIMES A DAY NEEDED 11/08/2014 04/18/2015 Inactive metoprolol tartrate 100 mg tablet RxNorm: 515054 TAKE ONE TABLET BY MOUTH TWICE A DAY 10/18/2014 2015 Inactive metoprolol tartrate 100 mg tablet RxNorm: 228456 1 Tablet(s) PO BID 10/18/2014 10/12/2015 Inactive simvastatin 20 mg tablet RxNorm: 798556 TAKE ONE TABLET BY MOUTH EVERY DAY 08/21/2014 02/16/2015 Inactive Diovan 320 mg tablet RxNorm: 480687 TAKE ONE TABLET BY MOUTH EVERY DAY 08/21/2014 12/18/2014 Inactive Carafate 1 gram tablet RxNorm: 603074 1 Tablet(s) PO AC & HS MIX WITH 30ML WATER 07/23/2014 11/24/2017 Inactive dissolve in water and drink as slurry dicyclomine 10 mg capsule RxNorm: 237982 1 Capsule(s) PO TID PRN 07/23/2014 10/20/2014 Inactive simvastatin 20 mg tablet RxNorm: 000395 TAKE ONE TABLET BY MOUTH EVERY DAY 06/07/2014 08/20/2014 Inactive estradiol 0.5 mg tablet RxNorm: 795922 TAKE ONE TABLET BY MOUTH EVERY DAY 05/16/2014 05/10/2015 Inactive amlodipine 10 mg tablet RxNorm: 290795 TAKE ONE TABLET BY MOUTH EVERY DAY 05/16/2014 04/18/2015 Inactive Diovan 320 mg tablet RxNorm: 402121 TAKE ONE TABLET BY MOUTH EVERY DAY 03/26/2014 08/20/2014 Inactive Diflucan 150 mg tablet RxNorm: 505934 1 Tablet(s) PO daily 03/21/2014 03/27/2014 Inactive simvastatin 20 mg tablet RxNorm: 401254 TAKE ONE TABLET BY MOUTH EVERY DAY 03/02/2014 05/30/2014 Inactive estradiol 0.5 mg tablet RxNorm: 346127 TAKE ONE TABLET BY MOUTH EVERY DAY 02/16/2014 05/15/2014 Inactive amlodipine 10 mg tablet RxNorm: 812696 TAKE ONE TABLET BY MOUTH EVERY DAY 02/16/2014 05/15/2014 Inactive pantoprazole 40 mg tablet,delayed release RxNorm: 753731 2 Tablet(s) PO daily 01/25/2014 02/23/2014 Inactive simvastatin 20 mg tablet RxNorm: 366233 Tablet(s) PO TAKE ONE TABLET BY MOUTH EVERY DAY 11/30/2013 03/01/2014 Inactive amlodipine 10 mg tablet RxNorm: 218927 Tablet(s) PO TAKE ONE TABLET BY MOUTH EVERY DAY 11/16/2013 02/15/2014 Inactive metoprolol tartrate 100 mg tablet RxNorm: 578979 1 Tablet(s) PO BID 10/23/2013 10/17/2014 Inactive Diovan 320 mg tablet RxNorm: 421856 Tablet(s) PO TAKE ONE TABLET BY MOUTH EVERY DAY 09/28/2013 03/25/2014 Inactive Carafate 1 gram tablet RxNorm: 507541 1 Tablet(s) PO TID MIX WITH 30ML WATER 09/20/2013 12/18/2013 Inactive estradiol 0.5 mg tablet RxNorm: 981529 1 Tablet(s) PO daily 08/21/2013 02/15/2014 Inactive amlodipine 10 mg tablet RxNorm: 043664 1 Tablet(s) PO daily 08/21/2013 11/15/2013 Inactive simvastatin 20 mg tablet RxNorm: 547104 1 Tablet(s) PO daily 08/21/2013 11/18/2013 Inactive Diovan 320 mg tablet RxNorm: 925012 1 Tablet(s) PO daily 08/21/2013 09/19/2013 Inactive Carafate 1 gram tablet RxNorm: 461241 1 Tablet(s) PO TID MIX WITH 30ML WATER 08/21/2013 09/19/2013 Inactive Diovan 320 mg tablet RxNorm: 648144 1 Tablet(s) PO daily 07/20/2013 08/18/2013 Inactive amlodipine 10 mg tablet RxNorm: 001530 1 Tablet(s) PO daily 07/20/2013 08/18/2013 Inactive estradiol 0.5 mg tablet RxNorm: 418631 1 Tablet(s) PO daily 07/20/2013 08/18/2013 Inactive metoprolol tartrate 100 mg tablet RxNorm: 553601 1 Tablet(s) PO BID 06/22/2013 10/22/2013 Inactive Wellbutrin XL 150 mg 24 hr tablet, extended release RxNorm: 496633 1 Tablet(s) PO daily 06/22/2013 07/19/2013 Inactive pantoprazole 40 mg tablet,delayed release RxNorm: 881992 1 Tablet(s) PO daily No Start Date Active calcium 500 mg tablet RxNorm: 2 Tablet(s) PO BID No Start Date Active glucosamine and szenuosxsqn-rdivmqhq-haco#3 oral RxNorm: 2837 oral No Start Date Active multivitamin tablet RxNorm: 1 Tablet(s) PO daily No Start Date Active aspirin 81 mg tablet RxNorm: 964089 1 Tablet(s) PO daily No Start Date Active Probiotic oral RxNorm: oral No Start Date Active Vitamin D3 1,000 unit capsule RxNorm: 642318 1 Capsule(s) PO daily No Start Date Active Eliquis 5 mg tablet RxNorm: 7693604 1 Tablet(s) PO BID No Start Date Active simvastatin 20 mg tablet RxNorm: 668675 1 Tablet(s) PO daily No Start Date 08/20/2013 Inactive hyoscyamine 0.125 mg sublingual tablet RxNorm: 6840979 1 Tablet(s) SL TID No Start Date 07/22/2014 Inactive metoprolol tartrate 100 mg tablet RxNorm: 421304 1 Tablet(s) PO daily No Start Date 06/21/2013 Inactive amlodipine 10 mg tablet RxNorm: 549116 1 Tablet(s) PO daily No Start Date 07/19/2013 Inactive Diovan 320 mg tablet RxNorm: 022355 1 Tablet(s) PO daily No Start Date 07/19/2013 Inactive Fish Oil 1,000 mg capsule RxNorm: 1 Capsule(s) PO BID No Start Date 01/06/2017 Inactive omeprazole 20 mg tablet,delayed release RxNorm: 838275 1 Tablet(s) PO daily No Start Date 01/25/2014 Inactive estradiol 0.5 mg tablet RxNorm: 724989 1 Tablet(s) PO daily No Start Date 07/19/2013 Inactive Medication Administered Medication Codes Instructions Start Date Status Kenalog 40 mg/mL suspension for injection RxNorm: 0201070 Milliliter 11/12/2014 No longer Active ceftriaxone 500 mg solution for injection RxNorm: 2621040 11/12/2014 No longer Active Immunizations Vaccine Codes [...] Lipid Ord30 C/HDL 3.5 Ratio 11/25/2017 %Hba1C Uhm563 % HbA1c 87807- 6 5.7 % 11/25/2017 %Hba1C Bry711 Gluc Ave 117 mg/dL 11/25/2017 Tsh Ord6 TSH (3rd IS) 1.06 uIU/mL 11/25/2017 Comp Metabolic Irx864 NA 141 mEq/L 11/25/2017 Comp Metabolic Ffu917 K 4.2 mEq/L 11/25/2017 Comp Metabolic Nzo876 CL 103 mEq/L 11/25/2017 Comp Metabolic Bcf949 CO2 31.0 mEq/L 11/25/2017 Comp Metabolic Vkj085 ANION GAP 11 11/25/2017 Comp Metabolic Nen040 GLUCOSE 117 mg/dL 11/25/2017 Comp Metabolic Jaj597 Creat 0.8 mg/dL 11/25/2017 Comp Metabolic Cpj512 eGFR 74 ml/min/1.73m2 11/25/2017 Comp Metabolic Ngs508 BUN 18 mg/dL 11/25/2017 Comp Metabolic Pdk922 B/C Ratio 22.2 Ratio 11/25/2017 Comp Metabolic Fns727 CALCIUM 9.4 mg/dL 11/25/2017 Comp Metabolic Hcm530 ALK PHOS 62 U/L 11/25/2017 Comp Metabolic Gqw827 AST(SGOT) 21 U/L 11/25/2017 Comp Metabolic Uad206 ALT(SGPT) 18 U/L 11/25/2017 Comp Metabolic Uav280 BILI T 0.4 mg/dL 11/25/2017 Comp Metabolic Ynm140 ALBUMIN 4.0 g/dL 11/25/2017 Comp Metabolic Jle250 TPRO 6.1 g/dL 11/25/2017 Comp Metabolic Dip635 GLOB 2.1 g/dL 11/25/2017 Comp Metabolic Cqw283 A/G Ratio 1.9 Ratio 11/25/2017 Comp Metabolic Aov437 Osmo 284 mOsmo 11/25/2017 Cbc With Differential [...] 31.1 pg 11/25/2017 Cbc With Differential Ord2 Dolores% 11.2 % 11/25/2017 Cbc With Differential Ord2 [...] 2.03 K/ul 11/25/2017 Cbc With Differential Ord2 Dolores ABS# 0.6 K/ul 11/25/2017 Cbc With Differential [...] 31.8 pg 05/11/2016 Cbc With Differential Ord2 Dolores% 9.5 % 05/11/2016 Cbc With Differential Ord2 [...] 1.76 K/ul 05/11/2016 Cbc With Differential Ord2 [place]ores ABS# 0.4 K/ul 05/11/2016 Cbc With Differential Ord2 Eos ABS# 0.1 K/ul 05/11/2016 Cbc With Differential Ord2 Baso ABS# 0.0 K/ul 05/11/2016 Comp Metabolic Egq824 NA 139 mEq/L 05/11/2016 Comp Metabolic Pjd266 K 4.6 mEq/L 05/11/2016 Comp Metabolic Wao867 CL 104 mEq/L 05/11/2016 Comp Metabolic Nuo152 CO2 30.0 mEq/L 05/11/2016 Comp Metabolic Grl789 ANION GAP 10 05/11/2016 Comp Metabolic Rqb842 GLUCOSE 113 mg/dL 05/11/2016 Comp Metabolic Rcc847 Creat 0.8 mg/dL 05/11/2016 Comp Metabolic Bce361 eGFR 74 ml/min/1.73m2 05/11/2016 Comp Metabolic Gkw889 BUN 16 mg/dL 05/11/2016 Comp Metabolic Rkt498 B/C Ratio 19.8 Ratio 05/11/2016 Comp Metabolic Tpc285 CALCIUM 10.1 mg/dL 05/11/2016 Comp Metabolic Drv873 ALK PHOS 44 U/L 05/11/2016 Comp Metabolic Gbq763 AST(SGOT) 20 U/L 05/11/2016 Comp Metabolic Yvf233 ALT(SGPT) 17 U/L 05/11/2016 Comp Metabolic Ydd685 BILI T 0.4 mg/dL 05/11/2016 Comp Metabolic Zuk716 ALBUMIN 4.1 g/dL 05/11/2016 Comp Metabolic Jzy040 TPRO 6.5 g/dL 05/11/2016 Comp Metabolic Czd111 GLOB 2.4 g/dL 05/11/2016 Comp Metabolic Www928 A/G Ratio 1.8 Ratio 05/11/2016 Comp Metabolic Juh949 Osmo 280 mOsmo 05/11/2016 Tsh Ord6 hTSH II 0.96 uIU/mL 05/11/2016 Lipid Ord30 CHOL 283 mg/dL 05/11/2016 Lipid Ord30 HDL 53.0 mg/dl 05/11/2016 Lipid Ord30 TRIG 144 mg/dL 05/11/2016 Lipid Ord30 LDL 201 mg/dL 05/11/2016 Lipid Ord30 C/HDL 5.3 Ratio 05/11/2016 C-Reactive Protein Qnt Crqnt CRP 0.5 mg/dl 12/18/2015 Vitamin D 25 Oh Kdn4573 VITAMIN D, 25 HYDROXY 84.50 ng/mL 12/18/2015 Comp Metabolic Vih839 NA 139 mEq/L 12/18/2015 Comp Metabolic Ddx359 K 3.8 mEq/L 12/18/2015 Comp Metabolic Ezv087 CL 103 mEq/L 12/18/2015 Comp Metabolic Wnz395 CO2 31.0 mEq/L 12/18/2015 Comp Metabolic Ybi548 ANION GAP 9 12/18/2015 Comp Metabolic Edc880 GLUCOSE 107 mg/dL 12/18/2015 Comp Metabolic Mca784 Creat 0.8 mg/dL 12/18/2015 Comp Metabolic Gzx937 eGFR 80 ml/min/1.73m2 12/18/2015 Comp Metabolic Fxd269 BUN 19 mg/dL 12/18/2015 Comp Metabolic Vvw553 B/C Ratio 25.0 Ratio 12/18/2015 Comp Metabolic Upv619 CALCIUM 9.1 mg/dL 12/18/2015 Comp Metabolic Kxi591 ALK PHOS 42 U/L 12/18/2015 Comp Metabolic Irr537 AST(SGOT) 17 U/L 12/18/2015 Comp Metabolic Sfs483 ALT(SGPT) 18 U/L 12/18/2015 Comp Metabolic Dar402 BILI T 0.3 mg/dL 12/18/2015 Comp Metabolic Sbu325 ALBUMIN 3.8 g/dL 12/18/2015 Comp Metabolic Okt186 TPRO 5.9 g/dL 12/18/2015 Comp Metabolic Hbn507 GLOB 2.1 g/dL 12/18/2015 Comp Metabolic Nmp138 A/G Ratio 1.8 Ratio 12/18/2015 Comp Metabolic Xsu289 Osmo 280 mOsmo 12/18/2015 Sed Rate Ord21 [...] 32.0 pg 12/18/2015 Cbc With Differential Ord2 Dolores% 9.3 % 12/18/2015 Cbc With Differential Ord2 [...] 1.45 K/ul 12/18/2015 Cbc With Differential Ord2 Dolores ABS# 0.5 K/ul 12/18/2015 Cbc With Differential [...] 31.6 pg 09/02/2015 Cbc With Differential Ord2 Dolores% 8.8 % 09/02/2015 Cbc With Differential Ord2 [...] 1.53 K/ul 09/02/2015 Cbc With Differential Ord2 Dolores ABS# 0.5 K/ul 09/02/2015 Cbc With Differential Ord2 Eos ABS# 0.1 K/ul 09/02/2015 Cbc With Differential Ord2 Baso ABS# 0.0 K/ul 09/02/2015 Cbc With Differential Ord2 New Analyzer Notice Please note new ref ranges starting 08-14-2015 due to implemntation of new five part differential hematolgy analyzer. 09/02/2015 Tsh Ord6 hTSH II 1.41 uIU/mL 09/02/2015 Comp Metabolic Hyb411 NA 136 mEq/L 09/02/2015 Comp Metabolic Bmz634 K 4.5 mEq/L 09/02/2015 Comp Metabolic Dvn810 CL 103 mEq/L 09/02/2015 Comp Metabolic Bnn808 CO2 27.0 mEq/L 09/02/2015 Comp Metabolic Lph009 ANION GAP 11 09/02/2015 Comp Metabolic Vhn868 GLUCOSE 109 mg/dL 09/02/2015 Comp Metabolic Lbn020 Creat 1.0 mg/dL 09/02/2015 Comp Metabolic Ewc069 eGFR 62 ml/min/1.73m2 09/02/2015 Comp Metabolic Dio079 BUN 21 mg/dL 09/02/2015 Comp Metabolic Qqs064 B/C Ratio 22.1 Ratio 09/02/2015 Comp Metabolic Idn082 CALCIUM 9.3 mg/dL 09/02/2015 Comp Metabolic Rsj762 ALK PHOS 37 U/L 09/02/2015 Comp Metabolic Zfp875 AST(SGOT) 19 U/L 09/02/2015 Comp Metabolic Ifq769 ALT(SGPT) 16 U/L 09/02/2015 Comp Metabolic Qys765 BILI T 0.4 mg/dL 09/02/2015 Comp Metabolic Mga024 ALBUMIN 4.1 g/dL 09/02/2015 Comp Metabolic Ado993 TPRO 6.3 g/dL 09/02/2015 Comp Metabolic Nuh108 GLOB 2.2 g/dL 09/02/2015 Comp Metabolic Mqf306 A/G Ratio 1.8 Ratio 09/02/2015 Comp Metabolic Ucb021 Osmo 276 mOsmo 09/02/2015 A1C HPLC 5625624 A1C HPLC 91746-3 5.6 % 07/23/2014 VIT D TOTL 1678293 VIT D TOTL 52 NG/ML 07/20/2013 GFR CALC 5320856 GFR AA >60 ML/MIN 07/20/2013 GFR CALC 4325686 GFR NON-AA >60 ML/MIN 07/20/2013 CBC 1348635 WBC 5.9 10e9/L 07/20/2013 CBC 2327356 RBC 4.79 10e12/L 07/20/2013 CBC 6587414 HGB 15.5 g/dL 07/20/2013 CBC 0577926 HCT DET 46.1 % 07/20/2013 CBC 4223105 MCV 96.2 fL 07/20/2013 CBC 4171845 MCH 32.4 pg 07/20/2013 CBC 3355797 MCHC 33.6 g/dL 07/20/2013 CBC 9297558 PLT 286 10e9/L 07/20/2013 CBC 5569943 MPV 10.8 fL 07/20/2013 CBC 7715028 ERINN % 66.1 % 07/20/2013 CBC 6328171 LY % 24.3 % 07/20/2013 CBC 2845349 MON % 8.1 % 07/20/2013 CBC 4372185 EOS % 1.2 % 07/20/2013 CBC 2916158 BASO % 0.3 % 07/20/2013 CBC 9813354 RDW 12.7 % 07/20/2013 CBC 0458396 ABS ERINN 3.90 10e9/L 07/20/2013 CBC 8952968 ABS LYMPH 1.43 10e9/L 07/20/2013 CBC 6867192 ABS MONO 0.48 10e9/L 07/20/2013 CBC 4387192 ABS EOS 0.07 10e9/L 07/20/2013 CBC 4958361 ABS BASO 0.02 10e9/L 07/20/2013 CBC 6391891 RDW-SD 44.1 fL 07/20/2013 A1C HPLC 3615746 A1C HPLC 62920-8 5.9 % 07/20/2013 LIPID GRP HDL TEST 54 MG/DL 07/20/2013 LIPID GRP TRIG 98 MG/DL 07/20/2013 LIPID GRP TEST LDL 95 MG/DL 07/20/2013 LIPID GRP CHOL 169 MG/DL 07/20/2013 LIPID GRP RCHOL/HDL 3.13 RATIO 07/20/2013 TSH 1112033 TSH 1.032 uIU/ML 07/20/2013 CHEM 14 7314932 AST 18 U/L 07/20/2013 CHEM 14 1993201 ALT 13 IU/L 07/20/2013 CHEM 14 1236135 BUN 19 MG/DL 07/20/2013 CHEM 14 5598354 ALBUMIN 4.5 GM/DL 07/20/2013 CHEM 14 3533270 CHLORIDE 105 MMOL/L 07/20/2013 CHEM 14 6339329 BILI TOT 0.5 MG/DL 07/20/2013 CHEM 14 9007737 ALK PHOS 40 U/L 07/20/2013 CHEM 14 9897833 SODIUM 137 MMOL/L 07/20/2013 CHEM 14 4656632 CREATININE 0.76 MG/DL 07/20/2013 CHEM 14 9401906 CALCIUM 10.0 MG/DL 07/20/2013 CHEM 14 8144254 POTASSIUM 4.6 MMOL/L 07/20/2013 CHEM 14 1183960 PROT TOT 6.5 GM/DL 07/20/2013 CHEM 14 1230457 GLUCOSE 118 MG/DL 07/20/2013 CHEM 14 7297228 BICARB 26 MMOL/L 07/20/2013 CHEM 14 3642941 ANION GAP 6 MEQ/L 07/20/2013 VIT B 12 3185952 VIT B 12 492 PG/ML 07/20/2013 Review [...] SUBSEQ VISIT CPT- 4: G0439 12/03/2017 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 3-[address]: 653290768 CPT-4: G0436 09/08/2016 ADMIN INFLUENZA VIRUS VAC CPT-4: G0008 05/11/2016 PNEUMOCOCCAL VACC 13 SAULO IM Formatting Model/CDA Sections, Assigned to/Rafia Cuadra SNOMED CT: 72091877 CPT-4: 93663Carscsu 05/11/2016 ADMIN PNEUMOCOCCAL VACCINE SNOMED CT: 25357697 CPT-4: G0009 05/11/2016 FLU VACC 4 SAULO 3 YRS PLUS IM Formatting Model/CDA Sections, Assigned to/Rafia Cuadra SNOMED CT: 62771060 CPT-4: 88161Yvrxfkt 05/11/2016 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 3-[address]: 982260738 CPT-4: G0436 02/10/2016 TRIAMCINOLONE ACET INJ NOS CPT-4: J3301 12/16/2015 DRAIN/INJECT JOINT/BURSA CPT-4: 80752 12/16/2015 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 3-[address]: 465669743 CPT-4: G0436 12/09/2015 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 3-[address]: 584289236 CPT-4: G0436 10/28/2015 THER/PROPH/DIAG INJ SC/IM CPT-4: 44789 11/12/2014 TRIAMCINOLONE ACET INJ NOS CPT-4: J3301 11/12/2014 ROCEPHIN, PER 250 MG CPT- 4: J0696 11/12/2014 ROUTINE VENIPUNCTURE CPT- 4: 78275 07/23/2014 URINALYSIS NONAUTO W/O SCOPE CPT-4: 36452 03/21/2014 ROUTINE VENIPUNCTURE CPT- 4: 17961 07/20/2013 PRESCRIP TRANSMIT VIA ERX SY CPT-4: G8553 07/20/2013 PRESCRIP TRANSMIT VIA ERX SY CPT-4: G8553 06/22/2013 PARTIAL REMOVAL OF LUNG CPT-4: 03697 Unknown Vital Signs Date Vital 09/19/2018 Blood Pressure 1: 140/70 Code: 8480-6 BMI: 31.6 Code: 46866-0 Heart Rate 1: 72 bpm Height: 5'5" SpO2: 96% Weight: 190 lbs 06/16/2018 Blood Pressure 1: 146/84 Code: 8480-6 BMI: 30.6 Code: 68824-9 Heart Rate 1: 68 bpm Height: 5'5" SpO2: 99% Weight: 184 lbs 03/25/2018 Blood Pressure 1: 144/80 Code: 8480-6 BMI: 30.0 Code: 75294-1 Heart Rate 1: 65 bpm Height: 5'5" SpO2: 98% Weight: 180 lbs 12/03/2017 Blood Pressure 1: 142/86 Code: 8480-6 BMI: 29.5 Code: 55284-9 Heart Rate 1: 74 bpm Height: 5'5" SpO2: 93% Weight: 177 lbs 11/25/2017 Blood Pressure 1: 142/84 Code: 8480-6 BMI: 29.5 Code: 95983-7 Heart Rate 1: 69 bpm Height: 5'5" SpO2: 99% Weight: 177 lbs 07/09/2017 Blood Pressure 1: 142/68 Code: 8480-6 BMI: 28.3 Code: 99489-7 Heart Rate 1: 48 bpm Height: 5'5" SpO2: 97% Weight: 170 lbs 04/29/2017 Blood Pressure 1: 148/86 Code: 8480-6 BMI: 28.6 Code: 30552-3 Heart Rate 1: 71 bpm Height: 5'5" SpO2: 95% Weight: 172 lbs 01/07/2017 Blood Pressure 1: 140/70 Code: 8480-6 BMI: 28.8 Code: 35097-0 Heart Rate 1: 68 bpm Height: 5'5" SpO2: 96% Weight: 173 lbs 09/08/2016 Blood Pressure 1: 134/70 Code: 8480-6 BMI: 29.1 Code: 15732-7 Heart Rate 1: 68 bpm Height: 5'5" SpO2: 99% Weight: 175 lbs 05/11/2016 Blood Pressure 1: 138/88 Code: 8480-6 BMI: 29.2 Code: 03829-8 Heart Rate 1: 67 bpm Height: 5'6" SpO2: 95% Weight: 178 lbs 02/10/2016 Blood Pressure 1: 148/82 Code: 8480-6 BMI: 28.8 Code: 09324-4 Heart Rate 1: 63 bpm Height: 5'6" SpO2: 97% Weight: 176 lbs 12/18/2015 Blood Pressure 1: 130/78 Code: 8480-6 BMI: 28.8 Code: 20088-3 Heart Rate 1: 66 bpm Height: 5'6" SpO2: 98% Weight: 176 lbs 12/16/2015 Blood Pressure 1: 162/100 Code: 8480-6 BMI: 28.8 Code: 41292-8 Heart Rate 1: 65 bpm Height: 5'6" SpO2: 98% Weight: 176 lbs 12/09/2015 Blood Pressure 1: 142/70 Code: 8480-6 BMI: 28.4 Code: 40187-8 Heart Rate 1: 65 bpm Height: 5'6" SpO2: 96% Weight: 173 lbs 10/28/2015 Blood Pressure 1: 160/82 Code: 8480-6 Blood Pressure 1: 140/86 Code: 8480-6 BMI: 28.5 Code: 04991-2 Heart Rate 1: 60 bpm Height: 5'6" SpO2: 96% Weight: 174 lbs 08/26/2015 Blood Pressure 1: 158/80 Code: 8480-6 Blood Pressure 1: 148/88 Code: 8480-6 BMI: 28.0 Code: 97679-6 Heart Rate 1: 68 bpm Height: 5'6" SpO2: 98% Weight: 171 lbs 02/12/2015 Blood Pressure 1: 136/74 Code: 8480-6 BMI: 25.9 Code: 64242-4 Heart Rate 1: 61 bpm Height: 5'6" SpO2: 97% Weight: 158 lbs 11/12/2014 Blood Pressure 1: 140/82 Code: 8480-6 BMI: 25.9 Code: 45412-1 Heart Rate 1: 64 bpm Height: 5'6" SpO2: 97% Weight: 158 lbs 07/23/2014 Blood Pressure 1: 138/88 Code: 8480-6 BMI: 25.6 Code: 55908-1 Heart Rate 1: 57 bpm Height: 5'6" SpO2: 95% Weight: 156 lbs 03/21/2014 Blood Pressure 1: 124/64 Code: 8480-6 Heart Rate 1: 64 bpm Weight: 147 lbs 01/25/2014 Blood Pressure 1: 130/70 Code: 8480-6 BMI: 24.4 Code: 54226-0 Height: 5'6" Weight: 149 lbs 10/23/2013 Blood Pressure 1: 152/82 Code: 8480-6 BMI: 25.7 Code: 09211-5 Heart Rate 1: 60 bpm Height: 5'6" Weight: 157 lbs 08/21/2013 Blood Pressure 1: 142/90 Code: 8480-6 BMI: 25.9 Code: 31503-7 Heart Rate 1: 56 bpm Height: 5'6" Weight: 158 lbs 07/20/2013 Blood Pressure 1: 164/80 Code: 8480-6 BMI: 26.2 Code: 85538-9 Heart Rate 1: 60 bpm Height: 5'6" SpO2: 98% Weight: 160 lbs 06/22/2013 Blood Pressure 1: 140/84 Code: 8480-6 BMI: 28.2 Code: 23383-4 Heart Rate 1: 60 bpm Height: 5'6" [...] data Encounters Encounter Performer Location Codes Date ([id number]) 26058 EST. PATIENT, LEVEL IV Diagnosis: Essential (primary) hypertension[ICD10: I10] Diagnosis: Peripheral vascular disease, unspecified[ICD10: I73.9] Diagnosis: Rash and other nonspecific skin eruption[ICD10: R21] Diagnosis: Impaired fasting glucose[ICD10: R73.01] Marily Gonzalez MD, [facility] CPT-4: 54145 09/19/2018 ([id number]) 09385 EST. PATIENT, LEVEL IV Diagnosis: Malignant neoplasm of upper lobe, left bronchus or lung[ICD10: C34.12] Diagnosis: Solitary pulmonary nodule[ICD10: R91.1] Diagnosis: Essential (primary) hypertension[ICD10: I10] Diagnosis: Low back pain[ICD10: M54.5] Diagnosis: Tobacco use[ICD10: Z72.0] Marily Gonzalez MD, [facility] CPT-4: 97211 06/16/2018 ([id number]) 97829 EST. PATIENT, LEVEL IV Diagnosis: Essential (primary) hypertension[ICD10: I10] Diagnosis: Major depressive disorder, recurrent, moderate[ICD10: F33.1] Diagnosis: Low back pain[ICD10: M54.5] Diagnosis: Rash and other nonspecific skin eruption[ICD10: R21] Marily Gonzalez MD, [facility] CPT-4: 28818 03/25/2018 ([id number]) 98187 EST. PATIENT, LEVEL IV Diagnosis: Essential (primary) hypertension[ICD10: I10] Diagnosis: Mixed hyperlipidemia[ICD10: E78.2] Diagnosis: Malignant neoplasm of upper lobe, left bronchus or lung[ICD10: C34.12] Diagnosis: Impaired fasting glucose[ICD10: R73.01] Diagnosis: Cervicalgia[ICD10: M54.2] Diagnosis: Low back pain[ICD10: M54.5] Marily Gonzalez MD, [facility] CPT-4: 46904 11/25/2017 ([id number]) 20880 EST. PATIENT, LEVEL III Diagnosis: Essential (primary) hypertension[ICD10: I10] Marily Gonzalez MD, [facility] CPT-4: 07062 07/09/2017 ([id number]) 99160 EST. PATIENT, LEVEL III Diagnosis: Gas pain[ICD10: R14.1] Diagnosis: Rash and other nonspecific skin eruption[ICD10: R21] Marily Gonzalez MD, [facility] CPT-4: 98663 04/29/2017 ([id number]) 72298 EST. PATIENT, LEVEL III Diagnosis: Essential (primary) hypertension[ICD10: I10] Diagnosis: Malignant neoplasm of upper lobe, left bronchus or lung[ICD10: C34.12] Diagnosis: Chronic obstructive pulmonary disease, unspecified[ICD10: J44.9] Marily Gonzalez MD, [facility] CPT-4: 65071 01/07/2017 ([id number]) 89339 EST. PATIENT, LEVEL IV Diagnosis: Essential (primary) hypertension[ICD10: I10] Diagnosis: Mixed hyperlipidemia[ICD10: E78.2] Diagnosis: Tobacco use[ICD10: Z72.0] Diagnosis: Malignant neoplasm of upper lobe, left bronchus or lung[ICD10: C34.12] Marily Gonzalez MD, [facility] CPT-4: 84719 09/08/2016 ([id number]) 79714 EST. PATIENT, LEVEL IV Diagnosis: Essential (primary) hypertension[ICD10: I10] Diagnosis: Mixed hyperlipidemia[ICD10: E78.2] Diagnosis: Generalized anxiety disorder[ICD10: F41.1] Diagnosis: Other specified disorders of bone density and structure, multiple sites[ICD10: M85.89] Marily Gonzalez MD, [facility] CPT-4: 95771 05/11/2016 ([id number]) 23707 EST. PATIENT, LEVEL IV Diagnosis: Essential (primary) hypertension[ICD10: I10] Diagnosis: Generalized anxiety disorder[ICD10: F41.1] Diagnosis: Tobacco use[ICD10: Z72.0] Marily Gonzalez MD, [facility] CPT-4: 97140 02/10/2016 23843 EST. PATIENT, LEVEL IV Diagnosis: Myalgia[ICD10: M79.1] Diagnosis: Low back pain[ICD10: M54.5] Joy Gonzalez MD, [facility] CPT-4: 01777 12/18/2015 68281 EST. PATIENT, LEVEL IV Diagnosis: Low back pain[ICD10: M54.5] Diagnosis: Pain in right hip[ICD10: M25.551] Joy Gonzalez MD, [facility] CPT-4: 66196 12/16/2015 ([id number]) 97173 EST. PATIENT, LEVEL IV Diagnosis: Low back pain[ICD10: M54.5] Diagnosis: Malignant neoplasm of upper lobe, left bronchus or lung[ICD10: C34.12] Diagnosis: Tobacco use[ICD10: Z72.0] Diagnosis: Essential (primary) hypertension[ICD10: I10] Diagnosis: Generalized anxiety disorder[ICD10: F41.1] Marily Gonzalez MD, [facility] CPT-4: 74042 12/09/2015 ([id number]) 15494 EST. PATIENT, LEVEL IV Diagnosis: Essential (primary) hypertension[ICD10: I10] Diagnosis: Tobacco use[ICD10: Z72.0] Diagnosis: Solitary pulmonary nodule[ICD10: R91.1] Marily Gonzalez MD, [facility] CPT-4: 64506 10/28/2015 ([id number]) 52446 EST. PATIENT, LEVEL IV Diagnosis: Essential (primary) hypertension[ICD10: I10] Diagnosis: Bilateral primary osteoarthritis of hip[ICD10: M16.0] Diagnosis: Solitary pulmonary nodule[ICD10: R91.1] Marily Gonzalez MD, [facility] CPT-4: 65197 08/26/2015 ([id number]) 75239 EST. PATIENT, LEVEL IV Diagnosis: ESSENTIAL HYPERTENSION[ICD9: 401.9] Diagnosis: Pulmonary nodule[ICD9: 793.11] Teresa Gonzalez MD, [facility] CPT-4: 33837 02/12/2015 ([id number]) 45035 EST. PATIENT, LEVEL III Diagnosis: ACUTE BRONCHITIS[ICD9: 466.0] Diagnosis: ALLERGIC RHINITIS[ICD9: 477.9] Teresa Gonzalez MD, [facility] CPT-4: 61860 11/12/2014 ([id number]) 92750 EST. PATIENT, LEVEL IV Diagnosis: ESOPHAGEAL REFLUX[ICD9: 530.81] Diagnosis: ESSENTIAL HYPERTENSION[ICD9: 401.9] Diagnosis: Elevated blood sugar[ICD9: 790.29] Marily Gonzalez MD, [facility] CPT- 4: 71724 07/23/2014 ([id number]) 65978 EST. PATIENT, LEVEL III Diagnosis: Vaginal yeast infection[ICD9: 112.1] Diagnosis: Vaginal burning[ICD9: 625.8] Diagnosis: History of UTI[ICD9: V13.02] Diagnosis: Dysuria[ICD9: 788.1] Marily Gonzalez MD, [facility] CPT-4: 74649 03/21/2014 ([id number]) 09793 EST. PATIENT, LEVEL III Diagnosis: ESSENTIAL HYPERTENSION[ICD9: 401.9] Marily oGnzalez MD, [facility] CPT-4: 11978 01/25/2014 ([id number]) 73765 EST. PATIENT, LEVEL III Diagnosis: ESSENTIAL HYPERTENSION[SNOMED: 16905703] Diagnosis: ESOPHAGEAL REFLUX[ICD9: 530.81] Teresa Gonzalez MD, [facility] CPT-4: 64792 10/23/2013 ([id number]) 39794 EST. PATIENT, LEVEL IV Diagnosis: ESOPHAGEAL REFLUX[ICD9: 530.81] Diagnosis: ESSENTIAL HYPERTENSION[SNOMED: 49711505] Diagnosis: Rash[ICD9: 782.1] Marily Gonzalez MD, [facility] CPT-4: 77263 08/21/2013 ([id number]) 66821 EST. PATIENT, LEVEL IV Diagnosis: Muscle ache of extremity[ICD9: 729.1] Diagnosis: Tingling in extremities[ICD9: 782.0] Diagnosis: ESSENTIAL HYPERTENSION[SNOMED: 05501487] Diagnosis: GERD (gastroesophageal reflux disease)[ICD9: 530.81] Diagnosis: Elevated blood sugar[ICD9: 790.29] Marily Gonzalez MD, [facility] CPT- 4: 52738 07/20/2013 OFFICE VISIT, NEW - LEVEL 3 Diagnosis: ESSENTIAL HYPERTENSION[SNOMED: 98076191] Diagnosis: Tobacco use[ICD9: 305.1] Diagnosis: Depression[ICD9: 311] Marily Gonzalez MD, [facility] CPT-4: 10432 06/22/2013 ([id number]) BEHAV CHNG SMOKING 3-10 MIN Diagnosis: [ICD9: ] [facility] CPT-4: 38870 06/22/2013 Plan of Care Planned Activity Notes [...] -check TA 09/19/2018 Appointment: Marily Valerio WPtel: [address] [place], [place] [phone] (30 min) Complex 09/19/2018 Patient Education: Patient Medication Summary Completed 09/19/2018 Appointment: Marily Valerio WPtel: [facility] [address] (15 min) Moderate 09/16/2018 Patient Education: Patient Medication Summary Completed 06/27/2018 Visit Plan: Lung nodule -right lung -on surveillance -patient also has history of left lung cancer with lobectomy -does not want to go to for oncology -wants to see Dr Mata at [facility] in [place] -will send referral Lumbar radiculopathy -rx for gabapentin provided and instructed on use - recommend patient return to Dr Herrera to discussed epidural injections HTN-controlled- no changes Tobacco use-patient continues to smoke and is not interested in quitting -smoking cessation encouraged 06/16/2018 Appointment: Marily Valerio WPtel: [facility] [address] (30 min) Complex 06/16/2018 Patient Education: Patient [...] start PT 03/25/2018 Appointment: Marily Valerio WPtel: [facility] [address] (15 min) Moderate 03/25/2018 Patient Education: Patient [...] vs PT 11/25/2017 Appointment: Mar[facility] Valerio WPtel[phone] [place] (15 min) Moderate 11/25/2017 Patient Education: Patient Medication Summary Completed 11/25/2017 Care Plan: X-RAY EXAM L-S SPINE 2/3 VWS LOINC : 19458-4 Pending 11/25/2017 Care Plan: X-RAY EXAM NECK SPINE 2-3 VW LOINC : 33258-6 Pending 11/25/2017 Appointment: Marily Valerio WPtel: [address] [place], [place] [phone] [place] [address] (15 min) Moderate 11/02/2017 Visit Plan: Hypertension - well controlled - continue with current medications, continue with no added salt diet. Pt has been encouraged to exercise daily. The pt has been advised to call the office if there are any acute concerns about change in blood pressure readings at home. Lung cancer-PRME lobectomy 06/2017-followed by OLLIE and Dr Ryan 07/09/2017 Appointment: Marily Valerio WPtel: [address] [place] [address] (15 min) Moderate 07/09/2017 Patient Education: Patient Medication Summary Completed 07/09/2017 Patient Education: Smoking and Tobacco Addiction Completed 07/09/2017 Appointment: Marily Valerio WPtel: [address] [place], [place] [phone] (15 min) Moderate 07/08/2017 Visit Plan: Gas and bloating-cut out dairy x 2 weeks-increase gas x to TID-call if symptoms uncontrolled Rash-rx for nystatin powder provided-keep clean/dry-call if does not resolve or if any worse 04/29/2017 Appointment: Marily Valerio WPtel: [phone] (15 min) Moderate 04/29/2017 Patient Education: Patient [...] nicotine patches 01/07/2017 Appointment: Marily Valerio WPtel: [phone] (15 min) Moderate 01/07/2017 Patient Education: Patient Medication Summary Completed 01/07/2017 Patient Education: Smoking and Tobacco Addiction Completed 01/07/2017 Patient Education: Hypertension Completed 01/07/2017 Appointment: Marily Valerio WPtel: [phone] (30 min) Complex 01/05/2017 Visit Plan: Hypertension [...] Ryan in 09/08/2016 Appointment: Marily Valerio WPtel: [phone] (15 min) Moderate 09/08/2016 Patient Education: Patient [...] bone density 05/11/2016 Appointment: Marily Valerio WPtel: [phone] (15 min) Moderate 05/11/2016 Patient Education: [...] Care Plan: MRI LUMBAR SPINE W/O DYE [facility] : 07876-5 Cancelled 01/17/2016 Visit Plan: Continued Low back [...] they worsen. 12/18/2015 Appointment: Marily Valerio WPtel: [phone] [phone] (30 min) Complex 12/18/2015 Patient Education: Patient [...] they worsen. 12/16/2015 Appointment: Joy Flores [facility]Ptel[phone] [facility] (15 min) Moderate 12/16/2015 Patient Education: [...] removed at [facility] this week to schedule Tobacco use-no cigarettes [...] blood pressure readings at home. Arthritis of zjtj-lkkx-uctfx mobic-monitor symptoms-check labs Left lung nodule- most recent scan shows slight increase in size and needs further evaluation- managed by Dr Corea-appt is this week 08/26/2015 Appointment: Marily Valerio WPtel: [phone] [phone] [place] (30 min) Complex 08/26/2015 Patient Education: Patient Medication Summary Completed 08/26/2015 Patient Education: Hypertension Completed 08/26/2015 Appointment: Teresa Gonzalez WPtel: [phone] [facility] [place] (15 min) Moderate 08/15/2015 Appointment: Teresa Gonzalez WPtel: [phone] [facility] (15 min) Moderate 08/15/2015 Visit Plan: Hypertension - well controlled - continue with current medications, continue with no added salt diet. Pt has been encouraged to exercise daily. The pt has been advised to call the office if there are any acute concerns about change in blood pressure readings at home. Pulmonary nodule - Recommended repeat CT scan. 02/12/2015 Appointment: Teresa Gonzalez WPtel: [phone] [facility] [place] Follow up 02/12/2015 Patient Education: Patient Medication [...] bloating-use dicyclomine prn Elevated blood sugar-check Hgb R1W-ory back on sweets/carbs 07/23/2014 Appointment: Follow up [...] at home. 01/25/2014 Appointment: Marily Valerio WPtel: [phone] Follow up 01/25/2014 Patient Education: Patient [...] Dr. Mckeon. 10/23/2013 Appointment: Teresa Gonzalez WPtel[facility] Follow up 10/23/2013 Patient Education: Patient Medication [...] any worse. 08/21/2013 Appointment: Marily Valerio WPtel: [address] [place] [address] Follow up 08/21/2013 Patient Education: Patient Medication [...] with Dr Combs as scheduled Tingling of iowovbctkbn-lgltkaxy-ztiiq labs including vitamin b12 and vitamin d Elevated blood sugar-check hgb a1c 07/20/2013 Appointment: Marily Valeriotel: [address] [place], [place] [phone] Follow up 07/20/2013 Patient Education: Patient Medication [...] 1 week before quit date. 06/22/2013 Appointment: [facility]io[facility]el[facility] [phone] [phone] New Patient 06/22/2013 Patient Education: Patient Medication [...] not resolve or if any worse. BONE DENSITY-TOURIST AGENT MON-THURS FLU AND PREVNAR 13 . Hypertension [...] with Dr Combs as scheduled Tingling of bdtxobxdhiv-othsrmni-kqnig labs including vitamin b12 and vitamin d [...] Intermittent claudication -check TA Dr Mata at [facility] ( or wednesday) gabapentin 100mg at bedtime screening mammogram make an appt with Dr Herrera to discuss epidural injections . Lung nodule -right lung -on surveillance -patient also has history of left lung cancer with lobectomy -does not want to go to for oncology -wants to see Dr Mata at [facility] in [place] -will send referral Lumbar radiculopathy -rx for [...] blood pressure readings at home. Arthritis of sduh-ulbp-swsjk mobic-monitor symptoms-check labs Left lung nodule-most recent [...] bloating-use dicyclomine prn Elevated blood sugar-check Hgb M1Z-lix back on sweets/carbs . Hypertension - well [...]
--- OUTSIDE RECORDS SUMMARY | 2019-03-31 09:24 | XMS REPORT | CCD ---
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 Unknown Has never used illegal drugs 06/22/2013 Allergies, Adverse Reactions, Alerts Substance Reaction Codes Entered Date Inactivated Date Status lisinopril cough, RxNorm: 78477 06/22/2013 No Inactive Date Active SULFA (SULFONAMIDE [...] Start Date Stop Date Status Fill Instructions gabapentin 300 mg capsule RxNorm: 647715 1 Capsule(s) PO QHS 09/30/2018 10/13/2018 Active then increase to BID Lyrica 50 mg capsule RxNorm: 345044 1 Capsule(s) PO BID 09/27/2018 12/25/2018 Active Lyrica 50 mg capsule RxNorm: 579823 1 Capsule(s) PO BID 09/27/2018 09/26/2018 Inactive nystatin 100,000 unit/gram topical cream RxNorm: 682792 1 Application TOP BID 09/19/2018 10/02/2018 Active mix with betamethasone Diovan 320 mg tablet RxNorm: 678421 1 Tablet(s) PO daily 09/19/2018 03/17/2019 Active dicyclomine 20 mg tablet RxNorm: 477605 1 Tablet(s) PO TID PRN TAKE ONE CAPSULE BY MOUTH THREE TIMES A DAY NEEDED 09/19/2018 09/02/2021 Active betamethasone dipropionate 0.05 % topical cream RxNorm: 973551 1 Application TOP BID 09/19/2018 10/02/2018 Active metoprolol tartrate 100 mg tablet RxNorm: 301890 1 Tablet(s) PO BID TAKE ONE TABLET BY MOUTH TWICE A DAY 09/19/2018 06/15/2019 Active dicyclomine 10 mg capsule RxNorm: 092124 1 Capsule(s) PO TID PRN TAKE ONE CAPSULE BY MOUTH THREE TIMES A DAY NEEDED 09/19/2018 09/18/2018 Inactive nystatin 100,000 unit/gram topical cream RxNorm: 179200 1 Application TOP BID 06/16/2018 06/29/2018 Inactive gabapentin 100 mg capsule RxNorm: 673213 1 Capsule(s) PO UD 06/16/2018 07/15/2018 Inactive 1 po q HS x 1 week then 2 po q HS x 1 week then increase to 3 q HS amlodipine 10 mg tablet RxNorm: 485466 TAKE ONE TABLET BY MOUTH EVERY DAY 05/26/2018 11/21/2018 Active Lipitor 10 mg tablet RxNorm: 232375 Tablet(s) TAKE ONE TABLET BY MOUTH EVERY OTHER DAY 05/25/2018 02/18/2019 Active Lexapro 20 mg tablet RxNorm: 599208 1 Tablet(s) PO QPM 03/25/2018 09/20/2018 Inactive nystatin 100,000 unit/gram topical cream RxNorm: 272271 1 Application TOP BID 03/25/2018 04/07/2018 Inactive olmesartan 40 mg tablet RxNorm: 659856 1 Tablet(s) PO daily 03/25/2018 09/18/2018 Inactive Lipitor 10 mg tablet RxNorm: 817663 TAKE ONE TABLET BY MOUTH EVERY OTHER DAY 03/18/2018 12/11/2018 Active Diovan 320 mg tablet RxNorm: 291956 TAKE ONE TABLET BY MOUTH DAILY 03/18/2018 03/24/2018 Inactive metoprolol tartrate 100 mg tablet RxNorm: 509595 TAKE ONE TABLET BY MOUTH TWICE A DAY 01/05/2018 09/18/2018 Inactive Diovan 320 mg tablet RxNorm: 355030 TAKE ONE TABLET BY MOUTH EVERY DAY 12/16/2017 03/17/2018 Inactive Lexapro 10 mg tablet RxNorm: 998124 1 Tablet(s) PO QPM 11/25/2017 03/24/2018 Inactive amlodipine 10 mg tablet RxNorm: 144437 TAKE ONE TABLET BY MOUTH EVERY DAY 11/15/2017 05/13/2018 Inactive Lipitor 10 mg tablet RxNorm: 011438 TAKE ONE TABLET BY MOUTH EVERY OTHER DAY 10/18/2017 03/17/2018 Inactive dicyclomine 10 mg capsule RxNorm: 572476 TAKE ONE CAPSULE BY MOUTH THREE TIMES A DAY NEEDED 08/12/2017 09/18/2018 Inactive Lipitor 10 mg tablet RxNorm: 372424 TAKE ONE TABLET BY MOUTH EVERY OTHER DAY 07/12/2017 10/17/2017 Inactive Diovan 320 mg tablet RxNorm: 875659 TAKE ONE TABLET BY MOUTH EVERY DAY 06/09/2017 12/05/2017 Inactive dicyclomine 10 mg capsule RxNorm: 781444 TAKE ONE CAPSULE BY MOUTH THREE TIMES A DAY NEEDED 05/05/2017 08/02/2017 Inactive nystatin 100,000 unit/gram topical powder RxNorm: 686582 1 Application TOP BID 04/29/2017 05/08/2017 Inactive Diovan 320 mg tablet RxNorm: 661024 TAKE ONE TABLET BY MOUTH EVERY DAY 03/10/2017 06/07/2017 Inactive dicyclomine 10 mg capsule RxNorm: 010242 TAKE ONE CAPSULE BY MOUTH THREE TIMES A DAY NEEDED 02/04/2017 05/04/2017 Inactive amlodipine 10 mg tablet RxNorm: 242615 TAKE ONE TABLET BY MOUTH EVERY DAY 02/04/2017 10/31/2017 Inactive Lipitor 10 mg tablet RxNorm: 122006 TAKE ONE TABLET BY MOUTH EVERY OTHER DAY 02/04/2017 07/11/2017 Inactive Fish Oil 1,000 mg capsule RxNorm: 1 Capsule(s) PO TID 01/07/2017 No Stop Date Active metoprolol tartrate 100 mg tablet RxNorm: 621818 1 Tablet(s) PO BID TAKE ONE TABLET BY MOUTH TWICE A DAY 01/07/2017 01/01/2018 Inactive Diovan 320 mg tablet RxNorm: 222676 TAKE ONE TABLET BY MOUTH EVERY DAY 11/05/2016 03/04/2017 Inactive Lipitor 10 mg tablet RxNorm: 763322 1 Tablet(s) PO every other day 09/08/2016 01/05/2017 Inactive dc livalo dicyclomine 10 mg capsule RxNorm: 231947 TAKE ONE CAPSULE BY MOUTH THREE TIMES A DAY NEEDED 07/30/2016 01/25/2017 Inactive Diovan 320 mg tablet RxNorm: 413021 TAKE ONE TABLET BY MOUTH EVERY DAY 06/15/2016 11/04/2016 Inactive Lipitor 10 mg tablet RxNorm: 424291 1 Tablet(s) PO every other day 05/25/2016 05/24/2016 Inactive dc livalo Lipitor 10 mg tablet RxNorm: 985940 1 Tablet(s) PO every other day 05/25/2016 09/07/2016 Inactive dc livalo Livalo 2 mg tablet RxNorm: 749210 1 Tablet(s) PO daily 05/20/2016 05/19/2016 Inactive Livalo 2 mg tablet RxNorm: 854605 1 Tablet(s) PO daily 05/20/2016 05/24/2016 Inactive Celexa 10 mg tablet RxNorm: 855106 1 Tablet(s) PO daily 02/10/2016 11/24/2017 Inactive amlodipine 10 mg tablet RxNorm: 514695 TAKE ONE TABLET BY MOUTH EVERY DAY 02/03/2016 02/02/2016 Inactive amlodipine 10 mg tablet RxNorm: 249906 TAKE ONE TABLET BY MOUTH EVERY DAY 02/03/2016 01/27/2017 Inactive amlodipine 10 mg tablet RxNorm: 849811 TAKE ONE TABLET BY MOUTH EVERY DAY 02/03/2016 04/27/2017 Inactive metoprolol tartrate 100 mg tablet RxNorm: 955197 TAKE ONE TABLET BY MOUTH TWICE A DAY 2016 01/06/2017 Inactive Diovan 320 mg tablet RxNorm: 053691 TAKE ONE TABLET BY MOUTH EVERY DAY 12/19/2015 06/14/2016 Inactive Wellbutrin XL 150 mg 24 hr tablet, extended release RxNorm: 089325 1 Tablet(s) PO daily 12/09/2015 02/09/2016 Inactive tramadol 50 mg tablet RxNorm: 438679 1-2 Tablet(s) PO Q6 PRN 12/09/2015 11/24/2017 Inactive Mobic 7.5 mg tablet RxNorm: 405792 TAKE ONE TABLET BY MOUTH DAILY 11/11/2015 11/24/2017 Inactive dicyclomine 10 mg capsule RxNorm: 459813 TAKE ONE CAPSULE BY MOUTH THREE TIMES A DAY NEEDED 11/11/2015 07/29/2016 Inactive Wellbutrin 75 mg tablet RxNorm: 533276 1 Tablet(s) PO BID 10/28/2015 12/08/2015 Inactive simvastatin 20 mg tablet RxNorm: 888473 TAKE ONE TABLET BY MOUTH EVERY DAY 09/05/2015 2016 Inactive Mobic 7.5 mg tablet RxNorm: 371444 1 Tablet(s) PO daily 08/26/2015 11/10/2015 Inactive estradiol 0.5 mg tablet RxNorm: 193490 TAKE ONE TABLET BY MOUTH EVERY DAY 06/11/2015 03/06/2016 Inactive amlodipine 10 mg tablet RxNorm: 145446 TAKE ONE TABLET BY MOUTH EVERY DAY 04/19/2015 01/13/2016 Inactive dicyclomine 10 mg capsule RxNorm: 763317 TAKE ONE CAPSULE BY MOUTH THREE TIMES A DAY NEEDED 04/19/2015 10/15/2015 Inactive simvastatin 20 mg tablet RxNorm: 768297 TAKE ONE TABLET BY MOUTH EVERY DAY 02/21/2015 08/19/2015 Inactive Diovan 320 mg tablet RxNorm: 924197 TAKE ONE TABLET BY MOUTH EVERY DAY 12/19/2014 12/18/2015 Inactive cephalexin 500 mg capsule RxNorm: 762290 1 Capsule(s) PO TID 11/13/2014 11/19/2014 Inactive prednisone 10 mg tablet RxNorm: 801930 3 Tablet(s) PO daily 11/13/2014 11/17/2014 Inactive prednisone 10 mg tablet RxNorm: 688760 3 Tablet(s) PO daily 11/12/2014 11/12/2014 Inactive Kenalog 40 mg/mL suspension for injection RxNorm: 4776484 Milliliter(s) Inj 11/12/2014 11/12/2014 Inactive cephalexin 500 mg capsule RxNorm: 466170 1 Capsule(s) PO TID 11/12/2014 11/12/2014 Inactive ceftriaxone 500 mg solution for injection RxNorm: 3551151 Inj 11/12/2014 11/12/2014 Inactive dicyclomine 10 mg capsule RxNorm: 912037 TAKE ONE CAPSULE BY MOUTH THREE TIMES A DAY NEEDED 11/08/2014 04/18/2015 Inactive metoprolol tartrate 100 mg tablet RxNorm: 658070 TAKE ONE TABLET BY MOUTH TWICE A DAY 10/18/2014 2015 Inactive metoprolol tartrate 100 mg tablet RxNorm: 267033 1 Tablet(s) PO BID 10/18/2014 10/12/2015 Inactive simvastatin 20 mg tablet RxNorm: 067188 TAKE ONE TABLET BY MOUTH EVERY DAY 08/21/2014 02/16/2015 Inactive Diovan 320 mg tablet RxNorm: 500996 TAKE ONE TABLET BY MOUTH EVERY DAY 08/21/2014 12/18/2014 Inactive Carafate 1 gram tablet RxNorm: 699373 1 Tablet(s) PO AC & HS MIX WITH 30ML WATER 07/23/2014 11/24/2017 Inactive dissolve in water and drink as slurry dicyclomine 10 mg capsule RxNorm: 616680 1 Capsule(s) PO TID PRN 07/23/2014 10/20/2014 Inactive simvastatin 20 mg tablet RxNorm: 817771 TAKE ONE TABLET BY MOUTH EVERY DAY 06/07/2014 08/20/2014 Inactive estradiol 0.5 mg tablet RxNorm: 241947 TAKE ONE TABLET BY MOUTH EVERY DAY 05/16/2014 05/10/2015 Inactive amlodipine 10 mg tablet RxNorm: 714695 TAKE ONE TABLET BY MOUTH EVERY DAY 05/16/2014 04/18/2015 Inactive Diovan 320 mg tablet RxNorm: 151616 TAKE ONE TABLET BY MOUTH EVERY DAY 03/26/2014 08/20/2014 Inactive Diflucan 150 mg tablet RxNorm: 955317 1 Tablet(s) PO daily 03/21/2014 03/27/2014 Inactive simvastatin 20 mg tablet RxNorm: 854409 TAKE ONE TABLET BY MOUTH EVERY DAY 03/02/2014 05/30/2014 Inactive estradiol 0.5 mg tablet RxNorm: 068657 TAKE ONE TABLET BY MOUTH EVERY DAY 02/16/2014 05/15/2014 Inactive amlodipine 10 mg tablet RxNorm: 974730 TAKE ONE TABLET BY MOUTH EVERY DAY 02/16/2014 05/15/2014 Inactive pantoprazole 40 mg tablet,delayed release RxNorm: 820542 2 Tablet(s) PO daily 01/25/2014 02/23/2014 Inactive simvastatin 20 mg tablet RxNorm: 014377 Tablet(s) PO TAKE ONE TABLET BY MOUTH EVERY DAY 11/30/2013 03/01/2014 Inactive amlodipine 10 mg tablet RxNorm: 692341 Tablet(s) PO TAKE ONE TABLET BY MOUTH EVERY DAY 11/16/2013 02/15/2014 Inactive metoprolol tartrate 100 mg tablet RxNorm: 622065 1 Tablet(s) PO BID 10/23/2013 10/17/2014 Inactive Diovan 320 mg tablet RxNorm: 305461 Tablet(s) PO TAKE ONE TABLET BY MOUTH EVERY DAY 09/28/2013 03/25/2014 Inactive Carafate 1 gram tablet RxNorm: 526476 1 Tablet(s) PO TID MIX WITH 30ML WATER 09/20/2013 12/18/2013 Inactive estradiol 0.5 mg tablet RxNorm: 979678 1 Tablet(s) PO daily 08/21/2013 02/15/2014 Inactive amlodipine 10 mg tablet RxNorm: 440991 1 Tablet(s) PO daily 08/21/2013 11/15/2013 Inactive simvastatin 20 mg tablet RxNorm: 114641 1 Tablet(s) PO daily 08/21/2013 11/18/2013 Inactive Diovan 320 mg tablet RxNorm: 493144 1 Tablet(s) PO daily 08/21/2013 09/19/2013 Inactive Carafate 1 gram tablet RxNorm: 113235 1 Tablet(s) PO TID MIX WITH 30ML WATER 08/21/2013 09/19/2013 Inactive Diovan 320 mg tablet RxNorm: 763330 1 Tablet(s) PO daily 07/20/2013 08/18/2013 Inactive amlodipine 10 mg tablet RxNorm: 458494 1 Tablet(s) PO daily 07/20/2013 08/18/2013 Inactive estradiol 0.5 mg tablet RxNorm: 328115 1 Tablet(s) PO daily 07/20/2013 08/18/2013 Inactive metoprolol tartrate 100 mg tablet RxNorm: 782831 1 Tablet(s) PO BID 06/22/2013 10/22/2013 Inactive Wellbutrin XL 150 mg 24 hr tablet, extended release RxNorm: 045728 1 Tablet(s) PO daily 06/22/2013 07/19/2013 Inactive pantoprazole 40 mg tablet,delayed release RxNorm: 751476 1 Tablet(s) PO daily No Start Date Active calcium 500 mg tablet RxNorm: 2 Tablet(s) PO BID No Start Date Active glucosamine and pezjvvffgaf-ilmakevb-lfzo#3 oral RxNorm: 2837 oral No Start Date Active multivitamin tablet RxNorm: 1 Tablet(s) PO daily No Start Date Active aspirin 81 mg tablet RxNorm: 757085 1 Tablet(s) PO daily No Start Date Active Probiotic oral RxNorm: oral No Start Date Active Vitamin D3 1,000 unit capsule RxNorm: 311289 1 Capsule(s) PO daily No Start Date Active Eliquis 5 mg tablet RxNorm: 6283927 1 Tablet(s) PO BID No Start Date Active simvastatin 20 mg tablet RxNorm: 604296 1 Tablet(s) PO daily No Start Date 08/20/2013 Inactive hyoscyamine 0.125 mg sublingual tablet RxNorm: 4647115 1 Tablet(s) SL TID No Start Date 07/22/2014 Inactive metoprolol tartrate 100 mg tablet RxNorm: 354896 1 Tablet(s) PO daily No Start Date 06/21/2013 Inactive amlodipine 10 mg tablet RxNorm: 092111 1 Tablet(s) PO daily No Start Date 07/19/2013 Inactive Diovan 320 mg tablet RxNorm: 303555 1 Tablet(s) PO daily No Start Date 07/19/2013 Inactive Fish Oil 1,000 mg capsule RxNorm: 1 Capsule(s) PO BID No Start Date 01/06/2017 Inactive omeprazole 20 mg tablet,delayed release RxNorm: 309662 1 Tablet(s) PO daily No Start Date 01/25/2014 Inactive estradiol 0.5 mg tablet RxNorm: 181314 1 Tablet(s) PO daily No Start Date 07/19/2013 Inactive Medication Administered Medication Codes Instructions Start Date Status Kenalog 40 mg/mL suspension for injection RxNorm: 3131337 Milliliter 11/12/2014 No longer Active ceftriaxone 500 mg solution for injection RxNorm: 6457526 11/12/2014 No longer Active Immunizations Vaccine Codes Date Status Influenza CVX: 141 05/11/2016 completed Pneumococcal (Adult) CVX: 133 05/11/2016 completed Influenza CVX: 141 08/13/2013 completed Assessments Condition Codes Effective Dates Rash and other nonspecific skin eruption ICD-10: R21 ICD-9: 782.1 09/19/2018 Essential (primary) hypertension ICD-10: I10 ICD-9: 401.1 09/19/2018 Impaired fasting glucose ICD-10: R73.01 ICD-9: 790.21 09/19/2018 Peripheral vascular disease, unspecified ICD-10: I73.9 ICD-9: 443.9 09/19/2018 Encounter for screening mammogram for malignant neoplasm of breast ICD-10: Z12.31 ICD-9: V76.12 06/27/2018 Tobacco use ICD-10: Z72.0 ICD-9: 305.1 06/16/2018 Solitary pulmonary nodule ICD-10: R91.1 ICD-9: 793.11 06/16/2018 Low back pain ICD-10: M54.5 ICD-9: 724.2 06/16/2018 Malignant neoplasm of upper lobe, left bronchus or lung ICD-10: C34.12 ICD-9: 162.3 06/16/2018 Major depressive disorder, recurrent, moderate ICD-10: F33.1 ICD-9: 296.32 03/25/2018 Encounter for general adult medical examination with abnormal findings ICD-10: Z00.01 ICD-9: V70.0 12/03/2017 Mixed hyperlipidemia ICD-10: E78.2 ICD-9: 272.2 11/25/2017 Cervicalgia ICD-10: M54.2 ICD-9: 723.1 11/25/2017 Gas pain ICD-10: R14.1 ICD-9: 787.3 04/29/2017 Essential (primary) hypertension ICD-10: I10 ICD-9: 401.9 01/07/2017 Chronic obstructive pulmonary disease, unspecified ICD-10: J44.9 ICD-9: 496 01/07/2017 Generalized anxiety disorder ICD-10: F41.1 ICD-9: 300.02 05/11/2016 Other specified disorders of bone density and structure, multiple sites ICD-10: M85.89 ICD-9: 733.90 05/11/2016 Encounter for immunization ICD-10: Z23 ICD-9: V04.81 05/11/2016 Myalgia ICD-10: M79.1 ICD-9: 729.1 12/18/2015 Pain in right hip ICD-10: M25.551 ICD-9: 719.45 12/16/2015 Bilateral primary osteoarthritis of hip ICD-10: M16.0 ICD-9: 715.95 08/26/2015 ESSENTIAL HYPERTENSION ICD-9: 401.9 02/12/2015 Pulmonary nodule ICD-9: 793.11 02/12/2015 Other screening mammogram ICD-9: V76.12 01/07/2015 ALLERGIC RHINITIS ICD-9: 477.9 11/12/2014 Cough ICD-9: 786.2 11/12/2014 ACUTE BRONCHITIS ICD-9: 466.0 11/12/2014 Tobacco use ICD-9: 305.1 11/12/2014 ESOPHAGEAL REFLUX ICD-9: 530.81 07/23/2014 Elevated blood sugar ICD-9: 790.29 07/23/2014 Vaginal yeast infection ICD-9: 112.1 03/21/2014 History of UTI ICD-9: V13.02 03/21/2014 Dysuria ICD-9: 788.1 03/21/2014 Vaginal burning ICD-9: 625.8 03/21/2014 Rash ICD-9: 782.1 08/21/2013 Tingling in [...] Lipid Ord30 C/HDL 3.5 Ratio 11/25/2017 %Hba1C Bhr847 % HbA1c 02862- 6 5.7 % 11/25/2017 %Hba1C Bkd578 Gluc Ave 117 mg/dL 11/25/2017 Tsh Ord6 TSH (3rd IS) 1.06 uIU/mL 11/25/2017 Comp Metabolic Ijc204 NA 141 mEq/L 11/25/2017 Comp Metabolic Kwk742 K 4.2 mEq/L 11/25/2017 Comp Metabolic Sgp533 CL 103 mEq/L 11/25/2017 Comp Metabolic Bwy266 CO2 31.0 mEq/L 11/25/2017 Comp Metabolic Woo826 ANION GAP 11 11/25/2017 Comp Metabolic Iyz512 GLUCOSE 117 mg/dL 11/25/2017 Comp Metabolic Suy827 Creat 0.8 mg/dL 11/25/2017 Comp Metabolic Tuh020 eGFR 74 ml/min/1.73m2 11/25/2017 Comp Metabolic Svq533 BUN 18 mg/dL 11/25/2017 Comp Metabolic Rwr757 B/C Ratio 22.2 Ratio 11/25/2017 Comp Metabolic Vbc523 CALCIUM 9.4 mg/dL 11/25/2017 Comp Metabolic Afh390 ALK PHOS 62 U/L 11/25/2017 Comp Metabolic Yzk861 AST(SGOT) 21 U/L 11/25/2017 Comp Metabolic Ufy359 ALT(SGPT) 18 U/L 11/25/2017 Comp Metabolic Aiv884 BILI T 0.4 mg/dL 11/25/2017 Comp Metabolic Cui091 ALBUMIN 4.0 g/dL 11/25/2017 Comp Metabolic Qpk580 TPRO 6.1 g/dL 11/25/2017 Comp Metabolic Qdh991 GLOB 2.1 g/dL 11/25/2017 Comp Metabolic Eje621 A/G Ratio 1.9 Ratio 11/25/2017 Comp Metabolic Luq248 Osmo 284 mOsmo 11/25/2017 Cbc With Differential [...] 37.4 % 11/25/2017 Cbc With Differential Ord2 Heard% 11.2 % 11/25/2017 Cbc With Differential Ord2 MCH 31.1 pg 11/25/2017 Cbc With Differential Ord2 MCHC 31.9 pg 11/25/2017 Cbc With Differential Ord2 Eos% 2.2 % 11/25/2017 Cbc With Differential Ord2 PLT 351 K/ul 11/25/2017 Cbc With Differential Ord2 Baso% 0.4 % 11/25/2017 Cbc With Differential Ord2 RDW 14.1 % 11/25/2017 Cbc With Differential Ord2 Neut ABS# 2.65 K/ul 11/25/2017 Cbc With Differential Ord2 Lymph ABS# 2.03 K/ul 11/25/2017 Cbc With Differential Ord2 Heard ABS# 0.6 K/ul 11/25/2017 Cbc With Differential [...] 31.8 pg 05/11/2016 Cbc With Differential Ord2 Heard% 9.5 % 05/11/2016 Cbc With Differential Ord2 MCHC 32.5 pg 05/11/2016 Cbc With Differential Ord2 Eos% 1.9 % 05/11/2016 Cbc With Differential Ord2 Baso% 0.6 % 05/11/2016 Cbc With Differential Ord2 PLT 302 K/ul 05/11/2016 Cbc With Differential Ord2 RDW 13.8 % 05/11/2016 Cbc With Differential Ord2 Neut ABS# 2.30 K/ul 05/11/2016 Cbc With Differential Ord2 Lymph ABS# 1.76 K/ul 05/11/2016 Cbc With Differential Ord2 Heard ABS# 0.4 K/ul 05/11/2016 Cbc With Differential Ord2 Eos ABS# 0.1 K/ul 05/11/2016 Cbc With Differential Ord2 Baso ABS# 0.0 K/ul 05/11/2016 Comp Metabolic Tkn286 NA 139 mEq/L 05/11/2016 Comp Metabolic Lvu417 K 4.6 mEq/L 05/11/2016 Comp Metabolic Vhx928 CL 104 mEq/L 05/11/2016 Comp Metabolic Gyp622 CO2 30.0 mEq/L 05/11/2016 Comp Metabolic Efd639 ANION GAP 10 05/11/2016 Comp Metabolic Uhk769 GLUCOSE 113 mg/dL 05/11/2016 Comp Metabolic Oga786 Creat 0.8 mg/dL 05/11/2016 Comp Metabolic Kvg867 eGFR 74 ml/min/1.73m2 05/11/2016 Comp Metabolic Wya177 BUN 16 mg/dL 05/11/2016 Comp Metabolic Ovy028 B/C Ratio 19.8 Ratio 05/11/2016 Comp Metabolic Zmw128 CALCIUM 10.1 mg/dL 05/11/2016 Comp Metabolic Hux976 ALK PHOS 44 U/L 05/11/2016 Comp Metabolic Yop106 AST(SGOT) 20 U/L 05/11/2016 Comp Metabolic Rwx337 ALT(SGPT) 17 U/L 05/11/2016 Comp Metabolic Fgj869 BILI T 0.4 mg/dL 05/11/2016 Comp Metabolic Dnt224 ALBUMIN 4.1 g/dL 05/11/2016 Comp Metabolic Tpf486 TPRO 6.5 g/dL 05/11/2016 Comp Metabolic Pvd647 GLOB 2.4 g/dL 05/11/2016 Comp Metabolic Zap916 A/G Ratio 1.8 Ratio 05/11/2016 Comp Metabolic Qpy927 Osmo 280 mOsmo 05/11/2016 Tsh Ord6 hTSH II 0.96 uIU/mL 05/11/2016 Lipid Ord30 CHOL 283 mg/dL 05/11/2016 Lipid Ord30 HDL 53.0 mg/dl 05/11/2016 Lipid Ord30 TRIG 144 mg/dL 05/11/2016 Lipid Ord30 LDL 201 mg/dL 05/11/2016 Lipid Ord30 C/HDL 5.3 Ratio 05/11/2016 C-Reactive Protein Qnt Crqnt CRP 0.5 mg/dl 12/18/2015 Vitamin D 25 Oh Iiw9689 VITAMIN D, 25 HYDROXY 84.50 ng/mL 12/18/2015 Comp Metabolic Aex684 NA 139 mEq/L 12/18/2015 Comp Metabolic Agi633 K 3.8 mEq/L 12/18/2015 Comp Metabolic Ryk307 CL 103 mEq/L 12/18/2015 Comp Metabolic Jqm609 CO2 31.0 mEq/L 12/18/2015 Comp Metabolic Hbf726 ANION GAP 9 12/18/2015 Comp Metabolic Fdp354 GLUCOSE 107 mg/dL 12/18/2015 Comp Metabolic Rri635 Creat 0.8 mg/dL 12/18/2015 Comp Metabolic Hdc022 eGFR 80 ml/min/1.73m2 12/18/2015 Comp Metabolic Ded088 BUN 19 mg/dL 12/18/2015 Comp Metabolic Swu023 B/C Ratio 25.0 Ratio 12/18/2015 Comp Metabolic Dfr539 CALCIUM 9.1 mg/dL 12/18/2015 Comp Metabolic Nrb727 ALK PHOS 42 U/L 12/18/2015 Comp Metabolic Sic687 AST(SGOT) 17 U/L 12/18/2015 Comp Metabolic Vwp014 ALT(SGPT) 18 U/L 12/18/2015 Comp Metabolic Ovc589 BILI T 0.3 mg/dL 12/18/2015 Comp Metabolic Itv643 ALBUMIN 3.8 g/dL 12/18/2015 Comp Metabolic Isc357 TPRO 5.9 g/dL 12/18/2015 Comp Metabolic Sie325 GLOB 2.1 g/dL 12/18/2015 Comp Metabolic Qkf362 A/G Ratio 1.8 Ratio 12/18/2015 Comp Metabolic Idw798 Osmo 280 mOsmo 12/18/2015 Sed Rate Ord21 [...] 32.0 pg 12/18/2015 Cbc With Differential Ord2 Heard% 9.3 % 12/18/2015 Cbc With Differential Ord2 [...] 1.45 K/ul 12/18/2015 Cbc With Differential Ord2 Heard ABS# 0.5 K/ul 12/18/2015 Cbc With Differential [...] 31.6 pg 09/02/2015 Cbc With Differential Ord2 Heard% 8.8 % 09/02/2015 Cbc With Differential Ord2 Eos% 1.4 % 09/02/2015 Cbc With Differential Ord2 MCHC 32.6 pg 09/02/2015 Cbc With Differential Ord2 Baso% 0.3 % 09/02/2015 Cbc With Differential Ord2 PLT 271 K/ul 09/02/2015 Cbc With Differential Ord2 RDW 13.9 % 09/02/2015 Cbc With Differential Ord2 Neut ABS# 3.76 K/ul 09/02/2015 Cbc With Differential Ord2 Lymph ABS# 1.53 K/ul 09/02/2015 Cbc With Differential Ord2 Heard ABS# 0.5 K/ul 09/02/2015 Cbc With Differential Ord2 Eos ABS# 0.1 K/ul 09/02/2015 Cbc With Differential Ord2 Baso ABS# 0.0 K/ul 09/02/2015 Cbc With Differential Ord2 New Analyzer Notice Please note new ref ranges starting 08-14-2015 due to implemntation of new five part differential hematolgy analyzer. 09/02/2015 Tsh Ord6 hTSH II 1.41 uIU/mL 09/02/2015 Comp Metabolic Thz454 NA 136 mEq/L 09/02/2015 Comp Metabolic Run387 K 4.5 mEq/L 09/02/2015 Comp Metabolic Hxs333 CL 103 mEq/L 09/02/2015 Comp Metabolic Zxm895 CO2 27.0 mEq/L 09/02/2015 Comp Metabolic Vka011 ANION GAP 11 09/02/2015 Comp Metabolic Tbj082 GLUCOSE 109 mg/dL 09/02/2015 Comp Metabolic Wsp156 Creat 1.0 mg/dL 09/02/2015 Comp Metabolic Pkc583 eGFR 62 ml/min/1.73m2 09/02/2015 Comp Metabolic Uay815 BUN 21 mg/dL 09/02/2015 Comp Metabolic Sba670 B/C Ratio 22.1 Ratio 09/02/2015 Comp Metabolic Mee667 CALCIUM 9.3 mg/dL 09/02/2015 Comp Metabolic Whg804 ALK PHOS 37 U/L 09/02/2015 Comp Metabolic Ksc581 AST(SGOT) 19 U/L 09/02/2015 Comp Metabolic Xxj524 ALT(SGPT) 16 U/L 09/02/2015 Comp Metabolic Qsx522 BILI T 0.4 mg/dL 09/02/2015 Comp Metabolic Cxz543 ALBUMIN 4.1 g/dL 09/02/2015 Comp Metabolic Ecw070 TPRO 6.3 g/dL 09/02/2015 Comp Metabolic Uai085 GLOB 2.2 g/dL 09/02/2015 Comp Metabolic Ysp269 A/G Ratio 1.8 Ratio 09/02/2015 Comp Metabolic Inz489 Osmo 276 mOsmo 09/02/2015 A1C HPLC 9261880 A1C HPLC 04710-0 5.6 % 07/23/2014 VIT D TOTL 4464769 VIT D TOTL 52 NG/ML 07/20/2013 GFR CALC 8793827 GFR AA >60 ML/MIN 07/20/2013 GFR CALC 0658810 GFR NON-AA >60 ML/MIN 07/20/2013 CBC [id number] WBC 5.9 10e9/L 07/20/2013 CBC [id number] RBC 4.79 10e12/L 07/20/2013 CBC 0114775 HGB 15.5 g/dL 07/20/2013 CBC [id number] HCT DET 46.1 % 07/20/2013 CBC [id number] MCV 96.2 fL 07/20/2013 CBC 1487876 MCH 32.4 pg 07/20/2013 CBC 5013501 MCHC 33.6 g/dL 07/20/2013 CBC 0177336 PLT 286 10e9/L 07/20/2013 CBC [id number] MPV 10.8 fL 07/20/2013 CBC [id number] ERINN % 66.1 % 07/20/2013 CBC 6047109 LY % 24.3 % 07/20/2013 CBC 1556867 MON % 8.1 % 07/20/2013 CBC 8566072 EOS % 1.2 % 07/20/2013 CBC 7872502 BASO % 0.3 % 07/20/2013 CBC 2487484 RDW 12.7 % 07/20/2013 CBC 9574802 ABS ERINN 3.90 10e9/L 07/20/2013 CBC 8710457 ABS LYMPH 1.43 10e9/L 07/20/2013 CBC 6624258 ABS MONO 0.48 10e9/L 07/20/2013 CBC 7153203 ABS EOS 0.07 10e9/L 07/20/2013 CBC 6045990 ABS BASO 0.02 10e9/L 07/20/2013 CBC 0808197 RDW-SD 44.1 fL 07/20/2013 A1C HPLC 8261447 A1C HPLC 34844-4 5.9 % 07/20/2013 LIPID GRP HDL TEST 54 MG/DL 07/20/2013 LIPID GRP TRIG 98 MG/DL 07/20/2013 LIPID GRP TEST LDL 95 MG/DL 07/20/2013 LIPID GRP CHOL 169 MG/DL 07/20/2013 LIPID GRP RCHOL/HDL 3.13 RATIO 07/20/2013 TSH [id number] TSH 1.032 uIU/ML 07/20/2013 CHEM 14 0839698 AST 18 U/L 07/20/2013 CHEM 14 0891863 ALT 13 IU/L 07/20/2013 CHEM 14 8584596 BUN 19 MG/DL 07/20/2013 CHEM 14 6492343 ALBUMIN 4.5 GM/DL 07/20/2013 CHEM 14 2797209 CHLORIDE 105 MMOL/L 07/20/2013 CHEM 14 0075539 BILI TOT 0.5 MG/DL 07/20/2013 CHEM 14 7937132 ALK PHOS 40 U/L 07/20/2013 CHEM 14 0952034 SODIUM 137 MMOL/L 07/20/2013 CHEM 14 0742381 CREATININE 0.76 MG/DL 07/20/2013 CHEM 14 3314408 CALCIUM 10.0 MG/DL 07/20/2013 CHEM 14 [id number] POTASSIUM 4.6 MMOL/L 07/20/2013 CHEM 14 [id number] PROT TOT 6.5 GM/DL 07/20/2013 CHEM 14 [id number] GLUCOSE 118 MG/DL 07/20/2013 CHEM 14 [id number] BICARB 26 MMOL/L 07/20/2013 CHEM 14 [id number] ANION GAP 6 MEQ/L 07/20/2013 VIT B 12 [id number] VIT B 12 492 PG/ML 07/20/2013 Review [...] Exam - General 1995 Eyes conjunctiva/eyelids Overall: eyelids normal 08/21/2013 None Full Exam - General 1994 Eyes pupils and irises Overall: pupils equal, round, reactive to light and accomodation 08/21/2013 None Full Exam - General 1994 Respiratory auscultation Overall: breath sounds clear bilaterally 08/21/2013 None Full Exam - General 1995 Respiratory respiratory effort/rhythm Overall: no retractions 08/21/2013 [...] SUBSEQ VISIT CPT- 4: G0439 12/03/2017 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 3-[address]: 726490614 CPT-4: G0436 09/08/2016 ADMIN INFLUENZA VIRUS VAC CPT-4: G0008 05/11/2016 PNEUMOCOCCAL VACC 13 SAULO IM Formatting Model/CDA Sections, Assigned to/Rafia Cuadra SNOMED CT: 33457373 CPT-4: 82566Jxmoyjb 05/11/2016 ADMIN PNEUMOCOCCAL VACCINE SNOMED CT: 97774223 CPT-4: G0009 05/11/2016 FLU VACC 4 SAULO 3 YRS PLUS IM Formatting Model/CDA Sections, Assigned to/Rafia Cuadra SNOMED CT: 71889559 CPT-4: 48153Pylphwh 05/11/2016 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 3-[address]: 691292932 CPT-4: G0436 02/10/2016 TRIAMCINOLONE ACET INJ NOS CPT-4: J3301 12/16/2015 DRAIN/INJECT JOINT/BURSA CPT-4: 41511 12/16/2015 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 3-[address]: 286681582 CPT-4: G0436 12/09/2015 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 3-[address]: 285596132 CPT-4: G0436 10/28/2015 THER/PROPH/DIAG INJ SC/IM CPT-4: 11882 11/12/2014 TRIAMCINOLONE ACET INJ NOS CPT-4: J3301 11/12/2014 ROCEPHIN, PER 250 MG CPT- 4: J0696 11/12/2014 ROUTINE VENIPUNCTURE CPT- 4: 48807 07/23/2014 URINALYSIS NONAUTO W/O SCOPE CPT-4: 21458 03/21/2014 ROUTINE VENIPUNCTURE CPT- 4: 37120 07/20/2013 PRESCRIP TRANSMIT VIA ERX SY CPT-4: G8553 07/20/2013 PRESCRIP TRANSMIT VIA ERX SY CPT-4: G8553 06/22/2013 PARTIAL REMOVAL OF LUNG CPT-4: 45768 Unknown Vital Signs Date Vital 09/19/2018 Blood Pressure 1: 140/70 Code: 8480-6 BMI: 31.6 Code: 00484-3 Heart Rate 1: 72 bpm Height: 5'5" SpO2: 96% Weight: 190 lbs 06/16/2018 Blood Pressure 1: 146/84 Code: 8480-6 BMI: 30.6 Code: 30156-0 Heart Rate 1: 68 bpm Height: 5'5" SpO2: 99% Weight: 184 lbs 03/25/2018 Blood Pressure 1: 144/80 Code: 8480-6 BMI: 30.0 Code: 84080-4 Heart Rate 1: 65 bpm Height: 5'5" SpO2: 98% Weight: 180 lbs 12/03/2017 Blood Pressure 1: 142/86 Code: 8480-6 BMI: 29.5 Code: 44554-2 Heart Rate 1: 74 bpm Height: 5'5" SpO2: 93% Weight: 177 lbs 11/25/2017 Blood Pressure 1: 142/84 Code: 8480-6 BMI: 29.5 Code: 06402-9 Heart Rate 1: 69 bpm Height: 5'5" SpO2: 99% Weight: 177 lbs 07/09/2017 Blood Pressure 1: 142/68 Code: 8480-6 BMI: 28.3 Code: 61525-4 Heart Rate 1: 48 bpm Height: 5'5" SpO2: 97% Weight: 170 lbs 04/29/2017 Blood Pressure 1: 148/86 Code: 8480-6 BMI: 28.6 Code: 13606-9 Heart Rate 1: 71 bpm Height: 5'5" SpO2: 95% Weight: 172 lbs 01/07/2017 Blood Pressure 1: 140/70 Code: 8480-6 BMI: 28.8 Code: 12517-3 Heart Rate 1: 68 bpm Height: 5'5" SpO2: 96% Weight: 173 lbs 09/08/2016 Blood Pressure 1: 134/70 Code: 8480-6 BMI: 29.1 Code: 93744-7 Heart Rate 1: 68 bpm Height: 5'5" SpO2: 99% Weight: 175 lbs 05/11/2016 Blood Pressure 1: 138/88 Code: 8480-6 BMI: 29.2 Code: 37637-5 Heart Rate 1: 67 bpm Height: 5'6" SpO2: 95% Weight: 178 lbs 02/10/2016 Blood Pressure 1: 148/82 Code: 8480-6 BMI: 28.8 Code: 51214-1 Heart Rate 1: 63 bpm Height: 5'6" SpO2: 97% Weight: 176 lbs 12/18/2015 Blood Pressure 1: 130/78 Code: 8480-6 BMI: 28.8 Code: 49046-2 Heart Rate 1: 66 bpm Height: 5'6" SpO2: 98% Weight: 176 lbs 12/16/2015 Blood Pressure 1: 162/100 Code: 8480-6 BMI: 28.8 Code: 73764-4 Heart Rate 1: 65 bpm Height: 5'6" SpO2: 98% Weight: 176 lbs 12/09/2015 Blood Pressure 1: 142/70 Code: 8480-6 BMI: 28.4 Code: 20068-6 Heart Rate 1: 65 bpm Height: 5'6" SpO2: 96% Weight: 173 lbs 10/28/2015 Blood Pressure 1: 140/86 Code: 8480-6 Blood Pressure 1: 160/82 Code: 8480-6 BMI: 28.5 Code: 81564-3 Heart Rate 1: 60 bpm Height: 5'6" SpO2: 96% Weight: 174 lbs 08/26/2015 Blood Pressure 1: 148/88 Code: 8480-6 Blood Pressure 1: 158/80 Code: 8480-6 BMI: 28.0 Code: 76082-2 Heart Rate 1: 68 bpm Height: 5'6" SpO2: 98% Weight: 171 lbs 02/12/2015 Blood Pressure 1: 136/74 Code: 8480-6 BMI: 25.9 Code: 07474-3 Heart Rate 1: 61 bpm Height: 5'6" SpO2: 97% Weight: 158 lbs 11/12/2014 Blood Pressure 1: 140/82 Code: 8480-6 BMI: 25.9 Code: 18174-6 Heart Rate 1: 64 bpm Height: 5'6" SpO2: 97% Weight: 158 lbs 07/23/2014 Blood Pressure 1: 138/88 Code: 8480-6 BMI: 25.6 Code: 20764-9 Heart Rate 1: 57 bpm Height: 5'6" SpO2: 95% Weight: 156 lbs 03/21/2014 Blood Pressure 1: 124/64 Code: 8480-6 Heart Rate 1: 64 bpm Weight: 147 lbs 01/25/2014 Blood Pressure 1: 130/70 Code: 8480-6 BMI: 24.4 Code: 33291-0 Height: 5'6" Weight: 149 lbs 10/23/2013 Blood Pressure 1: 152/82 Code: 8480-6 BMI: 25.7 Code: 84225-8 Heart Rate 1: 60 bpm Height: 5'6" Weight: 157 lbs 08/21/2013 Blood Pressure 1: 142/90 Code: 8480-6 BMI: 25.9 Code: 27446-6 Heart Rate 1: 56 bpm Height: 5'6" Weight: 158 lbs 07/20/2013 Blood Pressure 1: 164/80 Code: 8480-6 BMI: 26.2 Code: 30372-3 Heart Rate 1: 60 bpm Height: 5'6" SpO2: 98% Weight: 160 lbs 06/22/2013 Blood Pressure 1: 140/84 Code: 8480-6 BMI: 28.2 Code: 14421-2 Heart Rate 1: 60 bpm Height: 5'6" [...] data Encounters Encounter Performer Location Codes Date ([id number]) 86365 EST. PATIENT, LEVEL IV Diagnosis: Essential (primary) hypertension[ICD10: I10] Diagnosis: Peripheral vascular disease, unspecified[ICD10: I73.9] Diagnosis: Rash and other nonspecific skin eruption[ICD10: R21] Diagnosis: Impaired fasting glucose[ICD10: R73.01] Marily Gonzalez MD, [facility] CPT-4: 41400 09/19/2018 ([id number]) 44655 EST. PATIENT, LEVEL IV Diagnosis: Malignant neoplasm of upper lobe, left bronchus or lung[ICD10: C34.12] Diagnosis: Solitary pulmonary nodule[ICD10: R91.1] Diagnosis: Essential (primary) hypertension[ICD10: I10] Diagnosis: Low back pain[ICD10: M54.5] Diagnosis: Tobacco use[ICD10: Z72.0] [facility] CPT-4: 53191 06/16/2018 [id number]) 14319 EST. PATIENT, LEVEL IV Diagnosis: Essential (primary) hypertension[ICD10: I10] Diagnosis: Major depressive disorder, recurrent, moderate[ICD10: F33.1] Diagnosis: Low back pain[ICD10: M54.5] Diagnosis: Rash and other nonspecific skin eruption[ICD10: R21] Marily Gonzalez MD, [facility] CPT-4: 28000 03/25/2018 ([id number]) 32501 EST. PATIENT, LEVEL IV Diagnosis: Essential (primary) hypertension[ICD10: I10] Diagnosis: Mixed hyperlipidemia[ICD10: E78.2] Diagnosis: Malignant neoplasm of upper lobe, left bronchus or lung[ICD10: C34.12] Diagnosis: Impaired fasting glucose[ICD10: R73.01] Diagnosis: Cervicalgia[ICD10: M54.2] Diagnosis: Low back pain[ICD10: M54.5] Marily Gonzalez MD, [facility] CPT-4: 44573 11/25/2017 ([id number]) 08553 EST. PATIENT, LEVEL III Diagnosis: Essential (primary) hypertension[ICD10: I10] Marily Gonzalez MD, [facility] CPT-4: 33502 07/09/2017 ([id number]) 76304 EST. PATIENT, LEVEL III Diagnosis: Gas pain[ICD10: R14.1] Diagnosis: Rash and other nonspecific skin eruption[ICD10: R21] Marily Gonzalez MD, [facility] CPT-4: 65383 04/29/2017 ([id number]) 77834 EST. PATIENT, LEVEL III Diagnosis: Essential (primary) hypertension[ICD10: I10] Diagnosis: Malignant neoplasm of upper lobe, left bronchus or lung[ICD10: C34.12] Diagnosis: Chronic obstructive pulmonary disease, unspecified[ICD10: J44.9] Marily Gonzalez MD, [facility] CPT-4: 68077 01/07/2017 ([id number]) 96648 EST. PATIENT, LEVEL IV Diagnosis: Essential (primary) hypertension[ICD10: I10] Diagnosis: Mixed hyperlipidemia[ICD10: E78.2] Diagnosis: Tobacco use[ICD10: Z72.0] Diagnosis: Malignant neoplasm of upper lobe, left bronchus or lung[ICD10: C34.12] Marily Gonzalez MD, [facility] CPT-4: 78903 09/08/2016 ([id number]) 91326 EST. PATIENT, LEVEL IV Diagnosis: Essential (primary) hypertension[ICD10: I10] Diagnosis: Mixed hyperlipidemia[ICD10: E78.2] Diagnosis: Generalized anxiety disorder[ICD10: F41.1] Diagnosis: Other specified disorders of bone density and structure, multiple sites[ICD10: M85.89] Marily Gonzalez MD, [facility] CPT-4: 01177 05/11/2016 ([id number]) 35263 EST. PATIENT, LEVEL IV Diagnosis: Essential (primary) hypertension[ICD10: I10] Diagnosis: Generalized anxiety disorder[ICD10: F41.1] Diagnosis: Tobacco use[ICD10: Z72.0] Marily Gonzalez MD, [facility] CPT-4: 16395 02/10/2016 [id number] EST. PATIENT, LEVEL IV Diagnosis: Myalgia[ICD10: M79.1] Diagnosis: Low back pain[ICD10: M54.5] Joy Gonzalez MD, [facility] CPT-4: 94348 12/18/2015 64544 EST. PATIENT, LEVEL IV Diagnosis: Low back pain[ICD10: M54.5] Diagnosis: Pain in right hip[ICD10: M25.551] Joy Gonzalez MD, [facility] CPT-4: 83494 12/16/2015 ([id number]) 28994 EST. PATIENT, LEVEL IV Diagnosis: Low back pain[ICD10: M54.5] Diagnosis: Malignant neoplasm of upper lobe, left bronchus or lung[ICD10: C34.12] Diagnosis: Tobacco use[ICD10: Z72.0] Diagnosis: Essential (primary) hypertension[ICD10: I10] Diagnosis: Generalized anxiety disorder[ICD10: F41.1] Marily Gonzalez MD, [facility] CPT-4: 73815 12/09/2015 ([id number]) 24030 EST. PATIENT, LEVEL IV Diagnosis: Essential (primary) hypertension[ICD10: I10] Diagnosis: Tobacco use[ICD10: Z72.0] Diagnosis: Solitary pulmonary nodule[ICD10: R91.1] Marily Gonzalez MD, [facility] CPT-4: 19472 10/28/2015 ([id number]) 78887 EST. PATIENT, LEVEL IV Diagnosis: Essential (primary) hypertension[ICD10: I10] Diagnosis: Bilateral primary osteoarthritis of hip[ICD10: M16.0] Diagnosis: Solitary pulmonary nodule[ICD10: R91.1] Marily Gonzalez MD, [facility] CPT-4: 08448 08/26/2015 ([id number]) 63767 EST. PATIENT, LEVEL IV Diagnosis: ESSENTIAL HYPERTENSION[ICD9: 401.9] Diagnosis: Pulmonary nodule[ICD9: 793.11] Teresa Gonzalez MD, [facility] CPT-4: 66168 02/12/2015 ([id number]) 89071 EST. PATIENT, LEVEL III Diagnosis: ACUTE BRONCHITIS[ICD9: 466.0] Diagnosis: ALLERGIC RHINITIS[ICD9: 477.9] Teresa Gonzalez MD, [facility] CPT-4: 87932 11/12/2014 ([id number]) 02270 EST. PATIENT, LEVEL IV Diagnosis: ESOPHAGEAL REFLUX[ICD9: 530.81] Diagnosis: ESSENTIAL HYPERTENSION[ICD9: 401.9] Diagnosis: Elevated blood sugar[ICD9: 790.29] Marily Gonzalez MD, [facility] CPT- 4: 44918 07/23/2014 ([id number]) 43523 EST. PATIENT, LEVEL III Diagnosis: Vaginal yeast infection[ICD9: 112.1] Diagnosis: Vaginal burning[ICD9: 625.8] Diagnosis: History of UTI[ICD9: V13.02] Diagnosis: Dysuria[ICD9: 788.1] Marily Gonzalez MD, [facility] CPT-4: 35240 03/21/2014 ([id number]) 52466 EST. PATIENT, LEVEL III Diagnosis: ESSENTIAL HYPERTENSION[ICD9: 401.9] Marily Gonzalez MD, [facility] CPT-4: 19602 01/25/2014 ([id number]) 17113 EST. PATIENT, LEVEL III Diagnosis: ESSENTIAL HYPERTENSION[SNOMED: 43217102] Diagnosis: ESOPHAGEAL REFLUX[ICD9: 530.81] Teresa Gonzalez MD, [facility] CPT-4: 85977 10/23/2013 ([id number]) 23011 EST. PATIENT, LEVEL IV Diagnosis: ESOPHAGEAL REFLUX[ICD9: 530.81] Diagnosis: ESSENTIAL HYPERTENSION[SNOMED: 44729115] Diagnosis: Rash[ICD9: 782.1] [facility] CPT-4: 02309 08/21/2013 ([id number]) 50533 EST. PATIENT, LEVEL IV Diagnosis: Muscle ache of extremity[ICD9: 729.1] Diagnosis: Tingling in extremities[ICD9: 782.0] Diagnosis: ESSENTIAL HYPERTENSION[SNOMED: 32669804] Diagnosis: GERD (gastroesophageal reflux disease)[ICD9: 530.81] Diagnosis: Elevated blood sugar[ICD9: 790.29] [facility] CPT- 4: 62889 07/20/2013 OFFICE VISIT, NEW - LEVEL 3 Diagnosis: ESSENTIAL HYPERTENSION[SNOMED: 67197117] Diagnosis: Tobacco use[ICD9: 305.1] Diagnosis: Depression[ICD9: 311] [facility] CPT-4: 79088 06/22/2013 ([id number]) BEHAV CHNG SMOKING 3-10 MIN Diagnosis: [ICD9: ] [facility] CPT-4: 81567 06/22/2013 Plan of Care Planned Activity Notes [...] -check TA 09/19/2018 Appointment: Marily Valerio WPtel: [phone] (30 min) Complex 09/19/2018 Patient Education: Patient Medication Summary Completed 09/19/2018 App[facility]ment[facility] [phone] [phone] (15 min) Moderate 09/16/2018 Patient Education: Patient Medication Summary Completed 06/27/2018 Visit Plan: Lung nodule -right lung -on surveillance -patient also has history of left lung cancer with lobectomy -does not want to go to for oncology -wants to see Dr Mata at [facility] in [place] -will send referral Lumbar radiculopathy -rx for gabapentin provided and instructed on use - recommend patient return to Dr Herrera to discussed epidural injections HTN-controlled- no changes Tobacco use-patient continues to smoke and is not interested in quitting -smoking cessation encouraged 06/16/2018 Appointment: [facility]el[facility] [phone] [phone] (30 min) Complex 06/16/2018 Patient Education: Patient [...] Valerio WPtel: [phone] (15 min) Moderate 03/25/2018 Patient Education: Patient [...] vs PT 11/25/2017 Appointment: Marily Valerio WPtel: [address] [place], [place] [phone] (15 min) Moderate 11/25/2017 Patient Education: Patient Medication Summary Completed 11/25/2017 Care Plan: X-RAY EXAM L-S SPINE 2/3 VWS LOINC : 06183-8 Pending 11/25/2017 Care Plan: X-RAY EXAM NECK SPINE 2-3 VW LOINC : 16576-7 Pending 11/25/2017 Appointment: Marily Valerio WPtel: [phone] (15 min) Moderate 11/02/2017 Visit Plan: [...] Dr Ryan 07/09/2017 Appointment: Marily Valerio WPtel: [phone] (15 min) Moderate 07/09/2017 Patient Education: Patient Medication Summary Completed 07/09/2017 Patient Education: Smoking and Tobacco Addiction Completed 07/09/2017 Appointment: Marily Valerio WPtel: [phone] (15 min) Moderate 07/08/2017 Visit Plan: Gas and bloating-cut out dairy x 2 weeks-increase gas x to TID-call if symptoms uncontrolled Rash-rx for nystatin powder provided-keep clean/dry-call if does not resolve or if any worse 04/29/2017 Appointment: Marily Valerio WPtel: [phone] (15 min) Moderate 04/29/2017 Patient Education: Patient [...] Valerio WPtel: [phone] (15 min) Moderate 01/07/2017 Patient Education: Patient Medication Summary Completed 01/07/2017 Patient Education: Smoking and Tobacco Addiction Completed 01/07/2017 Patient Education: Hypertension Completed 01/07/2017 Appointment: Marily Valerio WPtel: [phone] [phone] (30 min) Complex 01/05/2017 Visit Plan: [...] in 09/08/2016 Appointment: [facility] [phone] [phone] (15 min) Moderate 09/08/2016 Patient Education: Patient [...] Valerio WPtel[phone] [place] (15 min) Moderate 05/11/2016 Patient Education: Patient [...] MRI LUMBAR SPINE W/O DYE LOINC : 78444-6 Cancelled 01/17/2016 Visit Plan: Continued Low back [...] worsen. 12/18/2015 Appointment: Marily Valerio WPtel: [phone] [phone] (30 min) Complex 12/18/2015 Patient Education: [...] they worsen. 12/16/2015 Appointment: [facility]el[facility] [phone] [facility] (15 min) Moderate 12/16/2015 Patient Education: Patient [...] to have left upper lobe removed at -[facility] this to schedule Tobacco use-no cigarettes since [...] blood pressure readings at home. Arthritis of idnr-hkxc-onolo mobic-monitor symptoms-check labs Left lung nodule- most recent scan shows slight increase in size and needs further evaluation- managed by Dr Corea-appt is this 08/26/2015 Appointment: [facility]Ptel[facility] [phone] [phone] [place] (30 min) Complex 08/26/2015 Patient Education: Patient Medication Summary Completed 08/26/2015 Patient Education: Hypertension Completed 08/26/2015 Appointment: Teresa Gonzalez WPtel: [phone] [phone] (15 min) Moderate 08/15/2015 Appointment: Teresa Gonzalez WPtel: [phone] [phone] (15 min) Moderate 08/15/2015 Visit Plan: Hypertension - well controlled - continue with current medications, continue with no added salt diet. Pt has been encouraged to exercise daily. The pt has been advised to call the office if there are any acute concerns about change in blood pressure readings at home. Pulmonary nodule - Recommended repeat CT scan. 02/12/2015 Appointment: Teresa Gonzalez WPtel: [facility] Follow up 02/12/2015 Patient Education: Patient Medication [...] bloating-use dicyclomine prn Elevated blood sugar-check Hgb O0J-qqj back on sweets/carbs 07/23/2014 Appointment: Follow up [...] at home. 01/25/2014 Appointment: [facility]Ptel[facility] [phone] [facility] Follow up 01/25/2014 Patient Education: Patient Medication [...] [place]. 10/23/2013 App[facility]ment: [phone] [facility] Follow up 10/23/2013 Patient Education: [...] worse. 08/21/2013 Appointment: Marily Valerio WPtel: [phone] [phone] Follow up 08/21/2013 Patient Education: Patient [...] with Dr Combs as scheduled Tingling of uzdzlpahgxj-yloqtokr-drbfd labs including vitamin b12 and vitamin d Elevated blood sugar-check hgb a1c 07/20/2013 Appointment: Marily Valerio WPtel: [phone] [phone] Follow up 07/20/2013 Patient Education: Patient [...] date. 06/22/2013 Appointment: Marily Valerio WPtel: [phone] [place] [phone] New Patient 06/22/2013 Patient Education: Patient Medication [...] not resolve or if any worse. 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 Hypertension [...] with Dr Combs as scheduled Tingling of mzlftueoeci-irlilnbx-tcpeu labs including vitamin b12 and vitamin d [...] Intermittent claudication -check TA Dr Mata at [facility] ( or wednesday) gabapentin 100mg at bedtime screening mammogram make an appt with Dr Herrera to discuss epidural injections . Lung nodule -right lung -on surveillance -patient also has history of left lung cancer with lobectomy -does not want to go to for oncology -wants to see Dr Mata at [facility] in [place] -will send referral Lumbar radiculopathy -rx for [...] [facility] Tobacco use-no cigarettes [...] blood pressure readings at home. Arthritis of ntzn-hnxj-ialgu mobic-monitor symptoms-check labs Left lung nodule-most recent [...] bloating-use dicyclomine prn Elevated blood sugar-check Hgb U0Z-gfz back on sweets/carbs . Hypertension - well controlled - continue with current medications, continue with no added salt diet. Pt has been encouraged to exercise daily. The pt has been advised to call the office if there are any acute concerns about change in blood pressure readings at home. Lung cancer-PREM lobectomy 06/2017-followed by OLLIE and Dr Ryan . Gas and bloating-cut out dairy x 2 weeks-increase gas x to TID-call if symptoms uncontrolled Rash-rx for nystatin powder provided-keep clean/dry-call if does not resolve or if any worse . Hypertension - well controlled - continue [...] to use medication to assist cessation. . Medicare Exam - today we discussed [...]
--- OUTSIDE RECORDS SUMMARY | 2019-03-31 09:28 | XMS REPORT | CCD ---
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 Unknown Has never used illegal drugs 06/22/2013 Allergies, Adverse Reactions, Alerts Substance Reaction Codes Entered Date Inactivated Date Status lisinopril cough, RxNorm: 55629 06/22/2013 No Inactive Date Active SULFA (SULFONAMIDE [...] Start Date Stop Date Status Fill Instructions Lyrica 50 mg capsule RxNorm: 189779 1 Capsule(s) PO BID 09/27/2018 12/25/2018 Active Lyrica 50 mg capsule RxNorm: 897118 1 Capsule(s) PO BID 09/27/2018 09/26/2018 Inactive nystatin 100,000 unit/gram topical cream RxNorm: 521226 1 Application TOP BID 09/19/2018 10/02/2018 Active mix with betamethasone Diovan 320 mg tablet RxNorm: 003060 1 Tablet(s) PO daily 09/19/2018 03/17/2019 Active dicyclomine 20 mg tablet RxNorm: 432867 1 Tablet(s) PO TID PRN TAKE ONE CAPSULE BY MOUTH THREE TIMES A DAY NEEDED 09/19/2018 09/02/2021 Active betamethasone dipropionate 0.05 % topical cream RxNorm: 305914 1 Application TOP BID 09/19/2018 10/02/2018 Active metoprolol tartrate 100 mg tablet RxNorm: 307893 1 Tablet(s) PO BID TAKE ONE TABLET BY MOUTH TWICE A DAY 09/19/2018 06/15/2019 Active dicyclomine 10 mg capsule RxNorm: 479225 1 Capsule(s) PO TID PRN TAKE ONE CAPSULE BY MOUTH THREE TIMES A DAY NEEDED 09/19/2018 09/18/2018 Inactive gabapentin 100 mg capsule RxNorm: 798305 1 Capsule(s) PO UD 06/16/2018 07/15/2018 Inactive 1 po q HS x 1 week then 2 po q HS x 1 week then increase to 3 q HS nystatin 100,000 unit/gram topical cream RxNorm: 716419 1 Application TOP BID 06/16/2018 06/29/2018 Inactive amlodipine 10 mg tablet RxNorm: 946483 TAKE ONE TABLET BY MOUTH EVERY DAY 05/26/2018 11/21/2018 Active Lipitor 10 mg tablet RxNorm: 911854 Tablet(s) TAKE ONE TABLET BY MOUTH EVERY OTHER DAY 05/25/2018 02/18/2019 Active Lexapro 20 mg tablet RxNorm: 305909 1 Tablet(s) PO QPM 03/25/2018 09/20/2018 Inactive nystatin 100,000 unit/gram topical cream RxNorm: 576249 1 Application TOP BID 03/25/2018 04/07/2018 Inactive olmesartan 40 mg tablet RxNorm: 628471 1 Tablet(s) PO daily 03/25/2018 09/18/2018 Inactive Lipitor 10 mg tablet RxNorm: 023444 TAKE ONE TABLET BY MOUTH EVERY OTHER DAY 03/18/2018 12/11/2018 Active Diovan 320 mg tablet RxNorm: 643410 TAKE ONE TABLET BY MOUTH DAILY 03/18/2018 03/24/2018 Inactive metoprolol tartrate 100 mg tablet RxNorm: 379805 TAKE ONE TABLET BY MOUTH TWICE A DAY 01/05/2018 09/18/2018 Inactive Diovan 320 mg tablet RxNorm: 893630 TAKE ONE TABLET BY MOUTH EVERY DAY 12/16/2017 03/17/2018 Inactive Lexapro 10 mg tablet RxNorm: 602554 1 Tablet(s) PO QPM 11/25/2017 03/24/2018 Inactive amlodipine 10 mg tablet RxNorm: 935273 TAKE ONE TABLET BY MOUTH EVERY DAY 11/15/2017 05/13/2018 Inactive Lipitor 10 mg tablet RxNorm: 480718 TAKE ONE TABLET BY MOUTH EVERY OTHER DAY 10/18/2017 03/17/2018 Inactive dicyclomine 10 mg capsule RxNorm: 381470 TAKE ONE CAPSULE BY MOUTH THREE TIMES A DAY NEEDED 08/12/2017 09/18/2018 Inactive Lipitor 10 mg tablet RxNorm: 764820 TAKE ONE TABLET BY MOUTH EVERY OTHER DAY 07/12/2017 10/17/2017 Inactive Diovan 320 mg tablet RxNorm: 111089 TAKE ONE TABLET BY MOUTH EVERY DAY 06/09/2017 12/05/2017 Inactive dicyclomine 10 mg capsule RxNorm: 707350 TAKE ONE CAPSULE BY MOUTH THREE TIMES A DAY NEEDED 05/05/2017 08/02/2017 Inactive nystatin 100,000 unit/gram topical powder RxNorm: 059475 1 Application TOP BID 04/29/2017 05/08/2017 Inactive Diovan 320 mg tablet RxNorm: 141656 TAKE ONE TABLET BY MOUTH EVERY DAY 03/10/2017 06/07/2017 Inactive dicyclomine 10 mg capsule RxNorm: 802562 TAKE ONE CAPSULE BY MOUTH THREE TIMES A DAY NEEDED 02/04/2017 05/04/2017 Inactive amlodipine 10 mg tablet RxNorm: 089573 TAKE ONE TABLET BY MOUTH EVERY DAY 02/04/2017 10/31/2017 Inactive Lipitor 10 mg tablet RxNorm: 103221 TAKE ONE TABLET BY MOUTH EVERY OTHER DAY 02/04/2017 07/11/2017 Inactive Fish Oil 1,000 mg capsule RxNorm: 1 Capsule(s) PO TID 01/07/2017 No Stop Date Active metoprolol tartrate 100 mg tablet RxNorm: 761992 1 Tablet(s) PO BID TAKE ONE TABLET BY MOUTH TWICE A DAY 01/07/2017 01/01/2018 Inactive Diovan 320 mg tablet RxNorm: 967122 TAKE ONE TABLET BY MOUTH EVERY DAY 11/05/2016 03/04/2017 Inactive Lipitor 10 mg tablet RxNorm: 044211 1 Tablet(s) PO every other day 09/08/2016 01/05/2017 Inactive dc livalo dicyclomine 10 mg capsule RxNorm: 260141 TAKE ONE CAPSULE BY MOUTH THREE TIMES A DAY NEEDED 07/30/2016 01/25/2017 Inactive Diovan 320 mg tablet RxNorm: 495310 TAKE ONE TABLET BY MOUTH EVERY DAY 06/15/2016 11/04/2016 Inactive Lipitor 10 mg tablet RxNorm: 211689 1 Tablet(s) PO every other day 05/25/2016 05/24/2016 Inactive dc livalo Lipitor 10 mg tablet RxNorm: 016618 1 Tablet(s) PO every other day 05/25/2016 09/07/2016 Inactive dc livalo Livalo 2 mg tablet RxNorm: 489542 1 Tablet(s) PO daily 05/20/2016 05/19/2016 Inactive Livalo 2 mg tablet RxNorm: 980749 1 Tablet(s) PO daily 05/20/2016 05/24/2016 Inactive Celexa 10 mg tablet RxNorm: 708640 1 Tablet(s) PO daily 02/10/2016 11/24/2017 Inactive amlodipine 10 mg tablet RxNorm: 714966 TAKE ONE TABLET BY MOUTH EVERY DAY 02/03/2016 02/02/2016 Inactive amlodipine 10 mg tablet RxNorm: 368412 TAKE ONE TABLET BY MOUTH EVERY DAY 02/03/2016 01/27/2017 Inactive amlodipine 10 mg tablet RxNorm: 570886 TAKE ONE TABLET BY MOUTH EVERY DAY 02/03/2016 04/27/2017 Inactive metoprolol tartrate 100 mg tablet RxNorm: 841671 TAKE ONE TABLET BY MOUTH TWICE A DAY 2016 01/06/2017 Inactive Diovan 320 mg tablet RxNorm: 128150 TAKE ONE TABLET BY MOUTH EVERY DAY 12/19/2015 06/14/2016 Inactive Wellbutrin XL 150 mg 24 hr tablet, extended release RxNorm: 675913 1 Tablet(s) PO daily 12/09/2015 02/09/2016 Inactive tramadol 50 mg tablet RxNorm: 662279 1-2 Tablet(s) PO Q6 PRN 12/09/2015 11/24/2017 Inactive Mobic 7.5 mg tablet RxNorm: 271691 TAKE ONE TABLET BY MOUTH DAILY 11/11/2015 11/24/2017 Inactive dicyclomine 10 mg capsule RxNorm: 853551 TAKE ONE CAPSULE BY MOUTH THREE TIMES A DAY NEEDED 11/11/2015 07/29/2016 Inactive Wellbutrin 75 mg tablet RxNorm: 352175 1 Tablet(s) PO BID 10/28/2015 12/08/2015 Inactive simvastatin 20 mg tablet RxNorm: 953186 TAKE ONE TABLET BY MOUTH EVERY DAY 09/05/2015 2016 Inactive Mobic 7.5 mg tablet RxNorm: 185911 1 Tablet(s) PO daily 08/26/2015 11/10/2015 Inactive estradiol 0.5 mg tablet RxNorm: 813948 TAKE ONE TABLET BY MOUTH EVERY DAY 06/11/2015 03/06/2016 Inactive amlodipine 10 mg tablet RxNorm: 488028 TAKE ONE TABLET BY MOUTH EVERY DAY 04/19/2015 01/13/2016 Inactive dicyclomine 10 mg capsule RxNorm: 238633 TAKE ONE CAPSULE BY MOUTH THREE TIMES A DAY NEEDED 04/19/2015 10/15/2015 Inactive simvastatin 20 mg tablet RxNorm: 655900 TAKE ONE TABLET BY MOUTH EVERY DAY 02/21/2015 08/19/2015 Inactive Diovan 320 mg tablet RxNorm: 869812 TAKE ONE TABLET BY MOUTH EVERY DAY 12/19/2014 12/18/2015 Inactive cephalexin 500 mg capsule RxNorm: 916737 1 Capsule(s) PO TID 11/13/2014 11/19/2014 Inactive prednisone 10 mg tablet RxNorm: 367377 3 Tablet(s) PO daily 11/13/2014 11/17/2014 Inactive prednisone 10 mg tablet RxNorm: 299197 3 Tablet(s) PO daily 11/12/2014 11/12/2014 Inactive Kenalog 40 mg/mL suspension for injection RxNorm: 6935056 Milliliter(s) Inj 11/12/2014 11/12/2014 Inactive cephalexin 500 mg capsule RxNorm: 962495 1 Capsule(s) PO TID 11/12/2014 11/12/2014 Inactive ceftriaxone 500 mg solution for injection RxNorm: 1232961 Inj 11/12/2014 11/12/2014 Inactive dicyclomine 10 mg capsule RxNorm: 962616 TAKE ONE CAPSULE BY MOUTH THREE TIMES A DAY NEEDED 11/08/2014 04/18/2015 Inactive metoprolol tartrate 100 mg tablet RxNorm: 340135 TAKE ONE TABLET BY MOUTH TWICE A DAY 10/18/2014 2015 Inactive metoprolol tartrate 100 mg tablet RxNorm: 233435 1 Tablet(s) PO BID 10/18/2014 10/12/2015 Inactive simvastatin 20 mg tablet RxNorm: 625544 TAKE ONE TABLET BY MOUTH EVERY DAY 08/21/2014 02/16/2015 Inactive Diovan 320 mg tablet RxNorm: 808442 TAKE ONE TABLET BY MOUTH EVERY DAY 08/21/2014 12/18/2014 Inactive Carafate 1 gram tablet RxNorm: 005503 1 Tablet(s) PO AC & HS MIX WITH 30ML WATER 07/23/2014 11/24/2017 Inactive dissolve in water and drink as slurry dicyclomine 10 mg capsule RxNorm: 298264 1 Capsule(s) PO TID PRN 07/23/2014 10/20/2014 Inactive simvastatin 20 mg tablet RxNorm: 844348 TAKE ONE TABLET BY MOUTH EVERY DAY 06/07/2014 08/20/2014 Inactive estradiol 0.5 mg tablet RxNorm: 473572 TAKE ONE TABLET BY MOUTH EVERY DAY 05/16/2014 05/10/2015 Inactive amlodipine 10 mg tablet RxNorm: 933151 TAKE ONE TABLET BY MOUTH EVERY DAY 05/16/2014 04/18/2015 Inactive Diovan 320 mg tablet RxNorm: 851014 TAKE ONE TABLET BY MOUTH EVERY DAY 03/26/2014 08/20/2014 Inactive Diflucan 150 mg tablet RxNorm: 052190 1 Tablet(s) PO daily 03/21/2014 03/27/2014 Inactive simvastatin 20 mg tablet RxNorm: 549774 TAKE ONE TABLET BY MOUTH EVERY DAY 03/02/2014 05/30/2014 Inactive estradiol 0.5 mg tablet RxNorm: 448114 TAKE ONE TABLET BY MOUTH EVERY DAY 02/16/2014 05/15/2014 Inactive amlodipine 10 mg tablet RxNorm: 632811 TAKE ONE TABLET BY MOUTH EVERY DAY 02/16/2014 05/15/2014 Inactive pantoprazole 40 mg tablet,delayed release RxNorm: 122089 2 Tablet(s) PO daily 01/25/2014 02/23/2014 Inactive simvastatin 20 mg tablet RxNorm: 682865 Tablet(s) PO TAKE ONE TABLET BY MOUTH EVERY DAY 11/30/2013 03/01/2014 Inactive amlodipine 10 mg tablet RxNorm: 013848 Tablet(s) PO TAKE ONE TABLET BY MOUTH EVERY DAY 11/16/2013 02/15/2014 Inactive metoprolol tartrate 100 mg tablet RxNorm: 312549 1 Tablet(s) PO BID 10/23/2013 10/17/2014 Inactive Diovan 320 mg tablet RxNorm: 070388 Tablet(s) PO TAKE ONE TABLET BY MOUTH EVERY DAY 09/28/2013 03/25/2014 Inactive Carafate 1 gram tablet RxNorm: 767252 1 Tablet(s) PO TID MIX WITH 30ML WATER 09/20/2013 12/18/2013 Inactive estradiol 0.5 mg tablet RxNorm: 708842 1 Tablet(s) PO daily 08/21/2013 02/15/2014 Inactive amlodipine 10 mg tablet RxNorm: 006794 1 Tablet(s) PO daily 08/21/2013 11/15/2013 Inactive simvastatin 20 mg tablet RxNorm: 381546 1 Tablet(s) PO daily 08/21/2013 11/18/2013 Inactive Diovan 320 mg tablet RxNorm: 568807 1 Tablet(s) PO daily 08/21/2013 09/19/2013 Inactive Carafate 1 gram tablet RxNorm: 973182 1 Tablet(s) PO TID MIX WITH 30ML WATER 08/21/2013 09/19/2013 Inactive Diovan 320 mg tablet RxNorm: 523691 1 Tablet(s) PO daily 07/20/2013 08/18/2013 Inactive amlodipine 10 mg tablet RxNorm: 463748 1 Tablet(s) PO daily 07/20/2013 08/18/2013 Inactive estradiol 0.5 mg tablet RxNorm: 991897 1 Tablet(s) PO daily 07/20/2013 08/18/2013 Inactive metoprolol tartrate 100 mg tablet RxNorm: 484748 1 Tablet(s) PO BID 06/22/2013 10/22/2013 Inactive Wellbutrin XL 150 mg 24 hr tablet, extended release RxNorm: 821253 1 Tablet(s) PO daily 06/22/2013 07/19/2013 Inactive pantoprazole 40 mg tablet,delayed release RxNorm: 982936 1 Tablet(s) PO daily No Start Date Active calcium 500 mg tablet RxNorm: 2 Tablet(s) PO BID No Start Date Active glucosamine and uipanxdikwy-lazsqjiu-ihva#3 oral RxNorm: 2837 oral No Start Date Active multivitamin tablet RxNorm: 1 Tablet(s) PO daily No Start Date Active aspirin 81 mg tablet RxNorm: 426059 1 Tablet(s) PO daily No Start Date Active Probiotic oral RxNorm: oral No Start Date Active Vitamin D3 1,000 unit capsule RxNorm: 979654 1 Capsule(s) PO daily No Start Date Active Eliquis 5 mg tablet RxNorm: 9660325 1 Tablet(s) PO BID No Start Date Active simvastatin 20 mg tablet RxNorm: 097013 1 Tablet(s) PO daily No Start Date 08/20/2013 Inactive hyoscyamine 0.125 mg sublingual tablet RxNorm: 0419641 1 Tablet(s) SL TID No Start Date 07/22/2014 Inactive metoprolol tartrate 100 mg tablet RxNorm: 881116 1 Tablet(s) PO daily No Start Date 06/21/2013 Inactive amlodipine 10 mg tablet RxNorm: 690508 1 Tablet(s) PO daily No Start Date 07/19/2013 Inactive Diovan 320 mg tablet RxNorm: 165225 1 Tablet(s) PO daily No Start Date 07/19/2013 Inactive Fish Oil 1,000 mg capsule RxNorm: 1 Capsule(s) PO BID No Start Date 01/06/2017 Inactive omeprazole 20 mg tablet,delayed release RxNorm: 110675 1 Tablet(s) PO daily No Start Date 01/25/2014 Inactive estradiol 0.5 mg tablet RxNorm: 880048 1 Tablet(s) PO daily No Start Date 07/19/2013 Inactive Medication Administered Medication Codes Instructions Start Date Status Kenalog 40 mg/mL suspension for injection RxNorm: 9622078 Milliliter 11/12/2014 No longer Active ceftriaxone 500 mg solution for injection RxNorm: 6940937 11/12/2014 No longer Active Immunizations Vaccine Codes Date Status Influenza CVX: 141 05/11/2016 completed Pneumococcal (Adult) CVX: 133 05/11/2016 completed Influenza CVX: 141 08/13/2013 completed Assessments Condition Codes Effective Dates Rash and other nonspecific skin eruption ICD-10: R21 ICD-9: 782.1 09/19/2018 Peripheral vascular disease, unspecified ICD-10: I73.9 ICD-9: 443.9 09/19/2018 Essential (primary) hypertension ICD-10: I10 ICD-9: 401.1 09/19/2018 Impaired fasting glucose ICD-10: R73.01 ICD-9: 790.21 09/19/2018 Encounter for screening mammogram for malignant neoplasm of breast ICD-10: Z12.31 ICD-9: V76.12 06/27/2018 Low back pain ICD-10: M54.5 ICD-9: 724.2 06/16/2018 Tobacco use ICD-10: Z72.0 ICD-9: 305.1 06/16/2018 Solitary pulmonary nodule ICD-10: R91.1 ICD-9: 793.11 06/16/2018 Malignant neoplasm of upper lobe, left [...] (primary) hypertension ICD-10: I10 ICD-9: 401.9 01/07/2017 Generalized anxiety disorder ICD-10: F41.1 ICD-9: [...] 02/12/2015 Other screening mammogram ICD-9: V76.12 01/07/2015 Tobacco use ICD-9: 305.1 11/12/2014 ACUTE BRONCHITIS ICD-9: 466.0 11/12/2014 ALLERGIC RHINITIS ICD-9: 477.9 11/12/2014 Cough ICD-9: 786.2 11/12/2014 Elevated blood sugar ICD-9: 790.29 07/23/2014 ESOPHAGEAL REFLUX ICD-9: 530.81 07/23/2014 Vaginal burning ICD-9: 625.8 03/21/2014 Vaginal yeast infection ICD-9: 112.1 03/21/2014 History of UTI ICD-9: V13.02 03/21/2014 Dysuria ICD-9: 788.1 03/21/2014 Rash ICD-9: 782.1 08/21/2013 Muscle ache of extremity ICD-9: 729.1 07/20/2013 Tingling in extremities ICD-9: 782.0 07/20/2013 Depression ICD-9: 311 06/22/2013 Reason For [...] Observation Code Item Item Code Result Date Tsh Ord6 TSH (3rd IS) 1.06 uIU/mL 11/25/2017 Lipid Ord30 CHOL 180 mg/dL 11/25/2017 Lipid Ord30 HDL 52.0 mg/dl 11/25/2017 Lipid Ord30 TRIG 115 mg/dL 11/25/2017 Lipid Ord30 LDL 105 mg/dL 11/25/2017 Lipid Ord30 C/HDL 3.5 Ratio 11/25/2017 Cbc With Differential Ord2 WBC 5.43 [...] 31.1 pg 11/25/2017 Cbc With Differential Ord2 Ida% 11.2 % 11/25/2017 Cbc With Differential Ord2 MCHC 31.9 pg 11/25/2017 Cbc With Differential Ord2 Eos% 2.2 % 11/25/2017 Cbc With Differential Ord2 Baso% 0.4 % 11/25/2017 Cbc With Differential Ord2 PLT 351 K/ul 11/25/2017 Cbc With Differential Ord2 Neut ABS# 2.65 K/ul 11/25/2017 Cbc With Differential Ord2 RDW 14.1 % 11/25/2017 Cbc With Differential Ord2 Lymph ABS# 2.03 K/ul 11/25/2017 Cbc With Differential Ord2 Ida ABS# 0.6 K/ul 11/25/2017 Cbc With Differential Ord2 Eos ABS# 0.1 K/ul 11/25/2017 Cbc With Differential Ord2 Baso ABS# 0.0 K/ul 11/25/2017 Comp Metabolic Jec706 NA 141 mEq/L 11/25/2017 Comp Metabolic Jnn166 K 4.2 mEq/L 11/25/2017 Comp Metabolic Ppl832 CL 103 mEq/L 11/25/2017 Comp Metabolic Jwj156 CO2 31.0 mEq/L 11/25/2017 Comp Metabolic Xit072 ANION GAP 11 11/25/2017 Comp Metabolic Osb359 GLUCOSE 117 mg/dL 11/25/2017 Comp Metabolic Hqu507 Creat 0.8 mg/dL 11/25/2017 Comp Metabolic Ciy902 eGFR 74 ml/min/1.73m2 11/25/2017 Comp Metabolic Pqc953 BUN 18 mg/dL 11/25/2017 Comp Metabolic Sey078 B/C Ratio 22.2 Ratio 11/25/2017 Comp Metabolic Rre509 CALCIUM 9.4 mg/dL 11/25/2017 Comp Metabolic Hco923 ALK PHOS 62 U/L 11/25/2017 Comp Metabolic Wtm044 AST(SGOT) 21 U/L 11/25/2017 Comp Metabolic Gwv631 ALT(SGPT) 18 U/L 11/25/2017 Comp Metabolic Gbi198 BILI T 0.4 mg/dL 11/25/2017 Comp Metabolic Iad180 ALBUMIN 4.0 g/dL 11/25/2017 Comp Metabolic Nfx604 TPRO 6.1 g/dL 11/25/2017 Comp Metabolic Xfn013 GLOB 2.1 g/dL 11/25/2017 Comp Metabolic Enp259 A/G Ratio 1.9 Ratio 11/25/2017 Comp Metabolic Dat610 Osmo 284 mOsmo 11/25/2017 %Hba1C Fgv323 % HbA1c 67373- 6 5.7 % 11/25/2017 %Hba1C Egq034 Gluc Ave 117 mg/dL 11/25/2017 Lipid Ord30 CHOL 283 mg/dL 05/11/2016 Lipid Ord30 HDL 53.0 mg/dl 05/11/2016 Lipid Ord30 TRIG 144 mg/dL 05/11/2016 Lipid Ord30 LDL 201 mg/dL 05/11/2016 Lipid Ord30 C/HDL 5.3 Ratio 05/11/2016 Tsh Ord6 hTSH II 0.96 uIU/mL 05/11/2016 Comp Metabolic Jwq813 NA 139 mEq/L 05/11/2016 Comp Metabolic Pbf470 K 4.6 mEq/L 05/11/2016 Comp Metabolic Tjx996 CL 104 mEq/L 05/11/2016 Comp Metabolic Lid798 CO2 30.0 mEq/L 05/11/2016 Comp Metabolic Sif472 ANION GAP 10 05/11/2016 Comp Metabolic Rrb906 GLUCOSE 113 mg/dL 05/11/2016 Comp Metabolic Mvu179 Creat 0.8 mg/dL 05/11/2016 Comp Metabolic Est032 eGFR 74 ml/min/1.73m2 05/11/2016 Comp Metabolic Vho258 BUN 16 mg/dL 05/11/2016 Comp Metabolic Dyp284 B/C Ratio 19.8 Ratio 05/11/2016 Comp Metabolic Juv673 CALCIUM 10.1 mg/dL 05/11/2016 Comp Metabolic Koa392 ALK PHOS 44 U/L 05/11/2016 Comp Metabolic Mfw016 AST(SGOT) 20 U/L 05/11/2016 Comp Metabolic Bbq820 ALT(SGPT) 17 U/L 05/11/2016 Comp Metabolic Xjn748 BILI T 0.4 mg/dL 05/11/2016 Comp Metabolic Dnw679 ALBUMIN 4.1 g/dL 05/11/2016 Comp Metabolic Ppi648 TPRO 6.5 g/dL 05/11/2016 Comp Metabolic Dal333 GLOB 2.4 g/dL 05/11/2016 Comp Metabolic Qdm370 A/G Ratio 1.8 Ratio 05/11/2016 Comp Metabolic Plh286 Osmo 280 mOsmo 05/11/2016 Cbc With Differential Ord2 WBC 4.62 K/ul 05/11/2016 Cbc With Differential Ord2 RBC 4.69 M/ul 05/11/2016 Cbc With Differential Ord2 HGB 14.9 g/dl 05/11/2016 Cbc With Differential Ord2 Neut% 49.9 % 05/11/2016 Cbc With Differential Ord2 HCT 45.9 % 05/11/2016 Cbc With Differential Ord2 Lymph% 38.1 % 05/11/2016 Cbc With Differential Ord2 MCV 97.9 fl 05/11/2016 Cbc With Differential Ord2 MCH 31.8 pg 05/11/2016 Cbc With Differential Ord2 Ida% 9.5 % 05/11/2016 Cbc With Differential Ord2 [...] 1.76 K/ul 05/11/2016 Cbc With Differential Ord2 Ida ABS# 0.4 K/ul 05/11/2016 Cbc With Differential Ord2 Eos ABS# 0.1 K/ul 05/11/2016 Cbc With Differential Ord2 Baso ABS# 0.0 K/ul 05/11/2016 C-Reactive Protein Qnt Crqnt CRP 0.5 mg/dl 12/18/2015 Vitamin D 25 Oh Ons5682 VITAMIN D, 25 HYDROXY 84.50 ng/mL 12/18/2015 Sed Rate Ord21 ESR 9 mm/hr 12/18/2015 Comp Metabolic Fpr294 NA 139 mEq/L 12/18/2015 Comp Metabolic Utd971 K 3.8 mEq/L 12/18/2015 Comp Metabolic Wic875 CL 103 mEq/L 12/18/2015 Comp Metabolic Zss062 CO2 31.0 mEq/L 12/18/2015 Comp Metabolic Svm053 ANION GAP 9 12/18/2015 Comp Metabolic Hlw461 GLUCOSE 107 mg/dL 12/18/2015 Comp Metabolic Dpn227 Creat 0.8 mg/dL 12/18/2015 Comp Metabolic Efi193 eGFR 80 ml/min/1.73m2 12/18/2015 Comp Metabolic Rop142 BUN 19 mg/dL 12/18/2015 Comp Metabolic Hqb310 B/C Ratio 25.0 Ratio 12/18/2015 Comp Metabolic Fza200 CALCIUM 9.1 mg/dL 12/18/2015 Comp Metabolic Apf137 ALK PHOS 42 U/L 12/18/2015 Comp Metabolic Cvu791 AST(SGOT) 17 U/L 12/18/2015 Comp Metabolic Qvp165 ALT(SGPT) 18 U/L 12/18/2015 Comp Metabolic Jqa565 BILI T 0.3 mg/dL 12/18/2015 Comp Metabolic Iwi207 ALBUMIN 3.8 g/dL 12/18/2015 Comp Metabolic Tkp830 TPRO 5.9 g/dL 12/18/2015 Comp Metabolic Tpn570 GLOB 2.1 g/dL 12/18/2015 Comp Metabolic Bvu072 A/G Ratio 1.8 Ratio 12/18/2015 Comp Metabolic Zwl013 Osmo 280 mOsmo 12/18/2015 Cbc With Differential Ord2 WBC 5.49 [...] 32.0 pg 12/18/2015 Cbc With Differential Ord2 Ida% 9.3 % 12/18/2015 Cbc With Differential Ord2 [...] 1.45 K/ul 12/18/2015 Cbc With Differential Ord2 Ida ABS# 0.5 K/ul 12/18/2015 Cbc With Differential [...] 25.9 % 09/02/2015 Cbc With Differential Ord2 Ida% 8.8 % 09/02/2015 Cbc With Differential Ord2 MCH 31.6 pg 09/02/2015 Cbc With Differential Ord2 MCHC 32.6 pg 09/02/2015 Cbc With Differential Ord2 Eos% 1.4 % 09/02/2015 Cbc With Differential Ord2 PLT 271 K/ul 09/02/2015 Cbc With Differential Ord2 Baso% 0.3 % 09/02/2015 Cbc With Differential Ord2 Neut ABS# 3.76 K/ul 09/02/2015 Cbc With Differential Ord2 RDW 13.9 % 09/02/2015 Cbc With Differential Ord2 Lymph ABS# 1.53 K/ul 09/02/2015 Cbc With Differential Ord2 Ida ABS# 0.5 K/ul 09/02/2015 Cbc With Differential Ord2 Eos ABS# 0.1 K/ul 09/02/2015 Cbc With Differential Ord2 Baso ABS# 0.0 K/ul 09/02/2015 Cbc With Differential Ord2 New Analyzer Notice Please note new ref ranges starting 08-14-2015 due to implemntation of new five part differential hematolgy analyzer. 09/02/2015 Tsh Ord6 hTSH II 1.41 uIU/mL 09/02/2015 Comp Metabolic Xip375 NA 136 mEq/L 09/02/2015 Comp Metabolic Efe153 K 4.5 mEq/L 09/02/2015 Comp Metabolic Wrf147 CL 103 mEq/L 09/02/2015 Comp Metabolic Bce302 CO2 27.0 mEq/L 09/02/2015 Comp Metabolic Zcf400 ANION GAP 11 09/02/2015 Comp Metabolic Pnw268 GLUCOSE 109 mg/dL 09/02/2015 Comp Metabolic Vrb396 Creat 1.0 mg/dL 09/02/2015 Comp Metabolic Qap345 eGFR 62 ml/min/1.73m2 09/02/2015 Comp Metabolic Rov465 BUN 21 mg/dL 09/02/2015 Comp Metabolic Lmq268 B/C Ratio 22.1 Ratio 09/02/2015 Comp Metabolic Vve322 CALCIUM 9.3 mg/dL 09/02/2015 Comp Metabolic Hrk924 ALK PHOS 37 U/L 09/02/2015 Comp Metabolic Aya209 AST(SGOT) 19 U/L 09/02/2015 Comp Metabolic Reu154 ALT(SGPT) 16 U/L 09/02/2015 Comp Metabolic Rcw837 BILI T 0.4 mg/dL 09/02/2015 Comp Metabolic Ihs651 ALBUMIN 4.1 g/dL 09/02/2015 Comp Metabolic Prr159 TPRO 6.3 g/dL 09/02/2015 Comp Metabolic Hds240 GLOB 2.2 g/dL 09/02/2015 Comp Metabolic Cpe680 A/G Ratio 1.8 Ratio 09/02/2015 Comp Metabolic Fjq081 Osmo 276 mOsmo 09/02/2015 A1C HPLC 1160080 A1C HPLC 57794-1 5.6 % 07/23/2014 A1C HPLC 0495001 A1C HPLC 11081-5 5.9 % 07/20/2013 CHEM 14 6875349 AST 18 U/L 07/20/2013 CHEM 14 8435492 ALT 13 IU/L 07/20/2013 CHEM 14 0651186 BUN 19 MG/DL 07/20/2013 CHEM 14 1259976 ALBUMIN 4.5 GM/DL 07/20/2013 CHEM 14 8442647 CHLORIDE 105 MMOL/L 07/20/2013 CHEM 14 1595381 BILI TOT 0.5 MG/DL 07/20/2013 CHEM 14 1657922 ALK PHOS 40 U/L 07/20/2013 CHEM 14 0728566 SODIUM 137 MMOL/L 07/20/2013 CHEM 14 8918314 CREATININE 0.76 MG/DL 07/20/2013 CHEM 14 7993630 CALCIUM 10.0 MG/DL 07/20/2013 CHEM 14 4274898 POTASSIUM 4.6 MMOL/L 07/20/2013 CHEM 14 0588957 PROT TOT 6.5 GM/DL 07/20/2013 CHEM 14 9588963 GLUCOSE 118 MG/DL 07/20/2013 CHEM 14 9623191 BICARB 26 MMOL/L 07/20/2013 CHEM 14 6859971 ANION GAP 6 MEQ/L 07/20/2013 VIT B 12 5548507 VIT B 12 492 PG/ML 07/20/2013 TSH 8010291 TSH 1.032 uIU/ML 07/20/2013 LIPID GRP HDL TEST 54 MG/DL 07/20/2013 LIPID GRP TRIG 98 MG/DL 07/20/2013 LIPID GRP TEST LDL 95 MG/DL 07/20/2013 LIPID GRP CHOL 169 MG/DL 07/20/2013 LIPID GRP RCHOL/HDL 3.13 RATIO 07/20/2013 CBC 4148355 WBC 5.9 10e9/L 07/20/2013 CBC 7851320 RBC 4.79 10e12/L 07/20/2013 CBC 9513784 HGB 15.5 g/dL 07/20/2013 CBC 7590363 HCT DET 46.1 % 07/20/2013 CBC 1080301 MCV 96.2 fL 07/20/2013 CBC 3165774 MCH 32.4 pg 07/20/2013 CBC 1791481 MCHC 33.6 g/dL 07/20/2013 CBC 9008837 PLT 286 10e9/L 07/20/2013 CBC 5136430 MPV 10.8 fL 07/20/2013 CBC 4930966 ERINN % 66.1 % 07/20/2013 CBC 1108327 LY % 24.3 % 07/20/2013 CBC 6431778 MON % 8.1 % 07/20/2013 CBC 4501104 EOS % 1.2 % 07/20/2013 CBC 8082605 BASO % 0.3 % 07/20/2013 CBC 1948788 RDW 12.7 % 07/20/2013 CBC 8941221 ABS ERINN 3.90 10e9/L 07/20/2013 CBC 0659382 ABS LYMPH 1.43 10e9/L 07/20/2013 CBC 1477891 ABS MONO 0.48 10e9/L 07/20/2013 CBC 3136638 ABS EOS 0.07 10e9/L 07/20/2013 CBC 0664291 ABS BASO 0.02 10e9/L 07/20/2013 CBC 8059920 RDW-SD 44.1 fL 07/20/2013 GFR CALC 4981194 GFR AA >60 ML/MIN 07/20/2013 GFR CALC 2358984 GFR NON-AA >60 ML/MIN 07/20/2013 VIT D TOTL 0934404 VIT D TOTL 52 NG/ML 07/20/2013 Review of Systems System Result Effective [...] SUBSEQ VISIT CPT- 4: G0439 12/03/2017 TOBACCO-USE H[employer] AND BLENDER 3-[address]: [id number] CPT-4: G0436 09/08/2016 ADMIN INFLUENZA VIRUS VAC CPT-4: G0008 05/11/2016 PNEUMOCOCCAL VACC 13 SAULO IM Formatting Model/CDA Sections, Assigned to/Rafia Cuadra SNOMED CT: 32909118 CPT-4: 00155Vlbkywy 05/11/2016 ADMIN PNEUMOCOCCAL VACCINE SNOMED CT: 22596832 CPT-4: G0009 05/11/2016 FLU VACC 4 SAULO 3 YRS PLUS IM Formatting Model/CDA Sections, Assigned to/Rafia Cuadra SNOMED CT: 57241436 CPT-4: 58363Hogbpvw 05/11/2016 TOBACCO-USE HONEY GRADER AND BLENDER 3-[address]: 453416446 CPT-4: G0436 02/10/2016 TRIAMCINOLONE ACET INJ NOS CPT-4: J3301 12/16/2015 DRAIN/INJECT JOINT/BURSA CPT-4: 87467 12/16/2015 TOBACCO-USE HONEY GRADER AND BLENDER 3-[address]: 703295110 CPT-4: G0436 12/09/2015 TOBACCO-USE HONEY GRADER AND BLENDER 3-[address]: 076222200 CPT-4: G0436 10/28/2015 THER/PROPH/DIAG INJ SC/IM CPT-4: 21741 11/12/2014 TRIAMCINOLONE ACET INJ NOS CPT-4: J3301 11/12/2014 ROCEPHIN, PER 250 MG CPT- 4: J0696 11/12/2014 ROUTINE VENIPUNCTURE CPT- 4: 91915 07/23/2014 URINALYSIS NONAUTO W/O SCOPE CPT-4: 48364 03/21/2014 ROUTINE VENIPUNCTURE CPT- 4: 35781 07/20/2013 PRESCRIP TRANSMIT VIA ERX SY CPT-4: G8553 07/20/2013 PRESCRIP TRANSMIT VIA ERX SY CPT-4: G8553 06/22/2013 PARTIAL REMOVAL OF LUNG CPT-4: 70693 Unknown Vital Signs Date Vital 09/19/2018 Blood Pressure 1: 140/70 Code: 8480-6 BMI: 31.6 Code: 40723-3 Heart Rate 1: 72 bpm Height: 5'5" SpO2: 96% Weight: 190 lbs 06/16/2018 Blood Pressure 1: 146/84 Code: 8480-6 BMI: 30.6 Code: 96328-5 Heart Rate 1: 68 bpm Height: 5'5" SpO2: 99% Weight: 184 lbs 03/25/2018 Blood Pressure 1: 144/80 Code: 8480-6 BMI: 30.0 Code: 14071-5 Heart Rate 1: 65 bpm Height: 5'5" SpO2: 98% Weight: 180 lbs 12/03/2017 Blood Pressure 1: 142/86 Code: 8480-6 BMI: 29.5 Code: 62144-0 Heart Rate 1: 74 bpm Height: 5'5" SpO2: 93% Weight: 177 lbs 11/25/2017 Blood Pressure 1: 142/84 Code: 8480-6 BMI: 29.5 Code: 34876-3 Heart Rate 1: 69 bpm Height: 5'5" SpO2: 99% Weight: 177 lbs 07/09/2017 Blood Pressure 1: 142/68 Code: 8480-6 BMI: 28.3 Code: 76755-3 Heart Rate 1: 48 bpm Height: 5'5" SpO2: 97% Weight: 170 lbs 04/29/2017 Blood Pressure 1: 148/86 Code: 8480-6 BMI: 28.6 Code: 26991-7 Heart Rate 1: 71 bpm Height: 5'5" SpO2: 95% Weight: 172 lbs 01/07/2017 Blood Pressure 1: 140/70 Code: 8480-6 BMI: 28.8 Code: 74105-7 Heart Rate 1: 68 bpm Height: 5'5" SpO2: 96% Weight: 173 lbs 09/08/2016 Blood Pressure 1: 134/70 Code: 8480-6 BMI: 29.1 Code: 69293-6 Heart Rate 1: 68 bpm Height: 5'5" SpO2: 99% Weight: 175 lbs 05/11/2016 Blood Pressure 1: 138/88 Code: 8480-6 BMI: 29.2 Code: 85220-2 Heart Rate 1: 67 bpm Height: 5'6" SpO2: 95% Weight: 178 lbs 02/10/2016 Blood Pressure 1: 148/82 Code: 8480-6 BMI: 28.8 Code: 98023-1 Heart Rate 1: 63 bpm Height: 5'6" SpO2: 97% Weight: 176 lbs 12/18/2015 Blood Pressure 1: 130/78 Code: 8480-6 BMI: 28.8 Code: 75167-3 Heart Rate 1: 66 bpm Height: 5'6" SpO2: 98% Weight: 176 lbs 12/16/2015 Blood Pressure 1: 162/100 Code: 8480-6 BMI: 28.8 Code: 60644-3 Heart Rate 1: 65 bpm Height: 5'6" SpO2: 98% Weight: 176 lbs 12/09/2015 Blood Pressure 1: 142/70 Code: 8480-6 BMI: 28.4 Code: 86800-7 Heart Rate 1: 65 bpm Height: 5'6" SpO2: 96% Weight: 173 lbs 10/28/2015 Blood Pressure 1: 160/82 Code: 8480-6 Blood Pressure 1: 140/86 Code: 8480-6 BMI: 28.5 Code: 70589-1 Heart Rate 1: 60 bpm Height: 5'6" SpO2: 96% Weight: 174 lbs 08/26/2015 Blood Pressure 1: 158/80 Code: 8480-6 Blood Pressure 1: 148/88 Code: 8480-6 BMI: 28.0 Code: 18242-0 Heart Rate 1: 68 bpm Height: 5'6" SpO2: 98% Weight: 171 lbs 02/12/2015 Blood Pressure 1: 136/74 Code: 8480-6 BMI: 25.9 Code: 20934-2 Heart Rate 1: 61 bpm Height: 5'6" SpO2: 97% Weight: 158 lbs 11/12/2014 Blood Pressure 1: 140/82 Code: 8480-6 BMI: 25.9 Code: 41254-1 Heart Rate 1: 64 bpm Height: 5'6" SpO2: 97% Weight: 158 lbs 07/23/2014 Blood Pressure 1: 138/88 Code: 8480-6 BMI: 25.6 Code: 84768-9 Heart Rate 1: 57 bpm Height: 5'6" SpO2: 95% Weight: 156 lbs 03/21/2014 Blood Pressure 1: 124/64 Code: 8480-6 Heart Rate 1: 64 bpm Weight: 147 lbs 01/25/2014 Blood Pressure 1: 130/70 Code: 8480-6 BMI: 24.4 Code: 28192-2 Height: 5'6" Weight: 149 lbs 10/23/2013 Blood Pressure 1: 152/82 Code: 8480-6 BMI: 25.7 Code: 96219-2 Heart Rate 1: 60 bpm Height: 5'6" Weight: 157 lbs 08/21/2013 Blood Pressure 1: 142/90 Code: 8480-6 BMI: 25.9 Code: 48904-7 Heart Rate 1: 56 bpm Height: 5'6" Weight: 158 lbs 07/20/2013 Blood Pressure 1: 164/80 Code: 8480-6 BMI: 26.2 Code: 50010-1 Heart Rate 1: 60 bpm Height: 5'6" SpO2: 98% Weight: 160 lbs 06/22/2013 Blood Pressure 1: 140/84 Code: 8480-6 BMI: 28.2 Code: 66597-6 Heart Rate 1: 60 bpm Height: 5'6" [...] data Encounters Encounter Performer Location Codes Date ([id number]) [id number] EST. PATIENT, LEVEL IV Diagnosis: Essential (primary) hypertension[ICD10: I10] Diagnosis: Peripheral vascular disease, unspecified[ICD10: I73.9] Diagnosis: Rash and other nonspecific skin eruption[ICD10: R21] Diagnosis: Impaired fasting glucose[ICD10: R73.01] Marily Gonzalez MD, [facility] CPT-4: 59362 09/19/2018 [id number]) 04840 EST. PATIENT, LEVEL IV Diagnosis: Malignant neoplasm of upper lobe, left bronchus or lung[ICD10: C34.12] Diagnosis: Solitary pulmonary nodule[ICD10: R91.1] Diagnosis: Essential (primary) hypertension[ICD10: I10] Diagnosis: Low back pain[ICD10: M54.5] Diagnosis: Tobacco use[ICD10: Z72.0] Marily Gonzalez MD, [facility] CPT-4: 49533 06/16/2018 [id number]) 45036 EST. PATIENT, LEVEL IV Diagnosis: Essential (primary) hypertension[ICD10: I10] Diagnosis: Major depressive disorder, recurrent, moderate[ICD10: F33.1] Diagnosis: Low back pain[ICD10: M54.5] Diagnosis: Rash and other nonspecific skin eruption[ICD10: R21] Marily Gonzalez MD, [facility] CPT-4: 12608 03/25/2018 ([id number]) 78925 EST. PATIENT, LEVEL IV Diagnosis: Essential (primary) hypertension[ICD10: I10] Diagnosis: Mixed hyperlipidemia[ICD10: E78.2] Diagnosis: Malignant neoplasm of upper lobe, left bronchus or lung[ICD10: C34.12] Diagnosis: Impaired fasting glucose[ICD10: R73.01] Diagnosis: Cervicalgia[ICD10: M54.2] Diagnosis: Low back pain[ICD10: M54.5] Marily Gonzalez MD, [facility] CPT-4: 57684 11/25/2017 ([id number]) 29459 EST. PATIENT, LEVEL III Diagnosis: Essential (primary) hypertension[ICD10: I10] Marily Gonzalez MD, [facility] CPT-4: 99500 07/09/2017 ([id number]) 16356 EST. PATIENT, LEVEL III Diagnosis: Gas pain[ICD10: R14.1] Diagnosis: Rash and other nonspecific skin eruption[ICD10: R21] Marily Gonzalez MD, [facility] CPT-4: 76703 04/29/2017 ([id number]) 46415 EST. PATIENT, LEVEL III Diagnosis: Essential (primary) hypertension[ICD10: I10] Diagnosis: Malignant neoplasm of upper lobe, left bronchus or lung[ICD10: C34.12] Diagnosis: Chronic obstructive pulmonary disease, unspecified[ICD10: J44.9] Marily Gonzalez MD, [facility] CPT-4: 24162 01/07/2017 ([id number]) 75238 EST. PATIENT, LEVEL IV Diagnosis: Essential (primary) hypertension[ICD10: I10] Diagnosis: Mixed hyperlipidemia[ICD10: E78.2] Diagnosis: Tobacco use[ICD10: Z72.0] Diagnosis: Malignant neoplasm of upper lobe, left bronchus or lung[ICD10: C34.12] Marily Gonzalez MD, [facility] CPT-4: 28721 09/08/2016 ([id number]) 59890 EST. PATIENT, LEVEL IV Diagnosis: Essential (primary) hypertension[ICD10: I10] Diagnosis: Mixed hyperlipidemia[ICD10: E78.2] Diagnosis: Generalized anxiety disorder[ICD10: F41.1] Diagnosis: Other specified disorders of bone density and structure, multiple sites[ICD10: M85.89] Marily Gonzalez MD, [facility] CPT-4: 70042 05/11/2016 ([id number]) 27617 EST. PATIENT, LEVEL IV Diagnosis: Essential (primary) hypertension[ICD10: I10] Diagnosis: Generalized anxiety disorder[ICD10: F41.1] Diagnosis: Tobacco use[ICD10: Z72.0] Marily Gonzalez MD, [facility] CPT-4: 69484 02/10/2016 14718 EST. PATIENT, LEVEL IV Diagnosis: Myalgia[ICD10: M79.1] Diagnosis: Low back pain[ICD10: M54.5] Joy Gonzalez MD, [facility] CPT-4: 28856 12/18/2015 36462 EST. PATIENT, LEVEL IV Diagnosis: Low back pain[ICD10: M54.5] Diagnosis: Pain in right hip[ICD10: M25.551] Joy Gonzalez MD, [facility] CPT-4: 76779 12/16/2015 ([id number]) 00524 EST. PATIENT, LEVEL IV Diagnosis: Low back pain[ICD10: M54.5] Diagnosis: Malignant neoplasm of upper lobe, left bronchus or lung[ICD10: C34.12] Diagnosis: Tobacco use[ICD10: Z72.0] Diagnosis: Essential (primary) hypertension[ICD10: I10] Diagnosis: Generalized anxiety disorder[ICD10: F41.1] Marily Gonzalez MD, [facility] CPT-4: 00225 12/09/2015 ([id number]) 85867 EST. PATIENT, LEVEL IV Diagnosis: Essential (primary) hypertension[ICD10: I10] Diagnosis: Tobacco use[ICD10: Z72.0] Diagnosis: Solitary pulmonary nodule[ICD10: R91.1] Marily Gonzalez MD, [facility] CPT-4: 62841 10/28/2015 ([id number]) 66983 EST. PATIENT, LEVEL IV Diagnosis: Essential (primary) hypertension[ICD10: I10] Diagnosis: Bilateral primary osteoarthritis of hip[ICD10: M16.0] Diagnosis: Solitary pulmonary nodule[ICD10: R91.1] Marily Gonzalez MD, [facility] CPT-4: 34801 08/26/2015 ([id number]) 28593 EST. PATIENT, LEVEL IV Diagnosis: ESSENTIAL HYPERTENSION[ICD9: 401.9] Diagnosis: Pulmonary nodule[ICD9: 793.11] Teresa Gonzalez MD, [facility] CPT-4: 18863 02/12/2015 ([id number]) 44490 EST. PATIENT, LEVEL III Diagnosis: ACUTE BRONCHITIS[ICD9: 466.0] Diagnosis: ALLERGIC RHINITIS[ICD9: 477.9] Teresa Gonzalez MD, [facility] CPT-4: 12582 11/12/2014 ([id number]) 21609 EST. PATIENT, LEVEL IV Diagnosis: ESOPHAGEAL REFLUX[ICD9: 530.81] Diagnosis: ESSENTIAL HYPERTENSION[ICD9: 401.9] Diagnosis: Elevated blood sugar[ICD9: 790.29] Marily Gonzalez MD, [facility] CPT- 4: 70336 07/23/2014 ([id number]) 67681 EST. PATIENT, LEVEL III Diagnosis: Vaginal yeast infection[ICD9: 112.1] Diagnosis: Vaginal burning[ICD9: 625.8] Diagnosis: History of UTI[ICD9: V13.02] Diagnosis: Dysuria[ICD9: 788.1] Marily Gonzalez MD, [facility] CPT-4: 16001 03/21/2014 ([id number]) 79631 EST. PATIENT, LEVEL III Diagnosis: ESSENTIAL HYPERTENSION[ICD9: 401.9] Marily Gonzalez MD, [facility] CPT-4: 95337 01/25/2014 ([id number]) 57322 EST. PATIENT, LEVEL III Diagnosis: ESSENTIAL HYPERTENSION[SNOMED: 38657436] Diagnosis: ESOPHAGEAL REFLUX[ICD9: 530.81] Teresa Gonzalez MD, [facility] CPT-4: 48707 10/23/2013 ([id number]) 33039 EST. PATIENT, LEVEL IV Diagnosis: ESOPHAGEAL REFLUX[ICD9: 530.81] Diagnosis: ESSENTIAL HYPERTENSION[SNOMED: 16667014] Diagnosis: Rash[ICD9: 782.1] Marily Gonzalez MD, [facility] CPT-4: 11993 08/21/2013 ([id number]) 21986 EST. PATIENT, LEVEL IV Diagnosis: Muscle ache of extremity[ICD9: 729.1] Diagnosis: Tingling in extremities[ICD9: 782.0] Diagnosis: ESSENTIAL HYPERTENSION[SNOMED: 37528670] Diagnosis: GERD (gastroesophageal reflux disease)[ICD9: 530.81] Diagnosis: Elevated blood sugar[ICD9: 790.29] Marily Gonzalez MD, [facility] CPT- 4: 19899 07/20/2013 OFFICE VISIT, NEW - LEVEL 3 Diagnosis: ESSENTIAL HYPERTENSION[SNOMED: 39022260] Diagnosis: Tobacco use[ICD9: 305.1] Diagnosis: Depression[ICD9: 311] Marily Gonzalez MD, [facility] CPT-4: 92268 06/22/2013 ([id number]) BEHAV CHNG SMOKING 3-10 MIN Diagnosis: [ICD9: ] Marily Gonzalez MD, [facility] CPT-4: 35960 06/22/2013 Plan of Care Planned Activity Notes [...] -check TA 09/19/2018 Appointment: Marily Valerio WPtel: [address] [place], [place] [phone] [place] [address] (30 min) Complex 09/19/2018 Patient Education: Patient Medication Summary Completed 09/19/2018 Appointment: Marily Valerio WPtel: [phone] (15 min) Moderate 09/16/2018 Patient Education: Patient Medication Summary Completed 06/27/2018 Visit Plan: Lung nodule -right lung -on surveillance -patient also has history of left lung cancer with lobectomy -does not want to go to for oncology -wants to see Dr Mata at [facility] in [place] -will send referral Lumbar radiculopathy -rx for gabapentin provided and instructed on use - recommend patient return to Dr Herrera to discussed epidural injections HTN-controlled- no changes Tobacco use-patient continues to smoke and is not interested in quitting -smoking cessation encouraged 06/16/2018 Appointment: Marily Valerio WPtel: [phone] [phone] (30 min) Complex 06/16/2018 Patient Education: [...] start PT 03/25/2018 Appointment: [phone] (15 min) Moderate 03/25/2018 Patient Education: Patient [...] vs PT 11/25/2017 Appointment: Marily Valerio WPtel[phone] (15 min) Moderate 11/25/2017 Patient Education: Patient Medication Summary Completed 11/25/2017 Care Plan: X-RAY EXAM L-S SPINE 2/3 VWS LOINC : 81357-5 Pending 11/25/2017 Care Plan: X-RAY EXAM NECK SPINE 2-3 VW LOINC : 16523-1 Pending 11/25/2017 Appointment: [phone] [phone] (15 min) Moderate 11/02/2017 Visit Plan: Hypertension [...] Dr Ryan 07/09/2017 Appointment: Marily Valerio WPtel: [address] [place], [place] [phone] (15 min) Moderate 07/09/2017 Patient Education: Patient Medication Summary Completed 07/09/2017 Patient Education: Smoking and Tobacco Addiction Completed 07/09/2017 Appointment: Marily Valerio WPtel: [address] [place], [place] [phone] (15 min) Moderate 07/08/2017 Visit Plan: Gas and bloating-cut out dairy x 2 weeks-increase gas x to TID-call if symptoms uncontrolled Rash-rx for nystatin powder provided-keep clean/dry-call if does not resolve or if any worse 04/29/2017 Appointment: Marily Valerio WPtel: [address] [place], [place] [phone] (15 min) Moderate 04/29/2017 Patient Education: Patient [...] nicotine patches 01/07/2017 Appointment: Marily Valerio WPtel: [address] [place], [place] [phone] (15 min) Moderate 01/07/2017 Patient Education: Patient Medication Summary Completed 01/07/2017 Patient Education: Smoking and Tobacco Addiction Completed 01/07/2017 Patient Education: Hypertension Completed 01/07/2017 Appointment: Marily Valerio: [phone] (30 min) Complex 01/05/2017 Visit Plan: Hypertension [...] Ryan in 09/08/2016 Appointment: Marily Valerio WPtel[phone] (15 min) Moderate 09/08/2016 Patient Education: Patient [...] bone density 05/11/2016 Appointment: Marily Valerio WPtel: [phone] (15 min) Moderate 05/11/2016 Patient Education: Patient [...] MRI LUMBAR SPINE W/O DYE LOINC : 56689-2 Cancelled 01/17/2016 Visit Plan: Continued Low back [...] they worsen. 12/18/2015 Appointment: Marily Valerio WPtel: [phone] [place] (30 min) Complex 12/18/2015 Patient Education: Patient [...] they worsen. 12/16/2015 Appointment: Joy Flores WPtel: [facility] [place] (15 min) Moderate 12/16/2015 Patient Education: [...] to have left upper lobe removed at -[facility] this to schedule Tobacco use-no cigarettes since [...] blood pressure readings at home. Arthritis of echy-ajjl-ylsso mobic-monitor symptoms-check labs Left lung nodule- most recent scan shows slight increase in size and needs further evaluation- managed by Dr Corea-appt is this 08/26/2015 Appointment: Marily Valerio WPtel: [address] [place] [phone] (30 min) Complex 08/26/2015 Patient Education: Patient Medication Summary Completed 08/26/2015 Patient Education: Hypertension Completed 08/26/2015 Appointment: Teresa Gonzalez WPtel: [phone] [facility] (15 min) Moderate 08/15/2015 Appointment: Teresa Gonzalez WPtel: [phone] [facility] (15 min) Moderate 08/15/2015 Visit Plan: [...] CT scan. 02/12/2015 Appointment: Teresa Gonzalez WPtel: [phone] [facility] Follow up 02/12/2015 Patient Education: [...] bloating-use dicyclomine prn Elevated blood sugar-check Hgb Y9F-ine back on sweets/carbs 07/23/2014 Appointment: Follow up 07/23/2014 Patient Education: Patient Medication Summary Completed 07/23/2014 Patient Education: Hypertension Completed 07/23/2014 Visit Plan: Dysuria-vaginal burning-UA positive for blood and leukocystes today in the office-will send for culture and proceed as indicated. Diflucan sent to patient's pharmacy and instructed on use. Patient verbalized understanding of plan. 03/21/2014 Appointment: Calderon 03/21/2014 Patient Education: Patient Medication Summary Completed 03/21/2014 Visit Plan: Hypertension - well controlled - continue with current medications, continue with no added salt diet. Pt has been encouraged to exercise daily. The pt has been advised to call the office if there are any acute concerns about change in blood pressure readings at home. 01/25/2014 Appointment: Marily Valerio WPtel: [phone] Follow up 01/25/2014 Patient Education: Patient Medication [...] Dr. Mckeon. 10/23/2013 Appointment: Teresa Gonzalez WPtel: [facility] Follow up 10/23/2013 Patient Education: [...] worse. 08/21/2013 Appointment: Marily Valerio WPtel: [phone] [phone] Follow up 08/21/2013 Patient Education: Patient [...] with Dr Combs as scheduled Tingling of lgkvgrvfbha-vmqoqkna-ncjzs labs including vitamin b12 and vitamin d Elevated blood sugar-check hgb a1c 07/20/2013 Appointment: Marily Valerio WPtel: [phone] [phone] Follow up 07/20/2013 Patient Education: Patient [...] quit date. 06/22/2013 Appointment: Marily Valerio WPtel: [phone] [place] New Patient 06/22/2013 Patient Education: Patient [...] start wellbutrin 1 week before quit date. PATIENT IS TO CHECK BLOOD PRESSURE AND [...] blood pressure readings at home. Arthritis of pbfv-jxij-lrhmq mobic-monitor symptoms-check labs Left lung nodule-most recent [...] EGD by Dr. Mckeon. Dr Mata at [facility] ( or wednesday) gabapentin 100mg at bedtime screening mammogram make an appt with Dr Herrera to discuss epidural injections . 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 Hypertension - [...] Pulmonary nodule - Recommended repeat CT scan. check Hbg A1C . Hypertension - well [...] bloating-use dicyclomine prn Elevated blood sugar-check Hgb A2G-blq back on sweets/carbs . Hypertension - well [...]
--- OUTSIDE RECORDS SUMMARY | 2019-03-31 09:32 | XMS REPORT | CCD ---
Author Author Marily Valerio MD, 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 Unknown Has never used illegal drugs 06/22/2013 Allergies, Adverse Reactions, Alerts Substance Reaction Codes Entered Date Inactivated Date Status lisinopril cough, RxNorm: 06853 06/22/2013 No Inactive Date Active SULFA (SULFONAMIDE [...] Start Date Stop Date Status Fill Instructions nystatin 100,000 unit/gram topical cream RxNorm: 687092 1 Application TOP BID 09/19/2018 10/02/2018 Active mix with betamethasone Diovan 320 mg tablet RxNorm: 376301 1 Tablet(s) PO daily 09/19/2018 03/17/2019 Active dicyclomine 20 mg tablet RxNorm: 199441 1 Tablet(s) PO TID PRN TAKE ONE CAPSULE BY MOUTH THREE TIMES A DAY NEEDED 09/19/2018 09/02/2021 Active betamethasone dipropionate 0.05 % topical cream RxNorm: 633465 1 Application TOP BID 09/19/2018 10/02/2018 Active metoprolol tartrate 100 mg tablet RxNorm: 991010 1 Tablet(s) PO BID TAKE ONE TABLET BY MOUTH TWICE A DAY 09/19/2018 06/15/2019 Active dicyclomine 10 mg capsule RxNorm: 755652 1 Capsule(s) PO TID PRN TAKE ONE CAPSULE BY MOUTH THREE TIMES A DAY NEEDED 09/19/2018 09/18/2018 Inactive gabapentin 100 mg capsule RxNorm: 240980 1 Capsule(s) PO UD 06/16/2018 07/15/2018 Inactive 1 po q HS x 1 week then 2 po q HS x 1 week then increase to 3 q HS nystatin 100,000 unit/gram topical cream RxNorm: 479662 1 Application TOP BID 06/16/2018 06/29/2018 Inactive amlodipine 10 mg tablet RxNorm: 316085 TAKE ONE TABLET BY MOUTH EVERY DAY 05/26/2018 11/21/2018 Active Lipitor 10 mg tablet RxNorm: 368220 Tablet(s) TAKE ONE TABLET BY MOUTH EVERY OTHER DAY 05/25/2018 02/18/2019 Active Lexapro 20 mg tablet RxNorm: 328546 1 Tablet(s) PO QPM 03/25/2018 09/20/2018 Inactive nystatin 100,000 unit/gram topical cream RxNorm: 002476 1 Application TOP BID 03/25/2018 04/07/2018 Inactive olmesartan 40 mg tablet RxNorm: 901059 1 Tablet(s) PO daily 03/25/2018 09/18/2018 Inactive Lipitor 10 mg tablet RxNorm: 174437 TAKE ONE TABLET BY MOUTH EVERY OTHER DAY 03/18/2018 12/11/2018 Active Diovan 320 mg tablet RxNorm: 796627 TAKE ONE TABLET BY MOUTH DAILY 03/18/2018 03/24/2018 Inactive metoprolol tartrate 100 mg tablet RxNorm: 483347 TAKE ONE TABLET BY MOUTH TWICE A DAY 01/05/2018 09/18/2018 Inactive Diovan 320 mg tablet RxNorm: 148578 TAKE ONE TABLET BY MOUTH EVERY DAY 12/16/2017 03/17/2018 Inactive Lexapro 10 mg tablet RxNorm: 670691 1 Tablet(s) PO QPM 11/25/2017 03/24/2018 Inactive amlodipine 10 mg tablet RxNorm: 647654 TAKE ONE TABLET BY MOUTH EVERY DAY 11/15/2017 05/13/2018 Inactive Lipitor 10 mg tablet RxNorm: 610310 TAKE ONE TABLET BY MOUTH EVERY OTHER DAY 10/18/2017 03/17/2018 Inactive dicyclomine 10 mg capsule RxNorm: 455001 TAKE ONE CAPSULE BY MOUTH THREE TIMES A DAY NEEDED 08/12/2017 09/18/2018 Inactive Lipitor 10 mg tablet RxNorm: 303446 TAKE ONE TABLET BY MOUTH EVERY OTHER DAY 07/12/2017 10/17/2017 Inactive Diovan 320 mg tablet RxNorm: 768370 TAKE ONE TABLET BY MOUTH EVERY DAY 06/09/2017 12/05/2017 Inactive dicyclomine 10 mg capsule RxNorm: 087464 TAKE ONE CAPSULE BY MOUTH THREE TIMES A DAY NEEDED 05/05/2017 08/02/2017 Inactive nystatin 100,000 unit/gram topical powder RxNorm: 535013 1 Application TOP BID 04/29/2017 05/08/2017 Inactive Diovan 320 mg tablet RxNorm: 464709 TAKE ONE TABLET BY MOUTH EVERY DAY 03/10/2017 06/07/2017 Inactive dicyclomine 10 mg capsule RxNorm: 191403 TAKE ONE CAPSULE BY MOUTH THREE TIMES A DAY NEEDED 02/04/2017 05/04/2017 Inactive amlodipine 10 mg tablet RxNorm: 828250 TAKE ONE TABLET BY MOUTH EVERY DAY 02/04/2017 10/31/2017 Inactive Lipitor 10 mg tablet RxNorm: 234099 TAKE ONE TABLET BY MOUTH EVERY OTHER DAY 02/04/2017 07/11/2017 Inactive Fish Oil 1,000 mg capsule RxNorm: 1 Capsule(s) PO TID 01/07/2017 No Stop Date Active metoprolol tartrate 100 mg tablet RxNorm: 001646 1 Tablet(s) PO BID TAKE ONE TABLET BY MOUTH TWICE A DAY 01/07/2017 01/01/2018 Inactive Diovan 320 mg tablet RxNorm: 229100 TAKE ONE TABLET BY MOUTH EVERY DAY 11/05/2016 03/04/2017 Inactive Lipitor 10 mg tablet RxNorm: 120331 1 Tablet(s) PO every other day 09/08/2016 01/05/2017 Inactive dc livalo dicyclomine 10 mg capsule RxNorm: 951150 TAKE ONE CAPSULE BY MOUTH THREE TIMES A DAY NEEDED 07/30/2016 01/25/2017 Inactive Diovan 320 mg tablet RxNorm: 480729 TAKE ONE TABLET BY MOUTH EVERY DAY 06/15/2016 11/04/2016 Inactive Lipitor 10 mg tablet RxNorm: 837302 1 Tablet(s) PO every other day 05/25/2016 05/24/2016 Inactive dc livalo Lipitor 10 mg tablet RxNorm: 282888 1 Tablet(s) PO every other day 05/25/2016 09/07/2016 Inactive dc livalo Livalo 2 mg tablet RxNorm: 335626 1 Tablet(s) PO daily 05/20/2016 05/19/2016 Inactive Livalo 2 mg tablet RxNorm: 644798 1 Tablet(s) PO daily 05/20/2016 05/24/2016 Inactive Celexa 10 mg tablet RxNorm: 494340 1 Tablet(s) PO daily 02/10/2016 11/24/2017 Inactive amlodipine 10 mg tablet RxNorm: 635991 TAKE ONE TABLET BY MOUTH EVERY DAY 02/03/2016 02/02/2016 Inactive amlodipine 10 mg tablet RxNorm: 371717 TAKE ONE TABLET BY MOUTH EVERY DAY 02/03/2016 01/27/2017 Inactive amlodipine 10 mg tablet RxNorm: 130917 TAKE ONE TABLET BY MOUTH EVERY DAY 02/03/2016 04/27/2017 Inactive metoprolol tartrate 100 mg tablet RxNorm: 832381 TAKE ONE TABLET BY MOUTH TWICE A DAY 2016 01/06/2017 Inactive Diovan 320 mg tablet RxNorm: 637093 TAKE ONE TABLET BY MOUTH EVERY DAY 12/19/2015 06/14/2016 Inactive Wellbutrin XL 150 mg 24 hr tablet, extended release RxNorm: 310951 1 Tablet(s) PO daily 12/09/2015 02/09/2016 Inactive tramadol 50 mg tablet RxNorm: 262262 1-2 Tablet(s) PO Q6 PRN 12/09/2015 11/24/2017 Inactive Mobic 7.5 mg tablet RxNorm: 917788 TAKE ONE TABLET BY MOUTH DAILY 11/11/2015 11/24/2017 Inactive dicyclomine 10 mg capsule RxNorm: 619698 TAKE ONE CAPSULE BY MOUTH THREE TIMES A DAY NEEDED 11/11/2015 07/29/2016 Inactive Wellbutrin 75 mg tablet RxNorm: 839851 1 Tablet(s) PO BID 10/28/2015 12/08/2015 Inactive simvastatin 20 mg tablet RxNorm: 257990 TAKE ONE TABLET BY MOUTH EVERY DAY 09/05/2015 2016 Inactive Mobic 7.5 mg tablet RxNorm: 293613 1 Tablet(s) PO daily 08/26/2015 11/10/2015 Inactive estradiol 0.5 mg tablet RxNorm: 567154 TAKE ONE TABLET BY MOUTH EVERY DAY 06/11/2015 03/06/2016 Inactive amlodipine 10 mg tablet RxNorm: 789453 TAKE ONE TABLET BY MOUTH EVERY DAY 04/19/2015 01/13/2016 Inactive dicyclomine 10 mg capsule RxNorm: 453698 TAKE ONE CAPSULE BY MOUTH THREE TIMES A DAY NEEDED 04/19/2015 10/15/2015 Inactive simvastatin 20 mg tablet RxNorm: 608952 TAKE ONE TABLET BY MOUTH EVERY DAY 02/21/2015 08/19/2015 Inactive Diovan 320 mg tablet RxNorm: 484856 TAKE ONE TABLET BY MOUTH EVERY DAY 12/19/2014 12/18/2015 Inactive cephalexin 500 mg capsule RxNorm: 519224 1 Capsule(s) PO TID 11/13/2014 11/19/2014 Inactive prednisone 10 mg tablet RxNorm: 650529 3 Tablet(s) PO daily 11/13/2014 11/17/2014 Inactive prednisone 10 mg tablet RxNorm: 794834 3 Tablet(s) PO daily 11/12/2014 11/12/2014 Inactive Kenalog 40 mg/mL suspension for injection RxNorm: 4858776 Milliliter(s) Inj 11/12/2014 11/12/2014 Inactive cephalexin 500 mg capsule RxNorm: 396022 1 Capsule(s) PO TID 11/12/2014 11/12/2014 Inactive ceftriaxone 500 mg solution for injection RxNorm: 1075554 Inj 11/12/2014 11/12/2014 Inactive dicyclomine 10 mg capsule RxNorm: 075515 TAKE ONE CAPSULE BY MOUTH THREE TIMES A DAY NEEDED 11/08/2014 04/18/2015 Inactive metoprolol tartrate 100 mg tablet RxNorm: 101448 TAKE ONE TABLET BY MOUTH TWICE A DAY 10/18/2014 2015 Inactive metoprolol tartrate 100 mg tablet RxNorm: 251673 1 Tablet(s) PO BID 10/18/2014 10/12/2015 Inactive simvastatin 20 mg tablet RxNorm: 305951 TAKE ONE TABLET BY MOUTH EVERY DAY 08/21/2014 02/16/2015 Inactive Diovan 320 mg tablet RxNorm: 849753 TAKE ONE TABLET BY MOUTH EVERY DAY 08/21/2014 12/18/2014 Inactive Carafate 1 gram tablet RxNorm: 055479 1 Tablet(s) PO AC & HS MIX WITH 30ML WATER 07/23/2014 11/24/2017 Inactive dissolve in water and drink as slurry dicyclomine 10 mg capsule RxNorm: 203634 1 Capsule(s) PO TID PRN 07/23/2014 10/20/2014 Inactive simvastatin 20 mg tablet RxNorm: 877730 TAKE ONE TABLET BY MOUTH EVERY DAY 06/07/2014 08/20/2014 Inactive estradiol 0.5 mg tablet RxNorm: 662862 TAKE ONE TABLET BY MOUTH EVERY DAY 05/16/2014 05/10/2015 Inactive amlodipine 10 mg tablet RxNorm: 366067 TAKE ONE TABLET BY MOUTH EVERY DAY 05/16/2014 04/18/2015 Inactive Diovan 320 mg tablet RxNorm: 813119 TAKE ONE TABLET BY MOUTH EVERY DAY 03/26/2014 08/20/2014 Inactive Diflucan 150 mg tablet RxNorm: 638946 1 Tablet(s) PO daily 03/21/2014 03/27/2014 Inactive simvastatin 20 mg tablet RxNorm: 816910 TAKE ONE TABLET BY MOUTH EVERY DAY 03/02/2014 05/30/2014 Inactive estradiol 0.5 mg tablet RxNorm: 758894 TAKE ONE TABLET BY MOUTH EVERY DAY 02/16/2014 05/15/2014 Inactive amlodipine 10 mg tablet RxNorm: 317700 TAKE ONE TABLET BY MOUTH EVERY DAY 02/16/2014 05/15/2014 Inactive pantoprazole 40 mg tablet,delayed release RxNorm: 020944 2 Tablet(s) PO daily 01/25/2014 02/23/2014 Inactive simvastatin 20 mg tablet RxNorm: 482133 Tablet(s) PO TAKE ONE TABLET BY MOUTH EVERY DAY 11/30/2013 03/01/2014 Inactive amlodipine 10 mg tablet RxNorm: 123622 Tablet(s) PO TAKE ONE TABLET BY MOUTH EVERY DAY 11/16/2013 02/15/2014 Inactive metoprolol tartrate 100 mg tablet RxNorm: 482184 1 Tablet(s) PO BID 10/23/2013 10/17/2014 Inactive Diovan 320 mg tablet RxNorm: 976723 Tablet(s) PO TAKE ONE TABLET BY MOUTH EVERY DAY 09/28/2013 03/25/2014 Inactive Carafate 1 gram tablet RxNorm: 777314 1 Tablet(s) PO TID MIX WITH 30ML WATER 09/20/2013 12/18/2013 Inactive estradiol 0.5 mg tablet RxNorm: 203578 1 Tablet(s) PO daily 08/21/2013 02/15/2014 Inactive amlodipine 10 mg tablet RxNorm: 874016 1 Tablet(s) PO daily 08/21/2013 11/15/2013 Inactive simvastatin 20 mg tablet RxNorm: 805647 1 Tablet(s) PO daily 08/21/2013 11/18/2013 Inactive Diovan 320 mg tablet RxNorm: 321897 1 Tablet(s) PO daily 08/21/2013 09/19/2013 Inactive Carafate 1 gram tablet RxNorm: 726968 1 Tablet(s) PO TID MIX WITH 30ML WATER 08/21/2013 09/19/2013 Inactive Diovan 320 mg tablet RxNorm: 823171 1 Tablet(s) PO daily 07/20/2013 08/18/2013 Inactive amlodipine 10 mg tablet RxNorm: 514070 1 Tablet(s) PO daily 07/20/2013 08/18/2013 Inactive estradiol 0.5 mg tablet RxNorm: 221144 1 Tablet(s) PO daily 07/20/2013 08/18/2013 Inactive metoprolol tartrate 100 mg tablet RxNorm: 202936 1 Tablet(s) PO BID 06/22/2013 10/22/2013 Inactive Wellbutrin XL 150 mg 24 hr tablet, extended release RxNorm: 898894 1 Tablet(s) PO daily 06/22/2013 07/19/2013 Inactive pantoprazole 40 mg tablet,delayed release RxNorm: 681556 1 Tablet(s) PO daily No Start Date Active calcium 500 mg tablet RxNorm: 2 Tablet(s) PO BID No Start Date Active glucosamine and bsfoupccmsg-xrmrjved-xaks#3 oral RxNorm: 2837 oral No Start Date Active multivitamin tablet RxNorm: 1 Tablet(s) PO daily No Start Date Active aspirin 81 mg tablet RxNorm: 903078 1 Tablet(s) PO daily No Start Date Active Probiotic oral RxNorm: oral No Start Date Active Vitamin D3 1,000 unit capsule RxNorm: 151238 1 Capsule(s) PO daily No Start Date Active Eliquis 5 mg tablet RxNorm: 2935944 1 Tablet(s) PO BID No Start Date Active simvastatin 20 mg tablet RxNorm: 696378 1 Tablet(s) PO daily No Start Date 08/20/2013 Inactive hyoscyamine 0.125 mg sublingual tablet RxNorm: 2243371 1 Tablet(s) SL TID No Start Date 07/22/2014 Inactive metoprolol tartrate 100 mg tablet RxNorm: 161164 1 Tablet(s) PO daily No Start Date 06/21/2013 Inactive amlodipine 10 mg tablet RxNorm: 635334 1 Tablet(s) PO daily No Start Date 07/19/2013 Inactive Diovan 320 mg tablet RxNorm: 848785 1 Tablet(s) PO daily No Start Date 07/19/2013 Inactive Fish Oil 1,000 mg capsule RxNorm: 1 Capsule(s) PO BID No Start Date 01/06/2017 Inactive omeprazole 20 mg tablet,delayed release RxNorm: 268642 1 Tablet(s) PO daily No Start Date 01/25/2014 Inactive estradiol 0.5 mg tablet RxNorm: 444850 1 Tablet(s) PO daily No Start Date 07/19/2013 Inactive Medication Administered Medication Codes Instructions Start Date Status Kenalog 40 mg/mL suspension for injection RxNorm: 2869391 Milliliter 11/12/2014 No longer Active ceftriaxone 500 mg solution for injection RxNorm: 2638606 11/12/2014 No longer Active Immunizations Vaccine Codes [...] Lipid Ord30 C/HDL 3.5 Ratio 11/25/2017 %Hba1C Cjh021 % HbA1c 15625- 6 5.7 % 11/25/2017 %Hba1C Ani343 Gluc Ave 117 mg/dL 11/25/2017 Tsh Ord6 TSH (3rd IS) 1.06 uIU/mL 11/25/2017 Comp Metabolic Ifo831 NA 141 mEq/L 11/25/2017 Comp Metabolic Dui707 K 4.2 mEq/L 11/25/2017 Comp Metabolic Ilo935 CL 103 mEq/L 11/25/2017 Comp Metabolic Yxd590 CO2 31.0 mEq/L 11/25/2017 Comp Metabolic Ahe973 ANION GAP 11 11/25/2017 Comp Metabolic Rqi237 GLUCOSE 117 mg/dL 11/25/2017 Comp Metabolic Nao696 Creat 0.8 mg/dL 11/25/2017 Comp Metabolic Bwx686 eGFR 74 ml/min/1.73m2 11/25/2017 Comp Metabolic Qqu416 BUN 18 mg/dL 11/25/2017 Comp Metabolic Syr496 B/C Ratio 22.2 Ratio 11/25/2017 Comp Metabolic Fhf294 CALCIUM 9.4 mg/dL 11/25/2017 Comp Metabolic Tey369 ALK PHOS 62 U/L 11/25/2017 Comp Metabolic Nmg481 AST(SGOT) 21 U/L 11/25/2017 Comp Metabolic Ymi097 ALT(SGPT) 18 U/L 11/25/2017 Comp Metabolic Gng975 BILI T 0.4 mg/dL 11/25/2017 Comp Metabolic Wjd397 ALBUMIN 4.0 g/dL 11/25/2017 Comp Metabolic Uep659 TPRO 6.1 g/dL 11/25/2017 Comp Metabolic Bpd359 GLOB 2.1 g/dL 11/25/2017 Comp Metabolic Wen007 A/G Ratio 1.9 Ratio 11/25/2017 Comp Metabolic Hxb843 Osmo 284 mOsmo 11/25/2017 Cbc With Differential [...] 37.4 % 11/25/2017 Cbc With Differential Ord2 Swift% 11.2 % 11/25/2017 Cbc With Differential Ord2 MCH 31.1 pg 11/25/2017 Cbc With Differential Ord2 Eos% 2.2 % 11/25/2017 Cbc With Differential Ord2 MCHC 31.9 pg 11/25/2017 Cbc With Differential Ord2 Baso% 0.4 % 11/25/2017 Cbc With Differential Ord2 PLT 351 K/ul 11/25/2017 Cbc With Differential Ord2 Neut ABS# 2.65 K/ul 11/25/2017 Cbc With Differential Ord2 RDW 14.1 % 11/25/2017 Cbc With Differential Ord2 Lymph ABS# 2.03 K/ul 11/25/2017 Cbc With Differential Ord2 Swift ABS# 0.6 K/ul 11/25/2017 Cbc With Differential [...] 49.9 % 05/11/2016 Cbc With Differential Ord2 Lymph% 38.1 % 05/11/2016 Cbc With Differential Ord2 MCV 97.9 fl 05/11/2016 Cbc With Differential Ord2 Swift% 9.5 % 05/11/2016 Cbc With Differential Ord2 MCH 31.8 pg 05/11/2016 Cbc With Differential Ord2 Eos% 1.9 % 05/11/2016 Cbc With Differential Ord2 MCHC 32.5 pg 05/11/2016 Cbc With Differential Ord2 Baso% 0.6 % 05/11/2016 Cbc With Differential Ord2 PLT 302 K/ul 05/11/2016 Cbc With Differential Ord2 RDW 13.8 % 05/11/2016 Cbc With Differential Ord2 Neut ABS# 2.30 K/ul 05/11/2016 Cbc With Differential Ord2 Lymph ABS# 1.76 K/ul 05/11/2016 Cbc With Differential Ord2 Swift ABS# 0.4 K/ul 05/11/2016 Cbc With Differential Ord2 Eos ABS# 0.1 K/ul 05/11/2016 Cbc With Differential Ord2 Baso ABS# 0.0 K/ul 05/11/2016 Comp Metabolic Ppy862 NA 139 mEq/L 05/11/2016 Comp Metabolic Zwq092 K 4.6 mEq/L 05/11/2016 Comp Metabolic Hhq563 CL 104 mEq/L 05/11/2016 Comp Metabolic Lks157 CO2 30.0 mEq/L 05/11/2016 Comp Metabolic Zfc046 ANION GAP 10 05/11/2016 Comp Metabolic Srn642 GLUCOSE 113 mg/dL 05/11/2016 Comp Metabolic Oqo108 Creat 0.8 mg/dL 05/11/2016 Comp Metabolic Mrf419 eGFR 74 ml/min/1.73m2 05/11/2016 Comp Metabolic Cyb956 BUN 16 mg/dL 05/11/2016 Comp Metabolic Xzk632 B/C Ratio 19.8 Ratio 05/11/2016 Comp Metabolic Omj471 CALCIUM 10.1 mg/dL 05/11/2016 Comp Metabolic Oqn661 ALK PHOS 44 U/L 05/11/2016 Comp Metabolic Moo745 AST(SGOT) 20 U/L 05/11/2016 Comp Metabolic Rxf221 ALT(SGPT) 17 U/L 05/11/2016 Comp Metabolic Wdj295 BILI T 0.4 mg/dL 05/11/2016 Comp Metabolic Oil884 ALBUMIN 4.1 g/dL 05/11/2016 Comp Metabolic Pdb784 TPRO 6.5 g/dL 05/11/2016 Comp Metabolic Kzw470 GLOB 2.4 g/dL 05/11/2016 Comp Metabolic Bjl921 A/G Ratio 1.8 Ratio 05/11/2016 Comp Metabolic Etq069 Osmo 280 mOsmo 05/11/2016 Tsh Ord6 hTSH II 0.96 uIU/mL 05/11/2016 Lipid Ord30 CHOL 283 mg/dL 05/11/2016 Lipid Ord30 HDL 53.0 mg/dl 05/11/2016 Lipid Ord30 TRIG 144 mg/dL 05/11/2016 Lipid Ord30 LDL 201 mg/dL 05/11/2016 Lipid Ord30 C/HDL 5.3 Ratio 05/11/2016 C-Reactive Protein Qnt Crqnt CRP 0.5 mg/dl 12/18/2015 Vitamin D 25 Oh Dlt3883 VITAMIN D, 25 HYDROXY 84.50 ng/mL 12/18/2015 Comp Metabolic Wfl804 NA 139 mEq/L 12/18/2015 Comp Metabolic Tbs841 K 3.8 mEq/L 12/18/2015 Comp Metabolic Loh576 CL 103 mEq/L 12/18/2015 Comp Metabolic Cea359 CO2 31.0 mEq/L 12/18/2015 Comp Metabolic Szt471 ANION GAP 9 12/18/2015 Comp Metabolic Uyc891 GLUCOSE 107 mg/dL 12/18/2015 Comp Metabolic Rvs336 Creat 0.8 mg/dL 12/18/2015 Comp Metabolic Sgv917 eGFR 80 ml/min/1.73m2 12/18/2015 Comp Metabolic Awj755 BUN 19 mg/dL 12/18/2015 Comp Metabolic Ypf666 B/C Ratio 25.0 Ratio 12/18/2015 Comp Metabolic Drw881 CALCIUM 9.1 mg/dL 12/18/2015 Comp Metabolic Ibe368 ALK PHOS 42 U/L 12/18/2015 Comp Metabolic Eye028 AST(SGOT) 17 U/L 12/18/2015 Comp Metabolic Xll081 ALT(SGPT) 18 U/L 12/18/2015 Comp Metabolic Mlf418 BILI T 0.3 mg/dL 12/18/2015 Comp Metabolic Vhu783 ALBUMIN 3.8 g/dL 12/18/2015 Comp Metabolic Dgd196 TPRO 5.9 g/dL 12/18/2015 Comp Metabolic Qzv628 GLOB 2.1 g/dL 12/18/2015 Comp Metabolic Gkp750 A/G Ratio 1.8 Ratio 12/18/2015 Comp Metabolic Hez529 Osmo 280 mOsmo 12/18/2015 Sed Rate Ord21 [...] 32.0 pg 12/18/2015 Cbc With Differential Ord2 Swift% 9.3 % 12/18/2015 Cbc With Differential Ord2 Eos% 2.4 % 12/18/2015 Cbc With Differential Ord2 MCHC 32.8 pg 12/18/2015 Cbc With Differential Ord2 Baso% 0.4 % 12/18/2015 Cbc With Differential Ord2 PLT 267 K/ul 12/18/2015 Cbc With Differential Ord2 Neut ABS# 3.38 K/ul 12/18/2015 Cbc With Differential Ord2 RDW 13.5 % 12/18/2015 Cbc With Differential Ord2 Lymph ABS# 1.45 K/ul 12/18/2015 Cbc With Differential Ord2 Swift ABS# 0.5 K/ul 12/18/2015 Cbc With Differential [...] 31.6 pg 09/02/2015 Cbc With Differential Ord2 Swift% 8.8 % 09/02/2015 Cbc With Differential Ord2 [...] 1.53 K/ul 09/02/2015 Cbc With Differential Ord2 Swift ABS# 0.5 K/ul 09/02/2015 Cbc With Differential Ord2 Eos ABS# 0.1 K/ul 09/02/2015 Cbc With Differential Ord2 Baso ABS# 0.0 K/ul 09/02/2015 Cbc With Differential Ord2 New Analyzer Notice Please note new ref ranges starting 08-14-2015 due to implemntation of new five part differential hematolgy analyzer. 09/02/2015 Tsh Ord6 hTSH II 1.41 uIU/mL 09/02/2015 Comp Metabolic Hjm900 NA 136 mEq/L 09/02/2015 Comp Metabolic Gar205 K 4.5 mEq/L 09/02/2015 Comp Metabolic Nxe040 CL 103 mEq/L 09/02/2015 Comp Metabolic Ocn653 CO2 27.0 mEq/L 09/02/2015 Comp Metabolic Wez965 ANION GAP 11 09/02/2015 Comp Metabolic Cfu123 GLUCOSE 109 mg/dL 09/02/2015 Comp Metabolic Bpg867 Creat 1.0 mg/dL 09/02/2015 Comp Metabolic Krr195 eGFR 62 ml/min/1.73m2 09/02/2015 Comp Metabolic Xps285 BUN 21 mg/dL 09/02/2015 Comp Metabolic Bkq308 B/C Ratio 22.1 Ratio 09/02/2015 Comp Metabolic Gux251 CALCIUM 9.3 mg/dL 09/02/2015 Comp Metabolic Rwp177 ALK PHOS 37 U/L 09/02/2015 Comp Metabolic Shh762 AST(SGOT) 19 U/L 09/02/2015 Comp Metabolic Scc066 ALT(SGPT) 16 U/L 09/02/2015 Comp Metabolic Mfv552 BILI T 0.4 mg/dL 09/02/2015 Comp Metabolic Pmh684 ALBUMIN 4.1 g/dL 09/02/2015 Comp Metabolic Dcg317 TPRO 6.3 g/dL 09/02/2015 Comp Metabolic Wiq885 GLOB 2.2 g/dL 09/02/2015 Comp Metabolic Lxq894 A/G Ratio 1.8 Ratio 09/02/2015 Comp Metabolic Jbc980 Osmo 276 mOsmo 09/02/2015 A1C HPLC 2792964 A1C HPLC 70625-5 5.6 % 07/23/2014 VIT D TOTL 5093195 VIT D TOTL 52 NG/ML 07/20/2013 GFR CALC 6845896 GFR AA >60 ML/MIN 07/20/2013 GFR CALC 4151201 GFR NON-AA >60 ML/MIN 07/20/2013 CBC 9356962 WBC 5.9 10e9/L 07/20/2013 CBC 8729445 RBC 4.79 10e12/L 07/20/2013 CBC 6803539 HGB 15.5 g/dL 07/20/2013 CBC 7748546 HCT DET 46.1 % 07/20/2013 CBC 7438583 MCV 96.2 fL 07/20/2013 CBC 1601082 MCH 32.4 pg 07/20/2013 CBC 3523658 MCHC 33.6 g/dL 07/20/2013 CBC 9534703 PLT 286 10e9/L 07/20/2013 CBC 8322963 MPV 10.8 fL 07/20/2013 CBC 1080706 ERINN % 66.1 % 07/20/2013 CBC 7074161 LY % 24.3 % 07/20/2013 CBC 3141472 MON % 8.1 % 07/20/2013 CBC 9697795 EOS % 1.2 % 07/20/2013 CBC 3761856 BASO % 0.3 % 07/20/2013 CBC 0079586 RDW 12.7 % 07/20/2013 CBC 1689426 ABS ERINN 3.90 10e9/L 07/20/2013 CBC 2465162 ABS LYMPH 1.43 10e9/L 07/20/2013 CBC 3472018 ABS MONO 0.48 10e9/L 07/20/2013 CBC 1816436 ABS EOS 0.07 10e9/L 07/20/2013 CBC 3742585 ABS BASO 0.02 10e9/L 07/20/2013 CBC 0195448 RDW-SD 44.1 fL 07/20/2013 A1C HPLC [id number] A1C HPLC 23766-0 5.9 % 07/20/2013 LIPID GRP HDL TEST 54 MG/DL 07/20/2013 LIPID GRP TRIG 98 MG/DL 07/20/2013 LIPID GRP TEST LDL 95 MG/DL 07/20/2013 LIPID GRP CHOL 169 MG/DL 07/20/2013 LIPID GRP RCHOL/HDL 3.13 RATIO 07/20/2013 TSH 7689764 TSH 1.032 uIU/ML 07/20/2013 CHEM 14 4153019 AST 18 U/L 07/20/2013 CHEM 14 0294631 ALT 13 IU/L 07/20/2013 CHEM 14 7467822 BUN 19 MG/DL 07/20/2013 CHEM 14 2124237 ALBUMIN 4.5 GM/DL 07/20/2013 CHEM 14 9331009 CHLORIDE 105 MMOL/L 07/20/2013 CHEM 14 1905725 BILI TOT 0.5 MG/DL 07/20/2013 CHEM 14 6497043 ALK PHOS 40 U/L 07/20/2013 CHEM 14 0729730 SODIUM 137 MMOL/L 07/20/2013 CHEM 14 5283129 CREATININE 0.76 MG/DL 07/20/2013 CHEM 14 1182781 CALCIUM 10.0 MG/DL 07/20/2013 CHEM 14 9841199 POTASSIUM 4.6 MMOL/L 07/20/2013 CHEM 14 5236978 PROT TOT 6.5 GM/DL 07/20/2013 CHEM 14 4929680 GLUCOSE 118 MG/DL 07/20/2013 CHEM 14 0301014 BICARB 26 MMOL/L 07/20/2013 CHEM 14 6847174 ANION GAP 6 MEQ/L 07/20/2013 VIT B 12 5596970 VIT B 12 492 PG/ML 07/20/2013 Review [...] General 1995 Eyes conjunctiva/eyelids Overall: eyelids normal 01/25/2014 None Full Exam - General 1994 Eyes pupils and irises Overall: pupils equal, round, reactive to light and accomodation 01/25/2014 None Full Exam - General 1995 Respiratory [...] sounds 08/21/2013 None Full Exam - General 1995 Lymphatic neck nodes Overall: anterior cervical chain [...] benign 06/22/2013 None Full Exam - General 1995 Integument inspection of skin Overall: no rash, lesions 06/22/2013 None Procedures Procedure Codes Date PPPS, SUBSEQ VISIT CPT- 4: G0439 12/03/2017 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 3-[address]: 422389797 CPT-4: G0436 09/08/2016 ADMIN INFLUENZA VIRUS VAC CPT-4: G0008 05/11/2016 PNEUMOCOCCAL VACC 13 SAULO IM Formatting Model/CDA Sections, Assigned to/Khalif Rafia SNOMED CT: 48152464 CPT-4: 61681Sfbeshq 05/11/2016 ADMIN PNEUMOCOCCAL VACCINE SNOMED CT: 01595096 CPT-4: G0009 05/11/2016 FLU VACC 4 SAULO 3 YRS PLUS IM Formatting Model/CDA Sections, Assigned to/Khalif Rafia SNOMED CT: [id number] CPT-4: 99204Fdhkpzs 05/11/2016 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 3-[address]: [id number] CPT-4: G0436 02/10/2016 TRIAMCINOLONE ACET INJ NOS CPT-4: J3301 12/16/2015 DRAIN/INJECT JOINT/BURSA CPT-4: 78416 12/16/2015 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 3-[address]: [id number] CPT-4: G0436 12/09/2015 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 3-[address]: [id number] CPT-4: G0436 10/28/2015 THER/PROPH/DIAG INJ SC/IM CPT-4: 92017 11/12/2014 TRIAMCINOLONE ACET INJ NOS CPT-4: J3301 11/12/2014 ROCEPHIN, PER 250 MG CPT- 4: J0696 11/12/2014 ROUTINE VENIPUNCTURE CPT- 4: 45098 07/23/2014 URINALYSIS NONAUTO W/O SCOPE CPT-4: 86393 03/21/2014 ROUTINE VENIPUNCTURE CPT- 4: 63317 07/20/2013 PRESCRIP TRANSMIT VIA ERX SY CPT-4: G8553 07/20/2013 PRESCRIP TRANSMIT VIA ERX SY CPT-4: G8553 06/22/2013 PARTIAL REMOVAL OF LUNG CPT-4: 90085 Unknown Vital Signs Date Vital 09/19/2018 Blood Pressure 1: 140/70 Code: 8480-6 BMI: 31.6 Code: 35472-1 Heart Rate 1: 72 bpm Height: 5'5" SpO2: 96% Weight: 190 lbs 06/16/2018 Blood Pressure 1: 146/84 Code: 8480-6 BMI: 30.6 Code: 96519-4 Heart Rate 1: 68 bpm Height: 5'5" SpO2: 99% Weight: 184 lbs 03/25/2018 Blood Pressure 1: 144/80 Code: 8480-6 BMI: 30.0 Code: 93630-3 Heart Rate 1: 65 bpm Height: 5'5" SpO2: 98% Weight: 180 lbs 12/03/2017 Blood Pressure 1: 142/86 Code: 8480-6 BMI: 29.5 Code: 57735-9 Heart Rate 1: 74 bpm Height: 5'5" SpO2: 93% Weight: 177 lbs 11/25/2017 Blood Pressure 1: 142/84 Code: 8480-6 BMI: 29.5 Code: 72481-7 Heart Rate 1: 69 bpm Height: 5'5" SpO2: 99% Weight: 177 lbs 07/09/2017 Blood Pressure 1: 142/68 Code: 8480-6 BMI: 28.3 Code: 51296-5 Heart Rate 1: 48 bpm Height: 5'5" SpO2: 97% Weight: 170 lbs 04/29/2017 Blood Pressure 1: 148/86 Code: 8480-6 BMI: 28.6 Code: 84227-5 Heart Rate 1: 71 bpm Height: 5'5" SpO2: 95% Weight: 172 lbs 01/07/2017 Blood Pressure 1: 140/70 Code: 8480-6 BMI: 28.8 Code: 99254-3 Heart Rate 1: 68 bpm Height: 5'5" SpO2: 96% Weight: 173 lbs 09/08/2016 Blood Pressure 1: 134/70 Code: 8480-6 BMI: 29.1 Code: 98208-7 Heart Rate 1: 68 bpm Height: 5'5" SpO2: 99% Weight: 175 lbs 05/11/2016 Blood Pressure 1: 138/88 Code: 8480-6 BMI: 29.2 Code: 93957-1 Heart Rate 1: 67 bpm Height: 5'6" SpO2: 95% Weight: 178 lbs 02/10/2016 Blood Pressure 1: 148/82 Code: 8480-6 BMI: 28.8 Code: 79509-6 Heart Rate 1: 63 bpm Height: 5'6" SpO2: 97% Weight: 176 lbs 12/18/2015 Blood Pressure 1: 130/78 Code: 8480-6 BMI: 28.8 Code: 63750-2 Heart Rate 1: 66 bpm Height: 5'6" SpO2: 98% Weight: 176 lbs 12/16/2015 Blood Pressure 1: 162/100 Code: 8480-6 BMI: 28.8 Code: 28360-6 Heart Rate 1: 65 bpm Height: 5'6" SpO2: 98% Weight: 176 lbs 12/09/2015 Blood Pressure 1: 142/70 Code: 8480-6 BMI: 28.4 Code: 28459-0 Heart Rate 1: 65 bpm Height: 5'6" SpO2: 96% Weight: 173 lbs 10/28/2015 Blood Pressure 1: 160/82 Code: 8480-6 Blood Pressure 1: 140/86 Code: 8480-6 BMI: 28.5 Code: 74468-0 Heart Rate 1: 60 bpm Height: 5'6" SpO2: 96% Weight: 174 lbs 08/26/2015 Blood Pressure 1: 158/80 Code: 8480-6 Blood Pressure 1: 148/88 Code: 8480-6 BMI: 28.0 Code: 25102-5 Heart Rate 1: 68 bpm Height: 5'6" SpO2: 98% Weight: 171 lbs 02/12/2015 Blood Pressure 1: 136/74 Code: 8480-6 BMI: 25.9 Code: 77669-7 Heart Rate 1: 61 bpm Height: 5'6" SpO2: 97% Weight: 158 lbs 11/12/2014 Blood Pressure 1: 140/82 Code: 8480-6 BMI: 25.9 Code: 74640-4 Heart Rate 1: 64 bpm Height: 5'6" SpO2: 97% Weight: 158 lbs 07/23/2014 Blood Pressure 1: 138/88 Code: 8480-6 BMI: 25.6 Code: 41560-1 Heart Rate 1: 57 bpm Height: 5'6" SpO2: 95% Weight: 156 lbs 03/21/2014 Blood Pressure 1: 124/64 Code: 8480-6 Heart Rate 1: 64 bpm Weight: 147 lbs 01/25/2014 Blood Pressure 1: 130/70 Code: 8480-6 BMI: 24.4 Code: 21554-1 Height: 5'6" Weight: 149 lbs 10/23/2013 Blood Pressure 1: 152/82 Code: 8480-6 BMI: 25.7 Code: 99088-9 Heart Rate 1: 60 bpm Height: 5'6" Weight: 157 lbs 08/21/2013 Blood Pressure 1: 142/90 Code: 8480-6 BMI: 25.9 Code: 71786-5 Heart Rate 1: 56 bpm Height: 5'6" Weight: 158 lbs 07/20/2013 Blood Pressure 1: 164/80 Code: 8480-6 BMI: 26.2 Code: 68410-0 Heart Rate 1: 60 bpm Height: 5'6" SpO2: 98% Weight: 160 lbs 06/22/2013 Blood Pressure 1: 140/84 Code: 8480-6 BMI: 28.2 Code: 35177-2 Heart Rate 1: 60 bpm Height: 5'6" [...] data Encounters Encounter Performer Location Codes Date ([id number]) 59019 EST. PATIENT, LEVEL IV Diagnosis: Essential (primary) hypertension[ICD10: I10] Diagnosis: Peripheral vascular disease, unspecified[ICD10: I73.9] Diagnosis: Rash and other nonspecific skin eruption[ICD10: R21] Diagnosis: Impaired fasting glucose[ICD10: R73.01] Marily Gonzalez MD, [facility] CPT-4: 61325 09/19/2018 [id number]) 59013 EST. PATIENT, LEVEL IV Diagnosis: Malignant neoplasm of upper lobe, left bronchus or lung[ICD10: C34.12] Diagnosis: Solitary pulmonary nodule[ICD10: R91.1] Diagnosis: Essential (primary) hypertension[ICD10: I10] Diagnosis: Low back pain[ICD10: M54.5] Diagnosis: Tobacco use[ICD10: Z72.0] Marily Gonzalez MD, [facility] CPT-4: 16279 06/16/2018 [id number]) 29905 EST. PATIENT, LEVEL IV Diagnosis: Essential (primary) hypertension[ICD10: I10] Diagnosis: Major depressive disorder, recurrent, moderate[ICD10: F33.1] Diagnosis: Low back pain[ICD10: M54.5] Diagnosis: Rash and other nonspecific skin eruption[ICD10: R21] Marily Gonzalez MD, [facility] CPT-4: 03827 03/25/2018 [id number]) 35064 EST. PATIENT, LEVEL IV Diagnosis: Essential (primary) hypertension[ICD10: I10] Diagnosis: Mixed hyperlipidemia[ICD10: E78.2] Diagnosis: Malignant neoplasm of upper lobe, left bronchus or lung[ICD10: C34.12] Diagnosis: Impaired fasting glucose[ICD10: R73.01] Diagnosis: Cervicalgia[ICD10: M54.2] Diagnosis: Low back pain[ICD10: M54.5] Marily Gonzalze MD, [facility] CPT-4: 68531 11/25/2017 ([id number]) 28909 EST. PATIENT, LEVEL III Diagnosis: Essential (primary) hypertension[ICD10: I10] Marily Gonzalez MD, [facility] CPT-4: 95373 07/09/2017 ([id number]) 53174 EST. PATIENT, LEVEL III Diagnosis: Gas pain[ICD10: R14.1] Diagnosis: Rash and other nonspecific skin eruption[ICD10: R21] Marily Gonzalez MD, [facility] CPT-4: 84144 04/29/2017 ([id number]) 97321 EST. PATIENT, LEVEL III Diagnosis: Essential (primary) hypertension[ICD10: I10] Diagnosis: Malignant neoplasm of upper lobe, left bronchus or lung[ICD10: C34.12] Diagnosis: Chronic obstructive pulmonary disease, unspecified[ICD10: J44.9] Marily Gonzalez MD, [facility] CPT-4: 17168 01/07/2017 ([id number]) 50675 EST. PATIENT, LEVEL IV Diagnosis: Essential (primary) hypertension[ICD10: I10] Diagnosis: Mixed hyperlipidemia[ICD10: E78.2] Diagnosis: Tobacco use[ICD10: Z72.0] Diagnosis: Malignant neoplasm of upper lobe, left bronchus or lung[ICD10: C34.12] Marily Gonzalez MD, [facility] CPT-4: 48656 09/08/2016 ([id number]) 98644 EST. 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 CPT-4: 47215 05/11/2016 ([id number]) 48118 EST. PATIENT, LEVEL IV Diagnosis: Essential (primary) hypertension[ICD10: I10] Diagnosis: Generalized anxiety disorder[ICD10: F41.1] Diagnosis: Tobacco use[ICD10: Z72.0] Marily Gonzalez MD, [facility] CPT-4: 12863 02/10/2016 41042 EST. PATIENT, LEVEL IV Diagnosis: Myalgia[ICD10: M79.1] Diagnosis: Low back pain[ICD10: M54.5] Joy Gonzalez MD, [facility] CPT-4: 36515 12/18/2015 32463 EST. PATIENT, LEVEL IV Diagnosis: Low back pain[ICD10: M54.5] Diagnosis: Pain in right hip[ICD10: M25.551] Joy Gonzalez MD, [facility] CPT-4: 51234 12/16/2015 ([id number]) 51276 EST. PATIENT, LEVEL IV Diagnosis: Low back pain[ICD10: M54.5] Diagnosis: Malignant neoplasm of upper lobe, left bronchus or lung[ICD10: C34.12] Diagnosis: Tobacco use[ICD10: Z72.0] Diagnosis: Essential (primary) hypertension[ICD10: I10] Diagnosis: Generalized anxiety disorder[ICD10: F41.1] Marily Gonzalez MD, [facility] CPT-4: 05955 12/09/2015 ([id number]) 06439 EST. PATIENT, LEVEL IV Diagnosis: Essential (primary) hypertension[ICD10: I10] Diagnosis: Tobacco use[ICD10: Z72.0] Diagnosis: Solitary pulmonary nodule[ICD10: R91.1] Marily Gonzalez MD, [facility] CPT-4: 25618 10/28/2015 ([id number]) 57725 EST. PATIENT, LEVEL IV Diagnosis: Essential (primary) hypertension[ICD10: I10] Diagnosis: Bilateral primary osteoarthritis of hip[ICD10: M16.0] Diagnosis: Solitary pulmonary nodule[ICD10: R91.1] Marily Gonzalez MD, [facility] CPT-4: 56263 08/26/2015 ([id number]) 84827 EST. PATIENT, LEVEL IV Diagnosis: ESSENTIAL HYPERTENSION[ICD9: 401.9] Diagnosis: Pulmonary nodule[ICD9: 793.11] Teresa Gonzalez MD, [facility] CPT-4: 15542 02/12/2015 ([id number]) 89248 EST. PATIENT, LEVEL III Diagnosis: ACUTE BRONCHITIS[ICD9: 466.0] Diagnosis: ALLERGIC RHINITIS[ICD9: 477.9] Teresa Gonzalez MD [facility] CPT-4: 24581 11/12/2014 ([id number]) 26956 EST. PATIENT, LEVEL IV Diagnosis: ESOPHAGEAL REFLUX[ICD9: 530.81] Diagnosis: ESSENTIAL HYPERTENSION[ICD9: 401.9] Diagnosis: Elevated blood sugar[ICD9: 790.29] Marily Gonzalez MD, [facility] CPT- 4: 89848 07/23/2014 ([id number]) 53558 EST. PATIENT, LEVEL III Diagnosis: Vaginal yeast infection[ICD9: 112.1] Diagnosis: Vaginal burning[ICD9: 625.8] Diagnosis: History of UTI[ICD9: V13.02] Diagnosis: Dysuria[ICD9: 788.1] Marily Gonzalez MD, [facility] CPT-4: 58836 03/21/2014 ([id number]) 23330 EST. PATIENT, LEVEL III Diagnosis: ESSENTIAL HYPERTENSION[ICD9: 401.9] Marily Gonzalez MD [facility] CPT-4: 87601 01/25/2014 ([id number]) 46457 EST. PATIENT, LEVEL III Diagnosis: ESSENTIAL HYPERTENSION[SNOMED: 49444189] Diagnosis: ESOPHAGEAL REFLUX[ICD9: 530.81] Teresa Gonzalez MD [facility] CPT-4: 38145 10/23/2013 ([id number]) 07684 EST. PATIENT, LEVEL IV Diagnosis: ESOPHAGEAL REFLUX[ICD9: 530.81] Diagnosis: ESSENTIAL HYPERTENSION[SNOMED: 92999172] Diagnosis: Rash[ICD9: 782.1] Marily Gonzalez MD, [facility] CPT-4: 12947 08/21/2013 ([id number]) 76307 EST. PATIENT, LEVEL IV Diagnosis: Muscle ache of extremity[ICD9: 729.1] Diagnosis: Tingling in extremities[ICD9: 782.0] Diagnosis: ESSENTIAL HYPERTENSION[SNOMED: 49858208] Diagnosis: GERD (gastroesophageal reflux disease)[ICD9: 530.81] Diagnosis: Elevated blood sugar[ICD9: 790.29] [facility] CPT- 4: 94220 07/20/2013 OFFICE VISIT, NEW - LEVEL 3 Diagnosis: ESSENTIAL HYPERTENSION[SNOMED: 92126693] Diagnosis: Tobacco use[ICD9: 305.1] Diagnosis: Depression[ICD9: 311] [facility] CPT-4: 92422 06/22/2013 ([id number]) BEHAV CHNG SMOKING 3-10 MIN Diagnosis: [ICD9: ] [facility] CPT-4: 67337 06/22/2013 Plan of Care Planned Activity Notes [...] -check TA 09/19/2018 Appointment: Marily Valerio WPtel: [address] [place], [place] [phone] [place] [address] (30 min) Complex 09/19/2018 Patient Education: Patient Medication Summary Completed 09/19/2018 Appointment: Marily Valerio WPtel: [address] [place], [place] [phone] (15 min) Moderate 09/16/2018 Patient Education: Patient Medication Summary Completed 06/27/2018 Visit Plan: Lung nodule -right lung -on surveillance -patient also has history of left lung cancer with lobectomy -does not want to go to for oncology -wants to see Dr Mata at [facility] in [place] -will send referral Lumbar radiculopathy -rx for gabapentin provided and instructed on use - recommend patient return to Dr Herrera to discussed epidural injections HTN-controlled- no changes Tobacco use-patient continues to smoke and is not interested in quitting -smoking cessation encouraged 06/16/2018 Appointment: [phone] [phone] (30 min) Complex 06/16/2018 Patient Education: Patient [...] PT 03/25/2018 Appointment: [phone] [phone] (15 min) Moderate 03/25/2018 Patient Education: Patient [...] vs PT 11/25/2017 Appointment: Marily Valerio WPtel: [address] [place], [place] [phone] (15 min) Moderate 11/25/2017 Patient Education: Patient Medication Summary Completed 11/25/2017 Care Plan: X-RAY EXAM L-S SPINE 2/3 S LOINC : 12348-9 Pending 11/25/2017 Care Plan: X-RAY EXAM NECK SPINE 2-3 LOINC : 37419-9 Pending 11/25/2017 Appointment: Marily Valerio WPtel: [address] [place], [place] [phone] (15 min) Moderate 11/02/2017 Visit Plan: Hypertension [...] Dr Ryan 07/09/2017 Appointment: Marily Valerio WPtel: [phone] (15 min) Moderate 07/09/2017 Patient Education: Patient Medication Summary Completed 07/09/2017 Patient Education: Smoking and Tobacco Addiction Completed 07/09/2017 Appointment: Marily Valerio WPtel: [address] [place], [place] [phone] (15 min) Moderate 07/08/2017 Visit Plan: Gas and bloating-cut out dairy x 2 weeks-increase gas x to TID-call if symptoms uncontrolled Rash-rx for nystatin powder provided-keep clean/dry-call if does not resolve or if any worse 04/29/2017 Appointment: Marily Valerio WPtel: [phone] (15 min) Moderate [...] nicotine patches 01/07/2017 Appointment: Marily Valerio WPtel: [address] [place], [place] [phone] (15 min) Moderate 01/07/2017 Patient Education: Patient Medication Summary Completed 01/07/2017 Patient Education: Smoking and Tobacco Addiction Completed 01/07/2017 Patient Education: Hypertension Completed 01/07/2017 Appointment: Marily Valerio WPtel: [phone] (30 min) Complex [...] Ryan in 09/08/2016 Appointment: Marily Valerio WPtel: [phone] (15 min) Moderate 09/08/2016 Patient Education: Patient [...] bone density 05/11/2016 Appointment: Marily Valerio WPtel: [phone] (15 min) Moderate 05/11/2016 Patient Education: Patient [...] MRI LUMBAR SPINE W/O DYE LOINC : 17081-0 Cancelled 01/17/2016 Visit Plan: Continued Low back [...] they worsen. 12/18/2015 Appointment: Marily Valerio WPtel: [phone] (30 min) Complex 12/18/2015 Patient Education: Patient [...] they worsen. 12/16/2015 Appointment: Joy Flores WPtel: [address] [place] [address] (15 min) Moderate 12/16/2015 Patient Education: Patient [...] left upper lobe removed at [facility] this to schedule Tobacco use-no cigarettes since [...] blood pressure readings at home. Arthritis of jssb-plai-bdbtj mobic-monitor symptoms-check labs Left lung nodule- most recent scan shows slight increase in size and needs further evaluation- managed by Dr Corea-appt is this 08/26/2015 Appointment: [facility] Valerio WPtel: [phone] [phone] [place] (30 min) Complex 08/26/2015 Patient Education: Patient Medication Summary Completed 08/26/2015 Patient Education: Hypertension Completed 08/26/2015 [facility]ment: [phone] [place] (15 min) Moderate 08/15/2015 Appointment: [facility] Gonzalez [facility]Ptel[phone] [facility] [place] (15 min) Moderate 08/15/2015 Visit [...] CT scan. 02/12/2015 Appointment: [facility] Gonzalez [facility]Ptel[phone] [facility] Follow up 02/12/2015 Patient Education: Patient [...] bloating-use dicyclomine prn Elevated blood sugar-check Hgb Z9Q-hja back on sweets/carbs 07/23/2014 Appointment: Follow up [...] home. 01/25/2014 Appointment: Marily Valerio WPtel: [phone] [phone] Follow up 01/25/2014 Patient Education: Patient Medication [...] an EGD by Dr. Mckeon. 10/23/2013 Appointment: eTresa Gonzalez WPtel: [phone] [facility] Follow up 10/23/2013 Patient Education: Patient [...] any worse. 08/21/2013 Appointment: Marily Valerio WPtel: [phone] [phone] Follow up 08/21/2013 [...] with Dr Combs as scheduled Tingling of aitrhkrreex-jweidjit-fovmc labs including vitamin b12 and vitamin d Elevated blood sugar-check hgb a1c 07/20/2013 Appointment: Marily Valerio WPtel: [phone] Follow up 07/20/2013 Patient Education: Patient Medication [...] quit date. 06/22/2013 Appointment: Marily Valerio WPtel: [phone] [place] New Patient 06/22/2013 Patient Education: Patient Medication Summary Completed 06/22/2013 Patient Education: Hypertension Completed 06/22/2013 Patient Education: Smoking and Tobacco Addiction Completed 06/22/2013 Instructions Comment fasting labs at next appt schedule TA [...] sugars-check fasting labs Intermittent claudication -check TA Monitor your blood pressure at home and [...] blood pressure readings at home. Arthritis of wokl-cguc-ymbbr mobic-monitor symptoms-check labs Left lung nodule-most recent [...] Wednesday-start wellbutrin to aide with cessation . Gas and bloating-cut out dairy x 2 weeks-increase gas x to TID-call if symptoms uncontrolled Rash-rx for nystatin powder provided-keep clean/dry-call if does not resolve or if any worse Dr Mata at [facility] ( or wednesday) gabapentin 100mg at bedtime screening mammogram make an appt with Dr Herrera to discuss epidural injections . Lung nodule -right lung -on surveillance -patient also has history of left lung cancer with lobectomy -does not want to go to for oncology -wants to see Dr Mata at [facility] in [place] -will send referral Lumbar radiculopathy -rx for gabapentin provided and instructed on use - recommend patient return to Dr Herrera to discussed epidural injections HTN-controlled- no changes Tobacco use-patient continues to smoke and is not interested in quitting - smoking cessation encouraged . Joint Injection - Right SI joint [...] do not improve or if they worsen. I GAVE YOU SAMPLES OF DEXILANT [...] with Dr Combs as scheduled Tingling of qhdgpadaysj-ldmibxpp-kgmho labs including vitamin b12 and vitamin d Elevated blood sugar-check hgb a1c . Bronchitis - acute case of bronchitis identified. Pt has been given antibiotics, breathing treatments as appropriate, and pt has been instructed to call if symptoms are not improved, or if symptoms acutely worsen. 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 Hypertension [...] change in blood pressure readings at home. check Hbg A1C . Hypertension - well [...] bloating-use dicyclomine prn Elevated blood sugar-check Hgb R5O-aut back on sweets/carbs . Hypertension - well controlled - continue with current medications, continue with no added salt diet. Pt has been encouraged to exercise daily. The pt has been advised to call the office if there are any acute concerns about change in blood pressure readings at home. Lung cancer-PREM lobectomy 06/2017-followed by [facility] and Dr Ryan . Dysuria-vaginal burning-UA positive for blood and leukocystes today in the office-will send for culture and proceed as indicated. Diflucan sent to patient's pharmacy and instructed on use. Patient verbalized understanding of plan. . Medicare Exam - today we discussed [...] vascular studies . Hypertension - well controlled at home [...] her for an EGD by Dr. Mckeon. Stop the Statin today, start Co Q [...] Low back pain-spinal stenosis-patient to start PT Nexium SAMPLES-start when diexilant is gone. After [...]
--- OUTSIDE RECORDS SUMMARY | 2019-03-31 09:36 | XMS REPORT | CCD ---
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 Unknown Has never used illegal drugs 06/22/2013 Allergies, Adverse Reactions, Alerts Substance Reaction Codes Entered Date Inactivated Date Status lisinopril cough, RxNorm: 18381 06/22/2013 No Inactive Date Active SULFA (SULFONAMIDE [...] Instructions nystatin 100,000 unit/gram topical cream RxNorm: 907871 1 Application TOP BID 09/19/2018 10/02/2018 Active mix with betamethasone Diovan 320 mg tablet RxNorm: 014678 1 Tablet(s) PO daily 09/19/2018 03/17/2019 Active dicyclomine 20 mg tablet RxNorm: 904833 1 Tablet(s) PO TID PRN TAKE ONE CAPSULE BY MOUTH THREE TIMES A DAY NEEDED 09/19/2018 09/02/2021 Active betamethasone dipropionate 0.05 % topical cream RxNorm: 349563 1 Application TOP BID 09/19/2018 10/02/2018 Active metoprolol tartrate 100 mg tablet RxNorm: 023743 1 Tablet(s) PO BID TAKE ONE TABLET BY MOUTH TWICE A DAY 09/19/2018 06/15/2019 Active dicyclomine 10 mg capsule RxNorm: 681176 1 Capsule(s) PO TID PRN TAKE ONE CAPSULE BY MOUTH THREE TIMES A DAY NEEDED 09/19/2018 09/18/2018 Inactive gabapentin 100 mg capsule RxNorm: 870583 1 Capsule(s) PO UD 06/16/2018 07/15/2018 Inactive 1 po q HS x 1 week then 2 po q HS x 1 week then increase to 3 q HS nystatin 100,000 unit/gram topical cream RxNorm: 098577 1 Application TOP BID 06/16/2018 06/29/2018 Inactive amlodipine 10 mg tablet RxNorm: 491013 TAKE ONE TABLET BY MOUTH EVERY DAY 05/26/2018 11/21/2018 Active Lipitor 10 mg tablet RxNorm: 826823 Tablet(s) TAKE ONE TABLET BY MOUTH EVERY OTHER DAY 05/25/2018 02/18/2019 Active Lexapro 20 mg tablet RxNorm: 811800 1 Tablet(s) PO QPM 03/25/2018 09/20/2018 Active nystatin 100,000 unit/gram topical cream RxNorm: 804104 1 Application TOP BID 03/25/2018 04/07/2018 Inactive olmesartan 40 mg tablet RxNorm: 533199 1 Tablet(s) PO daily 03/25/2018 09/18/2018 Inactive Lipitor 10 mg tablet RxNorm: 677887 TAKE ONE TABLET BY MOUTH EVERY OTHER DAY 03/18/2018 12/11/2018 Active Diovan 320 mg tablet RxNorm: 099794 TAKE ONE TABLET BY MOUTH DAILY 03/18/2018 03/24/2018 Inactive metoprolol tartrate 100 mg tablet RxNorm: 207423 TAKE ONE TABLET BY MOUTH TWICE A DAY 01/05/2018 09/18/2018 Inactive Diovan 320 mg tablet RxNorm: 411137 TAKE ONE TABLET BY MOUTH EVERY DAY 12/16/2017 03/17/2018 Inactive Lexapro 10 mg tablet RxNorm: 122637 1 Tablet(s) PO QPM 11/25/2017 03/24/2018 Inactive amlodipine 10 mg tablet RxNorm: 269645 TAKE ONE TABLET BY MOUTH EVERY DAY 11/15/2017 05/13/2018 Inactive Lipitor 10 mg tablet RxNorm: 467404 TAKE ONE TABLET BY MOUTH EVERY OTHER DAY 10/18/2017 03/17/2018 Inactive dicyclomine 10 mg capsule RxNorm: 685435 TAKE ONE CAPSULE BY MOUTH THREE TIMES A DAY NEEDED 08/12/2017 09/18/2018 Inactive Lipitor 10 mg tablet RxNorm: 095131 TAKE ONE TABLET BY MOUTH EVERY OTHER DAY 07/12/2017 10/17/2017 Inactive Diovan 320 mg tablet RxNorm: 758186 TAKE ONE TABLET BY MOUTH EVERY DAY 06/09/2017 12/05/2017 Inactive dicyclomine 10 mg capsule RxNorm: 668700 TAKE ONE CAPSULE BY MOUTH THREE TIMES A DAY NEEDED 05/05/2017 08/02/2017 Inactive nystatin 100,000 unit/gram topical powder RxNorm: 188771 1 Application TOP BID 04/29/2017 05/08/2017 Inactive Diovan 320 mg tablet RxNorm: 616728 TAKE ONE TABLET BY MOUTH EVERY DAY 03/10/2017 06/07/2017 Inactive dicyclomine 10 mg capsule RxNorm: 447288 TAKE ONE CAPSULE BY MOUTH THREE TIMES A DAY NEEDED 02/04/2017 05/04/2017 Inactive amlodipine 10 mg tablet RxNorm: 116658 TAKE ONE TABLET BY MOUTH EVERY DAY 02/04/2017 10/31/2017 Inactive Lipitor 10 mg tablet RxNorm: 651742 TAKE ONE TABLET BY MOUTH EVERY OTHER DAY 02/04/2017 07/11/2017 Inactive Fish Oil 1,000 mg capsule RxNorm: 1 Capsule(s) PO TID 01/07/2017 No Stop Date Active metoprolol tartrate 100 mg tablet RxNorm: 148102 1 Tablet(s) PO BID TAKE ONE TABLET BY MOUTH TWICE A DAY 01/07/2017 01/01/2018 Inactive Diovan 320 mg tablet RxNorm: 751089 TAKE ONE TABLET BY MOUTH EVERY DAY 11/05/2016 03/04/2017 Inactive Lipitor 10 mg tablet RxNorm: 299408 1 Tablet(s) PO every other day 09/08/2016 01/05/2017 Inactive dc livalo dicyclomine 10 mg capsule RxNorm: 562599 TAKE ONE CAPSULE BY MOUTH THREE TIMES A DAY NEEDED 07/30/2016 01/25/2017 Inactive Diovan 320 mg tablet RxNorm: 530046 TAKE ONE TABLET BY MOUTH EVERY DAY 06/15/2016 11/04/2016 Inactive Lipitor 10 mg tablet RxNorm: 947203 1 Tablet(s) PO every other day 05/25/2016 05/24/2016 Inactive dc livalo Lipitor 10 mg tablet RxNorm: 117403 1 Tablet(s) PO every other day 05/25/2016 09/07/2016 Inactive dc livalo Livalo 2 mg tablet RxNorm: 416759 1 Tablet(s) PO daily 05/20/2016 05/19/2016 Inactive Livalo 2 mg tablet RxNorm: 220854 1 Tablet(s) PO daily 05/20/2016 05/24/2016 Inactive Celexa 10 mg tablet RxNorm: 274119 1 Tablet(s) PO daily 02/10/2016 11/24/2017 Inactive amlodipine 10 mg tablet RxNorm: 617847 TAKE ONE TABLET BY MOUTH EVERY DAY 02/03/2016 02/02/2016 Inactive amlodipine 10 mg tablet RxNorm: 086249 TAKE ONE TABLET BY MOUTH EVERY DAY 02/03/2016 01/27/2017 Inactive amlodipine 10 mg tablet RxNorm: 047458 TAKE ONE TABLET BY MOUTH EVERY DAY 02/03/2016 04/27/2017 Inactive metoprolol tartrate 100 mg tablet RxNorm: 964623 TAKE ONE TABLET BY MOUTH TWICE A DAY 2016 01/06/2017 Inactive Diovan 320 mg tablet RxNorm: 843217 TAKE ONE TABLET BY MOUTH EVERY DAY 12/19/2015 06/14/2016 Inactive Wellbutrin XL 150 mg 24 hr tablet, extended release RxNorm: 055471 1 Tablet(s) PO daily 12/09/2015 02/09/2016 Inactive tramadol 50 mg tablet RxNorm: 916050 1-2 Tablet(s) PO Q6 PRN 12/09/2015 11/24/2017 Inactive Mobic 7.5 mg tablet RxNorm: 157821 TAKE ONE TABLET BY MOUTH DAILY 11/11/2015 11/24/2017 Inactive dicyclomine 10 mg capsule RxNorm: 792798 TAKE ONE CAPSULE BY MOUTH THREE TIMES A DAY NEEDED 11/11/2015 07/29/2016 Inactive Wellbutrin 75 mg tablet RxNorm: 468675 1 Tablet(s) PO BID 10/28/2015 12/08/2015 Inactive simvastatin 20 mg tablet RxNorm: 939496 TAKE ONE TABLET BY MOUTH EVERY DAY 09/05/2015 2016 Inactive Mobic 7.5 mg tablet RxNorm: 390853 1 Tablet(s) PO daily 08/26/2015 11/10/2015 Inactive estradiol 0.5 mg tablet RxNorm: 369768 TAKE ONE TABLET BY MOUTH EVERY DAY 06/11/2015 03/06/2016 Inactive amlodipine 10 mg tablet RxNorm: 099239 TAKE ONE TABLET BY MOUTH EVERY DAY 04/19/2015 01/13/2016 Inactive dicyclomine 10 mg capsule RxNorm: 068871 TAKE ONE CAPSULE BY MOUTH THREE TIMES A DAY NEEDED 04/19/2015 10/15/2015 Inactive simvastatin 20 mg tablet RxNorm: 899433 TAKE ONE TABLET BY MOUTH EVERY DAY 02/21/2015 08/19/2015 Inactive Diovan 320 mg tablet RxNorm: 599341 TAKE ONE TABLET BY MOUTH EVERY DAY 12/19/2014 12/18/2015 Inactive cephalexin 500 mg capsule RxNorm: 000003 1 Capsule(s) PO TID 11/13/2014 11/19/2014 Inactive prednisone 10 mg tablet RxNorm: 539000 3 Tablet(s) PO daily 11/13/2014 11/17/2014 Inactive prednisone 10 mg tablet RxNorm: 634915 3 Tablet(s) PO daily 11/12/2014 11/12/2014 Inactive Kenalog 40 mg/mL suspension for injection RxNorm: 3973749 Milliliter(s) Inj 11/12/2014 11/12/2014 Inactive cephalexin 500 mg capsule RxNorm: 793646 1 Capsule(s) PO TID 11/12/2014 11/12/2014 Inactive ceftriaxone 500 mg solution for injection RxNorm: 7960466 Inj 11/12/2014 11/12/2014 Inactive dicyclomine 10 mg capsule RxNorm: 415703 TAKE ONE CAPSULE BY MOUTH THREE TIMES A DAY NEEDED 11/08/2014 04/18/2015 Inactive metoprolol tartrate 100 mg tablet RxNorm: 839289 TAKE ONE TABLET BY MOUTH TWICE A DAY 10/18/2014 2015 Inactive metoprolol tartrate 100 mg tablet RxNorm: 642415 1 Tablet(s) PO BID 10/18/2014 10/12/2015 Inactive simvastatin 20 mg tablet RxNorm: 164061 TAKE ONE TABLET BY MOUTH EVERY DAY 08/21/2014 02/16/2015 Inactive Diovan 320 mg tablet RxNorm: 433464 TAKE ONE TABLET BY MOUTH EVERY DAY 08/21/2014 12/18/2014 Inactive Carafate 1 gram tablet RxNorm: 015631 1 Tablet(s) PO AC & HS MIX WITH 30ML WATER 07/23/2014 11/24/2017 Inactive dissolve in water and drink as slurry dicyclomine 10 mg capsule RxNorm: 780304 1 Capsule(s) PO TID PRN 07/23/2014 10/20/2014 Inactive simvastatin 20 mg tablet RxNorm: 935887 TAKE ONE TABLET BY MOUTH EVERY DAY 06/07/2014 08/20/2014 Inactive estradiol 0.5 mg tablet RxNorm: 884285 TAKE ONE TABLET BY MOUTH EVERY DAY 05/16/2014 05/10/2015 Inactive amlodipine 10 mg tablet RxNorm: 975841 TAKE ONE TABLET BY MOUTH EVERY DAY 05/16/2014 04/18/2015 Inactive Diovan 320 mg tablet RxNorm: 171135 TAKE ONE TABLET BY MOUTH EVERY DAY 03/26/2014 08/20/2014 Inactive Diflucan 150 mg tablet RxNorm: 729294 1 Tablet(s) PO daily 03/21/2014 03/27/2014 Inactive simvastatin 20 mg tablet RxNorm: 655739 TAKE ONE TABLET BY MOUTH EVERY DAY 03/02/2014 05/30/2014 Inactive estradiol 0.5 mg tablet RxNorm: 707116 TAKE ONE TABLET BY MOUTH EVERY DAY 02/16/2014 05/15/2014 Inactive amlodipine 10 mg tablet RxNorm: 687767 TAKE ONE TABLET BY MOUTH EVERY DAY 02/16/2014 05/15/2014 Inactive pantoprazole 40 mg tablet,delayed release RxNorm: 188963 2 Tablet(s) PO daily 01/25/2014 02/23/2014 Inactive simvastatin 20 mg tablet RxNorm: 001004 Tablet(s) PO TAKE ONE TABLET BY MOUTH EVERY DAY 11/30/2013 03/01/2014 Inactive amlodipine 10 mg tablet RxNorm: 426727 Tablet(s) PO TAKE ONE TABLET BY MOUTH EVERY DAY 11/16/2013 02/15/2014 Inactive metoprolol tartrate 100 mg tablet RxNorm: 748947 1 Tablet(s) PO BID 10/23/2013 10/17/2014 Inactive Diovan 320 mg tablet RxNorm: 547145 Tablet(s) PO TAKE ONE TABLET BY MOUTH EVERY DAY 09/28/2013 03/25/2014 Inactive Carafate 1 gram tablet RxNorm: 405544 1 Tablet(s) PO TID MIX WITH 30ML WATER 09/20/2013 12/18/2013 Inactive estradiol 0.5 mg tablet RxNorm: 254493 1 Tablet(s) PO daily 08/21/2013 02/15/2014 Inactive amlodipine 10 mg tablet RxNorm: 803452 1 Tablet(s) PO daily 08/21/2013 11/15/2013 Inactive simvastatin 20 mg tablet RxNorm: 087799 1 Tablet(s) PO daily 08/21/2013 11/18/2013 Inactive Diovan 320 mg tablet RxNorm: 207841 1 Tablet(s) PO daily 08/21/2013 09/19/2013 Inactive Carafate 1 gram tablet RxNorm: 232340 1 Tablet(s) PO TID MIX WITH 30ML WATER 08/21/2013 09/19/2013 Inactive Diovan 320 mg tablet RxNorm: 231619 1 Tablet(s) PO daily 07/20/2013 08/18/2013 Inactive amlodipine 10 mg tablet RxNorm: 593511 1 Tablet(s) PO daily 07/20/2013 08/18/2013 Inactive estradiol 0.5 mg tablet RxNorm: 119523 1 Tablet(s) PO daily 07/20/2013 08/18/2013 Inactive metoprolol tartrate 100 mg tablet RxNorm: 459950 1 Tablet(s) PO BID 06/22/2013 10/22/2013 Inactive Wellbutrin XL 150 mg 24 hr tablet, extended release RxNorm: 265726 1 Tablet(s) PO daily 06/22/2013 07/19/2013 Inactive pantoprazole 40 mg tablet,delayed release RxNorm: 699920 1 Tablet(s) PO daily No Start Date Active calcium 500 mg tablet RxNorm: 2 Tablet(s) PO BID No Start Date Active glucosamine and qlcqkophbkq-ixpgigri-lydf#3 oral RxNorm: 2837 oral No Start Date Active multivitamin tablet RxNorm: 1 Tablet(s) PO daily No Start Date Active aspirin 81 mg tablet RxNorm: 383791 1 Tablet(s) PO daily No Start Date Active Probiotic oral RxNorm: oral No Start Date Active Vitamin D3 1,000 unit capsule RxNorm: 310148 1 Capsule(s) PO daily No Start Date Active Eliquis 5 mg tablet RxNorm: 3312396 1 Tablet(s) PO BID No Start Date Active simvastatin 20 mg tablet RxNorm: 069869 1 Tablet(s) PO daily No Start Date 08/20/2013 Inactive hyoscyamine 0.125 mg sublingual tablet RxNorm: 0595474 1 Tablet(s) SL TID No Start Date 07/22/2014 Inactive metoprolol tartrate 100 mg tablet RxNorm: 983869 1 Tablet(s) PO daily No Start Date 06/21/2013 Inactive amlodipine 10 mg tablet RxNorm: 865693 1 Tablet(s) PO daily No Start Date 07/19/2013 Inactive Diovan 320 mg tablet RxNorm: 523052 1 Tablet(s) PO daily No Start Date 07/19/2013 Inactive Fish Oil 1,000 mg capsule RxNorm: 1 Capsule(s) PO BID No Start Date 01/06/2017 Inactive omeprazole 20 mg tablet,delayed release RxNorm: 745641 1 Tablet(s) PO daily No Start Date 01/25/2014 Inactive estradiol 0.5 mg tablet RxNorm: 343191 1 Tablet(s) PO daily No Start Date 07/19/2013 Inactive Medication Administered Medication Codes Instructions Start Date Status Kenalog 40 mg/mL suspension for injection RxNorm: 0053876 Milliliter 11/12/2014 No longer Active ceftriaxone 500 mg solution for injection RxNorm: 6168330 11/12/2014 No longer Active Immunizations Vaccine Codes [...] Lipid Ord30 C/HDL 3.5 Ratio 11/25/2017 %Hba1C Xxu066 % HbA1c 52911- 6 5.7 % 11/25/2017 %Hba1C Zsp973 Gluc Ave 117 mg/dL 11/25/2017 Tsh Ord6 TSH (3rd IS) 1.06 uIU/mL 11/25/2017 Comp Metabolic Xra643 NA 141 mEq/L 11/25/2017 Comp Metabolic Iwa623 K 4.2 mEq/L 11/25/2017 Comp Metabolic Njf460 CL 103 mEq/L 11/25/2017 Comp Metabolic Euv996 CO2 31.0 mEq/L 11/25/2017 Comp Metabolic Vbz750 ANION GAP 11 11/25/2017 Comp Metabolic Ntl511 GLUCOSE 117 mg/dL 11/25/2017 Comp Metabolic Uoq385 Creat 0.8 mg/dL 11/25/2017 Comp Metabolic Ucr233 eGFR 74 ml/min/1.73m2 11/25/2017 Comp Metabolic Pip987 BUN 18 mg/dL 11/25/2017 Comp Metabolic Bne495 B/C Ratio 22.2 Ratio 11/25/2017 Comp Metabolic Ecs209 CALCIUM 9.4 mg/dL 11/25/2017 Comp Metabolic Qon922 ALK PHOS 62 U/L 11/25/2017 Comp Metabolic Mdz993 AST(SGOT) 21 U/L 11/25/2017 Comp Metabolic Nyt730 ALT(SGPT) 18 U/L 11/25/2017 Comp Metabolic Bil558 BILI T 0.4 mg/dL 11/25/2017 Comp Metabolic Lcw981 ALBUMIN 4.0 g/dL 11/25/2017 Comp Metabolic Otx193 TPRO 6.1 g/dL 11/25/2017 Comp Metabolic Cxy061 GLOB 2.1 g/dL 11/25/2017 Comp Metabolic Plv829 A/G Ratio 1.9 Ratio 11/25/2017 Comp Metabolic Pkg357 Osmo 284 mOsmo 11/25/2017 Cbc With Differential [...] 37.4 % 11/25/2017 Cbc With Differential Ord2 [place]% 11.2 % 11/25/2017 Cbc With Differential Ord2 [...] 2.03 K/ul 11/25/2017 Cbc With Differential Ord2 [place] ABS# 0.6 K/ul 11/25/2017 Cbc With Differential [...] 97.9 fl 05/11/2016 Cbc With Differential Ord2 [place]% 9.5 % 05/11/2016 Cbc With Differential Ord2 [...] 1.76 K/ul 05/11/2016 Cbc With Differential Ord2 [place] ABS# 0.4 K/ul 05/11/2016 Cbc With Differential Ord2 Eos ABS# 0.1 K/ul 05/11/2016 Cbc With Differential Ord2 Baso ABS# 0.0 K/ul 05/11/2016 Comp Metabolic Eft586 NA 139 mEq/L 05/11/2016 Comp Metabolic Tgs567 K 4.6 mEq/L 05/11/2016 Comp Metabolic Zcz637 CL 104 mEq/L 05/11/2016 Comp Metabolic Trp042 CO2 30.0 mEq/L 05/11/2016 Comp Metabolic Fis818 ANION GAP 10 05/11/2016 Comp Metabolic Vlt298 GLUCOSE 113 mg/dL 05/11/2016 Comp Metabolic Fit149 Creat 0.8 mg/dL 05/11/2016 Comp Metabolic Fib977 eGFR 74 ml/min/1.73m2 05/11/2016 Comp Metabolic Var279 BUN 16 mg/dL 05/11/2016 Comp Metabolic Fdz231 B/C Ratio 19.8 Ratio 05/11/2016 Comp Metabolic Ozh938 CALCIUM 10.1 mg/dL 05/11/2016 Comp Metabolic Omx264 ALK PHOS 44 U/L 05/11/2016 Comp Metabolic Inm125 AST(SGOT) 20 U/L 05/11/2016 Comp Metabolic Qnm661 ALT(SGPT) 17 U/L 05/11/2016 Comp Metabolic Jqb995 BILI T 0.4 mg/dL 05/11/2016 Comp Metabolic Wpo965 ALBUMIN 4.1 g/dL 05/11/2016 Comp Metabolic Hvn247 TPRO 6.5 g/dL 05/11/2016 Comp Metabolic Sug749 GLOB 2.4 g/dL 05/11/2016 Comp Metabolic Mmx602 A/G Ratio 1.8 Ratio 05/11/2016 Comp Metabolic Hfe273 Osmo 280 mOsmo 05/11/2016 Tsh Ord6 hTSH II 0.96 uIU/mL 05/11/2016 Lipid Ord30 CHOL 283 mg/dL 05/11/2016 Lipid Ord30 HDL 53.0 mg/dl 05/11/2016 Lipid Ord30 TRIG 144 mg/dL 05/11/2016 Lipid Ord30 LDL 201 mg/dL 05/11/2016 Lipid Ord30 C/HDL 5.3 Ratio 05/11/2016 C-Reactive Protein Qnt Crqnt CRP 0.5 mg/dl 12/18/2015 Vitamin D 25 Oh Qno1020 VITAMIN D, 25 HYDROXY 84.50 ng/mL 12/18/2015 Comp Metabolic Zej963 NA 139 mEq/L 12/18/2015 Comp Metabolic Fia477 K 3.8 mEq/L 12/18/2015 Comp Metabolic Tpd616 CL 103 mEq/L 12/18/2015 Comp Metabolic Icd649 CO2 31.0 mEq/L 12/18/2015 Comp Metabolic Yeg108 ANION GAP 9 12/18/2015 Comp Metabolic Rhq855 GLUCOSE 107 mg/dL 12/18/2015 Comp Metabolic Rhi567 Creat 0.8 mg/dL 12/18/2015 Comp Metabolic Oth273 eGFR 80 ml/min/1.73m2 12/18/2015 Comp Metabolic Rew326 BUN 19 mg/dL 12/18/2015 Comp Metabolic Phm341 B/C Ratio 25.0 Ratio 12/18/2015 Comp Metabolic Dls530 CALCIUM 9.1 mg/dL 12/18/2015 Comp Metabolic Ptd518 ALK PHOS 42 U/L 12/18/2015 Comp Metabolic Kym064 AST(SGOT) 17 U/L 12/18/2015 Comp Metabolic Zdo629 ALT(SGPT) 18 U/L 12/18/2015 Comp Metabolic Rcu074 BILI T 0.3 mg/dL 12/18/2015 Comp Metabolic Wiz867 ALBUMIN 3.8 g/dL 12/18/2015 Comp Metabolic Oel377 TPRO 5.9 g/dL 12/18/2015 Comp Metabolic Jzn488 GLOB 2.1 g/dL 12/18/2015 Comp Metabolic Lkl777 A/G Ratio 1.8 Ratio 12/18/2015 Comp Metabolic Mac180 Osmo 280 mOsmo 12/18/2015 Sed Rate Ord21 [...] 32.0 pg 12/18/2015 Cbc With Differential Ord2 [place]% 9.3 % 12/18/2015 Cbc With Differential Ord2 [...] 1.45 K/ul 12/18/2015 Cbc With Differential Ord2 [place] ABS# 0.5 K/ul 12/18/2015 Cbc With Differential [...] 31.6 pg 09/02/2015 Cbc With Differential Ord2 [place]% 8.8 % 09/02/2015 Cbc With Differential Ord2 [...] 1.53 K/ul 09/02/2015 Cbc With Differential Ord2 [place] ABS# 0.5 K/ul 09/02/2015 Cbc With Differential Ord2 Eos ABS# 0.1 K/ul 09/02/2015 Cbc With Differential Ord2 Baso ABS# 0.0 K/ul 09/02/2015 Cbc With Differential Ord2 New Analyzer Notice Please note new ref ranges starting 08-14-2015 due to implemntation of new five part differential hematolgy analyzer. 09/02/2015 Tsh Ord6 hTSH II 1.41 uIU/mL 09/02/2015 Comp Metabolic Tjs254 NA 136 mEq/L 09/02/2015 Comp Metabolic Igu149 K 4.5 mEq/L 09/02/2015 Comp Metabolic Psz836 CL 103 mEq/L 09/02/2015 Comp Metabolic Szi397 CO2 27.0 mEq/L 09/02/2015 Comp Metabolic Gno316 ANION GAP 11 09/02/2015 Comp Metabolic Jni364 GLUCOSE 109 mg/dL 09/02/2015 Comp Metabolic Txs783 Creat 1.0 mg/dL 09/02/2015 Comp Metabolic Jee271 eGFR 62 ml/min/1.73m2 09/02/2015 Comp Metabolic Uzj266 BUN 21 mg/dL 09/02/2015 Comp Metabolic Bvj870 B/C Ratio 22.1 Ratio 09/02/2015 Comp Metabolic Wqy203 CALCIUM 9.3 mg/dL 09/02/2015 Comp Metabolic Yyd653 ALK PHOS 37 U/L 09/02/2015 Comp Metabolic Pfl244 AST(SGOT) 19 U/L 09/02/2015 Comp Metabolic Fcx478 ALT(SGPT) 16 U/L 09/02/2015 Comp Metabolic Toz780 BILI T 0.4 mg/dL 09/02/2015 Comp Metabolic Dcb874 ALBUMIN 4.1 g/dL 09/02/2015 Comp Metabolic Rei346 TPRO 6.3 g/dL 09/02/2015 Comp Metabolic Eru263 GLOB 2.2 g/dL 09/02/2015 Comp Metabolic Msn763 A/G Ratio 1.8 Ratio 09/02/2015 Comp Metabolic Dxv748 Osmo 276 mOsmo 09/02/2015 A1C HPLC 0043041 A1C HPLC 48205-6 5.6 % 07/23/2014 VIT D TOTL 2940353 VIT D TOTL 52 NG/ML 07/20/2013 GFR CALC 7932940 GFR AA >60 ML/MIN 07/20/2013 GFR CALC 1725914 GFR NON-AA >60 ML/MIN 07/20/2013 CBC 2553930 WBC 5.9 10e9/L 07/20/2013 CBC 3300276 RBC 4.79 10e12/L 07/20/2013 CBC 7295886 HGB 15.5 g/dL 07/20/2013 CBC 9714835 HCT DET 46.1 % 07/20/2013 CBC 1350389 MCV 96.2 fL 07/20/2013 CBC 9527332 MCH 32.4 pg 07/20/2013 CBC 6820935 MCHC 33.6 g/dL 07/20/2013 CBC 3574853 PLT 286 10e9/L 07/20/2013 CBC 3015536 MPV 10.8 fL 07/20/2013 CBC 4787434 ERINN % 66.1 % 07/20/2013 CBC 6096905 LY % 24.3 % 07/20/2013 CBC 7252857 MON % 8.1 % 07/20/2013 CBC 7444458 EOS % 1.2 % 07/20/2013 CBC 7826293 BASO % 0.3 % 07/20/2013 CBC 6081947 RDW 12.7 % 07/20/2013 CBC 2110414 ABS ERINN 3.90 10e9/L 07/20/2013 CBC 1916336 ABS LYMPH 1.43 10e9/L 07/20/2013 CBC 0916448 ABS MONO 0.48 10e9/L 07/20/2013 CBC 3910248 ABS EOS 0.07 10e9/L 07/20/2013 CBC 8528268 ABS BASO 0.02 10e9/L 07/20/2013 CBC 7684213 RDW-SD 44.1 fL 07/20/2013 A1C HPLC 1960432 A1C HPLC 64085-6 5.9 % 07/20/2013 LIPID GRP HDL TEST 54 MG/DL 07/20/2013 LIPID GRP TRIG 98 MG/DL 07/20/2013 LIPID GRP TEST LDL 95 MG/DL 07/20/2013 LIPID GRP CHOL 169 MG/DL 07/20/2013 LIPID GRP RCHOL/HDL 3.13 RATIO 07/20/2013 TSH 1801537 TSH 1.032 uIU/ML 07/20/2013 CHEM 14 9871315 AST 18 U/L 07/20/2013 CHEM 14 4938285 ALT 13 IU/L 07/20/2013 CHEM 14 5659069 BUN 19 MG/DL 07/20/2013 CHEM 14 7826239 ALBUMIN 4.5 GM/DL 07/20/2013 CHEM 14 3365552 CHLORIDE 105 MMOL/L 07/20/2013 CHEM 14 8294586 BILI TOT 0.5 MG/DL 07/20/2013 CHEM 14 2614072 ALK PHOS 40 U/L 07/20/2013 CHEM 14 9661471 SODIUM 137 MMOL/L 07/20/2013 CHEM 14 6327704 CREATININE 0.76 MG/DL 07/20/2013 CHEM 14 1021886 CALCIUM 10.0 MG/DL 07/20/2013 CHEM 14 2000018 POTASSIUM 4.6 MMOL/L 07/20/2013 CHEM 14 1158625 PROT TOT 6.5 GM/DL 07/20/2013 CHEM 14 1890519 GLUCOSE 118 MG/DL 07/20/2013 CHEM 14 6471140 BICARB 26 MMOL/L 07/20/2013 CHEM 14 9947094 ANION GAP 6 MEQ/L 07/20/2013 VIT B 12 2914118 VIT B 12 492 PG/ML 07/20/2013 Review [...] SUBSEQ VISIT CPT- 4: G0439 12/03/2017 TOBACCO-USE ENROBER 3-[address]: 903091497 CPT-4: G0436 09/08/2016 ADMIN INFLUENZA VIRUS VAC CPT-4: G0008 05/11/2016 PNEUMOCOCCAL VACC 13 SAULO IM Formatting Model/CDA Sections, Assigned to/Khalif Rafia SNOMED CT: 07522072 CPT-4: 10720Xuwkqvi 05/11/2016 ADMIN PNEUMOCOCCAL VACCINE SNOMED CT: 97903141 CPT-4: G0009 05/11/2016 FLU VACC 4 SAULO 3 YRS PLUS IM Formatting Model/CDA Sections, Assigned to/Khalif Rafia SNOMED CT: 67737354 CPT-4: 11827Lejmdrw 05/11/2016 TOBACCO-USE ENROBER 3-[address]: 737040482 CPT-4: G0436 02/10/2016 TRIAMCINOLONE ACET INJ NOS CPT-4: J3301 12/16/2015 DRAIN/INJECT JOINT/BURSA CPT-4: 13987 12/16/2015 TOBACCO-USE ENROBER 3-[address]: 718652708 CPT-4: G0436 12/09/2015 TOBACCO-USE ENROBER 3-[address]: 712115930 CPT-4: G0436 10/28/2015 THER/PROPH/DIAG INJ SC/IM CPT-4: 12169 11/12/2014 TRIAMCINOLONE ACET INJ NOS CPT-4: J3301 11/12/2014 ROCEPHIN, PER 250 MG CPT- 4: J0696 11/12/2014 ROUTINE VENIPUNCTURE CPT- 4: 08768 07/23/2014 URINALYSIS NONAUTO W/O SCOPE CPT-4: 84575 03/21/2014 ROUTINE VENIPUNCTURE CPT- 4: 02891 07/20/2013 PRESCRIP TRANSMIT VIA ERX SY CPT-4: G8553 07/20/2013 PRESCRIP TRANSMIT VIA ERX SY CPT-4: G8553 06/22/2013 PARTIAL REMOVAL OF LUNG CPT-4: 92533 Unknown Vital Signs Date Vital 09/19/2018 Blood Pressure 1: 140/70 Code: 8480-6 BMI: 31.6 Code: 61989-9 Heart Rate 1: 72 bpm Height: 5'5" SpO2: 96% Weight: 190 lbs 06/16/2018 Blood Pressure 1: 146/84 Code: 8480-6 BMI: 30.6 Code: 88486-1 Heart Rate 1: 68 bpm Height: 5'5" SpO2: 99% Weight: 184 lbs 03/25/2018 Blood Pressure 1: 144/80 Code: 8480-6 BMI: 30.0 Code: 63175-8 Heart Rate 1: 65 bpm Height: 5'5" SpO2: 98% Weight: 180 lbs 12/03/2017 Blood Pressure 1: 142/86 Code: 8480-6 BMI: 29.5 Code: 46836-2 Heart Rate 1: 74 bpm Height: 5'5" SpO2: 93% Weight: 177 lbs 11/25/2017 Blood Pressure 1: 142/84 Code: 8480-6 BMI: 29.5 Code: 19978-3 Heart Rate 1: 69 bpm Height: 5'5" SpO2: 99% Weight: 177 lbs 07/09/2017 Blood Pressure 1: 142/68 Code: 8480-6 BMI: 28.3 Code: 80992-4 Heart Rate 1: 48 bpm Height: 5'5" SpO2: 97% Weight: 170 lbs 04/29/2017 Blood Pressure 1: 148/86 Code: 8480-6 BMI: 28.6 Code: 79829-0 Heart Rate 1: 71 bpm Height: 5'5" SpO2: 95% Weight: 172 lbs 01/07/2017 Blood Pressure 1: 140/70 Code: 8480-6 BMI: 28.8 Code: 59859-1 Heart Rate 1: 68 bpm Height: 5'5" SpO2: 96% Weight: 173 lbs 09/08/2016 Blood Pressure 1: 134/70 Code: 8480-6 BMI: 29.1 Code: 26909-1 Heart Rate 1: 68 bpm Height: 5'5" SpO2: 99% Weight: 175 lbs 05/11/2016 Blood Pressure 1: 138/88 Code: 8480-6 BMI: 29.2 Code: 06648-9 Heart Rate 1: 67 bpm Height: 5'6" SpO2: 95% Weight: 178 lbs 02/10/2016 Blood Pressure 1: 148/82 Code: 8480-6 BMI: 28.8 Code: 05656-8 Heart Rate 1: 63 bpm Height: 5'6" SpO2: 97% Weight: 176 lbs 12/18/2015 Blood Pressure 1: 130/78 Code: 8480-6 BMI: 28.8 Code: 12087-7 Heart Rate 1: 66 bpm Height: 5'6" SpO2: 98% Weight: 176 lbs 12/16/2015 Blood Pressure 1: 162/100 Code: 8480-6 BMI: 28.8 Code: 68131-5 Heart Rate 1: 65 bpm Height: 5'6" SpO2: 98% Weight: 176 lbs 12/09/2015 Blood Pressure 1: 142/70 Code: 8480-6 BMI: 28.4 Code: 19994-0 Heart Rate 1: 65 bpm Height: 5'6" SpO2: 96% Weight: 173 lbs 10/28/2015 Blood Pressure 1: 160/82 Code: 8480-6 Blood Pressure 1: 140/86 Code: 8480-6 BMI: 28.5 Code: 78049-5 Heart Rate 1: 60 bpm Height: 5'6" SpO2: 96% Weight: 174 lbs 08/26/2015 Blood Pressure 1: 158/80 Code: 8480-6 Blood Pressure 1: 148/88 Code: 8480-6 BMI: 28.0 Code: 94814-4 Heart Rate 1: 68 bpm Height: 5'6" SpO2: 98% Weight: 171 lbs 02/12/2015 Blood Pressure 1: 136/74 Code: 8480-6 BMI: 25.9 Code: 60474-6 Heart Rate 1: 61 bpm Height: 5'6" SpO2: 97% Weight: 158 lbs 11/12/2014 Blood Pressure 1: 140/82 Code: 8480-6 BMI: 25.9 Code: 61784-0 Heart Rate 1: 64 bpm Height: 5'6" SpO2: 97% Weight: 158 lbs 07/23/2014 Blood Pressure 1: 138/88 Code: 8480-6 BMI: 25.6 Code: 87020-9 Heart Rate 1: 57 bpm Height: 5'6" SpO2: 95% Weight: 156 lbs 03/21/2014 Blood Pressure 1: 124/64 Code: 8480-6 Heart Rate 1: 64 bpm Weight: 147 lbs 01/25/2014 Blood Pressure 1: 130/70 Code: 8480-6 BMI: 24.4 Code: 37941-6 Height: 5'6" Weight: 149 lbs 10/23/2013 Blood Pressure 1: 152/82 Code: 8480-6 BMI: 25.7 Code: 21958-9 Heart Rate 1: 60 bpm Height: 5'6" Weight: 157 lbs 08/21/2013 Blood Pressure 1: 142/90 Code: 8480-6 BMI: 25.9 Code: 28614-4 Heart Rate 1: 56 bpm Height: 5'6" Weight: 158 lbs 07/20/2013 Blood Pressure 1: 164/80 Code: 8480-6 BMI: 26.2 Code: 24664-6 Heart Rate 1: 60 bpm Height: 5'6" SpO2: 98% Weight: 160 lbs 06/22/2013 Blood Pressure 1: 140/84 Code: 8480-6 BMI: 28.2 Code: 88431-5 Heart Rate 1: 60 bpm Height: 5'6" [...] data Encounters Encounter Performer Location Codes Date ([id number]) [id number] EST. PATIENT, LEVEL IV Diagnosis: Essential (primary) hypertension[ICD10: I10] Diagnosis: Peripheral vascular disease, unspecified[ICD10: I73.9] Diagnosis: Rash and other nonspecific skin eruption[ICD10: R21] Diagnosis: Impaired fasting glucose[ICD10: R73.01] Marily Gonzalez MD, [facility] CPT-4: 97692 09/19/2018 [id number]) [id number] EST. PATIENT, LEVEL IV Diagnosis: Malignant neoplasm of upper lobe, left bronchus or lung[ICD10: C34.12] Diagnosis: Solitary pulmonary nodule[ICD10: R91.1] Diagnosis: Essential (primary) hypertension[ICD10: I10] Diagnosis: Low back pain[ICD10: M54.5] Diagnosis: Tobacco use[ICD10: Z72.0] Marily Gonzalez MD, [facility] CPT-4: 70277 06/16/2018 [id number]) 27503 EST. PATIENT, LEVEL IV Diagnosis: Essential (primary) hypertension[ICD10: I10] Diagnosis: Major depressive disorder, recurrent, moderate[ICD10: F33.1] Diagnosis: Low back pain[ICD10: M54.5] Diagnosis: Rash and other nonspecific skin eruption[ICD10: R21] Marily Gonzalez MD, [facility] CPT-4: 25599 03/25/2018 [id number]) 56994 EST. PATIENT, LEVEL IV Diagnosis: Essential (primary) hypertension[ICD10: I10] Diagnosis: Mixed hyperlipidemia[ICD10: E78.2] Diagnosis: Malignant neoplasm of upper lobe, left bronchus or lung[ICD10: C34.12] Diagnosis: Impaired fasting glucose[ICD10: R73.01] Diagnosis: Cervicalgia[ICD10: M54.2] Diagnosis: Low back pain[ICD10: M54.5] Marily Gonzalez MD, [facility] CPT-4: 99113 11/25/2017 ([id number]) 16903 EST. PATIENT, LEVEL III Diagnosis: Essential (primary) hypertension[ICD10: I10] Marily Gonzalez MD, [facility] CPT-4: 48033 07/09/2017 ([id number]) 54077 EST. PATIENT, LEVEL III Diagnosis: Gas pain[ICD10: R14.1] Diagnosis: Rash and other nonspecific skin eruption[ICD10: R21] Marily Gonzalez MD, [facility] CPT-4: 94219 04/29/2017 ([id number]) 83591 EST. PATIENT, LEVEL III Diagnosis: Essential (primary) hypertension[ICD10: I10] Diagnosis: Malignant neoplasm of upper lobe, left bronchus or lung[ICD10: C34.12] Diagnosis: Chronic obstructive pulmonary disease, unspecified[ICD10: J44.9] Marily Gonzalez MD, [facility] CPT-4: 73014 01/07/2017 ([id number]) 96884 EST. PATIENT, LEVEL IV Diagnosis: Essential (primary) hypertension[ICD10: I10] Diagnosis: Mixed hyperlipidemia[ICD10: E78.2] Diagnosis: Tobacco use[ICD10: Z72.0] Diagnosis: Malignant neoplasm of upper lobe, left bronchus or lung[ICD10: C34.12] Marily Gonzalez MD, [facility] CPT-4: 80257 09/08/2016 ([id number]) 63804 EST. PATIENT, LEVEL IV Diagnosis: Essential (primary) hypertension[ICD10: I10] Diagnosis: Mixed hyperlipidemia[ICD10: E78.2] Diagnosis: Generalized anxiety disorder[ICD10: F41.1] Diagnosis: Other specified disorders of bone density and structure, multiple sites[ICD10: M85.89] Marily Gonzalez MD, [facility] CPT-4: 39132 05/11/2016 ([id number]) 96153 EST. PATIENT, LEVEL IV Diagnosis: Essential (primary) hypertension[ICD10: I10] Diagnosis: Generalized anxiety disorder[ICD10: F41.1] Diagnosis: Tobacco use[ICD10: Z72.0] Marily Gonzalez MD, [facility] CPT-4: 36079 02/10/2016 39062 EST. PATIENT, LEVEL IV Diagnosis: Myalgia[ICD10: M79.1] Diagnosis: Low back pain[ICD10: M54.5] Joy Gonzalez MD, [facility] CPT-4: 94176 12/18/2015 [id number] EST. PATIENT, LEVEL IV Diagnosis: Low back pain[ICD10: M54.5] Diagnosis: Pain in right hip[ICD10: M25.551] Joy Gonzalez MD, [facility] CPT-4: 63765 12/16/2015 ([id number]) 02747 EST. PATIENT, LEVEL IV Diagnosis: Low back pain[ICD10: M54.5] Diagnosis: Malignant neoplasm of upper lobe, left bronchus or lung[ICD10: C34.12] Diagnosis: Tobacco use[ICD10: Z72.0] Diagnosis: Essential (primary) hypertension[ICD10: I10] Diagnosis: Generalized anxiety disorder[ICD10: F41.1] Marily Gonzalez MD, [facility] CPT-4: 04642 12/09/2015 ([id number]) 81572 EST. PATIENT, LEVEL IV Diagnosis: Essential (primary) hypertension[ICD10: I10] Diagnosis: Tobacco use[ICD10: Z72.0] Diagnosis: Solitary pulmonary nodule[ICD10: R91.1] Marily Gonzalez MD, [facility] CPT-4: 41022 10/28/2015 ([id number]) 56540 EST. PATIENT, LEVEL IV Diagnosis: Essential (primary) hypertension[ICD10: I10] Diagnosis: Bilateral primary osteoarthritis of hip[ICD10: M16.0] Diagnosis: Solitary pulmonary nodule[ICD10: R91.1] Marily Gonzalez MD, [facility] CPT-4: 60679 08/26/2015 ([id number]) 18961 EST. PATIENT, LEVEL IV Diagnosis: ESSENTIAL HYPERTENSION[ICD9: 401.9] Diagnosis: Pulmonary nodule[ICD9: 793.11] Teresa Gonzalez MD, [facility] CPT-4: 09851 02/12/2015 ([id number]) 74085 EST. PATIENT, LEVEL III Diagnosis: ACUTE BRONCHITIS[ICD9: 466.0] Diagnosis: ALLERGIC RHINITIS[ICD9: 477.9] Teresa Gonzalez MD [facility] CPT-4: 54249 11/12/2014 ([id number]) 91434 EST. PATIENT, LEVEL IV Diagnosis: ESOPHAGEAL REFLUX[ICD9: 530.81] Diagnosis: ESSENTIAL HYPERTENSION[ICD9: 401.9] Diagnosis: Elevated blood sugar[ICD9: 790.29] Marily Gonzalez MD, [facility] CPT- 4: 44622 07/23/2014 ([id number]) 51262 EST. PATIENT, LEVEL III Diagnosis: Vaginal yeast infection[ICD9: 112.1] Diagnosis: Vaginal burning[ICD9: 625.8] Diagnosis: History of UTI[ICD9: V13.02] Diagnosis: Dysuria[ICD9: 788.1] Marily Gonzalez MD, [facility] CPT-4: 87989 03/21/2014 ([id number]) 32128 EST. PATIENT, LEVEL III Diagnosis: ESSENTIAL HYPERTENSION[ICD9: 401.9] Marily Gonzalez MD [facility] CPT-4: 62155 01/25/2014 ([id number]) 23690 EST. PATIENT, LEVEL III Diagnosis: ESSENTIAL HYPERTENSION[SNOMED: 44138869] Diagnosis: ESOPHAGEAL REFLUX[ICD9: 530.81] Teresa Gonzalez MD [facility] CPT-4: 55442 10/23/2013 ([id number]) 95374 EST. PATIENT, LEVEL IV Diagnosis: ESOPHAGEAL REFLUX[ICD9: 530.81] Diagnosis: ESSENTIAL HYPERTENSION[SNOMED: 13244622] Diagnosis: Rash[ICD9: 782.1] Marily Gonzalez MD, [facility] CPT-4: 21174 08/21/2013 ([id number]) 49349 EST. PATIENT, LEVEL IV Diagnosis: Muscle ache of extremity[ICD9: 729.1] Diagnosis: Tingling in extremities[ICD9: 782.0] Diagnosis: ESSENTIAL HYPERTENSION[SNOMED: 68638808] Diagnosis: GERD (gastroesophageal reflux disease)[ICD9: 530.81] Diagnosis: Elevated blood sugar[ICD9: 790.29] [facility] CPT- 4: 93721 07/20/2013 OFFICE VISIT, NEW - LEVEL 3 Diagnosis: ESSENTIAL HYPERTENSION[SNOMED: 62516476] Diagnosis: Tobacco use[ICD9: 305.1] Diagnosis: Depression[ICD9: 311] [facility] CPT-4: 70133 06/22/2013 ([id number]) BEHAV CHNG SMOKING 3-10 MIN Diagnosis: [ICD9: ] [facility] CPT-4: 36903 06/22/2013 Plan of Care Planned Activity Notes [...] fasting labs Intermittent claudication -check TA 09/19/2018 Patient Education: Patient Medication Summary Completed 09/19/2018 Appointment: Marily Valerio WPtel: [address] [place] [phone] (15 min) Moderate 09/16/2018 Patient Education: Patient Medication Summary Completed 06/27/2018 Visit Plan: Lung nodule -right lung -on surveillance -patient also has history of left lung cancer with lobectomy -does not want to go to for oncology -wants to see Dr Mata at [facility] in [place] -will send referral Lumbar radiculopathy -rx for gabapentin provided and instructed on use - recommend patient return to Dr Herrera to discussed epidural injections HTN-controlled- no changes Tobacco use-patient continues to smoke and is not interested in quitting -smoking cessation encouraged 06/16/2018 Appointment: Marily Valerio WPtel: [address] [place], [place] [phone] (30 min) Complex 06/16/2018 Patient Education: Patient [...] start PT 03/25/2018 Appointment: Marily Valerio WPtel: [address] [place], [place] [phone] (15 min) Moderate 03/25/2018 Patient Education: Patient [...] vs PT 11/25/2017 Appointment: Marily Valerio WPtel: [phone] (15 min) Moderate 11/25/2017 Patient Education: Patient Medication Summary Completed 11/25/2017 Care Plan: X-RAY EXAM L-S SPINE 2/3 VWS LOINC : 28546-8 Pending 11/25/2017 Care Plan: X-RAY EXAM NECK SPINE 2-3 VW LOINC : 40422-0 Pending 11/25/2017 Appointment: Marily Valerio WPtel: [address] [place], [place] [phone] (15 min) Moderate 11/02/2017 Visit Plan: Hypertension [...] Dr Ryan 07/09/2017 Appointment: Marily Valerio WPtel: [facility] [place] [address] (15 min) Moderate 07/09/2017 Patient Education: Patient Medication Summary Completed 07/09/2017 Patient Education: Smoking and Tobacco Addiction Completed 07/09/2017 Appointment: Marily Valerio WPtel: [address] [place] [address] (15 min) Moderate 07/08/2017 Visit Plan: Gas and bloating-cut out dairy x 2 weeks-increase gas x to TID-call if symptoms uncontrolled Rash-rx for nystatin powder provided-keep clean/dry-call if does not resolve or if any worse 04/29/2017 Appointment: Marily Valerio WPtel: [address] [place] [address] (15 min) Moderate 04/29/2017 Patient Education: Patient [...] nicotine patches 01/07/2017 Appointment: Marily Valerio WPtel: [address] [place] [address] (15 min) Moderate 01/07/2017 Patient Education: Patient Medication Summary Completed 01/07/2017 Patient Education: Smoking and Tobacco Addiction Completed 01/07/2017 Patient Education: Hypertension Completed 01/07/2017 Appointment: Marily Valerio WPtel: [address] [place] [address] (30 min) Complex 01/05/2017 Visit Plan: Hypertension [...] in 09/08/2016 Appointment: Marily Valerio WPtel: [phone] [phone] (15 min) Moderate 09/08/2016 Patient Education: [...] density 05/11/2016 Appointment: Marily Valerio WPtel: [address] [phone] (15 min) Moderate 05/11/2016 Patient Education: [...] [facility] Cancelled 01/17/2016 Visit Plan: Continued Low back [...] they worsen. 12/18/2015 Appointment: Marily Valerio WPtel: [address] [place], [place] [phone] (30 min) [facility] 12/18/2015 Patient Education: Patient Medication Summary Completed [...] they worsen. 12/16/2015 Appointment: Joy Flores WPtel: [facility] [place] (15 min) Moderate 12/16/2015 Patient Education: [...] to have left upper lobe removed at [facility] this week to schedule Tobacco use-no cigarettes [...] blood pressure readings at home. Arthritis of wdgb-muao-ltxhs mobic-monitor symptoms-check labs Left lung nodule- most recent scan shows slight increase in size and needs further evaluation- [facility] 08/[facility] Appointment: Marily Valerio WPtel: [phone] [place] (30 min) Complex 08/26/2015 Patient Education: Patient Medication Summary Completed 08/26/2015 Patient Education: Hypertension Completed 08/26/2015 [facility]ment: [phone] [place] (15 min) Moderate 08/15/2015 Appointment: [phone] [place] (15 min) Moderate 08/15/2015 [...] CT scan. 02/12/2015 Appointment: Teresa Gonzalez WPtel[facility] Follow [facility] 02/12/2015 Patient Education: [...] bloating-use dicyclomine prn Elevated blood sugar-check Hgb M5N-alo back on sweets/carbs 07/23/2014 Appointment: Follow up [...] home. 01/25/2014 Appointment: Marily Valerio WPtel: [phone] [phone] Follow up 01/25/2014 Patient Education: Patient [...] Dr. Mckeon. 10/23/2013 Appointment: [phone] Follow up 10/23/2013 [...] worse. 08/21/2013 Appointment: [phone] [phone] Follow up 08/21/2013 Patient Education: Patient Medication [...] with Dr Combs as scheduled Tingling of anhxygxtzqw-kzrcozaq-nrtiz labs including vitamin b12 and vitamin d Elevated blood sugar-check hgb a1c 07/20/2013 Appointment: Marily Valerio WPtel: [facility] [place] [address] Follow up 07/20/2013 Patient Education: Patient Medication [...] date. 06/22/2013 Appointment: Marily Valerio WPtel: [phone] [place] [address] New Patient 06/22/2013 Patient Education: Patient Medication [...] not resolve or if any worse. 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 Hypertension [...] with Dr Combs as scheduled Tingling of kgqkzbywbgm-fijuuklz-jgluc labs including vitamin b12 and vitamin d [...] Intermittent claudication -check TA Dr Mata at [facility] ( or wednesday) gabapentin 100mg at bedtime screening mammogram make an appt with Dr Herrera to discuss epidural injections . Lung nodule -right lung -on surveillance -patient also has history of left lung cancer with lobectomy -does not want to go to for oncology -wants to see Dr Mata at [facility] in [place] -will send referral Lumbar radiculopathy -rx for [...] to have left upper lobe removed at [facility] this week to schedule Tobacco use-no cigarettes [...] blood pressure readings at home. Arthritis of rtlk-gcpt-ebmqp mobic-monitor symptoms-check labs Left lung nodule-most recent [...] bloating-use dicyclomine prn Elevated blood sugar-check Hgb B4N-bxu back on sweets/carbs . Hypertension - well [...]
--- OUTSIDE RECORDS SUMMARY | 2019-03-31 09:41 | XMS REPORT | CCD ---
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 Unknown Has never used illegal drugs 06/22/2013 Allergies, Adverse Reactions, Alerts Substance Reaction Codes Entered Date Inactivated Date Status lisinopril cough, RxNorm: 84851 06/22/2013 No Inactive Date Active SULFA (SULFONAMIDE ANTIBIOTICS) hives, Unknown 06/22/2013 No Inactive Date Active Past Medical History Illness Codes Condition Status Onset Date Resolved Date Encounter for screening mammogram for malignant neoplasm of breast ICD-9: V76.12 ICD-10: Z12.31 Active 06/27/2018 Unknown Essential (primary) hypertension ICD-9: 401.1 ICD-10: I10 Active 07/09/2017 Unknown Low back pain ICD-9: 724.2 ICD-10: M54.5 Active 12/17/2015 Unknown Malignant neoplasm of upper lobe, left bronchus or lung ICD-9: 162.3 ICD-10: C34.12 Active 12/08/2015 Unknown Solitary pulmonary nodule ICD-9: 793.11 ICD-10: R91.1 Active 10/27/2015 Unknown Tobacco use ICD-9: 305.1 ICD-10: Z72.0 Active 02/09/2016 Unknown Cervicalgia ICD-9: 723.1 ICD-10: M54.2 Active 11/25/2017 Unknown Impaired fasting glucose ICD-9: 790.21 ICD-10: R73.01 Active 11/25/2017 Unknown Major depressive disorder, recurrent, moderate ICD-9: 296.32 ICD-10: F33.1 Active 03/25/2018 Unknown Mixed hyperlipidemia ICD- 9: 272.2 ICD-10: E78.2 Active 05/10/2016 Unknown Rash and other nonspecific skin eruption ICD-9: 782.1 ICD-10: R21 Active 04/29/2017 Unknown Encounter for general adult medical examination [...] Problems Condition Codes Effective Dates Condition Status Encounter for screening mammogram for malignant neoplasm of breast ICD-9: V76.12 ICD-10: Z12.31 06/27/2018 Active Essential (primary) hypertension ICD-9: 401.1 ICD-10: I10 07/09/2017 Active Low back pain ICD-9: 724.2 ICD-10: M54.5 12/17/2015 Active Malignant neoplasm of upper lobe, left bronchus or lung ICD-9: 162.3 ICD-10: C34.12 12/08/2015 Active Solitary pulmonary nodule ICD-9: 793.11 ICD-10: R91.1 10/27/2015 Active Tobacco use ICD-9: 305.1 ICD-10: Z72.0 02/09/2016 Active Cervicalgia ICD-9: 723.1 ICD-10: M54.2 11/25/2017 Active Impaired fasting glucose ICD-9: 790.21 ICD-10: R73.01 11/25/2017 Active Major depressive disorder, recurrent, moderate ICD-9: 296.32 ICD-10: F33.1 03/25/2018 Active Mixed hyperlipidemia ICD- 9: 272.2 ICD-10: E78.2 05/10/2016 Active Rash and other nonspecific skin eruption ICD-9: 782.1 ICD-10: R21 04/29/2017 Active Encounter for general adult medical examination [...] Instructions nystatin 100,000 unit/gram topical cream RxNorm: 856319 1 Application TOP BID 06/16/2018 06/29/2018 Active gabapentin 100 mg capsule RxNorm: 179563 1 Capsule(s) PO UD 06/16/2018 07/15/2018 Active 1 po q HS x 1 week then 2 po q HS x 1 week then increase to 3 q HS amlodipine 10 mg tablet RxNorm: 503913 TAKE ONE TABLET BY MOUTH EVERY DAY 05/26/2018 11/21/2018 Active Lipitor 10 mg tablet RxNorm: 380884 Tablet(s) TAKE ONE TABLET BY MOUTH EVERY OTHER DAY 05/25/2018 02/18/2019 Active Lexapro 20 mg tablet RxNorm: 137708 1 Tablet(s) PO QPM 03/25/2018 09/20/2018 Active olmesartan 40 mg tablet RxNorm: 549540 1 Tablet(s) PO daily 03/25/2018 04/23/2018 Inactive nystatin 100,000 unit/gram topical cream RxNorm: 168733 1 Application TOP BID 03/25/2018 04/07/2018 Inactive Lipitor 10 mg tablet RxNorm: 450944 TAKE ONE TABLET BY MOUTH EVERY OTHER DAY 03/18/2018 12/11/2018 Active Diovan 320 mg tablet RxNorm: 646878 TAKE ONE TABLET BY MOUTH DAILY 03/18/2018 03/24/2018 Inactive metoprolol tartrate 100 mg tablet RxNorm: 461015 TAKE ONE TABLET BY MOUTH TWICE A DAY 01/05/2018 10/01/2018 Active Diovan 320 mg tablet RxNorm: 507565 TAKE ONE TABLET BY MOUTH EVERY DAY 12/16/2017 03/17/2018 Inactive Lexapro 10 mg tablet RxNorm: 530671 1 Tablet(s) PO QPM 11/25/2017 03/24/2018 Inactive amlodipine 10 mg tablet RxNorm: 326298 TAKE ONE TABLET BY MOUTH EVERY DAY 11/15/2017 05/13/2018 Inactive Lipitor 10 mg tablet RxNorm: 894429 TAKE ONE TABLET BY MOUTH EVERY OTHER DAY 10/18/2017 03/17/2018 Inactive dicyclomine 10 mg capsule RxNorm: 900481 TAKE ONE CAPSULE BY MOUTH THREE TIMES A DAY NEEDED 08/12/2017 07/26/2020 Active Lipitor 10 mg tablet RxNorm: 431295 TAKE ONE TABLET BY MOUTH EVERY OTHER DAY 07/12/2017 10/17/2017 Inactive Diovan 320 mg tablet RxNorm: 890294 TAKE ONE TABLET BY MOUTH EVERY DAY 06/09/2017 12/05/2017 Inactive dicyclomine 10 mg capsule RxNorm: 858480 TAKE ONE CAPSULE BY MOUTH THREE TIMES A DAY NEEDED 05/05/2017 08/02/2017 Inactive nystatin 100,000 unit/gram topical powder RxNorm: 091850 1 Application TOP BID 04/29/2017 05/08/2017 Inactive Diovan 320 mg tablet RxNorm: 957237 TAKE ONE TABLET BY MOUTH EVERY DAY 03/10/2017 06/07/2017 Inactive dicyclomine 10 mg capsule RxNorm: 838556 TAKE ONE CAPSULE BY MOUTH THREE TIMES A DAY NEEDED 02/04/2017 05/04/2017 Inactive amlodipine 10 mg tablet RxNorm: 232033 TAKE ONE TABLET BY MOUTH EVERY DAY 02/04/2017 10/31/2017 Inactive Lipitor 10 mg tablet RxNorm: 914808 TAKE ONE TABLET BY MOUTH EVERY OTHER DAY 02/04/2017 07/11/2017 Inactive Fish Oil 1,000 mg capsule RxNorm: 1 Capsule(s) PO TID 01/07/2017 No Stop Date Active metoprolol tartrate 100 mg tablet RxNorm: 806204 1 Tablet(s) PO BID TAKE ONE TABLET BY MOUTH TWICE A DAY 01/07/2017 01/01/2018 Inactive Diovan 320 mg tablet RxNorm: 191106 TAKE ONE TABLET BY MOUTH EVERY DAY 11/05/2016 03/04/2017 Inactive Lipitor 10 mg tablet RxNorm: 897356 1 Tablet(s) PO every other day 09/08/2016 01/05/2017 Inactive dc livalo dicyclomine 10 mg capsule RxNorm: 333611 TAKE ONE CAPSULE BY MOUTH THREE TIMES A DAY NEEDED 07/30/2016 01/25/2017 Inactive Diovan 320 mg tablet RxNorm: 030416 TAKE ONE TABLET BY MOUTH EVERY DAY 06/15/2016 11/04/2016 Inactive Lipitor 10 mg tablet RxNorm: 818147 1 Tablet(s) PO every other day 05/25/2016 05/24/2016 Inactive dc livalo Lipitor 10 mg tablet RxNorm: 847515 1 Tablet(s) PO every other day 05/25/2016 09/07/2016 Inactive dc livalo Livalo 2 mg tablet RxNorm: 607878 1 Tablet(s) PO daily 05/20/2016 05/19/2016 Inactive Livalo 2 mg tablet RxNorm: 140985 1 Tablet(s) PO daily 05/20/2016 05/24/2016 Inactive Celexa 10 mg tablet RxNorm: 502942 1 Tablet(s) PO daily 02/10/2016 11/24/2017 Inactive amlodipine 10 mg tablet RxNorm: 122329 TAKE ONE TABLET BY MOUTH EVERY DAY 02/03/2016 02/02/2016 Inactive amlodipine 10 mg tablet RxNorm: 167667 TAKE ONE TABLET BY MOUTH EVERY DAY 02/03/2016 01/27/2017 Inactive amlodipine 10 mg tablet RxNorm: 792782 TAKE ONE TABLET BY MOUTH EVERY DAY 02/03/2016 04/27/2017 Inactive metoprolol tartrate 100 mg tablet RxNorm: 173912 TAKE ONE TABLET BY MOUTH TWICE A DAY 2016 01/06/2017 Inactive Diovan 320 mg tablet RxNorm: 163988 TAKE ONE TABLET BY MOUTH EVERY DAY 12/19/2015 06/14/2016 Inactive Wellbutrin XL 150 mg 24 hr tablet, extended release RxNorm: 403563 1 Tablet(s) PO daily 12/09/2015 02/09/2016 Inactive tramadol 50 mg tablet RxNorm: 601845 1-2 Tablet(s) PO Q6 PRN 12/09/2015 11/24/2017 Inactive Mobic 7.5 mg tablet RxNorm: 091944 TAKE ONE TABLET BY MOUTH DAILY 11/11/2015 11/24/2017 Inactive dicyclomine 10 mg capsule RxNorm: 365419 TAKE ONE CAPSULE BY MOUTH THREE TIMES A DAY NEEDED 11/11/2015 07/29/2016 Inactive Wellbutrin 75 mg tablet RxNorm: 502694 1 Tablet(s) PO BID 10/28/2015 12/08/2015 Inactive simvastatin 20 mg tablet RxNorm: 764154 TAKE ONE TABLET BY MOUTH EVERY DAY 09/05/2015 2016 Inactive Mobic 7.5 mg tablet RxNorm: 387956 1 Tablet(s) PO daily 08/26/2015 11/10/2015 Inactive estradiol 0.5 mg tablet RxNorm: 345564 TAKE ONE TABLET BY MOUTH EVERY DAY 06/11/2015 03/06/2016 Inactive amlodipine 10 mg tablet RxNorm: 036936 TAKE ONE TABLET BY MOUTH EVERY DAY 04/19/2015 01/13/2016 Inactive dicyclomine 10 mg capsule RxNorm: 981303 TAKE ONE CAPSULE BY MOUTH THREE TIMES A DAY NEEDED 04/19/2015 10/15/2015 Inactive simvastatin 20 mg tablet RxNorm: 862561 TAKE ONE TABLET BY MOUTH EVERY DAY 02/21/2015 08/19/2015 Inactive Diovan 320 mg tablet RxNorm: 687194 TAKE ONE TABLET BY MOUTH EVERY DAY 12/19/2014 12/18/2015 Inactive cephalexin 500 mg capsule RxNorm: 924719 1 Capsule(s) PO TID 11/13/2014 11/19/2014 Inactive prednisone 10 mg tablet RxNorm: 354402 3 Tablet(s) PO daily 11/13/2014 11/17/2014 Inactive prednisone 10 mg tablet RxNorm: 885295 3 Tablet(s) PO daily 11/12/2014 11/12/2014 Inactive Kenalog 40 mg/mL suspension for injection RxNorm: 8121354 Milliliter(s) Inj 11/12/2014 11/12/2014 Inactive cephalexin 500 mg capsule RxNorm: 296490 1 Capsule(s) PO TID 11/12/2014 11/12/2014 Inactive ceftriaxone 500 mg solution for injection RxNorm: 7171734 Inj 11/12/2014 11/12/2014 Inactive dicyclomine 10 mg capsule RxNorm: 680269 TAKE ONE CAPSULE BY MOUTH THREE TIMES A DAY NEEDED 11/08/2014 04/18/2015 Inactive metoprolol tartrate 100 mg tablet RxNorm: 603483 TAKE ONE TABLET BY MOUTH TWICE A DAY 10/18/2014 2015 Inactive metoprolol tartrate 100 mg tablet RxNorm: 386497 1 Tablet(s) PO BID 10/18/2014 10/12/2015 Inactive simvastatin 20 mg tablet RxNorm: 268222 TAKE ONE TABLET BY MOUTH EVERY DAY 08/21/2014 02/16/2015 Inactive Diovan 320 mg tablet RxNorm: 894635 TAKE ONE TABLET BY MOUTH EVERY DAY 08/21/2014 12/18/2014 Inactive Carafate 1 gram tablet RxNorm: 879627 1 Tablet(s) PO AC & HS MIX WITH 30ML WATER 07/23/2014 11/24/2017 Inactive dissolve in water and drink as slurry dicyclomine 10 mg capsule RxNorm: 564486 1 Capsule(s) PO TID PRN 07/23/2014 10/20/2014 Inactive simvastatin 20 mg tablet RxNorm: 312144 TAKE ONE TABLET BY MOUTH EVERY DAY 06/07/2014 08/20/2014 Inactive estradiol 0.5 mg tablet RxNorm: 357773 TAKE ONE TABLET BY MOUTH EVERY DAY 05/16/2014 05/10/2015 Inactive amlodipine 10 mg tablet RxNorm: 869994 TAKE ONE TABLET BY MOUTH EVERY DAY 05/16/2014 04/18/2015 Inactive Diovan 320 mg tablet RxNorm: 553787 TAKE ONE TABLET BY MOUTH EVERY DAY 03/26/2014 08/20/2014 Inactive Diflucan 150 mg tablet RxNorm: 460850 1 Tablet(s) PO daily 03/21/2014 03/27/2014 Inactive simvastatin 20 mg tablet RxNorm: 527973 TAKE ONE TABLET BY MOUTH EVERY DAY 03/02/2014 05/30/2014 Inactive estradiol 0.5 mg tablet RxNorm: 306432 TAKE ONE TABLET BY MOUTH EVERY DAY 02/16/2014 05/15/2014 Inactive amlodipine 10 mg tablet RxNorm: 622017 TAKE ONE TABLET BY MOUTH EVERY DAY 02/16/2014 05/15/2014 Inactive pantoprazole 40 mg tablet,delayed release RxNorm: 125291 2 Tablet(s) PO daily 01/25/2014 02/23/2014 Inactive simvastatin 20 mg tablet RxNorm: 574445 Tablet(s) PO TAKE ONE TABLET BY MOUTH EVERY DAY 11/30/2013 03/01/2014 Inactive amlodipine 10 mg tablet RxNorm: 394497 Tablet(s) PO TAKE ONE TABLET BY MOUTH EVERY DAY 11/16/2013 02/15/2014 Inactive metoprolol tartrate 100 mg tablet RxNorm: 784233 1 Tablet(s) PO BID 10/23/2013 10/17/2014 Inactive Diovan 320 mg tablet RxNorm: 381542 Tablet(s) PO TAKE ONE TABLET BY MOUTH EVERY DAY 09/28/2013 03/25/2014 Inactive Carafate 1 gram tablet RxNorm: 475771 1 Tablet(s) PO TID MIX WITH 30ML WATER 09/20/2013 12/18/2013 Inactive estradiol 0.5 mg tablet RxNorm: 983985 1 Tablet(s) PO daily 08/21/2013 02/15/2014 Inactive amlodipine 10 mg tablet RxNorm: 361639 1 Tablet(s) PO daily 08/21/2013 11/15/2013 Inactive simvastatin 20 mg tablet RxNorm: 114893 1 Tablet(s) PO daily 08/21/2013 11/18/2013 Inactive Diovan 320 mg tablet RxNorm: 284427 1 Tablet(s) PO daily 08/21/2013 09/19/2013 Inactive Carafate 1 gram tablet RxNorm: 377214 1 Tablet(s) PO TID MIX WITH 30ML WATER 08/21/2013 09/19/2013 Inactive Diovan 320 mg tablet RxNorm: 944651 1 Tablet(s) PO daily 07/20/2013 08/18/2013 Inactive amlodipine 10 mg tablet RxNorm: 654884 1 Tablet(s) PO daily 07/20/2013 08/18/2013 Inactive estradiol 0.5 mg tablet RxNorm: 615960 1 Tablet(s) PO daily 07/20/2013 08/18/2013 Inactive metoprolol tartrate 100 mg tablet RxNorm: 179615 1 Tablet(s) PO BID 06/22/2013 10/22/2013 Inactive Wellbutrin XL 150 mg 24 hr tablet, extended release RxNorm: 313941 1 Tablet(s) PO daily 06/22/2013 07/19/2013 Inactive pantoprazole 40 mg tablet,delayed release RxNorm: 499377 1 Tablet(s) PO daily No Start Date Active calcium 500 mg tablet RxNorm: 2 Tablet(s) PO BID No Start Date Active glucosamine and xxdbxqxtvkc-ldhvbvhg-nitm#3 oral RxNorm: 2837 oral No Start Date Active multivitamin tablet RxNorm: 1 Tablet(s) PO daily No Start Date Active aspirin 81 mg tablet RxNorm: 615832 1 Tablet(s) PO daily No Start Date Active Probiotic oral RxNorm: oral No Start Date Active Vitamin D3 1,000 unit capsule RxNorm: 018978 1 Capsule(s) PO daily No Start Date Active Eliquis 5 mg tablet RxNorm: 1272532 1 Tablet(s) PO BID No Start Date Active simvastatin 20 mg tablet RxNorm: 075983 1 Tablet(s) PO daily No Start Date 08/20/2013 Inactive hyoscyamine 0.125 mg sublingual tablet RxNorm: 6532030 1 Tablet(s) SL TID No Start Date 07/22/2014 Inactive metoprolol tartrate 100 mg tablet RxNorm: 733689 1 Tablet(s) PO daily No Start Date 06/21/2013 Inactive amlodipine 10 mg tablet RxNorm: 559832 1 Tablet(s) PO daily No Start Date 07/19/2013 Inactive Diovan 320 mg tablet RxNorm: 864870 1 Tablet(s) PO daily No Start Date 07/19/2013 Inactive Fish Oil 1,000 mg capsule RxNorm: 1 Capsule(s) PO BID No Start Date 01/06/2017 Inactive omeprazole 20 mg tablet,delayed release RxNorm: 535790 1 Tablet(s) PO daily No Start Date 01/25/2014 Inactive estradiol 0.5 mg tablet RxNorm: 303736 1 Tablet(s) PO daily No Start Date 07/19/2013 Inactive Medication Administered Medication Codes Instructions Start Date Status Kenalog 40 mg/mL suspension for injection RxNorm: 6278569 Milliliter 11/12/2014 No longer Active ceftriaxone 500 mg solution for injection RxNorm: 5953174 11/12/2014 No longer Active Immunizations Vaccine Codes Date Status Influenza CVX: 141 05/11/2016 completed Pneumococcal (Adult) CVX: 133 05/11/2016 completed Influenza CVX: 141 08/13/2013 completed Assessments Condition Codes Effective Dates Encounter for screening mammogram for malignant neoplasm of breast ICD-10: Z12.31 ICD-9: V76.12 06/27/2018 Essential (primary) hypertension ICD-10: I10 ICD-9: 401.1 06/16/2018 Tobacco use ICD-10: Z72.0 ICD-9: 305.1 06/16/2018 Malignant neoplasm of upper lobe, left bronchus or lung ICD-10: C34.12 ICD-9: 162.3 06/16/2018 Solitary pulmonary nodule ICD-10: R91.1 ICD-9: 793.11 06/16/2018 Low back pain ICD-10: M54.5 ICD-9: 724.2 06/16/2018 Rash and other nonspecific skin eruption ICD-10: R21 ICD-9: 782.1 03/25/2018 Major depressive disorder, recurrent, moderate ICD-10: F33.1 ICD-9: 296.32 03/25/2018 Encounter for general adult medical examination with abnormal findings ICD-10: Z00.01 ICD-9: V70.0 12/03/2017 Impaired fasting glucose ICD-10: R73.01 ICD-9: 790.21 11/25/2017 Cervicalgia ICD-10: M54.2 ICD-9: 723.1 11/25/2017 Mixed [...] Reason For Visit Effective Dates Notes hypertension 06/16/2018 rash 03/25/2018 Annual Medicare Wellness [...] Lipid Ord30 C/HDL 3.5 Ratio 11/25/2017 %Hba1C Pva299 % HbA1c 52784- 6 5.7 % 11/25/2017 %Hba1C Pnb863 Gluc Ave 117 mg/dL 11/25/2017 Tsh Ord6 TSH (3rd IS) 1.06 uIU/mL 11/25/2017 Comp Metabolic Iiy112 NA 141 mEq/L 11/25/2017 Comp Metabolic Mpg789 K 4.2 mEq/L 11/25/2017 Comp Metabolic Hod601 CL 103 mEq/L 11/25/2017 Comp Metabolic Shz410 CO2 31.0 mEq/L 11/25/2017 Comp Metabolic Csc556 ANION GAP 11 11/25/2017 Comp Metabolic Xbo488 GLUCOSE 117 mg/dL 11/25/2017 Comp Metabolic Zoq515 Creat 0.8 mg/dL 11/25/2017 Comp Metabolic Lyy692 eGFR 74 ml/min/1.73m2 11/25/2017 Comp Metabolic Ztp027 BUN 18 mg/dL 11/25/2017 Comp Metabolic Jgh772 B/C Ratio 22.2 Ratio 11/25/2017 Comp Metabolic Dbi354 CALCIUM 9.4 mg/dL 11/25/2017 Comp Metabolic Rcj978 ALK PHOS 62 U/L 11/25/2017 Comp Metabolic Wfm260 AST(SGOT) 21 U/L 11/25/2017 Comp Metabolic Cnb929 ALT(SGPT) 18 U/L 11/25/2017 Comp Metabolic Kwf468 BILI T 0.4 mg/dL 11/25/2017 Comp Metabolic Fbk982 ALBUMIN 4.0 g/dL 11/25/2017 Comp Metabolic Qil362 TPRO 6.1 g/dL 11/25/2017 Comp Metabolic Cnu812 GLOB 2.1 g/dL 11/25/2017 Comp Metabolic Uay500 A/G Ratio 1.9 Ratio 11/25/2017 Comp Metabolic Kvc156 Osmo 284 mOsmo 11/25/2017 Cbc With Differential [...] 31.1 pg 11/25/2017 Cbc With Differential Ord2 Bonner% 11.2 % 11/25/2017 Cbc With Differential Ord2 Eos% 2.2 % 11/25/2017 Cbc With Differential Ord2 MCHC 31.9 pg 11/25/2017 Cbc With Differential Ord2 PLT 351 K/ul 11/25/2017 Cbc With Differential Ord2 Baso% 0.4 % 11/25/2017 Cbc With Differential Ord2 Neut ABS# 2.65 K/ul 11/25/2017 Cbc With Differential Ord2 RDW 14.1 % 11/25/2017 Cbc With Differential Ord2 Lymph ABS# 2.03 K/ul 11/25/2017 Cbc With Differential Ord2 Bonner ABS# 0.6 K/ul 11/25/2017 Cbc With Differential [...] 38.1 % 05/11/2016 Cbc With Differential Ord2 Bonner% 9.5 % 05/11/2016 Cbc With Differential Ord2 [...] 1.76 K/ul 05/11/2016 Cbc With Differential Ord2 Bonner ABS# 0.4 K/ul 05/11/2016 Cbc With Differential Ord2 Eos ABS# 0.1 K/ul 05/11/2016 Cbc With Differential Ord2 Baso ABS# 0.0 K/ul 05/11/2016 Comp Metabolic Ekc477 NA 139 mEq/L 05/11/2016 Comp Metabolic Zsu000 K 4.6 mEq/L 05/11/2016 Comp Metabolic Zbj999 CL 104 mEq/L 05/11/2016 Comp Metabolic Fya340 CO2 30.0 mEq/L 05/11/2016 Comp Metabolic Fnm461 ANION GAP 10 05/11/2016 Comp Metabolic Bvv233 GLUCOSE 113 mg/dL 05/11/2016 Comp Metabolic Spw897 Creat 0.8 mg/dL 05/11/2016 Comp Metabolic Gxj089 eGFR 74 ml/min/1.73m2 05/11/2016 Comp Metabolic Xcp540 BUN 16 mg/dL 05/11/2016 Comp Metabolic Soz702 B/C Ratio 19.8 Ratio 05/11/2016 Comp Metabolic Spp341 CALCIUM 10.1 mg/dL 05/11/2016 Comp Metabolic Zfh570 ALK PHOS 44 U/L 05/11/2016 Comp Metabolic Eol909 AST(SGOT) 20 U/L 05/11/2016 Comp Metabolic Zpy141 ALT(SGPT) 17 U/L 05/11/2016 Comp Metabolic Etj534 BILI T 0.4 mg/dL 05/11/2016 Comp Metabolic Mvy889 ALBUMIN 4.1 g/dL 05/11/2016 Comp Metabolic Ppe948 TPRO 6.5 g/dL 05/11/2016 Comp Metabolic Cno411 GLOB 2.4 g/dL 05/11/2016 Comp Metabolic Dml303 A/G Ratio 1.8 Ratio 05/11/2016 Comp Metabolic Xci457 Osmo 280 mOsmo 05/11/2016 Tsh Ord6 hTSH II 0.96 uIU/mL 05/11/2016 Lipid Ord30 CHOL 283 mg/dL 05/11/2016 Lipid Ord30 HDL 53.0 mg/dl 05/11/2016 Lipid Ord30 TRIG 144 mg/dL 05/11/2016 Lipid Ord30 LDL 201 mg/dL 05/11/2016 Lipid Ord30 C/HDL 5.3 Ratio 05/11/2016 C-Reactive Protein Qnt Crqnt CRP 0.5 mg/dl 12/18/2015 Vitamin D 25 Oh Uvr7020 VITAMIN D, 25 HYDROXY 84.50 ng/mL 12/18/2015 Comp Metabolic Tnc251 NA 139 mEq/L 12/18/2015 Comp Metabolic Eey587 K 3.8 mEq/L 12/18/2015 Comp Metabolic Wrz220 CL 103 mEq/L 12/18/2015 Comp Metabolic Woq884 CO2 31.0 mEq/L 12/18/2015 Comp Metabolic Zbj967 ANION GAP 9 12/18/2015 Comp Metabolic Fub245 GLUCOSE 107 mg/dL 12/18/2015 Comp Metabolic Unb562 Creat 0.8 mg/dL 12/18/2015 Comp Metabolic Tjf993 eGFR 80 ml/min/1.73m2 12/18/2015 Comp Metabolic Xvs331 BUN 19 mg/dL 12/18/2015 Comp Metabolic Drw452 B/C Ratio 25.0 Ratio 12/18/2015 Comp Metabolic Qug373 CALCIUM 9.1 mg/dL 12/18/2015 Comp Metabolic Tor439 ALK PHOS 42 U/L 12/18/2015 Comp Metabolic Bgu043 AST(SGOT) 17 U/L 12/18/2015 Comp Metabolic Ruj809 ALT(SGPT) 18 U/L 12/18/2015 Comp Metabolic Lwh136 BILI T 0.3 mg/dL 12/18/2015 Comp Metabolic Mov313 ALBUMIN 3.8 g/dL 12/18/2015 Comp Metabolic Bgu407 TPRO 5.9 g/dL 12/18/2015 Comp Metabolic Frn782 GLOB 2.1 g/dL 12/18/2015 Comp Metabolic Hfn513 A/G Ratio 1.8 Ratio 12/18/2015 Comp Metabolic Alz793 Osmo 280 mOsmo 12/18/2015 Sed Rate Ord21 [...] 97.6 fl 12/18/2015 Cbc With Differential Ord2 Bonner% 9.3 % 12/18/2015 Cbc With Differential Ord2 [...] 1.45 K/ul 12/18/2015 Cbc With Differential Ord2 Bonner ABS# 0.5 K/ul 12/18/2015 Cbc With Differential [...] 31.6 pg 09/02/2015 Cbc With Differential Ord2 Bonner% 8.8 % 09/02/2015 Cbc With Differential Ord2 [...] 1.53 K/ul 09/02/2015 Cbc With Differential Ord2 Bonner ABS# 0.5 K/ul 09/02/2015 Cbc With Differential Ord2 Eos ABS# 0.1 K/ul 09/02/2015 Cbc With Differential Ord2 Baso ABS# 0.0 K/ul 09/02/2015 Cbc With Differential Ord2 New Analyzer Notice Please note new ref ranges starting 08-14-2015 due to implemntation of new five part differential hematolgy analyzer. 09/02/2015 Tsh Ord6 hTSH II 1.41 uIU/mL 09/02/2015 Comp Metabolic Qni836 NA 136 mEq/L 09/02/2015 Comp Metabolic Ahl889 K 4.5 mEq/L 09/02/2015 Comp Metabolic Pge286 CL 103 mEq/L 09/02/2015 Comp Metabolic Sta128 CO2 27.0 mEq/L 09/02/2015 Comp Metabolic Tsg393 ANION GAP 11 09/02/2015 Comp Metabolic Mco508 GLUCOSE 109 mg/dL 09/02/2015 Comp Metabolic Zlz039 Creat 1.0 mg/dL 09/02/2015 Comp Metabolic Mai506 eGFR 62 ml/min/1.73m2 09/02/2015 Comp Metabolic Qab687 BUN 21 mg/dL 09/02/2015 Comp Metabolic Qyw908 B/C Ratio 22.1 Ratio 09/02/2015 Comp Metabolic Oyu761 CALCIUM 9.3 mg/dL 09/02/2015 Comp Metabolic Dsc466 ALK PHOS 37 U/L 09/02/2015 Comp Metabolic Lck739 AST(SGOT) 19 U/L 09/02/2015 Comp Metabolic Ewa749 ALT(SGPT) 16 U/L 09/02/2015 Comp Metabolic Rog826 BILI T 0.4 mg/dL 09/02/2015 Comp Metabolic Hxl535 ALBUMIN 4.1 g/dL 09/02/2015 Comp Metabolic Ete857 TPRO 6.3 g/dL 09/02/2015 Comp Metabolic Eor005 GLOB 2.2 g/dL 09/02/2015 Comp Metabolic Nts003 A/G Ratio 1.8 Ratio 09/02/2015 Comp Metabolic Vcz524 Osmo 276 mOsmo 09/02/2015 A1C HPLC [id number] A1C HPLC 32921-8 5.6 % 07/23/2014 VIT D TOTL 8161253 VIT D TOTL 52 NG/ML 07/20/2013 GFR CALC 5818580 GFR AA >60 ML/MIN 07/20/2013 GFR CALC 7223795 GFR NON-AA >60 ML/MIN 07/20/2013 CBC [id number] WBC 5.9 10e9/L 07/20/2013 CBC 5951653 RBC 4.79 10e12/L 07/20/2013 CBC 7801793 HGB 15.5 g/dL 07/20/2013 CBC 9921442 HCT DET 46.1 % 07/20/2013 CBC [id number] MCV 96.2 fL 07/20/2013 CBC [id number] MCH 32.4 pg 07/20/2013 CBC 4652859 MCHC 33.6 g/dL 07/20/2013 CBC 5017821 PLT 286 10e9/L 07/20/2013 CBC [id number] MPV 10.8 fL 07/20/2013 CBC 4724490 ERINN % 66.1 % 07/20/2013 CBC 0310555 LY % 24.3 % 07/20/2013 CBC 0488521 MON % 8.1 % 07/20/2013 CBC 0349517 EOS % 1.2 % 07/20/2013 CBC 6966684 BASO % 0.3 % 07/20/2013 CBC [id number] RDW 12.7 % 07/20/2013 CBC 9968836 ABS ERINN 3.90 10e9/L 07/20/2013 CBC [id number] ABS LYMPH 1.43 10e9/L 07/20/2013 CBC 8559367 ABS MONO 0.48 10e9/L 07/20/2013 CBC 6967786 ABS EOS 0.07 10e9/L 07/20/2013 CBC [id number] ABS BASO 0.02 10e9/L 07/20/2013 CBC [id number] RDW-SD 44.1 fL 07/20/2013 A1C HPLC [id number] A1C HPLC 35806-6 5.9 % 07/20/2013 LIPID GRP HDL TEST 54 MG/DL 07/20/2013 LIPID GRP TRIG 98 MG/DL 07/20/2013 LIPID GRP TEST LDL 95 MG/DL 07/20/2013 LIPID GRP CHOL 169 MG/DL 07/20/2013 LIPID GRP RCHOL/HDL 3.13 RATIO 07/20/2013 TSH 9636996 TSH 1.032 uIU/ML 07/20/2013 CHEM 14 8459885 AST 18 U/L 07/20/2013 CHEM 14 9213018 ALT 13 IU/L 07/20/2013 CHEM 14 1650509 BUN 19 MG/DL 07/20/2013 CHEM 14 6364781 ALBUMIN 4.5 GM/DL 07/20/2013 CHEM 14 9638665 CHLORIDE 105 MMOL/L 07/20/2013 CHEM 14 5243611 BILI TOT 0.5 MG/DL 07/20/2013 CHEM 14 6037602 ALK PHOS 40 U/L 07/20/2013 CHEM 14 4163557 SODIUM 137 MMOL/L 07/20/2013 CHEM 14 3576069 CREATININE 0.76 MG/DL 07/20/2013 CHEM 14 8267811 CALCIUM 10.0 MG/DL 07/20/2013 CHEM 14 6202814 POTASSIUM 4.6 MMOL/L 07/20/2013 CHEM 14 3854505 PROT TOT 6.5 GM/DL 07/20/2013 CHEM 14 4018831 GLUCOSE 118 MG/DL 07/20/2013 CHEM 14 3224776 BICARB 26 MMOL/L 07/20/2013 CHEM 14 9846616 ANION GAP 6 MEQ/L 07/20/2013 VIT B 12 1390701 VIT B 12 492 PG/ML 07/20/2013 Review of Systems System Result Effective Dates Constitutional No recent illness 06/16/2018 Constitutional No [...] visualized 06/22/2013 None Full Exam - General 1995 [...] SUBSEQ VISIT CPT- 4: G0439 12/03/2017 TOBACCO-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 3-[address]: 174072808 CPT-4: G0436 09/08/2016 ADMIN INFLUENZA VIRUS VAC CPT-4: G0008 05/11/2016 PNEUMOCOCCAL VACC 13 SAULO IM Formatting Model/CDA Sections, Assigned to/Rafia Cuadra SNOMED CT: 40724026 CPT-4: 65314Btnycir 05/11/2016 ADMIN PNEUMOCOCCAL VACCINE SNOMED CT: 15467049 CPT-4: G0009 05/11/2016 FLU VACC 4 SAULO 3 YRS PLUS IM Formatting Model/CDA Sections, Assigned to/Rafia Cuadra SNOMED CT: [id number] CPT-4: 49135Bzqvreu 05/11/2016 TOBACCO-USE FINGER BUFF SEWER 3-[address]: 078308489 CPT-4: G0436 02/10/2016 TRIAMCINOLONE ACET INJ NOS CPT-4: J3301 12/16/2015 DRAIN/INJECT JOINT/BURSA CPT-4: 73578 12/16/2015 TOBACCO-USE FINGER BUFF SEWER 3-[address]: [id number] CPT-4: G0436 12/09/2015 TOBACCO-USE FINGER BUFF SEWER 3-[address]: 666956333 CPT-4: G0436 10/28/2015 THER/PROPH/DIAG INJ SC/IM CPT-4: 18068 11/12/2014 TRIAMCINOLONE ACET INJ NOS CPT-4: J3301 11/12/2014 ROCEPHIN, PER 250 MG CPT- 4: J0696 11/12/2014 ROUTINE VENIPUNCTURE CPT- 4: 17450 07/23/2014 URINALYSIS NONAUTO W/O SCOPE CPT-4: 89441 03/21/2014 ROUTINE VENIPUNCTURE CPT- 4: 94307 07/20/2013 PRESCRIP TRANSMIT VIA ERX SY CPT-4: G8553 07/20/2013 PRESCRIP TRANSMIT VIA ERX SY CPT-4: G8553 06/22/2013 PARTIAL REMOVAL OF LUNG CPT-4: 81008 Unknown Vital Signs Date Vital 06/16/2018 Blood Pressure 1: 146/84 Code: 8480-6 BMI: 30.6 Code: 96881-0 Heart Rate 1: 68 bpm Height: 5'5" SpO2: 99% Weight: 184 lbs 03/25/2018 Blood Pressure 1: 144/80 Code: 8480-6 BMI: 30.0 Code: 37620-1 Heart Rate 1: 65 bpm Height: 5'5" SpO2: 98% Weight: 180 lbs 12/03/2017 Blood Pressure 1: 142/86 Code: 8480-6 BMI: 29.5 Code: 45653-4 Heart Rate 1: 74 bpm Height: 5'5" SpO2: 93% Weight: 177 lbs 11/25/2017 Blood Pressure 1: 142/84 Code: 8480-6 BMI: 29.5 Code: 88216-8 Heart Rate 1: 69 bpm Height: 5'5" SpO2: 99% Weight: 177 lbs 07/09/2017 Blood Pressure 1: 142/68 Code: 8480-6 BMI: 28.3 Code: 81315-1 Heart Rate 1: 48 bpm Height: 5'5" SpO2: 97% Weight: 170 lbs 04/29/2017 Blood Pressure 1: 148/86 Code: 8480-6 BMI: 28.6 Code: 10712-2 Heart Rate 1: 71 bpm Height: 5'5" SpO2: 95% Weight: 172 lbs 01/07/2017 Blood Pressure 1: 140/70 Code: 8480-6 BMI: 28.8 Code: 91758-6 Heart Rate 1: 68 bpm Height: 5'5" SpO2: 96% Weight: 173 lbs 09/08/2016 Blood Pressure 1: 134/70 Code: 8480-6 BMI: 29.1 Code: 97430-6 Heart Rate 1: 68 bpm Height: 5'5" SpO2: 99% Weight: 175 lbs 05/11/2016 Blood Pressure 1: 138/88 Code: 8480-6 BMI: 29.2 Code: 41774-8 Heart Rate 1: 67 bpm Height: 5'6" SpO2: 95% Weight: 178 lbs 02/10/2016 Blood Pressure 1: 148/82 Code: 8480-6 BMI: 28.8 Code: 20530-8 Heart Rate 1: 63 bpm Height: 5'6" SpO2: 97% Weight: 176 lbs 12/18/2015 Blood Pressure 1: 130/78 Code: 8480-6 BMI: 28.8 Code: 06537-6 Heart Rate 1: 66 bpm Height: 5'6" SpO2: 98% Weight: 176 lbs 12/16/2015 Blood Pressure 1: 162/100 Code: 8480-6 BMI: 28.8 Code: 32272-4 Heart Rate 1: 65 bpm Height: 5'6" SpO2: 98% Weight: 176 lbs 12/09/2015 Blood Pressure 1: 142/70 Code: 8480-6 BMI: 28.4 Code: 14506-9 Heart Rate 1: 65 bpm Height: 5'6" SpO2: 96% Weight: 173 lbs 10/28/2015 Blood Pressure 1: 160/82 Code: 8480-6 Blood Pressure 1: 140/86 Code: 8480-6 BMI: 28.5 Code: 35540-8 Heart Rate 1: 60 bpm Height: 5'6" SpO2: 96% Weight: 174 lbs 08/26/2015 Blood Pressure 1: 158/80 Code: 8480-6 Blood Pressure 1: 148/88 Code: 8480-6 BMI: 28.0 Code: 77664-1 Heart Rate 1: 68 bpm Height: 5'6" SpO2: 98% Weight: 171 lbs 02/12/2015 Blood Pressure 1: 136/74 Code: 8480-6 BMI: 25.9 Code: 41885-8 Heart Rate 1: 61 bpm Height: 5'6" SpO2: 97% Weight: 158 lbs 11/12/2014 Blood Pressure 1: 140/82 Code: 8480-6 BMI: 25.9 Code: 55591-6 Heart Rate 1: 64 bpm Height: 5'6" SpO2: 97% Weight: 158 lbs 07/23/2014 Blood Pressure 1: 138/88 Code: 8480-6 BMI: 25.6 Code: 91580-0 Heart Rate 1: 57 bpm Height: 5'6" SpO2: 95% Weight: 156 lbs 03/21/2014 Blood Pressure 1: 124/64 Code: 8480-6 Heart Rate 1: 64 bpm Weight: 147 lbs 01/25/2014 Blood Pressure 1: 130/70 Code: 8480-6 BMI: 24.4 Code: 88184-1 Height: 5'6" Weight: 149 lbs 10/23/2013 Blood Pressure 1: 152/82 Code: 8480-6 BMI: 25.7 Code: 10037-8 Heart Rate 1: 60 bpm Height: 5'6" Weight: 157 lbs 08/21/2013 Blood Pressure 1: 142/90 Code: 8480-6 BMI: 25.9 Code: 32280-5 Heart Rate 1: 56 bpm Height: 5'6" Weight: 158 lbs 07/20/2013 Blood Pressure 1: 164/80 Code: 8480-6 BMI: 26.2 Code: 92203-7 Heart Rate 1: 60 bpm Height: 5'6" SpO2: 98% Weight: 160 lbs 06/22/2013 Blood Pressure 1: 140/84 Code: 8480-6 BMI: 28.2 Code: 36549-7 Heart Rate 1: 60 bpm Height: 5'6" Weight: 172 lbs Functional Status No Functional Status data History of Present Illness Symptom Name Status Result Effective Date Notes hypertension Quality chronic 06/16/2018 None hypertension Quality [...] Directive data Encounters Encounter Performer Location Codes ([id number]) EST. PATIENT, LEVEL IV Diagnosis: Malignant neoplasm of upper lobe, left bronchus or lung[ICD10: C34.12] Diagnosis: Solitary pulmonary nodule[ICD10: R91.1] Diagnosis: Essential (primary) hypertension[ICD10: I10] Diagnosis: Low back pain[ICD10: M54.5] Diagnosis: Tobacco use[ICD10: Z72.0] [facility] CPT-4: 49184 06/16/2018 ([id number]) 34309 EST. PATIENT, LEVEL IV Diagnosis: Essential (primary) hypertension[ICD10: I10] Diagnosis: Major depressive disorder, recurrent, moderate[ICD10: F33.1] Diagnosis: Low back pain[ICD10: M54.5] Diagnosis: Rash and other nonspecific skin eruption[ICD10: R21] Marily Gonzalez MD, [facility] CPT-4: 27490 03/25/2018 ([id number]) 71432 EST. PATIENT, LEVEL IV Diagnosis: Essential (primary) hypertension[ICD10: I10] Diagnosis: Mixed hyperlipidemia[ICD10: E78.2] Diagnosis: Malignant neoplasm of upper lobe, left bronchus or lung[ICD10: C34.12] Diagnosis: Impaired fasting glucose[ICD10: R73.01] Diagnosis: Cervicalgia[ICD10: M54.2] Diagnosis: Low back pain[ICD10: M54.5] Marily Gonzalez MD, [facility] CPT-4: 80504 11/25/2017 ([id number]) 83138 EST. PATIENT, LEVEL III Diagnosis: Essential (primary) hypertension[ICD10: I10] Marily Gonzalez MD, [facility] CPT-4: 30994 07/09/2017 ([id number]) 87352 EST. PATIENT, LEVEL III Diagnosis: Gas pain[ICD10: R14.1] Diagnosis: Rash and other nonspecific skin eruption[ICD10: R21] Marily Gonzalez MD, [facility] CPT-4: 76418 04/29/2017 ([id number]) 93028 EST. PATIENT, LEVEL III Diagnosis: Essential (primary) hypertension[ICD10: I10] Diagnosis: Malignant neoplasm of upper lobe, left bronchus or lung[ICD10: C34.12] Diagnosis: Chronic obstructive pulmonary disease, unspecified[ICD10: J44.9] Marily Gonzalez MD, [facility] CPT-4: 58218 01/07/2017 ([id number]) 76770 EST. PATIENT, LEVEL IV Diagnosis: Essential (primary) hypertension[ICD10: I10] Diagnosis: Mixed hyperlipidemia[ICD10: E78.2] Diagnosis: Tobacco use[ICD10: Z72.0] Diagnosis: Malignant neoplasm of upper lobe, left bronchus or lung[ICD10: C34.12] Marily Gonzalez MD, [facility] CPT-4: 09581 09/08/2016 ([id number]) 08043 EST. PATIENT, LEVEL IV Diagnosis: Essential (primary) hypertension[ICD10: I10] Diagnosis: Mixed hyperlipidemia[ICD10: E78.2] Diagnosis: Generalized anxiety disorder[ICD10: F41.1] Diagnosis: Other specified disorders of bone density and structure, multiple sites[ICD10: M85.89] Marily Gonzalez MD, [facility] CPT-4: 11125 05/11/2016 ([id number]) 60792 EST. PATIENT, LEVEL IV Diagnosis: Essential (primary) hypertension[ICD10: I10] Diagnosis: Generalized anxiety disorder[ICD10: F41.1] Diagnosis: Tobacco use[ICD10: Z72.0] Marily Gonzalez MD, [facility] CPT-4: 53079 02/10/2016 [id number] EST. PATIENT, LEVEL IV Diagnosis: Myalgia[ICD10: M79.1] Diagnosis: Low back pain[ICD10: M54.5] Joy Gonzalez MD, [facility] CPT-4: 54491 12/18/2015 [id number] EST. PATIENT, LEVEL IV Diagnosis: Low back pain[ICD10: M54.5] Diagnosis: Pain in right hip[ICD10: M25.551] Joy Gonzalez MD, [facility] CPT-4: 93269 12/16/2015 ([id number]) 70522 EST. PATIENT, LEVEL IV Diagnosis: Low back pain[ICD10: M54.5] Diagnosis: Malignant neoplasm of upper lobe, left bronchus or lung[ICD10: C34.12] Diagnosis: Tobacco use[ICD10: Z72.0] Diagnosis: Essential (primary) hypertension[ICD10: I10] Diagnosis: Generalized anxiety disorder[ICD10: F41.1] Marily Gonzalez MD, [facility] CPT-4: 97882 12/09/2015 ([id number]) 12669 EST. PATIENT, LEVEL IV Diagnosis: Essential (primary) hypertension[ICD10: I10] Diagnosis: Tobacco use[ICD10: Z72.0] Diagnosis: Solitary pulmonary nodule[ICD10: R91.1] [facility] CPT-4: 53525 10/28/2015 ([id number]) 88267 EST. PATIENT, LEVEL IV Diagnosis: Essential (primary) hypertension[ICD10: I10] Diagnosis: Bilateral primary osteoarthritis of hip[ICD10: M16.0] Diagnosis: Solitary pulmonary nodule[ICD10: R91.1] Marily Gonzalez MD, [facility] CPT-4: 71658 08/26/2015 ([id number]) 73856 EST. PATIENT, LEVEL IV Diagnosis: ESSENTIAL HYPERTENSION[ICD9: 401.9] Diagnosis: Pulmonary nodule[ICD9: 793.11] Teresa Gonzalez MD, [facility] CPT-4: 88987 02/12/2015 ([id number]) 39110 EST. PATIENT, LEVEL III Diagnosis: ACUTE BRONCHITIS[ICD9: 466.0] Diagnosis: ALLERGIC RHINITIS[ICD9: 477.9] Teresa Gonzalez MD, [facility] CPT-4: 15259 11/12/2014 ([id number]) 25746 EST. PATIENT, LEVEL IV Diagnosis: ESOPHAGEAL REFLUX[ICD9: 530.81] Diagnosis: ESSENTIAL HYPERTENSION[ICD9: 401.9] Diagnosis: Elevated blood sugar[ICD9: 790.29] Marily Gonzalez MD, [facility] CPT- 4: 41238 07/23/2014 ([id number]) 96129 EST. PATIENT, LEVEL III Diagnosis: Vaginal yeast infection[ICD9: 112.1] Diagnosis: Vaginal burning[ICD9: 625.8] Diagnosis: History of UTI[ICD9: V13.02] Diagnosis: Dysuria[ICD9: 788.1] Marily Gonzalez MD, [facility] CPT-4: 54510 03/21/2014 ([id number]) 82486 EST. PATIENT, LEVEL III Diagnosis: ESSENTIAL HYPERTENSION[ICD9: 401.9] Marily Gonzalez MD, [facility] CPT-4: 70458 01/25/2014 ([id number]) 74257 EST. PATIENT, LEVEL III Diagnosis: ESSENTIAL HYPERTENSION[SNOMED: 23721742] Diagnosis: ESOPHAGEAL REFLUX[ICD9: 530.81] Teresa Gonzalez MD, [facility] CPT-4: 18675 10/23/2013 ([id number]) 80791 EST. PATIENT, LEVEL IV Diagnosis: ESOPHAGEAL REFLUX[ICD9: 530.81] Diagnosis: ESSENTIAL HYPERTENSION[SNOMED: 15327770] Diagnosis: Rash[ICD9: 782.1] Marily Gonzalez MD, [facility] CPT-4: 75609 08/21/2013 ([id number]) 52444 EST. PATIENT, LEVEL IV Diagnosis: Muscle ache of extremity[ICD9: 729.1] Diagnosis: Tingling in extremities[ICD9: 782.0] Diagnosis: ESSENTIAL HYPERTENSION[SNOMED: 42628190] Diagnosis: GERD (gastroesophageal reflux disease)[ICD9: 530.81] Diagnosis: Elevated blood sugar[ICD9: 790.29] [facility] CPT- 4: 98714 07/20/2013 OFFICE VISIT, NEW - LEVEL 3 Diagnosis: ESSENTIAL HYPERTENSION[SNOMED: 47433101] Diagnosis: Tobacco use[ICD9: 305.1] Diagnosis: Depression[ICD9: 311] [facility] CPT-4: 23311 06/22/2013 ([id number]) BEHAV CHNG SMOKING 3-10 MIN Diagnosis: [ICD9: ] [facility] CPT-4: 63712 06/22/2013 Plan of Care Planned Activity Notes Codes Status Date Patient Education: Patient Medication Summary Completed 06/27/2018 Care Plan: SCREENINGMAMMOGRAPHYDIGITAL LOINC : 12661-8 Pending 06/27/2018 Visit Plan: Lung nodule -right lung -on surveillance -patient also has history of left lung cancer with lobectomy -does not want to go to for oncology -wants to see Dr Mata at [facility] in [place] -will send referral Lumbar radiculopathy -rx for gabapentin provided and instructed on use - recommend patient return to Dr Herrera to discussed epidural injections HTN-controlled- no changes Tobacco use-patient continues to smoke and is not interested in quitting -smoking cessation encouraged 06/16/2018 Appointment: Marily Valerio WPtel: [address] [place], [place] [phone] (30 min) [facility] 06/16/2018 Patient Education: Patient Medication Summary Completed [...] start PT 03/25/2018 Appointment: Marily Valerio WPtel: [phone] (15 min) Moderate 03/25/2018 Patient Education: Patient [...] vs PT 11/25/2017 Appointment: Marily Valerio WPtel: [address] [place], [place] [phone] (15 min) Moderate 11/25/2017 Patient Education: Patient Medication Summary Completed 11/25/2017 Care Plan: X-RAY EXAM L-S SPINE 2/3 VWS LOINC : 22063-2 Pending 11/25/2017 Care Plan: X-RAY EXAM NECK SPINE 2-3 VW LOINC : 49057-3 Pending 11/25/2017 Appointment: Marily Valerio WPtel: [address] [place], [place] [phone] (15 min) Moderate 11/02/2017 Visit Plan: Hypertension [...] Dr Ryan 07/09/2017 Appointment: Marily Valerio WPtel: [facility]9 [phone] (15 min) Moderate 07/09/2017 Patient Education: Patient Medication Summary Completed 07/09/2017 Patient Education: Smoking and Tobacco Addiction Completed 07/09/2017 Appointment: Marily Valerio WPtel: [facility]6 [phone] (15 min) Moderate 07/08/2017 Visit Plan: Gas and bloating-cut out dairy x 2 weeks-increase gas x to TID-call if symptoms uncontrolled Rash-rx for nystatin powder provided-keep clean/dry-call if does not resolve or if any worse 04/29/2017 Appointment: Marily Valerio WPtel: [facility]5 [facility] [place] [address] (15 min) Moderate 04/29/2017 Patient Education: Patient [...] nicotine patches 01/07/2017 Appointment: Marily Valerio WPtel: [facility] [place] [address] (15 min) Moderate 01/07/2017 Patient Education: Patient Medication Summary Completed 01/07/2017 Patient Education: Smoking and Tobacco Addiction Completed 01/07/2017 Patient Education: Hypertension Completed 01/07/2017 Appointment: Marily Valerio WPtel: [address] [place], [place] [phone] [place] [address] (30 min) Complex 01/05/2017 Visit Plan: Hypertension [...] Ryan in 09/08/2016 Appointment: Marily Valerio WPtel: [address] [place] [address] (15 min) Moderate 09/08/2016 Patient Education: Patient [...] bone density 05/11/2016 Appointment: Marily Valerio WPtel: [address] [place], [place] [phone] (15 min) Moderate 05/11/2016 Patient Education: Patient [...] Care Plan: MRI LUMBAR SPINE W/O DYE [facility] : 15526-5 Cancelled 01/17/2016 Visit Plan: Continued Low back [...] they worsen. 12/18/2015 Appointment: Marily Valerio WPtel: [phone] (30 min) Complex 12/18/2015 Patient Education: Patient [...] they worsen. 12/16/2015 Appointment: Joy Flores WPtel: [facility] (15 min) Moderate 12/16/2015 Patient Education: Patient [...] to have left upper lobe removed at [facility] this week to schedule Tobacco use-no cigarettes [...] blood pressure readings at home. Arthritis of ywck-wjet-kuhvm mobic-monitor symptoms-check labs Left lung nodule- most recent scan shows slight increase in size and needs further evaluation- managed by Dr Corea-[facility] is this week 08/26/2015 Appointment: Marily Valerio WPtel: [address] [facility] [phone] (30 min) Complex 08/26/2015 Patient Education: Patient Medication Summary Completed 08/26/2015 Patient Education: Hypertension Completed 08/26/2015 Appointment: Teresa Gonzalez WPtel: [facility]5 [facility] (15 min) Moderate 08/15/2015 Appointment: Teresa Gonzalez WPtel: [facility]5 [facility] (15 min) Moderate 08/15/2015 Visit Plan: Hypertension - well controlled - continue with current medications, continue with no added salt diet. Pt has been encouraged to exercise daily. The pt has been advised to call the office if there are any acute concerns about change in blood pressure readings at home. Pulmonary nodule - Recommended repeat CT scan. 02/12/2015 Appointment: Teresa Gonzalez WPtel: [facility]5 [facility] Follow up 02/12/2015 Patient Education: Patient Medication [...] bloating-use dicyclomine prn Elevated blood sugar-check Hgb P8Q-adm back on sweets/carbs 07/23/2014 Appointment: Follow up [...] at home. 01/25/2014 Appointment: Marily Valerio WPtel: [address] [place], [place] [phone] Follow up 01/25/2014 Patient Education: Patient Medication [...] an EGD by Dr. Mckeon. 10/23/2013 Appointment: [facility] [address] [facility] Follow [facility] 10/23/2013 Patient Education: Patient [...] any worse. 08/21/2013 Appointment: Marily Valerio WPtel: [facility]5 [phone] Follow up 08/21/2013 Patient Education: Patient Medication [...] with Dr Combs as scheduled Tingling of yupnxomdkie-nobmcpse-avont labs including vitamin b12 and vitamin d Elevated blood sugar-check hgb a1c 07/20/2013 Appointment: Marily Valerio WPtel: [facility]5 [phone] [place] Follow up 07/20/2013 Patient Education: Patient Medication [...] quit date. 06/22/2013 Appointment: Marily Valerio WPtel: [address] [place], [place] [phone] New Patient 06/22/2013 Patient Education: Patient Medication Summary Completed 06/22/2013 Patient Education: Hypertension Completed 06/22/2013 Patient Education: Smoking and Tobacco Addiction Completed 06/22/2013 Instructions Comment Monitor your blood pressure at home and [...] start wellbutrin 1 week before quit date. Dr Mata at [facility] ( or wednesday) gabapentin 100mg at bedtime screening mammogram make an appt with Dr Herrera to discuss epidural injections . Lung nodule -right lung -on surveillance -patient also has history of left lung cancer with lobectomy -does not want to go to for oncology -wants to see Dr Mata at [facility] in [place] -will send referral Lumbar radiculopathy -rx for gabapentin provided and instructed on use - recommend patient return to Dr Herrera to discussed epidural injections HTN-controlled- no changes Tobacco use-patient continues to smoke and is not interested in quitting - smoking cessation encouraged Stop the Statin today, start Co Q [...] with Dr Combs as scheduled Tingling of qvrriwqevro-pguazdsr-rzqkf labs including vitamin b12 and vitamin d [...] bloating-use dicyclomine prn Elevated blood sugar-check Hgb P8W-dke back on sweets/carbs . Hypertension - well [...] blood pressure readings at home. Arthritis of lcik-ykdd-pfqfs mobic-monitor symptoms-check labs Left lung nodule-most recent [...] for an EGD by Dr. Mckeon. . Hypertension - well controlled - continue with current medications, continue with no added salt diet. Pt has been encouraged to exercise daily. The pt has been advised to call the office if there are any acute concerns about change in blood pressure readings at home. Lung cancer-PREM lobectomy 06/2017-followed by OLLIE and Dr Ryan . Joint Injection - Right SI joint [...] not improve or if they worsen. . Medicare Exam - today we discussed [...] back pain-spinal stenosis-patient to start PT BONE DENSITY-[employer] MON-THURS FLU AND PREVNAR 13 . Hypertension [...]
--- OUTSIDE RECORDS SUMMARY | 2019-03-31 09:44 | XMS REPORT | CCD ---
Author Author Marily Valerio MD, 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 Unknown Has never used illegal drugs 06/22/2013 Allergies, Adverse Reactions, Alerts Substance Reaction Codes Entered Date Inactivated Date Status lisinopril cough, RxNorm: 59760 06/22/2013 No Inactive Date Active SULFA (SULFONAMIDE [...] Instructions nystatin 100,000 unit/gram topical cream RxNorm: 762203 1 Application TOP BID 06/16/2018 06/29/2018 Active gabapentin 100 mg capsule RxNorm: 283610 1 Capsule(s) PO UD 06/16/2018 07/15/2018 Active 1 po q HS x 1 week then 2 po q HS x 1 week then increase to 3 q HS amlodipine 10 mg tablet RxNorm: 222903 TAKE ONE TABLET BY MOUTH EVERY DAY 05/26/2018 11/21/2018 Active Lipitor 10 mg tablet RxNorm: 852762 Tablet(s) TAKE ONE TABLET BY MOUTH EVERY OTHER DAY 05/25/2018 02/18/2019 Active Lexapro 20 mg tablet RxNorm: 044929 1 Tablet(s) PO QPM 03/25/2018 09/20/2018 Active olmesartan 40 mg tablet RxNorm: 942473 1 Tablet(s) PO daily 03/25/2018 04/23/2018 Inactive nystatin 100,000 unit/gram topical cream RxNorm: 426445 1 Application TOP BID 03/25/2018 04/07/2018 Inactive Lipitor 10 mg tablet RxNorm: 580542 TAKE ONE TABLET BY MOUTH EVERY OTHER DAY 03/18/2018 12/11/2018 Active Diovan 320 mg tablet RxNorm: 995675 TAKE ONE TABLET BY MOUTH DAILY 03/18/2018 03/24/2018 Inactive metoprolol tartrate 100 mg tablet RxNorm: 490286 TAKE ONE TABLET BY MOUTH TWICE A DAY 01/05/2018 10/01/2018 Active Diovan 320 mg tablet RxNorm: 725115 TAKE ONE TABLET BY MOUTH EVERY DAY 12/16/2017 03/17/2018 Inactive Lexapro 10 mg tablet RxNorm: 902884 1 Tablet(s) PO QPM 11/25/2017 03/24/2018 Inactive amlodipine 10 mg tablet RxNorm: 694242 TAKE ONE TABLET BY MOUTH EVERY DAY 11/15/2017 05/13/2018 Inactive Lipitor 10 mg tablet RxNorm: 448261 TAKE ONE TABLET BY MOUTH EVERY OTHER DAY 10/18/2017 03/17/2018 Inactive dicyclomine 10 mg capsule RxNorm: 229013 TAKE ONE CAPSULE BY MOUTH THREE TIMES A DAY NEEDED 08/12/2017 07/26/2020 Active Lipitor 10 mg tablet RxNorm: 176650 TAKE ONE TABLET BY MOUTH EVERY OTHER DAY 07/12/2017 10/17/2017 Inactive Diovan 320 mg tablet RxNorm: 948757 TAKE ONE TABLET BY MOUTH EVERY DAY 06/09/2017 12/05/2017 Inactive dicyclomine 10 mg capsule RxNorm: 139155 TAKE ONE CAPSULE BY MOUTH THREE TIMES A DAY NEEDED 05/05/2017 08/02/2017 Inactive nystatin 100,000 unit/gram topical powder RxNorm: 904271 1 Application TOP BID 04/29/2017 05/08/2017 Inactive Diovan 320 mg tablet RxNorm: 236509 TAKE ONE TABLET BY MOUTH EVERY DAY 03/10/2017 06/07/2017 Inactive dicyclomine 10 mg capsule RxNorm: 184523 TAKE ONE CAPSULE BY MOUTH THREE TIMES A DAY NEEDED 02/04/2017 05/04/2017 Inactive amlodipine 10 mg tablet RxNorm: 483478 TAKE ONE TABLET BY MOUTH EVERY DAY 02/04/2017 10/31/2017 Inactive Lipitor 10 mg tablet RxNorm: 305953 TAKE ONE TABLET BY MOUTH EVERY OTHER DAY 02/04/2017 07/11/2017 Inactive Fish Oil 1,000 mg capsule RxNorm: 1 Capsule(s) PO TID 01/07/2017 No Stop Date Active metoprolol tartrate 100 mg tablet RxNorm: 206704 1 Tablet(s) PO BID TAKE ONE TABLET BY MOUTH TWICE A DAY 01/07/2017 01/01/2018 Inactive Diovan 320 mg tablet RxNorm: 949086 TAKE ONE TABLET BY MOUTH EVERY DAY 11/05/2016 03/04/2017 Inactive Lipitor 10 mg tablet RxNorm: 783173 1 Tablet(s) PO every other day 09/08/2016 01/05/2017 Inactive dc livalo dicyclomine 10 mg capsule RxNorm: 120459 TAKE ONE CAPSULE BY MOUTH THREE TIMES A DAY NEEDED 07/30/2016 01/25/2017 Inactive Diovan 320 mg tablet RxNorm: 462369 TAKE ONE TABLET BY MOUTH EVERY DAY 06/15/2016 11/04/2016 Inactive Lipitor 10 mg tablet RxNorm: 538421 1 Tablet(s) PO every other day 05/25/2016 05/24/2016 Inactive dc livalo Lipitor 10 mg tablet RxNorm: 129294 1 Tablet(s) PO every other day 05/25/2016 09/07/2016 Inactive dc livalo Livalo 2 mg tablet RxNorm: 496350 1 Tablet(s) PO daily 05/20/2016 05/19/2016 Inactive Livalo 2 mg tablet RxNorm: 810829 1 Tablet(s) PO daily 05/20/2016 05/24/2016 Inactive Celexa 10 mg tablet RxNorm: 610827 1 Tablet(s) PO daily 02/10/2016 11/24/2017 Inactive amlodipine 10 mg tablet RxNorm: 917486 TAKE ONE TABLET BY MOUTH EVERY DAY 02/03/2016 02/02/2016 Inactive amlodipine 10 mg tablet RxNorm: 616674 TAKE ONE TABLET BY MOUTH EVERY DAY 02/03/2016 01/27/2017 Inactive amlodipine 10 mg tablet RxNorm: 036765 TAKE ONE TABLET BY MOUTH EVERY DAY 02/03/2016 04/27/2017 Inactive metoprolol tartrate 100 mg tablet RxNorm: 392445 TAKE ONE TABLET BY MOUTH TWICE A DAY 2016 01/06/2017 Inactive Diovan 320 mg tablet RxNorm: 938901 TAKE ONE TABLET BY MOUTH EVERY DAY 12/19/2015 06/14/2016 Inactive Wellbutrin XL 150 mg 24 hr tablet, extended release RxNorm: 222135 1 Tablet(s) PO daily 12/09/2015 02/09/2016 Inactive tramadol 50 mg tablet RxNorm: 238622 1-2 Tablet(s) PO Q6 PRN 12/09/2015 11/24/2017 Inactive Mobic 7.5 mg tablet RxNorm: 482271 TAKE ONE TABLET BY MOUTH DAILY 11/11/2015 11/24/2017 Inactive dicyclomine 10 mg capsule RxNorm: 159431 TAKE ONE CAPSULE BY MOUTH THREE TIMES A DAY NEEDED 11/11/2015 07/29/2016 Inactive Wellbutrin 75 mg tablet RxNorm: 529070 1 Tablet(s) PO BID 10/28/2015 12/08/2015 Inactive simvastatin 20 mg tablet RxNorm: 444738 TAKE ONE TABLET BY MOUTH EVERY DAY 09/05/2015 2016 Inactive Mobic 7.5 mg tablet RxNorm: 506105 1 Tablet(s) PO daily 08/26/2015 11/10/2015 Inactive estradiol 0.5 mg tablet RxNorm: 780123 TAKE ONE TABLET BY MOUTH EVERY DAY 06/11/2015 03/06/2016 Inactive amlodipine 10 mg tablet RxNorm: 948871 TAKE ONE TABLET BY MOUTH EVERY DAY 04/19/2015 01/13/2016 Inactive dicyclomine 10 mg capsule RxNorm: 736224 TAKE ONE CAPSULE BY MOUTH THREE TIMES A DAY NEEDED 04/19/2015 10/15/2015 Inactive simvastatin 20 mg tablet RxNorm: 657357 TAKE ONE TABLET BY MOUTH EVERY DAY 02/21/2015 08/19/2015 Inactive Diovan 320 mg tablet RxNorm: 625476 TAKE ONE TABLET BY MOUTH EVERY DAY 12/19/2014 12/18/2015 Inactive cephalexin 500 mg capsule RxNorm: 696278 1 Capsule(s) PO TID 11/13/2014 11/19/2014 Inactive prednisone 10 mg tablet RxNorm: 610880 3 Tablet(s) PO daily 11/13/2014 11/17/2014 Inactive prednisone 10 mg tablet RxNorm: 028125 3 Tablet(s) PO daily 11/12/2014 11/12/2014 Inactive Kenalog 40 mg/mL suspension for injection RxNorm: 5992988 Milliliter(s) Inj 11/12/2014 11/12/2014 Inactive cephalexin 500 mg capsule RxNorm: 051320 1 Capsule(s) PO TID 11/12/2014 11/12/2014 Inactive ceftriaxone 500 mg solution for injection RxNorm: 9531443 Inj 11/12/2014 11/12/2014 Inactive dicyclomine 10 mg capsule RxNorm: 853674 TAKE ONE CAPSULE BY MOUTH THREE TIMES A DAY NEEDED 11/08/2014 04/18/2015 Inactive metoprolol tartrate 100 mg tablet RxNorm: 361862 TAKE ONE TABLET BY MOUTH TWICE A DAY 10/18/2014 2015 Inactive metoprolol tartrate 100 mg tablet RxNorm: 618878 1 Tablet(s) PO BID 10/18/2014 10/12/2015 Inactive simvastatin 20 mg tablet RxNorm: 769629 TAKE ONE TABLET BY MOUTH EVERY DAY 08/21/2014 02/16/2015 Inactive Diovan 320 mg tablet RxNorm: 246700 TAKE ONE TABLET BY MOUTH EVERY DAY 08/21/2014 12/18/2014 Inactive Carafate 1 gram tablet RxNorm: 151202 1 Tablet(s) PO AC & HS MIX WITH 30ML WATER 07/23/2014 11/24/2017 Inactive dissolve in water and drink as slurry dicyclomine 10 mg capsule RxNorm: 395539 1 Capsule(s) PO TID PRN 07/23/2014 10/20/2014 Inactive simvastatin 20 mg tablet RxNorm: 656191 TAKE ONE TABLET BY MOUTH EVERY DAY 06/07/2014 08/20/2014 Inactive estradiol 0.5 mg tablet RxNorm: 354721 TAKE ONE TABLET BY MOUTH EVERY DAY 05/16/2014 05/10/2015 Inactive amlodipine 10 mg tablet RxNorm: 221187 TAKE ONE TABLET BY MOUTH EVERY DAY 05/16/2014 04/18/2015 Inactive Diovan 320 mg tablet RxNorm: 524979 TAKE ONE TABLET BY MOUTH EVERY DAY 03/26/2014 08/20/2014 Inactive Diflucan 150 mg tablet RxNorm: 994541 1 Tablet(s) PO daily 03/21/2014 03/27/2014 Inactive simvastatin 20 mg tablet RxNorm: 976321 TAKE ONE TABLET BY MOUTH EVERY DAY 03/02/2014 05/30/2014 Inactive estradiol 0.5 mg tablet RxNorm: 631721 TAKE ONE TABLET BY MOUTH EVERY DAY 02/16/2014 05/15/2014 Inactive amlodipine 10 mg tablet RxNorm: 787847 TAKE ONE TABLET BY MOUTH EVERY DAY 02/16/2014 05/15/2014 Inactive pantoprazole 40 mg tablet,delayed release RxNorm: 844823 2 Tablet(s) PO daily 01/25/2014 02/23/2014 Inactive simvastatin 20 mg tablet RxNorm: 266331 Tablet(s) PO TAKE ONE TABLET BY MOUTH EVERY DAY 11/30/2013 03/01/2014 Inactive amlodipine 10 mg tablet RxNorm: 619816 Tablet(s) PO TAKE ONE TABLET BY MOUTH EVERY DAY 11/16/2013 02/15/2014 Inactive metoprolol tartrate 100 mg tablet RxNorm: 261665 1 Tablet(s) PO BID 10/23/2013 10/17/2014 Inactive Diovan 320 mg tablet RxNorm: 069987 Tablet(s) PO TAKE ONE TABLET BY MOUTH EVERY DAY 09/28/2013 03/25/2014 Inactive Carafate 1 gram tablet RxNorm: 980644 1 Tablet(s) PO TID MIX WITH 30ML WATER 09/20/2013 12/18/2013 Inactive estradiol 0.5 mg tablet RxNorm: 273971 1 Tablet(s) PO daily 08/21/2013 02/15/2014 Inactive amlodipine 10 mg tablet RxNorm: 533820 1 Tablet(s) PO daily 08/21/2013 11/15/2013 Inactive simvastatin 20 mg tablet RxNorm: 117429 1 Tablet(s) PO daily 08/21/2013 11/18/2013 Inactive Diovan 320 mg tablet RxNorm: 660412 1 Tablet(s) PO daily 08/21/2013 09/19/2013 Inactive Carafate 1 gram tablet RxNorm: 953716 1 Tablet(s) PO TID MIX WITH 30ML WATER 08/21/2013 09/19/2013 Inactive Diovan 320 mg tablet RxNorm: 048427 1 Tablet(s) PO daily 07/20/2013 08/18/2013 Inactive amlodipine 10 mg tablet RxNorm: 832036 1 Tablet(s) PO daily 07/20/2013 08/18/2013 Inactive estradiol 0.5 mg tablet RxNorm: 680958 1 Tablet(s) PO daily 07/20/2013 08/18/2013 Inactive metoprolol tartrate 100 mg tablet RxNorm: 014693 1 Tablet(s) PO BID 06/22/2013 10/22/2013 Inactive Wellbutrin XL 150 mg 24 hr tablet, extended release RxNorm: 969669 1 Tablet(s) PO daily 06/22/2013 07/19/2013 Inactive pantoprazole 40 mg tablet,delayed release RxNorm: 161737 1 Tablet(s) PO daily No Start Date Active calcium 500 mg tablet RxNorm: 2 Tablet(s) PO BID No Start Date Active glucosamine and gkzgxozrzkv-chvcigoh-oiwk#3 oral RxNorm: 2837 oral No Start Date Active multivitamin tablet RxNorm: 1 Tablet(s) PO daily No Start Date Active aspirin 81 mg tablet RxNorm: 400941 1 Tablet(s) PO daily No Start Date Active Probiotic oral RxNorm: oral No Start Date Active Vitamin D3 1,000 unit capsule RxNorm: 063514 1 Capsule(s) PO daily No Start Date Active Eliquis 5 mg tablet RxNorm: 6432402 1 Tablet(s) PO BID No Start Date Active simvastatin 20 mg tablet RxNorm: 872292 1 Tablet(s) PO daily No Start Date 08/20/2013 Inactive hyoscyamine 0.125 mg sublingual tablet RxNorm: 0436619 1 Tablet(s) SL TID No Start Date 07/22/2014 Inactive metoprolol tartrate 100 mg tablet RxNorm: 826750 1 Tablet(s) PO daily No Start Date 06/21/2013 Inactive amlodipine 10 mg tablet RxNorm: 550225 1 Tablet(s) PO daily No Start Date 07/19/2013 Inactive Diovan 320 mg tablet RxNorm: 717645 1 Tablet(s) PO daily No Start Date 07/19/2013 Inactive Fish Oil 1,000 mg capsule RxNorm: 1 Capsule(s) PO BID No Start Date 01/06/2017 Inactive omeprazole 20 mg tablet,delayed release RxNorm: 921464 1 Tablet(s) PO daily No Start Date 01/25/2014 Inactive estradiol 0.5 mg tablet RxNorm: 114559 1 Tablet(s) PO daily No Start Date 07/19/2013 Inactive Medication Administered Medication Codes Instructions Start Date Status Kenalog 40 mg/mL suspension for injection RxNorm: 8724572 Milliliter 11/12/2014 No longer Active ceftriaxone 500 mg solution for injection RxNorm: 0767287 11/12/2014 No longer Active Immunizations Vaccine Codes [...] Lipid Ord30 C/HDL 3.5 Ratio 11/25/2017 %Hba1C Bjw227 % HbA1c 17492- 6 5.7 % 11/25/2017 %Hba1C Hoc612 Gluc Ave 117 mg/dL 11/25/2017 Tsh Ord6 TSH (3rd IS) 1.06 uIU/mL 11/25/2017 Comp Metabolic Vfy421 NA 141 mEq/L 11/25/2017 Comp Metabolic Doy280 K 4.2 mEq/L 11/25/2017 Comp Metabolic Fum497 CL 103 mEq/L 11/25/2017 Comp Metabolic Jgx846 CO2 31.0 mEq/L 11/25/2017 Comp Metabolic Xit300 ANION GAP 11 11/25/2017 Comp Metabolic Ckw874 GLUCOSE 117 mg/dL 11/25/2017 Comp Metabolic Csd956 Creat 0.8 mg/dL 11/25/2017 Comp Metabolic Rcw221 eGFR 74 ml/min/1.73m2 11/25/2017 Comp Metabolic Jua671 BUN 18 mg/dL 11/25/2017 Comp Metabolic Kdw615 B/C Ratio 22.2 Ratio 11/25/2017 Comp Metabolic Sbn013 CALCIUM 9.4 mg/dL 11/25/2017 Comp Metabolic Usa383 ALK PHOS 62 U/L 11/25/2017 Comp Metabolic Sim982 AST(SGOT) 21 U/L 11/25/2017 Comp Metabolic Qky278 ALT(SGPT) 18 U/L 11/25/2017 Comp Metabolic Car716 BILI T 0.4 mg/dL 11/25/2017 Comp Metabolic Axz143 ALBUMIN 4.0 g/dL 11/25/2017 Comp Metabolic Ogw847 TPRO 6.1 g/dL 11/25/2017 Comp Metabolic Uvy935 GLOB 2.1 g/dL 11/25/2017 Comp Metabolic Oem569 A/G Ratio 1.9 Ratio 11/25/2017 Comp Metabolic Xto203 Osmo 284 mOsmo 11/25/2017 Cbc With Differential [...] 37.4 % 11/25/2017 Cbc With Differential Ord2 Irion% 11.2 % 11/25/2017 Cbc With Differential Ord2 [...] 2.03 K/ul 11/25/2017 Cbc With Differential Ord2 Irion ABS# 0.6 K/ul 11/25/2017 Cbc With Differential [...] 97.9 fl 05/11/2016 Cbc With Differential Ord2 Irion% 9.5 % 05/11/2016 Cbc With Differential Ord2 MCH 31.8 pg 05/11/2016 Cbc With Differential Ord2 Eos% 1.9 % 05/11/2016 Cbc With Differential Ord2 MCHC 32.5 pg 05/11/2016 Cbc With Differential Ord2 PLT 302 K/ul 05/11/2016 Cbc With Differential Ord2 Baso% 0.6 % 05/11/2016 Cbc With Differential Ord2 Neut ABS# 2.30 K/ul 05/11/2016 Cbc With Differential Ord2 RDW 13.8 % 05/11/2016 Cbc With Differential Ord2 Lymph ABS# 1.76 K/ul 05/11/2016 Cbc With Differential Ord2 Irion ABS# 0.4 K/ul 05/11/2016 Cbc With Differential Ord2 Eos ABS# 0.1 K/ul 05/11/2016 Cbc With Differential Ord2 Baso ABS# 0.0 K/ul 05/11/2016 Comp Metabolic Mth715 NA 139 mEq/L 05/11/2016 Comp Metabolic Ibe999 K 4.6 mEq/L 05/11/2016 Comp Metabolic Nfi857 CL 104 mEq/L 05/11/2016 Comp Metabolic Wnj638 CO2 30.0 mEq/L 05/11/2016 Comp Metabolic Imr252 ANION GAP 10 05/11/2016 Comp Metabolic Knd216 GLUCOSE 113 mg/dL 05/11/2016 Comp Metabolic Fhj849 Creat 0.8 mg/dL 05/11/2016 Comp Metabolic Yrg105 eGFR 74 ml/min/1.73m2 05/11/2016 Comp Metabolic Gst989 BUN 16 mg/dL 05/11/2016 Comp Metabolic Zhe895 B/C Ratio 19.8 Ratio 05/11/2016 Comp Metabolic Xja061 CALCIUM 10.1 mg/dL 05/11/2016 Comp Metabolic Ish001 ALK PHOS 44 U/L 05/11/2016 Comp Metabolic Mjg105 AST(SGOT) 20 U/L 05/11/2016 Comp Metabolic Ejy395 ALT(SGPT) 17 U/L 05/11/2016 Comp Metabolic Rtv665 BILI T 0.4 mg/dL 05/11/2016 Comp Metabolic Aer837 ALBUMIN 4.1 g/dL 05/11/2016 Comp Metabolic Snz937 TPRO 6.5 g/dL 05/11/2016 Comp Metabolic Gra691 GLOB 2.4 g/dL 05/11/2016 Comp Metabolic Dab300 A/G Ratio 1.8 Ratio 05/11/2016 Comp Metabolic Bll769 Osmo 280 mOsmo 05/11/2016 Tsh Ord6 hTSH II 0.96 uIU/mL 05/11/2016 Lipid Ord30 CHOL 283 mg/dL 05/11/2016 Lipid Ord30 HDL 53.0 mg/dl 05/11/2016 Lipid Ord30 TRIG 144 mg/dL 05/11/2016 Lipid Ord30 LDL 201 mg/dL 05/11/2016 Lipid Ord30 C/HDL 5.3 Ratio 05/11/2016 C-Reactive Protein Qnt Crqnt CRP 0.5 mg/dl 12/18/2015 Vitamin D 25 Oh Yfc1364 VITAMIN D, 25 HYDROXY 84.50 ng/mL 12/18/2015 Comp Metabolic Vny249 NA 139 mEq/L 12/18/2015 Comp Metabolic Lob967 K 3.8 mEq/L 12/18/2015 Comp Metabolic Tfa155 CL 103 mEq/L 12/18/2015 Comp Metabolic Dlo206 CO2 31.0 mEq/L 12/18/2015 Comp Metabolic Gac877 ANION GAP 9 12/18/2015 Comp Metabolic Fna647 GLUCOSE 107 mg/dL 12/18/2015 Comp Metabolic Tzf870 Creat 0.8 mg/dL 12/18/2015 Comp Metabolic Fmm136 eGFR 80 ml/min/1.73m2 12/18/2015 Comp Metabolic Ypf706 BUN 19 mg/dL 12/18/2015 Comp Metabolic Kby764 B/C Ratio 25.0 Ratio 12/18/2015 Comp Metabolic Ich382 CALCIUM 9.1 mg/dL 12/18/2015 Comp Metabolic Hio040 ALK PHOS 42 U/L 12/18/2015 Comp Metabolic Zgr419 AST(SGOT) 17 U/L 12/18/2015 Comp Metabolic Tyq854 ALT(SGPT) 18 U/L 12/18/2015 Comp Metabolic Fop212 BILI T 0.3 mg/dL 12/18/2015 Comp Metabolic Iui999 ALBUMIN 3.8 g/dL 12/18/2015 Comp Metabolic Fqx995 TPRO 5.9 g/dL 12/18/2015 Comp Metabolic Mpg144 GLOB 2.1 g/dL 12/18/2015 Comp Metabolic Dxo720 A/G Ratio 1.8 Ratio 12/18/2015 Comp Metabolic Erp548 Osmo 280 mOsmo 12/18/2015 Sed Rate Ord21 [...] 32.0 pg 12/18/2015 Cbc With Differential Ord2 Irion% 9.3 % 12/18/2015 Cbc With Differential Ord2 [...] 1.45 K/ul 12/18/2015 Cbc With Differential Ord2 Irion ABS# 0.5 K/ul 12/18/2015 Cbc With Differential [...] 31.6 pg 09/02/2015 Cbc With Differential Ord2 Irion% 8.8 % 09/02/2015 Cbc With Differential Ord2 [...] 1.53 K/ul 09/02/2015 Cbc With Differential Ord2 Irion ABS# 0.5 K/ul 09/02/2015 Cbc With Differential Ord2 Eos ABS# 0.1 K/ul 09/02/2015 Cbc With Differential Ord2 Baso ABS# 0.0 K/ul 09/02/2015 Cbc With Differential Ord2 New Analyzer Notice Please note new ref ranges starting 08-14-2015 due to implemntation of new five part differential hematolgy analyzer. 09/02/2015 Tsh Ord6 hTSH II 1.41 uIU/mL 09/02/2015 Comp Metabolic Xpz081 NA 136 mEq/L 09/02/2015 Comp Metabolic Ccg277 K 4.5 mEq/L 09/02/2015 Comp Metabolic Sfa283 CL 103 mEq/L 09/02/2015 Comp Metabolic Btu518 CO2 27.0 mEq/L 09/02/2015 Comp Metabolic Azq875 ANION GAP 11 09/02/2015 Comp Metabolic Eiq402 GLUCOSE 109 mg/dL 09/02/2015 Comp Metabolic Xjo783 Creat 1.0 mg/dL 09/02/2015 Comp Metabolic Jct459 eGFR 62 ml/min/1.73m2 09/02/2015 Comp Metabolic Ycs639 BUN 21 mg/dL 09/02/2015 Comp Metabolic Zod496 B/C Ratio 22.1 Ratio 09/02/2015 Comp Metabolic Jon616 CALCIUM 9.3 mg/dL 09/02/2015 Comp Metabolic Wjq704 ALK PHOS 37 U/L 09/02/2015 Comp Metabolic Vqo422 AST(SGOT) 19 U/L 09/02/2015 Comp Metabolic Dit128 ALT(SGPT) 16 U/L 09/02/2015 Comp Metabolic Fug285 BILI T 0.4 mg/dL 09/02/2015 Comp Metabolic Dld638 ALBUMIN 4.1 g/dL 09/02/2015 Comp Metabolic Yww196 TPRO 6.3 g/dL 09/02/2015 Comp Metabolic Arm800 GLOB 2.2 g/dL 09/02/2015 Comp Metabolic Hdj331 A/G Ratio 1.8 Ratio 09/02/2015 Comp Metabolic Xzx973 Osmo 276 mOsmo 09/02/2015 A1C HPLC 1207923 A1C HPLC 42317-2 5.6 % 07/23/2014 VIT D TOTL 0568365 VIT D TOTL 52 NG/ML 07/20/2013 GFR CALC 5345111 GFR AA >60 ML/MIN 07/20/2013 GFR CALC 5449513 GFR NON-AA >60 ML/MIN 07/20/2013 CBC 7504617 WBC 5.9 10e9/L 07/20/2013 CBC 9819500 RBC 4.79 10e12/L 07/20/2013 CBC 7831105 HGB 15.5 g/dL 07/20/2013 CBC 6867029 HCT DET 46.1 % 07/20/2013 CBC 8599153 MCV 96.2 fL 07/20/2013 CBC 1513873 MCH 32.4 pg 07/20/2013 CBC 0112879 MCHC 33.6 g/dL 07/20/2013 CBC 3377638 PLT 286 10e9/L 07/20/2013 CBC 0426468 MPV 10.8 fL 07/20/2013 CBC 2723035 ERINN % 66.1 % 07/20/2013 CBC 2328177 LY % 24.3 % 07/20/2013 CBC 3270892 MON % 8.1 % 07/20/2013 CBC 0025002 EOS % 1.2 % 07/20/2013 CBC 0585637 BASO % 0.3 % 07/20/2013 CBC 7996358 RDW 12.7 % 07/20/2013 CBC 5289241 ABS ERINN 3.90 10e9/L 07/20/2013 CBC 3580578 ABS LYMPH 1.43 10e9/L 07/20/2013 CBC 3257114 ABS MONO 0.48 10e9/L 07/20/2013 CBC 4659751 ABS EOS 0.07 10e9/L 07/20/2013 CBC 6389664 ABS BASO 0.02 10e9/L 07/20/2013 CBC 5497802 RDW-SD 44.1 fL 07/20/2013 A1C HPLC 9325158 A1C HPLC 95618-2 5.9 % 07/20/2013 LIPID GRP HDL TEST 54 MG/DL 07/20/2013 LIPID GRP TRIG 98 MG/DL 07/20/2013 LIPID GRP 5694869 TEST LDL 95 MG/DL 07/20/2013 LIPID GRP CHOL 169 MG/DL 07/20/2013 LIPID GRP RCHOL/HDL 3.13 RATIO 07/20/2013 TSH 4303687 TSH 1.032 uIU/ML 07/20/2013 CHEM 14 0969027 AST 18 U/L 07/20/2013 CHEM 14 9388762 ALT 13 IU/L 07/20/2013 CHEM 14 9573717 BUN 19 MG/DL 07/20/2013 CHEM 14 5840885 ALBUMIN 4.5 GM/DL 07/20/2013 CHEM 14 3876360 CHLORIDE 105 MMOL/L 07/20/2013 CHEM 14 6651974 BILI TOT 0.5 MG/DL 07/20/2013 CHEM 14 5472818 ALK PHOS 40 U/L 07/20/2013 CHEM 14 2148482 SODIUM 137 MMOL/L 07/20/2013 CHEM 14 4980721 CREATININE 0.76 MG/DL 07/20/2013 CHEM 14 3291973 CALCIUM 10.0 MG/DL 07/20/2013 CHEM 14 6369429 POTASSIUM 4.6 MMOL/L 07/20/2013 CHEM 14 7433275 PROT TOT 6.5 GM/DL 07/20/2013 CHEM 14 6838563 GLUCOSE 118 MG/DL 07/20/2013 CHEM 14 4118096 BICARB 26 MMOL/L 07/20/2013 CHEM 14 3215871 ANION GAP 6 MEQ/L 07/20/2013 VIT B 12 4651761 VIT B 12 492 PG/ML 07/20/2013 Review [...] SUBSEQ VISIT CPT- 4: G0439 12/03/2017 TOBACCO-USE HOME CARE GIVER 3-[address]: 609242396 CPT-4: G0436 09/08/2016 ADMIN INFLUENZA VIRUS VAC CPT-4: G0008 05/11/2016 PNEUMOCOCCAL VACC 13 SAULO IM Formatting Model/CDA Sections, Assigned to/Rafia Cuadra SNOMED CT: 19639275 CPT-4: 86537Rbypnin 05/11/2016 ADMIN PNEUMOCOCCAL VACCINE SNOMED CT: 93130855 CPT-4: G0009 05/11/2016 FLU VACC 4 SAULO 3 YRS PLUS IM Formatting Model/CDA Sections, Assigned to/Rafia Cuadra SNOMED CT: 26807432 CPT-4: 78713Jbakfxi 05/11/2016 TOBACCO-USE HOME CARE GIVER 3-[address]: 404301734 CPT-4: G0436 02/10/2016 TRIAMCINOLONE ACET INJ NOS CPT-4: J3301 12/16/2015 DRAIN/INJECT JOINT/BURSA CPT-4: 01860 12/16/2015 TOBACCO-USE HOME CARE GIVER 3-[address]: 824528529 CPT-4: G0436 12/09/2015 TOBACCO-USE HOME CARE GIVER 3-[address]: 687233884 CPT-4: G0436 10/28/2015 THER/PROPH/DIAG INJ SC/IM CPT-4: 75907 11/12/2014 TRIAMCINOLONE ACET INJ NOS CPT-4: J3301 11/12/2014 ROCEPHIN, PER 250 MG CPT- 4: J0696 11/12/2014 ROUTINE VENIPUNCTURE CPT- 4: 10478 07/23/2014 URINALYSIS NONAUTO W/O SCOPE CPT-4: 93217 03/21/2014 ROUTINE VENIPUNCTURE CPT- 4: 79987 07/20/2013 PRESCRIP TRANSMIT VIA ERX SY CPT-4: G8553 07/20/2013 PRESCRIP TRANSMIT VIA ERX SY CPT-4: G8553 06/22/2013 PARTIAL REMOVAL OF LUNG CPT-4: 96191 Unknown Vital Signs Date Vital 06/16/2018 Blood Pressure 1: 146/84 Code: 8480-6 BMI: 30.6 Code: 33477-2 Heart Rate 1: 68 bpm Height: 5'5" SpO2: 99% Weight: 184 lbs 03/25/2018 Blood Pressure 1: 144/80 Code: 8480-6 BMI: 30.0 Code: 73964-4 Heart Rate 1: 65 bpm Height: 5'5" SpO2: 98% Weight: 180 lbs 12/03/2017 Blood Pressure 1: 142/86 Code: 8480-6 BMI: 29.5 Code: 06142-6 Heart Rate 1: 74 bpm Height: 5'5" SpO2: 93% Weight: 177 lbs 11/25/2017 Blood Pressure 1: 142/84 Code: 8480-6 BMI: 29.5 Code: 51521-4 Heart Rate 1: 69 bpm Height: 5'5" SpO2: 99% Weight: 177 lbs 07/09/2017 Blood Pressure 1: 142/68 Code: 8480-6 BMI: 28.3 Code: 98348-2 Heart Rate 1: 48 bpm Height: 5'5" SpO2: 97% Weight: 170 lbs 04/29/2017 Blood Pressure 1: 148/86 Code: 8480-6 BMI: 28.6 Code: 85457-8 Heart Rate 1: 71 bpm Height: 5'5" SpO2: 95% Weight: 172 lbs 01/07/2017 Blood Pressure 1: 140/70 Code: 8480-6 BMI: 28.8 Code: 99047-6 Heart Rate 1: 68 bpm Height: 5'5" SpO2: 96% Weight: 173 lbs 09/08/2016 Blood Pressure 1: 134/70 Code: 8480-6 BMI: 29.1 Code: 85440-1 Heart Rate 1: 68 bpm Height: 5'5" SpO2: 99% Weight: 175 lbs 05/11/2016 Blood Pressure 1: 138/88 Code: 8480-6 BMI: 29.2 Code: 68961-8 Heart Rate 1: 67 bpm Height: 5'6" SpO2: 95% Weight: 178 lbs 02/10/2016 Blood Pressure 1: 148/82 Code: 8480-6 BMI: 28.8 Code: 00059-3 Heart Rate 1: 63 bpm Height: 5'6" SpO2: 97% Weight: 176 lbs 12/18/2015 Blood Pressure 1: 130/78 Code: 8480-6 BMI: 28.8 Code: 82037-3 Heart Rate 1: 66 bpm Height: 5'6" SpO2: 98% Weight: 176 lbs 12/16/2015 Blood Pressure 1: 162/100 Code: 8480-6 BMI: 28.8 Code: 82722-1 Heart Rate 1: 65 bpm Height: 5'6" SpO2: 98% Weight: 176 lbs 12/09/2015 Blood Pressure 1: 142/70 Code: 8480-6 BMI: 28.4 Code: 69280-4 Heart Rate 1: 65 bpm Height: 5'6" SpO2: 96% Weight: 173 lbs 10/28/2015 Blood Pressure 1: 160/82 Code: 8480-6 Blood Pressure 1: 140/86 Code: 8480-6 BMI: 28.5 Code: 42705-4 Heart Rate 1: 60 bpm Height: 5'6" SpO2: 96% Weight: 174 lbs 08/26/2015 Blood Pressure 1: 158/80 Code: 8480-6 Blood Pressure 1: 148/88 Code: 8480-6 BMI: 28.0 Code: 15009-9 Heart Rate 1: 68 bpm Height: 5'6" SpO2: 98% Weight: 171 lbs 02/12/2015 Blood Pressure 1: 136/74 Code: 8480-6 BMI: 25.9 Code: 53172-6 Heart Rate 1: 61 bpm Height: 5'6" SpO2: 97% Weight: 158 lbs 11/12/2014 Blood Pressure 1: 140/82 Code: 8480-6 BMI: 25.9 Code: 91442-7 Heart Rate 1: 64 bpm Height: 5'6" SpO2: 97% Weight: 158 lbs 07/23/2014 Blood Pressure 1: 138/88 Code: 8480-6 BMI: 25.6 Code: 92331-6 Heart Rate 1: 57 bpm Height: 5'6" SpO2: 95% Weight: 156 lbs 03/21/2014 Blood Pressure 1: 124/64 Code: 8480-6 Heart Rate 1: 64 bpm Weight: 147 lbs 01/25/2014 Blood Pressure 1: 130/70 Code: 8480-6 BMI: 24.4 Code: 79052-1 Height: 5'6" Weight: 149 lbs 10/23/2013 Blood Pressure 1: 152/82 Code: 8480-6 BMI: 25.7 Code: 37013-4 Heart Rate 1: 60 bpm Height: 5'6" Weight: 157 lbs 08/21/2013 Blood Pressure 1: 142/90 Code: 8480-6 BMI: 25.9 Code: 23156-9 Heart Rate 1: 56 bpm Height: 5'6" Weight: 158 lbs 07/20/2013 Blood Pressure 1: 164/80 Code: 8480-6 BMI: 26.2 Code: 68182-2 Heart Rate 1: 60 bpm Height: 5'6" SpO2: 98% Weight: 160 lbs 06/22/2013 Blood Pressure 1: 140/84 Code: 8480-6 BMI: 28.2 Code: 52541-2 Heart Rate 1: 60 bpm Height: 5'6" [...] data Encounters Encounter Performer Location Codes Date ([id number]) [id number] EST. PATIENT, LEVEL IV Diagnosis: Malignant neoplasm of upper lobe, left bronchus or lung[ICD10: C34.12] Diagnosis: Solitary pulmonary nodule[ICD10: R91.1] Diagnosis: Essential (primary) hypertension[ICD10: I10] Diagnosis: Low back pain[ICD10: M54.5] Diagnosis: Tobacco use[ICD10: Z72.0] Marily Gonzalez MD, [facility] CPT-4: 88269 06/16/2018 [id number]) [id number] EST. PATIENT, LEVEL IV Diagnosis: Essential (primary) hypertension[ICD10: I10] Diagnosis: Major depressive disorder, recurrent, moderate[ICD10: F33.1] Diagnosis: Low back pain[ICD10: M54.5] Diagnosis: Rash and other nonspecific skin eruption[ICD10: R21] Marily Gonzalez MD, [facility] CPT-4: 10302 03/25/2018 [id number]) 31787 EST. PATIENT, LEVEL IV Diagnosis: Essential (primary) hypertension[ICD10: I10] Diagnosis: Mixed hyperlipidemia[ICD10: E78.2] Diagnosis: Malignant neoplasm of upper lobe, left bronchus or lung[ICD10: C34.12] Diagnosis: Impaired fasting glucose[ICD10: R73.01] Diagnosis: Cervicalgia[ICD10: M54.2] Diagnosis: Low back pain[ICD10: M54.5] Marily Valerio Teresa Lisa MD, [facility] CPT-4: 30026 11/25/2017 ([id number]) 18732 EST. PATIENT, LEVEL III Diagnosis: Essential (primary) hypertension[ICD10: I10] Marily Gonzalez MD, [facility] CPT-4: 93787 07/09/2017 ([id number]) 94134 EST. PATIENT, LEVEL III Diagnosis: Gas pain[ICD10: R14.1] Diagnosis: Rash and other nonspecific skin eruption[ICD10: R21] Marily Gonzalez MD, [facility] CPT-4: 88728 04/29/2017 ([id number]) 63317 EST. PATIENT, LEVEL III Diagnosis: Essential (primary) hypertension[ICD10: I10] Diagnosis: Malignant neoplasm of upper lobe, left bronchus or lung[ICD10: C34.12] Diagnosis: Chronic obstructive pulmonary disease, unspecified[ICD10: J44.9] Marily Gonzalez MD, [facility] CPT-4: 95743 01/07/2017 ([id number]) 10954 EST. PATIENT, LEVEL IV Diagnosis: Essential (primary) hypertension[ICD10: I10] Diagnosis: Mixed hyperlipidemia[ICD10: E78.2] Diagnosis: Tobacco use[ICD10: Z72.0] Diagnosis: Malignant neoplasm of upper lobe, left bronchus or lung[ICD10: C34.12] Marily Gonzalez MD, [facility] CPT-4: 18572 09/08/2016 ([id number]) 40449 EST. 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 CPT-4: 96001 05/11/2016 ([id number]) 20197 EST. PATIENT, LEVEL IV Diagnosis: Essential (primary) hypertension[ICD10: I10] Diagnosis: Generalized anxiety disorder[ICD10: F41.1] Diagnosis: Tobacco use[ICD10: Z72.0] Marily Gonzalez MD, [facility] CPT-4: 55450 02/10/2016 83884 EST. PATIENT, LEVEL IV Diagnosis: Myalgia[ICD10: M79.1] Diagnosis: Low back pain[ICD10: M54.5] Joy Gonzalez MD, [facility] CPT-4: 47493 12/18/2015 [id number] EST. PATIENT, LEVEL IV Diagnosis: Low back pain[ICD10: M54.5] Diagnosis: Pain in right hip[ICD10: M25.551] Joy Gonzalez MD, [facility] CPT-4: 18337 12/16/2015 ([id number]) 83618 EST. PATIENT, LEVEL IV Diagnosis: Low back pain[ICD10: M54.5] Diagnosis: Malignant neoplasm of upper lobe, left bronchus or lung[ICD10: C34.12] Diagnosis: Tobacco use[ICD10: Z72.0] Diagnosis: Essential (primary) hypertension[ICD10: I10] Diagnosis: Generalized anxiety disorder[ICD10: F41.1] Marily Gonzalez MD, [facility] CPT-4: 02605 12/09/2015 ([id number]) 43973 EST. PATIENT, LEVEL IV Diagnosis: Essential (primary) hypertension[ICD10: I10] Diagnosis: Tobacco use[ICD10: Z72.0] Diagnosis: Solitary pulmonary nodule[ICD10: R91.1] Marily Gonzalez MD, [facility] CPT-4: 13933 10/28/2015 ([id number]) 93181 EST. PATIENT, LEVEL IV Diagnosis: Essential (primary) hypertension[ICD10: I10] Diagnosis: Bilateral primary osteoarthritis of hip[ICD10: M16.0] Diagnosis: Solitary pulmonary nodule[ICD10: R91.1] Marily Gonzalez MD, [facility] CPT-4: 72157 08/26/2015 ([id number]) 72331 EST. PATIENT, LEVEL IV Diagnosis: ESSENTIAL HYPERTENSION[ICD9: 401.9] Diagnosis: Pulmonary nodule[ICD9: 793.11] Teresa Gonzalez MD, [facility] CPT-4: 16994 02/12/2015 ([id number]) 08295 EST. PATIENT, LEVEL III Diagnosis: ACUTE BRONCHITIS[ICD9: 466.0] Diagnosis: ALLERGIC RHINITIS[ICD9: 477.9] Teresa Gonzalez MD, [facility] CPT-4: 17973 11/12/2014 ([id number]) 30293 EST. PATIENT, LEVEL IV Diagnosis: ESOPHAGEAL REFLUX[ICD9: 530.81] Diagnosis: ESSENTIAL HYPERTENSION[ICD9: 401.9] Diagnosis: Elevated blood sugar[ICD9: 790.29] Marily Gonzalez MD, [facility] CPT- 4: 06824 07/23/2014 ([id number]) 18556 EST. PATIENT, LEVEL III Diagnosis: Vaginal yeast infection[ICD9: 112.1] Diagnosis: Vaginal burning[ICD9: 625.8] Diagnosis: History of UTI[ICD9: V13.02] Diagnosis: Dysuria[ICD9: 788.1] Marily Gonzalez MD, [facility] CPT-4: 47417 03/21/2014 ([id number]) 86075 EST. PATIENT, LEVEL III Diagnosis: ESSENTIAL HYPERTENSION[ICD9: 401.9] Marily Gonzalez MD, [facility] CPT-4: 13233 01/25/2014 ([id number]) 36239 EST. PATIENT, LEVEL III Diagnosis: ESSENTIAL HYPERTENSION[SNOMED: 93693050] Diagnosis: ESOPHAGEAL REFLUX[ICD9: 530.81] Teresa Gonzalez MD, [facility] CPT-4: 68901 10/23/2013 ([id number]) 65044 EST. PATIENT, LEVEL IV Diagnosis: ESOPHAGEAL REFLUX[ICD9: 530.81] Diagnosis: ESSENTIAL HYPERTENSION[SNOMED: 13005145] Diagnosis: Rash[ICD9: 782.1] Marily Gonzalez MD, [facility] CPT-4: 66514 08/21/2013 ([id number]) 88960 EST. PATIENT, LEVEL IV Diagnosis: Muscle ache of extremity[ICD9: 729.1] Diagnosis: Tingling in extremities[ICD9: 782.0] Diagnosis: ESSENTIAL HYPERTENSION[SNOMED: 22118984] Diagnosis: GERD (gastroesophageal reflux disease)[ICD9: 530.81] Diagnosis: Elevated blood sugar[ICD9: 790.29] Marily Gonzalez MD, [facility] CPT- 4: 17485 07/20/2013 OFFICE VISIT, NEW - LEVEL 3 Diagnosis: ESSENTIAL HYPERTENSION[SNOMED: 81271675] Diagnosis: Tobacco use[ICD9: 305.1] Diagnosis: Depression[ICD9: 311] [facility] CPT-4: 15576 06/22/2013 ([id number]) BEHAV CHNG SMOKING 3-10 MIN Diagnosis: [ICD9: ] [facility] CPT-4: 65519 06/22/2013 Plan of Care Planned Activity Notes Codes Status Date Visit Plan: Lung nodule -right lung -on surveillance -patient also has history of left lung cancer with lobectomy -does not want to go to for oncology -wants to see Dr Mata at [facility] in [place] -will send referral Lumbar radiculopathy -rx for gabapentin provided and instructed on use - recommend patient return to Dr Herrera to discussed epidural injections HTN-controlled- no changes Tobacco use-patient continues to smoke and is not interested in quitting -smoking cessation encouraged 06/16/2018 Appointment: Marily Valerio WPtel: [facility] [place] [phone] (30 min) Complex 06/16/2018 Patient Education: Patient [...] PT 03/25/2018 Appointment: Marily Valerio WPtel: [phone] [phone] (15 min) Moderate 03/25/2018 Patient Education: Patient [...] vs PT 11/25/2017 Appointment: Marily Valerio WPtel: [address] [place], [place] [phone] (15 min) Moderate 11/25/2017 Patient Education: Patient Medication Summary Completed 11/25/2017 Care Plan: X-RAY EXAM L-S SPINE 2/3 VWS LOINC : 78064-9 Pending 11/25/2017 Care Plan: X-RAY EXAM NECK SPINE 2-3 VW LOINC : 35116-9 Pending 11/25/2017 Appointment: Marily Valerio WPtel: [address] [place], [place] [phone] (15 min) Moderate 11/02/2017 Visit Plan: Hypertension [...] Dr Ryan 07/09/2017 Appointment: Marily Valerio WPtel: [address] [place], [place] [phone] (15 min) Moderate 07/09/2017 Patient Education: Patient Medication Summary Completed 07/09/2017 Patient Education: Smoking and Tobacco Addiction Completed 07/09/2017 Appointment: Marily Valerio WPtel: [address] [place], [place] [phone] (15 min) Moderate 07/08/2017 Visit Plan: Gas and bloating-cut out dairy x 2 weeks-increase gas x to TID-call if symptoms uncontrolled Rash-rx for nystatin powder provided-keep clean/dry-call if does not resolve or if any worse 04/29/2017 Appointment: Marily Valerio WPtel: [address] [place], [place] [phone] (15 min) Moderate 04/29/2017 Patient Education: Patient [...] nicotine patches 01/07/2017 Appointment: Marily Valerio WPtel: [phone] (15 min) Moderate 01/07/2017 Patient Education: Patient Medication Summary Completed 01/07/2017 Patient Education: Smoking and Tobacco Addiction Completed 01/07/2017 Patient Education: Hypertension Completed 01/07/2017 Appointment: Marily Valerio WPtel: [phone] (30 min) Complex 01/05/2017 Visit Plan: Hypertension [...] Ryan in 09/08/2016 Appointment: Marily Valerio WPtel: [phone] (15 min) Moderate 09/08/2016 Patient Education: [...] time Osteopenia-check bone density 05/11/2016 Appointment: Marily Valeiro WPtel: [address] [place], [place] [phone] (15 min) Moderate 05/11/2016 Patient Education: Patient [...] Care Plan: MRI LUMBAR SPINE W/O DYE [facility] : 00274-6 Cancelled 01/17/2016 Visit Plan: Continued Low back [...] they worsen. 12/18/2015 Appointment: [facility] Val[facility]io WPtel[phone] (30 min) Complex 12/18/2015 Patient Education: Patient [...] worsen. 12/16/2015 Appointment: Joy Flores WPtel: [phone] [phone] (15 min) Moderate 12/16/2015 Patient Education: Patient [...] to have left upper lobe removed at [facility] this week to schedule Tobacco use-no [...] blood pressure readings at home. Arthritis of qesf-kyko-kosox mobic-monitor symptoms-check labs Left lung nodule- most recent scan shows slight increase in size and needs further evaluation- managed by Dr Corea-appt is this week 08/26/2015 Appointment: Marily Valerio WPtel: [phone] [phone] [place] (30 min) Complex 08/26/2015 Patient Education: Patient Medication Summary Completed 08/26/2015 Patient Education: Hypertension Completed 08/26/2015 Appointment: Teresa Gonzalez WPtel: [phone] [facility] [place] (15 min) Moderate 08/15/2015 Appointment: Teresa Gonzalez WPtel: [phone] [facility] (15 min) Moderate 08/15/2015 Visit Plan: [...] scan. 02/12/2015 Appointment: Teresa Gonzalez WPtel: [phone] [facility] Follow up 02/12/2015 Patient Education: Patient Medication [...] bloating-use dicyclomine prn Elevated blood sugar-check Hgb W8X-dfk back on sweets/carbs 07/23/2014 Appointment: Follow up [...] at home. 01/25/2014 Appointment: Marily Valerio WPtel: [phone] Follow up 01/25/2014 Patient Education: Patient Medication [...] Mckeon. 10/23/2013 [facility]ment: [phone] Follow up 10/23/2013 Patient Education: Patient [...] any worse. 08/21/2013 Appointment: Marily Valerio WPtel: [address] [place] [address] Follow up 08/21/2013 Patient Education: Patient Medication [...] with Dr Combs as scheduled Tingling of ivciarmrnmx-mhasqxqh-bobek labs including vitamin b12 and vitamin d Elevated blood sugar-check hgb a1c 07/20/2013 Appointment: Marily Valerio WPtel: [phone] Follow up 07/20/2013 Patient Education: Patient Medication [...] quit date. 06/22/2013 Appointment: Marily Valerio WPtel: [phone] New Patient 06/22/2013 Patient Education: Patient Medication [...] not resolve or if any worse. BONE DENSITY-[employer] FLU AND PREVNAR 13 . Hypertension [...] with Dr Combs as scheduled Tingling of ncazxfwjqsh-mvuzfzov-qyxdi labs including vitamin b12 and vitamin d [...] change in blood pressure readings at home. PERM lung cancer-not a surgical candidate-post radiation-seeing Dr [...] do not improve or if they worsen. Dr Mata at [facility] ( or wednesday) gabapentin 100mg at bedtime screening mammogram make an appt with Dr Herrera to discuss epidural injections . Lung nodule -right lung -on surveillance -patient also has history of left lung cancer with lobectomy -does not want to go to for oncology -wants to see Dr Mata at [facility] in [place] -will send referral Lumbar radiculopathy -rx for [...] to have left upper lobe [facility] to schedule Tobacco use-no cigarettes [...] blood pressure readings at home. Arthritis of iomw-ctlm-mrzlr mobic-monitor symptoms-check labs Left lung nodule-most recent [...] bloating-use dicyclomine prn Elevated blood sugar-check Hgb B5O-ikf back on sweets/carbs . Hypertension - well [...]
--- OUTSIDE RECORDS SUMMARY | 2019-03-31 09:47 | XMS REPORT | CCD ---
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 Unknown Has never used illegal drugs 06/22/2013 Allergies, Adverse Reactions, Alerts Substance Reaction Codes Entered Date Inactivated Date Status lisinopril cough, RxNorm: 73752 06/22/2013 No Inactive Date Active SULFA (SULFONAMIDE [...] Instructions nystatin 100,000 unit/gram topical cream RxNorm: 556588 1 Application TOP BID 06/16/2018 06/29/2018 Active gabapentin 100 mg capsule RxNorm: 512907 1 Capsule(s) PO UD 06/16/2018 07/15/2018 Active 1 po q HS x 1 week then 2 po q HS x 1 week then increase to 3 q HS amlodipine 10 mg tablet RxNorm: 048953 TAKE ONE TABLET BY MOUTH EVERY DAY 05/26/2018 11/21/2018 Active Lipitor 10 mg tablet RxNorm: 676725 Tablet(s) TAKE ONE TABLET BY MOUTH EVERY OTHER DAY 05/25/2018 02/18/2019 Active Lexapro 20 mg tablet RxNorm: 990782 1 Tablet(s) PO QPM 03/25/2018 09/20/2018 Active olmesartan 40 mg tablet RxNorm: 518922 1 Tablet(s) PO daily 03/25/2018 04/23/2018 Inactive nystatin 100,000 unit/gram topical cream RxNorm: 176903 1 Application TOP BID 03/25/2018 04/07/2018 Inactive Lipitor 10 mg tablet RxNorm: 942854 TAKE ONE TABLET BY MOUTH EVERY OTHER DAY 03/18/2018 12/11/2018 Active Diovan 320 mg tablet RxNorm: 846403 TAKE ONE TABLET BY MOUTH DAILY 03/18/2018 03/24/2018 Inactive metoprolol tartrate 100 mg tablet RxNorm: 953833 TAKE ONE TABLET BY MOUTH TWICE A DAY 01/05/2018 10/01/2018 Active Diovan 320 mg tablet RxNorm: 136519 TAKE ONE TABLET BY MOUTH EVERY DAY 12/16/2017 03/17/2018 Inactive Lexapro 10 mg tablet RxNorm: 530613 1 Tablet(s) PO QPM 11/25/2017 03/24/2018 Inactive amlodipine 10 mg tablet RxNorm: 041128 TAKE ONE TABLET BY MOUTH EVERY DAY 11/15/2017 05/13/2018 Inactive Lipitor 10 mg tablet RxNorm: 198054 TAKE ONE TABLET BY MOUTH EVERY OTHER DAY 10/18/2017 03/17/2018 Inactive dicyclomine 10 mg capsule RxNorm: 001772 TAKE ONE CAPSULE BY MOUTH THREE TIMES A DAY NEEDED 08/12/2017 07/26/2020 Active Lipitor 10 mg tablet RxNorm: 552242 TAKE ONE TABLET BY MOUTH EVERY OTHER DAY 07/12/2017 10/17/2017 Inactive Diovan 320 mg tablet RxNorm: 288209 TAKE ONE TABLET BY MOUTH EVERY DAY 06/09/2017 12/05/2017 Inactive dicyclomine 10 mg capsule RxNorm: 417207 TAKE ONE CAPSULE BY MOUTH THREE TIMES A DAY NEEDED 05/05/2017 08/02/2017 Inactive nystatin 100,000 unit/gram topical powder RxNorm: 149185 1 Application TOP BID 04/29/2017 05/08/2017 Inactive Diovan 320 mg tablet RxNorm: 834859 TAKE ONE TABLET BY MOUTH EVERY DAY 03/10/2017 06/07/2017 Inactive dicyclomine 10 mg capsule RxNorm: 889614 TAKE ONE CAPSULE BY MOUTH THREE TIMES A DAY NEEDED 02/04/2017 05/04/2017 Inactive amlodipine 10 mg tablet RxNorm: 485643 TAKE ONE TABLET BY MOUTH EVERY DAY 02/04/2017 10/31/2017 Inactive Lipitor 10 mg tablet RxNorm: 802179 TAKE ONE TABLET BY MOUTH EVERY OTHER DAY 02/04/2017 07/11/2017 Inactive Fish Oil 1,000 mg capsule RxNorm: 1 Capsule(s) PO TID 01/07/2017 No Stop Date Active metoprolol tartrate 100 mg tablet RxNorm: 993848 1 Tablet(s) PO BID TAKE ONE TABLET BY MOUTH TWICE A DAY 01/07/2017 01/01/2018 Inactive Diovan 320 mg tablet RxNorm: 515013 TAKE ONE TABLET BY MOUTH EVERY DAY 11/05/2016 03/04/2017 Inactive Lipitor 10 mg tablet RxNorm: 566979 1 Tablet(s) PO every other day 09/08/2016 01/05/2017 Inactive dc livalo dicyclomine 10 mg capsule RxNorm: 800712 TAKE ONE CAPSULE BY MOUTH THREE TIMES A DAY NEEDED 07/30/2016 01/25/2017 Inactive Diovan 320 mg tablet RxNorm: 117017 TAKE ONE TABLET BY MOUTH EVERY DAY 06/15/2016 11/04/2016 Inactive Lipitor 10 mg tablet RxNorm: 078134 1 Tablet(s) PO every other day 05/25/2016 05/24/2016 Inactive dc livalo Lipitor 10 mg tablet RxNorm: 543350 1 Tablet(s) PO every other day 05/25/2016 09/07/2016 Inactive dc livalo Livalo 2 mg tablet RxNorm: 514400 1 Tablet(s) PO daily 05/20/2016 05/19/2016 Inactive Livalo 2 mg tablet RxNorm: 225241 1 Tablet(s) PO daily 05/20/2016 05/24/2016 Inactive Celexa 10 mg tablet RxNorm: 384196 1 Tablet(s) PO daily 02/10/2016 11/24/2017 Inactive amlodipine 10 mg tablet RxNorm: 691049 TAKE ONE TABLET BY MOUTH EVERY DAY 02/03/2016 02/02/2016 Inactive amlodipine 10 mg tablet RxNorm: 005438 TAKE ONE TABLET BY MOUTH EVERY DAY 02/03/2016 01/27/2017 Inactive amlodipine 10 mg tablet RxNorm: 144760 TAKE ONE TABLET BY MOUTH EVERY DAY 02/03/2016 04/27/2017 Inactive metoprolol tartrate 100 mg tablet RxNorm: 028620 TAKE ONE TABLET BY MOUTH TWICE A DAY 2016 01/06/2017 Inactive Diovan 320 mg tablet RxNorm: 652971 TAKE ONE TABLET BY MOUTH EVERY DAY 12/19/2015 06/14/2016 Inactive Wellbutrin XL 150 mg 24 hr tablet, extended release RxNorm: 937851 1 Tablet(s) PO daily 12/09/2015 02/09/2016 Inactive tramadol 50 mg tablet RxNorm: 995192 1-2 Tablet(s) PO Q6 PRN 12/09/2015 11/24/2017 Inactive Mobic 7.5 mg tablet RxNorm: 791032 TAKE ONE TABLET BY MOUTH DAILY 11/11/2015 11/24/2017 Inactive dicyclomine 10 mg capsule RxNorm: 904026 TAKE ONE CAPSULE BY MOUTH THREE TIMES A DAY NEEDED 11/11/2015 07/29/2016 Inactive Wellbutrin 75 mg tablet RxNorm: 493018 1 Tablet(s) PO BID 10/28/2015 12/08/2015 Inactive simvastatin 20 mg tablet RxNorm: 631718 TAKE ONE TABLET BY MOUTH EVERY DAY 09/05/2015 2016 Inactive Mobic 7.5 mg tablet RxNorm: 528436 1 Tablet(s) PO daily 08/26/2015 11/10/2015 Inactive estradiol 0.5 mg tablet RxNorm: 072244 TAKE ONE TABLET BY MOUTH EVERY DAY 06/11/2015 03/06/2016 Inactive amlodipine 10 mg tablet RxNorm: 701138 TAKE ONE TABLET BY MOUTH EVERY DAY 04/19/2015 01/13/2016 Inactive dicyclomine 10 mg capsule RxNorm: 636723 TAKE ONE CAPSULE BY MOUTH THREE TIMES A DAY NEEDED 04/19/2015 10/15/2015 Inactive simvastatin 20 mg tablet RxNorm: 739908 TAKE ONE TABLET BY MOUTH EVERY DAY 02/21/2015 08/19/2015 Inactive Diovan 320 mg tablet RxNorm: 547131 TAKE ONE TABLET BY MOUTH EVERY DAY 12/19/2014 12/18/2015 Inactive cephalexin 500 mg capsule RxNorm: 315980 1 Capsule(s) PO TID 11/13/2014 11/19/2014 Inactive prednisone 10 mg tablet RxNorm: 265194 3 Tablet(s) PO daily 11/13/2014 11/17/2014 Inactive prednisone 10 mg tablet RxNorm: 528988 3 Tablet(s) PO daily 11/12/2014 11/12/2014 Inactive Kenalog 40 mg/mL suspension for injection RxNorm: 9251558 Milliliter(s) Inj 11/12/2014 11/12/2014 Inactive cephalexin 500 mg capsule RxNorm: 986477 1 Capsule(s) PO TID 11/12/2014 11/12/2014 Inactive ceftriaxone 500 mg solution for injection RxNorm: 1039336 Inj 11/12/2014 11/12/2014 Inactive dicyclomine 10 mg capsule RxNorm: 697842 TAKE ONE CAPSULE BY MOUTH THREE TIMES A DAY NEEDED 11/08/2014 04/18/2015 Inactive metoprolol tartrate 100 mg tablet RxNorm: 385026 TAKE ONE TABLET BY MOUTH TWICE A DAY 10/18/2014 2015 Inactive metoprolol tartrate 100 mg tablet RxNorm: 658603 1 Tablet(s) PO BID 10/18/2014 10/12/2015 Inactive simvastatin 20 mg tablet RxNorm: 318223 TAKE ONE TABLET BY MOUTH EVERY DAY 08/21/2014 02/16/2015 Inactive Diovan 320 mg tablet RxNorm: 097939 TAKE ONE TABLET BY MOUTH EVERY DAY 08/21/2014 12/18/2014 Inactive Carafate 1 gram tablet RxNorm: 524366 1 Tablet(s) PO AC & HS MIX WITH 30ML WATER 07/23/2014 11/24/2017 Inactive dissolve in water and drink as slurry dicyclomine 10 mg capsule RxNorm: 635716 1 Capsule(s) PO TID PRN 07/23/2014 10/20/2014 Inactive simvastatin 20 mg tablet RxNorm: 856210 TAKE ONE TABLET BY MOUTH EVERY DAY 06/07/2014 08/20/2014 Inactive estradiol 0.5 mg tablet RxNorm: 647478 TAKE ONE TABLET BY MOUTH EVERY DAY 05/16/2014 05/10/2015 Inactive amlodipine 10 mg tablet RxNorm: 852481 TAKE ONE TABLET BY MOUTH EVERY DAY 05/16/2014 04/18/2015 Inactive Diovan 320 mg tablet RxNorm: 287318 TAKE ONE TABLET BY MOUTH EVERY DAY 03/26/2014 08/20/2014 Inactive Diflucan 150 mg tablet RxNorm: 465638 1 Tablet(s) PO daily 03/21/2014 03/27/2014 Inactive simvastatin 20 mg tablet RxNorm: 089622 TAKE ONE TABLET BY MOUTH EVERY DAY 03/02/2014 05/30/2014 Inactive estradiol 0.5 mg tablet RxNorm: 544502 TAKE ONE TABLET BY MOUTH EVERY DAY 02/16/2014 05/15/2014 Inactive amlodipine 10 mg tablet RxNorm: 694942 TAKE ONE TABLET BY MOUTH EVERY DAY 02/16/2014 05/15/2014 Inactive pantoprazole 40 mg tablet,delayed release RxNorm: 885819 2 Tablet(s) PO daily 01/25/2014 02/23/2014 Inactive simvastatin 20 mg tablet RxNorm: 525788 Tablet(s) PO TAKE ONE TABLET BY MOUTH EVERY DAY 11/30/2013 03/01/2014 Inactive amlodipine 10 mg tablet RxNorm: 374593 Tablet(s) PO TAKE ONE TABLET BY MOUTH EVERY DAY 11/16/2013 02/15/2014 Inactive metoprolol tartrate 100 mg tablet RxNorm: 326034 1 Tablet(s) PO BID 10/23/2013 10/17/2014 Inactive Diovan 320 mg tablet RxNorm: 226126 Tablet(s) PO TAKE ONE TABLET BY MOUTH EVERY DAY 09/28/2013 03/25/2014 Inactive Carafate 1 gram tablet RxNorm: 189550 1 Tablet(s) PO TID MIX WITH 30ML WATER 09/20/2013 12/18/2013 Inactive estradiol 0.5 mg tablet RxNorm: 434071 1 Tablet(s) PO daily 08/21/2013 02/15/2014 Inactive amlodipine 10 mg tablet RxNorm: 932731 1 Tablet(s) PO daily 08/21/2013 11/15/2013 Inactive simvastatin 20 mg tablet RxNorm: 660572 1 Tablet(s) PO daily 08/21/2013 11/18/2013 Inactive Diovan 320 mg tablet RxNorm: 879963 1 Tablet(s) PO daily 08/21/2013 09/19/2013 Inactive Carafate 1 gram tablet RxNorm: 952331 1 Tablet(s) PO TID MIX WITH 30ML WATER 08/21/2013 09/19/2013 Inactive Diovan 320 mg tablet RxNorm: 137715 1 Tablet(s) PO daily 07/20/2013 08/18/2013 Inactive amlodipine 10 mg tablet RxNorm: 004121 1 Tablet(s) PO daily 07/20/2013 08/18/2013 Inactive estradiol 0.5 mg tablet RxNorm: 155416 1 Tablet(s) PO daily 07/20/2013 08/18/2013 Inactive metoprolol tartrate 100 mg tablet RxNorm: 244394 1 Tablet(s) PO BID 06/22/2013 10/22/2013 Inactive Wellbutrin XL 150 mg 24 hr tablet, extended release RxNorm: 255475 1 Tablet(s) PO daily 06/22/2013 07/19/2013 Inactive pantoprazole 40 mg tablet,delayed release RxNorm: 797455 1 Tablet(s) PO daily No Start Date Active calcium 500 mg tablet RxNorm: 2 Tablet(s) PO BID No Start Date Active glucosamine and bccveaswdmm-jaflqyes-btjp#3 oral RxNorm: 2837 oral No Start Date Active multivitamin tablet RxNorm: 1 Tablet(s) PO daily No Start Date Active aspirin 81 mg tablet RxNorm: 652041 1 Tablet(s) PO daily No Start Date Active Probiotic oral RxNorm: oral No Start Date Active Vitamin D3 1,000 unit capsule RxNorm: 622945 1 Capsule(s) PO daily No Start Date Active Eliquis 5 mg tablet RxNorm: 3658205 1 Tablet(s) PO BID No Start Date Active simvastatin 20 mg tablet RxNorm: 379698 1 Tablet(s) PO daily No Start Date 08/20/2013 Inactive hyoscyamine 0.125 mg sublingual tablet RxNorm: 6954495 1 Tablet(s) SL TID No Start Date 07/22/2014 Inactive metoprolol tartrate 100 mg tablet RxNorm: 265893 1 Tablet(s) PO daily No Start Date 06/21/2013 Inactive amlodipine 10 mg tablet RxNorm: 732677 1 Tablet(s) PO daily No Start Date 07/19/2013 Inactive Diovan 320 mg tablet RxNorm: 795656 1 Tablet(s) PO daily No Start Date 07/19/2013 Inactive Fish Oil 1,000 mg capsule RxNorm: 1 Capsule(s) PO BID No Start Date 01/06/2017 Inactive omeprazole 20 mg tablet,delayed release RxNorm: 509633 1 Tablet(s) PO daily No Start Date 01/25/2014 Inactive estradiol 0.5 mg tablet RxNorm: 808700 1 Tablet(s) PO daily No Start Date 07/19/2013 Inactive Medication Administered Medication Codes Instructions Start Date Status Kenalog 40 mg/mL suspension for injection RxNorm: 9935478 Milliliter 11/12/2014 No longer Active ceftriaxone 500 mg solution for injection RxNorm: 4852791 11/12/2014 No longer Active Immunizations Vaccine Codes [...] Lipid Ord30 C/HDL 3.5 Ratio 11/25/2017 %Hba1C Kjm117 % HbA1c 78978- 6 5.7 % 11/25/2017 %Hba1C Qqf167 Gluc Ave 117 mg/dL 11/25/2017 Tsh Ord6 TSH (3rd IS) 1.06 uIU/mL 11/25/2017 Comp Metabolic Uku536 NA 141 mEq/L 11/25/2017 Comp Metabolic Liz373 K 4.2 mEq/L 11/25/2017 Comp Metabolic Nsf198 CL 103 mEq/L 11/25/2017 Comp Metabolic Lyy349 CO2 31.0 mEq/L 11/25/2017 Comp Metabolic Kam616 ANION GAP 11 11/25/2017 Comp Metabolic Pbj352 GLUCOSE 117 mg/dL 11/25/2017 Comp Metabolic Gmh487 Creat 0.8 mg/dL 11/25/2017 Comp Metabolic Tki690 eGFR 74 ml/min/1.73m2 11/25/2017 Comp Metabolic Wlx692 BUN 18 mg/dL 11/25/2017 Comp Metabolic Gdv388 B/C Ratio 22.2 Ratio 11/25/2017 Comp Metabolic Zbm748 CALCIUM 9.4 mg/dL 11/25/2017 Comp Metabolic Vrl591 ALK PHOS 62 U/L 11/25/2017 Comp Metabolic Hpa368 AST(SGOT) 21 U/L 11/25/2017 Comp Metabolic Dss490 ALT(SGPT) 18 U/L 11/25/2017 Comp Metabolic Rfg459 BILI T 0.4 mg/dL 11/25/2017 Comp Metabolic Ena955 ALBUMIN 4.0 g/dL 11/25/2017 Comp Metabolic Ydm009 TPRO 6.1 g/dL 11/25/2017 Comp Metabolic Ltm917 GLOB 2.1 g/dL 11/25/2017 Comp Metabolic Szi130 A/G Ratio 1.9 Ratio 11/25/2017 Comp Metabolic Hug380 Osmo 284 mOsmo 11/25/2017 Cbc With Differential [...] 31.1 pg 11/25/2017 Cbc With Differential Ord2 [place]% 11.2 % 11/25/2017 Cbc With Differential Ord2 [...] 2.03 K/ul 11/25/2017 Cbc With Differential Ord2 [place] ABS# 0.6 K/ul 11/25/2017 Cbc With Differential [...] 38.1 % 05/11/2016 Cbc With Differential Ord2 [place]% 9.5 % 05/11/2016 Cbc With Differential Ord2 [...] 1.76 K/ul 05/11/2016 Cbc With Differential Ord2 [place] ABS# 0.4 K/ul 05/11/2016 Cbc With Differential Ord2 Eos ABS# 0.1 K/ul 05/11/2016 Cbc With Differential Ord2 Baso ABS# 0.0 K/ul 05/11/2016 Comp Metabolic Lvf692 NA 139 mEq/L 05/11/2016 Comp Metabolic Kki107 K 4.6 mEq/L 05/11/2016 Comp Metabolic Bbj930 CL 104 mEq/L 05/11/2016 Comp Metabolic Aca968 CO2 30.0 mEq/L 05/11/2016 Comp Metabolic Gmn125 ANION GAP 10 05/11/2016 Comp Metabolic Bsg658 GLUCOSE 113 mg/dL 05/11/2016 Comp Metabolic Qnm903 Creat 0.8 mg/dL 05/11/2016 Comp Metabolic Fmz264 eGFR 74 ml/min/1.73m2 05/11/2016 Comp Metabolic Wfh164 BUN 16 mg/dL 05/11/2016 Comp Metabolic Hds318 B/C Ratio 19.8 Ratio 05/11/2016 Comp Metabolic Lci782 CALCIUM 10.1 mg/dL 05/11/2016 Comp Metabolic Dvp251 ALK PHOS 44 U/L 05/11/2016 Comp Metabolic Asm278 AST(SGOT) 20 U/L 05/11/2016 Comp Metabolic Yrf976 ALT(SGPT) 17 U/L 05/11/2016 Comp Metabolic Ocn148 BILI T 0.4 mg/dL 05/11/2016 Comp Metabolic Eju231 ALBUMIN 4.1 g/dL 05/11/2016 Comp Metabolic Mar869 TPRO 6.5 g/dL 05/11/2016 Comp Metabolic Itr090 GLOB 2.4 g/dL 05/11/2016 Comp Metabolic Kzi213 A/G Ratio 1.8 Ratio 05/11/2016 Comp Metabolic Wjo911 Osmo 280 mOsmo 05/11/2016 Tsh Ord6 hTSH II 0.96 uIU/mL 05/11/2016 Lipid Ord30 CHOL 283 mg/dL 05/11/2016 Lipid Ord30 HDL 53.0 mg/dl 05/11/2016 Lipid Ord30 TRIG 144 mg/dL 05/11/2016 Lipid Ord30 LDL 201 mg/dL 05/11/2016 Lipid Ord30 C/HDL 5.3 Ratio 05/11/2016 C-Reactive Protein Qnt Crqnt CRP 0.5 mg/dl 12/18/2015 Vitamin D 25 Oh Atd2744 VITAMIN D, 25 HYDROXY 84.50 ng/mL 12/18/2015 Comp Metabolic Hru541 NA 139 mEq/L 12/18/2015 Comp Metabolic Njr433 K 3.8 mEq/L 12/18/2015 Comp Metabolic Ffw237 CL 103 mEq/L 12/18/2015 Comp Metabolic Jud516 CO2 31.0 mEq/L 12/18/2015 Comp Metabolic Xod741 ANION GAP 9 12/18/2015 Comp Metabolic Voe909 GLUCOSE 107 mg/dL 12/18/2015 Comp Metabolic Xza252 Creat 0.8 mg/dL 12/18/2015 Comp Metabolic Wlr060 eGFR 80 ml/min/1.73m2 12/18/2015 Comp Metabolic Aog002 BUN 19 mg/dL 12/18/2015 Comp Metabolic Lxg801 B/C Ratio 25.0 Ratio 12/18/2015 Comp Metabolic Oge070 CALCIUM 9.1 mg/dL 12/18/2015 Comp Metabolic Wmo257 ALK PHOS 42 U/L 12/18/2015 Comp Metabolic Kgh623 AST(SGOT) 17 U/L 12/18/2015 Comp Metabolic Ryd731 ALT(SGPT) 18 U/L 12/18/2015 Comp Metabolic Hdb463 BILI T 0.3 mg/dL 12/18/2015 Comp Metabolic Lwv337 ALBUMIN 3.8 g/dL 12/18/2015 Comp Metabolic Ifo790 TPRO 5.9 g/dL 12/18/2015 Comp Metabolic Xdy561 GLOB 2.1 g/dL 12/18/2015 Comp Metabolic Rek101 A/G Ratio 1.8 Ratio 12/18/2015 Comp Metabolic Reh740 Osmo 280 mOsmo 12/18/2015 Sed Rate Ord21 [...] 97.6 fl 12/18/2015 Cbc With Differential Ord2 [place]% 9.3 % 12/18/2015 Cbc With Differential Ord2 [...] 1.45 K/ul 12/18/2015 Cbc With Differential Ord2 [place] ABS# 0.5 K/ul 12/18/2015 Cbc With Differential [...] 31.6 pg 09/02/2015 Cbc With Differential Ord2 [place]% 8.8 % 09/02/2015 Cbc With Differential Ord2 [...] 1.53 K/ul 09/02/2015 Cbc With Differential Ord2 [place] ABS# 0.5 K/ul 09/02/2015 Cbc With Differential Ord2 Eos ABS# 0.1 K/ul 09/02/2015 Cbc With Differential Ord2 Baso ABS# 0.0 K/ul 09/02/2015 Cbc With Differential Ord2 New Analyzer Notice Please note new ref ranges starting 08-14-2015 due to implemntation of new five part differential hematolgy analyzer. 09/02/2015 Tsh Ord6 hTSH II 1.41 uIU/mL 09/02/2015 Comp Metabolic Vhh517 NA 136 mEq/L 09/02/2015 Comp Metabolic Bdy363 K 4.5 mEq/L 09/02/2015 Comp Metabolic Cmm441 CL 103 mEq/L 09/02/2015 Comp Metabolic Xjq174 CO2 27.0 mEq/L 09/02/2015 Comp Metabolic Bzq173 ANION GAP 11 09/02/2015 Comp Metabolic Asn714 GLUCOSE 109 mg/dL 09/02/2015 Comp Metabolic Dgs318 Creat 1.0 mg/dL 09/02/2015 Comp Metabolic Hjb941 eGFR 62 ml/min/1.73m2 09/02/2015 Comp Metabolic Kic415 BUN 21 mg/dL 09/02/2015 Comp Metabolic Fcy274 B/C Ratio 22.1 Ratio 09/02/2015 Comp Metabolic Qcr242 CALCIUM 9.3 mg/dL 09/02/2015 Comp Metabolic Pom176 ALK PHOS 37 U/L 09/02/2015 Comp Metabolic Rfh736 AST(SGOT) 19 U/L 09/02/2015 Comp Metabolic Rmo563 ALT(SGPT) 16 U/L 09/02/2015 Comp Metabolic Sou355 BILI T 0.4 mg/dL 09/02/2015 Comp Metabolic Oun629 ALBUMIN 4.1 g/dL 09/02/2015 Comp Metabolic Vip011 TPRO 6.3 g/dL 09/02/2015 Comp Metabolic Zvs734 GLOB 2.2 g/dL 09/02/2015 Comp Metabolic Swq501 A/G Ratio 1.8 Ratio 09/02/2015 Comp Metabolic Lvs967 Osmo 276 mOsmo 09/02/2015 A1C HPLC 7217639 A1C HPLC 12412-2 5.6 % 07/23/2014 VIT D TOTL 5759455 VIT D TOTL 52 NG/ML 07/20/2013 GFR CALC 2715831 GFR AA >60 ML/MIN 07/20/2013 GFR CALC 5292746 GFR NON-AA >60 ML/MIN 07/20/2013 CBC 2788973 WBC 5.9 10e9/L 07/20/2013 CBC 9228751 RBC 4.79 10e12/L 07/20/2013 CBC 0110757 HGB 15.5 g/dL 07/20/2013 CBC 5269545 HCT DET 46.1 % 07/20/2013 CBC 5151021 MCV 96.2 fL 07/20/2013 CBC 1693459 MCH 32.4 pg 07/20/2013 CBC 1750050 MCHC 33.6 g/dL 07/20/2013 CBC 3203168 PLT 286 10e9/L 07/20/2013 CBC 6288673 MPV 10.8 fL 07/20/2013 CBC 5245605 ERINN % 66.1 % 07/20/2013 CBC 4061079 LY % 24.3 % 07/20/2013 CBC 3863814 MON % 8.1 % 07/20/2013 CBC 5151426 EOS % 1.2 % 07/20/2013 CBC 9508809 BASO % 0.3 % 07/20/2013 CBC 0373016 RDW 12.7 % 07/20/2013 CBC 0650689 ABS ERINN 3.90 10e9/L 07/20/2013 CBC 2997370 ABS LYMPH 1.43 10e9/L 07/20/2013 CBC 5843210 ABS MONO 0.48 10e9/L 07/20/2013 CBC 8326645 ABS EOS 0.07 10e9/L 07/20/2013 CBC 5338843 ABS BASO 0.02 10e9/L 07/20/2013 CBC 3064208 RDW-SD 44.1 fL 07/20/2013 A1C HPLC 4459687 A1C HPLC 45210-3 5.9 % 07/20/2013 LIPID GRP HDL TEST 54 MG/DL 07/20/2013 LIPID GRP TRIG 98 MG/DL 07/20/2013 LIPID GRP 0556220 TEST LDL 95 MG/DL 07/20/2013 LIPID GRP CHOL 169 MG/DL 07/20/2013 LIPID GRP RCHOL/HDL 3.13 RATIO 07/20/2013 TSH 8604381 TSH 1.032 uIU/ML 07/20/2013 CHEM 14 3703232 AST 18 U/L 07/20/2013 CHEM 14 4902831 ALT 13 IU/L 07/20/2013 CHEM 14 9329793 BUN 19 MG/DL 07/20/2013 CHEM 14 4494970 ALBUMIN 4.5 GM/DL 07/20/2013 CHEM 14 3970256 CHLORIDE 105 MMOL/L 07/20/2013 CHEM 14 5599829 BILI TOT 0.5 MG/DL 07/20/2013 CHEM 14 2448733 ALK PHOS 40 U/L 07/20/2013 CHEM 14 1672227 SODIUM 137 MMOL/L 07/20/2013 CHEM 14 1692736 CREATININE 0.76 MG/DL 07/20/2013 CHEM 14 2643287 CALCIUM 10.0 MG/DL 07/20/2013 CHEM 14 2633761 POTASSIUM 4.6 MMOL/L 07/20/2013 CHEM 14 1443932 PROT TOT 6.5 GM/DL 07/20/2013 CHEM 14 1124822 GLUCOSE 118 MG/DL 07/20/2013 CHEM 14 2147834 BICARB 26 MMOL/L 07/20/2013 CHEM 14 4358671 ANION GAP 6 MEQ/L 07/20/2013 VIT B 12 9219372 VIT B 12 492 PG/ML 07/20/2013 Review [...] SUBSEQ VISIT CPT- 4: G0439 12/03/2017 TOBACCO-USE [employer]NICIAN 3-[address]: 382531952 CPT-4: G0436 09/08/2016 ADMIN INFLUENZA VIRUS VAC CPT-4: G0008 05/11/2016 PNEUMOCOCCAL VACC 13 SAULO IM Formatting Model/CDA Sections, Assigned to/Rafia Cuadra SNOMED CT: 75214810 CPT-4: 09080Brhcdld 05/11/2016 ADMIN PNEUMOCOCCAL VACCINE SNOMED CT: 14712726 CPT-4: G0009 05/11/2016 FLU VACC 4 SAULO 3 YRS PLUS IM Formatting Model/CDA Sections, Assigned to/Rafia Cuadra SNOMED CT: 29223497 CPT-4: 91193Advhhmb 05/11/2016 TOBACCO-USE [employer] TECHNICIAN 3-[address]: 951537755 CPT-4: G0436 02/10/2016 TRIAMCINOLONE ACET INJ NOS CPT-4: J3301 12/16/2015 DRAIN/INJECT JOINT/BURSA CPT-4: 34278 12/16/2015 TOBACCO-USE [employer] TECHNICIAN 3-[address]: 687930015 CPT-4: G0436 12/09/2015 TOBACCO-USE [employer] TECHNICIAN 3-[address]: 084810417 CPT-4: G0436 10/28/2015 THER/PROPH/DIAG INJ SC/IM CPT-4: 45449 11/12/2014 TRIAMCINOLONE ACET INJ NOS CPT-4: J3301 11/12/2014 ROCEPHIN, PER 250 MG CPT- 4: J0696 11/12/2014 ROUTINE VENIPUNCTURE CPT- 4: 28192 07/23/2014 URINALYSIS NONAUTO W/O SCOPE CPT-4: 05583 03/21/2014 ROUTINE VENIPUNCTURE CPT- 4: 90822 07/20/2013 PRESCRIP TRANSMIT VIA ERX SY CPT-4: G8553 07/20/2013 PRESCRIP TRANSMIT VIA ERX SY CPT-4: G8553 06/22/2013 PARTIAL REMOVAL OF LUNG CPT-4: 77216 Unknown Vital Signs Date Vital 06/16/2018 Blood Pressure 1: 146/84 Code: 8480-6 BMI: 30.6 Code: 73042-7 Heart Rate 1: 68 bpm Height: 5'5" SpO2: 99% Weight: 184 lbs 03/25/2018 Blood Pressure 1: 144/80 Code: 8480-6 BMI: 30.0 Code: 52865-4 Heart Rate 1: 65 bpm Height: 5'5" SpO2: 98% Weight: 180 lbs 12/03/2017 Blood Pressure 1: 142/86 Code: 8480-6 BMI: 29.5 Code: 60831-0 Heart Rate 1: 74 bpm Height: 5'5" SpO2: 93% Weight: 177 lbs 11/25/2017 Blood Pressure 1: 142/84 Code: 8480-6 BMI: 29.5 Code: 63540-8 Heart Rate 1: 69 bpm Height: 5'5" SpO2: 99% Weight: 177 lbs 07/09/2017 Blood Pressure 1: 142/68 Code: 8480-6 BMI: 28.3 Code: 08593-0 Heart Rate 1: 48 bpm Height: 5'5" SpO2: 97% Weight: 170 lbs 04/29/2017 Blood Pressure 1: 148/86 Code: 8480-6 BMI: 28.6 Code: 67832-0 Heart Rate 1: 71 bpm Height: 5'5" SpO2: 95% Weight: 172 lbs 01/07/2017 Blood Pressure 1: 140/70 Code: 8480-6 BMI: 28.8 Code: 61264-7 Heart Rate 1: 68 bpm Height: 5'5" SpO2: 96% Weight: 173 lbs 09/08/2016 Blood Pressure 1: 134/70 Code: 8480-6 BMI: 29.1 Code: 96156-6 Heart Rate 1: 68 bpm Height: 5'5" SpO2: 99% Weight: 175 lbs 05/11/2016 Blood Pressure 1: 138/88 Code: 8480-6 BMI: 29.2 Code: 62706-8 Heart Rate 1: 67 bpm Height: 5'6" SpO2: 95% Weight: 178 lbs 02/10/2016 Blood Pressure 1: 148/82 Code: 8480-6 BMI: 28.8 Code: 26124-5 Heart Rate 1: 63 bpm Height: 5'6" SpO2: 97% Weight: 176 lbs 12/18/2015 Blood Pressure 1: 130/78 Code: 8480-6 BMI: 28.8 Code: 91700-7 Heart Rate 1: 66 bpm Height: 5'6" SpO2: 98% Weight: 176 lbs 12/16/2015 Blood Pressure 1: 162/100 Code: 8480-6 BMI: 28.8 Code: 69584-2 Heart Rate 1: 65 bpm Height: 5'6" SpO2: 98% Weight: 176 lbs 12/09/2015 Blood Pressure 1: 142/70 Code: 8480-6 BMI: 28.4 Code: 95032-0 Heart Rate 1: 65 bpm Height: 5'6" SpO2: 96% Weight: 173 lbs 10/28/2015 Blood Pressure 1: 160/82 Code: 8480-6 Blood Pressure 1: 140/86 Code: 8480-6 BMI: 28.5 Code: 17663-6 Heart Rate 1: 60 bpm Height: 5'6" SpO2: 96% Weight: 174 lbs 08/26/2015 Blood Pressure 1: 158/80 Code: 8480-6 Blood Pressure 1: 148/88 Code: 8480-6 BMI: 28.0 Code: 45256-0 Heart Rate 1: 68 bpm Height: 5'6" SpO2: 98% Weight: 171 lbs 02/12/2015 Blood Pressure 1: 136/74 Code: 8480-6 BMI: 25.9 Code: 25785-9 Heart Rate 1: 61 bpm Height: 5'6" SpO2: 97% Weight: 158 lbs 11/12/2014 Blood Pressure 1: 140/82 Code: 8480-6 BMI: 25.9 Code: 96412-4 Heart Rate 1: 64 bpm Height: 5'6" SpO2: 97% Weight: 158 lbs 07/23/2014 Blood Pressure 1: 138/88 Code: 8480-6 BMI: 25.6 Code: 95848-4 Heart Rate 1: 57 bpm Height: 5'6" SpO2: 95% Weight: 156 lbs 03/21/2014 Blood Pressure 1: 124/64 Code: 8480-6 Heart Rate 1: 64 bpm Weight: 147 lbs 01/25/2014 Blood Pressure 1: 130/70 Code: 8480-6 BMI: 24.4 Code: 58646-5 Height: 5'6" Weight: 149 lbs 10/23/2013 Blood Pressure 1: 152/82 Code: 8480-6 BMI: 25.7 Code: 21280-7 Heart Rate 1: 60 bpm Height: 5'6" Weight: 157 lbs 08/21/2013 Blood Pressure 1: 142/90 Code: 8480-6 BMI: 25.9 Code: 89225-8 Heart Rate 1: 56 bpm Height: 5'6" Weight: 158 lbs 07/20/2013 Blood Pressure 1: 164/80 Code: 8480-6 BMI: 26.2 Code: 61138-5 Heart Rate 1: 60 bpm Height: 5'6" SpO2: 98% Weight: 160 lbs 06/22/2013 Blood Pressure 1: 140/84 Code: 8480-6 BMI: 28.2 Code: 16967-1 Heart Rate 1: 60 bpm Height: 5'6" [...] data Encounters Encounter Performer Location Codes Date ([id number]) [id number] EST. PATIENT, LEVEL IV Diagnosis: Malignant neoplasm of upper lobe, left bronchus or lung[ICD10: C34.12] Diagnosis: Solitary pulmonary nodule[ICD10: R91.1] Diagnosis: Essential (primary) hypertension[ICD10: I10] Diagnosis: Low back pain[ICD10: M54.5] Diagnosis: Tobacco use[ICD10: Z72.0] Marily Gonzalez MD, [facility] CPT-4: 79627 06/16/2018 [id number]) [id number] EST. PATIENT, LEVEL IV Diagnosis: Essential (primary) hypertension[ICD10: I10] Diagnosis: Major depressive disorder, recurrent, moderate[ICD10: F33.1] Diagnosis: Low back pain[ICD10: M54.5] Diagnosis: Rash and other nonspecific skin eruption[ICD10: R21] Marily Gonzalez MD, [facility] CPT-4: 88859 03/25/2018 [id number]) 31411 EST. PATIENT, LEVEL IV Diagnosis: Essential (primary) hypertension[ICD10: I10] Diagnosis: Mixed hyperlipidemia[ICD10: E78.2] Diagnosis: Malignant neoplasm of upper lobe, left bronchus or lung[ICD10: C34.12] Diagnosis: Impaired fasting glucose[ICD10: R73.01] Diagnosis: Cervicalgia[ICD10: M54.2] Diagnosis: Low back pain[ICD10: M54.5] Marily Valerio Teresa Lisa MD, [facility] CPT-4: 79433 11/25/2017 ([id number]) 55869 EST. PATIENT, LEVEL III Diagnosis: Essential (primary) hypertension[ICD10: I10] Marily Gonzalez MD, [facility] CPT-4: 94499 07/09/2017 ([id number]) 57247 EST. PATIENT, LEVEL III Diagnosis: Gas pain[ICD10: R14.1] Diagnosis: Rash and other nonspecific skin eruption[ICD10: R21] Marily Gonzalez MD, [facility] CPT-4: 35507 04/29/2017 ([id number]) 39287 EST. PATIENT, LEVEL III Diagnosis: Essential (primary) hypertension[ICD10: I10] Diagnosis: Malignant neoplasm of upper lobe, left bronchus or lung[ICD10: C34.12] Diagnosis: Chronic obstructive pulmonary disease, unspecified[ICD10: J44.9] Marily Gonzalez MD, [facility] CPT-4: 82576 01/07/2017 ([id number]) 41070 EST. PATIENT, LEVEL IV Diagnosis: Essential (primary) hypertension[ICD10: I10] Diagnosis: Mixed hyperlipidemia[ICD10: E78.2] Diagnosis: Tobacco use[ICD10: Z72.0] Diagnosis: Malignant neoplasm of upper lobe, left bronchus or lung[ICD10: C34.12] Marily Gonzalez MD, [facility] CPT-4: 73053 09/08/2016 ([id number]) 80483 EST. PATIENT, LEVEL IV Diagnosis: Essential (primary) hypertension[ICD10: I10] Diagnosis: Mixed hyperlipidemia[ICD10: E78.2] Diagnosis: Generalized anxiety disorder[ICD10: F41.1] Diagnosis: Other specified disorders of bone density and structure, multiple sites[ICD10: M85.89] Marily Gonzalez MD, [facility] CPT-4: 21953 05/11/2016 ([id number]) 40838 EST. PATIENT, LEVEL IV Diagnosis: Essential (primary) hypertension[ICD10: I10] Diagnosis: Generalized anxiety disorder[ICD10: F41.1] Diagnosis: Tobacco use[ICD10: Z72.0] Marily Gonzalez MD, [facility] CPT-4: 95204 02/10/2016 62948 EST. PATIENT, LEVEL IV Diagnosis: Myalgia[ICD10: M79.1] Diagnosis: Low back pain[ICD10: M54.5] Joy Gonzalez MD, [facility] CPT-4: 93373 12/18/2015 68336 EST. PATIENT, LEVEL IV Diagnosis: Low back pain[ICD10: M54.5] Diagnosis: Pain in right hip[ICD10: M25.551] Joy Gonzalez MD, [facility] CPT-4: 61937 12/16/2015 ([id number]) 84439 EST. PATIENT, LEVEL IV Diagnosis: Low back pain[ICD10: M54.5] Diagnosis: Malignant neoplasm of upper lobe, left bronchus or lung[ICD10: C34.12] Diagnosis: Tobacco use[ICD10: Z72.0] Diagnosis: Essential (primary) hypertension[ICD10: I10] Diagnosis: Generalized anxiety disorder[ICD10: F41.1] Marily Gonzalez MD, [facility] CPT-4: 51788 12/09/2015 ([id number]) 13720 EST. PATIENT, LEVEL IV Diagnosis: Essential (primary) hypertension[ICD10: I10] Diagnosis: Tobacco use[ICD10: Z72.0] Diagnosis: Solitary pulmonary nodule[ICD10: R91.1] Marily Gonzalez MD, [facility] CPT-4: 90946 10/28/2015 ([id number]) 93079 EST. PATIENT, LEVEL IV Diagnosis: Essential (primary) hypertension[ICD10: I10] Diagnosis: Bilateral primary osteoarthritis of hip[ICD10: M16.0] Diagnosis: Solitary pulmonary nodule[ICD10: R91.1] Marily Gonzalez MD, [facility] CPT-4: 48378 08/26/2015 ([id number]) 77911 EST. PATIENT, LEVEL IV Diagnosis: ESSENTIAL HYPERTENSION[ICD9: 401.9] Diagnosis: Pulmonary nodule[ICD9: 793.11] Teresa Gonzalez MD, [facility] CPT-4: 67833 02/12/2015 ([id number]) 88210 EST. PATIENT, LEVEL III Diagnosis: ACUTE BRONCHITIS[ICD9: 466.0] Diagnosis: ALLERGIC RHINITIS[ICD9: 477.9] Teresa Gonzalez MD, [facility] CPT-4: 69187 11/12/2014 ([id number]) 77514 EST. PATIENT, LEVEL IV Diagnosis: ESOPHAGEAL REFLUX[ICD9: 530.81] Diagnosis: ESSENTIAL HYPERTENSION[ICD9: 401.9] Diagnosis: Elevated blood sugar[ICD9: 790.29] Marily Gonzalez MD, [facility] CPT- 4: 80226 07/23/2014 ([id number]) 23466 EST. PATIENT, LEVEL III Diagnosis: Vaginal yeast infection[ICD9: 112.1] Diagnosis: Vaginal burning[ICD9: 625.8] Diagnosis: History of UTI[ICD9: V13.02] Diagnosis: Dysuria[ICD9: 788.1] Marily Gonzalez MD, [facility] CPT-4: 11351 03/21/2014 ([id number]) 02259 EST. PATIENT, LEVEL III Diagnosis: ESSENTIAL HYPERTENSION[ICD9: 401.9] Marily Gonzalez MD, [facility] CPT-4: 86334 01/25/2014 ([id number]) 32541 EST. PATIENT, LEVEL III Diagnosis: ESSENTIAL HYPERTENSION[SNOMED: 13467197] Diagnosis: ESOPHAGEAL REFLUX[ICD9: 530.81] Teresa Gonzalez MD, [facility] CPT-4: 73273 10/23/2013 ([id number]) 86650 EST. PATIENT, LEVEL IV Diagnosis: ESOPHAGEAL REFLUX[ICD9: 530.81] Diagnosis: ESSENTIAL HYPERTENSION[SNOMED: 17448377] Diagnosis: Rash[ICD9: 782.1] Marily Gonzalez MD, [facility] CPT-4: 95550 08/21/2013 ([id number]) 43366 EST. PATIENT, LEVEL IV Diagnosis: Muscle ache of extremity[ICD9: 729.1] Diagnosis: Tingling in extremities[ICD9: 782.0] Diagnosis: ESSENTIAL HYPERTENSION[SNOMED: 39311342] Diagnosis: GERD (gastroesophageal reflux disease)[ICD9: 530.81] Diagnosis: Elevated blood sugar[ICD9: 790.29] Marliy Gonzalez MD, [facility] CPT- 4: 84964 07/20/2013 OFFICE VISIT, NEW - LEVEL 3 Diagnosis: ESSENTIAL HYPERTENSION[SNOMED: 46029918] Diagnosis: Tobacco use[ICD9: 305.1] Diagnosis: Depression[ICD9: 311] [facility] CPT-4: 45196 06/22/2013 ([id number]) BEHAV CHNG SMOKING 3-10 MIN Diagnosis: [ICD9: ] [facility] CPT-4: 88889 06/22/2013 Plan of Care Planned Activity Notes Codes Status Date Visit Plan: Lung nodule -right lung -on surveillance -patient also has history of left lung cancer with lobectomy -does not want to go to for oncology -wants to see Dr Mata at [facility] in [place] -will send referral Lumbar radiculopathy -rx for gabapentin provided and instructed on use - recommend patient return to Dr Herrera to discussed epidural injections HTN-controlled- no changes Tobacco use-patient continues to smoke and is not interested in quitting -smoking cessation encouraged 06/16/2018 Patient Education: Patient Medication Summary Completed [...] start PT 03/25/2018 Appointment: Marily Valerio WPtel: [address] [place], [place] [phone] (15 min) Moderate 03/25/2018 Patient Education: Patient [...] vs PT 11/25/2017 Appointment: Marily Valerio WPtel: [facility] [phone] (15 min) Moderate 11/25/2017 Patient Education: Patient Medication Summary Completed 11/25/2017 Care Plan: X-RAY EXAM L-S SPINE 2/3 VWS LOINC : 90335-2 Pending 11/25/2017 Care Plan: X-RAY EXAM NECK SPINE 2-3 LOINC : 10604-8 Pending 11/25/2017 Appointment: Marily Valerio WPtel: [address] [place] [address] (15 min) Moderate 11/02/2017 Visit Plan: Hypertension [...] Dr Ryan 07/09/2017 Appointment: Marily Valerio WPtel: [address] [place] [address] (15 min) Moderate 07/09/2017 Patient Education: Patient Medication Summary Completed 07/09/2017 Patient Education: Smoking and Tobacco Addiction Completed 07/09/2017 Appointment: Marily Valerio WPtel: [address] [place], [place] [phone] (15 min) Moderate 07/08/2017 Visit Plan: Gas and bloating-cut out dairy x 2 weeks-increase gas x to TID-call if symptoms uncontrolled Rash-rx for nystatin powder provided-keep clean/dry-call if does not resolve or if any worse 04/29/2017 Appointment: Marily Valerio WPtel: [address] [place], [place] [phone] (15 min) Moderate 04/29/2017 Patient Education: Patient [...] nicotine patches 01/07/2017 Appointment: Marily Valerio WPtel: [facility] [phone] (15 min) Moderate 01/07/2017 Patient Education: Patient Medication Summary Completed 01/07/2017 Patient Education: Smoking and Tobacco Addiction Completed 01/07/2017 Patient Education: Hypertension Completed 01/07/2017 Appointment: Marily Valerio WPtel: [facility] [place] [phone] (30 min) Complex 01/05/2017 Visit Plan: Hypertension [...] Ryan in 09/08/2016 Appointment: Marily Valerio WPtel: [facility] [place] [phone] (15 min) Moderate 09/08/2016 Patient Education: Patient [...] bone density 05/11/2016 Appointment: Marily Valerio WPtel: [facility] [place] [phone] (15 min) Moderate 05/11/2016 Patient Education: Patient [...] Care Plan: MRI LUMBAR SPINE W/O DYE INC : 17240-0 Cancelled 01/17/2016 Visit Plan: Continued Low back [...] they worsen. 12/18/2015 Appointment: Marily Valerio WPtel: [phone] [phone] [place] [address] (30 min) Complex 12/18/2015 Patient Education: Patient [...] they worsen. 12/16/2015 Appointment: Joy Flores WPtel: [phone] (15 min) Moderate 12/16/2015 Patient Education: Patient [...] left upper lobe removed at [facility] this week to schedule Tobacco use-no [...] blood pressure readings at home. Arthritis of fhli-tkfl-lrpry mobic-monitor symptoms-check labs Left lung nodule- most recent scan shows slight increase in size and needs further evaluation- managed by Dr Corea-appt is this week 08/26/2015 Appointment: Marily Valerio WPtel: [phone] [phone] [place] (30 min) Complex 08/26/2015 Patient Education: Patient Medication Summary Completed 08/26/2015 Patient Education: Hypertension Completed 08/26/2015 Appointment: Teresa Gonzalez WPtel: [phone] [facility] [place] (15 min) Moderate 08/15/2015 Appointment: Teresa Gonzalez WPtel: [phone] [facility] [place] (15 min) Moderate 08/15/2015 Visit Plan: [...] scan. 02/12/2015 Appointment: Teresa Gonzalez WPtel: [phone] [facility] [place] Follow up 02/12/2015 Patient Education: Patient [...] bloating-use dicyclomine prn Elevated blood sugar-check Hgb E2Q-wuc back on sweets/carbs 07/23/2014 Appointment: Follow up [...] home. 01/25/2014 Appointment: Marily Valerio WPtel: [phone] [facility] [place] [phone] Follow up 01/25/2014 Patient Education: Patient Medication [...] Mckeon. 10/23/2013 Appointment: [facility] [phone] [facility] Follow up 10/23/2013 Patient Education: Patient Medication [...] worse. 08/21/2013 Appointment: Marily Valerio WPtel: [phone] [phone] Follow up 08/21/2013 Patient Education: Patient Medication [...] with Dr Combs as scheduled Tingling of fwhrsnangfc-krqzaxln-fsehr labs including vitamin b12 and vitamin d Elevated blood sugar-check hgb a1c 07/20/2013 Appointment: Marily Valerio WPtel: [phone] [phone] Follow up 07/20/2013 Patient Education: Patient Medication [...] date. 06/22/2013 Appointment: Marily Valerio WPtel: [phone] [facility] [place] [phone] [place] New Patient 06/22/2013 Patient Education: Patient [...] not resolve or if any worse. 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 Hypertension [...] with Dr Combs as scheduled Tingling of pkwkxiziaqx-msprjjvx-wsexd labs including vitamin b12 and vitamin d [...] or if they worsen. Dr Mata at [facility] ( or wednesday) gabapentin 100mg at bedtime screening mammogram make an appt with Dr Herrera to discuss epidural injections . Lung nodule -right lung -on surveillance -patient also has history of left lung cancer with lobectomy -does not want to go to for oncology -wants to see Dr Mata at [facility] in [place] -will send referral Lumbar radiculopathy -rx for [...] blood pressure readings at home. Arthritis of pqyv-hsis-xjtdw mobic-monitor symptoms-check labs Left lung nodule-most recent [...] bloating-use dicyclomine prn Elevated blood sugar-check Hgb A5N-kkc back on sweets/carbs . Hypertension - well [...]
--- OUTSIDE RECORDS SUMMARY | 2019-03-31 09:51 | XMS REPORT | CCD ---
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 Unknown Has never used illegal drugs 06/22/2013 Allergies, Adverse Reactions, Alerts Substance Reaction Codes Entered Date Inactivated Date Status lisinopril cough, RxNorm: 10217 06/22/2013 No Inactive Date Active SULFA (SULFONAMIDE ANTIBIOTICS) hives, Unknown 06/22/2013 No Inactive Date Active Past Medical History Illness Codes Condition Status Onset Date Resolved Date Cervicalgia ICD-9: 723.1 ICD-10: M54.2 Active 11/25/2017 Unknown Essential (primary) hypertension ICD-9: 401.1 ICD-10: I10 Active 07/09/2017 Unknown Impaired fasting glucose ICD-9: 790.21 ICD-10: R73.01 Active 11/25/2017 Unknown Low back pain ICD-9: 724.2 ICD-10: M54.5 Active 12/17/2015 Unknown Major depressive disorder, recurrent, moderate ICD-9: 296.32 ICD-10: F33.1 Active 03/25/2018 Unknown Malignant neoplasm of upper lobe, left [...] ICD-9: 401.9 ICD-10: I10 Active 05/10/2016 Unknown Tobacco use ICD-9: 305.1 [...] Problems Condition Codes Effective Dates Condition Status Cervicalgia ICD-9: 723.1 ICD-10: M54.2 11/25/2017 Active Essential (primary) hypertension ICD-9: 401.1 ICD-10: I10 07/09/2017 Active Impaired fasting glucose ICD-9: 790.21 ICD-10: R73.01 11/25/2017 Active Low back pain ICD-9: 724.2 ICD-10: M54.5 12/17/2015 Active Major depressive disorder, recurrent, moderate ICD-9: 296.32 ICD-10: F33.1 03/25/2018 Active Malignant neoplasm of upper lobe, left [...] hypertension ICD-9: 401.9 ICD-10: I10 05/10/2016 Active Tobacco use ICD-9: 305.1 ICD-10: [...] Fill Instructions Lipitor 10 mg tablet RxNorm: 094693 Tablet(s) TAKE ONE TABLET BY MOUTH EVERY OTHER DAY 05/25/2018 02/18/2019 Active Lexapro 20 mg tablet RxNorm: 026323 1 Tablet(s) PO QPM 03/25/2018 09/20/2018 Active olmesartan 40 mg tablet RxNorm: 750260 1 Tablet(s) PO daily 03/25/2018 04/23/2018 Inactive nystatin 100,000 unit/gram topical cream RxNorm: 955859 1 Application TOP BID 03/25/2018 04/07/2018 Inactive Lipitor 10 mg tablet RxNorm: 095924 TAKE ONE TABLET BY MOUTH EVERY OTHER DAY 03/18/2018 12/11/2018 Active Diovan 320 mg tablet RxNorm: 313228 TAKE ONE TABLET BY MOUTH DAILY 03/18/2018 03/24/2018 Inactive metoprolol tartrate 100 mg tablet RxNorm: 635545 TAKE ONE TABLET BY MOUTH TWICE A DAY 01/05/2018 10/01/2018 Active Diovan 320 mg tablet RxNorm: 569013 TAKE ONE TABLET BY MOUTH EVERY DAY 12/16/2017 03/17/2018 Inactive Lexapro 10 mg tablet RxNorm: 949963 1 Tablet(s) PO QPM 11/25/2017 03/24/2018 Inactive amlodipine 10 mg tablet RxNorm: 038760 TAKE ONE TABLET BY MOUTH EVERY DAY 11/15/2017 05/13/2018 Inactive Lipitor 10 mg tablet RxNorm: 374471 TAKE ONE TABLET BY MOUTH EVERY OTHER DAY 10/18/2017 03/17/2018 Inactive dicyclomine 10 mg capsule RxNorm: 030711 TAKE ONE CAPSULE BY MOUTH THREE TIMES A DAY NEEDED 08/12/2017 07/26/2020 Active Lipitor 10 mg tablet RxNorm: 650049 TAKE ONE TABLET BY MOUTH EVERY OTHER DAY 07/12/2017 10/17/2017 Inactive Diovan 320 mg tablet RxNorm: 412560 TAKE ONE TABLET BY MOUTH EVERY DAY 06/09/2017 12/05/2017 Inactive dicyclomine 10 mg capsule RxNorm: 767346 TAKE ONE CAPSULE BY MOUTH THREE TIMES A DAY NEEDED 05/05/2017 08/02/2017 Inactive nystatin 100,000 unit/gram topical powder RxNorm: 781746 1 Application TOP BID 04/29/2017 05/08/2017 Inactive Diovan 320 mg tablet RxNorm: 654499 TAKE ONE TABLET BY MOUTH EVERY DAY 03/10/2017 06/07/2017 Inactive dicyclomine 10 mg capsule RxNorm: 455398 TAKE ONE CAPSULE BY MOUTH THREE TIMES A DAY NEEDED 02/04/2017 05/04/2017 Inactive amlodipine 10 mg tablet RxNorm: 384300 TAKE ONE TABLET BY MOUTH EVERY DAY 02/04/2017 10/31/2017 Inactive Lipitor 10 mg tablet RxNorm: 413608 TAKE ONE TABLET BY MOUTH EVERY OTHER DAY 02/04/2017 07/11/2017 Inactive Fish Oil 1,000 mg capsule RxNorm: 1 Capsule(s) PO TID 01/07/2017 No Stop Date Active metoprolol tartrate 100 mg tablet RxNorm: 263242 1 Tablet(s) PO BID TAKE ONE TABLET BY MOUTH TWICE A DAY 01/07/2017 01/01/2018 Inactive Diovan 320 mg tablet RxNorm: 304601 TAKE ONE TABLET BY MOUTH EVERY DAY 11/05/2016 03/04/2017 Inactive Lipitor 10 mg tablet RxNorm: 978864 1 Tablet(s) PO every other day 09/08/2016 01/05/2017 Inactive dc livalo dicyclomine 10 mg capsule RxNorm: 085543 TAKE ONE CAPSULE BY MOUTH THREE TIMES A DAY NEEDED 07/30/2016 01/25/2017 Inactive Diovan 320 mg tablet RxNorm: 897018 TAKE ONE TABLET BY MOUTH EVERY DAY 06/15/2016 11/04/2016 Inactive Lipitor 10 mg tablet RxNorm: 372994 1 Tablet(s) PO every other day 05/25/2016 05/24/2016 Inactive dc livalo Lipitor 10 mg tablet RxNorm: 339571 1 Tablet(s) PO every other day 05/25/2016 09/07/2016 Inactive dc livalo Livalo 2 mg tablet RxNorm: 167280 1 Tablet(s) PO daily 05/20/2016 05/19/2016 Inactive Livalo 2 mg tablet RxNorm: 592473 1 Tablet(s) PO daily 05/20/2016 05/24/2016 Inactive Celexa 10 mg tablet RxNorm: 764333 1 Tablet(s) PO daily 02/10/2016 11/24/2017 Inactive amlodipine 10 mg tablet RxNorm: 071500 TAKE ONE TABLET BY MOUTH EVERY DAY 02/03/2016 02/02/2016 Inactive amlodipine 10 mg tablet RxNorm: 868760 TAKE ONE TABLET BY MOUTH EVERY DAY 02/03/2016 01/27/2017 Inactive amlodipine 10 mg tablet RxNorm: 013682 TAKE ONE TABLET BY MOUTH EVERY DAY 02/03/2016 04/27/2017 Inactive metoprolol tartrate 100 mg tablet RxNorm: 278028 TAKE ONE TABLET BY MOUTH TWICE A DAY 2016 01/06/2017 Inactive Diovan 320 mg tablet RxNorm: 359343 TAKE ONE TABLET BY MOUTH EVERY DAY 12/19/2015 06/14/2016 Inactive Wellbutrin XL 150 mg 24 hr tablet, extended release RxNorm: 162389 1 Tablet(s) PO daily 12/09/2015 02/09/2016 Inactive tramadol 50 mg tablet RxNorm: 834178 1-2 Tablet(s) PO Q6 PRN 12/09/2015 11/24/2017 Inactive Mobic 7.5 mg tablet RxNorm: 849350 TAKE ONE TABLET BY MOUTH DAILY 11/11/2015 11/24/2017 Inactive dicyclomine 10 mg capsule RxNorm: 693233 TAKE ONE CAPSULE BY MOUTH THREE TIMES A DAY NEEDED 11/11/2015 07/29/2016 Inactive Wellbutrin 75 mg tablet RxNorm: 166002 1 Tablet(s) PO BID 10/28/2015 12/08/2015 Inactive simvastatin 20 mg tablet RxNorm: 547594 TAKE ONE TABLET BY MOUTH EVERY DAY 09/05/2015 2016 Inactive Mobic 7.5 mg tablet RxNorm: 204074 1 Tablet(s) PO daily 08/26/2015 11/10/2015 Inactive estradiol 0.5 mg tablet RxNorm: 016103 TAKE ONE TABLET BY MOUTH EVERY DAY 06/11/2015 03/06/2016 Inactive amlodipine 10 mg tablet RxNorm: 719027 TAKE ONE TABLET BY MOUTH EVERY DAY 04/19/2015 01/13/2016 Inactive dicyclomine 10 mg capsule RxNorm: 410922 TAKE ONE CAPSULE BY MOUTH THREE TIMES A DAY NEEDED 04/19/2015 10/15/2015 Inactive simvastatin 20 mg tablet RxNorm: 736267 TAKE ONE TABLET BY MOUTH EVERY DAY 02/21/2015 08/19/2015 Inactive Diovan 320 mg tablet RxNorm: 174143 TAKE ONE TABLET BY MOUTH EVERY DAY 12/19/2014 12/18/2015 Inactive cephalexin 500 mg capsule RxNorm: 588585 1 Capsule(s) PO TID 11/13/2014 11/19/2014 Inactive prednisone 10 mg tablet RxNorm: 657009 3 Tablet(s) PO daily 11/13/2014 11/17/2014 Inactive prednisone 10 mg tablet RxNorm: 682281 3 Tablet(s) PO daily 11/12/2014 11/12/2014 Inactive Kenalog 40 mg/mL suspension for injection RxNorm: 5882781 Milliliter(s) Inj 11/12/2014 11/12/2014 Inactive cephalexin 500 mg capsule RxNorm: 223899 1 Capsule(s) PO TID 11/12/2014 11/12/2014 Inactive ceftriaxone 500 mg solution for injection RxNorm: 8022547 Inj 11/12/2014 11/12/2014 Inactive dicyclomine 10 mg capsule RxNorm: 672801 TAKE ONE CAPSULE BY MOUTH THREE TIMES A DAY NEEDED 11/08/2014 04/18/2015 Inactive metoprolol tartrate 100 mg tablet RxNorm: 585548 TAKE ONE TABLET BY MOUTH TWICE A DAY 10/18/2014 2015 Inactive metoprolol tartrate 100 mg tablet RxNorm: 283799 1 Tablet(s) PO BID 10/18/2014 10/12/2015 Inactive simvastatin 20 mg tablet RxNorm: 941407 TAKE ONE TABLET BY MOUTH EVERY DAY 08/21/2014 02/16/2015 Inactive Diovan 320 mg tablet RxNorm: 666100 TAKE ONE TABLET BY MOUTH EVERY DAY 08/21/2014 12/18/2014 Inactive Carafate 1 gram tablet RxNorm: 581545 1 Tablet(s) PO AC & HS MIX WITH 30ML WATER 07/23/2014 11/24/2017 Inactive dissolve in water and drink as slurry dicyclomine 10 mg capsule RxNorm: 609263 1 Capsule(s) PO TID PRN 07/23/2014 10/20/2014 Inactive simvastatin 20 mg tablet RxNorm: 195686 TAKE ONE TABLET BY MOUTH EVERY DAY 06/07/2014 08/20/2014 Inactive estradiol 0.5 mg tablet RxNorm: 803297 TAKE ONE TABLET BY MOUTH EVERY DAY 05/16/2014 05/10/2015 Inactive amlodipine 10 mg tablet RxNorm: 761739 TAKE ONE TABLET BY MOUTH EVERY DAY 05/16/2014 04/18/2015 Inactive Diovan 320 mg tablet RxNorm: 709248 TAKE ONE TABLET BY MOUTH EVERY DAY 03/26/2014 08/20/2014 Inactive Diflucan 150 mg tablet RxNorm: 094747 1 Tablet(s) PO daily 03/21/2014 03/27/2014 Inactive simvastatin 20 mg tablet RxNorm: 842280 TAKE ONE TABLET BY MOUTH EVERY DAY 03/02/2014 05/30/2014 Inactive estradiol 0.5 mg tablet RxNorm: 302793 TAKE ONE TABLET BY MOUTH EVERY DAY 02/16/2014 05/15/2014 Inactive amlodipine 10 mg tablet RxNorm: 505666 TAKE ONE TABLET BY MOUTH EVERY DAY 02/16/2014 05/15/2014 Inactive pantoprazole 40 mg tablet,delayed release RxNorm: 923044 2 Tablet(s) PO daily 01/25/2014 02/23/2014 Inactive simvastatin 20 mg tablet RxNorm: 070463 Tablet(s) PO TAKE ONE TABLET BY MOUTH EVERY DAY 11/30/2013 03/01/2014 Inactive amlodipine 10 mg tablet RxNorm: 499619 Tablet(s) PO TAKE ONE TABLET BY MOUTH EVERY DAY 11/16/2013 02/15/2014 Inactive metoprolol tartrate 100 mg tablet RxNorm: 352884 1 Tablet(s) PO BID 10/23/2013 10/17/2014 Inactive Diovan 320 mg tablet RxNorm: 046837 Tablet(s) PO TAKE ONE TABLET BY MOUTH EVERY DAY 09/28/2013 03/25/2014 Inactive Carafate 1 gram tablet RxNorm: 531703 1 Tablet(s) PO TID MIX WITH 30ML WATER 09/20/2013 12/18/2013 Inactive estradiol 0.5 mg tablet RxNorm: 694357 1 Tablet(s) PO daily 08/21/2013 02/15/2014 Inactive amlodipine 10 mg tablet RxNorm: 875455 1 Tablet(s) PO daily 08/21/2013 11/15/2013 Inactive simvastatin 20 mg tablet RxNorm: 748524 1 Tablet(s) PO daily 08/21/2013 11/18/2013 Inactive Diovan 320 mg tablet RxNorm: 930310 1 Tablet(s) PO daily 08/21/2013 09/19/2013 Inactive Carafate 1 gram tablet RxNorm: 881146 1 Tablet(s) PO TID MIX WITH 30ML WATER 08/21/2013 09/19/2013 Inactive Diovan 320 mg tablet RxNorm: 865491 1 Tablet(s) PO daily 07/20/2013 08/18/2013 Inactive amlodipine 10 mg tablet RxNorm: 023287 1 Tablet(s) PO daily 07/20/2013 08/18/2013 Inactive estradiol 0.5 mg tablet RxNorm: 378161 1 Tablet(s) PO daily 07/20/2013 08/18/2013 Inactive metoprolol tartrate 100 mg tablet RxNorm: 288550 1 Tablet(s) PO BID 06/22/2013 10/22/2013 Inactive Wellbutrin XL 150 mg 24 hr tablet, extended release RxNorm: 594579 1 Tablet(s) PO daily 06/22/2013 07/19/2013 Inactive pantoprazole 40 mg tablet,delayed release RxNorm: 711671 1 Tablet(s) PO daily No Start Date Active calcium 500 mg tablet RxNorm: 2 Tablet(s) PO BID No Start Date Active glucosamine and akdwvlxnnio-mwsytegk-yupc#3 oral RxNorm: 2837 oral No Start Date Active multivitamin tablet RxNorm: 1 Tablet(s) PO daily No Start Date Active aspirin 81 mg tablet RxNorm: 772737 1 Tablet(s) PO daily No Start Date Active Probiotic oral RxNorm: oral No Start Date Active Vitamin D3 1,000 unit capsule RxNorm: 235983 1 Capsule(s) PO daily No Start Date Active Eliquis 5 mg tablet RxNorm: 1154281 1 Tablet(s) PO BID No Start Date Active simvastatin 20 mg tablet RxNorm: 610779 1 Tablet(s) PO daily No Start Date 08/20/2013 Inactive hyoscyamine 0.125 mg sublingual tablet RxNorm: 9350196 1 Tablet(s) SL TID No Start Date 07/22/2014 Inactive metoprolol tartrate 100 mg tablet RxNorm: 277712 1 Tablet(s) PO daily No Start Date 06/21/2013 Inactive amlodipine 10 mg tablet RxNorm: 853866 1 Tablet(s) PO daily No Start Date 07/19/2013 Inactive Diovan 320 mg tablet RxNorm: 366085 1 Tablet(s) PO daily No Start Date 07/19/2013 Inactive Fish Oil 1,000 mg capsule RxNorm: 1 Capsule(s) PO BID No Start Date 01/06/2017 Inactive omeprazole 20 mg tablet,delayed release RxNorm: 257727 1 Tablet(s) PO daily No Start Date 01/25/2014 Inactive estradiol 0.5 mg tablet RxNorm: 495318 1 Tablet(s) PO daily No Start Date 07/19/2013 Inactive Medication Administered Medication Codes Instructions Start Date Status Kenalog 40 mg/mL suspension for injection RxNorm: 5993552 Milliliter 11/12/2014 No longer Active ceftriaxone 500 mg solution for injection RxNorm: 5761109 11/12/2014 No longer Active Immunizations Vaccine Codes Date Status Influenza CVX: 141 05/11/2016 completed Pneumococcal (Adult) CVX: 133 05/11/2016 completed Influenza CVX: 141 08/13/2013 completed Assessments Condition Codes Effective Dates Rash and other nonspecific skin eruption ICD-10: R21 ICD-9: 782.1 03/25/2018 Low back pain ICD-10: M54.5 ICD-9: 724.2 03/25/2018 Major depressive disorder, recurrent, moderate ICD-10: F33.1 ICD-9: 296.32 03/25/2018 Essential (primary) hypertension ICD-10: I10 ICD-9: 401.1 03/25/2018 Encounter for general adult medical examination with abnormal findings ICD-10: Z00.01 ICD-9: V70.0 12/03/2017 Malignant neoplasm of upper lobe, left bronchus or lung ICD-10: C34.12 ICD-9: 162.3 11/25/2017 Impaired fasting glucose ICD-10: R73.01 ICD-9: 790.21 11/25/2017 Cervicalgia ICD-10: M54.2 ICD-9: 723.1 11/25/2017 Mixed hyperlipidemia ICD-10: E78.2 ICD-9: 272.2 11/25/2017 Gas pain ICD-10: R14.1 ICD-9: 787.3 04/29/2017 Chronic obstructive pulmonary disease, unspecified ICD-10: J44.9 ICD-9: 496 01/07/2017 Essential (primary) hypertension ICD-10: I10 ICD-9: 401.9 01/07/2017 Tobacco use ICD-10: Z72.0 ICD-9: 305.1 09/08/2016 [...] Visit Reason For Visit Effective Dates Notes rash 03/25/2018 Annual Medicare Wellness Exam 12/03/2017 [...] Lipid Ord30 C/HDL 3.5 Ratio 11/25/2017 %Hba1C Tij586 % HbA1c 38360- 6 5.7 % 11/25/2017 %Hba1C Cgu028 Gluc Ave 117 mg/dL 11/25/2017 Tsh Ord6 TSH (3rd IS) 1.06 uIU/mL 11/25/2017 Comp Metabolic Sqj862 NA 141 mEq/L 11/25/2017 Comp Metabolic Zix284 K 4.2 mEq/L 11/25/2017 Comp Metabolic Ffl544 CL 103 mEq/L 11/25/2017 Comp Metabolic Bwp179 CO2 31.0 mEq/L 11/25/2017 Comp Metabolic Ahw359 ANION GAP 11 11/25/2017 Comp Metabolic Zlm958 GLUCOSE 117 mg/dL 11/25/2017 Comp Metabolic Ssv542 Creat 0.8 mg/dL 11/25/2017 Comp Metabolic Jas082 eGFR 74 ml/min/1.73m2 11/25/2017 Comp Metabolic Voq434 BUN 18 mg/dL 11/25/2017 Comp Metabolic Ech244 B/C Ratio 22.2 Ratio 11/25/2017 Comp Metabolic Npd725 CALCIUM 9.4 mg/dL 11/25/2017 Comp Metabolic Ekl994 ALK PHOS 62 U/L 11/25/2017 Comp Metabolic See863 AST(SGOT) 21 U/L 11/25/2017 Comp Metabolic Eor275 ALT(SGPT) 18 U/L 11/25/2017 Comp Metabolic Sto400 BILI T 0.4 mg/dL 11/25/2017 Comp Metabolic Bhy119 ALBUMIN 4.0 g/dL 11/25/2017 Comp Metabolic Snj501 TPRO 6.1 g/dL 11/25/2017 Comp Metabolic Uzq888 GLOB 2.1 g/dL 11/25/2017 Comp Metabolic Rkj871 A/G Ratio 1.9 Ratio 11/25/2017 Comp Metabolic Coe262 Osmo 284 mOsmo 11/25/2017 Cbc With Differential [...] 31.1 pg 11/25/2017 Cbc With Differential Ord2 [place]% 11.2 % 11/25/2017 Cbc With Differential Ord2 [...] 2.03 K/ul 11/25/2017 Cbc With Differential Ord2 [place] ABS# 0.6 K/ul 11/25/2017 Cbc With Differential [...] 38.1 % 05/11/2016 Cbc With Differential Ord2 [place]% 9.5 % 05/11/2016 Cbc With Differential Ord2 [...] 1.76 K/ul 05/11/2016 Cbc With Differential Ord2 [place] ABS# 0.4 K/ul 05/11/2016 Cbc With Differential Ord2 Eos ABS# 0.1 K/ul 05/11/2016 Cbc With Differential Ord2 Baso ABS# 0.0 K/ul 05/11/2016 Comp Metabolic Fby755 NA 139 mEq/L 05/11/2016 Comp Metabolic Fey457 K 4.6 mEq/L 05/11/2016 Comp Metabolic Crj018 CL 104 mEq/L 05/11/2016 Comp Metabolic Cdn151 CO2 30.0 mEq/L 05/11/2016 Comp Metabolic Opf968 ANION GAP 10 05/11/2016 Comp Metabolic Krt593 GLUCOSE 113 mg/dL 05/11/2016 Comp Metabolic Vqa251 Creat 0.8 mg/dL 05/11/2016 Comp Metabolic Heo064 eGFR 74 ml/min/1.73m2 05/11/2016 Comp Metabolic Jmj183 BUN 16 mg/dL 05/11/2016 Comp Metabolic Ngt509 B/C Ratio 19.8 Ratio 05/11/2016 Comp Metabolic Wje920 CALCIUM 10.1 mg/dL 05/11/2016 Comp Metabolic Dtd701 ALK PHOS 44 U/L 05/11/2016 Comp Metabolic Eqm353 AST(SGOT) 20 U/L 05/11/2016 Comp Metabolic Ceu669 ALT(SGPT) 17 U/L 05/11/2016 Comp Metabolic Zdo771 BILI T 0.4 mg/dL 05/11/2016 Comp Metabolic Oot983 ALBUMIN 4.1 g/dL 05/11/2016 Comp Metabolic Vgy950 TPRO 6.5 g/dL 05/11/2016 Comp Metabolic Awk543 GLOB 2.4 g/dL 05/11/2016 Comp Metabolic Qxr596 A/G Ratio 1.8 Ratio 05/11/2016 Comp Metabolic Eqv807 Osmo 280 mOsmo 05/11/2016 Tsh Ord6 hTSH II 0.96 uIU/mL 05/11/2016 Lipid Ord30 CHOL 283 mg/dL 05/11/2016 Lipid Ord30 HDL 53.0 mg/dl 05/11/2016 Lipid Ord30 TRIG 144 mg/dL 05/11/2016 Lipid Ord30 LDL 201 mg/dL 05/11/2016 Lipid Ord30 C/HDL 5.3 Ratio 05/11/2016 C-Reactive Protein Qnt Crqnt CRP 0.5 mg/dl 12/18/2015 Vitamin D 25 Oh Qmz3871 VITAMIN D, 25 HYDROXY 84.50 ng/mL 12/18/2015 Comp Metabolic Wdm879 NA 139 mEq/L 12/18/2015 Comp Metabolic Bff608 K 3.8 mEq/L 12/18/2015 Comp Metabolic Ctp305 CL 103 mEq/L 12/18/2015 Comp Metabolic Sri543 CO2 31.0 mEq/L 12/18/2015 Comp Metabolic Yxn368 ANION GAP 9 12/18/2015 Comp Metabolic Bqy222 GLUCOSE 107 mg/dL 12/18/2015 Comp Metabolic Xma762 Creat 0.8 mg/dL 12/18/2015 Comp Metabolic Xdi710 eGFR 80 ml/min/1.73m2 12/18/2015 Comp Metabolic Rwl377 BUN 19 mg/dL 12/18/2015 Comp Metabolic Gtz284 B/C Ratio 25.0 Ratio 12/18/2015 Comp Metabolic Ukc104 CALCIUM 9.1 mg/dL 12/18/2015 Comp Metabolic Tse437 ALK PHOS 42 U/L 12/18/2015 Comp Metabolic Uro933 AST(SGOT) 17 U/L 12/18/2015 Comp Metabolic Xed303 ALT(SGPT) 18 U/L 12/18/2015 Comp Metabolic Xrp869 BILI T 0.3 mg/dL 12/18/2015 Comp Metabolic Jws113 ALBUMIN 3.8 g/dL 12/18/2015 Comp Metabolic Rfk327 TPRO 5.9 g/dL 12/18/2015 Comp Metabolic Dsv072 GLOB 2.1 g/dL 12/18/2015 Comp Metabolic Lnr536 A/G Ratio 1.8 Ratio 12/18/2015 Comp Metabolic Ahz417 Osmo 280 mOsmo 12/18/2015 Sed Rate Ord21 [...] 97.6 fl 12/18/2015 Cbc With Differential Ord2 [place]% 9.3 % 12/18/2015 Cbc With Differential Ord2 [...] 1.45 K/ul 12/18/2015 Cbc With Differential Ord2 [place] ABS# 0.5 K/ul 12/18/2015 Cbc With Differential [...] 31.6 pg 09/02/2015 Cbc With Differential Ord2 [place]% 8.8 % 09/02/2015 Cbc With Differential Ord2 [...] 1.53 K/ul 09/02/2015 Cbc With Differential Ord2 [place] ABS# 0.5 K/ul 09/02/2015 Cbc With Differential Ord2 Eos ABS# 0.1 K/ul 09/02/2015 Cbc With Differential Ord2 Baso ABS# 0.0 K/ul 09/02/2015 Cbc With Differential Ord2 New Analyzer Notice Please note new ref ranges starting 08-14-2015 due to implemntation of new five part differential hematolgy analyzer. 09/02/2015 Tsh Ord6 hTSH II 1.41 uIU/mL 09/02/2015 Comp Metabolic Mfy571 NA 136 mEq/L 09/02/2015 Comp Metabolic Fwj465 K 4.5 mEq/L 09/02/2015 Comp Metabolic Ixs794 CL 103 mEq/L 09/02/2015 Comp Metabolic Bvv773 CO2 27.0 mEq/L 09/02/2015 Comp Metabolic Joc317 ANION GAP 11 09/02/2015 Comp Metabolic Qtd567 GLUCOSE 109 mg/dL 09/02/2015 Comp Metabolic Zrs230 Creat 1.0 mg/dL 09/02/2015 Comp Metabolic Zay000 eGFR 62 ml/min/1.73m2 09/02/2015 Comp Metabolic Adi161 BUN 21 mg/dL 09/02/2015 Comp Metabolic Jko440 B/C Ratio 22.1 Ratio 09/02/2015 Comp Metabolic Xin238 CALCIUM 9.3 mg/dL 09/02/2015 Comp Metabolic Yee961 ALK PHOS 37 U/L 09/02/2015 Comp Metabolic Nzd194 AST(SGOT) 19 U/L 09/02/2015 Comp Metabolic Vig410 ALT(SGPT) 16 U/L 09/02/2015 Comp Metabolic Bac071 BILI T 0.4 mg/dL 09/02/2015 Comp Metabolic Frk579 ALBUMIN 4.1 g/dL 09/02/2015 Comp Metabolic Adi011 TPRO 6.3 g/dL 09/02/2015 Comp Metabolic Ert676 GLOB 2.2 g/dL 09/02/2015 Comp Metabolic Uuw449 A/G Ratio 1.8 Ratio 09/02/2015 Comp Metabolic Jcr865 Osmo 276 mOsmo 09/02/2015 A1C HPLC 1437558 A1C HPLC 18780-2 5.6 % 07/23/2014 VIT D TOTL 6271463 VIT D TOTL 52 NG/ML 07/20/2013 GFR CALC 2178938 GFR AA >60 ML/MIN 07/20/2013 GFR CALC 4460688 GFR NON-AA >60 ML/MIN 07/20/2013 CBC 2838315 WBC 5.9 10e9/L 07/20/2013 CBC 1054263 RBC 4.79 10e12/L 07/20/2013 CBC 0794730 HGB 15.5 g/dL 07/20/2013 CBC 7383392 HCT DET 46.1 % 07/20/2013 CBC 8631941 MCV 96.2 fL 07/20/2013 CBC 9770535 MCH 32.4 pg 07/20/2013 CBC 2580007 MCHC 33.6 g/dL 07/20/2013 CBC 6102662 PLT 286 10e9/L 07/20/2013 CBC 3366253 MPV 10.8 fL 07/20/2013 CBC 8613417 ERINN % 66.1 % 07/20/2013 CBC 6871460 LY % 24.3 % 07/20/2013 CBC 6156956 MON % 8.1 % 07/20/2013 CBC 6463188 EOS % 1.2 % 07/20/2013 CBC 2377173 BASO % 0.3 % 07/20/2013 CBC 9332480 RDW 12.7 % 07/20/2013 CBC 4094219 ABS ERINN 3.90 10e9/L 07/20/2013 CBC 3777917 ABS LYMPH 1.43 10e9/L 07/20/2013 CBC 5125737 ABS MONO 0.48 10e9/L 07/20/2013 CBC 6554680 ABS EOS 0.07 10e9/L 07/20/2013 CBC 4866292 ABS BASO 0.02 10e9/L 07/20/2013 CBC 3927042 RDW-SD 44.1 fL 07/20/2013 A1C HPLC 8817084 A1C HPLC 45524-5 5.9 % 07/20/2013 LIPID GRP HDL TEST 54 MG/DL 07/20/2013 LIPID GRP TRIG 98 MG/DL 07/20/2013 LIPID GRP TEST LDL 95 MG/DL 07/20/2013 LIPID GRP CHOL 169 MG/DL 07/20/2013 LIPID GRP RCHOL/HDL 3.13 RATIO 07/20/2013 TSH 5512974 TSH 1.032 uIU/ML 07/20/2013 CHEM 14 7894141 AST 18 U/L 07/20/2013 CHEM 14 2321788 ALT 13 IU/L 07/20/2013 CHEM 14 1092429 BUN 19 MG/DL 07/20/2013 CHEM 14 5145701 ALBUMIN 4.5 GM/DL 07/20/2013 CHEM 14 5640422 CHLORIDE 105 MMOL/L 07/20/2013 CHEM 14 4358295 BILI TOT 0.5 MG/DL 07/20/2013 CHEM 14 1749897 ALK PHOS 40 U/L 07/20/2013 CHEM 14 4805859 SODIUM 137 MMOL/L 07/20/2013 CHEM 14 4406071 CREATININE 0.76 MG/DL 07/20/2013 CHEM 14 5175912 CALCIUM 10.0 MG/DL 07/20/2013 CHEM 14 2591276 POTASSIUM 4.6 MMOL/L 07/20/2013 CHEM 14 3540524 PROT TOT 6.5 GM/DL 07/20/2013 CHEM 14 1224833 GLUCOSE 118 MG/DL 07/20/2013 CHEM 14 5426635 BICARB 26 MMOL/L 07/20/2013 CHEM 14 9150375 ANION GAP 6 MEQ/L 07/20/2013 VIT B 12 4651801 VIT B 12 492 PG/ML 07/20/2013 Review of Systems System Result Effective Dates Constitutional No recent illness 03/25/2018 Constitutional No [...] Effective Dates Notes Full Exam - General 1995 Constitutional general appearance Overall: well developed 03/25/2018 [...] clear 01/07/2017 None Full Exam - General 1995 Ears/Nose/Throat [...] SUBSEQ VISIT CPT- 4: G0439 12/03/2017 TOBACCO-[employer] COUNSE[employer]OR 3-[address]: 636846984 CPT-4: G0436 09/08/2016 ADMIN INFLUENZA VIRUS VAC CPT-4: G0008 05/11/2016 PNEUMOCOCCAL VACC 13 SAULO IM Formatting Model/CDA Sections, Assigned to/Rafia Cuadra SNOMED CT: 59816684 CPT-4: 94927Fatocdg 05/11/2016 ADMIN PNEUMOCOCCAL VACCINE SNOMED CT: 75538016 CPT-4: G0009 05/11/2016 FLU VACC 4 SAULO 3 YRS PLUS IM Formatting Model/CDA Sections, Assigned to/Khalif, Rafia SNOMED CT: 88908638 CPT-4: 75961Hmypmix 05/11/2016 TOBACCO-USE S[employer] COUNSELLOR 3-[address]: 058825511 CPT-4: G0436 02/10/2016 TRIAMCINOLONE ACET INJ NOS CPT-4: J3301 12/16/2015 DRAIN/INJECT JOINT/BURSA CPT-4: 87069 12/16/2015 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-USE SCHO[employer] 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 3-[address]: 480888202 CPT-4: G0436 12/09/2015 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0 Code: 03732-1 Heart Rate 1: 65 bpm Height: 5'5" SpO2: 98% Weight: 180 lbs 12/03/2017 Blood Pressure 1: 142/86 Code: 8480-6 BMI: 29.5 Code: 38066-9 Heart Rate 1: 74 bpm Height: 5'5" SpO2: 93% Weight: 177 lbs 11/25/2017 Blood Pressure 1: 142/84 Code: 8480-6 BMI: 29.5 Code: 29493-4 Heart Rate 1: 69 bpm Height: 5'5" SpO2: 99% Weight: 177 lbs 07/09/2017 Blood Pressure 1: 142/68 Code: 8480-6 BMI: 28.3 Code: 46744-0 Heart Rate 1: 48 bpm Height: 5'5" SpO2: 97% Weight: 170 lbs 04/29/2017 Blood Pressure 1: 148/86 Code: 8480-6 BMI: 28.6 Code: 50291-5 Heart Rate 1: 71 bpm Height: 5'5" SpO2: 95% Weight: 172 lbs 01/07/2017 Blood Pressure 1: 140/70 Code: 8480-6 BMI: 28.8 Code: 70549-9 Heart Rate 1: 68 bpm Height: 5'5" SpO2: 96% Weight: 173 lbs 09/08/2016 Blood Pressure 1: 134/70 Code: 8480-6 BMI: 29.1 Code: 48907-5 Heart Rate 1: 68 bpm Height: 5'5" SpO2: 99% Weight: 175 lbs 05/11/2016 Blood Pressure 1: 138/88 Code: 8480-6 BMI: 29.2 Code: 24368-2 Heart Rate 1: 67 bpm Height: 5'6" SpO2: 95% Weight: 178 lbs 02/10/2016 Blood Pressure 1: 148/82 Code: 8480-6 BMI: 28.8 Code: 37552-7 Heart Rate 1: 63 bpm Height: 5'6" SpO2: 97% Weight: 176 lbs 12/18/2015 Blood Pressure 1: 130/78 Code: 8480-6 BMI: 28.8 Code: 58172-0 Heart Rate 1: 66 bpm Height: 5'6" SpO2: 98% Weight: 176 lbs 12/16/2015 Blood Pressure 1: 162/100 Code: 8480-6 BMI: 28.8 Code: 29135-2 Heart Rate 1: 65 bpm Height: 5'6" SpO2: 98% Weight: 176 lbs 12/09/2015 Blood Pressure 1: 142/70 Code: 8480-6 BMI: 28.4 Code: 82855-9 Heart Rate 1: 65 bpm Height: 5'6" SpO2: 96% Weight: 173 lbs 10/28/2015 Blood Pressure 1: 160/82 Code: 8480-6 Blood Pressure 1: 140/86 Code: 8480-6 BMI: 28.5 Code: 82133-3 Heart Rate 1: 60 bpm Height: 5'6" SpO2: 96% Weight: 174 lbs 08/26/2015 Blood Pressure 1: 158/80 Code: 8480-6 Blood Pressure 1: 148/88 Code: 8480-6 BMI: 28.0 Code: 95121-6 Heart Rate 1: 68 bpm Height: 5'6" SpO2: 98% Weight: 171 lbs 02/12/2015 Blood Pressure 1: 136/74 Code: 8480-6 BMI: 25.9 Code: 58165-9 Heart Rate 1: 61 bpm Height: 5'6" SpO2: 97% Weight: 158 lbs 11/12/2014 Blood Pressure 1: 140/82 Code: 8480-6 BMI: 25.9 Code: 98862-8 Heart Rate 1: 64 bpm Height: 5'6" SpO2: 97% Weight: 158 lbs 07/23/2014 Blood Pressure 1: 138/88 Code: 8480-6 BMI: 25.6 Code: 10286-4 Heart Rate 1: 57 bpm Height: 5'6" SpO2: 95% Weight: 156 lbs 03/21/2014 Blood Pressure 1: 124/64 Code: 8480-6 Heart Rate 1: 64 bpm Weight: 147 lbs 01/25/2014 Blood Pressure 1: 130/70 Code: 8480-6 BMI: 24.4 Code: 14867-9 Height: 5'6" Weight: 149 lbs 10/23/2013 Blood Pressure 1: 152/82 Code: 8480-6 BMI: 25.7 Code: 42202-5 Heart Rate 1: 60 bpm Height: 5'6" Weight: 157 lbs 08/21/2013 Blood Pressure 1: 142/90 Code: 8480-6 BMI: 25.9 Code: 90994-5 Heart Rate 1: 56 bpm Height: 5'6" Weight: 158 lbs 07/20/2013 Blood Pressure 1: 164/80 Code: 8480-6 BMI: 26.2 Code: 16258-3 Heart Rate 1: 60 bpm Height: 5'6" SpO2: 98% Weight: 160 lbs 06/22/2013 Blood Pressure 1: 140/84 Code: 8480-6 BMI: 28.2 Code: 68296-1 Heart Rate 1: 60 bpm Height: 5'6" Weight: 172 lbs Functional Status No Functional Status data History of Present Illness Symptom Name Status Result Effective Date Notes hypertension Quality chronic 03/25/2018 None hypertension Quality [...] data Encounters Encounter Performer Location Codes Date ([id number]) 73740 EST. PATIENT, LEVEL IV Diagnosis: Essential (primary) hypertension[ICD10: I10] Diagnosis: Major depressive disorder, recurrent, moderate[ICD10: F33.1] Diagnosis: Low back pain[ICD10: M54.5] Diagnosis: Rash and other nonspecific skin eruption[ICD10: R21] Marily Gonzalez MD, [facility] CPT-4: 74887 03/25/2018 ([id number]) 09151 EST. PATIENT, LEVEL IV Diagnosis: Essential (primary) hypertension[ICD10: I10] Diagnosis: Mixed hyperlipidemia[ICD10: E78.2] Diagnosis: Malignant neoplasm of upper lobe, left bronchus or lung[ICD10: C34.12] Diagnosis: Impaired fasting glucose[ICD10: R73.01] Diagnosis: Cervicalgia[ICD10: M54.2] Diagnosis: Low back pain[ICD10: M54.5] Marily Gonzalez MD, [facility] CPT-4: 86311 11/25/2017 ([id number]) 29636 EST. PATIENT, LEVEL III Diagnosis: Essential (primary) hypertension[ICD10: I10] Marily Gonzalez MD, [facility] CPT-4: 12688 07/09/2017 ([id number]) 05266 EST. PATIENT, LEVEL III Diagnosis: Gas pain[ICD10: R14.1] Diagnosis: Rash and other nonspecific skin eruption[ICD10: R21] Marily Gonzalez MD, [facility] CPT-4: 80198 04/29/2017 ([id number]) 29293 EST. PATIENT, LEVEL III Diagnosis: Essential (primary) hypertension[ICD10: I10] Diagnosis: Malignant neoplasm of upper lobe, left bronchus or lung[ICD10: C34.12] Diagnosis: Chronic obstructive pulmonary disease, unspecified[ICD10: J44.9] Marily Gonzalez MD, [facility] CPT-4: 65275 01/07/2017 ([id number]) 01900 EST. PATIENT, LEVEL IV Diagnosis: Essential (primary) hypertension[ICD10: I10] Diagnosis: Mixed hyperlipidemia[ICD10: E78.2] Diagnosis: Tobacco use[ICD10: Z72.0] Diagnosis: Malignant neoplasm of upper lobe, left bronchus or lung[ICD10: C34.12] Marily Gonzalez MD, [facility] CPT-4: 19408 09/08/2016 ([id number]) 08117 EST. PATIENT, LEVEL IV Diagnosis: Essential (primary) hypertension[ICD10: I10] Diagnosis: Mixed hyperlipidemia[ICD10: E78.2] Diagnosis: Generalized anxiety disorder[ICD10: F41.1] Diagnosis: Other specified disorders of bone density and structure, multiple sites[ICD10: M85.89] Marily Gonzalez MD, [facility] CPT-4: 47123 05/11/2016 ([id number]) 48790 EST. PATIENT, LEVEL IV Diagnosis: Essential (primary) hypertension[ICD10: I10] Diagnosis: Generalized anxiety disorder[ICD10: F41.1] Diagnosis: Tobacco use[ICD10: Z72.0] Marily Gonzalez MD, [facility] CPT-4: 50502 02/10/2016 04042 EST. PATIENT, LEVEL IV Diagnosis: Myalgia[ICD10: M79.1] Diagnosis: Low back pain[ICD10: M54.5] Joy Gonzalez MD, [facility] CPT-4: 86166 12/18/2015 [id number] EST. PATIENT, LEVEL IV Diagnosis: Low back pain[ICD10: M54.5] Diagnosis: Pain in right hip[ICD10: M25.551] Joy Gonzalez MD, [facility] CPT-4: 90806 12/16/2015 ([id number]) 96883 EST. PATIENT, LEVEL IV Diagnosis: Low back pain[ICD10: M54.5] Diagnosis: Malignant neoplasm of upper lobe, left bronchus or lung[ICD10: C34.12] Diagnosis: Tobacco use[ICD10: Z72.0] Diagnosis: Essential (primary) hypertension[ICD10: I10] Diagnosis: Generalized anxiety disorder[ICD10: F41.1] Marily Gonzalez MD, [facility] CPT-4: 54157 12/09/2015 ([id number]) 26946 EST. PATIENT, LEVEL IV Diagnosis: Essential (primary) hypertension[ICD10: I10] Diagnosis: Tobacco use[ICD10: Z72.0] Diagnosis: Solitary pulmonary nodule[ICD10: R91.1] Marily Gonzalez MD, [facility] CPT-4: 77090 10/28/2015 ([id number]) 65026 EST. PATIENT, LEVEL IV Diagnosis: Essential (primary) hypertension[ICD10: I10] Diagnosis: Bilateral primary osteoarthritis of hip[ICD10: M16.0] Diagnosis: Solitary pulmonary nodule[ICD10: R91.1] Marily Gonzalez MD [facility] CPT-4: 28114 08/26/2015 ([id number]) 78349 EST. PATIENT, LEVEL IV Diagnosis: ESSENTIAL HYPERTENSION[ICD9: 401.9] Diagnosis: Pulmonary nodule[ICD9: 793.11] Teresa Gonzalez MD [facility] CPT-4: 98050 02/12/2015 ([id number]) 70254 EST. PATIENT, LEVEL III Diagnosis: ACUTE BRONCHITIS[ICD9: 466.0] Diagnosis: ALLERGIC RHINITIS[ICD9: 477.9] Teresa Gonzalez MD [facility] CPT-4: 35641 11/12/2014 ([id number]) 08082 EST. PATIENT, LEVEL IV Diagnosis: ESOPHAGEAL REFLUX[ICD9: 530.81] Diagnosis: ESSENTIAL HYPERTENSION[ICD9: 401.9] Diagnosis: Elevated blood sugar[ICD9: 790.29] Marily Gonzalez MD, [facility] CPT- 4: 04855 07/23/2014 ([id number]) 01588 EST. PATIENT, LEVEL III Diagnosis: Vaginal yeast infection[ICD9: 112.1] Diagnosis: Vaginal burning[ICD9: 625.8] Diagnosis: History of UTI[ICD9: V13.02] Diagnosis: Dysuria[ICD9: 788.1] Marily Gonzalez MD [facility] CPT-4: 06471 03/21/2014 ([id number]) 45393 EST. PATIENT, LEVEL III Diagnosis: ESSENTIAL HYPERTENSION[ICD9: 401.9] Marily Gonzalez MD [facility] CPT-4: 26307 01/25/2014 ([id number]) 33738 EST. PATIENT, LEVEL III Diagnosis: ESSENTIAL HYPERTENSION[SNOMED: 83227423] Diagnosis: ESOPHAGEAL REFLUX[ICD9: 530.81] Teresa Gonzalez MD [facility] CPT-4: 20797 10/23/2013 ([id number]) 17498 EST. PATIENT, LEVEL IV Diagnosis: ESOPHAGEAL REFLUX[ICD9: 530.81] Diagnosis: ESSENTIAL HYPERTENSION[SNOMED: 94027624] Diagnosis: Rash[ICD9: 782.1] Marily Gonzalez MD [facility] CPT-4: 42174 08/21/2013 ([id number] 85600 EST. PATIENT, LEVEL IV Diagnosis: Muscle ache of extremity[ICD9: 729.1] Diagnosis: Tingling in extremities[ICD9: 782.0] Diagnosis: ESSENTIAL HYPERTENSION[SNOMED: 62981567] Diagnosis: GERD (gastroesophageal reflux disease)[ICD9: 530.81] Diagnosis: Elevated blood sugar[ICD9: 790.29] Marily Gonzalez MD, [facility] CPT- 4: 71675 07/20/2013 OFFICE VISIT, NEW - LEVEL 3 Diagnosis: ESSENTIAL HYPERTENSION[SNOMED: 83705812] Diagnosis: Tobacco use[ICD9: 305.1] Diagnosis: Depression[ICD9: 311] Marily Gonzalez MD, [facility] CPT-4: 31390 06/22/2013 ([id number]) BEHAV CHNG SMOKING 3-10 MIN Diagnosis: [ICD9: ] Marily Gonzalez MD, [facility] CPT-4: 74760 06/22/2013 Plan of Care Planned Activity Notes [...] PT 03/25/2018 Appointment: Marily Valerio WPtel: [address] [place], [place] [phone] (15 min) Moderate 03/25/2018 Patient Education: Patient [...] Marily Valerio WPtel: [facility] [phone] (15 min) Moderate 11/25/2017 Patient Education: Patient Medication Summary Completed 11/25/2017 Care Plan: X-RAY EXAM L-S SPINE 2/3 VWS LOINC : 32887-7 Pending 11/25/2017 Care Plan: X-RAY EXAM NECK SPINE 2-3 LOINC : 06434-3 Pending 11/25/2017 Appointment: Marily Valerio WPtel: [address] [place] [address] (15 min) Moderate 11/02/2017 Visit Plan: Hypertension [...] Dr Ryan 07/09/2017 Appointment: Marily Valerio WPtel: [address] [place] [address] (15 min) Moderate 07/09/2017 Patient Education: Patient Medication Summary Completed 07/09/2017 Patient Education: Smoking and Tobacco Addiction Completed 07/09/2017 Appointment: Marily Valerio WPtel: [address] [place], [place] [phone] (15 min) Moderate 07/08/2017 Visit Plan: Gas and bloating-cut out dairy x 2 weeks-increase gas x to TID-call if symptoms uncontrolled Rash-rx for nystatin powder provided-keep clean/dry-call if does not resolve or if any worse 04/29/2017 Appointment: Marily Valerio WPtel: [address] [place], [place] [phone] (15 min) Moderate 04/29/2017 Patient Education: Patient [...] nicotine patches 01/07/2017 Appointment: Marily Valerio WPtel: [facility]5 [phone] (15 min) Moderate 01/07/2017 Patient Education: Patient Medication Summary Completed 01/07/2017 Patient Education: Smoking and Tobacco Addiction Completed 01/07/2017 Patient Education: Hypertension Completed 01/07/2017 Appointment: Marily Valerio WPtel: [address] [place], [place] [phone] (30 min) Complex 01/05/2017 Visit Plan: Hypertension [...] Marily Valerio WPtel: [facility] [phone] (15 min) Moderate 09/08/2016 Patient Education: Patient [...] Marily Valerio WPtel: [facility] [phone] (15 min) Moderate 05/11/2016 Patient Education: [...] MRI LUMBAR SPINE W/O DYE INC : 91733-3 Cancelled 01/17/2016 Visit Plan: Continued Low back [...] they worsen. 12/18/2015 Appointment: Marily Valerio WPtel: [phone] [phone] (30 min) Complex 12/18/2015 Patient Education: Patient [...] worsen. 12/16/2015 Appointment: Joy Flores WPtel: [phone] [phone] (15 min) Moderate 12/16/2015 Patient Education: [...] to have left upper lobe removed at [facility] this week to schedule Tobacco use-no cigarettes [...] blood pressure readings at home. Arthritis of yvii-yxdo-pqqen mobic-monitor symptoms-check labs Left lung nodule- most recent scan shows slight increase in size and needs further evaluation- managed by Dr Corea-appt is this week 08/26/2015 Appointment: Marily Valerio WPtel: [phone] [phone] [place] (30 min) Complex 08/26/2015 Patient Education: Patient Medication Summary Completed 08/26/2015 Patient Education: Hypertension Completed 08/26/2015 Appointment: Teresa Gonzalez WPtel: [phone] [facility] [address] [place] (15 min) Moderate 08/15/2015 Appointment: Teresa Gonzalez WPtel: [phone] [facility] [address] [place] (15 min) Moderate 08/15/2015 Visit Plan: [...] scan. 02/12/2015 Appointment: Teresa Gonzalez WPtel: [phone] [facility] [address] [place] Follow up 02/12/2015 Patient Education: Patient [...] bloating-use dicyclomine prn Elevated blood sugar-check Hgb Z3A-swl back on sweets/carbs 07/23/2014 Appointment: Follow up [...] home. 01/25/2014 Appointment: Marily Valerio WPtel: [phone] [facility] [phone] Follow up 01/25/2014 Patient Education: Patient Medication [...] [place]. 10/23/2013 Appointment: [phone] Follow up 10/23/2013 Patient Education: Patient Medication [...] worse. 08/21/2013 Appointment: Marily Valerio WPtel: [phone] [phone] Follow up 08/21/2013 Patient Education: Patient [...] with Dr Combs as scheduled Tingling of xiregnasfld-jigkeymt-ujtch labs including vitamin b12 and vitamin d Elevated blood sugar-check hgb a1c 07/20/2013 Appointment: Marily Valerio WPtel: [phone] [phone] Follow up 07/20/2013 Patient Education: Patient [...] quit date. 06/22/2013 Appointment: ValerioMarily WPtel: [phone] [facility] [phone] [place] New Patient 06/22/2013 Patient Education: Patient Medication Summary Completed 06/22/2013 Patient Education: Hypertension Completed 06/22/2013 Patient Education: Smoking and Tobacco Addiction Completed 06/22/2013 Instructions Comment BONE DENSITY-HAND UMBRELLA TIPPER MON-THURS FLU AND PREVNAR 13 . Hypertension [...] treatment at this time Osteopenia-check bone density START WELLBUTRIN 75MG TWICE DAILY TO HELP [...] to have left upper lobe removed at [facility] this week to schedule Tobacco use-no cigarettes since Wednesday-start wellbutrin to aide with cessation Monitor your blood pressure at home and [...] blood pressure readings at home. Arthritis of vkuz-bixw-ktdbx mobic-monitor symptoms-check labs Left lung nodule-most recent scan shows slight increase in size and needs further evaluation-managed by Dr Corea-appt is this week . Dysuria-vaginal burning-UA positive for blood and [...] to quit smoking-going to start nicotine patches I GAVE YOU SAMPLES OF DEXILANT 60MG-START [...] with Dr Combs as scheduled Tingling of trohogxlxbt-aqcokmcp-cdjcy labs including vitamin b12 and vitamin d [...] bloating-use dicyclomine prn Elevated blood sugar-check Hgb T0R-cia back on sweets/carbs . Hypertension - well controlled - continue with current medications, continue with no added salt diet. Pt has been encouraged to exercise daily. The pt has been advised to call the office if there are any acute concerns about change in blood pressure readings at home. . Joint Injection - Right SI joint [...] do not improve or if they worsen. xray neck and low back then MRI [...]
--- OUTSIDE RECORDS SUMMARY | 2019-03-31 09:54 | XMS REPORT | CCD ---
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 Unknown Has never used illegal drugs 06/22/2013 Allergies, Adverse Reactions, Alerts Substance Reaction Codes Entered Date Inactivated Date Status lisinopril cough, RxNorm: 95509 06/22/2013 No Inactive Date Active SULFA (SULFONAMIDE ANTIBIOTICS) hives, Unknown 06/22/2013 No Inactive Date Active Past Medical History Illness Codes Condition Status Onset Date Resolved Date Encounter for general adult medical examination with abnormal findings ICD-9: V70.0 ICD-10: Z00.01 Active 12/03/2017 Unknown Cervicalgia ICD-9: 723.1 ICD-10: M54.2 Active [...] 9: 272.2 ICD-10: E78.2 Active 05/10/2016 Unknown lung cancer Unknown Active 07/09/2017 Unknown Gas pain ICD-9: 787.3 ICD-10: R14.1 Active 04/29/2017 Unknown Rash and other nonspecific skin eruption ICD-9: 782.1 ICD-10: R21 Active 04/29/2017 Unknown Chronic obstructive pulmonary disease, [...] Codes Effective Dates Condition Status Encounter for general adult medical examination with abnormal findings ICD-9: V70.0 ICD-10: Z00.01 12/03/2017 Active Cervicalgia ICD-9: 723.1 ICD-10: M54.2 11/25/2017 Active Essential (primary) hypertension ICD-9: 401.1 ICD-10: I10 07/09/2017 Active Impaired fasting glucose ICD-9: 790.21 ICD-10: R73.01 11/25/2017 Active Low back pain ICD-9: 724.2 ICD-10: M54.5 12/17/2015 Active Malignant neoplasm of upper lobe, left bronchus or lung ICD-9: 162.3 ICD-10: C34.12 12/08/2015 Active Mixed hyperlipidemia ICD- 9: 272.2 ICD-10: E78.2 05/10/2016 Active lung cancer Unknown 07/09/2017 Active Gas pain ICD-9: 787.3 ICD-10: R14.1 04/29/2017 Active Rash and other nonspecific skin eruption ICD-9: 782.1 ICD-10: R21 04/29/2017 Active Chronic obstructive pulmonary disease, unspecified [...] Start Date Stop Date Status Fill Instructions Diovan 320 mg tablet RxNorm: 064841 TAKE ONE TABLET BY MOUTH DAILY 03/18/2018 03/12/2019 Active Lipitor 10 mg tablet RxNorm: 484867 TAKE ONE TABLET BY MOUTH EVERY OTHER DAY 03/18/2018 12/12/2018 Active metoprolol tartrate 100 mg tablet RxNorm: 288698 TAKE ONE TABLET BY MOUTH TWICE A DAY 01/05/2018 10/01/2018 Active Diovan 320 mg tablet RxNorm: 574671 TAKE ONE TABLET BY MOUTH EVERY DAY 12/16/2017 03/17/2018 Inactive Lexapro 10 mg tablet RxNorm: 059245 1 Tablet(s) PO QPM 11/25/2017 05/23/2018 Active amlodipine 10 mg tablet RxNorm: 765744 TAKE ONE TABLET BY MOUTH EVERY DAY 11/15/2017 05/13/2018 Active Lipitor 10 mg tablet RxNorm: 324325 TAKE ONE TABLET BY MOUTH EVERY OTHER DAY 10/18/2017 03/17/2018 Inactive dicyclomine 10 mg capsule RxNorm: 026665 TAKE ONE CAPSULE BY MOUTH THREE TIMES A DAY NEEDED 08/12/2017 07/26/2020 Active Lipitor 10 mg tablet RxNorm: 289490 TAKE ONE TABLET BY MOUTH EVERY OTHER DAY 07/12/2017 10/17/2017 Inactive Diovan 320 mg tablet RxNorm: 986098 TAKE ONE TABLET BY MOUTH EVERY DAY 06/09/2017 12/05/2017 Inactive dicyclomine 10 mg capsule RxNorm: 918347 TAKE ONE CAPSULE BY MOUTH THREE TIMES A DAY NEEDED 05/05/2017 08/02/2017 Inactive nystatin 100,000 unit/gram topical powder RxNorm: 845243 1 Application TOP BID 04/29/2017 05/08/2017 Inactive Diovan 320 mg tablet RxNorm: 633903 TAKE ONE TABLET BY MOUTH EVERY DAY 03/10/2017 06/07/2017 Inactive dicyclomine 10 mg capsule RxNorm: 022771 TAKE ONE CAPSULE BY MOUTH THREE TIMES A DAY NEEDED 02/04/2017 05/04/2017 Inactive amlodipine 10 mg tablet RxNorm: 491010 TAKE ONE TABLET BY MOUTH EVERY DAY 02/04/2017 10/31/2017 Inactive Lipitor 10 mg tablet RxNorm: 023004 TAKE ONE TABLET BY MOUTH EVERY OTHER DAY 02/04/2017 07/11/2017 Inactive Fish Oil 1,000 mg capsule RxNorm: 1 Capsule(s) PO TID 01/07/2017 No Stop Date Active metoprolol tartrate 100 mg tablet RxNorm: 434367 1 Tablet(s) PO BID TAKE ONE TABLET BY MOUTH TWICE A DAY 01/07/2017 01/01/2018 Inactive Diovan 320 mg tablet RxNorm: 879551 TAKE ONE TABLET BY MOUTH EVERY DAY 11/05/2016 03/04/2017 Inactive Lipitor 10 mg tablet RxNorm: 540272 1 Tablet(s) PO every other day 09/08/2016 01/05/2017 Inactive dc livalo dicyclomine 10 mg capsule RxNorm: 666838 TAKE ONE CAPSULE BY MOUTH THREE TIMES A DAY NEEDED 07/30/2016 01/25/2017 Inactive Diovan 320 mg tablet RxNorm: 053984 TAKE ONE TABLET BY MOUTH EVERY DAY 06/15/2016 11/04/2016 Inactive Lipitor 10 mg tablet RxNorm: 786915 1 Tablet(s) PO every other day 05/25/2016 05/24/2016 Inactive dc livalo Lipitor 10 mg tablet RxNorm: 495388 1 Tablet(s) PO every other day 05/25/2016 09/07/2016 Inactive dc livalo Livalo 2 mg tablet RxNorm: 228901 1 Tablet(s) PO daily 05/20/2016 05/19/2016 Inactive Livalo 2 mg tablet RxNorm: 298985 1 Tablet(s) PO daily 05/20/2016 05/24/2016 Inactive Celexa 10 mg tablet RxNorm: 783439 1 Tablet(s) PO daily 02/10/2016 11/24/2017 Inactive amlodipine 10 mg tablet RxNorm: 998012 TAKE ONE TABLET BY MOUTH EVERY DAY 02/03/2016 02/02/2016 Inactive amlodipine 10 mg tablet RxNorm: 402786 TAKE ONE TABLET BY MOUTH EVERY DAY 02/03/2016 01/27/2017 Inactive amlodipine 10 mg tablet RxNorm: 389072 TAKE ONE TABLET BY MOUTH EVERY DAY 02/03/2016 04/27/2017 Inactive metoprolol tartrate 100 mg tablet RxNorm: 917996 TAKE ONE TABLET BY MOUTH TWICE A DAY 2016 01/06/2017 Inactive Diovan 320 mg tablet RxNorm: 621862 TAKE ONE TABLET BY MOUTH EVERY DAY 12/19/2015 06/14/2016 Inactive Wellbutrin XL 150 mg 24 hr tablet, extended release RxNorm: 587065 1 Tablet(s) PO daily 12/09/2015 02/09/2016 Inactive tramadol 50 mg tablet RxNorm: 324132 1-2 Tablet(s) PO Q6 PRN 12/09/2015 11/24/2017 Inactive Mobic 7.5 mg tablet RxNorm: 078109 TAKE ONE TABLET BY MOUTH DAILY 11/11/2015 11/24/2017 Inactive dicyclomine 10 mg capsule RxNorm: 614735 TAKE ONE CAPSULE BY MOUTH THREE TIMES A DAY NEEDED 11/11/2015 07/29/2016 Inactive Wellbutrin 75 mg tablet RxNorm: 027761 1 Tablet(s) PO BID 10/28/2015 12/08/2015 Inactive simvastatin 20 mg tablet RxNorm: 493950 TAKE ONE TABLET BY MOUTH EVERY DAY 09/05/2015 2016 Inactive Mobic 7.5 mg tablet RxNorm: 246407 1 Tablet(s) PO daily 08/26/2015 11/10/2015 Inactive estradiol 0.5 mg tablet RxNorm: 696490 TAKE ONE TABLET BY MOUTH EVERY DAY 06/11/2015 03/06/2016 Inactive amlodipine 10 mg tablet RxNorm: 085927 TAKE ONE TABLET BY MOUTH EVERY DAY 04/19/2015 01/13/2016 Inactive dicyclomine 10 mg capsule RxNorm: 718452 TAKE ONE CAPSULE BY MOUTH THREE TIMES A DAY NEEDED 04/19/2015 10/15/2015 Inactive simvastatin 20 mg tablet RxNorm: 086665 TAKE ONE TABLET BY MOUTH EVERY DAY 02/21/2015 08/19/2015 Inactive Diovan 320 mg tablet RxNorm: 810321 TAKE ONE TABLET BY MOUTH EVERY DAY 12/19/2014 12/18/2015 Inactive cephalexin 500 mg capsule RxNorm: 257076 1 Capsule(s) PO TID 11/13/2014 11/19/2014 Inactive prednisone 10 mg tablet RxNorm: 511539 3 Tablet(s) PO daily 11/13/2014 11/17/2014 Inactive prednisone 10 mg tablet RxNorm: 317716 3 Tablet(s) PO daily 11/12/2014 11/12/2014 Inactive Kenalog 40 mg/mL suspension for injection RxNorm: 3655304 Milliliter(s) Inj 11/12/2014 11/12/2014 Inactive cephalexin 500 mg capsule RxNorm: 397164 1 Capsule(s) PO TID 11/12/2014 11/12/2014 Inactive ceftriaxone 500 mg solution for injection RxNorm: 9926762 Inj 11/12/2014 11/12/2014 Inactive dicyclomine 10 mg capsule RxNorm: 893221 TAKE ONE CAPSULE BY MOUTH THREE TIMES A DAY NEEDED 11/08/2014 04/18/2015 Inactive metoprolol tartrate 100 mg tablet RxNorm: 470245 TAKE ONE TABLET BY MOUTH TWICE A DAY 10/18/2014 2015 Inactive metoprolol tartrate 100 mg tablet RxNorm: 242392 1 Tablet(s) PO BID 10/18/2014 10/12/2015 Inactive simvastatin 20 mg tablet RxNorm: 637269 TAKE ONE TABLET BY MOUTH EVERY DAY 08/21/2014 02/16/2015 Inactive Diovan 320 mg tablet RxNorm: 024370 TAKE ONE TABLET BY MOUTH EVERY DAY 08/21/2014 12/18/2014 Inactive Carafate 1 gram tablet RxNorm: 866053 1 Tablet(s) PO AC & HS MIX WITH 30ML WATER 07/23/2014 11/24/2017 Inactive dissolve in water and drink as slurry dicyclomine 10 mg capsule RxNorm: 026818 1 Capsule(s) PO TID PRN 07/23/2014 10/20/2014 Inactive simvastatin 20 mg tablet RxNorm: 184307 TAKE ONE TABLET BY MOUTH EVERY DAY 06/07/2014 08/20/2014 Inactive estradiol 0.5 mg tablet RxNorm: 791733 TAKE ONE TABLET BY MOUTH EVERY DAY 05/16/2014 05/10/2015 Inactive amlodipine 10 mg tablet RxNorm: 234436 TAKE ONE TABLET BY MOUTH EVERY DAY 05/16/2014 04/18/2015 Inactive Diovan 320 mg tablet RxNorm: 569137 TAKE ONE TABLET BY MOUTH EVERY DAY 03/26/2014 08/20/2014 Inactive Diflucan 150 mg tablet RxNorm: 189884 1 Tablet(s) PO daily 03/21/2014 03/27/2014 Inactive simvastatin 20 mg tablet RxNorm: 995876 TAKE ONE TABLET BY MOUTH EVERY DAY 03/02/2014 05/30/2014 Inactive estradiol 0.5 mg tablet RxNorm: 421853 TAKE ONE TABLET BY MOUTH EVERY DAY 02/16/2014 05/15/2014 Inactive amlodipine 10 mg tablet RxNorm: 737237 TAKE ONE TABLET BY MOUTH EVERY DAY 02/16/2014 05/15/2014 Inactive pantoprazole 40 mg tablet,delayed release RxNorm: 250546 2 Tablet(s) PO daily 01/25/2014 02/23/2014 Inactive simvastatin 20 mg tablet RxNorm: 919139 Tablet(s) PO TAKE ONE TABLET BY MOUTH EVERY DAY 11/30/2013 03/01/2014 Inactive amlodipine 10 mg tablet RxNorm: 652332 Tablet(s) PO TAKE ONE TABLET BY MOUTH EVERY DAY 11/16/2013 02/15/2014 Inactive metoprolol tartrate 100 mg tablet RxNorm: 804948 1 Tablet(s) PO BID 10/23/2013 10/17/2014 Inactive Diovan 320 mg tablet RxNorm: 120079 Tablet(s) PO TAKE ONE TABLET BY MOUTH EVERY DAY 09/28/2013 03/25/2014 Inactive Carafate 1 gram tablet RxNorm: 080241 1 Tablet(s) PO TID MIX WITH 30ML WATER 09/20/2013 12/18/2013 Inactive estradiol 0.5 mg tablet RxNorm: 760756 1 Tablet(s) PO daily 08/21/2013 02/15/2014 Inactive amlodipine 10 mg tablet RxNorm: 202480 1 Tablet(s) PO daily 08/21/2013 11/15/2013 Inactive simvastatin 20 mg tablet RxNorm: 582164 1 Tablet(s) PO daily 08/21/2013 11/18/2013 Inactive Diovan 320 mg tablet RxNorm: 320183 1 Tablet(s) PO daily 08/21/2013 09/19/2013 Inactive Carafate 1 gram tablet RxNorm: 897190 1 Tablet(s) PO TID MIX WITH 30ML WATER 08/21/2013 09/19/2013 Inactive Diovan 320 mg tablet RxNorm: 526940 1 Tablet(s) PO daily 07/20/2013 08/18/2013 Inactive amlodipine 10 mg tablet RxNorm: 483697 1 Tablet(s) PO daily 07/20/2013 08/18/2013 Inactive estradiol 0.5 mg tablet RxNorm: 366786 1 Tablet(s) PO daily 07/20/2013 08/18/2013 Inactive metoprolol tartrate 100 mg tablet RxNorm: 749016 1 Tablet(s) PO BID 06/22/2013 10/22/2013 Inactive Wellbutrin XL 150 mg 24 hr tablet, extended release RxNorm: 921580 1 Tablet(s) PO daily 06/22/2013 07/19/2013 Inactive pantoprazole 40 mg tablet,delayed release RxNorm: 427441 1 Tablet(s) PO daily No Start Date Active calcium 500 mg tablet RxNorm: 2 Tablet(s) PO BID No Start Date Active glucosamine and bhnwhxukamb-aqiccgfy-dopa#3 oral RxNorm: 2837 oral No Start Date Active multivitamin tablet RxNorm: 1 Tablet(s) PO daily No Start Date Active aspirin 81 mg tablet RxNorm: 233458 1 Tablet(s) PO daily No Start Date Active Probiotic oral RxNorm: oral No Start Date Active Vitamin D3 1,000 unit capsule RxNorm: 258082 1 Capsule(s) PO daily No Start Date Active Eliquis 5 mg tablet RxNorm: 3792407 1 Tablet(s) PO BID No Start Date Active simvastatin 20 mg tablet RxNorm: 809032 1 Tablet(s) PO daily No Start Date 08/20/2013 Inactive hyoscyamine 0.125 mg sublingual tablet RxNorm: 8418098 1 Tablet(s) SL TID No Start Date 07/22/2014 Inactive metoprolol tartrate 100 mg tablet RxNorm: 908115 1 Tablet(s) PO daily No Start Date 06/21/2013 Inactive amlodipine 10 mg tablet RxNorm: 526209 1 Tablet(s) PO daily No Start Date 07/19/2013 Inactive Diovan 320 mg tablet RxNorm: 216114 1 Tablet(s) PO daily No Start Date 07/19/2013 Inactive Fish Oil 1,000 mg capsule RxNorm: 1 Capsule(s) PO BID No Start Date 01/06/2017 Inactive omeprazole 20 mg tablet,delayed release RxNorm: 348556 1 Tablet(s) PO daily No Start Date 01/25/2014 Inactive estradiol 0.5 mg tablet RxNorm: 277243 1 Tablet(s) PO daily No Start Date 07/19/2013 Inactive Medication Administered Medication Codes Instructions Start Date Status ceftriaxone 500 mg solution for injection RxNorm: 9936540 11/12/2014 No longer Active Kenalog 40 mg/mL suspension for injection RxNorm: 0601672 Milliliter 11/12/2014 No longer Active Immunizations Vaccine Codes Date Status Influenza CVX: 141 05/11/2016 completed Pneumococcal (Adult) CVX: 133 05/11/2016 completed Influenza CVX: 141 08/13/2013 completed Assessments Condition Codes Effective Dates Encounter for general adult medical examination with abnormal findings ICD-10: Z00.01 ICD-9: V70.0 12/03/2017 Essential (primary) hypertension ICD-10: I10 ICD-9: 401.1 11/25/2017 Malignant neoplasm of upper lobe, left bronchus or lung ICD-10: C34.12 ICD-9: 162.3 11/25/2017 Low back pain ICD-10: M54.5 ICD-9: 724.2 11/25/2017 Impaired fasting glucose ICD-10: R73.01 ICD-9: 790.21 11/25/2017 Cervicalgia ICD-10: M54.2 ICD-9: 723.1 11/25/2017 Mixed hyperlipidemia ICD-10: E78.2 ICD-9: 272.2 11/25/2017 Rash and other nonspecific skin eruption ICD-10: R21 ICD-9: 782.1 04/29/2017 Gas pain ICD-10: R14.1 ICD-9: 787.3 04/29/2017 [...] Visit Reason For Visit Effective Dates Notes Annual Medicare Wellness Exam 12/03/2017 hypertension 11/25/2017 [...] Lipid Ord30 C/HDL 3.5 Ratio 11/25/2017 %Hba1C Gpe199 % HbA1c 25012- 6 5.7 % 11/25/2017 %Hba1C Fks463 Gluc Ave 117 mg/dL 11/25/2017 Tsh Ord6 TSH (3rd IS) 1.06 uIU/mL 11/25/2017 Comp Metabolic Kht532 NA 141 mEq/L 11/25/2017 Comp Metabolic Jmz391 K 4.2 mEq/L 11/25/2017 Comp Metabolic Fwv237 CL 103 mEq/L 11/25/2017 Comp Metabolic Dcp791 CO2 31.0 mEq/L 11/25/2017 Comp Metabolic Vsn124 ANION GAP 11 11/25/2017 Comp Metabolic Qej187 GLUCOSE 117 mg/dL 11/25/2017 Comp Metabolic Oxp194 Creat 0.8 mg/dL 11/25/2017 Comp Metabolic Gly254 eGFR 74 ml/min/1.73m2 11/25/2017 Comp Metabolic Bxa245 BUN 18 mg/dL 11/25/2017 Comp Metabolic Saa022 B/C Ratio 22.2 Ratio 11/25/2017 Comp Metabolic Hdc759 CALCIUM 9.4 mg/dL 11/25/2017 Comp Metabolic Mqu930 ALK PHOS 62 U/L 11/25/2017 Comp Metabolic Emm612 AST(SGOT) 21 U/L 11/25/2017 Comp Metabolic Ksu553 ALT(SGPT) 18 U/L 11/25/2017 Comp Metabolic Qkl250 BILI T 0.4 mg/dL 11/25/2017 Comp Metabolic Jcx126 ALBUMIN 4.0 g/dL 11/25/2017 Comp Metabolic Pxy196 TPRO 6.1 g/dL 11/25/2017 Comp Metabolic Inv235 GLOB 2.1 g/dL 11/25/2017 Comp Metabolic Ayg696 A/G Ratio 1.9 Ratio 11/25/2017 Comp Metabolic Nxo965 Osmo 284 mOsmo 11/25/2017 Cbc With Differential [...] 31.1 pg 11/25/2017 Cbc With Differential Ord2 Crook% 11.2 % 11/25/2017 Cbc With Differential Ord2 [...] 2.03 K/ul 11/25/2017 Cbc With Differential Ord2 Crook ABS# 0.6 K/ul 11/25/2017 Cbc With Differential [...] 38.1 % 05/11/2016 Cbc With Differential Ord2 Crook% 9.5 % 05/11/2016 Cbc With Differential Ord2 [...] 1.76 K/ul 05/11/2016 Cbc With Differential Ord2 [place] ABS# 0.4 K/ul 05/11/2016 Cbc With Differential Ord2 Eos ABS# 0.1 K/ul 05/11/2016 Cbc With Differential Ord2 Baso ABS# 0.0 K/ul 05/11/2016 Comp Metabolic Cwy543 NA 139 mEq/L 05/11/2016 Comp Metabolic Fua859 K 4.6 mEq/L 05/11/2016 Comp Metabolic Kde247 CL 104 mEq/L 05/11/2016 Comp Metabolic Tjq250 CO2 30.0 mEq/L 05/11/2016 Comp Metabolic Jwy277 ANION GAP 10 05/11/2016 Comp Metabolic Blq558 GLUCOSE 113 mg/dL 05/11/2016 Comp Metabolic Sft445 Creat 0.8 mg/dL 05/11/2016 Comp Metabolic Igi062 eGFR 74 ml/min/1.73m2 05/11/2016 Comp Metabolic Ple791 BUN 16 mg/dL 05/11/2016 Comp Metabolic Dfb458 B/C Ratio 19.8 Ratio 05/11/2016 Comp Metabolic Fru188 CALCIUM 10.1 mg/dL 05/11/2016 Comp Metabolic Mcp359 ALK PHOS 44 U/L 05/11/2016 Comp Metabolic Ddc846 AST(SGOT) 20 U/L 05/11/2016 Comp Metabolic Cuy988 ALT(SGPT) 17 U/L 05/11/2016 Comp Metabolic Hvt754 BILI T 0.4 mg/dL 05/11/2016 Comp Metabolic Wdr001 ALBUMIN 4.1 g/dL 05/11/2016 Comp Metabolic Jqk537 TPRO 6.5 g/dL 05/11/2016 Comp Metabolic Egi678 GLOB 2.4 g/dL 05/11/2016 Comp Metabolic Fpo030 A/G Ratio 1.8 Ratio 05/11/2016 Comp Metabolic Mit418 Osmo 280 mOsmo 05/11/2016 Tsh Ord6 hTSH II 0.96 uIU/mL 05/11/2016 Lipid Ord30 CHOL 283 mg/dL 05/11/2016 Lipid Ord30 HDL 53.0 mg/dl 05/11/2016 Lipid Ord30 TRIG 144 mg/dL 05/11/2016 Lipid Ord30 LDL 201 mg/dL 05/11/2016 Lipid Ord30 C/HDL 5.3 Ratio 05/11/2016 C-Reactive Protein Qnt Crqnt CRP 0.5 mg/dl 12/18/2015 Vitamin D 25 Oh [id number] VITAMIN D, 25 HYDROXY 84.50 ng/mL 12/18/2015 Comp Metabolic Wfa995 NA 139 mEq/L 12/18/2015 Comp Metabolic Rnc316 K 3.8 mEq/L 12/18/2015 Comp Metabolic Tgo798 CL 103 mEq/L 12/18/2015 Comp Metabolic Pex967 CO2 31.0 mEq/L 12/18/2015 Comp Metabolic Asy708 ANION GAP 9 12/18/2015 Comp Metabolic Jam529 GLUCOSE 107 mg/dL 12/18/2015 Comp Metabolic Iua159 Creat 0.8 mg/dL 12/18/2015 Comp Metabolic Fgx879 eGFR 80 ml/min/1.73m2 12/18/2015 Comp Metabolic Vjy309 BUN 19 mg/dL 12/18/2015 Comp Metabolic Qqh399 B/C Ratio 25.0 Ratio 12/18/2015 Comp Metabolic Fde045 CALCIUM 9.1 mg/dL 12/18/2015 Comp Metabolic Uiu780 ALK PHOS 42 U/L 12/18/2015 Comp Metabolic Zts049 AST(SGOT) 17 U/L 12/18/2015 Comp Metabolic Mfj293 ALT(SGPT) 18 U/L 12/18/2015 Comp Metabolic Vvj426 BILI T 0.3 mg/dL 12/18/2015 Comp Metabolic Mmv670 ALBUMIN 3.8 g/dL 12/18/2015 Comp Metabolic Aex731 TPRO 5.9 g/dL 12/18/2015 Comp Metabolic Quc727 GLOB 2.1 g/dL 12/18/2015 Comp Metabolic Rhe963 A/G Ratio 1.8 Ratio 12/18/2015 Comp Metabolic Zdk607 Osmo 280 mOsmo 12/18/2015 Sed Rate Ord21 [...] 97.6 fl 12/18/2015 Cbc With Differential Ord2 Crook% 9.3 % 12/18/2015 Cbc With Differential Ord2 [...] 1.45 K/ul 12/18/2015 Cbc With Differential Ord2 Crook ABS# 0.5 K/ul 12/18/2015 Cbc With Differential [...] 31.6 pg 09/02/2015 Cbc With Differential Ord2 Crook% 8.8 % 09/02/2015 Cbc With Differential Ord2 [...] 1.53 K/ul 09/02/2015 Cbc With Differential Ord2 Crook ABS# 0.5 K/ul 09/02/2015 Cbc With Differential Ord2 Eos ABS# 0.1 K/ul 09/02/2015 Cbc With Differential Ord2 Baso ABS# 0.0 K/ul 09/02/2015 Cbc With Differential Ord2 New Analyzer Notice Please note new ref ranges starting 08-14-2015 due to implemntation of new five part differential hematolgy analyzer. 09/02/2015 Tsh Ord6 hTSH II 1.41 uIU/mL 09/02/2015 Comp Metabolic Qfg858 NA 136 mEq/L 09/02/2015 Comp Metabolic Agw501 K 4.5 mEq/L 09/02/2015 Comp Metabolic Ngn060 CL 103 mEq/L 09/02/2015 Comp Metabolic Uhh127 CO2 27.0 mEq/L 09/02/2015 Comp Metabolic Odz158 ANION GAP 11 09/02/2015 Comp Metabolic Zyu799 GLUCOSE 109 mg/dL 09/02/2015 Comp Metabolic Vdx230 Creat 1.0 mg/dL 09/02/2015 Comp Metabolic Npj647 eGFR 62 ml/min/1.73m2 09/02/2015 Comp Metabolic Wap021 BUN 21 mg/dL 09/02/2015 Comp Metabolic Ugk097 B/C Ratio 22.1 Ratio 09/02/2015 Comp Metabolic Bqy219 CALCIUM 9.3 mg/dL 09/02/2015 Comp Metabolic Dfr762 ALK PHOS 37 U/L 09/02/2015 Comp Metabolic Tld461 AST(SGOT) 19 U/L 09/02/2015 Comp Metabolic Vrg047 ALT(SGPT) 16 U/L 09/02/2015 Comp Metabolic Dtc702 BILI T 0.4 mg/dL 09/02/2015 Comp Metabolic Wdr431 ALBUMIN 4.1 g/dL 09/02/2015 Comp Metabolic Gzy883 TPRO 6.3 g/dL 09/02/2015 Comp Metabolic Gof937 GLOB 2.2 g/dL 09/02/2015 Comp Metabolic Syt533 A/G Ratio 1.8 Ratio 09/02/2015 Comp Metabolic Hwq219 Osmo 276 mOsmo 09/02/2015 A1C HPLC [id number] A1C HPLC 99523-6 5.6 % 07/23/2014 VIT D TOTL 9214151 VIT D TOTL 52 NG/ML 07/20/2013 GFR CALC 7566935 GFR AA >60 ML/MIN 07/20/2013 GFR CALC 1745776 GFR NON-AA >60 ML/MIN 07/20/2013 CBC 5719878 WBC 5.9 10e9/L 07/20/2013 CBC 1477754 RBC 4.79 10e12/L 07/20/2013 CBC 6040795 HGB 15.5 g/dL 07/20/2013 CBC 0534849 HCT DET 46.1 % 07/20/2013 CBC 3338989 MCV 96.2 fL 07/20/2013 CBC 6100438 MCH 32.4 pg 07/20/2013 CBC 7056929 MCHC 33.6 g/dL 07/20/2013 CBC 5225060 PLT 286 10e9/L 07/20/2013 CBC 4773844 MPV 10.8 fL 07/20/2013 CBC 5637177 ERINN % 66.1 % 07/20/2013 CBC 7178645 LY % 24.3 % 07/20/2013 CBC 5677274 MON % 8.1 % 07/20/2013 CBC 3994260 EOS % 1.2 % 07/20/2013 CBC 4178406 BASO % 0.3 % 07/20/2013 CBC 9092749 RDW 12.7 % 07/20/2013 CBC 0609741 ABS ERINN 3.90 10e9/L 07/20/2013 CBC 0589640 ABS LYMPH 1.43 10e9/L 07/20/2013 CBC 7188004 ABS MONO 0.48 10e9/L 07/20/2013 CBC 6996358 ABS EOS 0.07 10e9/L 07/20/2013 CBC 2234341 ABS BASO 0.02 10e9/L 07/20/2013 CBC 1986727 RDW-SD 44.1 fL 07/20/2013 A1C HPLC 8030838 A1C HPLC 60271-6 5.9 % 07/20/2013 LIPID GRP HDL TEST 54 MG/DL 07/20/2013 LIPID GRP TRIG 98 MG/DL 07/20/2013 LIPID GRP TEST LDL 95 MG/DL 07/20/2013 LIPID GRP CHOL 169 MG/DL 07/20/2013 LIPID GRP RCHOL/HDL 3.13 RATIO 07/20/2013 TSH 0568346 TSH 1.032 uIU/ML 07/20/2013 CHEM 14 3610822 AST 18 U/L 07/20/2013 CHEM 14 5671304 ALT 13 IU/L 07/20/2013 CHEM 14 0746478 BUN 19 MG/DL 07/20/2013 CHEM 14 7454612 ALBUMIN 4.5 GM/DL 07/20/2013 CHEM 14 1079038 CHLORIDE 105 MMOL/L 07/20/2013 CHEM 14 1300677 BILI TOT 0.5 MG/DL 07/20/2013 CHEM 14 3747496 ALK PHOS 40 U/L 07/20/2013 CHEM 14 7660133 SODIUM 137 MMOL/L 07/20/2013 CHEM 14 0088669 CREATININE 0.76 MG/DL 07/20/2013 CHEM 14 4735790 CALCIUM 10.0 MG/DL 07/20/2013 CHEM 14 5663720 POTASSIUM 4.6 MMOL/L 07/20/2013 CHEM 14 1196496 PROT TOT 6.5 GM/DL 07/20/2013 CHEM 14 9094820 GLUCOSE 118 MG/DL 07/20/2013 CHEM 14 0496424 BICARB 26 MMOL/L 07/20/2013 CHEM 14 0814227 ANION GAP 6 MEQ/L 07/20/2013 VIT B 12 9702867 VIT B 12 492 PG/ML 07/20/2013 Review of Systems System Result Effective Dates Constitutional No recent illness 12/03/2017 Constitutional No [...] sounds 04/29/2017 None Full Exam - General 1995 Lymphatic [...] and bra line Full Exam - General 1995 Integument inspection of skin Location: back 10/23/2013 None Full Exam - General 1994 Neurologic cranial nerves Overall: crainial nerves 2 - 12 grossly intact 10/23/2013 None Full Exam - General 1994 Psychiatric orientation/consciousness Overall: oriented to person, place and time 10/23/2013 None Full Exam - General 1995 Constitutional general appearance Overall: well developed 08/21/2013 None Full Exam - General 1994 Constitutional general appearance Overall: in no acute distress 08/21/2013 None Full Exam - General 1994 Constitutional general appearance Overall: well nourished 08/21/2013 None Full Exam - General 1995 Eyes conjunctiva/eyelids Overall: conjunctiva clear 08/21/2013 None [...] SUBSEQ VISIT CPT- 4: G0439 12/03/2017 TOBACCO-USE EXTRUSION DIE COORDINATOR 3-[address]: 087950263 CPT-4: G0436 09/08/2016 ADMIN INFLUENZA VIRUS VAC CPT-4: G0008 05/11/2016 PNEUMOCOCCAL VACC 13 SAULO IM Formatting Model/CDA Sections, Assigned to/Rafia Cuadra SNOMED CT: 63677945 CPT-4: 75230Heqpphm 05/11/2016 ADMIN PNEUMOCOCCAL VACCINE SNOMED CT: 76064267 CPT-4: G0009 05/11/2016 FLU VACC 4 SAULO 3 YRS PLUS IM Formatting Model/CDA Sections, Assigned to/Rafia Cuadra SNOMED CT: 44474373 CPT-4: 27830Vcgwlsp 05/11/2016 TOBACCO-USE EXTRUSION DIE COORDINATOR 3-[address]: 655040714 CPT-4: G0436 02/10/2016 TRIAMCINOLONE ACET INJ NOS CPT-4: J3301 12/16/2015 DRAIN/INJECT JOINT/BURSA CPT-4: 86197 12/16/2015 TOBACCO-USE EXTRUSION DIE COORDINATOR 3-[address]: 061708694 CPT-4: G0436 12/09/2015 TOBACCO-USE EXTRUSION DIE COORDINATOR 3-[address]: 403144419 CPT-4: G0436 10/28/2015 THER/PROPH/DIAG INJ SC/IM CPT-4: 40637 11/12/2014 TRIAMCINOLONE ACET INJ NOS CPT-4: J3301 11/12/2014 ROCEPHIN, PER 250 MG CPT- 4: J0696 11/12/2014 ROUTINE VENIPUNCTURE CPT- 4: 97654 07/23/2014 URINALYSIS NONAUTO W/O SCOPE CPT-4: 78360 03/21/2014 ROUTINE VENIPUNCTURE CPT- 4: 40486 07/20/2013 PRESCRIP TRANSMIT VIA ERX SY CPT-4: G8553 07/20/2013 PRESCRIP TRANSMIT VIA ERX SY CPT-4: G8553 06/22/2013 PARTIAL REMOVAL OF LUNG CPT-4: 50278 Unknown Vital Signs Date Vital 12/03/2017 Blood Pressure 1: 142/86 Code: 8480-6 BMI: 29.5 Code: 10654-5 Heart Rate 1: 74 bpm Height: 5'5" SpO2: 93% Weight: 177 lbs 11/25/2017 Blood Pressure 1: 142/84 Code: 8480-6 BMI: 29.5 Code: 98846-6 Heart Rate 1: 69 bpm Height: 5'5" SpO2: 99% Weight: 177 lbs 07/09/2017 Blood Pressure 1: 142/68 Code: 8480-6 BMI: 28.3 Code: 03065-7 Heart Rate 1: 48 bpm Height: 5'5" SpO2: 97% Weight: 170 lbs 04/29/2017 Blood Pressure 1: 148/86 Code: 8480-6 BMI: 28.6 Code: 89210-2 Heart Rate 1: 71 bpm Height: 5'5" SpO2: 95% Weight: 172 lbs 01/07/2017 Blood Pressure 1: 140/70 Code: 8480-6 BMI: 28.8 Code: 66419-6 Heart Rate 1: 68 bpm Height: 5'5" SpO2: 96% Weight: 173 lbs 09/08/2016 Blood Pressure 1: 134/70 Code: 8480-6 BMI: 29.1 Code: 13616-0 Heart Rate 1: 68 bpm Height: 5'5" SpO2: 99% Weight: 175 lbs 05/11/2016 Blood Pressure 1: 138/88 Code: 8480-6 BMI: 29.2 Code: 07645-2 Heart Rate 1: 67 bpm Height: 5'6" SpO2: 95% Weight: 178 lbs 02/10/2016 Blood Pressure 1: 148/82 Code: 8480-6 BMI: 28.8 Code: 33450-6 Heart Rate 1: 63 bpm Height: 5'6" SpO2: 97% Weight: 176 lbs 12/18/2015 Blood Pressure 1: 130/78 Code: 8480-6 BMI: 28.8 Code: 24659-1 Heart Rate 1: 66 bpm Height: 5'6" SpO2: 98% Weight: 176 lbs 12/16/2015 Blood Pressure 1: 162/100 Code: 8480-6 BMI: 28.8 Code: 15643-2 Heart Rate 1: 65 bpm Height: 5'6" SpO2: 98% Weight: 176 lbs 12/09/2015 Blood Pressure 1: 142/70 Code: 8480-6 BMI: 28.4 Code: 50201-3 Heart Rate 1: 65 bpm Height: 5'6" SpO2: 96% Weight: 173 lbs 10/28/2015 Blood Pressure 1: 160/82 Code: 8480-6 Blood Pressure 1: 140/86 Code: 8480-6 BMI: 28.5 Code: 89741-2 Heart Rate 1: 60 bpm Height: 5'6" SpO2: 96% Weight: 174 lbs 08/26/2015 Blood Pressure 1: 158/80 Code: 8480-6 Blood Pressure 1: 148/88 Code: 8480-6 BMI: 28.0 Code: 72290-8 Heart Rate 1: 68 bpm Height: 5'6" SpO2: 98% Weight: 171 lbs 02/12/2015 Blood Pressure 1: 136/74 Code: 8480-6 BMI: 25.9 Code: 02622-6 Heart Rate 1: 61 bpm Height: 5'6" SpO2: 97% Weight: 158 lbs 11/12/2014 Blood Pressure 1: 140/82 Code: 8480-6 BMI: 25.9 Code: 01329-9 Heart Rate 1: 64 bpm Height: 5'6" SpO2: 97% Weight: 158 lbs 07/23/2014 Blood Pressure 1: 138/88 Code: 8480-6 BMI: 25.6 Code: 41009-9 Heart Rate 1: 57 bpm Height: 5'6" SpO2: 95% Weight: 156 lbs 03/21/2014 Blood Pressure 1: 124/64 Code: 8480-6 Heart Rate 1: 64 bpm Weight: 147 lbs 01/25/2014 Blood Pressure 1: 130/70 Code: 8480-6 BMI: 24.4 Code: 69574-5 Height: 5'6" Weight: 149 lbs 10/23/2013 Blood Pressure 1: 152/82 Code: 8480-6 BMI: 25.7 Code: 49162-9 Heart Rate 1: 60 bpm Height: 5'6" Weight: 157 lbs 08/21/2013 Blood Pressure 1: 142/90 Code: 8480-6 BMI: 25.9 Code: 61277-5 Heart Rate 1: 56 bpm Height: 5'6" Weight: 158 lbs 07/20/2013 Blood Pressure 1: 164/80 Code: 8480-6 BMI: 26.2 Code: 52790-8 Heart Rate 1: 60 bpm Height: 5'6" SpO2: 98% Weight: 160 lbs 06/22/2013 Blood Pressure 1: 140/84 Code: 8480-6 BMI: 28.2 Code: 59509-2 Heart Rate 1: 60 bpm Height: 5'6" Weight: 172 lbs Functional Status No Functional Status data History of Present Illness Symptom Name Status Result Effective Date Notes Annual Medicare Wellness Exam Describe Your Health [...] data Encounters Encounter Performer Location Codes Date ([id number]) [id number] EST. PATIENT, LEVEL IV Diagnosis: Essential (primary) hypertension[ICD10: I10] Diagnosis: Mixed hyperlipidemia[ICD10: E78.2] Diagnosis: Malignant neoplasm of upper lobe, left bronchus or lung[ICD10: C34.12] Diagnosis: Impaired fasting glucose[ICD10: R73.01] Diagnosis: Cervicalgia[ICD10: M54.2] Diagnosis: Low back pain[ICD10: M54.5] Marily Gonzalez MD, [facility] CPT-4: 44604 11/25/2017 ([id number]) 96866 EST. PATIENT, LEVEL III Diagnosis: Essential (primary) hypertension[ICD10: I10] Marily Gonzalez MD, [facility] CPT-4: 89590 07/09/2017 ([id number]) 51172 EST. PATIENT, LEVEL III Diagnosis: Gas pain[ICD10: R14.1] Diagnosis: Rash and other nonspecific skin eruption[ICD10: R21] Marily Gonzalez MD, [facility] CPT-4: 27910 04/29/2017 ([id number]) 07426 EST. PATIENT, LEVEL III Diagnosis: Essential (primary) hypertension[ICD10: I10] Diagnosis: Malignant neoplasm of upper lobe, left bronchus or lung[ICD10: C34.12] Diagnosis: Chronic obstructive pulmonary disease, unspecified[ICD10: J44.9] Marily Gonzalez MD, [facility] CPT-4: 07265 01/07/2017 ([id number]) 42410 EST. PATIENT, LEVEL IV Diagnosis: Essential (primary) hypertension[ICD10: I10] Diagnosis: Mixed hyperlipidemia[ICD10: E78.2] Diagnosis: Tobacco use[ICD10: Z72.0] Diagnosis: Malignant neoplasm of upper lobe, left bronchus or lung[ICD10: C34.12] Marily Gonzalez MD, [facility] CPT-4: 64532 09/08/2016 ([id number]) 26890 EST. PATIENT, LEVEL IV Diagnosis: Essential (primary) hypertension[ICD10: I10] Diagnosis: Mixed hyperlipidemia[ICD10: E78.2] Diagnosis: Generalized anxiety disorder[ICD10: F41.1] Diagnosis: Other specified disorders of bone density and structure, multiple sites[ICD10: M85.89] Marily Gonzalez MD, [facility] CPT-4: 88873 05/11/2016 ([id number]) 26586 EST. PATIENT, LEVEL IV Diagnosis: Essential (primary) hypertension[ICD10: I10] Diagnosis: Generalized anxiety disorder[ICD10: F41.1] Diagnosis: Tobacco use[ICD10: Z72.0] Marily Gonzalez MD, [facility] CPT-4: 87786 02/10/2016 01280 EST. PATIENT, LEVEL IV Diagnosis: Myalgia[ICD10: M79.1] Diagnosis: Low back pain[ICD10: M54.5] Joy Gonzalez MD, [facility] CPT-4: 24819 12/18/2015 92660 EST. PATIENT, LEVEL IV Diagnosis: Low back pain[ICD10: M54.5] Diagnosis: Pain in right hip[ICD10: M25.551] Joy Gonzalez MD, [facility] CPT-4: 45470 12/16/2015 ([id number]) 86166 EST. PATIENT, LEVEL IV Diagnosis: Low back pain[ICD10: M54.5] Diagnosis: Malignant neoplasm of upper lobe, left bronchus or lung[ICD10: C34.12] Diagnosis: Tobacco use[ICD10: Z72.0] Diagnosis: Essential (primary) hypertension[ICD10: I10] Diagnosis: Generalized anxiety disorder[ICD10: F41.1] Marily Gonzalez MD, [facility] CPT-4: 31654 12/09/2015 ([id number]) 35903 EST. PATIENT, LEVEL IV Diagnosis: Essential (primary) hypertension[ICD10: I10] Diagnosis: Tobacco use[ICD10: Z72.0] Diagnosis: Solitary pulmonary nodule[ICD10: R91.1] Marily Gonzalez MD, [facility] CPT-4: 88126 10/28/2015 ([id number]) 56012 EST. PATIENT, LEVEL IV Diagnosis: Essential (primary) hypertension[ICD10: I10] Diagnosis: Bilateral primary osteoarthritis of hip[ICD10: M16.0] Diagnosis: Solitary pulmonary nodule[ICD10: R91.1] Marily Gonzalez MD, [facility] CPT-4: 26443 08/26/2015 ([id number]) 38211 EST. PATIENT, LEVEL IV Diagnosis: ESSENTIAL HYPERTENSION[ICD9: 401.9] Diagnosis: Pulmonary nodule[ICD9: 793.11] Teresa Gonzalez MD, [facility] CPT-4: 28493 02/12/2015 ([id number]) 64471 EST. PATIENT, LEVEL III Diagnosis: ACUTE BRONCHITIS[ICD9: 466.0] Diagnosis: ALLERGIC RHINITIS[ICD9: 477.9] Teresa Gonzalez MD, [facility] CPT-4: 81209 11/12/2014 ([id number]) 29344 EST. PATIENT, LEVEL IV Diagnosis: ESOPHAGEAL REFLUX[ICD9: 530.81] Diagnosis: ESSENTIAL HYPERTENSION[ICD9: 401.9] Diagnosis: Elevated blood sugar[ICD9: 790.29] Marily Gonzalez MD, [facility] CPT- 4: 78940 07/23/2014 ([id number]) 26106 EST. PATIENT, LEVEL III Diagnosis: Vaginal yeast infection[ICD9: 112.1] Diagnosis: Vaginal burning[ICD9: 625.8] Diagnosis: History of UTI[ICD9: V13.02] Diagnosis: Dysuria[ICD9: 788.1] Marily Gonzalez MD, [facility] CPT-4: 07138 03/21/2014 ([id number]) 22300 EST. PATIENT, LEVEL III Diagnosis: ESSENTIAL HYPERTENSION[ICD9: 401.9] Marily Gonzalez MD, [facility] CPT-4: 96132 01/25/2014 ([id number]) 28434 EST. PATIENT, LEVEL III Diagnosis: ESSENTIAL HYPERTENSION[SNOMED: 24709543] Diagnosis: ESOPHAGEAL REFLUX[ICD9: 530.81] Teresa Goznalez MD [facility] CPT-4: 90111 10/23/2013 ([id number]) 40021 EST. PATIENT, LEVEL IV Diagnosis: ESOPHAGEAL REFLUX[ICD9: 530.81] Diagnosis: ESSENTIAL HYPERTENSION[SNOMED: 52183906] Diagnosis: Rash[ICD9: 782.1] [facility] CPT-4: 18253 08/21/2013 ([id number]) 44052 EST. PATIENT, LEVEL IV Diagnosis: Muscle ache of extremity[ICD9: 729.1] Diagnosis: Tingling in extremities[ICD9: 782.0] Diagnosis: ESSENTIAL HYPERTENSION[SNOMED: 25300716] Diagnosis: GERD (gastroesophageal reflux disease)[ICD9: 530.81] Diagnosis: Elevated blood sugar[ICD9: 790.29] [facility] CPT- 4: 10399 07/20/2013 OFFICE VISIT, NEW - LEVEL 3 Diagnosis: ESSENTIAL HYPERTENSION[SNOMED: 52403793] Diagnosis: Tobacco use[ICD9: 305.1] Diagnosis: Depression[ICD9: 311] [facility] CPT-4: 62050 06/22/2013 ([id number]) BEHAV CHNG SMOKING 3-10 MIN Diagnosis: [ICD9: ] [facility] CPT-4: 85744 06/22/2013 Plan of Care Planned Activity Notes Codes Status Date Visit Plan: Medicare Exam - today we [...] vs PT 11/25/2017 Appointment: Marily Valerio WPtel: [address] [place], [place] [phone] (15 min) Moderate 11/25/2017 Patient Education: Patient Medication Summary Completed 11/25/2017 Care Plan: X-RAY EXAM L-S SPINE 2/3 VWS LOINC : 91030-5 Pending 11/25/2017 Care Plan: X-RAY EXAM NECK SPINE 2-3 VW LOINC : 66217-0 Pending 11/25/2017 Appointment: Marily Valerio WPtel: [address] [place], [place] [phone] (15 min) Moderate 11/02/2017 Visit Plan: Hypertension [...] Dr Ryan 07/09/2017 Appointment: Marily Valerio WPtel: [address] [place], [place] [phone] (15 min) Moderate 07/09/2017 Patient Education: Patient Medication Summary Completed 07/09/2017 Patient Education: Smoking and Tobacco Addiction Completed 07/09/2017 Appointment: Marily Valerio WPtel: [address] [place], [place] [phone] (15 min) Moderate 07/08/2017 Visit Plan: Gas and bloating-cut out dairy x 2 weeks-increase gas x to TID-call if symptoms uncontrolled Rash-rx for nystatin powder provided-keep clean/dry-call if does not resolve or if any worse 04/29/2017 Appointment: Marily Valerio WPtel: [address] [place], [place] [phone] (15 min) Moderate 04/29/2017 Patient Education: Patient [...] nicotine patches 01/07/2017 Appointment: Marily Valerio WPtel: [address] [place], [place] [phone] (15 min) Moderate 01/07/2017 Patient Education: Patient Medication Summary Completed 01/07/2017 Patient Education: Smoking and Tobacco Addiction Completed 01/07/2017 Patient Education: Hypertension Completed 01/07/2017 Appointment: Marily Valerio WPtel: [address] [place], [place] [phone] [place] [address] (30 min) Complex 01/05/2017 Visit Plan: Hypertension [...] Ryan in 09/08/2016 Appointment: Marily Valerio WPtel: [phone] (15 min) Moderate 09/08/2016 Patient Education: Patient [...] density 05/11/2016 Appointment: Marily Valerio WPtel: [phone] [phone] (15 min) Moderate 05/11/2016 Patient Education: Patient [...] Plan: MRI LUMBAR SPINE W/O DYE [facility] : 26177-2 Cancelled 01/17/2016 Visit Plan: Continued Low back [...] they worsen. 12/18/2015 Appointment: Marily Valerio WPtel: [address] [place], [place] [phone] (30 min) Complex 12/18/2015 Patient Education: Patient [...] worsen. 12/16/2015 [facility]ment: [phone] [facility] [place] (15 min) Moderate 12/16/2015 Patient [...] to have left upper lobe removed at [facility] this to schedule Tobacco use-no cigarettes since [...] blood pressure readings at home. Arthritis of apva-uyxa-ibycm mobic-monitor symptoms-check labs Left lung nodule- most recent scan shows slight increase in size and needs further evaluation- [facility] 08/26/2015 Appointment: [facility] [phone] [phone] [place] (30 min) Complex 08/26/2015 Patient Education: Patient Medication Summary Completed 08/26/2015 Patient Education: Hypertension Completed 08/26/2015 Appointment: [phone] [place] (15 min) Moderate 08/15/2015 Appointment: Teresa [phone] [facility] [place] (15 min) Moderate 08/15/2015 Visit Plan: Hypertension - well controlled - continue with current medications, continue with no added salt diet. Pt has been encouraged to exercise daily. The pt has been advised to call the office if there are any acute concerns about change in blood pressure readings at home. Pulmonary nodule - Recommended repeat CT scan. 02/12/2015 Appointment: [place]: [facility] Follow up 02/12/2015 Patient Education: Patient Medication [...] bloating-use dicyclomine prn Elevated blood sugar-check Hgb J8S-fwn back on sweets/carbs 07/23/2014 Appointment: Follow up [...] home. 01/25/2014 Appointment: Marily Valerio WPtel: [phone] [phone] Follow up 01/25/2014 Patient Education: Patient Medication [...] [place]. 10/23/2013 Appointment: Teresa Gonzalez WPtel: [phone] [facility] Follow up 10/23/2013 Patient Education: Patient Medication [...] worse. 08/21/2013 Appointment: Marily Valerio WPtel: [phone] [phone] Follow up 08/21/2013 Patient Education: Patient Medication [...] with Dr Combs as scheduled Tingling of xuywqpgalhu-risivtrn-jmmtc labs including vitamin b12 and vitamin d Elevated blood sugar-check hgb a1c 07/20/2013 Appointment: Marily Valerio WPtel: [phone] [place] [address] Follow up 07/20/2013 Patient Education: Patient Medication [...] quit date. 06/22/2013 Appointment: Marily Valerio WPtel: [phone] New Patient 06/22/2013 Patient Education: Patient Medication [...] not resolve or if any worse. [employer] PREVNAR 13 . Hypertension [...] with Dr Combs as scheduled Tingling of bxyjquwdhtw-vkxxmprf-kpdqd labs including vitamin b12 and vitamin d [...] to have left upper lobe removed at -[facility] this week to schedule Tobacco use-no [...] blood pressure readings at home. Arthritis of ffwp-olqf-uudka mobic-monitor symptoms-check labs Left lung nodule-most recent [...] bloating-use dicyclomine prn Elevated blood sugar-check Hgb S1T-smq back on sweets/carbs . Hypertension - well [...]
--- OUTSIDE RECORDS SUMMARY | 2019-03-31 09:57 | XMS REPORT | CCD ---
Author Author Marily Valerio MD, 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 Unknown Has never used illegal drugs 06/22/2013 Allergies, Adverse Reactions, Alerts Substance Reaction Codes Entered Date Inactivated Date Status lisinopril cough, RxNorm: 85868 06/22/2013 No Inactive Date Active SULFA (SULFONAMIDE [...] Fill Instructions Diovan 320 mg tablet RxNorm: 614847 TAKE ONE TABLET BY MOUTH DAILY 03/18/2018 03/12/2019 Active metoprolol tartrate 100 mg tablet RxNorm: 277160 TAKE ONE TABLET BY MOUTH TWICE A DAY 01/05/2018 10/01/2018 Active Diovan 320 mg tablet RxNorm: 181059 TAKE ONE TABLET BY MOUTH EVERY DAY 12/16/2017 03/17/2018 Inactive Lexapro 10 mg tablet RxNorm: 653451 1 Tablet(s) PO QPM 11/25/2017 05/23/2018 Active amlodipine 10 mg tablet RxNorm: 404415 TAKE ONE TABLET BY MOUTH EVERY DAY 11/15/2017 05/13/2018 Active Lipitor 10 mg tablet RxNorm: 384914 TAKE ONE TABLET BY MOUTH EVERY OTHER DAY 10/18/2017 10/12/2018 Active dicyclomine 10 mg capsule RxNorm: 239094 TAKE ONE CAPSULE BY MOUTH THREE TIMES A DAY NEEDED 08/12/2017 07/26/2020 Active Lipitor 10 mg tablet RxNorm: 087571 TAKE ONE TABLET BY MOUTH EVERY OTHER DAY 07/12/2017 10/17/2017 Inactive Diovan 320 mg tablet RxNorm: 707397 TAKE ONE TABLET BY MOUTH EVERY DAY 06/09/2017 12/05/2017 Inactive dicyclomine 10 mg capsule RxNorm: 275919 TAKE ONE CAPSULE BY MOUTH THREE TIMES A DAY NEEDED 05/05/2017 08/02/2017 Inactive nystatin 100,000 unit/gram topical powder RxNorm: 793453 1 Application TOP BID 04/29/2017 05/08/2017 Inactive Diovan 320 mg tablet RxNorm: 817606 TAKE ONE TABLET BY MOUTH EVERY DAY 03/10/2017 06/07/2017 Inactive dicyclomine 10 mg capsule RxNorm: 120648 TAKE ONE CAPSULE BY MOUTH THREE TIMES A DAY NEEDED 02/04/2017 05/04/2017 Inactive amlodipine 10 mg tablet RxNorm: 870314 TAKE ONE TABLET BY MOUTH EVERY DAY 02/04/2017 10/31/2017 Inactive Lipitor 10 mg tablet RxNorm: 537603 TAKE ONE TABLET BY MOUTH EVERY OTHER DAY 02/04/2017 07/11/2017 Inactive Fish Oil 1,000 mg capsule RxNorm: 1 Capsule(s) PO TID 01/07/2017 No Stop Date Active metoprolol tartrate 100 mg tablet RxNorm: 841741 1 Tablet(s) PO BID TAKE ONE TABLET BY MOUTH TWICE A DAY 01/07/2017 01/01/2018 Inactive Diovan 320 mg tablet RxNorm: 984470 TAKE ONE TABLET BY MOUTH EVERY DAY 11/05/2016 03/04/2017 Inactive Lipitor 10 mg tablet RxNorm: 369413 1 Tablet(s) PO every other day 09/08/2016 01/05/2017 Inactive dc livalo dicyclomine 10 mg capsule RxNorm: 620647 TAKE ONE CAPSULE BY MOUTH THREE TIMES A DAY NEEDED 07/30/2016 01/25/2017 Inactive Diovan 320 mg tablet RxNorm: 394111 TAKE ONE TABLET BY MOUTH EVERY DAY 06/15/2016 11/04/2016 Inactive Lipitor 10 mg tablet RxNorm: 801491 1 Tablet(s) PO every other day 05/25/2016 05/24/2016 Inactive dc livalo Lipitor 10 mg tablet RxNorm: 748531 1 Tablet(s) PO every other day 05/25/2016 09/07/2016 Inactive dc livalo Livalo 2 mg tablet RxNorm: 441683 1 Tablet(s) PO daily 05/20/2016 05/19/2016 Inactive Livalo 2 mg tablet RxNorm: 149111 1 Tablet(s) PO daily 05/20/2016 05/24/2016 Inactive Celexa 10 mg tablet RxNorm: 534008 1 Tablet(s) PO daily 02/10/2016 11/24/2017 Inactive amlodipine 10 mg tablet RxNorm: 194430 TAKE ONE TABLET BY MOUTH EVERY DAY 02/03/2016 02/02/2016 Inactive amlodipine 10 mg tablet RxNorm: 152786 TAKE ONE TABLET BY MOUTH EVERY DAY 02/03/2016 01/27/2017 Inactive amlodipine 10 mg tablet RxNorm: 046882 TAKE ONE TABLET BY MOUTH EVERY DAY 02/03/2016 04/27/2017 Inactive metoprolol tartrate 100 mg tablet RxNorm: 828689 TAKE ONE TABLET BY MOUTH TWICE A DAY 2016 01/06/2017 Inactive Diovan 320 mg tablet RxNorm: 510343 TAKE ONE TABLET BY MOUTH EVERY DAY 12/19/2015 06/14/2016 Inactive Wellbutrin XL 150 mg 24 hr tablet, extended release RxNorm: 113944 1 Tablet(s) PO daily 12/09/2015 02/09/2016 Inactive tramadol 50 mg tablet RxNorm: 790307 1-2 Tablet(s) PO Q6 PRN 12/09/2015 11/24/2017 Inactive Mobic 7.5 mg tablet RxNorm: 911881 TAKE ONE TABLET BY MOUTH DAILY 11/11/2015 11/24/2017 Inactive dicyclomine 10 mg capsule RxNorm: 916993 TAKE ONE CAPSULE BY MOUTH THREE TIMES A DAY NEEDED 11/11/2015 07/29/2016 Inactive Wellbutrin 75 mg tablet RxNorm: 301677 1 Tablet(s) PO BID 10/28/2015 12/08/2015 Inactive simvastatin 20 mg tablet RxNorm: 719698 TAKE ONE TABLET BY MOUTH EVERY DAY 09/05/2015 2016 Inactive Mobic 7.5 mg tablet RxNorm: 433638 1 Tablet(s) PO daily 08/26/2015 11/10/2015 Inactive estradiol 0.5 mg tablet RxNorm: 354585 TAKE ONE TABLET BY MOUTH EVERY DAY 06/11/2015 03/06/2016 Inactive amlodipine 10 mg tablet RxNorm: 548662 TAKE ONE TABLET BY MOUTH EVERY DAY 04/19/2015 01/13/2016 Inactive dicyclomine 10 mg capsule RxNorm: 349360 TAKE ONE CAPSULE BY MOUTH THREE TIMES A DAY NEEDED 04/19/2015 10/15/2015 Inactive simvastatin 20 mg tablet RxNorm: 781702 TAKE ONE TABLET BY MOUTH EVERY DAY 02/21/2015 08/19/2015 Inactive Diovan 320 mg tablet RxNorm: 805540 TAKE ONE TABLET BY MOUTH EVERY DAY 12/19/2014 12/18/2015 Inactive cephalexin 500 mg capsule RxNorm: 547559 1 Capsule(s) PO TID 11/13/2014 11/19/2014 Inactive prednisone 10 mg tablet RxNorm: 241179 3 Tablet(s) PO daily 11/13/2014 11/17/2014 Inactive prednisone 10 mg tablet RxNorm: 075639 3 Tablet(s) PO daily 11/12/2014 11/12/2014 Inactive Kenalog 40 mg/mL suspension for injection RxNorm: 6775255 Milliliter(s) Inj 11/12/2014 11/12/2014 Inactive cephalexin 500 mg capsule RxNorm: 546206 1 Capsule(s) PO TID 11/12/2014 11/12/2014 Inactive ceftriaxone 500 mg solution for injection RxNorm: 8740862 Inj 11/12/2014 11/12/2014 Inactive dicyclomine 10 mg capsule RxNorm: 784085 TAKE ONE CAPSULE BY MOUTH THREE TIMES A DAY NEEDED 11/08/2014 04/18/2015 Inactive metoprolol tartrate 100 mg tablet RxNorm: 885418 TAKE ONE TABLET BY MOUTH TWICE A DAY 10/18/2014 2015 Inactive metoprolol tartrate 100 mg tablet RxNorm: 276099 1 Tablet(s) PO BID 10/18/2014 10/12/2015 Inactive simvastatin 20 mg tablet RxNorm: 181805 TAKE ONE TABLET BY MOUTH EVERY DAY 08/21/2014 02/16/2015 Inactive Diovan 320 mg tablet RxNorm: 408434 TAKE ONE TABLET BY MOUTH EVERY DAY 08/21/2014 12/18/2014 Inactive Carafate 1 gram tablet RxNorm: 667184 1 Tablet(s) PO AC & HS MIX WITH 30ML WATER 07/23/2014 11/24/2017 Inactive dissolve in water and drink as slurry dicyclomine 10 mg capsule RxNorm: 644535 1 Capsule(s) PO TID PRN 07/23/2014 10/20/2014 Inactive simvastatin 20 mg tablet RxNorm: 141620 TAKE ONE TABLET BY MOUTH EVERY DAY 06/07/2014 08/20/2014 Inactive estradiol 0.5 mg tablet RxNorm: 491541 TAKE ONE TABLET BY MOUTH EVERY DAY 05/16/2014 05/10/2015 Inactive amlodipine 10 mg tablet RxNorm: 698243 TAKE ONE TABLET BY MOUTH EVERY DAY 05/16/2014 04/18/2015 Inactive Diovan 320 mg tablet RxNorm: 992300 TAKE ONE TABLET BY MOUTH EVERY DAY 03/26/2014 08/20/2014 Inactive Diflucan 150 mg tablet RxNorm: 239758 1 Tablet(s) PO daily 03/21/2014 03/27/2014 Inactive simvastatin 20 mg tablet RxNorm: 296055 TAKE ONE TABLET BY MOUTH EVERY DAY 03/02/2014 05/30/2014 Inactive estradiol 0.5 mg tablet RxNorm: 179296 TAKE ONE TABLET BY MOUTH EVERY DAY 02/16/2014 05/15/2014 Inactive amlodipine 10 mg tablet RxNorm: 594080 TAKE ONE TABLET BY MOUTH EVERY DAY 02/16/2014 05/15/2014 Inactive pantoprazole 40 mg tablet,delayed release RxNorm: 594937 2 Tablet(s) PO daily 01/25/2014 02/23/2014 Inactive simvastatin 20 mg tablet RxNorm: 577213 Tablet(s) PO TAKE ONE TABLET BY MOUTH EVERY DAY 11/30/2013 03/01/2014 Inactive amlodipine 10 mg tablet RxNorm: 843154 Tablet(s) PO TAKE ONE TABLET BY MOUTH EVERY DAY 11/16/2013 02/15/2014 Inactive metoprolol tartrate 100 mg tablet RxNorm: 694328 1 Tablet(s) PO BID 10/23/2013 10/17/2014 Inactive Diovan 320 mg tablet RxNorm: 333849 Tablet(s) PO TAKE ONE TABLET BY MOUTH EVERY DAY 09/28/2013 03/25/2014 Inactive Carafate 1 gram tablet RxNorm: 171507 1 Tablet(s) PO TID MIX WITH 30ML WATER 09/20/2013 12/18/2013 Inactive estradiol 0.5 mg tablet RxNorm: 871274 1 Tablet(s) PO daily 08/21/2013 02/15/2014 Inactive amlodipine 10 mg tablet RxNorm: 197633 1 Tablet(s) PO daily 08/21/2013 11/15/2013 Inactive simvastatin 20 mg tablet RxNorm: 899131 1 Tablet(s) PO daily 08/21/2013 11/18/2013 Inactive Diovan 320 mg tablet RxNorm: 139711 1 Tablet(s) PO daily 08/21/2013 09/19/2013 Inactive Carafate 1 gram tablet RxNorm: 419009 1 Tablet(s) PO TID MIX WITH 30ML WATER 08/21/2013 09/19/2013 Inactive Diovan 320 mg tablet RxNorm: 581693 1 Tablet(s) PO daily 07/20/2013 08/18/2013 Inactive amlodipine 10 mg tablet RxNorm: 857242 1 Tablet(s) PO daily 07/20/2013 08/18/2013 Inactive estradiol 0.5 mg tablet RxNorm: 274912 1 Tablet(s) PO daily 07/20/2013 08/18/2013 Inactive metoprolol tartrate 100 mg tablet RxNorm: 727152 1 Tablet(s) PO BID 06/22/2013 10/22/2013 Inactive Wellbutrin XL 150 mg 24 hr tablet, extended release RxNorm: 971477 1 Tablet(s) PO daily 06/22/2013 07/19/2013 Inactive pantoprazole 40 mg tablet,delayed release RxNorm: 474765 1 Tablet(s) PO daily No Start Date Active calcium 500 mg tablet RxNorm: 2 Tablet(s) PO BID No Start Date Active glucosamine and ssimpiwykef-eqycrgbt-sxoa#3 oral RxNorm: 2837 oral No Start Date Active multivitamin tablet RxNorm: 1 Tablet(s) PO daily No Start Date Active aspirin 81 mg tablet RxNorm: 368118 1 Tablet(s) PO daily No Start Date Active Probiotic oral RxNorm: oral No Start Date Active Vitamin D3 1,000 unit capsule RxNorm: 459748 1 Capsule(s) PO daily No Start Date Active Eliquis 5 mg tablet RxNorm: 3218099 1 Tablet(s) PO BID No Start Date Active simvastatin 20 mg tablet RxNorm: 879825 1 Tablet(s) PO daily No Start Date 08/20/2013 Inactive hyoscyamine 0.125 mg sublingual tablet RxNorm: 0309836 1 Tablet(s) SL TID No Start Date 07/22/2014 Inactive metoprolol tartrate 100 mg tablet RxNorm: 801571 1 Tablet(s) PO daily No Start Date 06/21/2013 Inactive amlodipine 10 mg tablet RxNorm: 279721 1 Tablet(s) PO daily No Start Date 07/19/2013 Inactive Diovan 320 mg tablet RxNorm: 281488 1 Tablet(s) PO daily No Start Date 07/19/2013 Inactive Fish Oil 1,000 mg capsule RxNorm: 1 Capsule(s) PO BID No Start Date 01/06/2017 Inactive omeprazole 20 mg tablet,delayed release RxNorm: 764539 1 Tablet(s) PO daily No Start Date 01/25/2014 Inactive estradiol 0.5 mg tablet RxNorm: 386003 1 Tablet(s) PO daily No Start Date 07/19/2013 Inactive Medication Administered Medication Codes Instructions Start Date Status ceftriaxone 500 mg solution for injection RxNorm: 1517309 11/12/2014 No longer Active Kenalog 40 mg/mL suspension for injection RxNorm: 9089204 Milliliter 11/12/2014 No longer Active Immunizations Vaccine [...] Lipid Ord30 C/HDL 3.5 Ratio 11/25/2017 %Hba1C Adh512 % HbA1c 51568- 6 5.7 % 11/25/2017 %Hba1C Xjq089 Gluc Ave 117 mg/dL 11/25/2017 Tsh Ord6 TSH (3rd IS) 1.06 uIU/mL 11/25/2017 Comp Metabolic Dit540 NA 141 mEq/L 11/25/2017 Comp Metabolic Esq496 K 4.2 mEq/L 11/25/2017 Comp Metabolic Roe223 CL 103 mEq/L 11/25/2017 Comp Metabolic Shy797 CO2 31.0 mEq/L 11/25/2017 Comp Metabolic Utu186 ANION GAP 11 11/25/2017 Comp Metabolic Pjb773 GLUCOSE 117 mg/dL 11/25/2017 Comp Metabolic Bdr188 Creat 0.8 mg/dL 11/25/2017 Comp Metabolic Cns910 eGFR 74 ml/min/1.73m2 11/25/2017 Comp Metabolic Uhx895 BUN 18 mg/dL 11/25/2017 Comp Metabolic Guz785 B/C Ratio 22.2 Ratio 11/25/2017 Comp Metabolic Aur733 CALCIUM 9.4 mg/dL 11/25/2017 Comp Metabolic Bqx690 ALK PHOS 62 U/L 11/25/2017 Comp Metabolic Fmm685 AST(SGOT) 21 U/L 11/25/2017 Comp Metabolic Qao474 ALT(SGPT) 18 U/L 11/25/2017 Comp Metabolic Bad181 BILI T 0.4 mg/dL 11/25/2017 Comp Metabolic Jhq033 ALBUMIN 4.0 g/dL 11/25/2017 Comp Metabolic Frd523 TPRO 6.1 g/dL 11/25/2017 Comp Metabolic Xvf777 GLOB 2.1 g/dL 11/25/2017 Comp Metabolic Pst728 A/G Ratio 1.9 Ratio 11/25/2017 Comp Metabolic Tlm843 Osmo 284 mOsmo 11/25/2017 Cbc With Differential [...] 31.1 pg 11/25/2017 Cbc With Differential Ord2 [place]% 11.2 % 11/25/2017 Cbc With Differential Ord2 [...] 2.03 K/ul 11/25/2017 Cbc With Differential Ord2 [place] ABS# 0.6 K/ul 11/25/2017 Cbc With Differential [...] 38.1 % 05/11/2016 Cbc With Differential Ord2 [place]% 9.5 % 05/11/2016 Cbc With Differential Ord2 [...] 1.76 K/ul 05/11/2016 Cbc With Differential Ord2 [place] ABS# 0.4 K/ul 05/11/2016 Cbc With Differential Ord2 Eos ABS# 0.1 K/ul 05/11/2016 Cbc With Differential Ord2 Baso ABS# 0.0 K/ul 05/11/2016 Comp Metabolic Ilc205 NA 139 mEq/L 05/11/2016 Comp Metabolic Emb940 K 4.6 mEq/L 05/11/2016 Comp Metabolic Lxb191 CL 104 mEq/L 05/11/2016 Comp Metabolic Khe040 CO2 30.0 mEq/L 05/11/2016 Comp Metabolic Jna037 ANION GAP 10 05/11/2016 Comp Metabolic Utx673 GLUCOSE 113 mg/dL 05/11/2016 Comp Metabolic Vcg302 Creat 0.8 mg/dL 05/11/2016 Comp Metabolic Mvp599 eGFR 74 ml/min/1.73m2 05/11/2016 Comp Metabolic Pig717 BUN 16 mg/dL 05/11/2016 Comp Metabolic Abh752 B/C Ratio 19.8 Ratio 05/11/2016 Comp Metabolic Tkj502 CALCIUM 10.1 mg/dL 05/11/2016 Comp Metabolic Bno012 ALK PHOS 44 U/L 05/11/2016 Comp Metabolic Iqm285 AST(SGOT) 20 U/L 05/11/2016 Comp Metabolic Nvy774 ALT(SGPT) 17 U/L 05/11/2016 Comp Metabolic Jwm539 BILI T 0.4 mg/dL 05/11/2016 Comp Metabolic Nrh765 ALBUMIN 4.1 g/dL 05/11/2016 Comp Metabolic Ohz174 TPRO 6.5 g/dL 05/11/2016 Comp Metabolic Ovr211 GLOB 2.4 g/dL 05/11/2016 Comp Metabolic Gay086 A/G Ratio 1.8 Ratio 05/11/2016 Comp Metabolic Wvj019 Osmo 280 mOsmo 05/11/2016 Tsh Ord6 hTSH II 0.96 uIU/mL 05/11/2016 Lipid Ord30 CHOL 283 mg/dL 05/11/2016 Lipid Ord30 HDL 53.0 mg/dl 05/11/2016 Lipid Ord30 TRIG 144 mg/dL 05/11/2016 Lipid Ord30 LDL 201 mg/dL 05/11/2016 Lipid Ord30 C/HDL 5.3 Ratio 05/11/2016 C-Reactive Protein Qnt Crqnt CRP 0.5 mg/dl 12/18/2015 Vitamin D 25 Oh Khv9881 VITAMIN D, 25 HYDROXY 84.50 ng/mL 12/18/2015 Comp Metabolic Iss777 NA 139 mEq/L 12/18/2015 Comp Metabolic Ivd797 K 3.8 mEq/L 12/18/2015 Comp Metabolic Pzp975 CL 103 mEq/L 12/18/2015 Comp Metabolic Xll352 CO2 31.0 mEq/L 12/18/2015 Comp Metabolic Hdd221 ANION GAP 9 12/18/2015 Comp Metabolic Sqh192 GLUCOSE 107 mg/dL 12/18/2015 Comp Metabolic Txt433 Creat 0.8 mg/dL 12/18/2015 Comp Metabolic Mok628 eGFR 80 ml/min/1.73m2 12/18/2015 Comp Metabolic Myf948 BUN 19 mg/dL 12/18/2015 Comp Metabolic Wpj642 B/C Ratio 25.0 Ratio 12/18/2015 Comp Metabolic Xiw485 CALCIUM 9.1 mg/dL 12/18/2015 Comp Metabolic Csa142 ALK PHOS 42 U/L 12/18/2015 Comp Metabolic Wjn887 AST(SGOT) 17 U/L 12/18/2015 Comp Metabolic Unl903 ALT(SGPT) 18 U/L 12/18/2015 Comp Metabolic Jsb668 BILI T 0.3 mg/dL 12/18/2015 Comp Metabolic Amv762 ALBUMIN 3.8 g/dL 12/18/2015 Comp Metabolic Ppz171 TPRO 5.9 g/dL 12/18/2015 Comp Metabolic Ccp786 GLOB 2.1 g/dL 12/18/2015 Comp Metabolic Sau765 A/G Ratio 1.8 Ratio 12/18/2015 Comp Metabolic Veg286 Osmo 280 mOsmo 12/18/2015 Sed Rate Ord21 [...] 97.6 fl 12/18/2015 Cbc With Differential Ord2 [place]% 9.3 % 12/18/2015 Cbc With Differential Ord2 [...] 1.45 K/ul 12/18/2015 Cbc With Differential Ord2 [place] ABS# 0.5 K/ul 12/18/2015 Cbc With Differential [...] 31.6 pg 09/02/2015 Cbc With Differential Ord2 [place]% 8.8 % 09/02/2015 Cbc With Differential Ord2 [...] 1.53 K/ul 09/02/2015 Cbc With Differential Ord2 [place] ABS# 0.5 K/ul 09/02/2015 Cbc With Differential Ord2 Eos ABS# 0.1 K/ul 09/02/2015 Cbc With Differential Ord2 Baso ABS# 0.0 K/ul 09/02/2015 Cbc With Differential Ord2 New Analyzer Notice Please note new ref ranges starting 08-14-2015 due to implemntation of new five part differential hematolgy analyzer. 09/02/2015 Tsh Ord6 hTSH II 1.41 uIU/mL 09/02/2015 Comp Metabolic Wag541 NA 136 mEq/L 09/02/2015 Comp Metabolic Wju379 K 4.5 mEq/L 09/02/2015 Comp Metabolic Gbz108 CL 103 mEq/L 09/02/2015 Comp Metabolic Hgq559 CO2 27.0 mEq/L 09/02/2015 Comp Metabolic Lvr121 ANION GAP 11 09/02/2015 Comp Metabolic Xsk840 GLUCOSE 109 mg/dL 09/02/2015 Comp Metabolic Cku245 Creat 1.0 mg/dL 09/02/2015 Comp Metabolic Xuq686 eGFR 62 ml/min/1.73m2 09/02/2015 Comp Metabolic Fwo442 BUN 21 mg/dL 09/02/2015 Comp Metabolic Lvl318 B/C Ratio 22.1 Ratio 09/02/2015 Comp Metabolic Sfv771 CALCIUM 9.3 mg/dL 09/02/2015 Comp Metabolic Qay825 ALK PHOS 37 U/L 09/02/2015 Comp Metabolic Byr180 AST(SGOT) 19 U/L 09/02/2015 Comp Metabolic Bcb623 ALT(SGPT) 16 U/L 09/02/2015 Comp Metabolic Xul327 BILI T 0.4 mg/dL 09/02/2015 Comp Metabolic Ots428 ALBUMIN 4.1 g/dL 09/02/2015 Comp Metabolic Sak530 TPRO 6.3 g/dL 09/02/2015 Comp Metabolic Qzx939 GLOB 2.2 g/dL 09/02/2015 Comp Metabolic Kcv381 A/G Ratio 1.8 Ratio 09/02/2015 Comp Metabolic Gcc909 Osmo 276 mOsmo 09/02/2015 A1C HPLC 8948326 A1C HPLC 39477-0 5.6 % 07/23/2014 VIT D TOTL 5274587 VIT D TOTL 52 NG/ML 07/20/2013 GFR CALC 4272536 GFR AA >60 ML/MIN 07/20/2013 GFR CALC 4908198 GFR NON-AA >60 ML/MIN 07/20/2013 CBC 5310239 WBC 5.9 10e9/L 07/20/2013 CBC 2028838 RBC 4.79 10e12/L 07/20/2013 CBC 0510607 HGB 15.5 g/dL 07/20/2013 CBC 5426209 HCT DET 46.1 % 07/20/2013 CBC 4959930 MCV 96.2 fL 07/20/2013 CBC 1064176 MCH 32.4 pg 07/20/2013 CBC 1720067 MCHC 33.6 g/dL 07/20/2013 CBC 0883238 PLT 286 10e9/L 07/20/2013 CBC 3030705 MPV 10.8 fL 07/20/2013 CBC 9126257 ERINN % 66.1 % 07/20/2013 CBC 6937756 LY % 24.3 % 07/20/2013 CBC 0223411 MON % 8.1 % 07/20/2013 CBC 4757663 EOS % 1.2 % 07/20/2013 CBC 9604775 BASO % 0.3 % 07/20/2013 CBC 1959991 RDW 12.7 % 07/20/2013 CBC 6846394 ABS ERINN 3.90 10e9/L 07/20/2013 CBC 4515941 ABS LYMPH 1.43 10e9/L 07/20/2013 CBC 6197627 ABS MONO 0.48 10e9/L 07/20/2013 CBC 4590209 ABS EOS 0.07 10e9/L 07/20/2013 CBC 2530453 ABS BASO 0.02 10e9/L 07/20/2013 CBC 4671375 RDW-SD 44.1 fL 07/20/2013 A1C HPLC 8361586 A1C HPLC 67237-8 5.9 % 07/20/2013 LIPID GRP HDL TEST 54 MG/DL 07/20/2013 LIPID GRP TRIG 98 MG/DL 07/20/2013 LIPID GRP TEST LDL 95 MG/DL 07/20/2013 LIPID GRP CHOL 169 MG/DL 07/20/2013 LIPID GRP RCHOL/HDL 3.13 RATIO 07/20/2013 TSH 3026017 TSH 1.032 uIU/ML 07/20/2013 CHEM 14 5232159 AST 18 U/L 07/20/2013 CHEM 14 1972319 ALT 13 IU/L 07/20/2013 CHEM 14 8928000 BUN 19 MG/DL 07/20/2013 CHEM 14 5186734 ALBUMIN 4.5 GM/DL 07/20/2013 CHEM 14 9418952 CHLORIDE 105 MMOL/L 07/20/2013 CHEM 14 2080573 BILI TOT 0.5 MG/DL 07/20/2013 CHEM 14 8270385 ALK PHOS 40 U/L 07/20/2013 CHEM 14 6536601 SODIUM 137 MMOL/L 07/20/2013 CHEM 14 1742445 CREATININE 0.76 MG/DL 07/20/2013 CHEM 14 2117283 CALCIUM 10.0 MG/DL 07/20/2013 CHEM 14 6110630 POTASSIUM 4.6 MMOL/L 07/20/2013 CHEM 14 3348801 PROT TOT 6.5 GM/DL 07/20/2013 CHEM 14 8704031 GLUCOSE 118 MG/DL 07/20/2013 CHEM 14 1076146 BICARB 26 MMOL/L 07/20/2013 CHEM 14 5788486 ANION GAP 6 MEQ/L 07/20/2013 VIT B 12 2638430 VIT B 12 492 PG/ML 07/20/2013 Review [...] 1995 Constitutional general appearance Overall: well developed 12/03/2017 [...] SUBSEQ VISIT CPT- 4: G0439 12/03/2017 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 3-[address]: 441026345 CPT-4: G0436 09/08/2016 ADMIN INFLUENZA VIRUS VAC CPT-4: G0008 05/11/2016 PNEUMOCOCCAL VACC 13 SAULO IM Formatting Model/CDA Sections, Assigned to/Rafia Cuadra SNOMED CT: 75424967 CPT-4: 49607Jymbdid 05/11/2016 ADMIN PNEUMOCOCCAL VACCINE SNOMED CT: 32659728 CPT-4: G0009 05/11/2016 FLU VACC 4 SAULO 3 YRS PLUS IM Formatting Model/CDA Sections, Assigned to/Rafia Cuadra SNOMED CT: 80815589 CPT-4: 62875Ooyvikj 05/11/2016 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 3-[address]: 363746366 CPT-4: G0436 02/10/2016 TRIAMCINOLONE ACET INJ NOS CPT-4: J3301 12/16/2015 DRAIN/INJECT JOINT/BURSA CPT-4: 59477 12/16/2015 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 3-[address]: 062243530 CPT-4: G0436 12/09/2015 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 3-[address]: 423789874 CPT-4: G0436 10/28/2015 THER/PROPH/DIAG INJ SC/IM CPT-4: 39287 11/12/2014 TRIAMCINOLONE ACET INJ NOS CPT-4: J3301 11/12/2014 ROCEPHIN, PER 250 MG CPT- 4: J0696 11/12/2014 ROUTINE VENIPUNCTURE CPT- 4: 69293 07/23/2014 URINALYSIS NONAUTO W/O SCOPE CPT-4: 27275 03/21/2014 ROUTINE VENIPUNCTURE CPT- 4: 50360 07/20/2013 PRESCRIP TRANSMIT VIA ERX SY CPT-4: G8553 07/20/2013 PRESCRIP TRANSMIT VIA ERX SY CPT-4: G8553 06/22/2013 PARTIAL REMOVAL OF LUNG CPT-4: 98273 Unknown Vital Signs Date Vital 12/03/2017 Blood Pressure 1: 142/86 Code: 8480-6 BMI: 29.5 Code: 57522-4 Heart Rate 1: 74 bpm Height: 5'5" SpO2: 93% Weight: 177 lbs 11/25/2017 Blood Pressure 1: 142/84 Code: 8480-6 BMI: 29.5 Code: 43585-9 Heart Rate 1: 69 bpm Height: 5'5" SpO2: 99% Weight: 177 lbs 07/09/2017 Blood Pressure 1: 142/68 Code: 8480-6 BMI: 28.3 Code: 07461-2 Heart Rate 1: 48 bpm Height: 5'5" SpO2: 97% Weight: 170 lbs 04/29/2017 Blood Pressure 1: 148/86 Code: 8480-6 BMI: 28.6 Code: 96960-3 Heart Rate 1: 71 bpm Height: 5'5" SpO2: 95% Weight: 172 lbs 01/07/2017 Blood Pressure 1: 140/70 Code: 8480-6 BMI: 28.8 Code: 20934-8 Heart Rate 1: 68 bpm Height: 5'5" SpO2: 96% Weight: 173 lbs 09/08/2016 Blood Pressure 1: 134/70 Code: 8480-6 BMI: 29.1 Code: 39628-2 Heart Rate 1: 68 bpm Height: 5'5" SpO2: 99% Weight: 175 lbs 05/11/2016 Blood Pressure 1: 138/88 Code: 8480-6 BMI: 29.2 Code: 52578-5 Heart Rate 1: 67 bpm Height: 5'6" SpO2: 95% Weight: 178 lbs 02/10/2016 Blood Pressure 1: 148/82 Code: 8480-6 BMI: 28.8 Code: 54578-4 Heart Rate 1: 63 bpm Height: 5'6" SpO2: 97% Weight: 176 lbs 12/18/2015 Blood Pressure 1: 130/78 Code: 8480-6 BMI: 28.8 Code: 47134-6 Heart Rate 1: 66 bpm Height: 5'6" SpO2: 98% Weight: 176 lbs 12/16/2015 Blood Pressure 1: 162/100 Code: 8480-6 BMI: 28.8 Code: 80260-2 Heart Rate 1: 65 bpm Height: 5'6" SpO2: 98% Weight: 176 lbs 12/09/2015 Blood Pressure 1: 142/70 Code: 8480-6 BMI: 28.4 Code: 53223-1 Heart Rate 1: 65 bpm Height: 5'6" SpO2: 96% Weight: 173 lbs 10/28/2015 Blood Pressure 1: 160/82 Code: 8480-6 Blood Pressure 1: 140/86 Code: 8480-6 BMI: 28.5 Code: 62213-2 Heart Rate 1: 60 bpm Height: 5'6" SpO2: 96% Weight: 174 lbs 08/26/2015 Blood Pressure 1: 158/80 Code: 8480-6 Blood Pressure 1: 148/88 Code: 8480-6 BMI: 28.0 Code: 61496-0 Heart Rate 1: 68 bpm Height: 5'6" SpO2: 98% Weight: 171 lbs 02/12/2015 Blood Pressure 1: 136/74 Code: 8480-6 BMI: 25.9 Code: 14729-1 Heart Rate 1: 61 bpm Height: 5'6" SpO2: 97% Weight: 158 lbs 11/12/2014 Blood Pressure 1: 140/82 Code: 8480-6 BMI: 25.9 Code: 81089-2 Heart Rate 1: 64 bpm Height: 5'6" SpO2: 97% Weight: 158 lbs 07/23/2014 Blood Pressure 1: 138/88 Code: 8480-6 BMI: 25.6 Code: 81420-0 Heart Rate 1: 57 bpm Height: 5'6" SpO2: 95% Weight: 156 lbs 03/21/2014 Blood Pressure 1: 124/64 Code: 8480-6 Heart Rate 1: 64 bpm Weight: 147 lbs 01/25/2014 Blood Pressure 1: 130/70 Code: 8480-6 BMI: 24.4 Code: 72212-9 Height: 5'6" Weight: 149 lbs 10/23/2013 Blood Pressure 1: 152/82 Code: 8480-6 BMI: 25.7 Code: 26868-8 Heart Rate 1: 60 bpm Height: 5'6" Weight: 157 lbs 08/21/2013 Blood Pressure 1: 142/90 Code: 8480-6 BMI: 25.9 Code: 83809-5 Heart Rate 1: 56 bpm Height: 5'6" Weight: 158 lbs 07/20/2013 Blood Pressure 1: 164/80 Code: 8480-6 BMI: 26.2 Code: 79515-3 Heart Rate 1: 60 bpm Height: 5'6" SpO2: 98% Weight: 160 lbs 06/22/2013 Blood Pressure 1: 140/84 Code: 8480-6 BMI: 28.2 Code: 47865-7 Heart Rate 1: 60 bpm Height: 5'6" [...] data Encounters Encounter Performer Location Codes Date [id number]) [id number] EST. PATIENT, LEVEL IV Diagnosis: Essential (primary) hypertension[ICD10: I10] Diagnosis: Mixed hyperlipidemia[ICD10: E78.2] Diagnosis: Malignant neoplasm of upper lobe, left bronchus or lung[ICD10: C34.12] Diagnosis: Impaired fasting glucose[ICD10: R73.01] Diagnosis: Cervicalgia[ICD10: M54.2] Diagnosis: Low back pain[ICD10: M54.5] Marily Gonzalez MD, [facility] CPT-4: 71565 11/25/2017 ([id number]) [id number] EST. PATIENT, LEVEL III Diagnosis: Essential (primary) hypertension[ICD10: I10] Marily Gonzalez MD, [facility] CPT-4: 68237 07/09/2017 ([id number]) [id number] EST. PATIENT, LEVEL III Diagnosis: Gas pain[ICD10: R14.1] Diagnosis: Rash and other nonspecific skin eruption[ICD10: R21] Marily Gonzalez MD, [facility] CPT-4: 60024 04/29/2017 ([id number]) 36362 EST. PATIENT, LEVEL III Diagnosis: Essential (primary) hypertension[ICD10: I10] Diagnosis: Malignant neoplasm of upper lobe, left bronchus or lung[ICD10: C34.12] Diagnosis: Chronic obstructive pulmonary disease, unspecified[ICD10: J44.9] Marily Gonzalez MD, [facility] CPT-4: 89214 01/07/2017 ([id number]) 03785 EST. PATIENT, LEVEL IV Diagnosis: Essential (primary) hypertension[ICD10: I10] Diagnosis: Mixed hyperlipidemia[ICD10: E78.2] Diagnosis: Tobacco use[ICD10: Z72.0] Diagnosis: Malignant neoplasm of upper lobe, left bronchus or lung[ICD10: C34.12] Marily Gonzalez MD, [facility] CPT-4: 61195 09/08/2016 ([id number]) 71199 EST. 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 CPT-4: 29997 05/11/2016 ([id number]) 57776 EST. PATIENT, LEVEL IV Diagnosis: Essential (primary) hypertension[ICD10: I10] Diagnosis: Generalized anxiety disorder[ICD10: F41.1] Diagnosis: Tobacco use[ICD10: Z72.0] Marily Gonzalez MD, [facility] CPT-4: 79725 02/10/2016 11167 EST. PATIENT, LEVEL IV Diagnosis: Myalgia[ICD10: M79.1] Diagnosis: Low back pain[ICD10: M54.5] Joy Gonzalez MD, [facility] CPT-4: 18840 12/18/2015 74805 EST. PATIENT, LEVEL IV Diagnosis: Low back pain[ICD10: M54.5] Diagnosis: Pain in right hip[ICD10: M25.551] Joy Gonzalez MD, [facility] CPT-4: 60457 12/16/2015 ([id number]) 56639 EST. PATIENT, LEVEL IV Diagnosis: Low back pain[ICD10: M54.5] Diagnosis: Malignant neoplasm of upper lobe, left bronchus or lung[ICD10: C34.12] Diagnosis: Tobacco use[ICD10: Z72.0] Diagnosis: Essential (primary) hypertension[ICD10: I10] Diagnosis: Generalized anxiety disorder[ICD10: F41.1] Marily Gonzalez MD, [facility] CPT-4: 28866 12/09/2015 ([id number]) 16915 EST. PATIENT, LEVEL IV Diagnosis: Essential (primary) hypertension[ICD10: I10] Diagnosis: Tobacco use[ICD10: Z72.0] Diagnosis: Solitary pulmonary nodule[ICD10: R91.1] Marily Gonzalez MD, [facility] CPT-4: 51311 10/28/2015 ([id number]) 45689 EST. PATIENT, LEVEL IV Diagnosis: Essential (primary) hypertension[ICD10: I10] Diagnosis: Bilateral primary osteoarthritis of hip[ICD10: M16.0] Diagnosis: Solitary pulmonary nodule[ICD10: R91.1] Marily Gonzalez MD [facility] CPT-4: 66430 08/26/2015 ([id number]) 38441 EST. PATIENT, LEVEL IV Diagnosis: ESSENTIAL HYPERTENSION[ICD9: 401.9] Diagnosis: Pulmonary nodule[ICD9: 793.11] Teresa Gonzalez MD [facility] CPT-4: 50045 02/12/2015 ([id number]) 71121 EST. PATIENT, LEVEL III Diagnosis: ACUTE BRONCHITIS[ICD9: 466.0] Diagnosis: ALLERGIC RHINITIS[ICD9: 477.9] Teresa Gonzalez MD [facility] CPT-4: 28287 11/12/2014 ([id number]) 07209 EST. PATIENT, LEVEL IV Diagnosis: ESOPHAGEAL REFLUX[ICD9: 530.81] Diagnosis: ESSENTIAL HYPERTENSION[ICD9: 401.9] Diagnosis: Elevated blood sugar[ICD9: 790.29] Marily Gonzalez MD, [facility] CPT- 4: 00384 07/23/2014 ([id number]) 37010 EST. PATIENT, LEVEL III Diagnosis: Vaginal yeast infection[ICD9: 112.1] Diagnosis: Vaginal burning[ICD9: 625.8] Diagnosis: History of UTI[ICD9: V13.02] Diagnosis: Dysuria[ICD9: 788.1] Marily Gonzalez MD [facility] CPT-4: 07206 03/21/2014 ([id number]) 28130 EST. PATIENT, LEVEL III Diagnosis: ESSENTIAL HYPERTENSION[ICD9: 401.9] Marily Gonzalez MD [facility] CPT-4: 19791 01/25/2014 ([id number]) 20983 EST. PATIENT, LEVEL III Diagnosis: ESSENTIAL HYPERTENSION[SNOMED: 82346939] Diagnosis: ESOPHAGEAL REFLUX[ICD9: 530.81] Teresa Gonzalez MD [facility] CPT-4: 51028 10/23/2013 ([id number]) 09748 EST. PATIENT, LEVEL IV Diagnosis: ESOPHAGEAL REFLUX[ICD9: 530.81] Diagnosis: ESSENTIAL HYPERTENSION[SNOMED: 12210393] Diagnosis: Rash[ICD9: 782.1] [facility] CPT-4: 15004 08/21/2013 ([id number]) 21561 EST. PATIENT, LEVEL IV Diagnosis: Muscle ache of extremity[ICD9: 729.1] Diagnosis: Tingling in extremities[ICD9: 782.0] Diagnosis: ESSENTIAL HYPERTENSION[SNOMED: 66762750] Diagnosis: GERD (gastroesophageal reflux disease)[ICD9: 530.81] Diagnosis: Elevated blood sugar[ICD9: 790.29] Marily Gonzalez MD, [facility] CPT- 4: 22335 07/20/2013 OFFICE VISIT, NEW - LEVEL 3 Diagnosis: ESSENTIAL HYPERTENSION[SNOMED: 20853848] Diagnosis: Tobacco use[ICD9: 305.1] Diagnosis: Depression[ICD9: 311] Marily Gonzalez MD, [facility] CPT-4: 43548 06/22/2013 ([id number]) BEHAV CHNG SMOKING 3-10 MIN Diagnosis: [ICD9: ] Marily Gonzalez MD, [facility] CPT-4: 28645 06/22/2013 Plan of Care Planned Activity Notes [...] vs PT 11/25/2017 Appointment: Marily Valerio WPtel: [address] [place], [place] [phone] (15 min) Moderate 11/25/2017 Patient Education: Patient Medication Summary Completed 11/25/2017 Care Plan: X-RAY EXAM L-S SPINE 2/3 VWS LOINC : 87704-9 Pending 11/25/2017 Care Plan: X-RAY EXAM NECK SPINE 2-3 VW LOINC : 60974-2 Pending 11/25/2017 Appointment: Marily Valerio WPtel: [address] [place], [place] [phone] (15 min) Moderate 11/02/2017 Visit Plan: Hypertension [...] Dr Ryan 07/09/2017 Appointment: Marily Valerio WPtel: [phone] (15 min) Moderate 07/09/2017 Patient Education: Patient Medication Summary Completed 07/09/2017 Patient Education: Smoking and Tobacco Addiction Completed 07/09/2017 Appointment: Marily Valerio WPtel: [address] [place] [address] (15 min) Moderate 07/08/2017 Visit Plan: Gas and bloating-cut out dairy x 2 weeks-increase gas x to TID-call if symptoms uncontrolled Rash-rx for nystatin powder provided-keep clean/dry-call if does not resolve or if any worse 04/29/2017 Appointment: Marily Valerio WPtel: [address] [place], [place] [phone] [place] [address] (15 min) Moderate 04/29/2017 Patient Education: Patient [...] nicotine patches 01/07/2017 Appointment: Marily Valerio WPtel: [address] [place], [place] [phone] (15 min) Moderate 01/07/2017 Patient Education: Patient Medication Summary Completed 01/07/2017 Patient Education: Smoking and Tobacco Addiction Completed 01/07/2017 Patient Education: Hypertension Completed 01/07/2017 Appointment: Marily Valerio WPtel: [address] [place], [place] [phone] (30 min) Complex 01/05/2017 Visit Plan: Hypertension [...] in 09/08/2016 Appointment: Marily Valerio WPtel: [phone] [phone] (15 min) Moderate 09/08/2016 Patient Education: [...] density 05/11/2016 Appointment: Marily Valerio WPtel: [phone] [phone] (15 min) Moderate 05/11/2016 Patient Education: [...] Care Plan: [facility] 36659-3 Cancelled 01/17/2016 Visit Plan: Continued Low back [...] worsen. 12/18/2015 Appointment: Marily Valerio WPtel: [address] [place], [place] [phone] (30 min) [facility] 12/18/2015 Patient Education: Patient Medication Summary Completed [...] they worsen. 12/16/2015 Appointment: [facility] Flores [facility]el[facility] (15 min) Moderate 12/16/2015 Patient Education: [...] left upper lobe removed at [facility] this week to schedule Tobacco use-no cigarettes [...] blood pressure readings at home. Arthritis of ujkx-iuei-pgxak mobic-monitor symptoms-check labs Left lung nodule- most recent scan shows slight increase in size and needs further evaluation- managed by Dr Corea-appt is this week 08/26/2015 Appointment: [facility] Val[facility]io [facility]Ptel[facility] [phone] [phone] [place] (30 min) Complex 08/26/2015 Patient Education: Patient Medication Summary Completed 08/26/2015 Patient Education: Hypertension Completed 08/26/2015 Appointment: Teresa Gonzalez WPtel[facility] [place] (15 min) Moderate 08/15/2015 Appointment: [facility] [phone] [facility] (15 min) Moderate 08/15/2015 Visit Plan: Hypertension [...] scan. 02/12/2015 Appointment: [facility] [phone] [facility] Follow up 02/12/2015 Patient Education: Patient Medication [...] bloating-use dicyclomine prn Elevated blood sugar-check Hgb C9Q-qst back on sweets/carbs 07/23/2014 Appointment: Follow up [...] home. 01/25/2014 Appointment: [facility] Val[facility]io [facility]Ptel[facility] [phone] [phone] Follow up 01/25/2014 Patient Education: Patient Medication [...] by Dr. Mckeon. 10/23/2013 Appointment: LisaTeresa [facility]Ptel[facility] [phone] [facility] Follow up 10/23/2013 Patient Education: Patient Medication [...] 08/21/2013 Appointment: [facility] Val[facility]io [facility]Ptel[facility] [phone] [phone] Follow up 08/21/2013 Patient Education: Patient Medication [...] with Dr Combs as scheduled Tingling of rrwdvwmxgvl-mxayqduq-onkbs labs including vitamin b12 and vitamin d Elevated blood sugar-check hgb a1c 07/20/2013 Appointment: Marily Valerio WPtel: [phone] Follow up 07/20/2013 Patient Education: Patient [...] date. 06/22/2013 Appointment: Marily Valerio WPtel[facility] [phone] [phone] New Patient 06/22/2013 Patient Education: Patient [...] not resolve or if any worse. 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 Hypertension [...] with Dr Combs as scheduled Tingling of graoyezbqwr-zzkkcyhq-wbzuo labs including vitamin b12 and vitamin d [...] to have left upper lobe removed at [facility] this week to schedule Tobacco use-no cigarettes [...] blood pressure readings at home. Arthritis of khtj-jnnh-blbih mobic-monitor symptoms-check labs Left lung nodule-most recent [...] bloating-use dicyclomine prn Elevated blood sugar-check Hgb W9Z-xiz back on sweets/carbs . Hypertension - well [...]
--- OUTSIDE RECORDS SUMMARY | 2019-03-31 10:00 | XMS REPORT | Continuity of Care Document ---
Author Organization Unknown Address Unknown Phone Unavailable Allergies Active Description Code Type Severity Reaction Onset Reported/Identified Relationship to Patient Clinical Status Yes Sulfa (Sulfonamide Antibiotics) [id number] Drug Allergy Unknown N/A 02/10/2006 Yes Sulfa (Sulfonamide Antibiotics) Drug Allergy N/A N/A 10/27/2008 Yes sulfa drug Drug Allergy 10/27/2008 Yes lisinopril Drug Allergy N/A N/A 11/07/2009 Yes lisinopril Drug Allergy 11/07/2009 Yes codeine Drug Allergy N/A N/A 03/16/2013 Yes hydrochlorothiazide Drug Allergy N/A N/A 03/16/2013 Yes lisinopril [id number] Drug Allergy Unknown N/A 11/15/2013 Medications There is no data. Problems Date Dx Coded Attending Type Code Diagnosis Diagnosed By 07/01/1027 JORDI CANTU Ot M48.061 SPINAL STENOSIS, LUMBAR REGION WITHOUT N 07/01/1027 JORDI CANTU Ot M54.16 RADICULOPATHY, LUMBAR REGION 07/01/1430 JORDI CANTU Ot M48.061 SPINAL STENOSIS, LUMBAR REGION WITHOUT N 07/01/1430 JORDI CANTU Ot M54.16 RADICULOPATHY, LUMBAR REGION 02/21/2008 GEN BRAVO APRN 401.1 ESSENTIAL HYPERTENSION BENIGN 02/21/2008 401.1 ESSENTIAL HYPERTENSION BENIGN 02/21/2008 401.1 ESSENTIAL HYPERTENSION BENIGN 02/21/2008 GEN BRAVO APRN 401.1 ESSENTIAL HYPERTENSION BENIGN 02/21/2008 401.1 ESSENTIAL HYPERTENSION BENIGN 02/21/2008 401.1 ESSENTIAL HYPERTENSION BENIGN 02/21/2008 GABI TINOCO MD 401.1 ESSENTIAL HYPERTENSION BENIGN 03/07/2008 GEN BRAVO APRN 786.05 Shortness Of Breath 03/07/2008 GEN BRAVO APRN 786.50 Chest Pain 03/07/2008 786.05 Shortness Of Breath 03/07/2008 786.50 Chest Pain 03/07/2008 786.05 Shortness Of Breath 03/07/2008 786.50 Chest Pain 03/07/2008 GEN BRAVO APRN 786.05 Shortness Of Breath 03/07/2008 GEN BRAVO APRN S 786.50 Chest Pain 03/07/2008 786.05 Shortness Of Breath 03/07/2008 786.50 Chest Pain 03/07/2008 786.05 Shortness Of Breath 03/07/2008 786.50 Chest Pain 03/07/2008 GABI TINOCO MD 786.05 Shortness Of Breath 03/07/2008 GABI TINOCO MD 786.50 Chest Pain 03/29/2008 GEN BRAVO APRN 785.0 Tachycardia Unspecified 03/29/2008 785.0 Tachycardia Unspecified 03/29/2008 785.0 Tachycardia Unspecified 03/29/2008 GEN BRAVO APRN S 785.0 Tachycardia Unspecified 03/29/2008 785.0 Tachycardia Unspecified 03/29/2008 785.0 Tachycardia Unspecified 03/29/2008 GABI TINOCO MD 785.0 Tachycardia Unspecified 07/24/2008 GNE BRAVO APRN S 787.02 Nausea Alone 07/24/2008 787.02 Nausea Alone 07/24/2008 787.02 Nausea Alone 07/24/2008 GEN BRAVO APRN S 787.02 Nausea Alone 07/24/2008 787.02 Nausea Alone 07/24/2008 787.02 Nausea Alone 07/24/2008 GABI TINOCO MD 787.02 Nausea Alone 07/31/2008 GEN BRAVO APRN S 780.79 Feelings Of Weakness 07/31/2008 GEN BRAVO APRN S 789.00 Abdominal Pain 07/31/2008 780.79 Feelings Of Weakness 07/31/2008 789.00 Abdominal Pain 07/31/2008 780.79 Feelings Of Weakness 07/31/2008 789.00 Abdominal Pain 07/31/2008 GEN BRAVO APRN S 780.79 Feelings Of Weakness 07/31/2008 SHELLY MANAGER CARE, GEN S 789.00 Abdominal Pain 07/31/2008 780.79 Feelings Of Weakness 07/31/2008 789.00 Abdominal Pain 07/31/2008 780.79 Feelings Of Weakness 07/31/2008 789.00 Abdominal Pain 07/31/2008 GABI TINOCO MD 780.79 Feelings Of Weakness 07/31/2008 GABI TINOCO MD 789.00 Abdominal Pain 09/28/2008 GEN BRAVO APRN 530.10 Esophagitis 09/28/2008 530.10 Esophagitis 09/28/2008 530.10 Esophagitis 09/28/2008 GEN BRAVO APRN 530.10 Esophagitis 09/28/2008 530.10 Esophagitis 09/28/2008 530.10 Esophagitis 09/28/2008 GABI TINOCO MD 530.10 Esophagitis 10/27/2008 GEN BRAVO APRN 729.5 Pain In Limb 10/27/2008 729.5 Pain In Limb 10/27/2008 729.5 Pain In Limb 10/27/2008 GEN BRAVO APRN 729.5 Pain In Limb 10/27/2008 729.5 Pain In Limb 10/27/2008 729.5 Pain In Limb 10/27/2008 GABI TINOCO MD 729.5 Pain In Limb 11/13/2008 GEN BRAVO APRN NODX No Diagnosis 11/13/2008 NODX No Diagnosis 11/13/2008 NODX No Diagnosis 11/13/2008 GEN BRAVO APRN NODX No Diagnosis 11/13/2008 NODX No Diagnosis 11/13/2008 NODX No Diagnosis 11/13/2008 GABI TINOCO MD NODX No Diagnosis 01/17/2009 GEN BRAVO APRN 627.9 Menopausal Disorder 01/17/2009 GEN BRAVO APRN S V72.31 Pelvic Exam (internal) 01/17/2009 627.9 Menopausal Disorder 01/17/2009 V72.31 Pelvic Exam (internal) 01/17/2009 627.9 Menopausal Disorder 01/17/2009 V72.31 Pelvic Exam (internal) 01/17/2009 GEN BRAVO APRN 627.9 Menopausal Disorder 01/17/2009 GEN BRAVO APRN S V72.31 Pelvic Exam (internal) 01/17/2009 627.9 Menopausal Disorder 01/17/2009 V72.31 Pelvic Exam (internal) 01/17/2009 627.9 Menopausal Disorder 01/17/2009 V72.31 Pelvic Exam (internal) 01/17/2009 GABI TINOCO MD 627.9 Menopausal Disorder 01/17/2009 GABI TINOCO MD V72.31 Pelvic Exam (internal) 01/22/2009 GEN BRAVO APRN S 473.9 Unspecified Sinusitis (chronic) 01/22/2009 473.9 Unspecified Sinusitis (chronic) 01/22/2009 473.9 Unspecified Sinusitis (chronic) 01/22/2009 GEN BRAVO APRN S 473.9 Unspecified Sinusitis (chronic) 01/22/2009 473.9 Unspecified Sinusitis (chronic) 01/22/2009 473.9 Unspecified Sinusitis (chronic) 01/22/2009 GABI TINOCO MD 473.9 Unspecified Sinusitis (chronic) 03/19/2009 GEN BRAVO APRN S 401.9 ESSENTIAL HYPERTENSION 03/19/2009 SHAKIRA BRAVO [...] 03/19/2009 GABI TINOCO MD 786.2 cough 04/10/2009 GEN BRAVO APRN S 305.1 NICOTINE DEPENDENCE 04/10/2009 GEN BRAVO APRN S 708.9 Urticaria 04/10/2009 GEN BRAVO APRN S 787.20 Difficulty Swallowing With Food Sticking In The Throat 04/10/2009 305.1 NICOTINE DEPENDENCE 04/10/2009 708.9 Urticaria 04/10/2009 787.20 Difficulty Swallowing With Food Sticking In The Throat 04/10/2009 305.1 NICOTINE DEPENDENCE 04/10/2009 708.9 Urticaria 04/10/2009 787.20 Difficulty Swallowing With Food Sticking In The Throat 04/10/2009 GEN BRAVO APRN S 305.1 NICOTINE DEPENDENCE 04/10/2009 GEN BRAVO APRN S 708.9 Urticaria 04/10/2009 GEN BRAVO APRN S 787.20 Difficulty Swallowing With Food Sticking [...] In The Throat 07/04/2009 GEN BRAVO APRN 477.9 Allergic Rhinitis 07/04/2009 477.9 Allergic Rhinitis 07/04/2009 477.9 Allergic Rhinitis 07/04/2009 GEN BRAVO APRN 477.9 Allergic Rhinitis 07/04/2009 477.9 Allergic Rhinitis 07/04/2009 477.9 Allergic Rhinitis 07/04/2009 GABI TINOCO MD 477.9 Allergic Rhinitis 12/06/2009 SHELLY MANAGER CARE, GEN S 599.0 Urinary Tract Infection, Site Not Specified 12/06/2009 SHELLY MANAGER CARE, GEN S 788.1 Dysuria 12/06/2009 SHELLY MANAGER CARE, GEN S 788.41 Urinary Frequency 12/06/2009 SHELLY MANAGER CARE, GEN S 788.63 Urinary Urgency 12/06/2009 599.0 Urinary Tract Infection, Site Not Specified 12/06/2009 788.1 Dysuria 12/06/2009 788.41 Urinary Frequency 12/06/2009 788.63 Urinary Urgency 12/06/2009 599.0 Urinary Tract Infection, Site Not Specified 12/06/2009 788.1 Dysuria 12/06/2009 788.41 Urinary Frequency 12/06/2009 788.63 Urinary Urgency 12/06/2009 SHELLY MANAGER CARE, GEN S 599.0 Urinary Tract Infection, Site Not Specified 12/06/2009 SHELLY MANAGER CARE, GEN S 788.1 Dysuria 12/06/2009 SHELLY GARCIA, GEN S 788.41 Urinary Frequency 12/06/2009 SHELLY MANAGER CARE, GEN S 788.63 Urinary Urgency 12/06/2009 599.0 Urinary Tract Infection, Site Not Specified 12/06/2009 788.1 Dysuria 12/06/2009 788.41 Urinary Frequency 12/06/2009 788.63 Urinary Urgency 12/06/2009 599.0 Urinary Tract Infection, Site Not Specified 12/06/2009 788.1 Dysuria 12/06/2009 788.41 Urinary Frequency 12/06/2009 788.63 Urinary Urgency 12/06/2009 GABI TINOCO MD 599.0 Urinary Tract Infection, Site Not Specified 12/06/2009 EARNEST MILLER, GABI 788.1 Dysuria 12/06/2009 GABI TINOCO MD 788.41 Urinary Frequency 12/06/2009 GABI TINOCO MD 788.63 Urinary Urgency 01/23/2010 MATEO BRAVO APRNNDA S 300.02 AN GEN ANXIETY 01/23/2010 SHELLY GARCIA GEN S 536.8 Dyspepsia And Other Specified Disorders [...] Region And Thigh 03/05/2010 719.45 Pain In Joint, Pelvic Region And Thigh 03/05/2010 719.45 Pain In Joint, Pelvic Region And Thigh 03/05/2010 GEN BRAVO APRN 719.45 Pain In Joint, Pelvic Region And Thigh 03/05/2010 719.45 Pain In Joint, Pelvic Region And Thigh 03/05/2010 719.45 Pain In Joint, Pelvic Region And Thigh 03/05/2010 GABI TINOCO MD 719.45 Pain In Joint, Pelvic Region And Thigh 03/20/2010 GEN BRAVO APRN 726.5 Enthesopathy Of [...] 03/21/2010 784.0 Headache 03/21/2010 GEN BRAVO APRN S 784.0 Headache 03/21/2010 784.0 Headache 03/21/2010 784.0 Headache 03/21/2010 GABI TINOCO MD 784.0 Headache 05/20/2010 GEN BRAVO APRN S 627.2 SYMPTOMATIC MENOPAUSAL OR FEMALE CLIMACTERIC STATES 05/20/2010 627.2 SYMPTOMATIC MENOPAUSAL OR FEMALE CLIMACTERIC STATES 05/20/2010 627.2 SYMPTOMATIC MENOPAUSAL OR FEMALE CLIMACTERIC STATES 05/20/2010 GEN BRAVO APRN S 627.2 SYMPTOMATIC MENOPAUSAL OR FEMALE CLIMACTERIC STATES 05/20/2010 627.2 SYMPTOMATIC MENOPAUSAL OR FEMALE CLIMACTERIC STATES 05/20/2010 627.2 SYMPTOMATIC MENOPAUSAL OR FEMALE CLIMACTERIC STATES 05/20/2010 GABI TINOCO MD 627.2 SYMPTOMATIC MENOPAUSAL OR FEMALE CLIMACTERIC STATES 05/21/2010 Ot 355.0 05/21/2010 Ot 401.9 05/21/2010 Ot 723.1 05/21/2010 Ot 784.0 05/21/2010 Ot V57.1 01/01/2011 GEN BRAVO APRN S 465.9 Acute Upper Respiratory Infections Of Unspecified Site 01/01/2011 GEN BRAVO APRN S 466.0 Acute Bronchitis 01/01/2011 465.9 Acute Upper Respiratory Infections Of Unspecified Site 01/01/2011 466.0 Acute Bronchitis 01/01/2011 465.9 Acute Upper Respiratory Infections Of Unspecified Site 01/01/2011 466.0 Acute Bronchitis 01/01/2011 GEN BRAVO APRN S 465.9 Acute Upper Respiratory Infections Of Unspecified Site 01/01/2011 GEN BRAVO APRN S 466.0 Acute Bronchitis 01/01/2011 465.9 Acute Upper Respiratory Infections Of Unspecified Site 01/01/2011 466.0 Acute Bronchitis 01/01/2011 465.9 Acute Upper Respiratory Infections Of Unspecified Site 01/01/2011 466.0 Acute Bronchitis 01/01/2011 GABI TINOCO MD 465.9 Acute Upper Respiratory Infections Of Unspecified Site 01/01/2011 GABI TINOCO MD 466.0 Acute Bronchitis 02/07/2011 GEN BRAVO APRN S 627.3 Postmenopausal Atrophic Vaginitis 02/07/2011 627.3 Postmenopausal Atrophic Vaginitis 02/07/2011 627.3 Postmenopausal Atrophic Vaginitis 02/07/2011 GEN BRAVO APRN S 627.3 Postmenopausal Atrophic Vaginitis 02/07/2011 627.3 Postmenopausal Atrophic Vaginitis 02/07/2011 627.3 Postmenopausal Atrophic Vaginitis 02/07/2011 GABI TINOCO MD 627.3 Postmenopausal Atrophic Vaginitis 03/13/2011 GEN BRAVO APRN S 268.9 Unspecified [...] History Of Nutritional Deficiency 03/13/2011 V58.69 Long-term (current) Use Of Other Medications 03/13/2011 268.9 Unspecified Vitamin D Deficiency 03/13/2011 300.00 ANXIETY UNSPEC 03/13/2011 789.30 Abdominal Or Pelvic Swelling Mass Or Lump Unspecified Site 03/13/2011 V12.1 Personal History Of Nutritional Deficiency 03/13/2011 V58.69 Long-term (current) Use Of Other Medications 03/13/2011 GEN BRAVO APRN S 268.9 Unspecified Vitamin D Deficiency 03/13/2011 GEN BRAVO APRN S 300.00 ANXIETY UNSPEC 03/13/2011 GEN BRAVO APRN S 789.30 Abdominal Or Pelvic Swelling Mass Or Lump Unspecified Site 03/13/2011 GEN BRAVO APRN S V12.1 Personal History Of Nutritional Deficiency 03/13/2011 GEN BRAVO APRN V58.69 Long-term (current) Use Of Other Medications 03/13/2011 268.9 Unspecified Vitamin D Deficiency 03/13/2011 300.00 ANXIETY UNSPEC 03/13/2011 789.30 Abdominal Or Pelvic Swelling Mass Or Lump Unspecified Site 03/13/2011 V12.1 Personal History Of Nutritional Deficiency 03/13/2011 V58.69 Long-term (current) Use Of Other Medications 03/13/2011 268.9 Unspecified Vitamin D Deficiency 03/13/2011 300.00 ANXIETY UNSPEC 03/13/2011 789.30 Abdominal Or Pelvic Swelling Mass Or Lump Unspecified Site 03/13/2011 V12.1 Personal History Of Nutritional Deficiency 03/13/2011 V58.69 Long-term (current) Use Of Other Medications 03/13/2011 GABI TINOCO MD 268.9 Unspecified Vitamin D Deficiency 03/13/2011 GABI TINOCO MD 300.00 ANXIETY UNSPEC 03/13/2011 GABI TINOCO MD 789.30 Abdominal Or Pelvic Swelling Mass Or Lump Unspecified Site 03/13/2011 GABI TINOCO MD V12.1 Personal History Of Nutritional Deficiency 03/13/2011 GABI TINOCO MD V58.69 Long-term (current) Use Of Other Medications 03/15/2011 GEN BRAVO APRN 790.29 Abnormal Glucose 03/15/2011 790.29 Abnormal Glucose 03/15/2011 790.29 Abnormal Glucose 03/15/2011 GEN BRAVO APRN 790.29 Abnormal Glucose 03/15/2011 790.29 Abnormal Glucose 03/15/2011 790.29 Abnormal Glucose 03/15/2011 GABI TINOCO MD 790.29 Abnormal Glucose 03/31/2011 GEN BRAVO APRN S V04.81 Flu Dx (medicare Only) 03/31/2011 GEN BRAVO APRN S V18.0 FAM HX DIABETES MELLITUS 03/31/2011 V04.81 Flu Dx (medicare Only) 03/31/2011 V18.0 FAM HX DIABETES MELLITUS 03/31/2011 V04.81 Flu Dx (medicare Only) 03/31/2011 V18.0 FAM HX DIABETES MELLITUS 03/31/2011 GEN BRAVO APRN V04.81 Flu Dx (medicare Only) 03/31/2011 GEN BRAVO APRN V18.0 FAM HX DIABETES MELLITUS 03/31/2011 V04.81 Flu Dx (medicare Only) 03/31/2011 V18.0 FAM HX DIABETES MELLITUS 03/31/2011 V04.81 Flu Dx (medicare Only) 03/31/2011 V18.0 FAM HX DIABETES MELLITUS [...] 530.81 Gerd 07/20/2011 530.81 Gerd 07/20/2011 GEN BRVAO APRN 530.81 Gerd 07/20/2011 530.81 Gerd 07/20/2011 [...] MD V65.42 COUNSELING - SMOKING CESSATION 04/11/2012 GEN BRAVO APRN 724.1 PAIN IN [...] 487.1 INFLUENZA 08/05/2012 487.1 INFLUENZA 08/05/2012 GABI TINOOC MD 487.1 INFLUENZA 10/25/2012 GEN BRAVO APRN 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 10/25/2012 GEN BRAVO APRN 535.50 UNSPECIFIED GASTRITIS AND GASTRODUODENITIS (WITHOUT HEMORRHAGE) 10/25/2012 GEN BRAVO APRN 719.46 PAIN- KNEE 10/25/2012 GEN BRAVO APRN V76.12 MAMMOGRAM SCREENING 10/25/2012 307.42 PERSISTENT DISORDER [...] TINOCO MD 733.90 OSTEOPENIA 08/29/2013 JANN MILLER FACC, TABITHA FACP CCDS Ot 305.1 TOBACCO USE DISORDER 08/29/2013 JANN MILLER FACC, TABITHA FACP CCDS Ot 401.9 HYPERTENSION NOS 08/29/2013 JANN MILLER FACC, TABITHA FACP CCDS Ot 414.01 CORONARY ATHEROSCLEROSIS OF L[place] TRIBE CORON 08/29/2013 JANN MILLER FACC, ALI FACP CCDS Ot 414.4 CORONARY ATHEROSCLEROSIS DUE TO [place]CIF[place] 08/29/2013 JANN MILLER FACC, TABITHA FACP CCDS Ot 426.4 RT BUNDLE BRANCH BLOCK 08/29/2013 JANN MILLER FACC, TABITHA FACP CCDS Ot 786.59 CHEST PAIN NEC 08/29/2013 JANN MILLER FACC, ALI FACP CCDS Ot V58.69 OTH MED,LT,CURRENT [...] TELLEZ MD Ot 553.3 DIAPHRAGMATIC HERNIA 11/15/2013 GEOFF MILLER, BHAVESH Ot V12.72 PERSONAL HISTORY OF COLONIC POLYPS 08/08/2014 LILIBETH MILLER, REMY Segal Ot 272.4 08/08/2014 LILIBETH MILLER, REMY Segal Ot 305.1 08/08/2014 LILIBETH MILLER, REMY A [...] GEN BRAVO Ot 401.9 11/22/2014 GEN BRAVO CLINICAL SCIENCE CONSULTANT Ot 724.2 11/22/2014 GEN BRAVO CLINICAL SCIENCE CONSULTANT Ot V70.0 11/22/2014 GEN BRAVO CLINICAL SCIENCE CONSULTANT Ot V76.51 11/22/2014 MARILEE MILLER, JAVON Williamson Ot 272.4 11/22/2014 GEOFF MILLER, TAKAAKI Ot V72.84 11/22/2014 LYNSEY HAND CLINICAL SCIENCE CONSULTANT Ot V76.12 11/22/2014 LYNSEY HAND CLINICAL SCIENCE CONSULTANT Ot 793.80 11/22/2014 LILIBETH MILLER, REMY A [...] REMY A Ot V82.9 12/29/2014 LYNSEY HAND CLINICAL SCIENCE CONSULTANT Ot 793.11 01/09/2015 Ot V76.12 01/09/2015 Ot [...] 272.4 01/09/2015 Ot V76.12 01/09/2015 GEN BRAVO CLINICAL SCIENCE CONSULTANT Ot 401.9 01/09/2015 GEN BRAVO CLINICAL SCIENCE CONSULTANT Ot 724.2 01/09/2015 GEN BRAVO CLINICAL SCIENCE CONSULTANT Ot V70.0 01/09/2015 GEN BRAVO CLINICAL SCIENCE CONSULTANT Ot V76.51 01/09/2015 MARILEE MILLER, JAVON Williamson Ot 272.4 01/09/2015 GEOFF MILLER, BHAVESH Ot V72.84 01/09/2015 LYNSEY HAND CLINICAL SCIENCE CONSULTANT Ot V76.12 01/09/2015 LYNSEY HAND CLINICAL SCIENCE CONSULTANT Ot 793.80 01/09/2015 LILBIETH MILLER, REMY Segal Ot 401.9 01/09/2015 LILIBETH MILLER, REMY Segal Ot 790.29 01/09/2015 LILIBETH MILLER, REMY A Ot V72.62 01/09/2015 LILIBETH MILLER, REMY A Ot 272.4 01/09/2015 LILIBETH MILLER, REMY Segal Ot 305.1 01/09/2015 LILIBETH MILLER, REMY A Ot 401.9 01/09/2015 LILIBETH MILLER, REMY Segal Ot V72.62 01/09/2015 LILIBETH MILLER, REMY A Ot 272.4 01/09/2015 LILIBETH MILLER, REMY A Ot 305.1 01/09/2015 LILIBETH MILLER, REMY A Ot 401.9 01/09/2015 LILIBETH MILLER, REMY A Ot V82.9 01/09/2015 LYNSEY HAND CLINICAL SCIENCE CONSULTANT Ot 793.11 01/28/2015 LYNSEY HAND CLINICAL SCIENCE CONSULTANT Ot V76.12 02/04/2015 Ot 611.8 02/04/2015 Ot [...] 02/04/2015 Ot 272.4 02/04/2015 Ot V76.12 02/04/2015 GEN BRAVO CLINICAL SCIENCE CONSULTANT Ot 401.9 02/04/2015 GEN BRAVO CLINICAL SCIENCE CONSULTANT Ot 724.2 02/04/2015 GEN BRAVO CLINICAL SCIENCE CONSULTANT Ot V70.0 02/04/2015 GEN BRAVO CLINICAL SCIENCE CONSULTANT Ot V76.51 02/04/2015 MARILEE MILLER, JAVON Williamson Ot 272.4 02/04/2015 GEOFF MILLER, BHAVESH Ot V72.84 02/04/2015 LYNSEY HAND CLINICAL SCIENCE CONSULTANT Ot V76.12 02/04/2015 LYNSEY HAND CLINICAL SCIENCE CONSULTANT Ot 793.80 02/04/2015 LILIBETH MILLER, REMY A [...] REMY A Ot V82.9 02/04/2015 LYNSEY HAND CLINICAL SCIENCE CONSULTANT Ot 793.11 02/04/2015 LYNSEY HAND CLINICAL SCIENCE CONSULTANT Ot V76.12 03/15/2015 LILIBETH MILLER, REMY A Ot 305.1 03/15/2015 LILIBETH MILLER, REMY A Ot 401.9 03/15/2015 LILIBETH MILLER, REMY A Ot 790.29 03/20/2015 LYNSEY HAND CLINICAL SCIENCE CONSULTANT Ot 793.11 06/03/2015 LYNSEY HAND CLINICAL SCIENCE CONSULTANT Ot R91.1 06/05/2015 MAYA MORA APRN Ot F17.200 06/19/2015 LYNSEY HAND CLINICAL SCIENCE CONSULTANT Ot R91.1 08/14/2015 Ot 789.04 08/14/2015 Ot [...] 272.4 08/14/2015 Ot V76.12 08/14/2015 GEN BRAVO CLINICAL SCIENCE CONSULTANT Ot 401.9 08/14/2015 GEN BRAVO CLINICAL SCIENCE CONSULTANT Ot 724.2 08/14/2015 GEN BARVO CLINICAL SCIENCE CONSULTANT Ot V70.0 08/14/2015 GEN BRAVO CLINICAL SCIENCE CONSULTANT Ot V76.51 08/14/2015 MARILEE MILLER, JAVON Williamson Ot 272.4 08/14/2015 GEOFF MILLER, BHAVESH Ot V72.84 08/14/2015 LYNSEY HAND CLINICAL SCIENCE CONSULTANT Ot V76.12 08/14/2015 LYNSEY HAND CLINICAL SCIENCE CONSULTANT Ot 793.80 08/14/2015 LILIBETH MILLER, REMY A Ot 401.9 08/14/2015 LILIBETH MILLER, REMY A Ot 790.29 08/14/2015 LILIBETH MILLER, REMY A Ot V72.62 [...] REMY A Ot V82.9 08/14/2015 LYNSEY HAND CLINICAL SCIENCE CONSULTANT Ot 793.11 08/14/2015 LYNSEY HAND CLINICAL SCIENCE CONSULTANT Ot V76.12 08/14/2015 LILIBETH MILLER, REMY A Ot 305.1 08/14/2015 LILIBETH MILLER, REMY A Ot 401.9 08/14/2015 LILIBETH MILLER, REMY A Ot 790.29 08/14/2015 LYNSEY HAND CLINICAL SCIENCE CONSULTANT Ot 793.11 08/14/2015 MAYA MORA APRN Ot F17.200 08/14/2015 LYNSEY HAND CLINICAL SCIENCE CONSULTANT Ot R91.1 09/02/2015 LYNSEY HAND CLINICAL SCIENCE CONSULTANT Ot R91.1 12/19/2015 TIFFANI DUNLAP MD Ot C34.91 MALIGNANT NEOPLASM OF UNSP PART OF RIGHT 12/19/2015 TIFFANI DUNLAP MD Ot F17.210 NICOTINE DEPENDENCE, CIGARETTES, UNCOMPL 12/19/2015 TIFFANI DUNLAP MD Ot I10 ESSENTIAL (PRIMARY) HYPERTENSION 12/19/2015 TIFFANI DUNLAP MD Ot J44.9 CHRONIC OBSTRUCTIVE PULMONARY DISEASE, U 12/20/2015 BOB MOSELEY DO Ot 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 NEOPLASM OF UPPER LOBE, LEFT B 12/20/2015 BOB MOSELEY DO Ot R91.1 SOLITARY PULMONARY NODULE 12/20/2015 BOB MOSELEY DO Ot Z72.0 TOBACCO USE 12/20/2015 MANUEL HENDRIX APRN Ot M54.5 LOW BACK PAIN 12/23/2015 MANUEL HENDRIX APRN Ot M54.5 LOW BACK PAIN 12/23/2015 MANUEL HENDRIX APRN Ot M54.5 LOW BACK PAIN 01/08/2016 TIFFANI DUNLAP MD Ot C34.91 MALIGNANT NEOPLASM OF UNSP PART OF RIGHT 01/08/2016 TIFFANI DUNLAP MD Ot F17.210 NICOTINE DEPENDENCE, CIGARETTES, UNCOMPL 01/08/2016 TIFFANI DUNLAP MD Ot I10 ESSENTIAL (PRIMARY) HYPERTENSION 01/08/2016 TIFFANI DUNLAP MD, Ot J44.9 CHRONIC OBSTRUCTIVE [...] I10 ESSENTIAL (PRIMARY) HYPERTENSION 01/23/2016 TIFFANI DUNLAP MD Ot J44.9 CHRONIC OBSTRUCTIVE PULMONARY DISEASE, U 01/24/2016 MAYA MORA APRN Ot 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 NEOPLASM [...] NICOTINE DEPENDENCE, CIGARETTES, UNCOMPL 02/26/2016 TIFFANI DUNLAP MD, Ot I10 ESSENTIAL (PRIMARY) HYPERTENSION 02/26/2016 TIFFANI DUNLAP MD, Ot J44.9 CHRONIC OBSTRUCTIVE [...] APRN Ot M54.5 LOW BACK PAIN 02/26/2016 LORELEI DO, BOB M Ot 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 NEOPLASM OF UPPER LOBE, [...] NICOTINE DEPENDENCE, CIGARETTES, UNCOMPL 03/14/2016 TIFFANI DUNLAP MD, Ot I10 ESSENTIAL (PRIMARY) HYPERTENSION 03/14/2016 TIFFANI DUNLAP MD, Ot J44.9 CHRONIC OBSTRUCTIVE PULMONARY DISEASE, U 03/16/2016 MANUEL HENDRIX APRN Ot M54.5 LOW BACK PAIN 03/16/2016 BOB MOSELEY DO Ot 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 NEOPLASM OF UPPER LOBE, LEFT B 03/16/2016 BOB MOSELEY DO Ot R91.1 SOLITARY PULMONARY NODULE 03/16/2016 BOB MOSELEY DO Ot Z72.0 TOBACCO USE 03/16/2016 MAYA MORA APRN Ot 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 NEOPLASM OF UPPER LOBE, UNSP B 03/16/2016 MAYA MORA APRN Ot R91.1 SOLITARY PULMONARY NODULE 03/16/2016 Ot Z12.31 ENCNTR SCREEN MAMMOGRAM FOR MALIGNANT NE 03/16/2016 TIFFANI DUNLAP MD, Ot C34.91 MALIGNANT NEOPLASM OF UNSP PART OF RIGHT 03/16/2016 TIFFANI DUNLAP MD Ot F17.210 NICOTINE DEPENDENCE, CIGARETTES, UNCOMPL 03/16/2016 TIFFANI DUNLAP MD, Ot I10 ESSENTIAL (PRIMARY) HYPERTENSION 03/16/2016 TIFFANI DUNLAP MD, Ot J44.9 CHRONIC OBSTRUCTIVE PULMONARY DISEASE, U 04/01/2016 TIFFANI DUNLAP MD, Ot C34.91 MALIGNANT NEOPLASM OF UNSP PART OF RIGHT 04/01/2016 TIFFANI DUNLAP MD Ot F17.210 NICOTINE DEPENDENCE, CIGARETTES, UNCOMPL 04/01/2016 TIFFANI DUNLAP MD Ot I10 ESSENTIAL (PRIMARY) HYPERTENSION 04/01/2016 TIFFANI DUNLAP MD Ot J44.9 CHRONIC OBSTRUCTIVE PULMONARY DISEASE, U 04/10/2016 TIFFANI DUNLAP MD Ot 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 NEOPLASM OF UPPER LOBE, LEFT B 04/10/2016 TIFFANI DUNLAP MD Ot R59.0 LOCALIZED ENLARGED LYMPH NODES 04/23/2016 TIFFANI DUNLAP MD Ot C34.91 MALIGNANT NEOPLASM OF UNSP PART OF RIGHT 04/23/2016 TIFFANI DUNLAP MD Ot F17.210 NICOTINE DEPENDENCE, CIGARETTES, UNCOMPL 04/23/2016 TIFFANI DUNLAP MD Ot I10 ESSENTIAL (PRIMARY) HYPERTENSION 04/23/2016 GERMÁN MILLER, TIFFANI Ot J44.9 CHRONIC OBSTRUCTIVE PULMONARY DISEASE, U 05/08/2016 GERMÁN MILLER, TIFFAIN Ot C34.91 MALIGNANT NEOPLASM OF UNSP PART OF RIGHT 05/08/2016 GERMÁN MILLER, TIFFANI Ot F17.210 NICOTINE DEPENDENCE, CIGARETTES, UNCOMPL 05/08/2016 GERMÁN MILLER, TIFFANI Ot I10 ESSENTIAL (PRIMARY) HYPERTENSION 05/08/2016 GERMÁN MILLER, TIFFANI Ot J44.9 CHRONIC OBSTRUCTIVE PULMONARY DISEASE, U 05/21/2016 Ot 272.4 HYPERLIPIDEMIA NEC/NOS 05/21/2016 Ot 789.30 ABDOMINAL/PELVIC SWELLING,MASS/LUMP UNSP 05/21/2016 Ot 790.29 OTHER ABNORMAL GLUCOSE 05/21/2016 Ot 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 05/21/2016 Ot 780.4 DIZZINESS AND GIDDINESS 05/21/2016 Ot 786.09 RESPIRATORY ABNORM NEC 05/21/2016 Ot 786.50 CHEST PAIN NOS 05/21/2016 Ot V58.66 LONG-TERM (CURRENT) USE OF ASPIRIN 05/21/2016 Ot V58.69 OTH MED,LT,CURRENT USE 05/21/2016 Ot 780.4 DIZZINESS AND GIDDINESS [...] HYPERLIPIDEMIA NEC/NOS 05/21/2016 Ot V76.12 OTH SCREEN MAMMO- MALIGN NEOPLASM OF [place] 05/21/2016 GEN BRAVO CLINICAL SCIENCE CONSULTANT Ot 401.9 HYPERTENSION NOS 05/21/2016 GEN BRAVO CLINICAL SCIENCE CONSULTANT Ot 724.2 LUMBAGO 05/21/2016 GEN BRAVOP Ot V70.0 ROUTINE MEDICAL EXAM 05/21/2016 GEN BRAVO CLINICAL SCIENCE CONSULTANT Ot V76.51 SCREEN MAL NEOP-COLON 05/21/2016 MARILEE MILLER, JAVON Williamson Ot 272.4 HYPERLIPIDEMIA NEC/NOS 05/21/2016 GEOFF MILLER, BHAVESH Ot V72.84 EXAM PRE-OPERATIVE NOS 05/21/2016 LYNSEY HAND [employer]ICAL SCIENCE CONSULTANT Ot V76.12 OTH SCREEN MAMMO-MALIGN NEOPLASM OF J[place]IAH 05/21/2016 LYNSEY HAND [employer]INICAL SCIENCE CONSULTANT Ot 793.80 UNSPEC ABNORMAL MAMMOGRAM 05/21/2016 ABHISHEK MCELROY MDY A Ot 401.9 HYPERTENSION NOS 05/21/2016 LILIBETH MILLER, REMY A Ot 790.29 OTHER ABNORMAL GLUCOSE 05/21/2016 LILIBETH MILLER, REMY A Ot V72.62 LAB EXAM ORDERED PART OF A ROUTINE GE 05/21/2016 REMY MCELROY MD A Ot 272.4 HYPERLIPIDEMIA NEC/NOS 05/21/2016 ABHISHEK MCELROY MDY A Ot 305.1 TOBACCO USE DISORDER 05/21/2016 ABHISHEK MCELROY MDY A Ot 401.9 HYPERTENSION NOS 05/21/2016 ABHISHEK MCELROY MDY A Ot V72.62 LAB EXAM ORDERED PART OF A ROUTINE GE 05/21/2016 REMY MCELROY MD A Ot 272.4 HYPERLIPIDEMIA NEC/NOS 05/21/2016 LILIBETH MILLER REMY A Ot 305.1 TOBACCO USE DISORDER 05/21/2016 LILIBETH MILLER REMY A Ot 401.9 HYPERTENSION NOS 05/21/2016 LILIBETH MILLER REMY A Ot V82.9 SCREEN FOR CONDITION NOS 05/21/2016 LYNSEY [employer] SCIENCE CONSULTANT Ot 793.11 SOLITARY PULMONARY NODULE 05/21/2016 LYNSEY HAND [employer]INICAL SCIENCE CONSULTANT Ot V76.12 OTH SCREEN MAMMO-MALIGN NEOPLASM OF JOSIAH 05/21/2016 REMY MCELROY MD A Ot 305.1 TOBACCO USE DISORDER 05/21/2016 LILIBETH MILLER REMY A Ot 401.9 HYPERTENSION NOS 05/21/2016 LILIBETH MILLER REMY A Ot 790.29 OTHER ABNORMAL GLUCOSE 05/21/2016 LYNSEY HAND [employer] SCIENCE CONSULTANT Ot 793.11 SOLITARY PULMONARY NODULE 05/21/2016 MAYA MORA APRN Ot F17.200 NICOTINE DEPENDENCE, UNSPECIFIED, UNCOMP 05/21/2016 LYNSEY HAND [employer]ICAL SCIENCE CONSULTANT Ot R91.1 SOLITARY PULMONARY NODULE 05/21/2016 LYNSEY HAND Ot R91.1 SOLITARY PULMONARY NODULE 05/21/2016 MANUEL HENDRIX APRN Ot M54.5 LOW BACK PAIN 05/21/2016 LORELEI BOB Ot 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 NEOPLASM OF UPPER LOBE, LEFT B 05/21/2016 BOB MOSELEY DO Seamus Ot R91.1 SOLITARY PULMONARY NODULE 05/21/2016 LORELEI DO BOB M Ot Z72.0 TOBACCO USE 05/21/2016 MAYA MORA APRN Ot 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 NEOPLASM OF UPPER LOBE, UNSP B 05/21/2016 MAYA MORA APRN Ot R91.1 SOLITARY PULMONARY NODULE 05/21/2016 Ot Z12.31 ENCNTR SCREEN MAMMOGRAM FOR MALIGNANT NE 05/21/2016 TIFFANI DUNLAP MD Ot 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 NEOPLASM OF UPPER LOBE, LEFT B 05/21/2016 TIFFANI DUNLAP MD Ot R59.0 LOCALIZED ENLARGED LYMPH NODES 05/21/2016 TIFFANI DUNLAP MD, Ot C34.91 MALIGNANT NEOPLASM OF UNSP PART OF RIGHT 05/21/2016 TIFFANI DUNLAP MD Ot F17.210 NICOTINE DEPENDENCE, CIGARETTES, UNCOMPL 05/21/2016 TIFFANI DUNLAP MD Ot I10 ESSENTIAL (PRIMARY) HYPERTENSION 05/21/2016 [...] Ot 272.4 HYPERLIPIDEMIA NEC/NOS 06/02/2016 Ot 789.30 ABDOMINAL/PELVIC SWELLING,MASS/LUMP UNSP 06/02/2016 Ot 790.29 OTHER ABNORMAL GLUCOSE 06/02/2016 Ot 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 06/02/2016 Ot 780.4 DIZZINESS AND GIDDINESS 06/02/2016 Ot 786.09 RESPIRATORY ABNORM NEC 06/02/2016 Ot 786.50 CHEST PAIN NOS 06/02/2016 Ot V58.66 LONG-TERM (CURRENT) USE OF ASPIRIN 06/02/2016 Ot V58.69 OTH MED,LT,CURRENT USE 06/02/2016 Ot 780.4 DIZZINESS AND GIDDINESS [...] HYPERLIPIDEMIA NEC/NOS 06/02/2016 Ot V76.12 OTH SCREEN MAMMO- MALIGN NEOPLASM OF [place] 06/02/2016 GEN BRAVO CLINICAL SCIENCE CONSULTANT Ot 401.9 HYPERTENSION NOS 06/02/2016 GEN BRAVO CLINICAL SCIENCE CONSULTANT Ot 724.2 LUMBAGO 06/02/2016 GEN BRAVOP Ot V70.0 ROUTINE MEDICAL EXAM 06/02/2016 GEN BRAVO CLINICAL SCIENCE CONSULTANT Ot V76.51 SCREEN MAL NEOP-COLON 06/02/2016 MARILEE MILLER, JAVON Williamson Ot 272.4 HYPERLIPIDEMIA NEC/NOS 06/02/2016 GEOFF MILLER, BHAVESH Ot V72.84 EXAM PRE-OPERATIVE NOS 06/02/2016 LYNSEY HAND CLINICAL SCIENCE CONSULTANT Ot V76.12 OTH SCREEN MAMMO-MALIGN NEOPLASM OF [place] 06/02/2016 LYNSEY HAND CLINICAL SCIENCE CONSULTANT Ot 793.80 UNSPEC ABNORMAL MAMMOGRAM 06/02/2016 LILIBETH MILLER, REMY Segal Ot 401.9 HYPERTENSION NOS 06/02/2016 LILIBETH MD, REMY A Ot 790.29 OTHER ABNORMAL GLUCOSE 06/02/2016 LILIBETH MILLER, REMY Segal Ot V72.62 LAB EXAM ORDERED PART OF A ROUTINE GE 06/02/2016 REMY MCELROY MD A Ot 272.4 HYPERLIPIDEMIA NEC/NOS 06/02/2016 LILIBETH MILLER, REMY A Ot 305.1 TOBACCO USE DISORDER 06/02/2016 LILIBETH MILLER, REMY A Ot 401.9 HYPERTENSION NOS 06/02/2016 REMY MCELROY MD Ot V72.62 LAB EXAM ORDERED PART OF A ROUTINE GE 06/02/2016 REMY MCELROY MD A Ot 272.4 HYPERLIPIDEMIA NEC/NOS 06/02/2016 LILIBETH MILLER, REMY A Ot 305.1 TOBACCO USE DISORDER 06/02/2016 LILIBETH MILLER, REMY A Ot 401.9 HYPERTENSION NOS 06/02/2016 REMY MCELROY MD Ot V82.9 SCREEN FOR CONDITION NOS 06/02/2016 LYNSEY HAND CLINICAL SCIENCE CONSULTANT Ot 793.11 SOLITARY PULMONARY NODULE 06/02/2016 LYNSEY HAND CLINICAL SCIENCE CONSULTANT Ot V76.12 OTH SCREEN MAMMO-MALIGN NEOPLASM OF [place] 06/02/2016 REMY MCELROY MD Ot 305.1 TOBACCO USE DISORDER 06/02/2016 REMY MCELROY MD Ot 401.9 HYPERTENSION NOS 06/02/2016 REMY MCELROY MD A Ot 790.29 OTHER ABNORMAL GLUCOSE 06/02/2016 LYNSEY HAND CLINICAL SCIENCE CONSULTANT Ot 793.11 SOLITARY PULMONARY NODULE 06/02/2016 MAYA MORA APRN Ot F17.200 NICOTINE DEPENDENCE, UNSPECIFIED, UNCOMP 06/02/2016 LYNSEY HAND CLINICAL SCIENCE CONSULTANT Ot R91.1 SOLITARY PULMONARY NODULE 06/02/2016 LYNSEY HAND CLINICAL SCIENCE CONSULTANT Ot R91.1 SOLITARY PULMONARY NODULE 06/02/2016 MANUEL HENDRIX MANAGER CARE Ot M54.5 LOW BACK PAIN 06/02/2016 BOB [...] ENCNTR SCREEN MAMMOGRAM FOR MALIGNANT NE 06/02/2016 TIFFANI DUNLAP MD Ot 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 NEOPLASM [...] DISEASE, U 06/02/2016 LYNSEY HAND Ot M85.89 OT DISRD OF BONE DENSITY AND STRUCTURE, 06/03/2016 JANN MILLER FACC, TABITHA FACP CCDS Ot E78.4 OTHER HYPERLIPIDEMIA 06/03/2016 JANN MILLER FACC, ALI FACP CCDS Ot I10 ESSENTIAL (PRIMARY) HYPERTENSION 06/03/2016 JANN MILLER FACC, ALI FACP CCDS Ot I25.10 ATHSCL HEART DISEASE OF [place] CORONARY 06/03/2016 JANN MILLER FACC, ALI FACP [...] CCDS Ot I25.10 ATHSCL HEART DISEASE OF [place] CORONARY 06/08/2016 JANN MILLER FACC, ALI FACP CCDS Ot I65.23 OCCLUSION AND STENOSIS OF BILATERAL [place] 06/08/2016 JANN MILLER FACC, ALI FACP CCDS Ot J43.8 OTHER EMPHYSEMA 06/08/2016 JANN MILLER FACC, ALI FACP CCDS Ot Z72.0 TOBACCO USE 06/11/2016 LYNSEY HAND CLINICAL SCIENCE CONSULTANT Ot M85.89 OT DISRD OF BONE DENSITY AND STRUCTURE, 06/23/2016 TIFFANI DUNLAP MD Ot C34.91 MALIGNANT NEOPLASM OF UNSP PART OF RIGHT 06/23/2016 TIFFANI DUNLAP MD Ot F17.210 NICOTINE DEPENDENCE, CIGARETTES, UNCOMPL 06/23/2016 TFIFANI DUNLAP MD Ot I10 ESSENTIAL (PRIMARY) HYPERTENSION 06/23/2016 TIFFANI DUNLAP MD Ot J44.9 CHRONIC OBSTRUCTIVE PULMONARY DISEASE, U 06/23/2016 JANN MILLER FACC, ALI FACP CCDS Ot E78.4 OTHER HYPERLIPIDEMIA 06/23/2016 JANN MILLER FACC, ALI FACP CCDS Ot I10 ESSENTIAL (PRIMARY) HYPERTENSION 06/23/2016 JANN MILLER FACC, ALI FACP CCDS Ot I25.10 ATHSCL HEART DISEASE OF [place] CORONARY 06/23/2016 JANN MILLER FACC, ALI FACP CCDS Ot I65.23 OCCLUSION AND STENOSIS OF BILATERAL [place] 06/23/2016 JANN MILLER FACC, ALI FACP CCDS Ot J43.8 OTHER EMPHYSEMA 06/23/2016 JANN MILLER FACC, ALI FACP CCDS Ot Z72.0 TOBACCO USE 06/29/2016 Ot 789.30 ABDOMINAL/PELVIC SWELLING,MASS/LUMP UNSP 06/29/2016 Ot 790.29 OTHER ABNORMAL GLUCOSE 06/29/2016 Ot 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 06/29/2016 Ot 780.4 DIZZINESS AND GIDDINESS 06/29/2016 Ot 786.09 RESPIRATORY ABNORM NEC 06/29/2016 Ot 786.50 CHEST PAIN NOS 06/29/2016 Ot V58.66 LONG-TERM (CURRENT) USE OF ASPIRIN 06/29/2016 Ot V58.69 OTH MED,LT,CURRENT USE 06/29/2016 Ot 780.4 DIZZINESS AND GIDDINESS [...] HYPERLIPIDEMIA NEC/NOS 06/29/2016 Ot V76.12 OTH SCREEN MAMMO- MALIGN NEOPLASM OF [place] 06/29/2016 GEN BRAVO CLINICAL SCIENCE CONSULTANT Ot 401.9 HYPERTENSION NOS 06/29/2016 GEN BRAVO CLINICAL SCIENCE CONSULTANT Ot 724.2 LUMBAGO 06/29/2016 GEN BRAVO CLINICAL SCIENCE CONSULTANT Ot V70.0 ROUTINE MEDICAL EXAM 06/29/2016 GEN BRAVO CLINICAL SCIENCE CONSULTANT Ot V76.51 SCREEN MAL NEOP-COLON 06/29/2016 MARILEE MILLER, JAVON Williamson Ot 272.4 HYPERLIPIDEMIA NEC/NOS 06/29/2016 GEOFF MILLER, BHAVESH Ot V72.84 EXAM PRE-OPERATIVE NOS 06/29/2016 LYNSEY HAND CLINICAL SCIENCE CONSULTANT Ot V76.12 OTH SCREEN MAMMO-MALIGN NEOPLASM OF [place] 06/29/2016 LYNSEY HAND CLINICAL SCIENCE CONSULTANT Ot 793.80 UNSPEC ABNORMAL MAMMOGRAM 06/29/2016 REMY MCELROY MD Ot 401.9 HYPERTENSION NOS 06/29/2016 LILIBETH MILLER, REMY Segal Ot 790.29 OTHER ABNORMAL GLUCOSE 06/29/2016 REMY MCELROY MD Ot V72.62 LAB EXAM ORDERED PART OF A ROUTINE GE 06/29/2016 REMY MCELROY MD Ot 272.4 HYPERLIPIDEMIA NEC/NOS 06/29/2016 REMY MCELROY MD Ot 305.1 TOBACCO USE DISORDER 06/29/2016 REMY MCELROY MD A Ot 401.9 HYPERTENSION NOS 06/29/2016 REMY MCELROY MD Ot V72.62 LAB EXAM ORDERED PART OF A ROUTINE GE 06/29/2016 REMY MCELROY MD Ot 272.4 HYPERLIPIDEMIA NEC/NOS 06/29/2016 REMY MCELROY MD Ot 305.1 TOBACCO USE DISORDER 06/29/2016 REMY MCELROY MD A Ot 401.9 HYPERTENSION NOS 06/29/2016 REMY MCELROY MD Ot V82.9 SCREEN FOR CONDITION NOS 06/29/2016 LYNSEY HAND CLINICAL SCIENCE CONSULTANT Ot 793.11 SOLITARY PULMONARY NODULE 06/29/2016 LYNSEY HAND CLINICAL SCIENCE CONSULTANT Ot V76.12 OTH SCREEN MAMMO-MALIGN NEOPLASM OF [place] 06/29/2016 REMY MCELROY MD Ot 305.1 TOBACCO USE DISORDER 06/29/2016 REMY MCELROY MD Ot 401.9 HYPERTENSION NOS 06/29/2016 REMY MCELROY MD Ot 790.29 OTHER ABNORMAL GLUCOSE 06/29/2016 LYNSEY HAND CLINICAL SCIENCE CONSULTANT Ot 793.11 SOLITARY PULMONARY NODULE 06/29/2016 MAYA MORA APRN Ot F17.200 NICOTINE DEPENDENCE, UNSPECIFIED, UNCOMP 06/29/2016 LYNSEY HAND CLINICAL SCIENCE CONSULTANT Ot R91.1 SOLITARY PULMONARY NODULE 06/29/2016 LYNSEY HAND CLINICAL SCIENCE CONSULTANT Ot R91.1 SOLITARY PULMONARY NODULE 06/29/2016 MANUEL HENDRIX APRN Ot M54.5 LOW BACK PAIN 06/29/2016 BOB [...] CHRONIC OBSTRUCTIVE PULMONARY DISEASE, U 06/29/2016 LYNSEY HANDP Ot M85.89 OTH DISRD OF BONE DENSITY AND STRUCTURE, 06/29/2016 JANN MILLER FACC, TABITHA FACP CCDS Ot E78.4 OTHER HYPERLIPIDEMIA 06/29/2016 JANN MILLER FAC, ALI FACP CCDS Ot I10 ESSENTIAL (PRIMARY) HYPERTENSION 06/29/2016 JANN FERMIN, ALI FACP CCDS Ot I25.10 ATHSCL HEART DISEASE OF [place] CORONARY 06/29/2016 JANN FERMIN, ALI FACP CCDS Ot I65.23 OCCLUSION AND STENOSIS OF BILATERAL [place] 06/29/2016 JANN MILLER FACC, ALI FACP CCDS Ot J43.8 OTHER EMPHYSEMA 06/29/2016 JANN MILLER FACC, ALI FACP CCDS Ot Z72.0 TOBACCO USE 06/30/2016 NICHOLAS MILLER, ANALI Hernandez Ot 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 [...] OBSTRUCTIVE PULMONARY DISEASE, U 12/07/2016 TIFFANI DUNLAP MD Ot C34.91 MALIGNANT NEOPLASM OF UNSP PART OF RIGHT 12/07/2016 TIFFANI DUNLAP MD Ot F17.210 NICOTINE DEPENDENCE, CIGARETTES, UNCOMPL 12/07/2016 TIFFANI DUNLAP MD Ot I10 ESSENTIAL (PRIMARY) HYPERTENSION 12/07/2016 TIFFANI DUNLAP MD Ot J44.9 CHRONIC OBSTRUCTIVE [...] BONE DENSITY AND STRUCTURE, 12/24/2016 JANN MILLER FACC, ALI FACP CCDS Ot E78.4 OTHER HYPERLIPIDEMIA 12/24/2016 JANN MILLER FACC, ALI FACP CCDS Ot I10 ESSENTIAL (PRIMARY) HYPERTENSION 12/24/2016 JANN MILLER FACC, ALI FACP CCDS Ot I25.10 ATHSCL HEART DISEASE OF [place] CORONARY 12/24/2016 JANN MILLER FACC, ALI FACP CCDS Ot I65.23 OCCLUSION AND STENOSIS OF BILATERAL [place] 12/24/2016 JANN MILLER FACC, ALI FACP CCDS Ot J43.8 OTHER EMPHYSEMA 12/24/2016 JANN MILLER FACC, ALI FACP CCDS Ot Z72.0 TOBACCO USE 12/24/2016 NICHOLAS MILLER, ANALI Hernandez Ot 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 NEOPLASM OF UPPER LOBE, LEFT B 12/24/2016 TIFFANI DUNLAP MD Ot C34.91 MALIGNANT NEOPLASM [...] NICOTINE DEPENDENCE, CIGARETTES, UNCOMPL 12/25/2016 TIFFANI DUNLAP MD, Ot I10 ESSENTIAL (PRIMARY) HYPERTENSION 12/25/2016 TIFFANI DUNLAP MD, Ot J44.9 CHRONIC OBSTRUCTIVE PULMONARY DISEASE, U 12/30/2016 MANUEL HENDRIX APRN Ot M54.5 LOW BACK PAIN 12/30/2016 BOB MOSELEY DO Ot 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 NEOPLASM OF UPPER LOBE, LEFT B 12/30/2016 BOB MOSELEY DO Ot R91.1 SOLITARY PULMONARY NODULE 12/30/[address] Ot Z72.0 TOBACCO USE 12/30/2016 MAYA MORA APRN Ot 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 NEOPLASM OF UPPER LOBE, UNSP B 12/30/2016 MAYA MORA APRN Ot R91.1 SOLITARY PULMONARY NODULE 12/30/2016 Ot Z12.31 ENCNTR SCREEN MAMMOGRAM FOR MALIGNANT NE 12/30/2016 TIFFANI DUNLAP MD Ot 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 NEOPLASM OF UPPER LOBE, LEFT B 12/30/2016 TIFFANI DUNLAP MD Ot R59.0 LOCALIZED ENLARGED LYMPH NODES 12/30/2016 LYNSEY HAND CLINICAL SCIENCE CONSULTANT Ot M85.89 OT DISRD OF BONE DENSITY AND STRUCTURE, 12/30/2016 JANN MILLER FACC, ALI FACP CCDS Ot E78.4 OTHER HYPERLIPIDEMIA 12/30/2016 JANN MILLER FACC, ALI FACP CCDS Ot I10 ESSENTIAL (PRIMARY) HYPERTENSION 12/30/2016 JANN MILLER FACC, ALI FACP CCDS Ot I25.10 ATHSCL HEART DISEASE OF [place] CORONARY 12/30/2016 JANN MILLER FACC, ALI FACP [...] NEOPLASM OF UNSP PART OF RIGHT 12/30/2016 TIFFANI DUNLAP MD Ot F17.210 NICOTINE DEPENDENCE, CIGARETTES, UNCOMPL 12/30/2016 TIFFANI DUNLAP MD Ot I10 ESSENTIAL (PRIMARY) HYPERTENSION 12/30/2016 TIFFANI DUNLAP MD Ot J44.9 CHRONIC OBSTRUCTIVE PULMONARY DISEASE, U 01/01/2017 TIFFANI DUNLAP MD, Ot 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 NEOPLASM OF UPPER LOBE, LEFT B 01/01/2017 TIFFANI DUNLAP MD, Ot 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 NEOPLASM OF UPPER LOBE, LEFT B 01/05/2017 XUN MD, THOMPSON-SIMON Ot 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 NEOPLASM OF UPPER LOBE, [...] I10 ESSENTIAL (PRIMARY) HYPERTENSION 02/28/2017 TIFFANI DUNLAP MD Ot J44.9 CHRONIC OBSTRUCTIVE [...] LOCALIZED ENLARGED LYMPH NODES 03/22/2017 LYNSEY HAND CLINICAL SCIENCE CONSULTANT Ot M85.89 OT DISRD OF BONE DENSITY AND STRUCTURE, 03/22/2017 JANN MILLER FAC, ALI FACP CCDS Ot E78.4 OTHER HYPERLIPIDEMIA 03/22/2017 JANN MILLER FAC, ALI FACP CCDS Ot I10 ESSENTIAL (PRIMARY) HYPERTENSION 03/22/2017 JANN MILLER FAC, ALI FACP CCDS Ot I25.10 ATHSCL HEART DISEASE OF [place] CORONARY 03/22/2017 JANN MILLER FAC, ALI FACP CCDS Ot I65.23 OCCLUSION AND STENOSIS OF BILATERAL [place] 03/22/2017 JANN MILLER [facility], ALI FACP CCDS Ot J43.8 OTHER EMPHYSEMA 03/22/2017 JANN MILLER [facility], ALI FACP CCDS Ot Z72.0 TOBACCO USE 03/22/2017 NICHOLAS MILLER, ANALI Hernandez Ot 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 NEOPLASM OF UPPER LOBE, LEFT B 03/22/2017 TIFFANI DUNLAP MD, Ot 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 NEOPLASM OF UPPER LOBE, LEFT B 03/22/2017 MANUEL HENDRIX APRN Ot Z12.31 ENCNTR SCREEN MAMMOGRAM FOR MALIGNANT NE 03/22/2017 TIFFANI DUNLAP MD Ot C34.91 MALIGNANT NEOPLASM OF UNSP PART OF RIGHT 03/22/2017 TIFFANI DUNLAP MD Ot F17.210 NICOTINE DEPENDENCE, CIGARETTES, UNCOMPL 03/22/2017 TIFFANI DUNLAP MD Ot I10 ESSENTIAL (PRIMARY) HYPERTENSION 03/22/2017 TIFFANI DUNLAP MD, Ot J44.9 CHRONIC OBSTRUCTIVE PULMONARY DISEASE, U 03/23/2017 TIFFANI DUNLAP MD, Ot C34.91 MALIGNANT NEOPLASM OF UNSP PART OF RIGHT 03/23/2017 TIFFANI DUNLAP MD Ot F17.210 NICOTINE DEPENDENCE, CIGARETTES, UNCOMPL 03/23/2017 TIFFANI DUNLAP MD, Ot I10 ESSENTIAL (PRIMARY) HYPERTENSION 03/23/2017 TIFFANI DUNLAP MD Ot J44.9 CHRONIC OBSTRUCTIVE PULMONARY DISEASE, U 03/23/2017 TIFFANI DUNLAP MD Ot 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.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 RUNNING 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 (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 04/13/2017 TIFFANI DUNLAP MD Ot 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 NEOPLASM OF UPPER LOBE, UNSP B 04/13/2017 TIFFANI DUNLAP MD Ot R91.1 SOLITARY PULMONARY NODULE 04/13/2017 TIFFANI DUNLAP MD Ot R93.7 ABNORMAL FINDINGS ON DIAGNOSTIC IMAGING 04/23/2017 TIFFANI DUNLAP MD Ot C34.91 MALIGNANT NEOPLASM OF UNSP PART OF RIGHT 04/23/2017 TIFFANI DUNLAP MD Ot F17.210 NICOTINE DEPENDENCE, CIGARETTES, UNCOMPL 04/23/2017 TIFFANI DUNLAP MD Ot I10 ESSENTIAL (PRIMARY) HYPERTENSION 04/23/2017 TIFFANI DUNLAP MD Ot J44.9 CHRONIC OBSTRUCTIVE PULMONARY DISEASE, U 04/23/2017 TIFFANI DUNLAP MD Ot Z79.899 OTHER RUNNING RIGGER (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 THERAPY 04/30/2017 TIFFANI DUNLAP MD Ot 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 NEOPLASM OF UPPER LOBE, UNSP B 04/30/2017 TIFFANI DUNLAP MD Ot R91.1 SOLITARY PULMONARY NODULE 04/30/2017 TIFFANI DUNLAP MD Ot R93.7 ABNORMAL FINDINGS ON DIAGNOSTIC IMAGING 05/01/2017 TIFFANI DUNLAP MD Ot C34.91 MALIGNANT NEOPLASM OF UNSP PART OF RIGHT 05/01/2017 TIFFANI DUNLAP MD Ot F17.210 NICOTINE DEPENDENCE, CIGARETTES, UNCOMPL 05/01/2017 TIFFANI DUNLAP MD Ot I10 ESSENTIAL (PRIMARY) HYPERTENSION 05/01/2017 TIFFANI DUNLAP MD Ot J44.9 CHRONIC OBSTRUCTIVE PULMONARY DISEASE, U 05/01/2017 TIFFANI DUNLAP MD Ot Z79.899 OTHER [facility] (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 THERAPY 06/02/2017 RENETTA GONZALES MD K Ot C34.90 MALIGNANT NEOPLASM OF UNSP PART OF UNSP 06/02/2017 LUCIANA GONZALES MDMAL K Ot R91.1 SOLITARY PULMONARY NODULE 06/22/2017 RENETTA GONZALES MD K Ot C34.90 MALIGNANT NEOPLASM OF UNSP PART OF UNSP 06/22/2017 LUCIANA GONZALES MDMAL K Ot R91.1 SOLITARY PULMONARY NODULE 07/27/2017 LUCIANA GONZALES MDMAL K Ot C34.90 MALIGNANT NEOPLASM OF UNSP PART OF UNSP 07/27/2017 VEERAMACHANENI MD, RENETTA K Ot R91.1 SOLITARY PULMONARY NODULE 07/27/2017 TIFFANI DUNLAP MD Ot 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 NEOPLASM OF UPPER LOBE, LEFT B 07/27/2017 TIFFANI DUNLAP MD Ot E78.5 HYPERLIPIDEMIA, UNSPECIFIED 07/27/2017 TIFFANI DUNLAP MD Ot F17.210 NICOTINE DEPENDENCE, CIGARETTES, UNCOMPL 07/27/2017 TIFFANI DUNLAP MD Ot I10 ESSENTIAL (PRIMARY) HYPERTENSION 07/27/2017 TIFFANI DUNLAP MD Ot I25.10 ATHSCL HEART DISEASE OF [place] CORONARY 07/27/2017 TIFFANI DUNLAP MD Ot I45.10 UNSPECIFIED RIGHT BUNDLE-BRANCH BLOCK 07/27/2017 TIFFANI DUNLAP MD Ot J44.9 CHRONIC OBSTRUCTIVE PULMONARY DISEASE, U 07/27/2017 TIFFANI DUNLAP MD Ot R91.1 SOLITARY PULMONARY NODULE 07/27/2017 TIFFANI DUNLAP MD Ot Z79.82 [facility] (CURRENT) USE OF ASPIRIN 07/27/2017 TIFFANI DUNLAP MD Ot Z79.899 OTHER [facility] (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 THERAPY 08/10/2017 JANN MILLER FACC, TABITHA FACP CCDS Ot E78.5 HYPERLIPIDEMIA, UNSPECIFIED 08/10/2017 JANN MILLER FACC, TABITHA FERMINP CCDS Ot F17.210 NICOTINE DEPENDENCE, CIGARETTES, UNCOMPL 08/10/2017 JANN MILLER FACC, ALI FACP CCDS Ot I10 ESSENTIAL (PRIMARY) HYPERTENSION 08/10/2017 JANN MILLER FACC, ALI FACP CCDS Ot I25.10 ATHSCL HEART DISEASE OF [place] CORONARY 08/10/2017 JANN MILLER FACC, ALI FACP CCDS Ot I45.10 UNSPECIFIED RIGHT BUNDLE-BRANCH BLOCK 08/10/2017 JANN MILLER FACC, ALI FACP CCDS Ot I48.1 PERSISTENT ATRIAL FIBRILLATION 08/10/2017 JANN MILLER FACC, ALI FACP CCDS Ot I65.23 OCCLUSION AND STENOSIS OF BILATERAL [place] 08/10/2017 JANN MILLER FACC, ALI FACP CCDS Ot I70.0 ATHEROSCLEROSIS OF [place] 08/10/2017 JANN MILLER FACC, ALI FACP CCDS Ot Z79.82 [facility]NING [employer]IGGER (CURRENT) USE OF ASPIRIN 08/10/2017 JANN MILLER FACC, ALI FACP CCDS Ot Z79.899 OTHER [facility] (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 THERAPY 08/10/2017 JANN MILLER FAC, ALI FACP CCDS Ot Z82.49 FAMILY HX OF ISCHEM HEART DIS AND OTH DI 08/13/2017 JANN MILLER FACC, ALI FACP CCDS Ot E78.5 HYPERLIPIDEMIA, UNSPECIFIED 08/13/2017 JANN MILLER FACC, ALI FACP CCDS Ot F17.210 NICOTINE DEPENDENCE, CIGARETTES, UNCOMPL 08/13/2017 JANN MILLER FACC, ALI FACP CCDS Ot I10 ESSENTIAL (PRIMARY) HYPERTENSION 08/13/2017 JANN MD FACC, ALI FACP CCDS Ot I25.10 ATHSCL HEART DISEASE OF [place] CORONARY 08/13/2017 JANN MD FACC, ALI FACP CCDS Ot I45.10 UNSPECIFIED RIGHT BUNDLE-BRANCH BLOCK 08/13/2017 JANN MILLER FACC, ALI FACP CCDS Ot I48.1 PERSISTENT ATRIAL FIBRILLATION 08/13/2017 JANN MILLER FACC, ALI FACP CCDS Ot I65.23 OCCLUSION AND STENOSIS OF BILATERAL [place] 08/13/2017 JANN MILLER FACC, ALI FACP CCDS Ot I70.0 ATHEROSCLEROSIS OF [place] 08/13/2017 JANN MILLER FACC, ALI FACP CCDS Ot Z79.82 [facility] (CURRENT) USE OF ASPIRIN 08/13/2017 JANN MILLER FAC, ALI FACP CCDS Ot Z79.899 OTHER [employer]NING RIGGER (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 THERAPY 08/13/2017 JANN MILLER FACC, ALI FACP CCDS Ot Z82.49 FAMILY HX OF ISCHEM HEART DIS AND OTH DI 08/24/2017 TIFFANI DUNLAP MD Ot 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 NEOPLASM OF UPPER LOBE, LEFT B 08/24/2017 TIFFANI DUNLAP MD Ot E78.5 HYPERLIPIDEMIA, UNSPECIFIED 08/24/2017 TIFFANI DUNLAP MD Ot F17.210 NICOTINE DEPENDENCE, CIGARETTES, UNCOMPL 08/24/2017 TIFFANI DUNLAP MD Ot I10 ESSENTIAL (PRIMARY) HYPERTENSION 08/24/2017 TIFFANI DUNLAP MD Ot I25.10 ATHSCL HEART DISEASE OF [place] CORONARY 08/24/2017 TIFFANI DUNLAP MD Ot I45.10 UNSPECIFIED RIGHT BUNDLE-BRANCH BLOCK 08/24/2017 TIFFANI DUNLAP MD Ot J44.9 CHRONIC OBSTRUCTIVE PULMONARY DISEASE, U 08/24/2017 TIFFANI DUNLAP MD Ot R91.1 SOLITARY PULMONARY NODULE 08/24/2017 TIFFANI DUNLAP MD Ot Z79.82 RUNNING RIGGER (CURRENT) USE OF ASPIRIN 08/24/2017 TIFFANI DUNLAP MD Ot Z79.899 OTHER [facility] (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 THERAPY 09/01/2017 TIFFANI DUNLAP MD Ot 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 NEOPLASM OF UPPER LOBE, LEFT B 09/01/2017 TIFFANI DUNLAP MD Ot E78.5 HYPERLIPIDEMIA, UNSPECIFIED 09/01/2017 TIFFANI DUNLAP MD Ot F17.210 NICOTINE DEPENDENCE, CIGARETTES, UNCOMPL 09/01/2017 TIFFANI DUNLAP MD Ot I10 ESSENTIAL (PRIMARY) HYPERTENSION 09/01/2017 TIFFANI DUNLAP MD, Ot I25.10 ATHSCL HEART DISEASE OF [place] CORONARY 09/01/2017 TIFFANI DUNLAP MD Ot I45.10 UNSPECIFIED RIGHT BUNDLE-BRANCH BLOCK 09/01/2017 TIFFANI DUNLAP MD, Ot J44.9 CHRONIC OBSTRUCTIVE PULMONARY DISEASE, U 09/01/2017 TIFFANI DUNLAP MD Ot R91.1 SOLITARY PULMONARY NODULE 09/01/2017 TIFFANI DUNLAP MD Ot Z79.82 [facility] (CURRENT) USE OF ASPIRIN 09/01/2017 TIFFANI DUNLAP MD, Ot Z79.899 OTHER [facility] (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 THERAPY 10/21/2017 PARDEEP SPIVEY MD Ot G47.9 SLEEP DISORDER, UNSPECIFIED 10/21/2017 PARDEEP SPIVEY MD Ot G47.9 SLEEP DISORDER, UNSPECIFIED 11/01/2017 PARDEEP SPIVEY MD Ot G47.33 OBSTRUCTIVE SLEEP APNEA (ADULT) (PEDIATR 11/25/2017 TIFFANI DUNLAP MD Ot 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 NEOPLASM OF UPPER LOBE, LEFT B 11/25/2017 TIFFANI DUNLAP MD, Ot E78.5 HYPERLIPIDEMIA, UNSPECIFIED 11/25/2017 TIFFANI DUNLAP MD Ot F17.210 NICOTINE DEPENDENCE, CIGARETTES, UNCOMPL 11/25/2017 TIFFANI DUNLAP MD Ot I10 ESSENTIAL (PRIMARY) HYPERTENSION 11/25/2017 TIFFANI DUNLAP MD Ot I25.10 ATHSCL HEART DISEASE OF [place] CORONARY 11/25/2017 TIFFANI DUNLAP MD Ot I45.10 UNSPECIFIED RIGHT BUNDLE-BRANCH BLOCK 11/25/2017 TIFFANI DUNLAP MD Ot J44.9 CHRONIC OBSTRUCTIVE PULMONARY DISEASE, U 11/25/2017 TIFFANI DUNLAP MD Ot R91.1 SOLITARY PULMONARY NODULE 11/25/2017 TIFFANI DUNLAP MD Ot Z79.82 [facility] (CURRENT) USE OF ASPIRIN 11/25/2017 TIFFANI DUNLAP MD Ot Z79.899 OTHER [facility] (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 THERAPY 11/25/2017 ALLYSSA MILLER, PARDEEP Lowery Ot G47.33 OBSTRUCTIVE SLEEP APNEA (ADULT) (PEDIATR 11/26/2017 LYNSEY HANDP Ot I65.21 OCCLUSION AND STENOSIS OF RIGHT CAROTID 11/26/2017 LYNSEY HANDP Ot M46.87 OT INFLAMMATORY SPONDYLOPATHIES, LUMBOS 11/26/2017 LYNSEY HAND Ot M47.816 SPONDYLOSIS W/O MYELOPATHY OR RADICULOPA 11/26/2017 LYNSEY HANDP Ot I65.21 OCCLUSION AND STENOSIS OF RIGHT CAROTID 11/26/2017 LYNSEY HANDP Ot M46.87 OT INFLAMMATORY SPONDYLOPATHIES, LUMBOS 11/26/2017 LYNSEY HANDP Ot M47.816 SPONDYLOSIS W/O MYELOPATHY OR RADICULOPA 11/27/2017 ALLYSSA MILLER, PARDEEP Lowery Ot G47.33 OBSTRUCTIVE SLEEP APNEA (ADULT) (PEDIATR 11/29/2017 PARDEEP SPIVEY MD Ot G47.33 OBSTRUCTIVE SLEEP APNEA (ADULT) (PEDIATR 12/01/2017 LYNSEY HANDP Ot I65.21 OCCLUSION AND STENOSIS OF RIGHT CAROTID 12/01/2017 LYNSEY HANDP Ot M46.87 OT INFLAMMATORY SPONDYLOPATHIES, LUMBOS 12/01/2017 LYNSEY HANDP Ot M47.816 SPONDYLOSIS W/O MYELOPATHY OR RADICULOPA 12/02/2017 PARDEEP SPIVEY MD Ot G47.33 OBSTRUCTIVE SLEEP APNEA (ADULT) (PEDIATR 12/14/2017 LYNSEY HAND Ot M43.12 SPONDYLOLISTHESIS, CERVICAL REGION 12/14/2017 LYNSEY HANDP Ot M46.87 OT INFLAMMATORY SPONDYLOPATHIES, LUMBOS 12/14/2017 HAND, LYNSEY M CLINICAL SCIENCE CONSULTANT Ot M47.812 SPONDYLOSIS W/O MYELOPATHY OR RADICULOPA 12/14/2017 [place]YNSEY HAND CLINICAL SCIENCE CONSULTANT Ot M51.27 OTHER INTERVERTEBRAL DISC DISPLACEMENT, 12/14/2017 [place]YNSEY HAND CLINICAL SCIENCE CONSULTANT Ot M51.36 OTHER INTERVERTEBRAL DISC DEGENERATION, 12/14/2017 [place]YNSEY HAND CLINICAL SCIENCE CONSULTANT Ot M71.38 OTHER BURSAL CYST, OTHER SITE 12/14/2017 LYNSEY HAND CLINICAL SCIENCE CONSULTANT Ot M99.71 CONN TISS AND DISC STENOSIS OF INTVRT FO 12/14/2017 LYNSEY HAND CLINICAL SCIENCE CONSULTANT Ot M99.73 CONN TISS AND DISC STENOS OF INTVRT FORA 12/15/2017 LYNSEY HANDP Ot M43.12 SPONDYLOLISTHESIS, CERVICAL REGION 12/15/2017 LYNSEY HAND CLINICAL SCIENCE CONSULTANT Ot M46.87 OTH INFLAMMATORY SPONDYLOPATHIES, LUMBOS 12/15/2017 LYNSEY HANDP Ot M47.812 SPONDYLOSIS W/O MYELOPATHY OR RADICULOPA 12/15/2017 LYNSEY HAND CLINICAL SCIENCE CONSULTANT Ot M51.27 OTHER INTERVERTEBRAL DISC DISPLACEMENT, 12/15/2017 LYNSEY HAND CLINICAL SCIENCE CONSULTANT Ot M51.36 OTHER INTERVERTEBRAL DISC DEGENERATION, 12/15/2017 LYNSEY HAND CLINICAL SCIENCE CONSULTANT Ot M71.38 OTHER BURSAL CYST, OTHER SITE 12/15/2017 LYNSEY HAND CLINICAL SCIENCE CONSULTANT Ot M99.71 CONN TISS AND DISC STENOSIS OF INTVRT FO 12/15/2017 LYNSEY HAND CLINICAL SCIENCE CONSULTANT Ot M99.73 CONN TISS AND DISC STENOS OF INTVRT FORA 12/15/2017 LYNSEY HAND CLINICAL SCIENCE CONSULTANT Ot I65.21 OCCLUSION AND STENOSIS OF RIGHT CAROTID 12/15/2017 LYNSEY HAND CLINICAL SCIENCE CONSULTANT Ot M46.87 OTH INFLAMMATORY SPONDYLOPATHIES, LUMBOS 12/15/2017 LYNSEY HAND CLINICAL SCIENCE CONSULTANT Ot M47.816 SPONDYLOSIS W/O MYELOPATHY OR RADICULOPA 12/31/2017 LYNSEY HANDP Ot M43.12 SPONDYLOLISTHESIS, CERVICAL REGION 12/31/2017 LYNSEY HAND CLINICAL SCIENCE CONSULTANT Ot M46.87 OTH INFLAMMATORY SPONDYLOPATHIES, LUMBOS 12/31/2017 LYNSEY HAND CLINICAL SCIENCE CONSULTANT Ot M47.812 SPONDYLOSIS W/O MYELOPATHY OR RADICULOPA 12/31/2017 LYNSEY HAND CLINICAL SCIENCE CONSULTANT Ot M51.27 OTHER INTERVERTEBRAL DISC DISPLACEMENT, 12/31/2017 LYNSEY HAND CLINICAL SCIENCE CONSULTANT Ot M51.36 OTHER INTERVERTEBRAL DISC DEGENERATION, 12/31/2017 LYNSEY HAND CLINICAL SCIENCE CONSULTANT Ot M71.38 OTHER BURSAL CYST, OTHER SITE 12/31/2017 LYNSEY HAND CLINICAL SCIENCE CONSULTANT Ot M99.71 CONN TISS AND DISC STENOSIS OF INTVRT FO 12/31/2017 LYNSEY HAND CLINICAL SCIENCE CONSULTANT Ot M99.73 CONN TISS AND DISC STENOS OF INTVRT FORA 02/17/2018 LYNSEY HAND CLINICAL SCIENCE CONSULTANT Ot I65.21 OCCLUSION AND STENOSIS OF RIGHT CAROTID 02/17/2018 LYNSEY HAND CLINICAL SCIENCE CONSULTANT Ot M46.87 OTH INFLAMMATORY SPONDYLOPATHIES, LUMBOS 02/17/2018 LYNSEY HAND CLINICAL SCIENCE CONSULTANT Ot M47.816 SPONDYLOSIS W/O MYELOPATHY OR RADICULOPA 03/25/2018 Ot V76.12 OTH SCREEN MAMMO- MALIGN NEOPLASM OF JOSIAH 03/25/2018 SHELLYMATEOGEN CLINICAL SCIENCE CONSULTANT Ot 401.9 HYPERTENSION NOS 03/25/2018 GEN BRAVO CLINICAL SCIENCE CONSULTANT Ot 724.2 LUMBAGO 03/25/2018 GEN BRAVO CLINICAL SCIENCE CONSULTANT Ot V70.0 ROUTINE MEDICAL EXAM 03/25/2018 SHELLY GEN CLINICAL SCIENCE CONSULTANT Ot V76.51 SCREEN MAL NEOP-COLON 03/25/2018 JAVON POOLE MD Ot 272.4 HYPERLIPIDEMIA NEC/NOS 03/25/2018 BHAVESH TELLEZ MD Ot V72.84 EXAM PRE-OPERATIVE NOS 03/25/2018 LYNSEY HAND CLINICAL SCIENCE CONSULTANT Ot V76.12 OTH SCREEN MAMMO-MALIGN NEOPLASM OF [place] 03/25/2018 LYNSEY HAND CLINICAL SCIENCE CONSULTANT Ot 793.80 UNSPEC ABNORMAL MAMMOGRAM 03/25/2018 LILIBETH MILLER, REMY Segal Ot 401.9 HYPERTENSION NOS 03/25/2018 REMY MCELROY MD Ot 790.29 OTHER ABNORMAL GLUCOSE 03/25/2018 REMY MCELROY MD Ot V72.62 LAB EXAM ORDERED PART OF A ROUTINE GE 03/25/2018 LILIBETH MILLER, REMY Segal Ot 272.4 HYPERLIPIDEMIA NEC/NOS 03/25/2018 LILIBETH MILLER, REMY A Ot 305.1 TOBACCO USE DISORDER 03/25/2018 LILIBETH MILLER, REMY A Ot 401.9 HYPERTENSION NOS 03/25/2018 REMY MCELROY MD Ot V72.62 LAB EXAM ORDERED PART OF A ROUTINE GE 03/25/2018 REMY MCELROY MD Ot 272.4 HYPERLIPIDEMIA NEC/NOS 03/25/2018 REMY MCELROY MD A Ot 305.1 TOBACCO USE DISORDER 03/25/2018 LILIBETH MILLER, REMY A Ot 401.9 HYPERTENSION NOS 03/25/2018 LILIBETH MILLER, REMY Segal Ot V82.9 SCREEN FOR CONDITION NOS 03/25/2018 LYNSEY HAND CLINICAL SCIENCE CONSULTANT Ot 793.11 SOLITARY PULMONARY NODULE 03/25/2018 LYNSEY HANDP Ot V76.12 OTH SCREEN MAMMO-MALIGN NEOPLASM OF [place] 03/25/2018 REMY MCELROY MD Ot 305.1 TOBACCO USE DISORDER 03/25/2018 LILIBETH MILLER, REMY A Ot 401.9 HYPERTENSION NOS 03/25/2018 LILIBETH MILLER, REMY A Ot 790.29 OTHER ABNORMAL GLUCOSE 03/25/2018 LYNSEY HAND CLINICAL SCIENCE CONSULTANT Ot 793.11 SOLITARY PULMONARY NODULE 03/25/2018 MAYA MORA APRN Ot F17.200 NICOTINE DEPENDENCE, UNSPECIFIED, UNCOMP 03/25/2018 LYNSEY HAND CLINICAL SCIENCE CONSULTANT Ot R91.1 SOLITARY PULMONARY NODULE 03/25/2018 LYNSEY HAND CLINICAL SCIENCE CONSULTANT Ot R91.1 SOLITARY PULMONARY NODULE 03/25/2018 MANUEL HENDRIX MANAGER CARE Ot M54.5 LOW BACK PAIN 03/25/2018 BOB MOSELEY DO Ot 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 NEOPLASM OF UPPER LOBE, LEFT B 03/25/2018 BOB MOSELEY DO Ot R91.1 SOLITARY PULMONARY NODULE 03/25/2018 BOB MOSELEY DO Ot Z72.0 TOBACCO USE 03/25/2018 MAYA MORA APRN Ot 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 NEOPLASM OF UPPER LOBE, UNSP B 03/25/2018 MAYA MORA APRN Ot R91.1 SOLITARY PULMONARY NODULE 03/25/2018 Ot Z12.31 ENCNTR SCREEN MAMMOGRAM FOR MALIGNANT NE 03/25/2018 TIFFANI DUNLAP MD Ot 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 NEOPLASM OF UPPER LOBE, LEFT B 03/25/2018 TIFFANI DUNLAP MD Ot R59.0 LOCALIZED ENLARGED LYMPH NODES 03/25/2018 LYNSEY HAND Ot M85.89 OTH DISRD OF BONE DENSITY AND STRUCTURE, 03/25/2018 JANN MILLER FACC, ALI FACP CCDS Ot E78.4 OTHER HYPERLIPIDEMIA 03/25/2018 JANN MILLER FACC, ALI FACP CCDS Ot I10 ESSENTIAL (PRIMARY) HYPERTENSION 03/25/2018 JANN MILLER FACC, ALI FACP CCDS Ot I25.10 ATHSCL HEART DISEASE OF [place] CORONARY 03/25/2018 JANN MILLER FACC, ALI FACP CCDS Ot I65.23 OCCLUSION AND STENOSIS OF BILATERAL MEJ[place] 03/25/2018 JANN MILLER FACC, ALI FACP CCDS Ot J43.8 OTHER EMPHYSEMA 03/25/2018 JANN MILLER FACC, ALI FACP CCDS Ot Z72.0 TOBACCO USE 03/25/2018 NICHOLAS MILLER, ANALI Hernandez Ot 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 NEOPLASM OF UPPER LOBE, LEFT B 03/25/2018 TIFFANI DUNLAP MD, Ot 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 NEOPLASM OF UPPER LOBE, LEFT B 03/25/2018 TIFFANI DUNLAP MD, Ot 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 NEOPLASM OF UPPER LOBE, UNSP B 03/25/2018 TIFFANI DUNLAP MD Ot R91.1 SOLITARY PULMONARY NODULE 03/25/2018 TIFFANI DUNLAP MD Ot R93.7 ABNORMAL FINDINGS ON DIAGNOSTIC IMAGING 03/25/2018 MANUEL HENDRIX APRN Ot Z12.31 ENCNTR SCREEN MAMMOGRAM FOR MALIGNANT NE 03/25/2018 RENETTA GONZALES MD Ot C34.90 MALIGNANT NEOPLASM OF UNSP PART OF UNSP 03/25/2018 RENETTA GONZALES MD Ot R91.1 SOLITARY PULMONARY NODULE 03/25/2018 TIFFANI DUNLAP MD, Ot 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 NEOPLASM OF UPPER LOBE, LEFT B 03/25/2018 TIFFANI DUNLAP MD Ot E78.5 HYPERLIPIDEMIA, UNSPECIFIED 03/25/2018 TIFFANI DUNLAP MD Ot F17.210 NICOTINE DEPENDENCE, CIGARETTES, UNCOMPL 03/25/2018 TIFFANI DUNLAP MD Ot I10 ESSENTIAL (PRIMARY) HYPERTENSION 03/25/2018 TIFFANI DUNLAP MD Ot I25.10 ATHSCL HEART DISEASE OF [place] CORONARY 03/25/2018 TIFFANI DUNLAP MD Ot I45.10 UNSPECIFIED RIGHT BUNDLE-BRANCH BLOCK 03/25/2018 TIFFANI DUNLAP MD Ot J44.9 CHRONIC OBSTRUCTIVE PULMONARY DISEASE, U 03/25/2018 TIFFANI DUNLAP MD Ot R91.1 SOLITARY PULMONARY NODULE 03/25/2018 TIFFANI DUNLAP MD Ot Z79.82 [facility] (CURRENT) USE OF ASPIRIN 03/25/2018 TIFFANI DUNLAP MD, Ot Z79.899 OTHER [facility] (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 THERAPY 03/25/2018 LYNSEY HANDP Ot I65.21 OCCLUSION AND STENOSIS OF RIGHT CAROTID 03/25/2018 LYNSEY HANDP Ot M46.87 OTH INFLAMMATORY SPONDYLOPATHIES, LUMBOS 03/25/2018 LYNSEY HANDP Ot M47.816 SPONDYLOSIS W/O MYELOPATHY OR RADICULOPA 03/25/2018 LYNSEY HAND CLINICAL SCIENCE CONSULTANT Ot M43.12 SPONDYLOLISTHESIS, CERVICAL REGION 03/25/2018 LYNSEY HAND CLINICAL SCIENCE CONSULTANT Ot M46.87 OTH INFLAMMATORY SPONDYLOPATHIES, LUMBOS 03/25/2018 LYNSEY HAND CLINICAL SCIENCE CONSULTANT Ot M47.812 SPONDYLOSIS W/O MYELOPATHY OR RADICULOPA 03/25/2018 LYNSEY HAND CLINICAL SCIENCE CONSULTANT Ot M51.27 OTHER INTERVERTEBRAL DISC DISPLACEMENT, 03/25/2018 LYNSEY HANDP Ot M51.36 OTHER INTERVERTEBRAL DISC DEGENERATION, 03/25/2018 LYNSEY HAND CLINICAL SCIENCE CONSULTANT Ot M71.38 OTHER BURSAL CYST, OTHER SITE 03/25/2018 LYNSEY HAND CLINICAL SCIENCE CONSULTANT Ot M99.71 CONN TISS AND DISC STENOSIS OF INTVRT FO 03/25/2018 LYNSEY HAND CLINICAL SCIENCE CONSULTANT Ot M99.73 CONN TISS AND DISC STENOS OF INTVRT FORA 04/22/2018 JORDI CANTU Ot M48.061 SPINAL STENOSIS, LUMBAR REGION WITHOUT N 04/22/2018 JORDI CANTU Ot M54.16 RADICULOPATHY, LUMBAR REGION 05/04/2018 ALL PEREZ, NAVINER Ade Ot M48.061 SPINAL STENOSIS, LUMBAR REGION WITHOUT N 05/04/2018 CARRIZALES ANA, NAVINER D Ot M54.16 RADICULOPATHY, LUMBAR REGION 05/04/2018 CARRIZALES PA, ONUROPHER D Ot M48.061 SPINAL STENOSIS, LUMBAR REGION WITHOUT N 05/04/2018 CARRIZALES PA, ONUROPHER D Ot M54.16 RADICULOPATHY, LUMBAR REGION 05/06/2018 CARRIZALES ANA, NAVINER D Ot M48.061 SPINAL STENOSIS, LUMBAR REGION WITHOUT N 05/06/2018 CARRIZALES ANA, NAVINER D Ot M54.16 RADICULOPATHY, LUMBAR REGION 05/12/2018 CARRIZALES ANA, NAVINER D Ot M48.061 SPINAL STENOSIS, LUMBAR REGION WITHOUT N 05/12/2018 CARRIZALES PA, ONUROPHER D Ot M54.16 RADICULOPATHY, LUMBAR REGION 06/30/2018 LYNSEY HAND CLINICAL SCIENCE CONSULTANT Ot Z12.31 ENCNTR SCREEN MAMMOGRAM FOR MALIGNANT NE 07/18/2018 LYNSEY HAND CLINICAL SCIENCE CONSULTANT Ot Z12.31 ENCNTR SCREEN MAMMOGRAM FOR MALIGNANT NE 08/17/2018 LYNSEY HAND CLINICAL SCIENCE CONSULTANT Ot Z12.31 ENCNTR SCREEN MAMMOGRAM FOR MALIGNANT NE 09/12/2018 LYNSEY HAND CLINICAL SCIENCE CONSULTANT Ot C34.90 MALIGNANT NEOPLASM OF UNSP PART OF UNSP 09/22/2018 LYNSEY HAND CLINICAL SCIENCE CONSULTANT Ot I70.213 ATHSCL [place] ARTERIES OF EXTRM W INTRMT 09/27/2018 LYNSEY HAND CLINICAL SCIENCE CONSULTANT Ot I73.9 PERIPHERAL VASCULAR DISEASE, UNSPECIFIED 09/27/2018 LYNSEY HAND CLINICAL SCIENCE CONSULTANT Ot Z72.0 TOBACCO USE 10/19/2018 LYNSEY HAND CLINICAL SCIENCE CONSULTANT Ot I73.9 PERIPHERAL VASCULAR DISEASE, UNSPECIFIED 10/19/2018 LYNSEY HAND CLINICAL SCIENCE CONSULTANT Ot Z72.0 TOBACCO USE 02/16/2019 REGINALDO HARDIN MD Ot C34.92 MALIGNANT NEOPLASM OF UNSP PART OF LEFT 02/16/2019 REGINALDO HARDIN MD Ot Z90.2 ACQUIRED ABSENCE OF LUNG [PART OF] 03/10/2019 REGINALDO HARDIN MD Ot C34.92 MALIGNANT NEOPLASM OF UNSP PART OF LEFT 03/10/2019 WILFRED MILLER, REGINALDO Way Ot Z90.2 ACQUIRED ABSENCE OF LUNG [PART OF] 03/27/2019 DANIEL THOMPSON DO Ot E78.5 HYPERLIPIDEMIA, UNSPECIFIED 03/27/2019 DANIEL THOMPSON DO Ot F17.210 NICOTINE DEPENDENCE, CIGARETTES, UNCOMPL 03/27/2019 DANIEL THOMPSON DO Ot F32.9 MAJOR DEPRESSIVE DISORDER, SINGLE EPISOD 03/27/2019 DANIEL THOMPSON DO Ot I10 ESSENTIAL (PRIMARY) HYPERTENSION 03/27/2019 DANIEL THOMPSON DO Ot I25.10 ATHSCL HEART DISEASE OF [place] CORONARY 03/27/2019 DANIEL THOMPSON DO Ot I48.0 PAROXYSMAL ATRIAL FIBRILLATION 03/27/2019 DANIEL THOMPSON DO Ot J44.9 CHRONIC OBSTRUCTIVE PULMONARY DISEASE, U 03/27/2019 DANIEL THOMPSON DO Ot K21.9 GASTRO-ESOPHAGEAL REFLUX DISEASE WITHOUT 03/27/2019 DANIEL THOMPSON DO Ot K44.9 DIAPHRAGMATIC HERNIA WITHOUT OBSTRUCTION 03/27/2019 DANIEL THOMPSON DO Ot K59.03 DRUG INDUCED CONSTIPATION 03/27/2019 DANIEL THOMPSON DO Ot M54.9 DORSALGIA, UNSPECIFIED 03/27/2019 DANIEL THOMSPON DO Ot Z47.1 AFTERCARE FOLLOWING JOINT REPLACEMENT HUIZAR 03/27/2019 DANIEL THOMPSON DO Ot Z79.01 [facility] (CURRENT) USE OF ANTICOAGULANT 03/27/2019 DANIEL THOMPSON DO Ot Z96.652 PRESENCE OF LEFT ARTIFICIAL KNEE JOINT Procedures Code [place] [address] ROUTINE VENIPUNCTURE 06/16/2012 32480 UA W/ CULTURE IF INDICATED 06/16/2012 26423 LIPID PANEL 06/16/2012 86785 INFLUENZA A & B (IN-HOUSE) 08/05/2012 Cardiolog Javon Poole 09/26/2012 84547 XRAY KNEE LEFT 3 VIEWS 10/27/2012 15916 MAMMOGRAM, SCREENING 10/27/2012 70964 DEXA BONE DENSITY, AXIAL 12/28/2012 Results Test Result Range PT panel in platelet poor plasma by coagulation assay - 08/10/17 07:14 Prothrombin time (PT) in platelet poor plasma by coagulation assay 12.9 s 12.2-14.7 INR in platelet poor plasma or blood by coagulation assay 1.0 0.8-1.4 Activated partial thromboplastin time (aPTT) in platelet poor plasma bycoagulation assay - 08/10/17 07:14 Activated partial thromboplastin time (aPTT) in platelet poor plasma bycoagulation assay 33 s 24-35 Comprehensive metabolic panel - 08/10/17 07:14 Serum or plasma sodium measurement (moles/volume) 140 mmol/L 135-145 Serum or plasma potassium measurement (moles/volume) 3.8 mmol/L 3.6-5.0 Serum or plasma chloride measurement (moles/volume) 102 mmol/L 98-107 Carbon dioxide 25 mmol/L 21-32 Serum or plasma anion gap determination (moles/volume) 13 mmol/L 5-14 Serum or plasma urea nitrogen measurement (mass/volume) 29 mg/dL 7-18 Serum or plasma creatinine measurement (mass/volume) 0.99 mg/dL 0.60-1.30 Serum or plasma urea nitrogen/creatinine mass ratio 29 NRG Serum or plasma creatinine measurement with calculation of estimated glomerular filtration rate 55 NRG Serum or plasma glucose measurement (mass/volume) 126 mg/dL 70-105 Serum or plasma calcium measurement (mass/volume) 9.5 mg/dL 8.5-10.1 Serum or plasma total bilirubin measurement (mass/volume) 0.3 mg/dL 0.1-1.0 Serum or plasma alkaline phosphatase measurement (enzymatic activity/volume) 62 U/L 40-136 Serum or plasma aspartate aminotransferase measurement (enzymatic activity/volume) 19 U/L 5-34 Serum or plasma alanine aminotransferase measurement (enzymatic activity/volume) 16 U/L 0-55 Serum or plasma protein measurement (mass/volume) 6.5 g/dL 6.4-8.2 Serum or plasma albumin measurement (mass/volume) 3.9 g/dL 3.2-4.5 Lipid 1996 panel - 08/10/17 07:14 Serum or plasma triglyceride measurement (mass/volume) 128 mg/dL <150 Serum or plasma cholesterol measurement (mass/volume) 206 mg/dL < 200 Serum or plasma cholesterol in HDL measurement (mass/volume) 51 mg/dL 40-60 Cholesterol in LDL [mass/volume] in serum or plasma by direct assay 131 mg/dL 1-129 Serum or plasma cholesterol in VLDL measurement (mass/volume) 26 mg/dL 5-40 THYROID STIMULATING HORMONE - 08/10/17 07:14 THYROID STIMULATING HORMONE 1.58 u[iU]/mL 0.35-4.94 Automated blood complete blood count (hemogram) panel - 08/10/17 07:14 Blood leukocytes automated count (number/volume) 6.8 10*3/uL 4.3-11.0 Blood erythrocytes automated count (number/volume) 4.52 10*6/uL 4.35-5.85 Venous blood hemoglobin measurement (mass/volume) 14.5 g/dL 11.5-16.0 Blood hematocrit (volume fraction) 42 % 35-52 Automated erythrocyte mean corpuscular volume 94 [foz_us] 80-99 Automated erythrocyte mean corpuscular hemoglobin (mass per erythrocyte) 32 pg 25-34 Automated erythrocyte mean corpuscular hemoglobin concentration measurement (mass/volume) 34 g/dL 32-36 Automated erythrocyte distribution width ratio 13.6 % 10.0- 14.5 Automated blood platelet count (count/volume) 319 10*3/uL 130-400 Automated blood platelet mean volume measurement 10.7 [foz_us] 7.4-10.4 Methicillin resistant Staphylococcus aureus (MRSA) screening culture - 08/10/17 07:14 Methicillin resistant Staphylococcus aureus (MRSA) screening culture NEG NRG [id number] - 08/18/18 12:30 Serum or plasma urea nitrogen measurement (mass/volume) 16 mg/dL 7-18 Serum or plasma creatinine measurement (mass/volume) 0.87 mg/dL 0.60-1.30 Serum or plasma urea nitrogen/creatinine mass ratio 18 NRG Serum or plasma creatinine measurement with calculation of estimated glomerular filtration rate > NRG Complete blood count (CBC) with automated white blood cell (WBC) differential - 02/13/19 13:45 Blood leukocytes automated count (number/volume) 6.9 10*3/uL 4.3-11.0 Blood erythrocytes automated count (number/volume) 4.55 10*6/uL 4.35-5.85 Venous blood hemoglobin measurement (mass/volume) 14.5 g/dL 11.5-16.0 Blood hematocrit (volume fraction) 44 % 35-52 Automated erythrocyte mean corpuscular volume 97 [foz_us] 80-99 Automated erythrocyte mean corpuscular hemoglobin (mass per erythrocyte) 32 pg 25-34 Automated erythrocyte mean corpuscular hemoglobin concentration measurement (mass/volume) 33 g/dL 32-36 Automated erythrocyte distribution width ratio 14.4 % 10.0- 14.5 Automated blood platelet count (count/volume) 352 10*3/uL 130-400 Automated blood platelet mean volume measurement 10.0 [foz_us] 7.4-10.4 Automated blood neutrophils/100 leukocytes 61 % 42-75 Automated blood lymphocytes/100 leukocytes 28 % 12-44 Blood monocytes/100 leukocytes 9 % 0-12 Automated blood eosinophils/100 leukocytes 1 % 0-10 Automated blood basophils/100 leukocytes 0 % 0-10 Blood neutrophils automated count (number/volume) 4.2 10*3 1.8-7.8 Blood lymphocytes automated count (number/volume) 2.0 10*3 1.0-4.0 Blood monocytes automated count (number/volume) 0.6 10*3 0.0- 1.0 Automated eosinophil count 0.1 10*3/uL 0.0-0.3 Automated blood basophil count (count/volume) 0.0 10*3/uL 0.0-0.1 Comprehensive metabolic panel - 02/13/19 13:45 Serum or plasma sodium measurement (moles/volume) 141 mmol/L 135-145 Serum or plasma potassium measurement (moles/volume) 4.2 mmol/L 3.6-5.0 Serum or plasma chloride measurement (moles/volume) 107 mmol/L 98-107 Carbon dioxide 25 mmol/L 21-32 Serum or plasma anion gap determination (moles/volume) 9 mmol/L 5-14 Serum or plasma urea nitrogen measurement (mass/volume) 22 mg/dL 7-18 Serum or plasma creatinine measurement (mass/volume) 0.99 mg/dL 0.60-1.30 Serum or plasma urea nitrogen/creatinine mass ratio 22 NRG Serum or plasma creatinine measurement with calculation of estimated glomerular filtration rate 55 NRG Serum or plasma glucose measurement (mass/volume) 107 mg/dL 70-105 Serum or plasma calcium measurement (mass/volume) 9.8 mg/dL 8.5-10.1 Serum or plasma total bilirubin measurement (mass/volume) 0.3 mg/dL 0.1-1.0 Serum or plasma alkaline phosphatase measurement (enzymatic activity/volume) 58 U/L 40-136 Serum or plasma aspartate aminotransferase measurement (enzymatic activity/volume) 18 U/L 5-34 Serum or plasma alanine aminotransferase measurement (enzymatic activity/volume) 16 U/L 0-55 Serum or plasma protein measurement (mass/volume) 6.6 g/dL 6.4-8.2 Serum or plasma albumin measurement (mass/volume) 4.0 g/dL 3.2-4.5 CALCIUM CORRECTED 9.8 mg/dL 8.5-10.1 Complete blood count (CBC) with automated white blood cell (WBC) differential - 03/17/19 05:50 Blood leukocytes automated count (number/volume) 6.8 10*3/uL 4.3-11.0 Blood erythrocytes automated count (number/volume) 3.77 10*6/uL 4.35-5.85 Venous blood hemoglobin measurement (mass/volume) 11.9 g/dL 11.5-16.0 Blood hematocrit (volume fraction) 37 % 35-52 Automated erythrocyte mean corpuscular volume 98 [foz_us] 80-99 Automated erythrocyte mean corpuscular hemoglobin (mass per erythrocyte) 32 pg 25-34 Automated erythrocyte mean corpuscular hemoglobin concentration measurement (mass/volume) 32 g/dL 32-36 Automated erythrocyte distribution width ratio 13.1 % 10.0- 14.5 Automated blood platelet count (count/volume) 230 10*3/uL 130-400 Automated blood platelet mean volume measurement 10.1 [foz_us] 7.4-10.4 Automated blood neutrophils/100 leukocytes 63 % 42-75 Automated blood lymphocytes/100 leukocytes 24 % 12-44 Blood monocytes/100 leukocytes 12 % 0-12 Automated blood eosinophils/100 leukocytes 1 % 0-10 Automated blood basophils/100 leukocytes 0 % 0-10 Blood neutrophils automated count (number/volume) 4.3 10*3 1.8-7.8 Blood lymphocytes automated count (number/volume) 1.6 10*3 1.0-4.0 Blood monocytes automated count (number/volume) 0.8 10*3 0.0- 1.0 Automated eosinophil count 0.1 10*3/uL 0.0-0.3 Automated blood basophil count (count/volume) 0.0 10*3/uL 0.0-0.1 Comprehensive metabolic panel - 03/17/19 05:50 Serum or plasma sodium measurement (moles/volume) 138 mmol/L 135-145 Serum or plasma potassium measurement (moles/volume) 3.9 mmol/L 3.6-5.0 Serum or plasma chloride measurement (moles/volume) 104 mmol/L 98-107 Carbon dioxide 23 mmol/L 21-32 Serum or plasma anion gap determination (moles/volume) 11 mmol/L 5-14 Serum or plasma urea nitrogen measurement (mass/volume) 14 mg/dL 7-18 Serum or plasma creatinine measurement (mass/volume) 0.69 mg/dL 0.60-1.30 Serum or plasma urea nitrogen/creatinine mass ratio 20 NRG Serum or plasma creatinine measurement with calculation of estimated glomerular filtration rate > NRG Serum or plasma glucose measurement (mass/volume) 117 mg/dL 70-105 Serum or plasma calcium measurement (mass/volume) 9.0 mg/dL 8.5-10.1 Serum or plasma total bilirubin measurement (mass/volume) 0.7 mg/dL 0.1-1.0 Serum or plasma alkaline phosphatase measurement (enzymatic activity/volume) 64 U/L 40-136 Serum or plasma aspartate aminotransferase measurement (enzymatic activity/volume) 101 U/L 5-34 Serum or plasma alanine aminotransferase measurement (enzymatic activity/volume) 100 U/L 0-55 Serum or plasma protein measurement (mass/volume) 5.6 g/dL 6.4-8.2 Serum or plasma albumin measurement (mass/volume) 3.3 g/dL 3.2-4.5 CALCIUM CORRECTED 9.6 mg/dL 8.5-10.1 Serum or plasma amylase measurement (enzymatic activity/volume) - 03/17/19 05:50 Serum or plasma amylase measurement (enzymatic activity/volume) 21 U/L 25-125 Lipase - 03/17/19 05:50 Lipase 22 U/L 8-78 Automated blood complete blood count (hemogram) panel - 03/18/19 06:06 Blood leukocytes automated count (number/volume) 7.0 10*3/uL 4.3-11.0 Blood erythrocytes automated count (number/volume) 3.68 10*6/uL 4.35-5.85 Venous blood hemoglobin measurement (mass/volume) 11.6 g/dL 11.5-16.0 Blood hematocrit (volume fraction) 36 % 35-52 Automated erythrocyte mean corpuscular volume 97 [foz_us] 80-99 Automated erythrocyte mean corpuscular hemoglobin (mass per erythrocyte) 32 pg 25-34 Automated erythrocyte mean corpuscular hemoglobin concentration measurement (mass/volume) 33 g/dL 32-36 Automated erythrocyte distribution width ratio 13.1 % 10.0- 14.5 Automated blood platelet count (count/volume) 271 10*3/uL 130-400 Automated blood platelet mean volume measurement 10.0 [foz_us] 7.4-10.4 Comprehensive metabolic panel - 03/18/19 06:06 Serum or plasma sodium measurement (moles/volume) 138 mmol/L 135-145 Serum or plasma potassium measurement (moles/volume) 4.2 mmol/L 3.6-5.0 Serum or plasma chloride measurement (moles/volume) 104 mmol/L 98-107 Carbon dioxide 22 mmol/L 21-32 Serum or plasma anion gap determination (moles/volume) 12 mmol/L 5-14 Serum or plasma urea nitrogen measurement (mass/volume) 16 mg/dL 7-18 Serum or plasma creatinine measurement (mass/volume) 0.72 mg/dL 0.60-1.30 Serum or plasma urea nitrogen/creatinine mass ratio 22 NRG Serum or plasma creatinine measurement with calculation of estimated glomerular filtration rate > NRG Serum or plasma glucose measurement (mass/volume) 127 mg/dL 70-105 Serum or plasma calcium measurement (mass/volume) 9.3 mg/dL 8.5-10.1 Serum or plasma total bilirubin measurement (mass/volume) 0.9 mg/dL 0.1-1.0 Serum or plasma alkaline phosphatase measurement (enzymatic activity/volume) 86 U/L 40-136 Serum or plasma aspartate aminotransferase measurement (enzymatic activity/volume) 79 U/L 5-34 Serum or plasma alanine aminotransferase measurement (enzymatic activity/volume) 111 U/L 0-55 Serum or plasma protein measurement (mass/volume) 5.8 g/dL 6.4-8.2 Serum or plasma albumin measurement (mass/volume) 3.3 g/dL 3.2-4.5 CALCIUM CORRECTED 9.9 mg/dL 8.5-10.1 Comprehensive metabolic panel - 03/19/19 05:29 Serum or plasma sodium measurement (moles/volume) 138 mmol/L 135-145 Serum or plasma potassium measurement (moles/volume) 4.0 mmol/L 3.6-5.0 Serum or plasma chloride measurement (moles/volume) 104 mmol/L 98-107 Carbon dioxide 22 mmol/L 21-32 Serum or plasma anion gap determination (moles/volume) 12 mmol/L 5-14 Serum or plasma urea nitrogen measurement (mass/volume) 16 mg/dL 7-18 Serum or plasma creatinine measurement (mass/volume) 0.69 mg/dL 0.60-1.30 Serum or plasma urea nitrogen/creatinine mass ratio 23 NRG Serum or plasma creatinine measurement with calculation of estimated glomerular filtration rate > NRG Serum or plasma glucose measurement (mass/volume) 129 mg/dL 70-105 Serum or plasma calcium measurement (mass/volume) 9.2 mg/dL 8.5-10.1 Serum or plasma total bilirubin measurement (mass/volume) 0.7 mg/dL 0.1-1.0 Serum or plasma alkaline phosphatase measurement (enzymatic activity/volume) 77 U/L 40-136 Serum or plasma aspartate aminotransferase measurement (enzymatic activity/volume) 41 U/L 5-34 Serum or plasma alanine aminotransferase measurement (enzymatic activity/volume) 77 U/L 0-55 Serum or plasma protein measurement (mass/volume) 5.8 g/dL 6.4-8.2 Serum or plasma albumin measurement (mass/volume) 3.1 g/dL 3.2-4.5 CALCIUM CORRECTED 9.9 mg/dL 8.5-10.1 Comprehensive metabolic panel - 03/20/19 05:16 Serum or plasma sodium measurement (moles/volume) 139 mmol/L 135-145 Serum or plasma potassium measurement (moles/volume) 4.4 mmol/L 3.6-5.0 Serum or plasma chloride measurement (moles/volume) 105 mmol/L 98-107 Carbon dioxide 23 mmol/L -32 Serum or plasma anion gap determination (moles/volume) 11 mmol/L 5-14 Serum or plasma urea nitrogen measurement (mass/volume) 12 mg/dL 7-18 Serum or plasma creatinine measurement (mass/volume) 0.74 mg/dL 0.60-1.30 Serum or plasma urea nitrogen/creatinine mass ratio 16 NRG Serum or plasma creatinine measurement with calculation of estimated glomerular filtration rate > NRG Serum or plasma glucose measurement (mass/volume) 118 mg/dL 70-105 Serum or plasma calcium measurement (mass/volume) 9.0 mg/dL 8.5-10.1 Serum or plasma total bilirubin measurement (mass/volume) 0.5 mg/dL 0.1-1.0 Serum or plasma alkaline phosphatase measurement (enzymatic activity/volume) 75 U/L 40-136 Serum or plasma aspartate aminotransferase measurement (enzymatic activity/volume) 27 U/L 5-34 Serum or plasma alanine aminotransferase measurement (enzymatic activity/volume) 56 U/L 0-55 Serum or plasma protein measurement (mass/volume) 5.6 g/dL 6.4-8.2 Serum or plasma albumin measurement (mass/volume) 3.0 g/dL 3.2-4.5 CALCIUM CORRECTED 9.8 mg/dL 8.5-10.1 Complete blood count (CBC) with automated white blood cell (WBC) differential - 03/24/19 05:15 Blood leukocytes automated count (number/volume) 4.6 10*3/uL 4.3-11.0 Blood erythrocytes automated count (number/volume) 3.35 10*6/uL 4.35-5.85 Venous blood hemoglobin measurement (mass/volume) 10.5 g/dL 11.5-16.0 Blood hematocrit (volume fraction) 33 % 35-52 Automated erythrocyte mean corpuscular volume 99 [foz_us] 80-99 Automated erythrocyte mean corpuscular hemoglobin (mass per erythrocyte) 31 pg 25-34 Automated erythrocyte mean corpuscular hemoglobin concentration measurement (mass/volume) 32 g/dL 32-36 Automated erythrocyte distribution width ratio 13.0 % 10.0- 14.5 Automated blood platelet count (count/volume) 458 10*3/uL 130-400 Automated blood platelet mean volume measurement 9.1 [foz_us] 7.4-10.4 Automated blood neutrophils/100 leukocytes 48 % 42-75 Automated blood lymphocytes/100 leukocytes 33 % 12-44 Blood monocytes/100 leukocytes 14 % 0-12 Automated blood eosinophils/100 leukocytes 3 % 0-10 Automated blood basophils/100 leukocytes 1 % 0-10 Blood neutrophils automated count (number/volume) 2.2 10*3 1.8-7.8 Blood lymphocytes automated count (number/volume) 1.5 10*3 1.0-4.0 Blood monocytes automated count (number/volume) 0.7 10*3 0.0- 1.0 Automated eosinophil count 0.2 10*3/uL 0.0-0.3 Automated blood basophil count (count/volume) 0.0 10*3/uL 0.0-0.1 Comprehensive metabolic panel - 03/24/19 05:15 Serum or plasma sodium measurement (moles/volume) 141 mmol/L 135-145 Serum or plasma potassium measurement (moles/volume) 3.7 mmol/L 3.6-5.0 Serum or plasma chloride measurement (moles/volume) 108 mmol/L 98-107 Carbon dioxide 22 mmol/L 21-32 Serum or plasma anion gap determination (moles/volume) 11 mmol/L 5-14 Serum or plasma urea nitrogen measurement (mass/volume) 16 mg/dL 7-18 Serum or plasma creatinine measurement (mass/volume) 0.69 mg/dL 0.60-1.30 Serum or plasma urea nitrogen/creatinine mass ratio 23 NRG Serum or plasma creatinine measurement with calculation of estimated glomerular filtration rate > NRG Serum or plasma glucose measurement (mass/volume) 119 mg/dL 70-105 Serum or plasma calcium measurement (mass/volume) 9.0 mg/dL 8.5-10.1 Serum or plasma total bilirubin measurement (mass/volume) 0.4 mg/dL 0.1-1.0 Serum or plasma alkaline phosphatase measurement (enzymatic activity/volume) 82 U/L 40-136 Serum or plasma aspartate aminotransferase measurement (enzymatic activity/volume) 42 U/L 5-34 Serum or plasma alanine aminotransferase measurement (enzymatic activity/volume) 51 U/L 0-55 Serum or plasma protein measurement (mass/volume) 5.4 g/dL 6.4-8.2 Serum or plasma albumin measurement (mass/volume) 3.1 g/dL 3.2-4.5 CALCIUM CORRECTED 9.7 mg/dL 8.5-10.1 Complete blood count (CBC) with automated white blood cell (WBC) differential - 03/27/19 04:30 Blood leukocytes automated count (number/volume) 5.6 10*3/uL 4.3-11.0 Blood erythrocytes automated count (number/volume) 3.31 10*6/uL 4.35-5.85 Venous blood hemoglobin measurement (mass/volume) 10.5 g/dL 11.5-16.0 Blood hematocrit (volume fraction) 33 % 35-52 Automated erythrocyte mean corpuscular volume 99 [foz_us] 80-99 Automated erythrocyte mean corpuscular hemoglobin (mass per erythrocyte) 32 pg 25-34 Automated erythrocyte mean corpuscular hemoglobin concentration measurement (mass/volume) 32 g/dL 32-36 Automated erythrocyte distribution width ratio 13.2 % 10.0- 14.5 Automated blood platelet count (count/volume) 476 10*3/uL 130-400 Automated blood platelet mean volume measurement 9.2 [foz_us] 7.4-10.4 Automated blood neutrophils/100 leukocytes 59 % 42-75 Automated blood lymphocytes/100 leukocytes 30 % 12-44 Blood monocytes/100 leukocytes 8 % 0-12 Automated blood eosinophils/100 leukocytes 3 % 0-10 Automated blood basophils/100 leukocytes 1 % 0-10 Blood neutrophils automated count (number/volume) 3.3 10*3 1.8-7.8 Blood lymphocytes automated count (number/volume) 1.7 10*3 1.0-4.0 Blood monocytes automated count (number/volume) 0.4 10*3 0.0- 1.0 Automated eosinophil count 0.2 10*3/uL 0.0-0.3 Automated blood basophil count (count/volume) 0.0 10*3/uL 0.0-0.1 Comprehensive metabolic panel - 03/27/19 04:30 Serum or plasma sodium measurement (moles/volume) 142 mmol/L 135-145 Serum or plasma potassium measurement (moles/volume) 3.8 mmol/L 3.6-5.0 Serum or plasma chloride measurement (moles/volume) 108 mmol/L 98-107 Carbon dioxide 24 mmol/L 21-32 Serum or plasma anion gap determination (moles/volume) 10 mmol/L 5-14 Serum or plasma urea nitrogen measurement (mass/volume) 19 mg/dL 7-18 Serum or plasma creatinine measurement (mass/volume) 0.74 mg/dL 0.60-1.30 Serum or plasma urea nitrogen/creatinine mass ratio 26 NRG Serum or plasma creatinine measurement with calculation of estimated glomerular filtration rate > NRG Serum or plasma glucose measurement (mass/volume) 148 mg/dL 70-105 Serum or plasma calcium measurement (mass/volume) 9.0 mg/dL 8.5-10.1 Serum or plasma total bilirubin measurement (mass/volume) 0.3 mg/dL 0.1-1.0 Serum or plasma alkaline phosphatase measurement (enzymatic activity/volume) 63 U/L 40-136 Serum or plasma aspartate aminotransferase measurement (enzymatic activity/volume) 40 U/L 5-34 Serum or plasma alanine aminotransferase measurement (enzymatic activity/volume) 45 U/L 0-55 Serum or plasma protein measurement (mass/volume) 5.2 g/dL 6.4-8.2 Serum or plasma albumin measurement (mass/volume) 3.1 g/dL 3.2-4.5 CALCIUM CORRECTED 9.7 mg/dL 8.5-10.1 Encounters ACCT No. Visit Date/Time Discharge Status Pt. Type Provider Facility Loc./Unit Complaint [id number] 03/16/2013 08:17:00 03/16/2013 23:59:59 CLS Outpatient GABI TINOCO MD [id number] 10/25/2012 08:21:00 10/25/2012 23:59:59 CLS Outpatient GEN BRAVO APRN [id number] 08/05/2012 08:55:00 08/05/2012 23:59:59 CLS Outpatient [id number] 08/05/2012 08:55:00 08/05/2012 23:59:59 CLS Outpatient [id number] 04/11/2012 08:13:00 04/11/2012 23:59:59 CLS Outpatient GEN BRAVO APRN [id number] 12/27/2012 08:27:00 Document Registration [id number] 10/25/2012 08:21:00 Document Registration 0000 04/29/2017 08:40:35 04/29/2017 23:59:59 CLS Outpatient [id number] 02/25/2015 07:25:17 ACT Document Registration [id number] 03/16/2019 13:20:00 03/29/2019 12:15:00 DIS Inpatient DANIEL THOMPSON DO [facility] IRF L TKA [id number] 02/21/2019 09:39:00 02/21/2019 23:59:59 CLS Preadmit REGINALDO HARDIN MD [facility] RAD HX OF LUNG CA [id number] 02/13/2019 13:29:00 02/13/2019 23:59:59 CLS Outpatient REGINALDO HARDIN MD [facility] RAD HX OF LUNG CA [id number] 09/26/2018 08:45:00 09/26/2018 23:59:59 CLS Outpatient LYNSEY HAND [facility] RAD INTERMITTENT CLAUDICATION, TOBACCO USE [id number] 08/18/2018 12:23:00 08/18/2018 23:59:59 CLS Outpatient LYNSEY HAND [facility] RAD LUNG CANCER [id number] 06/24/2018 09:04:00 06/24/2018 23:59:59 CLS Outpatient LYNSEY HAND [facility] RAD SCREENING [id number] 05/12/2018 13:38:00 05/12/2018 14:31:00 DIS Outpatient JORDI CANTU [facility] REHAB LUMBAR STENOSIS WITH RADICULOPATHY [id number] 04/29/2018 13:12:00 05/04/2018 10:28:00 DIS Outpatient JORDI CANTU [facility] REHAB LUMBAR STENOSIS WITH RADICULOPATHY [id number] 12/11/2017 10:50:00 12/11/2017 23:59:59 CLS Outpatient LYNSEY HAND [facility] RAD NECK AND LOW BACK PAIN [id number] 11/26/2017 20:52:00 11/27/2017 05:16:00 DIS Outpatient PARDEEP SPIVEY MD [facility] SLEEP SLEEP APNEA [id number] 11/25/2017 11:42:00 11/25/2017 23:59:59 CLS Outpatient LYNSEY HAND [facility] RAD NECK AND LOW BACK PAIN [id number] 10/20/2017 20:50:00 10/21/2017 05:57:00 DIS Outpatient PARDEEP SPIVEY MD [facility] SLEEP HYPERTENSION [id number] 09/02/2017 00:12:00 09/02/2017 23:59:59 CLS Preadmit TIFFANI DUNLAP MD [facility] ONC [id number] 06/03/2017 08:47:00 09/01/2017 00:01:00 DIS Outpatient TIFFANI DUNLAP MD [facility] ONC [id number] 08/10/2017 10:00:00 08/10/2017 23:59:59 CLS Preadmit JANN MILLER FACMary Jo, TABITHA GALLOWAY CCDS [facility] CARD PAF [id number] 08/10/2017 06:47:00 08/10/2017 14:37:00 DIS Outpatient JANN MILLER FACC, TABITHA FACP CCDS [facility] CATH PAF,WIDE COMPLEX TACHYCARDIA [id number] 06/01/2017 08:40:00 06/01/2017 23:59:59 CLS Outpatient RENETTA GONZALES MD [facility] RAD NEUROENDOCIRINE CARCINOMA OF LUNG [id number] 04/27/2017 08:24:00 05/01/2017 00:01:00 DIS Outpatient TIFFANI DUNLAP MD [facility] ONC [id number] 03/23/2017 09:32:00 03/23/2017 23:59:59 CLS Outpatient TIFFANI DUNLAP MD [facility] RAD R91.1 LUNG NODULE SEEN ON IMAGING STUDY [id number] 01/05/2017 08:10:00 02/22/2017 00:01:00 DIS Outpatient TIFFANI DUNLAP MD [facility] ONC [id number] 01/28/2017 07:19:00 01/28/2017 23:59:59 CLS Outpatient MANUEL HENDRIX APRN [facility] RAD SCREENING [id number] 12/30/2016 07:28:00 12/30/2016 23:59:59 CLS Outpatient TIFFANI DUNLAP MD [facility] RAD C34.10 [id number] 06/30/2016 15:27:00 08/24/2016 00:01:00 DIS Outpatient TIFFANI DUNLAP MD [facility] ONC [id number] 06/29/2016 07:21:00 06/29/2016 23:59:59 CLS Outpatient ANALI PETERSON MD [facility] RAD LUNG CA [id number] 06/02/2016 08:09:00 06/02/2016 23:59:59 CLS Outpatient JANN MILLER FACC, TABITHA GALLOWAY CCDS [facility] CARD CAD,COPD,HTN [id number] 05/21/2016 08:20:00 05/21/2016 23:59:59 CLS Outpatient LYNSEY HAND CLINICAL SCIENCE CONSULTANT [facility] RAD OSTEOPENIA M85.89 [id number] 03/31/2016 15:33:00 05/08/2016 15:55:00 DIS Outpatient TIFFANI DUNLAP MD [facility] ONC [id number] 03/16/2016 07:29:00 03/16/2016 23:59:59 CLS Outpatient TIFFANI DUNLAP MD [facility] RAD LUNG CANCER,UPPER LOBE [id number] 03/02/2016 09:09:00 03/08/2016 00:01:00 DIS Outpatient TIFFANI DUNLAP MD [facility] ONC [id number] 12/31/2015 07:58:00 12/31/2015 23:59:59 CLS Outpatient MAYA MORA MANAGER CARE [facility] RAD LUNG CANCER [id number] 12/20/2015 11:46:00 12/20/2015 23:59:59 CLS Outpatient MANUEL HENDRIX MANAGER CARE [facility] RAD LOW BACK PAIN [id number] 12/19/2015 09:05:00 12/19/2015 23:59:59 CLS Outpatient BOB MOSELEY DO [facility] RAD LUNG CA UPPER LOBE,LUNG NODULE [id number] 12/15/2015 12:51:00 12/15/2015 23:59:59 CLS Outpatient SURINDER CHIU CLINICAL SCIENCE CONSULTANT [facility] QUICK [id number] 08/14/2015 07:25:00 08/14/2015 23:59:59 CLS Outpatient LYNSEY HAND CLINICAL SCIENCE CONSULTANT [facility] RAD LUNG NODULE [id number] 05/29/2015 07:09:00 05/29/2015 23:59:59 CLS Outpatient LYNSEY HAND CLINICAL SCIENCE CONSULTANT [facility] RAD PULOMONARY NODULE [id number] 05/15/2015 06:57:00 05/15/2015 23:59:59 CLS Outpatient MAYA MORA MANAGER CARE [facility] RT TOBACCO DEPENDENCE [id number] 02/25/2015 07:24:00 02/25/2015 23:59:59 CLS Outpatient LYNSEY HANDP [facility] RAD PULOMARY NODULE [id number] 02/19/2015 08:02:00 02/19/2015 23:59:59 CLS Outpatient REMY MCELROY MD [facility] LAB ESSENTIAL HYPERTENSION,ELEVATED GLUCOSE,TOBACCOISM [id number] 01/09/2015 09:03:00 01/09/2015 23:59:59 CLS Outpatient LYNSEY HAND CLINICAL SCIENCE CONSULTANT [facility] RAD SCREENING [id number] 11/22/2014 07:32:00 11/22/2014 23:59:59 CLS Outpatient LYNSEY HANDP [facility] RAD PULMONARY NODULE [id number] 11/14/2014 07:43:00 11/14/2014 23:59:59 CLS Outpatient REMY MCELROY MD [facility] RAD SCREENING, HX OF TOBACCOISM [id number] 07/17/2014 07:18:00 07/17/2014 23:59:59 CLS Outpatient REMY MCELROY MD [facility] LAB HTN,HLP,ROUTINE EXAM [id number] 03/13/2014 07:40:00 03/13/2014 23:59:59 CLS Outpatient REMY MCELROY MD [facility] LAB HTN,ELEVATED BLOOD SUGAR,ROUTINE EXAM [id number] 01/12/2014 07:55:00 01/12/2014 23:59:59 CLS Outpatient LYNSEY HANDP [facility] RAD ABN MAMMO [id number] 12/27/2013 08:33:00 12/27/2013 23:59:59 CLS Outpatient LYNSEY HAND CLINICAL SCIENCE CONSULTANT [facility] RAD SCREENING [id number] 11/15/2013 08:22:00 11/15/2013 12:30:00 DIS Outpatient BHAVESH TELLEZ MD [facility] SDC REFLUX;HISTORY OF POLYPS [id number] 11/08/2013 07:12:00 11/08/2013 23:59:59 CLS Outpatient BHAVESH TELLEZ MD [facility] PREOP REFLUX;HISTORY OF POLYPS [id number] 08/29/2013 07:31:00 08/29/2013 13:28:00 DIS Outpatient JANN MILLER FACC, TABITHA GALLOWAY CCDS [facility] CATH CP,TABACCOISM,HTN,HLP [id number] 02/09/2013 08:00:00 02/09/2013 23:59:59 CLS Outpatient JAVON POOLE MD [facility] LAB FASTING LIPID PANEL,HEPATIC PANEL [id number] 01/06/2013 09:02:00 01/06/2013 23:59:59 CLS Outpatient GEN BRAVO [facility] RAD LUMBAGO [id number] 01/14/2016 08:40:00 Document Registration [id number] 02/04/2015 08:15:00 Document Registration [id number] 02/04/2015 08:15:00 Document Registration [id number] 02/04/2015 08:15:00 Document Registration [id number] 02/04/2015 08:15:00 Document Registration [id number] 02/04/2015 08:15:00 Document Registration [id number] 02/04/2015 08:15:00 Document Registration [id number] 02/04/2015 08:15:00 Document Registration [id number] 02/04/2015 08:15:00 Document Registration [id number] 11/22/2014 07:32:00 Document Registration [id number] 11/22/2014 07:32:00 Document Registration [id number] 11/22/2014 07:32:00 Document Registration [id number] 11/22/2014 07:32:00 Document Registration [id number] 11/22/2014 07:32:00 Document Registration [id number] 11/22/2014 07:32:00 Document Registration [id number] 11/16/2012 07:17:00 Document Registration [id number] 10/21/2011 08:20:00 Document Registration [id number] 08/31/2011 06:30:00 Document Registration [id number] 07/03/2011 07:48:00 Document Registration [id number] 05/05/2011 14:58:00 Document Registration [id number] 04/28/2011 12:04:00 Document Registration [id number] 04/23/2011 12:43:00 Document Registration [id number] 04/07/2011 07:30:00 Document Registration [id number] 04/03/2011 15:27:00 Document Registration [id number] 12/18/2010 08:06:00 Document Registration [id number] 10/15/2010 09:51:00 Document Registration [id number] 06/25/2010 07:47:00 Document Registration [id number] 04/15/2010 10:48:00 Document Registration [id number] 03/13/2010 12:45:00 Document Registration [id number] 10/02/2009 08:13:00 Document Registration [id number] 09/23/2009 13:52:00 Document Registration [id number] 06/19/2009 08:30:00 Document Registration [id number] 04/19/2009 09:53:00 Document Registration [id number] 03/14/2009 08:34:00 Document Registration [id number] 11/27/2008 08:12:00 Document Registration [id number] 11/05/2008 09:45:00 Document Registration [id number] 05/17/2008 12:46:00 Document Registration [id number] 09/02/2007 08:23:00 Document Registration
== END 2019-03-29 12:15 | disposition home health service (06) | DRG 561 ==
PROVIDERS: ADMIT Internal Medicine; ATTEND Internal Medicine
DX: Z47.1 Aftercare following joint replacement surgery (principal); Z96.652 Presence of left artificial knee joint; J44.9 Chronic obstructive pulmonary disease, unspecified; I10 Essential (primary) hypertension; I25.10 Atherosclerotic heart disease of native coronary artery without angina pectoris; E78.5 Hyperlipidemia, unspecified; F17.210 Nicotine dependence, cigarettes, uncomplicated; K59.03 Drug induced constipation; I48.0 Paroxysmal atrial fibrillation; F32.9 Major depressive disorder, single episode, unspecified; K21.9 Gastro-esophageal reflux disease without esophagitis; K44.9 Diaphragmatic hernia without obstruction or gangrene; F51.01 Primary insomnia; R06.89 Other abnormalities of breathing; R79.89 Other specified abnormal findings of blood chemistry; M54.9 Dorsalgia, unspecified; Z79.01 Long term (current) use of anticoagulants; Z85.118 Personal history of other malignant neoplasm of bronchus and lung; Z90.2 Acquired absence of lung [part of]
CPT/HCPCS: 36415; 76705; 80053; 82150; 83690; 85025; 85027; 94640; 94760

== ENCOUNTER → 2019-07-03 | Outpatient (CLI) | payer MEDICARE, OTHER ==
[~2019-07-03] MED LIST changes: +AMLO10TA7 PO; +APIX5TAB PO; +ASPI-983 PO; +ASPI-999 PO; +ATOR10TA66 PO; +CALC-6 PO; +CHOL20003 PO; +HYDR-3820 PO; +METO100T12 PO; +MULT1TAB69 PO; +OMG1KC PO; +PANT40TA3 PO; +SENN-148 PO; +SENN-20 PO; +TRAM50TA2 PO; +VALS320T15 PO
--- NOTE | 2019-07-03 12:14 | Diagnostic Imaging Report ---
INDICATION: Routine screening. COMPARISON: 06/24/2018 and 01/28/2017. TECHNIQUE: 2D and 3D bilateral screening mammography was performed with CAD. FINDINGS: Scattered fibroglandular densities are identified bilaterally. Intraparenchymal lymph nodes in the right breast appear stable. A tiny intraparenchymal lymph node in the superior left breast is stable. No spiculated mass or malignant appearing microcalcifications are seen. The axillae are unremarkable. IMPRESSION: No mammographic features suspicious for malignancy are identified. ACR BI-RADS Category 2: Benign findings. Result letter will be mailed to the patient. Note: At least 10% of breast cancer is not imaged by mammography. Dictated by: Dictated on workstation # [id number]
== END ==
LOC: RAD 08:54
PROVIDERS: ATTEND Nurse Practitioner Family
DX: Z12.31 Encounter for screening mammogram for malignant neoplasm of breast (principal)
CPT/HCPCS: 77067

== ENCOUNTER → 2019-08-17 | Outpatient (CLI) | payer MEDICARE, OTHER ==
[~2019-08-17] MED LIST changes: +HOLD METFORMIN - RECEIVED CONTRAST 20 ML VIAL IV SCH; +IOHEXOL 350 MG/ML 100 ML (OMNIPAQUE 350) VIAL IV ONE; +NS 100 ML (IVPB) BAG IV ONE; -SENN-148 PO; +SNN187T PO; -TRAM50TA2 PO; +TRM50T PO
[2019-08-17 11:02] LABS: BUN/CREATININE RATIO 15; CALCIUM 9.6 MG/DL (8.5-10.1); CARBON DIOXIDE 25 MMOL/L (21-32); CHLORIDE 103 MMOL/L (98-107); CREATININE SERUM 0.87 MG/DL (0.60-1.30); GFR ESTIMATED > 60; GLUCOSE 119 MG/DL (70-105); POTASSIUM 4.4 MMOL/L (3.6-5.0); SODIUM 138 MMOL/L (135-145)
--- NOTE | 2019-08-17 14:05 | Diagnostic Imaging Report ---
PROCEDURE: CT chest with contrast only. TECHNIQUE: Multiple contiguous axial images were obtained through the chest after administration of intravenous contrast. Auto Exposure Controls were utilized during the CT exam to meet ALARA standards for radiation dose reduction. INDICATION: Six-month follow-up of left lung mass. Patient has had a prior left lung mass removal. COMPARISON: Correlation is made with prior CT from 02/13/2019. FINDINGS: No axillary lymphadenopathy is seen. A right upper paratracheal lymph node measures 7 mm compared with 5 mm. AP window node is 8 mm compared with approximately 7 mm on prior. No hilar lymphadenopathy is detected. No pericardial or pleural fluid is identified. Postop changes left upper lobectomy are again noted. There is some scarring in the left base anteriorly, unchanged. No recurrent or new mass is detected. No infiltrates or nodules are seen. Upper abdomen is unremarkable. Patchy areas of sclerosis involving multiple thoracic vertebral bodies appear similar to prior exam, indeterminate. IMPRESSION: Overall stable CT of the chest when compared with prior CT chest from 02/13/2019 with the exception of perhaps very minimal slight increase in size of mediastinal lymph nodes when compared with prior. No new pulmonary mass is detected. Continued follow-up is recommended. Dictated by: Dictated on workstation # [id number]
== END ==
LOC: RAD 10:30
PROVIDERS: ATTEND Internal Medicine Hematology & Oncology
DX: Z85.118 Personal history of other malignant neoplasm of bronchus and lung (principal)
CPT/HCPCS: 36415; 71260; 80048

== ENCOUNTER → 2019-10-18 | Outpatient (CLI) | payer MEDICARE, OTHER ==
[~2019-10-18] MED LIST changes: +ACHYD1T PO; -HOLD METFORMIN - RECEIVED CONTRAST 20 ML VIAL IV SCH; -HYDR-3820 PO; -IOHEXOL 350 MG/ML 100 ML (OMNIPAQUE 350) VIAL IV ONE; -NS 100 ML (IVPB) BAG IV ONE
--- NOTE | 2019-10-18 15:34 | Diagnostic Imaging Report ---
PROCEDURE: MRI lumbar spine without contrast. TECHNIQUE: Multiplanar, multisequence MRI of the lumbar spine was performed without contrast. INDICATION: Chronic low back pain. COMPARISON: Lumbar spine MRI on 12/11/2017. FINDINGS: 5 lumbar type vertebral bodies are visualized with the last well-formed disc space designated L5-S1. No acute fracture or dislocation is seen in the lumbar spine. There is grade 1 anterolisthesis of L4 on L5. Vertebral body heights and disc spaces are well-maintained. The bone marrow signal is normal. The conus terminates at the L1 level. No masses are seen associated with the conus or nerve roots of the cauda equina. No epidural collections are identified. Multilevel degenerative changes are seen in the lumbar spine with disc bulges, facet hypertrophy, and buckling of the ligamentum flavum. T12-L1: No significant spinal canal or foraminal stenosis. L1-L2: No significant spinal canal or foraminal stenosis. L2-L3: Facet hypertrophy and buckling of ligamentum flavum results in no significant spinal canal narrowing and mild bilateral foraminal narrowing. L3-L4: Broad-based disc bulge, facet hypertrophy, and buckling of ligamentum flavum results in mild spinal canal narrowing and moderate bilateral foraminal narrowing. L4-L5: Broad-based disc bulge, facet hypertrophy, and buckling of the ligamentum flavum results in moderate to severe spinal canal stenosis and mild left and moderate right foraminal stenosis. Effusions are also noted in the bilateral facet joints at this level. L5-S1: Broad-based disc bulge, facet hypertrophy, and buckling of the ligamentum flavum results in no significant spinal canal stenosis and mild bilateral foraminal narrowing. Paravertebral soft tissues are unremarkable. IMPRESSION: 1. No acute fracture or dislocation in the lumbar spine. 2. Multilevel degenerative changes in the lumbar spine, greatest at L4-L5. These findings have progressed since the prior exam. Dictated by: Dictated on workstation # [id number]
== END ==
LOC: RAD 14:36
PROVIDERS: ATTEND Orthopaedic Surgery Orthopaedic Surgery of the Spine
DX: M47.816 Spondylosis without myelopathy or radiculopathy, lumbar region (principal)
CPT/HCPCS: 72148

== ENCOUNTER → 2020-02-14 | Outpatient (CLI) | payer MEDICARE, OTHER ==
[~2020-02-14] MED LIST changes: +CATHETER FLUSH 10 ML SYR IV PRN; +HOLD METFORMIN - RECEIVED CONTRAST 20 ML VIAL IV SCH; +IOHEXOL 350 MG/ML 100 ML (OMNIPAQUE 350) VIAL IV ONE; +MULT-567 PO; -MULT1TAB69 PO; +NS 100 ML (IVPB) BAG IV ONE
[2020-02-14 15:00] LABS: ALANINE AMINOTRANSFERASE 19 U/L (0-55); ALBUMIN 4.1 GM/DL (3.2-4.5); ALKALINE PHOSPHATASE 76 U/L (40-136); BILIRUBIN,TOTAL 0.5 MG/DL (0.1-1.0); BUN/CREATININE RATIO 16; CALCIUM 9.7 MG/DL (8.5-10.1); CARBON DIOXIDE 23 MMOL/L (21-32); CHLORIDE 108 MMOL/L (98-107); CREATININE SERUM 0.77 MG/DL (0.60-1.30); GFR ESTIMATED > 60; GLUCOSE 120 MG/DL (70-105); SODIUM 140 MMOL/L (135-145); TOTAL PROTEIN 6.7 GM/DL (6.4-8.2)
--- NOTE | 2020-02-14 16:27 | Diagnostic Imaging Report ---
EXAMINATION: CT Chest with intravenous contrast. TECHNIQUE: Multiple contiguous axial images were obtained through the chest after the uneventful administration of intravenous contrast. All CT scans use one or more of the following dose optimizing techniques: automated exposure control, MA and/or KvP adjustment based on a patient size and exam type, or iterative reconstruction. HISTORY: Lung cancer. COMPARISON: 08/17/2019. FINDINGS: There is moderate emphysema. There has been a left-sided lobectomy, hilum is distorted making it difficult to tell which lobe was removed. No suspicious nodules are seen. No edema or pneumonia. No pleural effusion or pneumothorax. Heart size is normal. There are mild coronary artery calcifications. No pericardial effusion. Aorta is normal in caliber. There is no axillary or supraclavicular lymphadenopathy. There is no mediastinal lymphadenopathy. All mediastinal lymph nodes are subcentimeter. There are extensive mitral annular calcifications. Limited views of the upper abdomen show duodenal diverticulum. There are no suspicious osseus lesions. IMPRESSION: 1. No metastatic disease seen in the chest. Dictated by: Dictated on workstation # [id number]
== END ==
LOC: RAD 14:19
PROVIDERS: ATTEND Internal Medicine Hematology & Oncology
DX: C34.90 Malignant neoplasm of unspecified part of unspecified bronchus or lung (principal); Z85.118 Personal history of other malignant neoplasm of bronchus and lung
CPT/HCPCS: 36415; 71260; 80053

== ENCOUNTER 2020-09-12 13:35 | Outpatient (RCR) | payer MEDICARE, OTHER ==
[~2020-09-12 13:35] MED LIST changes: +AMLO-251 PO; -AMLO10TA7 PO; +ASPI-1238 PO; -ASPI-983 PO; -CALC-6 PO; +CALC1TAB84 PO; -CATHETER FLUSH 10 ML SYR IV PRN; -HOLD METFORMIN - RECEIVED CONTRAST 20 ML VIAL IV SCH; -IOHEXOL 350 MG/ML 100 ML (OMNIPAQUE 350) VIAL IV ONE; -NS 100 ML (IVPB) BAG IV ONE; -PANT40TA3 PO; +PANT40TA52 PO
== END 2020-10-30 10:55 | disposition home or self-care (01) ==
PROVIDERS: ATTEND Physician Assistant
DX: M54.5 Low back pain (principal); Z85.118 Personal history of other malignant neoplasm of bronchus and lung; Z72.0 Tobacco use; Z96.659 Presence of unspecified artificial knee joint

== ENCOUNTER → 2020-11-05 | Outpatient (CLI) | payer MEDICARE, OTHER ==
--- NOTE | 2020-11-05 12:20 | Diagnostic Imaging Report ---
INDICATION: Routine screening. Comparison is made with prior mammogram from 07/03/2019 and 06/24/2018. 2-D and 3-D bilateral screening mammography was performed with CAD. Scattered fibroglandular densities are identified bilaterally. Benign nodules in the right breast appears stable. No spiculated mass or malignant appearing microcalcifications are seen. Axillae are unremarkable. IMPRESSION: BI-RADS Category 2 No mammographic features suspicious for malignancy are identified. ACR BI-RADS Category 2: Benign findings. Result letter will be mailed to the patient. Note: At least 10% of breast cancer is not imaged by mammography. Dictated by: Dictated on workstation # [id number]
--- NOTE | 2020-11-05 16:09 | Diagnostic Imaging Report ---
INDICATION: Postmenopausal state. COMPARISON: 05/21/2016 FINDINGS: AP Spine L1-L4: [BMD (g/cm2): 0.953] [T-Score: -2.1] [Z-Score: -0.7] [BMD Previous: 1.055] [BMD % Change: -9.7] LT Hip Neck: [BMD (g/cm2): 0.801] [T-Score: -1.7] [Z-Score: 0.0] LT Hip Total: [BMD (g/cm2):0.814] [T-Score:-1.5] [Z-Score: -0.1] [BMD Previous: 0.884] [BMD % Change: -7.9] RT Hip Neck: [BMD (g/cm2):0.871] [T-Score:-1.2] [Z-Score:0.5] RT Hip Total: [BMD (g/cm2):0.899] [T-score:-0.9] [Z-Score:0.6] [BMD Previous:0.962] [BMD % Change:-6.5] *Indicates significant change from prior examination based on 95% confidence level. World Health Organization criteria for BMD interpretation classify patients as Normal (T-score at or above -1.0), Osteopenic (T-score between -1.0 and -2.5) or Osteoporotic (T-score at or below -2.5). LIMITATIONS AND MODIFICATION: None. FRACTURE RISK (FRAX SCORE): The ten year probability of (%): Major Osteoporotic Fracture: [12.3] Hip Fracture: [2.8] IMPRESSION: 1. Osteopenia (Low bone mass). 2. No significant change in bone mineral density since prior examination. 3. See below National Osteoporosis Foundation guidelines on when to potentially initiate pharmacologic therapy. Based on the National Osteoporosis Foundation Guidelines, pharmacologic treatment should be initiated in any of the following, unless clinical conditions suggest otherwise: * Any patient with prior fragility fracture of the hip or vertebrae. A spine fracture indicates 5X risk for subsequent spine fracture and 2X risk for subsequent hip fracture. * Osteoporosis (T-score <-2.5). * Postmenopausal women and men age 50 and older with low bone mass/osteopenia (T-score between -1.0 and -2.5) by DXA and 10-year major osteoporotic fracture greater than 20% or a 10-year probability of hip fracture greater than 3%. These fracture risks are supplied above in the FRAX score, if applicable. * Clinician judgement and/or patient preferences may indicate treatment for people with 10-year fracture probabilities above or below these levels. Dictated by: Dictated on workstation # [id number]
== END ==
LOC: RAD 11:01
PROVIDERS: ATTEND Family Medicine
DX: Z12.31 Encounter for screening mammogram for malignant neoplasm of breast (principal); M85.80 Other specified disorders of bone density and structure, unspecified site; Z78.0 Asymptomatic menopausal state
CPT/HCPCS: 77063; 77067; 77080

== ENCOUNTER 2021-01-09 12:51 | Outpatient (RCR) | payer MEDICARE, OTHER | END 2021-02-26 13:17 | disposition home or self-care (01) | PROVIDERS: ATTEND Pain Medicine Interventional Pain Medicine | DX: M47.817 Spondylosis without myelopathy or radiculopathy, lumbosacral region (principal); M43.16 Spondylolisthesis, lumbar region; K21.9 Gastro-esophageal reflux disease without esophagitis; R03.0 Elevated blood-pressure reading, without diagnosis of hypertension; F17.210 Nicotine dependence, cigarettes, uncomplicated; F32.9 Major depressive disorder, single episode, unspecified; Z85.9 Personal history of malignant neoplasm, unspecified; Z96.652 Presence of left artificial knee joint; Z90.49 Acquired absence of other specified parts of digestive tract; Z90.710 Acquired absence of both cervix and uterus; Z90.89 Acquired absence of other organs ==

== ENCOUNTER → 2021-01-31 | Outpatient (CLI) | payer MEDICARE, OTHER ==
[~2021-01-31] MED LIST changes: +CATHETER FLUSH 10 ML SYR IV PRN; +HOLD METFORMIN - RECEIVED CONTRAST 20 ML VIAL IV SCH; +IOHEXOL 350 MG/ML 100 ML (OMNIPAQUE 350) VIAL IV ONE
[2021-01-31 15:02] LABS: BASOPHILS % (AUTO) 1 % (0-10); EOSINOPHILS # (AUTO) 0.1 10^3/uL (0.0-0.3); EOSINOPHILS % (AUTO) 2 % (0-10); HEMATOCRIT 46 % (35-52); HEMOGLOBIN 15.2 g/dL (11.5-16.0); LYMPHOCYTES # (AUTO) 2.4 10^3/uL (1.0-4.0); LYMPHOCYTES % (AUTO) 38 % (12-44); MEAN CORPUSCULAR HEMOGLOBIN 31 pg (25-34); MEAN CORPUSCULAR HGB CONC 33 g/dL (32-36); MEAN CORPUSCULAR VOLUME 94 fL (80-99); MEAN PLATELET VOLUME 10.1 fL (9.0-12.2); MONOCYTES # (AUTO) 0.4 10^3/uL (0.0-1.0); MONOCYTES % (AUTO) 7 % (0-12); NEUTROPHILS # (AUTO) 3.3 10^3/uL (1.8-7.8); NEUTROPHILS % (AUTO) 53 % (42-75); PLATELET COUNT 313 10^3/uL (130-400); WHITE BLOOD COUNT 6.2 10^3/uL (4.3-11.0)
[2021-01-31 15:22] LABS: ALANINE AMINOTRANSFERASE 18 U/L (0-55); ALBUMIN 3.8 GM/DL (3.2-4.5); ALKALINE PHOSPHATASE 83 U/L (40-136); BILIRUBIN,TOTAL 0.4 MG/DL (0.1-1.0); BUN/CREATININE RATIO 16; CALCIUM 10.1 MG/DL (8.5-10.1); CARBON DIOXIDE 21 MMOL/L (21-32); CHLORIDE 107 MMOL/L (98-107); CREATININE SERUM 0.74 MG/DL (0.60-1.30); GFR ESTIMATED > 60; GLUCOSE 153 MG/DL (70-105); POTASSIUM 3.5 MMOL/L (3.6-5.0); SODIUM 139 MMOL/L (135-145); TOTAL PROTEIN 6.4 GM/DL (6.4-8.2)
--- NOTE | 2021-01-31 15:57 | Diagnostic Imaging Report ---
EXAMINATION: CT chest with intravenous contrast. TECHNIQUE: Multiple contiguous axial images were obtained through the chest after the uneventful administration of intravenous contrast. All CT scans use one or more of the following dose optimizing techniques: automated exposure control, MA and/or KvP adjustment based on patient size and exam type or iterative reconstruction. HISTORY: Lung cancer. COMPARISON: 02/14/2020 FINDINGS: There is no edema or pneumonia. No pleural effusion. No pneumothorax. No suspicious nodules. There has been a left-sided lobectomy. Hilum is distorted. Lungs are moderately emphysematous. There is no axillary or supraclavicular lymphadenopathy. There is no mediastinal lymphadenopathy. Heart size is normal. There are mild coronary artery calcifications. No pericardial effusion. Aorta is normal in caliber. Limited views of the upper abdomen show a small cyst in the left kidney. There is a duodenal diverticulum. There are no suspicious osseous lesions. IMPRESSION: 1. No metastatic disease seen in the chest. Dictated by: Dictated on workstation # [id number]
== END ==
LOC: RAD 15:45
PROVIDERS: ATTEND Internal Medicine Hematology & Oncology
DX: C34.92 Malignant neoplasm of unspecified part of left bronchus or lung (principal)
CPT/HCPCS: 36415; 71260; 80053; 85025

== ENCOUNTER → 2021-02-12 | Outpatient (CLI) | payer MEDICARE, OTHER ==
[~2021-02-12] MED LIST changes: -CATHETER FLUSH 10 ML SYR IV PRN; -HOLD METFORMIN - RECEIVED CONTRAST 20 ML VIAL IV SCH; -IOHEXOL 350 MG/ML 100 ML (OMNIPAQUE 350) VIAL IV ONE
--- NOTE | 2021-02-12 12:19 | Diagnostic Imaging Report ---
PROCEDURE: MRI lumbar spine. TECHNIQUE: Multiplanar, multisequence MRI of the lumbar spine was performed without contrast. INDICATION: Low back pain. Compared with lumbar MRI performed 10/18/2019. FINDINGS: Lumbar statures stable and normal. Grade 1 anterolisthesis degenerative L4 on L5 showed no progression. The posterior cortices are off about 2 mm. No identifiable defect to the pedicles or pars. No acute or chronic lumbar fracture evident. No bone contusion or marrow edema. The conus appeared normal. Left renal cortical cysts stable. No paravertebral mass, hemorrhage or fluid collection. Found no acute epidural abnormality. T12-L1 level and disc is normal, no stenosis. L1-L2: There is disc desiccation, stature loss, osteophyte disc material anterior greater than posterior, no resultant canal foraminal or recess stenosis. L2-L3: There is thickening of the ligamentum flavum and mild facet arthrosis. The disc shows desiccation and mild circumferential annular bulge. No focal herniation and no resultant stenosis. L3-L4: There is mild thickening of the ligamentum flavum and facet arthrosis. The disc shows slight desiccation and stature loss without focal herniation. Osteophyte disc material is asymmetric to the left and results in [id number] left foraminal stenosis. The right foramen is only mildly narrowed, this level unchanged. No significant canal stenosis. L4-L5: Disc desiccation, stature loss, bulge and endplate osteophytes are present. Findings result in moderate to severe right and moderate left foraminal stenosis. There is thickening ligament flava and facet arthrosis with mild to moderate canal stenosis. Level unchanged. L5-S1: There is facet arthrosis but no significant canal foraminal or recess stenosis. The disc is nondisplaced. IMPRESSION: 1. No change in grade 1 degenerative anterolisthesis L4 on L5, degenerative changes to the discs, endplates and posterior elements result in multilevel canal and foraminal stenoses greatest at the L4-L5 level, the disease showing no significant interval progression. 2. No acute-appearing abnormality. Dictated by: Dictated on workstation # [id number]
== END ==
LOC: RAD 11:00
PROVIDERS: ATTEND Pain Medicine Interventional Pain Medicine
DX: M51.36 Other intervertebral disc degeneration, lumbar region (principal); M48.061 Spinal stenosis, lumbar region without neurogenic claudication; M43.16 Spondylolisthesis, lumbar region
CPT/HCPCS: 72148

== ENCOUNTER → 2021-03-18 | Outpatient (CLI) | payer MEDICARE, OTHER | LOC: CARD 10:30 | PROVIDERS: ATTEND Internal Medicine Cardiovascular Disease | DX: I08.0 Rheumatic disorders of both mitral and aortic valves (principal) | CPT/HCPCS: 93306 ==

== ENCOUNTER → 2021-03-28 | Outpatient (CLI) | payer MEDICARE, OTHER ==
[~2021-03-28] MED LIST changes: +REGADENOSON 0.4 MG/5 ML SYR (LEXISCAN) IV ONE
[2021-03-28] MEDS: CATHETER FLUSH 10 ML SYR IV PRN ×2 (08:05→09:35)
[2021-03-28 09:28] VITALS: BP 149/83
== END ==
LOC: CARD 08:15
PROVIDERS: ATTEND Internal Medicine Cardiovascular Disease
DX: R06.09 Other forms of dyspnea (principal)
CPT/HCPCS: 78452; 93017; A9502

== ENCOUNTER 2021-08-06 04:03 | Inpatient (IN) | payer MEDICARE, OTHER ==
[~2021-08-06] VITALS: Ht 165 cm; Wt 102.3 kg
[~2021-08-06 04:03] MED LIST changes: -REGADENOSON 0.4 MG/5 ML SYR (LEXISCAN) IV ONE
[2021-08-06] MEDS ORDERED: PANTOPRAZOLE 40 MG (PROTONIX) VIAL IV ONE (04:15)
[2021-08-06] MEDS ORDERED: ONDANSETRON 4 MG/2 ML (SDV) Z0FRAN IVP ONE (04:15)
[2021-08-06] MEDS ORDERED: NS IV 1000 ML 1,000 ML IV SCH ×2 (04:15)
--- NOTE | 2021-08-06 04:15 | ED Abdominal Pain ---
General Chief Complaint: Abdominal/GI Problems Stated Complaint: ABD PAIN Source of Information: Patient Exam Limitations: No Limitations History of Present Illness Date Seen by Provider: Aug 06, 2021 Time Seen by Provider: 04:05 Initial Comments Patient to the ER by EMS from home chief complaint she is having some epigastric abdominal pain and right upper quadrant pain. She took some [place] and it did not go away. Pain started around 2200 last night. She has had her gallbladder out as well as appendix out in the past. She says she has had endoscopy years ago. She has not been having any problems prior to this. EMS gave her 50 mcg of fentanyl on route and patient states it did not really help her pain but it did make her very nauseated. She had a good blood pressure heart rate in the 60s per EMS. Blood sugar 190. No fevers or chills. No diarrhea or blood in the stool. She ate chili from [employer] prior to the pain starting. No one else who ate with her has had any sick complaints. She has a history of left lung cancer. She is on Eliquis. Pain radiates through to the back. No history of pancreatitis. Does not drink alcohol. Patient has no history of coronary disease or stents but she has carotid disease and has hypertension, hyperlipidemia. She says she had atrial fibrillation once but no history of blood clots. She is known to Dr. Combs and Dr. Gonzalez. Echocardiogram March 2021 demonstrates EF of 60 to 65% with moderate regurgitation of the mitral valve. Sclerotic bicuspid aortic valve. Cardiac catheterization from 2018 demonstrates aortic arch calcifications without thoracic aortic aneurysm or dissection. Mild coronary artery disease. Allergies and Home Medications Allergies Coded Allergies: Sulfa (Sulfonamide Antibiotics) (Unverified Allergy, Unknown, 02/10/06) lisinopril (Unverified Allergy, Unknown, 11/15/13) fentanyl (Verified Adverse Reaction, Unknown, hypotension Nausea, 08/06/21) Patient Home Medication List Home Medication List Reviewed: Yes Amlodipine Besylate (Amlodipine Besylate) 10 Mg Tablet, 10 MG PO DAILY, (Reported) Entered as Reported by: RAS FLORES on 03/16/19 1516 Last Action: Held Apixaban (Eliquis) 5 Mg Tablet, 5 MG PO BID, (Reported) Entered as Reported by: RAS FLORES on 8/15/19 1521 Last Action: Held Aspirin (Aspirin) 81 Mg Tab.chew, 81 MG PO DAILY, (Reported) Entered as Reported by: RAS FLORES on 03/16/191518 Last Action: Held Atorvastatin Calcium (Atorvastatin Calcium) 10 Mg Tablet, 10 MG PO Q48H, (Reported) Entered as Reported by: RAS FLORES on 03/16/191515 Last Action: Held Calcium Carbonate (Calcium Carbonate) 500 Mg Tablet, 500 MG PO BID, (Reported) Entered as Reported by: TOM LUQUE on 08/06/211611 Last Action: Held Cholecalciferol (Vitamin D3) (Vitamin D3) 50 Mcg Capsule, 50 MCG PO BID, (Reported) Entered as Reported by: TMO LUQUE on 08/06/211611 Last Action: Held Dicyclomine HCl (Dicyclomine HCl) 10 Mg Capsule, 10 MG PO TID, (Reported) Entered as Reported by: TOM LUQUE on 08/06/211611 Last Action: Held Metoprolol Tartrate (Metoprolol Tartrate) 100 Mg Tablet, 100 MG PO BID, (Reported) Entered as Reported by: RAS FLORES on 03/16/191515 Last Action: Converted Multivitamin (Multivitamins) 1 Each Tablet, 1 TAB PO DAILY, (Reported) Entered as Reported by: RAS FLORES on 03/16/191515 Last Action: Held Crowder 3 Polyunsat Fatty Acids (Fish Oil 1,000 mg Capsule) 1,000 Mg Cap, 1,000 MG PO BID, (Reported) Entered as Reported by: RAS FLORES on 03/16/191515 Last Action: Held Pantoprazole Sodium (Pantoprazole Sodium) 40 Mg Tablet.dr, 40 MG PO DAILY, (Reported) Entered as Reported by: RAS FLORES on 03/16/191515 Last Action: Held Valsartan (Valsartan) 320 Mg Tablet, 320 MG PO DAILY, (Reported) Entered as Reported by: RAS FLORES on 03/16/191515 Last Action: Held Discontinued Medications Calcium Carbonate/Vitamin D3 (Calcium 600 + Vit D 200 Tablet) 1 Each Tablet, 1 TAB PO DAILY, (Reported) Discontinued Reason: Prescription changed Entered as Reported by: RAS FLORES on 03/16/191515 Cholecalciferol (Vitamin D3) (Vitamin D3) 2,000 Unit Capsule, 2,000 UNIT PO DAILY, (Reported) Discontinued Reason: Prescription changed Entered as Reported by: RAS FLORES on 03/16/19 151 Hydrocodone Bit/Acetaminophen (HYDROcodone/APAP 10/325 TABLET) 1 Each Tablet, 1 EA PO Q4H PRN for PAIN-MODERATE Discontinued Reason: No Longer Taking Prescribed by: DANIEL THOMPSON on 03/29/19 0843 Last Action: Discontinued L.acidoph & Paracasei,B.lactis (Probiotic) 1 Each Capsule, 1 CAP PO DAILY, (Reported) Discontinued Reason: No Longer Taking Entered as Reported by: LUPE DALTON on 08/10/17 0741 Last Action: Discontinued Sennosides/Docusate Sodium (Senna-Time S Tablet) 1 Each Tablet, 2 EA PO BID Discontinued Reason: No Longer Taking Prescribed by: DANIEL THOMPSON on 03/29/19 0843 Last Action: Discontinued Tramadol HCl (Tramadol HCl) 50 Mg Tablet, 50 MG PO Q6H PRN for PAIN-MILD Discontinued Reason: No Longer Taking Prescribed by: DANIEL THOMPSON on 03/29/19 0915 Last Action: Discontinued Review of Systems Review of Systems Constitutional: No chills, No diaphoresis EENTM: No Blurred Vision, No Double Vision Respiratory: Denies Cough, Denies Shortness of Air Cardiovascular: Denies Chest Pain, Denies Lightheadedness Gastrointestinal: See HPI; Denies Abdomen Distended; Abdominal Pain; Denies Constipated, Denies Diarrhea; Nausea; Denies Poor Fluid Intake, Denies Vomiting Genitourinary: Denies Burning, Denies Discharge Musculoskeletal: No back pain, No joint pain Psychiatric/Neurological: Denies Anxiety, Denies Depressed All Other Systems Reviewed Negative Unless Noted: Yes Past Mahcuqs-Btxqah-Oilyat Hx Patient Social History Tobacco Use?: Yes Tobacco type used: Cigarettes Smoking Status: Current Everyday Smoker Use of E-Cig and/or Vaping dev: No Substance use?: No Seasonal Allergies Seasonal Allergies: No Past Medical History Surgeries: Yes (LEFT UPPER LOBECTOMY) Orthopedic Respiratory: Yes (LUNG CA AND UPPER LOBECTOMY LEFT SIDE) COPD Currently Using CPAP: No Currently Using BIPAP: No Cardiac: Yes High Cholesterol, Hypertension Neurological: No Genitourinary: No Gastrointestinal: Yes Gastroesophageal Reflux, Hiatal Hernia Musculoskeletal: Yes Chronic Back Pain Endocrine: No HEENT: No Cancer: Yes Lung What Type of Treatment Did You: Radiation, Surgical Intervention Psychosocial: Yes Depression Integumentary: No Blood Disorders: No Family Medical History Heart Disease, Cancer, Diabetes, Hypertension, Stroke Physical Exam Vital Signs Vital Signs - First Documented 08/06/21 04:05 Temp 36.5 Pulse 58 Resp 20 B/P (MAP) 96/69 (78) Pulse Ox 98 O2 Delivery Room Air Capillary Refill : Height/Weight/BMI Height: 5'5.00" Weight: 186lbs. 9.6oz. [id number]; 31.2 BMI Method: General Appearance: WD/WN, moderate distress HEENT: PERRL/EOMI; No pharynx normal (Dry oral mucosa) Neck: full range of motion, normal inspection Respiratory: chest non-tender, lungs clear, normal breath sounds, no respiratory distress, no accessory muscle use Cardiovascular: normal peripheral pulses, regular rate, rhythm, no murmur Peripheral Pulses: 2+ Dorsalis Pedis (R), 2+ Left Dors-Pedis (L) Gastrointestinal: normal bowel sounds, soft, no organomegaly, tenderness (Epigastric) Extremities: normal range of motion, non-tender, normal inspection, no pedal edema, normal capillary refill Neurologic/Psychiatric: alert, normal mood/affect, oriented x 3 Skin: normal color, warm/dry Progress/Results/Core Measures Results/Orders Lab Results Laboratory Tests Test 08/06/21 04:10 08/06/21 04:45 Range/Units White Blood Count 9.3 4.3-11.0 10^3/uL Red Blood Count 4.62 3.80-5.11 10^6/uL Hemoglobin 14.4 11.5-16.0 g/dL Hematocrit 44 35-52 % Mean Corpuscular Volume 95 80-99 fL Mean Corpuscular Hemoglobin 31 25-34 pg Mean Corpuscular Hemoglobin Concent 33 32-36 g/dL Red Cell Distribution Width 13.7 10.0-14.5 % Platelet Count 333 130-400 10^3/uL Mean Platelet Volume 10.2 9.0-12.2 fL Immature Granulocyte % (Auto) 0 % Neutrophils (%) (Auto) 78 H 42-75 % Lymphocytes (%) (Auto) 16 12-44 % Monocytes (%) (Auto) 5 0-12 % Eosinophils (%) (Auto) 0 0-10 % Basophils (%) (Auto) 0 0-10 % Neutrophils # (Auto) 7.3 1.8-7.8 10^3/uL Lymphocytes # (Auto) 1.5 1.0-4.0 10^3/uL Monocytes # (Auto) 0.5 0.0-1.0 10^3/uL Eosinophils # (Auto) 0.0 0.0-0.3 10^3/uL Basophils # (Auto) 0.0 0.0-0.1 10^3/uL Immature Granulocyte # (Auto) 0.0 0.0-0.1 10^3/uL Sodium Level 139 135-145 MMOL/L Potassium Level 4.5 3.6-5.0 MMOL/L Chloride Level 105 98-107 MMOL/L Carbon Dioxide Level 21 21-32 MMOL/L Anion Gap 13 5-14 MMOL/L Blood Urea Nitrogen 22 H 7-18 MG/DL Creatinine 0.93 0.60-1.30 MG/DL Estimat Glomerular Filtration Rate 59 BUN/Creatinine Ratio 24 Glucose Level 182 H 70-105 MG/DL Calcium Level 9.3 8.5-10.1 MG/DL Corrected Calcium 9.7 8.5-10.1 MG/DL Magnesium Level 1.9 1.6-2.4 MG/DL Total Bilirubin 0.6 0.1-1.0 MG/DL Aspartate Amino Transf (AST/SGOT) 1109 H 5-34 U/L Alanine Aminotransferase (ALT/SGPT) 585 H 0-55 U/L Alkaline Phosphatase 121 40-136 U/L Troponin I 0.040 H <0.028 NG/ML C-Reactive Protein High Sensitivity 0.29 0.00-0.50 MG/DL Total Protein 6.3 L 6.4-8.2 GM/DL Albumin 3.5 3.2-4.5 GM/DL Triglycerides Level 156 H <150 MG/DL Lipase 23 8-78 U/L Urine Color YELLOW Urine Clarity SL CLOUDY Urine pH 7.0 5-9 Urine Specific Filer 1.020 1.016-1.022 Urine Protein NEGATIVE NEGATIVE Urine Glucose (UA) NEGATIVE NEGATIVE Urine Ketones NEGATIVE NEGATIVE Urine Nitrite NEGATIVE NEGATIVE Urine Bilirubin NEGATIVE NEGATIVE Urine Urobilinogen 1.0 < = 1.0 MG/DL Urine Leukocyte Esterase NEGATIVE NEGATIVE Urine RBC (Auto) NEGATIVE NEGATIVE Urine RBC NONE /HPF Urine WBC 0-2 /HPF Urine Squamous Epithelial Cells 5-10 /HPF Urine Crystals PRESENT H /LPF Urine Amorphous Sediment FEW DAVE PHOSPHATE H /LPF Urine Bacteria FEW H /HPF Urine Casts NONE /LPF Urine Mucus NEGATIVE /LPF Urine Culture Indicated NO My Orders Orders - MURALI LAURENT Ondansetron Injection (Zofran Injectio (08/06/21 04:15) Pantoprazole Injection (Protonix Injecti (08/06/21 04:15) Ed Iv/Invasive Line Start (08/06/21 04:08) Ns Iv 1000 Ml (Sodium Chloride 0.9%) (08/06/21 04:15) Lipase (08/06/21 04:08) Cbc With Automated Diff (08/06/21 04:08) Comprehensive Metabolic Panel (08/06/21 04:08) Hs C Reactive Protein (08/06/21 04:08) Magnesium (08/06/21 04:08) Ua Culture If Indicated (08/06/21 04:08) Chest 1 View, Ap/Pa Only (08/06/21 04:15) Ed Iv/Invasive Line Start (08/06/21 04:15) Ns Iv 1000 Ml (Sodium Chloride 0.9%) (08/06/21 04:15) Continuous Ekg Monitoring (08/06/21 04:30) Ekg Tracing (08/06/21 04:30) Troponin I [place]ad[place] (08/06/21 04:10) Ct Abdomen/Pelvis W (08/06/21 04:41) Morphine Injection (Morphine Injection (08/06/21 04:52) Aspirin Chewable Tablet (Baby Aspirin Ch (08/06/21 05:00) Hydromorphone Injection (Dilaudid Inject (08/06/21 05:30) Triglycerides (08/06/21 04:10) Medications Given in ED Vital Signs/I&O 08/06/21 04:05 Temp 36.5 Pulse 58 Resp 20 B/P (MAP) 96/69 (78) Pulse Ox 98 O2 Delivery Room Air Progress Progress Note #1: Time: 04:14 Progress Note After receiving the fentanyl her blood pressure dropped out to 96/69. We will hold off any further pain medicines and get some IV fluids and her and plan to get a angiogram to examine her abdominal aorta as well as the rest the viscera. 8 of Zofran. Protonix IV. EKG. she denies any history of dilated or aneurysmal aorta. Differential includes gastroenteritis, gastritis, PUD, pancreatitis, renal and/or aortic dissection given her severe retroperitoneal pain. She does not have a history of renal/ureteral stones however will obtain some urine. Atypical angina is being considered so if she can tolerate it we will give her some aspirin but for now we will settle for an EKG and troponin. Progress Note #2: Time: 05:26 Progress Note Patient was given 4 of morphine which she tolerated well but did not derive any significant pain control. We will give her half milligram Dilaudid. CT review shows acute pancreatitis. Lipase is still pending. Marginal elevation of the troponin can be trended but is likely due to local inflammation. Aorta appears not dilated, nonaneurysmal and nondissected. Urine unremarkable. Marginal elevation in transaminases likely from local inflammation Initial ECG Impression Date: Aug 06, 2021 Initial ECG Impression Time: 04:15 Initial ECG Rate: 62 Initial ECG Rhythm: Normal Sinus Initial ECG Intervals: QT (494) Initial ECG Impression: Normal, Nonspecific Changes Comment Artifact noted. Appears to be a sinus rhythm with P waves preceding the QRS complexes. No evidence of acute ST elevation or depression Diagnostic Imaging Diagonstic Imaging: CT Plain Films/CT/US/NM/MRI: abdomen, pelvis Comments Inflammatory fat stranding around the head of the pancreas. [facility] [place], [place] NAME: YUMI DIXON [facility] REC#: [id number] PT STATUS: ADM IN : 1945 PHYSICIAN: MURALI LAURENT MD ADMIT DATE: 08/06/21 Signed Date of Exam:08/06/21 CT ABDOMEN/PELVIS W INDICATION: Right upper quadrant abdominal pain. TECHNIQUE: Multiple contiguous axial images were obtained through the abdomen and pelvis after administration of intravenous contrast. Auto Exposure Controls were utilized during the CT exam to meet ALARA standards for radiation dose reduction. All CT scans use one or more of the following dose optimizing techniques: automated exposure control, MA and/or KvP adjustment based on patient size and exam type or iterative reconstruction. Comparison is made to the previous study of 03/16/2016. The visualized portions of the lung bases are clear. There is no pleural fluid collection. There was no free intraperitoneal air. The liver shows no focal lesion without contrast. Spleen, adrenals, and kidneys appear normal. There appears to be some edema in the peripancreatic fat about the pancreatic head, as well as some thickening of the descending portion of the duodenum adjacent to the pancreatic head. There is no well-defined fluid collection or abscess. Visualized bowel loops show no sign of obstruction. There is no pelvic mass or free fluid. IMPRESSION: There is edema and thickening of the pancreatic head and adjacent portions of the duodenum. The findings may represent focal pancreatitis with secondary duodenitis. There is no abscess. There is no biliary dilatation. Dictated by: Dictated on workstation # [id number] Dict: 08/06/21618 Trans: 08/06/2134 [facility] [id number] Interpreted by: RAHAT MEANS MD Electronically signed by: RAHAT MEANS MD 08/06/2134 Reviewed: Reviewed by Tn Diagonstic Imaging: Xray Plain Films/CT/US/NM/MRI: chest Comments No acute cardiopulmonary process on 1 view chest x-ray [facility], [place] NAME: YUMI DIXON [facility] REC#: [id number] PT STATUS: ADM IN : 1945 PHYSICIAN: MURALI LAURENT MD ADMIT DATE: 08/06/21 Signed Date of Exam:08/06/21 CHEST 1 VIEW, AP/PA ONLY INDICATION: Epigastric pain. Frontal chest obtained at 04:51 a.m. and compared to 12/19/2015. FINDINGS: Heart and mediastinal silhouette are normal in appearance. The lungs are clear. There is no pneumothorax or pleural fluid. IMPRESSION: Negative chest. Dictated by: Dictated on workstation # [id number] Dict: 08/06/21613 Trans: 08/06/21 0834 [id number] Interpreted by: RAHAT MEANS MD Electronically signed by: RAHAT MEANS MD 08/06/21 0834 Reviewed: Reviewed by Me Departure Communication (Admissions) Time/Spoke to Admitting Phy: 05:45 Discussed the case with Dr. Gonzalez and she agrees to admit the patient for pain management of fluids. Consulted Dr. Macias, general surgery Time/Spoke to Consulting Phy: 05:45 Dr. Macias agrees to consult for general surgery. Impression Primary Impression: Pancreatitis Qualified Codes: K85.90 - Acute pancreatitis without necrosis or infection, unspecified Disposition: ADMITTED INPATIENT Condition: Stable Admissions Decision to Admit Reason: Admit from ER (General) Decision to Admit/Date: Aug 06, 2021 Time/Decision to Admit Time: 05:25 Departure-Patient Inst. Referrals: NO,LOCAL PHYSICIAN (PCP) Primary Care Physician MURALI LAURENT Aug 06, 2021 04:15
[2021-08-06 04:21] LABS: BASOPHILS % (AUTO) 0 % (0-10); EOSINOPHILS % (AUTO) 0 % (0-10); HEMATOCRIT 44 % (35-52); HEMOGLOBIN 14.4 g/dL (11.5-16.0); LYMPHOCYTES # (AUTO) 1.5 10^3/uL (1.0-4.0); LYMPHOCYTES % (AUTO) 16 % (12-44); MEAN CORPUSCULAR HEMOGLOBIN 31 pg (25-34); MEAN CORPUSCULAR HGB CONC 33 g/dL (32-36); MEAN CORPUSCULAR VOLUME 95 fL (80-99); MEAN PLATELET VOLUME 10.2 fL (9.0-12.2); MONOCYTES # (AUTO) 0.5 10^3/uL (0.0-1.0); MONOCYTES % (AUTO) 5 % (0-12); NEUTROPHILS # (AUTO) 7.3 10^3/uL (1.8-7.8); NEUTROPHILS % (AUTO) 78 % (42-75); PLATELET COUNT 333 10^3/uL (130-400); WHITE BLOOD COUNT 9.3 10^3/uL (4.3-11.0)
[2021-08-06 04:40] LABS: ALBUMIN 3.5 GM/DL (3.2-4.5); POTASSIUM 4.5 MMOL/L (3.6-5.0)
[2021-08-06 04:41] LABS: CALCIUM 9.3 MG/DL (8.5-10.1)
[2021-08-06 04:43] LABS: TOTAL PROTEIN 6.3 GM/DL (6.4-8.2)
[2021-08-06 04:44] LABS: BILIRUBIN,TOTAL 0.6 MG/DL (0.1-1.0)
[2021-08-06 04:46] LABS: CREATININE SERUM 0.93 MG/DL (0.60-1.30)
[2021-08-06 04:49] LABS: MAGNESIUM 1.9 MG/DL (1.6-2.4)
[2021-08-06 04:50] LABS: BILIRUBIN,URINE NEGATIVE (NEGATIVE); CLARITY,URINE SL CLOUDY; COLOR,URINE YELLOW; GLUCOSE, URINE (UA) NEGATIVE (NEGATIVE); KETONES,URINE NEGATIVE (NEGATIVE); LEUKOCYTE ESTERASE ,URINE NEGATIVE (NEGATIVE); NITRITE,URINE NEGATIVE (NEGATIVE); PROTEIN,URINE NEGATIVE (NEGATIVE)
[2021-08-06] MEDS ORDERED: morphine INJ 10 MG/ML 1ML (SYR OR VIAL) IVP STA (04:52)
[2021-08-06] MEDS ORDERED: ASPIRIN 81 MG CHEW (CHILDREN'S ASA) PO ONE (05:00)
[2021-08-06 05:10] LABS: WBC,URINE 0-2 /HPF
[2021-08-06 05:11] LABS: AMORPHOUS SEDIMENT,UR FEW AMOR PHOSPHATE /LPF; BACTERIA,URINE FEW /HPF
[2021-08-06] MEDS ORDERED: HYDROmorphone 2 MG/ML VIAL (DILAUDID) IV ONE (05:30)
[2021-08-06] MEDS ORDERED: CATHETER FLUSH 10 ML SYR IV PRN (05:45)
[2021-08-06] MEDS ORDERED: HOLD METFORMIN - RECEIVED CONTRAST 20 ML VIAL IV SCH (05:45)
[2021-08-06] MEDS ORDERED: IOHEXOL 350 MG/ML 150 ML (OMNIPAQUE 350) VIAL IV ONE (05:45)
[2021-08-06] MEDS ORDERED: NS 100 ML (IVPB) BAG IV ONE (05:45)
--- NOTE | 2021-08-06 06:16 | Diagnostic Imaging Report ---
INDICATION: Epigastric pain. Frontal chest obtained at 04:51 a.m. and compared to 12/19/2015. FINDINGS: Heart and mediastinal silhouette are normal in appearance. The lungs are clear. There is no pneumothorax or pleural fluid. IMPRESSION: Negative chest. Dictated by: Dictated on workstation # [id number]
--- NOTE | 2021-08-06 06:25 | Diagnostic Imaging Report ---
INDICATION: Right upper quadrant abdominal pain. TECHNIQUE: Multiple contiguous axial images were obtained through the abdomen and pelvis after administration of intravenous contrast. Auto Exposure Controls were utilized during the CT exam to meet ALARA standards for radiation dose reduction. All CT scans use one or more of the following dose optimizing techniques: automated exposure control, MA and/or KvP adjustment based on patient size and exam type or iterative reconstruction. Comparison is made to the previous study of 03/16/2016. The visualized portions of the lung bases are clear. There is no pleural fluid collection. There was no free intraperitoneal air. The liver shows no focal lesion without contrast. Spleen, adrenals, and kidneys appear normal. There appears to be some edema in the peripancreatic fat about the pancreatic head, as well as some thickening of the descending portion of the duodenum adjacent to the pancreatic head. There is no well-defined fluid collection or abscess. Visualized bowel loops show no sign of obstruction. There is no pelvic mass or free fluid. IMPRESSION: There is edema and thickening of the pancreatic head and adjacent portions of the duodenum. The findings may represent focal pancreatitis with secondary duodenitis. There is no abscess. There is no biliary dilatation. Dictated by: Dictated on workstation # [id number]
[2021-08-06 06:54] VITALS: BP 141/80
[2021-08-06] MEDS ORDERED: PROMETHAZINE INJ 25 MG/ML (PHENERGAN) AMP IVP PRN (07:15)
--- NOTE | 2021-08-06 07:52 | Consultation - Surgery ---
History of Present Illness History of Present Illness Patient Consulted On(arden/time) 08/06/21 07:46 Date Seen by Provider: Aug 06, 2021 Time Seen by Provider: 07:47 History of Present Illness Consult requested by Dr. Gonzalez for pancreatitis. 76 year old female began having sharp pain in epigastric and ruq area last night. Comes and goes with variable intensity. Radiates to back. Movement was making worse. The pain medications and medicines have helped. Has had previous episode before and had gallbladder removed at that time. Patient with some nausea. Denies fever sweats chills shortness of breath or chest pain. Patient with CT scan showing edema and thickening around head of pancreas and duodenum consistent with pancreatitis. Labs elevated triglycerides, ast, alt. Lipase 23. Allergies and Home Medications Allergies Coded Allergies: Sulfa (Sulfonamide Antibiotics) (Unverified Allergy, Unknown, 02/10/06) lisinopril (Unverified Allergy, Unknown, 11/15/13) fentanyl (Verified Adverse Reaction, Unknown, hypotension Nausea, 08/06/21) Patient Home Medication List Home Medication List Reviewed: Yes Amlodipine Besylate (Amlodipine Besylate) 10 Mg Tablet, 10 MG PO DAILY, (Reported) Entered as Reported by: RAS FLORES on 03/16/19 151 Apixaban (Eliquis) 5 Mg Tablet, 5 MG PO BID, (Reported) Entered as Reported by: RAS FLORES on 03/16/19 152 Aspirin (Aspirin) 81 Mg Tab.chew, 81 MG PO DAILY, (Reported) Entered as Reported by: RAS FLORES on 03/16/19 151 Atorvastatin Calcium (Atorvastatin Calcium) 10 Mg Tablet, 10 MG PO Q48H, (Reported) Entered as Reported by: RAS FLORES on 03/16/191515 Calcium Carbonate/Vitamin D3 (Calcium 600 + Vit D 200 Tablet) 1 Each Tablet, 1 TAB PO DAILY, (Reported) Entered as Reported by: RAS FLORES on 03/16/191515 Cholecalciferol (Vitamin D3) (Vitamin D3) 2,000 Unit Capsule, 2,000 UNIT PO DAILY, (Reported) Entered as Reported by: RAS FLORES on 03/16/191515 Hydrocodone Bit/Acetaminophen (HYDROcodone/APAP 10/325 TABLET) 1 Each Tablet, 1 EA PO Q4H PRN for PAIN-MODERATE Prescribed by: DANIEL THOMPSON on 03/29/19 0843 L.acidoph & Paracasei,B.lactis (Probiotic) 1 Each Capsule, 1 CAP PO DAILY, (Reported) Entered as Reported by: LUPE DALTON on 08/10/17 0741 Metoprolol Tartrate (Metoprolol Tartrate) 100 Mg Tablet, 100 MG PO BID, (Reported) Entered as Reported by: RAS FLORES on 03/16/19 151 Multivitamin (Multivitamins) 1 Each Tablet, 1 TAB PO DAILY, (Reported) Entered as Reported by: RAS FLORES on 03/16/19 151 [place] 3 Polyunsat Fatty Acids (Fish Oil 1,000 mg Capsule) 1,000 Mg Cap, 1,000 MG PO BID, (Reported) Entered as Reported by: RAS FLORES on 03/16/191515 Pantoprazole Sodium (Pantoprazole Sodium) 40 Mg Tablet.dr, 40 MG PO DAILY, (Reported) Entered as Reported by: RAS FLORES on 03/16/19 151 Sennosides/Docusate Sodium (Senna-Time S Tablet) 1 Each Tablet, 2 EA PO BID Prescribed by: DANIEL THOMPSON on 03/29/19 0843 Tramadol HCl (Tramadol HCl) 50 Mg Tablet, 50 MG PO Q6H PRN for PAIN-MILD Prescribed by: DANIEL THOMPSON on 03/29/19 0915 Valsartan (Valsartan) 320 Mg Tablet, 320 MG PO DAILY, (Reported) Entered as Reported by: RAS FLORES on 03/16/191515 Past Hdcptxx-Rrmrrd-Uygjds Hx Patient Social History Smoking Status: Current Everyday Smoker Type Used: Cigarettes Recent Hopitalizations: Yes (LEFT TOTAL KNEE REPLACEMENT 03-20) Alcohol Use?: No Have you traveled recently?: No Immunizations Up To Date Date of Pneumonia Vaccine: Nov 15, 2009 Date of Influenza Vaccine: Jun 16, 2020 Seasonal Allergies Seasonal Allergies: No Surgeries History of Surgeries: Yes (LEFT UPPER LOBECTOMY) Surgeries: Gallbladder, Orthopedic Respiratory History of Respiratory Disorde: Yes (LUNG CA AND UPPER LOBECTOMY LEFT SIDE) Respiratory Disorders: COPD Cardiovascular History of Cardiac Disorders: Yes Cardiac Disorders: High Cholesterol, Hypertension Neurological History of Neurological Disord: No Genitourinary History of Genitourinary Disor: No Gastrointestinal History of Gastrointestinal Di: Yes Gastrointestinal Disorders: Gastroesophageal Reflux, Hiatal Hernia Musculoskeletal History of Musculoskeletal Dis: Yes Musculoskeletal Disorders: Chronic Back Pain Endocrine History of Endocrine Disorders: No HEENT History of HEENT Disorders: No Cancer History of Cancer: Yes Cancer: Lung Psychosocial History of Psychiatric Problem: Yes Behavioral Health Disorders: Depression Integumentary History of Skin or Integumenta: No Blood Transfusions History of Blood Disorders: No Reviewed Nursing Assessment Reviewed/Agree w Nursing PMH: Yes Family Medical History Significant Family History: Heart Disease, Cancer, Diabetes, Hypertension, Stroke Review of Systems-General Constitutional: No diaphoresis, No weakness EENTM: No blurred vision, No double vision Respiratory: No dyspnea on exertion, No short of breath Gastrointestinal: abdominal pain (RUQ), nausea Genitourinary: No decreased output, No discharge Musculoskeletal: back pain; No joint pain Skin: No change in color, No change in hair/nails Psychiatric/Neurological: Denies Anxiety, Denies Depressed, Denies Emotional Problems All Other Systems Reviewed Negative Unless Noted: Yes (Negative excepted noted.) Physical Exam-General Problems Physical Exam Vital Signs Vital Signs - First Documented 08/06/21 04:05 Temp 36.5 Pulse 58 Resp 20 B/P (MAP) 96/69 (78) Pulse Ox 98 O2 Delivery Room Air Capillary Refill : Less Than 3 Seconds General Appearance: WD/WN, no apparent distress HEENT: PERRL/EOMI, normal ENT inspection Neck: non-tender, supple Respiratory: chest non-tender, no respiratory distress, no accessory muscle use Cardiovascular: regular rate, rhythm, no JVD Gastrointestinal: tenderness (ruq/epigastric tenderness) Rectal: deferred Back: no CVA tenderness, no vertebral tenderness Extremities: non-tender, normal inspection Neurologic/Psychiatric: alert, normal mood/affect, oriented x 3 Skin: normal color, warm/dry Lymphatic: no adenopathy Data Review Labs Laboratory Tests 08/06/21 04:10: White Blood Count 9.3, Red Blood Count 4.62, Hemoglobin 14.4, Hematocrit 44, Mean Corpuscular Volume 95, Mean Corpuscular Hemoglobin 31, Mean Corpuscular Hemoglobin Concent 33, Red Cell Distribution Width 13.7, Platelet Count 333, Mean Platelet Volume 10.2, Immature Granulocyte % (Auto) 0, Neutrophils (%) (Auto) 78H, Lymphocytes (%) (Auto) 16, Monocytes (%) (Auto) 5, Eosinophils (%) (Auto) 0, Basophils (%) (Auto) 0, Neutrophils # (Auto) 7.3, Lymphocytes # (Auto) 1.5, Monocytes # (Auto) 0.5, Eosinophils # (Auto) 0.0, Basophils # (Auto) 0.0, Immature Granulocyte # (Auto) 0.0, Sodium Level 139, Potassium Level 4.5, Chloride Level 105, Carbon Dioxide Level 21, Anion Gap 13, Blood Urea Nitrogen 22H, Creatinine 0.93, Estimat Glomerular Filtration Rate 59, BUN/Creatinine Ratio 24, Glucose Level 182H, Calcium Level 9.3, Corrected Calcium 9.7, Magnesium Level 1.9, Total Bilirubin 0.6, Aspartate Amino Transf (AST/SGOT) 1109H, Alanine Aminotransferase (ALT/SGPT) 585H, Alkaline Phosphatase 121, Troponin I 0.040H, C-Reactive Protein High Sensitivity 0.29, Total Protein 6.3L, Albumin 3.5, Triglycerides Level 156H, Lipase 23 08/06/21 04:45: Urine Color YELLOW, Urine Clarity SL CLOUDY, Urine pH 7.0, Urine Specific [place] 1.020, Urine Protein NEGATIVE, Urine Glucose (UA) NEGATIVE, Urine Ketones NEGATIVE, Urine Nitrite NEGATIVE, Urine Bilirubin NEGATIVE, Urine Urobilinogen 1.0, Urine Leukocyte Esterase NEGATIVE, Urine RBC (Auto) NEGATIVE, Urine RBC NONE, Urine WBC 0-2, Urine Squamous Epithelial Cells 5-10, Urine Crystals PRESENTH, Urine Amorphous Sediment FEW DAVE PHOSPHATEH, Urine Bacteria FEWH, Urine Casts NONE, Urine Mucus NEGATIVE, Urine Culture Indicated NO Assessment/Plan Assessment/Plan Assessment/Plan Pancreatitis epigastric/ruq abdominal pain hypertriglyceridemia Transaminitis NPO IV fluids repeat labs in am pain control Has had previous cholecystectomy symptomatic management When less pain start po HALIMA MADRID DO Aug 06, 2021 07:52
[2021-08-06 08:00] VITALS: BP 163/82
[2021-08-06] MEDS: ENOXAPARIN 40 MG/0.4 ML (LOVENOX) SYR SC SCH (08:06)
[2021-08-06] MEDS: LACTATED RINGERS 1,000 ML IV SCH ×2 (08:06→17:28)
[2021-08-06] MEDS: PANTOPRAZOLE 40 MG (PROTONIX) VIAL IV SCH (08:06)
[2021-08-06] MEDS: morphine INJ 4 MG/ML 1 ML (VIAL/SYRINGE) IVP PRN ×2 (08:13→14:54)
[2021-08-06] MEDS: ONDANSETRON 4 MG/2 ML (SDV) Z0FRAN IVP PRN ×2 (08:14→20:31)
[2021-08-06] MEDS: HYDROmorphone 2 MG/ML VIAL (DILAUDID) IV PRN (09:26)
--- NOTE | 2021-08-06 09:31 | History & Physical ---
History of Present Illness History of Present Illness Reason for visit/HPI PT IS A 76 Y/O FEMALE WHO IS KNOWN TO ME FROM CLINIC. SHE REPORTS THAT SHE WAS FEELING IN HER USUAL STATE OF HEALTH UNTIL LATE LAST NIGHT WHEN SHE STARTED TO HAVE SEVERE ACUTE ABDOMINAL PAIN. SHE REPORTS THAT THE PAIN WAS SO INTENSE SHE WAS WORRIED SOMETHING HAD RUPTURED AND SHE WAS TRANSPORTED TO THE ER WHERE SHE WAS FOUND TO HAVE ACUTE PANCREATITIS. Date of Admission Aug 06, 2021 at 05:35 Date Seen by a Provider: Aug 06, 2021 Time Seen by a Provider: 08:45 Attending Physician Remy Gonzalez MD Admitting Physician Remy Gonzalez MD Consult DR MADRID Allergies and Home Medications Allergies Coded Allergies: Sulfa (Sulfonamide Antibiotics) (Unverified Allergy, Unknown, 02/10/06) lisinopril (Unverified Allergy, Unknown, 11/15/13) fentanyl (Verified Adverse Reaction, Unknown, hypotension Nausea, 08/06/21) Patient Home Medication List Home Medication List Reviewed: Yes Amlodipine Besylate (Amlodipine Besylate) 10 Mg Tablet, 10 MG PO DAILY, (Reported) Entered as Reported by: RAS FLORES on 03/16/191515 Last Action: Held Apixaban (Eliquis) 5 Mg Tablet, 5 MG PO BID, (Reported) Entered as Reported by: RAS FLORES on 03/16/191520 Last Action: Held Aspirin (Aspirin) 81 Mg Tab.chew, 81 MG PO DAILY, (Reported) Entered as Reported by: RAS FLORES on 03/16/191518 Last Action: Held Atorvastatin Calcium (Atorvastatin Calcium) 10 Mg Tablet, 10 MG PO Q48H, (Reported) Entered as Reported by: RAS FLORES on 03/16/191515 Last Action: Held Calcium Carbonate (Calcium Carbonate) 500 Mg Tablet, 500 MG PO BID, (Reported) Entered as Reported by: TOM LUQUE on 08/06/211611 Last Action: Held Cholecalciferol (Vitamin D3) (Vitamin D3) 50 Mcg Capsule, 50 MCG PO BID, (Reported) Entered as Reported by: TOM LUQUE on 08/06/211611 Last Action: Held Dicyclomine HCl (Dicyclomine HCl) 10 Mg Capsule, 10 MG PO TID, (Reported) Entered as Reported by: TOM LUQUE on 08/06/211611 Last Action: Held Metoprolol Tartrate (Metoprolol Tartrate) 100 Mg Tablet, 100 MG PO BID, (Reported) Entered as Reported by: RAS FLORES on 03/16/191515 Last Action: Converted Multivitamin (Multivitamins) 1 Each Tablet, 1 TAB PO DAILY, (Reported) Entered as Reported by: RAS FLORES on 03/16/191515 Last Action: Held [place] 3 Polyunsat Fatty Acids (Fish Oil 1,000 mg Capsule) 1,000 Mg Cap, 1,000 MG PO BID, (Reported) Entered as Reported by: RAS FLORES on 03/16/191515 Last Action: Held Pantoprazole Sodium (Pantoprazole Sodium) 40 Mg Tablet.dr, 40 MG PO DAILY, (Reported) Entered as Reported by: RAS FLORES on 03/16/191515 Last Action: Held Valsartan (Valsartan) 320 Mg Tablet, 320 MG PO DAILY, (Reported) Entered as Reported by: RAS FLORES on 03/16/191515 Last Action: Held Discontinued Medications Calcium Carbonate/Vitamin D3 (Calcium 600 + Vit D 200 Tablet) 1 Each Tablet, 1 TAB PO DAILY, (Reported) Discontinued Reason: Prescription changed Entered as Reported by: RAS FLORES on 03/16/191515 Cholecalciferol (Vitamin D3) (Vitamin D3) 2,000 Unit Capsule, 2,000 UNIT PO DAILY, (Reported) Discontinued Reason: Prescription changed Entered as Reported by: RAS FLORES on 03/16/191515 Hydrocodone Bit/Acetaminophen (HYDROcodone/APAP 10/325 TABLET) 1 Each Tablet, 1 EA PO Q4H PRN for PAIN-MODERATE Discontinued Reason: No Longer Taking Prescribed by: DANIEL THOMPSON on 03/29/19 0843 Last Action: Discontinued L.acidoph & Paracasei,B.lactis (Probiotic) 1 Each Capsule, 1 CAP PO DAILY, (Reported) Discontinued Reason: No Longer Taking Entered as Reported by: LUPE DALTON on 08/10/17 0741 Last Action: Discontinued Sennosides/Docusate Sodium (Senna-Time S Tablet) 1 Each Tablet, 2 EA PO BID Discontinued Reason: No Longer Taking Prescribed by: DANIEL THOMPSON on 03/29/19 0843 Last Action: Discontinued Tramadol HCl (Tramadol HCl) 50 Mg Tablet, 50 MG PO Q6H PRN for PAIN-MILD Discontinued Reason: No Longer Taking Prescribed by: DANIEL THOMPSON on 03/29/19914 Last Action: Discontinued Past Vuhrwor-Iwfxod-Bahhnb Hx Patient Social History Marrital Status: Living Status: LIVES AT HOME ALONE Employed/Student: retired Tobacco Use?: Yes Tobacco type used: Cigarettes Smoking Status: Current Everyday Smoker Smokeless Tobacco Frequency: Never a User Use of E-Cig and/or Vaping dev: No Use of E-Cig and/or Vaping Chapo: Never a User Substance use?: No Alcohol Use?: No Pt feels they are or have been: No Immunizations Up To Date Date of Influenza Vaccine: Jun 16, 2020 First/Initial COVID19 Vaccinat: 10/20 Second COVID19 Vaccination Russ: 11/20 Tetanus Booster (TDap): More Than 5 Years Date of Pneumonia Vaccine: Nov 15, 2009 Seasonal Allergies Seasonal Allergies: No Current Status Advance Directives: No Communicates: Verbally Primary Language: Japanese Preferred Spoken Language: Japanese Is interpretation needed?: No Sensory deficits: Vision impairment Implanted or Applied Medical D: None Past Medical History Surgeries: Gallbladder, Orthopedic COPD Currently Using CPAP: No Currently Using BIPAP: No Atrial Fibrillation, High Cholesterol, Hypertension Sexually Transmitted Disease: No HIV/AIDS: No Gastroesophageal Reflux, Hiatal Hernia Chronic Back Pain Are Your Blood Sugars Over 250: No Loss of Vision: Denies Lung What Type of Treatment Did You: Radiation, Surgical Intervention Depression Blood Disorders: No Family Medical History Heart Disease, Cancer, Diabetes, Hypertension, Stroke Review of Systems Constitutional: No chills, No diaphoresis, No fever, No malaise; weakness EENTM: No hoarseness, No throat pain Respiratory: No cough; dyspnea on exertion, short of breath Cardiovascular: No chest pain, No palpitations Gastrointestinal: abdominal pain (RUQ); No constipation, No diarrhea; loss of appetite, nausea; No vomiting Genitourinary: no symptoms reported Musculoskeletal: back pain; No muscle stiffness, No muscle weakness Skin: no symptoms reported Psychiatric/Neurological: Denies Anxiety; Weakness (GENERALIZED ) All Other Systems Reviewed Negative Unless Noted: Yes Physical Exam Vital Signs Vital Signs - First Documented 08/06/21 04:05 Temp 36.5 Pulse 58 Resp 20 B/P (MAP) 96/69 (78) Pulse Ox 98 O2 Delivery Room Air Capillary Refill : Less Than 3 Seconds Height, Weight, BMI Height: 5'5.00" Weight: 186lbs. 9.6oz. 84.382845iv; 27.40 BMI Method: General Appearance: WD/WN, Moderate Distress (DUE TO PAIN), Other (SMELLS OF SMOKE) Eyes: Bilateral Eye Normal Inspection, Bilateral Eye PERRL, Bilateral Eye EOMI HEENT: PERRL/EOMI, TMs Normal, Normal ENT Inspection, Pharynx Normal Neck: Full Range of Motion, Non Tender, Supple Respiratory: Chest Non Tender, No Accessory Muscle Use, No Respiratory Distress; No Crackles; Decreased Breath Sounds Cardiovascular: No Edema, Normal Peripheral Pulses, Irregularly Irregular Gastrointestinal: Soft, Abnormal Bowel Sounds (DECREASED BOWEL SOUNDS), Tenderness (EPIGASTRIC) Rectal: Deferred Back: Normal Inspection, No Vertebral Tenderness Extremity: Normal Capillary Refill, Normal Inspection, Normal Range of Motion, Non Tender, No Calf Tenderness, No Pedal Edema Neurologic/Psychiatric: Alert, Oriented x3, No Motor/Sensory Deficits, Normal Mood/Affect, clerical assistant II-XII Norm as Tested Skin: Normal Color, Warm/Dry Lymphatic: No Adenopathy Assessment/Plan Assessment and Plan ACUTE PANCREATITIS EPIGASTRIC ABDOMINAL PAIN ELEVATED LIVER ENZYMES ELEVATED TRIGLYCERIDES HYPERTENSION ATRIAL FIBRILLATION - CHRONIC CHRONIC ANTICOAGULATION REFLUX ACUTE PANCREATITIS WITH EPIGASTRIC ABDOMINAL PAIN - CONSULT TO SURGEON - BLOOD CULTURE - IV ROCEPHIN INITIATED ELEVATED LIVER ENZYMES - IV HYDRATION, NPO, REPEAT LABS IN MORNING. ELEVATED TRIGLYCERIDES - PT ON STATIN THERAPY - WILL HOLD AT THIS TIME SINCE PT IS NPO HYPERTENSION - RESTART METOPROLOL PO, HOLD VALSARTAN AND AMLODIPINE AT THIS TIME. ATRIAL FIBRILLATION - CHRONIC - HOLD ELIQUIS FOR NOW, ONCE ABLE TO TAKE PO, WILL RESTART, - LOVENOX INJECTIONS WHILE IN HOSPITAL - RESTART METOPROLOL CHRONIC ANTICOAGULATION - HOLD ELIQUIS AND RESTART WHEN ABLE TO TAKE PO, LOVENOX WHILE NPO REFLUX - PPI THERAPY DVT PROPHYLAXIS WITH LOVENOX AND SCD'S GI PROPHYLAXIS WITH PPI, WILL START ON PROBIOTICS WHEN ABLE TO TAKE PO FOOD/FLUIDS TOBACCOISM - PT IS REFUSING NICOTINE PATCHES Admission Diagnosis ACUTE PANCREATITIS EPIGASTRIC ABDOMINAL PAIN ELEVATED LIVER ENZYMES ELEVATED TRIGLYCERIDES HYPERTENSION ATRIAL FIBRILLATION - CHRONIC CHRONIC ANTICOAGULATION REFLUX Admission Status: Inpatient Order (span 2 midnights) Reason for Inpatient Admission: INPT ADMISSION FOR IV ANTIBIOTICS - WILL REQUIRE AT LEST 72 HOURS IN THE HOSPITAL FOR PANCREATITIS REMY GONZALEZ MD Aug 06, 2021 09:31
[2021-08-06] MEDS ORDERED: ENOXAPARIN 40 MG/0.4 ML (LOVENOX) SYR SC SCH (09:45)
[2021-08-06] MEDS ORDERED: SALIVA STIMULANT MOUTH SPRAY (BIOTENE) 1.5 OZ MM PRN (09:45)
[2021-08-06 12:00] VITALS: BP 139/77
[2021-08-06 15:35] VITALS: BP 109/53
[2021-08-06] MEDS ORDERED: CHOL20002 PO (16:12)
[2021-08-06] MEDS ORDERED: CALC500T64 PO (16:12)
[2021-08-06] MEDS ORDERED: DICY10CA12 PO (16:12)
[2021-08-06] MEDS ORDERED: cefTRIAXone 1 GM PRE-MIX 50 ML IV ONE (19:15)
[2021-08-06 20:05] VITALS: BP 156/86
[2021-08-06] MEDS: meTOprolol TARTRATE 50 MG (LOPRESSOR) TAB PO SCH (21:31)
[2021-08-06 23:52] VITALS: BP 136/83
[2021-08-07] VITALS (35 sets, daily range): BP systolic 103–175; BP diastolic 61–120
[2021-08-07] MEDS: LACTATED RINGERS 1,000 ML IV SCH ×6 (00:25→23:58)
[2021-08-07] MEDS ORDERED: ACETAMINOPHEN 650 MG SUPP (TYLENOL) PR PRN (03:45)
[2021-08-07] MEDS ORDERED: PIPERACILLIN SODIUM/TAZOBACTAM 4.5 GM in NS (IVPB) 100 ML IV ONE (04:00)
[2021-08-07 07:27] LABS: HEMATOCRIT 35 % (35-52); HEMOGLOBIN 11.3 g/dL (11.5-16.0); MEAN CORPUSCULAR HGB CONC 32 g/dL (32-36); MEAN CORPUSCULAR VOLUME 100 fL (80-99); MEAN PLATELET VOLUME 10.4 fL (9.0-12.2); PLATELET COUNT 266 10^3/uL (130-400)
[2021-08-07 07:36] LABS: MEAN CORPUSCULAR HEMOGLOBIN 32 pg (25-34)
--- NOTE | 2021-08-07 08:07 | Progress Note - Surgery ---
MAO ELLIS 08/07/21 0807: Subjective Date Seen by a Provider: Aug 07, 2021 Time Seen by a Provider: 07:30 Subjective/Events-last exam Ms. Arriaga was somnolent this morning and was asleep upon arrival. She had trouble answering questions. Her pain is better today but was not able to quantify it with a number. She says it has stopped radiating to her back and is only located in her LUQ. She is NPO. She had a normal bowel movement yesterday. She denies nausea and vomiting today. Review of Systems General: No Chills, No Fatigue HEENT: No Head Aches, No Visual Changes Pulmonary: No Dyspnea, No Cough Cardiovascular: No: Chest Pain, Palpitations Gastrointestinal: Abdominal Pain; No: Nausea, Vomiting Musculoskeletal: No: back pain, leg pain Neurological: No: Weakness, Change in speech Objective Exam Vital Signs Date Time Temp Pulse Resp B/P (MAP) Pulse Ox O2 Delivery O2 Flow Rate FiO2 08/07/21 06:13 36.2 08/07/21 06:13 36.2 08/07/21 04:06 38.4 08/07/21 03:22 38.4 85 26 157/80 (105) 96 Room Air 08/07/21 01:00 91 08/06/21 23:52 37.7 111 20 136/83 (100) 95 Room Air 08/06/21 22:11 109 08/06/21 20:53 93 Room Air 08/06/21 20:05 37.0 103 18 156/86 (109) 92 Room Air 08/06/21 16:02 36.8 08/06/21 15:35 86 22 109/53 (71) 96 Room Air 08/06/21 12:00 36.0 86 16 139/77 (97) 93 Room Air 08/06/21 08:00 35.5 68 16 163/82 (109) 96 Room Air I & O 08/07/21 07:00 Intake Total 1150 ml Balance 1150 ml Capillary Refill : Less Than 3 Seconds General Appearance: No Apparent Distress, WD/WN HEENT: PERRL/EOMI Neck: Non Tender, Supple; No Lymphadenopathy (L), No Lymphadenopathy (R) Respiratory: Chest Non Tender, No Accessory Muscle Use, No Respiratory Distress, Wheezing (Expiratory wheeze B/L) Cardiovascular: No Edema, Normal Peripheral Pulses, Irregularly Irregular Peripheral Pulses: 2+ Dorsalis Pedis (R), 2+ Left Dors-Pedis (L), 2+ Radial Pulses (R), 2+ Radial Pulses (L) Gastrointestinal: soft, no organomegaly, abnormal bowel sounds (Decreased), guarding, tenderness (LUQ) Extremity: Normal Capillary Refill, Normal Inspection, Normal Range of Motion, Non Tender, No Calf Tenderness, No Pedal Edema Neurologic/Psychiatric: No Motor/Sensory Deficits, Normal Mood/Affect, display coordinator II- XII Norm as Tested, Other (Somnolent) Skin: Normal Color, Warm/Dry Lymphatic: No Adenopathy (Head and neck) Results Lab Laboratory Tests 08/06/21 10:30: Troponin I 0.044H 08/06/21 16:10: Troponin I 0.039H 08/07/21 07:20: White Blood Count 15.0H, Red Blood Count 3.48L, Hemoglobin 11.3#L, Hematocrit 35, Mean Corpuscular Volume 100H, Mean Corpuscular Hemoglobin 32, Mean Corpuscular Hemoglobin Concent 32, Red Cell Distribution Width 14.2, Platelet Count 266, Mean Platelet Volume 10.4 Assessment/Plan Assessment/Plan Assessment/Plan Assessment Pancreatitis - Elevated WBC from 9.3 to 15.0 today - Anemia, most likely dilutional, 14.4 to 11.3 - BUN elevated from 22 to 27, poor prognostic indicator - Somnolent Abdominal pain - LUQ today, does not radiate to back Hypertriglyceridemia Transaminitis h/o AFib Continue NPO and IV fluids Continue Pip/Tazo, monitor leukocytosis Continue enoxaparin for DVT ppx Pain control as needed h/o cholecystectomy and appendectomy Advance diet as tolerated PEDRO RAMSEY DO 08/07/21 1252: Subjective Time Seen by a Provider: 11:17 Subjective/Events-last exam Pt seen and examined, she is doing much worse compared to yesterday. I got a ph one call from Dr. Gonzalez regarding her worsening condition, looking septic and I recommended a repeat CT. When I saw pt she was lying in bed and very lethargic; complaining of abd pain that is worse. She has not had any N/V today. Review of Systems General: No Chills; Fatigue HEENT: No Head Aches, No Visual Changes Pulmonary: Dyspnea; No Cough Cardiovascular: No: Chest Pain, Palpitations Gastrointestinal: Abdominal Pain; No: Nausea, Vomiting Objective Exam General Appearance: Chronically ill, Mild Distress HEENT: PERRL/EOMI, Scleral Icterus (L), Scleral Icterus (R) Respiratory: Chest Non Tender, No Accessory Muscle Use, No Respiratory Distress, Wheezing (Expiratory wheeze B/L) Cardiovascular: No Edema, No Murmur, Irregularly Irregular Gastrointestinal: soft, no organomegaly, abnormal bowel sounds (Decreased), guarding, tenderness (LUQ) Extremity: No Calf Tenderness, No Pedal Edema Neurologic/Psychiatric: Alert (arousable and answers questions), Other (Somnolent) Skin: Warm/Dry, Jaundice Assessment/Plan Assessment/Plan Assessment/Plan 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 The air was not really near the small bowel, it was closer to the pancreas and a perforation of 3rd or 4th portion of duodenum or even the jejunum is very unlikely. I went over the films with Dr. Tellez who agreed with my assessment and then coordinated care with Dr. Gonzalez. Unfortunately, she requires care that cannot be obtained here because this type of surgery needs to be done at a Tertiary center. In the meantime will need to continue NPO and IV fluids, IV ABX, pain control. Supervisory-Addendum Brief Verification & Attestation Participated in pt care: history, MDM, physical Personally performed: exam, history, MDM, supervision of care Care discussed with: Medical Student Procedures: n/a Verification and Attestation of Medical Student E/M Service A medical student performed and documented this service. I then reviewed and verified all information documented by the medical student and made modifications to such information, when appropriate. I personally performed a physical exam, medical decision making and then discussed any differences between the notes and made revisions as necessary to create one note. Pedro Ramsey , 08/07/21 , 12:53 MAO ELLIS Aug 07, 2021 08:07 PEDRO RAMSEY DO Aug 07, 2021 12:52
[2021-08-07] MEDS: metroNIDAZOLE 500MG/100ML IVPB 100 ML IV SCH ×2 (08:34→17:16)
[2021-08-07] MEDS: ENOXAPARIN 40 MG/0.4 ML (LOVENOX) SYR SC SCH (08:35)
[2021-08-07] MEDS: PANTOPRAZOLE 40 MG (PROTONIX) VIAL IV SCH (08:36)
--- NOTE | 2021-08-07 09:03 | Progress Note ---
Subjective Subjective Date Seen by Provider: Aug 07, 2021 Time Seen by Provider: 08:40 PT IS A 76 Y/O FEMALE WHO IS KNOWN TO ME FROM CLINIC. SHE PRESENTED TO THE ER WITH ABDOMINAL PAIN, WAS DIAGNOSED WITH ACUTE PANCREATITIS AND ADMITTED TO 4TH FLOOR IN STABLE CONDITION. 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 STAFF FROM MICROBIOLOGY REPORTED THAT PT HAD POSSIBLE CLOSTRIDIUM IN HER BLOOD ON CULTURE REPORT THIS MORNING Review of Systems General: No Chills, No Fatigue HEENT: No Head Aches, No Visual Changes Pulmonary: No Dyspnea, No Cough Cardiovascular: No: Chest Pain, Palpitations Gastrointestinal: Abdominal Pain; No: Nausea, Vomiting Musculoskeletal: No: back pain, leg pain Neurological: No: Weakness, Change in speech All Other Systems Reviewed All Other Systems Reviewed: Yes Objective Exam Vital Signs Vital Signs Date Time Temp Pulse Resp B/P (MAP) Pulse Ox O2 Delivery O2 Flow Rate FiO2 08/07/21 07:00 76 08/07/21 06:13 36.2 08/07/21 06:13 36.2 08/07/21 04:06 38.4 08/07/21 03:22 38.4 85 26 157/80 (105) 96 Room Air 08/07/21 01:00 91 08/06/21 23:52 37.7 111 20 136/83 (100) 95 Room Air 08/06/21 22:11 109 08/06/21 20:53 93 Room Air 08/06/21 20:05 37.0 103 18 156/86 (109) 92 Room Air 08/06/21 16:02 36.8 08/06/21 15:35 86 22 109/53 (71) 96 Room Air 08/06/21 12:00 36.0 86 16 139/77 (97) 93 Room Air I & O 08/07/21 06:59 Intake Total 1150 ml Balance 1150 ml General Appearance: Moderate Distress, Other (CRITICALLY ILL APPEARING PATIENT, GROGGY/CONFUSED) Eyes: Bilateral Eye Normal Inspection, Bilateral Eye PERRL, Bilateral Eye EOMI HEENT: PERRL/EOMI; No Scleral Icterus (L), No Scleral Icterus (R) Neck: Non Tender, Supple; No Lymphadenopathy (L), No Lymphadenopathy (R) Respiratory: Chest Non Tender, No Accessory Muscle Use, No Respiratory Distress, Wheezing (Expiratory wheeze B/L) Cardiovascular: No Edema, Normal Peripheral Pulses, Irregularly Irregular, Tachycardia Gastrointestinal: Soft, Abnormal Bowel Sounds (DECREASED BOWEL SOUNDS), Tenderness (EPIGASTRIC) Rectal: Deferred Back: Normal Inspection, No Vertebral Tenderness Extremity: Normal Capillary Refill, Non Tender, No Calf Tenderness, No Pedal Edema Neurologic/Psychiatric: Other (GROGGY) Skin: Cool, Jaundice Lymphatic: No Adenopathy (Head and neck) Results Lab Laboratory Tests 08/06/21 10:30: Troponin I 0.044H 08/06/21 16:10: Troponin I 0.039H 08/07/21 07:20: White Blood Count 15.0H, Red Blood Count 3.48L, Hemoglobin 11.3#L, Hematocrit 35, Mean Corpuscular Volume 100H, Mean Corpuscular Hemoglobin 32, Mean Corpuscular Hemoglobin Concent 32, Red Cell Distribution Width 14.2, Platelet Co unt 266, Mean Platelet Volume 10.4 08/07/21 08:42: Assessment/Plan Assessment/Plan Admission Dx ACUTE PANCREATITIS EPIGASTRIC ABDOMINAL PAIN ELEVATED LIVER ENZYMES ELEVATED TRIGLYCERIDES HYPERTENSION ATRIAL FIBRILLATION - CHRONIC CHRONIC ANTICOAGULATION REFLUX Assessment and Plan ACUTE NECROTIZING PANCREATITIS SEPSIS EPIGASTRIC ABDOMINAL PAIN ELEVATED LIVER ENZYMES ELEVATED TRIGLYCERIDES HYPERTENSION ATRIAL FIBRILLATION - CHRONIC CHRONIC ANTICOAGULATION REFLUX GROGGY LACTIC ACIDOSIS SEPSIS DUE TO ACUTE NECROTIZING PANCREATITIS WITH EPIGASTRIC ABDOMINAL PAIN - CONSULT TO SURGEON - BLOOD CULTURE -PRELIM SHOWED POSSIBLE CLOSTRIDIUM - PT STARTED ON ZOSYN YESTERDAY EVENING AND FLAGYL THIS MORNING (08/07/2021) - IV ROCEPHIN INITIATED ON ADMISSION - STOPPED ON 08/06/2021 EVENING AND CHANGED TO ZOSYN - REPEAT CT SCAN BELOW - SURGEON OVERVIEW WITH ADDITIONAL RADIOLOGIST IS OF NECROTIZING PANCREATITIS - DISCUSSION WITH PT'S SON - CHARLI FIELDS - HE IS IN AGREEMENT TO TRANSFER IF POSSIBLE TO FACILITY WITH CAPABILITY OF SURGICAL INTERVENTION - HOWEVER SHOULD TRANSFER NOT BE POSSIBLE AND PT CONTINUES TO DECLINE DESPITE BEST EFFORT, HE WOULD THEN DESIRE COMFORT CARE FOR HIS MOTHER. HE ALSO SPOKE WITH HIS SISTER AND IF SHE BECOMES MORE CRITICALLY ILL AND HAS AN EVENT OF SUDDEN CARDIAC ARREST OR RESPIRATORY FAILURE THEY WOULD DESIRE PT TO BE DNR/DNI. HE WAS MADE AWARE OF THE WORKING DIAGNOSIS OF NECROTIZING PANCREATITIS WITH SEVERE DECLINE IN THE PAST FEW HOURS WITH PT BEING TRANSFERRED UP TO CARDIAC STEPDOWN ( ICU WAS PREFERRED, BUT NO BED AVAILABLE). THIS PROVIDER HAS CONTACTED [facility] AND [facility] FOR STATE BED PLACEMENT - WAITING ON A CALL BACK TO SEE IF WE CAN GET THE PT OUT OF [facility] TO T[facility]ARE CENTER). ELEVATED LIVER ENZYMES - IV HYDRATION, NPO, REPEAT LABS IN MORNING. ELEVATED TRIGLYCERIDES - PT ON STATIN THERAPY - WILL HOLD AT THIS TIME SINCE PT IS NPO HYPERTENSION - HOLDING METOPROLOL PO, HOLD VALSARTAN AND AMLODIPINE AT THIS TIME. ATRIAL FIBRILLATION - CHRONIC - HOLD ELIQUIS FOR NOW, ONCE ABLE TO TAKE PO, WILL RESTART, - LOVENOX INJECTIONS WHILE IN HOSPITAL - RESTART METOPROLOL CHRONIC ANTICOAGULATION - HOLD ELIQUIS AND RESTART WHEN ABLE TO TAKE PO, LOVENOX STOPPED DUE TO GROSS HEMATOCHEZIA REFLUX - PPI THERAPY ARANGO TO BE PLACED DVT PROPHYLAXIS WITH SCD'S, LOVENOX STOPPED DUE TO GROSS HEMATOCHEZIA GI PROPHYLAXIS WITH PPI, WILL START ON PROBIOTICS WHEN ABLE TO TAKE PO FOOD/FLUIDS TOBACCOISM - PT IS REFUSING NICOTINE PATCHES PT CRITICALLY ILL, THIS PROVIDER HAS SPENT 1.25 HOURS IN TREATMENT AND COORDINATION OF CARE ON THIS PATIENT. PT STATUS: ADM IN : 1945 PHYSICIAN: REMY MCELROY MD ADMIT DATE: 08/06/21 Draft Date of Exam:08/07/21 CT ABDOMEN/PELVIS W INDICATION: Worsening pancreatitis. COMPARISON: 08/06/2021 FINDINGS: There is now small amount of left pleural fluid with mild bilateral basilar atelectasis. Below the diaphragm, there is continued edema and inflammation about the swollen head and body of pancreas. There has been significant increase in fluid adjacent to the pancreatic tail adjacent to the splenic vessels with extension into the left pericolic gutter. In addition, there is retroperitoneal gas along the inferior aspect of the pancreatic tail extending into the root of mesentery and retroperitoneum. Mural thickening is also seen along the descending duodenum. No definite acute hepatic, adrenal gland or splenic lesion is identified. Kidneys are stable. There is small amount of pelvic free fluid present. Partially opacified urinary bladder is unremarkable. There is no walled fluid collection at this time. IMPRESSION: Increasing retroperitoneal fluid and gas which is mainly adjacent to the pancreatic tail and extends into the left pericolic gutter. Given the appearance of duodenal mural thickening on the scan of one day earlier this may be related to duodenal perforation. There has also been development of mild pleural and peritoneal fluid with mural thickening of the descending colon adjacent to pericolic gutter fluid and inflammation. These findings were telephoned to the referring clinician at 0955 hours on 08/07/2021. Dictated on workstation # [id number] Dict: 08/07/21 0951 Trans: 08/07/21 1005 SA [id number] Interpreted by: DONNY ACOSTA MD Electronically signed by: Admission Dx ACUTE PANCREATITIS EPIGASTRIC ABDOMINAL PAIN ELEVATED LIVER ENZYMES ELEVATED TRIGLYCERIDES HYPERTENSION ATRIAL FIBRILLATION - CHRONIC CHRONIC ANTICOAGULATION REFLUX Clinical Quality Measures Admission Status Admission Dx ACUTE PANCREATITIS EPIGASTRIC ABDOMINAL PAIN ELEVATED LIVER ENZYMES ELEVATED TRIGLYCERIDES HYPERTENSION ATRIAL FIBRILLATION - CHRONIC CHRONIC ANTICOAGULATION REFLUX REMY MCELROY MD Aug 07, 2021 09:03
[2021-08-07] MEDS: meTOprolol TARTRATE 50 MG (LOPRESSOR) TAB PO SCH (09:13)
[2021-08-07] MEDS ORDERED: CATHETER FLUSH 10 ML SYR IV PRN (09:15)
[2021-08-07] MEDS ORDERED: IOHEXOL 350 MG/ML 100 ML (OMNIPAQUE 350) VIAL IV ONE (09:15)
[2021-08-07] MEDS ORDERED: HOLD METFORMIN - RECEIVED CONTRAST 20 ML VIAL IV SCH (09:15)
[2021-08-07] MEDS ORDERED: NS 100 ML (IVPB) BAG IV ONE (09:15)
[2021-08-07 09:21] LABS: ALBUMIN 2.7 GM/DL (3.2-4.5); BILIRUBIN,TOTAL 10.1 MG/DL (0.1-1.0); CALCIUM 8.3 MG/DL (8.5-10.1); CREATININE SERUM 0.76 MG/DL (0.60-1.30); MAGNESIUM 1.8 MG/DL (1.6-2.4); POTASSIUM 3.4 MMOL/L (3.6-5.0); TOTAL PROTEIN 5.3 GM/DL (6.4-8.2)
--- NOTE | 2021-08-07 10:06 | Diagnostic Imaging Report ---
PROCEDURE: CT abdomen and pelvis with contrast. TECHNIQUE: Multiple contiguous axial images were obtained through the abdomen and pelvis after administration of intravenous contrast. Auto Exposure Controls were utilized during the CT exam to meet ALARA standards for radiation dose reduction. All CT scans use one or more of the following dose optimizing techniques: automated exposure control, MA and/or KvP adjustment based on patient size and exam type or iterative reconstruction. INDICATION: Worsening pancreatitis. COMPARISON: 08/06/2021 FINDINGS: There is now small amount of left pleural fluid with mild bilateral basilar atelectasis. Below the diaphragm, there is continued edema and inflammation about the swollen head and body of pancreas. There has been significant increase in fluid adjacent to the pancreatic tail adjacent to the splenic vessels with extension into the left pericolic gutter. In addition, there is retroperitoneal gas along the inferior aspect of the pancreatic tail extending into the root of mesentery and retroperitoneum. Mural thickening is also seen along the descending duodenum. No definite acute hepatic, adrenal gland or splenic lesion is identified. Kidneys are stable. There is small amount of pelvic free fluid present. Partially opacified urinary bladder is unremarkable. There is no walled fluid collection at this time. IMPRESSION: Increasing retroperitoneal fluid and gas which is mainly adjacent to the pancreatic tail and extends into the left pericolic gutter. Given the appearance of duodenal mural thickening on the scan of one day earlier this may be related to duodenal perforation. There has also been development of mild pleural and peritoneal fluid with mural thickening of the descending colon adjacent to pericolic gutter fluid and inflammation. These findings were telephoned to the referring clinician at 0955 hours on 08/07/2021. Dictated by: Dictated on workstation # [id number]
[2021-08-07] MEDS: PIPERACILLIN SODIUM/TAZOBACTAM 4.5 GM in NS (IVPB) 100 ML IV SCH ×2 (11:02→19:26)
[2021-08-07] MEDS: POTASSIUM CL 10MEQ/50ML IVPB 50 ML IV SCH ×2 (11:45→13:24)
[2021-08-07] MEDS: LIDOCAINE 4% (SALONPAS) PATCH TOP SCH (13:25)
[2021-08-07] MEDS: ONDANSETRON 4 MG/2 ML (SDV) Z0FRAN IVP PRN (15:10)
[2021-08-07] MEDS: morphine INJ 4 MG/ML 1 ML (VIAL/SYRINGE) IVP PRN (15:14)
--- NOTE | 2021-08-07 16:18 | Diagnostic Imaging Report ---
EXAM: CHEST 1 VIEW, AP/PA ONLY INDICATION: PICC line placement. COMPARISON: Chest radiograph 08/06/2021. FINDINGS: Right PICC tip mid SVC. Low lung volumes. Stable heart size and pulmonary vascularity. Increasing atelectasis or infiltrate left lung base and probable small left pleural effusion. No pneumothorax. No acute osseous findings. IMPRESSION: 1. New right PICC tip mid SVC. 2. Increasing consolidation left lung base and probable small left pleural effusion. Dictated by: Dictated on workstation # [id number]
[2021-08-07] MEDS ORDERED: meTOprolol 5 MG/5 ML (LOPRESSOR) VIAL ONE ×2 (20:41→22:36)
[2021-08-07] MEDS ORDERED: meTOprolol 5 MG/5 ML (LOPRESSOR) VIAL IV ONE ×2 (20:45→22:30)
[2021-08-07] MEDS: PATCH REMOVAL TP SCH (20:52)
[2021-08-07] MEDS ORDERED: cefTRIAXone 1 GM PRE-MIX 50 ML IV SCH (21:00)
[2021-08-08] VITALS (21 sets, daily range): BP systolic 87–126; BP diastolic 49–83
[2021-08-08] MEDS ORDERED: LACTATED RINGERS 250 ML IV SCH (01:00)
[2021-08-08] MEDS: metroNIDAZOLE 500MG/100ML IVPB 100 ML IV SCH ×3 (02:47→17:20)
[2021-08-08] MEDS: PIPERACILLIN SODIUM/TAZOBACTAM 4.5 GM in NS (IVPB) 100 ML IV SCH ×3 (03:56→17:20)
[2021-08-08] MEDS: LACTATED RINGERS 1,000 ML IV SCH ×3 (05:17→19:40)
[2021-08-08 06:12] LABS: BASOPHILS % (AUTO) 0 % (0-10); EOSINOPHILS % (AUTO) 0 % (0-10); HEMATOCRIT 28 % (35-52); HEMOGLOBIN 9.2 g/dL (11.5-16.0); LYMPHOCYTES # (AUTO) 1.6 10^3/uL (1.0-4.0); LYMPHOCYTES % (AUTO) 14 % (12-44); MEAN CORPUSCULAR HEMOGLOBIN 32 pg (25-34); MEAN CORPUSCULAR HGB CONC 33 g/dL (32-36); MEAN CORPUSCULAR VOLUME 98 fL (80-99); MONOCYTES # (AUTO) 0.4 10^3/uL (0.0-1.0); MONOCYTES % (AUTO) 3 % (0-12); NEUTROPHILS # (AUTO) 9.8 10^3/uL (1.8-7.8); NEUTROPHILS % (AUTO) 83 % (42-75); PLATELET COUNT 215 10^3/uL (130-400); WHITE BLOOD COUNT 11.9 10^3/uL (4.3-11.0)
[2021-08-08 06:13] LABS: SMEAR SCAN COMMENT YES
[2021-08-08] MEDS: morphine INJ 4 MG/ML 1 ML (VIAL/SYRINGE) IVP PRN ×4 (06:20→23:53)
[2021-08-08 06:31] LABS: ALBUMIN 2.4 GM/DL (3.2-4.5); POTASSIUM 3.2 MMOL/L (3.6-5.0)
[2021-08-08 06:32] LABS: CALCIUM 8.1 MG/DL (8.5-10.1)
[2021-08-08 06:34] LABS: TOTAL PROTEIN 4.5 GM/DL (6.4-8.2)
[2021-08-08 06:35] LABS: BILIRUBIN,TOTAL 3.3 MG/DL (0.1-1.0)
[2021-08-08 06:37] LABS: CREATININE SERUM 0.72 MG/DL (0.60-1.30)
[2021-08-08] MEDS ORDERED: meTOprolol 5 MG/5 ML (LOPRESSOR) VIAL ONE (07:05)
[2021-08-08] MEDS ORDERED: meTOprolol 5 MG/5 ML (LOPRESSOR) VIAL IV ONE (07:15)
--- NOTE | 2021-08-08 08:39 | Progress Note - Surgery ---
MAO ELLIS 08/08/21 0839: Subjective Date Seen by a Provider: Aug 08, 2021 Time Seen by a Provider: 08:34 Subjective/Events-last exam Ms. Arriaga continues to be uncomfortable this morning and says that she does not feel good. She has abdominal pain only upon palpation but has complaints of back pain and asked for some medicine to help. She denies nausea, vomiting, or diarrhea overnight. She had an episode of hematochezia yesterday and her enoxaparin has been held. She is A&Ox3 this morning but struggled to answer questions. She is currently in AFib and had RVR overnight; she has been given metoprolol. She says that she feels very warm this morning but does not feel like she has a fever. Review of Systems General: No Chills; Fatigue HEENT: No Head Aches, No Visual Changes Pulmonary: No Dyspnea, No Cough Cardiovascular: No: Chest Pain, Palpitations Gastrointestinal: No: Nausea, Vomiting, Abdominal Pain (Denies subjective abdominal pain, only TTP), Diarrhea Musculoskeletal: back pain; No: leg pain Focused Exam Lactate Level 08/07/21 11:28: Lactic Acid Level 3.18*H 08/07/21 14:20: Lactic Acid Level 3.00*H 08/07/21 16:28: Lactic Acid Level 1.71 Objective Exam Vital Signs Date Time Temp Pulse Resp B/P (MAP) Pulse Ox O2 Delivery O2 Flow Rate FiO2 08/08/21 08:28 37.0 08/08/21 08:00 131 18 97/68 (78) 94 Room Air 08/08/21 07:00 125 31 111/49 (69) 94 Room Air 08/08/21 07:00 130 08/08/21 06:00 112 20 109/69 (82) 92 Room Air 08/08/21 05:00 137 21 110/58 (75) 89 Room Air 08/08/21 04:01 Room Air 08/08/21 04:00 142 23 96/77 (83) 88 Room Air 08/08/21 03:30 37.6 123 22 118/72 (87) 90 Room Air 08/08/21 02:00 138 21 118/63 (81) 91 Room Air 08/08/21 01:00 130 08/08/21 01:00 126 11 126/68 (87) 94 Room Air 08/08/21 00:10 37.1 125 22 112/77 (89) 91 Room Air 08/08/21 00:00 Room Air 08/07/21 23:00 126 22 107/73 (84) 90 Room Air 08/07/21 22:00 140 25 126/73 (90) 90 Room Air 08/07/21 21:00 131 25 128/87 (101) 90 Room Air 08/07/21 20:02 Room Air 08/07/21 20:00 80 27 146/75 (98) 94 Room Air 08/07/21 19:17 36.2 86 24 138/75 (96) 91 Room Air 08/07/21 19:00 90 08/07/21 18:00 75 20 141/70 (93) 93 Room Air 08/07/21 17:45 75 20 136/65 (88) 93 Room Air 08/07/21 17:30 70 22 144/61 (88) 93 Room Air 08/07/21 17:15 80 20 151/81 (104) 94 Room Air 08/07/21 17:00 81 20 147/72 (97) 94 Room Air 08/07/21 16:30 80 22 106/70 (82) 94 Room Air 08/07/21 16:15 89 20 103/80 (88) Room Air 08/07/21 16:00 36.2 78 22 106/70 (82) 95 Room Air 08/07/21 15:15 81 24 151/78 (102) 97 Room Air 08/07/21 15:00 87 96 Room Air 08/07/21 14:45 82 149/67 (94) 93 Room Air 08/07/21 14:30 76 22 137/74 (95) 96 Room Air 08/07/21 14:15 80 20 96 Room Air 08/07/21 14:00 81 151/77 (101) 94 Room Air 08/07/21 13:45 85 26 136/62 (86) 95 Room Air 08/07/21 13:30 80 22 143/78 (99) 100 Room Air 08/07/21 13:15 75 161/97 (118) 96 Room Air 08/07/21 13:00 75 26 156/95 (115) 95 Room Air 08/07/21 12:45 75 140/96 (111) 97 Room Air 08/07/21 12:30 36.8 80 128/71 (90) 96 Room Air 08/07/21 12:29 76 08/07/21 12:15 75 22 147/97 (114) 97 Room Air 08/07/21 12:00 76 157/120 (132) 96 Room Air 08/07/21 11:45 77 24 175/97 (123) 98 Room Air 08/07/21 11:30 73 23 152/84 (106) 97 Room Air 08/07/21 11:20 94 Room Air 08/07/21 11:15 36.5 77 23 129/80 (96) 96 Room Air 08/07/21 11:15 71 22 129/80 (96) 94 Room Air 08/07/21 11:00 74 20 145/72 (96) 93 Room Air 08/07/21 10:45 73 22 141/62 (88) 93 Room Air 08/07/21 10:15 75 23 152/79 (103) 93 Room Air 08/07/21 10:00 36.0 89 23 143/67 (92) 93 Room Air 08/07/21 09:15 36.4 76 22 158/82 (107) 93 Room Air I & O 08/08/21 07:00 Intake Total 3520 ml Output Total 2600 ml Balance 920 ml Capillary Refill : Less Than 3 Seconds General Appearance: No Apparent Distress, Chronically ill HEENT: PERRL/EOMI, Scleral Icterus (L), Scleral Icterus (R) Neck: Non Tender, Supple; No Lymphadenopathy (L), No Lymphadenopathy (R) Respiratory: Chest Non Tender, No Accessory Muscle Use, No Respiratory Distress, Decreased Breath Sounds (LLL), Wheezing (Expiratory wheeze B/L) Cardiovascular: No Edema, No Murmur, Irregularly Irregular (AFib with RVR o/n) Peripheral Pulses: 2+ Dorsalis Pedis (R), 2+ Left Dors-Pedis (L), 2+ Radial Pulses (R), 2+ Radial Pulses (L) Gastrointestinal: soft, no organomegaly, abnormal bowel sounds (Decreased), guarding, tenderness (Diffusely tender to palpation with exquisite tenderness in LUQ) Extremity: Normal Capillary Refill, No Calf Tenderness, No Pedal Edema Neurologic/Psychiatric: Alert (Arousable and answers questions), Oriented x3 (Oriented to person, place, and time), Other (Somnolent) Skin: Warm/Dry, Jaundice Lymphatic: No Adenopathy (Head and neck) Results Lab Laboratory Tests 08/07/21 08:42: Sodium Level 141, Potassium Level 3.4L, Chloride Level 110H, Carbon Dioxide Level 18L, Anion Gap 13, Blood Urea Nitrogen 27H, Creatinine 0.76, Estimat Glomerular Filtration Rate 74, BUN/Creatinine Ratio 36, Glucose Level 115H, Calcium Level 8.3L, Corrected Calcium 9.3, Magnesium Level 1.8, Total Bilirubin 10.1H, Aspartate Amino Transf (AST/SGOT) 507H, Alanine Aminotransferase (ALT/SGPT) 531#H, Alkaline Phosphatase 110, Total Protein 5.3L, Albumin 2.7L 08/07/21 09:25: Lactic Acid Level 2.38*H 08/07/21 11:10: Influenza Type A Antigen NEGATIVE, Influenza Type B Antigen NEGATIVE, SARS-CoV-2 RNA (RT-PCR) Negative 08/07/21 11:28: Lactic Acid Level 3.18*H 08/07/21 11:30: Coronavirus (COVID-19)(PCR) Negative 08/07/21 14:20: Lactic Acid Level 3.00*H 08/07/21 16:28: Lactic Acid Level 1.71 08/08/21 06:00: White Blood Count 11.9H, Red Blood Count 2.88L, Hemoglobin 9.2L, Hematocrit 28L, Mean Corpuscular Volume 98, Mean Corpuscular Hemoglobin 32, Mean Corpuscular Hemoglobin Concent 33, Red Cell Distribution Width 15.2H, Platelet Count 215, Mean Platelet Volume 11.0, Immature Granulocyte % (Auto) 0, Neutrophils (%) (Auto) 83H, Lymphocytes (%) (Auto) 14, Monocytes (%) (Auto) 3, Eosinophils (%) (Auto) 0, Basophils (%) (Auto) 0, Neutrophils # (Auto) 9.8H, Lymphocytes # (Auto) 1.6, Monocytes # (Auto) 0.4, Eosinophils # (Auto) 0.0, Basophils # (Auto) 0.0, Immature Granulocyte # (Auto) 0.1, Sodium Level 140, Potassium Level 3.2L, Chloride Level 108H, Carbon Dioxide Level 22, Anion Gap 10, Blood Urea Nitrogen 21H, Creatinine 0.72, Estimat Glomerular Filtration Rate 79, BUN/Creatinine Ratio 29, Glucose Level 105, Calcium Level 8.1L, Corrected Calcium 9.4, Total Bilirubin 3.3#H, Aspartate Amino Transf (AST/SGOT) 266H, Alanine Aminotransferase (ALT/SGPT) 322H, Alkaline Phosphatase 77, Total Protein 4.5L, Albumin 2.4L, Smear Scan YES Microbiology 08/06/21 Blood Culture - Preliminary, Resulted Gram Positive Aramis Assessment/Plan Assessment/Plan Assessment/Plan Assessment Pancreatitis, possibly necrotizing pancreatitis - WBC at 11.9 from 15.0 - Anemia, most likely dilutional, 11.3 to 9.2. Monitor. - BUN at 21 from 27, better prognostic indicator Abdominal pain - Diffusely tender with exquisite tenderness to palpation in LUQ - Radiates to back today AFib with RVR - Given metoprolol - Cardiology consulted Bacteremia - Gram positive rods - Awaiting further culture results Left lower lobe consolidation r/o lobar pneumonia - CXR showing consolidation in LLL and small left-sided pleural effusion - Decreased breath sounds in LLL Hypokalemia - 3.2 this morning Transaminitis - AST and ALT 266 and 322 respectively - Decreased from 507 and 531 Hyperbilirubinemia - Down to 3.3 from 10.1 yesterday Hypertriglyceridemia Plan Continue NPO and IV fluids Continue Pip/Tazo, monitor leukocytosis Potassium replacement Hold enoxaparin d/t hematochezia Pain control as needed h/o cholecystectomy and appendectomy PICC line placed, CXR confirmed at tip of SVC Surgery, if required, would need to be done at a tertiary care center PEDRO RAMSEY DO 08/08/21 1508: Subjective Time Seen by a Provider: 09:16 Subjective/Events-last exam Pt seen and examined, looks a little better than yesterday. Although, she is now in Afib with RVR. Review of Systems General: No Chills; Fatigue Pulmonary: No Dyspnea, No Cough Cardiovascular: Palpitations; No: Chest Pain Gastrointestinal: No: Nausea, Vomiting, Abdominal Pain (Denies subjective abdominal pain, only TTP) Musculoskeletal: back pain Objective Exam General Appearance: No Apparent Distress, Chronically ill HEENT: PERRL/EOMI, Scleral Icterus (L), Scleral Icterus (R) Respiratory: No Accessory Muscle Use, No Respiratory Distress, Decreased Breath Sounds (LLL), Wheezing (Expiratory wheeze B/L) Cardiovascular: No Murmur, Irregularly Irregular (AFib with RVR o/n) Gastrointestinal: soft, no organomegaly, abnormal bowel sounds (Decreased), guarding, tenderness (Diffusely tender to palpation with exquisite tenderness in LUQ) Assessment/Plan Assessment/Plan Assessment/Plan Pancreatitis, possibly necrotizing pancreatitis Abdominal pain - pt now really only complains of back pain AFib with RVR Bacteremia Left lower lobe consolidation r/o lobar pneumonia Hypokalemia Transaminitis Hyperbilirubinemia - Down to 3.3 from 10.1 yesterday Hypertriglyceridemia Plan Continue NPO and IV fluids, Continue Pip/Tazo, monitor leukocytosis, Potassium replacement, Hold enoxaparin d/t hematochezia Pain control as needed,PICC line placed, CXR confirmed at tip of SVC. Surgery, if required, would need to be done at a tertiary care center I spoke with family and they think they would like to step back from aggressive surgery and just support pt, "not stop everything, but not plan on surgery. Thats not something she would want". I believe that number one this is their right, but more importantly not a bad descision. Surgery would be tough for even a younger healthier pt, plus she is improving and if transferred may not go to surgery. I will allow family, pt and Dr. Gonzalez to decide next step and be available for whatever is needed. I spoke with family member and Dr. Gonzalez regarding care. Supervisory-Addendum Brief Verification & Attestation Participated in pt care: history, MDM, physical Personally performed: exam, history, MDM, supervision of care Care discussed with: Medical Student Procedures: n/a Verification and Attestation of Medical Student E/M Service A medical student performed and documented this service. I then reviewed and verified all information documented by the medical student and made modifications to such information, when appropriate. I personally performed a physical exam, medical decision making and then discussed any differences between the notes and made revisions as necessary to create one note. Pedro Ramsey , 08/08/21 , 15:08 MAO ELLIS Aug 08, 2021 08:39 PEDRO RAMSEY DO Aug 08, 2021 15:08
[2021-08-08] MEDS: LIDOCAINE 4% (SALONPAS) PATCH TOP SCH (09:16)
[2021-08-08] MEDS: PANTOPRAZOLE 40 MG (PROTONIX) VIAL IV SCH (09:16)
[2021-08-08] MEDS ORDERED: TPN IV SCH (09:45)
[2021-08-08 10:35] LABS: TRIGLYCERIDES 251 MG/DL (<150); VLDL CHOLESTEROL 50 MG/DL (5-40)
--- NOTE | 2021-08-08 10:36 | Consultation-Cardiology ---
HPI-Cardiology Cardiology Consultation Date of Consultation 08/08/21 Date of Admission Time Seen by Provider: 08:34 Indication: Atrial fibrillation HPI 76-year-old lady with history of lobectomy, was admitted with abdominal pain, work-up showed pancreatitis. She was noted to have atrial fibrillation with rapid ventricular response this morning. She is having some shortness of b reath. No chest pain but having abdominal pain. She had 1 episode of atrial fibrillation reported in the past in 2017. No other episodes were reported. Home Medications & Allergies Allergies: Coded Allergies: Sulfa (Sulfonamide Antibiotics) (Unverified Allergy, Unknown, 02/10/06) lisinopril (Unverified Allergy, Unknown, 11/15/13) fentanyl (Verified Adverse Reaction, Unknown, hypotension Nausea, 08/06/21) Home Medication List Reviewed: Yes [id number] Hx Patient Social History Marital Status: Living Status: LIVES AT HOME ALONE Employed/Student: retired Smoking Status: Current Everyday Smoker Type Used: Cigarettes Recent Hopitalizations: Yes (LEFT TOTAL KNEE REPLACEMENT 8-19) Have you traveled recently?: No Alcohol Use?: No Immunizations Up To Date Date of Pneumonia Vaccine: Nov 15, 2009 Date of Influenza Vaccine: Jun 16, 2020 Past Medical History Discussed below Family Medical History Significant Family History: Heart Disease, Cancer, Diabetes, Hypertension, Stroke Family Medical Hx Noncontributory Review of Systems-General Review of Systems Constitutional: see HPI; No chills, No diaphoresis; malaise EENTM: see HPI, no symptoms reported; No hoarseness, No throat pain Respiratory: see HPI; No cough; dyspnea on exertion, short of breath Cardiovascular: see HPI; No chest pain; palpitations Gastrointestinal: see HPI, abdominal pain (RUQ); No constipation, No diarrhea; loss of appetite, nausea; No vomiting Genitourinary: no symptoms reported, see HPI Musculoskeletal: see HPI; No back pain, No joint pain Skin: no symptoms reported, see HPI Psychiatric/Neurological: See HPI; Denies Anxiety, Denies Depressed All Other Systems Reviewed Negative Unless Noted: Yes Reviewed Test Results Reviewed Test Results Lab Laboratory Tests Test 08/07/21 11:10 08/07/21 11:28 08/07/21 11:30 08/07/21 14:20 Range/Units Influenza Type A Antigen NEGATIVE NEGATIVE Influenza Type B Antigen NEGATIVE NEGATIVE SARS-CoV-2 RNA (RT-PCR) Negative Negative Lactic Acid Level 3.18 *H 3.00 *H 0.50-2.00 MMOL/L Coronavirus (COVID-19)(PCR) Negative Negative Test 08/07/21 16:28 08/08/21 06:00 Range/Units Lactic Acid Level 1.71 0.50-2.00 MMOL/L White Blood Count 11.9 H 4.3-11.0 10^3/uL Red Blood Count 2.88 L 3.80-5.11 10^6/uL Hemoglobin 9.2 L 11.5-16.0 g/dL Hematocrit 28 L 35-52 % Mean Corpuscular Volume 98 80-99 fL Mean Corpuscular Hemoglobin 32 25-34 pg Mean Corpuscular Hemoglobin Concent 33 32-36 g/dL Red Cell Distribution Width 15.2 H 10.0-14.5 % Platelet Count 215 130-400 10^3/uL Mean Platelet Volume 11.0 9.0-12.2 fL Immature Granulocyte % (Auto) 0 % Neutrophils (%) (Auto) 83 H 42-75 % Lymphocytes (%) (Auto) 14 12-44 % Monocytes (%) (Auto) 3 0-12 % Eosinophils (%) (Auto) 0 0-10 % Basophils (%) (Auto) 0 0-10 % Neutrophils # (Auto) 9.8 H 1.8-7.8 10^3/uL Lymphocytes # (Auto) 1.6 1.0-4.0 10^3/uL Monocytes # (Auto) 0.4 0.0-1.0 10^3/uL Eosinophils # (Auto) 0.0 0.0-0.3 10^3/uL Basophils # (Auto) 0.0 0.0-0.1 10^3/uL Immature Granulocyte # (Auto) 0.1 0.0-0.1 10^3/uL Sodium Level 140 135-145 MMOL/L Potassium Level 3.2 L 3.6-5.0 MMOL/L Chloride Level 108 H 98-107 MMOL/L Carbon Dioxide Level 22 21-32 MMOL/L Anion Gap 10 5-14 MMOL/L Blood Urea Nitrogen 21 H 7-18 MG/DL Creatinine 0.72 0.60-1.30 MG/DL Estimat Glomerular Filtration Rate 79 BUN/Creatinine Ratio 29 Glucose Level 105 70-105 MG/DL Calcium Level 8.1 L 8.5-10.1 MG/DL Corrected Calcium 9.4 8.5-10.1 MG/DL Total Bilirubin 3.3 #H 0.1-1.0 MG/DL Aspartate Amino Transf (AST/SGOT) 266 H 5-34 U/L Alanine Aminotransferase (ALT/SGPT) 322 H 0-55 U/L Alkaline Phosphatase 77 40-136 U/L Total Protein 4.5 L 6.4-8.2 GM/DL Albumin 2.4 L 3.2-4.5 GM/DL Smear Scan YES Physical Exam Physical Exam Vital Signs Vital Signs - First Documented 08/06/21 04:05 Temp 36.5 Pulse 58 Resp 20 B/P (MAP) 96/69 (78) Pulse Ox 98 O2 Delivery Room Air Capillary Refill : Less Than 3 Seconds Height, Weight, BMI Height: 5'5.00" Weight: 186lbs. 9.6oz. [id number]; 27.40 BMI Method: General Appearance: No Apparent Distress, Chronically ill Eyes: Bilateral Eye Normal Inspection, Bilateral Eye PERRL, Bilateral Eye EOMI HEENT: PERRL/EOMI, Scleral Icterus (L), Scleral Icterus (R) Neck: Non Tender, Supple; No Lymphadenopathy (L), No Lymphadenopathy (R) Respiratory: Chest Non Tender, No Accessory Muscle Use, No Respiratory Distress, Decreased Breath Sounds (LLL), Wheezing (Expiratory wheeze B/L) Cardiovascular: No Edema, No Murmur, Irregularly Irregular (AFib with RVR o/n) Gastrointestinal: Soft, Abnormal Bowel Sounds (DECREASED BOWEL SOUNDS), Tenderness (EPIGASTRIC) Rectal: Deferred Back: Normal Inspection, No Vertebral Tenderness Extremity: Normal Capillary Refill, No Calf Tenderness, No Pedal Edema Neurologic/Psychiatric: Alert (Arousable and answers questions), Oriented x3 (Oriented to person, place, and time), Other (Somnolent) Skin: Warm/Dry, Jaundice Lymphatic: No Adenopathy (Head and neck) A/P-Cardiology Admission Diagnosis Acute pancreatitis Atrial fibrillation Hypertension Hyperlipidemia Assessment/Plan Acute pancreatitis, possibly necrotizing, managed by surgical team. Awaiting possible transfer to a tertiary care center. Abdominal pain secondary to above. Still having active pain. Atrial fibrillation with rapid ventricular response. Has transient episode of atrial fibrillation in 2017. No further episodes were reported. I will start her on IV verapamil and IV metoprolol. Will consider adding digoxin if needed. Continue to monitor and monitor blood pressure closely. Increased risk of stroke without oral anticoagulation, patient cannot tolerate aggressive anticoagulation at this time due to the necrotizing pancreatitis and increased risk of hemorrhage. History of mild coronary artery disease per cardiac catheterization done in August 2017. Last stress test was done in March 2021 showing no evidence of active ischemia. Ejection fraction 68%. Echocardiogram was done in March 2021 showing normal LV size with EF 60 to 65%, mildly dilated left atrium, mitral regurgitation, bicuspid morphology of the aortic valve, aortic valve sclerosis. Hyperlipidemia, maintained on statin. History of lobectomy done in 2016. Left lower infiltrate, possible pneumonia, managed by primary team Tobaccoism, educated on smoking cessation Electrolyte imbalance, managed by primary team Obstructive sleep apnea maintained on CPAP JAVON HUNT MD Aug 08, 2021 10:36
[2021-08-08 10:38] LABS: PHOSPHORUS 2.7 MG/DL (2.3-4.7)
[2021-08-08 10:40] LABS: CHOLESTEROL 108 MG/DL (< 200)
[2021-08-08 10:41] LABS: HDL CHOLESTEROL < 15 MG/DL (40-60); MAGNESIUM 1.7 MG/DL (1.6-2.4)
--- NOTE | 2021-08-08 11:11 | Progress Note ---
Subjective Subjective Date Seen by Provider: Aug 08, 2021 Time Seen by Provider: 08:40 PT IS A 76 Y/O FEMALE WHO IS KNOWN TO ME FROM CLINIC. SHE PRESENTED TO THE ER WITH ABDOMINAL PAIN, WAS DIAGNOSED WITH ACUTE PANCREATITIS AND ADMITTED TO 4TH FLOOR IN STABLE CONDITION. PT ALERT AND INTERACTIVE THIS MORNING, DTR AT BEDSIDE, SON ON PHONE. DISCUSSED WITH THEM PT'S DX, NEED FOR TRANSFER - AND PENDING TRANSFER WE ARE GIVING HER IV ANTIBIOTICS. FAMILY VOCALIZED THAT IF THINGS DECLINE THEY WOULD PREFER AT THAT POINT TO CONSIDER COMFORT CARE. PT IS WANTING TO CONTINUE TO PUSH FORWARD AND IF SURGERY IS AN OPTION SHE WOULD LIKE TO HAVE MORE DEFINITIVE TREATMENT IF THAT IS AN OPTION. Review of Systems General: No Chills; Fatigue, Malaise HEENT: No Head Aches, No Visual Changes Pulmonary: No Dyspnea; Cough Cardiovascular: No: Chest Pain, Palpitations Gastrointestinal: Abdominal Pain (Denies subjective abdominal pain, only TTP); No: Nausea, Vomiting, Diarrhea Musculoskeletal: back pain; No: leg pain Neurological: Weakness; No: Change in speech All Other Systems Reviewed All Other Systems Reviewed: Yes Objective Exam Vital Signs Vital Signs Date Time Temp Pulse Resp B/P (MAP) Pulse Ox O2 Delivery O2 Flow Rate FiO2 08/08/21 10:00 149 107/77 (87) 95 Room Air 08/08/21 09:00 152 22 93/83 (86) 92 Room Air 08/08/21 08:28 37.0 08/08/21 08:00 131 18 97/68 (78) 94 Room Air 08/08/21 07:00 125 31 111/49 (69) 94 Room Air 08/08/21 07:00 130 08/08/21 06:00 112 20 109/69 (82) 92 Room Air 08/08/21 05:00 137 21 110/58 (75) 89 Room Air 08/08/21 04:01 Room Air 08/08/21 04:00 142 23 96/77 (83) 88 Room Air 08/08/21 03:30 37.6 123 22 118/72 (87) 90 Room Air 08/08/21 02:00 138 21 118/63 (81) 91 Room Air 08/08/21 01:00 130 08/08/21 01:00 126 11 126/68 (87) 94 Room Air 08/08/21 00:10 37.1 125 22 112/77 (89) 91 Room Air 08/08/21 00:00 Room Air 08/07/21 23:00 126 22 107/73 (84) 90 Room Air 08/07/21 22:00 140 25 126/73 (90) 90 Room Air 08/07/21 21:00 131 25 128/87 (101) 90 Room Air 08/07/21 20:02 Room Air 08/07/21 20:00 80 27 146/75 (98) 94 Room Air 08/07/21 19:17 36.2 86 24 138/75 (96) 91 Room Air 08/07/21 19:00 90 08/07/21 18:00 75 20 141/70 (93) 93 Room Air 08/07/21 17:45 75 20 136/65 (88) 93 Room Air 08/07/21 17:30 70 22 144/61 (88) 93 Room Air 08/07/21 17:15 80 20 151/81 (104) 94 Room Air 08/07/21 17:00 81 20 147/72 (97) 94 Room Air 08/07/21 16:30 80 22 106/70 (82) 94 Room Air 08/07/21 16:15 89 20 103/80 (88) Room Air 08/07/21 16:00 36.2 78 22 106/70 (82) 95 Room Air 08/07/21 15:15 81 24 151/78 (102) 97 Room Air 08/07/21 15:00 87 96 Room Air 08/07/21 14:45 82 149/67 (94) 93 Room Air 08/07/21 14:30 76 22 137/74 (95) 96 Room Air 08/07/21 14:15 80 20 96 Room Air 08/07/21 14:00 81 151/77 (101) 94 Room Air 08/07/21 13:45 85 26 136/62 (86) 95 Room Air 08/07/21 13:30 80 22 143/78 (99) 100 Room Air 08/07/21 13:15 75 161/97 (118) 96 Room Air 08/07/21 13:00 75 26 156/95 (115) 95 Room Air 08/07/21 12:45 75 140/96 (111) 97 Room Air 08/07/21 12:30 36.8 80 128/71 (90) 96 Room Air 08/07/21 12:29 76 08/07/21 12:15 75 22 147/97 (114) 97 Room Air 08/07/21 12:00 76 157/120 (132) 96 Room Air 08/07/21 11:45 77 24 175/97 (123) 98 Room Air 08/07/21 11:30 73 23 152/84 (106) 97 Room Air 08/07/21 11:20 94 Room Air 08/07/21 11:15 36.5 77 23 129/80 (96) 96 Room Air 08/07/21 11:15 71 22 129/80 (96) 94 Room Air I & O 08/08/21 07:00 Intake Total 3520 ml Output Total 2600 ml Balance 920 ml General Appearance: Chronically ill, Mild Distress Eyes: Bilateral Eye Normal Inspection, Bilateral Eye PERRL, Bilateral Eye EOMI HEENT: PERRL/EOMI, Scleral Icterus (L), Scleral Icterus (R) Neck: Non Tender, Supple; No Lymphadenopathy (L), No Lymphadenopathy (R) Respiratory: Chest Non Tender, No Accessory Muscle Use, No Respiratory Distress, Decreased Breath Sounds (LLL) Cardiovascular: No Edema, No Murmur, Irregularly Irregular (AFib with RVR o/n) Gastrointestinal: Soft, Abnormal Bowel Sounds (DECREASED BOWEL SOUNDS), Tenderness (EPIGASTRIC) Rectal: Deferred Back: Normal Inspection, No Vertebral Tenderness Extremity: Normal Capillary Refill, No Calf Tenderness, No Pedal Edema Neurologic/Psychiatric: Alert, Oriented x3, Other (ANXIOUS) Skin: Warm/Dry, Jaundice Lymphatic: No Adenopathy (Head and neck) Results Lab Laboratory Tests 08/07/21 11:28: Lactic Acid Level 3.18*H 08/07/21 11:30: Coronavirus (COVID-19)(PCR) Negative 08/07/21 14:20: Lactic Acid Level 3.00*H 08/07/21 16:28: Lactic Acid Level 1.71 08/08/21 06:00: White Blood Count 11.9H, Red Blood Count 2.88L, Hemoglobin 9.2L, Hematocrit 28L, Mean Corpuscular Volume 98, Mean Corpuscular Hemoglobin 32, Mean Corpuscular Hemoglobin Concent 33, Red Cell Distribution Width 15.2H, Platelet Count 215, Mean Platelet Volume 11.0, Immature Granulocyte % (Auto) 0, Neutrophils (%) (Auto) 83H, Lymphocytes (%) (Auto) 14, Monocytes (%) (Auto) 3, Eosinophils (%) (Auto) 0, Basophils (%) (Auto) 0, Neutrophils # (Auto) 9.8H, Lymphocytes # (Auto) 1.6, Monocytes # (Auto) 0.4, Eosinophils # (Auto) 0.0, Basophils # (Auto) 0.0, Immature Granulocyte # (Auto) 0.1, Sodium Level 140, Potassium Level 3.2L, Chloride Level 108H, Carbon Dioxide Level 22, Anion Gap 10, Blood Urea Nitrogen 21H, Creatinine 0.72, Estimat Glomerular Filtration Rate 79, BUN/Creatinine Ratio 29, Glucose Level 105, Calcium Level 8.1L, Corrected Calcium 9.4, Phosphorus Level 2.7, Magnesium Level 1.7, Total Bilirubin 3.3#H, Aspartate Amino Transf (AST/SGOT) 266H, Alanine Aminotransferase (ALT/SGPT) 322H, Alkaline Phosphatase 77, Total Protein 4.5L, Albumin 2.4L, Triglycerides Level 251H, Cholesterol Level 108, LDL Cholesterol Direct 34, VLDL Cholesterol 50H, HDL Cholesterol < 15L, Smear Scan YES Microbiology 08/06/21 Blood Culture - Preliminary, Resulted Gram Positive Aramis Assessment/Plan Assessment/Plan Admission Dx ACUTE PANCREATITIS EPIGASTRIC ABDOMINAL PAIN ELEVATED LIVER ENZYMES ELEVATED TRIGLYCERIDES HYPERTENSION ATRIAL FIBRILLATION - CHRONIC CHRONIC ANTICOAGULATION REFLUX Assessment and Plan ACUTE NECROTIZING PANCREATITIS SEPSIS EPIGASTRIC ABDOMINAL PAIN ELEVATED LIVER ENZYMES ELEVATED TRIGLYCERIDES HYPERTENSION ATRIAL FIBRILLATION - CHRONIC CHRONIC ANTICOAGULATION REFLUX GROGGY LACTIC ACIDOSIS SEPSIS DUE TO ACUTE NECROTIZING PANCREATITIS WITH EPIGASTRIC ABDOMINAL PAIN - CONSULT TO SURGEON - BLOOD CULTURE -PRELIM SHOWED POSSIBLE CLOSTRIDIUM - PT STARTED ON ZOSYN YESTERDAY EVENING AND FLAGYL THIS MORNING (08/07/2021) - IV ROCEPHIN INITIATED ON ADMISSION - STOPPED ON 08/06/2021 EVENING AND CHANGED TO ZOSYN - REPEAT CT SCAN BELOW - SURGEON OVERVIEW WITH ADDITIONAL RADIOLOGIST IS OF NECROTIZING PANCREATITIS - DISCUSSION WITH PT'S SON - CHARLI FIELDS - HE IS IN AGREEMENT TO TRANSFER IF POSSIBLE TO FACILITY WITH CAPABILITY OF SURGICAL INTERVENTION - HOWEVER SHOULD TRANSFER NOT BE POSSIBLE AND PT CONTINUES TO DECLINE DESPITE BEST EFFORT, HE WOULD THEN DESIRE COMFORT CARE FOR HIS MOTHER. HE ALSO SPOKE WITH HIS SISTER AND IF SHE BECOMES MORE CRITICALLY ILL AND HAS AN EVENT OF SUDDEN CARDIAC ARREST OR RESPIRATORY FAILURE THEY WOULD DESIRE PT TO BE DNR/DNI. HE WAS MADE AWARE OF THE WORKING DIAGNOSIS OF NECROTIZING PANCREATITIS WITH SEVERE DECLINE IN THE PAST FEW HOURS WITH PT BEING TRANSFERRED UP TO CARDIAC STEPDOWN ( ICU WAS PREFERRED, BUT NO BED AVAILABLE). THIS PROVIDER HAS CONTACTED [facility] - AND THERE IS NOT A BED AVAILABLE AT THIS TIME, AND [facility] FOR STATE BED PLACEMENT - STILL WAITING ON A PLACEMENT TO SEE IF WE CAN GET THE PT OUT OF [facility] TO [facility] CARE CENTER). ELEVATED LIVER ENZYMES WITH HYPERBILIRUBINEMIA - IV HYDRATION, NPO, REPEAT LABS IN MORNING. ANEMIA - SUPPORTIVE CARE, IF HGB DROPS BELOW 7 WILL TRANSFUSE ELEVATED TRIGLYCERIDES - PT ON STATIN THERAPY - WILL HOLD AT THIS TIME SINCE PT IS NPO HYPERTENSION - HOLDING METOPROLOL PO, HOLD VALSARTAN AND AMLODIPINE AT THIS TIME. ATRIAL FIBRILLATION - CHRONIC - HOLD ELIQUIS FOR NOW, ONCE ABLE TO TAKE PO, WILL RESTART, - LOVENOX INJECTIONS WERE GIVEN INITIALLY THEN PT HAD LARGE BLOODY STOOL AND LOVENOX DCD CHRONIC ANTICOAGULATION - HOLD ELIQUIS AND RESTART WHEN ABLE TO TAKE PO, LOVENOX STOPPED DUE TO GROSS HEMATOCHEZIA REFLUX - PPI THERAPY ARANGO TO BE PLACED DVT PROPHYLAXIS WITH SCD'S, LOVENOX STOPPED DUE TO GROSS HEMATOCHEZIA GI PROPHYLAXIS WITH PPI, WILL START ON PROBIOTICS WHEN ABLE TO TAKE PO FOOD/FLUIDS TOBACCOISM - PT IS REFUSING NICOTINE PATCHES PT CRITICALLY ILL, THIS PROVIDER HAS SPENT 1.25 HOURS IN TREATMENT AND COORDINATION OF CARE ON THIS PATIENT. PT STATUS: ADM IN : 1945 PHYSICIAN: REMY MCELROY MD ADMIT DATE: 08/06/21 Draft Date of Exam:08/07/21 CT ABDOMEN/PELVIS W INDICATION: Worsening pancreatitis. COMPARISON: 08/06/2021 FINDINGS: There is now small amount of left pleural fluid with mild bilateral basilar atelectasis. Below the diaphragm, there is continued edema and inflammation about the swollen head and body of pancreas. There has been significant increase in fluid adjacent to the pancreatic tail adjacent to the splenic vessels with extension into the left pericolic gutter. In addition, there is retroperitoneal gas along the inferior aspect of the pancreatic tail extending into the root of mesentery and retroperitoneum. Mural thickening is also seen along the descending duodenum. No definite acute hepatic, adrenal gland or splenic lesion is identified. Kidneys are stable. There is small amount of pelvic free fluid present. Partially opacified urinary bladder is unremarkable. There is no walled fluid collection at this time. IMPRESSION: Increasing retroperitoneal fluid and gas which is mainly adjacent to the pancreatic tail and extends into the left pericolic gutter. Given the appearance of duodenal mural thickening on the scan of one day earlier this may be related to duodenal perforation. There has also been development of mild pleural and peritoneal fluid with mural thickening of the descending colon adjacent to pericolic gutter fluid and inflammation. These findings were telephoned to the referring clinician at 0955 hours on 08/07/2021. Dictated on workstation # [id number] Dict: 08/07/21 [id number] Trans: 08/07/21 [id number] Interpreted by: DONNY ACOSTA MD Electronically signed by: Admission Dx ACUTE PANCREATITIS EPIGASTRIC ABDOMINAL PAIN ELEVATED LIVER ENZYMES ELEVATED TRIGLYCERIDES HYPERTENSION ATRIAL FIBRILLATION - CHRONIC CHRONIC ANTICOAGULATION REFLUX Clinical Quality Measures Admission Status Admission Dx ACUTE PANCREATITIS EPIGASTRIC ABDOMINAL PAIN ELEVATED LIVER ENZYMES ELEVATED TRIGLYCERIDES HYPERTENSION ATRIAL FIBRILLATION - CHRONIC CHRONIC ANTICOAGULATION REFLUX REMY MCELROY MD Aug 08, 2021 11:11
[2021-08-08] MEDS ORDERED: POTASSIUM CL 10MEQ/50ML IVPB 50 ML IV SCH (11:15)
[2021-08-08] MEDS: POTASSIUM CL 10MEQ/50ML IVPB 50 ML IV SCH ×4 (11:49→15:24)
[2021-08-08] MEDS: meTOprolol 5 MG/5 ML (LOPRESSOR) VIAL IV SCH ×2 (11:50→17:20)
[2021-08-08] MEDS: VERAPAMIL 5 MG/2 ML (CALAN) VIAL IV SCH ×3 (12:08→21:15)
[2021-08-08] MEDS: HYDROmorphone 2 MG/ML VIAL (DILAUDID) IV PRN (14:41)
[2021-08-08] MEDS ORDERED: SODIUM ACETATE IV SCH ×10 (17:00)
[2021-08-08] MEDS ORDERED: [UNRECOGNIZED DRUG - OTHER] IV SCH ×10 (17:00)
[2021-08-08] MEDS ORDERED: POTASSIUM CHLORIDE IV SCH ×10 (17:00)
[2021-08-08] MEDS ORDERED: LACTATED RINGERS 1,000 ML IV SCH (17:00)
[2021-08-08] MEDS: dilTIAZem DRIP PRE-MIX 125 ML IV SCH (17:58)
[2021-08-08] MEDS: PATCH REMOVAL TP SCH (23:54)
[2021-08-09] VITALS (15 sets, daily range): BP systolic 79–123; BP diastolic 55–101
[2021-08-09] MEDS ORDERED: DIGOXIN 0.25 MG/ML (LANOXIN) 2 ML AMP IV ONE (00:15)
[2021-08-09] MEDS: meTOprolol 5 MG/5 ML (LOPRESSOR) VIAL IV SCH ×4 (00:27→17:16)
[2021-08-09] MEDS: metroNIDAZOLE 500MG/100ML IVPB 100 ML IV SCH ×3 (00:28→11:33)
[2021-08-09] MEDS: dilTIAZem DRIP PRE-MIX 125 ML IV SCH ×3 (01:25→21:32)
[2021-08-09] MEDS: PIPERACILLIN SODIUM/TAZOBACTAM 4.5 GM in NS (IVPB) 100 ML IV SCH ×3 (02:38→17:15)
[2021-08-09] MEDS: LACTATED RINGERS 1,000 ML IV SCH ×3 (02:39→17:15)
[2021-08-09] MEDS: morphine INJ 4 MG/ML 1 ML (VIAL/SYRINGE) IVP PRN ×3 (03:55→21:20)
[2021-08-09 07:36] LABS: BASOPHILS % (AUTO) 0 % (0-10); EOSINOPHILS % (AUTO) 0 % (0-10); HEMATOCRIT 27 % (35-52); HEMOGLOBIN 8.6 g/dL (11.5-16.0); LYMPHOCYTES # (AUTO) 1.3 10^3/uL (1.0-4.0); LYMPHOCYTES % (AUTO) 11 % (12-44); MEAN CORPUSCULAR HEMOGLOBIN 32 pg (25-34); MEAN CORPUSCULAR HGB CONC 32 g/dL (32-36); MEAN CORPUSCULAR VOLUME 99 fL (80-99); MEAN PLATELET VOLUME 11.5 fL (9.0-12.2); MONOCYTES # (AUTO) 0.7 10^3/uL (0.0-1.0); MONOCYTES % (AUTO) 6 % (0-12); NEUTROPHILS # (AUTO) 9.4 10^3/uL (1.8-7.8); NEUTROPHILS % (AUTO) 82 % (42-75); PLATELET COUNT 193 10^3/uL (130-400); WHITE BLOOD COUNT 11.5 10^3/uL (4.3-11.0)
[2021-08-09 07:54] LABS: ALBUMIN 2.2 GM/DL (3.2-4.5); BILIRUBIN,TOTAL 1.7 MG/DL (0.1-1.0); CREATININE SERUM 0.72 MG/DL (0.60-1.30); POTASSIUM 3.5 MMOL/L (3.6-5.0); TOTAL PROTEIN 4.3 GM/DL (6.4-8.2)
--- NOTE | 2021-08-09 07:56 | Progress Note ---
Subjective Date Seen by a Provider: Aug 09, 2021 Time Seen by a Provider: 07:00 Subjective/Events-last exam doing ok. states back pain and epigastric pain. no fever/chills. a-fib with stable MAP. Focused Exam Lactate Level 08/07/21 11:28: Lactic Acid Level 3.18*H 08/07/21 14:20: Lactic Acid Level 3.00*H 08/07/21 16:28: Lactic Acid Level 1.71 Objective Exam Vital Signs Date Time Temp Pulse Resp B/P (MAP) Pulse Ox O2 Delivery O2 Flow Rate FiO2 08/09/21 07:30 36.6 116 18 79/55 (63) 94 Nasal Cannula 2.00 08/09/21 07:00 121 08/09/21 04:00 36.5 146 18 108/75 (86) 100 Nasal Cannula 2.00 08/09/21 03:33 93 Nasal Cannula 2.00 08/09/21 01:00 120 08/09/21 00:45 36.6 130 20 110/91 (97) Nasal Cannula 2.00 08/09/21 00:00 95 Nasal Cannula 2.00 08/08/21 22:51 36.3 08/08/21 21:00 Nasal Cannula 2.00 08/08/21 20:00 36.7 118 102/72 (82) 95 Room Air 08/08/21 19:00 128 08/08/21 18:00 112 105/67 (80) 95 Room Air 08/08/21 17:00 149 114/76 (89) 96 Room Air 08/08/21 16:03 36.4 140 87/70 (76) 97 Room Air 08/08/21 16:00 141 101/67 (78) 97 Room Air 08/08/21 16:00 96 Nasal Cannula 2.00 08/08/21 15:00 138 90/68 (75) 97 Room Air 08/08/21 14:00 138 99/80 (86) 98 Room Air 08/08/21 13:00 134 08/08/21 13:00 129 108/75 (86) 97 Room Air 08/08/21 12:00 96 Nasal Cannula 2.00 08/08/21 12:00 36.8 129 20 107/73 (84) 92 08/08/21 11:00 137 20 102/82 (89) 93 Room Air 08/08/21 10:00 149 107/77 (87) 95 Room Air 08/08/21 09:00 152 22 93/83 (86) 92 Room Air 08/08/21 08:28 37.0 08/08/21 08:00 96 Nasal Cannula 2.00 08/08/21 08:00 131 18 97/68 (78) 94 Room Air I & O 08/09/21 07:00 Intake Total 200 ml Output Total 800 ml Balance -600 ml Capillary Refill : Less Than 3 Seconds General Appearance: No Apparent Distress HEENT: PERRL/EOMI Neck: Full Range of Motion Respiratory: Decreased Breath Sounds Cardiovascular: Irregularly Irregular Gastrointestinal: soft, tenderness Extremity: Normal Capillary Refill Neurologic/Psychiatric: Alert, Oriented x3 Skin: Normal Color Lymphatic: No Adenopathy Results Lab Laboratory Tests 08/09/21 06:45: White Blood Count 11.5H, Red Blood Count 2.71L, Hemoglobin 8.6L, Hematocrit 27L, Mean Corpuscular Volume 99, Mean Corpuscular Hemoglobin 32, Mean Corpuscular Hemoglobin Concent 32, Red Cell Distribution Width 15.7H, Platelet Count 193, Mean Platelet Volume 11.5, Immature Granulocyte % (Auto) 1, Neutrophils (%) (Auto) 82H, Lymphocytes (%) (Auto) 11L, Monocytes (%) (Auto) 6, Eosinophils (%) (Auto) 0, Basophils (%) (Auto) 0, Neutrophils # (Auto) 9.4H, Lymphocytes # (Auto) 1.3, Monocytes # (Auto) 0.7, Eosinophils # (Auto) 0.0, Basophils # (Auto) 0.0, Immature Granulocyte # (Auto) 0.1 Microbiology 08/07/21 Gram Stain - Final, Resulted 08/07/21 Sputum Culture - Preliminary, Resulted Usual upper respiratory erika 08/06/21 Blood Culture - Preliminary, Resulted No growth Assessment/Plan Assessment/Plan Assess & Plan/Chief Complaint pancreatic necrosis. patient not surgical candidate and exceeds limitations of our institution. patient also does not want surgery as well. will cont medical management. increase IV pain med. repeat CT abd today. BHAVESH TELLEZ MD Aug 09, 2021 07:56
[2021-08-09] MEDS: fentaNYL INJ 100 MCG/2 ML AMP IVP PRN ×3 (08:05→17:16)
[2021-08-09] MEDS ORDERED: AMIODARONE FOR BOLUS 150 MG in NS (IVPB) 100 ML IV ONE (08:15)
[2021-08-09] MEDS ORDERED: AMIODARONE INJECTION 450 MG in D5W IV SOLUTION (EXCEL) 250 ML IV SCH (08:15)
--- NOTE | 2021-08-09 09:17 | Diagnostic Imaging Report ---
PROCEDURE: CT abdomen with and without contrast. TECHNIQUE: Multiple contiguous axial CT images of the abdomen were obtained prior to and after intravenous administration of iodinated contrast. Auto Exposure Controls were utilized during the CT exam to meet ALARA standards for radiation dose reduction. INDICATION: 76-year-old female, pancreatitis. CORRELATION STUDY: 08/07/2021 FINDINGS: LOWER THORAX: There has been development of a small to moderate bilateral pleural effusions with compressive atelectasis lower lobes. Heart size enlarged, coronary artery and cardiac valvular calcification. Trace pericardial effusion. Presence of pectus excavatum which results in deformity about the anterior heart. LIVER: Heterogeneous attenuation. Central hepatic dome, there is a somewhat ill-defined lobulated lower attenuating region measuring 2.5 x 1.5 cm. Best appreciated on delayed images. Mild central intrahepatic bile duct prominence. GALLBLADDER: Not visualized. Extrahepatic bile duct within normal limits. SPLEEN: Unremarkable. PANCREAS: Continued edema and inflammation about the pancreas. Does remain relatively otherwise normal enhancement of the pancreas without evidence for necrosis. A complex fluid and gas containing collection in the left retroperitoneal region just posterior and inferior to the pancreatic body and tail is again demonstrated. Measures approximately 5.3 x 3.8 cm, relatively stable. Additional fluid along the left paracolic and right paracolic gutters are generally stable. This collection does blur inseparably with the proximal descending colon. ADRENAL GLANDS: Adrenal gland thickening, unchanged. KIDNEYS: Normal configuration. No calcification or obstruction. ABDOMINAL AORTA: Mild atherosclerotic wall calcification, nonaneurysmal. Celiac trunk superior mesenteric artery and renal arteries are patent at their origins. GASTROINTESTINAL TRACT: The stomach is collapsed with resultant gastric wall thickening. Mural thickening of the duodenum is again demonstrated. Visualized segments small bowel are without evidence for obstruction. OSSEOUS STRUCTURES: No acute abnormality. OTHER: Pelvis is not imaged on this study. IMPRESSION: 1. Findings remain consistent with acute interstitial pancreatitis. 2. Complex gas and fluid collection left retroperitoneal region adjacent to the pancreatic body and tail is present extending to the left paracolic gutter. Overall appears generally stable. Possibility of a visceral perforation. Perhaps the duodenum is not excluded. This could also be reflective of potential developing infected pseudocyst. 3. Development of a small to moderate bilateral pleural effusions and compressive atelectasis the lower lobes. 4. Indeterminate hepatic dome lesion. Follow-up assessment is recommended. Dictated by: Dictated on workstation # [id number]
[2021-08-09] MEDS ORDERED: HOLD METFORMIN - RECEIVED CONTRAST 20 ML VIAL IV SCH (09:30)
[2021-08-09] MEDS ORDERED: NS 100 ML (IVPB) BAG IV ONE (09:30)
[2021-08-09] MEDS ORDERED: IOHEXOL 350 MG/ML 100 ML (OMNIPAQUE 350) VIAL IV ONE (09:30)
[2021-08-09] MEDS: LIDOCAINE 4% (SALONPAS) PATCH TOP SCH (10:13)
[2021-08-09] MEDS: PANTOPRAZOLE 40 MG (PROTONIX) VIAL IV SCH (10:14)
--- NOTE | 2021-08-09 12:13 | Cardiology Progress Note ---
Subjective Date Seen by Provider: Aug 09, 2021 Time Seen by Provider: 12:11 Subjective/Events-last exam Patient is laying down in bed, reporting improvement in her abdominal pain, still tachycardic. Review of Systems General: No Chills, No Night Sweats; Fatigue; No Malaise, No Appetite, No Other HEENT: No Head Aches, No Visual Changes, No Eye Pain, No Ear Pain, No Dy sphasia, No Sinus Congestion, No Post Nasal Drip, No Sore Throat, No Other Pulmonary: No Dyspnea, No Cough, No Pleuritic Chest Pain, No Other Cardiovascular: No: Chest Pain, Palpitations, Orthopnea, Paroxysmal Noc. Dyspnea, Edema, Lt Headedness, Other Focused Exam Lactate Level 08/07/21 11:28: Lactic Acid Level 3.18*H 08/07/21 14:20: Lactic Acid Level 3.00*H 08/07/21 16:28: Lactic Acid Level 1.71 Objective-Cardiology Exam Last Set of Vital Signs Vital Signs 08/09/21 11:16 Temp 36.9 Pulse 144 Resp 18 B/P (MAP) 122/79 (93) Pulse Ox 92 O2 Delivery Nasal Cannula O2 Flow Rate 2.00 I&O Intake and Output 08/09/21 00:00 Intake Total 300 ml Output Total 1450 ml Balance -1150 ml Intake Oral 0 ml IV Total 300 ml Output Urine Total 1450 ml General: Alert, Oriented X3, Cooperative HEENT: Atraumatic, PERRLA Neck: Supple, No JVD, No Thyromegaly Lungs: Clear to Auscultation, Normal Air Movement Heart: Normal S1, Normal S2, No Murmurs, Other (Atrial fibrillation with rapid ventricular response) Abdomen: Soft, No Hepatosplenomegaly, No Masses, Other (Diminished bowel sounds, mild tenderness) Extremities: No Clubbing, No Cyanosis, No Edema, Normal Pulses, No Tenderness/Swelling Skin: No Rashes, No Breakdown, No Significant Lesion Neuro: Normal Speech, Sensation Intact Psych/Mental Status: Mental Status NL, Mood NL Results Lab Laboratory Tests 08/09/21 06:45 A/P-Cardiology Admission Diagnosis Acute pancreatitis Atrial fibrillation Hypertension Hyperlipidemia Assessment/Plan Acute pancreatitis, possibly necrotizing, managed by surgical team. Awaiting possible transfer to a tertiary care center. Abdominal pain secondary to above. Still having active pain. Atrial fibrillation with rapid ventricular response. Has transient episode of atrial fibrillation in 2017. No further episodes were reported. Difficult to control, I attempted with verapamil and metoprolol, started Cardizem drip with increasing doses without achieving adequate control, I added amiodarone at this time and we will monitor tolerance and response, adding digoxin Increased risk of stroke without oral anticoagulation, patient cannot tolerate aggressive anticoagulation at this time due to the necrotizing pancreatitis and increased risk of hemorrhage. History of mild coronary artery disease per cardiac catheterization done in August 2017. Last stress test was done in March 2021 showing no evidence of active ischemia. Ejection fraction 68%. Echocardiogram was done in March 2021 showing normal LV size with EF 60 to 65%, mildly dilated left atrium, mitral regurgitation, bicuspid morphology of the aortic valve, aortic valve sclerosis. Hyperlipidemia, maintained on statin. History of lobectomy done in 2016. Left lower infiltrate, possible pneumonia, managed by primary team Tobaccoism, educated on smoking cessation Electrolyte imbalance, managed by primary team Obstructive sleep apnea maintained on CPAP JAVON HUNT MD Aug 09, 2021 12:12
--- NOTE | 2021-08-09 15:24 | Progress Note - Hospitalist ---
Subjective HPI/CC On Admission Date Seen by Provider: Aug 09, 2021 Time Seen by Provider: 10:30 Subjective/Events-last exam She is feeling about the same. She continues to have epigastric abdominal pain, but reports it is well controlled with pain meds. She is not having any nausea or vomiting. She denies shortness of breath. Focused Exam Lactate Level 08/07/21 11:28: Lactic Acid Level 3.18*H 08/07/21 14:20: Lactic Acid Level 3.00*H 08/07/21 16:28: Lactic Acid Level 1.71 Objective Exam Vital Signs Vital Signs Date Time Temp Pulse Resp B/P (MAP) Pulse Ox O2 Delivery O2 Flow Rate FiO2 08/09/21 13:00 107 08/09/21 12:00 Nasal Cannula 2.00 08/09/21 11:16 36.9 18 122/79 (93) 92 Capillary Refill : Less Than 3 Seconds General Appearance: No Apparent Distress, Obese Respiratory: Lungs Clear, Normal Breath Sounds, No Respiratory Distress Cardiovascular: No Edema, Irregularly Irregular, Tachycardia Gastrointestinal: Soft, Abnormal Bowel Sounds (hypoactive); No Distended, No Guarding; Tenderness Extremity: Normal Inspection, No Pedal Edema Neurologic/Psychiatric: Alert, Normal Mood/Affect Skin: Normal Color, Warm/Dry Results/Procedures Lab Laboratory Tests 08/09/21 06:45 Patient resulted labs reviewed. Imaging: Reviewed Imaging Report Assessment/Plan Assessment and Plan Assess & Plan/Chief Complaint Necrotizing pancreatitis Elevated LFTs Clostridium perfringins bacteremia Decrease IV fluids Continue antibiotics Pain regimen LFTs improving CT Abdomen stable Surgery following Awaiting bed availability for transfer, [place] Control coordinating AFib with RVR Cardiology following Cardizem Amiodarone Metoprolol Digoxin Anticoagulation held HTN GERD Tobacco abuse Obesity DVT prophylaxis: held due to bleeding Diagnosis/Problems Diagnosis/Problems (1) Acute pancreatitis with infected necrosis Status: Acute Qualifiers: Pancreatitis type: unspecified pancreatitis type Qualified Codes: K85.92 - Acute pancreatitis with infected necrosis, unspecified (2) Elevated liver enzymes Status: Acute (3) Atrial fibrillation with RVR Status: Acute (4) Smoker Status: Chronic (5) Obesity Status: Chronic GRECIA YIN MD Aug 09, 2021 15:24
[2021-08-09] MEDS ORDERED: NS (IVPB) 250 ML ONE (21:25)
[2021-08-09] MEDS: PATCH REMOVAL TP SCH (21:32)
[2021-08-10] VITALS (26 sets, daily range): BP systolic 83–121; BP diastolic 61–91
[2021-08-10] MEDS: fentaNYL INJ 100 MCG/2 ML AMP IVP PRN (00:30)
[2021-08-10] MEDS: LACTATED RINGERS 1,000 ML IV SCH ×4 (00:30→18:10)
[2021-08-10] MEDS: meTOprolol 5 MG/5 ML (LOPRESSOR) VIAL IV SCH ×5 (00:33→23:59)
[2021-08-10] MEDS: metroNIDAZOLE 500MG/100ML IVPB 100 ML IV SCH ×3 (00:38→17:00)
[2021-08-10] MEDS: PIPERACILLIN SODIUM/TAZOBACTAM 4.5 GM in NS (IVPB) 100 ML IV SCH ×3 (02:00→18:04)
[2021-08-10] MEDS: dilTIAZem DRIP PRE-MIX 125 ML IV SCH ×3 (07:03→19:54)
[2021-08-10 07:19] LABS: BASOPHILS % (AUTO) 0 % (0-10); EOSINOPHILS % (AUTO) 0 % (0-10); HEMATOCRIT 26 % (35-52); HEMOGLOBIN 8.3 g/dL (11.5-16.0); LYMPHOCYTES # (AUTO) 1.3 10^3/uL (1.0-4.0); LYMPHOCYTES % (AUTO) 10 % (12-44); MEAN CORPUSCULAR HEMOGLOBIN 32 pg (25-34); MEAN CORPUSCULAR HGB CONC 32 g/dL (32-36); MEAN CORPUSCULAR VOLUME 99 fL (80-99); MEAN PLATELET VOLUME 11.3 fL (9.0-12.2); MONOCYTES # (AUTO) 1.3 10^3/uL (0.0-1.0); MONOCYTES % (AUTO) 10 % (0-12); NEUTROPHILS % (AUTO) 78 % (42-75); PLATELET COUNT 193 10^3/uL (130-400); WHITE BLOOD COUNT 12.8 10^3/uL (4.3-11.0)
[2021-08-10 07:33] LABS: BILIRUBIN,TOTAL 1.3 MG/DL (0.1-1.0); CALCIUM 6.8 MG/DL (8.5-10.1); CREATININE SERUM 0.66 MG/DL (0.60-1.30); POTASSIUM 3.6 MMOL/L (3.6-5.0); TOTAL PROTEIN 4.2 GM/DL (6.4-8.2)
[2021-08-10] MEDS: PANTOPRAZOLE 40 MG (PROTONIX) VIAL IV SCH (09:06)
[2021-08-10] MEDS: morphine INJ 4 MG/ML 1 ML (VIAL/SYRINGE) IVP PRN ×2 (09:07→12:41)
[2021-08-10] MEDS: DIGOXIN 0.25 MG/ML (LANOXIN) 2 ML AMP IV SCH (09:09)
[2021-08-10] MEDS: LIDOCAINE 4% (SALONPAS) PATCH TOP SCH (09:24)
--- NOTE | 2021-08-10 10:15 | Progress Note ---
Subjective Date Seen by a Provider: Aug 10, 2021 Time Seen by a Provider: 09:30 Subjective/Events-last exam doing better today. back pain better controlled. mild abd pain. no fever/chills. no nausea/vomiting. Focused Exam Lactate Level 08/07/21 11:28: Lactic Acid Level 3.18*H 08/07/21 14:20: Lactic Acid Level 3.00*H 08/07/21 16:28: Lactic Acid Level 1.71 Objective Exam Vital Signs Date Time Temp Pulse Resp B/P (MAP) Pulse Ox O2 Delivery O2 Flow Rate FiO2 08/10/21 08:00 98 Nasal Cannula 2.00 08/10/21 07:16 36.7 106 16 114/88 (97) 93 Nasal Cannula 2.00 08/10/21 07:00 98 08/10/21 04:00 36.6 115 16 108/80 (89) 94 08/10/21 04:00 98 Room Air 2.00 08/10/21 01:00 108 08/10/21 00:00 36.2 131 20 112/79 (90) 92 Room Air 08/09/21 23:59 94 Nasal Cannula 2.00 08/09/21 22:32 36.8 08/09/21 20:00 98 Nasal Cannula 2.00 08/09/21 19:44 36.8 23 105/67 (80) 95 Nasal Cannula 2.00 08/09/21 19:00 119 08/09/21 17:00 102 107/81 (90) 95 Nasal Cannula 2.00 08/09/21 16:23 Nasal Cannula 2.00 08/09/21 16:00 112 98/74 (82) 95 Nasal Cannula 2.00 08/09/21 15:42 36.8 08/09/21 15:00 126 105/71 (82) 91 Nasal Cannula 2.00 08/09/21 14:00 131 99/70 (80) 92 Nasal Cannula 2.00 08/09/21 13:00 107 08/09/21 13:00 133 17 116/101 (106) 92 Nasal Cannula 2.00 08/09/21 12:00 Nasal Cannula 2.00 08/09/21 12:00 134 19 110/82 (91) 90 Nasal Cannula 2.00 08/09/21 11:16 36.9 144 18 122/79 (93) 92 Nasal Cannula 2.00 I & O 08/10/21 07:00 Intake Total 2303 ml Output Total 2325 ml Balance -22 ml Capillary Refill : Less Than 3 Seconds General Appearance: No Apparent Distress HEENT: PERRL/EOMI Neck: Full Range of Motion Respiratory: Chest Non Tender, Decreased Breath Sounds Cardiovascular: Irregularly Irregular Gastrointestinal: normal bowel sounds, soft, tenderness Extremity: Normal Capillary Refill Neurologic/Psychiatric: Alert, Oriented x3 Skin: Normal Color Lymphatic: No Adenopathy Results Lab Laboratory Tests 08/10/21 06:45: White Blood Count 12.8H, Red Blood Count 2.62L, Hemoglobin 8.3L, Hematocrit 26L, Mean Corpuscular Volume 99, Mean Corpuscular Hemoglobin 32, Mean Corpuscular Hemoglobin Concent 32, Red Cell Distribution Width 15.9H, Platelet Count 193, Mean Platelet Volume 11.3, Immature Granulocyte % (Auto) 1, Neutrophils (%) (Auto) 78H, Lymphocytes (%) (Auto) 10L, Monocytes (%) (Auto) 10, Eosinophils (%) (Auto) 0, Basophils (%) (Auto) 0, Neutrophils # (Auto) 10.0H, Lymphocytes # (Auto) 1.3, Monocytes # (Auto) 1.3H, Eosinophils # (Auto) 0.0, Basophils # (Auto) 0.0, Immature Granulocyte # (Auto) 0.1, Sodium Level 143, Potassium Level 3.6, Chloride Level 111H, Carbon Dioxide Level 18L, Anion Gap 14, Blood Urea Nitrogen 14, Creatinine 0.66, Estimat Glomerular Filtration Rate 87, BUN/Cre atinine Ratio 21, Glucose Level 79, Calcium Level 6.8L, Corrected Calcium 8.4L, Total Bilirubin 1.3H, Aspartate Amino Transf (AST/SGOT) 37H, Alanine Aminotransferase (ALT/SGPT) 120H, Alkaline Phosphatase 74, Total Protein 4.2L, Albumin 2.0L, Digoxin Level 0.55L Microbiology 08/07/21 Gram Stain - Final, Resulted 08/07/21 Sputum Culture - Preliminary, Resulted Usual upper respiratory erika 08/06/21 Blood Culture - Preliminary, Resulted No growth Assessment/Plan Assessment/Plan Assess & Plan/Chief Complaint pancreatic necrosis. patient not surgical candidate and exceeds limitations of our institution. patient also does not want surgery as well. will cont medical management. increase IV pain med. no change on recent CT scan abd. if continues to improve would recommend evaluating upper GI tract with contrast study and slowly start to use alimentary system. BHAVESH TELLEZ MD Aug 10, 2021 10:15
--- NOTE | 2021-08-10 10:29 | Cardiology Progress Note ---
Subjective Date Seen by Provider: Aug 10, 2021 Time Seen by Provider: 10:28 Subjective/Events-last exam Patient is laying down in bed, feeling better. Less abdominal pain Review of Systems General: No Chills, No Night Sweats; Fatigue, Malaise; No Appetite, No Other HEENT: No Head Aches, No Visual Changes, No Eye Pain, No Ear Pain, No Dysphasia, No Sinus Congestion, No Post Nasal Drip, No Sore Throat, No Other Pulmonary: Dyspnea; No Cough, No Pleuritic Chest Pain, No Other Cardiovascular: No: Chest Pain, Palpitations, Orthopnea, Paroxysmal Noc. Dyspnea, Edema, Lt Headedness, Other Focused Exam Lactate Level 08/07/21 11:28: Lactic Acid Level 3.18*H 08/07/21 14:20: Lactic Acid Level 3.00*H 08/07/21 16:28: Lactic Acid Level 1.71 Objective-Cardiology Exam Last Set of Vital Signs Vital Signs 08/10/21 08/10/21 07:16 08:00 Temp 36.7 Pulse 106 Resp 16 B/P (MAP) 114/88 (97) Pulse Ox 98 O2 Delivery Nasal Cannula O2 Flow Rate 2.00 I&O Intake and Output 08/10/21 00:00 Intake Total 2678 ml Output Total 2475 ml Balance 203 ml Intake Oral 1075 ml IV Total 1603 ml Output Urine Total 2475 ml General: Alert, Oriented X3, Cooperative HEENT: Atraumatic, PERRLA Neck: Supple, No JVD, No Thyromegaly Lungs: Clear to Auscultation, Normal Air Movement Heart: Normal S1, Normal S2, No Murmurs, Other Abdomen: Soft, No Hepatosplenomegaly, No Masses, Other Extremities: No Clubbing, No Cyanosis, No Edema, Normal Pulses, No Tenderness/Swelling Skin: No Rashes, No Breakdown, No Significant Lesion Neuro: Normal Speech, Sensation Intact Psych/Mental Status: Mental Status NL, Mood NL Results Lab Laboratory Tests 08/10/21 06:45 A/P-Cardiology Admission Diagnosis Acute pancreatitis Atrial fibrillation Hypertension Hyperlipidemia Assessment/Plan Acute necrotizing pancreatitis with possible pseudocyst, questionable perforation. Managed by surgical team. Awaiting possible transfer to a tertiary care center. Abdominal pain secondary to above. Reporting mild improvement today Atrial fibrillation with rapid ventricular response. Has transient episode of atrial fibrillation in 2017. Heart rate is slightly better at this time. Continue to monitor Increased risk of stroke without oral anticoagulation, patient cannot tolerate aggressive anticoagulation at this time due to the necrotizing pancreatitis and increased risk of hemorrhage. History of mild coronary artery disease per cardiac catheterization done in August 2017. Last stress test was done in March 2021 showing no evidence of active ischemia. Ejection fraction 68%. Echocardiogram was done in March 2021 showing normal LV size with EF 60 to 65%, mildly dilated left atrium, mitral regurgitation, bicuspid morphology of the aortic valve, aortic valve sclerosis. Hyperlipidemia, maintained on statin. History of lobectomy done in 2016. Left lower infiltrate, possible pneumonia, managed by primary team Tobaccoism, educated on smoking cessation Electrolyte imbalance, managed by primary team Obstructive sleep apnea maintained on CPAP JAVON HUNT MD Aug 10, 2021 10:29
--- NOTE | 2021-08-10 13:42 | Diagnostic Imaging Report ---
INDICATION: PICC line placement. TECHNIQUE: Single view chest 1:25 PM. CORRELATION STUDY: 08/07/2021 FINDINGS: Right upper extremity central line is again demonstrated. Tip is not well-defined but appears to be traced to approximate level of the superior right para mediastinal region likely near the innominate vein approaching the SVC. May have been retracted since prior. Heart size is enlarged. Mediastinum stable with calcification of the aortic arch. Mixed but predominantly interstitial opacities particularly the right upper lobe to a lesser degree bilateral lung bases adversely changed. Small effusions. IMPRESSION: 1. Right upper extremity central line tip not well visualized but appears to be likely at the junction innominate vein and superior vena cava. 2. Adverse change lung beasley with a mixed alveolar interstitial infiltrate like opacities particularly at the right upper lobe and lung bases. May be reflective asymmetric areas of edema or multilobe pneumonia. Dictated by: Dictated on workstation # [id number]
--- NOTE | 2021-08-10 16:36 | Progress Note - Hospitalist ---
Subjective HPI/CC On Admission Date Seen by Provider: Aug 10, 2021 Time Seen by Provider: 10:10 Subjective/Events-last exam She is feeling better. Her pain is well controlled. She wants to try more clear liquids today. She denies nausea and vomiting. She has not had a bowel movement. Objective Exam Vital Signs Vital Signs Date Time Temp Pulse Resp B/P (MAP) Pulse Ox O2 Delivery O2 Flow Rate FiO2 08/10/21 16:29 98 Nasal Cannula 2.00 08/10/21 14:40 116 18 111/91 (98) 08/10/21 11:18 35.9 Capillary Refill : Less Than 3 Seconds General Appearance: No Apparent Distress, Obese Respiratory: Lungs Clear, Normal Breath Sounds, No Respiratory Distress Cardiovascular: Irregularly Irregular, Tachycardia Gastrointestinal: Normal Bowel Sounds, Non Tender, Soft Extremity: Normal Inspection, Non Tender, Pedal Edema Neurologic/Psychiatric: Alert, Oriented x3, Normal Mood/Affect Skin: Normal Color, Warm/Dry Results/Procedures Lab Laboratory Tests 08/10/21 06:45 Patient resulted labs reviewed. Imaging: Reviewed Imaging Report Assessment/Plan Assessment and Plan Assess & Plan/Chief Complaint Necrotizing pancreatitis Elevated LFTs Clostridium perfringins bacteremia IV fluids Continue antibiotics Pain regimen LFTs improving Surgery following AFib with RVR Cardiology following Cardizem, Amiodarone, Metoprolol, and Digoxin Anticoagulation held due to bleeding HTN GERD Tobacco abuse Obesity DVT prophylaxis: held due to bleeding Diagnosis/Problems Diagnosis/Problems (1) Acute pancreatitis with infected necrosis Status: Acute Qualifiers: Pancreatitis type: unspecified pancreatitis type Qualified Codes: K85.92 - Acute pancreatitis with infected necrosis, unspecified (2) Elevated liver enzymes Status: Acute (3) Atrial fibrillation with RVR Status: Acute (4) Smoker Status: Chronic (5) Obesity Status: Chronic GRECIA YIN MD Aug 10, 2021 16:36
[2021-08-10] MEDS: polyethylene glycoL POWDER 17 GM (MIRALAX) PACK PO SCH ×2 (17:00→21:33)
[2021-08-10] MEDS: PATCH REMOVAL TP SCH (21:00)
[2021-08-11] VITALS (13 sets, daily range): BP systolic 89–131; BP diastolic 64–86
[2021-08-11] MEDS: metroNIDAZOLE 500MG/100ML IVPB 100 ML IV SCH ×3 (00:02→15:10)
[2021-08-11] MEDS: PIPERACILLIN SODIUM/TAZOBACTAM 4.5 GM in NS (IVPB) 100 ML IV SCH ×3 (01:54→18:33)
[2021-08-11] MEDS: LACTATED RINGERS 1,000 ML IV SCH ×3 (01:54→20:47)
[2021-08-11] MEDS: dilTIAZem DRIP PRE-MIX 125 ML IV SCH ×2 (04:33→15:09)
[2021-08-11 05:03] LABS: BASOPHILS % (AUTO) 0 % (0-10); EOSINOPHILS # (AUTO) 0.1 10^3/uL (0.0-0.3); EOSINOPHILS % (AUTO) 1 % (0-10); HEMATOCRIT 25 % (35-52); HEMOGLOBIN 8.2 g/dL (11.5-16.0); LYMPHOCYTES # (AUTO) 1.6 10^3/uL (1.0-4.0); LYMPHOCYTES % (AUTO) 16 % (12-44); MEAN CORPUSCULAR HEMOGLOBIN 32 pg (25-34); MEAN CORPUSCULAR HGB CONC 32 g/dL (32-36); MEAN CORPUSCULAR VOLUME 98 fL (80-99); MEAN PLATELET VOLUME 10.8 fL (9.0-12.2); MONOCYTES # (AUTO) 1.1 10^3/uL (0.0-1.0); MONOCYTES % (AUTO) 11 % (0-12); NEUTROPHILS # (AUTO) 6.7 10^3/uL (1.8-7.8); NEUTROPHILS % (AUTO) 68 % (42-75); WHITE BLOOD COUNT 9.9 10^3/uL (4.3-11.0)
[2021-08-11 05:05] LABS: PLATELET COUNT 131 10^3/uL (130-400)
[2021-08-11 05:25] LABS: CALCIUM 7.2 MG/DL (8.5-10.1)
[2021-08-11 05:26] LABS: TOTAL PROTEIN 3.8 GM/DL (6.4-8.2)
[2021-08-11 05:27] LABS: BILIRUBIN,TOTAL 1.2 MG/DL (0.1-1.0)
[2021-08-11 05:29] LABS: CREATININE SERUM 0.62 MG/DL (0.60-1.30)
[2021-08-11] MEDS: meTOprolol 5 MG/5 ML (LOPRESSOR) VIAL IV SCH ×4 (05:44→23:07)
--- NOTE | 2021-08-11 07:16 | Progress Note - Surgery ---
MAO ELLIS 08/11/21 0716: Subjective Date Seen by a Provider: Aug 11, 2021 Time Seen by a Provider: 07:11 Subjective/Events-last exam Ms. Arriaga is doing well this morning. She was alert and oriented and able to answer questions well this morning. She denies abdominal pain this morning but s ays her back pain will come and go with medicine. She is on a clear liquid diet and tolerating it well. She has not had a bowel movement since she has been here but denies feelings of constipation. She still has a urinary catheter. Still in AFib with HR around 80-100. Patient is vastly improved from when I saw her last on Wednesday. Patient's daughter was at bedside and was curious about the next step in treatment and where to go from here. Review of Systems General: No Chills, No Fatigue HEENT: No Head Aches, No Visual Changes Pulmonary: Dyspnea (When changing positions), Cough Cardiovascular: No: Chest Pain, Palpitations Gastrointestinal: No: Nausea, Vomiting, Abdominal Pain, Diarrhea, Constipation Genitourinary: Other (Urinary cath) Musculoskeletal: back pain; No: leg pain Neurological: No: Weakness, Confusion Objective Exam Vital Signs Date Time Temp Pulse Resp B/P (MAP) Pulse Ox O2 Delivery O2 Flow Rate FiO2 08/11/21 06:00 89 99/66 (77) 96 Nasal Cannula 2.00 08/11/21 05:00 98 107/64 (78) 96 Nasal Cannula 2.00 08/11/21 04:00 101 102/83 (89) 96 Nasal Cannula 2.00 08/11/21 04:00 36.5 08/11/21 04:00 98 Nasal Cannula 2.00 08/11/21 03:15 86 103/84 (90) 96 Nasal Cannula 2.00 08/11/21 03:00 128 89/79 (82) 96 Nasal Cannula 2.00 08/11/21 02:00 92 120/66 (84) 95 Nasal Cannula 2.00 08/11/21 01:00 106 107/67 (80) 94 Nasal Cannula 2.00 08/11/21 01:00 106 08/11/21 00:00 36.7 98 121/78 (92) 94 Nasal Cannula 2.00 08/10/21 23:59 98 Nasal Cannula 2.00 08/10/21 23:00 105 101/66 (78) 94 Nasal Cannula 2.00 08/10/21 22:00 98 120/72 (88) 95 Nasal Cannula 2.00 08/10/21 21:10 Nasal Cannula 2.00 08/10/21 21:00 130 118/66 (83) 94 Nasal Cannula 2.00 08/10/21 20:00 36.4 97 18 94/76 (82) Nasal Cannula 08/10/21 20:00 98 Nasal Cannula 2.00 08/10/21 19:00 103 08/10/21 19:00 131 121/82 (95) 96 Nasal Cannula 2.00 08/10/21 16:29 98 Nasal Cannula 2.00 08/10/21 16:00 36.6 120 15 106/70 (82) 96 Nasal Cannula 08/10/21 14:40 116 18 111/91 (98) 96 Nasal Cannula 2.00 08/10/21 14:30 111/91 (98) 08/10/21 14:00 106/68 (81) 08/10/21 13:45 114/72 (86) 08/10/21 13:30 95/70 (78) 08/10/21 13:20 113 16 83/67 (72) 96 Nasal Cannula 2.00 08/10/21 13:00 105 08/10/21 12:50 94 18 107/90 (96) 94 Nasal Cannula 2.00 08/10/21 12:35 93 25 109/85 (93) 96 Nasal Cannula 2.00 08/10/21 12:21 107 14 97/73 (81) 97 Nasal Cannula 2.00 08/10/21 12:05 115 19 107/75 (86) 96 Nasal Cannula 2.00 08/10/21 11:51 101 16 117/62 (80) 95 Nasal Cannula 2.00 08/10/21 11:45 108 16 118/61 (80) 96 Nasal Cannula 2.00 08/10/21 11:40 113/70 (84) 08/10/21 11:35 115/71 (86) 08/10/21 11:30 120/66 (84) 08/10/21 11:25 119/64 (82) 08/10/21 11:18 35.9 120 19 98/63 (75) 96 Nasal Cannula 2.00 08/10/21 11:06 98 Nasal Cannula 2.00 08/10/21 08:00 98 Nasal Cannula 2.00 08/10/21 07:16 36.7 106 16 114/88 (97) 93 Nasal Cannula 2.00 I & O 08/11/21 07:00 Intake Total 1420 ml Output Total 2190 ml Balance -770 ml Capillary Refill : Less Than 3 Seconds General Appearance: No Apparent Distress HEENT: PERRL/EOMI, Pale Conjunctivae (L), Pale Conjunctivae (R); No Scleral Icterus (L), No Scleral Icterus (R) Neck: Normal Inspection, Non Tender, Supple; No Lymphadenopathy (L), No Lymphadenopathy (R) Respiratory: Chest Non Tender, Lungs Clear, No Respiratory Distress, Decreased Breath Sounds (B/L), Wheezing Cardiovascular: No Edema, Normal Peripheral Pulses, Irregularly Irregular, Tachycardia Peripheral Pulses: 2+ Dorsalis Pedis (R), 2+ Left Dors-Pedis (L), 2+ Radial Pulses (R), 2+ Radial Pulses (L) Gastrointestinal: soft, abnormal bowel sounds (Decreased), tenderness (Slightly tender to deep palpation in the RLQ) Extremity: Normal Inspection, Non Tender, No Calf Tenderness Neurologic/Psychiatric: Alert, Oriented x3, No Motor/Sensory Deficits, Normal Mood/Affect Skin: Normal Color, Warm/Dry Lymphatic: No Adenopathy (Head and neck) Results Lab Laboratory Tests 08/11/21 04:45: White Blood Count 9.9, Red Blood Count 2.57L, Hemoglobin 8.2L, Hematocrit 25L, M tom Corpuscular Volume 98, Mean Corpuscular Hemoglobin 32, Mean Corpuscular Hemoglobin Concent 32, Red Cell Distribution Width 15.6H, Platelet Count 131, Mean Platelet Volume 10.8, Immature Granulocyte % (Auto) 4, Neutrophils (%) (Auto) 68, Lymphocytes (%) (Auto) 16, Monocytes (%) (Auto) 11, Eosinophils (%) (Auto) 1, Basophils (%) (Auto) 0, Neutrophils # (Auto) 6.7, Lymphocytes # (Auto) 1.6, Monocytes # (Auto) 1.1H, Eosinophils # (Auto) 0.1, Basophils # (Auto) 0.0, Immature Granulocyte # (Auto) 0.4H, Sodium Level 137, Potassium Level 3.0L, Chloride Level 107, Carbon Dioxide Level 22, Anion Gap 8, Blood Urea Nitrogen 13, Creatinine 0.62, Estimat Glomerular Filtration Rate 94, BUN/Creatinine Ratio 21, Glucose Level 78, Calcium Level 7.2L, Corrected Calcium 8.8, Total Bilirubin 1.2H, Aspartate Amino Transf (AST/SGOT) 26, Alanine Aminotransferase (ALT/SGPT) 86H, Alkaline Phosphatase 72, Total Protein 3.8L, Albumin 2.0L Microbiology 08/07/21 Gram Stain - Final, Complete 08/07/21 Sputum Culture - Final, Complete Usual upper respiratory erika YEAST Gram Negative Bacillus 1 08/06/21 Blood Culture - Preliminary, Resulted No growth Assessment/Plan Assessment/Plan Assessment/Plan Assessment Pancreatitis, possibly necrotizing pancreatitis - WBC at 9.9 - Hgb at 8.2. Stable - BUN at 13, prognostic indication Abdominal pain - Slightly tender in RLQ upon deep palpation, largely resolved AFib with RVR - Cardiology consulted. On metoprolol, diltiazem, and digoxin Bacteremia - C. perfringens Lung consolidation r/o pneumonia - Decreased breath sounds bilaterally with small pleural effusions Hypokalemia - 3.0, consider replacement Transaminitis - Largely corrected. AST and ALT 26 and 86 today. Hyperbilirubinemia - Laragely corrected. 1.2 today. Hypertriglyceridemia Plan Continue liquid diet and IV fluids. Consider diet advancement. Continue Pip/Tazo and metronidazole, monitor for leukocytosis recurrence Potassium replacement Pain control as needed h/o cholecystectomy and appendectomy PICC line placed, CXR confirmed at tip of SVC. Recent CXR had trouble visualizing location but most likely still at SVC junction. Surgery, if required, would need to be done at a tertiary care center. Patient improving with medical management. HALIMA MACIAS DO 08/11/21 1011: Subjective Subjective/Events-last exam Patient feeling better today. back pain present. Less abdominal pain. WBC down. Tolerating some diet. Denies n/v fever sweats chills cristhian rtness of breath or chest pain. Objective Exam General Appearance: No Apparent Distress, Chronically ill HEENT: PERRL/EOMI, Normal ENT Inspection Neck: Non Tender, Supple Respiratory: Chest Non Tender, No Accessory Muscle Use, No Respiratory Distress Cardiovascular: No Edema, No JVD Gastrointestinal: soft, tenderness (Slightly tender to deep palpation in the RUQ) Extremity: Normal Inspection, Non Tender, No Calf Tenderness Neurologic/Psychiatric: Alert, No Motor/Sensory Deficits, Normal Mood/Affect Skin: Normal Color, Warm/Dry Lymphatic: No Adenopathy (Head and neck) Assessment/Plan Assessment/Plan Assessment/Plan Pancreatitis, possibly necrotizing pancreatitis Abdominal pain RUQ AFib with RVR Bacteremia Lung consolidation r/o pneumonia Transaminitis Hyperbilirubinemia Hypertriglyceridemia Clinically improving, tolerating diet. Continue Zosyn/Flagyl Ct scan with gastrograffin to re-evaluate today. Supervisory-Addendum Brief Verification & Attestation Participated in pt care: history, MDM, physical Personally performed: exam, history, MDM, supervision of care Care discussed with: Medical Student Procedures: n/a Results interpretation: Verified all documentation Verification and Attestation of Medical Student E/M Service A medical student performed and documented this service in my presence. I reviewed and verified all information documented by the medical student and made modifications to such information, when appropriate. I personally performed the physical exam and medical decision making. Halima Macias, Aug 11, 2021,10:11 MAO ELLIS Aug 11, 2021 07:16 HALIMA MACIAS DO Aug 11, 2021 10:11
--- NOTE | 2021-08-11 08:14 | Progress Note ---
Subjective Subjective Date Seen by Provider: Aug 11, 2021 Time Seen by Provider: 08:00 PT IS A 76 Y/O FEMALE WHO IS KNOWN TO ME FROM CLINIC. SHE PRESENTED TO THE ER WITH ABDOMINAL PAIN, WAS DIAGNOSED WITH ACUTE PANCREATITIS - PT HAD DECLINE, DEVELOPED GROSSLY ELEVATED BILIRUBIN AT 10, DX WITH NECROTIZING PANCREATITIS, AND AFIB NOT RATE CONTROLLED, TRANSFERRED UP TO STEPDOWN UNIT. OVER THE WEEKEND, PT HAD IMPROVEMENT IN HER SYMPTOMS, DIET WAS ADVANCED, PT FEELING BETTER. TODAY SHE STATES: THAT SHE IS FEELING A LITTLE BIT BETTER. SHE REPORTS BACK PAIN SEEMS TO BE WORSE THAN HER STOMACH PAIN. SHE IS WANTING TO EAT, HAD CLEAR LIQUIDS STARTED YESTERDAY Review of Systems General: No Chills; Fatigue; No Malaise; Appetite (INCREASING) HEENT: No Head Aches, No Visual Changes Pulmonary: Dyspnea (When changing positions), Cough Cardiovascular: No: Chest Pain, Palpitations Gastrointestinal: Abdominal Pain; No: Nausea, Vomiting, Diarrhea, Constipation Genitourinary: Other (Urinary cath) Musculoskeletal: back pain; No: leg pain Neurological: No: Weakness, Confusion All Other Systems Reviewed All Other Systems Reviewed: Yes Objective Exam Vital Signs Vital Signs Date Time Temp Pulse Resp B/P (MAP) Pulse Ox O2 Delivery O2 Flow Rate FiO2 08/11/21 06:00 89 99/66 (77) 96 Nasal Cannula 2.00 08/11/21 05:00 98 107/64 (78) 96 Nasal Cannula 2.00 08/11/21 04:00 101 102/83 (89) 96 Nasal Cannula 2.00 08/11/21 04:00 36.5 08/11/21 04:00 98 Nasal Cannula 2.00 08/11/21 03:15 86 103/84 (90) 96 Nasal Cannula 2.00 08/11/21 03:00 128 89/79 (82) 96 Nasal Cannula 2.00 08/11/21 02:00 92 120/66 (84) 95 Nasal Cannula 2.00 08/11/21 01:00 106 107/67 (80) 94 Nasal Cannula 2.00 08/11/21 01:00 106 08/11/21 00:00 36.7 98 121/78 (92) 94 Nasal Cannula 2.00 08/10/21 23:59 98 Nasal Cannula 2.00 08/10/21 23:00 105 101/66 (78) 94 Nasal Cannula 2.00 08/10/21 22:00 98 120/72 (88) 95 Nasal Cannula 2.00 08/10/21 21:10 Nasal Cannula 2.00 08/10/21 21:00 130 118/66 (83) 94 Nasal Cannula 2.00 08/10/21 20:00 36.4 97 18 94/76 (82) Nasal Cannula 08/10/21 20:00 98 Nasal Cannula 2.00 08/10/21 19:00 103 08/10/21 19:00 131 121/82 (95) 96 Nasal Cannula 2.00 08/10/21 16:29 98 Nasal Cannula 2.00 08/10/21 16:00 36.6 120 15 106/70 (82) 96 Nasal Cannula 08/10/21 14:40 116 18 111/91 (98) 96 Nasal Cannula 2.00 08/10/21 14:30 111/91 (98) 08/10/21 14:00 106/68 (81) 08/10/21 13:45 114/72 (86) 08/10/21 13:30 95/70 (78) 08/10/21 13:20 113 16 83/67 (72) 96 Nasal Cannula 2.00 08/10/21 13:00 105 08/10/21 12:50 94 18 107/90 (96) 94 Nasal Cannula 2.00 08/10/21 12:35 93 25 109/85 (93) 96 Nasal Cannula 2.00 08/10/21 12:21 107 14 97/73 (81) 97 Nasal Cannula 2.00 08/10/21 12:05 115 19 107/75 (86) 96 Nasal Cannula 2.00 08/10/21 11:51 101 16 117/62 (80) 95 Nasal Cannula 2.00 08/10/21 11:45 108 16 118/61 (80) 96 Nasal Cannula 2.00 08/10/21 11:40 113/70 (84) 08/10/21 11:35 115/71 (86) 08/10/21 11:30 120/66 (84) 08/10/21 11:25 119/64 (82) 08/10/21 11:18 35.9 120 19 98/63 (75) 96 Nasal Cannula 2.00 08/10/21 11:06 98 Nasal Cannula 2.00 I & O 08/11/21 07:00 Intake Total 1420 ml Output Total 2190 ml Balance -770 ml General Appearance: No Apparent Distress, WD/WN Eyes: Bilateral Eye Normal Inspection, Bilateral Eye PERRL, Bilateral Eye EOMI HEENT: PERRL/EOMI; No Scleral Icterus (L), No Scleral Icterus (R) Neck: Normal Inspection, Non Tender, Supple; No Lymphadenopathy (L), No Lymphadenopathy (R) Respiratory: Chest Non Tender, Lungs Clear, No Respiratory Distress, Decreased Breath Sounds (B/L), Wheezing Cardiovascular: No Edema, Normal Peripheral Pulses, Irregularly Irregular, Tachycardia Gastrointestinal: Normal Bowel Sounds, Non Tender, Soft, Distended (SLIGHTLY) Rectal: Deferred Back: Normal Inspection, No Vertebral Tenderness Extremity: Normal Inspection, Non Tender, No Calf Tenderness Neurologic/Psychiatric: Alert, Oriented x3, No Motor/Sensory Deficits, Normal Mood/Affect Skin: Normal Color, Warm/Dry Results Lab Laboratory Tests 08/11/21 04:45: White Blood Count 9.9, Red Blood Count 2.57L, Hemoglobin 8.2L, Hematocrit 25L, Mean Corpuscular Volume 98, Mean Corpuscular Hemoglobin 32, Mean Corpuscular Hemoglobin Concent 32, Red Cell Distribution Width 15.6H, Platelet Count 131, Mean Platelet Volume 10.8, Immature Granulocyte % (Auto) 4, Neutrophils (%) (Auto) 68, Lymphocytes (%) (Auto) 16, Monocytes (%) (Auto) 11, Eosinophils (%) (Auto) 1, Basophils (%) (Auto) 0, Neutrophils # (Auto) 6.7, Lymphocytes # (Auto) 1.6, Monocytes # (Auto) 1.1H, Eosinophils # (Auto) 0.1, Basophils # (Auto) 0.0, Immature Granulocyte # (Auto) 0.4H, Sodium Level 137, Potassium Level 3.0L, Chloride Level 107, Carbon Dioxide Level 22, Anion Gap 8, Blood Urea Nitrogen 13, Creatinine 0.62, Estimat Glomerular Filtration Rate 94, BUN/Creatinine Ratio 21, Glucose Level 78, Calcium Level 7.2L, Corrected Calcium 8.8, Total Bilirubin 1.2H, Aspartate Amino Transf (AST/SGOT) 26, Alanine Aminotransferase (ALT/SGPT) 86H, Alkaline Phosphatase 72, Total Protein 3.8L, Albumin 2.0L Microbiology 08/07/21 Gram Stain - Final, Complete 08/07/21 Sputum Culture - Final, Complete Usual upper respiratory erika YEAST Gram Negative Bacillus 1 08/06/21 Blood Culture - Preliminary, Resulted No growth Assessment/Plan Assessment/Plan Admission Dx ACUTE PANCREATITIS EPIGASTRIC ABDOMINAL PAIN ELEVATED LIVER ENZYMES ELEVATED TRIGLYCERIDES HYPERTENSION ATRIAL FIBRILLATION - CHRONIC CHRONIC ANTICOAGULATION REFLUX Assessment and Plan ACUTE NECROTIZING PANCREATITIS SEPSIS EPIGASTRIC ABDOMINAL PAIN ELEVATED LIVER ENZYMES ELEVATED TRIGLYCERIDES HYPERTENSION ATRIAL FIBRILLATION - CHRONIC CHRONIC ANTICOAGULATION REFLUX GROGGY LACTIC ACIDOSIS SEPSIS DUE TO ACUTE NECROTIZING PANCREATITIS WITH EPIGASTRIC ABDOMINAL PAIN - CONSULT TO SURGEON - BLOOD CULTURE - CLOSTRIDIUM PERFRINGENS - PT STARTED ON ZOSYN YESTERDAY EVENING AND FLAGYL THIS MORNING (08/07/2021) - IV ROCEPHIN INITIATED ON ADMISSION - STOPPED ON 08/06/2021 EVENING AND CHANGED TO ZOSYN - REPEAT CT SCAN BELOW - SURGEON OVERVIEW WITH ADDITIONAL RADIOLOGIST IS OF NECROTIZING PANCREATITIS - ATTEMPTED TRANSFER TO [facility], UNFORTUNATELY, NO AVAILABLE BEDS WEDNESDAY TO TODAY. - CONTINUE WITH CURRENT REGIMEN, ADVANCEMENT OF DIET PER SURGEON. HYPOKALEMIA - REPLACE WITH IV SUPPLEMENTATION ELEVATED LIVER ENZYMES WITH HYPERBILIRUBINEMIA - RESOLVING - IV HYDRATION, REPEAT LABS IN MORNING. ANEMIA - SUPPORTIVE CARE, IF HGB DROPS BELOW 7 WILL TRANSFUSE ELEVATED TRIGLYCERIDES - PT ON STATIN THERAPY - WILL HOLD AT THIS TIME SINCE PT IS NPO HYPERTENSION - DEFER TO CARDIOLOGY WITH ADJUSTMENT OF MEDICATIONS FOR AFIB ATRIAL FIBRILLATION - CHRONIC - ON DIGOXIN, METOPROLOL, AMIODARONE, CARDIZEM - ALL IV - NEED TO TRANSITION TO PO MEDICATIONS CHRONIC ANTICOAGULATION - HOLD ELIQUIS, LOVENOX STOPPED DUE TO GROSS HEMATOCHEZIA REFLUX - PPI THERAPY DVT PROPHYLAXIS WITH SCD'S, LOVENOX STOPPED DUE TO GROSS HEMATOCHEZIA GI PROPHYLAXIS WITH PPI, WILL START ON PROBIOTICS WHEN ABLE TO TAKE PO FOOD/FLUIDS TOBACCOISM - PT IS REFUSING NICOTINE PATCHES WILL NEED TO LOOK AT INPT REHAB PRIOR TO DC TO HOME Admission Dx ACUTE PANCREATITIS EPIGASTRIC ABDOMINAL PAIN ELEVATED LIVER ENZYMES ELEVATED TRIGLYCERIDES HYPERTENSION ATRIAL FIBRILLATION - CHRONIC CHRONIC ANTICOAGULATION REFLUX Clinical Quality Measures Admission Status Admission Dx ACUTE PANCREATITIS EPIGASTRIC ABDOMINAL PAIN ELEVATED LIVER ENZYMES ELEVATED TRIGLYCERIDES HYPERTENSION ATRIAL FIBRILLATION - CHRONIC CHRONIC ANTICOAGULATION REFLUX REMY MCELROY MD Aug 11, 2021 08:14
[2021-08-11] MEDS: DIGOXIN 0.25 MG/ML (LANOXIN) 2 ML AMP IV SCH (08:23)
[2021-08-11] MEDS: PANTOPRAZOLE 40 MG (PROTONIX) VIAL IV SCH (08:28)
[2021-08-11] MEDS: polyethylene glycoL POWDER 17 GM (MIRALAX) PACK PO SCH ×2 (08:28→20:33)
[2021-08-11] MEDS: morphine INJ 4 MG/ML 1 ML (VIAL/SYRINGE) IVP PRN ×3 (08:48→23:07)
--- NOTE | 2021-08-11 09:15 | Cardiology Progress Note ---
Subjective Date Seen by Provider: Aug 11, 2021 Time Seen by Provider: 09:15 Subjective/Events-last exam Patient is laying down in bed. No new complain, still having fatigue, reporting improvement in abdominal pain Review of Systems General: No Chills, No Night Sweats; Fatigue, Malaise; No Appetite, No Other HEENT: No Head Aches, No Visual Changes, No Eye Pain, No Ear Pain, No Dysphasia, No Sinus Congestion, No Post Nasal Drip, No Sore Throat, No Other Pulmonary: Dyspnea; No Cough, No Pleuritic Chest Pain, No Other Cardiovascular: No: Chest Pain, Palpitations, Orthopnea, Paroxysmal Noc. Dyspnea, Edema, Lt Headedness, Other Objective-Cardiology Exam Last Set of Vital Signs Vital Signs 08/11/21 08:00 Temp 36.2 Pulse 84 Resp 20 B/P (MAP) 102/86 (91) Pulse Ox 96 O2 Delivery Nasal Cannula O2 Flow Rate 2.00 I&O Intake and Output 08/11/21 00:00 Intake Total 1420 ml Output Total 2090 ml Balance -670 ml Intake Oral 1420 ml Output Urine Total 2090 ml General: Alert, Oriented X3, Cooperative HEENT: Atraumatic, PERRLA Neck: Supple, No JVD, No Thyromegaly Lungs: Clear to Auscultation, Normal Air Movement Heart: Normal S1, Normal S2, No Murmurs, Other Abdomen: Soft, No Hepatosplenomegaly, No Masses, Other Extremities: No Clubbing, No Cyanosis, No Edema, Normal Pulses, No Tenderness/Swelling Skin: No Rashes, No Breakdown, No Significant Lesion Neuro: Normal Speech, Sensation Intact Psych/Mental Status: Mental Status NL, Mood NL Results Lab Laboratory Tests 08/11/21 04:45 A/P-Cardiology Admission Diagnosis Acute pancreatitis Atrial fibrillation Hypertension Hyperlipidemia Assessment/Plan Acute necrotizing pancreatitis with possible pseudocyst, questionable perforation. Managed by surgical team. Awaiting possible transfer to a tertiary care center. Abdominal pain secondary to above. Reporting mild improvement today Atrial fibrillation with rapid ventricular response. Has transient episode of atrial fibrillation in 2016. Heart rate is slightly better at this time. Continue on current medication and monitor Increased risk of stroke without oral anticoagulation, patient cannot tolerate aggressive anticoagulation at this time due to the necrotizing pancreatitis and increased risk of hemorrhage. History of mild coronary artery disease per cardiac catheterization done in August 2017. Last stress test was done in March 2021 showing no evidence of active ischemia. Ejection fraction 68%. Echocardiogram was done in March 2021 showing normal LV size with EF 60 to 65%, mildly dilated left atrium, mitral regurgitation, bicuspid morphology of the aortic valve, aortic valve sclerosis. Hyperlipidemia, maintained on statin. History of lobectomy done in 2016. Left lower infiltrate, possible pneumonia, managed by primary team Tobaccoism, educated on smoking cessation Electrolyte imbalance, managed by primary team Obstructive sleep apnea maintained on CPAP JAVON HUNT MD Aug 11, 2021 09:15
[2021-08-11] MEDS ORDERED: NS 100 ML (IVPB) BAG IV ONE (11:30)
[2021-08-11] MEDS ORDERED: HOLD METFORMIN - RECEIVED CONTRAST 20 ML VIAL IV SCH (11:30)
[2021-08-11] MEDS ORDERED: DIATRIZOATE MEGLUM/SODIUM 37% 120 ML (GASTROGRAFIN) PO ONE (11:30)
[2021-08-11] MEDS ORDERED: IOHEXOL 350 MG/ML 100 ML (OMNIPAQUE 350) VIAL IV ONE (11:30)
[2021-08-11] MEDS: fentaNYL INJ 100 MCG/2 ML AMP IVP PRN (12:23)
[2021-08-11] MEDS: POTASSIUM CL 10MEQ/50ML IVPB 50 ML IV SCH ×4 (12:24→15:11)
[2021-08-11] MEDS: LIDOCAINE 4% (SALONPAS) PATCH TOP SCH (12:42)
--- NOTE | 2021-08-11 16:12 | Diagnostic Imaging Report ---
PROCEDURE: CT abdomen with and without contrast. TECHNIQUE: Multiple contiguous axial CT images of the abdomen were obtained prior to and after intravenous administration of iodinated contrast. Auto Exposure Controls were utilized during the CT exam to meet ALARA standards for radiation dose reduction. INDICATION: Pancreatitis. COMPARISON: Correlation is made with prior CT from two days earlier. FINDINGS: Moderate bilateral effusions persist. Pleural effusions may be slightly greater on today's study. Compressive atelectasis in the lower lobes is again noted. The liver is stable. Gallbladder appears to be surgically absent. There continue to be peripancreatic inflammatory changes present consistent with pancreatitis. The pancreatic parenchyma does show normal enhancement without evidence of necrosis. The gas and fluid just inferior to the pancreatic body and tail appears very similar to prior exam at approximately 4.9 x 3.0 cm. No new fluid collection is identified. The spleen is unremarkable. No adrenal mass is detected. Kidneys are stable. Aorta and iliac vessels are heavily calcified but nonaneurysmal. There is some fluid-filled distention of small bowel loops in the mid and left abdomen. There is some mild distention of the colon as well. Features may be owing to ileus. The pelvis was not included on this study. There are some decompressed small bowel loops in the right abdomen and the possibility of obstruction cannot be entirely excluded. There is some edema throughout the subcutaneous tissues. IMPRESSION: 1. Mild increase in size of bilateral pleural effusions. Dependent atelectasis persists. 2. Continued findings of acute interstitial pancreatitis, similar to the study from two days earlier. The gas and fluid collection along the inferior aspect of the pancreatic body and tail is stable in size. No new fluid collection is identified. 3. Nonspecific mild distention of small and large bowel loops, perhaps ileus. Continued progress films would be recommended. Dictated by: Dictated on workstation # [id number]
[2021-08-11] MEDS ORDERED: NICOTINE 14 MG (NICODERM) PATCH TD ONE (17:00)
[2021-08-11] MEDS: PATCH REMOVAL TP SCH (20:34)
[2021-08-12] VITALS: BP 131/83
[2021-08-12] MEDS: metroNIDAZOLE 500MG/100ML IVPB 100 ML IV SCH (00:15)
[2021-08-12] MEDS: dilTIAZem DRIP PRE-MIX 125 ML IV SCH ×2 (02:03→22:33)
[2021-08-12] MEDS: PIPERACILLIN SODIUM/TAZOBACTAM 4.5 GM in NS (IVPB) 100 ML IV SCH ×3 (02:04→18:59)
[2021-08-12 03:50] VITALS: BP 131/83
[2021-08-12 04:22] LABS: BASOPHILS % (AUTO) 0 % (0-10); EOSINOPHILS # (AUTO) 0.1 10^3/uL (0.0-0.3); EOSINOPHILS % (AUTO) 1 % (0-10); HEMATOCRIT 26 % (35-52); HEMOGLOBIN 8.4 g/dL (11.5-16.0); LYMPHOCYTES # (AUTO) 1.6 10^3/uL (1.0-4.0); LYMPHOCYTES % (AUTO) 13 % (12-44); MEAN CORPUSCULAR HEMOGLOBIN 32 pg (25-34); MEAN CORPUSCULAR HGB CONC 33 g/dL (32-36); MEAN CORPUSCULAR VOLUME 98 fL (80-99); MEAN PLATELET VOLUME 10.6 fL (9.0-12.2); MONOCYTES # (AUTO) 1.6 10^3/uL (0.0-1.0); MONOCYTES % (AUTO) 13 % (0-12); NEUTROPHILS # (AUTO) 8.1 10^3/uL (1.8-7.8); NEUTROPHILS % (AUTO) 67 % (42-75); PLATELET COUNT 306 10^3/uL (130-400); WHITE BLOOD COUNT 12.1 10^3/uL (4.3-11.0)
[2021-08-12 04:35] LABS: POTASSIUM 2.9 MMOL/L (3.6-5.0)
[2021-08-12 04:36] LABS: CALCIUM 7.4 MG/DL (8.5-10.1)
[2021-08-12 04:41] LABS: CREATININE SERUM 0.57 MG/DL (0.60-1.30)
[2021-08-12 04:43] LABS: MAGNESIUM 1.6 MG/DL (1.6-2.4)
[2021-08-12] MEDS: meTOprolol 5 MG/5 ML (LOPRESSOR) VIAL IV SCH ×4 (05:06→23:43)
[2021-08-12] MEDS: LACTATED RINGERS 1,000 ML IV SCH ×3 (05:06→18:59)
--- NOTE | 2021-08-12 07:30 | Progress Note - Surgery ---
MAO ELLIS Sallie 08/12/21 0730: Subjective Date Seen by a Provider: Aug 12, 2021 Time Seen by a Provider: 07:25 Subjective/Events-last exam Ms. Arriaga is somnolent this morning with her daughter at bedside. She was able to answer all of my questions but she was not as alert as she was yesterday. She has no complaints of any abdominal pain or back pain today. She continues to be on a clear liquid diet and has been having jello and broth. She had a bowel movement yesterday that she described as loose; she denied any hematochezia. She still has a urinary catheter. She is still in AFib today with her HR around 100- 130; telemetry had a noisy signal. Review of Systems General: No Chills, No Fatigue HEENT: No Head Aches, No Visual Changes Pulmonary: Dyspnea, Cough Cardiovascular: No: Chest Pain, Palpitations Gastrointestinal: No: Nausea, Vomiting, Abdominal Pain, Hematochezia Musculoskeletal: No: back pain, leg pain Neurological: No: Weakness, Confusion Objective Exam Vital Signs Date Time Temp Pulse Resp B/P (MAP) Pulse Ox O2 Delivery O2 Flow Rate FiO2 08/12/21 05:09 95 Nasal Cannula 2.00 08/12/21 03:51 95 Nasal Cannula 2.00 08/12/21 03:50 36.2 88 18 131/83 (99) 95 Nasal Cannula 2.50 08/12/21 01:00 96 08/12/21 00:00 36.2 138 21 131/83 (99) 96 Nasal Cannula 2.50 08/11/21 23:59 98 Nasal Cannula 2.00 08/11/21 20:00 98 Nasal Cannula 2.00 08/11/21 20:00 36.3 118 19 131/76 (94) 97 Nasal Cannula 2.50 08/11/21 19:00 127 08/11/21 18:41 36.5 58 98 21 08/11/21 16:00 36.1 106 18 98/75 (83) 92 Room Air 08/11/21 16:00 98 Nasal Cannula 2.00 08/11/21 13:00 102 08/11/21 12:00 98 Nasal Cannula 2.00 08/11/21 11:52 36.4 72 20 111/64 (80) 93 Nasal Cannula 0.50 08/11/21 08:00 98 Nasal Cannula 2.00 08/11/21 08:00 36.2 84 20 102/86 (91) 96 Nasal Cannula 2.00 I & O 08/12/21 07:00 Intake Total 4585 ml Output Total 2425 ml Balance 2160 ml Capillary Refill : Less Than 3 Seconds General Appearance: No Apparent Distress, WD/WN HEENT: PERRL/EOMI, Pale Conjunctivae (L), Pale Conjunctivae (R); No Scleral Icterus (L), No Scleral Icterus (R) Neck: Normal Inspection, Non Tender, Supple; No Lymphadenopathy (L), No Lymphadenopathy (R) Respiratory: Chest Non Tender, No Respiratory Distress, Decreased Breath Sounds (B/L lower lobes), Wheezing Cardiovascular: No Edema, Normal Peripheral Pulses, Irregularly Irregular, Tachycardia Peripheral Pulses: 2+ Dorsalis Pedis (R), 2+ Left Dors-Pedis (L), 2+ Radial Pulses (R), 2+ Radial Pulses (L) Gastrointestinal: normal bowel sounds, non tender, soft; No rebound Extremity: Normal Capillary Refill, Normal Inspection, Non Tender, No Calf Tenderness, No Pedal Edema Neurologic/Psychiatric: Oriented x3, No Motor/Sensory Deficits, Normal Mood/Af fect, Other (Somnolent) Skin: Normal Color, Warm/Dry Lymphatic: No Adenopathy (Head and neck) Results Lab Laboratory Tests 08/12/21 04:08: White Blood Count 12.1H, Red Blood Count 2.63L, Hemoglobin 8.4L, Hematocrit 26L, Mean Corpuscular Volume 98, Mean Corpuscular Hemoglobin 32, Mean Corpuscular Hemoglobin Concent 33, Red Cell Distribution Width 15.8H, Platelet Count 306, Mean Platelet Volume 10.6, Immature Granulocyte % (Auto) 6, Neutrophils (%) (Auto) 67, Lymphocytes (%) (Auto) 13, Monocytes (%) (Auto) 13H, Eosinophils (%) (Auto) 1, Basophils (%) (Auto) 0, Neutrophils # (Auto) 8.1H, Lymphocytes # (Auto) 1.6, Monocytes # (Auto) 1.6H, Eosinophils # (Auto) 0.1, Basophils # (Auto) 0.0, Immature Granulocyte # (Auto) 0.7H, Sodium Level 137, Potassium Level 2.9L, Chloride Level 108H, Carbon Dioxide Level 20L, Anion Gap 9, Blood Urea Nitrogen 10, Creatinine 0.57L, Estimat Glomerular Filtration Rate 103, BUN/Creatinine Ratio 18, Glucose Level 84, Calcium Level 7.4L, Corrected Calcium 9.0, Magnesium Level 1.6, Total Bilirubin 1.0, Aspartate Amino Transf (AST/SGOT) 22, Alanine Aminotransferase (ALT/SGPT) 60H, Alkaline Phosphatase 69, Total Protein 4.0L, Albumin 2.0L Microbiology 08/07/21 Gram Stain - Final, Complete 08/07/21 Sputum Culture - Final, Complete Usual upper respiratory erika YEAST Gram Negative Bacillus 1 08/06/21 Blood Culture - Preliminary, Resulted No growth Assessment/Plan Assessment/Plan Assessment/Plan Assessment Pancreatitis, most likely acute pancreatitis - WBC at 12.1 up from 9.9. Neutrophils remain normal, monitor. - Hgb at 8.4. Stable. - BUN at 10, prognostic indication. - CT showed gas and fluid in the pancreas are stable and similar to the last CT. Abdominal pain - No pain reported today. AFib with RVR - Cardiology consulted. On metoprolol, diltiazem, and digoxin. Bacteremia - C. perfringens. Lung consolidation r/o pneumonia - Decreased breath sounds bilaterally with small pleural effusions. - Imaging yesterday showed increased size of pleural effusions. - CT also showed dependent atelectasis. Hypokalemia - Down to 2.9 despite supplementation yesterday. Transaminitis - Largely corrected. AST and ALT 22 and 60 today. Hyperbilirubinemia - Corrected at 1.0 today. Hypertriglyceridemia Plan Continue liquid diet and IV fluids. Consider diet advancement. Continue metronidazole, monitor for leukocytosis recurrence. Pip/Tazo finished. Consider further potassium supplementation. Pain control as needed. h/o cholecystectomy and appendectomy. PICC line placed, CXR confirmed at tip of SVC. Recent CXR had trouble visualizing location but most likely still at SVC junction. Surgery, if required, would need to be done at a tertiary care center. Patient improving with medical management. Daughter at bedside was very concerned about plan moving forward. She reiterated they wanted to pursue comfort care and did not want aggressive management. HALIMA MACIAS DO 08/13/21 0734: Subjective Subjective/Events-last exam No abdominal pain. Slight back pain. Tolerating clear liquids. Having liquid stools. Feeling about same as yesterday. Daughter at bedside. Ct scan reviewed no necrotizing pancreatitis, air fluid collection stable. Objective Exam General Appearance: No Apparent Distress, Chronically ill HEENT: PERRL/EOMI, Normal ENT Inspection Cardiovascular: No Edema, Irregularly Irregular, Tachycardia Gastrointestinal: non tender, soft, tenderness (minimal tenderness with deep palpation epigastric.) Extremity: Normal Inspection, Non Tender Neurologic/Psychiatric: Alert, No Motor/Sensory Deficits, Normal Mood/Affect Skin: Normal Color, Warm/Dry Lymphatic: No Adenopathy (Head and neck) Assessment/Plan Assessment/Plan Assessment/Plan Pancreatitis, most likely acute pancreatitis - WBC at 12.1 up from 9.9. Neutrophils remain normal, monitor. - Hgb at 8.4. Stable. - BUN at 10, prognostic indication. - CT showed gas and fluid in the pancreas are stable and similar to the last CT. Abdominal pain AFib with RVR Bacteremia Lung consolidation r/o pneumonia - Decreased breath sounds bilaterally with small pleural effusions. - Imaging yesterday showed increased size of pleural effusions. - CT also showed dependent atelectasis. Hypokalemia - Down to 2.9 despite supplementation yesterday. Transaminitis Hyperbilirubinemia - Corrected at 1.[address] stabel and no appearance of necrotizing pancreatitis No surgical indication at this time and clinically improving. Continue current management Supervisory-Addendum Brief Verification & Attestation Participated in pt care: history, MDM, physical Personally performed: exam, history, MDM, supervision of care Care discussed with: Medical Student Procedures: n/a Results interpretation: Verified all documentation Verification and Attestation of Medical Student E/M Service A medical student performed and documented this service in my presence. I reviewed and verified all information documented by the medical student and made modifications to such information, when appropriate. I personally performed the physical exam and medical decision making. Halima Macias, Aug 12, 2021,19:35 MAO ELLIS Aug 12, 2021 07:30 HALIMA MACIAS DO Aug 13, 2021 07:34
[2021-08-12] MEDS: polyethylene glycoL POWDER 17 GM (MIRALAX) PACK PO SCH ×2 (07:35→19:37)
[2021-08-12 07:46] VITALS: BP 121/81
--- NOTE | 2021-08-12 08:14 | Cardiology Progress Note ---
Subjective Date Seen by Provider: Aug 12, 2021 Time Seen by Provider: 08:13 Subjective/Events-last exam Patient is laying down in bed, no new complaint. Still borderline tachycardic Review of Systems General: No Chills, No Night Sweats; Fatigue, Malaise; No Appetite, No Other HEENT: No Head Aches, No Visual Changes, No Eye Pain, No Ear Pain, No Dysphasia, No Sinus Congestion, No Post Nasal Drip, No Sore Throat, No Other Pulmonary: No Dyspnea, No Cough, No Pleuritic Chest Pain, No Other Cardiovascular: No: Chest Pain, Palpitations, Orthopnea, Paroxysmal Noc. Dyspnea, Edema, Lt Headedness, Other Objective-Cardiology Exam Last Set of Vital Signs Vital Signs 08/11/21 08/12/21 08/12/21 18:41 05:09 07:46 Temp 35.8 Pulse 101 Resp 22 B/P (MAP) 121/81 (94) Pulse Ox 96 O2 Delivery Nasal Cannula O2 Flow Rate 2.00 FiO2 21 I&O Intake and Output 08/12/21 00:00 Intake Total 2860 ml Output Total 2125 ml Balance 735 ml Intake Oral 1360 ml IV Total 1500 ml Output Urine Total 2125 ml # Bowel Movements 2 General: Alert, Oriented X3, Cooperative HEENT: Atraumatic, PERRLA Neck: Supple, No JVD, No Thyromegaly Lungs: Clear to Auscultation, Normal Air Movement Heart: Normal S1, Normal S2, No Murmurs, Other Abdomen: Soft, No Hepatosplenomegaly, No Masses, Other Extremities: No Clubbing, No Cyanosis, No Edema, Normal Pulses, No Tenderness/Swelling Skin: No Rashes, No Breakdown, No Significant Lesion Neuro: Normal Speech, Sensation Intact Psych/Mental Status: Mental Status NL, Mood NL Results Lab Laboratory Tests 08/12/21 04:08 A/P-Cardiology Admission Diagnosis Acute pancreatitis Atrial fibrillation Hypertension Hyperlipidemia Assessment/Plan Acute necrotizing pancreatitis with possible pseudocyst, questionable perforation. Managed by surgical team. Awaiting possible transfer to a tertiary care center. Abdominal pain secondary to above. Reporting mild improvement today Hypokalemia, followed and managed by primary care team Atrial fibrillation with rapid ventricular response. Has transient episode of atrial fibrillation in 2017. Heart rate is slightly better at this time. Continue on current medication and monitor Increased risk of stroke without oral anticoagulation, patient cannot tolerate aggressive anticoagulation at this time due to the necrotizing pancreatitis and increased risk of hemorrhage. History of mild coronary artery disease per cardiac catheterization done in August 2017. Last stress test was done in March 2021 showing no evidence of active ischemia. Ejection fraction 68%. Echocardiogram was done in March 2021 showing normal LV size with EF 60 to 65%, mildly dilated left atrium, mitral regurgitation, bicuspid morphology of the aortic valve, aortic valve sclerosis. Hyperlipidemia, maintained on statin. History of lobectomy done in 2016. Left lower infiltrate, possible pneumonia, managed by primary team Tobaccoism, educated on smoking cessation Electrolyte imbalance, managed by primary team Obstructive sleep apnea maintained on CPAP JAVON HUNT MD Aug 12, 2021 08:14
--- NOTE | 2021-08-12 08:52 | Progress Note ---
Subjective Subjective Date Seen by Provider: Aug 12, 2021 Time Seen by Provider: 08:50 PT IS A 76 Y/O FEMALE WHO IS KNOWN TO ME FROM CLINIC. SHE PRESENTED TO THE ER WITH ABDOMINAL PAIN, WAS DIAGNOSED WITH ACUTE PANCREATITIS - PT HAD DECLINE, DEVELOPED GROSSLY ELEVATED BILIRUBIN AT 10, DX WITH NECROTIZING PANCREATITIS, AND AFIB NOT RATE CONTROLLED, TRANSFERRED UP TO STEPDOWN UNIT. PTS SON - ILAN - CALLED THIS PROVIDER AND DISCUSSED THAT HE IS CONFUSED TO THE FINAL PLAN - HE UNDERSTANDS THAT THERE HAVE BEEN OVER 100 HOSPITALS CALLED WITH NO ONE ACCEPTING PATIENTS. Review of Systems General: No Chills, No Night Sweats; Fatigue, Malaise; No Appetite, No Other HEENT: No Head Aches, No Visual Changes, No Eye Pain, No Ear Pain, No Dysphasia, No Sinus Congestion, No Post Nasal Drip, No Sore Throat, No Other Pulmonary: No Dyspnea, No Cough, No Pleuritic Chest Pain, No Other Cardiovascular: No: Chest Pain, Palpitations, Orthopnea, Paroxysmal Noc. Dyspnea, Edema, Lt Headedness, Other Gastrointestinal: No: Nausea, Vomiting, Abdominal Pain, Hematochezia Genitourinary: Other (Urinary cath) Musculoskeletal: No: back pain, leg pain Neurological: No: Weakness, Confusion All Other Systems Reviewed All Other Systems Reviewed: Yes Objective Exam Vital Signs Vital Signs Date Time Temp Pulse Resp B/P (MAP) Pulse Ox O2 Delivery O2 Flow Rate FiO2 08/12/21 07:46 35.8 101 22 121/81 (94) 96 Nasal Cannula 08/12/21 07:00 110 08/12/21 05:09 95 Nasal Cannula 2.00 08/12/21 03:51 95 Nasal Cannula 2.00 08/12/21 03:50 36.2 88 18 131/83 (99) 95 Nasal Cannula 2.50 08/12/21 01:00 96 08/12/21 00:00 36.2 138 21 131/83 (99) 96 Nasal Cannula 2.50 08/11/21 23:59 98 Nasal Cannula 2.00 08/11/21 20:00 98 Nasal Cannula 2.00 08/11/21 20:00 36.3 118 19 131/76 (94) 97 Nasal Cannula 2.50 08/11/21 19:00 127 08/11/21 18:41 36.5 58 98 21 08/11/21 16:00 36.1 106 18 98/75 (83) 92 Room Air 08/11/21 16:00 98 Nasal Cannula 2.00 08/11/21 13:00 102 08/11/21 12:00 98 Nasal Cannula 2.00 08/11/21 11:52 36.4 72 20 111/64 (80) 93 Nasal Cannula 0.50 I & O 08/12/21 07:00 Intake Total 4585 ml Output Total 2425 ml Balance 2160 ml General Appearance: No Apparent Distress, WD/WN Eyes: Bilateral Eye Normal Inspection, Bilateral Eye PERRL, Bilateral Eye EOMI HEENT: PERRL/EOMI, Pale Conjunctivae (L), Pale Conjunctivae (R); No Scleral Icterus (L), No Scleral Icterus (R) Neck: Normal Inspection, Non Tender, Supple; No Lymphadenopathy (L), No Lymphadenopathy (R) Respiratory: Chest Non Tender, No Respiratory Distress, Decreased Breath Sounds (B/L lower lobes), Wheezing Cardiovascular: No Edema, Normal Peripheral Pulses, Irregularly Irregular, Tachycardia Gastrointestinal: Normal Bowel Sounds, Non Tender, Soft, Distended (SLIGHTLY) Rectal: Deferred Back: Normal Inspection, No Vertebral Tenderness Extremity: Normal Capillary Refill, Normal Inspection, Non Tender, No Calf Tenderness, No Pedal Edema Neurologic/Psychiatric: Oriented x3, No Motor/Sensory Deficits, Normal Mood/Affect, Other (Somnolent) Skin: Normal Color, Warm/Dry Lymphatic: No Adenopathy (Head and neck) Results Lab Laboratory Tests 08/12/21 04:08: White Blood Count 12.1H, Red Blood Count 2.63L, Hemoglobin 8.4L, Hematocrit 26L, Mean Corpuscular Volume 98, Mean Corpuscular Hemoglobin 32, Mean Corpuscular Hemoglobin Concent 33, Red Cell Distribution Width 15.8H, Platelet Count 306, Mean Platelet Volume 10.6, Immature Granulocyte % (Auto) 6, Neutrophils (%) (Auto) 67, Lymphocytes (%) (Auto) 13, Monocytes (%) (Auto) 13H, Eosinophils (%) (Auto) 1, Basophils (%) (Auto) 0, Neutrophils # (Auto) 8.1H, Lymphocytes # (Auto) 1.6, Monocytes # (Auto) 1.6H, Eosinophils # (Auto) 0.1, Basophils # (Auto) 0.0, Immature Granulocyte # (Auto) 0.7H, Sodium Level 137, Potassium Level 2.9L, Chloride Level 108H, Carbon Dioxide Level 20L, Anion Gap 9, Blood Urea Nitrogen 10, Creatinine 0.57L, Estimat Glomerular Filtration Rate 103, BUN/Creatinine Ratio 18, Glucose Level 84, Calcium Level 7.4L, Corrected Calcium 9.0, Magnesium Level 1.6, Total Bilirubin 1.0, Aspartate Amino Transf (AST/SGOT) 22, Alanine Aminotransferase (ALT/SGPT) 60H, Alkaline Phosphatase 69, Total Protein 4.0L, Albumin 2.0L Microbiology 08/07/21 Gram Stain - Final, Complete 08/07/21 Sputum Culture - Final, Complete Usual upper respiratory erika YEAST Gram Negative Bacillus 1 08/06/21 Blood Culture - Preliminary, Resulted No growth Assessment/Plan Assessment/Plan Admission Dx ACUTE PANCREATITIS EPIGASTRIC ABDOMINAL PAIN ELEVATED LIVER ENZYMES ELEVATED TRIGLYCERIDES HYPERTENSION ATRIAL FIBRILLATION - CHRONIC CHRONIC ANTICOAGULATION REFLUX Assessment and Plan ACUTE NECROTIZING PANCREATITIS SEPSIS EPIGASTRIC ABDOMINAL PAIN ELEVATED LIVER ENZYMES ELEVATED TRIGLYCERIDES HYPERTENSION ATRIAL FIBRILLATION - CHRONIC CHRONIC ANTICOAGULATION REFLUX GROGGY LACTIC ACIDOSIS SEPSIS DUE TO ACUTE NECROTIZING PANCREATITIS WITH EPIGASTRIC ABDOMINAL PAIN - CONSULT TO SURGEON - BLOOD CULTURE - CLOSTRIDIUM PERFRINGENS - PT STARTED ON ZOSYN YESTERDAY EVENING AND FLAGYL THIS MORNING (08/07/2021) - IV ROCEPHIN INITIATED ON ADMISSION - STOPPED ON 08/06/2021 EVENING AND CHANGED TO ZOSYN - REPEAT CT SCAN BELOW - SURGEON OVERVIEW WITH ADDITIONAL RADIOLOGIST IS OF NECROTIZING PANCREATITIS - ATTEMPTED TRANSFER TO [facility]IARY [facility]ARE C[facility], UNFORTUNATELY, NO AVAILABLE BEDS WEDNESDAY TO TODAY. - CONTINUE WITH CURRENT REGIMEN, ADVANCEMENT OF DIET PER SURGEON. HYPOKALEMIA - REPLACE WITH IV SUPPLEMENTATION ELEVATED LIVER ENZYMES WITH HYPERBILIRUBINEMIA - RESOLVING - IV HYDRATION, REPEAT LABS IN MORNING. ANEMIA - SUPPORTIVE CARE, IF HGB DROPS BELOW 7 WILL TRANSFUSE ELEVATED TRIGLYCERIDES -HOLDING ANTILIPEMIC MEDICATIONS AT THIS TIME HYPERTENSION - DEFER TO CARDIOLOGY WITH ADJUSTMENT OF MEDICATIONS FOR AFIB ATRIAL FIBRILLATION - CHRONIC - ON RATE CONTROLLING MEDICATIONS DEFER TO CARDIOLOGY CHRONIC ANTICOAGULATION - HOLD ELIQUIS, LOVENOX STOPPED DUE TO GROSS HEMATOCHEZIA REFLUX - PPI THERAPY DVT PROPHYLAXIS WITH SCD'S, LOVENOX STOPPED DUE TO GROSS HEMATOCHEZIA GI PROPHYLAXIS WITH PPI, WILL START ON PROBIOTICS WHEN ABLE TO TAKE PO FOOD/FLUIDS TOBACCOISM - PT IS REFUSING NICOTINE PATCHES WILL NEED TO LOOK AT INPT REHAB PRIOR TO DC TO HOME Admission Dx ACUTE PANCREATITIS EPIGASTRIC ABDOMINAL PAIN ELEVATED LIVER ENZYMES ELEVATED TRIGLYCERIDES HYPERTENSION ATRIAL FIBRILLATION - CHRONIC CHRONIC ANTICOAGULATION REFLUX Clinical Quality Measures Admission Status Admission Dx ACUTE PANCREATITIS EPIGASTRIC ABDOMINAL PAIN ELEVATED LIVER ENZYMES ELEVATED TRIGLYCERIDES HYPERTENSION ATRIAL FIBRILLATION - CHRONIC CHRONIC ANTICOAGULATION REFLUX REMY MCELROY MD Aug 12, 2021 08:52
[2021-08-12] MEDS: NICOTINE PATCH REMOVAL TP SCH (08:59)
[2021-08-12] MEDS: LIDOCAINE 4% (SALONPAS) PATCH TOP SCH (09:00)
[2021-08-12] MEDS: NICOTINE 14 MG (NICODERM) PATCH TD SCH (09:00)
[2021-08-12] MEDS: MAGNESIUM 1 GM/100 ML IVPB 100 ML IV SCH ×2 (09:25→10:37)
[2021-08-12] MEDS: PANTOPRAZOLE 40 MG (PROTONIX) VIAL IV SCH (09:25)
[2021-08-12] MEDS: DIGOXIN 0.25 MG/ML (LANOXIN) 2 ML AMP IV SCH (09:25)
[2021-08-12] MEDS: POTASSIUM CL 10MEQ/50ML IVPB 50 ML IV SCH ×4 (09:25→12:36)
[2021-08-12] MEDS: RT-ALBUTEROL/IPRATROPIUM 3 ML (DUONEB) VIAL INH PRN (10:32)
[2021-08-12] MEDS: morphine INJ 4 MG/ML 1 ML (VIAL/SYRINGE) IVP PRN (10:37)
[2021-08-12 11:37] VITALS: BP 106/69
[2021-08-12 15:36] VITALS: BP 115/83
[2021-08-12 19:35] VITALS: BP 119/88
[2021-08-12] MEDS: PATCH REMOVAL TP SCH (20:01)
[2021-08-12] MEDS: fentaNYL INJ 100 MCG/2 ML AMP IVP PRN (20:07)
[2021-08-13] VITALS: BP 123/96
[2021-08-13] MEDS: PIPERACILLIN SODIUM/TAZOBACTAM 4.5 GM in NS (IVPB) 100 ML IV SCH ×3 (03:27→18:26)
[2021-08-13 04:00] VITALS: BP 109/65
[2021-08-13 04:34] LABS: BASOPHILS # (AUTO) 0.1 10^3/uL (0.0-0.1); BASOPHILS % (AUTO) 0 % (0-10); EOSINOPHILS # (AUTO) 0.1 10^3/uL (0.0-0.3); EOSINOPHILS % (AUTO) 1 % (0-10); HEMATOCRIT 25 % (35-52); HEMOGLOBIN 8.2 g/dL (11.5-16.0); LYMPHOCYTES # (AUTO) 1.6 10^3/uL (1.0-4.0); LYMPHOCYTES % (AUTO) 13 % (12-44); MEAN CORPUSCULAR HEMOGLOBIN 32 pg (25-34); MEAN CORPUSCULAR HGB CONC 32 g/dL (32-36); MEAN CORPUSCULAR VOLUME 98 fL (80-99); MEAN PLATELET VOLUME 10.1 fL (9.0-12.2); MONOCYTES # (AUTO) 1.4 10^3/uL (0.0-1.0); MONOCYTES % (AUTO) 11 % (0-12); NEUTROPHILS # (AUTO) 8.3 10^3/uL (1.8-7.8); NEUTROPHILS % (AUTO) 68 % (42-75); PLATELET COUNT 422 10^3/uL (130-400); WHITE BLOOD COUNT 12.1 10^3/uL (4.3-11.0)
[2021-08-13 04:44] LABS: POTASSIUM 2.9 MMOL/L (3.6-5.0)
[2021-08-13 04:46] LABS: CALCIUM 7.2 MG/DL (8.5-10.1)
[2021-08-13 04:47] LABS: TOTAL PROTEIN 4.2 GM/DL (6.4-8.2)
[2021-08-13 04:49] LABS: BILIRUBIN,TOTAL 0.9 MG/DL (0.1-1.0)
[2021-08-13 04:50] LABS: CREATININE SERUM 0.54 MG/DL (0.60-1.30)
[2021-08-13] MEDS: meTOprolol 5 MG/5 ML (LOPRESSOR) VIAL IV SCH ×3 (06:40→17:52)
--- NOTE | 2021-08-13 07:21 | Progress Note - Surgery ---
MAO ELLIS 08/13/21 0720: Subjective Date Seen by a Provider: Aug 13, 2021 Time Seen by a Provider: 07:14 Subjective/Events-last exam Ms. Arriaga was laying in bed and was alert and oriented when I spoke with her this morning. Her daughter accompanied her at bedside. Patient is doing well thi s morning and denies any nausea, vomiting, or abdominal pain. She does report continued back pain but says that is a chronic issue. She is still on a clear liquid diet. She had a bowel movement yesterday but reports it was more formed than before. She is still in AFib this morning with heart rate between 90-130. She is improving well with medical management. Review of Systems General: No Chills, No Fatigue HEENT: No Head Aches, No Visual Changes Pulmonary: Dyspnea, Cough Cardiovascular: No: Chest Pain, Palpitations Gastrointestinal: No: Nausea, Vomiting, Abdominal Pain, Diarrhea Musculoskeletal: back pain; No: leg pain Neurological: No: Weakness, Confusion Objective Exam Vital Signs Date Time Temp Pulse Resp B/P (MAP) Pulse Ox O2 Delivery O2 Flow Rate FiO2 08/13/21 04:00 36.5 119 20 109/65 (80) 97 Nasal Cannula 2.00 08/13/21 01:00 109 08/13/21 00:00 36.3 105 22 123/96 (105) 97 Nasal Cannula 2.00 08/12/21 20:05 Nasal Cannula 2.50 08/12/21 19:35 36.5 104 21 119/88 (98) 98 Nasal Cannula 2.00 08/12/21 19:00 130 08/12/21 15:36 36.4 113 20 115/83 (94) 96 Nasal Cannula 2.00 08/12/21 12:00 97 Nasal Cannula 2.00 08/12/21 11:37 36.1 102 21 106/69 (81) 97 Nasal Cannula 08/12/21 10:33 94 Nasal Cannula 2.00 08/12/21 08:00 Nasal Cannula 2.50 08/12/21 07:46 35.8 101 22 121/81 (94) 96 Nasal Cannula I & O 08/13/21 07:00 Intake Total 1675 ml Output Total 2425 ml Balance -750 ml Capillary Refill : Less Than 3 Seconds General Appearance: No Apparent Distress, WD/WN HEENT: PERRL/EOMI, Pale Conjunctivae (L), Pale Conjunctivae (R); No Scleral Icterus (L), No Scleral Icterus (R) Neck: Normal Inspection, Non Tender, Supple; No Lymphadenopathy (L), No Lymphadenopathy (R) Respiratory: Chest Non Tender, No Respiratory Distress, Crackles (B/L), Decreas ed Breath Sounds (B/L lower lobes) Cardiovascular: No Edema, Normal Peripheral Pulses, Irregularly Irregular, Tachycardia Peripheral Pulses: 2+ Dorsalis Pedis (R), 2+ Left Dors-Pedis (L), 2+ Radial Pulses (R), 2+ Radial Pulses (L) Gastrointestinal: normal bowel sounds, non tender, soft; No distended, No rebound Extremity: Normal Capillary Refill, Normal Inspection, Non Tender, No Calf Tenderness, No Pedal Edema Neurologic/Psychiatric: Alert, Oriented x3, No Motor/Sensory Deficits, Normal Mood/Affect Skin: Normal Color, Warm/Dry Lymphatic: No Adenopathy (Head and neck) Results Lab Laboratory Tests 08/13/21 04:20: White Blood Count 12.1H, Red Blood Count 2.58L, Hemoglobin 8.2L, Hematocrit 25L, Mean Corpuscular Volume 98, Mean Corpuscular Hemoglobin 32, Mean Corpuscular Hemoglobin Concent 32, Red Cell Distribution Width 15.7H, Platelet Count 422H, Mean Platelet Volume 10.1, Immature Granulocyte % (Auto) 7, Neutrophils (%) (Auto) 68, Lymphocytes (%) (Auto) 13, Monocytes (%) (Auto) 11, Eosinophils (%) (Auto) 1, Basophils (%) (Auto) 0, Neutrophils # (Auto) 8.3H, Lymphocytes # (Auto) 1.6, Monocytes # (Auto) 1.4H, Eosinophils # (Auto) 0.1, Basophils # (Auto) 0.1, Immature Granulocyte # (Auto) 0.8H, Sodium Level 136, Potassium Level 2.9L, Chloride Level 106, Carbon Dioxide Level 20L, Anion Gap 10, Blood Urea Nitrogen 7, Creatinine 0.54L, Estimat Glomerular Filtration Rate 110, BUN/Creatinine Ratio 13, Glucose Level 113H, Calcium Level 7.2L, Corrected Calcium 8.8, Total Bilirubin 0.9, Aspartate Amino Transf (AST/SGOT) 22, Alanine Aminotransferase (ALT/SGPT) 46, Alkaline Phosphatase 64, Total Protein 4.2L, Albumin 2.0L Microbiology 08/07/21 Gram Stain - Final, Complete 08/07/21 Sputum Culture - Final, Complete Usual upper respiratory erika YEAST Gram Negative Bacillus 1 08/06/21 Blood Culture - Final, Complete No growth Assessment/Plan Assessment/Plan Assessment/Plan Assessment Pancreatitis, most likely acute pancreatitis - WBC at 12.1, stable from yesterday. Neutrophils remain normal, monitor. - Hgb at 8.2. Stable. - BUN at 7. Good prognostic indication. - CT showed gas and fluid in the pancreas are stable and similar to the last CT. Abdominal pain - No pain reported today. AFib with RVR - Cardiology consulted. On metoprolol, diltiazem, and digoxin. Bacteremia - C. perfringens. Lung consolidation r/o pneumonia - Decreased breath sounds bilaterally in lower lobes with small pleural effusions. - Imaging yesterday showed increased size of pleural effusions. - CT also showed dependent atelectasis. Hypokalemia - Down to 2.9 despite supplementation. Continue to monitor. Transaminitis - Resolved. AST and ALT 22 and 46. Hyperbilirubinemia - Resolved. 0.9 today. Hypertriglyceridemia Plan Continue liquid diet and IV fluids. Consider diet advancement to soft diet today. Continue metronidazole and Pip/Tazo, monitor for leukocytosis recurrence. Consider further potassium supplementation. Pain control as needed. h/o cholecystectomy and appendectomy. PICC line placed, CXR confirmed at tip of SVC. Recent CXR had trouble visualizing location but most likely still at SVC junction. Surgery, if required, would need to be done at a tertiary care center. Patient improving with medical management. Daughter at bedside again this morning states she is more informed about the plan. Dr. Macias called patient's son, Marc, and gave him an update yesterday afternoon. The plan is to still continue with medical management; surgery is not indicated at this time. HALIMA MACIAS DO 08/13/211827: Subjective Subjective/Events-last exam No abdominal pain. Some back pain. Tolerating clears. Denies n/v fever sweats chills shortness of breath or chest pain. Objective Exam General Appearance: No Apparent Distress, Chronically ill HEENT: PERRL/EOMI, Normal ENT Inspection Neck: Normal Inspection Respiratory: Chest Non Tender, No Respiratory Distress Cardiovascular: No JVD, Irregularly Irregular Gastrointestinal: soft; No distended, No tenderness Extremity: Normal Inspection, Non Tender Neurologic/Psychiatric: Alert, Oriented x3 Skin: Normal Color, Warm/Dry Lymphatic: No Adenopathy (Head and neck) Assessment/Plan Assessment/Plan Assessment/Plan acute pancreatitis currently last ct scan with air fluid collection stable without evidence of necrotizing pancreatitis abdominal epigastric pain- improved back pain secondary to pancreatitis afib electrolytes-replace tolerating clears can advance as long as patient without abd pain no surgical intervention unless pancreas becomes necrotic Supervisory-Addendum Brief Verification & Attestation Participated in pt care: history, MDM, physical Personally performed: exam, history, MDM, supervision of care Care discussed with: Medical Student Procedures: n/a Results interpretation: Verified all documentation Verification and Attestation of Medical Student E/M Service A medical student performed and documented this service in my presence. I reviewed and verified all information documented by the medical student and made modifications to such information, when appropriate. I personally performed the physical exam and medical decision making. Halima Macias, Aug 13, 2021,18:28 MAO ELLIS Aug 13, 2021 07:20 HALIMA MACIAS DO Aug 13, 2021 18:28
[2021-08-13] MEDS: DIGOXIN 0.25 MG/ML (LANOXIN) 2 ML AMP IV SCH (08:05)
[2021-08-13] MEDS: PANTOPRAZOLE 40 MG (PROTONIX) VIAL IV SCH (08:06)
[2021-08-13] MEDS: NICOTINE PATCH REMOVAL TP SCH (08:18)
[2021-08-13] MEDS: NICOTINE 14 MG (NICODERM) PATCH TD SCH (08:20)
[2021-08-13] MEDS: LIDOCAINE 4% (SALONPAS) PATCH TOP SCH (08:20)
[2021-08-13] MEDS: polyethylene glycoL POWDER 17 GM (MIRALAX) PACK PO SCH ×2 (08:20→21:50)
[2021-08-13] MEDS ORDERED: MAGNESIUM 1 GM/100 ML IVPB 100 ML IV ONE (09:00)
--- NOTE | 2021-08-13 09:09 | Progress Note - Cardiology ---
Cardiology SOAP Progress Note Objective: I&O/Vital Signs 08/13/21 08/13/21 08/13/21 08/13/21 04:00 07:00 08:00 13:00 Temp 36.5 36.4 Pulse 119 137 88 Resp 20 B/P (MAP) 109/65 (80) Pulse Ox 97 O2 Delivery Nasal Cannula O2 Flow Rate 2.00 08/13/21 00:00 Intake Total 1375 ml Output Total 1425 ml Balance -50 ml Weight (Pounds): 186 Weight (Ounces): 9.6 Weight (Calculated Kilograms): 84.490868 Constitutional: AAO x 3 Respiratory: No accessory muscle use, No respiratory distress; chest expansion is symmetric, chest is bilaterally symmetric Cardiovascular: irregularly irregular Neurologic/Psychiatric: grossly intact (moves all extremities) Skin: No rash on exposed areas, No ulcerations on exposed areas Results/Procedures: Labs Laboratory Tests 08/13/21 04:20: White Blood Count 12.1H, Red Blood Count 2.58L, Hemoglobin 8.2L, Hematocrit 25L, Mean Corpuscular Volume 98, Mean Corpuscular Hemoglobin 32, Mean Corpuscular Hemoglobin Concent 32, Red Cell Distribution Width 15.7H, Platelet Count 422H, Mean Platelet Volume 10.1, Immature Granulocyte % (Auto) 7, Neutrophils (%) (Auto) 68, Lymphocytes (%) (Auto) 13, Monocytes (%) (Auto) 11, Eosinophils (%) (Auto) 1, Basophils (%) (Auto) 0, Neutrophils # (Auto) 8.3H, Lymphocytes # (Auto) 1.6, Monocytes # (Auto) 1.4H, Eosinophils # (Auto) 0.1, Basophils # (Auto) 0.1, Immature Granulocyte # (Auto) 0.8H, Sodium Level 136, Potassium Level 2.9L, Chloride Level 106, Carbon Dioxide Level 20L, Anion Gap 10, Blood Urea Nitrogen 7, Creatinine 0.54L, Estimat Glomerular Filtration Rate 110, BUN/Creatinine Ratio 13, Glucose Level 113H, Calcium Level 7.2L, Corrected Calcium 8.8, Total Bilirubin 0.9, Aspartate Amino Transf (AST/SGOT) 22, Alanine Aminotransferase (ALT/SGPT) 46, Alkaline Phosphatase 64, Total Protein 4.2L, Albumin 2.0L Microbiology 08/07/21 Gram Stain - Final, Complete 08/07/21 Sputum Culture - Final, Complete Usual upper respiratory erika YEAST Gram Negative Bacillus 1 08/06/21 Blood Culture - Final, Complete No growth A/P: Assessment: Acute necrotizing pancreatitis with possible pseudocyst, questionable perforation - Managed by surgery/medical services - Awaiting possible transfer to a tertiary care center - management per medical services Abdominal pain - secondary to above Hypokalemia - replace PAF - Atrial fibrillation with rapid ventricular response. - OAC currently being withheld - resume JONNIE d/t risk of CVA when deemed safe per medical/surgical services CAD - Mild coronary artery disease per cardiac catheterization done in August 2017. - Last stress test was done in March 2021 showing no evidence of active ischemia. Ejection fraction 68%. - Echocardiogram was done in March 2021 showing normal LV size with EF 60 to 65%, mildly dilated left atrium, mitral regurgitation, bicuspid morphology of the aortic valve, aortic valve sclerosis. Hyperlipidemia - statin tx - managed by PCP Tobaccoism - cessation advised Obstructive sleep apnea - CPAP txFam h/o Surgical hx - H/o cholecystectomy, appendectomy and two groin hernia surgeries Carotid arterial disease - Carotid u/s of 03/10/21 showed 60 -79% R ICA and less than 40% L ICA stenosis L pulm mass removal on 06/16/17 at [facility] - (neuroendocrine carcinoma), being followed by [facility] Plan: Management of necrotizing pancreatitis per surgical/medical services A-fib with fair rate control - change IV Cardizem to oral starting today; continue IV Dig Replace electrolytes OAC currently being held d/t risk of bleeding - advise resumption as soon as deemed safe per surgical/medical services Monitor lab closely Records from Dr. Poole have been reviewed in detail We have discussed plan of care with Dr. Gonzalez this morning HEIDI ANAYA Aug 13, 2021 09:09
[2021-08-13] MEDS: LACTATED RINGERS 1,000 ML IV SCH ×2 (10:07→15:46)
[2021-08-13] MEDS: POTASSIUM CL 10MEQ/50ML IVPB 50 ML IV SCH ×4 (10:08→13:41)
--- NOTE | 2021-08-13 11:17 | Progress Note - Cardiology ---
Cardiology SOAP Progress Note Subjective: Abd pain much improved No cp or palp or syncope Gen malaise present No n/v/d Objective: I&O/Vital Signs 08/13/21 08/13/21 08/13/21 08/13/21 00:00 01:00 04:00 07:00 Temp 36.3 36.5 Pulse 105 109 119 137 Resp 22 20 B/P (MAP) 123/96 (105) 109/65 (80) Pulse Ox 97 97 O2 Delivery Nasal Cannula Nasal Cannula O2 Flow Rate 2.00 2.00 08/13/21 08:00 Temp 36.4 08/13/21 00:00 Intake Total 1375 ml Output Total 1425 ml Balance -50 ml Weight (Pounds): 186 Weight (Ounces): 9.6 Weight (Calculated Kilograms): 84.520390 Constitutional: AAO x 3 Respiratory: No accessory muscle use, No respiratory distress; chest expansion is symmetric, chest is bilaterally symmetric Cardiovascular: irregularly irregular Gastrointestional: tender, audible bowel sounds Extremities: No swelling, No cyanosis, No significant edema Neurologic/Psychiatric: other (moves all her limbs equally) Skin: No rash on exposed areas, No ulcerations on exposed areas Results/Procedures: Labs Laboratory Tests 08/13/21 04:20: White Blood Count 12.1H, Red Blood Count 2.58L, Hemoglobin 8.2L, Hematocrit 25L, Mean Corpuscular Volume 98, Mean Corpuscular Hemoglobin 32, Mean Corpuscular Hemoglobin Concent 32, Red Cell Distribution Width 15.7H, Platelet Count 422H, Mean Platelet Volume 10.1, Immature Granulocyte % (Auto) 7, Neutrophils (%) (Auto) 68, Lymphocytes (%) (Auto) 13, Monocytes (%) (Auto) 11, Eosinophils (%) (Auto) 1, Basophils (%) (Auto) 0, Neutrophils # (Auto) 8.3H, Lymphocytes # (A uto) 1.6, Monocytes # (Auto) 1.4H, Eosinophils # (Auto) 0.1, Basophils # (Auto) 0.1, Immature Granulocyte # (Auto) 0.8H, Sodium Level 136, Potassium Level 2.9L, Chloride Level 106, Carbon Dioxide Level 20L, Anion Gap 10, Blood Urea Nitrogen 7, Creatinine 0.54L, Estimat Glomerular Filtration Rate 110, BUN/Creatinine Ratio 13, Glucose Level 113H, Calcium Level 7.2L, Corrected Calcium 8.8, Total Bilirubin 0.9, Aspartate Amino Transf (AST/SGOT) 22, Alanine Aminotransferase (ALT/SGPT) 46, Alkaline Phosphatase 64, Total Protein 4.2L, Albumin 2.0L Microbiology 08/07/21 Gram Stain - Final, Complete 08/07/21 Sputum Culture - Final, Complete Usual upper respiratory erika YEAST Gram Negative Bacillus 1 08/06/21 Blood Culture - Final, Complete No growth Laboratory Tests 08/12/21 04:08 08/13/21 04:20 A/P: Assessment: Acute necrotizing pancreatitis with possible pseudocyst, questionable perforation - Managed by surgery/medical services - Awaiting possible transfer to a tertiary care center - management per medical services Abdominal pain - secondary to above Hypokalemia PAF - Atrial fibrillation with rapid ventricular response. - OAC currently being withheld - resume JONNIE d/t risk of CVA when deemed safe per medical/surgical services CAD - Mild coronary artery disease per cardiac catheterization done in August 2017. - Last stress test was done in March 2021 showing no evidence of active ischemia. Ejection fraction 68%. - Echocardiogram was done in March 2021 showing normal LV size with EF 60 to 65%, mildly dilated left atrium, mitral regurgitation, bicuspid morphology of the aortic valve, aortic valve sclerosis. Hyperlipidemia - statin tx - managed by PCP Tobaccoism - cessation advised Obstructive sleep apnea - CPAP txFam h/o Surgical hx - H/o cholecystectomy, appendectomy and two groin hernia surgeries Carotid arterial disease - Carotid u/s of 03/10/21 showed 60 -79% R ICA and less than 40% L ICA stenosis L pulm mass removal on 06/16/[address] [facility] - (neuroendocrine carcinoma), being followed by [facility] Plan: I interviewed and examined her, reviewed her hosp records, and discussed her case with Dr Gonzalez and Dr Poole Management of necrotizing pancreatitis per Surgical/Medical services A-fib with fair rate control - change IV Cardizem to oral starting today; continue IV Dig Replace electrolytes OAC currently being held d/t risk of bleeding - advise resumption as soon as deemed safe per Surgical/Medical services Monitor lab closely [facility] FORTE [facility] CCDS Aug 13, 2021 11:17
--- NOTE | 2021-08-13 13:46 | Diagnostic Imaging Report ---
INDICATION: Check PICC line placement. EXAMINATION: Chest 08/13/2021 COMPARISON: 08/10/2021 FINDINGS: 2 views of the event of single view chest demonstrates a right-sided PICC line with the tip at the junction of the SVC and right atrium. The heart is stable in size. The pulmonary vasculature appear more congested than on previous imaging. There are increasing bibasilar infiltrates with infiltrate throughout the right upper lung. A small left effusion is not excluded. There is no pneumothorax. IMPRESSION: 1. PICC line as above 2. Worsening bilateral infiltrates. Dictated by: Dictated on workstation # [id number]
[2021-08-13 15:33] VITALS: BP 108/54
[2021-08-13] MEDS: RT-ALBUTEROL/IPRATROPIUM 3 ML (DUONEB) VIAL INH PRN (15:33)
[2021-08-13] MEDS ORDERED: RT-ALBUTEROL/IPRATROPIUM 3 ML (DUONEB) VIAL INH PRN (15:45)
[2021-08-13 16:00] VITALS: BP 108/54
[2021-08-13] MEDS: RT-ALBUTEROL/IPRATROPIUM 3 ML (DUONEB) VIAL INH SCH ×2 (18:59→22:25)
[2021-08-13 19:48] VITALS: BP 103/70
[2021-08-13] MEDS: PATCH REMOVAL TP SCH (21:50)
[2021-08-14] VITALS (7 sets, daily range): BP systolic 102–117; BP diastolic 50–86
[2021-08-14] MEDS: LACTATED RINGERS 1,000 ML IV SCH ×3 (00:31→22:48)
[2021-08-14] MEDS: meTOprolol 5 MG/5 ML (LOPRESSOR) VIAL IV SCH ×4 (00:31→18:36)
[2021-08-14] MEDS: RT-ALBUTEROL/IPRATROPIUM 3 ML (DUONEB) VIAL INH SCH ×5 (03:05→21:54)
[2021-08-14] MEDS: PIPERACILLIN SODIUM/TAZOBACTAM 4.5 GM in NS (IVPB) 100 ML IV SCH ×3 (03:47→18:36)
[2021-08-14 04:09] LABS: BASOPHILS % (AUTO) 0 % (0-10); EOSINOPHILS # (AUTO) 0.1 10^3/uL (0.0-0.3); EOSINOPHILS % (AUTO) 0 % (0-10); HEMATOCRIT 26 % (35-52); HEMOGLOBIN 8.2 g/dL (11.5-16.0); LYMPHOCYTES # (AUTO) 1.5 10^3/uL (1.0-4.0); LYMPHOCYTES % (AUTO) 12 % (12-44); MEAN CORPUSCULAR HEMOGLOBIN 32 pg (25-34); MEAN CORPUSCULAR HGB CONC 32 g/dL (32-36); MEAN CORPUSCULAR VOLUME 98 fL (80-99); MEAN PLATELET VOLUME 9.5 fL (9.0-12.2); MONOCYTES # (AUTO) 1.1 10^3/uL (0.0-1.0); MONOCYTES % (AUTO) 9 % (0-12); NEUTROPHILS # (AUTO) 9.2 10^3/uL (1.8-7.8); NEUTROPHILS % (AUTO) 74 % (42-75); PLATELET COUNT 501 10^3/uL (130-400); WHITE BLOOD COUNT 12.4 10^3/uL (4.3-11.0)
[2021-08-14 04:18] LABS: ALBUMIN 2.2 GM/DL (3.2-4.5); POTASSIUM 3.7 MMOL/L (3.6-5.0)
[2021-08-14 04:19] LABS: CALCIUM 7.1 MG/DL (8.5-10.1)
[2021-08-14 04:21] LABS: TOTAL PROTEIN 4.4 GM/DL (6.4-8.2)
[2021-08-14 04:22] LABS: BILIRUBIN,TOTAL 0.8 MG/DL (0.1-1.0)
[2021-08-14 04:24] LABS: CREATININE SERUM 0.59 MG/DL (0.60-1.30)
[2021-08-14 04:27] LABS: MAGNESIUM 1.9 MG/DL (1.6-2.4)
--- NOTE | 2021-08-14 07:35 | Progress Note - Surgery ---
MAO ELLIS 08/14/21 0735: Subjective Date Seen by a Provider: Aug 14, 2021 Time Seen by a Provider: 07:29 Subjective/Events-last exam Ms. Arriaga was laying down in bed this morning and says that she is not feeling very well today. She reports general malaise and fatigue today. She reports her breathing is not good. She denies abdominal pain, nausea, or vomiting. She has started using ICS but was only able to use it 4 times yesterday. I informed her and her daughter that the goal should be 10 times an hour for ICS use. Patient had normal bowel movements yesterday, denies diarrhea. Review of Systems General: Fatigue, Malaise HEENT: No Head Aches, No Visual Changes Pulmonary: Dyspnea, Cough Cardiovascular: No: Chest Pain, Palpitations Gastrointestinal: No: Nausea, Vomiting, Abdominal Pain, Diarrhea Musculoskeletal: back pain; No: leg pain Neurological: No: Weakness, Confusion Objective Exam Vital Signs Date Time Temp Pulse Resp B/P (MAP) Pulse Ox O2 Delivery O2 Flow Rate FiO2 08/14/21 04:00 125 20 117/84 (95) 96 Nasal Cannula 2.00 08/14/21 03:05 96 Nasal Cannula 1.00 08/14/21 01:00 129 08/14/21 00:00 36.2 08/14/21 00:00 111 18 97 Nasal Cannula 2.00 08/13/21 22:25 96 Nasal Cannula 1.00 08/13/21 21:00 96 Nasal Cannula 1.00 08/13/21 19:48 36.1 121 18 103/70 (81) 96 Nasal Cannula 2.00 08/13/21 19:02 97 Nasal Cannula 1.00 08/13/21 19:00 137 08/13/21 16:00 35.9 114 20 108/54 (72) 97 Nasal Cannula 2.00 08/13/21 15:33 97 Nasal Cannula 1.00 08/13/21 15:33 36.4 130 97 1 08/13/21 13:38 36.5 08/13/21 13:00 88 08/13/21 08:00 97 Nasal Cannula 1.00 08/13/21 08:00 36.4 I & O 08/14/21 07:00 Intake Total 3235 ml Output Total 2525 ml Balance 710 ml Capillary Refill : Less Than 3 Seconds General Appearance: No Apparent Distress, Chronically ill HEENT: PERRL/EOMI, Pale Conjunctivae (L), Pale Conjunctivae (R); No Scleral Icterus (L), No Scleral Icterus (R) Neck: Normal Inspection, Non Tender; No Lymphadenopathy (L), No Lymphadenopathy (R) Respiratory: Chest Non Tender, No Accessory Muscle Use, No Respiratory Distress, Crackles (B/L), Wheezing (B/L) Cardiovascular: No Gallop, Normal Peripheral Pulses, Irregularly Irregular, Tachycardia Peripheral Pulses: 2+ Dorsalis Pedis (R), 2+ Left Dors-Pedis (L), 2+ Radial Pulses (R), 2+ Radial Pulses (L) Gastrointestinal: normal bowel sounds, non tender, soft; No distended, No tenderness Extremity: Normal Inspection, Non Tender, No Calf Tenderness, Pedal Edema Neurologic/Psychiatric: Alert, Oriented x3, No Motor/Sensory Deficits, Normal Mood/Affect Skin: Normal Color, Warm/Dry Lymphatic: No Adenopathy (Head and neck) Results Lab Laboratory Tests 08/14/21 04:00: White Blood Count 12.4H, Red Blood Count 2.60L, Hemoglobin 8.2L, Hematocrit 26L, Mean Corpuscular Volume 98, Mean Corpuscular Hemoglobin 32, Mean Corpuscular Hemoglobin Concent 32, Red Cell Distribution Width 15.5H, Platelet Count 501H, Mean Platelet Volume 9.5, Immature Granulocyte % (Auto) 5, Neutrophils (%) (Auto) 74, Lymphocytes (%) (Auto) 12, Monocytes (%) (Auto) 9, Eosinophils (%) (Auto) 0, Basophils (%) (Auto) 0, Neutrophils # (Auto) 9.2H, Lymphocytes # (Auto) 1.5, Monocytes # (Auto) 1.1H, Eosinophils # (Auto) 0.1, Basophils # (Auto) 0.0, Immature Granulocyte # (Auto) 0.6H, Sodium Level 138, Potassium Level 3.7, Chloride Level 106, Carbon Dioxide Level 20L, Anion Gap 12, Blood Urea Nitrogen 6L, Creatinine 0.59L, Estimat Glomerular Filtration Rate 99, BUN/Creatinine Ratio 10, Glucose Level 123H, Calcium Level 7.1L, Corrected Calcium 8.5, Magnesium Level 1.9, Total Bilirubin 0.8, Aspartate Amino Transf (AST/SGOT) 23, Alanine Aminotransferase (ALT/SGPT) 35, Alkaline Phosphatase 69, Total Protein 4.4L, Albumin 2.2L, Digoxin Level 0.60L Microbiology 08/07/21 Gram Stain - Final, Complete 08/07/21 Sputum Culture - Final, Complete Usual upper respiratory erika YEAST Gram Negative Bacillus 1 08/06/21 Blood Culture - Final, Complete No growth Assessment/Plan Assessment/Plan Assessment/Plan Assessment Pancreatitis, most likely acute pancreatitis - WBC at 12.4, stable for 3 days. Neutrophils remain normal, monitor. - Hgb at 8.2. Stable. - BUN at 6. Good prognostic indication. - CT showed gas and fluid in the pancreas are stable and similar to the last CT. Thrombocytosis - Platelet count at 501 today, trending up for 3 days. Monitor Abdominal pain - No pain reported today. AFib with RVR - Cardiology consulted. On metoprolol and digoxin. Bacteremia - C. perfringens. Lung consolidation r/o pneumonia - Breath sounds worsening B/L - Patient using ICS - Consider changing antibiotics Hypokalemia - Resolved Transaminitis - Resolved Hyperbilirubinemia - Resolved Hypertriglyceridemia Plan Continue liquid diet and IV fluids. Consider diet advancement to soft diet today. Continue Pip/Tazo. Consider switching antibiotics to vancomycin and ceftriaxone for HAP coverage. CXR showed increased infiltrates and breath sounds are worsening. Consider ordering procalcitonin for developing pneumonia. Monitor potassium. Continue to encourage ICS use, 10 times per hour if possible. Pain control as needed. h/o cholecystectomy and appendectomy. PICC line placed, CXR confirmed at tip of SVC. Surgery, if required, would need to be done at a tertiary care center. Patient improving with medical management. Daughter at bedside again this morning. The plan is to still continue with medical management; surgery is not indicated at this time HALIMA MACIAS DO 08/14/21 1625: Subjective Subjective/Events-last exam More difficulty breathing. Fatigued and didn't get much rest last night. Not using IS much. No appetite. No significant abdominal pain. Denies fever sweats chills or chest pain. Chest x ray worsening infiltrates b/l. Objective Exam General Appearance: No Apparent Distress, Chronically ill HEENT: PERRL/EOMI, Normal ENT Inspection Neck: Normal Inspection, Non Tender Respiratory: Chest Non Tender, No Accessory Muscle Use, No Respiratory Distress, Crackles (B/L), Wheezing (B/L) Cardiovascular: No JVD, Irregularly Irregular Gastrointestinal: non tender, soft; No distended, No tenderness Extremity: Normal Inspection, Non Tender Neurologic/Psychiatric: Alert, Normal Mood/Affect Skin: Normal Color, Warm/Dry Lymphatic: No Adenopathy (Head and neck) Assessment/Plan Assessment/Plan Assessment/Plan Pancreatitis shortness of breath with increasing b/l infiltrates leukocytosis epigastric abdominal pain improved bacteremia c C. perfringens afib Patient on Zosyn, If breathing and leukocytosis not improving tomorrow consider changing to Meropenem Diet as tolerates Encouraged IS Continue supportive care Supervisory-Addendum Brief Verification & Attestation Participated in pt care: history, MDM, physical Personally performed: exam, history, MDM, supervision of care Care discussed with: Medical Student Procedures: n/a Results interpretation: Verified all documentation Verification and Attestation of Medical Student E/M Service A medical student performed and documented this service in my presence. I reviewed and verified all information documented by the medical student and made modifications to such information, when appropriate. I personally performed the physical exam and medical decision making. Halima Macias, Aug 14, 2021,19:57 MAO ELLIS Aug 14, 2021 07:35 HALIMA MACIAS DO Aug 14, 2021 16:25
--- NOTE | 2021-08-14 08:47 | Progress Note ---
Subjective Subjective Date Seen by Provider: Aug 13, 2021 Time Seen by Provider: 08:10 PT IS A 76 Y/O FEMALE WHO IS KNOWN TO ME FROM CLINIC. SHE PRESENTED TO THE ER WITH ABDOMINAL PAIN, WAS DIAGNOSED WITH ACUTE PANCREATITIS - PT HAD DECLINE, DEVELOPED GROSSLY ELEVATED BILIRUBIN AT 10, DX WITH NECROTIZING PANCREATITIS, AND AFIB NOT RATE CONTROLLED, TRANSFERRED UP TO STEPDOWN UNIT. PT IMPROVED FROM A GI STANDPOINT, SHE IS FEELING BETTER, ON LIQUIDS TOLERATING THOSE WELL. Review of Systems General: Fatigue, Malaise HEENT: No Head Aches, No Visual Changes Pulmonary: Dyspnea, Cough Cardiovascular: No: Chest Pain, Palpitations Gastrointestinal: No: Nausea, Vomiting, Abdominal Pain, Diarrhea Genitourinary: Other (Urinary cath) Musculoskeletal: back pain; No: leg pain Neurological: No: Weakness, Confusion All Other Systems Reviewed All Other Systems Reviewed: Yes Objective Exam Vital Signs Vital Signs Date Time Temp Pulse Resp B/P (MAP) Pulse Ox O2 Delivery O2 Flow Rate FiO2 08/14/21 08:00 36.0 130 22 102/86 (91) 96 Nasal Cannula 08/14/21 07:00 137 08/14/21 04:00 125 20 117/84 (95) 96 Nasal Cannula 2.00 08/14/21 03:05 96 Nasal Cannula 1.00 08/14/21 01:00 129 08/14/21 00:00 36.2 08/14/21 00:00 111 18 97 Nasal Cannula 2.00 08/13/21 22:25 96 Nasal Cannula 1.00 08/13/21 21:00 96 Nasal Cannula 1.00 08/13/21 19:48 36.1 121 18 103/70 (81) 96 Nasal Cannula 2.00 08/13/21 19:02 97 Nasal Cannula 1.00 08/13/21 19:00 137 08/13/21 16:00 35.9 114 20 108/54 (72) 97 Nasal Cannula 2.00 08/13/21 15:33 97 Nasal Cannula 1.00 08/13/21 15:33 36.4 130 97 1 08/13/21 13:38 36.5 08/13/21 13:00 88 I & O 08/14/21 07:00 Intake Total 3235 ml Output Total 2525 ml Balance 710 ml General Appearance: No Apparent Distress, Chronically ill Eyes: Bilateral Eye Normal Inspection, Bilateral Eye PERRL, Bilateral Eye EOMI HEENT: PERRL/EOMI, Pale Conjunctivae (L), Pale Conjunctivae (R); No Scleral Icterus (L), No Scleral Icterus (R) Neck: Normal Inspection, Non Tender; No Lymphadenopathy (L), No Lymphadenopathy (R) Respiratory: Chest Non Tender, No Accessory Muscle Use, No Respiratory Distre ss, Decreased Breath Sounds (IMPROVED) Cardiovascular: No Gallop, Normal Peripheral Pulses, Irregularly Irregular, Tachycardia Gastrointestinal: Normal Bowel Sounds, Non Tender, Soft Rectal: Deferred Back: Normal Inspection, No Vertebral Tenderness Extremity: Normal Inspection, Non Tender, No Calf Tenderness, Pedal Edema Neurologic/Psychiatric: Alert, Oriented x3, No Motor/Sensory Deficits, Normal Mood/Affect Skin: Normal Color, Warm/Dry Lymphatic: No Adenopathy (Head and neck) Results Lab Laboratory Tests 08/14/21 04:00: White Blood Count 12.4H, Red Blood Count 2.60L, Hemoglobin 8.2L, Hematocrit 26L, Mean Corpuscular Volume 98, Mean Corpuscular Hemoglobin 32, Mean Corpuscular Hemoglobin Concent 32, Red Cell Distribution Width 15.5H, Platelet Count 501H, Mean Platelet Volume 9.5, Immature Granulocyte % (Auto) 5, Neutrophils (%) (Auto) 74, Lymphocytes (%) (Auto) 12, Monocytes (%) (Auto) 9, Eosinophils (%) (Auto) 0, Basophils (%) (Auto) 0, Neutrophils # (Auto) 9.2H, Lymphocytes # (Auto) 1.5, Monocytes # (Auto) 1.1H, Eosinophils # (Auto) 0.1, Basophils # (Auto) 0.0, Immature Granulocyte # (Auto) 0.6H, Sodium Level 138, Potassium Level 3.7, Chloride Level 106, Carbon Dioxide Level 20L, Anion Gap 12, Blood Urea Nitrogen 6L, Creatinine 0.59L, Estimat Glomerular Filtration Rate 99, BUN/Creatinine Ratio 10, Glucose Level 123H, Calcium Level 7.1L, Corrected Calcium 8.5, Magnesium Level 1.9, Total Bilirubin 0.8, Aspartate Amino Transf (AST/SGOT) 23, Alanine Aminotransferase (ALT/SGPT) 35, Alkaline Phosphatase 69, Total Protein 4.4L, Albumin 2.2L, Digoxin Level 0.60L Microbiology 08/07/21 Gram Stain - Final, Complete 08/07/21 Sputum Culture - Final, Complete Usual upper respiratory erika YEAST Gram Negative Bacillus 1 08/06/21 Blood Culture - Final, Complete No growth Assessment/Plan Assessment/Plan Admission Dx ACUTE PANCREATITIS EPIGASTRIC ABDOMINAL PAIN ELEVATED LIVER ENZYMES ELEVATED TRIGLYCERIDES HYPERTENSION ATRIAL FIBRILLATION - CHRONIC CHRONIC ANTICOAGULATION REFLUX Assessment and Plan ACUTE NECROTIZING PANCREATITIS SEPSIS EPIGASTRIC ABDOMINAL PAIN ELEVATED LIVER ENZYMES ELEVATED TRIGLYCERIDES HYPERTENSION ATRIAL FIBRILLATION - CHRONIC CHRONIC ANTICOAGULATION REFLUX GROGGY LACTIC ACIDOSIS SEPSIS DUE TO ACUTE NECROTIZING PANCREATITIS WITH EPIGASTRIC ABDOMINAL PAIN - NO LONGER APPEARS TO HAVE NECROTIZING PANCREAS, NO SURGICAL INTERVENTION NEEDED AT THIS TIME. - CONSULT TO SURGEON - BLOOD CULTURE - CLOSTRIDIUM PERFRINGENS - PT STARTED ON ZOSYN YESTERDAY EVENING AND FLAGYL THIS MORNING (08/07/2021) - IV ROCEPHIN INITIATED ON ADMISSION - STOPPED ON 08/06/2021 EVENING AND CHANGED TO ZOSYN - REPEAT CT SCAN BELOW - SURGEON OVERVIEW WITH ADDITIONAL RADIOLOGIST IS OF NECROTIZING PANCREATITIS - ATTEMPTED TRANSFER TO [facility], UNFORTUNATELY, NO AVAILABLE BEDS AVAILABLE - PT TO CONTINUE WITH IV ANTIBIOTICS, NO SURGICAL INTERVENTION NEEDED AT THIS TIME AND PATIENT NOT IN NEED TRANSFER AT THIS TIME DUE TO IMPROVEMENT - CONTINUE WITH CURRENT REGIMEN, ADVANCEMENT OF DIET PER SURGEON. HYPOKALEMIA - REPLACE WITH IV SUPPLEMENTATION ELEVATED LIVER ENZYMES WITH HYPERBILIRUBINEMIA - RESOLVING - IV HYDRATION, REPEAT LABS IN MORNING. ANEMIA - SUPPORTIVE CARE, IF HGB DROPS BELOW 7 WILL TRANSFUSE ELEVATED TRIGLYCERIDES - HOLD ANTILIPEMIC AGENTS FOR NOW HYPERTENSION - DEFER TO CARDIOLOGY WITH ADJUSTMENT OF MEDICATIONS FOR AFIB ATRIAL FIBRILLATION - CHRONIC - PLANNING ON TRANSITION TO ORAL MEDICATIONS CHRONIC ANTICOAGULATION - HOLD ELIQUIS, LOVENOX STOPPED DUE TO GROSS HEMATOCHEZIA REFLUX - PPI THERAPY DVT PROPHYLAXIS WITH SCD'S, LOVENOX STOPPED DUE TO GROSS HEMATOCHEZIA GI PROPHYLAXIS WITH PPI, WILL START ON PROBIOTICS WHEN ABLE TO TAKE PO FOOD/FLUIDS TOBACCOISM - PT IS REFUSING NICOTINE PATCHES WILL NEED TO LOOK AT INPT REHAB PRIOR TO DC TO HOME Admission Dx ACUTE PANCREATITIS EPIGASTRIC ABDOMINAL PAIN ELEVATED LIVER ENZYMES ELEVATED TRIGLYCERIDES HYPERTENSION ATRIAL FIBRILLATION - CHRONIC CHRONIC ANTICOAGULATION REFLUX Clinical Quality Measures Admission Status Admission Dx ACUTE PANCREATITIS EPIGASTRIC ABDOMINAL PAIN ELEVATED LIVER ENZYMES ELEVATED TRIGLYCERIDES HYPERTENSION ATRIAL FIBRILLATION - CHRONIC CHRONIC ANTICOAGULATION REFLUX REMY MCELROY MD Aug 14, 2021 08:47
--- NOTE | 2021-08-14 08:48 | Progress Note ---
Subjective Subjective Date Seen by Provider: Aug 14, 2021 Time Seen by Provider: 08:48 PT IS A 76 Y/O FEMALE WHO IS KNOWN TO ME FROM CLINIC. SHE PRESENTED TO THE ER WITH ABDOMINAL PAIN, WAS DIAGNOSED WITH ACUTE PANCREATITIS - PT HAD DECLINE, DEVELOPED GROSSLY ELEVATED BILIRUBIN AT 10, DX WITH NECROTIZING PANCREATITIS, AND AFIB NOT RATE CONTROLLED, TRANSFERRED UP TO STEPDOWN UNIT. PT HAVING FATIGUE, WEAKNESS, PT'S DTR REPORTS SHE FEELS LIKE HER MOM IS HAVING MORE TROUBLE FROM A BREATHING STANDPOINT TODAY. Review of Systems General: Fatigue, Malaise HEENT: No Head Aches, No Visual Changes Pulmonary: Dyspnea, Cough Cardiovascular: No: Chest Pain, Palpitations Gastrointestinal: No: Nausea, Vomiting, Abdominal Pain, Diarrhea Genitourinary: Other (Urinary cath) Musculoskeletal: back pain; No: leg pain Neurological: No: Weakness, Confusion All Other Systems Reviewed All Other Systems Reviewed: Yes Objective Exam Vital Signs Vital Signs Date Time Temp Pulse Resp B/P (MAP) Pulse Ox O2 Delivery O2 Flow Rate FiO2 08/14/21 08:00 36.0 130 22 102/86 (91) 96 Nasal Cannula 08/14/21 07:00 137 08/14/21 04:00 125 20 117/84 (95) 96 Nasal Cannula 2.00 08/14/21 03:05 96 Nasal Cannula 1.00 08/14/21 01:00 129 08/14/21 00:00 36.2 08/14/21 00:00 111 18 97 Nasal Cannula 2.00 08/13/21 22:25 96 Nasal Cannula 1.00 08/13/21 21:00 96 Nasal Cannula 1.00 08/13/21 19:48 36.1 121 18 103/70 (81) 96 Nasal Cannula 2.00 08/13/21 19:02 97 Nasal Cannula 1.00 08/13/21 19:00 137 08/13/21 16:00 35.9 114 20 108/54 (72) 97 Nasal Cannula 2.00 08/13/21 15:33 97 Nasal Cannula 1.00 08/13/21 15:33 36.4 130 97 1 08/13/21 13:38 36.5 08/13/21 13:00 88 I & O 08/14/21 07:00 Intake Total 3235 ml Output Total 2525 ml Balance 710 ml General Appearance: No Apparent Distress, Chronically ill Eyes: Bilateral Eye Normal Inspection, Bilateral Eye PERRL, Bilateral Eye EOMI HEENT: PERRL/EOMI, Pale Conjunctivae (L), Pale Conjunctivae (R); No Scleral Icterus (L), No Scleral Icterus (R) Neck: Normal Inspection, Non Tender; No Lymphadenopathy (L), No Lymphadenopathy (R) Respiratory: Chest Non Tender, No Accessory Muscle Use, No Respiratory Distress, Crackles (B/L), Decreased Breath Sounds Cardiovascular: No Gallop, Normal Peripheral Pulses, Irregularly Irregular, Tachycardia Gastrointestinal: Normal Bowel Sounds, Non Tender, Soft, Distended (SLIGHTLY) Rectal: Deferred Back: Normal Inspection, No Vertebral Tenderness Extremity: Normal Inspection, Non Tender, No Calf Tenderness, Pedal Edema Neurologic/Psychiatric: Alert, Oriented x3, No Motor/Sensory Deficits, Normal Mood/Affect Skin: Normal Color, Warm/Dry Lymphatic: No Adenopathy (Head and neck) Results Lab Laboratory Tests 08/14/21 04:00: White Blood Count 12.4H, Red Blood Count 2.60L, Hemoglobin 8.2L, Hematocrit 26L, Mean Corpuscular Volume 98, Mean Corpuscular Hemoglobin 32, Mean Corpuscular Hem oglobin Concent 32, Red Cell Distribution Width 15.5H, Platelet Count 501H, Mean Platelet Volume 9.5, Immature Granulocyte % (Auto) 5, Neutrophils (%) (Auto) 74, Lymphocytes (%) (Auto) 12, Monocytes (%) (Auto) 9, Eosinophils (%) (Auto) 0, Basophils (%) (Auto) 0, Neutrophils # (Auto) 9.2H, Lymphocytes # (Auto) 1.5, Monocytes # (Auto) 1.1H, Eosinophils # (Auto) 0.1, Basophils # (Auto) 0.0, Immature Granulocyte # (Auto) 0.6H, Sodium Level 138, Potassium Level 3.7, Chloride Level 106, Carbon Dioxide Level 20L, Anion Gap 12, Blood Urea Nitrogen 6L, Creatinine 0.59L, Estimat Glomerular Filtration Rate 99, BUN/Creatinine Ratio 10, Glucose Level 123H, Calcium Level 7.1L, Corrected Calcium 8.5, Magnesium Level 1.9, Total Bilirubin 0.8, Aspartate Amino Transf (AST/SGOT) 23, Alanine Aminotransferase (ALT/SGPT) 35, Alkaline Phosphatase 69, Total Protein 4.4L, Albumin 2.2L, Digoxin Level 0.60L Microbiology 08/07/21 Gram Stain - Final, Complete 08/07/21 Sputum Culture - Final, Complete Usual upper respiratory erika YEAST Gram Negative Bacillus 1 08/06/21 Blood Culture - Final, Complete No growth Assessment/Plan Assessment/Plan Admission Dx ACUTE PANCREATITIS EPIGASTRIC ABDOMINAL PAIN ELEVATED LIVER ENZYMES ELEVATED TRIGLYCERIDES HYPERTENSION ATRIAL FIBRILLATION - CHRONIC CHRONIC ANTICOAGULATION REFLUX Assessment and Plan ACUTE NECROTIZING PANCREATITIS SEPSIS EPIGASTRIC ABDOMINAL PAIN ELEVATED LIVER ENZYMES ELEVATED TRIGLYCERIDES HYPERTENSION ATRIAL FIBRILLATION - CHRONIC CHRONIC ANTICOAGULATION REFLUX GROGGY LACTIC ACIDOSIS COPD WITH EMPHYSEMA DYSPNEA SEPSIS DUE TO ACUTE NECROTIZING PANCREATITIS WITH EPIGASTRIC ABDOMINAL PAIN - NO LONGER APPEARS TO HAVE NECROTIZING PANCREAS, NO SURGICAL INTERVENTION NEEDED AT THIS TIME. - CONSULT TO SURGEON - BLOOD CULTURE - CLOSTRIDIUM PERFRINGENS - PT STARTED ON ZOSYN YESTERDAY EVENING AND FLAGYL THIS MORNING (08/07/2021) - IV ROCEPHIN INITIATED ON ADMISSION - STOPPED ON 08/06/2021 EVENING AND CHANGED TO ZOSYN - REPEAT CT SCAN BELOW - SURGEON OVERVIEW WITH ADDITIONAL RADIOLOGIST IS OF NECROTIZING PANCREATITIS - ATTEMPTED TRANSFER TO [facility], UNFORTUNATELY, NO AVAILABLE BEDS AVAILABLE - PT TO CONTINUE WITH IV ANTIBIOTICS, NO SURGICAL INTERVENTION NEEDED AT THIS TIME AND PATIENT NOT IN NEED TRANSFER AT THIS TIME DUE TO IMPROVEMENT - CONTINUE WITH CURRENT REGIMEN, ADVANCEMENT OF DIET PER SURGEON. COPD WITH EMPYSEMA AND DYSPNEA - WORSENING CXR - IV ANTIBIOTICS CURRENTLY BROAD SPECTRUM - IV LASIX TODAY X 1 HYPOKALEMIA - REPLACE WITH IV SUPPLEMENTATION ELEVATED LIVER ENZYMES WITH HYPERBILIRUBINEMIA - RESOLVED - IV HYDRATION, REPEAT LABS SERIALLY ANEMIA - SUPPORTIVE CARE, IF HGB DROPS BELOW 7 WILL TRANSFUSE ELEVATED TRIGLYCERIDES - HOLD ANTILIPEMIC AGENTS FOR NOW HYPERTENSION - DEFER TO CARDIOLOGY WITH ADJUSTMENT OF MEDICATIONS FOR AFIB ATRIAL FIBRILLATION - CHRONIC - TRANSITIONING TO ORAL MEDICATIONS WITH IV MEDS FOR PERSISTENT SYMPTOMS, DEFER TO CARDIOLOGY CHRONIC ANTICOAGULATION - HOLD ELIQUIS, LOVENOX STOPPED DUE TO GROSS HEMATOCHEZIA REFLUX - PPI THERAPY DVT PROPHYLAXIS WITH SCD'S, LOVENOX STOPPED DUE TO GROSS HEMATOCHEZIA GI PROPHYLAXIS WITH PPI, WILL START ON PROBIOTICS WHEN ABLE TO TAKE PO FOOD/FLUIDS TOBACCOISM - PT IS ON NICOTINE PATCHES WILL NEED TO LOOK AT INPT REHAB PRIOR TO DC TO HOME Admission Dx ACUTE PANCREATITIS EPIGASTRIC ABDOMINAL PAIN ELEVATED LIVER ENZYMES ELEVATED TRIGLYCERIDES HYPERTENSION ATRIAL FIBRILLATION - CHRONIC CHRONIC ANTICOAGULATION REFLUX Clinical Quality Measures Admission Status Admission Dx ACUTE PANCREATITIS EPIGASTRIC ABDOMINAL PAIN ELEVATED LIVER ENZYMES ELEVATED TRIGLYCERIDES HYPERTENSION ATRIAL FIBRILLATION - CHRONIC CHRONIC ANTICOAGULATION REFLUX REMY MCELROY MD Aug 14, 2021 08:48
[2021-08-14] MEDS ORDERED: FUROSEMIDE 40 MG/4 ML INJ (LASIX) IVP NR (09:00)
[2021-08-14] MEDS: polyethylene glycoL POWDER 17 GM (MIRALAX) PACK PO SCH ×2 (09:12→22:47)
[2021-08-14] MEDS: DIGOXIN 0.25 MG/ML (LANOXIN) 2 ML AMP IV SCH (09:20)
[2021-08-14] MEDS: PANTOPRAZOLE 40 MG (PROTONIX) VIAL IV SCH (09:20)
[2021-08-14] MEDS: LIDOCAINE 4% (SALONPAS) PATCH TOP SCH ×2 (09:22→14:28)
[2021-08-14] MEDS: NICOTINE 14 MG (NICODERM) PATCH TD SCH ×2 (09:22→14:28)
[2021-08-14] MEDS: NICOTINE PATCH REMOVAL TP SCH ×2 (09:23→14:28)
--- NOTE | 2021-08-14 12:11 | Progress Note - Cardiology ---
Cardiology SOAP Progress Note Subjective: No cp or palp or syncope Shortness of breath with exertion Gen malaise and weakness No n/v/d Objective: I&O/Vital Signs 08/14/21 08/14/21 08/14/21 08/14/21 01:00 03:05 04:00 07:00 Pulse 129 125 137 Resp 20 B/P (MAP) 117/84 (95) Pulse Ox 96 96 O2 Delivery Nasal Cannula Nasal Cannula O2 Flow Rate 1.00 2.00 08/14/21 08/14/21 08/14/21 08/14/21 08:00 09:00 09:01 11:58 Temp 36.0 36.0 Pulse 130 106 Resp 22 20 B/P (MAP) 102/86 (91) 110/84 (93) Pulse Ox 96 97 93 97 O2 Delivery Nasal Cannula Nasal Cannula Nasal Cannula Nasal Cannula O2 Flow Rate 1.00 1.00 08/14/21 00:00 Intake Total 1760 ml Output Total 1750 ml Balance 10 ml Weight (Pounds): 186 Weight (Ounces): 9.6 Weight (Calculated Kilograms): 84.570712 Constitutional: AAO x 3 Respiratory: No accessory muscle use, No respiratory distress; chest expansion is symmetric, chest is bilaterally symmetric Cardiovascular: irregularly irregular Gastrointestional: tender, audible bowel sounds Extremities: No swelling, No cyanosis, No significant edema Neurologic/Psychiatric: other (moves all her limbs equally) Skin: No rash on exposed areas, No ulcerations on exposed areas Results/Procedures: Labs Laboratory Tests 08/14/21 04:00: White Blood Count 12.4H, Red Blood Count 2.60L, Hemoglobin 8.2L, Hematocrit 26L, Mean Corpuscular Volume 98, Mean Corpuscular Hemoglobin 32, Mean Corpuscular Hemoglobin Concent 32, Red Cell Distribution Width 15.5H, Platelet Count 501H, Mean Platelet Volume 9.5, Immature Granulocyte % (Auto) 5, Neutrophils (%) (Auto) 74, Lymphocytes (%) (Auto) 12, Monocytes (%) (Auto) 9, Eosinophils (%) (Auto) 0, Basophils (%) (Auto) 0, Neutrophils # (Auto) 9.2H, Lymphocytes # ( Auto) 1.5, Monocytes # (Auto) 1.1H, Eosinophils # (Auto) 0.1, Basophils # (Auto) 0.0, Immature Granulocyte # (Auto) 0.6H, Sodium Level 138, Potassium Level 3.7, Chloride Level 106, Carbon Dioxide Level 20L, Anion Gap 12, Blood Urea Nitrogen 6L, Creatinine 0.59L, Estimat Glomerular Filtration Rate 99, BUN/Creatinine Ratio 10, Glucose Level 123H, Calcium Level 7.1L, Corrected Calcium 8.5, Magnesium Level 1.9, Total Bilirubin 0.8, Aspartate Amino Transf (AST/SGOT) 23, Alanine Aminotransferase (ALT/SGPT) 35, Alkaline Phosphatase 69, Total Protein 4.4L, Albumin 2.2L, Digoxin Level 0.60L Microbiology 08/07/21 Gram Stain - Final, Complete 08/07/21 Sputum Culture - Final, Complete Usual upper respiratory erika YEAST Gram Negative Bacillus 1 08/06/21 Blood Culture - Final, Complete No growth Laboratory Tests 08/13/21 04:20 08/14/21 04:00 A/P: Assessment: Acute necrotizing pancreatitis with possible pseudocyst, questionable perforation - Managed by surgery/medical services - Awaiting possible transfer to a tertiary care center - management per medical services Abdominal pain - secondary to above Hypokalemia, corrected PAF - Atrial fibrillation with rapid ventricular response. - OAC currently being withheld - resume JONNIE d/t risk of CVA when deemed safe per medical/surgical services CAD - Mild coronary artery disease per cardiac catheterization done in August 2017. - Last stress test was done in March 2021 showing no evidence of active ischemia. Ejection fraction 68%. - Echocardiogram was done in March 2021 showing normal LV size with EF 60 to 65%, mildly dilated left atrium, mitral regurgitation, bicuspid morphology of the aortic valve, aortic valve sclerosis. Hyperlipidemia - statin tx - managed by PCP Tobaccoism - cessation advised Obstructive sleep apnea - CPAP txFam h/o Surgical hx - H/o cholecystectomy, appendectomy and two groin hernia surgeries Carotid arterial disease - Carotid u/s of 03/10/21 showed 60 -79% R ICA and less than 40% L ICA stenosis L pulm mass removal on 06/16/17 at [facility] - (neuroendocrine carcinoma), being followed by [facility] Plan: Continue current regimen Replace electrolytes as needed OAC currently being held d/t risk of bleeding - advise resumption as soon as deemed safe per Surgical/Medical services Monitor lab closely JANN,ALI MD FACP FAC CCDS Aug 14, 2021 12:11
[2021-08-15] VITALS: BP 101/83
[2021-08-15] MEDS: PATCH REMOVAL TP SCH ×2 (01:44→20:36)
[2021-08-15] MEDS: meTOprolol 5 MG/5 ML (LOPRESSOR) VIAL IV SCH ×5 (01:44→23:31)
[2021-08-15] MEDS: RT-ALBUTEROL/IPRATROPIUM 3 ML (DUONEB) VIAL INH SCH ×5 (02:25→22:47)
[2021-08-15] MEDS: PIPERACILLIN SODIUM/TAZOBACTAM 4.5 GM in NS (IVPB) 100 ML IV SCH ×3 (03:34→18:36)
[2021-08-15] MEDS: LACTATED RINGERS 1,000 ML IV SCH ×2 (03:37→20:36)
[2021-08-15 04:00] VITALS: BP 115/81
[2021-08-15 04:07] LABS: BASOPHILS % (AUTO) 0 % (0-10); EOSINOPHILS % (AUTO) 0 % (0-10); HEMATOCRIT 24 % (35-52); HEMOGLOBIN 7.8 g/dL (11.5-16.0); LYMPHOCYTES # (AUTO) 0.9 10^3/uL (1.0-4.0); LYMPHOCYTES % (AUTO) 9 % (12-44); MEAN CORPUSCULAR HEMOGLOBIN 32 pg (25-34); MEAN CORPUSCULAR HGB CONC 32 g/dL (32-36); MEAN CORPUSCULAR VOLUME 101 fL (80-99); MEAN PLATELET VOLUME 9.5 fL (9.0-12.2); MONOCYTES # (AUTO) 0.8 10^3/uL (0.0-1.0); MONOCYTES % (AUTO) 8 % (0-12); NEUTROPHILS # (AUTO) 8.5 10^3/uL (1.8-7.8); NEUTROPHILS % (AUTO) 81 % (42-75); PLATELET COUNT 512 10^3/uL (130-400); WHITE BLOOD COUNT 10.6 10^3/uL (4.3-11.0)
[2021-08-15 04:34] LABS: ALBUMIN 2.2 GM/DL (3.2-4.5); POTASSIUM 3.2 MMOL/L (3.6-5.0)
[2021-08-15 04:35] LABS: CALCIUM 7.4 MG/DL (8.5-10.1)
[2021-08-15 04:36] LABS: TOTAL PROTEIN 4.2 GM/DL (6.4-8.2)
[2021-08-15 04:38] LABS: BILIRUBIN,TOTAL 0.7 MG/DL (0.1-1.0)
[2021-08-15 04:40] LABS: CREATININE SERUM 0.55 MG/DL (0.60-1.30)
--- NOTE | 2021-08-15 07:32 | Progress Note - Surgery ---
MAO ELLIS 08/15/21 0732: Subjective Date Seen by a Provider: Aug 15, 2021 Time Seen by a Provider: 07:28 Subjective/Events-last exam Ms. Arriaga says she is feeling a bit better this morning. She denies all abdominal pain and only has complaints of chronic back pain. Her breathing is "okay" this morning and she thinks it is a little bit better than yesterday. She started breathing treatments on the afternoon of the and she thinks that has helped. She has been using her incentive spirometry about 5 times per day. Her daughter was at bedside this morning and said she spent most of yesterday sleeping. She is drinking a lot but still does not have an appetite. She denies nausea, vomiting, or diarrhea. She still has a urinary catheter. She is still in AFib with her heart rate around 100-120 this morning. Review of Systems General: No Chills, No Fatigue, No Appetite HEENT: No Head Aches, No Visual Changes Pulmonary: Dyspnea, Cough Cardiovascular: No: Chest Pain, Palpitations Gastrointestinal: No: Nausea, Vomiting, Abdominal Pain, Diarrhea, Constipation Musculoskeletal: back pain; No: leg pain Neurological: No: Weakness, Confusion Objective Exam Vital Signs Date Time Temp Pulse Resp B/P (MAP) Pulse Ox O2 Delivery O2 Flow Rate FiO2 08/15/21 04:00 36.6 122 24 115/81 (92) 96 Nasal Cannula 1.00 08/15/21 02:25 96 Nasal Cannula 1.00 08/15/21 01:56 110 08/15/21 00:00 36.0 128 24 101/83 (89) 96 Nasal Cannula 1.00 08/14/21 22:50 36.1 08/14/21 21:54 96 Nasal Cannula 1.00 08/14/21 20:00 97 Nasal Cannula 1.00 08/14/21 20:00 36.7 08/14/21 19:00 110 08/14/21 18:53 112 20 113/74 (87) 94 Nasal Cannula 1.00 08/14/21 18:37 96 Nasal Cannula 1.00 08/14/21 18:27 93 20 108/50 (69) 94 Nasal Cannula 1.00 08/14/21 16:00 36.8 97 20 105/50 (68) 95 Nasal Cannula 1.00 08/14/21 14:46 96 Nasal Cannula 1.00 08/14/21 12:43 61 08/14/21 11:58 36.0 106 20 110/84 (93) 97 Nasal Cannula 08/14/21 09:01 93 Nasal Cannula 1.00 08/14/21 09:00 97 Nasal Cannula 1.00 08/14/21 08:00 36.0 130 22 102/86 (91) 96 Nasal Cannula 08/14/21 07:40 36.0 126 20 102/86 (91) 96 Nasal Cannula 2.00 I & O 08/15/21 07:00 Intake Total 1400 ml Output Total 4275 ml Balance -2875 ml Capillary Refill : Less Than 3 Seconds General Appearance: No Apparent Distress, Chronically ill HEENT: PERRL/EOMI, Pale Conjunctivae (L), Pale Conjunctivae (R); No Scleral Icterus (L), No Scleral Icterus (R) Neck: Normal Inspection, Non Tender; No Lymphadenopathy (L), No Lymphadenopathy (R) Respiratory: Chest Non Tender, No Accessory Muscle Use, No Respiratory Distress, Wheezing (B/L) Cardiovascular: Normal Peripheral Pulses, Irregularly Irregular, Tachycardia Peripheral Pulses: 2+ Dorsalis Pedis (R), 2+ Left Dors-Pedis (L), 2+ Radial Pulses (R), 2+ Radial Pulses (L) Gastrointestinal: non tender, soft; No distended, No tenderness Extremity: Normal Capillary Refill, Normal Inspection, Non Tender, Pedal Edema Neurologic/Psychiatric: Alert, Oriented x3, No Motor/Sensory Deficits, Normal Mood/Affect Skin: Normal Color, Warm/Dry Lymphatic: No Adenopathy (Head and neck) Results Lab Laboratory Tests 08/15/21 04:00: White Blood Count 10.6, Red Blood Count 2.41L, Hemoglobin 7.8L, Hematocrit 24L, Mean Corpuscular Volume 101H, Mean Corpuscular Hemoglobin 32, Mean Corpuscular Hemoglobin Concent 32, Red Cell Distribution Width 15.9H, Platelet Count 512H, Mean Platelet Volume 9.5, Immature Granulocyte % (Auto) 3, Neutrophils (%) (Auto) 81H, Lymphocytes (%) (Auto) 9L, Monocytes (%) (Auto) 8, Eosinophils (%) (Auto) 0, Basophils (%) (Auto) 0, Neutrophils # (Auto) 8.5H, Lymphocytes # (Auto) 0.9L, Monocytes # (Auto) 0.8, Eosinophils # (Auto) 0.0, Basophils # (Auto) 0.0, Immature Granulocyte # (Auto) 0.3H, Sodium Level 136, Potassium Level 3.2L, Chloride Level 105, Carbon Dioxide Level 21, Anion Gap 10, Blood Urea Nitrogen 5L, Creatinine 0.55L, Estimat Glomerular Filtration Rate 95, BUN/Creatinine Ratio 9, Glucose Level 105, Calcium Level 7.4L, Corrected Calcium 8.8, Total Bilirubin 0.7, Aspartate Amino Transf (AST/SGOT) 32, Alanine Aminotransferase (ALT/SGPT) 31, Alkaline Phosphatase 63, Total Protein 4.2L, Albumin 2.2L Microbiology 08/07/21 Gram Stain - Final, Complete 08/07/21 Sputum Culture - Final, Complete Usual upper respiratory erika YEAST Gram Negative Bacillus 1 08/06/21 Blood Culture - Final, Complete No growth Assessment/Plan Assessment/Plan Assessment/Plan Assessment Pancreatitis, most likely acute pancreatitis - WBC at 10.6 - Hgb at 7.8 Thrombocytosis - Platelet count at 512 today. Trending up. Monitor Abdominal pain - No pain reported today. AFib with RVR - Cardiology consulted. On metoprolol, diltiazem, and digoxin. Bacteremia - C. perfringens. Lung consolidation r/o pneumonia - Breath sounds poor B/L - Patient using ICS and receiving breathing treatments - Consider changing antibiotics - Current culture results show gram negative bacillus, awaiting further results Hypokalemia - 3.2 today Transaminitis - Resolved Hyperbilirubinemia - Resolved Hypertriglyceridemia Plan Continue soft diet and IV fluids. Continue Pip/Tazo. Consider switching antibiotics to vancomycin and cefepime or switching to meropenem. CXR showed increased infiltrates and breath sounds are poor. Consider ordering procalcitonin for developing pneumonia. Monitor potassium. Continue to encourage ICS use, 10 times per hour if possible. Pain control as needed. h/o cholecystectomy and appendectomy. PICC line placed, CXR confirmed at tip of SVC. Surgery, if required, would need to be done at a tertiary care center. Patient improving with medical management. Daughter at bedside again this morning. The plan is to still continue with medical management; surgery is not indicated at this time HALIMA MACIAS DO 1/14/22 1916: Subjective Subjective/Events-last exam Feeling better today. Breathing slightly better today than yesterday. No abdominal pain. Tolerating small amount of diet. Denies n/v fever sweats chills or chest pain. Objective Exam General Appearance: No Apparent Distress, Chronically ill HEENT: PERRL/EOMI Neck: Normal Inspection, Non Tender Respiratory: Chest Non Tender, No Accessory Muscle Use, No Respiratory Distress Cardiovascular: No JVD, Irregularly Irregular Gastrointestinal: non tender, soft; No distended, No tenderness Extremity: Normal Inspection, Non Tender, Pedal Edema Neurologic/Psychiatric: Alert, Oriented x3, No Motor/Sensory Deficits, Normal Mood/Affect Skin: Normal Color, Warm/Dry Lymphatic: No Adenopathy (Head and neck) Assessment/Plan Assessment/Plan Assessment/Plan necrotizing pancreatitis/acute pancreatitis. Last scan did not demonstrate necortizing pancreatiits supportive management b/l infiltrates- breathing improved slightly compared to yesterday. Epigastric abd pain- currently pain free. afib rvr continue supportive measures, diet as tolerates, continuz Zosyn since improving if changes would consider change. Supervisory-Addendum Brief Verification & Attestation Participated in pt care: history, MDM, physical Personally performed: exam, history, MDM, supervision of care Care discussed with: Medical Student Procedures: n/a Results interpretation: Verified all documentation Verification and Attestation of Medical Student E/M Service A medical student performed and documented this service in my presence. I reviewed and verified all information documented by the medical student and made modifications to such information, when appropriate. I personally performed the physical exam and medical decision making. Halima Macias, Aug 15, 2021,19:17 MAO ELLIS Aug 15, 2021 07:32 HALIMA MACIAS DO Aug 15, 2021 19:16
[2021-08-15 07:51] VITALS: BP 127/89
[2021-08-15] MEDS ORDERED: MAGNESIUM 1 GM/100 ML IVPB 100 ML IV ONE (08:45)
[2021-08-15] MEDS: LIDOCAINE 4% (SALONPAS) PATCH TOP SCH (08:55)
[2021-08-15] MEDS: DIGOXIN 0.25 MG/ML (LANOXIN) 2 ML AMP IV SCH (08:56)
[2021-08-15] MEDS: PANTOPRAZOLE 40 MG (PROTONIX) VIAL IV SCH (08:57)
[2021-08-15] MEDS: polyethylene glycoL POWDER 17 GM (MIRALAX) PACK PO SCH ×2 (09:02→20:04)
[2021-08-15] MEDS: NICOTINE PATCH REMOVAL TP SCH (09:03)
[2021-08-15] MEDS: POTASSIUM CL 10MEQ/50ML IVPB 50 ML IV SCH ×4 (09:07→11:56)
--- NOTE | 2021-08-15 09:49 | Progress Note ---
Subjective Subjective Date Seen by Provider: Aug 15, 2021 Time Seen by Provider: 09:49 PT IS A 76 Y/O FEMALE WHO IS KNOWN TO ME FROM CLINIC. SHE PRESENTED TO THE ER WITH ABDOMINAL PAIN, WAS DIAGNOSED WITH ACUTE PANCREATITIS - PT HAD DECLINE, DEVELOPED GROSSLY ELEVATED BILIRUBIN AT 10, DX WITH NECROTIZING PANCREATITIS, AND AFIB NOT RATE CONTROLLED, TRANSFERRED UP TO STEPDOWN UNIT. THE PT CONTINUES TO BE WEAK, SHE CONTINUE TO BE SLIGHTLY IMPROVED FUNCTIONALLY, PHYSICALLY. THE FAMILY CONTINUES TO BE CONCERNED ABOUT PLACEMENT PLANS Review of Systems General: Fatigue, Malaise HEENT: No Head Aches, No Visual Changes Pulmonary: Dyspnea, Cough Cardiovascular: No: Chest Pain, Palpitations Gastrointestinal: No: Nausea, Vomiting, Abdominal Pain, Diarrhea Genitourinary: Other (Urinary cath) Musculoskeletal: back pain; No: leg pain Neurological: No: Weakness, Confusion All Other Systems Reviewed All Other Systems Reviewed: Yes Objective Exam Vital Signs Vital Signs Date Time Temp Pulse Resp B/P (MAP) Pulse Ox O2 Delivery O2 Flow Rate FiO2 08/15/21 08:10 97 Nasal Cannula 1.00 08/15/21 07:51 36.1 112 22 127/89 (102) 97 Nasal Cannula 1.00 08/15/21 07:00 135 08/15/21 04:00 36.6 122 24 115/81 (92) 96 Nasal Cannula 1.00 08/15/21 02:25 96 Nasal Cannula 1.00 08/15/21 01:56 110 08/15/21 00:00 36.0 128 24 101/83 (89) 96 Nasal Cannula 1.00 08/14/21 22:50 36.1 08/14/21 21:54 96 Nasal Cannula 1.00 08/14/21 20:00 97 Nasal Cannula 1.00 08/14/21 20:00 36.7 08/14/21 19:00 110 08/14/21 18:53 112 20 113/74 (87) 94 Nasal Cannula 1.00 08/14/21 18:37 96 Nasal Cannula 1.00 08/14/21 18:27 93 20 108/50 (69) 94 Nasal Cannula 1.00 08/14/21 16:00 36.8 97 20 105/50 (68) 95 Nasal Cannula 1.00 08/14/21 14:46 96 Nasal Cannula 1.00 08/14/21 12:43 61 08/14/21 11:58 36.0 106 20 110/84 (93) 97 Nasal Cannula I & O 08/15/21 07:00 Intake Total 2500 ml Output Total 4275 ml Balance -1775 ml General Appearance: No Apparent Distress, Chronically ill Eyes: Bilateral Eye Normal Inspection, Bilateral Eye PERRL, Bilateral Eye EOMI HEENT: PERRL/EOMI, Pale Conjunctivae (L), Pale Conjunctivae (R); No Scleral Icterus (L), No Scleral Icterus (R) Neck: Normal Inspection, Non Tender; No Lymphadenopathy (L), No Lymphadenopathy (R) Respiratory: Chest Non Tender, No Accessory Muscle Use, No Respiratory Distress, Crackles (B/L), Decreased Breath Sounds Cardiovascular: No Gallop, Normal Peripheral Pulses, Irregularly Irregular, Tachycardia Gastrointestinal: Normal Bowel Sounds, Non Tender, Soft, Distended (SLIGHTLY) Rectal: Deferred Back: Normal Inspection, No Vertebral Tenderness Extremity: Normal Inspection, Non Tender, No Calf Tenderness, Pedal Edema Neurologic/Psychiatric: Alert, Oriented x3, No Motor/Sensory Deficits, Normal M ood/Affect Skin: Normal Color, Warm/Dry Lymphatic: No Adenopathy (Head and neck) Results Lab Laboratory Tests 08/15/21 04:00: White Blood Count 10.6, Red Blood Count 2.41L, Hemoglobin 7.8L, Hematocrit 24L, Mean Corpuscular Volume 101H, Mean Corpuscular Hemoglobin 32, Mean Corpuscular Hemoglobin Concent 32, Red Cell Distribution Width 15.9H, Platelet Count 512H, Mean Platelet Volume 9.5, Immature Granulocyte % (Auto) 3, Neutrophils (%) (Auto) 81H, Lymphocytes (%) (Auto) 9L, Monocytes (%) (Auto) 8, Eosinophils (%) (Auto) 0, Basophils (%) (Auto) 0, Neutrophils # (Auto) 8.5H, Lymphocytes # (Auto) 0.9L, Monocytes # (Auto) 0.8, Eosinophils # (Auto) 0.0, Basophils # (Auto) 0.0, Immature Granulocyte # (Auto) 0.3H, Sodium Level 136, Potassium Level 3.2L, Chloride Level 105, Carbon Dioxide Level 21, Anion Gap 10, Blood Urea Nitrogen 5L, Creatinine 0.55L, Estimat Glomerular Filtration Rate 95, BUN/Creatinine Ratio 9, Glucose Level 105, Calcium Level 7.4L, Corrected Calcium 8.8, Total Bilirubin 0.7, Aspartate Amino Transf (AST/SGOT) 32, Alanine Aminotransferase (ALT/SGPT) 31, Alkaline Phosphatase 63, Total Protein 4.2L, Albumin 2.2L Microbiology 08/07/21 Gram Stain - Final, Complete 08/07/21 Sputum Culture - Final, Complete Usual upper respiratory erika YEAST Gram Negative Bacillus 1 08/06/21 Blood Culture - Final, Complete No growth Assessment/Plan Assessment/Plan Admission Dx ACUTE PANCREATITIS EPIGASTRIC ABDOMINAL PAIN ELEVATED LIVER ENZYMES ELEVATED TRIGLYCERIDES HYPERTENSION ATRIAL FIBRILLATION - CHRONIC CHRONIC ANTICOAGULATION REFLUX Assessment and Plan ACUTE NECROTIZING PANCREATITIS SEPSIS EPIGASTRIC ABDOMINAL PAIN ELEVATED LIVER ENZYMES ELEVATED TRIGLYCERIDES HYPERTENSION ATRIAL FIBRILLATION - CHRONIC CHRONIC ANTICOAGULATION REFLUX GROGGY LACTIC ACIDOSIS COPD WITH EMPHYSEMA DYSPNEA SEPSIS DUE TO ACUTE NECROTIZING PANCREATITIS WITH EPIGASTRIC ABDOMINAL PAIN - NO LONGER APPEARS TO HAVE NECROTIZING PANCREAS, NO SURGICAL INTERVENTION NEEDED AT THIS TIME. - CONSULT TO SURGEON - BLOOD CULTURE - CLOSTRIDIUM PERFRINGENS - PT STARTED ON ZOSYN YESTERDAY EVENING AND FLAGYL THIS MORNING (08/07/2021) - IV ROCEPHIN INITIATED ON ADMISSION - STOPPED ON 08/06/2021 EVENING AND CHANGED TO ZOSYN - REPEAT CT SCAN BELOW - SURGEON OVERVIEW WITH ADDITIONAL RADIOLOGIST IS OF NECROTIZING PANCREATITIS - ATTEMPTED TRANSFER TO T[facility]IARY CARE CENTER, UNFORTUNATELY, NO AVAILABLE BEDS AVAILABLE - PT TO CONTINUE WITH IV ANTIBIOTICS, NO SURGICAL INTERVENTION NEEDED AT THIS TIME AND PATIENT NOT IN NEED TRANSFER AT THIS TIME DUE TO IMPROVEMENT - CONTINUE WITH CURRENT REGIMEN, ADVANCEMENT OF DIET PER SURGEON. COPD WITH EMPYSEMA AND DYSPNEA - STABLE CXR - IV ANTIBIOTICS CURRENTLY BROAD SPECTRUM - IV LASIX YESTERDAY WITH IMPROVED SYMPTOMS, WILL REPEAT LASIX 20MG IV TODAY X 1 HYPOKALEMIA - REPLACE WITH IV SUPPLEMENTATION ELEVATED LIVER ENZYMES WITH HYPERBILIRUBINEMIA - RESOLVED - IV HYDRATION, REPEAT LABS SERIALLY ANEMIA - SUPPORTIVE CARE, IF HGB DROPS BELOW 7 WILL TRANSFUSE ELEVATED TRIGLYCERIDES - HOLD ANTILIPEMIC AGENTS FOR NOW HYPERTENSION - DEFER TO CARDIOLOGY WITH ADJUSTMENT OF MEDICATIONS FOR AFIB ATRIAL FIBRILLATION - CHRONIC - TRANSITIONING TO ORAL MEDICATIONS WITH IV MEDS FOR PERSISTENT SYMPTOMS, DEFER TO CARDIOLOGY CHRONIC ANTICOAGULATION - HOLD ELIQUIS, LOVENOX STOPPED DUE TO GROSS HEMATOCHEZIA REFLUX - PPI THERAPY START PHYSICAL THERAPY TODAY DVT PROPHYLAXIS WITH SCD'S, LOVENOX STOPPED DUE TO GROSS HEMATOCHEZIA GI PROPHYLAXIS WITH PPI, WILL START ON PROBIOTICS WHEN ABLE TO TAKE PO FOOD/FLUIDS TOBACCOISM - PT IS ON NICOTINE PATCHES WILL NEED TO LOOK AT INPT REHAB PRIOR TO DC TO HOME Admission Dx ACUTE PANCREATITIS EPIGASTRIC ABDOMINAL PAIN ELEVATED LIVER ENZYMES ELEVATED TRIGLYCERIDES HYPERTENSION ATRIAL FIBRILLATION - CHRONIC CHRONIC ANTICOAGULATION REFLUX Clinical Quality Measures Admission Status Admission Dx ACUTE PANCREATITIS EPIGASTRIC ABDOMINAL PAIN ELEVATED LIVER ENZYMES ELEVATED TRIGLYCERIDES HYPERTENSION ATRIAL FIBRILLATION - CHRONIC CHRONIC ANTICOAGULATION REFLUX REMY MCELROY MD Aug 15, 2021 09:49
--- NOTE | 2021-08-15 10:11 | Progress Note - Cardiology ---
Cardiology SOAP Progress Note Subjective: Gen malaise and weakness present No cp or palp or syncope No shortness of breath at rest No n/v Objective: I&O/Vital Signs 08/14/21 08/15/21 08/15/21 08/15/21 22:50 00:00 01:56 02:25 Temp 36.1 36.0 Pulse 128 110 Resp 24 B/P (MAP) 101/83 (89) Pulse Ox 96 96 O2 Delivery Nasal Cannula Nasal Cannula O2 Flow Rate 1.00 1.00 08/15/21 08/15/21 08/15/21 08/15/21 04:00 07:00 07:51 08:10 Temp 36.6 36.1 Pulse 122 135 112 Resp 24 22 B/P (MAP) 115/81 (92) 127/89 (102) Pulse Ox 96 97 97 O2 Delivery Nasal Cannula Nasal Cannula Nasal Cannula O2 Flow Rate 1.00 1.00 1.00 08/15/21 09:53 Pulse Ox 97 O2 Delivery Nasal Cannula O2 Flow Rate 1.00 08/15/21 00:00 Intake Total 1400 ml Output Total 3275 ml Balance -1875 ml Weight (Pounds): 186 Weight (Ounces): 9.6 Weight (Calculated Kilograms): 84.697638 Constitutional: AAO x 3 Respiratory: No accessory muscle use, No respiratory distress; chest expansion is symmetric, chest is bilaterally symmetric Cardiovascular: irregularly irregular Gastrointestional: tender, audible bowel sounds Extremities: No swelling, No cyanosis, No significant edema Neurologic/Psychiatric: other (moves all her limbs equally) Skin: No rash on exposed areas, No ulcerations on exposed areas Results/Procedures: Labs Laboratory Tests 08/15/21 04:00: White Blood Count 10.6, Red Blood Count 2.41L, Hemoglobin 7.8L, Hematocrit 24L, Mean Corpuscular Volume 101H, Mean Corpuscular Hemoglobin 32, Mean Corpuscular Hemoglobin Concent 32, Red Cell Distribution Width 15.9H, Platelet Count 512H, Mean Platelet Volume 9.5, Immature Granulocyte % (Auto) 3, Neutrophils (%) (Auto) 81H, Lymphocytes (%) (Auto) 9L, Monocytes (%) (Auto) 8, Eosinophils (%) (Auto) 0, Basophils (%) (Auto) 0, Neutrophils # (Auto) 8.5H, Lymphocytes # ( Auto) 0.9L, Monocytes # (Auto) 0.8, Eosinophils # (Auto) 0.0, Basophils # (Auto) 0.0, Immature Granulocyte # (Auto) 0.3H, Sodium Level 136, Potassium Level 3.2L, Chloride Level 105, Carbon Dioxide Level 21, Anion Gap 10, Blood Urea Nitrogen 5L, Creatinine 0.55L, Estimat Glomerular Filtration Rate 95, BUN/Creatinine Ratio 9, Glucose Level 105, Calcium Level 7.4L, Corrected Calcium 8.8, Total Bilirubin 0.7, Aspartate Amino Transf (AST/SGOT) 32, Alanine Aminotransferase (ALT/SGPT) 31, Alkaline Phosphatase 63, Total Protein 4.2L, Albumin 2.2L Microbiology 08/07/21 Gram Stain - Final, Complete 08/07/21 Sputum Culture - Final, Complete Usual upper respiratory erika YEAST Gram Negative Bacillus 1 08/06/21 Blood Culture - Final, Complete No growth Laboratory Tests 08/14/21 04:00 08/15/21 04:00 A/P: Assessment: Acute necrotizing pancreatitis with possible pseudocyst, questionable perforation - Managed by surgery/medical services - Awaiting possible transfer to a tertiary care center - management per medical services Abdominal pain - secondary to above Hypokalemia PAF - Atrial fibrillation with rapid ventricular response. - OAC currently being withheld - resume JONNIE d/t risk of CVA when deemed safe per medical/surgical services CAD - Mild coronary artery disease per cardiac catheterization done in August 2017. - Last stress test was done in March 2021 showing no evidence of active ischemia. Ejection fraction 68%. - Echocardiogram was done in March 2021 showing normal LV size with EF 60 to 65%, mildly dilated left atrium, mitral regurgitation, bicuspid morphology of the aortic valve, aortic valve sclerosis. Hyperlipidemia - statin tx - managed by PCP Tobaccoism - cessation advised Obstructive sleep apnea - CPAP txFam h/o Surgical hx - H/o cholecystectomy, appendectomy and two groin hernia surgeries Carotid arterial disease - Carotid u/s of 03/10/21 showed 60 -79% R ICA and less than 40% L ICA stenosis L pulm mass removal on 06/16/17 at [facility] - (neuroendocrine carcinoma), being followed by [facility] Plan: Continue current regimen Replace electrolytes as needed OAC currently being held d/t risk of bleeding - advise resumption as soon as deemed safe per Surgical/Medical services Monitor lab closely TABITHA FORTE MD FACP [facility] CCDS Aug 15, 2021 10:11
--- NOTE | 2021-08-15 10:24 | Diagnostic Imaging Report ---
INDICATION: Dyspnea. TIME OF EXAM: 10:18 AM Correlation is made with prior chest from 08/13/2021. FINDINGS: Heart size stable. Right upper extremity PICC line is tip overlying SVC. Continued congestive changes bilateral infiltrates and left-sided effusion persist. Right upper lobe infiltrate persists. There is no pneumothorax. IMPRESSION: Continued bilateral infiltrates and left effusion, similar to examination 2 days earlier. Dictated by: Dictated on workstation # [id number]
[2021-08-15] MEDS ORDERED: FUROSEMIDE 40 MG/4 ML INJ (LASIX) IVP NR (11:10)
[2021-08-15 11:53] VITALS: BP 133/70
--- NOTE | 2021-08-15 13:41 | Occupational Therapy Eval ---
OT Evaluation-General/PLF Medical Diagnosis Admission Date Aug 06, 2021 at 05:35 Medical Diagnosis: Acute pancreatitis Onset Date: Aug 06, 2021 Therapy Diagnosis Therapy Diagnosis: reduced adl status Height/Weight Height (Feet): 5 Height (Inches): 5.00 Weight (Pounds): 186 Weight (Ounces): 9.6 Precautions Precautions/Isolations: Fall Prevention, Standard Precautions Referral Referral Reason: Evaluation/Treatment Medical History Pertinent Medical History: Atrial Fib, CAD, COPD, Smoking Additional Medical History hyperlipidemia, Current History Arrived to ER with c/c of abdominal pain. Found to have acute pancreatitis Reviewed History: Yes Social History Home: Single Level Current Living Status: Alone Entry Into Home: Level Entry Lives alone in senior housing. Indep with adls and iadls prior to admission. 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 Still drives. ADL-Prior Level of Function SCALE: Activities may be completed with or without assistive devices. 9-Qaoxtbxbos-ocprnkl completes the activity by him/herself with no assistance from a helper. 5-Set-up or Clean-up Assistance-helper sets up or cleans up; patient completes activity. [place] assists only prior to or following the activity. 4-Supervision or Touching Assistance-helper provides verbal cues and/or touching/steadying and/or contact guard assistance as patient completes activity. Assistance may be provided throughout the activity or intermittently. 3-Partial/Moderate Assistance-helper does LESS THAN HALF the effort. [place] lifts, holds or supports trunk or limbs, but provides less than half the effort. 2-Substantial/Maximal Assistance-helper does MORE THAN HALF the effort. [place] lifts or holds trunk or limbs and provides more than half the effort. 4-Xnagthhre-knwpei does ALL the effort. Patient does none of the effort to complete the activity. Or, the assistance of 2 or more helpers is required for the patient to complete the activity. If activity was not attempted, code reason: 7-Patient Refused. 9-Not Applicable-not attempted and the patient did not perform the activity before the current illness, exacerbation or injury. 10-Not Attempted due to Environmental Limitations-(lack of equipment, weather restraints, etc.). 88-Not Attempted due to Medical Conditions or Safety Concerns. Self Care: Independent Functional Cognition: Independent DME/Equipment: Grab Bars, Shower Drive Self: Yes OT Current Status Subjective Reports 6/10 back pain Appearance Left supine in bed, all needs within reach at OT departure. Mental Status/Objective Patient Orientation: Person, Place, Situation Attachments: Decker Catheter, IV, Oxygen, Telemetry Current Glasses/Contacts: Yes Hearing Aids: No Hand Dominance: Left Upper Extremity ROM WFL Upper Extremity Strength Not formally tested secondary to c/o back pain. Appears at least 3+/5 throughout ADL-Treatment Eating (QC): 4 Oral Hygiene (QC): 4 Toileting Hygiene (QC): 1 (decker catheter) Pt sitting upright in bed eating lunch at therapy arrival. Every time pt takes a bite of food, she desats to mid 70's. When taking breaks from eating, her oxygen quickly increases to high 80's. Pt not appropriate to sit EOB at this time secondary to resting heart rate in the 150's. Grooming tasks completed at bed level with set up. OT to continue to assess out of bed adls next session if medically appropriate. Education OT Patient Education: Purpose of tx/functional activities, Safety issues Teaching Recipient: Patient Teaching Methods: Discussion Response to Teaching: Verbalize Understanding OT Nursing Home Goals Physicians Assistant Goals Time Frame: Aug 30, 2021 Eating (QC): 6 Oral Hygiene (QC): 5 Toileting Hygiene (QC): 4 Shower/Bathe Self (QC): 4 Upper Body Dressing (QC): 4 Lower Body Dressing (QC): 4 On/Off Footwear (QC): 4 1=Demonstrate adherence to instructed precautions during ADL tasks. 2=Patient will verbalize/demonstrate understanding of assistive devices/modifications for ADL. 3=Patient will improve strength/tolerance for activity to enable patient to perform ADL's. OT Education/Plan Problem List/Assessment Assessment: Decreased Activ Tolerance, Decreased UE Strength, Impaired I ADL's, Impaired Self-Care Skills Discharge Recommendations Plan/Recommendations: Continue POC Comment ongoing assessment Treatment Plan/Plan of Care Treatment,Training & Education: Yes Patient would benefit from OT for education, treatment and training to promote independence in ADL's, mobility, safety and/or upper extremity function for ADL's. Plan of Care: ADL Retraining, Functional Mobility, UE Funct Exercise/Act Treatment Duration: Aug 30, 2021 Frequency: 3 times per week Estimated Hrs Per Day: .25 hour per day Agreement: Yes Time/GCodes Start Time: 13:23 Stop Time: 13:33 Total Time Billed (hr/min): 10 Billed Treatment Time 1 visit Sherrell Lorenzo OT Aug 15, 2021 13:41
--- NOTE | 2021-08-15 14:42 | Physical Therapy Evaluation ---
PT Evaluation-General Medical Diagnosis Admission Date Aug 06, 2021 at 05:35 Medical Diagnosis: Acute pancreatitis Onset Date: Aug 06, 2021 Therapy Diagnosis Therapy Diagnosis: severe weakness/debility Height/Weight Height (Feet): 5 Height (Inches): 5.00 Weight (Pounds): 186 Weight (Ounces): 9.6 Precautions Precautions/Isolations: Fall Prevention, Standard Precautions Referral Physician: Lisa Reason for Referral: Evaluation/Treatment Medical History Pertinent Medical History: Atrial Fib, CAD, COPD, Smoking Additional Medical History lung cancer Current History ER secondary to abdominal pain Reviewed History: Yes Social History Home: Apartment Current Living Status: Alone Entry Into Home: Level Entry Prior Prior Level of Function SCALE: Activities may be completed with or without assistive devices. 2-Vrapgaagsr-uupblqs completes the activity by him/herself with no assistance from a helper. 5-Set-up or Clean-up Assistance-helper sets up or cleans up; patient completes activity. [place] assists only prior to or following the activity. 4-Supervision or Touching Assistance-helper provides verbal cues and/or amaury hunter/steadying and/or contact guard assistance as patient completes activity. Assistance may be provided throughout the activity or intermittently. 3-Partial/Moderate Assistance-helper does LESS THAN HALF the effort. [place] lifts, holds or supports trunk or limbs, but provides less than half the effort. 2-Substantial/Maximal Assistance-helper does MORE THAN HALF the effort. [place] lifts or holds trunk or limbs and provides more than half the effort. 9-Xzgifxiwa-jelkkq does ALL the effort. Patient does none of the effort to complete the activity. Or, the assistance of 2 or more helpers is required for the patient to complete the activity. If activity was not attempted, code reason: 7-Patient Refused. 9-Not Applicable-not attempted and the patient did not perform the activity before the current illness, exacerbation or injury. 10-Not Attempted due to Environmental Limitations-(lack of equipment, weather restraints, etc.). 88-Not Attempted due to Medical Conditions or Safety Concerns. Bed Mobility: 6 Transfers (B,C,W/C): 6 Gait: 6 Indoor Mobility (Ambulation): Independent Stairs: Independent Prior Devices Use: None PT Evaluation-Current Subjective Patient agrees to PT. Family present Objective Patient Orientation: Normal For Age Attachments: Oxygen, Henderson Catheter, IV ROM/Strength ROM Lower Extremities bilateral LE WFL Strength Lower Extremities 3-/5 grossly bilateral LE Integumentary/Posture Bladder Incontinence: Henderson Cath Neuromuscular (Tone, Coordination, Reflexes) grossly intact Sensory Vision: Functional Hearing: Functional Hand Dominance: Left Transfers Roll Left to Right (QC): 2 Attempted to sit EOB, however, patient SAO2 decreased to 65% and patient c/o dizziness. Treatment RN called into room due to patient increase SOA, dizziness and decreased SAO2. Patient slowly recovered and was repositioned up in bed by PT. Assessment/Needs 76 y.o. female, will be seen by skilled PT to address functional strength and eventually, functional mobility. Patient is severely deconditioned and SAO2 decreases significantly with minimal activity. Rehab Potential: Guarded PT Lead Technical Architect Goals Lead Technical Architect Goals PT Fpc Goals Time Frame: Aug 30, 2021 Roll Left & Right (QC): 4 Sit to Lying (QC): 4 Lying-Sitting on Side/Bed(QC): 4 Sit to Stand (QC): 4 Chair/Jek-de-Kpass Xfer(QC): 4 Walk 10 feet (QC): 3 PT Plan Problem List Problem List: Activity Tolerance, Functional Strength, Safety, Balance, Gait, Transfer, Bed Mobility Treatment/Plan Treatment Plan: Continue Plan of Care Treatment Plan: Bed Mobility, Education, Functional Activity Serena, Functional Strength, Gait, Safety, Therapeutic Exercise, Transfers Treatment Duration: Aug 30, 2021 Frequency: 6 times per week Estimated Hrs Per Day: .25 hour per day Patient and/or Family Agrees t: Yes Time/GCodes Time In: 1358 Time Out: 1410 Total Billed Treatment Time: 12 Total Billed Treatment 1 visit [facility] 12 min SARANYA GONZALEZ PT Aug 15, 2021 14:42
[2021-08-15 16:00] VITALS: BP 118/58
[2021-08-15 20:00] VITALS: BP 129/99
[2021-08-16] VITALS: BP 154/98
[2021-08-16] MEDS: RT-ALBUTEROL/IPRATROPIUM 3 ML (DUONEB) VIAL INH SCH ×6 (02:19→22:13)
[2021-08-16] MEDS: PIPERACILLIN SODIUM/TAZOBACTAM 4.5 GM in NS (IVPB) 100 ML IV SCH ×3 (03:47→18:52)
[2021-08-16 03:49] VITALS: BP 150/91
[2021-08-16] MEDS: meTOprolol 5 MG/5 ML (LOPRESSOR) VIAL IV SCH ×3 (05:51→17:55)
--- NOTE | 2021-08-16 05:57 | Progress Note - Hospitalist ---
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 of Systems Pulmonary: Dyspnea Cardiovascular: Edema Objective Exam Vital Signs Vital Signs Date Time Temp Pulse Resp B/P (MAP) Pulse Ox O2 Delivery O2 Flow Rate FiO2 08/17/21 02:32 97 Nasal Cannula 2.00 08/17/21 01:00 114 08/17/21 00:46 36.4 16 142/83 (102) 08/13/21 15:33 1 Capillary Refill : Less Than 3 Seconds General Appearance: Anxious, Chronically ill, Mild Distress Respiratory: No Respiratory Distress, Accessory Muscle Use, Decreased Breath Sounds, Wheezing Cardiovascular: Regular Rate, Rhythm, Tachycardia Extremity: Pedal Edema Neurologic/Psychiatric: Alert, Oriented x3, No Motor/Sensory Deficits, Normal Mood/Affect Results/Procedures Lab Laboratory Tests 08/16/21 05:45 Patient resulted labs reviewed. Imaging: Reviewed Imaging Report Assessment/Plan Assessment and Plan Assess & Plan/Chief Complaint Assessment: Necrotizing pancreatitis A. fib with tachycardia Fluid overload Dyspnea Smoker COPD Plan: Appreciate cardiology Telemetry to maintain Continue diuresis Patient appears to be very debilitated DANIEL THOMPSON DO Aug 16, 2021 05:57
[2021-08-16 06:06] LABS: BASOPHILS % (AUTO) 0 % (0-10); EOSINOPHILS # (AUTO) 0.1 10^3/uL (0.0-0.3); EOSINOPHILS % (AUTO) 1 % (0-10); HEMATOCRIT 26 % (35-52); HEMOGLOBIN 8.3 g/dL (11.5-16.0); LYMPHOCYTES # (AUTO) 0.8 10^3/uL (1.0-4.0); LYMPHOCYTES % (AUTO) 9 % (12-44); MEAN CORPUSCULAR HEMOGLOBIN 33 pg (25-34); MEAN CORPUSCULAR HGB CONC 32 g/dL (32-36); MEAN CORPUSCULAR VOLUME 102 fL (80-99); MEAN PLATELET VOLUME 9.2 fL (9.0-12.2); MONOCYTES # (AUTO) 0.8 10^3/uL (0.0-1.0); MONOCYTES % (AUTO) 8 % (0-12); NEUTROPHILS # (AUTO) 7.7 10^3/uL (1.8-7.8); NEUTROPHILS % (AUTO) 80 % (42-75); PLATELET COUNT 536 10^3/uL (130-400); WHITE BLOOD COUNT 9.6 10^3/uL (4.3-11.0)
[2021-08-16 06:25] LABS: ALBUMIN 2.4 GM/DL (3.2-4.5); POTASSIUM 3.4 MMOL/L (3.6-5.0)
[2021-08-16 06:26] LABS: CALCIUM 7.7 MG/DL (8.5-10.1)
[2021-08-16 06:28] LABS: TOTAL PROTEIN 4.7 GM/DL (6.4-8.2)
[2021-08-16 06:29] LABS: BILIRUBIN,TOTAL 0.6 MG/DL (0.1-1.0)
[2021-08-16 06:31] LABS: CREATININE SERUM 0.55 MG/DL (0.60-1.30)
[2021-08-16 06:34] LABS: MAGNESIUM 1.8 MG/DL (1.6-2.4)
[2021-08-16 07:45] VITALS: BP 138/88
[2021-08-16] MEDS: NICOTINE PATCH REMOVAL TP SCH (08:10)
[2021-08-16] MEDS: polyethylene glycoL POWDER 17 GM (MIRALAX) PACK PO SCH ×2 (08:10→21:30)
[2021-08-16] MEDS: NICOTINE 14 MG (NICODERM) PATCH TD SCH (08:11)
[2021-08-16] MEDS: LIDOCAINE 4% (SALONPAS) PATCH TOP SCH (08:11)
[2021-08-16] MEDS: PANTOPRAZOLE 40 MG (PROTONIX) VIAL IV SCH (09:06)
[2021-08-16] MEDS: DIGOXIN 0.25 MG/ML (LANOXIN) 2 ML AMP IV SCH (09:06)
--- NOTE | 2021-08-16 09:39 | Progress Note - Surgery ---
WILYSUZAN MED STUDENT 08/16/21 0939: Subjective Date Seen by a Provider: Aug 16, 2021 Time Seen by a Provider: 08:10 Subjective/Events-last exam Patient is awake this morning and sitting up in bed. Daughter is also present. Pt states that she feels SOB this morning, she has been feeling this way for a while and she does have infiltrates in her lungs on CXR yesterday. No nausea or vomiting. Is eating and drinking okay. Edema in feet is much improved. LBM this morning. Daughter is concerned that pt is feeling tired all the time and is sleeping most of the day. Also states pt is a bit confused at times. She is alert and oriented x3 this morning though. Review of Systems General: No Chills HEENT: No Head Aches, No Visual Changes Pulmonary: Dyspnea; No Cough Cardiovascular: Edema; No: Chest Pain, Palpitations Gastrointestinal: No: Nausea, Vomiting, Abdominal Pain, Diarrhea, Constipation, Melena Genitourinary: No Dysuria, No Incontinence, No Hematuria Musculoskeletal: No: leg pain, foot pain Neurological: Confusion Objective Exam Vital Signs Date Time Temp Pulse Resp B/P (MAP) Pulse Ox O2 Delivery O2 Flow Rate FiO2 08/16/21 08:12 95 Nasal Cannula 1.00 08/16/21 07:45 36.1 98 22 138/88 (105) 94 Nasal Cannula 1.00 08/16/21 07:00 60 08/16/21 03:49 115 22 150/91 (110) 96 Nasal Cannula 1.00 08/16/21 03:48 36.2 08/16/21 02:19 100 Nasal Cannula 1.00 08/16/21 01:00 103 08/16/21 00:53 36.4 08/16/21 00:00 120 37 154/98 (116) 96 Nasal Cannula 1.00 08/15/21 22:50 36.7 08/15/21 22:47 96 Nasal Cannula 1.00 08/15/21 20:38 97 Nasal Cannula 1.00 08/15/21 20:00 130 25 129/99 (109) 94 Nasal Cannula 1.00 08/15/21 19:38 37.0 08/15/21 19:00 137 08/15/21 18:57 99 Nasal Cannula 1.00 08/15/21 16:00 37.2 117 24 118/58 (78) 93 Nasal Cannula 1.00 08/15/21 14:50 Nasal Cannula 1.00 08/15/21 14:49 99 Nasal Cannula 2.00 08/15/21 13:00 113 08/15/21 11:53 36.2 136 21 133/70 (91) 97 Nasal Cannula 1.00 08/15/21 09:53 97 Nasal Cannula 1.00 I & O 08/16/21 07:00 Intake Total 1700 ml Output Total 4300 ml Balance -2600 ml Capillary Refill : Less Than 3 Seconds General Appearance: Chronically ill, Other (Pt appears a bit uncomfortable and has a bit increased work of breathing) HEENT: PERRL/EOMI, Pharynx Normal Respiratory: Chest Non Tender, Crackles, Decreased Breath Sounds, Wheezing (inspiratory), Other (appears to have a bit increased work of breathing) Cardiovascular: No Regular Rate, Rhythm; No Murmur, Irregularly Irregular, Other (bilateral pitting edema 1+) Peripheral Pulses: 2+ Dorsalis Pedis (R), 2+ Left Dors-Pedis (L), 2+ Radial Pulses (R), 2+ Radial Pulses (L) Gastrointestinal: non tender, soft; No distended, No tenderness Extremity: Normal Inspection, Non Tender, Pedal Edema Neurologic/Psychiatric: Alert, Oriented x3, Normal Mood/Affect Skin: Normal Color, Warm/Dry Results Lab Laboratory Tests 08/15/21 11:00: Iron Level 40, Total Iron Binding Capacity 129L, Unsaturated Iron Binding Capacity 89, Transferrin % Saturation 31, Ferritin 544.0H 08/16/21 05:45: White Blood Count 9.6, Red Blood Count 2.55L, Hemoglobin 8.3L, Hematocrit 26L, Mean Corpuscular Volume 102H, Mean Corpuscular Hemoglobin 33, Mean Corpuscular Hemoglobin Concent 32, Red Cell Distribution Width 16.2H, Platelet Count 536H, Mean Platelet Volume 9.2, Immature Granulocyte % (Auto) 2, Neutrophils (%) (Auto) 80H, Lymphocytes (%) (Auto) 9L, Monocytes (%) (Auto) 8, Eosinophils (%) (Auto) 1, Basophils (%) (Auto) 0, Neutrophils # (Auto) 7.7, Lymphocytes # (Auto) 0.8L, Monocytes # (Auto) 0.8, Eosinophils # (Auto) 0.1, Basophils # (Auto) 0.0, Immature Granulocyte # (Auto) 0.2H, Sodium Level 137, Potassium Level 3.4L, Chloride Level 104, Carbon Dioxide Level 24, Anion Gap 9, Blood Urea Nitrogen 5L , Creatinine 0.55L, Estimat Glomerular Filtration Rate 95, BUN/Creatinine Ratio 9, Glucose Level 110H, Calcium Level 7.7L, Corrected Calcium 9.0, Magnesium Level 1.8, Total Bilirubin 0.6, Aspartate Amino Transf (AST/SGOT) 35H, Alanine Aminotransferase (ALT/SGPT) 33, Alkaline Phosphatase 64, Total Protein 4.7L, Albumin 2.4L, Digoxin Level 0.98 Microbiology 08/07/21 Gram Stain - Final, Complete 08/07/21 Sputum Culture - Final, Complete Usual upper respiratory erika YEAST Gram Negative Bacillus 1 08/06/21 Blood Culture - Final, Complete No growth Assessment/Plan Assessment/Plan Assessment/Plan necrotizing pancreatitis/acute pancreatitis. b/l infiltrates Epigastric abd pain afib rvr Hypokalemia Pt is not having any abdominal pain this morning. Labs not concerning for worsening of pancreatitis. Continue with current abx. She is using I/S. Lung sounds were poor this morning but not sure how they compare to previous day. Continue to monitor her breathing, she is getting breathing treatments but she feels like its harder to breath. No new CXR this morining. May need increase in O2 at some point. She has dieuresed about 8L of fluid in the last 2 days and is continuing more today, this should help with her breathing. She is not having pain today but has pain meds if she needs. Potassium is barely below normal and can be easily supplemented. No indication for surgery at this time but will continue to monitor. HR ~115 this morning. Is on amiodarone. Surgery not indicated at this time. LUPE KELLY DO 08/16/21 1241: Subjective Time Seen by a Provider: 10:25 Subjective/Events-last exam Pt seen and examined, complains of trouble breathing and weakness/tired. Daughter states she is so tired because they have been coming in to do PT and b reathing treatments. Pt denies abd pain. Review of Systems General: Fatigue, Malaise HEENT: No Head Aches, No Visual Changes Pulmonary: Dyspnea; No Cough Cardiovascular: No: Chest Pain, Palpitations Gastrointestinal: No: Nausea, Vomiting, Abdominal Pain Objective Exam General Appearance: Chronically ill, Other (Pt appears a bit uncomfortable and has a bit increased work of breathing) Respiratory: Chest Non Tender, Crackles, Decreased Breath Sounds, Wheezing (inspiratory), Other (appears to have a bit increased work of breathing) Cardiovascular: No Murmur, Irregularly Irregular, Other (bilateral pitting edema 1+) Gastrointestinal: non tender, soft; No distended Extremity: Pedal Edema Assessment/Plan Assessment/Plan Assessment/Plan B/L infiltrates CHF Necrotizing pancreatitis - resolved Afib with RVR Hypokalemia Pt is not having any abdominal pain this morning. Labs not concerning for worsening of pancreatitis. Continue with current abx. She is using I/S. Lung krystyna nds were poor this morning but not sure how they compare to previous day. Continue to monitor her breathing, she is getting breathing treatments and Lasix but she feels like its harder to breath. No new CXR this morining. May need increase in O2 at some point. She has diuresed about 8L of fluid in the last 2 days and is continuing more today, this should help with her breathing. She is not having pain today but has pain meds if she needs. Potassium is barely below normal and can be easily supplemented. No indication for surgery at this time but will continue to monitor. HR ~115 this morning. Is on amiodarone. Supervisory-Addendum Brief Verification & Attestation Participated in pt care: history, MDM, physical Personally performed: exam, history, MDM, supervision of care Care discussed with: Medical Student Procedures: n/a Verification and Attestation of Medical Student E/M Service A medical student performed and documented this service. I then reviewed and verified all information documented by the medical student and made modifications to such information, when appropriate. I personally performed a physical exam, medical decision making and then discussed any differences between the notes and made revisions as necessary to create one note. Lupe Kelly , 08/16/21 , 12:41 SUZAN JULIEN MED STUDENT Aug 16, 2021 09:39 LUPE KELLY DO Aug 16, 2021 12:41
[2021-08-16 11:19] VITALS: BP 127/91
--- NOTE | 2021-08-16 13:02 | Physical Therapy Daily Note ---
PT Daily Note-Current Subjective Pt willing to attempt PT. She is worried about becoming short of air. Transfers SCALE: Activities may be completed with or without assistive devices. 7-Sngctmtdvq-hoxufgk completes the activity by him/herself with no assistance from a helper. 5-Set-up or Clean-up Assistance-helper sets up or cleans up; patient completes activity. [place] assists only prior to or following the activity. 4-Supervision or Touching Assistance-helper provides verbal cues and/or touching/steadying and/or contact guard assistance as patient completes activity. Assistance may be provided throughout the activity or intermittently. 3-Partial/Moderate Assistance-helper does LESS THAN HALF the effort. [place] lifts, holds or supports trunk or limbs, but provides less than half the effort. 2-Substantial/Maximal Assistance-helper does MORE THAN HALF the effort. [place] lifts or holds trunk or limbs and provides more than half the effort. 0-Aykgifrtm-mtqbmg does ALL the effort. Patient does none of the effort to complete the activity. Or, the assistance of 2 or more helpers is required for the patient to complete the activity. If activity was not attempted, code reason: 7-Patient Refused. 9-Not Applicable-not attempted and the patient did not perform the activity before the current illness, exacerbation or injury. 10-Not Attempted due to Environmental Limitations-(lack of equipment, weather restraints, etc.). 88-Not Attempted due to Medical Conditions or Safety Concerns. Supine to sit Mod A; sat at eob x 5 minutes; Sats ranged from 96-88%. Pt had no sign of dizziness. Exercises Supine Ex: Ankle pumps, Quad Set, Glut sets, Heel Slides, Straight leg raise, Hip abd/add Supine Reps: 10 PT Engine Assembler Goals Half-Way Goals PT Half-Way Goals Time Frame: Aug 30, 2021 Roll Left & Right (QC): 4 Sit to Lying (QC): 4 Lying-Sitting on Side/Bed(QC): 4 Sit to Stand (QC): 4 Chair/Qbm-rd-Sdapj Xfer(QC): 4 Walk 10 feet (QC): 3 PT Plan Treatment/Plan Treatment Plan: Continue Plan of Care Treatment Plan: Bed Mobility, Education, Functional Activity Serena, Functional Strength, Gait, Safety, Therapeutic Exercise, Transfers Treatment Duration: Aug 30, 2021 Frequency: 6 times per week Estimated Hrs Per Day: .25 hour per day Patient and/or Family Agrees t: Yes Time/GCodes Time In: 929 Time Out: 944 Total Billed Treatment Time: 15 Total Billed Treatment visit, ex 15 min LADAN GONZALEZ PT Aug 16, 2021 13:02
--- NOTE | 2021-08-16 16:07 | Progress Note - Cardiology ---
Cardiology SOAP Progress Note Subjective: Gen weakness and malaise modestly improved No cp or palp or syncope No n/v Objective: I&O/Vital Signs 08/16/21 08/16/21 08/16/21 08/16/21 07:00 07:45 08:12 09:00 Temp 36.1 Pulse 60 98 Resp 22 B/P (MAP) 138/88 (105) Pulse Ox 94 95 97 O2 Delivery Nasal Cannula Nasal Cannula Nasal Cannula O2 Flow Rate 1.00 1.00 1.00 08/16/21 08/16/21 08/16/21 08/16/21 11:07 11:19 12:39 15:16 Temp 36.1 Pulse 108 76 Resp 26 B/P (MAP) 127/91 (103) Pulse Ox 96 97 97 O2 Delivery Nasal Cannula Nasal Cannula Nasal Cannula O2 Flow Rate 1.00 1.00 1.00 08/16/21 00:00 Intake Total 1200 ml Output Total 2950 ml Balance -1750 ml Weight (Pounds): 186 Weight (Ounces): 9.6 Weight (Calculated Kilograms): 84.475459 Constitutional: AAO x 3 Respiratory: No accessory muscle use, No respiratory distress; chest expansion is symmetric, chest is bilaterally symmetric Cardiovascular: irregularly irregular Gastrointestional: tender, audible bowel sounds Extremities: No swelling, No cyanosis, No significant edema Neurologic/Psychiatric: other (moves all her limbs equally) Skin: No rash on exposed areas, No ulcerations on exposed areas Results/Procedures: Labs Laboratory Tests 08/16/21 05:45: White Blood Count 9.6, Red Blood Count 2.55L, Hemoglobin 8.3L, Hematocrit 26L, Mean Corpuscular Volume 102H, Mean Corpuscular Hemoglobin 33, Mean Corpuscular Hemoglobin Concent 32, Red Cell Distribution Width 16.2H, Platelet Count 536H, Mean Platelet Volume 9.2, Immature Granulocyte % (Auto) 2, Neutrophils (%) (Auto) 80H, Lymphocytes (%) (Auto) 9L, Monocytes (%) (Auto) 8, Eosinophils (%) (Auto) 1, Basophils (%) (Auto) 0, Neutrophils # (Auto) 7.7, Lymphocytes # (Auto) 0.8L, Monocytes # (Auto) 0.8, Eosinophils # (Auto) 0.1, Basophils # (Auto) 0.0, Immature Granulocyte # (Auto) 0.2H, Sodium Level 137, Potassium Level 3.4L, Chloride Level 104, Carbon Dioxide Level 24, Anion Gap 9, Blood Urea Nitrogen 5L , Creatinine 0.55L, Estimat Glomerular Filtration Rate 95, BUN/Creatinine Ratio 9, Glucose Level 110H, Calcium Level 7.7L, Corrected Calcium 9.0, Magnesium Level 1.8, Total Bilirubin 0.6, Aspartate Amino Transf (AST/SGOT) 35H, Alanine Aminotransferase (ALT/SGPT) 33, Alkaline Phosphatase 64, Total Protein 4.7L, Albumin 2.4L, Digoxin Level 0.98 Microbiology 08/07/21 Gram Stain - Final, Complete 08/07/21 Sputum Culture - Final, Complete Usual upper respiratory erika YEAST Gram Negative Bacillus 1 08/06/21 Blood Culture - Final, Complete No growth Laboratory Tests 08/15/21 04:00 08/16/21 05:45 A/P: Assessment: Acute necrotizing pancreatitis with possible pseudocyst, questionable perforation - Managed by surgery/medical services - Awaiting possible transfer to a tertiary care center - management per medical services Abdominal pain - secondary to above Hypokalemia PAF - Atrial fibrillation with rapid ventricular response. - OAC currently being withheld - resume JONNIE d/t risk of CVA when deemed safe per medical/surgical services CAD - Mild coronary artery disease per cardiac catheterization done in August 2017. - Last stress test was done in March 2021 showing no evidence of active ischemia. Ejection fraction 68%. - Echocardiogram was done in March 2021 showing normal LV size with EF 60 to 65%, mildly dilated left atrium, mitral regurgitation, bicuspid morphology of the aortic valve, aortic valve sclerosis. Hyperlipidemia - statin tx - managed by PCP Tobaccoism - cessation advised Obstructive sleep apnea - CPAP txFam h/o Surgical hx - H/o cholecystectomy, appendectomy and two groin hernia surgeries Carotid arterial disease - Carotid u/s of 03/10/21 showed 60 -79% R ICA and less than 40% L ICA stenosis L pulm mass removal on 06/16/17 at [facility] - (neuroendocrine carcinoma), being followed by [facility] Plan: Continue current regimen Replace electrolytes as needed OAC currently being held d/t risk of bleeding - advise resumption as soon as deemed safe per Surgical/Medical services Monitor lab closely TABITHA FORTE MD FACP [facility] CCDS Aug 16, 2021 16:07
[2021-08-16] MEDS ORDERED: KCL 20 MEQ TAB (K-DUR) PO ONE (16:15)
[2021-08-16 16:39] VITALS: BP 132/98
[2021-08-16] MEDS: LACTATED RINGERS 1,000 ML IV SCH (18:00)
[2021-08-16 19:34] VITALS: BP 129/87
[2021-08-16] MEDS: PATCH REMOVAL TP SCH (21:30)
[2021-08-17] VITALS (7 sets, daily range): BP systolic 120–142; BP diastolic 74–87
[2021-08-17] MEDS: meTOprolol 5 MG/5 ML (LOPRESSOR) VIAL IV SCH ×4 (00:44→18:49)
[2021-08-17] MEDS: LACTATED RINGERS 1,000 ML IV SCH ×2 (01:30→12:19)
[2021-08-17] MEDS: RT-ALBUTEROL/IPRATROPIUM 3 ML (DUONEB) VIAL INH SCH ×6 (02:32→22:39)
[2021-08-17] MEDS: PIPERACILLIN SODIUM/TAZOBACTAM 4.5 GM in NS (IVPB) 100 ML IV SCH ×3 (02:47→18:50)
--- NOTE | 2021-08-17 06:13 | Progress Note - Hospitalist ---
Subjective HPI/CC On Admission Date Seen by Provider: Aug 17, 2021 Time Seen by Provider: 10:00 Subjective/Events-last exam Patient doing a bit better Lovenox will be started per Dr. Combs Hemoglobin 7.5 we will need to monitor that closely on Lovenox Replacing potassium 3.2 Chest x-ray reveals edema Slow progress Prognosis guarded Review of Systems Pulmonary: Dyspnea Gastrointestinal: Abdominal Pain Objective Exam Vital Signs Vital Signs Date Time Temp Pulse Resp B/P (MAP) Pulse Ox O2 Delivery O2 Flow Rate FiO2 08/18/21 04:00 71 16 127/99 (108) 95 Nasal Cannula 2.00 08/17/21 19:51 36.6 08/13/21 15:33 1 Capillary Refill : Less Than 3 Seconds General Appearance: No Apparent Distress, WD/WN, Chronically ill Respiratory: No Respiratory Distress, Accessory Muscle Use, Decreased Breath Sounds Cardiovascular: Regular Rate, Rhythm Neurologic/Psychiatric: Alert, Oriented x3, No Motor/Sensory Deficits, Depressed Affect Results/Procedures Lab Laboratory Tests 08/17/21 06:15 08/18/21 03:40 Patient resulted labs reviewed. Imaging: Reviewed Imaging Report Assessment/Plan Assessment and Plan Assess & Plan/Chief Complaint Assessment: Necrotizing pancreatitis A. fib with tachycardia Fluid overload Dyspnea Smoker COPD Plan: Appreciate cardiology Telemetry to maintain Continue diuresis Patient appears to be very debilitated 08/17/2021: Lovenox per cardiology Hemoglobin monitoring Slow progress Severe debilitation will be difficult to overcome DANIEL THOMPSON DO Aug 17, 2021 06:13
[2021-08-17 06:18] LABS: BASOPHILS % (AUTO) 0 % (0-10); EOSINOPHILS # (AUTO) 0.1 10^3/uL (0.0-0.3); EOSINOPHILS % (AUTO) 1 % (0-10); HEMATOCRIT 24 % (35-52); HEMOGLOBIN 7.5 g/dL (11.5-16.0); LYMPHOCYTES # (AUTO) 0.8 10^3/uL (1.0-4.0); LYMPHOCYTES % (AUTO) 11 % (12-44); MEAN CORPUSCULAR HEMOGLOBIN 32 pg (25-34); MEAN CORPUSCULAR HGB CONC 31 g/dL (32-36); MEAN CORPUSCULAR VOLUME 102 fL (80-99); MEAN PLATELET VOLUME 8.7 fL (9.0-12.2); MONOCYTES # (AUTO) 0.6 10^3/uL (0.0-1.0); MONOCYTES % (AUTO) 9 % (0-12); NEUTROPHILS # (AUTO) 5.5 10^3/uL (1.8-7.8); NEUTROPHILS % (AUTO) 78 % (42-75); PLATELET COUNT 468 10^3/uL (130-400)
[2021-08-17 06:31] LABS: ALBUMIN 2.2 GM/DL (3.2-4.5); POTASSIUM 3.2 MMOL/L (3.6-5.0)
[2021-08-17 06:33] LABS: CALCIUM 7.3 MG/DL (8.5-10.1)
[2021-08-17 06:34] LABS: TOTAL PROTEIN 4.4 GM/DL (6.4-8.2)
[2021-08-17 06:36] LABS: BILIRUBIN,TOTAL 0.5 MG/DL (0.1-1.0)
[2021-08-17 06:37] LABS: CREATININE SERUM 0.53 MG/DL (0.60-1.30)
--- NOTE | 2021-08-17 07:38 | Diagnostic Imaging Report ---
CHEST 1 VIEW, AP/PA ONLY Indication: Congestive heart failure Comparison: 08/15/2021 Findings: Unchanged perihilar and basilar pulmonary opacities. Small to moderate bilateral pleural effusions are unchanged. No pneumothorax. Stable cardiac enlargement. Stable right PICC. Impression: 1. Stable imaging features that support history of congestive heart failure with probable pulmonary edema and pleural effusions. Dictated by: Dictated on workstation # [id number]
[2021-08-17] MEDS: PANTOPRAZOLE 40 MG (PROTONIX) VIAL IV SCH (08:22)
[2021-08-17] MEDS: polyethylene glycoL POWDER 17 GM (MIRALAX) PACK PO SCH (08:23)
[2021-08-17] MEDS: NICOTINE 14 MG (NICODERM) PATCH TD SCH (08:23)
[2021-08-17] MEDS: DIGOXIN 0.25 MG/ML (LANOXIN) 2 ML AMP IV SCH (08:23)
[2021-08-17] MEDS: NICOTINE PATCH REMOVAL TP SCH (08:23)
[2021-08-17] MEDS: LIDOCAINE 4% (SALONPAS) PATCH TOP SCH (08:23)
[2021-08-17] MEDS ORDERED: polyethylene glycoL POWDER 17 GM (MIRALAX) PACK PO PRN (09:15)
--- NOTE | 2021-08-17 14:10 | Progress Note - Cardiology ---
Cardiology SOAP Progress Note Subjective: Malaise and weakness present Shortness of breath with activity No cp or palp R leg swelling No n/v/d Objective: I&O/Vital Signs 08/17/21 08/17/21 08/17/21 08/17/21 02:32 04:00 07:00 07:35 Temp 36.4 Pulse 89 68 Resp 16 B/P (MAP) 132/81 (98) Pulse Ox 97 96 96 O2 Delivery Nasal Cannula Nasal Cannula Nasal Cannula O2 Flow Rate 2.00 2.00 1.00 08/17/21 08/17/21 08/17/21 08/17/21 08:13 10:37 10:41 11:37 Temp 36.4 36.4 Pulse 105 113 Resp 20 20 B/P (MAP) 122/77 (92) 120/85 (97) Pulse Ox 94 98 93 O2 Delivery Nasal Cannula Nasal Cannula Room Air Nasal Cannula O2 Flow Rate 1.00 1.00 0.00 1.00 08/17/21 12:39 Pulse 74 08/17/21 00:00 Intake Total 1130 ml Output Total 2075 ml Balance -945 ml Weight (Pounds): 186 Weight (Ounces): 9.6 Weight (Calculated Kilograms): 84.285613 Constitutional: AAO x 3 Respiratory: No accessory muscle use, No respiratory distress; chest expansion is symmetric, chest is bilaterally symmetric Cardiovascular: irregularly irregular Gastrointestional: tender, audible bowel sounds Extremities: No swelling, No cyanosis, No significant edema Neurologic/Psychiatric: other (moves all her limbs equally) Skin: No rash on exposed areas, No ulcerations on exposed areas Results/Procedures: Labs Laboratory Tests 08/17/21 06:15: White Blood Count 7.0, Red Blood Count 2.35L, Hemoglobin 7.5L, Hematocrit 24L, Mean Corpuscular Volume 102H, Mean Corpuscular Hemoglobin 32, Mean Corpuscular Hemoglobin Concent 31L, Red Cell Distribution Width 16.6H, Platelet Count 468H, Mean Platelet Volume 8.7L, Immature Granulocyte % (Auto) 1, Neutrophils (%) (Auto) 78H, Lymphocytes (%) (Auto) 11L, Monocytes (%) (Auto) 9, Eosinophils (%) (Auto) 1, Basophils (%) (Auto) 0, Neutrophils # (Auto) 5.5, Lymphocytes # (Auto) 0.8L, Monocytes # (Auto) 0.6, Eosinophils # (Auto) 0.1, Basophils # (Auto) 0.0, Immature Granulocyte # (Auto) 0.1, Sodium Level 145, Potassium Level 3.2L, Chloride Level 107, Carbon Dioxide Level 23, Anion Gap 15H, Blood Urea Nitrogen 6L, Creatinine 0.53L, Estimat Glomerular Filtration Rate 96, BUN/Creatinine Ratio 11, Glucose Level 100, Calcium Level 7.3L, Corrected Calcium 8.7, Total Bilirubin 0.5, Aspartate Amino Transf (AST/SGOT) 27, Alanine Aminotransferase (ALT/SGPT) 27, Alkaline Phosphatase 56, Total Protein 4.4L, Albumin 2.2L Microbiology 08/07/21 Gram Stain - Final, Complete 08/07/21 Sputum Culture - Final, Complete Usual upper respiratory erika YEAST Gram Negative Bacillus 1 08/06/21 Blood Culture - Final, Complete No growth Laboratory Tests 08/16/21 05:45 08/17/21 06:15 A/P: Assessment: Acute necrotizing pancreatitis with possible pseudocyst, questionable perforation - Managed by surgery/medical services - Awaiting possible transfer to a tertiary care center - management per medical services Abdominal pain - secondary to above Hypokalemia PAF - Atrial fibrillation with rapid ventricular response. - OAC currently being withheld - resume JONNIE d/t risk of CVA when deemed safe per medical/surgical services Ac diastolic CHF due to A Fib with RVR CAD - Mild coronary artery disease per cardiac catheterization done in August 2017. - Last stress test was done in March 2021 showing no evidence of active ischemia. Ejection fraction 68%. - Echocardiogram was done in March 2021 showing normal LV size with EF 60 to 65%, mildly dilated left atrium, mitral regurgitation, bicuspid morphology of the aortic valve, aortic valve sclerosis. Hyperlipidemia - statin tx - managed by PCP Tobaccoism - cessation advised Obstructive sleep apnea - CPAP txFam h/o Surgical hx - H/o cholecystectomy, appendectomy and two groin hernia surgeries Carotid arterial disease - Carotid u/s of 03/10/21 showed 60 -79% R ICA and less than 40% L ICA stenosis L pulm mass removal on 06/16/17 at [facility] - (neuroendocrine carcinoma), being followed by [facility] Plan: Continue current regimen for rate control Repeat furosemide today Replace electrolytes as needed OAC currently being held d/t risk of bleeding - advise resumption as soon as deemed safe per Surgical/Medical services Enoxaparin for DVT prophylaxis if approved the Med Svce R leg venous Doppler to eval for DVT Monitor lab closely I spoke with her and daughter and answered their questions TABITHA FORTE MD FACP [facility]S Aug 17, 2021 14:10
[2021-08-17] MEDS ORDERED: FUROSEMIDE 40 MG/4 ML INJ (LASIX) IVP ONE (14:15)
[2021-08-17] MEDS ORDERED: KCL 20 MEQ TAB (K-DUR) PO ONE (14:15)
[2021-08-17] MEDS: KCL 20 MEQ TAB (K-DUR) PO SCH (21:10)
[2021-08-18] VITALS: BP 131/106
[2021-08-18] MEDS: meTOprolol 5 MG/5 ML (LOPRESSOR) VIAL IV SCH ×2 (00:24→05:52)
[2021-08-18] MEDS: RT-ALBUTEROL/IPRATROPIUM 3 ML (DUONEB) VIAL INH SCH ×6 (02:39→22:24)
[2021-08-18] MEDS: PIPERACILLIN SODIUM/TAZOBACTAM 4.5 GM in NS (IVPB) 100 ML IV SCH ×3 (03:36→19:44)
[2021-08-18 03:54] LABS: BASOPHILS % (AUTO) 1 % (0-10); EOSINOPHILS # (AUTO) 0.1 10^3/uL (0.0-0.3); EOSINOPHILS % (AUTO) 1 % (0-10); HEMATOCRIT 24 % (35-52); HEMOGLOBIN 7.7 g/dL (11.5-16.0); LYMPHOCYTES % (AUTO) 16 % (12-44); MEAN CORPUSCULAR HEMOGLOBIN 32 pg (25-34); MEAN CORPUSCULAR HGB CONC 32 g/dL (32-36); MEAN CORPUSCULAR VOLUME 103 fL (80-99); MEAN PLATELET VOLUME 8.7 fL (9.0-12.2); MONOCYTES # (AUTO) 0.7 10^3/uL (0.0-1.0); MONOCYTES % (AUTO) 11 % (0-12); NEUTROPHILS # (AUTO) 4.4 10^3/uL (1.8-7.8); NEUTROPHILS % (AUTO) 71 % (42-75); PLATELET COUNT 496 10^3/uL (130-400); WHITE BLOOD COUNT 6.3 10^3/uL (4.3-11.0)
[2021-08-18 04:00] VITALS: BP 127/99
[2021-08-18 04:05] LABS: ALBUMIN 2.3 GM/DL (3.2-4.5); POTASSIUM 3.9 MMOL/L (3.6-5.0)
[2021-08-18 04:06] LABS: CALCIUM 7.8 MG/DL (8.5-10.1)
[2021-08-18 04:07] LABS: TOTAL PROTEIN 4.2 GM/DL (6.4-8.2)
[2021-08-18 04:09] LABS: BILIRUBIN,TOTAL 0.4 MG/DL (0.1-1.0)
[2021-08-18 04:11] LABS: CREATININE SERUM 0.55 MG/DL (0.60-1.30)
--- NOTE | 2021-08-18 07:37 | Progress Note - Surgery ---
MAO ELLIS Sallie 08/18/21 0737: Subjective Date Seen by a Provider: Aug 18, 2021 Time Seen by a Provider: 07:32 Subjective/Events-last exam Ms. Arriaga was resting comfortably in bed today with he daughter at bedside. She denies any abdominal pain or back pain today. She denies additional nausea or vomiting. She says that her breathing is okay this morning and she has been doing her breathing treatments. She is still in AFib this morning. She still has a urinary catheter. The plan is to d/c to a SNF and then eventually to a rehab facility. The patient and her daughter are unsure of the timeline. Dr. Combs ordered a venous U/S of her right leg which was being done at the end of our visit. Review of Systems General: No Chills, No Fatigue HEENT: No Head Aches, No Visual Changes Pulmonary: Dyspnea, Cough Cardiovascular: No: Chest Pain, Palpitations Gastrointestinal: No: Nausea, Vomiting, Abdominal Pain, Diarrhea Musculoskeletal: No: back pain, leg pain Neurological: No: Weakness, Confusion Objective Exam Vital Signs Date Time Temp Pulse Resp B/P (MAP) Pulse Ox O2 Delivery O2 Flow Rate FiO2 08/18/21 04:00 71 16 127/99 (108) 95 Nasal Cannula 2.00 08/18/21 02:40 95 Nasal Cannula 1.00 08/18/21 01:00 98 08/18/21 00:00 99 15 131/106 (114) 92 Nasal Cannula 2.00 08/17/21 22:39 93 Room Air 08/17/21 21:30 86 21 93 Nasal Cannula 2.00 08/17/21 21:00 Nasal Cannula 1.00 08/17/21 19:51 36.6 87 21 128/76 (93) 93 08/17/21 19:09 95 Room Air 08/17/21 19:00 104 08/17/21 16:00 36.1 81 136/74 (94) 95 Nasal Cannula 1.00 08/17/21 12:39 74 08/17/21 11:37 36.4 113 20 120/85 (97) 93 Nasal Cannula 1.00 08/17/21 10:41 Room Air 0.00 08/17/21 10:37 98 Nasal Cannula 1.00 08/17/21 09:00 Nasal Cannula 1.00 08/17/21 08:13 36.4 105 20 122/77 (92) 94 Nasal Cannula 1.00 08/17/21 07:35 96 Nasal Cannula 1.00 I & O 08/18/21 06:59 Intake Total 875 ml Output Total 2975 ml Balance -2100 ml Capillary Refill : Less Than 3 Seconds General Appearance: No Apparent Distress, Chronically ill HEENT: PERRL/EOMI, Pale Conjunctivae (L), Pale Conjunctivae (R); No Scleral Icterus (L), No Scleral Icterus (R) Neck: Normal Inspection, Non Tender; No Lymphadenopathy (L), No Lymphadenopathy (R) Respiratory: Chest Non Tender, No Respiratory Distress, Decreased Breath Sounds, Rhonci (B/L), Wheezing (B/L) Cardiovascular: No Murmur, Normal Peripheral Pulses, Irregularly Irregular, Tachycardia Peripheral Pulses: 2+ Dorsalis Pedis (R), 2+ Left Dors-Pedis (L), 2+ Radial Pulses (R), 2+ Radial Pulses (L) Gastrointestinal: normal bowel sounds, non tender, soft; No distended; other (Patient reports abdomen is sore but not tender) Extremity: Normal Capillary Refill, Normal Inspection, Pedal Edema Neurologic/Psychiatric: Alert, Oriented x3, No Motor/Sensory Deficits, Normal Mood/Affect Skin: Normal Color, Warm/Dry Lymphatic: No Adenopathy (Head and neck) Results Lab Laboratory Tests 08/18/21 03:40: White Blood Count 6.3, Red Blood Count 2.38L, Hemoglobin 7.7L, Hematocrit 24L, Mean Corpuscular Volume 103H, Mean Corpuscular Hemoglobin 32, Mean Corpuscular Hemoglobin Concent 32, Red Cell Distribution Width 17.2H, Platelet Count 496H, Mean Platelet Volume 8.7L, Immature Granulocyte % (Auto) 1, Neutrophils (%) (Auto) 71, Lymphocytes (%) (Auto) 16, Monocytes (%) (Auto) 11, Eosinophils (%) (Auto) 1, Basophils (%) (Auto) 1, Neutrophils # (Auto) 4.4, Lymphocytes # (Auto) 1.0, Monocytes # (Auto) 0.7, Eosinophils # (Auto) 0.1, Basophils # (Auto) 0.0, Immature Granulocyte # (Auto) 0.1, Sodium Level 138, Potassium Level 3.9, Chloride Level 105, Carbon Dioxide Level 23, Anion Gap 10, Blood Urea Nitrogen 6L, Creatinine 0.55L, Estimat Glomerular Filtration Rate 95, BUN/Creatinine Ratio 11, Glucose Level 100, Calcium Level 7.8L, Corrected Calcium 9.2, Total Bilirubin 0.4, Aspartate Amino Transf (AST/SGOT) 28, Alanine Aminotransferase (ALT/SGPT) 28, Alkaline Phosphatase 65, Total Protein 4.2L, Albumin 2.3L Microbiology 08/07/21 Gram Stain - Final, Complete 08/07/21 Sputum Culture - Final, Complete Usual upper respiratory erika YEAST Gram Negative Bacillus 1 08/06/21 Blood Culture - Final, Complete No growth Assessment/Plan Assessment/Plan Assessment/Plan Assessment Pancreatitis, most likely acute pancreatitis - WBC trending down to 6.3 - Hgb at 7.7, order for enoxaparin pending. Monitor closely. Thrombocytosis - Platelet count at 496 today. Stable. Monitor Abdominal pain - No pain reported today. AFib with RVR - Cardiology consulted. On metoprolol, diltiazem, and digoxin. Bacteremia - C. perfringens. Lung consolidation r/o pneumonia - Breath sounds poor B/L - Patient using ICS and receiving breathing treatments - CXR showing continued small B/L pleural effusions Hypokalemia - Resolved Transaminitis - Resolved Hyperbilirubinemia - Resolved Hypertriglyceridemia Plan Continue diet and IV fluids. Continue Pip/Tazo. Monitor potassium. Continue to encourage ICS use, 10 times per hour if possible. Pain control as needed. h/o cholecystectomy and appendectomy. PICC line placed, CXR confirmed at tip of SVC. Surgery, if required, would need to be done at a tertiary care center. Patient improving with medical management. Daughter at bedside again this morning. The plan is to still continue with medical management; surgery is not indicated at this time D/c plan is a SNF followed by a rehab facility. Patient and her daughter want a facility in [place]. They said they are waiting on word from Dr. Gonzalez and social work as to the next steps. HALIMA MADRID DO 08/18/21 1039: Subjective Subjective/Events-last exam Tolerating diet. Breathing better and using IS. No abdominal pain. Planning for SNF. Denies n/v fever sweats chills or chest pain. Objective Exam General Appearance: No Apparent Distress, Chronically ill HEENT: PERRL/EOMI, Normal ENT Inspection Neck: Normal Inspection, Non Tender, Supple Respiratory: Chest Non Tender, No Respiratory Distress Cardiovascular: No JVD, Irregularly Irregular Gastrointestinal: non tender, soft; No distended Extremity: Normal Inspection, Pedal Edema Neurologic/Psychiatric: Alert, Oriented x3, No Motor/Sensory Deficits Skin: Normal Color, Warm/Dry Lymphatic: No Adenopathy (Head and neck) Assessment/Plan Assessment/Plan Assessment/Plan Pancreatitis, Thrombocytosis Abdominal pain AFib with RVR Bacteremia Lung consolidation r/o pneumonia Hypokalemia Transaminitis - Resolved Hyperbilirubinemia - Resolved Hypertriglyceridemia Patient tolerating diet. Diet as tolerates. No abdominal pain. Encouraged IS and working on breathing. Awaiting placement. Will sign off call if needed. Supervisory-Addendum Brief Verification & Attestation Participated in pt care: history, MDM, physical Personally performed: exam, history, MDM, supervision of care Care discussed with: Medical Student Procedures: n/a Results interpretation: Verified all documentation Verification and Attestation of Medical Student E/M Service A medical student performed and documented this service in my presence. I reviewed and verified all information documented by the medical student and made modifications to such information, when appropriate. I personally performed the physical exam and medical decision making. Halima Madrid, Aug 18, 2021,10:41 MAO ELLIS Aug 18, 2021 07:37 HALIMA MADRID DO Aug 18, 2021 10:39
[2021-08-18 08:00] VITALS: BP 129/101
--- NOTE | 2021-08-18 08:07 | Diagnostic Imaging Report ---
INDICATION: Right leg swelling/edema TECHNIQUE: Multiple real-time grayscale images were obtained over the right lower extremity in various projections, bilaterally. Additional duplex Doppler and color Doppler images were also obtained. CORRELATION STUDY: None FINDINGS: Color and grayscale sonographic images demonstrate no intraluminal defect within the visualized portion of the common femoral, superficial femoral and/or popliteal veins to suggest thrombus formation. These vessels demonstrate normal response to compression and augmentation. No soft tissue fluid collection. IMPRESSION: 1. Negative for deep venous thrombosis of the right leg. Dictated by: Dictated on workstation # [id number]
[2021-08-18] MEDS: LACTATED RINGERS 1,000 ML IV SCH (08:31)
[2021-08-18] MEDS: DIGOXIN 0.25 MG/ML (LANOXIN) 2 ML AMP IV SCH (08:31)
[2021-08-18] MEDS: PANTOPRAZOLE 40 MG (PROTONIX) TAB PO SCH (08:31)
[2021-08-18] MEDS: KCL 20 MEQ TAB (K-DUR) PO SCH ×2 (08:31→20:48)
--- NOTE | 2021-08-18 08:40 | Progress Note ---
Subjective Subjective PT IS A 76 Y/O FEMALE WHO IS KNOWN TO ME FROM CLINIC. SHE PRESENTED TO THE ER WITH ABDOMINAL PAIN, WAS DIAGNOSED WITH ACUTE PANCREATITIS - PT HAD DECLINE, DEVELOPED GROSSLY ELEVATED BILIRUBIN AT 10, DX WITH NECROTIZING PANCREATITIS, AND AFIB NOT RATE CONTROLLED, TRANSFERRED UP TO STEPDOWN UNIT. Review of Systems General: No Chills, No Fatigue HEENT: No Head Aches, No Visual Changes Pulmonary: Dyspnea, Cough Cardiovascular: No: Chest Pain, Palpitations Gastrointestinal: No: Nausea, Vomiting, Abdominal Pain, Diarrhea Genitourinary: No Dysuria, No Incontinence, No Hematuria Musculoskeletal: No: back pain, leg pain Neurological: No: Weakness, Confusion All Other Systems Reviewed All Other Systems Reviewed: Yes Objective Exam Vital Signs Vital Signs Date Time Temp Pulse Resp B/P (MAP) Pulse Ox O2 Delivery O2 Flow Rate FiO2 08/18/21 08:15 93 Room Air 0.00 08/18/21 08:00 36.1 92 18 129/101 (110) 94 Nasal Cannula 0.50 08/18/21 07:00 105 08/18/21 04:00 71 16 127/99 (108) 95 Nasal Cannula 2.00 08/18/21 02:40 95 Nasal Cannula 1.00 08/18/21 01:00 98 08/18/21 00:00 99 15 131/106 (114) 92 Nasal Cannula 2.00 08/17/21 22:39 93 Room Air 08/17/21 21:30 86 21 93 Nasal Cannula 2.00 08/17/21 21:00 Nasal Cannula 1.00 08/17/21 19:51 36.6 87 21 128/76 (93) 93 08/17/21 19:09 95 Room Air 08/17/21 19:00 104 08/17/21 16:00 36.1 81 136/74 (94) 95 Nasal Cannula 1.00 08/17/21 12:39 74 08/17/21 11:37 36.4 113 20 120/85 (97) 93 Nasal Cannula 1.00 08/17/21 10:41 Room Air 0.00 08/17/21 10:37 98 Nasal Cannula 1.00 08/17/21 09:00 Nasal Cannula 1.00 I & O 08/18/21 07:00 Intake Total 1025 ml Output Total 4975 ml Balance -3950 ml General Appearance: No Apparent Distress, Chronically ill Eyes: Bilateral Eye Normal Inspection, Bilateral Eye PERRL, Bilateral Eye EOMI HEENT: PERRL/EOMI, Pale Conjunctivae (L), Pale Conjunctivae (R); No Scleral Icterus (L), No Scleral Icterus (R) Neck: Normal Inspection, Non Tender; No Lymphadenopathy (L), No Lymphadenopathy (R) Respiratory: Chest Non Tender, No Respiratory Distress, Decreased Breath Sounds, Rhonci (B/L), Wheezing (B/L) Cardiovascular: No Murmur, Normal Peripheral Pulses, Irregularly Irregular, Tachycardia Gastrointestinal: Normal Bowel Sounds, Non Tender, Soft, Distended (SLIGHTLY) Rectal: Deferred Back: Normal Inspection, No Vertebral Tenderness Extremity: Normal Capillary Refill, Normal Inspection, Pedal Edema Neurologic/Psychiatric: Alert, Oriented x3, No Motor/Sensory Deficits, Normal Mood/Affect Skin: Normal Color, Warm/Dry Lymphatic: No Adenopathy (Head and neck) Results Lab Laboratory Tests 08/18/21 03:40: White Blood Count 6.3, Red Blood Count 2.38L, Hemoglobin 7.7L, Hematocrit 24L, Mean Corpuscular Volume 103H, Mean Corpuscular Hemoglobin 32, Mean Corpuscular Hemoglobin Concent 32, Red Cell Distribution Width 17.2H, Platelet Count 496H, Mean Platelet Volume 8.7L, Immature Granulocyte % (Auto) 1, Neutrophils (%) (Auto) 71, Lymphocytes (%) (Auto) 16, Monocytes (%) (Auto) 11, Eosinophils (%) (Auto) 1, Basophils (%) (Auto) 1, Neutrophils # (Auto) 4.4, Lymphocytes # (Auto) 1.0, Monocytes # (Auto) 0.7, Eosinophils # (Auto) 0.1, Basophils # (Auto) 0.0, Immature Granulocyte # (Auto) 0.1, Sodium Level 138, Potassium Level 3.9, Chloride Level 105, Carbon Dioxide Level 23, Anion Gap 10, Blood Urea Nitrogen 6L, Creatinine 0.55L, Estimat Glomerular Filtration Rate 95, BUN/Creatinine Ratio 11, Glucose Level 100, Calcium Level 7.8L, Corrected Calcium 9.2, Total Bilirubin 0.4, Aspartate Amino Transf (AST/SGOT) 28, Alanine Aminotransferase (ALT/SGPT) 28, Alkaline Phosphatase 65, Total Protein 4.2L, Albumin 2.3L Microbiology 1/6/22 Gram Stain - Final, Complete 08/07/21 Sputum Culture - Final, Complete Usual upper respiratory erika YEAST Gram Negative Bacillus 1 08/06/21 Blood Culture - Final, Complete No growth Assessment/Plan Assessment/Plan Admission Dx ACUTE PANCREATITIS EPIGASTRIC ABDOMINAL PAIN ELEVATED LIVER ENZYMES ELEVATED TRIGLYCERIDES HYPERTENSION ATRIAL FIBRILLATION - CHRONIC CHRONIC ANTICOAGULATION REFLUX Assessment and Plan ACUTE NECROTIZING PANCREATITIS SEPSIS EPIGASTRIC ABDOMINAL PAIN ELEVATED LIVER ENZYMES ELEVATED TRIGLYCERIDES HYPERTENSION ATRIAL FIBRILLATION - CHRONIC CHRONIC ANTICOAGULATION REFLUX GROGGY LACTIC ACIDOSIS COPD WITH EMPHYSEMA DYSPNEA SEPSIS DUE TO ACUTE NECROTIZING PANCREATITIS WITH EPIGASTRIC ABDOMINAL PAIN - NO LONGER APPEARS TO HAVE NECROTIZING PANCREAS, NO SURGICAL INTERVENTION NEEDED AT THIS TIME. - CONSULT TO SURGEON - BLOOD CULTURE - CLOSTRIDIUM PERFRINGENS - PT STARTED ON ZOSYN YESTERDAY EVENING AND FLAGYL THIS MORNING (08/07/2021) - IV ROCEPHIN INITIATED ON ADMISSION - STOPPED ON 08/06/2021 EVENING AND CHANGED TO ZOSYN - REPEAT CT SCAN BELOW - SURGEON OVERVIEW WITH ADDITIONAL RADIOLOGIST IS OF NECROTIZING PANCREATITIS - ATTEMPTED TRANSFER TO [facility], UNFORTUNATELY, NO AVAILABLE BEDS AVAILABLE - PT TO CONTINUE WITH IV ANTIBIOTICS, NO SURGICAL INTERVENTION NEEDED AT THIS TIME AND PATIENT NOT IN NEED TRANSFER AT THIS TIME DUE TO IMPROVEMENT - CONTINUE WITH CURRENT REGIMEN, ADVANCEMENT OF DIET PER SURGEON. COPD WITH EMPYSEMA AND DYSPNEA - STABLE CXR - IV ANTIBIOTICS CURRENTLY BROAD SPECTRUM - IV LASIX YESTERDAY WITH IMPROVED SYMPTOMS, WILL REPEAT LASIX 20MG IV TODAY X 1 HYPOKALEMIA - REPLACE WITH IV SUPPLEMENTATION ELEVATED LIVER ENZYMES WITH HYPERBILIRUBINEMIA - RESOLVED - IV HYDRATION, REPEAT LABS SERIALLY ANEMIA - SUPPORTIVE CARE, IF HGB DROPS BELOW 7 WILL TRANSFUSE ELEVATED TRIGLYCERIDES - HOLD ANTILIPEMIC AGENTS FOR NOW HYPERTENSION - DEFER TO CARDIOLOGY WITH ADJUSTMENT OF MEDICATIONS FOR AFIB ATRIAL FIBRILLATION - CHRONIC - TRANSITIONING TO ORAL MEDICATIONS WITH IV MEDS FOR PERSISTENT SYMPTOMS, DEFER TO CARDIOLOGY CHRONIC ANTICOAGULATION - HOLD ELIQUIS, LOVENOX STOPPED DUE TO GROSS HEMATOCHEZIA REFLUX - PPI THERAPY START PHYSICAL THERAPY TODAY DVT PROPHYLAXIS WITH SCD'S, LOVENOX STOPPED DUE TO GROSS HEMATOCHEZIA GI PROPHYLAXIS WITH PPI, WILL START ON PROBIOTICS WHEN ABLE TO TAKE PO FOOD/FLUIDS TOBACCOISM - PT IS ON NICOTINE PATCHES WILL NEED TO LOOK AT INPT REHAB PRIOR TO DC TO HOME Admission Dx ACUTE PANCREATITIS EPIGASTRIC ABDOMINAL PAIN ELEVATED LIVER ENZYMES ELEVATED TRIGLYCERIDES HYPERTENSION ATRIAL FIBRILLATION - CHRONIC CHRONIC ANTICOAGULATION REFLUX Clinical Quality Measures Admission Status Admission Dx ACUTE PANCREATITIS EPIGASTRIC ABDOMINAL PAIN ELEVATED LIVER ENZYMES ELEVATED TRIGLYCERIDES HYPERTENSION ATRIAL FIBRILLATION - CHRONIC CHRONIC ANTICOAGULATION REFLUX REMY MCELROY MD Aug 18, 2021 08:40
--- NOTE | 2021-08-18 09:44 | Progress Note - Cardiology ---
Cardiology SOAP Progress Note Subjective: Lying in bed States her abd pain is better at this time No c/o CP or SOB or palpitations Daughter is at the bedside Objective: I&O/Vital Signs 08/18/21 08/19/21 08/19/21 08/19/21 22:35 00:00 01:00 04:00 Temp 36.2 Pulse 105 85 104 Resp 31 B/P (MAP) 140/104 (116) Pulse Ox 95 90 O2 Delivery Room Air FiO2 21 08/19/21 08/19/21 08/19/21 08/19/21 04:00 06:48 07:40 07:47 Temp 36.0 Pulse 82 129 105 Resp 17 16 B/P (MAP) 127/68 (87) 117/99 (105) Pulse Ox 91 96 96 O2 Delivery Room Air Room Air Room Air 08/19/21 00:00 Intake Total 3940 ml Output Total 5225 ml Balance -1285 ml Weight (Pounds): 186 Weight (Ounces): 9.6 Weight (Calculated Kilograms): 84.966717 Constitutional: AAO x 3 Respiratory: No accessory muscle use, No respiratory distress; chest expansion is symmetric, chest is bilaterally symmetric Cardiovascular: irregularly irregular Gastrointestional: tender, audible bowel sounds Extremities: swelling (mild to mod bilat LE swelling); No cyanosis Neurologic/Psychiatric: other (moves all her limbs equally) Skin: No rash on exposed areas, No ulcerations on exposed areas Results/Procedures: Labs Microbiology 08/07/21 Gram Stain - Final, Complete 08/07/21 Sputum Culture - Final, Complete Usual upper respiratory erika YEAST Gram Negative Bacillus 1 08/06/21 Blood Culture - Final, Complete No growth Procedures NAME: YUMI DIXON [facility] REC#: [id number] PT STATUS: ADM IN : 1945 PHYSICIAN: TABITHA FORTE MD, MA, FACP, FACC, FSCAI, CCDS ADMIT DATE: 08/06/21/[facility] Signed Date of Exam:08/18/21 US VENOUS LOWER EXT RT INDICATION: Right leg swelling/edema TECHNIQUE: Multiple real-time grayscale images were obtained over the right lower extremity in various projections, bilaterally. Additional duplex Doppler and color Doppler images were also obtained. CORRELATION STUDY: None FINDINGS: Color and grayscale sonographic images demonstrate no intraluminal defect within the visualized portion of the common femoral, superficial femoral and/or popliteal veins to suggest thrombus formation. These vessels demonstrate normal response to compression and augmentation. No soft tissue fluid collection. IMPRESSION: 1. Negative for deep venous thrombosis of the right leg. Dictated by: Dictated on workstation # [id number] Dict: 08/18/21800 Trans: 08/18/21804 DO [id number] Interpreted by: KRISTINE APARICIO DO Electronically signed by: KRISTINE APARICIO DO 08/18/21804 A/P: Assessment: Acute necrotizing pancreatitis with possible pseudocyst, questionable perforat ion - Managed by surgery/medical services - Awaiting possible transfer to a tertiary care center - management per medical services Abdominal pain - secondary to above Hypokalemia PAF - Atrial fibrillation with rapid ventricular response. - OAC currently being withheld - resume JONNIE d/t risk of CVA when deemed safe per medical/surgical services Ac diastolic CHF due to A Fib with RVR CAD - Mild coronary artery disease per cardiac catheterization done in August 2017. - Last stress test was done in March 2021 showing no evidence of active ischemia. Ejection fraction 68%. - Echocardiogram was done in March 2021 showing normal LV size with EF 60 to 65%, mildly dilated left atrium, mitral regurgitation, bicuspid morphology of the aortic valve, aortic valve sclerosis. 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 - (neuroendocrine carcinoma), being followed by [facility] Plan: Continue current regimen for rate control Repeat furosemide today Replace electrolytes as needed OAC currently being held d/t risk of bleeding - advise resumption as soon as deemed safe per Surgical/Medical services Enoxaparin for DVT prophylaxis if approved the Med Svce No evidence of DVT per venous doppler of 08-17-21 Change IV meds out to oral starting today Monitor lab closely I spoke with her and daughter and answered their questions HEIDI ANAYA Aug 18, 2021 09:44
[2021-08-18] MEDS ORDERED: FUROSEMIDE 40 MG/4 ML INJ (LASIX) IVP NR (10:00)
--- NOTE | 2021-08-18 10:20 | Physical Therapy Daily Note ---
PT Daily Note-Current Subjective Patient was compliant with sitting at the edge of the bed for therapy today. Mental Status Patient Orientation: Person Attachments: Henderson Catheter, IV Transfers SCALE: Activities may be completed with or without assistive devices. 2-Pfejexhpsk-xtbvrbv completes the activity by him/herself with no assistance from a helper. 5-Set-up or Clean-up Assistance-helper sets up or cleans up; patient completes activity. [place] assists only prior to or following the activity. 4-Supervision or Touching Assistance-helper provides verbal cues and/or touching/steadying and/or contact guard assistance as patient completes activity. Assistance may be provided throughout the activity or intermittently. 3-Partial/Moderate Assistance-helper does LESS THAN HALF the effort. [place] lifts, holds or supports trunk or limbs, but provides less than half the effort. 2-Substantial/Maximal Assistance-helper does MORE THAN HALF the effort. [place] lifts or holds trunk or limbs and provides more than half the effort. 1-Pxjzmqzpd-ipcrod does ALL the effort. Patient does none of the effort to complete the activity. Or, the assistance of 2 or more helpers is required for the patient to complete the activity. If activity was not attempted, code reason: 7-Patient Refused. 9-Not Applicable-not attempted and the patient did not perform the activity before the current illness, exacerbation or injury. 10-Not Attempted due to Environmental Limitations-(lack of equipment, weather restraints, etc.). 88-Not Attempted due to Medical Conditions or Safety Concerns. Sit to Lying (QC): 4 Lying to Sitting/Side of Bed(Q: 4 Exercises Seated Therapy Exercises: Long arc quads (10 reps), Reaching activity (with deep breathing) Assessment Patient was able to sit EOB for over 10 minutes without O2 saturation dropping. Patient HR was very irregular during therapy session. Patient reported that she felt very weak while sitting on the EOB. Patient refused to move to sit in the chair today but said she might be willing to sit in the chair tomorrow. PT Nursing Home Goals Word Processing Operator Goals PT Nursing Home Goals Time Frame: Aug 30, 2021 Roll Left & Right (QC): 4 Sit to Lying (QC): 4 Lying-Sitting on Side/Bed(QC): 4 Sit to Stand (QC): 4 Chair/Keg-jb-Hmmxe Xfer(QC): 4 Walk 10 feet (QC): 3 PT Plan Treatment/Plan Treatment Plan: Continue Plan of Care Treatment Plan: Bed Mobility, Education, Functional Activity Serena, Functional Strength, Gait, Safety, Therapeutic Exercise, Transfers Treatment Duration: Aug 30, 2021 Frequency: 6 times per week Estimated Hrs Per Day: .25 hour per day Patient and/or Family Agrees t: Yes Time/GCodes Time In: 755 Time Out: 810 Total Billed Treatment Time: 15 Total Billed Treatment 1 Visit FA 15 min SARANYA GONZALEZ PT Aug 18, 2021 10:20
[2021-08-18] MEDS: ENOXAPARIN 40 MG/0.4 ML (LOVENOX) SYR SC SCH (10:55)
[2021-08-18 12:00] VITALS: BP 128/79
--- NOTE | 2021-08-18 13:33 | Occupational Ther Daily Note ---
OT Current Status-Daily Note Subjective Pt supine in bed. Pt agreeable to OT tx. Mental Status/Objective Patient Orientation: Person, Place, Situation Attachments: Henderson Catheter ADL-Treatment Therapy Code Descriptions/Definitions Functional [place] Measure: 0=Not Assessed/NA 4=Minimal Assistance 1=Total Assistance 5=Supervision or Setup 2=Maximal Assistance 6=Modified [place] 3=Moderate Assistance 7=Complete IndependenceSCALE: Activities may be completed with or without assistive devices. 6-Aochvhlwqx-oaowehp completes the activity by him/herself with no assistance from a helper. 5-Set-up or Clean-up Assistance-helper sets up or cleans up; patient completes activity. [place] assists only prior to or following the activity. 4-Supervision or Touching Assistance-helper provides verbal cues and/or to uching/steadying and/or contact guard assistance as patient completes activity. Assistance may be provided throughout the activity or intermittently. 3-Partial/Moderate Assistance-helper does LESS THAN HALF the effort. [place] lifts, holds or supports trunk or limbs, but provides less than half the effort. 2-Substantial/Maximal Assistance-helper does MORE THAN HALF the effort. [place] lifts or holds trunk or limbs and provides more than half the effort. 3-Tidmylepw-dbsygc does ALL the effort. Patient does none of the effort to complete the activity. Or, the assistance of 2 or more helpers is required for the patient to complete the activity. If activity was not attempted, code reason: 7-Patient Refused. 9-Not Applicable-not attempted and the patient did not perform the activity before the current illness, exacerbation or injury. 10-Not Attempted due to Environmental Limitations-(lack of equipment, weather restraints, etc.). 88-Not Attempted due to Medical Conditions or Safety Concerns. Other Treatment Pt supine in bed. Pt transitioned EOB CGA. Pt completed 5 reps of the following BUE exercises: shoulder flexion, elbow flexion/extension, front punches and wrist flexion/extension. O2 saturation dropped to mid 70s with activity but recovered to the 90s with verbal cues for pursed lip breathing. Pt transitioned from EOB to supine, min A needed to put legs onto bed. Pt supine in bed, call light in reach and all needs met. Education OT Patient Education: Correct positioning, Energy conservation, Exercise program, Modified ADL techniques, Progress toward Goal/Update tx plan, Purpose of tx/functional activities Teaching Recipient: Patient Teaching Methods: Demonstration, Discussion Response to Teaching: Verbalize Understanding, Return Demonstration OT Long-Term Goals Primary School Teacher Goals Time Frame: Aug 30, 2021 Eating (QC): 6 Oral Hygiene (QC): 5 Toileting Hygiene (QC): 4 Shower/Bathe Self (QC): 4 Upper Body Dressing (QC): 4 Lower Body Dressing (QC): 4 On/Off Footwear (QC): 4 1=Demonstrate adherence to instructed precautions during ADL tasks. 2=Patient will verbalize/demonstrate understanding of assistive devices/modifications for ADL. 3=Patient will improve strength/tolerance for activity to enable patient to perform ADL's. OT Education/Plan Problem List/Assessment Assessment: Decreased Activ Tolerance, Impaired Funct Balance, Impaired I ADL's, Impaired Self-Care Skills Discharge Recommendations Plan/Recommendations: Continue POC Treatment Plan/Plan of Care Patient would benefit from OT for education, treatment and training to promote independence in ADL's, mobility, safety and/or upper extremity function for ADL's. Plan of Care: ADL Retraining, Functional Mobility, UE Funct Exercise/Act Treatment Duration: Aug 30, 2021 Frequency: 3 times per week Estimated Hrs Per Day: .25 hour per day Agreement: Yes Rehab Potential: Guarded Time/GCodes Start Time: 13:10 Stop Time: 13:25 Total Time Billed (hr/min): 15 Billed Treatment Time 1, EX (15) YUNIEL ROMANO OT Aug 18, 2021 13:33
--- NOTE | 2021-08-18 15:07 | Progress Note - Cardiology ---
Cardiology SOAP Progress Note Subjective: Gen weakness and malaise present No cp or palp or syncope Shortness of breath with activity No n/v/d Objective: I&O/Vital Signs 08/18/21 08/18/21 08/18/21 08/18/21 04:00 07:00 08:00 08:15 Temp 36.1 Pulse 71 105 92 Resp 16 18 B/P (MAP) 127/99 (108) 129/101 (110) Pulse Ox 95 94 93 O2 Delivery Nasal Cannula Nasal Cannula Room Air O2 Flow Rate 2.00 0.50 0.00 08/18/21 08/18/21 08/18/21 08/18/21 09:00 12:00 12:00 14:50 Temp 35.9 Pulse 102 103 Resp 20 B/P (MAP) 128/79 (95) Pulse Ox 92 95 O2 Delivery Nasal Cannula Nasal Cannula Room Air O2 Flow Rate 1.00 08/18/21 00:00 Intake Total 875 ml Output Total 2975 ml Balance -2100 ml Weight (Pounds): 186 Weight (Ounces): 9.6 Weight (Calculated Kilograms): 84.443594 Constitutional: AAO x 3 Respiratory: No accessory muscle use, No respiratory distress; chest expansion is symmetric, chest is bilaterally symmetric Cardiovascular: irregularly irregular Gastrointestional: tender, audible bowel sounds Extremities: swelling (mild to mod bilat LE swelling); No cyanosis Neurologic/Psychiatric: other (moves all her limbs equally) Skin: No rash on exposed areas, No ulcerations on exposed areas Results/Procedures: Labs Laboratory Tests 08/18/21 03:40: White Blood Count 6.3, Red Blood Count 2.38L, Hemoglobin 7.7L, Hematocrit 24L, Mean Corpuscular Volume 103H, Mean Corpuscular Hemoglobin 32, Mean Corpuscular Hemoglobin Concent 32, Red Cell Distribution Width 17.2H, Platelet Count 496H, Mean Platelet Volume 8.7L, Immature Granulocyte % (Auto) 1, Neutrophils (%) (Auto) 71, Lymphocytes (%) (Auto) 16, Monocytes (%) (Auto) 11, Eosinophils (%) (Auto) 1, Basophils (%) (Auto) 1, Neutrophils # (Auto) 4.4, Lymphocytes # (Auto) 1.0, Monocytes # (Auto) 0.7, Eosinophils # (Auto) 0.1, Basophils # (Auto) 0.0, Immature Granulocyte # (Auto) 0.1, Sodium Level 138, Potassium Level 3.9, Chloride Level 105, Carbon Dioxide Level 23, Anion Gap 10, Blood Urea Nitrogen 6L, Creatinine 0.55L, Estimat Glomerular Filtration Rate 95, BUN/Creatinine Ratio 11, Glucose Level 100, Calcium Level 7.8L, Corrected Calcium 9.2, Total Bilirubin 0.4, Aspartate Amino Transf (AST/SGOT) 28, Alanine Aminotransferase (ALT/SGPT) 28, Alkaline Phosphatase 65, Total Protein 4.2L, Albumin 2.3L Microbiology 08/07/21 Gram Stain - Final, Complete 08/07/21 Sputum Culture - Final, Complete Usual upper respiratory erika YEAST Gram Negative Bacillus 1 08/06/21 Blood Culture - Final, Complete No growth Laboratory Tests 08/17/21 06:15 08/18/21 03:40 A/P: Assessment: Acute necrotizing pancreatitis with possible pseudocyst, questionable perforation - Managed by surgery/medical services - Awaiting possible transfer to a tertiary care center - management per medical services Abdominal pain - secondary to above Hypokalemia PAF - Atrial fibrillation with rapid ventricular response. - OAC currently being withheld - resume JONNIE d/t risk of CVA when deemed safe per medical/surgical services Ac diastolic CHF due to A Fib with RVR CAD - Mild coronary artery disease per cardiac catheterization done in August 2017. - Last stress test was done in March 2021 showing no evidence of active ischemia. Ejection fraction 68%. - Echocardiogram was done in March 2021 showing normal LV size with EF 60 to 65%, mildly dilated left atrium, mitral regurgitation, bicuspid morphology of the aortic valve, aortic valve sclerosis. Hyperlipidemia - statin tx - managed by PCP Tobaccoism - cessation advised Obstructive sleep apnea - CPAP txFam h/o Surgical hx - H/o cholecystectomy, appendectomy and two groin hernia surgeries Carotid arterial disease - Carotid u/s of 03/10/21 showed 60 -79% R ICA and less than 40% L ICA stenosis L pulm mass removal on 06/16/17 at [facility] - (neuroendocrine carcinoma), being followed by [facility] and [facility] Plan: Continue current regimen for rate control Repeat furosemide today Replace electrolytes as needed OAC currently being held d/t risk of bleeding - advise resumption as soon as deemed safe per Surgical/Medical services Enoxaparin for DVT prophylaxis if approved the Med Svce No evidence of DVT per venous doppler of 08-17-21 Change IV meds out to oral, starting today Monitor lab closely I spoke with her and daughter and answered their questions TABITHA FORTE MD FACP [facility] CCDS Aug 18, 2021 15:07
[2021-08-18 16:00] VITALS: BP 113/59
[2021-08-18 20:09] VITALS: BP 115/84
[2021-08-19] VITALS (7 sets, daily range): BP systolic 105–140; BP diastolic 68–104
[2021-08-19] MEDS: PIPERACILLIN SODIUM/TAZOBACTAM 4.5 GM in NS (IVPB) 100 ML IV SCH (03:37)
[2021-08-19] MEDS: RT-ALBUTEROL/IPRATROPIUM 3 ML (DUONEB) VIAL INH SCH ×4 (07:47→19:08)
--- NOTE | 2021-08-19 08:33 | Progress Note ---
Subjective Subjective PT IS A 76 Y/O FEMALE WHO IS KNOWN TO ME FROM CLINIC. SHE PRESENTED TO THE ER WITH ABDOMINAL PAIN, WAS DIAGNOSED WITH ACUTE PANCREATITIS - PT HAD DECLINE, DEVELOPED GROSSLY ELEVATED BILIRUBIN AT 10, DX WITH NECROTIZING PANCREATITIS, AND AFIB NOT RATE CONTROLLED, TRANSFERRED UP TO STEPDOWN UNIT. Review of Systems General: No Chills, No Fatigue HEENT: No Head Aches, No Visual Changes Pulmonary: Dyspnea, Cough Cardiovascular: No: Chest Pain, Palpitations Gastrointestinal: No: Nausea, Vomiting, Abdominal Pain, Diarrhea Genitourinary: No Dysuria, No Incontinence, No Hematuria Musculoskeletal: No: back pain, leg pain Neurological: No: Weakness, Confusion All Other Systems Reviewed All Other Systems Reviewed: Yes Objective Exam Vital Signs Vital Signs Date Time Temp Pulse Resp B/P (MAP) Pulse Ox O2 Delivery O2 Flow Rate FiO2 08/19/21 07:47 96 Room Air 08/19/21 07:40 36.0 105 16 117/99 (105) 96 Room Air 08/19/21 04:00 82 17 127/68 (87) 91 Room Air 08/19/21 04:00 36.2 08/19/21 01:00 104 08/19/21 00:00 85 31 140/104 (116) 90 Room Air 08/18/21 22:35 105 95 21 08/18/21 22:24 94 Room Air 08/18/21 21:00 Nasal Cannula 1.00 08/18/21 20:09 36.8 109 18 115/84 (94) 94 Room Air 08/18/21 19:00 80 08/18/21 18:40 95 Room Air 08/18/21 16:00 36.3 93 16 113/59 (77) 95 Room Air 08/18/21 14:50 95 Room Air 08/18/21 12:00 35.9 103 20 128/79 (95) 92 Nasal Cannula 08/18/21 12:00 102 08/18/21 09:00 Nasal Cannula 1.00 I & O 08/19/21 07:00 Intake Total 4090 ml Output Total 7175 ml Balance -3085 ml General Appearance: No Apparent Distress, Chronically ill Eyes: Bilateral Eye Normal Inspection, Bilateral Eye PERRL, Bilateral Eye EOMI HEENT: PERRL/EOMI, Normal ENT Inspection Neck: Normal Inspection, Non Tender, Supple Respiratory: Chest Non Tender, No Respiratory Distress Cardiovascular: No JVD, Irregularly Irregular Gastrointestinal: Normal Bowel Sounds, Non Tender, Soft, Distended (SLIGHTLY) Rectal: Deferred Back: Normal Inspection, No Vertebral Tenderness Extremity: Normal Inspection, Pedal Edema Neurologic/Psychiatric: Alert, Oriented x3, No Motor/Sensory Deficits Skin: Normal Color, Warm/Dry Lymphatic: No Adenopathy (Head and neck) Results Lab Microbiology 08/07/21 Gram Stain - Final, Complete 08/07/21 Sputum Culture - Final, Complete Usual upper respiratory erika YEAST Gram Negative Bacillus 1 08/06/21 Blood Culture - Final, Complete No growth Assessment/Plan Assessment/Plan Admission Dx ACUTE PANCREATITIS EPIGASTRIC ABDOMINAL PAIN ELEVATED LIVER ENZYMES ELEVATED TRIGLYCERIDES HYPERTENSION ATRIAL FIBRILLATION - CHRONIC CHRONIC ANTICOAGULATION REFLUX Assessment and Plan ACUTE NECROTIZING PANCREATITIS SEPSIS EPIGASTRIC ABDOMINAL PAIN ELEVATED LIVER ENZYMES ELEVATED TRIGLYCERIDES HYPERTENSION ATRIAL FIBRILLATION - CHRONIC CHRONIC ANTICOAGULATION REFLUX GROGGY LACTIC ACIDOSIS COPD WITH EMPHYSEMA DYSPNEA SEPSIS DUE TO ACUTE NECROTIZING PANCREATITIS WITH EPIGASTRIC ABDOMINAL PAIN - NO LONGER APPEARS TO HAVE NECROTIZING PANCREAS, NO SURGICAL INTERVENTION NEEDED AT THIS TIME. - CONSULT TO SURGEON - BLOOD CULTURE - CLOSTRIDIUM PERFRINGENS - PT STARTED ON ZOSYN YESTERDAY EVENING AND FLAGYL THIS MORNING (08/07/2021) - IV ROCEPHIN INITIATED ON ADMISSION - STOPPED ON 08/06/2021 EVENING AND CHANGED TO ZOSYN - REPEAT CT SCAN BELOW - SURGEON OVERVIEW WITH ADDITIONAL RADIOLOGIST IS OF NECROTIZING PANCREATITIS - ATTEMPTED TRANSFER TO [facility], UNFORTUNATELY, NO AVAILABLE BEDS AVAILABLE - PT TO CONTINUE WITH IV ANTIBIOTICS, NO SURGICAL INTERVENTION NEEDED AT THIS TIME AND PATIENT NOT IN NEED TRANSFER AT THIS TIME DUE TO IMPROVEMENT - CONTINUE WITH CURRENT REGIMEN, ADVANCEMENT OF DIET PER SURGEON. COPD WITH EMPYSEMA AND DYSPNEA - STABLE CXR - IV ANTIBIOTICS CURRENTLY BROAD SPECTRUM - IV LASIX YESTERDAY WITH IMPROVED SYMPTOMS, WILL REPEAT LASIX 20MG IV TODAY X 1 HYPOKALEMIA - REPLACE WITH IV SUPPLEMENTATION ELEVATED LIVER ENZYMES WITH HYPERBILIRUBINEMIA - RESOLVED - IV HYDRATION, REPEAT LABS SERIALLY ANEMIA - SUPPORTIVE CARE, IF HGB DROPS BELOW 7 WILL TRANSFUSE ELEVATED TRIGLYCERIDES - HOLD ANTILIPEMIC AGENTS FOR NOW HYPERTENSION - DEFER TO CARDIOLOGY WITH ADJUSTMENT OF MEDICATIONS FOR AFIB ATRIAL FIBRILLATION - CHRONIC - TRANSITIONING TO ORAL MEDICATIONS WITH IV MEDS FOR PERSISTENT SYMPTOMS, DEFER TO CARDIOLOGY CHRONIC ANTICOAGULATION - HOLD ELIQUIS, LOVENOX STOPPED DUE TO GROSS HEMATOCHEZIA REFLUX - PPI THERAPY START PHYSICAL THERAPY TODAY DVT PROPHYLAXIS WITH SCD'S, LOVENOX STOPPED DUE TO GROSS HEMATOCHEZIA GI PROPHYLAXIS WITH PPI, WILL START ON PROBIOTICS WHEN ABLE TO TAKE PO FOOD/FLUIDS TOBACCOISM - PT IS ON NICOTINE PATCHES WILL NEED TO LOOK AT INPT REHAB PRIOR TO DC TO HOME Admission Dx ACUTE PANCREATITIS EPIGASTRIC ABDOMINAL PAIN ELEVATED LIVER ENZYMES ELEVATED TRIGLYCERIDES HYPERTENSION ATRIAL FIBRILLATION - CHRONIC CHRONIC ANTICOAGULATION REFLUX Clinical Quality Measures Admission Status Admission Dx ACUTE PANCREATITIS EPIGASTRIC ABDOMINAL PAIN ELEVATED LIVER ENZYMES ELEVATED TRIGLYCERIDES HYPERTENSION ATRIAL FIBRILLATION - CHRONIC CHRONIC ANTICOAGULATION REFLUX REMY MCELROY MD Aug 19, 2021 08:33
[2021-08-19] MEDS ORDERED: FUROSEMIDE 40 MG/4 ML INJ (LASIX) IVP NR (09:30)
[2021-08-19] MEDS: DIGOXIN 0.125 MG (LANOXIN) TAB PO SCH (09:32)
[2021-08-19] MEDS: KCL 20 MEQ TAB (K-DUR) PO SCH ×2 (09:33→21:22)
[2021-08-19] MEDS: PANTOPRAZOLE 40 MG (PROTONIX) TAB PO SCH (09:33)
[2021-08-19] MEDS: ENOXAPARIN 40 MG/0.4 ML (LOVENOX) SYR SC SCH (09:38)
--- NOTE | 2021-08-19 10:37 | Progress Note - Cardiology ---
Cardiology SOAP Progress Note Subjective: Sitting up in bed Sister at the bedside States she is feeling weak and tired this morning Occ productive cough No c/o CP or palpitations Objective: I&O/Vital Signs 08/18/21 08/19/21 08/19/21 08/19/21 22:35 00:00 01:00 04:00 Temp 36.2 Pulse 105 85 104 Resp 31 B/P (MAP) 140/104 (116) Pulse Ox 95 90 O2 Delivery Room Air FiO2 21 08/19/21 08/19/21 08/19/21 08/19/21 04:00 06:48 07:40 07:47 Temp 36.0 Pulse 82 129 105 Resp 17 16 B/P (MAP) 127/68 (87) 117/99 (105) Pulse Ox 91 96 96 O2 Delivery Room Air Room Air Room Air 08/19/21 00:00 Intake Total 3940 ml Output Total 5225 ml Balance -1285 ml Weight (Pounds): 186 Weight (Ounces): 9.6 Weight (Calculated Kilograms): 84.721890 Constitutional: AAO x 3 Respiratory: No accessory muscle use, No respiratory distress; chest expansion is symmetric, chest is bilaterally symmetric, other (fair air entry) Cardiovascular: irregularly irregular Gastrointestional: tender, audible bowel sounds Extremities: swelling (mild to mod bilat LE swelling); No cyanosis Neurologic/Psychiatric: other (moves all her limbs equally) Skin: No rash on exposed areas, No ulcerations on exposed areas Results/Procedures: Labs Microbiology 08/07/21 Gram Stain - Final, Complete 08/07/21 Sputum Culture - Final, Complete Usual upper respiratory erika YEAST Gram Negative Bacillus 1 08/06/21 Blood Culture - Final, Complete No growth Laboratory Tests 08/18/21 03:40 A/P: Assessment: Acute necrotizing pancreatitis with possible pseudocyst, questionable perforation - Managed by surgery/medical services - Awaiting possible transfer to a tertiary care center - management per medical services Abdominal pain - secondary to above Hypokalemia - replace PAF - Atrial fibrillation with rapid ventricular response. - OAC currently being withheld - resume JONNIE d/t risk of CVA when deemed safe per medical/surgical services Ac diastolic CHF due to A Fib with RVR CAD - Mild coronary artery disease per cardiac catheterization done in August 2017. - Last stress test was done in March 2021 showing no evidence of active ischemia. Ejection fraction 68%. - Echocardiogram was done in March 2021 showing normal LV size with EF 60 to 65%, mildly dilated left atrium, mitral regurgitation, bicuspid morphology of the aortic valve, aortic valve sclerosis. Hyperlipidemia - statin tx - managed by PCP Tobaccoism - cessation advised Obstructive sleep apnea - CPAP txFam h/o Surgical hx - H/o cholecystectomy, appendectomy and two groin hernia surgeries Carotid arterial disease - Carotid u/s of 03/10/21 showed 60 -79% R ICA and less than 40% L ICA stenosis L pulm mass removal on 06/16/17 at [facility] - (neuroendocrine carcinoma), being followed by [facility] Plan: Continue current regimen for rate control - HR remains not well controlled, d/t somewhat low normal BP this prevents us from further increasing BB dose, increase Cardizem CD Start oral Lasix with potassium replacement - starting tomorrow Replace electrolytes as needed OAC currently being held d/t risk of bleeding - advise resumption as soon as deemed safe per Surgical/Medical services Receiving Enoxaparin for DVT prophylaxis Monitor lab closely I spoke with her and her sister and answered their questions HEIDI ANAYA Aug 19, 2021 10:37
--- NOTE | 2021-08-19 11:30 | Occupational Ther Daily Note ---
OT Current Status-Daily Note Subjective Pt alert, lying in bed. Nrsg in room. Pt agrees to therapy. No c/o pain at this time. Mental Status/Objective Patient Orientation: Person, Place, Time, Situation Attachments: Henderson Catheter, IV, Telemetry ADL-Treatment Pt incontinent of bowel. Pt required assistance to cleanse after incontinency x2. Pt able to roll side to side with CGA. Assist to complete upper body dressing with hospital gown due to tubing monitoring BP and O2 levels. After session, pt lying in bed with call light/phone in reach. All needs met in room. Nrsg in room. Therapy Code Descriptions/Definitions Functional Effie Measure: 0=Not Assessed/NA 4=Minimal Assistance 1=Total Assistance 5=Supervision or Setup 2=Maximal Assistance 6=Modified Effie 3=Moderate Assistance 7=Complete IndependenceSCALE: Activities may be completed with or without assistive devices. 1-Dduvbkkona-ksvutts completes the activity by him/herself with no assistance from a helper. 5-Set-up or Clean-up Assistance-helper sets up or cleans up; patient completes activity. Peterson assists only prior to or following the activity. 4-Supervision or Touching Assistance-helper provides verbal cues and/or touching/steadying and/or contact guard assistance as patient completes activity. Assistance may be provided throughout the activity or intermittently. 3-Partial/Moderate Assistance-helper does LESS THAN HALF the effort. Peterson lifts, holds or supports trunk or limbs, but provides less than half the effort. 2-Substantial/Maximal Assistance-helper does MORE THAN HALF the effort. Peterson lifts or holds trunk or limbs and provides more than half the effort. 3-Fuvvhcize-qkjnut does ALL the effort. Patient does none of the effort to complete the activity. Or, the assistance of 2 or more helpers is required for the patient to complete the activity. If activity was not attempted, code reason: 7-Patient Refused. 9-Not Applicable-not attempted and the patient did not perform the activity before the current illness, exacerbation or injury. 10-Not Attempted due to Environmental Limitations-(lack of equipment, weather restraints, etc.). 88-Not Attempted due to Medical Conditions or Safety Concerns. Upper Body Dressing (QC): 3 Toileting Hygiene (QC): 1 OT Custodial Goals Covered Buckle Assembler Goals Time Frame: Aug 30, 2021 Eating (QC): 6 Oral Hygiene (QC): 5 Toileting Hygiene (QC): 4 Shower/Bathe Self (QC): 4 Upper Body Dressing (QC): 4 Lower Body Dressing (QC): 4 On/Off Footwear (QC): 4 1=Demonstrate adherence to instructed precautions during ADL tasks. 2=Patient will verbalize/demonstrate understanding of assistive devices/modifications for ADL. 3=Patient will improve strength/tolerance for activity to enable patient to perform ADL's. OT Education/Plan Problem List/Assessment Assessment: Impaired Bed Mobility, Impaired Self-Care Skills Discharge Recommendations Plan/Recommendations: Continue POC Treatment Plan/Plan of Care Patient would benefit from OT for education, treatment and training to promote independence in ADL's, mobility, safety and/or upper extremity function for ADL's. Plan of Care: ADL Retraining, Functional Mobility, UE Funct Exercise/Act Treatment Duration: Aug 30, 2021 Frequency: 3 times per week Estimated Hrs Per Day: .25 hour per day Agreement: Yes Rehab Potential: Guarded Time/GCodes Start Time: 11:10 Stop Time: 11:24 Total Time Billed (hr/min): 14 Billed Treatment Time 1 visit-ADL 1 (14 min) REYES RODRIGUEZ Aug 19, 2021 11:30
--- NOTE | 2021-08-19 12:33 | Diagnostic Imaging Report ---
EXAMINATION: Portable PA and lateral chest at 10:41 a.m. INDICATION: Dyspnea. FINDINGS: The previous CT chest exam performed on 01/31/2021 failed to show any sign of an acute cardiopulmonary abnormality. There was no evidence for metastatic disease related to the patient's diagnosis of lung cancer. In the interval since the prior exam, the appearance of the chest has worsened as the left lung base is now opacified by atelectasis/infiltrate and fluid. There is also involvement of the right lung base by pneumonia/atelectasis and fluid but to a lesser extent. The upper lungs are generally clear. The central pulmonary vascularity is somewhat prominent, but there is no evidence for overt failure. The heart is mildly enlarged but stable in size. The mediastinum is not widened. The osseous structures are intact. In the interval since the prior study, a right-sided PICC line has been inserted. The tip of the line overlies the distal superior vena cava and seems to be in good position. There is no sign of pneumothorax on the right. IMPRESSION: 1. The appearance of the chest has worsened since the prior exam as bibasilar pneumonia/atelectasis and bilateral pleural effusions have developed. There is greater involvement on the left. 2. There has been interval insertion of a right-sided PICC line without apparent complication. Dictated by: Dictated on workstation # [id number]
--- NOTE | 2021-08-19 13:08 | Physical Therapy Daily Note ---
PT Daily Note-Current Subjective Patient reports 0/10 pain currently, agreeable to treatment, but notes she has not ambulated in at least 2 weeks and is not sure she will be able to. Mental Status Patient Orientation: Person, Place, Time, Situation Transfers SCALE: Activities may be completed with or without assistive devices. 4-Jrkinolejb-fechvgc completes the activity by him/herself with no assistance from a helper. 5-Set-up or Clean-up Assistance-helper sets up or cleans up; patient completes activity. Branch assists only prior to or following the activity. 4-Supervision or Touching Assistance-helper provides verbal cues and/or touching/steadying and/or contact guard assistance as patient completes activity. Assistance may be provided throughout the activity or intermittently. 3-Partial/Moderate Assistance-helper does LESS THAN HALF the effort. Branch lifts, holds or supports trunk or limbs, but provides less than half the effort. 2-Substantial/Maximal Assistance-helper does MORE THAN HALF the effort. Branch lifts or holds trunk or limbs and provides more than half the effort. 6-Igvbkonpw-mokhho does ALL the effort. Patient does none of the effort to complete the activity. Or, the assistance of 2 or more helpers is required for the patient to complete the activity. If activity was not attempted, code reason: 7-Patient Refused. 9-Not Applicable-not attempted and the patient did not perform the activity before the current illness, exacerbation or injury. 10-Not Attempted due to Environmental Limitations-(lack of equipment, weather restraints, etc.). 88-Not Attempted due to Medical Conditions or Safety Concerns. Roll Left & Right (QC): 3 Sit to Lying (QC): 3 Lying to Sitting/Side of Bed(Q: 3 Sit to Stand (QC): 3 Gait Training Does the Patient Walk?: No and Walking Goal IS indicated Treatments Patient practiced bed mobility and transfers with focus on performing to return home. Performed standing static balance with FWW with min A. Patient O2 sats declined significantly on room air. Assessment Current Status: Fair Progress Patient tolerated treatment fair. Reports this is her first time out of bed and standing in about 2 weeks. Patient requires min a for all bed mobility and sit to stand. Patient on room air upon PT arrival. Upon standing for ~ 2-4 minutes, O2 sats declined significantly on room air to 78%. Upon sitting and returning to supine, O2 sats increased to 94% within 2-3 minutes. Patient in bed post treatment with all needs met, nursing notified, call light in hand, and friend in the room. PT Tech Intern Goals Tech Intern Goals PT Long-Term Goals Time Frame: Aug 30, 2021 Roll Left & Right (QC): 4 Sit to Lying (QC): 4 Lying-Sitting on Side/Bed(QC): 4 Sit to Stand (QC): 4 Chair/Awr-jv-Ynqdp Xfer(QC): 4 Walk 10 feet (QC): 3 PT Plan Treatment/Plan Treatment Plan: Continue Plan of Care Treatment Plan: Bed Mobility, Education, Functional Activity Serena, Functional Strength, Gait, Safety, Therapeutic Exercise, Transfers Treatment Duration: Aug 30, 2021 Frequency: 6 times per week Estimated Hrs Per Day: .25 hour per day Patient and/or Family Agrees t: Yes Safety Risks/Education Patient Education: Transfer Techniques Teaching Recipient: Patient Teaching Methods: Demonstration, Discussion Response to Teaching: Verbalize Understanding, Reinforcement Needed Time/GCodes Time In: 1140 Time Out: 1155 Total Billed Treatment Time: 15 Total Billed Treatment Visit, CHARLI NATION PT Aug 19, 2021 13:08
[2021-08-20 00:05] VITALS: BP 140/91
[2021-08-20 04:00] VITALS: BP 111/73
[2021-08-20 05:02] LABS: POTASSIUM 4.1 MMOL/L (3.6-5.0)
[2021-08-20 05:03] LABS: CALCIUM 8.8 MG/DL (8.5-10.1)
[2021-08-20 05:08] LABS: CREATININE SERUM 0.67 MG/DL (0.60-1.30)
[2021-08-20 05:10] LABS: MAGNESIUM 1.9 MG/DL (1.6-2.4)
[2021-08-20] MEDS: RT-ALBUTEROL/IPRATROPIUM 3 ML (DUONEB) VIAL INH SCH ×2 (07:23→10:42)
--- NOTE | 2021-08-20 08:37 | Discharge Summary ---
Diagnosis/Chief Complaint Date of Admission Aug 06, 2021 at 05:35 Date of Discharge Admission Diagnosis Admission Diagnosis ACUTE PANCREATITIS EPIGASTRIC ABDOMINAL PAIN ELEVATED LIVER ENZYMES ELEVATED TRIGLYCERIDES HYPERTENSION ATRIAL FIBRILLATION - CHRONIC CHRONIC ANTICOAGULATION REFLUX Discharge Diagnosis ACUTE NECROTIZING PANCREATITIS SEPSIS EPIGASTRIC ABDOMINAL PAIN ELEVATED LIVER ENZYMES ELEVATED TRIGLYCERIDES HYPERTENSION ATRIAL FIBRILLATION - CHRONIC CHRONIC ANTICOAGULATION REFLUX GROGGY LACTIC ACIDOSIS COPD WITH EMPHYSEMA DYSPNEA Reason Hospital Visit PT IS A 76 Y/O FEMALE WHO IS KNOWN TO ME FROM CLINIC. SHE REPORTS THAT SHE WAS FEELING IN HER USUAL STATE OF HEALTH UNTIL LATE LAST NIGHT WHEN SHE STARTED TO HAVE SEVERE ACUTE ABDOMINAL PAIN. SHE REPORTS THAT THE PAIN WAS SO INTENSE SHE WAS WORRIED SOMETHING HAD RUPTURED AND SHE WAS TRANSPORTED TO THE ER WHERE SHE WAS FOUND TO HAVE ACUTE PANCREATITIS. Discharge Summary Consultations CARDIOLOGY SURGERY Discharge Physical Examination Allergies: Coded Allergies: Sulfa (Sulfonamide Antibiotics) (Unverified Allergy, Unknown, 02/10/06) lisinopril (Unverified Allergy, Unknown, 11/15/13) fentanyl (Verified Adverse Reaction, Unknown, hypotension Nausea, 08/06/21) Vitals & I&Os Vital Signs Date Time Temp Pulse Resp B/P (MAP) Pulse Ox O2 Delivery O2 Flow Rate FiO2 08/20/21 07:23 95 Nasal Cannula 2.00 08/20/21 07:00 136 08/20/21 04:00 36.7 08/20/21 04:00 15 111/73 (86) 08/18/21 22:35 21 Hospital Course ACUTE NECROTIZING PANCREATITIS SEPSIS EPIGASTRIC ABDOMINAL PAIN ELEVATED LIVER ENZYMES ELEVATED TRIGLYCERIDES HYPERTENSION ATRIAL FIBRILLATION - CHRONIC CHRONIC ANTICOAGULATION REFLUX GROGGY LACTIC ACIDOSIS COPD WITH EMPHYSEMA DYSPNEA SEPSIS DUE TO ACUTE NECROTIZING PANCREATITIS WITH EPIGASTRIC ABDOMINAL PAIN - NO LONGER APPEARS TO HAVE NECROTIZING PANCREAS, NO SURGICAL INTERVENTION NEEDED AT THIS TIME. - CONSULT TO SURGEON - BLOOD CULTURE - CLOSTRIDIUM PERFRINGENS - PT STARTED ON ZOSYN YESTERDAY EVENING AND FLAGYL THIS MORNING (08/07/2021) - IV ROCEPHIN INITIATED ON ADMISSION - STOPPED ON 08/06/2021 EVENING AND CHANGED TO ZOSYN - REPEAT CT SCAN BELOW - SURGEON OVERVIEW WITH ADDITIONAL RADIOLOGIST IS OF NECROTIZING PANCREATITIS - ATTEMPTED TRANSFER TO [facility], UNFORTUNATELY, NO AVAILABLE BEDS AVAILABLE - PT TO CONTINUE WITH IV ANTIBIOTICS, NO SURGICAL INTERVENTION NEEDED AT THIS TIME AND PATIENT NOT IN NEED TRANSFER AT THIS TIME DUE TO IMPROVEMENT - CONTINUE WITH CURRENT REGIMEN, ADVANCEMENT OF DIET PER SURGEON. COPD WITH EMPYSEMA AND DYSPNEA - STABLE CXR - IV ANTIBIOTICS - COMPLETED A COURSE OF BROAD SPECTRUM - IV LASIX HAS SHOWN WITH IMPROVED SYMPTOMS HYPOKALEMIA - REPLACED WITH IV AND ORAL SUPPLEMENTATION ELEVATED LIVER ENZYMES WITH HYPERBILIRUBINEMIA - RESOLVED - RESOLVED ANEMIA - SUPPORTIVE CARE, IF HGB DROPS BELOW 7 WILL TRANSFUSE ELEVATED TRIGLYCERIDES - HOLD ANTILIPEMIC AGENTS FOR NOW HYPERTENSION - DEFER TO CARDIOLOGY WITH ADJUSTMENT OF MEDICATIONS FOR AFIB ATRIAL FIBRILLATION - CHRONIC - TRANSITIONED TO ORAL MEDICATIONS - CARDIZEM AND DIGOXIN, DEFER TO CARDIOLOGY CHRONIC ANTICOAGULATION - DEFER TO CARDIOLOGY REFLUX - PPI THERAPY STARTED PHYSICAL THERAPY - STILL NOT ABLE TO DO MUCH WITH THERAPY DVT PROPHYLAXIS WITH SCD'S, LOVENOX INITIALLY STOPPED DUE TO GROSS HEMATOCHEZIA - RESTARTED ONCE GI SYMPTOMS RESOLVED. GI PROPHYLAXIS WITH PPI, TOBACCOISM - PT IS ON NICOTINE PATCHES - WILL CONTINUE ON DC OXYGEN REQUIREMENT User: Izaiah Newton RT Date: 08/20/21 07:17 Type: Respiratory Therapy Notes PATIENT WAS PLACED ON ROOM AIR SAT DROPPED TO 79% THEN PLACED ON 2 L/M OXYGEN SAT RETURNED TO 95% PATIENT UNABLE TO WALK AT THIS TIME RECOMMEND 2 L/M AT REST Addendum: 08/20/21 at 0720 by IZAIAH NEWTON RT Amended: Links added. %%%%%%%%%% Links Intervention Doc: RT Home O2 Qualify/Exercise Pulse Ox Pending Labs Laboratory Tests 08/20/21 04:20: Sodium Level 138, Potassium Level 4.1, Chloride Level 104, Carbon Dioxide Level 23, Anion Gap 11, Blood Urea Nitrogen 7, Creatinine 0.67, Estimat Glomerular Filtration Rate 91, BUN/Creatinine Ratio 10, Glucose Level 118, Calcium Level 8.8, Magnesium Level 1.9, Digoxin Level 0.67 Discharge Instructions to patient/family Please see electronic discharge instructions given to patient. Discharge Medications Reviewed and agree with Discharge Medication list on patient's Discharge Instruction sheet REMY MCELROY MD Aug 20, 2021 08:37
[2021-08-20] MEDS ORDERED: IPRA3AMP31 INH ×2 (08:46)
[2021-08-20] MEDS ORDERED: OXC5T PO (08:46)
[2021-08-20] MEDS ORDERED: MTP25TSR PO (08:46)
[2021-08-20] MEDS ORDERED: DILT180C85 PO (08:46)
[2021-08-20] MEDS ORDERED: DIGO125T18 PO (08:46)
[2021-08-20] MEDS ORDERED: POLY17PO54 PO (08:46)
[2021-08-20] MEDS ORDERED: FURO40TA4 PO (08:46)
[2021-08-20] MEDS ORDERED: POTA-169 PO (08:46)
[2021-08-20] MEDS ORDERED: ACET-2650 PO (08:46)
--- NOTE | 2021-08-20 08:49 | Discharge Inst-Skilled Nursing ---
Discharge Inst-Skilled NF Reconcile Patient Problems Problems Reviewed?: Yes Patient Instructions Patient Problems: ACUTE NECROTIZING PANCREATITIS SEPSIS EPIGASTRIC ABDOMINAL PAIN ELEVATED LIVER ENZYMES ELEVATED TRIGLYCERIDES HYPERTENSION ATRIAL FIBRILLATION - CHRONIC CHRONIC ANTICOAGULATION REFLUX GROGGY LACTIC ACIDOSIS COPD WITH EMPHYSEMA DYSPNEA Goal: IMPROVED STRENGTH AND MOVE HOME WITH HOME HEALTH Consult/Follow Up/Orders Follow Up Appt.: 1 WK JANN, 1 WK LILIBETH, 2 WK SURGEON Skilled NF Admit to: [facility] Certification (SNF) I certify that SNF services are required to be given on an inpatient basis because of the above named patient's need for intermediate care on a continuing basis for the conditions(s) for which he/she was receiving inpatient hospital services prior to his/her transfer to the SNF. [facility] Facility Order: Nursing Services, Regional Account Executive-Evaluate & Treat, Physical Therapy-Evaluate & Treat Oxygen Delivery Method: Nasal Cannula (2 LITERS) Oxygen Flow Rate L/min (Range): 2 Discharge Diet: Low Residue Daily Activity as Tolerated: Yes Resuscitation Status: Do Not Resuscitate New & Resume Previous Orders New & Resume Previous Orders DIGOXIN LEVEL, CBC, CMP, MAG LEVEL IN 1 WK FROM AMANDA Gonzalez Aug 20, 2021 08:46 Medication List: Active Scripts Active Tylenol Arthritis (Acetaminophen) 650 Mg Tablet.er 650 Mg PO TID PRN Polyethylene Glycol 3350 17 Gm Powd.pack 17 Gm PO HS PRN Furosemide 40 Mg Tablet 40 Mg PO DAILY Klor-Con M20 (Potassium Chloride) 20 Meq Tab.er.prt 20 Meq PO BID Oxyir Tablet (Oxycodone HCl) 5 Mg Tab 5 Mg PO Q4H PRN Diltiazem 24Hr ER (Diltiazem HCl) 180 Mg Cap.er.24h 360 Mg PO DAILY Metoprolol Succinate 25 Mg Tab.er.24h 25 Mg PO DAILY Digox (Digoxin) 125 Mcg Tablet 0.125 Mg PO DAILY Iprat-Albut 0.5-3(2.5) mg/3 ml (Ipratropium/Albuterol Sulfate) 3 Ml Ampul.neb 3 Ml INH RTQ2H PRN Iprat-Albut 0.5-3(2.5) mg/3 ml (Ipratropium/Albuterol Sulfate) 3 Ml Ampul.neb 3 Ml INH RTQID Reported Dicyclomine HCl 10 Mg Capsule 10 Mg PO TID Vitamin D3 (Cholecalciferol (Vitamin D3)) 50 Mcg Capsule 50 Mcg PO BID Calcium Carbonate 500 Mg Tablet 500 Mg PO BID Eliquis (Apixaban) 5 Mg Tablet 5 Mg PO BID Aspirin 81 Mg Tab.chew 81 Mg PO DAILY Metoprolol Tartrate 100 Mg Tablet 100 Mg PO BID Valsartan 320 Mg Tablet 320 Mg PO DAILY Amlodipine Besylate 10 Mg Tablet 10 Mg PO DAILY Atorvastatin Calcium 10 Mg Tablet 10 Mg PO Q48H Pantoprazole Sodium 40 Mg Tablet.dr 40 Mg PO DAILY Fish Oil 1,000 mg Capsule ([place] 3 Polyunsat Fatty Acids) 1,000 Mg Cap 1,000 Mg PO BID Multivitamins (Multivitamin) 1 Each Tablet 1 Tab PO DAILY Lab results: Laboratory Tests Test 08/19/21 11:25 08/20/21 04:20 Range/Units SARS-CoV-2 RNA (RT-PCR) Not Detected Not Detecte Sodium Level 138 135-145 MMOL/L Potassium Level 4.1 3.6-5.0 MMOL/L Chloride Level 104 98-107 MMOL/L Carbon Dioxide Level 23 21-32 MMOL/L Anion Gap 11 5-14 MMOL/L Blood Urea Nitrogen 7 7-18 MG/DL Creatinine 0.67 0.60-1.30 MG/DL Estimat Glomerular Filtration Rate 91 BUN/Creatinine Ratio 10 Glucose Level 118 H 70-105 MG/DL Calcium Level 8.8 8.5-10.1 MG/DL Magnesium Level 1.9 1.6-2.4 MG/DL Digoxin Level 0.67 L 0.80-2.00 NG/ML My orders: Orders - REMY GONZALEZ MD Restrict Fat <30 Pct Of Oscar (08/19/21 Breakfast) Furosemide Injection (Lasix Injection) (08/19/21 09:30) Catheter(Urinary) Discontinue (08/19/21 12:00) Covid 19 Inhouse Test (08/19/21 08:53) Patient Visit (08/19/21 ) Functional Activities, Ea 15 (08/19/21 ) Transfer - Bed/Room/Location (08/19/21 15:56) Attending Discharge Inpt/Inobs (08/20/21 08:37) REMY GONZALEZ MD Aug 20, 2021 08:48
[2021-08-20] MEDS ORDERED: FUROSEMIDE 40 MG (LASIX) TAB PO SCH (09:00)
--- NOTE | 2021-08-20 09:10 | Physical Therapy Daily Note ---
PT Daily Note-Current Subjective Patient reports 7/10 pain in her low back, which she reports is present most of the time. Transfers SCALE: Activities may be completed with or without assistive devices. 3-Apoyuogyxr-ppfvoxn completes the activity by him/herself with no assistance from a helper. 5-Set-up or Clean-up Assistance-helper sets up or cleans up; patient completes activity. [place] assists only prior to or following the activity. 4-Supervision or Touching Assistance-helper provides verbal cues and/or touching/steadying and/or contact guard assistance as patient completes activity. Assistance may be provided throughout the activity or intermittently. 3-Partial/Moderate Assistance-helper does LESS THAN HALF the effort. [place] lifts, holds or supports trunk or limbs, but provides less than half the effort. 2-Substantial/Maximal Assistance-helper does MORE THAN HALF the effort. [place] lifts or holds trunk or limbs and provides more than half the effort. 8-Ysxrpjkeb-dpnxlh does ALL the effort. Patient does none of the effort to complete the activity. Or, the assistance of 2 or more helpers is required for the patient to complete the activity. If activity was not attempted, code reason: 7-Patient Refused. 9-Not Applicable-not attempted and the patient did not perform the activity before the current illness, exacerbation or injury. 10-Not Attempted due to Environmental Limitations-(lack of equipment, weather restraints, etc.). 88-Not Attempted due to Medical Conditions or Safety Concerns. Roll Left & Right (QC): 4 Sit to Lying (QC): 4 Lying to Sitting/Side of Bed(Q: 4 Sit to Stand (QC): 3 Gait Training Does the Patient Walk?: No and Walking Goal IS indicated Patient performed sidestepping of 2-3 feet to achieve higher position in bed. Exercises Supine Ex: Ankle pumps, Quad Set, Glut sets, Heel Slides, Short Arc Quads, Straight leg raise, Hip abd/add Supine Reps: 10 Treatments Patient performed bed mobility and transfers with CGA to min A. Patient performed sit to stand x 2 with static standing balance x 1-2 minutes each time. Assessment Current Status: Fair Progress Patient demonstrates improved tolerance to activity. Patient performs LE therapeutic exercise as listed above. Patient performs all observed bed mobility and transfers with CGA to min A. Patient is able to perform sit to stand x 2 for 1-2 minutes each. Patient O2 observed frequently and dropped between 76% and 98%, however the highs and lows were inconsistent with activity and appeared to be more from a loose connection. Nurse notified and aware of fluctuating O2 sats, patient on .5 L O2 upon PT arrival and departure. Patient in bed post treatment with all needs met, nurse notified, call light in hand, and friend in the room. 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 Time Frame: Aug 30, 2021 Roll Left & Right (QC): 4 Sit to Lying (QC): 4 Lying-Sitting on Side/Bed(QC): 4 Sit to Stand (QC): 4 Chair/Eag-bu-Tzpvd Xfer(QC): 4 Walk 10 feet (QC): 3 PT Plan Treatment/Plan Treatment Plan: Continue Plan of Care Treatment Plan: Bed Mobility, Education, Functional Activity Serena, Functional Strength, Gait, Safety, Therapeutic Exercise, Transfers Treatment Duration: Aug 30, 2021 Frequency: 6 times per week Estimated Hrs Per Day: .25 hour per day Patient and/or Family Agrees t: Yes Safety Risks/Education Patient Education: Transfer Techniques, Safety Issues Teaching Recipient: Patient, Friend Teaching Methods: Demonstration, Discussion Response to Teaching: Verbalize Understanding, Return Demonstration Time/GCodes Time In: 0830 Time Out: 0900 Total Billed Treatment Time: 30 Total Billed Treatment Visit, Ex, CHARLI NATION PT Aug 20, 2021 09:10
[2021-08-20] MEDS ORDERED: APIX2.5T PO (09:12)
[2021-08-20 09:30] VITALS: BP 124/57
[2021-08-20] MEDS: PANTOPRAZOLE 40 MG (PROTONIX) TAB PO SCH (09:33)
[2021-08-20] MEDS: KCL 20 MEQ TAB (K-DUR) PO SCH (09:33)
[2021-08-20] MEDS: DIGOXIN 0.125 MG (LANOXIN) TAB PO SCH (09:33)
[2021-08-20] MEDS: ENOXAPARIN 40 MG/0.4 ML (LOVENOX) SYR SC SCH (09:34)
[2021-08-20 11:14] VITALS: BP 124/57
--- NOTE | 2021-08-20 11:46 | Progress Note - Cardiology ---
Cardiology SOAP Progress Note Subjective: Gen malaise and weakness modestly improved No cp or palp or syncope Shortness of breath with activity No n/v/d Objective: I&O/Vital Signs 08/20/21 08/20/21 08/20/21 08/20/21 00:00 00:05 01:00 04:00 Temp 36.2 Pulse 134 125 117 Resp 20 15 B/P (MAP) 140/91 (107) 111/73 (86) Pulse Ox 97 97 O2 Delivery Room Air Room Air 08/20/21 08/20/21 08/20/21 08/20/21 04:00 07:00 07:23 08:48 Temp 36.7 Pulse 136 Pulse Ox 95 O2 Delivery Nasal Cannula Nasal Cannula O2 Flow Rate 2.00 08/20/21 08/20/21 08/20/21 08/20/21 09:00 09:30 10:50 11:14 Temp 36.7 Pulse 107 107 Resp 20 20 B/P (MAP) 124/57 (79) 124/57 Pulse Ox 98 100 100 O2 Delivery Nasal Cannula Room Air Nasal Cannula Nasal Cannula O2 Flow Rate 1.00 0.50 0.50 08/20/21 00:00 Intake Total 800 ml Output Total 3100 ml Balance -2300 ml Weight (Pounds): 186 Weight (Ounces): 9.6 Weight (Calculated Kilograms): 84.850179 Constitutional: AAO x 3 Respiratory: No accessory muscle use, No respiratory distress; chest expansion is symmetric, chest is bilaterally symmetric, other (fair air entry) Cardiovascular: irregularly irregular Gastrointestional: tender, audible bowel sounds Extremities: swelling (mild to mod bilat LE swelling); No cyanosis Neurologic/Psychiatric: other (moves all her limbs equally) Skin: No rash on exposed areas, No ulcerations on exposed areas Results/Procedures: Labs Laboratory Tests 08/20/21 04:20: Sodium Level 138, Potassium Level 4.1, Chloride Level 104, Carbon Dioxide Level 23, Anion Gap 11, Blood Urea Nitrogen 7, Creatinine 0.67, Estimat Glomerular Filtration Rate 91, BUN/Creatinine Ratio 10, Glucose Level 118H, Calcium Level 8.8, Magnesium Level 1.9, Digoxin Level 0.67L Microbiology 08/07/21 Gram Stain - Final, Complete 08/07/21 Sputum Culture - Final, Complete Usual upper respiratory erika YEAST Gram Negative Bacillus 1 08/06/21 Blood Culture - Final, Complete No growth Laboratory Tests 08/20/21 04:20 A/P: Assessment: Acute necrotizing pancreatitis with possible pseudocyst, questionable perforation - Managed by surgery/medical services - Awaiting possible transfer to a tertiary care center - management per medical services Abdominal pain - secondary to above Hypokalemia - replace PAF - Atrial fibrillation with rapid ventricular response. - OAC currently being withheld - resume JONNIE d/t risk of CVA when deemed safe per medical/surgical services Ac diastolic CHF due to A Fib with RVR CAD - Mild coronary artery disease per cardiac catheterization done in August 2017. - Last stress test was done in March 2021 showing no evidence of active ischemia. Ejection fraction 68%. - Echocardiogram was done in March 2021 showing normal LV size with EF 60 to 65%, mildly dilated left atrium, mitral regurgitation, bicuspid morphology of the aortic valve, aortic valve sclerosis. 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 - (neuroendocrine carcinoma), being followed by [facility] Plan: Continue current regimen for rate control OAC resumed today I discussed her case with Dr Gonzalez today TABITHA FORTE MD FACP [facility] Aug 20, 2021 11:46
== END 2021-08-20 11:30 | DRG 871 ==
LOC: EDUNIT# 04:03 → ER 04:05 → 4TH 05:35 → ICU 08-07 09:46 → CSD 08-07 09:55
PROVIDERS: ADMIT Family Medicine; ATTEND Family Medicine
DX: A41.89 Other specified sepsis (principal); K85.91 Acute pancreatitis with uninfected necrosis, unspecified; I50.31 Acute diastolic (congestive) heart failure; E87.2 Acidosis; I48.0 Paroxysmal atrial fibrillation; J43.9 Emphysema, unspecified; I25.10 Atherosclerotic heart disease of native coronary artery without angina pectoris; Z66 Do not resuscitate; Z20.822 Contact with and (suspected) exposure to COVID-19; I10 Essential (primary) hypertension; R74.01 Elevation of levels of liver transaminase levels; E78.1 Pure hyperglyceridemia; D64.9 Anemia, unspecified; E87.6 Hypokalemia; E78.5 Hyperlipidemia, unspecified; E78.00 Pure hypercholesterolemia, unspecified; I08.0 Rheumatic disorders of both mitral and aortic valves; G47.33 Obstructive sleep apnea (adult) (pediatric); F17.210 Nicotine dependence, cigarettes, uncomplicated; K21.9 Gastro-esophageal reflux disease without esophagitis; F32.A Depression, unspecified; I65.23 Occlusion and stenosis of bilateral carotid arteries; Z85.118 Personal history of other malignant neoplasm of bronchus and lung; Z79.01 Long term (current) use of anticoagulants; Z79.82 Long term (current) use of aspirin; Z88.5 Allergy status to narcotic agent; Z88.2 Allergy status to sulfonamides; Z88.8 Allergy status to other drugs, medicaments and biological substances; Z96.652 Presence of left artificial knee joint
CPT/HCPCS: 36415; 36569; 71045; 71046; 74170; 74177; 76937; 80048; 80053; 80061; 80162; 81000; 82728; 83540; 83550; 83605; 83690; 83735; 84100; 84443; 84478; 84484; 85025; 85027; 86141; 87040; 87070; 87205; 87635; 87636; 87804; 93005; 93306; 94640; 94760; 94761; 96361; 96374; 96375

== ENCOUNTER → 2021-09-26 | Outpatient (CLI) | payer MEDICARE, OTHER ==
[~2021-09-26] MED LIST changes: +ACET-2650 PO; +APIX2.5T PO; +CALC500T64 PO; +CHOL20002 PO; +DIGO125T18 PO; +DILT180C85 PO; +FURO40TA4 PO; +IPRA3AMP31 INH; +MTP25TSR PO; +OXC5T PO; +POLY17PO54 PO; +POTA-169 PO
--- NOTE | 2021-09-26 16:15 | Diagnostic Imaging Report ---
PROCEDURE: Pelvic comp/transvaginal sonogram. TECHNIQUE: Complete transabdominal and transvaginal pelvic ultrasound was performed. In addition, limited pelvic Doppler was performed. INDICATION: Postmenopausal vaginal bleeding as well as pelvic pain. Patient has had a prior partial hysterectomy. FINDINGS: Uterus is surgically absent. Vaginal cuff is unremarkable. Neither ovary was visualized. There is overlying bowel gas. No adnexal mass or free fluid is detected. IMPRESSION: Status post hysterectomy. The ovaries could not be visualized. Dictated by: Dictated on workstation # [id number]
== END ==
LOC: RAD 15:15
PROVIDERS: ATTEND Nurse Practitioner Family
DX: R10.2 Pelvic and perineal pain (principal); Z78.0 Asymptomatic menopausal state; Z90.710 Acquired absence of both cervix and uterus
CPT/HCPCS: 76830; 76856

== ENCOUNTER → 2021-11-26 | Outpatient (CLI) | payer MEDICARE, OTHER ==
--- NOTE | 2021-11-26 22:19 | Diagnostic Imaging Report ---
INDICATION: Routine screening. COMPARISON: Prior mammograms from 11/05/2020 and 07/03/2019. EXAMINATION: 2D and 3D bilateral screening mammography was performed with CAD. FINDINGS: Both breasts are heterogeneously dense, limiting the sensitivity of mammography. Nodular densities in the right breast are stable. No mass or malignant-appearing microcalcifications are seen. Axillae are unremarkable. IMPRESSION: No mammographic features suspicious for malignancy are identified. ACR BI-RADS Category 2: Benign findings. Result letter will be mailed to the patient. Note: At least 10% of breast cancer is not imaged by mammography. Dictated by: Dictated on workstation # [id number]
== END ==
LOC: RAD 09:57
PROVIDERS: ATTEND Nurse Practitioner Family
DX: Z12.31 Encounter for screening mammogram for malignant neoplasm of breast (principal)
CPT/HCPCS: 77063; 77067

== ENCOUNTER → 2022-02-04 | Outpatient (CLI) | payer MEDICARE, OTHER ==
--- NOTE | 2022-02-04 16:43 | Diagnostic Imaging Report ---
EXAMINATION: CT chest without contrast. TECHNIQUE: Multiple contiguous axial images were obtained through the chest without the use of intravenous contrast. All CT scans use one or more of the following dose optimizing techniques: automated exposure control, MA and/or KvP adjustment based on patient size and exam type or iterative reconstruction. HISTORY: HX OF LUNG CANCER COMPARISON: 01/31/2021 FINDINGS: Thyroid: The thyroid is normal. Mediastinum: Heart size is enlarged with small pericardial effusion. Calcifications of the aorta and coronary vessels. Thoracic aorta is normal in caliber. No suspicious lymphadenopathy. Lungs and airways: There are background emphysematous changes of lungs without consolidation, pleural effusion, or pneumothorax. Atelectasis or scarring in the lung bases. No new suspicious pulmonary lesion. The airways are normal. Upper abdomen: The subphrenic structures are normal. Musculoskeletal: Degenerative changes of the spine without suspicious osseous lesion or compression fracture. IMPRESSION: 1. Post treatment changes of the left lung without findings of recurrent or metastatic disease within the chest. Dictated by: Dictated on workstation # [id number]
== END ==
LOC: RAD 12:15
PROVIDERS: ATTEND Internal Medicine Hematology & Oncology
DX: Z85.118 Personal history of other malignant neoplasm of bronchus and lung (principal); Z98.890 Other specified postprocedural states
CPT/HCPCS: 71250

== ENCOUNTER → 2023-02-01 | Outpatient (CLI) | payer MEDICARE, OTHER ==
--- NOTE | 2023-02-01 13:50 | Diagnostic Imaging Report ---
EXAMINATION: CT chest without contrast. TECHNIQUE: Multiple contiguous axial images were obtained through the chest without the use of intravenous contrast. All CT scans use one or more of the following dose optimizing techniques: automated exposure control, MA and/or KvP adjustment based on patient size and exam type or iterative reconstruction. HISTORY: HX OF LUNG CANCER COMPARISON: 02/04/2022 FINDINGS: Thyroid: The thyroid is normal. Mediastinum: Heart size is normal without significant pericardial effusion. Calcifications of the aorta and coronary vessels. Thoracic aorta is normal in caliber. No suspicious lymphadenopathy. Lungs and airways: There are background emphysematous changes of lungs without consolidation, pleural effusion, or pneumothorax. No new suspicious pulmonary lesion. The airways are normal. Prominent scarring within the left lung, unchanged likely posttreatment changes. Upper abdomen: The subphrenic structures are normal. Musculoskeletal: Degenerative changes of the spine without suspicious osseous lesion or compression fracture. IMPRESSION: 1. Posterior changes of the left lung without evidence of these current or metastatic disease within the chest. Dictated by: Dictated on workstation # [id number]
== END ==
LOC: RAD 11:22
PROVIDERS: ATTEND Internal Medicine Hematology & Oncology
DX: R91.8 Other nonspecific abnormal finding of lung field (principal); Z85.118 Personal history of other malignant neoplasm of bronchus and lung
CPT/HCPCS: 71250

== ENCOUNTER → 2023-02-15 | Outpatient (CLI) | payer MEDICARE ==
[~2023-02-15] MED LIST changes: +SENN-341 PO; -SNN187T PO
--- NOTE | 2023-02-15 16:21 | Diagnostic Imaging Report ---
INDICATION: Routine screening. COMPARISON: 11/26/2021 and 11/05/2020. TECHNIQUE: 2D and 3D bilateral screening mammography was performed with CAD. FINDINGS: Both breasts are heterogeneously dense, limiting the sensitivity of mammography. Benign nodules in the right breast are stable. No new mass or malignant-appearing microcalcifications are seen. Axillae are unremarkable. IMPRESSION: No mammographic features suspicious for malignancy are identified. ACR BI-RADS Category 2: Benign findings. Result letter will be mailed to the patient. Note: At least 10% of breast cancer is not imaged by mammography. Dictated by: Dictated on workstation # [id number]
== END ==
LOC: RAD 14:27
PROVIDERS: ATTEND Family Medicine
DX: Z12.31 Encounter for screening mammogram for malignant neoplasm of breast (principal)
CPT/HCPCS: 77063; 77067

== ENCOUNTER → 2023-04-01 | Outpatient (RCR) | payer MEDICARE ==
[~2023-04-01] MED LIST changes: +DICY-11 PO; -DICY10CA12 PO
== END | disposition home or self-care (01) ==
PROVIDERS: ATTEND Family Medicine
DX: M53.3 Sacrococcygeal disorders, not elsewhere classified (principal); M54.50 Low back pain, unspecified

== ENCOUNTER 2023-04-15 12:50 | Outpatient (RCR) | payer MEDICARE | END 2023-04-15 13:45 | disposition home or self-care (01) | PROVIDERS: ATTEND Family Medicine | DX: M53.3 Sacrococcygeal disorders, not elsewhere classified (principal); M54.50 Low back pain, unspecified ==

== ENCOUNTER → 2023-04-22 | Outpatient (CLI) | payer MEDICARE | LOC: CARD 11:39 | PROVIDERS: ATTEND Nurse Practitioner Family | DX: I48.91 Unspecified atrial fibrillation (principal) | CPT/HCPCS: 93225; 93226 ==

== ENCOUNTER → 2023-04-29 | Outpatient (CLI) | payer MEDICARE | LOC: CANPRECLI → CARD 11:24 | PROVIDERS: ATTEND Nurse Practitioner Family | DX: I51.7 Cardiomegaly (principal); I34.0 Nonrheumatic mitral (valve) insufficiency | CPT/HCPCS: 93320 ==

== ENCOUNTER → 2023-06-11 | Outpatient (CLI) | payer MEDICARE ==
[~2023-06-11] MED LIST changes: +CATHETER FLUSH 10 ML SYR IVP PRN; +REGADENOSON 0.4 MG/5 ML SYR IV ONE
[2023-06-11 08:49] VITALS: BP 132/50
--- NOTE | 2023-06-12 02:08 | STRESS TEST ---
DATE OF SERVICE: 06/11/2023 RESTING AND POST REGADENOSON TECHNETIUM-99M TETROFOSMIN SPECT CT IMAGING ORDERING PHYSICIAN: Anuja Garcia APRN. PRIMARY PHYSICIAN: Dr. Gonzalez. CLINICAL DIAGNOSIS: Wide QRS, tachycardia. Baseline images were carried out, after injection of 10.78 mCi of technetium-99m tetrofosmin. This was followed by 0.4 mg regadenoson and 30.4 mCi of technetium-99m tetrofosmin for stress imaging. The electrocardiogram showed atrial fibrillation at baseline. There was incomplete right bundle branch block. The electrocardiogram did not change significantly with the regadenoson infusion. The patient noted mild shortness of breath and cough with the regadenoson infusion. Overall, she tolerated the procedure well. Review of images at rest and following stress does not indicate any significant perfusion defects consistent with myocardial ischemia or infarction. Gated images show normal global left ventricular systolic function with normal regional wall motion. Left ventricular ejection fraction is calculated to be 84%. CONCLUSIONS: 1. No evidence of significant myocardial ischemia or infarction on this study. 2. Normal to hyperdynamic left ventricular systolic function without regional wall motion abnormality and with a calculated ejection fraction of 84%. Job ID: [id number] DocumentID: [id number] Dictated Date: 06/11/2023 18:31:09 Director Of Acquisitions Date: 06/11/2023 23:42:00 Dictated By: TABITHA FORTE MD; MELLO; FACP; FACC;
== END ==
LOC: CARD 07:45
PROVIDERS: ATTEND Nurse Practitioner Family
DX: I47.20 Ventricular tachycardia, unspecified (principal)
CPT/HCPCS: 78452; 93017; A9502